=== PATIENT | male | born 1995 | race Caucasian/White ===

== ENCOUNTER 2019-12-21 11:21 | Observation (INO) | payer MEDICARE, MEDICAID, SELFPAY ==
[2019-12-21] VITALS (25 sets, daily range): BP systolic 78–135; BP diastolic 34–73; PULSE 67–138; RESP 14–30; TEMP 36.8; O2SAT 96–100; BMI 23.3
--- NOTE | 2019-12-21 11:38 | XR_ITS ---
WS: [id number] PORTABLE CHEST HISTORY: cough COMPARISON: 07/09/2019 Lungs are clear and well expanded. No pleural effusion or pneumothorax. Cardiac size: Normal. Mediastinum/Aorta: Normal mediastinum. No osseous abnormality seen. XR/XR chest 1V portable [id number] IMPRESSION: Unremarkable portable chest.
[2019-12-21 11:50] LABS: ABG PCO2 27.6 mmHg (35-45); ABG PH Result 7.23 (7.35-7.45); Base Excess ABG -14.4 mmol/L (-2.0-2.0); Blood Gas Allen Test Pos; Blood Gas Sample Site Radial, left; Blood Gas Sample Type Arterial; HCO3 ABG 11.5 mmol/L (22-26); Oxygen Device ROOM AIR
--- NOTE | 2019-12-21 11:52 | ED_ITS ---
HPI - Nausea/Vomiting/Diarrhea General: Chief complaint: Nausea/Vomiting/Diarrhea Stated complaint: POSS DKA Time Seen by Provider: 12/21/19 11:37 History of Present Illness: HPI Narrative: Salvatore is a 24-year-old male well-known to the ER. Came in today with nausea and vomiting and feeling like he is in diabetic ketoacidosis. He denies any diarrhea or fever. He denies any hematic emesis. He states his blood sugars have been erratic and he is currentl y using insulin pump. He denies cough, chest pain, fever or chills. He denies any other complaints or concerns. The patient has had DKA multiple times in the past. He states this is exactly what he feels like when he is in DKA. He felt fine yesterday but woke up with the symptoms this morning. Associated nausea: Yes Associated symtoms: Reports nausea; Denies altered mental status, change in vision, chest pain, diaphoresis, dizziness, dysuria, fatigue, headache(s), malaise, palpitations or syncope Review of Systems General: Reports: other (negative unless marked) Const: Reports: chills; Denies: fever, body aches, fatigue, malaise or diaphoresis Eyes: Denies: change in vision or blurry vision ENMT: Denies: throat pain, painful swallowing, hoarseness, ear pain, ear discharge, Change in hearing or nasal discharge Card: Denies: chest pain, palpitations, irregular heart rhythm, syncope, pre- syncope, shortness of breath on exertion or shortness of breath when lying down Resp: Reports: shortness of breath; Denies: productive cough, non-productive cough, wheezing, coughing up blood or chest congestion GI: Reports: abdominal pain, nausea and vomiting; Denies: vomiting blood, coffee grounds in vomit, diarrhea, constipation, cramping, blood in stool or black tarry stool : Denies: flank pain, difficulty urinating, painful urination, urinary frequency, urinary urgency, decreased urine ouput, urinary incontinence or blood in urine Musc: Denies: neck pain, back pain, extremity pain, extremity swelling, joint pain, joint swelling, joint warmth or joint stiffness Skin/Breast: Denies: rash, skin tenderness or yellow skin Neuro: Denies: headache, numbness in extremities, weakness in extremities, changes in sensation, lack of coordination, difficulty walking, dizziness, vertigo or confusion Endo: Denies: excessive thirst, tired all the time, cold intolerance, excessive sweating, flushing or hot flashes Garett/Lymph: Denies: easy bruising, easy bleeding, petechiae or enlarged lymph nodes All/Imm: Denies: hives, throat swelling, tongue swelling, facial swelling or acute wheezing PFSH ED PFSH: Medical History (Updated 12/21/19 @ 14:21 by Terry Hines MD) Diabetes mellitus GERD (gastroesophageal reflux disease) Type 1 diabetes Family History (Updated 12/21/19 @ 14:19 by Terry Hines MD) Other Diabetes Social History (Updated 12/21/19 @ 14:20 by Terry Hines MD) Smoking and tobacco status: former smoker Alcohol intake: never Substance/Drug Use: never Physical Exam Const: COMMON NORMALS: no apparent distress, oriented x3, no limitations, healthy appearing and well nourished EXAM LIMITATIONS: no altered mental status GENERAL APPEARANCE: cooperative, well kempt and well developed ORIENTATION/CONSCIOUSNESS: Yes awake HENMT: COMMON NORMALS: normocephalic, head/scalp atraumatic, hearing grossly normal bilaterally, external ears normal, EAC's normal, external nose normal and moist oral mucous membranes HEAD & SCALP: normal to inspection, normocephalic and atraumatic FACE & SINUS: normal facial exam and face symmetric NOSE: external nose normal and nares normal EXTERNAL EAR: Yes external ears normal EXTERNAL AUDITORY CANAL: EAC's normal MOUTH: oral and palatal mucosa normal and tongue normal Eye: COMMON NORMALS: PERRL, EOMs intact bilaterally, conjunctivae normal and no scleral icterus GENERAL EYE: normal appearance of both eyes and normal light reflex CONJUNCTIVA: Yes conjunctivae normal SCLERA: sclerae normal CORNEA: Yes corneas normal PUPIL: Yes PERRL DIRECT OPHTHALMOSCOPY: Yes normal light reflex Neck/C-Spine: COMMON NORMALS: full ROM, no lymphadenopathy, supple, no meningeal signs and no JVD GENERAL: Yes normal visual inspection and Yes trachea midline CERVICAL SPINE: Yes cervical ROM normal Chest: COMMONS NORMALS: inspection of chest normal and palpation of chest normal Resp: COMMON NORMALS: normal respiratory effort, no retractions, no use of accessory muscles and clear to auscultation bilaterally EFFORT & INSPECTION: Yes able to speak in complete sentences and Yes tachypneic AUSCULTATION: clear to auscultation bilaterally Cardio: COMMON NORMALS: no JVD, regular rate, regular rhythm, S1 normal heart sound, S2 normal heart sound, no gallops, no clicks, no murmurs and no rub JUGULAR VENOUS DISTENTION: no JVD RATE: regular rate RHYTHM: regular rhythm HEART SOUNDS: S1 normal and S2 normal GI: COMMON NORMALS: soft to palpation, no hepatosplenomegaly and no masses INSPECTION: Yes normal to inspection PALPATION: Yes soft, Yes tender (Mild diffusely) and Yes no hepatosplenomegaly : COMMON NORMALS: Yes no CVA tenderness BLADDER/KIDNEY EXAM: Yes no CVA tenderness Back/Pelvis: COMMON NORMALS: no CVA tenderness, thoracic and lumbar spine normal to inspection, no thoracic nor lumbar tenderness and thoraco-lumbar ROM normal Extremity: COMMON NORMALS: normal to inspection, full ROM, normal capillary refill, no joint enlargement, no clubbing, cyanosis or edema and no calf tenderness Neuro: COMMON NORMALS: oriented x3, CN's II-XII intact bilaterally, moves all extremities, no focal motor deficits and no sensory deficits noted MENINGEAL SIGNS: Yes no meningeal signs Psych: COMMON NORMALS: mental status grossly normal, thought process normal, cooperative, affect normal, speech normal and activity/motor behavior normal APPEARANCE: Yes well kempt SPEECH: Yes normal speech THOUGHT PROCESS: normal thought process Skin: COMMON NORMALS: no rashes or lesions noted, skin turgor normal, no jaundice, no petechiae and no mottling GENERAL SKIN EXAM: no rashes or lesions noted and turgor normal Course Vital Signs: Vital signs: Vital Signs Temperature 98.2 F 12/21/19 12:18 Pulse Rate 111 H 12/21/19 20:00 Respiratory Rate 23 H 12/21/19 20:00 Blood Pressure 95/47 12/21/19 20:00 Pulse Oximetry 96 12/21/19 14:58 MDM - Nausea/Vomiting/Diarrhea MDM Narrative: Medical decision making narrative: The case was reviewed with Dr. Hines. The patient comes in in DKA as he has in the past several times. We removed his insulin pump and we will start the hospital's DKA protocol. Patient be admitted to the ICU. Further care will be performed by Dr. Hines. Lab Data: Attestation: I reviewed the patient's lab results. Labs: Lab Results 12/21/19 12/21/19 12/21/19 Range/Units 11:38 11:46 12:10 WBC (4.0-10.0) 10^3/ uL RBC (4.1-5.3) 10^6/u L Hgb (11.7-16.6) g/dL Hct (42.0-52.0) % MCV (80-94) fL MCH (28.0-34.0) pg MCHC (30.0-36.0) g/dL RDW (12.1-15.1) % Plt Count (130-400) 10^3/c mm MPV (7.4-10.4) fL Neut % (Auto) % Lymph % (Auto) % [place] % (Auto) % Eos % (Auto) % Baso % (Auto) % Neut # (Auto) (1.8-7.7) 10^3/u L Lymph # (Auto) (0.8-4.8) 10^3/u L [place] # (Auto) (0.2-0.9) 10^3/u L Eos # (Auto) (0.0-0.8) 10^3/u L Baso # (Auto) (0.0-0.1) 10^3/u L Nucleated RBC % (a uto) % Nucleated RBCs # /100WBC Specimen Type Arterial Sample Site Radial, left ABG pH 7.23 L (7.35-7.45) ABG pCO2 27.6 L (35-45) mmHg ABG pO2 96.0 (80.0-100.0) mmH g ABG HCO3 11.5 L (22-26) mmol/L ABG Base Excess -14.4 L (-2.0-2.0) mmol/ L Hasmukh Test Pos Hematocrit 52.0 (42-52) % O2 Delivery Device Room air FiO2 21.0 % Energy Administrator ID cak Sodium (136-145) mmol/L Potassium (3.5-5.1) mmol/L Chloride (98-107) mmol/L Carbon Dioxide (22-29) mmol/L Anion Gap (5-19) BUN (6-20) mg/dL Creatinine (0.7-1.2) mg/dL GFR Calculation (90-130) mL/min Glucose (65-115) mg/dL POC Glucose 493 (70-110) mg/dL Calculated Osmolal ity (285-295) mOsm/k g Lactic Acid (0.5-2.2) mmol/L Calcium (8.5-10.5) mg/dL Magnesium (1.7-2.3) mg/dL Total Bilirubin (0.15-1.2) mg/dL AST (0-40) U/L ALT (0-41) U/L Alkaline Phosphata se (40-130) IU/L Troponin T Baselin e (0-15) ng/mL Total Protein (6.6-8.7) g/dL Albumin (3.5-5.2) g/dL Globulin (1.3-4.6) g/dL Lipase (13-60) U/L Urine Color (Yellow) Urine Appearance (CLEAR) Urine pH (5-7) Ur Specific Gravit y (1.005-1.030) Urine Protein (Negative) Urine Glucose (UA) (Normal) Urine Ketones (Negative) Urine Blood (Negative) Urine Nitrate (Negative) Urine Bilirubin (NEGATIVE) Urine Urobilinogen (Negative) mg/dL Ur Leukocyte Mini ase (Negative) Urine RBC (0-2) /hpf Urine WBC (0-5) /hpf Ur Squamous Epith Cells (0-5) Urine Bacteria (NONE) Urine Opiates Scre en (Negative) ng/mL Ur Barbiturates Sc reen (Negative) ng/mL Ur Phencyclidine S crn (Negative) ng/mL Ur Amphetamines Sc reen (Negative) ng/mL U Benzodiazepines Scrn (Negative) ng/mL Urine Cocaine Scre en (Negative) ng/mL U Marijuana (THC) Screen (Negative) ng/mL Ethyl Alcohol (0-10) mg/dL Serum Ketones (Negative) H. pylori IgG Anti body Negative (Negative) 12/21/19 12/21/19 12/21/19 Range/Units 12:10 12:10 12:10 WBC 14.8 H (4.0-10.0) 10^3/ uL RBC 5.48 H (4.1-5.3) 10^6/u L Hgb 16.5 (11.7-16.6) g/dL Hct 51.3 (42.0-52.0) % MCV 93.6 (80-94) fL MCH 30.1 (28.0-34.0) pg MCHC 32.2 (30.0-36.0) g/dL RDW 11.9 L (12.1-15.1) % Plt Count 249 (130-400) 10^3/c mm MPV 10.2 (7.4-10.4) fL Neut % (Auto) 93.8 % Lymph % (Auto) 2.8 % [place] % (Auto) 2.6 % Eos % (Auto) 0.0 % Baso % (Auto) 0.3 % Neut # (Auto) 13.9 H (1.8-7.7) 10^3/u L Lymph # (Auto) 0.4 L (0.8-4.8) 10^3/u L [place] # (Auto) 0.4 (0.2-0.9) 10^3/u L Eos # (Auto) 0.0 (0.0-0.8) 10^3/u L Baso # (Auto) 0.0 (0.0-0.1) 10^3/u L Nucleated RBC % (a uto) 0 % Nucleated RBCs # 0.0 /100WBC Specimen Type Sample Site ABG pH (7.35-7.45) ABG pCO2 (35-45) mmHg ABG pO2 (80.0-100.0) mmH g ABG HCO3 (22-26) mmol/L ABG Base Excess (-2.0-2.0) mmol/ L Hasmukh Test Hematocrit (42-52) % O2 Delivery Device FiO2 % Energy Administrator ID Sodium 132 L (136-145) mmol/L Potassium 5.4 H (3.5-5.1) mmol/L Chloride 90 L (98-107) mmol/L Carbon Dioxide 10 L (22-29) mmol/L Anion Gap 37.4 H (5-19) BUN 26 H (6-20) mg/dL Creatinine 1.2 (0.7-1.2) mg/dL GFR Calculation 75.7 L (90-130) mL/min Glucose 534 H* (65-115) mg/dL POC Glucose (70-110) mg/dL Calculated Osmolal ity 295 (285-295) mOsm/k g Lactic Acid 3.8 H (0.5-2.2) mmol/L Calcium 10.0 (8.5-10.5) mg/dL Magnesium 2.2 (1.7-2.3) mg/dL Total Bilirubin 1.2 (0.15-1.2) mg/dL AST 20 (0-40) U/L ALT 16 (0-41) U/L Alkaline Phosphata se 59 (40-130) IU/L Troponin T Baselin e (0-15) ng/mL Total Protein 7.6 (6.6-8.7) g/dL Albumin 4.9 (3.5-5.2) g/dL Globulin 2.7 (1.3-4.6) g/dL Lipase 7 L (13-60) U/L Urine Color (Yellow) Urine Appearance (CLEAR) Urine pH (5-7) Ur Specific Gravit y (1.005-1.030) Urine Protein (Negative) Urine Glucose (UA) (Normal) Urine Ketones (Negative) Urine Blood (Negative) Urine Nitrate (Negative) Urine Bilirubin (NEGATIVE) Urine Urobilinogen (Negative) mg/dL Ur Leukocyte Mini ase (Negative) Urine RBC (0-2) /hpf Urine WBC (0-5) /hpf Ur Squamous Epith Cells (0-5) Urine Bacteria (NONE) Urine Opiates Scre en (Negative) ng/mL Ur Barbiturates Sc reen (Negative) ng/mL Ur Phencyclidine S crn (Negative) ng/mL Ur Amphetamines Sc reen (Negative) ng/mL U Benzodiazepines Scrn (Negative) ng/mL Urine Cocaine Scre en (Negative) ng/mL U Marijuana (THC) Screen (Negative) ng/mL Ethyl Alcohol < 10 (0-10) mg/dL Serum Ketones (Negative) H. pylori IgG Anti body (Negative) 12/21/19 12/21/19 12/21/19 Range/Units 12:10 12:10 12:35 WBC (4.0-10.0) 10^3/ uL RBC (4.1-5.3) 10^6/u L Hgb (11.7-16.6) g/dL Hct (42.0-52.0) % MCV (80-94) fL MCH (28.0-34.0) pg MCHC (30.0-36.0) g/dL RDW (12.1-15.1) % Plt Count (130-400) 10^3/c mm MPV (7.4-10.4) fL Neut % (Auto) % Lymph % (Auto) % [place] % (Auto) % Eos % (Auto) % Baso % (Auto) % Neut # (Auto) (1.8-7.7) 10^3/u L Lymph # (Auto) (0.8-4.8) 10^3/u L [place] # (Auto) (0.2-0.9) 10^3/u L Eos # (Auto) (0.0-0.8) 10^3/u L Baso # (Auto) (0.0-0.1) 10^3/u L Nucleated RBC % (a uto) % Nucleated RBCs # /100WBC Specimen Type Sample Site ABG pH (7.35-7.45) ABG pCO2 (35-45) mmHg ABG pO2 (80.0-100.0) mmH g ABG HCO3 (22-26) mmol/L ABG Base Excess (-2.0-2.0) mmol/ L Hasmukh Test Hematocrit (42-52) % O2 Delivery Device FiO2 % Energy Administrator ID Sodium (136-145) mmol/L Potassium (3.5-5.1) mmol/L Chloride (98-107) mmol/L Carbon Dioxide (22-29) mmol/L Anion Gap (5-19) BUN (6-20) mg/dL Creatinine (0.7-1.2) mg/dL GFR Calculation (90-130) mL/min Glucose (65-115) mg/dL POC Glucose (70-110) mg/dL Calculated Osmolal ity (285-295) mOsm/k g Lactic Acid (0.5-2.2) mmol/L Calcium (8.5-10.5) mg/dL Magnesium (1.7-2.3) mg/dL Total Bilirubin (0.15-1.2) mg/dL AST (0-40) U/L ALT (0-41) U/L Alkaline Phosphata se (40-130) IU/L Troponin T Baselin e 12 (0-15) ng/mL Total Protein (6.6-8.7) g/dL Albumin (3.5-5.2) g/dL Globulin (1.3-4.6) g/dL Lipase (13-60) U/L Urine Color Straw (Yellow) Urine Appearance Clear (CLEAR) Urine pH 5 (5-7) Ur Specific Gravit y 1.020 (1.005-1.030) Urine Protein Neg (Negative) Urine Glucose (UA) 4+ H (Normal) Urine Ketones 2+ H (Negative) Urine Blood Neg (Negative) Urine Nitrate Negative (Negative) Urine Bilirubin Neg (NEGATIVE) Urine Urobilinogen Norm (Negative) mg/dL Ur Leukocyte Mini ase Negative (Negative) Urine RBC None (0-2) /hpf Urine WBC None (0-5) /hpf Ur Squamous Epith Cells None (0-5) Urine Bacteria Trace (NONE) Urine Opiates Scre en (Negative) ng/mL Ur Barbiturates Sc reen (Negative) ng/mL Ur Phencyclidine S crn (Negative) ng/mL Ur Amphetamines Sc reen (Negative) ng/mL U Benzodiazepines Scrn (Negative) ng/mL Urine Cocaine Scre en (Negative) ng/mL U Marijuana (THC) Screen (Negative) ng/mL Ethyl Alcohol (0-10) mg/dL Serum Ketones Positive H (Negative) H. pylori IgG Anti body (Negative) 12/21/19 Range/Units 12:35 WBC (4.0-10.0) 10^3/ uL RBC (4.1-5.3) 10^6/u L Hgb (11.7-16.6) g/dL Hct (42.0-52.0) % MCV (80-94) fL MCH (28.0-34.0) pg MCHC (30.0-36.0) g/dL RDW (12.1-15.1) % Plt Count (130-400) 10^3/c mm MPV (7.4-10.4) fL Neut % (Auto) % Lymph % (Auto) % [place] % (Auto) % Eos % (Auto) % Baso % (Auto) % Neut # (Auto) (1.8-7.7) 10^3/u L Lymph # (Auto) (0.8-4.8) 10^3/u L [place] # (Auto) (0.2-0.9) 10^3/u L Eos # (Auto) (0.0-0.8) 10^3/u L Baso # (Auto) (0.0-0.1) 10^3/u L Nucleated RBC % (a uto) % Nucleated RBCs # /100WBC Specimen Type Sample Site ABG pH (7.35-7.45) ABG pCO2 (35-45) mmHg ABG pO2 (80.0-100.0) mmH g ABG HCO3 (22-26) mmol/L ABG Base Excess (-2.0-2.0) mmol/ L Hasmukh Test Hematocrit (42-52) % O2 Delivery Device FiO2 % Energy Administrator ID Sodium (136-145) mmol/L Potassium (3.5-5.1) mmol/L Chloride (98-107) mmol/L Carbon Dioxide (22-29) mmol/L Anion Gap (5-19) BUN (6-20) mg/dL Creatinine (0.7-1.2) mg/dL GFR Calculation (90-130) mL/min Glucose (65-115) mg/dL POC Glucose (70-110) mg/dL Calculated Osmolal ity (285-295) mOsm/k g Lactic Acid (0.5-2.2) mmol/L Calcium (8.5-10.5) mg/dL Magnesium (1.7-2.3) mg/dL Total Bilirubin (0.15-1.2) mg/dL AST (0-40) U/L ALT (0-41) U/L Alkaline Phosphata se (40-130) IU/L Troponin T Baselin e (0-15) ng/mL Total Protein (6.6-8.7) g/dL Albumin (3.5-5.2) g/dL Globulin (1.3-4.6) g/dL Lipase (13-60) U/L Urine Color (Yellow) Urine Appearance (CLEAR) Urine pH (5-7) Ur Specific Gravit y (1.005-1.030) Urine Protein (Negative) Urine Glucose (UA) (Normal) Urine Ketones (Negative) Urine Blood (Negative) Urine Nitrate (Negative) Urine Bilirubin (NEGATIVE) Urine Urobilinogen (Negative) mg/dL Ur Leukocyte Mini ase (Negative) Urine RBC (0-2) /hpf Urine WBC (0-5) /hpf Ur Squamous Epith Cells (0-5) Urine Bacteria (NONE) Urine Opiates Scre en Negative (Negative) ng/mL Ur Barbiturates Sc reen Negative (Negative) ng/mL Ur Phencyclidine S crn Negative (Negative) ng/mL Ur Amphetamines Sc reen Negative (Negative) ng/mL U Benzodiazepines Scrn Negative (Negative) ng/mL Urine Cocaine Scre en Negative (Negative) ng/mL U Marijuana (THC) Screen Negative (Negative) ng/mL Ethyl Alcohol (0-10) mg/dL Serum Ketones (Negative) H. pylori IgG Anti body (Negative) Imaging Data^: CXR: My impression: No acute cardiopulmonary findings. EKG Data^: EKG 1: Attestation: I personally reviewed and interpreted this EKG as follows: EKG interpretation date: 12/21/19 EKG interpretation time: 12:03 Interpretation: Normal sinus rhythm at 105 beats a minute, incomplete right bundle branch block, normal intervals, no blocks. Discharge Plan Discharge Patient Disposition: Admitted As Inpatient Admit Provider: Terry Hines Clinical Impression: Diabetic ketoacidosis Qualifiers: Diabetes mellitus type: type 1 Diabetes mellitus complication detail: without coma Qualified Code(s): E10.10 - Type 1 diabetes mellitus with ketoacidosis without coma Condition: Stable Referrals: Anastasia Sebastian APN [Family Provider] - Discharge Date/Time: 12/21/19 14:40 Coding Level of Care Code ED Preventive Medicine Specialist for g Fwd Exam Comprehensive
[2019-12-21] MEDS: sodium chloride 0.9% 1,000 ML 999 ML IV ×2 (12:13→13:18)
[2019-12-21] MEDS: ondansetron 2 mg/ML SDV 2 mL 4 MG IVP ×2 (12:14→13:04)
[2019-12-21 12:23] LABS: Basophils % 0.3 %; Hematocrit 51.3 % (42.0-52.0); Hemoglobin 16.5 g/dL (11.7-16.6); Lymphocytes # 0.4 10^3/uL (0.8-4.8); Lymphocytes % 2.8 %; Mean Corpuscular HGB Conc 32.2 g/dL (30.0-36.0); Mean Corpuscular Hemoglobin 30.1 pg (28.0-34.0); Mean Corpuscular Volume 93.6 fL (80-94); Mean Platelet Volume 10.2 fL (7.4-10.4); Monocytes # 0.4 10^3/uL (0.2-0.9); Monocytes % 2.6 %; Neutrophils # 13.9 10^3/uL (1.8-7.7); Neutrophils % 93.8 %; Nucleated Red Blood Cells % 0 %; Platelet Count 249 10^3/cmm (130-400); Red Blood Count 5.48 10^6/uL (4.1-5.3); Red Cell Distribution Width 11.9 % (12.1-15.1); White Blood Count 14.8 10^3/uL (4.0-10.0)
[2019-12-21 12:37] LABS: Ketone (Acetest) Serum Positive (Negative)
[2019-12-21 12:39] LABS: H. Pylori IgG Antibody Negative (Negative)
[2019-12-21 12:40] LABS: Alanine Aminotransferase 16 U/L (0-41); Albumin Level 4.9 g/dL (3.5-5.2); Alkaline Phosphatase 59 IU/L (40-130); Anion Gap 37.4 (5-19); Blood Urea Nitrogen 26 mg/dL (6-20); Carbon Dioxide 10 mmol/L (22-29); Chloride 90 mmol/L (98-107); Creatinine Clr Calc Pharmacy 85.0873; Globulin 2.7 g/dL (1.3-4.6); Glomerular Filtration Rate 75.7 mL/min (90-130); Lipase 7 U/L (13-60); Magnesium 2.2 mg/dL (1.7-2.3); Osmolality Calculated 295 mOsm/kg (285-295); Potassium 5.4 mmol/L (3.5-5.1); Sodium 132 mmol/L (136-145); Total Bilirubin 1.2 mg/dL (0.15-1.2); Total Protein 7.6 g/dL (6.6-8.7)
[2019-12-21 12:42] LABS: Lactic Sepsis W/Reflex 3.8 mmol/L (0.5-2.2)
[2019-12-21 12:53] LABS: Alcohol Level < 10 mg/dL (0-10)
[2019-12-21 12:55] LABS: Aspartate Amino Transferase 20 U/L (0-40)
[2019-12-21 12:59] LABS: Glucose 534 mg/dL (65-115)
[2019-12-21 13:08] LABS: Troponin(5th) Baseline 12 ng/mL (0-15)
[2019-12-21 13:11] LABS: Amphetamines Screen Urine Negative (Negative); Bacteria Urine TRACE; Barbiturates Screen Urine Negative (Negative); Benzodiazepines Screen Urine Negative (Negative); Bilirubin Urine Neg (NEGATIVE); Blood Urine Neg (Negative); Cocaine Screen Urine Negative (Negative); Glucose Urine UA 4+ (Normal); Ketones Urine 2+ (Negative); Leukocyte Esterase Urine Negative (Negative); Nitrate Urine Negative (Negative); Opiate Screen Urine Negative (Negative); PCP Screen Urine Negative (Negative); Protein Urine Neg (Negative); THC Screen Urine Negative (Negative); Urine Appearance Clear (CLEAR); Urine Color Straw (Yellow); Urobilinogen Urine Norm (Negative); pH Urine 5 (5-7)
[2019-12-21 13:12] LABS: Add Urine Culture? No
[2019-12-21] MEDS: insulin regular-human 250 UNIT in sodium chloride 0.9% 250 ML IV (13:31)
[2019-12-21 14:03] LABS: Reflex Lactate Order REFLEX LACTIC ORDERD
--- NOTE | 2019-12-21 14:15 | PM.HP ---
Providers/Chief Complaint Admitting Physician: Terry Hines MD Chief Complaint: DKA History of Present Illness Salavtore Ott is a 24 year old male who reports that since yesterday he has been having some abdominal pain, and vomiting. He has history of frequent DKA admissions, although he has not had one since July. He reports he got an insulin pump around September and has been doing better in regards to this. He reports he has not had any trouble with insulin pump, and has not run out of any of the medicine. He denies any noncompliance with it. He does not know any of the pump settings. The pump has been discontinued in the emergency department for treatment of his DKA. He reports no recent fever, cough. He reports no hematemesis, melena, hematochezia. Review of Systems General: Reports: 10 or more systems reviewed and unremarkable except in HPI and below Const: Denies: fever Eyes: Denies: change in vision ENMT: Denies: throat pain Card: Denies: chest pain Resp: Denies: shortness of breath GI: Reports: abdominal pain, nausea and vomiting : Denies: flank pain Musc: Denies: neck pain Skin/Breast: Denies: rash Neuro: Denies: headache Psych: Denies: anxiety Endo: Denies: excessive urination Garett/Lymph: Denies: easy bruising All/Imm: Denies: hives Medications/Allergies Home Medications Medication Instructions Recorded Confirmed Last Taken Type insulin aspart (niacinamide) See Rx Instructions .ROUTE .COMPLEX 12/21/19 12/21/19 Unknown History [Fiasp U-100 Insulin] insulin pump cartridge [Omnipod 12/21/19 12/21/19 Unknown History Dash 5 Pack Pod] ondansetron HCl 4 mg PO Q8H PRN 12/21/19 12/21/19 12/21/19 10:00 History pantoprazole 40 mg PO DAILY 12/21/19 12/21/19 12/21/19 08:00 History Allergies Allergy/AdvReac Type Severity Reaction Status Date / Time promethazine [From Phenergan] Allergy Unknown Verified 12/21/19 11:45 PFSH Acute PFSH: Medical History (Updated 12/21/19 @ 14:21 by Terry Hines MD) Diabetes mellitus GERD (gastroesophageal reflux disease) Type 1 diabetes Family History (Updated 12/21/19 @ 14:19 by Terry Hines MD) Other Diabetes Social History (Updated 12/21/19 @ 14:20 by Terry Hines MD) Smoking and tobacco status: former smoker Alcohol intake: never Substance/Drug Use: never Vitals/I&O/Wt Last Vital Signs Temp 98.2 F 12/21/19 12:18 Pulse 67 12/21/19 14:11 Resp 18 12/21/19 14:11 BP 78/47 12/21/19 14:11 Pulse Ox 100 12/21/19 14:11 12/20/19 12/21/19 12/21/19 22:59 06:59 14:59 Intake Total 1000 / 1000 Balance 1000 / 1000 Weight last 48 hrs Weight 63.503 kg Physical Exam Narrative: EXAM NARRATIVE: General exam is a white male, conversant, asking for something to drink HEENT: Pupils equally round. Oropharynx clear. Neck supple no lymphadenopathy or thyromegaly Cardiovascular regular rate and rhythm without murmur Lungs clear Abdomen is soft positive bowel sounds, no obvious organomegaly was deferred Extremities no cyanosis clubbing or edema, cap refill brisk Skin no rash Neuro no focal deficits Data : 12/21/19 12:10 12/21/19 12:10 Other data: pH 7.23, PCO2 28, PO2 96 on room air. Lactic acid 3.8 Calcium 10.0 LFTs normal Lipase normal Urine with no evidence of infection Serum ketones positive A&P Assessment and plan (1) Diabetic ketoacidosis: IV fluid rehydration initiated in the emergency department. Continue. Transition to insulin drip Add D5 when sugar less than 160 Close follow-up of electrolytes, including magnesium Status: Acute Qualifiers: Diabetes mellitus complication detail: without coma Diabetes mellitus type: type 1 Qualified Code(s): E10.10 - Type 1 diabetes mellitus with ketoacidosis without coma (2) Diabetes mellitus: Insulin pump discontinued. Will request records regarding this to know what settings he is on prior to discharge Status: Acute (3) GERD (gastroesophageal reflux disease): Continue Protonix Status: Acute Additional A&P Information Full code No need for DVT prophylaxis, low risk Attestations Medical Necessity Statement*: Will need less than 2 midnight stay for evaluation and treatment of DKA Time Spent in Patient Care: Greater than 35 minutes Coding Level of Care Code Acute Senior User Experience Architect for Chg Fwd Diagnoses Diabetic ketoacidosis E10.10 Diabetes mellitus complication detail: without coma Diabetes mellitus type: type 1 Diabetes mellitus E11.9 GERD (gastroesophageal reflux disease) K21.9
[2019-12-21 14:21] LABS: Glucose Point of Care 528 mg/dL (70-110)
[2019-12-21 15:02] LABS: Glucose Point of Care 415 mg/dL (70-110)
[2019-12-21 15:53] LABS: Glucose Point of Care 350 mg/dL (70-110)
[2019-12-21 16:20] LABS: Glucose Point of Care 515 mg/dL (70-110)
[2019-12-21 16:20] LABS: Glucose Point of Care 493 mg/dL (70-110)
[2019-12-21 16:55] LABS: Glucose Point of Care 277 mg/dL (70-110)
--- NOTE | 2019-12-21 17:38 | ECG_ITS ---
Measurements Intervals [place] Rate: 105 P: 77 [place]: 108 QRS: 67 QRSD: 78 T: 52 QT: 319 QTc: 422 SINUS TACHYCARDIA WITH SHORT [place] INTERVAL POSSIBLE LEFT ATRIAL ENLARGEMENT [-0.1mV P WAVE IN V1/V2] ABNORMAL RHYTHM ECG Compared to ECG 07/08/2019 12:26:20 Short [place] interval now present Electronically Signed On 12-21-2019 18:26:52 CDT by Boris Lyons M.D. [email or web address]
[2019-12-21 18:00] LABS: Glucose Point of Care 245 mg/dL (70-110)
[2019-12-21 18:51] LABS: Glucose Point of Care 224 mg/dL (70-110)
[2019-12-21 19:05] LABS: Anion Gap 23.4 (5-19); Blood Urea Nitrogen 21 mg/dL (6-20); Calcium 9.1 mg/dL (8.5-10.5); Carbon Dioxide 14 mmol/L (22-29); Chloride 100 mmol/L (98-107); Glomerular Filtration Rate 93.4 mL/min (90-130); Glucose 258 mg/dL (65-115); Osmolality Calculated 281 mOsm/kg (285-295); Potassium 4.4 mmol/L (3.5-5.1); Sodium 133 mmol/L (136-145)
[2019-12-21 20:15] LABS: Glucose Point of Care 199 mg/dL (70-110)
--- NOTE | 2019-12-21 20:26 | PC.NURSE ---
Pt BG cause for titration to 10 ml/hr. Pt was at 11 ml/hr at shift change. MAR titration sheet does not show titrations, but changes in rate were documented on paper.
[2019-12-21 21:17] LABS: Glucose Point of Care 153 mg/dL (70-110)
[2019-12-21 22:32] LABS: Glucose Point of Care 120 mg/dL (70-110)
[2019-12-21 22:59] LABS: Glucose Point of Care 102 mg/dL (70-110)
[2019-12-22] VITALS (26 sets, daily range): BP systolic 78–140; BP diastolic 29–88; PULSE 96–124; RESP 0–26; BMI 23.3
[2019-12-22 00:18] LABS: Glucose Point of Care 81 mg/dL (70-110)
[2019-12-22] MEDS: sodium chlor 0.45% +KCl 20 mEq 20 MEQ/1,000 ML BAG 125 MEQ IV (01:12)
[2019-12-22 01:17] LABS: Glucose Point of Care 89 mg/dL (70-110)
[2019-12-22 02:38] LABS: Glucose Point of Care 114 mg/dL (70-110)
[2019-12-22 04:19] LABS: Glucose Point of Care 116 mg/dL (70-110)
[2019-12-22 05:10] LABS: Glucose Point of Care 118 mg/dL (70-110)
[2019-12-22 05:21] LABS: Basophils % 0.2 %; Eosinophils % 0.1 %; Hematocrit 40.8 % (42.0-52.0); Lymphocytes # 1.1 10^3/uL (0.8-4.8); Lymphocytes % 9.2 %; Mean Corpuscular HGB Conc 34.3 g/dL (30.0-36.0); Mean Corpuscular Volume 87.6 fL (80-94); Mean Platelet Volume 9.8 fL (7.4-10.4); Monocytes # 0.8 10^3/uL (0.2-0.9); Monocytes % 6.9 %; Neutrophils # 9.7 10^3/uL (1.8-7.7); Neutrophils % 83.3 %; Nucleated Red Blood Cells % 0 %; Platelet Count 253 10^3/cmm (130-400); Red Blood Count 4.66 10^6/uL (4.1-5.3); Red Cell Distribution Width 11.9 % (12.1-15.1); White Blood Count 11.7 10^3/uL (4.0-10.0)
[2019-12-22 05:40] LABS: Glucose Point of Care 114 mg/dL (70-110)
[2019-12-22 05:46] LABS: Anion Gap 19.3 (5-19); Blood Urea Nitrogen 13 mg/dL (6-20); Calcium 8.8 mg/dL (8.5-10.5); Carbon Dioxide 18 mmol/L (22-29); Chloride 102 mmol/L (98-107); Glucose 118 mg/dL (65-115); Magnesium 1.9 mg/dL (1.7-2.3); Osmolality Calculated 277 mOsm/kg (285-295); Potassium 4.3 mmol/L (3.5-5.1); Sodium 135 mmol/L (136-145)
[2019-12-22 06:12] LABS: Glucose Point of Care 122 mg/dL (70-110)
[2019-12-22 07:12] LABS: Glucose Point of Care 129 mg/dL (70-110)
[2019-12-22] MEDS: pantoprazole DR 40 mg Tablet PO (07:48)
--- NOTE | 2019-12-22 07:49 | PC.NURSE ---
am protonix given with breakfast to assist with any gi upset
[2019-12-22 08:07] LABS: Glucose Point of Care 164 mg/dL (70-110)
[2019-12-22 08:53] LABS: Glucose Point of Care 209 mg/dL (70-110)
[2019-12-22 10:12] LABS: Glucose Point of Care 250 mg/dL (70-110)
[2019-12-22 11:11] LABS: Glucose Point of Care 239 mg/dL (70-110)
[2019-12-22 14:30] LABS: Anion Gap 13.1 (5-19); Blood Urea Nitrogen 15 mg/dL (6-20); Carbon Dioxide 23 mmol/L (22-29); Chloride 101 mmol/L (98-107); Glomerular Filtration Rate 105.5 mL/min (90-130); Glucose 254 mg/dL (65-115); Osmolality Calculated 281 mOsm/kg (285-295); Potassium 4.1 mmol/L (3.5-5.1); Sodium 133 mmol/L (136-145)
--- NOTE | 2019-12-22 14:36 | P.DS_ITS ---
Discharge Providers Date of Admission: 12/21/19 12:49 Date of Discharge: December 22, 2019 Attending Provider at Admission: Terry Hines MD Attending Provider at Discharge: Terry Hines MD Diagnoses at Discharge Discharge Diagnosis (1) Diabetic ketoacidosis: Status: Acute Problem details: Gap is closed. His insulin pump has resumed, which is set at 3 units/h. We discussed his boluses which he is continuing. He will call and follow-up with his operating room assistant as soon as possible. Qualifiers: Diabetes mellitus complication detail: without coma Diabetes mellitus type: type 1 Qualified Code(s): E10.10 - Type 1 diabetes mellitus with ketoa cidosis without coma (2) Diabetes mellitus: Status: Acute Problem details: Resolved (3) GERD (gastroesophageal reflux disease): Status: Acute Reason for Visit Reason for Visit: Reason For Visit: DKA Hospital Course Hospital Course: Salvatore presented to the hospital with abdominal pain, elevated sugar and was found to be in DKA. He had not had any episodes of DKA in the last 3 to 4 months since his insulin pump was started. He was treated in a standard fashion with fluids, insulin drip. After his anion gap closed, his own insulin pump was restarted. He was able to tolerate eating and drinking without vomiting. It was thought he could be discharged home, with close follow-up with endocrine. Physical Exam Narrative: EXAM NARRATIVE: General exam is no apparent distress Cardiovascular regular rate and rhythm without murmur Lungs clear Abdomen is soft, positive bowel sounds Extremities no cyanosis clubbing or edema Discharge Data 2 Data Completed and Pending: Completed Studies During Hospitalization Category Date Time Status XR chest 1V merry ble [id number] Stat Exams 12/21/19 11:38 Completed Labs from last 24 hours 12/22/19 12/22/19 12/22/19 13:56 11:08 10:08 WBC RBC Hgb Hct MCV MCH MCHC RDW Plt Count MPV Neut % (Auto) Lymph % (Auto) [place] % (Auto) Eos % (Auto) Baso % (Auto) Neut # (Auto) Lymph # (Auto) [place] # (Auto) Eos # (Auto) Baso # (Auto) Nucleated RBC % (a uto) Nucleated RBCs # Sodium 133 L Potassium 4.1 Chloride 101 Carbon Dioxide 23 Anion Gap 13.1 BUN 15 Creatinine 0.9 GFR Calculation 105.5 Glucose 254 H POC Glucose 239 250 Calculated Osmolal ity 281 L Calcium 9.0 Magnesium 12/22/19 12/22/19 12/22/19 08:51 08:05 07:08 WBC RBC Hgb Hct MCV MCH MCHC RDW Plt Count MPV Neut % (Auto) Lymph % (Auto) [place] % (Auto) Eos % (Auto) Baso % (Auto) Neut # (Auto) Lymph # (Auto) [place] # (Auto) Eos # (Auto) Baso # (Auto) Nucleated RBC % (a uto) Nucleated RBCs # Sodium Potassium Chloride Carbon Dioxide Anion Gap BUN Creatinine GFR Calculation Glucose POC Glucose 209 164 129 Calculated Osmolal ity Calcium Magnesium 12/22/19 12/22/19 12/22/19 06:08 05:07 04:18 WBC RBC Hgb Hct MCV MCH MCHC RDW Plt Count MPV Neut % (Auto) Lymph % (Auto) [place] % (Auto) Eos % (Auto) Baso % (Auto) Neut # (Auto) Lymph # (Auto) [place] # (Auto) Eos # (Auto) Baso # (Auto) Nucleated RBC % (a uto) Nucleated RBCs # Sodium Potassium Chloride Carbon Dioxide Anion Gap BUN Creatinine GFR Calculation Glucose POC Glucose 122 118 Calculated Osmolal ity Calcium Magnesium 1.9 12/22/19 12/22/19 12/22/19 04:18 04:18 04:16 WBC 11.7 H RBC 4.66 Hgb 14.0 Hct 40.8 L MCV 87.6 D MCH 30.0 MCHC 34.3 D RDW 11.9 L Plt Count 253 MPV 9.8 Neut % (Auto) 83.3 Lymph % (Auto) 9.2 [place] % (Auto) 6.9 Eos % (Auto) 0.1 Baso % (Auto) 0.2 Neut # (Auto) 9.7 H Lymph # (Auto) 1.1 [place] # (Auto) 0.8 Eos # (Auto) 0.0 Baso # (Auto) 0.0 Nucleated RBC % (a uto) 0 Nucleated RBCs # 0.0 Sodium 135 L Potassium 4.3 Chloride 102 Carbon Dioxide 18 L Anion Gap 19.3 H BUN 13 Creatinine 0.7 GFR Calculation 141.0 H Glucose 118 H POC Glucose 116 Calculated Osmolal ity 277 L Calcium 8.8 Magnesium 12/22/19 12/22/1912/21/20 03:22 02:22 01:13 WBC RBC Hgb Hct MCV MCH MCHC RDW Plt Count MPV Neut % (Auto) Lymph % (Auto) [place] % (Auto) Eos % (Auto) Baso % (Auto) Neut # (Auto) Lymph # (Auto) [place] # (Auto) Eos # (Auto) Baso # (Auto) Nucleated RBC % (a uto) Nucleated RBCs # Sodium Potassium Chloride Carbon Dioxide Anion Gap BUN Creatinine GFR Calculation Glucose POC Glucose 114 114 89 Calculated Osmolal ity Calcium Magnesium 12/22/19 12/21/19 12/21/19 00:15 22:56 22:08 WBC RBC Hgb Hct MCV MCH MCHC RDW Plt Count MPV Neut % (Auto) Lymph % (Auto) [place] % (Auto) Eos % (Auto) Baso % (Auto) Neut # (Auto) Lymph # (Auto) [place] # (Auto) Eos # (Auto) Baso # (Auto) Nucleated RBC % (a uto) Nucleated RBCs # Sodium Potassium Chloride Carbon Dioxide Anion Gap BUN Creatinine GFR Calculation Glucose POC Glucose 81 102 120 Calculated Osmolal ity Calcium Magnesium 12/21/19 12/21/19 12/21/19 21:14 20:12 18:48 WBC RBC Hgb Hct MCV MCH MCHC RDW Plt Count MPV Neut % (Auto) Lymph % (Auto) [place] % (Auto) Eos % (Auto) Baso % (Auto) Neut # (Auto) Lymph # (Auto) [place] # (Auto) Eos # (Auto) Baso # (Auto) Nucleated RBC % (a uto) Nucleated RBCs # Sodium Potassium Chloride Carbon Dioxide Anion Gap BUN Creatinine GFR Calculation Glucose POC Glucose 153 199 224 Calculated Osmolal ity Calcium Magnesium 12/21/19 12/21/19 12/21/19 18:09 17:56 16:53 WBC RBC Hgb Hct MCV MCH MCHC RDW Plt Count MPV Neut % (Auto) Lymph % (Auto) [place] % (Auto) Eos % (Auto) Baso % (Auto) Neut # (Auto) Lymph # (Auto) [place] # (Auto) Eos # (Auto) Baso # (Auto) Nucleated RBC % (a uto) Nucleated RBCs # Sodium 133 L Potassium 4.4 Chloride 100 Carbon Dioxide 14 L Anion Gap 23.4 H BUN 21 H Creatinine 1.0 GFR Calculation 93.4 Glucose 258 H POC Glucose 245 277 Calculated Osmolal ity 281 L Calcium 9.1 Magnesium 2.0 12/21/19 12/21/19 12/21/19 15:48 14:59 13:46 WBC RBC Hgb Hct MCV MCH MCHC RDW Plt Count MPV Neut % (Auto) Lymph % (Auto) [place] % (Auto) Eos % (Auto) Baso % (Auto) Neut # (Auto) Lymph # (Auto) [place] # (Auto) Eos # (Auto) Baso # (Auto) Nucleated RBC % (a uto) Nucleated RBCs # Sodium Potassium Chloride Carbon Dioxide Anion Gap BUN Creatinine GFR Calculation Glucose POC Glucose 350 415 515 Calculated Osmolal ity Calcium Magnesium 12/21/19 11:46 WBC RBC Hgb Hct MCV MCH MCHC RDW Plt Count MPV Neut % (Auto) Lymph % (Auto) [place] % (Auto) Eos % (Auto) Baso % (Auto) Neut # (Auto) Lymph # (Auto) [place] # (Auto) Eos # (Auto) Baso # (Auto) Nucleated RBC % (a uto) Nucleated RBCs # Sodium Potassium Chloride Carbon Dioxide Anion Gap BUN Creatinine GFR Calculation Glucose POC Glucose 493 Calculated Osmolal ity Calcium Magnesium Vitals: Last Vital Signs Temp 98.2 F 12/21/19 12:18 Pulse 97 12/22/19 12:00 Resp 16 12/22/19 12:00 BP 112/69 12/22/19 12:00 Pulse Ox 96 12/21/19 14:58 Discharge Plan Discharge Patient Disposition: Home, Self-Care Condition: Stable Prescriptions: Continued ondansetron HCl 4 mg tablet 4 mg PO Q8H PRN (Reason: Nausea) RF: 0 pantoprazole 40 mg tablet,delayed release (DR/EC) 40 mg PO DAILY RF: 0 (DME) Omnipod Dash 5 Pack Pod Cartridge SUBCUT RF: 0 Fiasp U-100 Insulin 100 unit/mL solution See Rx Instructions .ROUTE .COMPLEX RF: 0 Discharge Orders: Discharge Order (Routine); Ordered 12/22/19 Ordered By: Terry Hines Referrals: Anastasia Sebastian APN [Family Provider] - 4-7 days Discharge Diet: Diabetic Discharge Activity: Increase activity as tolerated Activity Restrictions/Additional Instructions: Follow-up with your operating room assistant as soon as possible secondary to your episode of DKA. Take all medicine as prescribed. Discharge Attestations Time Spent in Discharge Care*: greater than 30 min Quality Metrics Clinical Quality Measures During this hospital stay, did patient experience: None Coding Level of Care Code Acute [place] Line Attendant for Chg Fwd Diagnoses Diabetic ketoacidosis E10.10 Diabetes mellitus complication detail: without coma Diabetes mellitus type: type 1 Diabetes mellitus E11.9 GERD (gastroesophageal reflux disease) K21.9
--- NOTE | 2019-12-22 15:16 | PC.NURSE ---
discharge nurse instructed patient on follow up appointments, and medications to continue. He verbalized understanding. IV discontinued with cath intact and site is asymptomatic.
== END 2019-12-22 16:00 | disposition home or self-care (01) ==
LOC: ER 13:02 → ICU 13:36
PROVIDERS: Admitting Provider Internal Medicine; Emergency Provider Emergency Medicine; Family Provider Nurse Practitioner Family; Visit Provider Internal Medicine
DX: E10.10 Type 1 diabetes mellitus with ketoacidosis without coma (principal); K21.9 Gastro-esophageal reflux disease without esophagitis; Z83.3 Family history of diabetes mellitus
CPT/HCPCS: 12345; 36415; 36416; 36600; 71045; 80048; 80053; 80306; 80307; 81001; 82009; 82803; 82962; 83605; 83690; 83735; 84484; 85025; 86677; 93005; 96361; 96365; 96366; 96372; 96374; 96375; 96376; 99283; 99285; G0378; J1815; J2405; J7030; J7050

== ENCOUNTER 2020-03-16 12:25 | Inpatient (IN) | payer MEDICARE, MEDICAID, SELFPAY ==
[2020-03-16] VITALS (71 sets, daily range): BP systolic 86–134; BP diastolic 49–86; PULSE 90–156; RESP 15–30; TEMP 36.3–37.1; O2SAT 94–100; BMI 29.9
--- NOTE | 2020-03-16 12:41 | ED_ITS ---
HPI - Nausea/Vomiting/Diarrhea General: Chief complaint: Abdominal Pain Stated complaint: N/V Time Seen by Provider: 03/16/20 12:27 History of Present Illness: HPI Narrative: Patient began to experience nausea and vomiting along with abdominal pain at approximately 5:30 this morning. There has been no reported fever or diarrhea. MD elicited complaint: nausea, vomiting and abdominal pain Onset (ago): hour(s) Associated nausea: Yes Associated abdominal pain: Yes Location of pain: Diffuse Associated symtoms: Reports nausea Review of Systems General: Reports: 10 or more systems reviewed and unremarkable except in HPI and below GI: Reports: nausea PFSH ED PFSH: Medical History Diabetes mellitus Resolved GERD (gastroesophageal reflux disease) Type 1 diabetes Family History Other Diabetes Social History Smoking and tobacco status: former smoker Alcohol intake: never Physical Exam Const: COMMON NORMALS: no acute distress, patient oriented x3, no limitations and alert HENMT: COMMON NORMALS: normocephalic, atraumatic, external ears normal and Normal external nose present HEAD & SCALP: normocephalic and atraumatic FACE & SINUS: normal facial exam NOSE: Normal external nose present EXTERNAL EAR: Yes external ears normal MOUTH: Normal oral and palatal mucosa present Neck/C-Spine: COMMON NORMALS: full ROM, no lymphadenopathy, supple, no meningeal signs and no JVD GENERAL: Yes normal visual inspection Resp: COMMON NORMALS: normal respiratory effort, No retractions, No use of accessory muscles and clear to auscultation bilaterally AUSCULTATION: clear to auscultation bilaterally Cardio: COMMON NORMALS: no JVD, regular rate and regular rhythm RATE: regular rate RHYTHM: regular rhythm GI: COMMON NORMALS: Normal to inspection, nondistended, normoactive bowel sounds present, Soft to palpation, non-tender, No hepatosplenomegaly present and no masses INSPECTION: Yes normal to inspection AUSCULTATION: Yes normoactive bowel sounds PALPATION: Yes Soft to palpation and Yes No hepatosplenomegaly present PERCUSSION: normal to percussion : COMMON NORMALS: Yes no CVA tenderness BLADDER/KIDNEY EXAM: Yes no CVA tenderness Back/Pelvis: COMMON NORMALS: no CVA tenderness, thoracic and lumbar spine normal to inspection, no thoracic nor lumbar tenderness, thoraco-lumbar ROM normal and straight leg raise negative bilaterally Extremity: COMMON NORMALS: normal to inspection, full ROM, capillary refill normal, no joint enlargement, no clubbing, cyanosis or edema, no calf tenderness and no pedal edema Neuro: COMMON NORMALS: patient oriented x3, moves all extremities, no focal motor deficits and no sensory deficits noted SENSORIUM/ORIENTATION: Yes alert MENINGEAL SIGNS: Yes no meningeal signs Psych: COMMON NORMALS: mental status grossly normal, Normal thought process present, cooperative, normal affect and speech normal SPEECH: Yes normal speech THOUGHT PROCESS: Normal thought process present Skin: COMMON NORMALS: no rashes or lesions noted, no wounds, turgor normal, no jaundice, no petechiae and no mottling GENERAL SKIN EXAM: no rashes or lesions noted and turgor normal Course Vital Signs: Vital signs: Vital Signs Temperature 98.7 F 03/16/20 12:29 Pulse Rate 100 03/16/20 13:59 Respiratory Rate 18 03/16/20 13:59 Blood Pressure 98/56 03/16/20 13:59 Pulse Oximetry 97 03/16/20 13:59 MDM - Nausea/Vomiting/Diarrhea Lab Data: Labs: Lab Results 03/16/20 03/16/20 03/16/20 Range/Units 12:41 12:55 13:31 WBC 15.1 H (4.0-10.0) 10^3/ uL RBC 5.27 (4.1-5.3) 10^6/u L Hgb 16.1 (11.7-16.6) g/dL Hct 50.0 (42.0-52.0) % MCV 94.9 H (80-94) fL MCH 30.6 (28.0-34.0) pg MCHC 32.2 (30.0-36.0) g/dL RDW 12.7 (12.1-15.1) % Plt Count 226 (130-400) 10^3/c mm MPV 10.8 H (7.4-10.4) fL Neut % (Auto) 94.1 % Lymph % (Auto) 2.3 % [place] % (Auto) 2.9 % Eos % (Auto) 0.0 % Baso % (Auto) 0.3 % Neut # (Auto) 14.24 H (1.8-7.7) 10^3/u L Lymph # (Auto) 0.4 L (0.8-4.8) 10^3/u L [place] # (Auto) 0.4 (0.2-0.9) 10^3/u L Eos # (Auto) 0.0 (0.0-0.8) 10^3/u L Baso # (Auto) 0.0 (0.0-0.1) 10^3/u L Nucleated RBC % (a uto) 0 % Nucleated RBCs # 0.0 /100WBC Specimen Type Arterial Sample Site Brachial, right ABG pH 7.20 L (7.35-7.45) ABG pCO2 25.1 L (35-45) mmHg ABG pO2 91.8 (80.0-100.0) mmH g ABG HCO3 9.9 L (22-26) mmol/L ABG Base Excess -16.2 L (-2.0-2.0) mmol/ L Hasmukh Test N/a Hematocrit 51.0 (42-52) % O2 Delivery Device Room air FiO2 21.0 % Filter Bed Placer ID amh Sodium (136-145) mmol/L Potassium (3.5-5.1) mmol/L Chloride (98-107) mmol/L Carbon Dioxide (22-29) mmol/L Anion Gap (5-19) BUN (6-20) mg/dL Creatinine (0.7-1.2) mg/dL GFR Calculation (90-130) mL/min Glucose (65-115) mg/dL POC Glucose 505 (70-110) mg/dL Calculated Osmolal ity (285-295) mOsm/k g Lactate (0.5-2.2) mmol/L Calcium (8.5-10.5) mg/dL Total Bilirubin (0.15-1.2) mg/dL AST (0-40) U/L ALT (0-41) U/L Alkaline Phosphata se (40-130) IU/L Total Protein (6.6-8.7) g/dL Albumin (3.5-5.2) g/dL Globulin (1.3-4.6) g/dL Lipase (13-60) U/L Urine Color (Yellow) Urine Appearance (CLEAR) Urine pH (5-7) Ur Specific Gravit y (1.005-1.030) Urine Protein (Negative) Urine Glucose (UA) (Normal) Urine Ketones (Negative) Urine Blood (Negative) Urine Nitrate (Negative) Urine Bilirubin (NEGATIVE) Urine Urobilinogen (Negative) mg/dL Ur Leukocyte Mini ase (Negative) Urine Opiates Scre en (Negative) ng/mL Ur Barbiturates Sc reen (Negative) ng/mL Ur Phencyclidine S crn (Negative) ng/mL Ur Amphetamines Sc reen (Negative) ng/mL U Benzodiazepines Scrn (Negative) ng/mL Urine Cocaine Scre en (Negative) ng/mL U Marijuana (THC) Screen (Negative) ng/mL Ethyl Alcohol (0-10) mg/dL Serum Ketones (Negative) 03/16/20 03/16/20 03/16/20 Range/Units 13:31 13:31 13:31 WBC (4.0-10.0) 10^3/ uL RBC (4.1-5.3) 10^6/u L Hgb (11.7-16.6) g/dL Hct (42.0-52.0) % MCV (80-94) fL MCH (28.0-34.0) pg MCHC (30.0-36.0) g/dL RDW (12.1-15.1) % Plt Count (130-400) 10^3/c mm MPV (7.4-10.4) fL Neut % (Auto) % Lymph % (Auto) % [place] % (Auto) % Eos % (Auto) % Baso % (Auto) % Neut # (Auto) (1.8-7.7) 10^3/u L Lymph # (Auto) (0.8-4.8) 10^3/u L [place] # (Auto) (0.2-0.9) 10^3/u L Eos # (Auto) (0.0-0.8) 10^3/u L Baso # (Auto) (0.0-0.1) 10^3/u L Nucleated RBC % (a uto) % Nucleated RBCs # /100WBC Specimen Type Sample Site ABG pH (7.35-7.45) ABG pCO2 (35-45) mmHg ABG pO2 (80.0-100.0) mmH g ABG HCO3 (22-26) mmol/L ABG Base Excess (-2.0-2.0) mmol/ L Hasmukh Test Hematocrit (42-52) % O2 Delivery Device FiO2 % Filter Bed Placer ID Sodium 137 (136-145) mmol/L Potassium 5.5 H (3.5-5.1) mmol/L Chloride 97 L (98-107) mmol/L Carbon Dioxide 9 L (22-29) mmol/L Anion Gap 36.5 H (5-19) BUN 21 H (6-20) mg/dL Creatinine 1.1 (0.7-1.2) mg/dL GFR Calculation 83.7 L (90-130) mL/min Glucose 507 H* (65-115) mg/dL POC Glucose (70-110) mg/dL Calculated Osmolal ity 303 H (285-295) mOsm/k g Lactate 3.0 H (0.5-2.2) mmol/L Calcium 10.1 (8.5-10.5) mg/dL Total Bilirubin 0.7 (0.15-1.2) mg/dL AST 16 (0-40) U/L ALT 14 (0-41) U/L Alkaline Phosphata se 58 (40-130) IU/L Total Protein 8.0 (6.6-8.7) g/dL Albumin 5.0 (3.5-5.2) g/dL Globulin 3.0 (1.3-4.6) g/dL Lipase 10 L (13-60) U/L Urine Color (Yellow) Urine Appearance (CLEAR) Urine pH (5-7) Ur Specific Gravit y (1.005-1.030) Urine Protein (Negative) Urine Glucose (UA) (Normal) Urine Ketones (Negative) Urine Blood (Negative) Urine Nitrate (Negative) Urine Bilirubin (NEGATIVE) Urine Urobilinogen (Negative) mg/dL Ur Leukocyte Mini ase (Negative) Urine Opiates Scre en (Negative) ng/mL Ur Barbiturates Sc reen (Negative) ng/mL Ur Phencyclidine S crn (Negative) ng/mL Ur Amphetamines Sc reen (Negative) ng/mL U Benzodiazepines Scrn (Negative) ng/mL Urine Cocaine Scre en (Negative) ng/mL U Marijuana (THC) Screen (Negative) ng/mL Ethyl Alcohol < 10 (0-10) mg/dL Serum Ketones Positive H (Negative) 03/16/20 03/16/20 03/16/20 Range/Units 14:05 14:05 14:47 WBC (4.0-10.0) 10^3/ uL RBC (4.1-5.3) 10^6/u L Hgb (11.7-16.6) g/dL Hct (42.0-52.0) % MCV (80-94) fL MCH (28.0-34.0) pg MCHC (30.0-36.0) g/dL RDW (12.1-15.1) % Plt Count (130-400) 10^3/c mm MPV (7.4-10.4) fL Neut % (Auto) % Lymph % (Auto) % [place] % (Auto) % Eos % (Auto) % Baso % (Auto) % Neut # (Auto) (1.8-7.7) 10^3/u L Lymph # (Auto) (0.8-4.8) 10^3/u L [place] # (Auto) (0.2-0.9) 10^3/u L Eos # (Auto) (0.0-0.8) 10^3/u L Baso # (Auto) (0.0-0.1) 10^3/u L Nucleated RBC % (a uto) % Nucleated RBCs # /100WBC Specimen Type Sample Site ABG pH (7.35-7.45) ABG pCO2 (35-45) mmHg ABG pO2 (80.0-100.0) mmH g ABG HCO3 (22-26) mmol/L ABG Base Excess (-2.0-2.0) mmol/ L Hasmukh Test Hematocrit (42-52) % O2 Delivery Device FiO2 % Filter Bed Placer ID Sodium (136-145) mmol/L Potassium (3.5-5.1) mmol/L Chloride (98-107) mmol/L Carbon Dioxide (22-29) mmol/L Anion Gap (5-19) BUN (6-20) mg/dL Creatinine (0.7-1.2) mg/dL GFR Calculation (90-130) mL/min Glucose (65-115) mg/dL POC Glucose 485 (70-110) mg/dL Calculated Osmolal ity (285-295) mOsm/k g Lactate (0.5-2.2) mmol/L Calcium (8.5-10.5) mg/dL Total Bilirubin (0.15-1.2) mg/dL AST (0-40) U/L ALT (0-41) U/L Alkaline Phosphata se (40-130) IU/L Total Protein (6.6-8.7) g/dL Albumin (3.5-5.2) g/dL Globulin (1.3-4.6) g/dL Lipase (13-60) U/L Urine Color Straw (Yellow) Urine Appearance Clear (CLEAR) Urine pH 5 (5-7) Ur Specific Gravit y 1.020 (1.005-1.030) Urine Protein Neg (Negative) Urine Glucose (UA) 4+ H (Normal) Urine Ketones 3+ H (Negative) Urine Blood Neg (Negative) Urine Nitrate Negative (Negative) Urine Bilirubin Neg (NEGATIVE) Urine Urobilinogen Norm (Negative) mg/dL Ur Leukocyte Mini ase Negative (Negative) Urine Opiates Scre en Negative (Negative) ng/mL Ur Barbiturates Sc reen Negative (Negative) ng/mL Ur Phencyclidine S crn Negative (Negative) ng/mL Ur Amphetamines Sc reen Negative (Negative) ng/mL U Benzodiazepines Scrn Negative (Negative) ng/mL Urine Cocaine Scre en Negative (Negative) ng/mL U Marijuana (THC) Screen Positive H (Negative) ng/mL Ethyl Alcohol (0-10) mg/dL Serum Ketones (Negative) Discharge Plan Discharge Patient Disposition: Admitted As Inpatient Clinical Impression: Hyperglycemia, Marijuana use DKA (diabetic ketoacidoses) Qualifiers: Diabetes mellitus type: type 1 Diabetes mellitus complication detail: without coma Qualified Code(s): E10.10 - Type 1 diabetes mellitus with ketoacidosis without coma Nausea & vomiting Qualifiers: Vomiting type: unspecified Vomiting Intractability: intractable Qualified Code(s): R11.2 - Nausea with vomiting, unspecified Condition: Fair Referrals: Anastasia Sebastian APN [Family Provider] - Coding Level of Care Code ED Associate Project Manager for g Fwd Exam Comprehensive
[2020-03-16] MEDS: sodium chloride 0.9% 1,000 ML 999 ML IV ×3 (12:43→15:18)
[2020-03-16 13:07] LABS: ABG PCO2 25.1 mmHg (35-45); Base Excess ABG -16.2 mmol/L (-2.0-2.0); Blood Gas Operator Identificat amh; Blood Gas Sample Site Brachial, right; Blood Gas Sample Type Arterial; HCO3 ABG 9.9 mmol/L (22-26); Oxygen Device ROOM AIR; PO2 ABG 91.8 mmHg (80.0-100.0)
[2020-03-16 13:23] LABS: Glucose Point of Care 505 mg/dL (70-110)
[2020-03-16] MEDS: insulin regular-human 250 UNIT in sodium chloride 0.9% 250 ML IV (13:45)
[2020-03-16] MEDS: insulin regular-human 100 units/1 mL 4 UNIT IVP (13:46)
[2020-03-16 13:49] LABS: Basophils % 0.3 %; Hemoglobin 16.1 g/dL (11.7-16.6); Lymphocytes # 0.4 10^3/uL (0.8-4.8); Lymphocytes % 2.3 %; Mean Corpuscular HGB Conc 32.2 g/dL (30.0-36.0); Mean Corpuscular Hemoglobin 30.6 pg (28.0-34.0); Mean Corpuscular Volume 94.9 fL (80-94); Mean Platelet Volume 10.8 fL (7.4-10.4); Monocytes # 0.4 10^3/uL (0.2-0.9); Monocytes % 2.9 %; Neutrophils # 14.24 10^3/uL (1.8-7.7); Neutrophils % 94.1 %; Nucleated Red Blood Cells % 0 %; Platelet Count 226 10^3/cmm (130-400); Red Blood Count 5.27 10^6/uL (4.1-5.3); Red Cell Distribution Width 12.7 % (12.1-15.1); White Blood Count 15.1 10^3/uL (4.0-10.0)
[2020-03-16 13:52] LABS: Ketone (Acetest) Serum Positive (Negative)
[2020-03-16 14:00] LABS: Alanine Aminotransferase 14 U/L (0-41); Alkaline Phosphatase 58 IU/L (40-130); Anion Gap 36.5 (5-19); Aspartate Amino Transferase 16 U/L (0-40); Blood Urea Nitrogen 21 mg/dL (6-20); Calcium 10.1 mg/dL (8.5-10.5); Chloride 97 mmol/L (98-107); Glomerular Filtration Rate 83.7 mL/min (90-130); Lipase 10 U/L (13-60); Osmolality Calculated 303 mOsm/kg (285-295); Potassium 5.5 mmol/L (3.5-5.1); Sodium 137 mmol/L (136-145); Total Bilirubin 0.7 mg/dL (0.15-1.2)
[2020-03-16 14:14] LABS: Alcohol Level < 10 mg/dL (0-10)
[2020-03-16 14:17] LABS: Carbon Dioxide 9 mmol/L (22-29); Glucose 507 mg/dL (65-115)
[2020-03-16 14:23] LABS: Add Urine Microscopic? NO
[2020-03-16 14:30] LABS: Protein Urine Neg (Negative); Urine Appearance Clear (CLEAR); Urine Color Straw (Yellow); pH Urine 5 (5-7)
[2020-03-16 14:31] LABS: Bilirubin Urine Neg (NEGATIVE); Blood Urine Neg (Negative); Glucose Urine UA 4+ (Normal); Ketones Urine 3+ (Negative); Leukocyte Esterase Urine Negative (Negative); Nitrate Urine Negative (Negative); Urobilinogen Urine Norm (Negative)
--- NOTE | 2020-03-16 14:35 | PC.NURSE ---
co2-9, Glucose 507
[2020-03-16 14:39] LABS: Amphetamines Screen Urine Negative (Negative); Barbiturates Screen Urine Negative (Negative); Benzodiazepines Screen Urine Negative (Negative); Cocaine Screen Urine Negative (Negative); Opiate Screen Urine Negative (Negative); PCP Screen Urine Negative (Negative); THC Screen Urine Positive (Negative)
[2020-03-16 14:51] LABS: Glucose Point of Care 485 mg/dL (70-110)
[2020-03-16] MEDS: ondansetron 2 mg/ML SDV 2 mL 8 MG IVP (14:59)
--- NOTE | 2020-03-16 16:29 | P.HP_ITS ---
Providers/Chief Complaint Admitting Physician: Xiomara Arevalo MD Chief Complaint: N/V History of Present Illness Salvatore Ott is a 24 year old male with type 1DM usually on insulin pump who developed nausea, vomiting today, mother noted blood sugar to be >500, which did not improve with insulin bolus at home and was brought here due to concerns for DKA for which patient has had multiple past admissions. Labs notable for glu >500, + ketones, anion gap 34 and low bicarb. K at 5.5, starte don insulin drip in the ER. Unclear precipitant for current episode. No signs or symptoms of infection at present time. UA + for marijuana. Alcohol <10. Review of Systems General: Reports: 10 or more systems reviewed and unremarkable except in HPI and below Const: Denies: fever(s), chills or body aches Eyes: Denies: change in vision, blurry vision or photophobia ENMT: Reports: hoarseness; Denies: throat pain, enlarged tonsils, odynophagia or nasal congestion Card: Denies: chest pain, palpitations, irregular heart rhythm, edema, swelling of feet/ankles, lightheadedness, pre-syncope, dyspnea on exertion or orthopnea Resp: Denies: dyspnea, productive cough, non-productive cough, wheezing, stridor, pain on inspiration, change in phlegm color, hemoptysis or chest congestion GI: Denies: abdominal pain, nausea, vomiting, hematemesis, coffee ground emesis, dysphagia, heartburn, diarrhea, constipation, GI cramping, change in stool character, hematochezia or melena : Denies: flank pain, dysuria, urinary frequency, urinary urgency, urinary hesitancy or hematuria Musc: Denies: neck pain, back pain, extremity pain, joint swelling, joint warmth or deformity Neuro: Denies: headache(s), numbness in extremities, weakness in extremities, sensory changes, difficulty walking, frequent falls, dizziness, vertigo, b ehavioral changes, Slurred speech present or seizure-like activity Psych: Denies: anxiety, depression, suicidal ideation or homicidal ideation Endo: Denies: polyuria, polydipsia, tired all the time, cold intolerance or hot flashes Garett/Lymph: Denies: easy bruising or easy bleeding Medications/Allergies Home Medications Medication Instructions Recorded Confirmed Last Taken Type Fiasp U-100 Insulin See Rx Instructions .ROUTE .COMPLEX 12/21/19 03/16/20 03/16/20 History Omnipod Dash 5 Pack Pod 12/21/19 03/16/20 Unknown History pantoprazole 40 mg PO DAILY 12/21/19 03/16/20 03/16/20 History promethazine 25 mg PO PRN PRN 03/16/20 03/16/20 03/16/20 History Allergies Allergy/AdvReac Type Severity Reaction Status Date / Time No Known Allergies Allergy Verified 03/16/20 14:54 PFSH Acute PFSH: Medical History Diabetes mellitus Resolved GERD (gastroesophageal reflux disease) Type 1 diabetes Family History Other Diabetes Social History Smoking and tobacco status: former smoker Alcohol intake: never Vitals/I&O/Wt Last Vital Signs Temp 98.7 F 03/16/20 12:29 Pulse 99 03/16/20 15:00 Resp 16 03/16/20 15:00 BP 104/61 03/16/20 15:00 Pulse Ox 95 03/16/20 15:00 03/16/20 03/16/20 03/16/20 06:59 14:59 22:59 Intake Total 1000 / 1000 Balance 1000 / 1000 Weight last 48 hrs Weight 81.647 kg Physical Exam Narrative: EXAM NARRATIVE: GEN: Awake, alert and oriented, no acute distress CVS: S1S2 N RS: CTA B/L Abd: Soft, nt/nd , bs+ BALLROOM DANCER: no focal neuro deficits Data : 03/16/20 13:31 03/16/20 17:50 Micro: Microbiology 03/16/20 13:32 Blood Culture - Preliminary Blood SPECIMEN COLLECTED 03/16/20 13:31 Blood Culture - Preliminary Blood SPECIMEN COLLECTED A&P Assessment and plan (1) DKA (diabetic ketoacidoses): Status: Acute Qualifiers: Diabetes mellitus complication detail: without coma Diabetes mellitus t ype: type 1 Qualified Code(s): E10.10 - Type 1 diabetes mellitus with ketoacidosis without coma (2) Nausea & vomiting: Status: Acute Qualifiers: Vomiting Intractability: intractable Vomiting type: unspecified Qualified Code(s): R11.2 - Nausea with vomiting, unspecified (3) GERD (gastroesophageal reflux disease): Status: Acute (4) Hyperkalemia: Status: Acute Additional A&P Information Admit to ICU in view of DKA Start regular insulin infusion and titrate per DKA protocol until anion gap closes Check CMP q4h Once glucose level <200, change fluids to d51/2NS @ 150cc/hr Keep K between 3.3-5.3, currently at 5.5, therefore no supplementation for now Hyperkalemia likely to resolve with insulin infusion PH currently at 7.2, hold of alessandra bicarb infusion unless pH <6.9 , likely to improve with closing of gap prn zofran for nausea and vomiting Morphine prn for pain control insulin pump discontinued Full code Attestations Medical Necessity Statement*: >2midnight anticipated for management of DKA with electrolyte abnormalities Coding Level of Care Code Acute Strategic Debriefing Officer for [employer] Fwd Diagnoses DKA (diabetic ketoacidoses) E10.10 Diabetes mellitus complication detail: without coma Diabetes mellitus type: type 1 Nausea & vomiting R11.2 Vomiting Intractability: intractable Vomiting type: unspecified GERD (gastroesophageal reflux disease) K21.9 Hyperkalemia E87.5
[2020-03-16] MEDS: pantoprazole DR 40 mg Tablet PO (16:43)
[2020-03-16 16:44] LABS: Glucose Point of Care 383 mg/dL (70-110)
[2020-03-16 18:02] LABS: Glucose Point of Care 434 mg/dL (70-110)
[2020-03-16 18:16] LABS: Alanine Aminotransferase 15 U/L (0-41); Albumin Level 5.2 g/dL (3.5-5.2); Alkaline Phosphatase 58 IU/L (40-130); Aspartate Amino Transferase 18 U/L (0-40); Blood Urea Nitrogen 21 mg/dL (6-20); Calcium 9.9 mg/dL (8.5-10.5); Carbon Dioxide 10 mmol/L (22-29); Chloride 101 mmol/L (98-107); Globulin 2.9 g/dL (1.3-4.6); Glomerular Filtration Rate 75.7 mL/min (90-130); Glucose 350 mg/dL (65-115); Osmolality Calculated 297 mOsm/kg (285-295); Sodium 138 mmol/L (136-145); Total Bilirubin 0.4 mg/dL (0.15-1.2); Total Protein 8.1 g/dL (6.6-8.7)
[2020-03-16 18:24] LABS: Anion Gap 32.2 (5-19); Potassium 5.2 mmol/L (3.5-5.1)
[2020-03-16 19:03] LABS: Glucose Point of Care 329 mg/dL (70-110)
[2020-03-16] MEDS: sodium chloride 0.9% 1,000 ML 150 ML IV (19:35)
[2020-03-16 20:11] LABS: Glucose Point of Care 220 mg/dL (70-110)
[2020-03-16] MEDS: D5-NS 0.45% + KCL 20 mEq 20 MEQ/1,000 ML BAG 125 MEQ IV (20:20)
[2020-03-16 21:09] LABS: Glucose Point of Care 216 mg/dL (70-110)
[2020-03-16 22:10] LABS: Glucose Point of Care 192 mg/dL (70-110)
[2020-03-16 22:43] LABS: Anion Gap 19.3 (5-19); Blood Urea Nitrogen 18 mg/dL (6-20); Calcium 9.7 mg/dL (8.5-10.5); Carbon Dioxide 15 mmol/L (22-29); Chloride 106 mmol/L (98-107); Glomerular Filtration Rate 93.4 mL/min (90-130); Glucose 204 mg/dL (65-115); Magnesium 2.2 mg/dL (1.7-2.3); Osmolality Calculated 284 mOsm/kg (285-295); Phosphorus 2.1 mg/dL (2.5-4.5); Potassium 4.3 mmol/L (3.5-5.1); Sodium 136 mmol/L (136-145)
[2020-03-16 23:19] LABS: Glucose Point of Care 176 mg/dL (70-110)
[2020-03-17] VITALS (202 sets, daily range): BP systolic 88–123; BP diastolic 53–77; PULSE 76–129; RESP 0–36; TEMP 36.3–36.9; O2SAT 68–100
[2020-03-17 00:11] LABS: Glucose Point of Care 216 mg/dL (70-110)
[2020-03-17 01:14] LABS: Glucose Point of Care 157 mg/dL (70-110)
[2020-03-17 02:06] LABS: Glucose Point of Care 131 mg/dL (70-110)
--- NOTE | 2020-03-17 02:08 | PC.NURSE ---
Addendum entered by Serina Canales RN 03/17/20 02:10: wrong patient Original Note: patient not stable enough to turn
[2020-03-17 03:33] LABS: Glucose Point of Care 113 mg/dL (70-110)
[2020-03-17] MEDS: D5-NS 0.45% + KCL 20 mEq 20 MEQ/1,000 ML BAG 125 MEQ IV (04:21)
[2020-03-17 04:27] LABS: Glucose Point of Care 100 mg/dL (70-110)
[2020-03-17 04:49] LABS: Basophils % 0.1 %; Eosinophils % 0.1 %; Hematocrit 45.6 % (42.0-52.0); Hemoglobin 15.2 g/dL (11.7-16.6); Lymphocytes # 0.9 10^3/uL (0.8-4.8); Lymphocytes % 7.5 %; Mean Corpuscular HGB Conc 33.3 g/dL (30.0-36.0); Mean Corpuscular Hemoglobin 30.5 pg (28.0-34.0); Mean Corpuscular Volume 91.6 fL (80-94); Monocytes # 0.9 10^3/uL (0.2-0.9); Neutrophils # 9.67 10^3/uL (1.8-7.7); Nucleated Red Blood Cells % 0 %; Platelet Count 220 10^3/cmm (130-400); Red Blood Count 4.98 10^6/uL (4.1-5.3); Red Cell Distribution Width 12.5 % (12.1-15.1); White Blood Count 11.5 10^3/uL (4.0-10.0)
[2020-03-17 04:55] LABS: Glucose Point of Care 131 mg/dL (70-110)
[2020-03-17 04:59] LABS: Anion Gap 16.4 (5-19); Blood Urea Nitrogen 15 mg/dL (6-20); Calcium 9.1 mg/dL (8.5-10.5); Carbon Dioxide 18 mmol/L (22-29); Chloride 107 mmol/L (98-107); Glomerular Filtration Rate 120.9 mL/min (90-130); Glucose 109 mg/dL (65-115); Magnesium 2.2 mg/dL (1.7-2.3); Osmolality Calculated 281 mOsm/kg (285-295); Potassium 4.4 mmol/L (3.5-5.1); Sodium 137 mmol/L (136-145)
[2020-03-17 06:00] LABS: Glucose Point of Care 160 mg/dL (70-110)
[2020-03-17 06:57] LABS: Glucose Point of Care 110 mg/dL (70-110)
[2020-03-17 07:36] LABS: Glucose Point of Care 101 mg/dL (70-110)
--- NOTE | 2020-03-17 08:11 | PC.NURSE ---
Insulin pump This nurse called mother and updated on patients condition. Mother was asked to bring insulin pump and she stated she would bring it today after she got off work.
[2020-03-17] MEDS: insulin glargine 100 units/1 mL 30 UNIT SUBCUT (08:38)
[2020-03-17] MEDS: sodium chlor 0.9% + KCl 20 mEq 20 MEQ/1,000 ML BAG 125 MEQ IV (08:39)
[2020-03-17 09:01] LABS: Glucose Point of Care 192 mg/dL (70-110)
[2020-03-17 10:31] LABS: Glucose Point of Care 309 mg/dL (70-110)
--- NOTE | 2020-03-17 10:47 | P.PN_ITS ---
Subjective Subjective: Interval history: Patient's anion gap is closed today morning. Examination he denies of any nausea, vomiting, headache, chest pain. He states he places his insulin pump on his arm. Last meal change was 2 days ago. He denies of having changed any medication recently. Vitals/I&O/Wt Last Vital Signs Temp 97.3 F L 03/17/20 04:00 Pulse 101 H 03/17/20 08:25 Resp 17 03/17/20 08:25 BP 108/64 03/17/20 08:25 Pulse Ox 100 03/17/20 08:25 03/16/20 03/17/20 03/17/20 22:59 06:59 14:59 Intake Total 1000 / 2000 360 / 360 Output Total 625 / 625 550 / 550 Balance -625 / 375 1000 / 1375 -190 / -190 Weight last 48 hrs Weight 81.647 kg Physical Exam Narrative: EXAM NARRATIVE: General: No acute distress, AO x3 HEENT: PERRLA, pupils bilaterally equal and reactive Chest: Normal vesicular breath sounds, no added sounds, equal good air entry bilaterally CVS: S1-S2 regular, no murmurs, no tachycardia, no gallops, no rubs Abdomen: Soft, nontender, no organomegaly, bowel sounds present Neuro: No focal deficits, no facial deformity, AO x3, power 5/5 in all limbs Data : 03/17/20 04:30 03/17/20 04:30 Micro: Microbiology 03/16/20 13:32 Blood Culture - Preliminary Blood SPECIMEN COLLECTED 03/16/20 13:31 Blood Culture - Preliminary Blood SPECIMEN COLLECTED A&P Assessment and plan (1) DKA (diabetic ketoacidoses): Status: Acute Qualifiers: Diabetes mellitus complication detail: without coma Diabetes mellitus type: type 1 Qualified Code(s): E10.10 - Type 1 diabetes mellitus with ketoacidosis without coma (2) Nausea & vomiting: Status: Acute Qualifiers: Vomiting Intractability: intractable Vomiting type: unspecified Qualified Code(s): R11.2 - Nausea with vomiting, unspecified (3) GERD (gastroesophageal reflux disease): Status: Acute (4) Hyperkalemia: Status: Acute Additional A&P Information DKA: Type 1 diabetes with recurrent episodes of DKA. Anion gap is closed. Continue with IV fluids with potassium 500 cc/h. Start patient on carb consistent diet. Insulin pump not available right now. On conversation with his mother it is most likely available by evening. Because patient is type I diabetic with now we will start him on Lantus 30 units along with insulin sliding scale at high-dose. For now we will check sugar every 2 hour and will transition to every 4 hour depending on how the blood sugars are. Blood sugars continue to remain high will try him on oral glimepiride as well. Full code Carb consistent diet Lovenox for DVT prophylaxis Continued ICU care. Attestations Medical Necessity Statement*: DKA. Critical Care Time: Insulin drip, insulin pump Critical Care Time (min): 70 Coding Level of Care Code Acute Apartment Locator for [facility] Fwd Diagnoses DKA (diabetic ketoacidoses) E10.10 Diabetes mellitus complication detail: without coma Diabetes mellitus type: type 1 Nausea & vomiting R11.2 Vomiting Intractability: intractable Vomiting type: unspecified GERD (gastroesophageal reflux disease) K21.9 Hyperkalemia E87.5
[2020-03-17 11:57] LABS: Glucose Point of Care 155 mg/dL (70-110)
[2020-03-17 14:00] LABS: Glucose Point of Care 163 mg/dL (70-110)
--- NOTE | 2020-03-17 15:34 | PC.NURSE ---
Pt insulin pump made it to the floor. Dr. Brooks notified and requested that we call him before his glimeperide that is due at 1700 to tell him what his sugar is.
[2020-03-17 16:16] LABS: Glucose Point of Care 102 mg/dL (70-110)
[2020-03-17 18:02] LABS: Glucose Point of Care 69 mg/dL (70-110)
--- NOTE | 2020-03-17 18:07 | PC.NURSE ---
Blood Glucose check This nurse checked patients blood glucose at 1745 and read 69. Per protocol juice was given and Dr. Luna was notified. Orders were given to discontinue insulin pump and hold lantus. Pump was removed and catheter was intact. Will recheck glucose.
--- NOTE | 2020-03-17 18:18 | PC.NURSE ---
Recheck Blood glucose recheck was 114. notified
[2020-03-17 18:28] LABS: Glucose Point of Care 114 mg/dL (70-110)
[2020-03-17 19:47] LABS: Glucose Point of Care 89 mg/dL (70-110)
[2020-03-18] VITALS (11 sets, daily range): BP systolic 97–131; BP diastolic 62–84; PULSE 69–113; RESP 18–23; TEMP 36.7–37.1; O2SAT 94–98
[2020-03-18 00:39] LABS: Glucose Point of Care 236 mg/dL (70-110)
[2020-03-18] MEDS: ondansetron 2 mg/ML SDV 2 mL 4 MG IVP (05:05)
[2020-03-18 05:18] LABS: Basophils % 0.3 %; Eosinophils % 0.1 %; Hematocrit 44.3 % (42.0-52.0); Hemoglobin 14.7 g/dL (11.7-16.6); Lymphocytes # 0.9 10^3/uL (0.8-4.8); Mean Corpuscular HGB Conc 33.2 g/dL (30.0-36.0); Mean Corpuscular Hemoglobin 30.4 pg (28.0-34.0); Mean Corpuscular Volume 91.7 fL (80-94); Mean Platelet Volume 10.1 fL (7.4-10.4); Monocytes # 0.4 10^3/uL (0.2-0.9); Monocytes % 6.2 %; Neutrophils # 5.79 10^3/uL (1.8-7.7); Neutrophils % 81.1 %; Nucleated Red Blood Cells % 0 %; Platelet Count 168 10^3/cmm (130-400); Red Blood Count 4.83 10^6/uL (4.1-5.3); Red Cell Distribution Width 12.5 % (12.1-15.1); White Blood Count 7.1 10^3/uL (4.0-10.0)
[2020-03-18 05:36] LABS: Alanine Aminotransferase 13 U/L (0-41); Alkaline Phosphatase 43 IU/L (40-130); Anion Gap 15.9 (5-19); Aspartate Amino Transferase 15 U/L (0-40); Blood Urea Nitrogen 10 mg/dL (6-20); Calcium 8.9 mg/dL (8.5-10.5); Carbon Dioxide 20 mmol/L (22-29); Chloride 102 mmol/L (98-107); Globulin 2.6 g/dL (1.3-4.6); Glomerular Filtration Rate 168.5 mL/min (90-130); Glucose 232 mg/dL (65-115); Osmolality Calculated 281 mOsm/kg (285-295); Potassium 3.9 mmol/L (3.5-5.1); Sodium 134 mmol/L (136-145); Total Bilirubin 0.9 mg/dL (0.15-1.2); Total Protein 6.6 g/dL (6.6-8.7)
[2020-03-18 06:19] LABS: Glucose Point of Care 289 mg/dL (70-110)
--- NOTE | 2020-03-18 09:24 | PM.DCS ---
Discharge Providers Date of Admission: 03/16/20 16:26 Date of Discharge: March 18, 2020 Attending Provider at Admission: Xiomara Arevalo MD Attending Provider at Discharge: Jase Luna MD Diagnoses at Discharge Discharge Diagnosis (1) DKA (diabetic ketoacidoses): Status: Acute Qualifiers: Diabetes mellitus complication detail: without coma Diabetes mellitus type: type 1 Qualified Code(s): E10.10 - Type 1 diabetes mellitus with ketoacidosis without coma (2) Nausea & vomiting: Status: Acute Qualifiers: Vomiting Intractability: intractable Vomiting type: unspecified Qualified Code(s): R11.2 - Nausea with vomiting, unspecified (3) GERD (gastroesophageal reflux disease): Status: Acute (4) Hyperkalemia: Status: Acute Reason for Visit Reason for Visit: N/V Hospital Course Discharge Summary: Salvatore Ott is a 24 year old male with type 1DM usually on insulin pump who developed nausea, vomiting today, mother noted blood sugar to be >500, which did not improve with insulin bolus at home and was brought here due to concerns for DKA for which patient has had multiple past admissions. Labs notable for glu >500, + ketones, anion gap 34 and low bicarb. K at 5.5, starte don insulin drip in the ER. Unclear precipitant for current episode. No signs or symptoms of infection at present time. UA + for marijuana. Alcohol <10. He was admitted to the ICU and started on DKA protocol insulin. His anion gap closed overnight and he was started on carb consistent diet. He was monitored for 1 more day as his insulin pump was not available. His blood sugars remained stable. Given the amount of requirement of insulin in 24 hours he has been advised to use the insulin pump regularly but increase the dose from 2.5 units/h to 3 units/h. Patient already has an appointment with his compliance monitor on April 02 and has been advised to follow-up at the already set date. Patient is been discharged hemodynamically stable condition with advised to discuss with his compliance monitor about oral hypoglycemic in addition to insulin pump or a longstanding insulin in addition to the insulin pump. Physical Exam Narrative: EXAM NARRATIVE: General: No acute distress, AO x3 HEENT: PERRLA, pupils bilaterally equal and reactive Chest: Normal vesicular breath sounds, no added sounds, equal good air entry bilaterally CVS: S1-S2 regular, no murmurs, no tachycardia, no gallops, no rubs Abdomen: Soft, nontender, no organomegaly, bowel sounds present Neuro: No focal deficits, no facial deformity, AO x3, power 5/5 in all limbs Discharge Data Data Completed and Pending: Pending at discharge Category Date Time Status Blood Culture Sta t Lab 03/16/20 13:32 Results Complete Blood Co unt w/Auto AM LABS Lab 03/19/20 04:00 Ordered Labs from last 24 hours 03/18/20 03/18/20 03/18/20 06:15 04:50 04:50 WBC 7.1 RBC 4.83 Hgb 14.7 Hct 44.3 MCV 91.7 MCH 30.4 MCHC 33.2 RDW 12.5 Plt Count 168 MPV 10.1 Neut % (Auto) 81.1 Lymph % (Auto) 12.0 Smith % (Auto) 6.2 Eos % (Auto) 0.1 Baso % (Auto) 0.3 Neut # (Auto) 5.79 Lymph # (Auto) 0.9 Smith # (Auto) 0.4 Eos # (Auto) 0.0 Baso # (Auto) 0.0 Nucleated RBC % (a uto) 0 Nucleated RBCs # 0.0 Sodium 134 L Potassium 3.9 Chloride 102 Carbon Dioxide 20 L Anion Gap 15.9 BUN 10 Creatinine 0.6 L GFR Calculation 168.5 H Glucose 232 H POC Glucose 289 Calculated Osmolal ity 281 L Calcium 8.9 Total Bilirubin 0.9 AST 15 ALT 13 Alkaline Phosphata se 43 Total Protein 6.6 Albumin 4.0 Globulin 2.6 03/18/20 03/17/20 03/17/20 00:36 19:44 18:15 WBC RBC Hgb Hct MCV MCH MCHC RDW Plt Count MPV Neut % (Auto) Lymph % (Auto) Smith % (Auto) Eos % (Auto) Baso % (Auto) Neut # (Auto) Lymph # (Auto) Smith # (Auto) Eos # (Auto) Baso # (Auto) Nucleated RBC % (a uto) Nucleated RBCs # Sodium Potassium Chloride Carbon Dioxide Anion Gap BUN Creatinine GFR Calculation Glucose POC Glucose 236 89 114 Calculated Osmolal ity Calcium Total Bilirubin AST ALT Alkaline Phosphata se Total Protein Albumin Globulin 03/17/20 03/17/20 03/17/20 17:51 16:14 13:58 WBC RBC Hgb Hct MCV MCH MCHC RDW Plt Count MPV Neut % (Auto) Lymph % (Auto) Smith % (Auto) Eos % (Auto) Baso % (Auto) Neut # (Auto) Lymph # (Auto) Smith # (Auto) Eos # (Auto) Baso # (Auto) Nucleated RBC % (a uto) Nucleated RBCs # Sodium Potassium Chloride Carbon Dioxide Anion Gap BUN Creatinine GFR Calculation Glucose POC Glucose 69 102 163 Calculated Osmolal ity Calcium Total Bilirubin AST ALT Alkaline Phosphata se Total Protein Albumin Globulin 03/17/20 03/17/20 11:55 10:28 WBC RBC Hgb Hct MCV MCH MCHC RDW Plt Count MPV Neut % (Auto) Lymph % (Auto) Smith % (Auto) Eos % (Auto) Baso % (Auto) Neut # (Auto) Lymph # (Auto) Smith # (Auto) Eos # (Auto) Baso # (Auto) Nucleated RBC % (a uto) Nucleated RBCs # Sodium Potassium Chloride Carbon Dioxide Anion Gap BUN Creatinine GFR Calculation Glucose POC Glucose 155 309 Calculated Osmolal ity Calcium Total Bilirubin AST ALT Alkaline Phosphata se Total Protein Albumin Globulin Vitals: Last Vital Signs Temp 98.0 F 03/18/20 08:00 Pulse 81 03/18/20 09:00 Resp 23 H 03/18/20 09:00 BP 120/72 03/18/20 09:00 Pulse Ox 96 03/18/20 09:00 Discharge Plan Discharge Patient Disposition: Home, Self-Care Condition: Fair Prescriptions: Continued promethazine 25 mg tablet 25 mg PO PRN PRN (Reason: nausea/vomiting) RF: 0 pantoprazole 40 mg tablet,delayed release (DR/EC) 40 mg PO DAILY RF: 0 (DME) Omnipod Dash 5 Pack Pod Cartridge SUBCUT RF: 0 Fiasp U-100 Insulin 100 unit/mL solution See Rx Instructions .ROUTE .COMPLEX RF: 0 Discharge Orders: Discharge Order (Routine); Ordered 03/18/20 Ordered By: Jase Luna Referrals: Anastasia Sebastian APN [Family Provider] - Discharge Diet: Diabetic Discharge Activity: Resume usual activity Activity Restrictions/Additional Instructions: Please increase the dose of insulin pump to 3 units/h for now. Please follow-up with your compliance monitor on a set appointment on April 02. Please try to continue on carb restricted diet. Discharge Attestations Time Spent in Discharge Care*: greater than 30 min Specific Discharge Activities: Specific discharge activities: educating patient, educating and/or supporting family/caregiver, discussing with protective services case worker/social workers/dc planners, documenting/other paperwork and evaluating patient/reviewing data Status at Discharge: Cognitive status at discharge: cognitively intact, Behavioral status at discharge: cooperative, Functional status at discharge: independent ambulation Overall status at discharge: patient is back to baseline Quality Metrics Clinical Quality Measures During this hospital stay, did patient experience: None Coding Level of Care Code Acute Traverse Rod Assembler for Chg Fwd Diagnoses DKA (diabetic ketoacidoses) E10.10 Diabetes mellitus complication detail: without coma Diabetes mellitus type: type 1 Nausea & vomiting R11.2 Vomiting Intractability: intractable Vomiting type: unspecified GERD (gastroesophageal reflux disease) K21.9 Hyperkalemia E87.5
[2020-03-18 09:53] LABS: Glucose Point of Care 165 mg/dL (70-110)
== END 2020-03-18 15:39 | disposition home or self-care (01) | DRG 639 ==
LOC: ER 14:08 → ICU 03-17 07:16
PROVIDERS: Family Medicine; Hospitalist; Admitting Provider Student in an Organized Health Care Education/Training Program; Family Provider Nurse Practitioner Family; Visit Provider Student in an Organized Health Care Education/Training Program
DX: E10.10 Type 1 diabetes mellitus with ketoacidosis without coma (principal); K21.9 Gastro-esophageal reflux disease without esophagitis; E87.5 Hyperkalemia; Z87.891 Personal history of nicotine dependence
CPT/HCPCS: 12345; 36415; 36416; 36600; 80048; 80053; 80306; 80307; 81003; 82009; 82803; 82962; 83605; 83690; 83735; 84100; 85025; 87040; 96372; 96375; 99284; J1815 ×2; J2405; J7030; J7050

== ENCOUNTER 2020-09-30 03:02 | Inpatient (IN) | payer MEDICARE, MEDICAID, SELFPAY ==
[2020-09-30] VITALS (35 sets, daily range): BP systolic 90–136; BP diastolic 45–96; PULSE 69–107; RESP 6–36; TEMP 36.2–36.9; O2SAT 90–99; BMI 26.6
--- NOTE | 2020-09-30 03:05 | W.ED.AMS ---
HPI - Altered Mental Status General: Chief Complaint: Nausea/Vomiting/Diarrhea Stated Complaint: Elevated blood glucose Time Seen by Provider: 09/30/20 03:02 Source: patient and EMS Mode of arrival: EMS Limitations: no limitations History of Present Illness: HPI narrative: 25-year-old male has a history of type 1 diabetes states tonight he started having nausea vomiting abdominal cramping. He states that multiple episodes of vomiting. His blood sugar by EMS was over 500. Patient has had a history of DKA in the past. He states he been taking his insulin. He denies any fevers. He denies any worsening or improving factors. complaint: altered mental status Associated symptoms: Deny depression Review of Systems Const: Denies: fever(s), chills, body aches or change in appetite Eyes: Denies: blurry vision or eye discomfort ENMT: Denies: throat pain or dental pain Card: Denies: chest pain Resp: Denies: dyspnea GI: Reports: abdominal pain, nausea and vomiting; Denies: diarrhea : Denies: dysuria Musc: Denies: neck pain or back pain Skin/Breast: Denies: rash Neuro: Denies: headache(s) Psych: Denies: depression Garett/Lymph: Denies: easy bruising All/Imm: Denies: urticaria PFSH ED PFSH: Medical History (Updated 09/30/20 @ 03:55 by Charmaine Russell MD) Diabetes mellitus Resolved GERD (gastroesophageal reflux disease) Type 1 diabetes Family History Other Diabetes Social History Smoking and tobacco status: former smoker Alcohol intake: never Physical Exam Const: COMMON NORMALS: patient oriented x3 GENERAL APPEARANCE: ill appearing HENMT: COMMON NORMALS: normocephalic and atraumatic HEAD & SCALP: normocephalic and atraumatic Eye: COMMON NORMALS: Equal, round and reactive pupils present and EOMs intact bilaterally PUPIL: Yes Equal, round and reactive pupils present Neck/C-Spine: COMMON NORMALS: full ROM and supple Chest: COMMONS NORMALS: normal inspection of the chest and normal palpation of entire chest wall Resp: COMMON NORMALS: normal respiratory effort, No retractions, No use of accessory muscles and clear to auscultation bilaterally AUSCULTATION: clear to auscultation bilaterally Cardio: COMMON NORMALS: regular rate, regular rhythm and No murmurs present (Cardio) RATE: regular rate RHYTHM: regular rhythm GI: COMMON NORMALS: Normal to inspection, nondistended, normoactive bowel sounds present, Soft to palpation, non-tender and no masses PALPATION: Yes Soft to palpation Extremity: COMMON NORMALS: normal to inspection and full ROM Neuro: COMMON NORMALS: patient oriented x3, moves all extremities and no focal motor deficits Psych: COMMON NORMALS: mental status grossly normal, Normal thought process present and cooperative THOUGHT PROCESS: Normal thought process present Skin: COMMON NORMALS: no rashes or lesions noted and no wounds GENERAL SKIN EXAM: no rashes or lesions noted Course Vital Signs: Vital signs: Vital Signs Temperature 97.2 F L 09/30/20 03:03 Pulse Rate 69 09/30/20 03:17 Respiratory Rate 12 09/30/20 03:17 Blood Pressure 114/58 09/30/20 03:44 Pulse Oximetry 97 09/30/20 03:44 MDM - Altered Mental Status MDM Narrative: Medical decision making narrative: Patient presents here with DKA is mild in nature. His pH is normal but he does have an anion gap of 32 and a decreased CO2. Patient continues to have some vomiting I do not feel he is stable for discharge with his anion gap and is vomiting. We will start him on insulin drip and I spoke to the hospitalist will admit to the ICU. Lab Data: Labs: Lab Results 09/30/20 09/30/20 09/30/20 Range/Units 03:02 03:13 03:13 WBC 10.5 H (4.0-10.0) 10^3/ uL RBC 5.54 H (4.1-5.3) 10^6/u L Hgb 17.1 H (11.7-16.6) g/dL Hct 50.5 (42.0-52.0) % MCV 91.2 (80-94) fL MCH 30.9 (28.0-34.0) pg MCHC 33.9 (30.0-36.0) g/dL RDW 12.0 L (12.1-15.1) % Plt Count 238 (130-400) 10^3/c mm MPV 10.6 H (7.4-10.4) fL Neut % (Auto) 88.0 % Lymph % (Auto) 8.2 % Finney % (Auto) 2.9 % Eos % (Auto) 0.0 % Baso % (Auto) 0.4 % Neut # (Auto) 9.25 H (1.8-7.7) 10^3/u L Lymph # (Auto) 0.9 (0.8-4.8) 10^3/u L Finney # (Auto) 0.3 (0.2-0.9) 10^3/u L Eos # (Auto) 0.0 (0.0-0.8) 10^3/u L Baso # (Auto) 0.0 (0.0-0.1) 10^3/u L Nucleated RBC % (a uto) 0 % Nucleated RBCs # 0.0 /100WBC Specimen Type Art Sample Site R-radial ABG pH 7.46 H (7.35-7.45) ABG pCO2 18.0 L* (35-45) mmHg ABG pO2 125.0 H (80.0-100.0) mmH g ABG HCO3 12.4 L (22-26) mmol/L ABG Base Excess -8.0 L (-2.0-2.0) mmol/ L Hasmukh Test Pos Hematocrit 53.4 H (42-52) % O2 Delivery Device Ra FiO2 21.0 % Specimen Drawn By Chace Sodium 133 L (136-145) mmol/L Potassium 4.7 (3.5-5.1) mmol/L Chloride 91 L (98-107) mmol/L Carbon Dioxide 14 L (22-29) mmol/L Anion Gap 32.7 H (5-19) BUN 20 (6-20) mg/dL Creatinine 0.8 (0.7-1.2) mg/dL GFR Calculation 119.8 (90-130) mL/min Glucose 624 H* (65-115) mg/dL POC Glucose (70-110) mg/dL Calculated Osmolal ity 308 H (285-295) mOsm/k g Calcium 10.3 (8.5-10.5) mg/dL Total Bilirubin 1.1 (0.15-1.2) mg/dL AST 18 (0-40) U/L ALT 19 (0-41) U/L Alkaline Phosphata se 74 (40-130) IU/L Total Protein 7.8 (6.6-8.7) g/dL Albumin 4.7 (3.5-5.2) g/dL Globulin 3.1 (1.3-4.6) g/dL Lipase 16 (13-60) U/L Ethyl Alcohol < 10 (0-10) mg/dL Serum Ketones (Negative) 09/30/20 09/30/20 09/30/20 Range/Units 03:13 03:22 04:05 WBC (4.0-10.0) 10^3/ uL RBC (4.1-5.3) 10^6/u L Hgb (11.7-16.6) g/dL Hct (42.0-52.0) % MCV (80-94) fL MCH (28.0-34.0) pg MCHC (30.0-36.0) g/dL RDW (12.1-15.1) % Plt Count (130-400) 10^3/c mm MPV (7.4-10.4) fL Neut % (Auto) % Lymph % (Auto) % Finney % (Auto) % Eos % (Auto) % Baso % (Auto) % Neut # (Auto) (1.8-7.7) 10^3/u L Lymph # (Auto) (0.8-4.8) 10^3/u L Finney # (Auto) (0.2-0.9) 10^3/u L Eos # (Auto) (0.0-0.8) 10^3/u L Baso # (Auto) (0.0-0.1) 10^3/u L Nucleated RBC % (a uto) % Nucleated RBCs # /100WBC Specimen Type Sample Site ABG pH (7.35-7.45) ABG pCO2 (35-45) mmHg ABG pO2 (80.0-100.0) mmH g ABG HCO3 (22-26) mmol/L ABG Base Excess (-2.0-2.0) mmol/ L Hasmukh Test Hematocrit (42-52) % O2 Delivery Device FiO2 % Specimen Drawn By Sodium (136-145) mmol/L Potassium (3.5-5.1) mmol/L Chloride (98-107) mmol/L Carbon Dioxide (22-29) mmol/L Anion Gap (5-19) BUN (6-20) mg/dL Creatinine (0.7-1.2) mg/dL GFR Calculation (90-130) mL/min Glucose (65-115) mg/dL POC Glucose 551 H* 498 H (70-110) mg/dL Calculated Osmolal ity (285-295) mOsm/k g Calcium (8.5-10.5) mg/dL Total Bilirubin (0.15-1.2) mg/dL AST (0-40) U/L ALT (0-41) U/L Alkaline Phosphata se (40-130) IU/L Total Protein (6.6-8.7) g/dL Albumin (3.5-5.2) g/dL Globulin (1.3-4.6) g/dL Lipase (13-60) U/L Ethyl Alcohol (0-10) mg/dL Serum Ketones Positive H (Negative) Imaging Data^: CXR: Attestation: I personally reviewed and interpreted this imaging study as follows: My impression: no acute abnormality Critical Care Time Critical Care Time: Critical Care Time: Yes Total Critical Care Time: 35 Attestation: This case had a high probability of a clinically significant, sudden, or life threatening deterioration of this patient's condition which required my full and direct attention, intervention and personal management. Discharge Plan Discharge Patient Disposition: Admitted As Inpatient Clinical Impression: DKA (diabetic ketoacidoses) Qualifiers: Diabetes mellitus type: type 1 Diabetes mellitus complication detail: without coma Qualified Code(s): E10.10 - Type 1 diabetes mellitus with ketoacidosis without coma Vomiting Qualifiers: Vomiting type: unspecified Vomiting Intractability: non-intractable Nausea presence: with nausea Qualified Code(s): R11.2 - Nausea with vomiting, unspecified Condition: Stable Coding Level of Care Code ED Service Order Dispatcher for Chg Fwd Exam Comprehensive
[2020-09-30] MEDS: ondansetron 2 mg/ML SDV 2 mL 4 MG IVP ×2 (03:11→04:48)
[2020-09-30] MEDS: morphine 4 mg/mL SDV 1 mL IVP (03:11)
[2020-09-30] MEDS: sodium chloride 0.9% 1,000 ML 999 ML IV ×2 (03:14→04:07)
[2020-09-30 03:16] LABS: ABG PH Result 7.46 (7.35-7.45); Blood Gas Allen Test POS; Blood Gas Sample Type ART; HCO3 ABG 12.4 mmol/L (22-26); Oxygen Device RA
[2020-09-30 03:17] LABS: Arterial Blood Gas Hematocrit 53.4 % (42-52); Blood Gas Sample Site R-RADIAL
[2020-09-30 03:26] LABS: Glucose Point of Care 551 mg/dL (70-110)
[2020-09-30] MEDS: insulin regular-human 100 units/1 mL 10 UNIT IVP (03:31)
[2020-09-30 03:32] LABS: Basophils % 0.4 %; Hematocrit 50.5 % (42.0-52.0); Hemoglobin 17.1 g/dL (11.7-16.6); Lymphocytes # 0.9 10^3/uL (0.8-4.8); Lymphocytes % 8.2 %; Mean Corpuscular HGB Conc 33.9 g/dL (30.0-36.0); Mean Corpuscular Hemoglobin 30.9 pg (28.0-34.0); Mean Corpuscular Volume 91.2 fL (80-94); Mean Platelet Volume 10.6 fL (7.4-10.4); Monocytes # 0.3 10^3/uL (0.2-0.9); Monocytes % 2.9 %; Neutrophils # 9.25 10^3/uL (1.8-7.7); Nucleated Red Blood Cells % 0 %; Platelet Count 238 10^3/cmm (130-400); Red Blood Count 5.54 10^6/uL (4.1-5.3); White Blood Count 10.5 10^3/uL (4.0-10.0)
--- NOTE | 2020-09-30 03:42 | XR_ITS ---
WS: [id number] Exam: XR chest 1V portable [id number] Date/Time of Exam: 09/30/2020 3:45 AM Reason For Exam: sob Comparison 12/21/2019. Findings: The lungs are clear and fully expanded. Costophrenic angles are sharp. No infiltrates. Bronchovascula r relief appears normal. Cardiac silhouette is unremarkable. Bony elements are intact. XR/XR chest 1V portable [id number] IMPRESSION: Unremarkable chest radiograph.
[2020-09-30 03:49] LABS: Alanine Aminotransferase 19 U/L (0-41); Albumin Level 4.7 g/dL (3.5-5.2); Alkaline Phosphatase 74 IU/L (40-130); Anion Gap 32.7 (5-19); Aspartate Amino Transferase 18 U/L (0-40); Blood Urea Nitrogen 20 mg/dL (6-20); Calcium 10.3 mg/dL (8.5-10.5); Carbon Dioxide 14 mmol/L (22-29); Chloride 91 mmol/L (98-107); Globulin 3.1 g/dL (1.3-4.6); Glomerular Filtration Rate 119.8 mL/min (90-130); Lipase 16 U/L (13-60); Osmolality Calculated 308 mOsm/kg (285-295); Potassium 4.7 mmol/L (3.5-5.1); Sodium 133 mmol/L (136-145); Total Bilirubin 1.1 mg/dL (0.15-1.2); Total Protein 7.8 g/dL (6.6-8.7)
[2020-09-30 03:50] LABS: Alcohol Level < 10 mg/dL (0-10); Glucose 624 mg/dL (65-115)
[2020-09-30 03:51] LABS: Ketone (Acetest) Serum Positive (Negative)
--- NOTE | 2020-09-30 04:08 | P.HP_ITS ---
Providers/Chief Complaint Primary Care Provider: Anastasia Sebastian APN Chief Complaint: HIGH BLOOD SUGAR History of Present Illness Salvatore Ott is a 25 year old male who has had multiple admissions secondary to DKA type 1 diabetes recurrent vomiting due to marijuana abuse presented today with similar complaint. Patient is stating that his symptoms started around 6 PM when his glucometer started showing glucose above 500, after that he started experiencing multiple episodes of emesis. He was not able to keep anything down hence decided to come to the hospital for further evaluation. Diagnostics in the ER revealed DKA he was given IV insulin started on normal saline, no source of infection found, chest x-ray unremarkable, drug screen is pending, blood gases showing respiratory alkalosis and compensation to metabolic acidosis, he was not in any respiratory distress at the time of my evaluation, mild leukocytosis noted Review of Systems Const: Reports: chills, body aches and fatigue; Denies: fever(s) Eyes: Denies: change in vision ENMT: Denies: throat pain Card: Denies: chest pain Resp: Denies: dyspnea GI: Reports: abdominal pain, nausea and vomiting : Denies: flank pain Musc: Denies: neck pain Skin/Breast: Denies: rash Neuro: Denies: headache(s) Psych: Denies: anxiety Endo: Denies: polyuria Garett/Lymph: Denies: easy bruising All/Imm: Denies: urticaria Medications/Allergies Home Medications Medication Instructions Recorded Confirmed Last Taken Type Fiasp U-100 Insulin See Rx Instructions .ROUTE .COMPLEX 12/21/19 03/16/20 03/16/20 History Omnipod Dash 5 Pack Pod 12/21/19 03/16/20 Unknown History pantoprazole 40 mg PO DAILY 12/21/19 03/16/20 03/16/20 History promethazine 25 mg PO PRN PRN 03/16/20 03/16/20 03/16/20 History Allergies Allergy/AdvReac Type Severity Reaction Status Date / Time No Known Allergies Allergy Verified 03/16/20 14:54 PFSH Acute PFSH: Medical History Diabetes mellitus Resolved GERD (gastroesophageal reflux disease) Type 1 diabetes Surgical History (Updated 09/30/20 @ 04:24 by Boris Boyer MD) No pertinent past surgical history Family History Other Diabetes Social History (Updated 09/30/20 @ 04:24 by Boris Boyer MD) Smoking and tobacco status: former smoker Alcohol intake: never Substance/Drug Use: former Date of last use: Marijuana abuse Household members: family Housing: House Vitals/I&O/Wt Last Vital Signs Temp 97.2 F L 09/30/20 03:03 Pulse 69 09/30/20 03:17 Resp 12 09/30/20 03:17 BP 114/58 09/30/20 03:44 Pulse Ox 97 09/30/20 03:44 Weight last 48 hrs Weight 72.575 kg Physical Exam Narrative: EXAM NARRATIVE: Young male currently not in any distress Saturating well on room air No acute respiratory distress No chest pain, Sinus rhythm, heart rate 70-80, Abdomen nontender, no signs of peritonitis Lower extremity no edema gangrene ulcer Seemed a little distresed with poor insight No skin ulcers or joint swelling EOMI, PERRLA Awake alert oriented x3 GCS 15 No neurological deficit Data : 09/30/20 03:13 09/30/20 03:13 A&P Assessment and plan (1) Vomiting: Status: Acute Qualifiers: Nausea presence: with nausea Vomiting Intractability: non-intractable Vomiting type: unspecified Qualified Code(s): R11.2 - Nausea with vomiting, unspecified (2) DKA (diabetic ketoacidoses): Status: Acute Qualifiers: Diabetes mellitus complication detail: without coma Diabetes mellitus type: type 1 Qualified Code(s): E10.10 - Type 1 diabetes mellitus with ketoacidosis without coma (3) Nausea & vomiting: Status: Acute Qualifiers: Vomiting Intractability: intractable Vomiting type: unspecified Qualified Code(s): R11.2 - Nausea with vomiting, unspecified Additional A&P Information DKA We will request troponin level, drug screen positive for marijuana however patient denied Start insulin with normal saline DKA protocol No source of infection found Most likely etiology is marijuana abuse which induces cyclical vomiting and aggravated DKA Poor dental hygiene requested patient to see a dentist as well, no active tooth pain or scar N.p.o. SCDs: DVT prophylaxis Full code Attestations Medical Necessity Statement*: Anticipating stay in the hospital because more than 2 midnights currently need ICU management for recurrent DKA due to marijuana use Time Spent in Patient Care: (>than 50% of time spent in counselling and/or direct pt care on unit) . 50mins Coding Level of Care Code Acute Digital Hardware Design Engineer for Chg Fwd Diagnoses Vomiting R11.2 Nausea presence: with nausea Vomiting Intractability: non-intractable Vomiting type: unspecified DKA (diabetic ketoacidoses) E10.10 Diabetes mellitus complication detail: without coma Diabetes mellitus type: type 1 Nausea & vomiting R11.2 Vomiting Intractability: intractable Vomiting type: unspecified
[2020-09-30 04:09] LABS: Glucose Point of Care 498 mg/dL (70-110)
[2020-09-30 04:23] LABS: Amphetamines Screen Urine Negative (Negative); Barbiturates Screen Urine Negative (Negative); Benzodiazepines Screen Urine Negative (Negative); Cocaine Screen Urine Negative (Negative); Opiate Screen Urine Positive (Negative); PCP Screen Urine Negative (Negative); THC Screen Urine Positive (Negative)
[2020-09-30 04:45] LABS: Glucose Point of Care 447 mg/dL (70-110)
[2020-09-30] MEDS: sodium bicarbonate 8.4% 1 mEq/mL 50mL Syr 100 MEQ IVP (05:16)
[2020-09-30] MEDS: sodium chlor 0.9% + KCl 40 mEq 40 MEQ/1,000 ML BAG 100 MEQ IV (05:16)
[2020-09-30] MEDS: insulin regular-human 250 UNIT in sodium chloride 0.9% 250 ML 10.7 UNIT IV (05:29)
--- NOTE | 2020-09-30 05:45 | PC.NURSE ---
Patient arrived to ICU at 0509 from ED. A&O, lungs clear, continue care.
[2020-09-30 06:24] LABS: Lipase 18 U/L (13-60); Triglycerides 41 mg/dL (0-150)
[2020-09-30 06:25] LABS: Troponin T (5th) Once 20 ng/L (0-15)
[2020-09-30 06:25] LABS: Estmated Average Glucose 203; Hemoglobin A1C 8.7 % (4.0-6.0)
[2020-09-30 06:27] LABS: Glucose Point of Care 306 mg/dL (70-110)
[2020-09-30 06:27] LABS: Glucose Point of Care 417 mg/dL (70-110)
[2020-09-30 07:21] LABS: Glucose Point of Care 255 mg/dL (70-110)
[2020-09-30] MEDS: dextrose 5%-ns + KCl 20 20 MEQ/1,000 ML BAG 100 MEQ IV (08:14)
[2020-09-30 08:17] LABS: Glucose Point of Care 174 mg/dL (70-110)
[2020-09-30 08:40] LABS: Alanine Aminotransferase 15 U/L (0-41); Albumin Level 4.3 g/dL (3.5-5.2); Alkaline Phosphatase 64 IU/L (40-130); Anion Gap 16.3 (5-19); Aspartate Amino Transferase 16 U/L (0-40); Blood Urea Nitrogen 16 mg/dL (6-20); Carbon Dioxide 23 mmol/L (22-29); Chloride 101 mmol/L (98-107); Globulin 2.8 g/dL (1.3-4.6); Glomerular Filtration Rate 139.8 mL/min (90-130); Glucose 204 mg/dL (65-115); Magnesium 2.2 mg/dL (1.7-2.3); Osmolality Calculated 289 mOsm/kg (285-295); Phosphorus 3.6 mg/dL (2.5-4.5); Potassium 4.3 mmol/L (3.5-5.1); Sodium 136 mmol/L (136-145); Total Bilirubin 0.7 mg/dL (0.15-1.2); Total Protein 7.1 g/dL (6.6-8.7)
[2020-09-30 09:16] LABS: Glucose Point of Care 149 mg/dL (70-110)
--- NOTE | 2020-09-30 09:17 | PC.CHAP ---
Pastoral Care Encounter/Spiritual Assessment Type of Contact [] Declined front desk host visit [] Patient/Family/Request visit [] Outpatient visit [] Follow-up visit [] Physician referral [] Code/Alert [x] Routine visit [] Staff referral [] Actively dying [x] Patient sleeping [] Family support [] [] Out of room [] Palliative care [] [] Receiving care in room [] Pre-surgical visit [] Trauma [] Long length of stay [x] ICU visit [x] Other: prayed from doorway.. Relational/Emotional Strength [] Patient feels connected with others/family/visitors/staff [] Distress [] Loneliness/isolation [] Abandonment Spirituality of Patient [] Person of Emily [] Attends Protestant of their Emily [] Believes in Prayer [] Reads Bible or Buddhist materials [] There are Spiritual issues to be addressed Loom Tuner Interventions [x] Prayer [] Active listening [] Non-anxious presence [] Spiritual/emotional support [] Crisis/trauma care [] Spiritual counseling [] Bereavement support [] Provided bereavement packet [] Provided Bible/devotional materials [] Provided toy/stuffed animal, coloring book to patient or family member [] Provided Communion [] Anointing/[place] [] Salvation [x] Completed spiritual assessment [] Other: Impact on Illness or Injury [] Angry [] Fearful [] Anxious [] Often cries [] Exhaustion [] Unable to work [] Unable to attend mu-ism [] Unable to walk/stand [] Unable to read [] Unable to drive [] Unable to eat/drink [] Unable to sleep [] Unable to be with family [] Patient intubated [] Other: Summary Time spent with patient
--- NOTE | 2020-09-30 10:00 | P.PN_ITS ---
Subjective Subjective: Interval history: Overnight labs, H&P reviwed . 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, no further episodes of vomiting Medications: Reviewed: Yes Vitals/I&O/Wt Last Vital Signs Temp 98.3 F 09/30/20 08:00 Pulse 79 09/30/20 18:00 Resp 20 H 09/30/20 18:00 BP 105/79 09/30/20 16:00 Pulse Ox 93 09/30/20 06:05 09/30/20 09/30/20 09/30/20 06:59 14:59 22:59 Intake Total 8.203 / 8.203 971.482 / 971.482 350 / 1321.482 Output Total 900 / 900 0 / 0 700 / 700 Balance -891.797 / -891.797 971.482 / 971.482 -350 / 621.482 Weight last 48 hrs Weight 72.575 kg Physical Exam Narrative: EXAM NARRATIVE: GEN: Awake, alert and oriented, no acute distress CVS: S1S2 N RS: CTA B/L Abd: Soft, nt/nd , bs+ THEATRICAL DRESSER: no focal neuro deficits Data : 09/30/20 03:13 09/30/20 16:31 A&P Assessment and plan (1) Vomiting: Status: Acute Qualifiers: Nausea presence: with nausea Vomiting Intractability: non-intractable Vomiting type: unspecified Qualified Code(s): R11.2 - Nausea with vomiting, unspecified (2) DKA (diabetic ketoacidoses): Status: Acute Qualifiers: Diabetes mellitus complication detail: without coma Diabetes mellitus type: type 1 Qualified Code(s): E10.10 - Type 1 diabetes mellitus with ketoacidosis without coma (3) Nausea & vomiting: Status: Acute Qualifiers: Vomiting Intractability: intractable Vomiting type: unspecified Qualified Code(s): R11.2 - Nausea with vomiting, unspecified Additional A&P Information # DKA Currently on insulin infusion per DKA protocol Vomiting resolved AG closed Start meals with carb consistent diet Stop insulin infusion with one hour overlap after starting meals , switch to S/c sliding scale insulin high dose Check CMP again at 4pm D/C IVF No source of infection found Most likely etiology is marijuana abuse which induces cyclical vomiting and aggravated DKA SCDs: DVT prophylaxis Full code Attestations Medical Necessity Statement*: Start insulin s/c overlap, stop infusion, [place] [facility] [place] gap remains closed Coding Level of Care Code Acute Crusher Supervisor for Chg Fwd Diagnoses Vomiting R11.2 Nausea presence: with nausea Vomiting Intractability: non-intractable Vomiting type: unspecified DKA (diabetic ketoacidoses) E10.10 Diabetes mellitus complication detail: without coma Diabetes mellitus type: type 1 Nausea & vomiting R11.2 Vomiting Intractability: intractable Vomiting type: unspecified
[2020-09-30 10:14] LABS: Glucose Point of Care 184 mg/dL (70-110)
[2020-09-30 11:19] LABS: Glucose Point of Care 117 mg/dL (70-110)
[2020-09-30 12:27] LABS: Glucose Point of Care 105 mg/dL (70-110)
[2020-09-30 17:24] LABS: Glucose Point of Care 249 mg/dL (70-110)
[2020-09-30 17:32] LABS: Alanine Aminotransferase 13 U/L (0-41); Alkaline Phosphatase 57 IU/L (40-130); Anion Gap 18.3 (5-19); Aspartate Amino Transferase 14 U/L (0-40); Blood Urea Nitrogen 16 mg/dL (6-20); Carbon Dioxide 22 mmol/L (22-29); Chloride 98 mmol/L (98-107); Globulin 2.3 g/dL (1.3-4.6); Glucose 247 mg/dL (65-115); Osmolality Calculated 287 mOsm/kg (285-295); Potassium 4.3 mmol/L (3.5-5.1); Sodium 134 mmol/L (136-145); Total Bilirubin 0.9 mg/dL (0.15-1.2); Total Protein 6.3 g/dL (6.6-8.7)
[2020-09-30 20:19] LABS: Glucose Point of Care 298 mg/dL (70-110)
[2020-09-30 23:10] LABS: Alanine Aminotransferase 14 U/L (0-41); Albumin Level 3.7 g/dL (3.5-5.2); Alkaline Phosphatase 56 IU/L (40-130); Anion Gap 14.1 (5-19); Aspartate Amino Transferase 13 U/L (0-40); Blood Urea Nitrogen 14 mg/dL (6-20); Calcium 9.2 mg/dL (8.5-10.5); Carbon Dioxide 25 mmol/L (22-29); Chloride 98 mmol/L (98-107); Globulin 2.5 g/dL (1.3-4.6); Glomerular Filtration Rate 139.8 mL/min (90-130); Glucose 257 mg/dL (65-115); Osmolality Calculated 285 mOsm/kg (285-295); Potassium 4.1 mmol/L (3.5-5.1); Sodium 133 mmol/L (136-145); Total Bilirubin 0.7 mg/dL (0.15-1.2); Total Protein 6.2 g/dL (6.6-8.7)
[2020-10-01] VITALS (25 sets, daily range): BP systolic 97–139; BP diastolic 52–88; PULSE 12–117; RESP 0–35; TEMP 36.6; O2SAT 96–100
[2020-10-01] MEDS: ondansetron 2 mg/ML SDV 2 mL 4 MG IVP ×2 (04:09→15:26)
[2020-10-01 04:34] LABS: Glucose Point of Care 387 mg/dL (70-110)
[2020-10-01] MEDS: metoclopramide 5 mg/mL SDV 2 mL IVP ×2 (05:59→20:04)
[2020-10-01 07:46] LABS: Glucose Point of Care 453 mg/dL (70-110)
[2020-10-01 09:38] LABS: Alanine Aminotransferase 20 U/L (0-41); Albumin Level 4.6 g/dL (3.5-5.2); Alkaline Phosphatase 75 IU/L (40-130); Anion Gap 32.1 (5-19); Aspartate Amino Transferase 19 U/L (0-40); Blood Urea Nitrogen 16 mg/dL (6-20); Calcium 9.3 mg/dL (8.5-10.5); Carbon Dioxide 10 mmol/L (22-29); Chloride 98 mmol/L (98-107); Globulin 3.2 g/dL (1.3-4.6); Glomerular Filtration Rate 104.6 mL/min (90-130); Glucose 414 mg/dL (65-115); Osmolality Calculated 299 mOsm/kg (285-295); Potassium 5.1 mmol/L (3.5-5.1); Sodium 135 mmol/L (136-145); Total Bilirubin 0.7 mg/dL (0.15-1.2); Total Protein 7.8 g/dL (6.6-8.7)
--- NOTE | 2020-10-01 09:45 | PC.NURSE ---
Pt throwing up. CMP ordered do to labs not ordered this am. Anion gap is high at 32.4, message sent to Dr. Arevalo.
--- NOTE | 2020-10-01 09:53 | PC.CHAP ---
Pastoral Care Encounter/Spiritual Assessment Type of Contact [] Declined sliver former visit [] Patient/Family/Request visit [] Outpatient visit [] Follow-up visit [] Physician referral [] Code/Alert [x] Routine visit [] Staff referral [] Actively dying [] Patient sleeping [] Family support [] [] Out of room [] Palliative care [] [] Receiving care in room [] Pre-surgical visit [] Trauma [] Long length of stay [x] ICU visit [] Other: Relational/Emotional Strength [] Patient feels connected with others/family/visitors/staff [] Distress [] Loneliness/isolation [] Abandonment Spirituality of Patient [] Person of Emily [] Attends Buddhism of their Emily [] Believes in Prayer [] Reads Bible or Confucianist materials [] There are Spiritual issues to be addressed Chicken And Fish Cleaner Interventions [x] Prayer [] Active listening [] Non-anxious presence [] Spiritual/emotional support [] Crisis/trauma care [] Spiritual counseling [] Bereavement support [] Provided bereavement packet [] Provided Bible/devotional materials [] Provided toy/stuffed animal, coloring book to patient or family member [] Provided Communion [] Anointing/[place] [] Salvation [x] Completed spiritual assessment [] Other: Impact on Illness or Injury [] Angry [] Fearful [] Anxious [] Often cries [] Exhaustion [] Unable to work [] Unable to attend judaism [] Unable to walk/stand [] Unable to read [] Unable to drive [] Unable to eat/drink [] Unable to sleep [] Unable to be with family [] Patient intubated [] Other: Summary patient having continued pain.. not social, but allowed sliver former to pray.. Time spent with patient 10 min
[2020-10-01 09:54] LABS: Glucose Point of Care 338 mg/dL (70-110)
[2020-10-01] MEDS: insulin regular-human 250 UNIT in sodium chloride 0.9% 250 ML 8.8 UNIT IV (10:00)
[2020-10-01 11:08] LABS: Glucose Point of Care 225 mg/dL (70-110)
[2020-10-01] MEDS: insulin regular-human 250 UNIT in sodium chloride 0.9% 250 ML 6.6 UNIT IV ×2 (11:29→12:52)
[2020-10-01 12:18] LABS: Glucose Point of Care 209 mg/dL (70-110)
[2020-10-01 13:24] LABS: Glucose Point of Care 130 mg/dL (70-110)
[2020-10-01 14:30] LABS: Glucose Point of Care 111 mg/dL (70-110)
[2020-10-01 15:18] LABS: Alanine Aminotransferase 20 U/L (0-41); Albumin Level 4.5 g/dL (3.5-5.2); Alkaline Phosphatase 67 IU/L (40-130); Anion Gap 22.5 (5-19); Aspartate Amino Transferase 17 U/L (0-40); Blood Urea Nitrogen 16 mg/dL (6-20); Calcium 9.5 mg/dL (8.5-10.5); Carbon Dioxide 16 mmol/L (22-29); Chloride 101 mmol/L (98-107); Globulin 2.9 g/dL (1.3-4.6); Glomerular Filtration Rate 139.8 mL/min (90-130); Glucose 124 mg/dL (65-115); Osmolality Calculated 283 mOsm/kg (285-295); Potassium 4.5 mmol/L (3.5-5.1); Sodium 135 mmol/L (136-145); Total Bilirubin 0.6 mg/dL (0.15-1.2); Total Protein 7.4 g/dL (6.6-8.7)
--- NOTE | 2020-10-01 15:41 | PM.PN ---
Subjective Subjective: Interval history: Patient was transitioned off of insulin drip to subcutaneous insulin yesterday afternoon, however this morning his gap has opened again. Anion gap this morning is at 31. By review of MAR it appears that patient had a fingerstick check at 4 AM at 387, however did not receive insulin with this number. His last dose of insulin was at 8:30 PM on 09/30 and then again received insulin at 8 AM on 10/01. 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 deficits Data : 09/30/20 03:13 10/01/20 14:49 A&P Assessment and plan (1) Vomiting: Status: Acute Qualifiers: Nausea presence: with nausea Vomiting Intractability: non-intractable Vomiting type: unspecified Qualified Code(s): R11.2 - Nausea with vomiting, unspecified (2) DKA (diabetic ketoacidoses): Status: Acute Qualifiers: Diabetes mellitus complication detail: without coma Diabetes mellitus type: type 1 Qualified Code(s): E10.10 - Type 1 diabetes mellitus with ketoacidosis without coma (3) Nausea & vomiting: Status: Acute Qualifiers: Vomiting Intractability: intractable Vomiting type: unspecified Qualified Code(s): R11.2 - Nausea with vomiting, unspecified Additional A&P Information # DKA Currently on insulin infusion per DKA protocol Anion gap increased again this morning to 31, discontinued subcutaneous insulin and placed back on insulin infusion this morning per DKA protocol. CMP q6h NPO No source of infection found Most likely etiology is marijuana abuse which induces cyclical vomiting and aggravated DKA SCDs: DVT prophylaxis Full code Attestations Medical Necessity Statement*: diabetic ketoacidosis, needs insulin infusion Coding Level of Care Code Acute Early Childhood Education Coordinator for Chg Fwd Diagnoses Vomiting R11.2 Nausea presence: with nausea Vomiting Intractability: non-intractable Vomiting type: unspecified DKA (diabetic ketoacidoses) E10.10 Diabetes mellitus complication detail: without coma Diabetes mellitus type: type 1 Nausea & vomiting R11.2 Vomiting Intractability: intractable Vomiting type: unspecified
[2020-10-01] MEDS: dextrose 5%-ns 0.45% + KCl 40 1,000 ML 100 MEQ IV ×2 (16:16→21:24)
[2020-10-01 16:17] LABS: Glucose Point of Care 141 mg/dL (70-110)
[2020-10-01 18:32] LABS: Glucose Point of Care 181 mg/dL (70-110)
--- NOTE | 2020-10-01 18:39 | PC.NURSE ---
Pt is nauseated. No order for IV antiemetic
[2020-10-01 19:14] LABS: Glucose Point of Care 278 mg/dL (70-110)
[2020-10-01 19:28] LABS: Glucose Point of Care 246 mg/dL (70-110)
--- NOTE | 2020-10-01 19:30 | PC.NURSE ---
Dr Boyer wrote order for Reglan 4mg IVP q 4 hour and increased the zofran order. Pt continues to have dry heaves.
[2020-10-01] MEDS: insulin regular-human 250 UNIT in sodium chloride 0.9% 250 ML 13 UNIT IV (19:35)
[2020-10-01] MEDS: insulin regular-human 250 UNIT in sodium chloride 0.9% 250 ML 12.1 UNIT IV (20:00)
[2020-10-01 21:16] LABS: Alanine Aminotransferase 18 U/L (0-41); Albumin Level 4.2 g/dL (3.5-5.2); Alkaline Phosphatase 63 IU/L (40-130); Anion Gap 17.6 (5-19); Aspartate Amino Transferase 15 U/L (0-40); Blood Urea Nitrogen 14 mg/dL (6-20); Carbon Dioxide 19 mmol/L (22-29); Chloride 101 mmol/L (98-107); Globulin 2.7 g/dL (1.3-4.6); Glomerular Filtration Rate 119.8 mL/min (90-130); Glucose 211 mg/dL (65-115); Osmolality Calculated 283 mOsm/kg (285-295); Potassium 4.6 mmol/L (3.5-5.1); Sodium 133 mmol/L (136-145); Total Bilirubin 0.7 mg/dL (0.15-1.2); Total Protein 6.9 g/dL (6.6-8.7)
[2020-10-02] VITALS (30 sets, daily range): BP systolic 112–146; BP diastolic 47–87; PULSE 73–117; RESP 4–27; TEMP 37.2; O2SAT 96–99
[2020-10-02 00:27] LABS: Glucose Point of Care 210 mg/dL (70-110)
[2020-10-02 00:27] LABS: Glucose Point of Care 126 mg/dL (70-110)
[2020-10-02 00:27] LABS: Glucose Point of Care 170 mg/dL (70-110)
[2020-10-02 00:27] LABS: Glucose Point of Care 153 mg/dL (70-110)
[2020-10-02 00:27] LABS: Glucose Point of Care 108 mg/dL (70-110)
[2020-10-02 04:43] LABS: Glucose Point of Care 114 mg/dL (70-110)
[2020-10-02 04:43] LABS: Glucose Point of Care 81 mg/dL (70-110)
[2020-10-02 04:43] LABS: Glucose Point of Care 98 mg/dL (70-110)
[2020-10-02 04:43] LABS: Glucose Point of Care 101 mg/dL (70-110)
[2020-10-02 05:05] LABS: Alanine Aminotransferase 16 U/L (0-41); Alkaline Phosphatase 60 IU/L (40-130); Anion Gap 16.9 (5-19); Aspartate Amino Transferase 14 U/L (0-40); Blood Urea Nitrogen 12 mg/dL (6-20); Calcium 8.9 mg/dL (8.5-10.5); Carbon Dioxide 20 mmol/L (22-29); Chloride 102 mmol/L (98-107); Globulin 2.7 g/dL (1.3-4.6); Glucose 89 mg/dL (65-115); Osmolality Calculated 279 mOsm/kg (285-295); Potassium 3.9 mmol/L (3.5-5.1); Sodium 135 mmol/L (136-145); Total Bilirubin 0.8 mg/dL (0.15-1.2); Total Protein 6.7 g/dL (6.6-8.7)
[2020-10-02 07:41] LABS: Glucose Point of Care 112 mg/dL (70-110)
[2020-10-02 09:38] LABS: Alanine Aminotransferase 14 U/L (0-41); Albumin Level 4.1 g/dL (3.5-5.2); Alkaline Phosphatase 61 IU/L (40-130); Aspartate Amino Transferase 16 U/L (0-40); Blood Urea Nitrogen 11 mg/dL (6-20); Calcium 8.7 mg/dL (8.5-10.5); Carbon Dioxide 18 mmol/L (22-29); Chloride 101 mmol/L (98-107); Globulin 2.7 g/dL (1.3-4.6); Glomerular Filtration Rate 139.8 mL/min (90-130); Glucose 121 mg/dL (65-115); Osmolality Calculated 279 mOsm/kg (285-295); Sodium 134 mmol/L (136-145); Total Protein 6.8 g/dL (6.6-8.7)
[2020-10-02 09:39] LABS: Anion Gap 19.1 (5-19); Potassium 4.1 mmol/L (3.5-5.1)
[2020-10-02 10:44] LABS: Glucose Point of Care 250 mg/dL (70-110)
--- NOTE | 2020-10-02 11:25 | P.DS_ITS ---
Discharge Providers Date of Admission: 09/30/20 03:53 Date of Discharge: October 02, 2020 Attending Provider at Admission: Boris Boyer MD Attending Provider at Discharge: Xiomara Arevalo MD Primary Care Provider: Anastasia Sebastian APN Diagnoses at Discharge Discharge Diagnosis (1) Vomiting: Status: Acute Qualifiers: Nausea presence: with nausea Vomiting Intractability: non-intractable Vomiting type: unspecified Qualified Code(s): R11.2 - Nausea with vomiting, unspecified (2) DKA (diabetic ketoacidoses): Status: Acute Qualifiers: Diabetes mellitus complication detail: without coma Diabetes mellitus type: type 1 Qualified Code(s): E10.10 - Type 1 diabetes mellitus with ketoacidosis without coma (3) Nausea & vomiting: Status: Acute Qualifiers: Vomiting Intractability: intractable Vomiting type: unspecified Qualified Code(s): R11.2 - Nausea with vomiting, unspecified Reason for Visit Reason for Visit: HIGH BLOOD SUGAR Hospital Course Hospital Course Salvatore Ott is a 25M with type 1 DM on insulin pump at home. Presented to the hospital with abdominal pain, vomiting, elevated sugar and was found to be in DKA. He was treated with insulin infusion as per DKA protocol. After his anion gap closed, in the hospital he was transitioned to subcutaneous insulin (he did not have his insulin pump [place]) , his own insulin pump is being resumed at discharge. He was able to tolerate po intake. Recommend follow up with endocrinology in the next 2 weeks. 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 PROGRAMMER: no focal neuro deficits Discharge Data Data Completed and Pending: Completed Studies During Hospitalization Category Date Time Status XR chest 1V merry ble [id number] Stat Exams 09/30/20 03:42 Completed Pending at discharge Category Date Time Status Arterial Blood Ga s W/O Coox Stat Lab 09/30/20 03:02 Results Labs from last 24 hours 10/02/20 10/02/20 10/02/20 10:42 08:57 07:37 Sodium 134 L Potassium 4.1 Chloride 101 Carbon Dioxide 18 L Anion Gap 19.1 H BUN 11 Creatinine 0.7 GFR Calculation 139.8 H Glucose 121 H POC Glucose 250 H 112 H Calculated Osmolal ity 279 L Calcium 8.7 Total Bilirubin 1.0 AST 16 ALT 14 Alkaline Phosphata se 61 Total Protein 6.8 Albumin 4.1 Globulin 2.7 10/02/20 10/02/20 10/02/20 04:06 02:55 02:55 Sodium 135 L Potassium 3.9 Chloride 102 Carbon Dioxide 20 L Anion Gap 16.9 BUN 12 Creatinine 0.6 L GFR Calculation 167.0 H Glucose 89 POC Glucose 81 98 Calculated Osmolal ity 279 L Calcium 8.9 Total Bilirubin 0.8 AST 14 ALT 16 Alkaline Phosphata se 60 Total Protein 6.7 Albumin 4.0 Globulin 2.7 10/02/20 10/02/20 10/02/20 02:03 01:06 00:23 Sodium Potassium Chloride Carbon Dioxide Anion Gap BUN Creatinine GFR Calculation Glucose POC Glucose 101 114 H 108 Calculated Osmolal ity Calcium Total Bilirubin AST ALT Alkaline Phosphata se Total Protein Albumin Globulin 10/01/20 10/01/20 10/01/20 23:16 22:04 21:05 Sodium Potassium Chloride Carbon Dioxide Anion Gap BUN Creatinine GFR Calculation Glucose POC Glucose 126 H 153 H 170 H Calculated Osmolal ity Calcium Total Bilirubin AST ALT Alkaline Phosphata se Total Protein Albumin Globulin 10/01/20 10/01/20 10/01/20 20:43 19:59 19:14 Sodium 133 L Potassium 4.6 Chloride 101 Carbon Dioxide 19 L Anion Gap 17.6 BUN 14 Creatinine 0.8 GFR Calculation 119.8 Glucose 211 H POC Glucose 210 H 246 H Calculated Osmolal ity 283 L Calcium 9.0 Total Bilirubin 0.7 AST 15 ALT 18 Alkaline Phosphata se 63 Total Protein 6.9 Albumin 4.2 Globulin 2.7 10/01/20 10/01/20 10/01/20 18:34 17:08 16:13 Sodium Potassium Chloride Carbon Dioxide Anion Gap BUN Creatinine GFR Calculation Glucose POC Glucose 278 H 181 H 141 H Calculated Osmolal ity Calcium Total Bilirubin AST ALT Alkaline Phosphata se Total Protein Albumin Globulin 10/01/20 10/01/20 10/01/20 14:49 14:26 13:20 Sodium 135 L Potassium 4.5 Chloride 101 Carbon Dioxide 16 L Anion Gap 22.5 H BUN 16 Creatinine 0.7 GFR Calculation 139.8 H Glucose 124 H POC Glucose 111 H 130 H Calculated Osmolal ity 283 L Calcium 9.5 Total Bilirubin 0.6 AST 17 ALT 20 Alkaline Phosphata se 67 Total Protein 7.4 Albumin 4.5 Globulin 2.9 10/01/20 12:16 Sodium Potassium Chloride Carbon Dioxide Anion Gap BUN Creatinine GFR Calculation Glucose POC Glucose 209 H Calculated Osmolal ity Calcium Total Bilirubin AST ALT Alkaline Phosphata se Total Protein Albumin Globulin Vitals: Last Vital Signs Temp 99.0 F 10/02/20 02:00 Pulse 89 10/02/20 10:00 Resp 22 H 10/02/20 10:00 BP 136/79 10/02/20 10:00 Pulse Ox 98 10/02/20 10:00 Discharge Plan Discharge Patient Disposition: Home Condition: Stable Prescriptions: Continued promethazine 25 mg tablet 25 mg PO PRN PRN (Reason: nausea/vomiting) RF: 0 pantoprazole 40 mg tablet,delayed release (DR/EC) 40 mg PO DAILY RF: 0 Fiasp U-100 Insulin 100 unit/mL solution See Rx Instructions .ROUTE .COMPLEX RF: 0 Discharge Orders: Discharge Order (Routine); Ordered 10/02/20 Ordered By: Xiomara Arevalo Referrals: Anastasia Sebastian APN [Primary Care Provider] - Discharge Diet: Diabetic Discharge Activity: Resume usual activity Discharge Attestations Time Spent in Discharge Care*: less than 30 min Status at Discharge: Cognitive status at discharge: cognitively intact , Behavioral status at discharge: cooperative , Quality Metrics Clinical Quality Measures During this hospital stay, did patient experience: None Coding Level of Care Code Acute Open 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
[2020-10-02 11:54] LABS: Glucose Point of Care 202 mg/dL (70-110)
--- NOTE | 2020-10-02 12:38 | PC.NURSE ---
Discharge instructions given to patient. Patient insulin pump on and working. IVs removed. No questions. Patient ambulated to private vehicle accompanied by this nurse.
[2020-10-02 19:18] LABS: Blood Gas Operator Identificat PE
== END 2020-10-02 12:39 | disposition home or self-care (01) | DRG 638 ==
LOC: ER 03:55 → ICU 04:24
PROVIDERS: Admitting Provider Internal Medicine; Emergency Provider Emergency Medicine; PCP Nurse Practitioner Family; Visit Provider Student in an Organized Health Care Education/Training Program
DX: E10.10 Type 1 diabetes mellitus with ketoacidosis without coma (principal); E87.3 Alkalosis; Z96.41 Presence of insulin pump (external) (internal); F12.10 Cannabis abuse, uncomplicated; K21.9 Gastro-esophageal reflux disease without esophagitis; Z87.891 Personal history of nicotine dependence
CPT/HCPCS: 12345; 36415; 36416; 71045; 80053; 80306; 80307; 82009; 82803; 82962; 83036; 83690; 83735; 84100; 84478; 84484; 85025; 96372; 99283; J1815; J2270; J2405; J2765; J7030; J7050

== ENCOUNTER 2020-10-18 13:05 | Emergency (ER) | payer MEDICARE, MEDICAID, SELFPAY ==
[2020-10-18 13:28] LABS: Glucose Point of Care 497 mg/dL (70-110)
[2020-10-18 13:33] VITALS: BP 129/74; PULSE 100; RESP 24; O2SAT 97; BMI 26.6
--- NOTE | 2020-10-18 13:33 | W.ED.ABDPA2 ---
HPI - Abdominal Pain General: Chief Complaint: Nausea/Vomiting/Diarrhea Stated Complaint: ABDOMINAL PAIN / HYPERGLYCEMIA Time Seen by Provider: 10/18/20 13:26 Source: patient, RN notes reviewed and old records reviewed Limitations: altered mental status (Mild confusion) History of Present Illness: HPI narrative: This patient is a 25-year-old male utx-wimufwg-kcwkxkljh diabetes patient does have an insulin pump to the posterior left arm. Patient has long history of multiple DKA evaluations. Patient states had nausea and vomiting over the past several hours. Patient has ketotic breath. Patient is somewhat confused but does answer questions. Will do medical evaluation treat as needed MD elicited complaint: abdominal pain Onset (ago): hour(s) Pain Consistency: constant Location: Epigastric Severity: moderate Quality: cramping Radiation: none Associated Symptoms: Reports nausea and vomiting; Denies chills, constipation, diarrhea and fever(s) Review of Systems General: Reports: 10 or more systems reviewed and unremarkable except in HPI and below Const: Reports: body aches; Denies: fever(s) or chills Eyes: Denies: change in vision or blurry vision ENMT: Reports: throat pain Card: Denies: chest pain or palpitations Resp: Denies: dyspnea or productive cough GI: Reports: abdominal pain, nausea and vomiting; Denies: diarrhea or constipation : Denies: flank pain or difficulty urinating Skin/Breast: Denies: rash Neuro: Denies: headache(s), numbness in extremities, weakness in extremities, sensory changes, lack of coordination or difficulty walking Psych: Reports: anxiety PFSH ED PFSH: Medical History Diabetes mellitus Resolved GERD (gastroesophageal reflux disease) Type 1 diabetes Surgical History No pertinent past surgical history Family History Other Diabetes Social History Smoking and tobacco status: former smoker Alcohol intake: never Household members: family Housing: House Physical Exam Const: GENERAL APPEARANCE: cooperative, in distress and ill appearing ORIENTATION/CONSCIOUSNESS: Yes awake and Yes oriented to person HENMT: COMMON NORMALS: normocephalic, atraumatic, EAC's normal and Normal external nose present HEAD & SCALP: normocephalic and atraumatic NOSE: Normal external nose present and Normal nares present EXTERNAL AUDITORY CANAL: EAC's normal Neck/C-Spine: COMMON NORMALS: no JVD Chest: COMMONS NORMALS: normal inspection of the chest, normal palpation of entire chest wall, normal inspection of the breasts and normal palpation of the breasts Breast/axilla inspection: Yes normal inspection of the breasts BREAST/AXILLA PALPATION: Yes normal palpation of the breasts Resp: COMMON NORMALS: No retractions and clear to auscultation bilaterally EFFORT & INSPECTION: Yes able to speak in complete sentences and Yes tachypneic AUSCULTATION: clear to auscultation bilaterally Cardio: COMMON NORMALS: no JVD and regular rhythm RATE: tachycardic RHYTHM: regular rhythm GI: COMMON NORMALS: Normal to inspection, nondistended, normoactive bowel sounds present, Soft to palpation and non-tender INSPECTION: Yes normal to inspection PALPATION: Yes Soft to palpation Neuro: SENSORIUM/ORIENTATION: Yes oriented to person Psych: COMMON NORMALS: speech normal ACTIVITY/MOTOR BEHAVIOR: Yes appropriate eye contact SPEECH: Yes normal speech Course Reevaluation(s): Reevaluation #1: Patient appears to be in DKA again. Patient's ABG pH is 7.149. Patient still having nausea vomiting. Will order some Reglan. Time: 14:06 Reevaluation #2: Patient nausea seems somewhat improved. Patient appears to be in DKA. Patient is on insulin drip. Patient will be transferred. Due to no bed availability in the ICU here at this facility. We will continue to find placement for this patient. Time: 15:13 Reevaluation #3: Patient is agreeable for transfer to [facility]. Nausea vomiting is resolved. Time: 15:30 Consultations: Consultation #1: I have discussed with Dr. Colón ICU doctor at [facility] in [facility]. She is accepted this patient for transfer. Time: 15:30 Vital Signs: Vital signs: Vital Signs Pulse Rate 108 H 10/18/20 16:25 Respiratory Rate 18 10/18/20 16:25 Blood Pressure 139/79 10/18/20 16:25 Pulse Oximetry 99 10/18/20 16:25 MDM - Abdominal Pain MDM Narrative: Medical decision making narrative: DKA Differential Diagnosis: Differential diagnosis abdominal pain: Likely abdominal pain, acute appendicitis, calculus of kidney, constipation, diverticulitis, endometriosis and gastroenteritis Medical Records: Attestation: I reviewed the patient's medical records. Lab Data: Attestation: I reviewed the patient's lab results. Labs: Lab Results 10/18/20 10/18/20 10/18/20 Range/Units 13:24 13:45 13:45 WBC 12.5 H (4.0-10.0) 10^3/ uL RBC 5.58 H (4.1-5.3) 10^6/u L Hgb 17.4 H (11.7-16.6) g/dL Hct 51.1 (42.0-52.0) % MCV 91.6 (80-94) fL MCH 31.2 (28.0-34.0) pg MCHC 34.1 (30.0-36.0) g/dL RDW 12.7 (12.1-15.1) % Plt Count 334 (130-400) 10^3/c mm MPV 11.1 H (7.4-10.4) fL Neut % (Auto) 91.6 % Lymph % (Auto) 5.6 % Foard % (Auto) 1.6 % Eos % (Auto) 0.0 % Baso % (Auto) 0.6 % Neut # (Auto) 11.43 H (1.8-7.7) 10^3/u L Lymph # (Auto) 0.7 L (0.8-4.8) 10^3/u L Foard # (Auto) 0.2 (0.2-0.9) 10^3/u L Eos # (Auto) 0.0 (0.0-0.8) 10^3/u L Baso # (Auto) 0.1 (0.0-0.1) 10^3/u L Nucleated RBC % (a uto) 0 % Nucleated RBCs # 0.0 /100WBC Specimen Type Sample Site ABG pH (7.35-7.45) ABG pCO2 (35-45) mmHg ABG pO2 (80.0-100.0) mmH g ABG HCO3 (22-26) mmol/L ABG O2 Saturation ABG Base Excess (-2.0-2.0) mmol/ L Hasmukh Test A-a O2 Gradient (5-10) mmHg Hematocrit (42-52) % Hgb O2 Saturation (95-100) % Carboxyhemoglobin (0.4-20.1) %THgb Methemoglobin (0.4-1.5) % Total Hemoglobin (14-18) g/dL Ionized Calcium (1.1-1.4) mmol/L O2 Delivery Device FiO2 % Sailing Master ID Sodium 132 L (136-145) mmol/L Potassium 6.1 H (3.5-5.1) mmol/L Chloride 90 L (98-107) mmol/L Carbon Dioxide 10 L (22-29) mmol/L Anion Gap 38.1 H (5-19) BUN 24 H (6-20) mg/dL Creatinine 1.1 (0.7-1.2) mg/dL GFR Calculation Not Reportable Glucose 515 H* (65-115) mg/dL POC Glucose 497 H (70-110) mg/dL Calculated Osmolal ity 301 H (285-295) mOsm/k g Calcium 10.3 (8.5-10.5) mg/dL Total Bilirubin 0.7 (0.15-1.2) mg/dL AST 27 (0-40) U/L ALT 23 (0-41) U/L Alkaline Phosphata se 90 (40-130) IU/L Total Protein 8.4 (6.6-8.7) g/dL Albumin 5.5 H (3.5-5.2) g/dL Globulin 2.9 (1.3-4.6) g/dL Lipase 12 L (13-60) U/L Urine Color (Yellow) Urine Appearance (CLEAR) Urine pH (5-7) Ur Specific Gravit y (1.005-1.030) Urine Protein (Negative) Urine Glucose (UA) (Normal) Urine Ketones (Negative) Urine Blood (Negative) Urine Nitrate (Negative) Urine Bilirubin (Negative) Urine Urobilinogen (Negative) mg/dL Ur Leukocyte Mini ase (Negative) Urine Opiates Scre en (Negative) ng/mL Ur Barbiturates Sc reen (Negative) ng/mL Ur Phencyclidine S crn (Negative) ng/mL Ur Amphetamines Sc reen (Negative) ng/mL U Benzodiazepines Scrn (Negative) ng/mL Urine Cocaine Scre en (Negative) ng/mL U Marijuana (THC) Screen (Negative) ng/mL 10/18/20 10/18/20 10/18/20 Range/Units 13:56 15:30 15:30 WBC (4.0-10.0) 10^3/ uL RBC (4.1-5.3) 10^6/u L Hgb (11.7-16.6) g/dL Hct (42.0-52.0) % MCV (80-94) fL MCH (28.0-34.0) pg MCHC (30.0-36.0) g/dL RDW (12.1-15.1) % Plt Count (130-400) 10^3/c mm MPV (7.4-10.4) fL Neut % (Auto) % Lymph % (Auto) % Foard % (Auto) % Eos % (Auto) % Baso % (Auto) % Neut # (Auto) (1.8-7.7) 10^3/u L Lymph # (Auto) (0.8-4.8) 10^3/u L Foard # (Auto) (0.2-0.9) 10^3/u L Eos # (Auto) (0.0-0.8) 10^3/u L Baso # (Auto) (0.0-0.1) 10^3/u L Nucleated RBC % (a uto) % Nucleated RBCs # /100WBC Specimen Type Arterial Sample Site Radial, left ABG pH 7.15 L* (7.35-7.45) ABG pCO2 26.2 L (35-45) mmHg ABG pO2 107.0 H (80.0-100.0) mmH g ABG HCO3 9.1 L (22-26) mmol/L ABG O2 Saturation 96.7 ABG Base Excess -18.1 L (-2.0-2.0) mmol/ L Hasmukh Test Pos A-a O2 Gradient 1.2 L (5-10) mmHg Hematocrit 54.4 H (42-52) % Hgb O2 Saturation 95.1 (95-100) % Carboxyhemoglobin 1.1 (0.4-20.1) %THgb Methemoglobin 0.5 (0.4-1.5) % Total Hemoglobin 17.8 (14-18) g/dL Ionized Calcium 1.3 (1.1-1.4) mmol/L O2 Delivery Device Room air FiO2 21.0 % Sailing Master ID [place] Sodium 138.0 (136-145) mmol/L Potassium 5.4 H (3.5-5.1) mmol/L Chloride (98-107) mmol/L Carbon Dioxide (22-29) mmol/L Anion Gap (5-19) BUN (6-20) mg/dL Creatinine (0.7-1.2) mg/dL GFR Calculation Glucose 519.0 H (65-115) mg/dL POC Glucose (70-110) mg/dL Calculated Osmolal ity (285-295) mOsm/k g Calcium (8.5-10.5) mg/dL Total Bilirubin (0.15-1.2) mg/dL AST (0-40) U/L ALT (0-41) U/L Alkaline Phosphata se (40-130) IU/L Total Protein (6.6-8.7) g/dL Albumin (3.5-5.2) g/dL Globulin (1.3-4.6) g/dL Lipase (13-60) U/L Urine Color Straw (Yellow) Urine Appearance Clear (CLEAR) Urine pH 5 (5-7) Ur Specific Gravit y 1.015 (1.005-1.030) Urine Protein Neg (Negative) Urine Glucose (UA) 4+ H (Normal) Urine Ketones 3+ H (Negative) Urine Blood Neg (Negative) Urine Nitrate Negative (Negative) Urine Bilirubin Neg (Negative) Urine Urobilinogen Norm (Negative) mg/dL Ur Leukocyte Mini ase Negative (Negative) Urine Opiates Scre en Negative (Negative) ng/mL Ur Barbiturates Sc reen Negative (Negative) ng/mL Ur Phencyclidine S crn Negative (Negative) ng/mL Ur Amphetamines Sc reen Negative (Negative) ng/mL U Benzodiazepines Scrn Negative (Negative) ng/mL Urine Cocaine Scre en Negative (Negative) ng/mL U Marijuana (THC) Screen Positive H (Negative) ng/mL 10/18/20 10/18/20 Range/Units 16:01 16:52 WBC (4.0-10.0) 10^3/ uL RBC (4.1-5.3) 10^6/u L Hgb (11.7-16.6) g/dL Hct (42.0-52.0) % MCV (80-94) fL MCH (28.0-34.0) pg MCHC (30.0-36.0) g/dL RDW (12.1-15.1) % Plt Count (130-400) 10^3/c mm MPV (7.4-10.4) fL Neut % (Auto) % Lymph % (Auto) % Foard % (Auto) % Eos % (Auto) % Baso % (Auto) % Neut # (Auto) (1.8-7.7) 10^3/u L Lymph # (Auto) (0.8-4.8) 10^3/u L Foard # (Auto) (0.2-0.9) 10^3/u L Eos # (Auto) (0.0-0.8) 10^3/u L Baso # (Auto) (0.0-0.1) 10^3/u L Nucleated RBC % (a uto) % Nucleated RBCs # /100WBC Specimen Type Sample Site ABG pH (7.35-7.45) ABG pCO2 (35-45) mmHg ABG pO2 (80.0-100.0) mmH g ABG HCO3 (22-26) mmol/L ABG O2 Saturation ABG Base Excess (-2.0-2.0) mmol/ L Hasmukh Test A-a O2 Gradient (5-10) mmHg Hematocrit (42-52) % Hgb O2 Saturation (95-100) % Carboxyhemoglobin (0.4-20.1) %THgb Methemoglobin (0.4-1.5) % Total Hemoglobin (14-18) g/dL Ionized Calcium (1.1-1.4) mmol/L O2 Delivery Device FiO2 % Sailing Master ID Sodium (136-145) mmol/L Potassium (3.5-5.1) mmol/L Chloride (98-107) mmol/L Carbon Dioxide (22-29) mmol/L Anion Gap (5-19) BUN (6-20) mg/dL Creatinine (0.7-1.2) mg/dL GFR Calculation Glucose (65-115) mg/dL POC Glucose 466 H 361 H (70-110) mg/dL Calculated Osmolal ity (285-295) mOsm/k g Calcium (8.5-10.5) mg/dL Total Bilirubin (0.15-1.2) mg/dL AST (0-40) U/L ALT (0-41) U/L Alkaline Phosphata se (40-130) IU/L Total Protein (6.6-8.7) g/dL Albumin (3.5-5.2) g/dL Globulin (1.3-4.6) g/dL Lipase (13-60) U/L Urine Color (Yellow) Urine Appearance (CLEAR) Urine pH (5-7) Ur Specific Gravit y (1.005-1.030) Urine Protein (Negative) Urine Glucose (UA) (Normal) Urine Ketones (Negative) Urine Blood (Negative) Urine Nitrate (Negative) Urine Bilirubin (Negative) Urine Urobilinogen (Negative) mg/dL Ur Leukocyte Mini ase (Negative) Urine Opiates Scre en (Negative) ng/mL Ur Barbiturates Sc reen (Negative) ng/mL Ur Phencyclidine S crn (Negative) ng/mL Ur Amphetamines Sc reen (Negative) ng/mL U Benzodiazepines Scrn (Negative) ng/mL Urine Cocaine Scre en (Negative) ng/mL U Marijuana (THC) Screen (Negative) ng/mL Discharge Plan Discharge Patient Disposition: Xfer Short-Term Hosp Clinical Impression: DKA, type 1, Hyperglycemia, Diabetes mellitus Condition: Stable Discharge Orders: Transfer Out of Facility (Order); Ordered 10/18/20 Ordered By: Spike Szymanski Referrals: Anastasia Sebastian APN [Primary Care Provider] - Coding Level of Care Code ED Retail Sales Consultant for Chg Fwd Exam Comprehensive
[2020-10-18] MEDS: sodium chloride 0.9% 1,000 ML 999 ML IV ×2 (13:52→17:15)
[2020-10-18] MEDS: ondansetron 2 mg/ML SDV 2 mL 4 MG IVP (13:52)
[2020-10-18 13:59] LABS: ABG PCO2 26.2 mmHg (35-45); Alveolar-Arterial Oxygen Gradi 1.2 mmHg (5-10); Arterial Blood Gas Hematocrit 54.4 % (42-52); Base Excess ABG -18.1 mmol/L (-2.0-2.0); Blood Gas Allen Test Pos; Blood Gas Operator Identificat MONRO; Blood Gas Sample Site Radial, left; Blood Gas Sample Type Arterial; Carboxyhemoglobin 1.1 %THgb (0.4-20.1); HCO3 ABG 9.1 mmol/L (22-26); HGB O2 Sat 95.1 % (95-100); Ionized Calcium Level - ABG 1.3 mmol/L (1.1-1.4); Methemoglobin 0.5 % (0.4-1.5); Oxygen Device ROOM AIR; Oxygen Saturation ABG 96.7; Potassium Level - ABG 5.4 mmol/L (3.5-5.0); Total Hemoglobin 17.8 g/dL (14-18)
[2020-10-18 14:00] LABS: ABG PH Result 7.15 (7.35-7.45)
[2020-10-18 14:19] LABS: Basophils # 0.1 10^3/uL (0.0-0.1); Basophils % 0.6 %; Hematocrit 51.1 % (42.0-52.0); Hemoglobin 17.4 g/dL (11.7-16.6); Lymphocytes # 0.7 10^3/uL (0.8-4.8); Lymphocytes % 5.6 %; Mean Corpuscular HGB Conc 34.1 g/dL (30.0-36.0); Mean Corpuscular Hemoglobin 31.2 pg (28.0-34.0); Mean Corpuscular Volume 91.6 fL (80-94); Mean Platelet Volume 11.1 fL (7.4-10.4); Monocytes # 0.2 10^3/uL (0.2-0.9); Monocytes % 1.6 %; Neutrophils # 11.43 10^3/uL (1.8-7.7); Neutrophils % 91.6 %; Nucleated Red Blood Cells % 0 %; Platelet Count 334 10^3/cmm (130-400); Red Blood Count 5.58 10^6/uL (4.1-5.3); Red Cell Distribution Width 12.7 % (12.1-15.1); White Blood Count 12.5 10^3/uL (4.0-10.0)
[2020-10-18] MEDS: metoclopramide 5 mg/mL SDV 2 mL 10 MG IVP (14:21)
[2020-10-18] MEDS: insulin regular-human 250 UNIT in sodium chloride 0.9% 250 ML 13.1 UNIT IV (15:00)
[2020-10-18 15:04] VITALS: PULSE 111; RESP 20; O2SAT 98
[2020-10-18 15:20] LABS: Alanine Aminotransferase 23 U/L (0-41); Albumin Level 5.5 g/dL (3.5-5.2); Alkaline Phosphatase 90 IU/L (40-130); Anion Gap 38.1 (5-19); Blood Urea Nitrogen 24 mg/dL (6-20); Calcium 10.3 mg/dL (8.5-10.5); Carbon Dioxide 10 mmol/L (22-29); Chloride 90 mmol/L (98-107); Globulin 2.9 g/dL (1.3-4.6); Lipase 12 U/L (13-60); Osmolality Calculated 301 mOsm/kg (285-295); Total Bilirubin 0.7 mg/dL (0.15-1.2); Total Protein 8.4 g/dL (6.6-8.7)
[2020-10-18 15:21] LABS: Potassium 6.1 mmol/L (3.5-5.1)
[2020-10-18 15:22] LABS: Aspartate Amino Transferase 27 U/L (0-40); Sodium 132 mmol/L (136-145)
[2020-10-18 15:24] LABS: Glucose 515 mg/dL (65-115)
[2020-10-18 15:34] VITALS: BP 110/68; PULSE 112; RESP 20; O2SAT 100
[2020-10-18 16:00] LABS: Add Urine Microscopic? NO
[2020-10-18 16:04] LABS: Bilirubin Urine Neg (Negative); Blood Urine Neg (Negative); Glucose Urine UA 4+ (Normal); Ketones Urine 3+ (Negative); Leukocyte Esterase Urine Negative (Negative); Nitrate Urine Negative (Negative); Protein Urine Neg (Negative); Specific Gravity, Urine 1.015 (1.005-1.030); Urine Appearance Clear (CLEAR); Urine Color Straw (Yellow); Urobilinogen Urine Norm (Negative); pH Urine 5 (5-7)
[2020-10-18 16:13] LABS: Amphetamines Screen Urine Negative (Negative); Barbiturates Screen Urine Negative (Negative); Benzodiazepines Screen Urine Negative (Negative); Cocaine Screen Urine Negative (Negative); Opiate Screen Urine Negative (Negative); PCP Screen Urine Negative (Negative); THC Screen Urine Positive (Negative)
[2020-10-18 16:18] LABS: Glucose Point of Care 466 mg/dL (70-110)
[2020-10-18 16:25] VITALS: BP 139/79; PULSE 108; RESP 18; O2SAT 99
--- NOTE | 2020-10-18 16:43 | PC.NURSE ---
pt was tachycardic at a rate of 160bpm ER physician in room to assess pt
[2020-10-18 17:00] LABS: Glucose Point of Care 361 mg/dL (70-110)
== END 2020-10-18 17:16 | disposition short-term general hospital (02) ==
PROVIDERS: Emergency Provider Emergency Medicine; PCP Nurse Practitioner Family
DX: E10.10 Type 1 diabetes mellitus with ketoacidosis without coma (principal); Z87.891 Personal history of nicotine dependence; R41.0 Disorientation, unspecified
CPT/HCPCS: 36416; 36600; 80051; 80053; 80306; 81003; 82330; 82805; 82962; 83605; 83690; 85025; 96361; 96365; 96366; 96375; 99285; J1815; J2405; J2765; J7030; J7050

== ENCOUNTER 2020-10-31 21:21 | Inpatient (IN) | payer MEDICARE, MEDICAID, SELFPAY ==
[2020-10-31 21:21] VITALS: BP 83/60; PULSE 140; RESP 32; O2SAT 98; BMI 22.8
[2020-10-31 21:26] LABS: Arterial Blood Gas Hematocrit 51.3 % (42-52); Base Excess ABG -28.5 mmol/L (-2.0-2.0); Blood Gas Operator Identificat HARKR; Blood Gas Sample Site Brachial, right; Blood Gas Sample Type Arterial; Carboxyhemoglobin 0.4 %THgb (0.4-20.1); HCO3 ABG 2.3 mmol/L (22-26); HGB O2 Sat 95.8 % (95-100); Ionized Calcium Level - ABG 1.2 mmol/L (1.1-1.4); Methemoglobin 1.2 % (0.4-1.5); Oxygen Device ROOM AIR; Oxygen Saturation ABG 97.4; Potassium Level - ABG 6.8 mmol/L (3.5-5.0); Total Hemoglobin 16.7 g/dL (14-18)
--- NOTE | 2020-10-31 21:26 | CTR_ITS ---
PROCEDURE INFORMATION: Exam: CT Head Without Contrast Exam date and time: 10/31/2020 9:31 PM Age: 25 years old Clinical indication: Altered mental status/memory loss; Additional info: AMS, hyperglycemia TECHNIQUE: Imaging protocol: Computed tomography of the head without contrast. Radiation optimization: All CT scans at this facility use at least one of these dose optimization techniques: automated exposure control; mA and/or kV adjustment per patient size (includes targeted exams where dose is matched to clinical indication); or iterative reconstruction. COMPARISON: No relevant prior studies available. RADIATION DOSE METRICS: Total DLP (mGy-cm): 562.18 FINDINGS: Brain: Normal. No hemorrhage. Unremarkable white matter. No mass effect. Cerebral ventricles: No ventriculomegaly. Bones/joints: Unremarkable. No acute fracture. Paranasal sinuses: Visualized sinuses are unremarkable. No fluid levels. Mastoid air cells: Visualized mastoid air cells are well aerated. Soft tissues: Unremarkable. CT/CT head wo con* [id number] IMPRESSION: No acute intracranial abnormality. Radiation Dose CTDIVOL = (mGy): DLP = 562.18 (mGy-cm)
--- NOTE | 2020-10-31 21:26 | XRR_ITS ---
PROCEDURE INFORMATION: Exam: XR Chest Exam date and time: 10/31/2020 10:06 PM Age: 25 years old Clinical indication: Other: AMS TECHNIQUE: Imaging protocol: XR of the chest Views: 1 view. COMPARISON: CR XR chest 1V portable [id number] 09/30/2020 3:46 AM FINDINGS: Lungs: Unremarkable. No consolidation. Pleural spaces: Unremarkable. No pleural effusion. No pneumothorax. Heart/Mediastinum: Unremarkable. No cardiomegaly. Bones/joints: Unremarkable. XR/XR chest 1V portable [id number] IMPRESSION: No acute findings.
[2020-10-31 21:27] LABS: ABG PCO2 10.9 mmHg (35-45); ABG PH Result 6.93 (7.35-7.45)
--- NOTE | 2020-10-31 21:27 | ECG_ITS ---
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 Measurements Intervals [place] Rate: 141 P: 83 MI: 130 QRS: 80 QRSD: 94 T: 66 QT: 281 QTc: 432 Interpretive Statements SINUS TACHYCARDIA, POSSIBLE ATRIAL FLUTTER EARLY REPOLARIZATION [ST ELEVATION WITH NORMALLY INFLECTED T WAVE] No previous ECG available for comparison Electronically Signed On 11-01-2020 10:42:26 VP PRODUCTION by Macey Rogers M.D. [email or web address] [email or web address] [id number] f
[2020-10-31 21:28] VITALS: BP 83/60; PULSE 140; RESP 33; O2SAT 96
[2020-10-31] MEDS: sodium chloride 0.9% 1,000 ML 999 ML IV ×4 (21:46→23:55)
[2020-10-31 21:48] LABS: Glucose Point of Care > 600 mg/dL (70-110)
--- NOTE | 2020-10-31 21:48 | W.ED.GENADLT ---
HPI - General Adult General: Chief complaint: General Medical Stated complaint: Hyperglycemia Time Seen by Provider: 10/31/20 21:25 History of Present Illness: HPI narrative: 25-year-old male type I diabetic with a history of episodes of DKA. He presents by EMS after friends he lives with called 911 evidently. The patient been sick, vomiting, and was very lethargic. He presents with altered mental status, rapid breathing, and a low blood pressure. He does not answer questions appropriately. Onset (ago): unknown Location: head and abdomen Severity: severe Relieving factors: none Associated symptoms: Reports confusion and vomiting Treatments prior to arrival: none Review of Systems General: Reports: ROS unobtainable due to mental status GI: Reports: vomiting Neuro: Reports: confusion PFSH ED PFSH: Medical History Diabetes mellitus Resolved GERD (gastroesophageal reflux disease) Type 1 diabetes Surgical History No pertinent past surgical history Family History Other Diabetes Social History Smoking and tobacco status: former smoker Alcohol intake: never Substance/Drug Use: current Substance/Drug use type: Marijuana Household members: friend(s) Housing: House Physical Exam Const: GENERAL APPEARANCE: ill appearing and frail appearing ORIENTATION/CONSCIOUSNESS: Yes patient obtunded Chest: COMMONS NORMALS: normal inspection of the chest Resp: COMMON NORMALS: clear to auscultation bilaterally EFFORT & INSPECTION: Yes tachypneic, Yes respiratory distress, No audible wheezes and No tracheal deviation AUSCULTATION: clear to auscultation bilaterally Cardio: COMMON NORMALS: regular rhythm RATE: tachycardic RHYTHM: regular rhythm PERIPHERAL PULSES: brachial pulses present GI: COMMON NORMALS: Normal to inspection, nondistended, normoactive bowel sounds present and no masses Neuro: SENSORIUM/ORIENTATION: Yes obtunded CRANIAL NERVES: Yes CN normal except as noted SPEECH: abnormal speech GAIT: Yes Unable to assess gait Course Consultations: Consultation #1: [email or web address] Time: 23:34 Vital Signs: Vital signs: Vital Signs Temperature 95.9 F L 10/31/20 22:48 Pulse Rate 119 H 10/31/20 23:33 Respiratory Rate 20 H 10/31/20 23:33 Blood Pressure 124/52 10/31/20 23:33 Pulse Oximetry 98 10/31/20 23:33 MDM - General Adult MDM Narrative: Medical decision making narrative: 25-year-old male type I diabetic and diabetic ketoacidosis. Initial ABG shows a pH of 6.93 with a bicarbonate level of 2.3. By BMP, bicarb is 4. White blood cell count is 20. Hemoglobin is 15.8. Head CT and chest x-ray are negative. Patient's had 4 L of fluid, 2 A of bicarb initially. Also a bolus of 10 units of insulin followed by a drip at 6 units an hour. Lab Data: Labs: Lab Results 10/31/20 10/31/20 10/31/20 Range/Units 21:16 21:23 21:30 WBC Cancelled Corrected WBC Cancelled RBC Cancelled Hgb Cancelled Hct Cancelled MCV Cancelled MCH Cancelled MCHC Cancelled RDW Cancelled Plt Count Cancelled MPV Cancelled Gran % Cancelled Neut % (Auto) Cancelled Lymph % (Auto) Cancelled [place]born % (Auto) Cancelled Eos % (Auto) Cancelled Baso % (Auto) Cancelled Neut # (Auto) Cancelled Lymph # (Auto) Cancelled [place]born # (Auto) Cancelled Eos # (Auto) Cancelled Baso # (Auto) Cancelled Absolute Gran (aut o) Cancelled Nucleated RBC % (a uto) Cancelled Nucleated RBCs # Cancelled Specimen Type Arterial Sample Site Brachial, right ABG pH 6.93 L* (7.35-7.45) ABG pCO2 10.9 L* (35-45) mmHg ABG pO2 146.0 H (80.0-100.0) mmH g ABG HCO3 2.3 L (22-26) mmol/L ABG O2 Saturation 97.4 ABG Base Excess -28.5 L (-2.0-2.0) mmol/ L Hasmukh Test N/a Hematocrit 51.3 (42-52) % Hgb O2 Saturation 95.8 (95-100) % Carboxyhemoglobin 0.4 (0.4-20.1) %THgb Methemoglobin 1.2 (0.4-1.5) % Total Hemoglobin 16.7 (14-18) g/dL Sodium 137.0 (131-143) mmol/L Potassium 6.8 H (3.5-5.0) mmol/L Glucose 845.0 H (70-115) mg/dL Ionized Calcium 1.2 (1.1-1.4) mmol/L O2 Delivery Device Room air FiO2 21.0 % Buckle Sewer ID Harkr Chloride Carbon Dioxide Anion Gap BUN Creatinine GFR Calculation POC Glucose > 600 H* (70-110) mg/dL Calculated Osmolal ity Lactate Calcium Phosphorus Magnesium Total Bilirubin AST ALT Alkaline Phosphata se C-Reactive Protein Total Protein Albumin Globulin Lipase Ethyl Alcohol 10/31/20 10/31/20 10/31/20 Range/Units 21:30 21:30 22:26 WBC 20.6 H Corrected WBC RBC 5.06 Hgb 15.8 Hct 51.3 MCV 101.4 H MCH 31.2 MCHC 30.8 RDW 12.9 Plt Count 330 MPV 9.8 Gran % Neut % (Auto) 91.1 Lymph % (Auto) 2.7 [place] % (Auto) 4.6 Eos % (Auto) 0.0 Baso % (Auto) 0.4 Neut # (Auto) 18.73 H Lymph # (Auto) 0.6 L [place] # (Auto) 1.0 H Eos # (Auto) 0.0 Baso # (Auto) 0.1 Absolute Gran (aut o) Nucleated RBC % (a uto) 0 Nucleated RBCs # 0.0 Specimen Type Sample Site ABG pH (7.35-7.45) ABG pCO2 (35-45) mmHg ABG pO2 (80.0-100.0) mmH g ABG HCO3 (22-26) mmol/L ABG O2 Saturation ABG Base Excess (-2.0-2.0) mmol/ L Hasmukh Test Hematocrit (42-52) % Hgb O2 Saturation (95-100) % Carboxyhemoglobin (0.4-20.1) %THgb Methemoglobin (0.4-1.5) % Total Hemoglobin (14-18) g/dL Sodium Cancelled (131-143) mmol/L Potassium Cancelled (3.5-5.0) mmol/L Glucose Cancelled (70-115) mg/dL Ionized Calcium (1.1-1.4) mmol/L O2 Delivery Device FiO2 % Buckle Sewer ID Chloride Cancelled Carbon Dioxide Cancelled Anion Gap Cancelled BUN Cancelled Creatinine Cancelled GFR Calculation Cancelled POC Glucose (70-110) mg/dL Calculated Osmolal ity Cancelled Lactate Cancelled Calcium Cancelled Phosphorus Cancelled Magnesium Cancelled Total Bilirubin Cancelled AST Cancelled ALT Cancelled Alkaline Phosphata se Cancelled C-Reactive Protein Cancelled Total Protein Cancelled Albumin Cancelled Globulin Cancelled Lipase Cancelled Ethyl Alcohol Cancelled 10/31/20 Range/Units 22:26 WBC Corrected WBC RBC Hgb Hct MCV MCH MCHC RDW Plt Count MPV Gran % Neut % (Auto) Lymph % (Auto) Sanborn % (Auto) Eos % (Auto) Baso % (Auto) Neut # (Auto) Lymph # (Auto) [place] # (Auto) Eos # (Auto) Baso # (Auto) Absolute Gran (aut o) Nucleated RBC % (a uto) Nucleated RBCs # Specimen Type Sample Site ABG pH (7.35-7.45) ABG pCO2 (35-45) mmHg ABG pO2 (80.0-100.0) mmH g ABG HCO3 (22-26) mmol/L ABG O2 Saturation ABG Base Excess (-2.0-2.0) mmol/ L Hasmukh Test Hematocrit (42-52) % Hgb O2 Saturation (95-100) % Carboxyhemoglobin (0.4-20.1) %THgb Methemoglobin (0.4-1.5) % Total Hemoglobin (14-18) g/dL Sodium 141 (131-143) mmol/L Potassium 6.4 H (3.5-5.0) mmol/L Glucose 779 H* (70-115) mg/dL Ionized Calcium (1.1-1.4) mmol/L O2 Delivery Device FiO2 % Buckle Sewer ID Chloride 97 L Carbon Dioxide 4 L* Anion Gap 46.4 H BUN 31 H Creatinine 2.0 H GFR Calculation 41.6 L POC Glucose (70-110) mg/dL Calculated Osmolal ity 336 H Lactate Calcium 7.9 L Phosphorus 9.2 H* Magnesium 3.0 H Total Bilirubin 0.2 AST 19 ALT 23 Alkaline Phosphata se 73 C-Reactive Protein 0.3 Total Protein 7.1 Albumin 4.5 Globulin 2.6 Lipase 404 H Ethyl Alcohol Critical Care Time Critical Care Time: Critical Care Time: Yes Total Critical Care Time: 40 Attestation: This case had a high probability of a clinically significant, sudden, or life threatening deterioration of this patient's condition which required my full and direct attention, intervention and personal management. Discharge Plan Discharge Patient Disposition: Admitted As Inpatient Admit Provider: Boris Boyer Clinical Impression: DKA (diabetic ketoacidoses) Qualifiers: Diabetes mellitus type: type 1 Diabetes mellitus complication detail: without coma Qualified Code(s): E10.10 - Type 1 diabetes mellitus with ketoacidosis without coma Condition: Serious Coding Level of Care Code ED General Sales Manager for g Fwd Exam Detailed
[2020-10-31] MEDS: insulin regular-human 100 units/1 mL 10 UNIT IVP (21:51)
[2020-10-31] MEDS: sodium bicarbonate 8.4% 1 mEq/mL 50mL Syr 100 MEQ IVP (21:54)
[2020-10-31] MEDS: insulin regular-human 250 UNIT in sodium chloride 0.9% 250 ML 6 UNIT IV (22:25)
[2020-10-31 22:37] LABS: Basophils # 0.1 10^3/uL (0.0-0.1); Basophils % 0.4 %; Hematocrit 51.3 % (42.0-52.0); Hemoglobin 15.8 g/dL (11.7-16.6); Lymphocytes # 0.6 10^3/uL (0.8-4.8); Lymphocytes % 2.7 %; Mean Corpuscular HGB Conc 30.8 g/dL (30.0-36.0); Mean Corpuscular Hemoglobin 31.2 pg (28.0-34.0); Mean Corpuscular Volume 101.4 fL (80-94); Mean Platelet Volume 9.8 fL (7.4-10.4); Monocytes % 4.6 %; Neutrophils # 18.73 10^3/uL (1.8-7.7); Neutrophils % 91.1 %; Nucleated Red Blood Cells % 0 %; Platelet Count 330 10^3/cmm (130-400); Red Blood Count 5.06 10^6/uL (4.1-5.3); Red Cell Distribution Width 12.9 % (12.1-15.1); White Blood Count 20.6 10^3/uL (4.0-10.0)
[2020-10-31 22:48] VITALS: BP 136/60; PULSE 136; RESP 29; TEMP 35.5; O2SAT 99
--- NOTE | 2020-10-31 22:49 | PC.NURSE ---
IV fluids placed in [place] warmer
[2020-10-31 22:52] LABS: Alanine Aminotransferase 23 U/L (0-41); Albumin Level 4.5 g/dL (3.5-5.2); Alkaline Phosphatase 73 IU/L (40-130); Anion Gap 46.4 (5-19); Aspartate Amino Transferase 19 U/L (0-40); Blood Urea Nitrogen 31 mg/dL (6-20); C Reactive Protein 0.3 mg/L (0.0-4.9); Calcium 7.9 mg/dL (8.5-10.5); Chloride 97 mmol/L (98-107); Globulin 2.6 g/dL (1.3-4.6); Glomerular Filtration Rate 41.6 mL/min (90-130); Potassium 6.4 mmol/L (3.5-5.1); Sodium 141 mmol/L (136-145); Total Bilirubin 0.2 mg/dL (0.15-1.2); Total Protein 7.1 g/dL (6.6-8.7)
[2020-10-31 23:00] LABS: Osmolality Calculated 336 mOsm/kg (285-295)
[2020-10-31 23:06] LABS: Lipase 404 U/L (13-60)
[2020-10-31 23:08] LABS: Carbon Dioxide 4 mmol/L (22-29); Glucose 779 mg/dL (65-115); Phosphorus 9.2 mg/dL (2.5-4.5)
[2020-10-31 23:19] VITALS: BP 143/68; PULSE 122; RESP 20; O2SAT 100
[2020-10-31 23:33] VITALS: BP 124/52; PULSE 119; RESP 20; O2SAT 98
--- NOTE | 2020-10-31 23:34 | PM.HP ---
Providers/Chief Complaint Primary Care Provider: MARGE Castellano Chief Complaint: Hyperglycemia History of Present Illness Salvatore Ott is a 25 year old male who has had multiple admissions secondary to recurrent DKA secondary to noncompliance, marijuana abuse presented today when his friend called EMS for his altered mental status. Patient was asked to follow-up with [facility] sc[facility] however I do not see any notes under endocrinology follow-up. Patient is stating that for last 24 hours he has had 4-6 episodes of emesis, he is denying fever, dysuria, use of marijuana or any recreational drugs. He has not seen any [facility] sc[facility]. He is stating that they were supposed to do telemetry consult from [place] but was not able to do so because of pandemic. He lives with his friend, his mom helps him with the food, currently he is on disability. He is denying smoking or drinking alcohol. Diagnostics in the ER revealed severe metabolic acidosis DKA, high lipase, hyperkalemia, hypocalcemia, hyperphosphatemia, he was given 4 L normal saline which improved his blood pressure, he seemed to compensate well for severe acidosis, I have started him on bicarb drip along DKA protocol requested drug screen, serum ketones, CPK and uric acid. Patient was awake alert oriented x3 GCS 15 and was able to give above HPI. Review of Systems Const: Denies: fever(s) Eyes: Denies: change in vision ENMT: Reports: throat pain Card: Denies: chest pain Resp: Denies: dyspnea GI: Reports: abdominal pain, nausea and vomiting; Denies: diarrhea or constipation : Denies: flank pain Musc: Denies: neck pain Skin/Breast: Reports: lesions Neuro: Denies: headache(s) Psych: Denies: anxiety Endo: Denies: polyuria Garett/Lymph: Denies: easy bruising All/Imm: Denies: urticaria Medications/Allergies Home Medications Medication Instructions Recorded Confirmed Last Taken Type promethazine 25 mg PO Q6H PRN 03/16/20 10/18/20 10/18/20 History insulin pump cartridge [Omnipod 10/18/20 10/18/20 Unknown History Dash 5 Pack Pod] Allergies Allergy/AdvReac Type Severity Reaction Status Date / Time No Known Allergies Allergy Unverified 10/31/20 21:28 PFSH Acute PFSH: Medical History (Updated 11/01/20 @ 00:55 by Boris Boyer MD) Diabetes mellitus Type I GERD (gastroesophageal reflux disease) Type 1 diabetes Surgical History No pertinent past surgical history Family History Other Diabetes Social History Smoking and tobacco status: former smoker Alcohol intake: never Substance/Drug Use: current Substance/Drug use type: Marijuana Household members: friend(s) Housing: House Vitals/I&O/Wt Last Vital Signs Temp 95.9 F L 10/31/20 22:48 Pulse 119 H 10/31/20 23:33 Resp 20 H 10/31/20 23:33 BP 124/52 10/31/20 23:33 Pulse Ox 98 10/31/20 23:33 10/31/20 10/31/20 11/01/20 14:59 22:59 06:59 Intake Total 1000 / 1000 Balance 1000 / 1000 Weight last 48 hrs Weight 68.039 kg Physical Exam Narrative: EXAM NARRATIVE: Young male currently awake and alert, looks dehydrated and unkempt No acute distress Patient was asking for water No active chest pain Sinus tachycardia, S1-S2 No acute respiratory distress bilateral breath sounds without adventitious rhonchi or crackles Lower extremity no edema gangrene ulcer No active nilam pain No neurological deficit Poor dental hygiene No headache or signs of meningismus No joint swelling or skin cellulitis Awake alert oriented x3 EOMI, PERRLA Data : 10/31/20 22:26 10/31/20 22:26 A&P Assessment and plan (1) DKA (diabetic ketoacidoses): Status: Acute Qualifiers: Diabetes mellitus complication detail: without coma Diabetes mellitus type: type 1 Qualified Code(s): E10.10 - Type 1 diabetes mellitus with ketoacidosis without coma (2) Hyperkalemia: Status: Acute (3) Hyperphosphatemia: Status: Acute (4) Hypocalcemia: Status: Acute (5) Metabolic acidosis: Status: Acute Additional A&P Information Recurrent DKA Not sure whether this is related to noncompliance versus malfunctioning insulin pump Previous drug screen was positive with marijuana, I requested drug screen, triglyceride level and abdominal CT scan to rule out pancreatitis, noticed high lipase DKA protocol Would recommend endocrinology follow-up at our facility instead of [place] BALWINDER & severe electrolyte imbalance Severe dehydration most likely osmotic diuresis with underlying recurrent vomiting Rule out refeeding syndrome will request uric acid, CPK Anticipating improvement with fluid resuscitation Severe metabolic acidosis well compensated without acute respiratory distress Started him on bicarb drip, will give him 2 g of calcium gluconate before giving bicarb Requested lactic acid and serum ketones Full code N.p.o. DVT prophylaxis not indicated because of low risk Attestations Medical Necessity Statement*: Anticipating stay in the hospital cross more than 2 midnights for recurrent DKA and severe electrolyte abnormality Time Spent in Patient Care: (>than 50% of time spent in counselling and/or direct pt care on unit). 45mins Coding Level of Care Code Acute Full Time Paramedic for Chg Fwd Diagnoses DKA (diabetic ketoacidoses) E10.10 Diabetes mellitus complication detail: without coma Diabetes mellitus type: type 1 Hyperkalemia E87.5 Hyperphosphatemia E83.39 Hypocalcemia E83.51 Metabolic acidosis E87.2
[2020-11-01] VITALS (26 sets, daily range): BP systolic 90–141; BP diastolic 47–95; PULSE 85–135; RESP 12–33; TEMP 36.8–37; O2SAT 95–100
--- NOTE | 2020-11-01 | CTR_ITS ---
[facility] Final Radiology Report Call: [phone] Name: NIRMAL LOCKHART Age: 25Years M Date: 11/01/2020 SSN: -- : [id number] Study: CT ABDOMEN/PELVIS WO Requesting Physician: DILCIA CESAR Images: [id number] Add?l Studies: Provided Clinical History: Procedure Accession CTDI Vol (mGy) DLP (mGy-cm) CT ABDOMEN/PELVIS WO [id number] 716.54 PROCEDURE INFORMATION: Exam: CT Abdomen And Pelvis Without Contrast Exam date and time: 11/01/2020 1:55 AM Age: 25 years old Clinical indication: Patient HX: Hyperglycemic. Dka. Type 1 diabetic. No contrast given due to creatinine of 2.0. TECHNIQUE: Imaging protocol: Computed tomography of the abdomen and pelvis without contrast. Radiation optimization: All CT scans at this facility use at least one of these dose optimization techniques: automated exposure control; mA and/or kV adjustment per patient size (includes targeted exams where dose is matched to clinical indication); or iterative reconstruction. COMPARISON: CT abdomen pelvis w con* [id number] 06/05/2019 9:47 AM RADIATION DOSE METRICS: Total DLP (mGy-cm): 716.54 FINDINGS: Liver: Normal. No mass. Gallbladder and bile ducts: Normal. No calcified stones. No ductal dilation. Pancreas: Normal. No ductal dilation. Spleen: Normal. No splenomegaly. Adrenal glands: Normal. No mass. Kidneys and ureters: Normal. No hydronephrosis. Stomach and bowel: Unremarkable. No obstruction. No mucosal thickening. Appendix: No evidence of appendicitis. Intraperitoneal space: Unremarkable. No free air. No significant fluid collection. Vasculature: Unremarkable. No abdominal aortic aneurysm. Lymph nodes: Unremarkable. No enlarged lymph nodes. Urinary bladder: Unremarkable as visualized. Reproductive: Unremarkable as visualized. Bones/joints: Unremarkable. No acute fracture. Soft tissues: Unremarkable. IMPRESSION: No acute findings. Thank you for allowing us to participate in the care of your patient. Dictated and Authenticated by: Nathaly Dunaway MD 11/01/2020 3:19 AM Central Time ([place] & [place]) [facility]
[2020-11-01 00:07] LABS: Add Urine Microscopic? NO
[2020-11-01 00:12] LABS: Glucose Point of Care 424 mg/dL (70-110)
[2020-11-01] MEDS: sodium chloride 0.9% 1,000 ML 125 ML IV ×3 (00:25→18:15)
[2020-11-01] MEDS: sodium bicarbonate 150 MEQ in dextrose 5% 1,000 ML 100 MEQ IV (00:46)
[2020-11-01 00:52] LABS: Bilirubin Urine Neg (Negative); Blood Urine Neg (Negative); Glucose Urine UA 4+ (Normal); Ketones Urine 2+ (Negative); Leukocyte Esterase Urine Negative (Negative); Nitrate Urine Negative (Negative); Protein Urine Neg (Negative); Urine Appearance Clear (CLEAR); Urine Color Yellow (Yellow); Urobilinogen Urine Norm (Negative); pH Urine 5 (5-7)
[2020-11-01 01:04] LABS: Amphetamines Screen Urine Negative (Negative); Barbiturates Screen Urine Negative (Negative); Benzodiazepines Screen Urine Negative (Negative); Cocaine Screen Urine Negative (Negative); Opiate Screen Urine Negative (Negative); PCP Screen Urine Negative (Negative); THC Screen Urine Negative (Negative)
[2020-11-01] MEDS: calcium gluconate 0.1 gm/mL 10% SDV 10mL 2 GM IVP (01:19)
[2020-11-01 01:48] LABS: Ketone (Acetest) Serum Positive (Negative)
[2020-11-01 01:49] LABS: Alcohol Level < 10 mg/dL (0-10); Blood Urea Nitrogen 32 mg/dL (6-20); Calcium 8.1 mg/dL (8.5-10.5); Chloride 95 mmol/L (98-107); Creatine Phosphokinase 73 U/L (39-308); Glomerular Filtration Rate 44.1 mL/min (90-130); Sodium 141 mmol/L (136-145); Triglycerides 181 mg/dL (0-150); Uric Acid 9.1 mg/dL (3.4-7.0)
[2020-11-01 01:50] LABS: Anion Gap 48.4 (5-19); Potassium 6.4 mmol/L (3.5-5.1)
[2020-11-01 01:51] LABS: Carbon Dioxide 4 mmol/L (22-29)
[2020-11-01 02:26] LABS: Glucose 810 mg/dL (65-115); Osmolality Calculated 338 mOsm/kg (285-295)
[2020-11-01 02:51] LABS: Estmated Average Glucose 214; Hemoglobin A1C 9.1 % (4.0-6.0)
[2020-11-01 04:03] LABS: Basophils % 0.1 %; Hematocrit 42.2 % (42.0-52.0); Hemoglobin 14.5 g/dL (11.7-16.6); Lymphocytes # 0.5 10^3/uL (0.8-4.8); Lymphocytes % 2.4 %; Mean Corpuscular HGB Conc 34.4 g/dL (30.0-36.0); Mean Corpuscular Hemoglobin 31.8 pg (28.0-34.0); Mean Corpuscular Volume 92.5 fL (80-94); Mean Platelet Volume 9.4 fL (7.4-10.4); Monocytes # 0.9 10^3/uL (0.2-0.9); Monocytes % 4.9 %; Neutrophils # 17.46 10^3/uL (1.8-7.7); Neutrophils % 92.1 %; Nucleated Red Blood Cells % 0 %; Platelet Count 249 10^3/cmm (130-400); Red Blood Count 4.56 10^6/uL (4.1-5.3); Red Cell Distribution Width 13.2 % (12.1-15.1)
[2020-11-01 04:28] LABS: Creatine Phosphokinase 72 U/L (39-308); Magnesium 2.4 mg/dL (1.7-2.3)
--- NOTE | 2020-11-01 06:42 | PC.NURSE ---
normal saline hung early due to being a continuous infusion.
[2020-11-01 07:09] LABS: Anion Gap 24.9 (5-19); Blood Urea Nitrogen 23 mg/dL (6-20); Calcium 8.2 mg/dL (8.5-10.5); Carbon Dioxide 14 mmol/L (22-29); Chloride 114 mmol/L (98-107); Glucose 277 mg/dL (65-115); Osmolality Calculated 322 mOsm/kg (285-295); Potassium 3.9 mmol/L (3.5-5.1); Sodium 149 mmol/L (136-145)
[2020-11-01] MEDS: dextrose 5%-sod chloride 0.9% 1,000 ML 100 ML IV (10:04)
[2020-11-01 10:14] LABS: Anion Gap 15.5 (5-19); Blood Urea Nitrogen 18 mg/dL (6-20); Calcium 8.2 mg/dL (8.5-10.5); Carbon Dioxide 22 mmol/L (22-29); Chloride 116 mmol/L (98-107); Creatinine Clr Calc Pharmacy 123.2393; Glomerular Filtration Rate 104.6 mL/min (90-130); Glucose 108 mg/dL (65-115); Osmolality Calculated 312 mOsm/kg (285-295); Phosphorus 2.6 mg/dL (2.5-4.5); Potassium 3.5 mmol/L (3.5-5.1); Sodium 150 mmol/L (136-145)
--- NOTE | 2020-11-01 10:33 | P.PN_ITS ---
Subjective Subjective: Interval history: This is a 25-year-old male, with type 1 diabetes mellitus, he has insulin pump, currently turned off, but tells me that it normally runs at 3 units/h, he is managed by a assurance sourcing manager in [place], but with Covid he has not been up to [place] in a while, has not followed up with our assurance sourcing manager since discharge, he tells me that he lives with a friend, currently unemployed, does not go to school, he is interested in becoming a phillips, denies any drug use, denies any alcohol consumption, no abdominal pain, he is feeling a bit better Vitals/I&O/Wt Last Vital Signs Temp 98.6 F 11/01/20 04:00 Pulse 85 11/01/20 10:00 Resp 24 H 11/01/20 10:00 BP 90/47 11/01/20 10:00 Pulse Ox 97 11/01/20 10:00 10/31/20 11/01/20 11/01/20 22:59 06:59 14:59 Intake Total 1000 / 1000 2075.5 / 3075.5 13.795 / 13.795 Output Total 1750 / 1750 Balance 1000 / 1000 325.5 / 1325.5 13.795 / 13.795 Weight last 48 hrs Weight 68.039 kg Physical Exam Const: COMMON NORMALS: no acute distress and patient oriented x3 HENMT: COMMON NORMALS: normocephalic HEAD & SCALP: normocephalic Neck/C-Spine: COMMON NORMALS: no JVD Resp: COMMON NORMALS: normal respiratory effort, No retractions, No use of accessory muscles and clear to auscultation bilaterally AUSCULTATION: clear to auscultation bilaterally Cardio: COMMON NORMALS: no JVD, regular rate, regular rhythm, S1 normal heart sound present and S2 normal heart sound present RATE: regular rate RHYTHM: regular rhythm HEART SOUNDS: S1 normal heart sound present and S2 normal heart sound present GI: COMMON NORMALS: Normal to inspection, nondistended, normoactive bowel sounds present, Soft to palpation, non-tender, No hepatosplenomegaly present, no masses and no bruits PALPATION: Yes Soft to palpation and Yes No hepatosplenomegaly present Extremity: COMMON NORMALS: capillary refill normal, no clubbing, cyanosis or edema, no calf tenderness and no pedal edema Neuro: COMMON NORMALS: patient oriented x3 Psych: COMMON NORMALS: mental status grossly normal Data : 11/01/20 03:05 11/01/20 09:02 A&P Assessment and plan (1) DKA (diabetic ketoacidoses): Status: Acute Qualifiers: Diabetes mellitus complication detail: without coma Diabetes mellitus type: type 1 Qualified Code(s): E10.10 - Type 1 diabetes mellitus with ketoacidosis without coma (2) Hyperkalemia: Status: Acute (3) Hyperphosphatemia: Status: Acute (4) Hypocalcemia: Status: Acute (5) Metabolic acidosis: Status: Acute Additional A&P Information Recurrent DKA Likely secondary to noncompliance Previous drug screen was positive with marijuana, drug screen negative, triglyceride level pending and abdominal CT scan to rule out pancreatitis, noticed high lipase of 400 DKA protocol Would recommend follow-up with endocrinology in [place], will see if endocrinology is willing to come see patient here in the hospital as he has not followed up since his last discharge BALWINDER & severe electrolyte imbalance Severe dehydration most likely osmotic diuresis with underlying recurrent vomiting Severe metabolic acidosis well compensated without acute respiratory distress Started him on bicarb drip, status post calcium gluconate Order inflammatory markers ESR, 6 pro-Nathaniel, CRP, blood cultures, urine cultures Patient's main complaint was nausea vomiting, etiology unclear but could be diabetic gastroparesis, will consider endocarditis work-up based on blood culture results Full code N.p.o. DVT prophylaxis not indicated because of low risk Attestations Medical Necessity Statement*: Patient requires hospitalization for diabetic ketoacidosis, ICU, critical care time spent over 45 minutes Coding Level of Care Code Acute Registered Occupational Therapist for [facility] Diagnoses DKA (diabetic ketoacidoses) E10.10 Diabetes mellitus complication detail: without coma Diabetes mellitus type: type 1 Hyperkalemia E87.5 Hyperphosphatemia E83.39 Hypocalcemia E83.51 Metabolic acidosis E87.2
[2020-11-01 10:50] LABS: ABG PCO2 37.8 mmHg (35-45); ABG PH Result 7.39 (7.35-7.45); Arterial Blood Gas Hematocrit 41.9 % (42-52); Base Excess ABG -1.9 mmol/L (-2.0-2.0); Blood Gas Allen Test Pos; Blood Gas Operator Identificat CAK; Blood Gas Sample Site Radial, left; Blood Gas Sample Type Arterial; HCO3 ABG 22.8 mmol/L (22-26); Oxygen Device ROOM AIR; PO2 ABG 83.8 mmHg (80.0-100.0)
[2020-11-01 11:06] LABS: Glucose Point of Care 104 mg/dL (70-110)
[2020-11-01 11:06] LABS: Glucose Point of Care 124 mg/dL (70-110)
[2020-11-01 11:06] LABS: Glucose Point of Care 368 mg/dL (70-110)
[2020-11-01 11:06] LABS: Glucose Point of Care 206 mg/dL (70-110)
[2020-11-01 11:06] LABS: Glucose Point of Care 112 mg/dL (70-110)
[2020-11-01 11:06] LABS: Glucose Point of Care 178 mg/dL (70-110)
[2020-11-01 11:06] LABS: Glucose Point of Care 430 mg/dL (70-110)
[2020-11-01 11:06] LABS: Glucose Point of Care 213 mg/dL (70-110)
[2020-11-01 11:06] LABS: Glucose Point of Care 295 mg/dL (70-110)
[2020-11-01 11:06] LABS: Glucose Point of Care 102 mg/dL (70-110)
[2020-11-01 11:06] LABS: Glucose Point of Care 162 mg/dL (70-110)
[2020-11-01 11:06] LABS: Glucose Point of Care 112 mg/dL (70-110)
[2020-11-01 12:18] LABS: Lactate (Lactic Acid level) 0.8 mmol/L (0.5-2.2)
[2020-11-01 12:39] LABS: Anion Gap 17.8 (5-19); Blood Urea Nitrogen 17 mg/dL (6-20); C Reactive Protein 7.1 mg/L (0.0-4.9); Calcium 8.1 mg/dL (8.5-10.5); Carbon Dioxide 23 mmol/L (22-29); Chloride 113 mmol/L (98-107); Cholesterol 119 mg/dL (0-200); Creatinine Clr Calc Pharmacy 110.9154; Glomerular Filtration Rate 92.6 mL/min (90-130); Glucose 116 mg/dL (65-115); HDL Cholesterol 35 mg/dL (60-100); LDL Cholesterol Calculated 74 mg/dL (50-129); LDL HDL Ratio 2.11 RATIO (0.00-3.22); Osmolality Calculated 313 mOsm/kg (285-295); Phosphorus 3.7 mg/dL (2.5-4.5); Potassium 3.8 mmol/L (3.5-5.1); Sodium 150 mmol/L (136-145); Triglycerides 51 mg/dL (0-150)
[2020-11-01 13:58] LABS: Erythrocyte Sedimentation Rate 7 mm/hr (0-10)
[2020-11-01] MEDS: insulin glargine 100 units/1 mL 10 UNIT SUBCUT (14:50)
[2020-11-01 20:32] LABS: Glucose Point of Care 237 mg/dL (70-110)
[2020-11-01 22:27] LABS: Anion Gap 18.7 (5-19); Blood Urea Nitrogen 12 mg/dL (6-20); Carbon Dioxide 18 mmol/L (22-29); Chloride 106 mmol/L (98-107); Creatinine Clr Calc Pharmacy 123.2393; Glomerular Filtration Rate 104.6 mL/min (90-130); Glucose 208 mg/dL (65-115); Osmolality Calculated 294 mOsm/kg (285-295); Potassium 3.7 mmol/L (3.5-5.1); Sodium 139 mmol/L (136-145)
[2020-11-02] VITALS (15 sets, daily range): BP systolic 86–135; BP diastolic 46–76; PULSE 69–95; RESP 13–27; TEMP 36.8–37.2; O2SAT 95–99
[2020-11-02] MEDS: sodium chloride 0.9% 1,000 ML 125 ML IV ×2 (02:33→09:44)
[2020-11-02 04:47] LABS: Glucose Point of Care 179 mg/dL (70-110)
[2020-11-02 04:56] LABS: Basophils % 0.2 %; Eosinophils % 0.1 %; Hematocrit 39.9 % (42.0-52.0); Hemoglobin 13.5 g/dL (11.7-16.6); Lymphocytes # 1.4 10^3/uL (0.8-4.8); Lymphocytes % 14.1 %; Mean Corpuscular HGB Conc 33.8 g/dL (30.0-36.0); Mean Corpuscular Hemoglobin 31.3 pg (28.0-34.0); Mean Corpuscular Volume 92.4 fL (80-94); Mean Platelet Volume 9.5 fL (7.4-10.4); Monocytes # 0.5 10^3/uL (0.2-0.9); Monocytes % 5.3 %; Neutrophils # 7.77 10^3/uL (1.8-7.7); Neutrophils % 79.9 %; Nucleated Red Blood Cells % 0 %; Platelet Count 200 10^3/cmm (130-400); Red Blood Count 4.32 10^6/uL (4.1-5.3); Red Cell Distribution Width 13.5 % (12.1-15.1); White Blood Count 9.7 10^3/uL (4.0-10.0)
[2020-11-02] MEDS: insulin glargine 100 units/1 mL 10 UNIT SUBCUT (05:03)
[2020-11-02 05:46] LABS: Procalcitonin 0.45 ng/mL (0-0.5)
[2020-11-02 05:58] LABS: Alanine Aminotransferase 14 U/L (0-41); Albumin Level 3.2 g/dL (3.5-5.2); Alkaline Phosphatase 47 IU/L (40-130); Anion Gap 16.7 (5-19); Aspartate Amino Transferase 13 U/L (0-40); Blood Urea Nitrogen 8 mg/dL (6-20); C Reactive Protein 6.4 mg/L (0.0-4.9); Calcium 7.9 mg/dL (8.5-10.5); Carbon Dioxide 19 mmol/L (22-29); Chloride 105 mmol/L (98-107); Globulin 2.1 g/dL (1.3-4.6); Glomerular Filtration Rate 139.8 mL/min (90-130); Glucose 194 mg/dL (65-115); Magnesium 1.8 mg/dL (1.7-2.3); Osmolality Calculated 288 mOsm/kg (285-295); Phosphorus 1.5 mg/dL (2.5-4.5); Potassium 3.7 mmol/L (3.5-5.1); Sodium 137 mmol/L (136-145); Total Bilirubin 0.9 mg/dL (0.15-1.2); Total Protein 5.3 g/dL (6.6-8.7)
[2020-11-02 07:03] LABS: Glucose Point of Care 295 mg/dL (70-110)
--- NOTE | 2020-11-02 07:07 | PC.NURSE ---
non eventful night, no C/O pain or SOB throughout night
[2020-11-02 08:00] LABS: Glucose Point of Care 173 mg/dL (70-110)
--- NOTE | 2020-11-02 09:56 | PC.NURSE ---
Report faxed to [employer].
--- NOTE | 2020-11-02 10:07 | PC.NURSE ---
Addendum entered by Josselin Whyte RN 11/02/20 10:33: Report included nurse to keyshawn Grey and inform when family brings in the rest of his insulin pump supplies. Original Note: Report given to RIKI Liao, on [facility].
--- NOTE | 2020-11-02 10:33 | PC.NURSE ---
Pt transferred to [place] [id number]. All belongings with pt. Adonis Liao informed of arrival and need for IV pumps in room to continue IV fluids and IV potasssium phosphate.
--- NOTE | 2020-11-02 10:58 | PC.NURSE ---
Received Pt from ICU to room 256-2. Pt A&O x3, Resp even and non-labored no distress noted. IV patent no redness or swelling noted. Pt had no c/o pain or discomfort at the present time. no needs voiced. Call light in reach. Will continue to monitor.
[2020-11-02 11:56] LABS: Glucose Point of Care 284 mg/dL (70-110)
--- NOTE | 2020-11-02 15:46 | PM.PN ---
Subjective Subjective: Interval history: This morning patient was examined, in ICU, he is doing well, tolerating clear liquid diet well, blood sugars are better controlled, no diarrhea, no chest pain, no shortness of breath, no dysuria, no headache, no blurry vision, ambulating without significant symptomatology Vitals/I&O/Wt Last Vital Signs Temp 98.3 F 11/02/20 11:32 Pulse 86 11/02/20 11:32 Resp 18 11/02/20 11:32 BP 135/71 11/02/20 11:32 Pulse Ox 98 11/02/20 11:32 11/02/20 11/02/20 11/02/20 06:59 14:59 22:59 Intake Total 2137.917 / 2137.917 Output Total 1600 / 4200 1000 / 1000 Balance -1600 / -2934.1141 1137.917 / 1137.917 Weight last 48 hrs Weight 68.039 kg Physical Exam Const: COMMON NORMALS: no acute distress and patient oriented x3 HENMT: COMMON NORMALS: normocephalic HEAD & SCALP: normocephalic Neck/C-Spine: COMMON NORMALS: no JVD Resp: COMMON NORMALS: normal respiratory effort, No retractions, No use of accessory muscles and clear to auscultation bilaterally AUSCULTATION: clear to auscultation bilaterally Cardio: COMMON NORMALS: no JVD, regular rate, regular rhythm, S1 normal heart sound present and S2 normal heart sound present RATE: regular rate RHYTHM: regular rhythm HEART SOUNDS: S1 normal heart sound present and S2 normal heart sound present GI: COMMON NORMALS: Normal to inspection, nondistended, normoactive bowel sounds present, Soft to palpation, non-tender, No hepatosplenomegaly present, no masses and no bruits PALPATION: Yes Soft to palpation and Yes No hepatosplenomegaly present Extremity: COMMON NORMALS: capillary refill normal, no clubbing, cyanosis or edema, no calf tenderness and no pedal edema Neuro: COMMON NORMALS: patient oriented x3 Psych: COMMON NORMALS: mental status grossly normal Data : 11/02/20 04:11 11/02/20 04:11 Micro: Microbiology 11/01/20 11:46 Blood Culture - Preliminary Blood NEGATIVE TO DATE 11/01/20 11:33 Blood Culture - Preliminary Blood NEGATIVE TO DATE A&P Assessment and plan (1) DKA (diabetic ketoacidoses): Status: Acute Qualifiers: Diabetes mellitus complication detail: without coma Diabetes mellitus type: type 1 Qualified Code(s): E10.10 - Type 1 diabetes mellitus with ketoacidosis without coma (2) Hyperkalemia: Status: Acute (3) Hyperphosphatemia: Status: Acute (4) Hypocalcemia: Status: Acute (5) Metabolic acidosis: Status: Acute Additional A&P Information Recurrent DKA Likely secondary to noncompliance Previous drug screen was positive with marijuana, drug screen negative, triglyceride within normal limits and abdominal CT no acute findings DKA resolved Currently on glargine 60 units twice daily, moderate dose sliding scale, monitor blood sugars closely I am keeping the patient until tomorrow for better blood sugar management, hopefully Dr. Metz from endocrinology can come by and see the patient, as patient has had multiple admissions for recurrent DKA's in the past, history of noncompliance, I have also asked patient to have family members to bring in the probes to restart his insulin pump BALWINDER & severe electrolyte imbalance, resolved Severe dehydration most likely osmotic diuresis with underlying recurrent vomiting Severe metabolic acidosis well compensated without acute respiratory distress Resolved Follow blood cultures, urine cultures Patient's main complaint was nausea vomiting, etiology unclear but could be diabetic gastroparesis, resolved Full code Diabetic diet DVT prophylaxis not indicated because of low risk Plan for today move out of ICU, monitor blood sugars carefully, monitor blood cultures, urine cultures Attestations Medical Necessity Statement*: Patient course hospitalization, for recurrent DKA, critical care time spent over 35 minutes Coding Level of Care Code Acute Histology 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
[2020-11-02 17:11] LABS: Glucose Point of Care 290 mg/dL (70-110)
[2020-11-02] MEDS: insulin glargine 100 units/1 mL 16 UNIT SUBCUT (17:45)
[2020-11-02 20:33] LABS: Glucose Point of Care 292 mg/dL (70-110)
[2020-11-03] VITALS: BP 123/74; PULSE 83; RESP 14; TEMP 37.1; O2SAT 98
[2020-11-03 04:00] VITALS: BP 127/77; PULSE 87; RESP 16; TEMP 36.7; O2SAT 99
[2020-11-03] MEDS: insulin glargine 100 units/1 mL 16 UNIT SUBCUT (05:25)
[2020-11-03] MEDS: sodium chloride 0.9% 1,000 ML 125 ML IV (05:25)
[2020-11-03 06:00] VITALS: PULSE 82
[2020-11-03 06:56] LABS: Glucose Point of Care 83 mg/dL (70-110)
[2020-11-03 07:03] LABS: Basophils % 0.2 %; Eosinophils % 0.5 %; Hematocrit 40.6 % (42.0-52.0); Hemoglobin 13.9 g/dL (11.7-16.6); Lymphocytes # 1.1 10^3/uL (0.8-4.8); Lymphocytes % 26.2 %; Mean Corpuscular HGB Conc 34.2 g/dL (30.0-36.0); Mean Corpuscular Hemoglobin 31.4 pg (28.0-34.0); Mean Corpuscular Volume 91.6 fL (80-94); Mean Platelet Volume 9.6 fL (7.4-10.4); Monocytes # 0.3 10^3/uL (0.2-0.9); Monocytes % 7.5 %; Neutrophils # 2.79 10^3/uL (1.8-7.7); Neutrophils % 65.4 %; Nucleated Red Blood Cells % 0 %; Platelet Count 170 10^3/cmm (130-400); Red Blood Count 4.43 10^6/uL (4.1-5.3); Red Cell Distribution Width 13.2 % (12.1-15.1); White Blood Count 4.3 10^3/uL (4.0-10.0)
[2020-11-03 07:25] LABS: Procalcitonin 0.26 ng/mL (0-0.5)
[2020-11-03 07:36] LABS: Alanine Aminotransferase 13 U/L (0-41); Albumin Level 3.5 g/dL (3.5-5.2); Alkaline Phosphatase 46 IU/L (40-130); Anion Gap 14.1 (5-19); Aspartate Amino Transferase 13 U/L (0-40); Blood Urea Nitrogen 7 mg/dL (6-20); C Reactive Protein 3.2 mg/L (0.0-4.9); Carbon Dioxide 28 mmol/L (22-29); Chloride 102 mmol/L (98-107); Glomerular Filtration Rate 206.1 mL/min (90-130); Glucose 52 mg/dL (65-115); Magnesium 2.1 mg/dL (1.7-2.3); Osmolality Calculated 287 mOsm/kg (285-295); Phosphorus 2.9 mg/dL (2.5-4.5); Potassium 3.1 mmol/L (3.5-5.1); Sodium 141 mmol/L (136-145); Total Bilirubin 0.8 mg/dL (0.15-1.2); Total Protein 5.5 g/dL (6.6-8.7)
[2020-11-03 07:48] VITALS: BP 126/77; PULSE 89; RESP 20; TEMP 36.8; O2SAT 98
--- NOTE | 2020-11-03 09:51 | PC.CHAP ---
Pastoral Care Encounter/Spiritual Assessment Type of Contact [] Declined retread mold operator visit [] Patient/Family/Request visit [] Outpatient visit [] Follow-up visit [] Physician referral [] Code/Alert x[] Routine visit [] Staff referral [] Actively dying [] Patient sleeping [] Family support [] [] Out of room [] Palliative care [] [x] Receiving care in room [] Pre-surgical visit [] Trauma [] Long length of stay [] ICU visit [] Other: Relational/Emotional Strength [] Patient feels connected with others/family/visitors/staff [] Distress [] Loneliness/isolation [] Abandonment Spirituality of Patient [] Person of Emily [] Attends [employer] of their Emily [] Believes in Prayer [] Reads Bible or Synagogue materials [] There are Spiritual issues to be addressed Commercial Real Estate Manager Interventions [] Prayer [] Active listening [] Non-anxious presence [] Spiritual/emotional support [] Crisis/trauma care [] Spiritual counseling [] Bereavement support [] Provided bereavement packet [] Provided Bible/devotional materials [] Provided toy/stuffed animal, coloring book to patient or family member [] Provided Communion [] Anointing/[place] [] Salvation [] Completed spiritual assessment [] Other: Impact on Illness or Injury [] Angry [] Fearful [] Anxious [] Often cries [] Exhaustion [] Unable to work [] Unable to attend samaritan [] Unable to walk/stand [] Unable to read [] Unable to drive [] Unable to eat/drink [] Unable to sleep [] Unable to be with family [] Patient intubated [] Other: Summary Time spent with patient
[2020-11-03] MEDS: potassium chloride ER 20 mEq Tablet 40 MEQ PO (10:21)
--- NOTE | 2020-11-03 10:55 | P.DS_ITS ---
Discharge Providers Date of Admission: 10/31/20 23:33 Date of Discharge: November 03, 2020 Attending Provider at Admission: Boris Boyer MD Attending Provider at Discharge: Randy Mckeon MD Primary Care Provider: Aanstasia Sebastian APN Diagnoses at Discharge Discharge Diagnosis (1) DKA (diabetic ketoacidoses): Status: Acute Qualifiers: Diabetes mellitus complication detail: without coma Diabetes mellitus type: type 1 Qualified Code(s): E10.10 - Type 1 diabetes mellitus with ketoacidosis without coma (2) Hyperkalemia: Status: Acute (3) Hyperphosphatemia: Status: Acute (4) Hypocalcemia: Status: Acute (5) Metabolic acidosis: Status: Acute Reason for Visit Reason for Visit: Hyperglycemia Hospital Course Hospital Course This is a 25-year-old male with a past medical history of type 1 diabetes mellitus, history of recurrent DKA, recurrent hospitalizations, who presents to [facility] due to nausea, vomiting Patient was admitted to [facility] for diabetic ketoacidosis, admitted to the ICU, received DKA protocol, clinically improved, moved to general medical floors. Patient was managed on a moderate dose sliding scale, a nd glargine 15 units twice daily, blood sugars were within reasonable range. After discussion with endocrinology patient will be discharged on a moderate dose sliding scale, and glargine 15 units twice daily. Patient was advised to continue to not use his insulin pump, currently turned off, and when he sees Dr. Metz in clinic she will adjust the pump. I had an extensive discussion with patient about checking his blood sugars 3 times daily before meals, injecting his NovoLog insulin based on sliding scale, do not inject if he does not eat meals, recording blood sugars 3 times daily, injecting glargine 15 units twice daily, we discussed hyperglycemia, if blood sugar in the 500 call primary care, if hypoglycemia, drink or juice eat heart cardiac come to the emergency room. Patient will follow up with Dr. Metz next week. Voiced understanding, all questions answered, agreed to proceed. Physical Exam Const: COMMON NORMALS: no acute distress and patient oriented x3 HENMT: COMMON NORMALS: normocephalic HEAD & SCALP: normocephalic Neck/C-Spine: COMMON NORMALS: no JVD Resp: COMMON NORMALS: normal respiratory effort, No retractions, No use of accessory muscles and clear to auscultation bilaterally AUSCULTATION: clear to auscultation bilaterally Cardio: COMMON NORMALS: no JVD, regular rate, regular rhythm, S1 normal heart sound present and S2 normal heart sound present RATE: regular rate RHYTHM: regular rhythm HEART SOUNDS: S1 normal heart sound present and S2 normal heart sound present GI: COMMON NORMALS: Normal to inspection, nondistended, normoactive bowel sounds present, Soft to palpation, non-tender, No hepatosplenomegaly present, no masses and no bruits PALPATION: Yes Soft to palpation and Yes No hepatosplenomegaly present Extremity: COMMON NORMALS: capillary refill normal, no clubbing, cyanosis or edema, no calf tenderness and no pedal edema Neuro: COMMON NORMALS: patient oriented x3 Psych: COMMON NORMALS: mental status grossly normal Discharge Data Data Completed and Pending: Completed Studies During Hospitalization Category Date Time Status CT abdomen pelvis wo con [id number] Urge nt Cat Scan 11/01/20 01:[address] head wo con* [id number] Urgent Cat Scan 10/31/20 21:26 Completed XR chest 1V merry ble [id number] Urgent Exams 10/31/20 21:26 Completed Pending at discharge Category Date Time Status ABG FULL [Arteria l Blood Gas Full] Stat Lab 10/31/20 21:16 Results Arterial Blood Ga s W/O Coox Stat Lab 10/31/20 21:26 Ordered Blood Culture Sta t Lab 11/01/20 11:46 Results C Reactive Protei n AM LABS Lab 11/04/20 04:00 Ordered Complete Blood Co unt w/Auto AM LABS Lab 11/04/20 04:00 Ordered Comprehensive Met abolic Panel AM LA BS Lab 11/04/20 04:00 Ordered Magnesium AM LABS Lab 11/04/20 04:00 Ordered Phosphorus AM LAB S Lab 11/04/20 04:00 Ordered Procalcitonin AM LABS Lab 11/04/20 04:00 Ordered Labs from last 24 hours 11/03/20 11/03/20 11/03/20 06:39 04:55 04:55 WBC 4.3 RBC 4.43 Hgb 13.9 Hct 40.6 L MCV 91.6 MCH 31.4 MCHC 34.2 RDW 13.2 Plt Count 170 MPV 9.6 Neut % (Auto) 65.4 Lymph % (Auto) 26.2 Parker % (Auto) 7.5 Eos % (Auto) 0.5 Baso % (Auto) 0.2 Neut # (Auto) 2.79 Lymph # (Auto) 1.1 Parker # (Auto) 0.3 Eos # (Auto) 0.0 Baso # (Auto) 0.0 Nucleated RBC % (a uto) 0 Nucleated RBCs # 0.0 Sodium 141 Potassium 3.1 L Chloride 102 Carbon Dioxide 28 Anion Gap 14.1 BUN 7 Creatinine 0.5 L GFR Calculation 206.1 H Glucose 52 L POC Glucose 83 Calculated Osmolal ity 287 Calcium 8.0 L Phosphorus 2.9 Magnesium 2.1 Total Bilirubin 0.8 AST 13 ALT 13 Alkaline Phosphata se 46 C-Reactive Protein 3.2 Total Protein 5.5 L Albumin 3.5 Globulin 2.0 Procalcitonin 0.26 11/02/20 11/02/20 11/02/20 20:29 17:07 11:34 WBC RBC Hgb Hct MCV MCH MCHC RDW Plt Count MPV Neut % (Auto) Lymph % (Auto) Parker % (Auto) Eos % (Auto) Baso % (Auto) Neut # (Auto) Lymph # (Auto) Parker # (Auto) Eos # (Auto) Baso # (Auto) Nucleated RBC % (a uto) Nucleated RBCs # Sodium Potassium Chloride Carbon Dioxide Anion Gap BUN Creatinine GFR Calculation Glucose POC Glucose 292 H 290 H 284 H Calculated Osmolal ity Calcium Phosphorus Magnesium Total Bilirubin AST ALT Alkaline Phosphata se C-Reactive Protein Total Protein Albumin Globulin Procalcitonin Vitals: Last Vital Signs Temp 98.2 F 11/03/20 07:48 Pulse 89 11/03/20 07:48 Resp 20 H 11/03/20 07:48 BP 126/77 11/03/20 07:48 Pulse Ox 98 11/03/20 07:48 Discharge Plan Discharge Patient Disposition: Home Condition: Stable Prescriptions: New Lantus U-100 Insulin 100 unit/mL solution 15 unit SUBCUT BID Qty: 10 RF: 0 Novolog Flexpen U-100 Insulin 100 unit/mL (3 mL) insulin pen See Protocol unit SUBCUT QAM Qty: 15 RF: 0 Discontinued promethazine 25 mg tablet 25 mg PO Q6H PRN (Reason: nausea/vomiting) RF: 0 No Action (DME) Omnipod Dash 5 Pack Pod Cartridge SUBCUT RF: 0 Discharge Orders: Discharge Order (Routine); Ordered 11/03/20 Ordered By: Randy Mckeon Referrals: Earlene Titus FNP-C [Nurse Practitioner] - 11/07/20 11:20 am (Anastasia was unable to take you as a patient at the [facility]. You have been scheduled to see Nicci Tacho in [facility]. Please attend this appointment or call if need to cancel. ) Evelin Metz MD [Physician] - 11/12/20 3:30 am (Please arrive at 3:30pm for your 4:00pm appointment. It is very important that you attend this appointment. You may be able to transfer you Diabetes care to this provider and be seen locally which is what you preferred. Please attend all appointments scheduled to help ensure your wellness. Enter in through back of [facility] where [facility] is located. Dr Metz office is to the left when you enter in front of soda machine. ) Discharge Diet: Diabetic Discharge Activity: Resume usual activity Patient Instructions: Insulin Aspart, Recombinant (Injection), Insulin Glargine (Injection), How to Check Your Blood Sugar (DC), How to Check Your Blood Sugar (GEN), Diabetes Mellitus Type 1 in Adults (DC), Diabetic Hypoglycemia (DC), Basic Carbohydrate Counting (DC), Opioid Safety Activity Restrictions/Additional Instructions: Fingerstick Blood Glucose Insulin Units 141-180 mg/dl 4 units/SQ 181-220 mg/dl 6 units/SQ 221-260 mg/dl 8 units/SQ 261-300 mg/dl 10 units/SQ 301-350 mg/dl 12 units/SQ 351-400 mg/dl 14 units/SQ greater than 400 mg/dl 16 units/SQ -check blood sugars 3 times daily -Inject insulin based on fingerstick glucose before meals, based on sliding scale -Do not inject NovoLog if you do not eat meals -Inject glargine 15 units twice daily regardless of meals or not -Record blood sugars 3 times daily, bring to primary care physician's office -If blood sugar is greater than 500 call primary care -If blood sugar less than 60, drink or juice or eat a hard candy and call primary care -If you have recurrent nausea, vomiting, elevated blood sugars please come back to the emergency room -Continue to stop insulin pump, until you see Dr. Metz Discharge Attestations Time Spent in Discharge Care*: less than 30 min Status at Discharge: Cognitive status at discharge: cognitively intact , Behavioral status at discharge: cooperative , Quality Metrics Clinical Quality Measures During this hospital stay, did patient experience: None Coding Level of Care Code Acute Game Programer for Chg Fwd Diagnoses DKA (diabetic ketoacidoses) E10.10 Diabetes mellitus complication detail: without coma Diabetes mellitus type: type 1 Hyperkalemia E87.5 Hyperphosphatemia E83.39 Hypocalcemia E83.51 Metabolic acidosis E87.2
[2020-11-03 11:00] LABS: Glucose Point of Care 324 mg/dL (70-110)
--- NOTE | 2020-11-03 11:06 | DCPLANNER ---
Pg 2 of IM updated and reviewed with pt. No questions, copy provided.
--- NOTE | 2020-11-03 11:42 | PC.NURSE ---
Educated patient on sliding scale use as well as asked patient if he had used insulin needles before. He stated he understood and had previously used needles.
[2020-11-03 12:00] VITALS: BP 130/74; PULSE 85; RESP 20; TEMP 37; O2SAT 98
[2020-11-03 13:32] VITALS: BP 130/74; PULSE 85; RESP 20; TEMP 37; O2SAT 98
== END 2020-11-03 13:00 | disposition home or self-care (01) | DRG 638 ==
LOC: ER 23:36 → ICU 23:41 → MEDSURG 11-02 10:22
PROVIDERS: Family Medicine; Admitting Provider Internal Medicine; Emergency Provider Emergency Medicine; PCP Nurse Practitioner Family; Visit Provider Family Medicine
DX: E10.10 Type 1 diabetes mellitus with ketoacidosis without coma (principal); E87.2 Acidosis; N17.9 Acute kidney failure, unspecified; Z91.14 Patient's other noncompliance with medication regimen; F12.10 Cannabis abuse, uncomplicated; E87.5 Hyperkalemia; E83.51 Hypocalcemia; E83.39 Other disorders of phosphorus metabolism; K21.9 Gastro-esophageal reflux disease without esophagitis; Z96.41 Presence of insulin pump (external) (internal); E86.0 Dehydration; E10.43 Type 1 diabetes mellitus with diabetic autonomic (poly)neuropathy; K31.84 Gastroparesis
CPT/HCPCS: 36415; 36416; 36600; 70450; 71045; 74176; 80048; 80051; 80053; 80061; 80306; 80307; 81003; 82009; 82330; 82550; 82803; 82805; 82962; 83036; 83605; 83690; 83735; 84100; 84145; 84478; 84550; 85025; 85651; 86140; 87040; 87086; 93005; 96361; 96365; 96372; 96375; 99292; J0610; J1815 ×2; J7030; J7050

== ENCOUNTER 2020-11-07 14:13 | Observation (INO) | payer MEDICARE, MEDICAID, SELFPAY ==
[2020-11-07 14:18] VITALS: BP 139/85; PULSE 110; RESP 18; TEMP 36.3; O2SAT 99; BMI 22.8
[2020-11-07 14:38] LABS: Glucose Point of Care 258 mg/dL (70-110)
--- NOTE | 2020-11-07 14:41 | ECG_ITS ---
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 Measurements Intervals Lydia Rate: 95 P: 73 NJ: 119 QRS: 80 QRSD: 72 T: 60 QT: 347 QTc: 437 Interpretive Statements SINUS RHYTHM WITH SHORT NJ INTERVAL Compared to ECG 12/21/2019 12:03:42 Sinus tachycardia no longer present Electronically Signed On 11-07-2020 18:23:06 APARTMENT COORDINATOR by Real Cerna M.D. [id number]
--- NOTE | 2020-11-07 14:42 | XR_ITS ---
WS: [id number] Portable AP upright chest, 11/07/2020 Clinical Data: dyspnea/cough Comparison: Portable chest, 10/31/2020. Findings: No nodules, masses or effusions are seen. The heart is normal. The pulmonary vascularity is not increased. No pneumonia or pneumothorax is seen. XR/XR chest 1V portable [id number] Impression: Negative chest.
--- NOTE | 2020-11-07 14:53 | ED_ITS ---
HPI - General Adult General: Chief complaint: General Medical Stated complaint: Type 1 diabetic/ sugar high Time Seen by Provider: 11/07/20 14:25 History of Present Illness: HPI narrative: 25-year-old male presents emergency room with complaints of elevated blood sugar. Patient has a history of frequent DKA and chronic cannabinoid abuse. He was discharged November 03 after a 5-day stay for DKA. He was recently changed from vials on his insulin back to insulin pens. He uses Lantus and the sliding scale he had no dosage changes he denies any recent illness. Onset (ago): day(s) Severity: moderate Relieving factors: none Exacerbating factors: none Associated symptoms: Reports nausea and vomiting; Deny chest pain, confusion, cough, diaphoresis, decreased appetite, dyspnea, fevers/chills, headache(s), malaise, rash, palpitations, seizures, short of breath, syncope or weakness Treatments prior to arrival: none Review of Systems Const: Denies: malaise or diaphoresis ENMT: Denies: throat pain, ear or mastoid pain, nasal discharge or nasal congestion Card: Denies: chest pain, palpitations or syncope Resp: Denies: dyspnea GI: Reports: nausea and vomiting : Denies: flank pain, dysuria, urinary frequency or urinary urgency Skin/Breast: Denies: rash Neuro: Denies: headache(s) or confusion PFS ED PFSH: Medical History Diabetes mellitus Type I GERD (gastroesophageal reflux disease) Type 1 diabetes Surgical History No pertinent past surgical history Family History Other Diabetes Social History Smoking and tobacco status: former smoker Alcohol intake: never Household members: family Housing: House Physical Exam Const: COMMON NORMALS: no acute distress GENERAL APPEARANCE: cooperative and comfortable ORIENTATION/CONSCIOUSNESS: Yes awake, Yes oriented to person, Yes oriented to place and Yes oriented to time HENMT: COMMON NORMALS: normocephalic, atraumatic and hearing grossly normal bilaterally HEAD & SCALP: normocephalic and atraumatic Neck/C-Spine: COMMON NORMALS: no JVD Resp: COMMON NORMALS: normal respiratory effort, No retractions, No use of accessory muscles and clear to auscultation bilaterally AUSCULTATION: clear to auscultation bilaterally Cardio: COMMON NORMALS: no JVD, regular rate, regular rhythm and No murmurs present (Cardio) RATE: regular rate RHYTHM: regular rhythm GI: COMMON NORMALS: Soft to palpation and No hepatosplenomegaly present AUSCULTATION: Yes normoactive bowel sounds PALPATION: Yes Soft to palpation, No Tenderness to palpation present (GI), No Guarding due to palpation present (GI) and Yes No hepatosplenomegaly present Extremity: COMMON NORMALS: normal to inspection, capillary refill normal, no clubbing, cyanosis or edema, no calf tenderness and no pedal edema Neuro: SENSORIUM/ORIENTATION: Yes oriented to person, Yes oriented to place and Yes oriented to time Skin: COMMON NORMALS: no rashes or lesions noted GENERAL SKIN EXAM: no rashes or lesions noted Course Vital Signs: Vital signs: Vital Signs Temperature 97.4 F L 11/07/20 14:18 Pulse Rate 95 11/07/20 15:26 Respiratory Rate 14 11/07/20 15:26 Blood Pressure 121/90 11/07/20 15:26 Pulse Oximetry 99 11/07/20 15:26 MDM - General Adult MDM Narrative: Medical decision making narrative: Lipase elevated patient is feeling somewhat better. He does have a elevated anion gap as well. Given his history of fragile diabetes control him afraid if he is not kept on observation he will deteriorate to DKA warranting a longer hospital stay. I think it is better for him to be Obstet overnight and if his symptoms improve he likely be able to be discharged tomorrow for short period of time n.p.o. Discussed Dr. Smith orders written. Lab Data: Labs: Lab Results 11/07/20 11/07/20 11/07/20 Range/Units 14:33 14:51 15:08 WBC 13.8 H (4.0-10.0) 10^3/ uL RBC 5.07 (4.1-5.3) 10^6/u L Hgb 15.8 (11.7-16.6) g/dL Hct 46.4 (42.0-52.0) % MCV 91.5 (80-94) fL MCH 31.2 (28.0-34.0) pg MCHC 34.1 (30.0-36.0) g/dL RDW 13.2 (12.1-15.1) % Plt Count 308 (130-400) 10^3/c mm MPV 9.5 (7.4-10.4) fL Neut % (Auto) 88.3 % Lymph % (Auto) 7.2 % Mcduffie % (Auto) 4.0 % Eos % (Auto) 0.0 % Baso % (Auto) 0.1 % Neut # (Auto) 12.14 H (1.8-7.7) 10^3/u L Lymph # (Auto) 1.0 (0.8-4.8) 10^3/u L Mcduffie # (Auto) 0.6 (0.2-0.9) 10^3/u L Eos # (Auto) 0.0 (0.0-0.8) 10^3/u L Baso # (Auto) 0.0 (0.0-0.1) 10^3/u L Nucleated RBC % (a uto) 0 % Nucleated RBCs # 0.0 /100WBC Specimen Type Arterial Sample Site Radial, right ABG pH 7.41 (7.35-7.45) ABG pCO2 31.9 L (35-45) mmHg ABG pO2 103.0 H (80.0-100.0) mmH g ABG HCO3 20.3 L (22-26) mmol/L ABG O2 Saturation 98.7 ABG Base Excess -3.3 L (-2.0-2.0) mmol/ L Hasmukh Test Pos A-a O2 Gradient 0.9 L (5-10) mmHg Hematocrit 48.5 (42-52) % Hgb O2 Saturation 96.7 (95-100) % Carboxyhemoglobin 1.0 (0.4-20.1) %THgb Methemoglobin 1.1 (0.4-1.5) % Total Hemoglobin 15.8 (14-18) g/dL Sodium 134.0 (131-143) mmol/L Potassium 4.2 (3.5-5.0) mmol/L Glucose 228.0 H (70-115) mg/dL Ionized Calcium 1.3 (1.1-1.4) mmol/L O2 Delivery Device Room air Package Dyeing Machine Operator ID Gd Chloride (98-107) mmol/L Carbon Dioxide (22-29) mmol/L Anion Gap (5-19) BUN (6-20) mg/dL Creatinine (0.7-1.2) mg/dL GFR Calculation (90-130) mL/min POC Glucose 258 H (70-110) mg/dL Calculated Osmolal ity (285-295) mOsm/k g Calcium (8.5-10.5) mg/dL Magnesium (1.7-2.3) mg/dL Total Bilirubin (0.15-1.2) mg/dL AST (0-40) U/L ALT (0-41) U/L Alkaline Phosphata se (40-130) IU/L Creatine Kinase (39-308) U/L Total Protein (6.6-8.7) g/dL Albumin (3.5-5.2) g/dL Globulin (1.3-4.6) g/dL Lipase (13-60) U/L // Range/Units 15:08 WBC (4.0-10.0) 10^3/ uL RBC (4.1-5.3) 10^6/u L Hgb (11.7-16.6) g/dL Hct (42.0-52.0) % MCV (80-94) fL MCH (28.0-34.0) pg MCHC (30.0-36.0) g/dL RDW (12.1-15.1) % Plt Count (130-400) 10^3/c mm MPV (7.4-10.4) fL Neut % (Auto) % Lymph % (Auto) % Mcduffie % (Auto) % Eos % (Auto) % Baso % (Auto) % Neut # (Auto) (1.8-7.7) 10^3/u L Lymph # (Auto) (0.8-4.8) 10^3/u L Mcduffie # (Auto) (0.2-0.9) 10^3/u L Eos # (Auto) (0.0-0.8) 10^3/u L Baso # (Auto) (0.0-0.1) 10^3/u L Nucleated RBC % (a uto) % Nucleated RBCs # /100WBC Specimen Type Sample Site ABG pH (7.35-7.45) ABG pCO2 (35-45) mmHg ABG pO2 (80.0-100.0) mmH g ABG HCO3 (22-26) mmol/L ABG O2 Saturation ABG Base Excess (-2.0-2.0) mmol/ L Hasmukh Test A-a O2 Gradient (5-10) mmHg Hematocrit (42-52) % Hgb O2 Saturation (95-100) % Carboxyhemoglobin (0.4-20.1) %THgb Methemoglobin (0.4-1.5) % Total Hemoglobin (14-18) g/dL Sodium 135 L (131-143) mmol/L Potassium 4.4 (3.5-5.0) mmol/L Glucose 224 H (70-115) mg/dL Ionized Calcium (1.1-1.4) mmol/L O2 Delivery Device Package Dyeing Machine Operator ID Chloride 96 L (98-107) mmol/L Carbon Dioxide 20 L (22-29) mmol/L Anion Gap 23.4 H (5-19) BUN 16 (6-20) mg/dL Creatinine 0.9 (0.7-1.2) mg/dL GFR Calculation 104.6 (90-130) mL/min POC Glucose (70-110) mg/dL Calculated Osmolal ity 288 (285-295) mOsm/k g Calcium 9.8 (8.5-10.5) mg/dL Magnesium 1.8 (1.7-2.3) mg/dL Total Bilirubin 0.9 (0.15-1.2) mg/dL AST 13 (0-40) U/L ALT 18 (0-41) U/L Alkaline Phosphata se 63 (40-130) IU/L Creatine Kinase 36 L (39-308) U/L Total Protein 8.0 (6.6-8.7) g/dL Albumin 4.9 (3.5-5.2) g/dL Globulin 3.1 (1.3-4.6) g/dL Lipase 1226 H (13-60) U/L Discharge Plan Discharge Patient Disposition: Placed in Observation Clinical Impression: Diabetes mellitus, Marijuana use, Pancreatitis Condition: Stable Prescriptions: No Action (DME) Omnipod Dash 5 Pack Pod Cartridge SUBCUT RF: 0 Lantus U-100 Insulin 100 unit/mL solution 15 unit SUBCUT BID Qty: 10 RF: 0 insulin aspart U-100 [Novolog Flexpen U-100 Insulin] 100 unit/mL (3 mL) insulin pen See Protocol unit SUBCUT QAM Qty: 15 RF: 0 promethazine 25 mg tablet 25 mg PO Q8H PRN (Reason: NAUSEA/VOMITING) RF: 0 Referrals: Earlene Titus FNP-C [Primary Care Provider] - Coding Level of Care Code ED Preparer for Chg Fwd Exam Comprehensive
[2020-11-07 15:06] LABS: ABG PCO2 31.9 mmHg (35-45); ABG PH Result 7.41 (7.35-7.45); Alveolar-Arterial Oxygen Gradi 0.9 mmHg (5-10); Arterial Blood Gas Hematocrit 48.5 % (42-52); Base Excess ABG -3.3 mmol/L (-2.0-2.0); Blood Gas Allen Test Pos; Blood Gas Operator Identificat GD; Blood Gas Sample Site Radial, right; Blood Gas Sample Type Arterial; HCO3 ABG 20.3 mmol/L (22-26); HGB O2 Sat 96.7 % (95-100); Ionized Calcium Level - ABG 1.3 mmol/L (1.1-1.4); Methemoglobin 1.1 % (0.4-1.5); Oxygen Device ROOM AIR; Oxygen Saturation ABG 98.7; Potassium Level - ABG 4.2 mmol/L (3.5-5.0); Total Hemoglobin 15.8 g/dL (14-18)
[2020-11-07 15:14] LABS: Basophils % 0.1 %; Hematocrit 46.4 % (42.0-52.0); Hemoglobin 15.8 g/dL (11.7-16.6); Lymphocytes % 7.2 %; Mean Corpuscular HGB Conc 34.1 g/dL (30.0-36.0); Mean Corpuscular Hemoglobin 31.2 pg (28.0-34.0); Mean Corpuscular Volume 91.5 fL (80-94); Mean Platelet Volume 9.5 fL (7.4-10.4); Monocytes # 0.6 10^3/uL (0.2-0.9); Neutrophils # 12.14 10^3/uL (1.8-7.7); Neutrophils % 88.3 %; Nucleated Red Blood Cells % 0 %; Platelet Count 308 10^3/cmm (130-400); Red Blood Count 5.07 10^6/uL (4.1-5.3); Red Cell Distribution Width 13.2 % (12.1-15.1); White Blood Count 13.8 10^3/uL (4.0-10.0)
[2020-11-07 15:26] VITALS: BP 121/90; PULSE 95; RESP 14; O2SAT 99
[2020-11-07] MEDS: sodium chloride 0.9% 1,000 ML 999 ML IV ×2 (15:40→17:55)
[2020-11-07] MEDS: insulin regular-human 100 units/1 mL 10 UNIT IVP (15:40)
[2020-11-07 16:06] LABS: Alanine Aminotransferase 18 U/L (0-41); Albumin Level 4.9 g/dL (3.5-5.2); Alkaline Phosphatase 63 IU/L (40-130); Anion Gap 23.4 (5-19); Aspartate Amino Transferase 13 U/L (0-40); Blood Urea Nitrogen 16 mg/dL (6-20); Calcium 9.8 mg/dL (8.5-10.5); Carbon Dioxide 20 mmol/L (22-29); Chloride 96 mmol/L (98-107); Creatine Phosphokinase 36 U/L (39-308); Creatinine Clr Calc Pharmacy 123.2393; Globulin 3.1 g/dL (1.3-4.6); Glomerular Filtration Rate 104.6 mL/min (90-130); Glucose 224 mg/dL (65-115); Magnesium 1.8 mg/dL (1.7-2.3); Osmolality Calculated 288 mOsm/kg (285-295); Potassium 4.4 mmol/L (3.5-5.1); Sodium 135 mmol/L (136-145); Total Bilirubin 0.9 mg/dL (0.15-1.2)
[2020-11-07 16:18] LABS: Lipase 1226 U/L (13-60)
--- NOTE | 2020-11-07 16:31 | CTR_ITS ---
PROCEDURE INFORMATION: Exam: CT Abdomen And Pelvis With Contrast Exam date and time: 11/07/2020 4:41 PM Age: 25 years old Clinical indication: Nausea; Patient HX: Type 1 diabetic; Additional info: Abd pain TECHNIQUE: Imaging protocol: Computed tomography of the abdomen and pelvis with contrast. Radiation optimization: All CT scans at this facility use at least one of these dose optimization techniques: automated exposure control; mA and/or kV adjustment per patient size (includes targeted exams where dose is matched to clinical indication); or iterative reconstruction. Contrast material: OMNI 300; Contrast volume: 95 ml; Contrast route: INTRAVENOUS (IV); COMPARISON: CT abdomen pelvis wo con [id number] 11/01/2020 1:55 AM RADIATION DOSE METRICS: Total DLP (mGy-cm): 819.27 FINDINGS: Lungs: There is a 3 mm sized noncalcified nodule in the left lower lobe on image number 6 and an incidental 4 mm size nodule at the right base on image 2. One at the left base was included on prior examinations and is not changed the since 2018. In patients of this age group these are likely benign and do not require further follow-up. Liver: There is no focal abnormality within the liver. Gallbladder and bile ducts: The gallbladder is normal. Pancreas: The pancreas is normal. Spleen: The spleen is normal. Adrenal glands: The adrenal glands are normal. Kidneys and ureters: The kidneys are normal. Stomach and bowel: There is no evidence of colitis/diverticulitis. There are 2 areas of small bowel intussusception noted on this examination. One on the left side of the abdomen such as an image number 40 of axial series 2 and in the mid abdomen to the right of midline such as on image 47. The etiology and significance of these is not certain but they may be transient. Clinical correlation and follow-up is suggested. Appendix: Not Identified Intraperitoneal space: There is no evidence of free intraperitoneal fluid. Vasculature: Unremarkable. No abdominal aortic aneurysm. Lymph nodes: Unremarkable. No enlarged lymph nodes. Urinary bladder: Unremarkable as visualized. Reproductive: Unremarkable as visualized. Bones/joints: Unremarkable. No acute fracture. Soft tissues: Unremarkable. CT/CT abdomen pelvis w con* [id number] IMPRESSION: Two areas of small bowel intussusception are noted. Clinical correlation follow-up suggested. Radiation Dose CTDIVOL = (mGy): DLP = 819.27 (mGy-cm)
[2020-11-07] MEDS: iohexol 300 mg/mL 100 mL Btl IV (16:41)
[2020-11-07] MEDS: piperacillin-tazobactam 3.375 GM in sodium chloride 0.9% (plus) 50 ML IV (17:55)
[2020-11-07 17:56] VITALS: PULSE 101; RESP 14; O2SAT 100
[2020-11-07 18:01] LABS: Add Urine Microscopic? YES; Bacteria Urine TRACE /hpf; Bilirubin Urine 1+ (Negative); Blood Urine Neg (Negative); Glucose Urine UA 4+ (Normal); Ketones Urine 3+ (Negative); Leukocyte Esterase Urine Negative (Negative); Nitrate Urine Negative (Negative); Protein Urine Trace (Negative); RBC Urine 0-4 /hpf (0-2); Squamous Epithelial Cell Urine 0-4 /hpf (0-5); Urine Appearance Clear (CLEAR); Urine Color Yellow (Yellow); Urobilinogen Urine 1 mg/dL (Negative); WBC Urine 0-4 /hpf (0-5); pH Urine 5 (5-7)
[2020-11-07 18:41] VITALS: BP 106/62; PULSE 98; RESP 18; TEMP 36.9; O2SAT 99
--- NOTE | 2020-11-07 19:24 | PM.HP ---
Providers/Chief Complaint Admitting Physician: David Smith MD Primary Care Provider: MARGE Castellano Chief Complaint: Type 1 diabetic/ sugar high History of Present Illness Salvatore Ott is a 25 year old male 25-year-old male presents emergency room with complaints of elevated blood sugar. Patient has a history of frequent DKA and chronic cannabinoid abuse. He was discharged November 03 after a 5-day stay for DKA.Reports nausea and vomiting. Deny chest pain, confusion, cough, diaphoresis, decreased appetite, dyspnea, fevers/chills, headache(s), malaise, rash, palpitations, seizures, short of breath, syncope or weakness. ECA : Course : Pertinent labs : Lipase: 1226 , CT abdomen pelvis w con: Liver: There is no focal abnormality within the liver. Gallbladder and bile ducts: The gallbladder is normal. Pancreas: The pancreas is normal. Review of Systems Const: Denies: fever(s), chills, body aches, change in appetite or diaphoresis Card: Denies: palpitations, edema, swelling of feet/ankles, dyspnea on exertion, orthopnea or leg pain with exertion Resp: Denies: dyspnea, productive cough, wheezing or pain on inspiration : Denies: flank pain or difficulty urinating Musc: Denies: back pain, extremity pain or extremity swelling Neuro: Denies: headache(s), difficulty walking or confusion Medications/Allergies Home Medications Medication Instructions Recorded Confirmed Last Taken Type insulin pump cartridge [Omnipod 10/18/20 11/07/20 Unknown History Dash 5 Pack Pod] insulin aspart U-100 [Novolog See Protocol SUBCUT QAM #15 ml 11/03/20 11/07/20 11/07/20 Rx Flexpen U-100 Insulin] insulin glargine [Lantus U-100 15 unit SUBCUT BID #10 ml 11/03/20 11/07/20 11/07/20 Rx Insulin] promethazine 25 mg PO Q8H PRN 11/07/20 11/07/20 11/07/20 History Allergies Allergy/AdvReac Type Severity Reaction Status Date / Time No Known Allergies Allergy Unverified 11/07/20 11:55 PFSH Acute PFSH: Medical History Diabetes mellitus Type I GERD (gastroesophageal reflux disease) Type 1 diabetes Surgical History No pertinent past surgical history Family History Other Diabetes Social History Smoking and tobacco status: former smoker Alcohol intake: never Household members: family Housing: House Vitals/I&O/Wt Last Vital Signs Temp 98.4 F 11/07/20 18:41 Pulse 98 11/07/20 18:41 Resp 18 11/07/20 18:41 BP 106/62 11/07/20 18:41 Pulse Ox 99 11/07/20 18:41 11/07/20 11/07/20 11/07/20 06:59 14:59 22:59 Intake Total 1000 / 1000 Balance 1000 / 1000 Weight last 48 hrs Weight 68.039 kg Physical Exam Const: COMMON NORMALS: patient oriented x3 HENMT: COMMON NORMALS: normocephalic and atraumatic Chest: CHEST: Yes Symmetrical chest wall rise Resp: COMMON NORMALS: clear to auscultation bilaterally EFFORT & INSPECTION: Yes symmetric chest movement AUSCULTATION: clear to auscultation bilaterally Cardio: COMMON NORMALS: regular rate, regular rhythm, S1 normal heart sound present, S2 normal heart sound present, No gallops present (Cardio), No murmurs present (Cardio), No rub (Cardio) and Peripheral pulses 2+ throughout RATE: regular rate RHYTHM: regular rhythm HEART SOUNDS: S1 normal heart sound present and S2 normal heart sound present PERIPHERAL PULSES: Peripheral pulses 2+ throughout GI: AUSCULTATION: Yes normoactive bowel sounds PALPATION: Yes Soft to palpation and Yes No hepatosplenomegaly present RECTAL EXAM: Yes deferred OTHER: Epigastric tenderness Extremity: COMMON NORMALS: no clubbing, cyanosis or edema and no pedal edema Neuro: COMMON NORMALS: patient oriented x3 Data : 11/07/20 15:08 11/07/20 15:08 A&P Assessment and plan (1) Pancreatitis: NPO I.V Hydration Pain Control Status: Acute (2) Diabetes mellitus: LDSSI FSG Status: Acute (3) Hyperglycemia: Status: Acute (4) Marijuana use: Status: Acute Attestations Medical Necessity Statement*: Patient needs to be in hospital for the management of Ac Pancreatitis.Anticipated LOS less then 2 midnights. 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
[2020-11-07 20:00] VITALS: BP 128/81; PULSE 106; RESP 15; TEMP 37.2; O2SAT 98
[2020-11-07 20:55] LABS: Glucose Point of Care 172 mg/dL (70-110)
[2020-11-07] MEDS: dextrose 5%-sod chloride 0.45% 1,000 ML 75 ML IV (21:16)
[2020-11-07] MEDS: enoxaparin 40 mg/0.4 mL Syringe SUBCUT (21:40)
[2020-11-07] MEDS: famotidine 20 mg/2 mL INJ IVP (21:41)
[2020-11-07 23:00] LABS: Lipase 1147 U/L (13-60)
[2020-11-08] VITALS: BP 124/74; PULSE 92; RESP 16; TEMP 36.9; O2SAT 97
[2020-11-08 04:00] VITALS: BP 128/78; PULSE 97; RESP 16; TEMP 37.3; O2SAT 97
[2020-11-08 06:37] LABS: Glucose Point of Care 262 mg/dL (70-110)
[2020-11-08 07:14] LABS: Basophils % 0.5 %; Hematocrit 39.8 % (42.0-52.0); Hemoglobin 13.4 g/dL (11.7-16.6); Lymphocytes # 0.8 10^3/uL (0.8-4.8); Lymphocytes % 11.8 %; Mean Corpuscular HGB Conc 33.7 g/dL (30.0-36.0); Mean Corpuscular Hemoglobin 30.9 pg (28.0-34.0); Mean Corpuscular Volume 91.7 fL (80-94); Mean Platelet Volume 9.7 fL (7.4-10.4); Monocytes # 0.5 10^3/uL (0.2-0.9); Neutrophils # 5.26 10^3/uL (1.8-7.7); Neutrophils % 79.2 %; Nucleated Red Blood Cells % 0 %; Platelet Count 202 10^3/cmm (130-400); Red Blood Count 4.34 10^6/uL (4.1-5.3); Red Cell Distribution Width 13.1 % (12.1-15.1); White Blood Count 6.6 10^3/uL (4.0-10.0)
[2020-11-08 07:39] VITALS: BP 132/76; PULSE 97; RESP 18; TEMP 36.7; O2SAT 97
[2020-11-08 07:43] LABS: Procalcitonin 0.18 ng/mL (0-0.5)
[2020-11-08] MEDS: famotidine 20 mg/2 mL INJ IVP (07:43)
[2020-11-08 07:54] LABS: Alanine Aminotransferase 13 U/L (0-41); Albumin Level 3.7 g/dL (3.5-5.2); Alkaline Phosphatase 48 IU/L (40-130); Anion Gap 15.1 (5-19); Aspartate Amino Transferase 10 U/L (0-40); Blood Urea Nitrogen 9 mg/dL (6-20); Calcium 8.4 mg/dL (8.5-10.5); Carbon Dioxide 22 mmol/L (22-29); Chloride 95 mmol/L (98-107); Glomerular Filtration Rate 206.1 mL/min (90-130); Glucose 267 mg/dL (65-115); Osmolality Calculated 274 mOsm/kg (285-295); Potassium 4.1 mmol/L (3.5-5.1); Sodium 128 mmol/L (136-145); Total Bilirubin 0.8 mg/dL (0.15-1.2); Total Protein 5.7 g/dL (6.6-8.7)
[2020-11-08 11:37] LABS: Glucose Point of Care 269 mg/dL (70-110)
[2020-11-08 12:00] VITALS: BP 124/77; PULSE 84; RESP 18; TEMP 36.6; O2SAT 98
--- NOTE | 2020-11-08 12:18 | P.DS_ITS ---
Discharge Providers Date of Admission: 11/07/20 17:50 Date of Discharge: November 08, 2020 Attending Provider at Admission: David Smith MD Attending Provider at Discharge: David Smith MD Primary Care Provider: MAREG Castellano Diagnoses at Discharge Discharge Diagnosis (1) Pancreatitis: Status: Resolved (2) Diabetes mellitus: Status: Chronic Permanent problem details: Type I (3) Hyperglycemia: Status: Resolved (4) Marijuana use: Status: Chronic Reason for Visit Reason for Visit: Type 1 diabetic/ sugar high Hospital Course Hospital Course 25 year old male 25-year-old male presents emergency room with complaints of elevated blood sugar. Patient has a history of frequent DKA and chronic cannabinoid abuse. He was discharged November 03 after a 5-day stay for DKA.on admission he reported nausea and vomiting and epigastric pain. Deny chest pain, confusion, cough, diaphoresis, decreased appetite, dyspnea, fevers/chills, headache(s), malaise, rash, palpitations, seizures, short of breath, syncope or weakness. ECA : Course : Pertinent labs : Lipase: 1226 , CT abdomen pelvis w con: Liver: There is no focal abnormality within the liver. Gallbladder and bile ducts: The gallbladder is normal. Pancreas: The pancreas is normal. He was admitted for the management of acute pancreatitis as well as hyperglycemia. He was given regular insulin 10 units in the ER, as well as zosyn in the ER. During the hospital stay he was initially kept NPO but later when his nausea vomiting and pain subside he was started on diet. At the time of discharge he had no nausea vomiting abdominal pain, he was able to tolerate diet well.His blood sugars were also better controlled.He was discharged in stable condition. Physical Exam Const: COMMON NORMALS: patient oriented x3 HENMT: COMMON NORMALS: normocephalic and atraumatic HEAD & SCALP: normocephalic and atraumatic Chest: CHEST: Yes Symmetrical chest wall rise Resp: COMMON NORMALS: clear to auscultation bilaterally EFFORT & INSPECTION: Yes symmetric chest movement AUSCULTATION: clear to auscultation bilaterally Cardio: COMMON NORMALS: regular rate, regular rhythm, S1 normal heart sound present, S2 normal heart sound present, No gallops present (Cardio), No murmurs present (Cardio), No rub (Cardio) and Peripheral pulses 2+ throughout RATE: regular rate RHYTHM: regular rhythm HEART SOUNDS: S1 normal heart sound present and S2 normal heart sound present PERIPHERAL PULSES: Peripheral pulses 2+ throughout GI: COMMON NORMALS: Soft to palpation and No hepatosplenomegaly present AUSCULTATION: Yes normoactive bowel sounds PALPATION: Yes Soft to palpation and Yes No hepatosplenomegaly present RECTAL EXAM: Yes deferred Extremity: COMMON NORMALS: no clubbing, cyanosis or edema and no pedal edema Neuro: COMMON NORMALS: patient oriented x3 Discharge Data Data Completed and Pending: Completed Studies During Hospitalization Category Date Time Status CT abdomen pelvis w con* [id number] Stat Cat Scan 11/07/20 16:31 Completed XR chest 1V merry ble [id number] Stat Exams 11/07/20 14:42 Completed Pending at discharge Category Date Time Status Complete Blood Co unt w/Auto AM LABS Lab 11/09/20 04:00 Ordered Complete Blood Co unt w/Auto AM LABS Lab 11/10/20 04:00 Ordered Comprehensive Met abolic Panel AM LA BS Lab 11/09/20 04:00 Ordered Comprehensive Met abolic Panel AM LA BS Lab 11/10/20 04:00 Ordered Labs from last 24 hours 11/08/20 11/08/20 11/08/20 11:01 06:33 06:23 WBC RBC Hgb Hct MCV MCH MCHC RDW Plt Count MPV Neut % (Auto) Lymph % (Auto) Wagoner % (Auto) Eos % (Auto) Baso % (Auto) Neut # (Auto) Lymph # (Auto) Wagoner # (Auto) Eos # (Auto) Baso # (Auto) Nucleated RBC % (a uto) Nucleated RBCs # Specimen Type Sample Site ABG pH ABG pCO2 ABG pO2 ABG HCO3 ABG O2 Saturation ABG Base Excess Hasmukh Test A-a O2 Gradient Hematocrit Hgb O2 Saturation Carboxyhemoglobin Methemoglobin Total Hemoglobin Sodium 128 L Potassium 4.1 Glucose 267 H Ionized Calcium O2 Delivery Device Caseworker Intake ID Chloride 95 L Carbon Dioxide 22 Anion Gap 15.1 BUN 9 Creatinine 0.5 L GFR Calculation 206.1 H POC Glucose 269 H 262 H Calculated Osmolal ity 274 L Calcium 8.4 L Magnesium Total Bilirubin 0.8 AST 10 ALT 13 Alkaline Phosphata se 48 Creatine Kinase Total Protein 5.7 L D Albumin 3.7 Globulin 2.0 Lipase Procalcitonin 0.18 Urine Color Urine Appearance Urine pH Ur Specific Gravit y Urine Protein Urine Glucose (UA) Urine Ketones Urine Blood Urine Nitrate Urine Bilirubin Urine Urobilinogen Ur Leukocyte Mini ase Urine RBC Urine WBC Ur Squamous Epith Cells Amorphous Sediment Urine Bacteria 11/08/20 11/07/20 11/07/20 06:23 21:43 20:51 WBC 6.6 RBC 4.34 Hgb 13.4 Hct 39.8 L MCV 91.7 MCH 30.9 MCHC 33.7 RDW 13.1 Plt Count 202 MPV 9.7 Neut % (Auto) 79.2 Lymph % (Auto) 11.8 Wagoner % (Auto) 8.0 Eos % (Auto) 0.0 Baso % (Auto) 0.5 Neut # (Auto) 5.26 Lymph # (Auto) 0.8 Wagoner # (Auto) 0.5 Eos # (Auto) 0.0 Baso # (Auto) 0.0 Nucleated RBC % (a uto) 0 Nucleated RBCs # 0.0 Specimen Type Sample Site ABG pH ABG pCO2 ABG pO2 ABG HCO3 ABG O2 Saturation ABG Base Excess Hasmukh Test A-a O2 Gradient Hematocrit Hgb O2 Saturation Carboxyhemoglobin Methemoglobin Total Hemoglobin Sodium Potassium Glucose Ionized Calcium O2 Delivery Device Caseworker Intake ID Chloride Carbon Dioxide Anion Gap BUN Creatinine GFR Calculation POC Glucose 172 H Calculated Osmolal ity Calcium Magnesium Total Bilirubin AST ALT Alkaline Phosphata se Creatine Kinase Total Protein Albumin Globulin Lipase 1147 H Procalcitonin Urine Color Urine Appearance Urine pH Ur Specific Gravit y Urine Protein Urine Glucose (UA) Urine Ketones Urine Blood Urine Nitrate Urine Bilirubin Urine Urobilinogen Ur Leukocyte Mini ase Urine RBC Urine WBC Ur Squamous Epith Cells Amorphous Sediment Urine Bacteria 11/07/20 11/07/20 11/07/20 17:33 15:08 15:08 WBC 13.8 H RBC 5.07 Hgb 15.8 Hct 46.4 MCV 91.5 MCH 31.2 MCHC 34.1 RDW 13.2 Plt Count 308 MPV 9.5 Neut % (Auto) 88.3 Lymph % (Auto) 7.2 Wagoner % (Auto) 4.0 Eos % (Auto) 0.0 Baso % (Auto) 0.1 Neut # (Auto) 12.14 H Lymph # (Auto) 1.0 Wagoner # (Auto) 0.6 Eos # (Auto) 0.0 Baso # (Auto) 0.0 Nucleated RBC % (a uto) 0 Nucleated RBCs # 0.0 Specimen Type Sample Site ABG pH ABG pCO2 ABG pO2 ABG HCO3 ABG O2 Saturation ABG Base Excess Hasmukh Test A-a O2 Gradient Hematocrit Hgb O2 Saturation Carboxyhemoglobin Methemoglobin Total Hemoglobin Sodium 135 L Potassium 4.4 Glucose 224 H Ionized Calcium O2 Delivery Device Caseworker Intake ID Chloride 96 L Carbon Dioxide 20 L Anion Gap 23.4 H BUN 16 Creatinine 0.9 GFR Calculation 104.6 POC Glucose Calculated Osmolal ity 288 Calcium 9.8 Magnesium 1.8 Total Bilirubin 0.9 AST 13 ALT 18 Alkaline Phosphata se 63 Creatine Kinase 36 L Total Protein 8.0 Albumin 4.9 Globulin 3.1 Lipase 1226 H Procalcitonin Urine Color Yellow Urine Appearance Clear Urine pH 5 Ur Specific Gravit y 1.020 Urine Protein Trace Urine Glucose (UA) 4+ H Urine Ketones 3+ H Urine Blood Neg Urine Nitrate Negative Urine Bilirubin 1+ H Urine Urobilinogen 1 H Ur Leukocyte Mini ase Negative Urine RBC 0-4 H Urine WBC 0-4 H Ur Squamous Epith Cells 0-4 H Amorphous Sediment Not Reportable Urine Bacteria Trace 11/07/20 11/07/20 14:51 14:33 WBC RBC Hgb Hct MCV MCH MCHC RDW Plt Count MPV Neut % (Auto) Lymph % (Auto) Wagoner % (Auto) Eos % (Auto) Baso % (Auto) Neut # (Auto) Lymph # (Auto) Wagoner # (Auto) Eos # (Auto) Baso # (Auto) Nucleated RBC % (a uto) Nucleated RBCs # Specimen Type Arterial Sample Site Radial, right ABG pH 7.41 ABG pCO2 31.9 L ABG pO2 103.0 H ABG HCO3 20.3 L ABG O2 Saturation 98.7 ABG Base Excess -3.3 L Hasmukh Test Pos A-a O2 Gradient 0.9 L Hematocrit 48.5 Hgb O2 Saturation 96.7 Carboxyhemoglobin 1.0 Methemoglobin 1.1 Total Hemoglobin 15.8 Sodium 134.0 Potassium 4.2 Glucose 228.0 H Ionized Calcium 1.3 O2 Delivery Device Room air Caseworker Intake ID Gd Chloride Carbon Dioxide Anion Gap BUN Creatinine GFR Calculation POC Glucose 258 H Calculated Osmolal ity Calcium Magnesium Total Bilirubin AST ALT Alkaline Phosphata se Creatine Kinase Total Protein Albumin Globulin Lipase Procalcitonin Urine Color Urine Appearance Urine pH Ur Specific Gravit y Urine Protein Urine Glucose (UA) Urine Ketones Urine Blood Urine Nitrate Urine Bilirubin Urine Urobilinogen Ur Leukocyte Mini ase Urine RBC Urine WBC Ur Squamous Epith Cells Amorphous Sediment Urine Bacteria Vitals: Last Vital Signs Temp 97.9 F 11/08/20 12:00 Pulse 84 11/08/20 12:00 Resp 18 11/08/20 12:00 BP 124/77 11/08/20 12:00 Pulse Ox 98 11/08/20 12:00 Discharge Plan Discharge Patient Disposition: Home Condition: Stable Prescriptions: Continued Lantus U-100 Insulin 100 unit/mL solution 15 unit SUBCUT BID Qty: 10 RF: 0 insulin aspart U-100 [Novolog Flexpen U-100 Insulin] 100 unit/mL (3 mL) insulin pen See Protocol unit SUBCUT QAM Qty: 15 RF: 0 promethazine 25 mg tablet 25 mg PO Q8H PRN (Reason: NAUSEA/VOMITING) RF: 0 No Action (DME) Omnipod Dash 5 Pack Pod Cartridge SUBCUT RF: 0 Discharge Orders: Discharge Order (Routine); Ordered 11/08/20 Ordered By: David Smith Referrals: Earlene Titus FNP-C [Primary Care Provider] - (DREA Dodd will call you Tuesday and set up an appointment to follow up with Nicci Titus.) Evelin Metz MD [Physician] - 11/12/20 4:00 pm Discharge Diet: Diabetic Discharge Activity: Resume usual activity Patient Instructions: Type 1 Diabetes, Pancreatitis (GEN), Diabetes Mellitus Type 1 in Adults (GEN) Discharge Attestations Time Spent in Discharge Care*: less than 30 min Specific Discharge Activities: educating patient, educating and/or supporting family/caregiver, discussing with casework manager/social workers/dc planners, documenting/other paperwork and evaluating patient/reviewing data Status at Discharge: Cognitive status at discharge: cognitively intact , Behavioral status at discharge: cooperative , Quality Metrics Clinical Quality Measures During this hospital stay, did patient experience: None Coding Level of Care Code 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
[2020-11-08 15:22] VITALS: BP 124/77; PULSE 84; RESP 18; TEMP 36.6; O2SAT 98
--- NOTE | 2020-11-08 15:24 | PC.NURSE ---
IV removed at 1245, cath tip intact. bleeding controlled with 2x2 and coban. patient tolerated well. went over discharge instructions and follow up appointments, patient verbalized understanding. patients ride was not able to come get him until 1500. this nurse walked patient down to private vehicle at 1500 into the care of his girlfriend.
== END 2020-11-08 15:00 | disposition home or self-care (01) ==
LOC: ER 17:54 → MEDSURG 18:09
PROVIDERS: Admitting Provider Internal Medicine; Emergency Provider Family Medicine; PCP Nurse Practitioner Family; Visit Provider Internal Medicine
DX: K85.90 Acute pancreatitis without necrosis or infection, unspecified (principal); F12.90 Cannabis use, unspecified, uncomplicated; E11.65 Type 2 diabetes mellitus with hyperglycemia; K21.9 Gastro-esophageal reflux disease without esophagitis; Z87.891 Personal history of nicotine dependence
CPT/HCPCS: 36415; 36416; 36600; 71045; 74177; 80051; 80053; 81001; 82330; 82550; 82805; 82962; 83690; 83735; 84145; 85025; 93005; 96361; 96365; 96372; 96375; 99285; G0378; J1650; J1815; J2543; J3490; J7030; J7799; Q9967

== ENCOUNTER → 2020-11-12 16:07 | Outpatient (BNVA) | payer MEDICARE, MEDICAID, SELFPAY | PROVIDERS: PCP Nurse Practitioner Family; Visit Provider Internal Medicine | DX: E10.65 Type 1 diabetes mellitus with hyperglycemia (principal); E16.0 Drug-induced hypoglycemia without coma; T38.3X5A Adverse effect of insulin and oral hypoglycemic [antidiabetic] drugs, initial encounter; Z79.4 Long term (current) use of insulin; Z87.19 Personal history of other diseases of the digestive system | CPT/HCPCS: 99205 ==

== ENCOUNTER 2020-11-27 11:30 | Inpatient (IN) | payer MEDICARE, MEDICAID, SELFPAY ==
[2020-11-27] VITALS (29 sets, daily range): BP systolic 114–135; BP diastolic 71–91; PULSE 92–128; RESP 12–33; TEMP 36.6–37.1; O2SAT 95–99; BMI 26.6
[2020-11-27 11:57] LABS: Glucose Point of Care 504 mg/dL (70-110)
[2020-11-27] MEDS: sodium chloride 0.9% 1,000 ML 999 ML IV (12:00)
[2020-11-27] MEDS: ondansetron 2 mg/ML SDV 2 mL 4 MG IVP ×2 (12:01→13:43)
[2020-11-27 12:02] LABS: Base Excess ABG -23.3 mmol/L (-2.0-2.0); Blood Gas Operator Identificat AMH; Blood Gas Sample Site Brachial, right; Blood Gas Sample Type Arterial; Oxygen Device ROOM AIR
[2020-11-27 12:03] LABS: ABG PCO2 13.4 mmHg (35-45); ABG PH Result 7.09 (7.35-7.45)
--- NOTE | 2020-11-27 12:36 | W.ED.GENADLT ---
HPI - General Adult General: Chief complaint: General Medical Stated complaint: DKA/ ELEVATED BS Time Seen by Provider: 11/27/20 11:31 History of Present Illness: HPI narrative: This patient is a 25 year old type 1 diabetic presenting with suspected DKA. He has a history of frequent presentations with such. He has been vomiting and feeling bad since yesterday. He says that he took his sliding scale insulin this morning, but can't tell me what his glucose measurement was or what dose of insulin he took. He also has a history of alcohol abuse and admits to drinking alcohol today. He has had an insulin pump but does not appear to be using it today. Review of Systems General: Reports: ROS unobtainable due to medical condition and ROS unobtainable due to mental status PFSH ED PFSH: Medical History Diabetes mellitus Type I GERD (gastroesophageal reflux disease) Hyperglycemia Marijuana use Pancreatitis Type 1 diabetes Surgical History No pertinent past surgical history Family History Other Diabetes Social History Smoking and tobacco status: former smoker Alcohol intake: never Household members: family Housing: House Physical Exam Const: GENERAL APPEARANCE: cooperative, in distress, lethargic and ill appearing NUTRITIONAL APPEARANCE: thin ORIENTATION/CONSCIOUSNESS: Yes oriented to person and Yes lethargic HENMT: HEAD & SCALP: normal to inspection FACE & SINUS: normal facial exam MOUTH: moist mucous membranes abnormal Details: parched Eye: GENERAL EYE: appearance normal, both eyes and all related structures Neck/C-Spine: COMMON NORMALS: supple, no meningeal signs and no JVD Chest: COMMONS NORMALS: normal inspection of the chest Resp: COMMON NORMALS: No use of accessory muscles and clear to auscultation bilaterally EFFORT & INSPECTION: Yes tachypneic AUSCULTATION: clear to auscultation bilaterally Cardio: COMMON NORMALS: no JVD, regular rate, regular rhythm and No murmurs present (Cardio) RATE: regular rate RHYTHM: regular rhythm GI: COMMON NORMALS: Normal to inspection, nondistended, normoactive bowel sounds present, Soft to palpation and non-tender INSPECTION: Yes normal to inspection AUSCULTATION: Yes normoactive bowel sounds PALPATION: Yes Soft to palpation Back/Pelvis: COMMON NORMALS: thoracic and lumbar spine normal to inspection Extremity: COMMON NORMALS: normal to inspection Neuro: COMMON NORMALS: moves all extremities, no focal motor deficits and no sensory deficits noted SENSORIUM/ORIENTATION: Yes oriented to person and Yes lethargic MENINGEAL SIGNS: Yes no meningeal signs Psych: COMMON NORMALS: mental status grossly normal, cooperative and normal affect Skin: COMMON NORMALS: no rashes or lesions noted and turgor normal GENERAL SKIN EXAM: no rashes or lesions noted and turgor normal Course ED course: Patient with elevated blood sugar, pH 7.087, Na 133, CO2 on CMP 7. Dehydration. Started on fluids, insulin drip. Potassium 4.8 initially. Standard insulin drip protocol used. Discussed with Dr. Arevalo - will admit to ICU for further management. Vital Signs: Vital signs: Vital Signs Temperature 97.8 F 11/27/20 11:36 Pulse Rate 126 H 11/27/20 14:13 Respiratory Rate 20 H 11/27/20 14:13 Blood Pressure 123/85 11/27/20 11:50 Pulse Oximetry 97 11/27/20 14:13 MDM - General Adult MDM Narrative: Medical decision making narrative: DKA, AKA, underlying infection Lab Data: Labs: Lab Results 11/27/20 11/27/20 11/27/20 Range/Units 11:50 11:53 13:05 WBC 11.6 H (4.0-10.0) 10^3/ uL RBC 5.69 H (4.1-5.3) 10^6/u L Hgb 17.9 H (11.7-16.6) g/dL Hct 54.2 H (42.0-52.0) % MCV 95.3 H (80-94) fL MCH 31.5 (28.0-34.0) pg MCHC 33.0 (30.0-36.0) g/dL RDW 13.5 (12.1-15.1) % Plt Count 252 (130-400) 10^3/c mm MPV 9.3 (7.4-10.4) fL Neut % (Auto) 91.9 % Lymph % (Auto) 3.0 % [place] % (Auto) 2.6 % Eos % (Auto) 0.0 % Baso % (Auto) 0.7 % Neut # (Auto) 10.69 H (1.8-7.7) 10^3/u L Lymph # (Auto) 0.4 L (0.8-4.8) 10^3/u L [place] # (Auto) 0.3 (0.2-0.9) 10^3/u L Eos # (Auto) 0.0 (0.0-0.8) 10^3/u L Baso # (Auto) 0.1 (0.0-0.1) 10^3/u L Nucleated RBC % (a uto) 0 % Nucleated RBCs # 0.0 /100WBC Specimen Type Arterial Sample Site Brachial, right ABG pH 7.09 L* (7.35-7.45) ABG pCO2 13.4 L* (35-45) mmHg ABG pO2 126.0 H (80.0-100.0) mmH g ABG HCO3 4.0 L (22-26) mmol/L ABG Base Excess -23.3 L (-2.0-2.0) mmol/ L Hasmukh Test N/a Hematocrit 57.0 H (42-52) % O2 Delivery Device Room air FiO2 21.0 % Channel Program Manager ID Amh Sodium (136-145) mmol/L Potassium (3.5-5.1) mmol/L Chloride (98-107) mmol/L Carbon Dioxide (22-29) mmol/L Anion Gap (5-19) BUN (6-20) mg/dL Creatinine (0.7-1.2) mg/dL GFR Calculation (90-130) mL/min Glucose (65-115) mg/dL POC Glucose 504 H* (70-110) mg/dL Calculated Osmolal ity (285-295) mOsm/k g Lactic Acid (0.5-2.2) mmol/L Calcium (8.5-10.5) mg/dL Magnesium (1.7-2.3) mg/dL Total Bilirubin (0.15-1.2) mg/dL AST (0-40) U/L ALT (0-41) U/L Alkaline Phosphata se (40-130) IU/L Total Protein (6.6-8.7) g/dL Albumin (3.5-5.2) g/dL Globulin (1.3-4.6) g/dL Lipase (13-60) U/L Urine Color (Yellow) Urine Appearance (CLEAR) Urine pH (5-7) Ur Specific Gravit y (1.005-1.030) Urine Protein (Negative) Urine Glucose (UA) (Normal) Urine Ketones (Negative) Urine Blood (Negative) Urine Nitrate (Negative) Urine Bilirubin (Negative) Urine Urobilinogen (Negative) mg/dL Ur Leukocyte Mini ase (Negative) Urine RBC (0-2) /hpf Urine WBC (0-5) /hpf Ur Squamous Epith Cells (0-5) /hpf Amorphous Sediment Urine Bacteria (NONE) /hpf Ethyl Alcohol (0-10) mg/dL Serum Ketones (Negative) 11/27/20 11/27/20 11/27/20 Range/Units 13:05 13:05 13:05 WBC (4.0-10.0) 10^3/ uL RBC (4.1-5.3) 10^6/u L Hgb (11.7-16.6) g/dL Hct (42.0-52.0) % MCV (80-94) fL MCH (28.0-34.0) pg MCHC (30.0-36.0) g/dL RDW (12.1-15.1) % Plt Count (130-400) 10^3/c mm MPV (7.4-10.4) fL Neut % (Auto) % Lymph % (Auto) % [place] % (Auto) % Eos % (Auto) % Baso % (Auto) % Neut # (Auto) (1.8-7.7) 10^3/u L Lymph # (Auto) (0.8-4.8) 10^3/u L [place] # (Auto) (0.2-0.9) 10^3/u L Eos # (Auto) (0.0-0.8) 10^3/u L Baso # (Auto) (0.0-0.1) 10^3/u L Nucleated RBC % (a uto) % Nucleated RBCs # /100WBC Specimen Type Sample Site ABG pH (7.35-7.45) ABG pCO2 (35-45) mmHg ABG pO2 (80.0-100.0) mmH g ABG HCO3 (22-26) mmol/L ABG Base Excess (-2.0-2.0) mmol/ L Hasmukh Test Hematocrit (42-52) % O2 Delivery Device FiO2 % Channel Program Manager ID Sodium 133 L (136-145) mmol/L Potassium 4.8 (3.5-5.1) mmol/L Chloride 98 (98-107) mmol/L Carbon Dioxide 7 L* (22-29) mmol/L Anion Gap 32.8 H (5-19) BUN 16 (6-20) mg/dL Creatinine 0.8 (0.7-1.2) mg/dL GFR Calculation 119.8 (90-130) mL/min Glucose 303 H (65-115) mg/dL POC Glucose (70-110) mg/dL Calculated Osmolal ity 289 (285-295) mOsm/k g Lactic Acid 1.5 (0.5-2.2) mmol/L Calcium 8.3 L (8.5-10.5) mg/dL Magnesium 2.2 (1.7-2.3) mg/dL Total Bilirubin 0.3 (0.15-1.2) mg/dL AST 22 (0-40) U/L ALT 26 (0-41) U/L Alkaline Phosphata se 77 (40-130) IU/L Total Protein 8.2 (6.6-8.7) g/dL Albumin 4.7 (3.5-5.2) g/dL Globulin 3.5 (1.3-4.6) g/dL Lipase 374 H (13-60) U/L Urine Color (Yellow) Urine Appearance (CLEAR) Urine pH (5-7) Ur Specific Gravit y (1.005-1.030) Urine Protein (Negative) Urine Glucose (UA) (Normal) Urine Ketones (Negative) Urine Blood (Negative) Urine Nitrate (Negative) Urine Bilirubin (Negative) Urine Urobilinogen (Negative) mg/dL Ur Leukocyte Mini ase (Negative) Urine RBC (0-2) /hpf Urine WBC (0-5) /hpf Ur Squamous Epith Cells (0-5) /hpf Amorphous Sediment Urine Bacteria (NONE) /hpf Ethyl Alcohol < 10 (0-10) mg/dL Serum Ketones Positive H (Negative) 03/25/21 03/25/21 03/25/21 Range/Units 13:36 13:47 14:40 WBC (4.0-10.0) 10^3/ uL RBC (4.1-5.3) 10^6/u L Hgb (11.7-16.6) g/dL Hct (42.0-52.0) % MCV (80-94) fL MCH (28.0-34.0) pg MCHC (30.0-36.0) g/dL RDW (12.1-15.1) % Plt Count (130-400) 10^3/c mm MPV (7.4-10.4) fL Neut % (Auto) % Lymph % (Auto) % [place] % (Auto) % Eos % (Auto) % Baso % (Auto) % Neut # (Auto) (1.8-7.7) 10^3/u L Lymph # (Auto) (0.8-4.8) 10^3/u L [place] # (Auto) (0.2-0.9) 10^3/u L Eos # (Auto) (0.0-0.8) 10^3/u L Baso # (Auto) (0.0-0.1) 10^3/u L Nucleated RBC % (a uto) % Nucleated RBCs # /100WBC Specimen Type Sample Site ABG pH (7.35-7.45) ABG pCO2 (35-45) mmHg ABG pO2 (80.0-100.0) mmH g ABG HCO3 (22-26) mmol/L ABG Base Excess (-2.0-2.0) mmol/ L Hasmukh Test Hematocrit (42-52) % O2 Delivery Device FiO2 % Channel Program Manager ID Sodium (136-145) mmol/L Potassium (3.5-5.1) mmol/L Chloride (98-107) mmol/L Carbon Dioxide (22-29) mmol/L Anion Gap (5-19) BUN (6-20) mg/dL Creatinine (0.7-1.2) mg/dL GFR Calculation (90-130) mL/min Glucose (65-115) mg/dL POC Glucose 281 H 228 H (70-110) mg/dL Calculated Osmolal ity (285-295) mOsm/k g Lactic Acid (0.5-2.2) mmol/L Calcium (8.5-10.5) mg/dL Magnesium (1.7-2.3) mg/dL Total Bilirubin (0.15-1.2) mg/dL AST (0-40) U/L ALT (0-41) U/L Alkaline Phosphata se (40-130) IU/L Total Protein (6.6-8.7) g/dL Albumin (3.5-5.2) g/dL Globulin (1.3-4.6) g/dL Lipase (13-60) U/L Urine Color Straw (Yellow) Urine Appearance Clear (CLEAR) Urine pH 5 (5-7) Ur Specific Gravit y 1.025 (1.005-1.030) Urine Protein 1+ H (Negative) Urine Glucose (UA) 4+ H (Normal) Urine Ketones 2+ H (Negative) Urine Blood Neg (Negative) Urine Nitrate Negative (Negative) Urine Bilirubin Neg (Negative) Urine Urobilinogen Norm (Negative) mg/dL Ur Leukocyte Mini ase Negative (Negative) Urine RBC None (0-2) /hpf Urine WBC None (0-5) /hpf Ur Squamous Epith Cells 0-4 H (0-5) /hpf Amorphous Sediment Not Reportable Urine Bacteria Trace (NONE) /hpf Ethyl Alcohol (0-10) mg/dL Serum Ketones (Negative) Discharge Plan Discharge Patient Disposition: Admitted As Inpatient Admit Provider: Xiomara Arevalo Coding Level of Care Code ED [employer] for g Fwd Exam Comprehensive
[2020-11-27] MEDS: sodium chloride 0.9% 1,000 ML 30 ML IV (12:51)
[2020-11-27] MEDS: insulin regular-human 250 UNIT in sodium chloride 0.9% 250 ML 7 UNIT IV (12:59)
--- NOTE | 2020-11-27 13:01 | PC.NURSE ---
Spoke with Dr. Holden. Insulin drip started at 7mls/hr (7Units/hr) per MD.
[2020-11-27 13:11] LABS: Basophils # 0.1 10^3/uL (0.0-0.1); Basophils % 0.7 %; Hematocrit 54.2 % (42.0-52.0); Hemoglobin 17.9 g/dL (11.7-16.6); Lymphocytes # 0.4 10^3/uL (0.8-4.8); Mean Corpuscular Hemoglobin 31.5 pg (28.0-34.0); Mean Corpuscular Volume 95.3 fL (80-94); Mean Platelet Volume 9.3 fL (7.4-10.4); Monocytes # 0.3 10^3/uL (0.2-0.9); Monocytes % 2.6 %; Neutrophils # 10.69 10^3/uL (1.8-7.7); Neutrophils % 91.9 %; Nucleated Red Blood Cells % 0 %; Platelet Count 252 10^3/cmm (130-400); Red Blood Count 5.69 10^6/uL (4.1-5.3); Red Cell Distribution Width 13.5 % (12.1-15.1); White Blood Count 11.6 10^3/uL (4.0-10.0)
[2020-11-27 13:39] LABS: Glucose Point of Care 281 mg/dL (70-110)
--- NOTE | 2020-11-27 13:41 | PC.NURSE ---
insulin drip titrated from 7ml/hr to 3ml/hr per Dr. Holden via POC blood glucose.
[2020-11-27 13:46] LABS: Lactic Sepsis W/Reflex 1.5 mmol/L (0.5-2.2)
[2020-11-27 13:48] LABS: Alanine Aminotransferase 26 U/L (0-41); Albumin Level 4.7 g/dL (3.5-5.2); Alkaline Phosphatase 77 IU/L (40-130); Anion Gap 32.8 (5-19); Aspartate Amino Transferase 22 U/L (0-40); Blood Urea Nitrogen 16 mg/dL (6-20); Calcium 8.3 mg/dL (8.5-10.5); Chloride 98 mmol/L (98-107); Globulin 3.5 g/dL (1.3-4.6); Glomerular Filtration Rate 119.8 mL/min (90-130); Glucose 303 mg/dL (65-115); Magnesium 2.2 mg/dL (1.7-2.3); Osmolality Calculated 289 mOsm/kg (285-295); Potassium 4.8 mmol/L (3.5-5.1); Sodium 133 mmol/L (136-145); Total Bilirubin 0.3 mg/dL (0.15-1.2); Total Protein 8.2 g/dL (6.6-8.7)
[2020-11-27 14:00] LABS: Glucose Urine UA 4+ (Normal); Ketones Urine 2+ (Negative); Protein Urine 1+ (Negative); Specific Gravity, Urine 1.025 (1.005-1.030); Urine Appearance Clear (CLEAR); Urine Color Straw (Yellow); pH Urine 5 (5-7)
[2020-11-27 14:01] LABS: Add Urine Microscopic? YES; Bilirubin Urine Neg (Negative); Blood Urine Neg (Negative); Leukocyte Esterase Urine Negative (Negative); Nitrate Urine Negative (Negative); Urobilinogen Urine Norm (Negative)
[2020-11-27 14:04] LABS: Ketone (Acetest) Serum Positive (Negative)
[2020-11-27 14:06] LABS: Add Urine Culture? No; Bacteria Urine TRACE /hpf; Squamous Epithelial Cell Urine 0-4 /hpf (0-5)
[2020-11-27 14:18] LABS: Alcohol Level < 10 mg/dL (0-10); Carbon Dioxide 7 mmol/L (22-29); Lipase 374 U/L (13-60)
[2020-11-27 14:44] LABS: Glucose Point of Care 228 mg/dL (70-110)
[2020-11-27] MEDS: D5-NS 0.45% + KCL 20 mEq 20 MEQ/1,000 ML BAG 150 MEQ IV ×2 (15:00→21:53)
--- NOTE | 2020-11-27 15:42 | PC.NURSE ---
Dextrose drip held per Dr. Holden. D5 in 0.45% NS with 20meq K started at 150mg per Dr. Holden.
--- NOTE | 2020-11-27 15:48 | PC.NURSE ---
pt report called to Susie LYN in SBAR format.
--- NOTE | 2020-11-27 16:22 | PM.HP ---
Providers/Chief Complaint Admitting Physician: Xiomara Arevalo MD Primary Care Provider: MARGE Castellano Chief Complaint: DKA/ ELEVATED BS History of Present Illness Salvatore Ott is a 25 year old male with a past medical history of diabetes mellitus, with multiple hospital admissions for DKA in the past who presents to the emergency room today with DKA. History is obtained by chart review and by talking to patient's mother as patient is quite somnolent right now and is unable to give me any meaningful history. Patient was last admitted here on November 07, 2020 for DKA, treated with insulin infusion, IV hydration, discharged to follow-up with endocrinology on November 12. He usually wears an insulin pump, however more recently he has been on Lantus and NovoLog according to instructions provided at most recent endocrinology follow-up. He was asked to bring in his insulin pump so that the settings could be adjusted. Per his mother, his next follow-up appointment was to be in May. Patient lives with his girlfriend, his mother checks in on him quite frequently and as far as she is aware patient was taking his Lantus and NovoLog as prescribed. He has been diligent about checking his blood sugar, these were ranging between 200-300 at home. He described over an overall feeling of being unwell over the last 3 days, patient himself vaguely tells me he had a stomach bug however denies any fever, nausea, vomiting or diarrhea. He is sunburned over his face and arms, per mother he was out in the yard for a while 3 days ago. Not engaged in any strenuous activity. Alcohol level is negative today. Significant labs include severe metabolic acidosis, ABG with 7.09/13.4/126/4. Anion gap of 32, initially blood sugar at 500, on last check at 288 after being started on insulin infusion in the ED. He is quite somnolent and appears to be dehydrated today. Review of Systems General: Reports: ROS unobtainable due to medical condition and ROS unobtainable due to mental status Medications/Allergies Home Medications Medication Instructions Recorded Confirmed Last Taken Type insulin pump cartridge [Omnipod 10/18/20 11/27/20 Unknown History Dash 5 Pack Pod] Lantus U-100 Insulin 15 unit SUBCUT BID #10 ml 03/09/2511/27/20 11/07/20 Rx insulin aspart U-100 [Novolog See Protocol SUBCUT QAM #15 ml 11/03/20 11/27/20 11/07/20 Rx Flexpen U-100 Insulin] promethazine 25 mg PO Q8H PRN 11/07/20 11/27/20 11/07/20 History blood-glucose meter,continuous #1 ea 11/26/20 11/27/20 Unknown Rx blood-glucose sensor #3 ea 11/26/20 11/27/20 Unknown Rx blood-glucose transmitter #3 ea 11/26/20 11/27/20 Unknown Rx Allergies Allergy/AdvReac Type Severity Reaction Status Date / Time No Known Allergies Allergy Verified 11/27/20 11:43 PFSH Acute PFSH: Medical History Diabetes mellitus Type I GERD (gastroesophageal reflux disease) Hyperglycemia Marijuana use Pancreatitis Type 1 diabetes Surgical History No pertinent past surgical history Family History Other Diabetes Social History Smoking and tobacco status: former smoker Alcohol intake: never Household members: family Housing: House Vitals/I&O/Wt Last Vital Signs Temp 97.8 F 11/27/20 11:36 Pulse 126 H 11/27/20 14:13 Resp 20 H 11/27/20 14:13 BP 123/85 11/27/20 11:50 Pulse Ox 97 11/27/20 14:13 11/27/20 11/27/20 11/27/20 06:59 14:59 22:59 Intake Total 1004.667 / 1004.667 Balance 1004.667 / 1004.667 Weight last 48 hrs Weight 72.575 kg Physical Exam Narrative: EXAM NARRATIVE: GENERAL: Somnolent, dehydrated, wakes up to calling name, speaks few short words in sentences which are appropriate. Sunburn noted over face bilateral arms and shoulders HEENT: Normocephalic, atraumatic, PERRLA. [] CHEST: Clear to auscultation bilaterally. [] CVS: S1, S2 normal. No murmur, rubs, gallops. Peripheral pulses palpable. [] ABDOMEN: Soft, nontender. Nondistended. Bowel sounds heard. [] NEUROVASCULAR: Moves all extremities while laying in bed, follows commands when awake EXTREMITIES: No edema, dehydration present. [] Data : 11/27/20 13:05 11/27/20 13:05 A&P Assessment and plan (1) Diabetic ketoacidosis: Admit to ICU Start insulin infusion at 0.1 units/kg/h, reduce infusion 2.0 to 2.05 units/kg/h once blood sugar level reaches 200, add D5 half-normal saline at 150 cc an hour Patient appears grossly dehydrated, bolus 1 L of normal saline alongside pH currently at 7.09, hold off on adding bicarb unless pH less than 6.9. Repeat ABG now. Replete potassium to keep level between 3.3-5.3 Check CMP every 4 hours Closely monitor his neurological and respiratory functions All updates discussed with mother, discussed that if metabolic acidosis continues to worsen or patient becomes more somnolent to the point where he is unable to protect his airways, he may need intubation and mechanical ventilation. Mother acknowledges understanding and agrees. Status: Acute Attestations Medical Necessity Statement*: Diabetic ketoacidosis with severe metabolic acidosis, requires IV insulin infusion, IV hydration, close monitoring of neurological and respiratory status. Anticipate greater than 2 midnight admission Coding Level of Care Code Acute Corporate Travel Expert for Chg Fani Diagnoses Diabetic ketoacidosis E11.10
[2020-11-27 16:31] LABS: Glucose Point of Care 241 mg/dL (70-110)
[2020-11-27 16:53] LABS: Glucose Point of Care 242 mg/dL (70-110)
[2020-11-27 17:24] LABS: Alanine Aminotransferase 23 U/L (0-41); Albumin Level 4.5 g/dL (3.5-5.2); Alkaline Phosphatase 67 IU/L (40-130); Blood Urea Nitrogen 16 mg/dL (6-20); Carbon Dioxide 10 mmol/L (22-29); Chloride 103 mmol/L (98-107); Glomerular Filtration Rate 119.8 mL/min (90-130); Glucose 247 mg/dL (65-115); Osmolality Calculated 289 mOsm/kg (285-295); Sodium 135 mmol/L (136-145); Total Bilirubin 0.4 mg/dL (0.15-1.2); Total Protein 7.5 g/dL (6.6-8.7)
[2020-11-27 17:36] LABS: ABG PCO2 25.8 mmHg (35-45); ABG PH Result 7.24 (7.35-7.45); Arterial Blood Gas Hematocrit 53.6 % (42-52); Base Excess ABG -14.4 mmol/L (-2.0-2.0); Blood Gas Allen Test Pos; Blood Gas Sample Site Brachial, right; Blood Gas Sample Type Arterial; Oxygen Device ROOM AIR
[2020-11-27 17:40] LABS: Anion Gap 27.1 (5-19); Aspartate Amino Transferase 21 U/L (0-40); Potassium 5.1 mmol/L (3.5-5.1)
[2020-11-27 17:52] LABS: SARS Covid-2 Antigen Negative (Negative)
[2020-11-27 18:02] LABS: Glucose Point of Care 227 mg/dL (70-110)
[2020-11-27] MEDS: famotidine 20 mg/2 mL INJ IVP (18:04)
--- NOTE | 2020-11-27 18:18 | PC.NURSE ---
1645- patient arrived to floor via stretcher. Insulin gtt infusing at 3 mls/hour. Blood glucose checked upon arrival and insulin gtt protocol started. See paper chart/mar for titration. Patient drowsy, AAO X3, answers questions appropriately and follows commands. Denies c/o at this time.
[2020-11-27 19:12] LABS: Glucose Point of Care 219 mg/dL (70-110)
[2020-11-27 20:32] LABS: Alanine Aminotransferase 21 U/L (0-41); Albumin Level 4.5 g/dL (3.5-5.2); Alkaline Phosphatase 65 IU/L (40-130); Anion Gap 19.4 (5-19); Aspartate Amino Transferase 16 U/L (0-40); Blood Urea Nitrogen 14 mg/dL (6-20); Calcium 8.1 mg/dL (8.5-10.5); Carbon Dioxide 15 mmol/L (22-29); Chloride 107 mmol/L (98-107); Globulin 2.7 g/dL (1.3-4.6); Glomerular Filtration Rate 139.8 mL/min (90-130); Glucose 202 mg/dL (65-115); Osmolality Calculated 290 mOsm/kg (285-295); Potassium 4.4 mmol/L (3.5-5.1); Sodium 137 mmol/L (136-145); Total Bilirubin 0.4 mg/dL (0.15-1.2); Total Protein 7.2 g/dL (6.6-8.7)
[2020-11-27 21:19] LABS: Glucose Point of Care 196 mg/dL (70-110)
[2020-11-27 21:19] LABS: Glucose Point of Care 197 mg/dL (70-110)
[2020-11-27 22:36] LABS: ABG PCO2 30.8 mmHg (35-45); ABG PH Result 7.31 (7.35-7.45); Arterial Blood Gas Hematocrit 53.8 % (42-52); Base Excess ABG -9.3 mmol/L (-2.0-2.0); Blood Gas Allen Test Pos; Blood Gas Operator Identificat JB; Blood Gas Sample Site Brachial, right; Blood Gas Sample Type Arterial; Carboxyhemoglobin 0.8 %THgb (0.4-20.1); HCO3 ABG 15.5 mmol/L (22-26); HGB O2 Sat 97.6 % (95-100); Ionized Calcium Level - ABG 1.2 mmol/L (1.1-1.4); Methemoglobin 0.7 % (0.4-1.5); Oxygen Saturation ABG 99.1; Potassium Level - ABG 3.7 mmol/L (3.5-5.0); Total Hemoglobin 17.6 g/dL (14-18)
[2020-11-28] VITALS (20 sets, daily range): BP systolic 105–141; BP diastolic 68–104; PULSE 82–116; RESP 12–28; TEMP 36.6–37.2; O2SAT 93–99
[2020-11-28 00:45] LABS: Alanine Aminotransferase 20 U/L (0-41); Albumin Level 4.1 g/dL (3.5-5.2); Alkaline Phosphatase 63 IU/L (40-130); Anion Gap 16.8 (5-19); Aspartate Amino Transferase 15 U/L (0-40); Blood Urea Nitrogen 13 mg/dL (6-20); Calcium 8.5 mg/dL (8.5-10.5); Carbon Dioxide 16 mmol/L (22-29); Chloride 108 mmol/L (98-107); Globulin 2.8 g/dL (1.3-4.6); Glucose 108 mg/dL (65-115); Osmolality Calculated 285 mOsm/kg (285-295); Potassium 3.8 mmol/L (3.5-5.1); Sodium 137 mmol/L (136-145); Total Bilirubin 0.5 mg/dL (0.15-1.2); Total Protein 6.9 g/dL (6.6-8.7)
[2020-11-28 01:03] LABS: Glucose Point of Care 147 mg/dL (70-110)
[2020-11-28 01:03] LABS: Glucose Point of Care 136 mg/dL (70-110)
[2020-11-28 01:03] LABS: Glucose Point of Care 124 mg/dL (70-110)
[2020-11-28 01:03] LABS: Glucose Point of Care 102 mg/dL (70-110)
[2020-11-28 02:11] LABS: Glucose Point of Care 100 mg/dL (70-110)
[2020-11-28 03:09] LABS: Glucose Point of Care 96 mg/dL (70-110)
[2020-11-28] MEDS: D5-NS 0.45% + KCL 20 mEq 20 MEQ/1,000 ML BAG 150 MEQ IV ×2 (04:08→11:14)
[2020-11-28 04:10] LABS: Glucose Point of Care 91 mg/dL (70-110)
[2020-11-28 05:08] LABS: Glucose Point of Care 90 mg/dL (70-110)
[2020-11-28 05:38] LABS: Alanine Aminotransferase 18 U/L (0-41); Albumin Level 4.1 g/dL (3.5-5.2); Alkaline Phosphatase 57 IU/L (40-130); Anion Gap 16.9 (5-19); Aspartate Amino Transferase 14 U/L (0-40); Blood Urea Nitrogen 14 mg/dL (6-20); Calcium 8.2 mg/dL (8.5-10.5); Carbon Dioxide 17 mmol/L (22-29); Chloride 108 mmol/L (98-107); Globulin 2.6 g/dL (1.3-4.6); Glucose 93 mg/dL (65-115); Osmolality Calculated 286 mOsm/kg (285-295); Potassium 3.9 mmol/L (3.5-5.1); Sodium 138 mmol/L (136-145); Total Bilirubin 0.5 mg/dL (0.15-1.2); Total Protein 6.7 g/dL (6.6-8.7)
[2020-11-28 05:54] LABS: Basophils % 0.4 %; Eosinophils % 0.1 %; Hematocrit 47.4 % (42.0-52.0); Hemoglobin 16.5 g/dL (11.7-16.6); Lymphocytes # 0.9 10^3/uL (0.8-4.8); Lymphocytes % 10.5 %; Mean Corpuscular HGB Conc 34.8 g/dL (30.0-36.0); Mean Corpuscular Hemoglobin 31.6 pg (28.0-34.0); Mean Corpuscular Volume 90.8 fL (80-94); Mean Platelet Volume 9.6 fL (7.4-10.4); Monocytes # 0.5 10^3/uL (0.2-0.9); Monocytes % 6.2 %; Neutrophils # 6.75 10^3/uL (1.8-7.7); Neutrophils % 82.3 %; Nucleated Red Blood Cells % 0 %; Platelet Count 250 10^3/cmm (130-400); Red Blood Count 5.22 10^6/uL (4.1-5.3); Red Cell Distribution Width 13.8 % (12.1-15.1); White Blood Count 8.2 10^3/uL (4.0-10.0)
[2020-11-28] MEDS: famotidine 20 mg/2 mL INJ IVP ×2 (06:03→17:02)
[2020-11-28 06:08] LABS: Glucose Point of Care 86 mg/dL (70-110)
[2020-11-28 07:17] LABS: Glucose Point of Care 92 mg/dL (70-110)
[2020-11-28 08:59] LABS: Alanine Aminotransferase 19 U/L (0-41); Albumin Level 3.7 g/dL (3.5-5.2); Alkaline Phosphatase 56 IU/L (40-130); Anion Gap 16.7 (5-19); Aspartate Amino Transferase 14 U/L (0-40); Blood Urea Nitrogen 11 mg/dL (6-20); Calcium 8.4 mg/dL (8.5-10.5); Carbon Dioxide 16 mmol/L (22-29); Chloride 106 mmol/L (98-107); Globulin 2.7 g/dL (1.3-4.6); Glomerular Filtration Rate 206.1 mL/min (90-130); Glucose 85 mg/dL (65-115); Osmolality Calculated 279 mOsm/kg (285-295); Potassium 3.7 mmol/L (3.5-5.1); Sodium 135 mmol/L (136-145); Total Bilirubin 0.6 mg/dL (0.15-1.2); Total Protein 6.4 g/dL (6.6-8.7)
[2020-11-28 09:21] LABS: Glucose Point of Care 90 mg/dL (70-110)
[2020-11-28 09:21] LABS: Glucose Point of Care 83 mg/dL (70-110)
[2020-11-28] MEDS: insulin glargine 100 units/1 mL 30 UNIT SUBCUT (11:13)
[2020-11-28 11:16] LABS: Glucose Point of Care 105 mg/dL (70-110)
[2020-11-28 11:41] LABS: Glucose Point of Care 105 mg/dL (70-110)
--- NOTE | 2020-11-28 12:56 | PC.NURSE ---
1030- Verbal orders given per MD: insulin gtt at 1 unit/hour for 2 hours then d/c. Give 30 units lantus now, then 10 units novolog prior to lunch. 1230- Insulin gtt et fluids stopped as ordered. Patients blood glucose at this time 195. Will continue accuchecks ACHS.
[2020-11-28 13:37] LABS: Glucose Point of Care 194 mg/dL (70-110)
--- NOTE | 2020-11-28 14:39 | P.PN_ITS ---
Subjective Subjective: Interval history: Mental status is significantly improved this morning. Patient is alert awake oriented, anion gap is now closed, ABG much improved overnight. Requesting to eat Medications: Reviewed: Yes Vitals/I&O/Wt Last Vital Signs Temp 97.8 F 11/28/20 07:00 Pulse 116 H 11/28/20 14:00 Resp 12 11/28/20 14:00 BP 116/68 11/28/20 14:00 Pulse Ox 96 11/28/20 14:00 11/27/20 11/28/20 11/28/20 22:59 06:59 14:59 Intake Total 1046.176 / 2050.843 1324.617 / 3375.460 1765.216 / 1765.216 Output Total 750 / 750 150 / 900 Balance 296.176 / 3694.695 4158.617 / 2475.460 1765.216 / 1765.216 Weight last 48 hrs Weight 72.575 kg Physical Exam Narrative: EXAM NARRATIVE: GEN: Awake, alert and oriented, no acute distress CVS: S1S2 N RS: CTA B/L Abd: Soft, nt/nd , bs+ RETAIL MERCHANDISING COORDINATOR: no focal neuro deficits Data : 11/28/20 05:00 11/28/20 08:30 A&P Assessment and plan (1) Diabetic ketoacidosis: Anion gap is now closed at 16, patient is alert awake oriented, ABG looks much improved, resolved acidosis. Start carbohydrate consistent diet Overlap with 30 units of Lantus and 10 units of premeal insulin along with moderate insulin sliding scale. Discontinue insulin infusion after 2 hours overlap Estimated 24-hour requirement at 72 units. Repeat CMP at 4 PM. If gap remains closed, patient may be able to return home later this evening Hydration much improved Follow-up with endocrinology as outpatient within the next week, instructed to bring insulin pump at next visit Status: Acute Attestations Medical Necessity Statement*: titrating insulin drip off, overlap with s.c insulin Coding Level of Care Code Acute Wine Sales Representative for Chg Fani Diagnoses Diabetic ketoacidosis E11.10
[2020-11-28 16:16] LABS: Alanine Aminotransferase 18 U/L (0-41); Albumin Level 3.7 g/dL (3.5-5.2); Alkaline Phosphatase 55 IU/L (40-130); Anion Gap 14.6 (5-19); Aspartate Amino Transferase 17 U/L (0-40); Blood Urea Nitrogen 8 mg/dL (6-20); Calcium 8.3 mg/dL (8.5-10.5); Carbon Dioxide 19 mmol/L (22-29); Chloride 98 mmol/L (98-107); Globulin 2.5 g/dL (1.3-4.6); Glomerular Filtration Rate 206.1 mL/min (90-130); Glucose 169 mg/dL (65-115); Osmolality Calculated 268 mOsm/kg (285-295); Potassium 3.6 mmol/L (3.5-5.1); Sodium 128 mmol/L (136-145); Total Bilirubin 0.7 mg/dL (0.15-1.2); Total Protein 6.2 g/dL (6.6-8.7)
[2020-11-28 16:51] LABS: Glucose Point of Care 162 mg/dL (70-110)
--- NOTE | 2020-11-28 17:27 | P.DS_ITS ---
Discharge Providers Date of Admission: 11/27/20 14:42 Date of Discharge: November 28, 2020 Attending Provider at Admission: Xiomara Arevalo MD Attending Provider at Discharge: Xiomara Arevalo MD Primary Care Provider: MARGE Castellano Diagnoses at Discharge Discharge Diagnosis (1) Diabetic ketoacidosis: Status: Acute Reason for Visit Reason for Visit: DKA/ ELEVATED BS Hospital Course Hospital Course Please refer to my progress note from today. DKA resolved, repeat CMP with anion gap of 14. Patient is able to tolerate oral intake. Lantus adjusted to 20 units twice daily. NovoLog to continue per sliding scale as prescribed at the endocrinology clinic, extra 5 units to be added for a full meal. Follow-up appointment arranged for December 09 at [address] Metz, to bring his insulin pump to this appointment Discharge Data Data Completed and Pending: Pending at discharge Category Date Time Status ABG FULL [Arteria l Blood Gas Full] Routine Lab 11/27/20 22:21 Results Labs from last 24 hours 11/28/20 11/28/20 11/28/20 16:50 15:45 12:32 WBC RBC Hgb Hct MCV MCH MCHC RDW Plt Count MPV Neut % (Auto) Lymph % (Auto) [place] % (Auto) Eos % (Auto) Baso % (Auto) Neut # (Auto) Lymph # (Auto) [place] # (Auto) Eos # (Auto) Baso # (Auto) Nucleated RBC % (a uto) Nucleated RBCs # Specimen Type Sample Site ABG pH ABG pCO2 ABG pO2 ABG HCO3 ABG O2 Saturation ABG Base Excess Hasmukh Test A-a O2 Gradient Hematocrit Hgb O2 Saturation Carboxyhemoglobin Methemoglobin Total Hemoglobin Ionized Calcium O2 Delivery Device Security Team Lead ID Sodium 128 L Potassium 3.6 Chloride 98 Carbon Dioxide 19 L Anion Gap 14.6 BUN 8 Creatinine 0.5 L GFR Calculation 206.1 H Glucose 169 H POC Glucose 162 H 194 H Calculated Osmolal ity 268 L Calcium 8.3 L Total Bilirubin 0.7 AST 17 ALT 18 Alkaline Phosphata se 55 Total Protein 6.2 L Albumin 3.7 Globulin 2.5 SARS-CoV-2 Ag (Rap id) 11/28/20 11/28/20 11/28/20 11:31 10:03 09:18 WBC RBC Hgb Hct MCV MCH MCHC RDW Plt Count MPV Neut % (Auto) Lymph % (Auto) [place] % (Auto) Eos % (Auto) Baso % (Auto) Neut # (Auto) Lymph # (Auto) [place] # (Auto) Eos # (Auto) Baso # (Auto) Nucleated RBC % (a uto) Nucleated RBCs # Specimen Type Sample Site ABG pH ABG pCO2 ABG pO2 ABG HCO3 ABG O2 Saturation ABG Base Excess Hasmukh Test A-a O2 Gradient Hematocrit Hgb O2 Saturation Carboxyhemoglobin Methemoglobin Total Hemoglobin Ionized Calcium O2 Delivery Device Security Team Lead ID Sodium Potassium Chloride Carbon Dioxide Anion Gap BUN Creatinine GFR Calculation Glucose POC Glucose 105 105 83 Calculated Osmolal ity Calcium Total Bilirubin AST ALT Alkaline Phosphata se Total Protein Albumin Globulin SARS-CoV-2 Ag (Rap id) 11/28/20 11/28/20 11/28/20 08:30 08:13 07:14 WBC RBC Hgb Hct MCV MCH MCHC RDW Plt Count MPV Neut % (Auto) Lymph % (Auto) [place] % (Auto) Eos % (Auto) Baso % (Auto) Neut # (Auto) Lymph # (Auto) [place] # (Auto) Eos # (Auto) Baso # (Auto) Nucleated RBC % (a uto) Nucleated RBCs # Specimen Type Sample Site ABG pH ABG pCO2 ABG pO2 ABG HCO3 ABG O2 Saturation ABG Base Excess Hasmukh Test A-a O2 Gradient Hematocrit Hgb O2 Saturation Carboxyhemoglobin Methemoglobin Total Hemoglobin Ionized Calcium O2 Delivery Device Security Team Lead ID Sodium 135 L Potassium 3.7 Chloride 106 Carbon Dioxide 16 L Anion Gap 16.7 BUN 11 Creatinine 0.5 L GFR Calculation 206.1 H Glucose 85 POC Glucose 90 92 Calculated Osmolal ity 279 L Calcium 8.4 L Total Bilirubin 0.6 AST 14 ALT 19 Alkaline Phosphata se 56 Total Protein 6.4 L Albumin 3.7 Globulin 2.7 SARS-CoV-2 Ag (Rap id) 11/28/20 11/28/20 11/28/20 06:01 05:03 05:00 WBC RBC Hgb Hct MCV MCH MCHC RDW Plt Count MPV Neut % (Auto) Lymph % (Auto) [place] % (Auto) Eos % (Auto) Baso % (Auto) Neut # (Auto) Lymph # (Auto) [place] # (Auto) Eos # (Auto) Baso # (Auto) Nucleated RBC % (a uto) Nucleated RBCs # Specimen Type Sample Site ABG pH ABG pCO2 ABG pO2 ABG HCO3 ABG O2 Saturation ABG Base Excess Hasmukh Test A-a O2 Gradient Hematocrit Hgb O2 Saturation Carboxyhemoglobin Methemoglobin Total Hemoglobin Ionized Calcium O2 Delivery Device Security Team Lead ID Sodium 138 Potassium 3.9 Chloride 108 H Carbon Dioxide 17 L Anion Gap 16.9 BUN 14 Creatinine 0.6 L GFR Calculation 167.0 H Glucose 93 POC Glucose 86 90 Calculated Osmolal ity 286 Calcium 8.2 L Total Bilirubin 0.5 AST 14 ALT 18 Alkaline Phosphata se 57 Total Protein 6.7 Albumin 4.1 Globulin 2.6 SARS-CoV-2 Ag (Rap id) 11/28/20 11/28/20 11/28/20 05:00 04:04 03:04 WBC 8.2 RBC 5.22 Hgb 16.5 Hct 47.4 MCV 90.8 MCH 31.6 MCHC 34.8 D RDW 13.8 Plt Count 250 MPV 9.6 Neut % (Auto) 82.3 Lymph % (Auto) 10.5 [place] % (Auto) 6.2 Eos % (Auto) 0.1 Baso % (Auto) 0.4 Neut # (Auto) 6.75 Lymph # (Auto) 0.9 [place] # (Auto) 0.5 Eos # (Auto) 0.0 Baso # (Auto) 0.0 Nucleated RBC % (a uto) 0 Nucleated RBCs # 0.0 Specimen Type Sample Site ABG pH ABG pCO2 ABG pO2 ABG HCO3 ABG O2 Saturation ABG Base Excess Hasmukh Test A-a O2 Gradient Hematocrit Hgb O2 Saturation Carboxyhemoglobin Methemoglobin Total Hemoglobin Ionized Calcium O2 Delivery Device Security Team Lead ID Sodium Potassium Chloride Carbon Dioxide Anion Gap BUN Creatinine GFR Calculation Glucose POC Glucose 91 96 Calculated Osmolal ity Calcium Total Bilirubin AST ALT Alkaline Phosphata se Total Protein Albumin Globulin SARS-CoV-2 Ag (Rap id) 11/28/20 11/28/20 11/28/20 02:05 00:57 00:20 WBC RBC Hgb Hct MCV MCH MCHC RDW Plt Count MPV Neut % (Auto) Lymph % (Auto) [place] % (Auto) Eos % (Auto) Baso % (Auto) Neut # (Auto) Lymph # (Auto) [place] # (Auto) Eos # (Auto) Baso # (Auto) Nucleated RBC % (a uto) Nucleated RBCs # Specimen Type Sample Site ABG pH ABG pCO2 ABG pO2 ABG HCO3 ABG O2 Saturation ABG Base Excess Hasmukh Test A-a O2 Gradient Hematocrit Hgb O2 Saturation Carboxyhemoglobin Methemoglobin Total Hemoglobin Ionized Calcium O2 Delivery Device Security Team Lead ID Sodium 137 Potassium 3.8 Chloride 108 H Carbon Dioxide 16 L Anion Gap 16.8 BUN 13 Creatinine 0.6 L GFR Calculation 167.0 H Glucose 108 POC Glucose 100 102 Calculated Osmolal ity 285 Calcium 8.5 Total Bilirubin 0.5 AST 15 ALT 20 Alkaline Phosphata se 63 Total Protein 6.9 Albumin 4.1 Globulin 2.8 SARS-CoV-2 Ag (Rap id) 11/28/20 11/27/20 11/27/20 00:01 22:59 22:21 WBC RBC Hgb Hct MCV MCH MCHC RDW Plt Count MPV Neut % (Auto) Lymph % (Auto) [place] % (Auto) Eos % (Auto) Baso % (Auto) Neut # (Auto) Lymph # (Auto) [place] # (Auto) Eos # (Auto) Baso # (Auto) Nucleated RBC % (a uto) Nucleated RBCs # Specimen Type Arterial Sample Site Brachial, right ABG pH 7.31 L ABG pCO2 30.8 L ABG pO2 110.0 H ABG HCO3 15.5 L ABG O2 Saturation 99.1 ABG Base Excess -9.3 L Hasmukh Test Pos A-a O2 Gradient Pending Hematocrit 53.8 H Hgb O2 Saturation 97.6 Carboxyhemoglobin 0.8 Methemoglobin 0.7 Total Hemoglobin 17.6 Ionized Calcium 1.2 O2 Delivery Device Pending Security Team Lead ID Ramakrishna Sodium 142.0 Potassium 3.7 Chloride Carbon Dioxide Anion Gap BUN Creatinine GFR Calculation Glucose 141.0 H POC Glucose 147 H 124 H Calculated Osmolal ity Calcium Total Bilirubin AST ALT Alkaline Phosphata se Total Protein Albumin Globulin SARS-CoV-2 Ag (Rap id) 11/27/20 11/27/20 11/27/20 22:20 21:16 20:08 WBC RBC Hgb Hct MCV MCH MCHC RDW Plt Count MPV Neut % (Auto) Lymph % (Auto) [place] % (Auto) Eos % (Auto) Baso % (Auto) Neut # (Auto) Lymph # (Auto) [place] # (Auto) Eos # (Auto) Baso # (Auto) Nucleated RBC % (a uto) Nucleated RBCs # Specimen Type Sample Site ABG pH ABG pCO2 ABG pO2 ABG HCO3 ABG O2 Saturation ABG Base Excess Hasmukh Test A-a O2 Gradient Hematocrit Hgb O2 Saturation Carboxyhemoglobin Methemoglobin Total Hemoglobin Ionized Calcium O2 Delivery Device Security Team Lead ID Sodium 137 Potassium 4.4 Chloride 107 Carbon Dioxide 15 L Anion Gap 19.4 H BUN 14 Creatinine 0.7 GFR Calculation 139.8 H Glucose 202 H POC Glucose 136 H 197 H Calculated Osmolal ity 290 Calcium 8.1 L Total Bilirubin 0.4 AST 16 ALT 21 Alkaline Phosphata se 65 Total Protein 7.2 Albumin 4.5 Globulin 2.7 SARS-CoV-2 Ag (Rap id) 11/27/20 11/27/20 11/27/20 20:07 19:07 17:59 WBC RBC Hgb Hct MCV MCH MCHC RDW Plt Count MPV Neut % (Auto) Lymph % (Auto) [place] % (Auto) Eos % (Auto) Baso % (Auto) Neut # (Auto) Lymph # (Auto) [place] # (Auto) Eos # (Auto) Baso # (Auto) Nucleated RBC % (a uto) Nucleated RBCs # Specimen Type Sample Site ABG pH ABG pCO2 ABG pO2 ABG HCO3 ABG O2 Saturation ABG Base Excess Hasmukh Test A-a O2 Gradient Hematocrit Hgb O2 Saturation Carboxyhemoglobin Methemoglobin Total Hemoglobin Ionized Calcium O2 Delivery Device Security Team Lead ID Sodium Potassium Chloride Carbon Dioxide Anion Gap BUN Creatinine GFR Calculation Glucose POC Glucose 196 H 219 H 227 H Calculated Osmolal ity Calcium Total Bilirubin AST ALT Alkaline Phosphata se Total Protein Albumin Globulin SARS-CoV-2 Ag (Rap id) 11/27/20 11/27/20 11/27/20 17:25 17:22 16:50 WBC RBC Hgb Hct MCV MCH MCHC RDW Plt Count MPV Neut % (Auto) Lymph % (Auto) [place] % (Auto) Eos % (Auto) Baso % (Auto) Neut # (Auto) Lymph # (Auto) [place] # (Auto) Eos # (Auto) Baso # (Auto) Nucleated RBC % (a uto) Nucleated RBCs # Specimen Type Arterial Sample Site Brachial, right ABG pH 7.24 L ABG pCO2 25.8 L ABG pO2 104.0 H ABG HCO3 11.0 L ABG O2 Saturation ABG Base Excess -14.4 L Hasmukh Test Pos A-a O2 Gradient Hematocrit 53.6 H Hgb O2 Saturation Carboxyhemoglobin Methemoglobin Total Hemoglobin Ionized Calcium O2 Delivery Device Room air Security Team Lead ID jmn Sodium 135 L Potassium 5.1 Chloride Carbon Dioxide 10 L Anion Gap 27.1 H BUN Creatinine GFR Calculation Glucose 247 H POC Glucose Calculated Osmolal ity Calcium 8.0 L Total Bilirubin AST 21 ALT Alkaline Phosphata se Total Protein Albumin Globulin SARS-CoV-2 Ag (Rap id) Negative Vitals: Last Vital Signs Temp 97.8 F 11/28/20 07:00 Pulse 116 H 11/28/20 14:00 Resp 12 11/28/20 14:00 BP 116/68 11/28/20 14:00 Pulse Ox 96 11/28/20 14:00 Discharge Plan Discharge Patient Disposition: Home Condition: Stable Prescriptions: Continued insulin aspart U-100 [Novolog Flexpen U-100 Insulin] 100 unit/mL (3 mL) insulin pen See Protocol unit SUBCUT QAM Qty: 15 RF: 0 promethazine 25 mg tablet 25 mg PO Q8H PRN (Reason: NAUSEA/VOMITING) RF: 0 Changed Lantus U-100 Insulin 100 unit/mL solution 20 unit SUBCUT BID Qty: 10 RF: 0 No Action (DME) Dexcom G6 Clinical Psychologist Misc See Rx Instructions .ROUTE .MEDSUPPLY Qty: 1 RF: 0 (DME) Dexcom G6 Sensor Device See Rx Instructions .ROUTE .MEDSUPPLY Qty: 3 RF: 3 (DME) Dexcom G6 Transmitter Device See Rx Instructions .ROUTE .MEDSUPPLY Qty: 3 RF: 3 (DME) Omnipod Dash 5 Pack Pod Cartridge SUBCUT RF: 0 Discharge Orders: Discharge Order (Routine); Ordered 11/28/20 Ordered By: Xiomara Arevalo Referrals: Evelin Metz MD [Physician] - 2 weeks (FOLLOW UP FOR THIS APPOINTMENT . [facility] [phone] SCHEDULED FOR THE FOLLOWING DATE OF DECEMBER 09, 2020 FOR TIME OF 2:00 PM ) Discharge Diet: Diabetic Discharge Activity: Resume usual activity Discharge Attestations Time Spent in Discharge Care*: greater than 30 min Status at Discharge: Cognitive status at discharge: cognitively intact , Behavioral status at discharge: cooperative , Quality Metrics Clinical Quality Measures During this hospital stay, did patient experience: None Coding Level of Care Code Acute Chg FW DC note Diagnoses Diabetic ketoacidosis E11.10
--- NOTE | 2020-11-28 19:53 | PC.NURSE ---
Patient taken by wheelchair to ED exit for discharge to mothers car at 1946. Patient's IV was removed by previous shift, all personal belongings with patient upon discharge of hospital.
== END 2020-11-28 19:46 | disposition home or self-care (01) | DRG 639 ==
LOC: ER 14:19 → ICU 15:21
PROVIDERS: Admitting Provider Student in an Organized Health Care Education/Training Program; Emergency Provider Emergency Medicine; PCP Nurse Practitioner Family; Visit Provider Student in an Organized Health Care Education/Training Program
DX: E10.10 Type 1 diabetes mellitus with ketoacidosis without coma (principal); E86.0 Dehydration; K21.9 Gastro-esophageal reflux disease without esophagitis; F12.90 Cannabis use, unspecified, uncomplicated; Z87.891 Personal history of nicotine dependence
CPT/HCPCS: 36415; 36416; 36600; 80051; 80053; 80307; 81001; 82009; 82330; 82803; 82805; 82962; 83605; 83690; 83735; 85025; 87426; 96372; J1815 ×2; J2405; J3490; J7030; J7050

== ENCOUNTER 2021-01-20 07:10 | Inpatient (IN) | payer MEDICARE, MEDICAID, SELFPAY ==
[2021-01-20] VITALS (55 sets, daily range): BP systolic 88–129; BP diastolic 45–84; PULSE 99–143; RESP 15–46; TEMP 36.7; O2SAT 94–100
--- NOTE | 2021-01-20 07:18 | ECG_ITS ---
[facility] Test Date: 2021-01-20 Pat Name: Salvatore Ott Department: Room: [facility] Gender: Male Operator Receptionist: : 1995 Requested By: Epifanio Pozo Order Number: [id number] Kim MD: Macey Rogers M.D. Measurements Intervals [place] Rate: 131 P: 76 ND: 123 QRS: 73 QRSD: 88 T: 35 QT: 291 QTc: 431 Interpretive Statements SINUS TACHYCARDIA ABNORMAL RHYTHM ECG Compared to ECG 11/07/2020 15:03:36 Sinus rhythm no longer present Short ND interval no longer present Electronically Signed On 01-21-2021 6:53:28 CDT by Macey Rogers M.D. [id number]
[2021-01-20 07:33] LABS: Arterial Blood Gas Hematocrit 58.2 % (42-52); Base Excess ABG -24.5 mmol/L (-2.0-2.0); Blood Gas Allen Test Pos; Blood Gas Sample Type Arterial; Carboxyhemoglobin 0.1 %THgb (0.4-20.1); HCO3 ABG 2.5 mmol/L (22-26); HGB O2 Sat 96.1 % (95-100); Ionized Calcium Level - ABG 1.2 mmol/L (1.1-1.4); Oxygen Saturation ABG 97.1; Potassium Level - ABG 6.5 mmol/L (3.5-5.0)
[2021-01-20 07:34] LABS: ABG PCO2 8.3 mmHg (35-45); ABG PH Result 7.08 (7.35-7.45); Blood Gas Operator Identificat MONRO; Blood Gas Sample Site Brachial, left; Oxygen Device ROOM AIR
[2021-01-20] MEDS: LORazepam 2 mg/mL INJ 1 mL IVP ×3 (07:55→08:18)
[2021-01-20 08:17] LABS: Basophils # 0.1 10^3/uL (0.0-0.1); Basophils % 0.8 %; Eosinophils % 0.1 %; Hemoglobin 17.7 g/dL (11.7-16.6); Lymphocytes # 1.2 10^3/uL (0.8-4.8); Lymphocytes % 8.9 %; Mean Corpuscular HGB Conc 32.2 g/dL (30.0-36.0); Mean Corpuscular Hemoglobin 32.3 pg (28.0-34.0); Mean Corpuscular Volume 100.4 fL (80-94); Mean Platelet Volume 10.4 fL (7.4-10.4); Monocytes # 0.2 10^3/uL (0.2-0.9); Monocytes % 1.5 %; Neutrophils # 11.36 10^3/uL (1.8-7.7); Neutrophils % 86.7 %; Nucleated Red Blood Cells % 0 %; Platelet Count 393 10^3/cmm (130-400); Red Blood Count 5.48 10^6/uL (4.1-5.3); Red Cell Distribution Width 12.2 % (12.1-15.1); White Blood Count 13.1 10^3/uL (4.0-10.0)
--- NOTE | 2021-01-20 08:20 | ED_ITS ---
HPI - Altered Mental Status General: Chief Complaint: Altered Mental Status Stated Complaint: DKA/ HYPERGLYCEMIA Time Seen by Provider: 01/20/21 07:11 History of Present Illness: HPI narrative: 25-year-old male who is well-known to our ER. He was found unresponsive this morning and is in acute DKA. He is combative on arrival here in with delirium secondary to his DKA. He has had this multiple times in the past. He is highly noncompliant with his diabetes. Evidently per family report he began to not feel well last night. PFSH ED PFSH: Medical History Diabetes mellitus Type I GERD (gastroesophageal reflux disease) Hyperglycemia Marijuana use Pancreatitis Type 1 diabetes Surgical History No pertinent past surgical history Family History Other Diabetes Social History Smoking and tobacco status: former smoker Alcohol intake: never Household members: family Housing: House Course Vital Signs: Vital signs: Vital Signs Pulse Rate 137 H 01/20/21 07:11 Respiratory Rate 25 H 01/20/21 07:11 Blood Pressure 120/72 01/20/21 07:11 MDM - Altered Mental Status Lab Data: Labs: Lab Results 01/20/21 Range/Units 07:22 Specimen Type Arterial Sample Site Brachial, left ABG pH 7.08 L* (7.35-7.45) ABG pCO2 8.3 L* (35-45) mmHg ABG pO2 156.0 H (80.0-100.0) mmH g ABG HCO3 2.5 L (22-26) mmol/L ABG O2 Saturation 97.1 ABG Base Excess -24.5 L (-2.0-2.0) mmol/ L Hasmukh Test Pos A-a O2 Gradient Not Reportable Hematocrit 58.2 H (42-52) % Hgb O2 Saturation 96.1 (95-100) % Carboxyhemoglobin 0.1 L (0.4-20.1) %THgb Methemoglobin 1.0 (0.4-1.5) % Total Hemoglobin 19.0 H (14-18) g/dL Sodium 135.0 (131-143) mmol/L Potassium 6.5 H (3.5-5.0) mmol/L Glucose 944.0 H (70-115) mg/dL Ionized Calcium 1.2 (1.1-1.4) mmol/L O2 Delivery Device Room air FiO2 21.0 % Logging Rafter Laborer ID Boo Discharge Plan Discharge Prescriptions: No Action (DME) Dexcom G6 Cartridge Filler Misc See Rx Instructions .ROUTE .MEDSUPPLY Qty: 1 RF: 0 (DME) Dexcom G6 Sensor Device See Rx Instructions .ROUTE .MEDSUPPLY Qty: 3 RF: 3 (DME) Dexcom G6 Transmitter Device See Rx Instructions .ROUTE .MEDSUPPLY Qty: 3 RF: 3 insulin aspart U-100 [Novolog Flexpen U-100 Insulin] 100 unit/mL (3 mL) insulin pen See Protocol unit SUBCUT QAM Qty: 15 RF: 0 Lantus U-100 Insulin 100 unit/mL solution 20 unit SUBCUT BID Qty: 10 RF: 0 (DME) Omnipod Dash 5 Pack Pod Cartridge SUBCUT RF: 0 promethazine 25 mg tablet 25 mg PO Q8H PRN (Reason: NAUSEA/VOMITING) RF: 0 Coding Level of Care Code ED Property Management Specialist for Chg Fwd Face to Face: Restrn/Seclusion Events leading up to initiation: Combative/Striking out at staff or others (Patient in DKA with acute delirium. He is unable to comply and we are unable to get IV access. Patient was physically restrained and placed in soft restraints as well as being given Ativan so that a central line could be placed for resuscitation purposes.) Evaluation of patient's immediate situation: Signs of physical distress Patient reaction since intervention applied: Behaviors/threats have lessened, but still present Recent labs reviewed: Yes Review of medications: Yes Patient's current medical/behavioral condition: No new concerns since last ROS Need for restraint or seclusion is: Continued Attending notified: Yes
[2021-01-20] MEDS: ondansetron 2 mg/ML SDV 2 mL 4 MG IVP (08:25)
[2021-01-20] MEDS: sodium chloride 0.9% 1,000 ML 999 ML IV ×3 (08:25→09:38)
--- NOTE | 2021-01-20 08:30 | W.ED.GENADLT ---
HPI - General Adult General: Chief complaint: Altered Mental Status Stated complaint: DKA/ HYPERGLYCEMIA Time Seen by Provider: 01/20/21 07:11 History of Present Illness: HPI narrative: 25-year-old male who is well-known to our ER. He was found unresponsive this morning and is in acute DKA. He is combative on arrival here in with delirium secondary to his DKA. He has had this multiple times in the past. He is highly noncompliant with his diabetes. Evidently per family report he began to not feel well last night. Onset (ago): hour(s) Severity: severe Associated symptoms: Reports confusion, diaphoresis, dyspnea, malaise, nausea, short of breath and vomiting; Deny chest pain, cough, decreased appetite, fevers/chills, headache(s), rash, seizures or weakness Treatments prior to arrival: none Review of Systems General: Reports: ROS unobtainable due to medical condition and ROS unobtainable due to mental status Const: Reports: malaise and diaphoresis Card: Denies: chest pain Resp: Reports: dyspnea GI: Reports: nausea and vomiting Skin/Breast: Denies: rash Neuro: Reports: confusion; Denies: headache(s) PFSH ED PFSH: Medical History Diabetes mellitus Type I GERD (gastroesophageal reflux disease) Hyperglycemia Marijuana use Pancreatitis Type 1 diabetes Surgical History No pertinent past surgical history Family History Other Diabetes Social History Smoking and tobacco status: former smoker Alcohol intake: never Household members: friend(s) Housing: House Physical Exam HENMT: COMMON NORMALS: normocephalic, atraumatic and hearing grossly normal bilaterally HEAD & SCALP: normocephalic and atraumatic Neck/C-Spine: COMMON NORMALS: full ROM, no lymphadenopathy, supple and no JVD Lymph: LYMPHATIC: no lymphadenopathy noted and no lymphedema noted Resp: COMMON NORMALS: normal respiratory effort, No retractions, No use of accessory muscles and clear to auscultation bilaterally AUSCULTATION: clear to auscultation bilaterally Cardio: COMMON NORMALS: no JVD, regular rate, regular rhythm and No murmurs present (Cardio) RATE: regular rate RHYTHM: regular rhythm GI: COMMON NORMALS: Soft to palpation and No hepatosplenomegaly present AUSCULTATION: Yes normoactive bowel sounds PALPATION: Yes Soft to palpation, No Tenderness to palpation present (GI), No Guarding due to palpation present (GI) and Yes No hepatosplenomegaly present Extremity: COMMON NORMALS: normal to inspection, capillary refill normal, no clubbing, cyanosis or edema, no calf tenderness and no pedal edema Skin: COMMON NORMALS: no rashes or lesions noted GENERAL SKIN EXAM: no rashes or lesions noted Procedures Central Line Placement Right SC: Time Out Performed: Yes Patient Placed on Monitor/Pulse Ox: Yes MD Prep: mask, gown and gloves Central Line Prep: Chlorhexidine scrub and sterile drapes applied Local Anesthetic: lidocaine 1% Amount of anesthesia used (mL): 4 Ultrasound Used for Placement: Yes Complications: other (Patient was delirious and combative. We are unable to place a subclavian central line due to his behavior.) Additional Comments: Reattempted central line right femoral vein see note. Right Femoral: Time Out Performed: Yes Patient Placed on Monitor/Pulse Ox: Yes MD Prep: mask and gloves Central Line Prep: Chlorhexidine scrub and sterile drapes applied Local Anesthetic: lidocaine 1% Amount of anesthesia used (mL): 5 Ultrasound Used for Placement: Yes Central Line Lumen Inserted: triple Post Procedure: sutured in place, good blood return, all ports aspirated, flushed, capped and sterile dressing applied Complications: none Course Vital Signs: Vital signs: Vital Signs Temperature 97.7 F 01/22/21 11:51 Pulse Rate 97 01/22/21 11:51 Respiratory Rate 15 01/22/21 11:51 Blood Pressure 113/77 01/22/21 11:51 Pulse Oximetry 99 01/22/21 11:51 MDM - General Adult MDM Narrative: Medical decision making narrative: Acute DKA with significant acidosis and anion gap. Central line placed due to the extreme difficulty with peripheral IV access. Discussed with Dr. Randall will admit to ICU. Lab Data: Labs: Lab Results 01/20/21 01/20/21 01/20/21 Range/Units 07:22 08:08 08:08 WBC 13.1 H (4.0-10.0) 10^3/ uL RBC 5.48 H (4.1-5.3) 10^6/u L Hgb 17.7 H (11.7-16.6) g/dL Hct 55.0 H (42.0-52.0) % MCV 100.4 H (80-94) fL MCH 32.3 (28.0-34.0) pg MCHC 32.2 (30.0-36.0) g/dL RDW 12.2 (12.1-15.1) % Plt Count 393 (130-400) 10^3/c mm MPV 10.4 (7.4-10.4) fL Neut % (Auto) 86.7 % Lymph % (Auto) 8.9 % [place] % (Auto) 1.5 % Eos % (Auto) 0.1 % Baso % (Auto) 0.8 % Neut # (Auto) 11.36 H (1.8-7.7) 10^3/u L Lymph # (Auto) 1.2 (0.8-4.8) 10^3/u L [place] # (Auto) 0.2 (0.2-0.9) 10^3/u L Eos # (Auto) 0.0 (0.0-0.8) 10^3/u L Baso # (Auto) 0.1 (0.0-0.1) 10^3/u L Nucleated RBC % (a uto) 0 % Nucleated RBCs # 0.0 /100WBC Specimen Type Arterial Sample Site Brachial, left ABG pH 7.08 L* (7.35-7.45) ABG pCO2 8.3 L* (35-45) mmHg ABG pO2 156.0 H (80.0-100.0) mmH g ABG HCO3 2.5 L (22-26) mmol/L ABG O2 Saturation 97.1 ABG Base Excess -24.5 L (-2.0-2.0) mmol/ L Hasmukh Test Pos A-a O2 Gradient Not Reportable Hematocrit 58.2 H (42-52) % Hgb O2 Saturation 96.1 (95-100) % Carboxyhemoglobin 0.1 L (0.4-20.1) %THgb Methemoglobin 1.0 (0.4-1.5) % Total Hemoglobin 19.0 H (14-18) g/dL Sodium 135.0 136 (131-143) mmol/L Potassium 6.5 H 5.3 H (3.5-5.0) mmol/L Glucose 944.0 H 955 H* (70-115) mg/dL Ionized Calcium 1.2 (1.1-1.4) mmol/L O2 Delivery Device Room air FiO2 21.0 % Final Canoe Inspector ID [place]ro Chloride 85 L (98-107) mmol/L Carbon Dioxide 4 L* (22-29) mmol/L Anion Gap 52.3 H (5-19) BUN 35 H (6-20) mg/dL Creatinine 1.8 H (0.7-1.2) mg/dL GFR Calculation 47.0 L (90-130) mL/min POC Glucose (70-110) mg/dL Calculated Osmolal ity 338 H (285-295) mOsm/k g Lactic Acid (0.5-2.2) mmol/L Calcium 8.8 (8.5-10.5) mg/dL Magnesium 2.6 H (1.7-2.3) mg/dL Total Bilirubin 0.3 (0.15-1.2) mg/dL AST 16 (0-40) U/L ALT 23 (0-41) U/L Alkaline Phosphata se 76 (40-130) IU/L Creatine Kinase 50 (39-308) U/L Total Protein 7.9 (6.6-8.7) g/dL Albumin 4.6 (3.5-5.2) g/dL Globulin 3.3 (1.3-4.6) g/dL Lipase 354 H (13-60) U/L Urine Color (Yellow) Urine Appearance (CLEAR) Urine pH (5-7) Ur Specific Gravit y (1.005-1.030) Urine Protein (Negative) Urine Glucose (UA) (Normal) Urine Ketones (Negative) Urine Blood (Negative) Urine Nitrate (Negative) Urine Bilirubin (Negative) Urine Urobilinogen (Negative) mg/dL Ur Leukocyte Mini ase (Negative) Urine RBC (0-2) /hpf Urine WBC (0-5) /hpf Ur Squamous Epith Cells (0-5) /hpf Amorphous Sediment Urine Bacteria (NONE) /hpf Urine Mucus /hpf Urine Opiates Scre en (Negative) ng/mL Ur Barbiturates Sc reen (Negative) ng/mL Ur Phencyclidine S crn (Negative) ng/mL Ur Amphetamines Sc reen (Negative) ng/mL U Benzodiazepines Scrn (Negative) ng/mL Urine Cocaine Scre en (Negative) ng/mL U Marijuana (THC) Screen (Negative) ng/mL Serum Ketones (Negative) 01/20/21 01/20/21 01/20/21 Range/Units 08:08 08:08 08:55 WBC (4.0-10.0) 10^3/ uL RBC (4.1-5.3) 10^6/u L Hgb (11.7-16.6) g/dL Hct (42.0-52.0) % MCV (80-94) fL MCH (28.0-34.0) pg MCHC (30.0-36.0) g/dL RDW (12.1-15.1) % Plt Count (130-400) 10^3/c mm MPV (7.4-10.4) fL Neut % (Auto) % Lymph % (Auto) % [place] % (Auto) % Eos % (Auto) % Baso % (Auto) % Neut # (Auto) (1.8-7.7) 10^3/u L Lymph # (Auto) (0.8-4.8) 10^3/u L [place] # (Auto) (0.2-0.9) 10^3/u L Eos # (Auto) (0.0-0.8) 10^3/u L Baso # (Auto) (0.0-0.1) 10^3/u L Nucleated RBC % (a uto) % Nucleated RBCs # /100WBC Specimen Type Sample Site ABG pH (7.35-7.45) ABG pCO2 (35-45) mmHg ABG pO2 (80.0-100.0) mmH g ABG HCO3 (22-26) mmol/L ABG O2 Saturation ABG Base Excess (-2.0-2.0) mmol/ L Hasmukh Test A-a O2 Gradient Hematocrit (42-52) % Hgb O2 Saturation (95-100) % Carboxyhemoglobin (0.4-20.1) %THgb Methemoglobin (0.4-1.5) % Total Hemoglobin (14-18) g/dL Sodium (131-143) mmol/L Potassium (3.5-5.0) mmol/L Glucose (70-115) mg/dL Ionized Calcium (1.1-1.4) mmol/L O2 Delivery Device FiO2 % Final Canoe Inspector ID Chloride (98-107) mmol/L Carbon Dioxide (22-29) mmol/L Anion Gap (5-19) BUN (6-20) mg/dL Creatinine (0.7-1.2) mg/dL GFR Calculation (90-130) mL/min POC Glucose > 600 H* (70-110) mg/dL Calculated Osmolal ity (285-295) mOsm/k g Lactic Acid 9.4 H* (0.5-2.2) mmol/L Calcium (8.5-10.5) mg/dL Magnesium (1.7-2.3) mg/dL Total Bilirubin (0.15-1.2) mg/dL AST (0-40) U/L ALT (0-41) U/L Alkaline Phosphata se (40-130) IU/L Creatine Kinase (39-308) U/L Total Protein (6.6-8.7) g/dL Albumin (3.5-5.2) g/dL Globulin (1.3-4.6) g/dL Lipase (13-60) U/L Urine Color (Yellow) Urine Appearance (CLEAR) Urine pH (5-7) Ur Specific Gravit y (1.005-1.030) Urine Protein (Negative) Urine Glucose (UA) (Normal) Urine Ketones (Negative) Urine Blood (Negative) Urine Nitrate (Negative) Urine Bilirubin (Negative) Urine Urobilinogen (Negative) mg/dL Ur Leukocyte Mini ase (Negative) Urine RBC (0-2) /hpf Urine WBC (0-5) /hpf Ur Squamous Epith Cells (0-5) /hpf Amorphous Sediment Urine Bacteria (NONE) /hpf Urine Mucus /hpf Urine Opiates Scre en (Negative) ng/mL Ur Barbiturates Sc reen (Negative) ng/mL Ur Phencyclidine S crn (Negative) ng/mL Ur Amphetamines Sc reen (Negative) ng/mL U Benzodiazepines Scrn (Negative) ng/mL Urine Cocaine Scre en (Negative) ng/mL U Marijuana (THC) Screen (Negative) ng/mL Serum Ketones Positive H (Negative) 01/20/21 01/20/21 Range/Units 08:56 08:56 WBC (4.0-10.0) 10^3/ uL RBC (4.1-5.3) 10^6/u L Hgb (11.7-16.6) g/dL Hct (42.0-52.0) % MCV (80-94) fL MCH (28.0-34.0) pg MCHC (30.0-36.0) g/dL RDW (12.1-15.1) % Plt Count (130-400) 10^3/c mm MPV (7.4-10.4) fL Neut % (Auto) % Lymph % (Auto) % [place] % (Auto) % Eos % (Auto) % Baso % (Auto) % Neut # (Auto) (1.8-7.7) 10^3/u L Lymph # (Auto) (0.8-4.8) 10^3/u L [place] # (Auto) (0.2-0.9) 10^3/u L Eos # (Auto) (0.0-0.8) 10^3/u L Baso # (Auto) (0.0-0.1) 10^3/u L Nucleated RBC % (a uto) % Nucleated RBCs # /100WBC Specimen Type Sample Site ABG pH (7.35-7.45) ABG pCO2 (35-45) mmHg ABG pO2 (80.0-100.0) mmH g ABG HCO3 (22-26) mmol/L ABG O2 Saturation ABG Base Excess (-2.0-2.0) mmol/ L Hasmukh Test A-a O2 Gradient Hematocrit (42-52) % Hgb O2 Saturation (95-100) % Carboxyhemoglobin (0.4-20.1) %THgb Methemoglobin (0.4-1.5) % Total Hemoglobin (14-18) g/dL Sodium (131-143) mmol/L Potassium (3.5-5.0) mmol/L Glucose (70-115) mg/dL Ionized Calcium (1.1-1.4) mmol/L O2 Delivery Device FiO2 % Final Canoe Inspector ID Chloride (98-107) mmol/L Carbon Dioxide (22-29) mmol/L Anion Gap (5-19) BUN (6-20) mg/dL Creatinine (0.7-1.2) mg/dL GFR Calculation (90-130) mL/min POC Glucose (70-110) mg/dL Calculated Osmolal ity (285-295) mOsm/k g Lactic Acid (0.5-2.2) mmol/L Calcium (8.5-10.5) mg/dL Magnesium (1.7-2.3) mg/dL Total Bilirubin (0.15-1.2) mg/dL AST (0-40) U/L ALT (0-41) U/L Alkaline Phosphata se (40-130) IU/L Creatine Kinase (39-308) U/L Total Protein (6.6-8.7) g/dL Albumin (3.5-5.2) g/dL Globulin (1.3-4.6) g/dL Lipase (13-60) U/L Urine Color Straw (Yellow) Urine Appearance Clear (CLEAR) Urine pH 5 (5-7) Ur Specific Gravit y 1.020 (1.005-1.030) Urine Protein 1+ H (Negative) Urine Glucose (UA) 4+ H (Normal) Urine Ketones 3+ H (Negative) Urine Blood Neg (Negative) Urine Nitrate Negative (Negative) Urine Bilirubin Neg (Negative) Urine Urobilinogen Norm (Negative) mg/dL Ur Leukocyte Mini ase Negative (Negative) Urine RBC 0-4 H (0-2) /hpf Urine WBC Rare (0-5) /hpf Ur Squamous Epith Cells Rare (0-5) /hpf Amorphous Sediment Not Reportable Urine Bacteria Trace (NONE) /hpf Urine Mucus Trace /hpf Urine Opiates Scre en Negative (Negative) ng/mL Ur Barbiturates Sc reen Negative (Negative) ng/mL Ur Phencyclidine S crn Negative (Negative) ng/mL Ur Amphetamines Sc reen Negative (Negative) ng/mL U Benzodiazepines Scrn Negative (Negative) ng/mL Urine Cocaine Scre en Negative (Negative) ng/mL U Marijuana (THC) Screen Negative (Negative) ng/mL Serum Ketones (Negative) Discharge Plan Discharge Patient Disposition: Admitted As Inpatient Admit Provider: Terry Hines Clinical Impression: DKA (diabetic ketoacidoses), Uncontrolled type 1 diabetes mellitus, History of pancreatitis Condition: Stable 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
[2021-01-20 08:32] LABS: Ketone (Acetest) Serum Positive (Negative)
[2021-01-20 08:37] LABS: Alanine Aminotransferase 23 U/L (0-41); Albumin Level 4.6 g/dL (3.5-5.2); Alkaline Phosphatase 76 IU/L (40-130); Aspartate Amino Transferase 16 U/L (0-40); Blood Urea Nitrogen 35 mg/dL (6-20); Calcium 8.8 mg/dL (8.5-10.5); Chloride 85 mmol/L (98-107); Creatine Phosphokinase 50 U/L (39-308); Globulin 3.3 g/dL (1.3-4.6); Magnesium 2.6 mg/dL (1.7-2.3); Potassium 5.3 mmol/L (3.5-5.1); Sodium 136 mmol/L (136-145); Total Bilirubin 0.3 mg/dL (0.15-1.2); Total Protein 7.9 g/dL (6.6-8.7)
--- NOTE | 2021-01-20 08:38 | XRR_ITS ---
PROCEDURE INFORMATION: Exam: XR Chest Exam date and time: 01/20/2021 8:40 AM Age: 25 years old Clinical indication: Other: AMS; Additional info: Dyspnea/cough TECHNIQUE: Imaging protocol: XR of the chest. Views: 1 view. COMPARISON: CR XR chest 1V portable [id number] 11/07/2020 2:47 PM FINDINGS: Lungs: Unremarkable. No consolidation. Pleural spaces: Unremarkable. No pleural effusion. No pneumothorax. Heart/Mediastinum: Unremarkable. No cardiomegaly. Bones/joints: Unremarkable. XR/XR chest 1V portable [id number] IMPRESSION: No acute findings.
[2021-01-20 08:45] LABS: Osmolality Calculated 338 mOsm/kg (285-295)
[2021-01-20 08:50] LABS: Anion Gap 52.3 (5-19); Carbon Dioxide 4 mmol/L (22-29); Lactic Sepsis W/Reflex 9.4 mmol/L (0.5-2.2)
[2021-01-20 08:51] LABS: Glucose 955 mg/dL (65-115); Lipase 354 U/L (13-60)
--- NOTE | 2021-01-20 08:51 | XRR_ITS ---
PROCEDURE INFORMATION: Exam: XR Abdomen Exam date and time: 01/20/2021 9:10 AM Age: 25 years old Clinical indication: Device placement; Vascular catheter; Additional info: Femoral central line placement TECHNIQUE: Imaging protocol: XR of the abdomen. Views: Frontal supine view of the abdomen. 1 View. COMPARISON: CT abdomen pelvis w con* [id number] 11/07/2020 4:58 PM FINDINGS: Tubes, catheters and devices: A right femoral catheter is present with the tip projecting on the right side of the L3 vertebra which is probably in the projection of the inferior vena cava. Gastrointestinal tract: Normal. No bowel dilation. Bones/joints: Unremarkable. XR/XR KUB portable [id number] IMPRESSION: The tip of the right femoral catheter is present at the L3 level in the projection of the inferior vena cava.
[2021-01-20] MEDS: ceFAZolin 1,000 mg SDV 1000 MG IVP (08:57)
[2021-01-20] MEDS: insulin regular-human 250 UNIT in sodium chloride 0.9% 250 ML IV (09:07)
[2021-01-20] MEDS: insulin regular-human 100 units/1 mL 20 UNIT IVP (09:09)
[2021-01-20 09:25] LABS: Add Urine Microscopic? YES; Bilirubin Urine Neg (Negative); Blood Urine Neg (Negative); Glucose Urine UA 4+ (Normal); Ketones Urine 3+ (Negative); Leukocyte Esterase Urine Negative (Negative); Nitrate Urine Negative (Negative); Protein Urine 1+ (Negative); Urine Appearance Clear (CLEAR); Urine Color Straw (Yellow); Urobilinogen Urine Norm (Negative); pH Urine 5 (5-7)
--- NOTE | 2021-01-20 09:25 | P.HP_ITS ---
Providers/Chief Complaint Primary Care Provider: MARGE Castellano Chief Complaint: DKA/ HYPERGLYCEMIA History of Present Illness Salvatore Ott is a 25 year old male who presents from home via ambulance with altered mental status. From talking with the nurse, he apparently did not feel well yesterday and a conversation with his mother. When his mother could not get a hold of him today she called 911. Family is not present with him in the emergency department. Upon arrival he was very altered, agitated. He required restraints, Ativan IV, and placement of a right femoral line. He was found to be severely dehydrated and so far 2 L of isotonic saline have been given, 1 dose of Ancef with central line placement, and an insulin drip is being started. I was able to speak with his roommate who is listed as a contact in his chart. She reports that he was sleeping quite a bit yesterday. He had had an upset stomach the day before. She is not for sure if he taken any insulin but he did get a insulin last night that she administered with his mother. He has not had any recent fever, cough. He did have at least one period of emesis. Review of Systems General: Reports: ROS unobtainable due to mental status (Confused, consistent with acute encephalopathy) Medications/Allergies Home Medications Medication Instructions Recorded Confirmed Last Taken Type insulin pump cartridge [Omnipod 10/18/20 01/20/21 Unknown History Dash 5 Pack Pod] promethazine 25 mg PO Q8H PRN 11/07/20 01/20/21 11/07/20 History blood-glucose meter,continuous #1 ea 11/26/20 01/20/21 Unknown Rx blood-glucose sensor #3 ea 11/26/20 01/20/21 Unknown Rx blood-glucose transmitter #3 ea 11/26/20 01/20/21 Unknown Rx insulin aspart U-100 100 unit/mL See Protocol SUBCUT QAM #15 ml 12/12/20 01/20/21 Unknown Rx (3 mL) subcutaneous pen insulin glargine 100 unit/mL 20 unit SUBCUT BID #10 ml 12/12/20 01/20/21 Unknown Rx subcutaneous solution Allergies Allergy/AdvReac Type Severity Reaction Status Date / Time promethazine [From Phenergan] Allergy Unknown Verified 01/20/21 07:21 PFSH Acute PFSH: Medical History Diabetes mellitus Type I GERD (gastroesophageal reflux disease) Hyperglycemia Marijuana use Pancreatitis Type 1 diabetes Surgical History No pertinent past surgical history Family History Other Diabetes Social History Smoking and tobacco status: former smoker Alcohol intake: never Household members: family Housing: House Vitals/I&O/Wt Last Vital Signs Pulse 143 H 01/20/21 08:30 Resp 18 01/20/21 08:30 BP 94/62 01/20/21 08:30 Pulse Ox 99 01/20/21 08:30 Physical Exam Narrative: EXAM NARRATIVE: General exam is a tachypneic white male, who arouses briefly when stimulated. HEENT: Pupils equally round. Oropharynx with dry mucous membranes. Tongue midline. Neck is supple no lymphadenopathy or thyromegaly Cardiovascular tachycardic, no murmur Lungs clear Abdomen is soft, positive bowel sounds. No obvious organomegaly demonstrates Burger Extremities cap refill brisk. No cyanosis or clubbing Skin: Multiple areas of excoriation, shallow sores including umbilical area. No significant surrounding cellulitis. Neurologic: Confused, with decreased responsiveness. No obvious focal deficits. Data : 01/20/21 08:08 01/20/21 08:08 Micro: Microbiology 01/20/21 08:08 Blood Culture - Preliminary Blood SPECIMEN COLLECTED 01/20/21 08:08 Blood Culture - Preliminary Blood SPECIMEN COLLECTED Other data: ABG demonstrates a pH of 7.08, PCO2 8.3, PO2 156. Anion gap is 52 Calcium 8.8 Lactic acid 9.4 Magnesium 2.6 LFTs within normal limits Lipase 354 Urinalysis 3+ ketones, 0-4 reds and rare whites Positive serum ketones Chest x-ray per my read demonstrates no infiltrate. KUB per my read demonstrates a fair amount of stool. A&P Assessment and plan (1) DKA (diabetic ketoacidoses): Admission to ICU Rehydration with isotonic saline Initiate insulin drip Add potassium to saline for rehydration after 2 to 3 L bolus When blood sugar becomes less than 250, add D5 Close follow-up of electrolytes including potassium magnesium and phosphorus Consider initiating clear liquids as encephalopathy wanes, and DKA starts to resolve. Will not discontinue insulin drip until anion gap is closed. Status: Acute (2) Encephalopathy acute: Secondary to above. I expect this will resolve with treatment of his DKA. Ativan was given secondary to agitation. Hopefully as he becomes more alert it will not need to be redosed. One-on-one ordered, to prevent harm to patient secondary to agitation, confusion, right groin central line. Status: Acute Additional A&P Information Acute kidney failure. Should resolve with hydration. Elevated lipase. Overall minimal and may be consistent with his DKA and vomiting. Recheck in the morning. Doubt he has acute pancreatitis. Full Code. Lovenox for DVT prophylaxis. Attestations Medical Necessity Statement*: Will need greater than 2 midnight stay for evaluation and treatment of DKA with encephalopathy. Time Spent in Patient Care: Greater than 35 minutes Critical Care Time: The high probability of a clinically significant, sudden or life threatening deterioration of the patient's [acid-base, endocrine, renal] system(s) required my full and direct attention, intervention and personal management. The critical care time is as shown. 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
[2021-01-20 09:27] LABS: Add Urine Culture? No; Bacteria Urine TRACE /hpf; Mucus Urine TRACE /hpf; RBC Urine 0-4 /hpf (0-2); Squamous Epithelial Cell Urine RARE /hpf (0-5); WBC Urine RARE /hpf (0-5)
[2021-01-20] MEDS: lidocaine 1% 5 ML in potassium chloride premix 100 ML 25 ML IV (09:38)
[2021-01-20 10:11] LABS: Reflex Lactate Order REFLEX LACTIC ORDERD
--- NOTE | 2021-01-20 10:20 | PC.NURSE ---
Patients pupils were noted to be unequal and reactive. Dr. Hines aware
[2021-01-20 10:23] LABS: Glucose Point of Care > 600 mg/dL (70-110)
[2021-01-20 10:23] LABS: Glucose Point of Care > 600 mg/dL (70-110)
[2021-01-20 10:36] LABS: Amphetamines Screen Urine Negative (Negative); Barbiturates Screen Urine Negative (Negative); Benzodiazepines Screen Urine Negative (Negative); Cocaine Screen Urine Negative (Negative); Opiate Screen Urine Negative (Negative); PCP Screen Urine Negative (Negative); THC Screen Urine Negative (Negative)
--- NOTE | 2021-01-20 10:46 | PC.NURSE ---
Patient was brought to unit at 1015 via bed from ER. Insulin drip was running at 5 units per hour. Patient is able to respond to verbal commands but not every time. He was able to tell me his name and birthday and did not respond to further questions. Scabs were noted all over patients body in different stages of healing. Blood sugar at [address] Hines was called and gave verbal order to continue insulin drip at 5 units per hour and wait to blood work to be completed. Lab in room now. Patients belongings are in room.
[2021-01-20 11:18] LABS: Anion Gap 34.6 (5-19); Blood Urea Nitrogen 33 mg/dL (6-20); Calcium 7.5 mg/dL (8.5-10.5); Chloride 105 mmol/L (98-107); Glomerular Filtration Rate 62.8 mL/min (90-130); Magnesium 2.6 mg/dL (1.7-2.3); Osmolality Calculated 329 mOsm/kg (285-295); Potassium 4.6 mmol/L (3.5-5.1); Sodium 142 mmol/L (136-145)
[2021-01-20 11:21] LABS: Lactic Acid level (Lactate) 4.1 mmol/L (0.5-2.2)
[2021-01-20 11:22] LABS: Carbon Dioxide 7 mmol/L (22-29); Glucose 599 mg/dL (65-115)
[2021-01-20 12:48] LABS: Glucose Point of Care 474 mg/dL (70-110)
[2021-01-20] MEDS: famotidine 20 mg/2 mL INJ IVP ×2 (13:07→23:40)
[2021-01-20] MEDS: sodium chlor 0.9% + KCl 20 mEq 20 MEQ/1,000 ML BAG 150 MEQ IV (13:07)
[2021-01-20] MEDS: enoxaparin 40 mg/0.4 mL Syringe SUBCUT (13:07)
--- NOTE | 2021-01-20 13:43 | PC.NURSE ---
Patient is now alert and oriented to person, place, time, and situation. soft wrist restraints removed.
[2021-01-20 15:35] LABS: Glucose Point of Care 343 mg/dL (70-110)
[2021-01-20 15:35] LABS: Glucose Point of Care 410 mg/dL (70-110)
[2021-01-20 15:35] LABS: Glucose Point of Care > 600 mg/dL (70-110)
[2021-01-20 15:35] LABS: Glucose Point of Care 344 mg/dL (70-110)
[2021-01-20 15:51] LABS: Anion Gap 26.9 (5-19); Blood Urea Nitrogen 26 mg/dL (6-20); Calcium 8.2 mg/dL (8.5-10.5); Carbon Dioxide 14 mmol/L (22-29); Chloride 113 mmol/L (98-107); Glucose 272 mg/dL (65-115); Osmolality Calculated 322 mOsm/kg (285-295); Potassium 4.9 mmol/L (3.5-5.1); Sodium 149 mmol/L (136-145)
[2021-01-20] MEDS: dextrose 5%-ns + KCl 20 20 MEQ/1,000 ML BAG 125 MEQ IV (16:45)
--- NOTE | 2021-01-20 16:52 | PC.NURSE ---
NS fluids stopped and D5 started per doctors order.
[2021-01-20 18:30] LABS: Glucose Point of Care 203 mg/dL (70-110)
[2021-01-20 18:30] LABS: Glucose Point of Care 206 mg/dL (70-110)
[2021-01-20 18:30] LABS: Glucose Point of Care 229 mg/dL (70-110)
[2021-01-20 19:44] LABS: Glucose Point of Care 160 mg/dL (70-110)
--- NOTE | 2021-01-20 19:55 | PC.NURSE ---
ASSUMING CARE 1900 Patient is resting in bed asleep on RA. D5NS with 20K running at 125 mL/hour and insulin drip running at 9 units/hour. Next blood sugar at 1930. Patient woken up by nurse and states that he is in the hospital and is oriented. Right femoral CVL in place. Burger catheter in place and draining.
[2021-01-20 20:36] LABS: Glucose Point of Care 153 mg/dL (70-110)
[2021-01-20 21:33] LABS: Glucose Point of Care 137 mg/dL (70-110)
[2021-01-20 22:35] LABS: Glucose Point of Care 119 mg/dL (70-110)
[2021-01-20 23:40] LABS: Glucose Point of Care 109 mg/dL (70-110)
[2021-01-20 23:51] LABS: Blood Urea Nitrogen 20 mg/dL (6-20); Calcium 8.1 mg/dL (8.5-10.5); Carbon Dioxide 19 mmol/L (22-29); Chloride 119 mmol/L (98-107); Glomerular Filtration Rate 119.8 mL/min (90-130); Glucose 92 mg/dL (65-115); Magnesium 2.4 mg/dL (1.7-2.3); Osmolality Calculated 314 mOsm/kg (285-295); Phosphorus 2.2 mg/dL (2.5-4.5); Sodium 151 mmol/L (136-145)
[2021-01-20 23:54] LABS: Anion Gap 16.9 (5-19); Potassium 3.9 mmol/L (3.5-5.1)
[2021-01-21] VITALS (66 sets, daily range): BP systolic 103–133; BP diastolic 62–94; PULSE 83–115; RESP 13–28; TEMP 36.3–36.9; O2SAT 80–100
[2021-01-21] MEDS: dextrose 5%-ns + KCl 20 20 MEQ/1,000 ML BAG 125 MEQ IV (00:32)
[2021-01-21 00:34] LABS: Glucose Point of Care 106 mg/dL (70-110)
[2021-01-21 01:36] LABS: Glucose Point of Care 94 mg/dL (70-110)
[2021-01-21 02:33] LABS: Glucose Point of Care 115 mg/dL (70-110)
[2021-01-21 03:32] LABS: Glucose Point of Care 134 mg/dL (70-110)
[2021-01-21 04:40] LABS: Glucose Point of Care 194 mg/dL (70-110)
--- NOTE | 2021-01-21 04:44 | PC.NURSE ---
BLOOD SUGAR Message to nurse order to increase insulin drip by 1 unit per hour for blood sugar above target range, decrease by 1 unit per hour for blood sugar within target range, and to call physician if drops below target range and to keep drip running at minimum of [address] Saenz called at 0150 to notify of blood sugar dropping to 94, told that drip was at 2 units/hour, and he instructed to go ahead and decrease to 1 unit per hour and recheck at 0230 scheduled time and notify him with results. 0230 sugar was 115, physician order to continue drip at 1 unit per hour and increase based on orders stated above and to notify of any additional blood sugars below target range (100-170).
[2021-01-21 04:59] LABS: Basophils % 0.2 %; Hematocrit 44.6 % (42.0-52.0); Hemoglobin 15.2 g/dL (11.7-16.6); Lymphocytes # 0.6 10^3/uL (0.8-4.8); Lymphocytes % 5.4 %; Mean Corpuscular HGB Conc 34.1 g/dL (30.0-36.0); Mean Corpuscular Hemoglobin 31.7 pg (28.0-34.0); Mean Corpuscular Volume 92.9 fL (80-94); Mean Platelet Volume 10.1 fL (7.4-10.4); Monocytes # 0.6 10^3/uL (0.2-0.9); Monocytes % 5.3 %; Neutrophils # 9.72 10^3/uL (1.8-7.7); Neutrophils % 88.8 %; Nucleated Red Blood Cells % 0 %; Platelet Count 226 10^3/cmm (130-400); Red Cell Distribution Width 12.1 % (12.1-15.1); White Blood Count 10.9 10^3/uL (4.0-10.0)
[2021-01-21 05:15] LABS: Alanine Aminotransferase 15 U/L (0-41); Albumin Level 3.7 g/dL (3.5-5.2); Alkaline Phosphatase 50 IU/L (40-130); Aspartate Amino Transferase 16 U/L (0-40); Blood Urea Nitrogen 21 mg/dL (6-20); Calcium 8.2 mg/dL (8.5-10.5); Carbon Dioxide 18 mmol/L (22-29); Chloride 119 mmol/L (98-107); Globulin 2.4 g/dL (1.3-4.6); Glomerular Filtration Rate 119.8 mL/min (90-130); Glucose 172 mg/dL (65-115); Osmolality Calculated 321 mOsm/kg (285-295); Sodium 152 mmol/L (136-145); Total Bilirubin 0.4 mg/dL (0.15-1.2); Total Protein 6.1 g/dL (6.6-8.7)
[2021-01-21 05:17] LABS: Magnesium 2.4 mg/dL (1.7-2.3)
[2021-01-21 05:21] LABS: Phosphorus 2.8 mg/dL (2.5-4.5)
[2021-01-21 05:29] LABS: Lipase 386 U/L (13-60)
[2021-01-21 05:39] LABS: Glucose Point of Care 219 mg/dL (70-110)
[2021-01-21 06:30] LABS: Glucose Point of Care 214 mg/dL (70-110)
--- NOTE | 2021-01-21 06:32 | PC.NURSE ---
SHIFT SUMMARY Patient has been asleep most of night, but he is much more alert this morning asking for water, brushing his teeth, and on his cellphone some. Patient is on room air. Last titration of insulin drip at 0627 to 4 units/hour. Next blood sugar at 0730. D5NS with 20 K running at 125 mL/hour. Spoke with patients mother twice last night to check on him and patient requesting that she bring his glasses during visitor hours.
[2021-01-21] MEDS: D5-NS 0.45% + KCL 20 mEq 20 MEQ/1,000 ML BAG 125 MEQ IV (07:50)
--- NOTE | 2021-01-21 08:38 | P.PN_ITS ---
Subjective Subjective: Interval history: Salvatore awakens easily and has no particular complaints. Medications: Reviewed: Yes Vitals/I&O/Wt Last Vital Signs Temp 98.1 F 01/21/21 07:00 Pulse 107 H 01/21/21 08:15 Resp 19 H 01/21/21 08:15 BP 103/72 01/21/21 08:15 Pulse Ox 99 01/21/21 08:15 01/20/21 01/21/21 01/21/21 22:59 06:59 14:59 Intake Total 620.250 / 2843.167 993.084 / 3836.251 Output Total 800 / 800 1525 / 2325 Balance -179.750 / 2043.167 -531.916 / 1511.251 Weight last 48 hrs Weight 57.969 kg Weight 57.2 kg Physical Exam Narrative: EXAM NARRATIVE: General exam is NAD, alert and oriented. Neck is supple no lymphadenopathy or thyromegaly Cardiovascular slight tachycardia, normal rhythm. No murmur Lungs clear Abdomen is soft, positive bowel sounds. No obvious organomegaly Extremities cap refill brisk. No cyanosis or clubbing Urinary Catheter Management^: Burger: Cath Placed During This Visit: yes Reason for Continuing Indwelling Catheter: Accurate Measurement of Urinary Output in Critically Ill Patients Urinary Catheter Date of Insertion: 01/20/21 Urinary Catheter Time of Insertion: 09:42 Data : 01/21/21 04:00 01/21/21 04:00 Micro: Microbiology 01/20/21 08:08 Blood Culture - Preliminary Blood NEGATIVE TO DATE 01/20/21 08:08 Blood Culture - Preliminary Blood NEGATIVE TO DATE A&P Assessment and plan (1) DKA (diabetic ketoacidoses): Continue insulin drip until gap is closed. Change IVF's to D5 1/2 NS with potassium at 125/hour Close follow-up of electrolytes including magnesium around noon. Hopefully at that time can convert to long acting insulin if gap is closed and patient is able to eat. Status: Acute (2) Encephalopathy acute: Resolved Status: Acute Additional A&P Information Acute kidney failure. Resolved with hydration. Elevated lipase. Overall minimal and may be consistent with his DKA and vomiting. Still slight elevation but patient without symptoms. No current evidence for pancreatitis. Full Code. Lovenox for DVT prophylaxis. Attestations Medical Necessity Statement*: Needs continued hospital stay for insulin drip secondary to DKA still needing insulin drip. Coding Level of Care Code Acute Security Consultant for g Fwd Diagnoses DKA (diabetic ketoacidoses) E11.10 Encephalopathy acute G93.40
[2021-01-21 10:16] LABS: Glucose Point of Care 204 mg/dL (70-110)
[2021-01-21 10:16] LABS: Glucose Point of Care 240 mg/dL (70-110)
[2021-01-21] MEDS: enoxaparin 40 mg/0.4 mL Syringe SUBCUT (10:30)
[2021-01-21] MEDS: famotidine 20 mg/2 mL INJ IVP ×2 (10:30→23:54)
--- NOTE | 2021-01-21 10:32 | PC.CHAP ---
Pastoral Care Encounter/Spiritual Assessment Type of Contact [] Declined spinning supervisor visit [] Patient/Family/Request visit [] Outpatient visit [] Follow-up visit [] Physician referral [] Code/Alert [x] Routine visit [] Staff referral [] Actively dying [] Patient sleeping [] Family support [] [] Out of room [] Palliative care [] [] Receiving care in room [] Pre-surgical visit [] Trauma [] Long length of stay [x] ICU visit [] Other: Relational/Emotional Strength [] Patient feels connected with others/family/visitors/staff [] Distress [] Loneliness/isolation [] Abandonment Spirituality of Patient [] Person of Emily [] Attends Jew of their Emily [] Believes in Prayer [] Reads Bible or Moravian materials [] There are Spiritual issues to be addressed Segmental Paver Installer Interventions [x] Prayer [x] Active listening [x] Non-anxious presence [x] Spiritual/emotional support [] Crisis/trauma care [] Spiritual counseling [] Bereavement support [] Provided bereavement packet [] Provided Bible/devotional materials [] Provided toy/stuffed animal, coloring book to patient or family member [] Provided Communion [] Anointing/[place] [] Salvation [x] Completed spiritual assessment [] Other: Impact on Illness or Injury [] Angry [] Fearful [] Anxious [] Often cries [] Exhaustion [] Unable to work [] Unable to attend yazidi [] Unable to walk/stand [] Unable to read [] Unable to drive [] Unable to eat/drink [] Unable to sleep [] Unable to be with family [] Patient intubated [] Other: Summary resting well Time spent with patient 10 min
[2021-01-21 11:14] LABS: Glucose Point of Care 161 mg/dL (70-110)
[2021-01-21 12:02] LABS: Glucose Point of Care 141 mg/dL (70-110)
[2021-01-21 12:59] LABS: Anion Gap 11.7 (5-19); Blood Urea Nitrogen 14 mg/dL (6-20); Calcium 8.1 mg/dL (8.5-10.5); Carbon Dioxide 23 mmol/L (22-29); Chloride 110 mmol/L (98-107); Glomerular Filtration Rate 206.1 mL/min (90-130); Glucose 129 mg/dL (65-115); Osmolality Calculated 294 mOsm/kg (285-295); Potassium 3.7 mmol/L (3.5-5.1); Sodium 141 mmol/L (136-145)
[2021-01-21 13:16] LABS: Glucose Point of Care 167 mg/dL (70-110)
[2021-01-21] MEDS: insulin glargine 100 units/1 mL 10 UNIT SUBCUT (13:56)
[2021-01-21] MEDS: sodium chlor 0.45% +KCl 20 mEq 20 MEQ/1,000 ML BAG 100 MEQ IV (14:23)
--- NOTE | 2021-01-21 15:09 | PC.NURSE ---
Transitioning to subcutaeneous insulin. New orders received for lantus. Per Dr al give lantus and wait 30 minutes before discontinuing the IV insulin and D5W to provide overlap coverage.
[2021-01-21 15:11] LABS: Glucose Point of Care 287 mg/dL (70-110)
[2021-01-21 15:11] LABS: Glucose Point of Care 153 mg/dL (70-110)
--- NOTE | 2021-01-21 15:13 | PC.NURSE ---
Nurse rechecked blood sugar 30 minutes after stopping the insulin drip and D5W. Now 287. Nurse alerted Dr al. received orders to give 4 units of novolog one time, now.
--- NOTE | 2021-01-21 15:53 | PC.NURSE ---
REmoved Urinary Catheter. 10 cc fluid removed form baloon. Catheter intact. Pt voided after removal..
[2021-01-21 16:53] LABS: Glucose Point of Care 261 mg/dL (70-110)
[2021-01-21] MEDS: insulin glargine 100 units/1 mL 20 UNIT SUBCUT (17:45)
--- NOTE | 2021-01-21 18:52 | PC.NURSE ---
SHift SUmmary: Patient progressed well today. Is now off of the insulin drip. Burger has been removed, and femoral line has been removed. Vitals remained within normal limits. Pt has no complaints at this time.
--- NOTE | 2021-01-21 20:14 | PC.NURSE ---
ASSUMING CARE Bedside report done with RIKI Tran. Patients mother is at bedside with him. Patient is on room air and is alert and oriented x 4. After nurses left room, they observed patient crying and expressing frustration towards his mother and was wanting to go home. Nurse overheard patients mother tell him he needed to stay because he was sick. Patient has 0.45% NS with 20 KCL running at 100 mL/hour.
--- NOTE | 2021-01-21 20:17 | PC.NURSE ---
MOTHER CALLED Patient used his call light and asked nurse for a snack. Nurse took him chicken noodle soup and diet sprite per his request. Patients mother called approximately 5 minutes later requesting that nurse take Salvatore a snack and that he didnt like asking nurses for anything. Mother was told that he had already been taken a snack and had used his call light to ask nurse.
[2021-01-22] VITALS (9 sets, daily range): BP systolic 100–122; BP diastolic 62–85; PULSE 80–117; RESP 14–34; TEMP 36.5–37; O2SAT 94–100
[2021-01-22] MEDS: sodium chlor 0.45% +KCl 20 mEq 20 MEQ/1,000 ML BAG 100 MEQ IV (01:54)
[2021-01-22 05:09] LABS: Basophils % 0.4 %; Eosinophils % 0.4 %; Hematocrit 42.9 % (42.0-52.0); Hemoglobin 14.5 g/dL (11.7-16.6); Lymphocytes # 0.9 10^3/uL (0.8-4.8); Lymphocytes % 19.3 %; Mean Corpuscular HGB Conc 33.8 g/dL (30.0-36.0); Mean Corpuscular Hemoglobin 31.8 pg (28.0-34.0); Mean Corpuscular Volume 94.1 fL (80-94); Mean Platelet Volume 9.7 fL (7.4-10.4); Monocytes # 0.4 10^3/uL (0.2-0.9); Monocytes % 7.5 %; Neutrophils # 3.49 10^3/uL (1.8-7.7); Neutrophils % 72.2 %; Nucleated Red Blood Cells % 0 %; Platelet Count 121 10^3/cmm (130-400); Red Blood Count 4.56 10^6/uL (4.1-5.3); Red Cell Distribution Width 11.9 % (12.1-15.1); White Blood Count 4.8 10^3/uL (4.0-10.0)
[2021-01-22 05:25] LABS: Alanine Aminotransferase 15 U/L (0-41); Albumin Level 3.3 g/dL (3.5-5.2); Alkaline Phosphatase 50 IU/L (40-130); Anion Gap 10.7 (5-19); Aspartate Amino Transferase 19 U/L (0-40); Blood Urea Nitrogen 7 mg/dL (6-20); Calcium 7.8 mg/dL (8.5-10.5); Carbon Dioxide 25 mmol/L (22-29); Chloride 106 mmol/L (98-107); Globulin 2.2 g/dL (1.3-4.6); Glomerular Filtration Rate 206.1 mL/min (90-130); Glucose 246 mg/dL (65-115); Magnesium 1.9 mg/dL (1.7-2.3); Osmolality Calculated 292 mOsm/kg (285-295); Potassium 3.7 mmol/L (3.5-5.1); Sodium 138 mmol/L (136-145); Total Bilirubin 0.7 mg/dL (0.15-1.2); Total Protein 5.5 g/dL (6.6-8.7)
--- NOTE | 2021-01-22 05:59 | PC.NURSE ---
TRANSFER Report called to [facility] on Med/Surg. Patient taken to 259-1 via wheelchair. Call light in reach and patient alert and oriented. Belongings sent with patient.
[2021-01-22 06:48] LABS: Glucose Point of Care 319 mg/dL (70-110)
--- NOTE | 2021-01-22 08:26 | PM.DCS ---
Discharge Providers Date of Admission: 01/20/21 09:15 Date of Discharge: January 22, 2021 Attending Provider at Admission: Terry Hines MD Attending Provider at Discharge: Terry Hines MD Primary Care Provider: MARGE Castellano Diagnoses at Discharge Discharge Diagnosis (1) DKA (diabetic ketoacidoses): Status: Acute (2) Encephalopathy acute: Status: Acute Reason for Visit Reason for Visit: DKA/ HYPERGLYCEMIA Hospital Course Hospital Course Salvatore is a 25-year-old white male who presented to the hospital in DKA. He had had multiple previous hospital stays for this. From discussion with a roommate, it is likely he was noncompliant with his insulin the day prior to admission and may have been going into DKA at that time as well. Salvatore confirms this. While in the hospital he was placed in the ICU on an insulin drip. Blood sugar was lowered by approximately 100 every hour on the insulin drip. He was given adequate hydration through IV. His gap closed he was started on oral diet and eventually was transitioned to long-acting insulin in the form of Lantus as well as sliding scale which she was on per his customer experience specialist. I asked that he follow-up with his customer experience specialist and 4 to 7 days, and he is to bring his insulin pump at that time for consideration of reinstituting that device. He is to check his blood sugar at minimum 4 times a day, and to follow the instructions that were given by his customer experience specialist to reduce incidence of DKA. He was informed about the seriousness of his situation. I did check his right groin where a central line had been removed prior to discharge and this had no significant hematoma. Anion gap was 10.7 at discharge. Physical Exam Narrative: EXAM NARRATIVE: General exam is no apparent distress Cardiovascular regular rate and rhythm without murmur Lungs clear Abdomen is soft positive bowel sounds Extremities no cyanosis clubbing or edema Urinary Catheter Management^: Burger: Cath Placed During This Visit: yes Reason for Continuing Indwelling Catheter: Accurate Measurement of Urinary Output in Critically Ill Patients Urinary Catheter Date of Insertion: 01/20/21 Urinary Catheter Time of Insertion: 09:42 Discharge Data Data Completed and Pending: Completed Studies During Hospitalization Category Date Time Status XR KUB portable 7 [id number] Stat Exams 01/20/21 08:51 Completed XR chest 1V merry ble [id number] Stat Exams 01/20/21 08:38 Completed Pending at discharge Category Date Time Status Blood Culture Sta t Lab 01/20/21 08:08 Results Labs from last 24 hours 01/22/21 01/22/21 01/22/21 06:25 04:34 04:34 WBC 4.8 RBC 4.56 Hgb 14.5 Hct 42.9 MCV 94.1 H MCH 31.8 MCHC 33.8 RDW 11.9 L Plt Count 121 L MPV 9.7 Neut % (Auto) 72.2 Lymph % (Auto) 19.3 [place] % (Auto) 7.5 Eos % (Auto) 0.4 Baso % (Auto) 0.4 Neut # (Auto) 3.49 Lymph # (Auto) 0.9 [place] # (Auto) 0.4 Eos # (Auto) 0.0 Baso # (Auto) 0.0 Nucleated RBC % (a uto) 0 Nucleated RBCs # 0.0 Sodium 138 Potassium 3.7 Chloride 106 Carbon Dioxide 25 Anion Gap 10.7 BUN 7 Creatinine 0.5 L GFR Calculation 206.1 H Glucose 246 H POC Glucose 319 H Calculated Osmolal ity 292 Calcium 7.8 L Magnesium 1.9 Total Bilirubin 0.7 AST 19 ALT 15 Alkaline Phosphata se 50 Total Protein 5.5 L Albumin 3.3 L Globulin 2.2 01/21/21 01/21/21 01/21/21 16:43 15:04 13:56 WBC RBC Hgb Hct MCV MCH MCHC RDW Plt Count MPV Neut % (Auto) Lymph % (Auto) [place] % (Auto) Eos % (Auto) Baso % (Auto) Neut # (Auto) Lymph # (Auto) [place] # (Auto) Eos # (Auto) Baso # (Auto) Nucleated RBC % (a uto) Nucleated RBCs # Sodium Potassium Chloride Carbon Dioxide Anion Gap BUN Creatinine GFR Calculation Glucose POC Glucose 261 H 287 H 153 H Calculated Osmolal ity Calcium Magnesium Total Bilirubin AST ALT Alkaline Phosphata se Total Protein Albumin Globulin 01/21/21 01/21/21 01/21/21 13:13 12:32 11:59 WBC RBC Hgb Hct MCV MCH MCHC RDW Plt Count MPV Neut % (Auto) Lymph % (Auto) [place] % (Auto) Eos % (Auto) Baso % (Auto) Neut # (Auto) Lymph # (Auto) [place] # (Auto) Eos # (Auto) Baso # (Auto) Nucleated RBC % (a uto) Nucleated RBCs # Sodium 141 Potassium 3.7 Chloride 110 H Carbon Dioxide 23 Anion Gap 11.7 BUN 14 Creatinine 0.5 L GFR Calculation 206.1 H Glucose 129 H POC Glucose 167 H 141 H Calculated Osmolal ity 294 Calcium 8.1 L Magnesium Total Bilirubin AST ALT Alkaline Phosphata se Total Protein Albumin Globulin 01/21/21 01/21/21 01/21/21 11:00 10:08 08:48 WBC RBC Hgb Hct MCV MCH MCHC RDW Plt Count MPV Neut % (Auto) Lymph % (Auto) [place] % (Auto) Eos % (Auto) Baso % (Auto) Neut # (Auto) Lymph # (Auto) [place] # (Auto) Eos # (Auto) Baso # (Auto) Nucleated RBC % (a uto) Nucleated RBCs # Sodium Potassium Chloride Carbon Dioxide Anion Gap BUN Creatinine GFR Calculation Glucose POC Glucose 161 H 204 H 240 H Calculated Osmolal ity Calcium Magnesium Total Bilirubin AST ALT Alkaline Phosphata se Total Protein Albumin Globulin Vitals: Last Vital Signs Temp 98.5 F 01/22/21 07:51 Pulse 83 01/22/21 07:51 Resp 14 01/22/21 07:51 BP 100/66 01/22/21 07:51 Pulse Ox 100 01/22/21 07:51 Discharge Plan Discharge Patient Disposition: Home Condition: Stable Prescriptions: Continued (DME) Dexcom G6 [employer] Broker Misc See Rx Instructions .ROUTE .MEDSUPPLY Qty: 1 RF: 0 (DME) Dexcom G6 Sensor Device See Rx Instructions .ROUTE .MEDSUPPLY Qty: 3 RF: 3 (DME) Dexcom G6 Transmitter Device See Rx Instructions .ROUTE .MEDSUPPLY Qty: 3 RF: 3 insulin aspart U-100 [Novolog Flexpen U-100 Insulin] 100 unit/mL (3 mL) insulin pen See Protocol unit SUBCUT QAM Qty: 15 RF: 0 Lantus U-100 Insulin 100 unit/mL solution 20 unit SUBCUT BID Qty: 10 RF: 0 (DME) Omnipod Dash 5 Pack Pod Cartridge SUBCUT RF: 0 promethazine 25 mg tablet 25 mg PO Q8H PRN (Reason: NAUSEA/VOMITING) RF: 0 Discharge Orders: Discharge Order (Routine); Ordered 01/22/21 Ordered By: Terry Hines Referrals: Earlene Titus FNP-C [Primary Care Provider] - 2 weeks Evelin Metz MD [Physician] - 4-7 days Discharge Diet: Diabetic Discharge Activity: Increase activity as tolerated Patient Instructions: Opioid Safety Activity Restrictions/Additional Instructions: Take insulin as prescribed. Monitor sugar before all meals and at bedtime as per instruction by endocrinology. Follow-up with endocrinology next week. Discharge Attestations Time Spent in Discharge Care*: greater than 30 min Status at Discharge: Cognitive status at discharge: cognitively intact, Behavioral status at discharge: cooperative, Quality Metrics Clinical Quality Measures During this hospital stay, did patient experience: None Coding Level of Care Code Acute Chg FW DC note Diagnoses DKA (diabetic ketoacidoses) E11.10 Encephalopathy acute G93.40
[2021-01-22] MEDS: insulin glargine 100 units/1 mL 20 UNIT SUBCUT (08:52)
[2021-01-22 10:57] LABS: Glucose Point of Care 325 mg/dL (70-110)
== END 2021-01-22 11:23 | disposition home or self-care (01) | DRG 637 ==
LOC: ER 07:28 → ICU 09:31 → MEDSURG 01-22 05:50
PROVIDERS: Admitting Provider Internal Medicine; Emergency Provider Family Medicine; PCP Nurse Practitioner Family; Visit Provider Internal Medicine
DX: E10.10 Type 1 diabetes mellitus with ketoacidosis without coma (principal); G93.41 Metabolic encephalopathy; N17.9 Acute kidney failure, unspecified; E86.0 Dehydration; K21.9 Gastro-esophageal reflux disease without esophagitis; F12.90 Cannabis use, unspecified, uncomplicated; Z87.891 Personal history of nicotine dependence; T38.3X6A Underdosing of insulin and oral hypoglycemic [antidiabetic] drugs, initial encounter; Z91.128 Patient's intentional underdosing of medication regimen for other reason
CPT/HCPCS: 36415; 36416; 36556; 36592; 36600; 51702; 71045; 74018; 80048; 80051; 80053; 80306; 81001; 82009; 82330; 82550; 82805; 82962; 83605; 83690; 83735; 84100; 85025; 87040; 93005; 96365; 96372; 96375; 99291; 99292; C1751; J0690; J1650; J1815 ×2; J2060; J2405; J3480; J3490; J7030; J7050

== ENCOUNTER 2021-02-10 08:39 | Inpatient (IN) | payer MEDICARE, MEDICAID, SELFPAY ==
[2021-02-10] VITALS (74 sets, daily range): BP systolic 71–137; BP diastolic 41–83; PULSE 94–149; RESP 14–50; TEMP 36.2–36.6; O2SAT 96–100; BMI 23.3
--- NOTE | 2021-02-10 08:48 | XRR_ITS ---
PROCEDURE INFORMATION: Exam: XR Chest Exam date and time: 02/10/2021 8:50 AM Age: 25 years old Clinical indication: Cough and dyspnea; Additional info: Dyspnea/cough TECHNIQUE: Imaging protocol: XR of the chest. Views: 1 view. COMPARISON: CR XR chest 1V portable [id number] 01/20/2021 8:38 AM FINDINGS: Tubes, catheters and devices: Right subclavian approach central line is in satisfactory position, with distal tip at the SVC/RA junction. Lungs: Unremarkable. No consolidation. Pleural spaces: Unremarkable. No pleural effusion. No pneumothorax. Heart/Mediastinum: Unremarkable. No cardiomegaly. Bones/joints: Unremarkable. XR/XR chest 1V portable [id number] IMPRESSION: No acute findings.
--- NOTE | 2021-02-10 08:56 | ED_ITS ---
HPI - General Adult General: Chief complaint: General Medical Stated complaint: DIABETIC Time Seen by Provider: 02/10/21 08:40 History of Present Illness: HPI narrative: 25-year-old male presents in DKA. Patient is frequently admitted through the emergency room with diabetic ketoacidosis for noncompliance with his insulin regimen. There is in anticipation on his part in the family is that if he gets an insulin pump these issues will be resolved. We admitted him last week within a few hours of admission he been resuscitated enough that he left AMA. EMS was called last night and he PRC to at the scene the family was going to give him insulin this morning they were called back he is significantly worse he is obtunded this morning and combative he is unable to follow directions were a little unable to maintain lines. Unfortunately we are forced to place him in hard restraints to initiate resuscitation successfully. Onset (ago): day(s) Severity: severe Relieving factors: none Exacerbating factors: none Associated symptoms: Reports confusion, decreased appetite, nausea, vomiting and weakness Treatments prior to arrival: none Review of Systems General: Reports: ROS unobtainable due to medical condition GI: Reports: nausea and vomiting Neuro: Reports: confusion PFS ED PFSH: Medical History Diabetes mellitus Type I GERD (gastroesophageal reflux disease) Hyperglycemia Marijuana use Pancreatitis Type 1 diabetes Surgical History No pertinent past surgical history Family History Other Diabetes Social History Smoking and tobacco status: former smoker Alcohol intake: never Household members: friend(s) Housing: House Physical Exam HENMT: COMMON NORMALS: normocephalic, atraumatic and hearing grossly normal bilaterally HEAD & SCALP: normocephalic and atraumatic Resp: EFFORT & INSPECTION: Yes abnormal respiratory pattern and Yes tachypneic Cardio: COMMON NORMALS: regular rate RATE: regular rate and tachycardic GI: COMMON NORMALS: Soft to palpation and No hepatosplenomegaly present AUSCULTATION: Yes normoactive bowel sounds PALPATION: Yes Soft to palpation, No Tenderness to palpation present (GI), No Guarding due to palpation present (GI) and Yes No hepatosplenomegaly present Extremity: COMMON NORMALS: normal to inspection, no clubbing, cyanosis or edema, no calf tenderness and no pedal edema NARRATIVE EXTREMITY EXAM: Mylanta extremities with poor cap refill due to volume depletion Skin: COMMON NORMALS: no rashes or lesions noted GENERAL SKIN EXAM: no rashes or lesions noted Procedures Central Line Placement Right SC: Time Out Performed: Yes Patient Placed on Monitor/Pulse Ox: Yes MD Prep: mask, gown and gloves Central Line Prep: Chlorhexidine scrub Local Anesthetic: lidocaine 1% Amount of anesthesia used (mL): 10 Ultrasound Used for Placement: Yes Central Line Lumen Inserted: triple Post Procedure: sutured in place, good blood return, all ports aspirated, flushed, capped and sterile dressing applied Post Procedure X-Ray: tip of catheter in good position and no pneumothorax seen Patient Tolerated Procedure: well Complications: none Course Vital Signs: Vital signs: Vital Signs Temperature 98.1 F 02/11/21 04:42 Pulse Rate 93 02/11/21 06:00 Respiratory Rate 19 H 02/11/21 06:00 Blood Pressure 94/60 02/11/21 06:00 Pulse Oximetry 99 02/11/21 06:00 MDM - General Adult MDM Narrative: Medical decision making narrative: Severe DKA. Sodium bicarb started as well as insulin and IV fluids and potassium. Patient has significant anion gap. Discussed Dr. Randall orders written admitted to the ICU. Lab Data: Labs: Lab Results 02/10/21 02/10/21 02/10/21 Range/Units 09:11 09:30 09:30 WBC (4.0-10.0) 10^3/ uL RBC (4.1-5.3) 10^6/u L Hgb (11.7-16.6) g/dL Hct (42.0-52.0) % MCV (80-94) fL MCH (28.0-34.0) pg MCHC (30.0-36.0) g/dL RDW (12.1-15.1) % Plt Count (130-400) 10^3/c mm MPV (7.4-10.4) fL Neut % (Auto) % Lymph % (Auto) % [place] % (Auto) % Eos % (Auto) % Baso % (Auto) % Neut # (Auto) (1.8-7.7) 10^3/u L Lymph # (Auto) (0.8-4.8) 10^3/u L [place] # (Auto) (0.2-0.9) 10^3/u L Eos # (Auto) (0.0-0.8) 10^3/u L Baso # (Auto) (0.0-0.1) 10^3/u L Nucleated RBC % (a uto) % Nucleated RBCs # /100WBC Specimen Type Arterial Sample Site Brachial, left ABG pH 6.82 L* (7.35-7.45) ABG pCO2 8.1 L* (35-45) mmHg ABG pO2 111.0 H (80.0-100.0) mmH g ABG HCO3 1.3 L (22-26) mmol/L ABG O2 Saturation 95.9 ABG Base Excess -32.0 L (-2.0-2.0) mmol/ L Hasmukh Test Pos A-a O2 Gradient 3.2 L (5-10) mmHg Hematocrit 44.6 (42-52) % Hgb O2 Saturation 94.0 L (95-100) % Carboxyhemoglobin 0.6 (0.4-20.1) %THgb Methemoglobin 1.4 (0.4-1.5) % Total Hemoglobin 14.6 (14-18) g/dL Sodium 140.0 (131-143) mmol/L Potassium 3.5 (3.5-5.0) mmol/L Glucose 645.0 H (70-115) mg/dL Ionized Calcium 1.0 L (1.1-1.4) mmol/L O2 Delivery Device Room air FiO2 21.0 % Digester ID Cak Chloride (98-107) mmol/L Carbon Dioxide (22-29) mmol/L Anion Gap (5-19) BUN (6-20) mg/dL Creatinine (0.7-1.2) mg/dL GFR Calculation (90-130) mL/min Calculated Osmolal ity (285-295) mOsm/k g Calcium (8.5-10.5) mg/dL Phosphorus (2.5-4.5) mg/dL Magnesium (1.7-2.3) mg/dL Total Bilirubin (0.15-1.2) mg/dL AST (0-40) U/L ALT (0-41) U/L Alkaline Phosphata se (40-130) IU/L Creatine Kinase (39-308) U/L Total Protein (6.6-8.7) g/dL Albumin (3.5-5.2) g/dL Globulin (1.3-4.6) g/dL Lipase (13-60) U/L Urine Color Yellow (Yellow) Urine Appearance Hazy A (CLEAR) Urine pH 5 (5-7) Ur Specific Gravit y 1.025 (1.005-1.030) Urine Protein 1+ H (Negative) Urine Glucose (UA) 4+ H (Normal) Urine Ketones 3+ H (Negative) Urine Blood Trace H (Negative) Urine Nitrate Negative (Negative) Urine Bilirubin Neg (Negative) Urine Urobilinogen Norm (Negative) mg/dL Ur Leukocyte Mini ase Negative (Negative) Urine RBC Rare (0-2) /hpf Urine WBC None (0-5) /hpf Ur Squamous Epith Cells None (0-5) /hpf Amorphous Sediment 1+ /hpf Urine Bacteria 2+ H (NONE) /hpf Urine Opiates Scre en Negative (Negative) ng/mL Ur Barbiturates Sc reen Negative (Negative) ng/mL Ur Phencyclidine S crn Negative (Negative) ng/mL Ur Amphetamines Sc reen Negative (Negative) ng/mL U Benzodiazepines Scrn Negative (Negative) ng/mL Urine Cocaine Scre en Negative (Negative) ng/mL U Marijuana (THC) Screen Negative (Negative) ng/mL Serum Ketones (Negative) 02/10/21 02/10/21 02/10/21 Range/Units 09:48 09:48 09:48 WBC 14.3 H (4.0-10.0) 10^3/ uL RBC 4.73 (4.1-5.3) 10^6/u L Hgb 15.3 (11.7-16.6) g/dL Hct 45.6 (42.0-52.0) % MCV 96.4 H (80-94) fL MCH 32.3 (28.0-34.0) pg MCHC 33.6 (30.0-36.0) g/dL RDW 12.6 (12.1-15.1) % Plt Count 397 (130-400) 10^3/c mm MPV 10.1 (7.4-10.4) fL Neut % (Auto) 78.6 % Lymph % (Auto) 13.3 % [place] % (Auto) 4.6 % Eos % (Auto) 0.1 % Baso % (Auto) 0.5 % Neut # (Auto) 11.21 H (1.8-7.7) 10^3/u L Lymph # (Auto) 1.9 (0.8-4.8) 10^3/u L [place] # (Auto) 0.7 (0.2-0.9) 10^3/u L Eos # (Auto) 0.0 (0.0-0.8) 10^3/u L Baso # (Auto) 0.1 (0.0-0.1) 10^3/u L Nucleated RBC % (a uto) 0 % Nucleated RBCs # 0.0 /100WBC Specimen Type Sample Site ABG pH (7.35-7.45) ABG pCO2 (35-45) mmHg ABG pO2 (80.0-100.0) mmH g ABG HCO3 (22-26) mmol/L ABG O2 Saturation ABG Base Excess (-2.0-2.0) mmol/ L Hasmukh Test A-a O2 Gradient (5-10) mmHg Hematocrit (42-52) % Hgb O2 Saturation (95-100) % Carboxyhemoglobin (0.4-20.1) %THgb Methemoglobin (0.4-1.5) % Total Hemoglobin (14-18) g/dL Sodium 133 L (131-143) mmol/L Potassium 5.5 H (3.5-5.0) mmol/L Glucose 858 H* (70-115) mg/dL Ionized Calcium (1.1-1.4) mmol/L O2 Delivery Device FiO2 % Digester ID Chloride 94 L (98-107) mmol/L Carbon Dioxide 3 L* (22-29) mmol/L Anion Gap 41.5 H (5-19) BUN 31 H (6-20) mg/dL Creatinine 1.4 H (0.7-1.2) mg/dL GFR Calculation 62.8 L (90-130) mL/min Calculated Osmolal ity 325 H (285-295) mOsm/k g Calcium 7.8 L (8.5-10.5) mg/dL Phosphorus 8.6 H* (2.5-4.5) mg/dL Magnesium 2.5 H (1.7-2.3) mg/dL Total Bilirubin 0.2 (0.15-1.2) mg/dL AST 16 (0-40) U/L ALT 14 (0-41) U/L Alkaline Phosphata se 67 (40-130) IU/L Creatine Kinase 49 (39-308) U/L Total Protein 6.5 L (6.6-8.7) g/dL Albumin 3.9 (3.5-5.2) g/dL Globulin 2.6 (1.3-4.6) g/dL Lipase 189 H (13-60) U/L Urine Color (Yellow) Urine Appearance (CLEAR) Urine pH (5-7) Ur Specific Gravit y (1.005-1.030) Urine Protein (Negative) Urine Glucose (UA) (Normal) Urine Ketones (Negative) Urine Blood (Negative) Urine Nitrate (Negative) Urine Bilirubin (Negative) Urine Urobilinogen (Negative) mg/dL Ur Leukocyte Mini ase (Negative) Urine RBC (0-2) /hpf Urine WBC (0-5) /hpf Ur Squamous Epith Cells (0-5) /hpf Amorphous Sediment /hpf Urine Bacteria (NONE) /hpf Urine Opiates Scre en (Negative) ng/mL Ur Barbiturates Sc reen (Negative) ng/mL Ur Phencyclidine S crn (Negative) ng/mL Ur Amphetamines Sc reen (Negative) ng/mL U Benzodiazepines Scrn (Negative) ng/mL Urine Cocaine Scre en (Negative) ng/mL U Marijuana (THC) Screen (Negative) ng/mL Serum Ketones Positive H (Negative) Critical Care Time Critical Care Time: Total Critical Care Time: 60 Attestation: This case had a high probability of a clinically significant, sudden, or life threatening deterioration of this patient's condition which required my full and direct attention, intervention and personal management. Discharge Plan Discharge Patient Disposition: Admitted As Inpatient Admit Provider: Terry Hines Coding Level of Care Code ED Waiter/Waitress Bar for [facility] Fwd Exam Detailed
[2021-02-10] MEDS: sodium chloride 0.9% 1,000 ML 999 ML IV ×5 (09:00→12:06)
[2021-02-10] MEDS: ondansetron 2 mg/ML SDV 2 mL 4 MG IVP (09:08)
[2021-02-10 09:22] LABS: Alveolar-Arterial Oxygen Gradi 3.2 mmHg (5-10); Arterial Blood Gas Hematocrit 44.6 % (42-52); Blood Gas Allen Test Pos; Blood Gas Operator Identificat CAK; Blood Gas Sample Site Brachial, left; Blood Gas Sample Type Arterial; Carboxyhemoglobin 0.6 %THgb (0.4-20.1); HCO3 ABG 1.3 mmol/L (22-26); Methemoglobin 1.4 % (0.4-1.5); Oxygen Device ROOM AIR; Oxygen Saturation ABG 95.9; Potassium Level - ABG 3.5 mmol/L (3.5-5.0); Total Hemoglobin 14.6 g/dL (14-18)
[2021-02-10 09:23] LABS: ABG PCO2 8.1 mmHg (35-45); ABG PH Result 6.82 (7.35-7.45)
[2021-02-10] MEDS: lidocaine 1% 5 ML in potassium chloride premix 100 ML 25 ML IV (09:32)
[2021-02-10 10:12] LABS: Basophils # 0.1 10^3/uL (0.0-0.1); Basophils % 0.5 %; Eosinophils % 0.1 %; Hematocrit 45.6 % (42.0-52.0); Hemoglobin 15.3 g/dL (11.7-16.6); Lymphocytes # 1.9 10^3/uL (0.8-4.8); Lymphocytes % 13.3 %; Mean Corpuscular HGB Conc 33.6 g/dL (30.0-36.0); Mean Corpuscular Hemoglobin 32.3 pg (28.0-34.0); Mean Corpuscular Volume 96.4 fL (80-94); Mean Platelet Volume 10.1 fL (7.4-10.4); Monocytes # 0.7 10^3/uL (0.2-0.9); Monocytes % 4.6 %; Neutrophils # 11.21 10^3/uL (1.8-7.7); Neutrophils % 78.6 %; Nucleated Red Blood Cells % 0 %; Platelet Count 397 10^3/cmm (130-400); Red Blood Count 4.73 10^6/uL (4.1-5.3); Red Cell Distribution Width 12.6 % (12.1-15.1); White Blood Count 14.3 10^3/uL (4.0-10.0)
[2021-02-10 10:20] LABS: Ketone (Acetest) Serum Positive (Negative)
[2021-02-10] MEDS: sodium bicarbonate 150 MEQ in dextrose 5% 1,000 ML 100 MEQ IV (10:22)
[2021-02-10 10:23] LABS: Alanine Aminotransferase 14 U/L (0-41); Albumin Level 3.9 g/dL (3.5-5.2); Alkaline Phosphatase 67 IU/L (40-130); Anion Gap 41.5 (5-19); Aspartate Amino Transferase 16 U/L (0-40); Blood Urea Nitrogen 31 mg/dL (6-20); Calcium 7.8 mg/dL (8.5-10.5); Chloride 94 mmol/L (98-107); Creatine Phosphokinase 49 U/L (39-308); Globulin 2.6 g/dL (1.3-4.6); Glomerular Filtration Rate 62.8 mL/min (90-130); Lipase 189 U/L (13-60); Magnesium 2.5 mg/dL (1.7-2.3); Potassium 5.5 mmol/L (3.5-5.1); Sodium 133 mmol/L (136-145); Total Bilirubin 0.2 mg/dL (0.15-1.2); Total Protein 6.5 g/dL (6.6-8.7)
[2021-02-10 10:23] LABS: Specific Gravity, Urine 1.025 (1.005-1.030); Urine Appearance Hazy (CLEAR); Urine Color Yellow (Yellow); pH Urine 5 (5-7)
[2021-02-10 10:24] LABS: Add Urine Microscopic? YES; Bilirubin Urine Neg (Negative); Blood Urine Trace (Negative); Glucose Urine UA 4+ (Normal); Ketones Urine 3+ (Negative); Leukocyte Esterase Urine Negative (Negative); Nitrate Urine Negative (Negative); Protein Urine 1+ (Negative); Urobilinogen Urine Norm (Negative)
[2021-02-10] MEDS: neomycin-poly-bacitracin oint 0.9 gm Pkt 1 APPLIC TOPICAL (10:24)
[2021-02-10] MEDS: insulin regular-human 100 units/1 mL 10 UNIT IVP (10:28)
[2021-02-10] MEDS: sodium bicarbonate 8.4% 1 mEq/mL 50mL Syr 100 MEQ IVP (10:29)
[2021-02-10 10:31] LABS: Add Urine Culture? No; Amorphous Sediment Urine 1+ /hpf; Bacteria Urine 2+ /hpf; RBC Urine RARE /hpf (0-2)
[2021-02-10 10:32] LABS: Osmolality Calculated 325 mOsm/kg (285-295)
[2021-02-10] MEDS: insulin regular-human 250 UNIT in sodium chloride 0.9% 250 ML 6.1 UNIT IV (10:34)
[2021-02-10 10:39] LABS: Carbon Dioxide 3 mmol/L (22-29); Glucose 858 mg/dL (65-115); Phosphorus 8.6 mg/dL (2.5-4.5)
[2021-02-10 11:10] LABS: Amphetamines Screen Urine Negative (Negative); Barbiturates Screen Urine Negative (Negative); Benzodiazepines Screen Urine Negative (Negative); Cocaine Screen Urine Negative (Negative); Opiate Screen Urine Negative (Negative); PCP Screen Urine Negative (Negative); THC Screen Urine Negative (Negative)
--- NOTE | 2021-02-10 11:28 | PM.HP ---
Providers/Chief Complaint Admitting Physician: Terry Hines MD Primary Care Provider: MARGE Castellano Chief Complaint: DIABETIC History of Present Illness Salvatore Ott is a 25 year old male with frequent recurrent admissions for DKA and concerns from noncompliance. He was recently admitted to the hospital in late January. Currently no family is available. He was apparently having issues with hypoglycemia yesterday and an ambulance was called but he refused transport. He was significantly worse this morning and combative so ambulance was called again and he was brought in. Patient cannot give me any history. Through the nurse she reports a friend did not think he had been taking his insulin lately. No other history is available currently. While in the emergency department he was given some sodium bicarb and, multiple boluses of IV fluids, and an insulin drip was initiated. A central line was placed right IJ. Review of Systems General: Reports: ROS unobtainable due to mental status (Patient obtunded) Medications/Allergies Home Medications Medication Instructions Recorded Confirmed Last Taken Type Omnipod Dash 5 Pack Pod 10/18/20 02/10/21 Unknown History promethazine 25 mg PO Q8H PRN 11/07/20 02/10/21 11/07/20 History blood-glucose meter,continuous #1 ea 11/26/20 02/10/21 Unknown Rx blood-glucose sensor #3 ea 11/26/20 02/10/21 Unknown Rx blood-glucose transmitter #3 ea 11/26/20 02/10/21 Unknown Rx insulin aspart U-100 100 unit/mL See Protocol SUBCUT QAM #15 ml 01/23/21 02/10/21 Unknown Rx (3 mL) subcutaneous pen insulin glargine 100 unit/mL 20 unit SUBCUT BID #10 ml 01/23/21 02/10/21 Unknown Rx subcutaneous solution Allergies Allergy/AdvReac Type Severity Reaction Status Date / Time promethazine [From Phenergan] Allergy Unknown Verified 02/10/21 09:03 PFSH Acute PFSH: Medical History Diabetes mellitus Type I GERD (gastroesophageal reflux disease) Hyperglycemia Marijuana use Pancreatitis Type 1 diabetes Surgical History No pertinent past surgical history Family History Other Diabetes Social History Smoking and tobacco status: former smoker Alcohol intake: never Household members: friend(s) Housing: House Vitals/I&O/Wt Last Vital Signs Temp 97.1 F L 02/10/21 08:45 Pulse 127 H 02/10/21 11:16 Resp 22 H 02/10/21 11:16 BP 96/41 02/10/21 11:16 Pulse Ox 100 02/10/21 11:16 02/09/21 02/10/21 02/10/21 22:59 06:59 14:59 Intake Total 1999 Balance 1999 Weight last 48 hrs Weight 63.503 kg Physical Exam Narrative: EXAM NARRATIVE: General exam is a white male, tachypneic, who will grunt in response to questions. Appears thin Neurologic: No obvious focal deficits, moves all extremities, confused HEENT: Atraumatic and normocephalic. Oropharynx with dry mucous membranes Neck is supple no lymphadenopathy or thyromegaly Cardiovascular tachycardic, no murmur Lungs clear no wheezing or crackles Abdomen is soft. Positive bowel sounds. No obvious organomegaly. was deferred Extremities no cyanosis clubbing or edema, cap refill less than 2 seconds Skin no rash but multiple excoriations noted. Urinary Catheter Management^: Burger: Cath Placed During This Visit: yes Urinary Catheter Date of Insertion: 02/10/21 Urinary Catheter Time of Insertion: 09:32 Data : 02/10/21 09:48 02/10/21 09:48 Other data: pH 6.82, PCO2 8, PO2 111 Calcium 7.8, phosphorus 8.6, magnesium 2.5, lipase 189, urinalysis with rare red blood cells, no white blood cells. Urine drug screen negative Serum ketones positive Chest x-ray without infiltrate A&P Assessment and plan (1) DKA (diabetic ketoacidoses): Patient presents with a severe episode of DKA. Hydration ongoing. pH less than 6.9 on presentation so he received bicarbonate. Continue insulin drip, changed to D5 half-normal saline with 20 mEq of potassium per liter when blood sugar less than 250 Repeat interview with patient when he becomes more responsive to delineate concerns of noncompliance Close follow-up of electrolytes, magnesium, and phosphorus Status: Acute Additional A&P Information Acute encephalopathy. This is secondary to DKA. Full code [id number] for DVT prophylaxis Attempted to call both mother and friend listed in contacts but no answer. Attestations Medical Necessity Statement*: Will need greater than 2 midnight stay for treatment of DKA with insulin drip Time Spent in Patient Care: Greater than 35 minutes Critical Care Time: The high probability of a clinically significant, sudden or life threatening deterioration of the patient's [endocrine, renal] system(s) required my full and direct attention, intervention and personal management. The critical care time is as shown. This time is in addition to time spent performing any reported procedures but includes the following: [x] Data and vital sign review and interpretation [x] Patient assessment, examination and intervention [x] Documentation [x] Medication orders and management Critical Care Time (min): 61 Coding Level of Care Code Acute Coordinator Integrated Marketing for [employer] Diagnoses DKA (diabetic ketoacidoses) E11.10
[2021-02-10] MEDS: sodium chloride 0.9% 1,000 ML 175 ML IV ×2 (11:55→14:59)
[2021-02-10 12:12] LABS: Anion Gap 35.1 (5-19); Blood Urea Nitrogen 31 mg/dL (6-20); Calcium 6.4 mg/dL (8.5-10.5); Chloride 105 mmol/L (98-107); Magnesium 2.2 mg/dL (1.7-2.3); Osmolality Calculated 327 mOsm/kg (285-295); Phosphorus 5.8 mg/dL (2.5-4.5); Potassium 5.1 mmol/L (3.5-5.1); Sodium 139 mmol/L (136-145)
[2021-02-10 12:54] LABS: Carbon Dioxide 4 mmol/L (22-29); Glucose 691 mg/dL (65-115)
[2021-02-10 13:20] LABS: Anion Gap 36.9 (5-19); Blood Urea Nitrogen 28 mg/dL (6-20); Calcium 6.8 mg/dL (8.5-10.5); Chloride 104 mmol/L (98-107); Glomerular Filtration Rate 92.6 mL/min (90-130); Osmolality Calculated 323 mOsm/kg (285-295); Potassium 4.9 mmol/L (3.5-5.1); Sodium 141 mmol/L (136-145)
[2021-02-10 13:34] LABS: Carbon Dioxide 5 mmol/L (22-29); Glucose 556 mg/dL (65-115)
[2021-02-10 14:00] LABS: Glucose Point of Care 488 mg/dL (70-110)
[2021-02-10] MEDS: enoxaparin 40 mg/0.4 mL Syringe SUBCUT (14:40)
--- NOTE | 2021-02-10 15:07 | PC.NURSE ---
recd 1130 am on 6 u/hr insulin gtt saline boluses neri
--- NOTE | 2021-02-10 15:31 | PC.NURSE ---
resting quietly. opens eyes to verbal stimuli. non combative. asking for water
[2021-02-10] MEDS: D5-NS 0.45% + KCL 20 mEq 20 MEQ/1,000 ML BAG 150 MEQ IV ×2 (16:57→23:37)
[2021-02-10 16:59] LABS: Glucose Point of Care 257 mg/dL (70-110)
[2021-02-10 16:59] LABS: Glucose Point of Care 304 mg/dL (70-110)
[2021-02-10 16:59] LABS: Glucose Point of Care 238 mg/dL (70-110)
[2021-02-10 17:12] LABS: Anion Gap 22.7 (5-19); Blood Urea Nitrogen 21 mg/dL (6-20); Calcium 7.5 mg/dL (8.5-10.5); Carbon Dioxide 11 mmol/L (22-29); Chloride 115 mmol/L (98-107); Glomerular Filtration Rate 119.8 mL/min (90-130); Glucose 244 mg/dL (65-115); Magnesium 2.1 mg/dL (1.7-2.3); Osmolality Calculated 311 mOsm/kg (285-295); Potassium 3.7 mmol/L (3.5-5.1); Sodium 145 mmol/L (136-145)
[2021-02-10 18:37] LABS: Glucose Point of Care 231 mg/dL (70-110)
[2021-02-10 19:15] LABS: Glucose Point of Care 228 mg/dL (70-110)
[2021-02-10 20:53] LABS: Glucose Point of Care 208 mg/dL (70-110)
[2021-02-10 22:07] LABS: Glucose Point of Care 180 mg/dL (70-110)
--- NOTE | 2021-02-10 22:34 | PC.NURSE ---
ASSUMING CARE Patient is resting in bed on room air with 1:1 sitter at bedside. D51/2 NS with 20KCL at 150 mL/hour, insulin drip running at set rate of 8 units/hour per Dr. Hines. Patient arousable to verbal command and is alert and oriented to person, place, and time, but not situation. Burger catheter in place and draining, and right subclavian central line in place and returns blood.
[2021-02-10 23:11] LABS: Glucose Point of Care 160 mg/dL (70-110)
--- NOTE | 2021-02-10 23:29 | PC.NURSE ---
INSULIN TITRATION Dr. Jackson called about patients blood sugar dropping from 208 at 2037 to 160 at 230. Order to decrease insulin drip from 8 to 4 units/hour. Continue D51/2NS with 20 KCL at 150 mL/hour and draw 0000 BMP now.
[2021-02-10 23:54] LABS: Anion Gap 13.4 (5-19); Blood Urea Nitrogen 17 mg/dL (6-20); Calcium 7.4 mg/dL (8.5-10.5); Carbon Dioxide 18 mmol/L (22-29); Chloride 114 mmol/L (98-107); Glomerular Filtration Rate 206.1 mL/min (90-130); Glucose 155 mg/dL (65-115); Osmolality Calculated 299 mOsm/kg (285-295); Potassium 3.4 mmol/L (3.5-5.1); Sodium 142 mmol/L (136-145)
[2021-02-11] VITALS (26 sets, daily range): BP systolic 94–131; BP diastolic 59–73; PULSE 86–113; RESP 0–36; TEMP 36.5–37.2; O2SAT 95–100
[2021-02-11 00:25] LABS: Glucose Point of Care 158 mg/dL (70-110)
[2021-02-11] MEDS: insulin glargine 100 units/1 mL 5 UNIT SUBCUT (01:06)
[2021-02-11] MEDS: sodium chlor 0.9% + KCl 20 mEq 20 MEQ/1,000 ML BAG 100 MEQ IV (01:06)
[2021-02-11 01:14] LABS: Glucose Point of Care 161 mg/dL (70-110)
--- NOTE | 2021-02-11 01:24 | PC.NURSE ---
NEW ORDERS Dr. Jackson called to talk with nurse about new orders about 0030. Order for 5 units of lantus now, once given, turn off insulin drip one hour after. Drip to be turned off at 0200. 15 units lantus to be started at 0600 this AM. Instruction to continue Q1H accu-checks for 2 hours after drip turned off (until 0400) and then recheck at 6 am before moving to [facility]. Notified her of potassium of 3.4, awaiting magnesium and phosphorous results before replacing electrolytes. D51/2NS with 20 KCL changed to NS with 20 KCL at 100 mL/hour.
[2021-02-11 01:25] LABS: Magnesium 1.9 mg/dL (1.7-2.3); Phosphorus 1.7 mg/dL (2.5-4.5)
[2021-02-11 02:24] LABS: Glucose Point of Care 89 mg/dL (70-110)
[2021-02-11 04:19] LABS: Glucose Point of Care 145 mg/dL (70-110)
[2021-02-11 05:22] LABS: Basophils % 0.4 %; Hematocrit 39.1 % (42.0-52.0); Hemoglobin 13.4 g/dL (11.7-16.6); Lymphocytes # 0.7 10^3/uL (0.8-4.8); Lymphocytes % 8.4 %; Mean Corpuscular HGB Conc 34.3 g/dL (30.0-36.0); Mean Corpuscular Hemoglobin 32.1 pg (28.0-34.0); Mean Corpuscular Volume 93.5 fL (80-94); Mean Platelet Volume 10.4 fL (7.4-10.4); Monocytes # 0.6 10^3/uL (0.2-0.9); Monocytes % 7.5 %; Neutrophils # 6.93 10^3/uL (1.8-7.7); Neutrophils % 83.5 %; Nucleated Red Blood Cells % 0 %; Platelet Count 200 10^3/cmm (130-400); Red Blood Count 4.18 10^6/uL (4.1-5.3); White Blood Count 8.3 10^3/uL (4.0-10.0)
[2021-02-11 05:39] LABS: Magnesium 2.1 mg/dL (1.7-2.3); Phosphorus 3.3 mg/dL (2.5-4.5)
[2021-02-11 05:43] LABS: Alanine Aminotransferase 13 U/L (0-41); Alkaline Phosphatase 47 IU/L (40-130); Aspartate Amino Transferase 12 U/L (0-40); Blood Urea Nitrogen 15 mg/dL (6-20); Calcium 7.3 mg/dL (8.5-10.5); Carbon Dioxide 12 mmol/L (22-29); Chloride 107 mmol/L (98-107); Globulin 2.1 g/dL (1.3-4.6); Glucose 182 mg/dL (65-115); Osmolality Calculated 287 mOsm/kg (285-295); Sodium 136 mmol/L (136-145); Total Bilirubin 0.3 mg/dL (0.15-1.2); Total Protein 5.1 g/dL (6.6-8.7)
[2021-02-11 05:46] LABS: Anion Gap 21.2 (5-19); Creatinine Clr Calc Pharmacy 166.5213; Potassium 4.2 mmol/L (3.5-5.1)
[2021-02-11 05:49] LABS: Slide Review Slide Review Perform
[2021-02-11] MEDS: insulin glargine 100 units/1 mL 15 UNIT SUBCUT (05:50)
[2021-02-11 05:55] LABS: Glucose Point of Care 193 mg/dL (70-110)
--- NOTE | 2021-02-11 06:12 | PC.NURSE ---
ANION GAP Nurse noted anion gap has opened back up from 13.[address] to [address] Jackson on unit, notified her of this change. Continue Q1H accu-checks for now and do an additional BMP at 0900 to see where anion gap is. Clarified that insulin drip is to stay off at this time and will reassess need for that after 0900 lab results.
[2021-02-11 06:52] LABS: Glucose Point of Care 220 mg/dL (70-110)
[2021-02-11 08:02] LABS: Glucose Point of Care 237 mg/dL (70-110)
[2021-02-11 09:20] LABS: Anion Gap 23.7 (5-19); Blood Urea Nitrogen 12 mg/dL (6-20); Calcium 7.3 mg/dL (8.5-10.5); Carbon Dioxide 12 mmol/L (22-29); Chloride 100 mmol/L (98-107); Glomerular Filtration Rate 206.1 mL/min (90-130); Glucose 249 mg/dL (65-115); Osmolality Calculated 282 mOsm/kg (285-295); Potassium 3.7 mmol/L (3.5-5.1); Sodium 132 mmol/L (136-145)
--- NOTE | 2021-02-11 09:41 | PM.PN ---
Subjective Subjective: Interval history: Salvatore reports he feels better this morning and is able to eat. He was changed to long-acting insulin last night but unfortunately has anion gap is open. Medications: Reviewed: Yes Vitals/I&O/Wt Last Vital Signs Temp 98.1 F 02/11/21 08:00 Pulse 93 02/11/21 08:00 Resp 19 H 02/11/21 08:00 BP 94/60 02/11/21 08:00 Pulse Ox 99 02/11/21 08:00 02/10/21 02/11/21 02/11/21 22:59 06:59 14:59 Intake Total 847.083 / 5408.193 1753.77 / 7161.963 1070 / 1070 Output Total 900 / 2100 800 / 2900 450 / 450 Balance -52.917 / 3308.193 953.77 / 4261.963 620 / 620 Weight last 48 hrs Weight 61.462 kg Weight 63.503 kg Physical Exam Narrative: EXAM NARRATIVE: General exam is a white male conversant. Denies any noncompliance with his medicine. 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 Neck is supple no lymphadenopathy or thyromegaly Cardiovascular tachycardic, no murmur Lungs clear no wheezing or crackles Abdomen is soft. Positive bowel sounds. No obvious organomegaly. was deferred Extremities no cyanosis clubbing or edema, cap refill less than 2 seconds Urinary Catheter Management^: Burger: Cath Placed During This Visit: yes, but has since been removed by the nurse Reason for Continuing Indwelling Catheter: Decision to DC Catheter Urinary Catheter Date of Insertion: 02/10/21 Urinary Catheter Time of Insertion: 09:32 Date Urinary Catheter Removed: 02/11/21 Time Urinary Catheter Discontinued: 08:48 Data : 02/11/21 04:50 02/11/21 09:00 A&P Assessment and plan (1) DKA (diabetic ketoacidoses): Patient presents with a severe episode of DKA. pH less than 6.9 on presentation so he received bicarbonate. With private branch exchange service advisor to long-acting insulin when his gap has opened again consistent with DKA. Discontinue long-acting insulin Change fluids to D5 half-normal saline with 20 mEq of potassium running at 125 cc an hour Reinstitute insulin drip Continue to closely monitor electrolytes. May remove Burger Status: Acute Additional A&P Information Acute encephalopathy. This is secondary to DKA. This is currently resolved Full code Lovenox for DVT prophylaxis Attestations Medical Necessity Statement*: Needs continued hospital stay for further therapy with insulin drip and fluids secondary to DKA. Coding Level of Care Code Acute Sourcing Manager for [facility] Fwd Diagnoses DKA (diabetic ketoacidoses) E11.10
[2021-02-11 09:43] LABS: Glucose Point of Care 205 mg/dL (70-110)
[2021-02-11] MEDS: D5-NS 0.45% + KCL 20 mEq 20 MEQ/1,000 ML BAG 125 MEQ IV (09:49)
--- NOTE | 2021-02-11 09:53 | PC.CHAP ---
Pastoral Care Encounter/Spiritual Assessment Type of Contact [] Declined advertising executive visit [] Patient/Family/Request visit [] Outpatient visit [] Follow-up visit [] Physician referral [] Code/Alert [x] Routine visit [] Staff referral [] Actively dying [x] Patient sleeping [] Family support [] [] Out of room [] Palliative care [] [] Receiving care in room [] Pre-surgical visit [] Trauma [] Long length of stay [x] ICU visit [] Other: Relational/Emotional Strength [] Patient feels connected with others/family/visitors/staff [] Distress [] Loneliness/isolation [] Abandonment Spirituality of Patient [] Person of Emily [] Attends Sabianist of their Emily [] Believes in Prayer [] Reads Bible or Hinduism materials [] There are Spiritual issues to be addressed Drain Tile Machine Operator Interventions [x] Prayer [] Active listening [] Non-anxious presence [] Spiritual/emotional support [] Crisis/trauma care [] Spiritual counseling [] Bereavement support [] Provided bereavement packet [] Provided Bible/devotional materials [] Provided toy/stuffed animal, coloring book to patient or family member [] Provided Communion [] Anointing/[place] [] Salvation [x] Completed spiritual assessment [] Other: Impact on Illness or Injury [] Angry [] Fearful [] Anxious [] Often cries [] Exhaustion [] Unable to work [] Unable to attend moravian [] Unable to walk/stand [] Unable to read [] Unable to drive [] Unable to eat/drink [] Unable to sleep [] Unable to be with family [] Patient intubated [] Other: Summary Time spent with patient
[2021-02-11 11:08] LABS: Glucose Point of Care 261 mg/dL (70-110)
[2021-02-11] MEDS: enoxaparin 40 mg/0.4 mL Syringe SUBCUT (12:19)
[2021-02-11 12:27] LABS: Glucose Point of Care 342 mg/dL (70-110)
[2021-02-11 13:14] LABS: Glucose Point of Care 318 mg/dL (70-110)
[2021-02-11 14:11] LABS: Glucose Point of Care 283 mg/dL (70-110)
[2021-02-11 15:26] LABS: Glucose Point of Care 221 mg/dL (70-110)
[2021-02-11 16:06] LABS: Glucose Point of Care 188 mg/dL (70-110)
[2021-02-11 16:48] LABS: Anion Gap 11.4 (5-19); Blood Urea Nitrogen 12 mg/dL (6-20); Calcium 7.8 mg/dL (8.5-10.5); Carbon Dioxide 22 mmol/L (22-29); Chloride 107 mmol/L (98-107); Creatinine Clr Calc Pharmacy 166.5213; Glucose 201 mg/dL (65-115); Osmolality Calculated 289 mOsm/kg (285-295); Potassium 3.4 mmol/L (3.5-5.1); Sodium 137 mmol/L (136-145)
[2021-02-11] MEDS: potassium chloride ER 20 mEq Tablet 40 MEQ PO (17:56)
[2021-02-11] MEDS: sodium chlor 0.9% + KCl 20 mEq 20 MEQ/1,000 ML BAG 75 MEQ IV (17:57)
[2021-02-11] MEDS: insulin glargine 100 units/1 mL 20 UNIT SUBCUT (17:57)
--- NOTE | 2021-02-11 18:10 | PC.NURSE ---
PT Blood sugar 90. Pt has ordered lantus to be given. Dr. Hines notified of findings. orders to give lantus and stop insulin gtt noted. Orders to also feed pt prior to giving lantus.will monitor
[2021-02-11 18:11] LABS: Glucose Point of Care 95 mg/dL (70-110)
--- NOTE | 2021-02-11 20:21 | PC.NURSE ---
TRANSFER Received as transfer from ICU via wheelchair. Is alert and oriented. Denies pain. IV infusing per CVL right subclavian. Urinal provided and instructed on need to monitor I&O. Voices understanding
--- NOTE | 2021-02-11 20:24 | PC.NURSE ---
TRANSFER Report called to KEITH Gomez on Medical floor. Patient transferred via wheelchair to [facility]. Call light in reach and fluids restarted. Patient denies needs at this time.
[2021-02-11 21:03] LABS: Glucose Point of Care 392 mg/dL (70-110)
[2021-02-12 03:55] VITALS: BP 108/70; PULSE 93; RESP 16; TEMP 36.7; O2SAT 97
--- NOTE | 2021-02-12 05:35 | PC.NURSE ---
SHIFT SUMMARY No c/o after transfer from ICU. On phone alot of the time. Voiding large amts per urinal. IV fluids infusing at 75ml/hr rate
[2021-02-12 05:54] VITALS: PULSE 83
[2021-02-12 06:05] LABS: Basophils % 0.5 %; Eosinophils % 0.2 %; Hematocrit 38.6 % (42.0-52.0); Hemoglobin 13.5 g/dL (11.7-16.6); Lymphocytes # 1.1 10^3/uL (0.8-4.8); Lymphocytes % 25.6 %; Mean Corpuscular Hemoglobin 31.8 pg (28.0-34.0); Mean Platelet Volume 9.6 fL (7.4-10.4); Monocytes # 0.4 10^3/uL (0.2-0.9); Monocytes % 8.7 %; Neutrophils # 2.84 10^3/uL (1.8-7.7); Neutrophils % 64.8 %; Nucleated Red Blood Cells % 0 %; Platelet Count 163 10^3/cmm (130-400); Red Blood Count 4.24 10^6/uL (4.1-5.3); Red Cell Distribution Width 12.9 % (12.1-15.1); White Blood Count 4.4 10^3/uL (4.0-10.0)
[2021-02-12 06:17] LABS: Alanine Aminotransferase 11 U/L (0-41); Albumin Level 3.4 g/dL (3.5-5.2); Alkaline Phosphatase 49 IU/L (40-130); Anion Gap 12.5 (5-19); Aspartate Amino Transferase 12 U/L (0-40); Blood Urea Nitrogen 7 mg/dL (6-20); Calcium 7.9 mg/dL (8.5-10.5); Carbon Dioxide 25 mmol/L (22-29); Chloride 107 mmol/L (98-107); Globulin 1.5 g/dL (1.3-4.6); Glomerular Filtration Rate 266.6 mL/min (90-130); Glucose 186 mg/dL (65-115); Osmolality Calculated 295 mOsm/kg (285-295); Phosphorus 1.7 mg/dL (2.5-4.5); Potassium 3.5 mmol/L (3.5-5.1); Sodium 141 mmol/L (136-145); Total Bilirubin 0.4 mg/dL (0.15-1.2); Total Protein 4.9 g/dL (6.6-8.7)
[2021-02-12 06:35] LABS: Glucose Point of Care 195 mg/dL (70-110)
[2021-02-12 07:43] VITALS: BP 120/83; PULSE 93; RESP 17; TEMP 36.9; O2SAT 96
[2021-02-12] MEDS: sodium chlor 0.9% + KCl 20 mEq 20 MEQ/1,000 ML BAG 75 MEQ IV (08:22)
[2021-02-12] MEDS: insulin glargine 100 units/1 mL 20 UNIT SUBCUT (08:22)
[2021-02-12 08:34] VITALS: BP 120/83; PULSE 93; RESP 17; TEMP 36.9; O2SAT 96
--- NOTE | 2021-02-12 09:48 | PM.DCS ---
Discharge Providers Date of Admission: 02/10/21 10:54 Date of Discharge: February 12, 2021 Attending Provider at Admission: Terry Hines MD Attending Provider at Discharge: Terry Hines MD Primary Care Provider: MARGE Castellano Diagnoses at Discharge Discharge Diagnosis (1) DKA (diabetic ketoacidoses): Status: Acute Reason for Visit Reason for Visit: DIABETIC Hospital Course Hospital Course Salvatore is a 25-year-old known diabetic with multiple hospital stays who presented to the hospital lethargic and obtunded. He was diagnosed with DKA with a pH of approximately 6.8. He received bicarb in the emergency department, hydration, and was initially started on an insulin drip. He was transition to the ICU where insulin drip was continued and eventually D5 was initiated. The night of February 10 his anion gap had closed closed and there were attempts to transition him to long-acting insulin. This failed and his gap reopened and insulin drip had to be restarted. On the gap it again closed and he was transitioned over to Lantus and tolerated this well. By the end of the hospital stay he was eating normally, and anion gap was closed at time of discharge. He had no nausea and was ready for discharge. Lantus will be increased to 24 units twice daily. He will follow-up with his primary care provider and pull tab dealer. I counseled him not to use any methamphetamine. He reported no recent use but reports that he had used this in the past. I counseled him to be compliant with his insulin products, and to follow his consistent carb diet. Physical Exam Narrative: EXAM NARRATIVE: General exam no apparent distress Cardiovascular regular rate and rhythm without murmur Lungs clear Abdomen is soft, positive bowel sounds Extremities no cyanosis clubbing or edema Urinary Catheter Management^: Burger: Cath Placed During This Visit: yes, but has since been removed by the nurse Reason for Continuing Indwelling Catheter: Decision to DC Catheter Urinary Catheter Date of Insertion: 02/10/21 Urinary Catheter Time of Insertion: 09:32 Date Urinary Catheter Removed: 02/11/21 Time Urinary Catheter Discontinued: 08:48 Discharge Data Data Completed and Pending: Completed Studies During Hospitalization Category Date Time Status XR chest 1V merry ble [id number] Stat Exams 02/10/21 08:48 Completed Labs from last 24 hours 02/12/21 02/12/2121 06:26 05:32 05:32 WBC 4.4 RBC 4.24 Hgb 13.5 Hct 38.6 L MCV 91.0 MCH 31.8 MCHC 35.0 RDW 12.9 Plt Count 163 MPV 9.6 Neut % (Auto) 64.8 Lymph % (Auto) 25.6 [place] % (Auto) 8.7 Eos % (Auto) 0.2 Baso % (Auto) 0.5 Neut # (Auto) 2.84 Lymph # (Auto) 1.1 [place] # (Auto) 0.4 Eos # (Auto) 0.0 Baso # (Auto) 0.0 Nucleated RBC % (a uto) 0 Nucleated RBCs # 0.0 Sodium 141 Potassium 3.5 Chloride 107 Carbon Dioxide 25 Anion Gap 12.5 BUN 7 Creatinine 0.4 L GFR Calculation 266.6 H Glucose 186 H POC Glucose 195 H Calculated Osmolal ity 295 Calcium 7.9 L Phosphorus 1.7 L Magnesium 2.0 Total Bilirubin 0.4 AST 12 ALT 11 Alkaline Phosphata se 49 Total Protein 4.9 L Albumin 3.4 L Globulin 1.5 02/11/21 02/11/21 02/11/21 20:20 17:55 16:03 WBC RBC Hgb Hct MCV MCH MCHC RDW Plt Count MPV Neut % (Auto) Lymph % (Auto) [place] % (Auto) Eos % (Auto) Baso % (Auto) Neut # (Auto) Lymph # (Auto) [place] # (Auto) Eos # (Auto) Baso # (Auto) Nucleated RBC % (a uto) Nucleated RBCs # Sodium Potassium Chloride Carbon Dioxide Anion Gap BUN Creatinine GFR Calculation Glucose POC Glucose 392 H 95 188 H Calculated Osmolal ity Calcium Phosphorus Magnesium Total Bilirubin AST ALT Alkaline Phosphata se Total Protein Albumin Globulin 02/11/21 02/11/21 02/11/21 15:51 15:23 14:08 WBC RBC Hgb Hct MCV MCH MCHC RDW Plt Count MPV Neut % (Auto) Lymph % (Auto) [place] % (Auto) Eos % (Auto) Baso % (Auto) Neut # (Auto) Lymph # (Auto) [place] # (Auto) Eos # (Auto) Baso # (Auto) Nucleated RBC % (a uto) Nucleated RBCs # Sodium 137 Potassium 3.4 L Chloride 107 Carbon Dioxide 22 Anion Gap 11.4 BUN 12 Creatinine 0.6 L GFR Calculation 167.0 H Glucose 201 H POC Glucose 221 H 283 H Calculated Osmolal ity 289 Calcium 7.8 L Phosphorus Magnesium 2.0 Total Bilirubin AST ALT Alkaline Phosphata se Total Protein Albumin Globulin 02/11/21 02/11/21 02/11/21 13:11 12:24 11:05 WBC RBC Hgb Hct MCV MCH MCHC RDW Plt Count MPV Neut % (Auto) Lymph % (Auto) [place] % (Auto) Eos % (Auto) Baso % (Auto) Neut # (Auto) Lymph # (Auto) [place] # (Auto) Eos # (Auto) Baso # (Auto) Nucleated RBC % (a uto) Nucleated RBCs # Sodium Potassium Chloride Carbon Dioxide Anion Gap BUN Creatinine GFR Calculation Glucose POC Glucose 318 H 342 H 261 H Calculated Osmolal ity Calcium Phosphorus Magnesium Total Bilirubin AST ALT Alkaline Phosphata se Total Protein Albumin Globulin Vitals: Last Vital Signs Temp 98.4 F 02/12/21 08:34 Pulse 93 02/12/21 08:34 Resp 17 02/12/21 08:34 BP 120/83 02/12/21 08:34 Pulse Ox 96 02/12/21 08:34 Discharge Plan Discharge Patient Disposition: Home Condition: Stable Prescriptions: Continued (DME) Dexcom G6 Cheese Specialist Misc See Rx Instructions .ROUTE .MEDSUPPLY Qty: 1 RF: 0 (DME) Dexcom G6 Sensor Device See Rx Instructions .ROUTE .MEDSUPPLY Qty: 3 RF: 3 (DME) Dexcom G6 Transmitter Device See Rx Instructions .ROUTE .MEDSUPPLY Qty: 3 RF: 3 insulin aspart U-100 [Novolog Flexpen U-100 Insulin] 100 unit/mL (3 mL) insulin pen See Protocol unit SUBCUT QAM Qty: 15 RF: 3 (DME) Omnipod Dash 5 Pack Pod Cartridge SUBCUT RF: 0 promethazine 25 mg tablet 25 mg PO Q8H PRN (Reason: NAUSEA/VOMITING) RF: 0 Changed Lantus U-100 Insulin 100 unit/mL solution 24 unit SUBCUT BID Qty: 10 RF: 0 Discharge Orders: Discharge Order (Routine); Ordered 02/12/21 Ordered By: Terry Hines Referrals: Earlene Titus FNP-C [Primary Care Provider] - 4-7 days Discharge Diet: Diabetic Patient Instructions: Opioid Safety Activity Restrictions/Additional Instructions: Take all medicine as prescribed Remove central line prior to discharge Note that Lantus is increased to 24 units twice daily Continue your sliding scale with base dose of 10 units with meals as instructed by endocrinology Follow-up with endocrinology as soon as possible. Discharge Attestations Time Spent in Discharge Care*: greater than 30 min Status at Discharge: Cognitive status at discharge: cognitively intact, Behavioral status at discharge: cooperative, Quality Metrics Clinical Quality Measures During this hospital stay, did patient experience: None Coding Level of Care Code Acute [facility] SARAH FONTANA note Diagnoses DKA (diabetic ketoacidoses) E11.10
[2021-02-12 10:44] LABS: Glucose Point of Care 237 mg/dL (70-110)
--- NOTE | 2021-02-12 13:44 | PC.NURSE ---
PT HAS DONE WELL FOR ME. PT HAS BEEN PLEASANT THIS STAY. PTS BLOOD SUGARS HAVE BEEN DECENT FOR ME TODAY. PT WAS GIVEN SOME NOVOLOG AND LANTUS THIS MORNING. PT DOES NOT HAVE ANY COMPLAINTS OF PAIN. PT WILL DISCHARGE TODAY PER DOCTOR. CENTRAL LINE WAS PULLED BY THIS NURSE PER DOCTOR ORDER. PT TOLERATED THIS WELL. PRESSURE DRESSING WAS APPLIED. DISCHARGE PAPERWORK WAS GONE OVER WITH PT, NO QUESTIONS. PT SAFELY DISCHARGED FROM THIS HOSPITAL AT 1121.
[2021-02-12 13:53] VITALS: BP 120/83; PULSE 93; RESP 17; TEMP 36.9; O2SAT 96
== END 2021-02-12 11:21 | disposition home or self-care (01) | DRG 638 ==
LOC: ER 10:12 → ICU 11:05 → MEDSURG 02-11 20:11
PROVIDERS: Hospitalist; Admitting Provider Internal Medicine; Emergency Provider Family Medicine; PCP Nurse Practitioner Family; Visit Provider Internal Medicine
DX: E10.10 Type 1 diabetes mellitus with ketoacidosis without coma (principal); G93.49 Other encephalopathy; T38.3X6A Underdosing of insulin and oral hypoglycemic [antidiabetic] drugs, initial encounter; Z91.128 Patient's intentional underdosing of medication regimen for other reason; K21.9 Gastro-esophageal reflux disease without esophagitis; F12.90 Cannabis use, unspecified, uncomplicated; Z87.891 Personal history of nicotine dependence
CPT/HCPCS: 36415; 36416; 36592; 36600; 51702; 71045; 80048; 80051; 80053; 80306; 81001; 82009; 82330; 82550; 82805; 82962; 83690; 83735; 84100; 85025; 96365; 96366; 96367; 96372; 96375; 99291; 99292; C1751; J1650; J1815 ×2; J2405; J3475; J3480; J7030; J7050; Q3014

== ENCOUNTER 2021-02-15 22:47 | Inpatient (IN) | payer MEDICARE, MEDICAID, SELFPAY ==
--- NOTE | 2021-02-15 22:50 | ED_ITS ---
HPI - General Adult General: Chief complaint: Altered Mental Status Stated complaint: DKA Time Seen by Provider: 02/15/21 22:49 Source: EMS Mode of arrival: EMS Limitations: altered mental status History of Present Illness: HPI narrative: 25-year-old male is well-known to the ER and has a long history of DKA along with noncompliance with his insulin. He is a type I diabetic. Patient was found to be in severe distress. He is altered here and only responds to painful stimuli and has cues mom breathing. His blood sugar is running as high. Patient was recently admitted here few weeks ago for same. He has had no known vomiting or diarrhea. Review of Systems General: Reports: ROS unobtainable due to medical condition and ROS unobtainable due to mental status PFSH ED PFSH: Medical History Diabetes mellitus Type I GERD (gastroesophageal reflux disease) Hyperglycemia Marijuana use Pancreatitis Type 1 diabetes Surgical History No pertinent past surgical history Family History Other Diabetes Social History Smoking and tobacco status: former smoker Alcohol intake: never Household members: friend(s) Housing: House Physical Exam Const: COMMON NORMALS: negative for patient oriented x3 GENERAL APPEARANCE: in distress and ill appearing HENMT: COMMON NORMALS: normocephalic and atraumatic HEAD & SCALP: normocephalic and atraumatic Eye: COMMON NORMALS: Equal, round and reactive pupils present and EOMs intact bilaterally PUPIL: Yes Equal, round and reactive pupils present Neck/C-Spine: COMMON NORMALS: full ROM and supple Chest: COMMONS NORMALS: normal inspection of the chest and normal palpation of entire chest wall Resp: COMMON NORMALS: negative for No retractions EFFORT & INSPECTION: Yes tachypneic OTHER: kussmual breathing Cardio: COMMON NORMALS: regular rhythm and No murmurs present (Cardio) RATE: tachycardic RHYTHM: regular rhythm GI: COMMON NORMALS: Normal to inspection, nondistended, normoactive bowel sounds present, Soft to palpation, non-tender and no masses PALPATION: Yes Soft to palpation Extremity: COMMON NORMALS: normal to inspection and full ROM Neuro: COMMON NORMALS: moves all extremities; negative for patient oriented x3 Psych: COMMON NORMALS: negative for mental status grossly normal Skin: COMMON NORMALS: no rashes or lesions noted and no wounds GENERAL SKIN EXAM: no rashes or lesions noted MDM - General Adult MDM Narrative: Medical decision making narrative: Patient presents here with severe DKA. Patient's been started on insulin drip along with IV fluids. His anion gap is went from 49-42. I spoke to hospitalist and will admit to the ICU at this time. He has no signs of infection. He is known with noncompliance. Lab Data: Labs: Lab Results 02/15/21 02/16/21 Range/Units 22:50 00:11 Specimen Type Arterial Sample Site Brachial, right ABG pH 6.78 L* (7.35-7.45) ABG pCO2 10.2 L* (35-45) mmHg ABG pO2 161.0 H (80.0-100.0) mmH g ABG HCO3 1.5 L (22-26) mmol/L ABG Base Excess -32.7 L (-2.0-2.0) mmol/ L Hasmukh Test N/a Hematocrit 42.9 (42-52) % O2 Delivery Device Room air Medium Cycle Salesperson ID [email or web address] Sodium 141 (136-145) mmol/L Potassium 6.5 H* (3.5-5.1) mmol/L Chloride 102 (98-107) mmol/L Carbon Dioxide 3 L* (22-29) mmol/L Anion Gap 42.5 H (5-19) BUN 31 H (6-20) mg/dL Creatinine 1.7 H (0.7-1.2) mg/dL GFR Calculation 50.2 L (90-130) mL/min Glucose 650 H* (65-115) mg/dL Calculated Osmolal ity 329 H (285-295) mOsm/k g Calcium 7.7 L (8.5-10.5) mg/dL Critical Care Time Critical Care Time: Critical Care Time: Yes Total Critical Care Time: 35 Attestation: This case had a high probability of a clinically significant, sudden, or life threatening deterioration of this patient's condition which required my full and direct attention, intervention and personal management. Discharge Plan Discharge Patient Disposition: Admitted As Inpatient Admit Provider: Maryana Jackson Clinical Impression: DKA (diabetic ketoacidoses) Qualifiers: Diabetes mellitus type: type 1 Diabetes mellitus complication detail: with coma Qualified Code(s): E10.11 - Type 1 diabetes mellitus with ketoacidosis with coma Condition: Stable Coding Level of Care Code ED Implement Mechanic for g Fwd Exam Comprehensive
[2021-02-15 23:03] LABS: Arterial Blood Gas Hematocrit 42.9 % (42-52); Base Excess ABG -32.7 mmol/L (-2.0-2.0); Blood Gas Sample Site Brachial, right; Blood Gas Sample Type Arterial; HCO3 ABG 1.5 mmol/L (22-26); Oxygen Device ROOM AIR
[2021-02-15 23:05] LABS: ABG PCO2 10.2 mmHg (35-45); ABG PH Result 6.78 (7.35-7.45)
[2021-02-15] MEDS: sodium chloride 0.9% 1,000 ML 999 ML IV (23:05)
--- NOTE | 2021-02-15 23:20 | PC.NURSE ---
Rechecked blood glucose, glucometer says high.
[2021-02-16] VITALS (82 sets, daily range): BP systolic 67–135; BP diastolic 39–91; PULSE 88–143; RESP 15–36; TEMP 35.8–36.9; O2SAT 95–100; BMI 21.8
[2021-02-16 00:44] LABS: Blood Urea Nitrogen 31 mg/dL (6-20); Calcium 7.7 mg/dL (8.5-10.5); Chloride 102 mmol/L (98-107); Glomerular Filtration Rate 50.2 mL/min (90-130); Osmolality Calculated 329 mOsm/kg (285-295); Sodium 141 mmol/L (136-145)
[2021-02-16 00:48] LABS: Anion Gap 42.5 (5-19)
[2021-02-16 01:10] LABS: Carbon Dioxide 3 mmol/L (22-29); Glucose 650 mg/dL (65-115); Potassium 6.5 mmol/L (3.5-5.1)
[2021-02-16] MEDS: sodium chloride 0.9% 1,000 ML 999 ML IV (01:27)
[2021-02-16] MEDS: insulin regular-human 250 UNIT in sodium chloride 0.9% 250 ML 12.5 UNIT IV (01:49)
--- NOTE | 2021-02-16 01:50 | PC.NURSE ---
Patient Arrive From ER Patient arrived from ER by stretcher at 0140 this morning and was placed in ICU room 3. Insulin drip was started and infusing at 10 mls/hr upon patient arrival to ICU and NS 1 liter fluid bolus was infusing in the right forearm IV site. Patient was lethargic and very sleepy upon arrival to unit and admission assessment was not fully completed.
--- NOTE | 2021-02-16 02:06 | PM.HP ---
Providers/Chief Complaint Admitting Physician: Maryana Jackson MD Primary Care Provider: MARGE Castellano Chief Complaint: DKA History of Present Illness Salvatore Ott is a 25 year old male type I diabetic well-known to hospital staff he was discharged 5 days ago after an admission with DKA. He is back in DKA again with an initial ABG 6.7 8/161/1 0.5. Initial blood sugar 650 and anion gap 42. Patient received insulin and IV fluids in the emergency room. He remains unable to provide history. Review of Systems General: Reports: ROS unobtainable due to medical condition Medications/Allergies Home Medications Medication Instructions Recorded Confirmed Last Taken Type Omnipod Dash 5 Pack Pod 10/18/20 02/10/21 Unknown History promethazine 25 mg PO Q8H PRN 11/07/20 02/10/21 11/07/20 History blood-glucose meter,continuous #1 ea 11/26/20 02/10/21 Unknown Rx blood-glucose sensor #3 ea 11/26/20 02/10/21 Unknown Rx blood-glucose transmitter #3 ea 11/26/20 02/10/21 Unknown Rx insulin aspart U-100 100 unit/mL See Protocol SUBCUT QAM #15 ml 01/23/21 02/10/21 Unknown Rx (3 mL) subcutaneous pen Lantus U-100 Insulin 24 unit SUBCUT BID #10 ml 02/12/21 02/10/21 Unknown Rx Allergies Allergy/AdvReac Type Severity Reaction Status Date / Time promethazine [From Phenergan] Allergy Unknown Verified 02/10/21 09:03 Additional Medication Information I personally reviewed medications received in ED PFSH Acute PFSH: Medical History (Updated 02/16/21 @ 02:14 by Maryana Jackson MD) GERD (gastroesophageal reflux disease) Marijuana use Pancreatitis Type 1 diabetes With recurrent admissions for DKA, severe Surgical History No pertinent past surgical history Family History Other Diabetes Social History Smoking and tobacco status: former smoker Alcohol intake: never Household members: friend(s) Housing: House Vitals/I&O/Wt Last Vital Signs Temp 96.4 F L 02/16/21 01:50 Pulse 120 H 02/16/21 02:00 Resp 26 H 02/16/21 02:00 BP 113/72 02/16/21 02:00 Pulse Ox 100 02/16/21 02:00 02/15/21 02/15/21 02/16/21 14:59 22:59 06:59 Intake Total 1000 / 1000 Balance 1000 / 1000 Physical Exam Narrative: EXAM NARRATIVE: Constitutional: Obtunded, Kussmaul breathing, ill-appearing HEENT: Normocephalic, pupils are equal, injected sclera, extremely dry mucous membranes Neck: Supple Respiratory: Tachypneic, shallow Cardiovascular: Tachycardic, regular, capillary refill around 3 seconds all extremities Abdomen: Soft, hypoactive bowel sounds, nondistended, nontender : Normal external genitalia Extremities: No pitting edema Skin: Scattered sores in different stages of healing noted, several are erythematous in the immediate sore only, skin is very dry Neuro: No abnormal movements, reflexes are symmetric Psych: Unresponsive Urinary Catheter Management^: Burger: Cath Placed During This Visit: yes Urinary Catheter Date of Insertion: 02/16/21 Urinary Catheter Time of Insertion: 01:17 Data : 02/16/21 00:11 Other data: Laboratory Results Specimen Type Arterial 02/15/21 22:50 Sample Site Brachial, right 02/15/21 22:50 ABG pH 6.78 (7.35-7.45) L* 02/15/21 22:50 ABG pCO2 10.2 mmHg (35-45) L* 02/15/21 22:50 ABG pO2 161.0 mmHg (80.0-100.0) H 02/15/21 22:50 ABG HCO3 1.5 mmol/L (22-26) L 02/15/21 22:50 ABG Base Excess -32.7 mmol/L (-2.0-2.0) L 02/15/21 22:50 Hasmukh Test N/a 02/15/21 22:50 Hematocrit 42.9 % (42-52) 02/15/21 22:50 O2 Delivery Device Room air 02/15/21 22:50 Head Of Ethics And Compliance ID [email or web address] 02/15/21 22:50 Sodium 141 mmol/L (136-145) 02/16/21 00:11 Potassium 6.5 mmol/L (3.5-5.1) H* 02/16/21 00:11 Chloride 102 mmol/L (98-107) 02/16/21 00:11 Carbon Dioxide 3 mmol/L (22-29) L* 02/16/21 00:11 Anion Gap 42.5 (5-19) H 02/16/21 00:11 BUN 31 mg/dL (6-20) H 02/16/21 00:11 Creatinine 1.7 mg/dL (0.7-1.2) H 02/16/21 00:11 GFR Calculation 50.2 mL/min (90-130) L 02/16/21 00:11 Glucose 650 mg/dL (65-115) H* 02/16/21 00:11 Calculated Osmolality 329 mOsm/kg (285-295) H 02/16/21 00:11 Calcium 7.7 mg/dL (8.5-10.5) L 02/16/21 00:11 A&P Assessment and plan (1) DKA (diabetic ketoacidoses): Status: Acute Qualifiers: Diabetes mellitus complication detail: with coma Diabetes mellitus type: type 1 Qualified Code(s): E10.11 - Type 1 diabetes mellitus with ketoacidosis with coma (2) Uncontrolled type 1 diabetes mellitus: Status: Chronic Additional A&P Information Inpatient admission ICU care Insulin drip Aggressive fluids Serial lab Electrolyte replacement PPI Supportive care otherwise DVT prophylaxis: Lovenox Anticipated Disposition: Home Code Status: Full code Attestations Medical Necessity Statement*: Anticipated stay greater than two midnights in a patient with recurrent severe DKA requiring aggressive intervention to sustain life Coding Level of Care Code Acute Director Of Strategic Programs for [facility] Diagnoses DKA (diabetic ketoacidoses) E10.11 Diabetes mellitus complication detail: with coma Diabetes mellitus type: type 1 Uncontrolled type 1 diabetes mellitus E10.65
[2021-02-16 02:25] LABS: Glucose Point of Care 478 mg/dL (70-110)
[2021-02-16 02:46] LABS: Base Excess ABG -22.8 mmol/L (-2.0-2.0); Blood Gas Allen Test Pos; Blood Gas Operator Identificat JB; Blood Gas Sample Site Brachial, right; Blood Gas Sample Type Arterial; HGB O2 Sat 96.8 % (95-100); Ionized Calcium Level - ABG 1.2 mmol/L (1.1-1.4); Methemoglobin 1.1 % (0.4-1.5); Oxygen Device ROOM AIR; Oxygen Saturation ABG 97.9; Potassium Level - ABG 4.8 mmol/L (3.5-5.0); Total Hemoglobin 14.3 g/dL (14-18)
[2021-02-16 02:47] LABS: ABG PCO2 12.1 mmHg (35-45); ABG PH Result 7.13 (7.35-7.45)
[2021-02-16] MEDS: enoxaparin 40 mg/0.4 mL Syringe SUBCUT (03:14)
[2021-02-16 03:15] LABS: Glucose Point of Care 346 mg/dL (70-110)
[2021-02-16] MEDS: sodium chloride 0.9% 1,000 ML 200 ML IV (03:16)
[2021-02-16 03:46] LABS: Lipase 945 U/L (13-60)
[2021-02-16 03:52] LABS: Basophils # 0.1 10^3/uL (0.0-0.1); Basophils % 0.4 %; Hematocrit 48.2 % (42.0-52.0); Hemoglobin 15.1 g/dL (11.7-16.6); Lymphocytes # 0.7 10^3/uL (0.8-4.8); Lymphocytes % 3.1 %; Mean Corpuscular HGB Conc 31.3 g/dL (30.0-36.0); Mean Corpuscular Hemoglobin 32.5 pg (28.0-34.0); Mean Corpuscular Volume 103.7 fL (80-94); Mean Platelet Volume 9.5 fL (7.4-10.4); Monocytes # 1.5 10^3/uL (0.2-0.9); Monocytes % 6.6 %; Neutrophils # 19.25 10^3/uL (1.8-7.7); Neutrophils % 88.3 %; Nucleated Red Blood Cells % 0 %; Platelet Count 182 10^3/cmm (130-400); Red Blood Count 4.65 10^6/uL (4.1-5.3); Red Cell Distribution Width 12.3 % (12.1-15.1); White Blood Count 21.8 10^3/uL (4.0-10.0)
[2021-02-16 04:05] LABS: Glucose Point of Care 265 mg/dL (70-110)
--- NOTE | 2021-02-16 04:11 | PC.NURSE ---
Notified Physician About Blood Sugar Notified Dr. Jackson about patient blood sugar of 265 at 0400. Let her know that per protocol the insulin drip would be titrated down to 10.25 units from previous rate of 11.[address] Jackson gave verbal orders to titrate the insulin drip down to 8 units until the recently drawn labs come back.
[2021-02-16 05:04] LABS: Glucose Point of Care 178 mg/dL (70-110)
[2021-02-16 05:06] LABS: Aspartate Amino Transferase 41 U/L (0-40); Blood Urea Nitrogen 27 mg/dL (6-20); Calcium 8.3 mg/dL (8.5-10.5); Glomerular Filtration Rate 62.8 mL/min (90-130); Glucose 375 mg/dL (65-115); Magnesium 2.7 mg/dL (1.7-2.3); Osmolality Calculated 326 mOsm/kg (285-295); Phosphorus 4.6 mg/dL (2.5-4.5); Total Protein 6.3 g/dL (6.6-8.7)
[2021-02-16 05:07] LABS: Carbon Dioxide 4 mmol/L (22-29)
[2021-02-16] MEDS: dextrose 5%-sod chloride 0.9% 1,000 ML 150 ML IV ×2 (05:07→12:43)
[2021-02-16 05:09] LABS: Chloride 112 mmol/L (98-107); Sodium 148 mmol/L (136-145); Total Bilirubin 0.2 mg/dL (0.15-1.2)
[2021-02-16 05:10] LABS: Alanine Aminotransferase 28 U/L (0-41); Alkaline Phosphatase 78 IU/L (40-130); Globulin 2.3 g/dL (1.3-4.6)
[2021-02-16 05:53] LABS: ABG PCO2 23.5 mmHg (35-45); ABG PH Result 7.27 (7.35-7.45); Arterial Blood Gas Hematocrit 42.9 % (42-52); Base Excess ABG -14.3 mmol/L (-2.0-2.0); Blood Gas Operator Identificat JB; Blood Gas Sample Site Brachial, right; Blood Gas Sample Type Arterial; HCO3 ABG 10.7 mmol/L (22-26); Oxygen Device ROOM AIR
[2021-02-16 06:02] LABS: Glucose Point of Care 190 mg/dL (70-110)
[2021-02-16 07:21] LABS: Glucose Point of Care 151 mg/dL (70-110)
--- NOTE | 2021-02-16 07:56 | PC.NURSE ---
Shift Summary Patient reports no pain all evening and slept most of the night. He is more alert and oriented this morning compared to last night. Insulin drip is infusing in the right forearm IV site at 7.3 mls/hr and D5% with NS is infusing at 150 mls/hr. Patient on room air. Patient had 3650 mls out of urine last evening.
[2021-02-16 08:12] LABS: Glucose Point of Care 151 mg/dL (70-110)
--- NOTE | 2021-02-16 08:33 | P.PN_ITS ---
Subjective Subjective: Interval history: Seen multiple times during the day. Admitted overnight. H&P and labs noted. Examination patient is dehydrated, drowsy but coherent. He states he is not r eally sure why he is off insulin pump but think it was stopped in the hospital in few previous admissions. On my conversation with patient's mother 12 this discontinued on his 2 admissions prior. As per the mother patient lives with her girlfriend who has left town last night as she works on the road. Examination patient is dehydrated, drowsy, states he is thirsty denies any nausea, vomiting, diarrhea. Denies any chills or fevers. During the day it was reported by the nurse that he was seen drinking from the urinal because he was thirsty. Vitals/I&O/Wt Last Vital Signs Temp 98.0 F 02/16/21 04:00 Pulse 100 02/16/21 06:45 Resp 17 02/16/21 06:45 BP 96/46 02/16/21 06:45 Pulse Ox 96 02/16/21 06:45 02/15/21 02/16/21 02/16/21 22:59 06:59 14:59 Intake Total 1041.272 / 1041.272 9.1 / 9.1 Output Total 3650 / 3650 Balance -2608.728 / -2608.728 9.1 / 9.1 Weight last 48 hrs Weight 59.449 kg Physical Exam Narrative: EXAM NARRATIVE: General: No acute distress, AO x3, dehydrated, drowsy HEENT: PERRLA, pupils bilaterally equal and reactive Chest: Normal vesicular breath sounds, no added sounds, equal good air entry bilaterally CVS: S1-S2 regular, no murmurs, no tachycardia, no gallops, no rubs Abdomen: Soft, nontender, no organomegaly, bowel sounds present Neuro: No focal deficits, no facial deformity, AO x3, power 5/5 in all limbs Urinary Catheter Management^: Burger: Cath Placed During This Visit: yes Reason for Continuing Indwelling Catheter: Accurate Measurement of Urinary Output in Critically Ill Patients Urinary Catheter Date of Insertion: 02/16/21 Urinary Catheter Time of Insertion: 01:17 Data : 02/16/21 03:42 02/16/21 13:05 A&P Assessment and plan (1) DKA (diabetic ketoacidoses): Status: Acute Qualifiers: Diabetes mellitus complication detail: with coma Diabetes mellitus type: type 1 Qualified Code(s): E10.11 - Type 1 diabetes mellitus with ketoacidosis with coma (2) Uncontrolled type 1 diabetes mellitus: Status: Chronic (3) BALWINDER (acute kidney injury): Status: Acute (4) Methamphetamine abuse: Status: Acute (5) High anion gap metabolic acidosis: Status: Acute (6) Pancreatitis: Status: Acute Additional A&P Information DKA: Check BMP every 4 hours. For now continue with insulin drip and D5 NS at 150 cc/h. Monitor potassium given level around 4. If anion gap closes will switch to fluid to NS or half NS as per the sodium levels and stop the insulin drip and change to insulin sliding scale at high dose protocol. I spoke to the mother regarding need of insulin pump again. We will try to reattach insulin pump prior to discharge. Ice chips for now. N.p.o. otherwise. Check HbA1c. Check drug screen. Leukocytosis: Patient is in DKA. Leukocytosis could be because of dehydration versus reactive but cannot rule out infective source as well. Check blood cultures, procalcitonin, MRSA swab. For now start patient on Zosyn. Will de-escalate antibiotics as per the culture results and clinical picture in next 24 hours. Acute kidney injury: Most likely secondary to DKA and dehydration. Resolving. Continue with IV fluids. Medical reconciliation done for nephrotoxic drugs. Full code. Lovenox for DVT prophylaxis. Ice chips, n.p.o. otherwise. Protonix for PUD prophylaxis. Oral care. Discharge planning: Most likely discharge home with family. Most likely patient will require insulin pump prior to discharge. Attestations Medical Necessity Statement*: Requires further hospitalization for management of severe DKA. Critical Care Time: The high probability of a clinically significant, sudden or life threatening deterioration of the patient's [endocrine, renal] system(s) required my full and direct attention, intervention and personal management. The critical care time is as shown. This time is in addition to time spent performing any reported procedures but includes the following: [x] Data and vital sign review and interpretation [x] Patient assessment, examination and intervention [x] Documentation [x] Medication orders and management Critical Care Time (min): 80 Coding Level of Care Code Acute Event Marketing Representative for [facility] Diagnoses DKA (diabetic ketoacidoses) E10.11 Diabetes mellitus complication detail: with coma Diabetes mellitus type: type 1 Uncontrolled type 1 diabetes mellitus E10.65 BALWINDER (acute kidney injury) N17.9 Methamphetamine abuse F15.10 High anion gap metabolic acidosis E87.2 Pancreatitis K85.90
--- NOTE | 2021-02-16 09:02 | PC.PHAR ---
PT STATES HE TAKES CARE OF HIS OWN MEDICATIONS-PT STATES HE USED BOTH HIS INSULINS YESTERDAY-PT HASNT PICKED THE LANTUS VIAL FROM [facility] FILLED ON 02/12/21-PT STATES HE HAS STILL BEEN USING THE SOLOSTAR PEN BUT USING 24 UNITS BID SOLOSTAR LAST FILLED 12/30/20 FOR 20 UNITS BID-PT STATES HE USES HIS NOVOLOG FLEXPEN U-100 SLIDING SCALE TID RX LAST FILLED ON 01/22/21
[2021-02-16 09:30] LABS: Procalcitonin 4.05 ng/mL (0-0.5); Thyroid Stimulating Hormone 0.41 uIU/mL (0.27-4.20)
[2021-02-16 09:41] LABS: Anion Gap 16.9 (5-19); Blood Urea Nitrogen 21 mg/dL (6-20); Calcium 7.5 mg/dL (8.5-10.5); Carbon Dioxide 16 mmol/L (22-29); Chloride 122 mmol/L (98-107); Glomerular Filtration Rate 119.8 mL/min (90-130); Glucose 153 mg/dL (65-115); Iron 16 ug/dL (59-158); Magnesium 2.3 mg/dL (1.7-2.3); Osmolality Calculated 318 mOsm/kg (285-295); Potassium 3.9 mmol/L (3.5-5.1); Sodium 151 mmol/L (136-145); Total Iron Binding Capacity 228 mcg/dl; Unsaturated Iron Binding 212 ug/dL (112-347)
[2021-02-16 10:05] LABS: Bilirubin Urine Neg (Negative); Blood Urine Neg (Negative); Glucose Urine UA Trace (Normal); Ketones Urine 2+ (Negative); Leukocyte Esterase Urine Negative (Negative); Nitrate Urine Negative (Negative); Protein Urine Neg (Negative); Urine Appearance Clear (CLEAR); Urine Color Yellow (Yellow); Urobilinogen Urine Norm (Negative); pH Urine 5 (5-7)
[2021-02-16 10:14] LABS: Amphetamines Screen Urine Positive (Negative); Barbiturates Screen Urine Negative (Negative); Benzodiazepines Screen Urine Negative (Negative); Cocaine Screen Urine Negative (Negative); Opiate Screen Urine Negative (Negative); PCP Screen Urine Negative (Negative); THC Screen Urine Negative (Negative)
[2021-02-16 10:21] LABS: Add Urine Culture? No; Fine Granular Casts Urine 0-4 /lpf
[2021-02-16 11:19] LABS: Glucose Point of Care 157 mg/dL (70-110)
[2021-02-16] MEDS: pantoprazole 40 mg SDV IVP (11:52)
[2021-02-16] MEDS: piperacillin-tazobactam 3.375 GM in sodium chloride 0.9% (plus) 50 ML IV ×2 (11:53→18:26)
[2021-02-16 12:02] LABS: Glucose Point of Care > 600 mg/dL (70-110)
[2021-02-16 12:02] LABS: Glucose Point of Care 515 mg/dL (70-110)
[2021-02-16 12:02] LABS: Glucose Point of Care > 600 mg/dL (70-110)
[2021-02-16 12:18] LABS: Glucose Point of Care 100 mg/dL (70-110)
[2021-02-16 12:18] LABS: Glucose Point of Care 140 mg/dL (70-110)
[2021-02-16 12:18] LABS: Glucose Point of Care 121 mg/dL (70-110)
[2021-02-16 13:08] LABS: Glucose Point of Care 99 mg/dL (70-110)
[2021-02-16 13:41] LABS: Anion Gap 16.3 (5-19); Blood Urea Nitrogen 18 mg/dL (6-20); Calcium 7.6 mg/dL (8.5-10.5); Carbon Dioxide 15 mmol/L (22-29); Chloride 121 mmol/L (98-107); Glomerular Filtration Rate 139.8 mL/min (90-130); Glucose 98 mg/dL (65-115); Magnesium 2.3 mg/dL (1.7-2.3); Osmolality Calculated 308 mOsm/kg (285-295); Phosphorus 2.9 mg/dL (2.5-4.5); Potassium 4.3 mmol/L (3.5-5.1); Sodium 148 mmol/L (136-145)
[2021-02-16] MEDS: sodium chloride 0.45% 1,000 ML 75 ML IV (13:42)
--- NOTE | 2021-02-16 14:00 | PC.NURSE ---
Pt assisted to toilet to have BM. Privacy provided. When toilet flush heard, checked on pt. Pt observed holding Graduate used to measure urine from Burger catheter. It was had water in it moving away from pt's face. The toilet sprayer noted to be on. Asked pt if he had drank that, pt replied YES. Explained to pt not to do that again, it is used for urine, it might make juanjo sick drinking from it. Dr Padron notified via telephone of incident. New orders received/entered.
[2021-02-16 14:35] LABS: Procalcitonin 2.56 ng/mL (0-0.5)
[2021-02-16] MEDS: insulin glargine 100 units/1 mL 24 UNIT SUBCUT ×2 (15:04→17:40)
[2021-02-16 16:55] LABS: Anion Gap 21.3 (5-19); Blood Urea Nitrogen 16 mg/dL (6-20); Calcium 7.8 mg/dL (8.5-10.5); Carbon Dioxide 14 mmol/L (22-29); Chloride 110 mmol/L (98-107); Glomerular Filtration Rate 119.8 mL/min (90-130); Glucose 347 mg/dL (65-115); Osmolality Calculated 307 mOsm/kg (285-295); Phosphorus 2.8 mg/dL (2.5-4.5); Potassium 4.3 mmol/L (3.5-5.1); Sodium 141 mmol/L (136-145)
[2021-02-16 17:33] LABS: Glucose Point of Care 362 mg/dL (70-110)
--- NOTE | 2021-02-16 18:27 | PC.NURSE ---
All car and charting performed by FILIPE Flor, nurse residency, supervised directly by this nurse.
--- NOTE | 2021-02-16 19:10 | PC.NURSE ---
Bedside report given to RIKI Garcia.
--- NOTE | 2021-02-16 19:19 | PC.NURSE ---
Shift summary: Pt started the day off lethargic and flushed. His teeth were covered with a thick brown film. He did not want to brush his teeth stating it did not matter. Dr Padron made rounds. Natali ordered, urine and MRSA sample collect and sent to lab Pt then allowed Ice chips sparingly. Pt non-compliant, he would chug ice down within 5 minutes then ask for more. Insulin gtt and D5/NS infusing this am. Insulin gtt stopped and IV fluids changed to 0.45NS at 1400ish. Pt non-compliant with ice chips only, he collected water from the toilet sprayer witha urine contaminated graduate and drank form it. Dr Padron notified. Pt's insulin changed at this time to Sliding scale and long-acting Lantus. Diet started Consistent carb /GI soft. Pt has been more alert this evening watching TV and guzzling water. Urine output of 2100ml noted this shift. Anion gap increased this afternoon 21.5. No complaints of nausea or vomiting throughout shift. Pt remembered his Insulin pump to be a Omnipump, which he stated it was mailed to him from him prior Polishing Machine Tender who is in [place].
--- NOTE | 2021-02-16 19:30 | PC.NURSE ---
Admission Assessment Completed Patient was more alert and oriented tonight than when he came in on at 0140, admission assessment was completed at 1900 with all information gathered from the patient.
[2021-02-16 19:59] LABS: Glucose Point of Care 323 mg/dL (70-110)
[2021-02-16 21:46] LABS: Glucose Point of Care 288 mg/dL (70-110)
[2021-02-16 21:57] LABS: Anion Gap 15.4 (5-19); Blood Urea Nitrogen 16 mg/dL (6-20); Calcium 8.2 mg/dL (8.5-10.5); Carbon Dioxide 19 mmol/L (22-29); Chloride 103 mmol/L (98-107); Glomerular Filtration Rate 139.8 mL/min (90-130); Glucose 276 mg/dL (65-115); Magnesium 1.7 mg/dL (1.7-2.3); Osmolality Calculated 289 mOsm/kg (285-295); Phosphorus 1.1 mg/dL (2.5-4.5); Potassium 3.4 mmol/L (3.5-5.1); Sodium 134 mmol/L (136-145)
[2021-02-17] VITALS (12 sets, daily range): BP systolic 91–130; BP diastolic 62–86; PULSE 76–102; RESP 7–22; TEMP 36.7–37; O2SAT 92–99; BMI 23.0
[2021-02-17] MEDS: piperacillin-tazobactam 3.375 GM in sodium chloride 0.9% (plus) 50 ML IV (02:21)
[2021-02-17] MEDS: enoxaparin 40 mg/0.4 mL Syringe SUBCUT (02:21)
[2021-02-17] MEDS: sodium chloride 0.45% 1,000 ML 75 ML IV (02:21)
[2021-02-17 02:33] LABS: Glucose Point of Care 180 mg/dL (70-110)
[2021-02-17 04:03] LABS: Basophils % 0.2 %; Eosinophils % 0.5 %; Hematocrit 36.6 % (42.0-52.0); Hemoglobin 12.6 g/dL (11.7-16.6); Lymphocytes # 1.4 10^3/uL (0.8-4.8); Lymphocytes % 16.3 %; Mean Corpuscular HGB Conc 34.4 g/dL (30.0-36.0); Mean Corpuscular Hemoglobin 31.3 pg (28.0-34.0); Mean Platelet Volume 9.6 fL (7.4-10.4); Monocytes # 0.6 10^3/uL (0.2-0.9); Monocytes % 6.5 %; Neutrophils % 75.5 %; Nucleated Red Blood Cells % 0 %; Platelet Count 154 10^3/cmm (130-400); Red Blood Count 4.02 10^6/uL (4.1-5.3); Red Cell Distribution Width 12.5 % (12.1-15.1); White Blood Count 8.6 10^3/uL (4.0-10.0)
[2021-02-17 04:23] LABS: Estmated Average Glucose 295; Hemoglobin A1C 11.9 % (4.0-6.0)
[2021-02-17 04:25] LABS: Alanine Aminotransferase 23 U/L (0-41); Albumin Level 3.4 g/dL (3.5-5.2); Alkaline Phosphatase 57 IU/L (40-130); Anion Gap 12.3 (5-19); Aspartate Amino Transferase 21 U/L (0-40); Blood Urea Nitrogen 13 mg/dL (6-20); Calcium 8.3 mg/dL (8.5-10.5); Carbon Dioxide 23 mmol/L (22-29); Chloride 107 mmol/L (98-107); Globulin 1.6 g/dL (1.3-4.6); Glucose 164 mg/dL (65-115); Osmolality Calculated 292 mOsm/kg (285-295); Potassium 3.3 mmol/L (3.5-5.1); Sodium 139 mmol/L (136-145); Total Bilirubin 0.3 mg/dL (0.15-1.2)
[2021-02-17 05:20] LABS: Glucose Point of Care 189 mg/dL (70-110)
--- NOTE | 2021-02-17 07:01 | PC.NURSE ---
Shift Summary Patient had an uneventful night. Insulin drip was turned off upon this nurse arrival to unit and remained off all evening. Blood sugar was 189 at 0518 this morning. Patient is alert and oriented x4 and had no complaints of pain all evening. He is on room air. NS 1/2 is infusing at 75 mls/hr in the right AC IV site and the left AC IV site is saline locked. Patient was set up for self bath and received a complete linen change. Patient had 3650 mls of clear pale yellow urine out all evening and he had no bowel movement. Patient has good appetite, ate two sandwiches and two cheese sticks last night.
[2021-02-17 07:28] LABS: Glucose Point of Care 150 mg/dL (70-110)
[2021-02-17] MEDS: insulin glargine 100 units/1 mL 24 UNIT SUBCUT (08:01)
[2021-02-17] MEDS: pantoprazole 40 mg SDV IVP (08:20)
--- NOTE | 2021-02-17 09:10 | PM.DCS ---
Discharge Providers Date of Admission: 02/16/21 00:14 Date of Discharge: February 17, 2021 Attending Provider at Admission: Maryana Jackson MD Attending Provider at Discharge: Jase Luna MD Primary Care Provider: MARGE Castellano Diagnoses at Discharge Discharge Diagnosis (1) DKA (diabetic ketoacidoses): Status: Acute Qualifiers: Diabetes mellitus complication detail: with coma Diabetes mellitus type: type 1 Qualified Code(s): E10.11 - Type 1 diabetes mellitus with ketoacidosis with coma (2) Uncontrolled type 1 diabetes mellitus: Status: Chronic (3) BALWINDER (acute kidney injury): Status: Acute (4) Methamphetamine abuse: Status: Acute (5) High anion gap metabolic acidosis: Status: Acute (6) Pancreatitis: Status: Acute Reason for Visit Reason for Visit: DKA Hospital Course Hospital Course 25-year-old male with past medical history of type 1 diabetes, recurrent admissions with diabetic ketoacidosis who was previously supposed to be on insulin pump which was discontinued 2 months ago because of faulty insulin pump. He has not been able to get in to see endocrine office as the doctor is on maternity leave and will be back in April. As per Salvatore he has been taking 24 units of Lantus twice daily and insulin as per sliding scale every 4 hours. He presented to the hospital on February 16 this time and altered condition, dehydrated with blood sugars found to be in 650 with anion gap of 42 in the ER. He was under the hospital and started on insulin drip as per the DKA protocol. He responded well to the treatment anion gap closed and he was advanced on the diet. His blood sugar remained fairly stable while in hospital. During hospitalization patient of drug screen was positive for methamphetamines. Patient was counseled in detail to abstain from the recreational drugs. He is also found to be in acute kidney injury which resolved with hydration. We will try to get in touch with the endocrine office regarding the insulin pump but was next successful. Patient is been discharged in hemodynamically stable condition with advised to take 35 units of Lantus morning and evening and insulin aspart sliding scale premeals 3 times a day for now till the time his insulin pump is fixed with the endocrine office. Patient states he has an appointment with an electrical machine builder at [facility] on February 19. He has been advised and counseled in detail to make sure he keeps up with the appointment. His hospital stay was otherwise unremarkable. Physical Exam Narrative: EXAM NARRATIVE: General: No acute distress, AO x3, HEENT: PERRLA, pupils bilaterally equal and reactive Chest: Normal vesicular breath sounds, no added sounds, equal good air entry bilaterally CVS: S1-S2 regular, no murmurs, no tachycardia, no gallops, no rubs Abdomen: Soft, nontender, no organomegaly, bowel sounds present Neuro: No focal deficits, no facial deformity, AO x3, power 5/5 in all limbs Urinary Catheter Management^: Burger: Cath Placed During This Visit: yes Reason for Continuing Indwelling Catheter: Accurate Measurement of Urinary Output in Critically Ill Patients Urinary Catheter Date of Insertion: 02/16/21 Urinary Catheter Time of Insertion: 01:17 Discharge Data Data Completed and Pending: Pending at discharge Category Date Time Status Blood Culture Sta t Lab 02/16/21 08:33 Results MRSA by PCR Jadiel ne Lab 02/16/21 13:45 Received Labs from last 24 hours 02/17/21 02/17/21 02/17/21 07:24 05:18 03:10 WBC RBC Hgb Hct MCV MCH MCHC RDW Plt Count MPV Neut % (Auto) Lymph % (Auto) [place] % (Auto) Eos % (Auto) Baso % (Auto) Neut # (Auto) Lymph # (Auto) [place] # (Auto) Eos # (Auto) Baso # (Auto) Nucleated RBC % (a uto) Nucleated RBCs # Sodium Potassium Chloride Carbon Dioxide Anion Gap BUN Creatinine GFR Calculation Glucose POC Glucose 150 H 189 H Estimat Average Gl ucose 295 Hemoglobin A1c 11.9 H Calculated Osmolal ity Calcium Phosphorus Magnesium Iron TIBC % Saturation Unsat Iron Binding Total Bilirubin AST ALT Alkaline Phosphata se Total Protein Albumin Globulin Procalcitonin TSH Urine Color Urine Appearance Urine pH Ur Specific Gravit y Urine Protein Urine Glucose (UA) Urine Ketones Urine Blood Urine Nitrate Urine Bilirubin Urine Urobilinogen Ur Leukocyte Mini ase Urine RBC Urine WBC Ur Squamous Epith Cells Amorphous Sediment Urine Bacteria Fine Granular Cast s Urine Opiates Scre en Ur Barbiturates Sc reen Ur Phencyclidine S crn Ur Amphetamines Sc reen U Benzodiazepines Scrn Urine Cocaine Scre en U Marijuana (THC) Screen 02/17/21 02/17/21 02/17/21 03:10 03:10 02:26 WBC 8.6 RBC 4.02 L Hgb 12.6 Hct 36.6 L MCV 91.0 D MCH 31.3 MCHC 34.4 D RDW 12.5 Plt Count 154 MPV 9.6 Neut % (Auto) 75.5 Lymph % (Auto) 16.3 [place] % (Auto) 6.5 Eos % (Auto) 0.5 Baso % (Auto) 0.2 Neut # (Auto) 6.50 Lymph # (Auto) 1.4 [place] # (Auto) 0.6 Eos # (Auto) 0.0 Baso # (Auto) 0.0 Nucleated RBC % (a uto) 0 Nucleated RBCs # 0.0 Sodium 139 Potassium 3.3 L Chloride 107 Carbon Dioxide 23 Anion Gap 12.3 BUN 13 Creatinine 0.6 L GFR Calculation 167.0 H Glucose 164 H POC Glucose 180 H Estimat Average Gl ucose Hemoglobin A1c Calculated Osmolal ity 292 Calcium 8.3 L Phosphorus Magnesium Iron TIBC % Saturation Unsat Iron Binding Total Bilirubin 0.3 AST 21 ALT 23 Alkaline Phosphata se 57 Total Protein 5.0 L D Albumin 3.4 L Globulin 1.6 Procalcitonin TSH Urine Color Urine Appearance Urine pH Ur Specific Gravit y Urine Protein Urine Glucose (UA) Urine Ketones Urine Blood Urine Nitrate Urine Bilirubin Urine Urobilinogen Ur Leukocyte Mini ase Urine RBC Urine WBC Ur Squamous Epith Cells Amorphous Sediment Urine Bacteria Fine Granular Cast s Urine Opiates Scre en Ur Barbiturates Sc reen Ur Phencyclidine S crn Ur Amphetamines Sc reen U Benzodiazepines Scrn Urine Cocaine Scre en U Marijuana (THC) Screen 02/16/21 02/16/21 02/16/21 21:42 21:23 19:55 WBC RBC Hgb Hct MCV MCH MCHC RDW Plt Count MPV Neut % (Auto) Lymph % (Auto) [place] % (Auto) Eos % (Auto) Baso % (Auto) Neut # (Auto) Lymph # (Auto) [place] # (Auto) Eos # (Auto) Baso # (Auto) Nucleated RBC % (a uto) Nucleated RBCs # Sodium 134 L Potassium 3.4 L Chloride 103 Carbon Dioxide 19 L Anion Gap 15.4 BUN 16 Creatinine 0.7 GFR Calculation 139.8 H Glucose 276 H POC Glucose 288 H 323 H Estimat Average Gl ucose Hemoglobin A1c Calculated Osmolal ity 289 Calcium 8.2 L Phosphorus 1.1 L D Magnesium 1.7 Iron TIBC % Saturation Unsat Iron Binding Total Bilirubin AST ALT Alkaline Phosphata se Total Protein Albumin Globulin Procalcitonin TSH Urine Color Urine Appearance Urine pH Ur Specific Gravit y Urine Protein Urine Glucose (UA) Urine Ketones Urine Blood Urine Nitrate Urine Bilirubin Urine Urobilinogen Ur Leukocyte Mini ase Urine RBC Urine WBC Ur Squamous Epith Cells Amorphous Sediment Urine Bacteria Fine Granular Cast s Urine Opiates Scre en Ur Barbiturates Sc reen Ur Phencyclidine S crn Ur Amphetamines Sc reen U Benzodiazepines Scrn Urine Cocaine Scre en U Marijuana (THC) Screen 02/16/21 02/16/21 02/16/21 17:28 16:24 13:05 WBC RBC Hgb Hct MCV MCH MCHC RDW Plt Count MPV Neut % (Auto) Lymph % (Auto) [place] % (Auto) Eos % (Auto) Baso % (Auto) Neut # (Auto) Lymph # (Auto) [place] # (Auto) Eos # (Auto) Baso # (Auto) Nucleated RBC % (a uto) Nucleated RBCs # Sodium 141 148 H Potassium 4.3 4.3 Chloride 110 H 121 H Carbon Dioxide 14 L 15 L Anion Gap 21.3 H 16.3 BUN 16 18 Creatinine 0.8 0.7 GFR Calculation 119.8 139.8 H Glucose 347 H 98 POC Glucose 362 H Estimat Average Gl ucose Hemoglobin A1c Calculated Osmolal ity 307 H 308 H Calcium 7.8 L 7.6 L Phosphorus 2.8 2.9 Magnesium 2.0 2.3 Iron TIBC % Saturation Unsat Iron Binding Total Bilirubin AST ALT Alkaline Phosphata se Total Protein Albumin Globulin Procalcitonin 2.56 H TSH Urine Color Urine Appearance Urine pH Ur Specific Gravit y Urine Protein Urine Glucose (UA) Urine Ketones Urine Blood Urine Nitrate Urine Bilirubin Urine Urobilinogen Ur Leukocyte Mini ase Urine RBC Urine WBC Ur Squamous Epith Cells Amorphous Sediment Urine Bacteria Fine Granular Cast s Urine Opiates Scre en Ur Barbiturates Sc reen Ur Phencyclidine S crn Ur Amphetamines Sc reen U Benzodiazepines Scrn Urine Cocaine Scre en U Marijuana (THC) Screen 02/16/21 02/16/21 02/16/21 13:04 12:11 12:10 WBC RBC Hgb Hct MCV MCH MCHC RDW Plt Count MPV Neut % (Auto) Lymph % (Auto) [place] % (Auto) Eos % (Auto) Baso % (Auto) Neut # (Auto) Lymph # (Auto) [place] # (Auto) Eos # (Auto) Baso # (Auto) Nucleated RBC % (a uto) Nucleated RBCs # Sodium Cancelled Potassium Cancelled Chloride Cancelled Carbon Dioxide Cancelled Anion Gap Cancelled BUN Cancelled Creatinine Cancelled GFR Calculation Cancelled Glucose Cancelled POC Glucose 99 100 Estimat Average Gl ucose Hemoglobin A1c Calculated Osmolal ity Cancelled Calcium Cancelled Phosphorus Cancelled Magnesium Cancelled Iron TIBC % Saturation Unsat Iron Binding Total Bilirubin AST ALT Alkaline Phosphata se Total Protein Albumin Globulin Procalcitonin TSH Urine Color Urine Appearance Urine pH Ur Specific Gravit y Urine Protein Urine Glucose (UA) Urine Ketones Urine Blood Urine Nitrate Urine Bilirubin Urine Urobilinogen Ur Leukocyte Mini ase Urine RBC Urine WBC Ur Squamous Epith Cells Amorphous Sediment Urine Bacteria Fine Granular Cast s Urine Opiates Scre en Ur Barbiturates Sc reen Ur Phencyclidine S crn Ur Amphetamines Sc reen U Benzodiazepines Scrn Urine Cocaine Scre en U Marijuana (THC) Screen 02/16/21 02/16/21 02/16/21 11:03 10:03 09:17 WBC RBC Hgb Hct MCV MCH MCHC RDW Plt Count MPV Neut % (Auto) Lymph % (Auto) [place] % (Auto) Eos % (Auto) Baso % (Auto) Neut # (Auto) Lymph # (Auto) [place] # (Auto) Eos # (Auto) Baso # (Auto) Nucleated RBC % (a uto) Nucleated RBCs # Sodium Potassium Chloride Carbon Dioxide Anion Gap BUN Creatinine GFR Calculation Glucose POC Glucose 121 H 157 H 140 H Estimat Average Gl ucose Hemoglobin A1c Calculated Osmolal ity Calcium Phosphorus Magnesium Iron TIBC % Saturation Unsat Iron Binding Total Bilirubin AST ALT Alkaline Phosphata se Total Protein Albumin Globulin Procalcitonin TSH Urine Color Urine Appearance Urine pH Ur Specific Gravit y Urine Protein Urine Glucose (UA) Urine Ketones Urine Blood Urine Nitrate Urine Bilirubin Urine Urobilinogen Ur Leukocyte Mini ase Urine RBC Urine WBC Ur Squamous Epith Cells Amorphous Sediment Urine Bacteria Fine Granular Cast s Urine Opiates Scre en Ur Barbiturates Sc reen Ur Phencyclidine S crn Ur Amphetamines Sc reen U Benzodiazepines Scrn Urine Cocaine Scre en U Marijuana (THC) Screen 02/16/21 02/16/21 02/16/21 08:30 08:30 08:25 WBC RBC Hgb Hct MCV MCH MCHC RDW Plt Count MPV Neut % (Auto) Lymph % (Auto) [place] % (Auto) Eos % (Auto) Baso % (Auto) Neut # (Auto) Lymph # (Auto) [place] # (Auto) Eos # (Auto) Baso # (Auto) Nucleated RBC % (a uto) Nucleated RBCs # Sodium 151 H Potassium 3.9 Chloride 122 H Carbon Dioxide 16 L Anion Gap 16.9 BUN 21 H Creatinine 0.8 GFR Calculation 119.8 Glucose 153 H POC Glucose Estimat Average Gl ucose Hemoglobin A1c Calculated Osmolal ity 318 H Calcium 7.5 L Phosphorus 2.0 L D Magnesium 2.3 Iron 16 L TIBC 228 % Saturation 7.0 L Unsat Iron Binding 212 Total Bilirubin AST ALT Alkaline Phosphata se Total Protein Albumin Globulin Procalcitonin 4.05 H TSH 0.41 Urine Color Yellow Urine Appearance Clear Urine pH 5 Ur Specific Gravit y 1.010 Urine Protein Neg Urine Glucose (UA) Trace H Urine Ketones 2+ H Urine Blood Neg Urine Nitrate Negative Urine Bilirubin Neg Urine Urobilinogen Norm Ur Leukocyte Mini ase Negative Urine RBC None Urine WBC None Ur Squamous Epith Cells None Amorphous Sediment Not Reportable Urine Bacteria None Fine Granular Cast s 0-4 H Urine Opiates Scre en Negative Ur Barbiturates Sc reen Negative Ur Phencyclidine S crn Negative Ur Amphetamines Sc reen Positive H U Benzodiazepines Scrn Negative Urine Cocaine Scre en Negative U Marijuana (THC) Screen Negative 02/16/21 02/16/21 02/15/21 01:11 00:28 23:19 WBC RBC Hgb Hct MCV MCH MCHC RDW Plt Count MPV Neut % (Auto) Lymph % (Auto) [place] % (Auto) Eos % (Auto) Baso % (Auto) Neut # (Auto) Lymph # (Auto) [place] # (Auto) Eos # (Auto) Baso # (Auto) Nucleated RBC % (a uto) Nucleated RBCs # Sodium Potassium Chloride Carbon Dioxide Anion Gap BUN Creatinine GFR Calculation Glucose POC Glucose 515 H* > 600 H* > 600 H* Estimat Average Gl ucose Hemoglobin A1c Calculated Osmolal ity Calcium Phosphorus Magnesium Iron TIBC % Saturation Unsat Iron Binding Total Bilirubin AST ALT Alkaline Phosphata se Total Protein Albumin Globulin Procalcitonin TSH Urine Color Urine Appearance Urine pH Ur Specific Gravit y Urine Protein Urine Glucose (UA) Urine Ketones Urine Blood Urine Nitrate Urine Bilirubin Urine Urobilinogen Ur Leukocyte Mini ase Urine RBC Urine WBC Ur Squamous Epith Cells Amorphous Sediment Urine Bacteria Fine Granular Cast s Urine Opiates Scre en Ur Barbiturates Sc reen Ur Phencyclidine S crn Ur Amphetamines Sc reen U Benzodiazepines Scrn Urine Cocaine Scre en U Marijuana (THC) Screen Addt'l Data from Hospital Stay: Laboratory Results WBC 8.6 10^3/uL (4.0- 10.0) 02/17/21 03:10 RBC 4.02 10^6/uL (4.1 -5.3) L 02/17/21 03:10 Hgb 12.6 g/dL (11.7-1 6.6) 02/17/21 03:10 Hct 36.6 % (42.0-52.0 ) L 02/17/21 03:10 MCV 91.0 fL (80-94) D 02/17/21 03:10 MCH 31.3 pg (28.0-34. 0) 02/17/21 03:10 MCHC 34.4 g/dL (30.0-3 6.0) D 02/17/21 03:10 RDW 12.5 % (12.1-15.1 ) 02/17/21 03:10 Plt Count 154 10^3/cmm (130 -400) 02/17/21 03:10 MPV 9.6 fL (7.4-10.4) 02/17/21 03:10 Neut % (Auto) 75.5 % 02/17/21 03:10 Lymph % (Auto) 16.3 % 02/17/21 03:10 [place] % (Auto) 6.5 % 02/17/21 03:10 Eos % (Auto) 0.5 % 02/17/21 03:10 Baso % (Auto) 0.2 % 02/17/21 03:10 Neut # (Auto) 6.50 10^3/uL (1.8 -7.7) 02/17/21 03:10 Lymph # (Auto) 1.4 10^3/uL (0.8- 4.8) 02/17/21 03:10 [place] # (Auto) 0.6 10^3/uL (0.2- 0.9) 02/17/21 03:10 Eos # (Auto) 0.0 10^3/uL (0.0- 0.8) 02/17/21 03:10 Baso # (Auto) 0.0 10^3/uL (0.0- 0.1) 02/17/21 03:10 Nucleated RBC % (a uto) 0 % 02/17/21 03:10 Nucleated RBCs # 0.0 /100WBC 02/17/21 03:10 Specimen Type Arterial 02/16/21 05:38 Sample Site Brachial, right 02/16/21 05:38 ABG pH 7.27 (7.35-7.45) L 02/16/21 05:38 ABG pCO2 23.5 mmHg (35-45) L 02/16/21 05:38 ABG pO2 99.0 mmHg (80.0-1 00.0) 02/16/21 05:38 ABG HCO3 10.7 mmol/L (22-2 6) L 02/16/21 05:38 ABG O2 Saturation 97.9 02/16/21 02:21 ABG Base Excess -14.3 mmol/L (-2. 0-2.0) L 02/16/21 05:38 Hasmukh Test N/a 02/16/21 05:38 A-a O2 Gradient Not Reportable 02/16/21 02:21 Hematocrit 42.9 % (42-52) 02/16/21 05:38 Hgb O2 Saturation 96.8 % (95-100) 02/16/21 02:21 Carboxyhemoglobin 0.0 %THgb (0.4-20 .1) L 02/16/21 02:21 Methemoglobin 1.1 % (0.4-1.5) 02/16/21 02:21 Total Hemoglobin 14.3 g/dL (14-18) 02/16/21 02:21 Sodium 149.0 mmol/L (131 -143) H 02/16/21 02:21 Potassium 4.8 mmol/L (3.5-5 .0) 02/16/21 02:21 Glucose 372.0 mg/dL (70-1 15) H 02/16/21 02:21 Ionized Calcium 1.2 mmol/L (1.1-1 .4) 02/16/21 02:21 O2 Delivery Device Room air 02/16/21 05:38 FiO2 21.0 % 02/16/21 05:38 Frame Welder [employer] ID Ramakrishna 02/16/21 05:38 Sodium 139 mmol/L (136-1 45) 02/17/21 03:10 Potassium 3.3 mmol/L (3.5-5 .1) L 02/17/21 03:10 Chloride 107 mmol/L (98-10 7) 02/17/21 03:10 Carbon Dioxide 23 mmol/L (22-29) 02/17/21 03:10 Anion Gap 12.3 (5-19) 02/17/21 03:10 BUN 13 mg/dL (6-20) 02/17/21 03:10 Creatinine 0.6 mg/dL (0.7-1. 2) L 02/17/21 03:10 GFR Calculation 167.0 mL/min (90- 130) H 02/17/21 03:10 Glucose 164 mg/dL (65-115 ) H 02/17/21 03:10 POC Glucose 150 mg/dL (70-110 ) H 02/17/21 07:24 Estimat Average Gl ucose 295 02/17/21 03:10 Hemoglobin A1c 11.9 % (4.0-6.0) H 02/17/21 03:10 Calculated Osmolal ity 292 mOsm/kg (285- 295) 02/17/21 03:10 Calcium 8.3 mg/dL (8.5-10 .5) L 02/17/21 03:10 Phosphorus 1.1 mg/dL (2.5-4. 5) L D 02/16/21 21:23 Magnesium 1.7 mg/dL (1.7-2. 3) 02/16/21 21:23 Iron 16 ug/dL (59-158) L 02/16/21 08:25 TIBC 228 mcg/dl 02/16/21 08:25 % Saturation 7.0 % (20-50) L 02/16/21 08:25 Unsat Iron Binding 212 ug/dL (112-34 7) 02/16/21 08:25 Total Bilirubin 0.3 mg/dL (0.15-1 .2) 02/17/21 03:10 Direct Bilirubin 0.20 mg/dL (0.00- 0.30) 02/16/21 03:42 AST 21 U/L (0-40) 02/17/21 03:10 ALT 23 U/L (0-41) 02/17/21 03:10 Alkaline Phosphata se 57 IU/L (40-130) 02/17/21 03:10 Total Protein 5.0 g/dL (6.6-8.7 ) L D 02/17/21 03:10 Albumin 3.4 g/dL (3.5-5.2 ) L 02/17/21 03:10 Globulin 1.6 g/dL (1.3-4.6 ) 02/17/21 03:10 Lipase 945 U/L (13-60) H 02/16/21 00:11 Procalcitonin 2.56 ng/mL (0-0.5 ) H 02/16/21 13:05 TSH 0.41 uIU/mL (0.27 -4.20) 02/16/21 08:25 Urine Color Yellow (Yellow) 02/16/21 08:30 Urine Appearance Clear (CLEAR) 02/16/21 08:30 Urine pH 5 (5-7) 02/16/21 08:30 Ur Specific Gravit y 1.010 (1.005-1.0 30) 02/16/21 08:30 Urine Protein Neg (Negative) 02/16/21 08:30 Urine Glucose (UA) Trace (Normal) H 02/16/21 08:30 Urine Ketones 2+ (Negative) H 02/16/21 08:30 Urine Blood Neg (Negative) 02/16/21 08:30 Urine Nitrate Negative (Negati ve) 02/16/21 08:30 Urine Bilirubin Neg (Negative) 02/16/21 08:30 Urine Urobilinogen Norm mg/dL (Negat rosaline) 02/16/21 08:30 Ur Leukocyte Mini ase Negative (Negati ve) 02/16/21 08:30 Urine RBC None /hpf (0-2) 02/16/21 08:30 Urine WBC None /hpf (0-5) 02/16/21 08:30 Ur Squamous Epith Cells None /hpf (0-5) 02/16/21 08:30 Amorphous Sediment Not Reportable 02/16/21 08:30 Urine Bacteria None /hpf (NONE) 02/16/21 08:30 Fine Granular Cast s 0-4 /lpf H 02/16/21 08:30 Urine Opiates Scre en Negative ng/mL (N egative) 02/16/21 08:30 Ur Barbiturates Sc reen Negative ng/mL (N egative) 02/16/21 08:30 Ur Phencyclidine S crn Negative ng/mL (N egative) 02/16/21 08:30 Ur Amphetamines Sc reen Positive ng/mL (N egative) H 02/16/21 08:30 U Benzodiazepines Scrn Negative ng/mL (N egative) 02/16/21 08:30 Urine Cocaine Scre en Negative ng/mL (N egative) 02/16/21 08:30 U Marijuana (THC) Screen Negative ng/mL (N egative) 02/16/21 08:30 Vitals: Last Vital Signs Temp 98.1 F 02/17/21 07:00 Pulse 90 02/17/21 08:00 Resp 15 02/17/21 08:00 BP 113/82 02/17/21 08:00 Pulse Ox 96 02/17/21 08:00 Discharge Plan Discharge Patient Disposition: Home Condition: Stable Prescriptions: New famotidine 20 mg Tablet 20 mg PO BID Qty: 30 RF: 0 Continued (DME) Dexcom G6 Pig Conveyor Operator Misc See Rx Instructions .ROUTE .MEDSUPPLY Qty: 1 RF: 0 (DME) Dexcom G6 Sensor Device See Rx Instructions .ROUTE .MEDSUPPLY Qty: 3 RF: 3 (DME) Dexcom G6 Transmitter Device See Rx Instructions .ROUTE .MEDSUPPLY Qty: 3 RF: 3 Novolog Flexpen U-100 Insulin 100 unit/mL (3 mL) insulin pen See Rx Instructions unit .ROUTE .COMPLEX RF: 0 Changed Lantus U-100 Insulin 100 unit/mL solution 35 unit SUBCUT BID Qty: 0 RF: 0 Discharge Orders: Discharge Order (Routine); Ordered 02/17/21 Ordered By: Jase Luna Referrals: Earlene Titus FNP-C [Primary Care Provider] - 1-3 days Discharge Diet: Diabetic Discharge Activity: Resume usual activity Patient Instructions: Opioid Safety Activity Restrictions/Additional Instructions: Your Lantus has been increased to 35 units morning and evening. Please check your blood sugars before the breakfast, lunch, dinner and take Humalog as per the insulin sliding scale. Please follow-up with your endocrinology office on set appointment February 19. Please abstain from using recreational drugs. Please maintain your hydration. Discharge Attestations Time Spent in Discharge Care*: greater than 30 min Specific Discharge Activities: educating patient, educating and/or supporting family/caregiver, discussing with director case/social workers/dc planners, documenting/other paperwork and evaluating patient/reviewing data Status at Discharge: Cognitive status at discharge: cognitively intact, Behavioral status at discharge: cooperative, Functional status at discharge: independent ambulation Overall status at discharge: patient is back to baseline Quality Metrics Clinical Quality Measures During this hospital stay, did patient experience: None Coding Level of Care Code Acute Chg FW DC note Diagnoses DKA (diabetic ketoacidoses) E10.11 Diabetes mellitus complication detail: with coma Diabetes mellitus type: type 1 Uncontrolled type 1 diabetes mellitus E10.65 BALWINDER (acute kidney injury) N17.9 Methamphetamine abuse F15.10 High anion gap metabolic acidosis E87.2 Pancreatitis K85.90
[2021-02-17] MEDS: famotidine 20 mg Tablet PO (09:17)
--- NOTE | 2021-02-17 09:52 | PC.CHAP ---
Pastoral Care Encounter/Spiritual Assessment Type of Contact [] Declined teletype technician visit [] Patient/Family/Request visit [] Outpatient visit [] Follow-up visit [] Physician referral [] Code/Alert [x] Routine visit [] Staff referral [] Actively dying [] Patient sleeping [] Family support [] [] Out of room [] Palliative care [] [] Receiving care in room [] Pre-surgical visit [] Trauma [] Long length of stay [x] ICU visit [x] Other: diabetic Relational/Emotional Strength [] Patient feels connected with others/family/visitors/staff [] Distress [] Loneliness/isolation [] Abandonment Spirituality of Patient [] Person of Emily [] Attends Rastafarian of their Emily [] Believes in Prayer [] Reads Bible or Temple materials [] There are Spiritual issues to be addressed Rabbit Fancier Interventions [x] Prayer [x] Active listening [x] Non-anxious presence [x] Spiritual/emotional support [] Crisis/trauma care [] Spiritual counseling [] Bereavement support [] Provided bereavement packet [] Provided Bible/devotional materials [] Provided toy/stuffed animal, coloring book to patient or family member [] Provided Communion [] Anointing/[place] [] Salvation [x] Completed spiritual assessment [] Other: Impact on Illness or Injury [] Angry [] Fearful [] Anxious [] Often cries [] Exhaustion [] Unable to work [] Unable to attend confucianism [] Unable to walk/stand [] Unable to read [] Unable to drive [] Unable to eat/drink [] Unable to sleep [] Unable to be with family [] Patient intubated [] Other: Summary patient feeling much stronger... body returning to normal.. Time spent with patient 10 min
--- NOTE | 2021-02-17 11:37 | PC.NURSE ---
Diabetes education Pt given extensive education regarding his type 1 diabetes. Pt is resistant to learning. He was able to prime and start his Insulin Pump on his own with supervision.
== END 2021-02-17 11:38 | disposition home or self-care (01) | DRG 637 ==
LOC: ER 23:06 → ICU 02-16 00:34
PROVIDERS: Admitting Provider Hospitalist; Emergency Provider Emergency Medicine; PCP Nurse Practitioner Family; Visit Provider Student in an Organized Health Care Education/Training Program
DX: E10.11 Type 1 diabetes mellitus with ketoacidosis with coma (principal); K85.90 Acute pancreatitis without necrosis or infection, unspecified; N17.9 Acute kidney failure, unspecified; E87.2 Acidosis; Z96.41 Presence of insulin pump (external) (internal); K21.9 Gastro-esophageal reflux disease without esophagitis; F12.90 Cannabis use, unspecified, uncomplicated; F15.10 Other stimulant abuse, uncomplicated; Z87.891 Personal history of nicotine dependence; E86.0 Dehydration
CPT/HCPCS: 36415; 36416; 36600; 51702; 71045; 80048; 80051; 80053; 80076; 80306; 81001; 82009; 82330; 82803; 82805; 82962; 83036; 83540; 83550; 83605; 83690; 83735; 84100; 84145; 84443; 85025; 87040; 87449; 87641; 96372; C9113; J1650; J1815 ×2; J2543; J7030; J7050

== ENCOUNTER 2021-03-15 12:09 | Inpatient (IN) | payer MEDICARE, MEDICAID, SELFPAY ==
[2021-03-15] VITALS (19 sets, daily range): BP systolic 103–143; BP diastolic 55–82; PULSE 106–155; RESP 15–43; TEMP 36.3–36.6; O2SAT 75–100; BMI 22.1
[2021-03-15] MEDS: sodium chloride 0.9% 1,000 ML 999 ML IV ×4 (12:45→14:27)
[2021-03-15 12:57] LABS: Basophils # 0.3 10^3/uL (0.0-0.1); Basophils % 1.1 %; Eosinophils % 0.2 %; Hematocrit 52.3 % (42.0-52.0); Hemoglobin 15.7 g/dL (11.7-16.6); Lymphocytes # 1.3 10^3/uL (0.8-4.8); Lymphocytes % 5.5 %; Mean Corpuscular Hemoglobin 31.8 pg (28.0-34.0); Mean Corpuscular Volume 105.9 fL (80-94); Mean Platelet Volume 10.3 fL (7.4-10.4); Monocytes # 1.3 10^3/uL (0.2-0.9); Monocytes % 5.3 %; Neutrophils # 20.41 10^3/uL (1.8-7.7); Neutrophils % 84.1 %; Nucleated Red Blood Cells % 0.1 %; Platelet Count 380 10^3/cmm (130-400); Red Blood Count 4.94 10^6/uL (4.1-5.3); Red Cell Distribution Width 12.7 % (12.1-15.1); White Blood Count 24.3 10^3/uL (4.0-10.0)
[2021-03-15 13:01] LABS: Ketone (Acetest) Serum Positive (Negative)
[2021-03-15] MEDS: calcium gluconate 0.1 gm/mL 10% SDV 10mL 1 GM IVP (13:05)
[2021-03-15 13:12] LABS: Alanine Aminotransferase 26 U/L (0-41); Albumin Level 4.3 g/dL (3.5-5.2); Alkaline Phosphatase 115 IU/L (40-130); Blood Urea Nitrogen 27 mg/dL (6-20); C Reactive Protein 1.2 mg/L (0.0-4.9); Chloride 88 mmol/L (98-107); Globulin 2.8 g/dL (1.3-4.6); Sodium 130 mmol/L (136-145); Total Bilirubin 0.2 mg/dL (0.15-1.2); Total Protein 7.1 g/dL (6.6-8.7)
[2021-03-15 13:18] LABS: Amphetamines Screen Urine Negative (Negative); Barbiturates Screen Urine Negative (Negative); Benzodiazepines Screen Urine Negative (Negative); Cocaine Screen Urine Negative (Negative); Glucose Urine UA 4+ (Normal); Ketones Urine 3+ (Negative); Opiate Screen Urine Negative (Negative); PCP Screen Urine Negative (Negative); Protein Urine 1+ (Negative); THC Screen Urine Negative (Negative); Urine Appearance Clear (CLEAR); Urine Color Straw (Yellow); pH Urine 5 (5-7)
[2021-03-15 13:19] LABS: Add Urine Culture? No; Add Urine Microscopic? YES; Amorphous Sediment Urine 1+ /hpf; Bacteria Urine TRACE /hpf; Bilirubin Urine Neg (Negative); Blood Urine 2+ (Negative); Leukocyte Esterase Urine Negative (Negative); Mucus Urine 1+ /hpf; Nitrate Urine Negative (Negative); RBC Urine RARE /hpf (0-2); Urobilinogen Urine Norm (Negative); WBC Urine 0-4 /hpf (0-5)
[2021-03-15 13:20] LABS: Osmolality Calculated 322 mOsm/kg (285-295)
[2021-03-15 13:23] LABS: Alcohol Level < 10 mg/dL (0-10); Lipase 366 U/L (13-60)
[2021-03-15 13:25] LABS: Anion Gap 46.6 (5-19)
[2021-03-15 13:28] LABS: Aspartate Amino Transferase 23 U/L (0-40)
[2021-03-15 13:30] LABS: Carbon Dioxide 3 mmol/L (22-29); Glucose 947 mg/dL (65-115); Potassium 7.6 mmol/L (3.5-5.1)
[2021-03-15 13:31] LABS: Lactate (Lactic Acid level) 4.6 mmol/L (0.5-2.2)
[2021-03-15 13:38] LABS: Blood Gas Operator Identificat AMH; Blood Gas Sample Site Brachial, right; Blood Gas Sample Type Arterial; Oxygen Device ROOM AIR
--- NOTE | 2021-03-15 13:40 | PC.NURSE ---
SODIUM BICARBONATE DRIP WITNESSED AND VERIFIED ACCURATED INFUSION RATE AND AMOUNT WITH RIKI LIM.
[2021-03-15 13:41] LABS: Arterial Blood Gas Hematocrit 45.9 % (42-52); Base Excess ABG -31.1 mmol/L (-2.0-2.0); HCO3 ABG 1.7 mmol/L (22-26)
[2021-03-15 13:45] LABS: ABG PCO2 9.9 mmHg (35-45); ABG PH Result 6.84 (7.35-7.45)
--- NOTE | 2021-03-15 13:46 | ED_ITS ---
HPI - Altered Mental Status General: Chief Complaint: Altered Mental Status Stated Complaint: AMS; SVT; DKA Time Seen by Provider: 03/15/21 12:41 Source: EMS Mode of arrival: EMS Limitations: altered mental status History of Present Illness: HPI narrative: Patient is a 25-year-old male history of type I diabetic who is well-known to this facility and has frequent episodes of DKA. He was brought in to the ED via EMS today. They states that when they arrived at his place of residence after they were called the patient was lethargic and pretty weak. Apparently he told them that he had partied all night and used methamphetamines also. He had been drinking 2 apparently. When they arrived they noted that he was in SVT with a heart rate between 150 and 170. Given 6 mg, then 12 mg, then 12 mg of adenosine but it did not correct. He was also cardioverted 3 times but with no success. He was brought into the emergency department to be evaluated. Prior to cardioversion he was given 250 mg of intravenous ketamine for sedation. MD complaint: altered mental status Onset (ago): hour(s) Timing confirmed by: other (friend) Severity: moderate Context: alcohol abuse and drug abuse Review of Systems General: Reports: 10 or more systems reviewed and unremarkable except in HPI and below [facility] ED PFSH: Medical History DKA (diabetic ketoacidoses) GERD (gastroesophageal reflux disease) Marijuana use Pancreatitis Type 1 diabetes With recurrent admissions for DKA, severe Uncontrolled type 1 diabetes mellitus Surgical History No pertinent past surgical history Family History Other Diabetes Social History Smoking and tobacco status: current every day smoker Alcohol intake: never Substance/Drug Use: former Date of last use: Marijuana abuse Lives independently: Yes Household members: significant other Marital status: Single Current occupational status: unemployed Physical Exam Const: COMMON NORMALS: no acute distress, average body habitus, patient oriented x3, no limitations, healthy appearing, alert and well nourished HENMT: COMMON NORMALS: normocephalic, atraumatic and moist oral mucous membranes HEAD & SCALP: normocephalic and atraumatic Neck/C-Spine: COMMON NORMALS: full ROM, supple, no meningeal signs, no JVD and No carotid bruits Resp: COMMON NORMALS: normal respiratory effort, No retractions, No use of accessory muscles, clear to auscultation bilaterally and percussion normal EFFORT & INSPECTION: Yes tachypneic AUSCULTATION: clear to auscultation bilaterally PERCUSSION: percussion normal Cardio: COMMON NORMALS: no JVD, regular rhythm, S1 normal heart sound present, S2 normal heart sound present, No gallops present (Cardio), No clicks present (Cardio), No murmurs present (Cardio), No rub (Cardio) and Peripheral pulses 2+ throughout RATE: tachycardic RHYTHM: regular rhythm HEART SOUNDS: S1 normal heart sound present and S2 normal heart sound present PERIPHERAL PULSES: Peripheral pulses 2+ throughout GI: COMMON NORMALS: Normal to inspection, nondistended, normoactive bowel sounds present, Soft to palpation, non-tender, No hepatosplenomegaly present, no masses and no bruits PALPATION: Yes Soft to palpation and Yes No hepatosplenomegaly present Extremity: COMMON NORMALS: normal to inspection, full ROM, capillary refill normal, no calf tenderness and no pedal edema Neuro: COMMON NORMALS: patient oriented x3 SENSORIUM/ORIENTATION: Yes alert MENINGEAL SIGNS: Yes no meningeal signs Skin: COMMON NORMALS: no rashes or lesions noted, no wounds, turgor normal, no jaundice, no petechiae and no mottling GENERAL SKIN EXAM: no rashes or lesions noted and turgor normal Urinary Catheter Management^: Burger: Cath Placed During This Visit: yes Urinary Catheter Date of Insertion: 03/15/21 Urinary Catheter Time of Insertion: 13:00 Procedures EJ/Peripheral Line Neck R: Time Out Performed: Yes Skin Cleansed in Sterile Fashion: Yes Size (gauge): 18 IV Secured and Dressing Applied: Yes Patient Tolerated Procedure: well Additional Comments: Patient was severely dehydrated and in DKA and nurse was unable to obtain an IV access. I successfully placed an 18-gauge IV cannula in the right EJ. Course ED course: 1346: Called the patient's motherTatiana at [phone]. There was no answer and I left a message called emergency department. Consultations: Consultation #1: Discussed the patient with Dr. Mariano, hospitalist and he kindly accepted the patient to his service. Time: 13:50 Vital Signs: Vital signs: Vital Signs Temperature 98 F 03/15/21 16:45 Pulse Rate 140 H 03/15/21 17:00 Respiratory Rate 23 H 03/15/21 17:00 Blood Pressure 112/69 03/15/21 17:00 Pulse Oximetry 98 03/15/21 17:00 MDM - Altered Mental Status MDM Narrative: Medical decision making narrative: 25-year-old male who presents to the emergency department with DKA. He is a type I diabetic who is known to be noncompliant. He had been given ketamine prior to arrival also he was not alert on arrival. However he was severely acidotic and required bicarbonate infusion. He also had severe hyperkalemia to go along with his diabetic ketoacidosis. No obvious cause for his symptoms were found. He is admitted to the intensive care unit for further evaluation and management. I tried to call his mother initially and there was no answer, however she called back later and I discussed his case with her. Medical Records: Attestation: I reviewed the patient's medical records. Lab Data: Attestation: I reviewed the patient's lab results. Labs: Lab Results 03/15/21 03/15/21 03/15/21 Range/Units 12:17 12:37 12:37 WBC 24.3 H (4.0-10.0) 10^3/ uL RBC 4.94 (4.1-5.3) 10^6/u L Hgb 15.7 (11.7-16.6) g/dL Hct 52.3 H (42.0-52.0) % MCV 105.9 H (80-94) fL MCH 31.8 (28.0-34.0) pg MCHC 30.0 (30.0-36.0) g/dL RDW 12.7 (12.1-15.1) % Plt Count 380 (130-400) 10^3/c mm MPV 10.3 (7.4-10.4) fL Neut % (Auto) 84.1 % Lymph % (Auto) 5.5 % Weston % (Auto) 5.3 % Eos % (Auto) 0.2 % Baso % (Auto) 1.1 % Neut # (Auto) 20.41 H (1.8-7.7) 10^3/u L Lymph # (Auto) 1.3 (0.8-4.8) 10^3/u L Weston # (Auto) 1.3 H (0.2-0.9) 10^3/u L Eos # (Auto) 0.0 (0.0-0.8) 10^3/u L Baso # (Auto) 0.3 H (0.0-0.1) 10^3/u L Nucleated RBC % (a uto) 0.1 % Nucleated RBCs # 0.0 /100WBC Specimen Type Arterial Sample Site Rb ABG pH 6.89 L* (7.35-7.45) ABG pCO2 7.9 L* (35-45) mmHg ABG pO2 147.0 H (80.0-100.0) mmH g ABG HCO3 1.5 L (22-26) mmol/L ABG Base Excess -30.3 L (-2.0-2.0) mmol/ L Hasmukh Test Na Hematocrit 50.6 (42-52) % O2 Delivery Device Room air FiO2 21.0 % Life Insurance Specialist ID Amh Sodium 130 L (136-145) mmol/L Potassium 7.6 H* (3.5-5.1) mmol/L Chloride 88 L (98-107) mmol/L Carbon Dioxide 3 L* (22-29) mmol/L Anion Gap 46.6 H (5-19) BUN 27 H (6-20) mg/dL Creatinine 1.8 H (0.7-1.2) mg/dL GFR Calculation 47.0 L (90-130) mL/min Glucose 947 H* (65-115) mg/dL Calculated Osmolal ity 322 H (285-295) mOsm/k g Lactate (0.5-2.2) mmol/L Calcium 8.0 L (8.5-10.5) mg/dL Total Bilirubin 0.2 (0.15-1.2) mg/dL AST 23 (0-40) U/L ALT 26 (0-41) U/L Alkaline Phosphata se 115 (40-130) IU/L C-Reactive Protein 1.2 (0.0-4.9) mg/L Total Protein 7.1 (6.6-8.7) g/dL Albumin 4.3 (3.5-5.2) g/dL Globulin 2.8 (1.3-4.6) g/dL Lipase 366 H (13-60) U/L Urine Color (Yellow) Urine Appearance (CLEAR) Urine pH (5-7) Ur Specific Gravit y (1.005-1.030) Urine Protein (Negative) Urine Glucose (UA) (Normal) Urine Ketones (Negative) Urine Blood (Negative) Urine Nitrate (Negative) Urine Bilirubin (Negative) Urine Urobilinogen (Negative) mg/dL Ur Leukocyte Mini ase (Negative) Urine RBC (0-2) /hpf Urine WBC (0-5) /hpf Ur Squamous Epith Cells (0-5) /hpf Amorphous Sediment /hpf Urine Bacteria (NONE) /hpf Urine Mucus /hpf Urine Opiates Scre en (Negative) ng/mL Ur Barbiturates Sc reen (Negative) ng/mL Ur Phencyclidine S crn (Negative) ng/mL Ur Amphetamines Sc reen (Negative) ng/mL U Benzodiazepines Scrn (Negative) ng/mL Urine Cocaine Scre en (Negative) ng/mL U Marijuana (THC) Screen (Negative) ng/mL Ethyl Alcohol < 10 (0-10) mg/dL Serum Ketones (Negative) 03/15/21 03/15/21 03/15/21 Range/Units 12:37 12:37 12:59 WBC (4.0-10.0) 10^3/ uL RBC (4.1-5.3) 10^6/u L Hgb (11.7-16.6) g/dL Hct (42.0-52.0) % MCV (80-94) fL MCH (28.0-34.0) pg MCHC (30.0-36.0) g/dL RDW (12.1-15.1) % Plt Count (130-400) 10^3/c mm MPV (7.4-10.4) fL Neut % (Auto) % Lymph % (Auto) % Weston % (Auto) % Eos % (Auto) % Baso % (Auto) % Neut # (Auto) (1.8-7.7) 10^3/u L Lymph # (Auto) (0.8-4.8) 10^3/u L Weston # (Auto) (0.2-0.9) 10^3/u L Eos # (Auto) (0.0-0.8) 10^3/u L Baso # (Auto) (0.0-0.1) 10^3/u L Nucleated RBC % (a uto) % Nucleated RBCs # /100WBC Specimen Type Sample Site ABG pH (7.35-7.45) ABG pCO2 (35-45) mmHg ABG pO2 (80.0-100.0) mmH g ABG HCO3 (22-26) mmol/L ABG Base Excess (-2.0-2.0) mmol/ L Hasmukh Test Hematocrit (42-52) % O2 Delivery Device FiO2 % Life Insurance Specialist ID Sodium (136-145) mmol/L Potassium (3.5-5.1) mmol/L Chloride (98-107) mmol/L Carbon Dioxide (22-29) mmol/L Anion Gap (5-19) BUN (6-20) mg/dL Creatinine (0.7-1.2) mg/dL GFR Calculation (90-130) mL/min Glucose (65-115) mg/dL Calculated Osmolal ity (285-295) mOsm/k g Lactate 4.6 H* (0.5-2.2) mmol/L Calcium (8.5-10.5) mg/dL Total Bilirubin (0.15-1.2) mg/dL AST (0-40) U/L ALT (0-41) U/L Alkaline Phosphata se (40-130) IU/L C-Reactive Protein (0.0-4.9) mg/L Total Protein (6.6-8.7) g/dL Albumin (3.5-5.2) g/dL Globulin (1.3-4.6) g/dL Lipase (13-60) U/L Urine Color Straw (Yellow) Urine Appearance Clear (CLEAR) Urine pH 5 (5-7) Ur Specific Gravit y 1.020 (1.005-1.030) Urine Protein 1+ H (Negative) Urine Glucose (UA) 4+ H (Normal) Urine Ketones 3+ H (Negative) Urine Blood 2+ H (Negative) Urine Nitrate Negative (Negative) Urine Bilirubin Neg (Negative) Urine Urobilinogen Norm (Negative) mg/dL Ur Leukocyte Mini ase Negative (Negative) Urine RBC Rare (0-2) /hpf Urine WBC 0-4 H (0-5) /hpf Ur Squamous Epith Cells None (0-5) /hpf Amorphous Sediment 1+ /hpf Urine Bacteria Trace (NONE) /hpf Urine Mucus 1+ /hpf Urine Opiates Scre en (Negative) ng/mL Ur Barbiturates Sc reen (Negative) ng/mL Ur Phencyclidine S crn (Negative) ng/mL Ur Amphetamines Sc reen (Negative) ng/mL U Benzodiazepines Scrn (Negative) ng/mL Urine Cocaine Scre en (Negative) ng/mL U Marijuana (THC) Screen (Negative) ng/mL Ethyl Alcohol (0-10) mg/dL Serum Ketones Positive H (Negative) 03/15/21 03/15/21 Range/Units 12:59 13:25 WBC (4.0-10.0) 10^3/ uL RBC (4.1-5.3) 10^6/u L Hgb (11.7-16.6) g/dL Hct (42.0-52.0) % MCV (80-94) fL MCH (28.0-34.0) pg MCHC (30.0-36.0) g/dL RDW (12.1-15.1) % Plt Count (130-400) 10^3/c mm MPV (7.4-10.4) fL Neut % (Auto) % Lymph % (Auto) % Weston % (Auto) % Eos % (Auto) % Baso % (Auto) % Neut # (Auto) (1.8-7.7) 10^3/u L Lymph # (Auto) (0.8-4.8) 10^3/u L Weston # (Auto) (0.2-0.9) 10^3/u L Eos # (Auto) (0.0-0.8) 10^3/u L Baso # (Auto) (0.0-0.1) 10^3/u L Nucleated RBC % (a uto) % Nucleated RBCs # /100WBC Specimen Type Arterial Sample Site Brachial, right ABG pH 6.84 L* (7.35-7.45) ABG pCO2 9.9 L* (35-45) mmHg ABG pO2 151.0 H (80.0-100.0) mmH g ABG HCO3 1.7 L (22-26) mmol/L ABG Base Excess -31.1 L (-2.0-2.0) mmol/ L Hasmukh Test N/a Hematocrit 45.9 (42-52) % O2 Delivery Device Room air FiO2 21.0 % Life Insurance Specialist ID Amh Sodium (136-145) mmol/L Potassium (3.5-5.1) mmol/L Chloride (98-107) mmol/L Carbon Dioxide (22-29) mmol/L Anion Gap (5-19) BUN (6-20) mg/dL Creatinine (0.7-1.2) mg/dL GFR Calculation (90-130) mL/min Glucose (65-115) mg/dL Calculated Osmolal ity (285-295) mOsm/k g Lactate (0.5-2.2) mmol/L Calcium (8.5-10.5) mg/dL Total Bilirubin (0.15-1.2) mg/dL AST (0-40) U/L ALT (0-41) U/L Alkaline Phosphata se (40-130) IU/L C-Reactive Protein (0.0-4.9) mg/L Total Protein (6.6-8.7) g/dL Albumin (3.5-5.2) g/dL Globulin (1.3-4.6) g/dL Lipase (13-60) U/L Urine Color (Yellow) Urine Appearance (CLEAR) Urine pH (5-7) Ur Specific Gravit y (1.005-1.030) Urine Protein (Negative) Urine Glucose (UA) (Normal) Urine Ketones (Negative) Urine Blood (Negative) Urine Nitrate (Negative) Urine Bilirubin (Negative) Urine Urobilinogen (Negative) mg/dL Ur Leukocyte Mini ase (Negative) Urine RBC (0-2) /hpf Urine WBC (0-5) /hpf Ur Squamous Epith Cells (0-5) /hpf Amorphous Sediment /hpf Urine Bacteria (NONE) /hpf Urine Mucus /hpf Urine Opiates Scre en Negative (Negative) ng/mL Ur Barbiturates Sc reen Negative (Negative) ng/mL Ur Phencyclidine S crn Negative (Negative) ng/mL Ur Amphetamines Sc reen Negative (Negative) ng/mL U Benzodiazepines Scrn Negative (Negative) ng/mL Urine Cocaine Scre en Negative (Negative) ng/mL U Marijuana (THC) Screen Negative (Negative) ng/mL Ethyl Alcohol (0-10) mg/dL Serum Ketones (Negative) Imaging Data^: CXR: Attestation: I personally reviewed and interpreted this imaging study as follows: Radiologist's impression: [address] [id number] ReportSigned Patient: Fernanda Ott #: [id number]: 1995Acct#:[id number]/Sex: 25 / MADM Date: 03/15/21Loc: ICURoom/Bed: [id number] Dr: Enmanuel Mariano MD Ordering Provider/Ordering MD: Anne Marie Mckeon MD, [facility] [place] of Service: 03/15/21 Procedure(s): XR chest 1V portable [id number] Accession Number(s): [id number] Report Number: [id number] PROCEDURE INFORMATION: Exam: XR Chest Exam date and time: 03/15/2021 1:53 PM Age: 25 years old Clinical indication: Shortness of breath; Additional info: AMS, dka TECHNIQUE: Imaging protocol: XR of the chest. Views: 1 view. COMPARISON: CR XR chest 1V portable [id number] 02/10/2021 9:56 AM FINDINGS: Lungs: Unremarkable. No consolidation. Pleural spaces: Unremarkable. No pleural effusion. No pneumothorax. Heart/Mediastinum: Unremarkable. No cardiomegaly. Bones/joints: Unremarkable. XR/XR chest 1V portable [id number] IMPRESSION: No acute findings. Dictated By:Mica Richardson MDSigned By:Mica Richardson MDSigned Date/Time:03/15/21 1553DD/ 1552 EKG Data^: EKG 1: Attestation: I personally reviewed and interpreted this EKG as follows: EKG interpretation date: 03/15/21 EKG interpretation time: 12:16 Prior EKG tracings: not available for review Interpretation: Sinus tachycardia. Heart rate [address] changes. Critical Care Time Critical Care Time: Critical Care Time: Yes Total Critical Care Time: 60 Attestation: This case had a high probability of a clinically significant, sudden, or life threatening deterioration of this patient's condition which required my full and direct attention, intervention and personal management. 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
[2021-03-15 13:47] LABS: ABG PCO2 7.9 mmHg (35-45); ABG PH Result 6.89 (7.35-7.45); HCO3 ABG 1.5 mmol/L (22-26)
[2021-03-15 13:48] LABS: Arterial Blood Gas Hematocrit 50.6 % (42-52); Base Excess ABG -30.3 mmol/L (-2.0-2.0); Blood Gas Operator Identificat AMH; Blood Gas Sample Site RB; Blood Gas Sample Type ARTERIAL; Oxygen Device ROOM AIR
[2021-03-15] MEDS: insulin regular-human 250 UNIT in sodium chloride 0.9% 250 ML 10 UNIT IV (13:48)
--- NOTE | 2021-03-15 13:48 | PC.NURSE ---
INSULIN DRIP INITIATED AT 10 UNITS/HOUR PER DR GARY; WITNESSED BY RIKI LIM.
--- NOTE | 2021-03-15 13:53 | XRR_ITS ---
PROCEDURE INFORMATION: Exam: XR Chest Exam date and time: 03/15/2021 1:53 PM Age: 25 years old Clinical indication: Shortness of breath; Additional info: francisco j GUERRERO TECHNIQUE: Imaging protocol: XR of the chest. Views: 1 view. COMPARISON: CR XR chest 1V portable [id number] 02/10/2021 9:56 AM FINDINGS: Lungs: Unremarkable. No consolidation. Pleural spaces: Unremarkable. No pleural effusion. No pneumothorax. Heart/Mediastinum: Unremarkable. No cardiomegaly. Bones/joints: Unremarkable. XR/XR chest 1V portable [id number] IMPRESSION: No acute findings.
--- NOTE | 2021-03-15 13:56 | ECG_ITS ---
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 Measurements Intervals [place] Rate: 142 P: 81 WV: 129 QRS: 69 QRSD: 94 T: 45 QT: 296 QTc: 456 Interpretive Statements SINUS TACHYCARDIA Compared to ECG 01/20/2021 10:26:15 No significant changes Electronically Signed On 03-15-2021 17:04:12 CDT by Real Cerna M.D. [id number]
--- NOTE | 2021-03-15 13:58 | PC.PHAR ---
PT STATES HE TAKES CARE OF HIS OWN MEDICATIONS-PT STATES HE USED BOTH HIS INSULINS LAST NIGHT 03/14/21-PT STATES HE USES [facility] 35 UNITS BID RX WRITTEN ON 02/17/21-EXT MED HISTORY SHOWS RX LAST FILLED ON 02/12/21 FOR 24 UNITS BID-PTS PHARMACY NOT OPEN TO VERIFY
[2021-03-15 14:35] LABS: Glucose Point of Care > 600 mg/dL (70-110)
--- NOTE | 2021-03-15 14:35 | PC.NURSE ---
INCREASED INSULIN DRIP FROM 10 UNITS PER HOUR TO 15 UNITS PER [address] PER [address]. GARY.
--- NOTE | 2021-03-15 15:49 | PC.NURSE ---
recieved from er drowsy and restless and agitated ... transfered over it icu 6 insuling gtt increased to 20 unts HR at this time and removed glucose monitor from right arm placed in closet . oral care very poor condition brown crusting on teeth . bicarb gtt infusing at this time .
--- NOTE | 2021-03-15 16:18 | P.HP_ITS ---
Providers/Chief Complaint Admitting Physician: Enamnuel Mariano Primary Care Provider: MARGE Castellano Chief Complaint: AMS; SVT; DKA History of Present Illness 25-year-old gentleman with history of DM1, DKA, most recently discharged 02/17 after hospitalization for same, he is admitted for assessment management of episode of DKA, with noted metabolic acidosis, with dehydration, tachycardia, acute kidney injury, hyperkalemia. He started feeling unwell about day before yesterday, then had some nausea, vomiting. Denies fever, chills, or other associated symptoms. Denies abdominal pain. In route to the hospital cardioversion was attempted due to concern for SVT. Heart rates in ER responded well to 3 L of fluid boluses with improvement. He is started on insulin drip, b icarb drip. He states already is feeling better. Denies chest pain or pressure. He states that he currently lives with his girlfriend. He smokes cigarettes. He denies current methamphetamine use, has used it in the past, but states none recently. He has a glucose monitoring device in his right arm which connects to his cell phone. He has an insulin pump, although not with him, currently it is with his mother. He currently lives with his girlfriend. He states he keeps his pump on at all times. When asked if he maintains diabetic diet, states he tries to. Review of Systems Const: Reports: malaise; Denies: fever(s), chills or body aches Eyes: Denies: change in vision or eye redness ENMT: Denies: throat pain, oral sores or ear or mastoid pain Card: Denies: chest pain, edema, pre-syncope or dyspnea on exertion Resp: Denies: dyspnea, productive cough, change in phlegm color or hemoptysis GI: Reports: nausea and vomiting; Denies: abdominal pain, diarrhea, constipation, hematochezia or melena : Denies: flank pain, difficulty urinating, urinary frequency or hematuria Musc: Denies: back pain, joint swelling or joint redness Skin/Breast: Denies: rash, sores or new lesions Neuro: Denies: headache(s), numbness in extremities, weakness in extremities, dizziness, confusion or seizure-like activity Endo: Denies: polyuria or polydipsia Garett/Lymph: Denies: easy bleeding or purpura All/Imm: Denies: urticaria, throat swelling or tongue swelling Medications/Allergies Home Medications Medication Instructions Recorded Confirmed Last Taken Type blood-glucose meter,continuous #1 ea 11/26/20 03/15/21 Unknown Rx blood-glucose sensor #3 ea 11/26/20 03/15/21 Unknown Rx blood-glucose transmitter #3 ea 11/26/20 03/15/21 Unknown Rx insulin aspart U-100 [Novolog See Rx Instructions .ROUTE .COMPLEX 02/16/21 03/15/21 02/15/21 History Flexpen U-100 Insulin] Lantus U-100 Insulin 35 unit SUBCUT BID 03/15/21 03/15/21 03/14/21 History famotidine 20 mg PO BID 03/15/21 03/15/21 Unknown History Allergies Allergy/AdvReac Type Severity Reaction Status Date / Time promethazine [From Phenergan] Allergy Unknown Verified 03/15/21 13:58 PFSH Acute PFSH: Medical History (Updated 03/15/21 @ 16:35 by Enmanuel Mariano MD) DKA (diabetic ketoacidoses) GERD (gastroesophageal reflux disease) Marijuana use Pancreatitis Type 1 diabetes With recurrent admissions for DKA, severe Uncontrolled type 1 diabetes mellitus Surgical History No pertinent past surgical history Family History Other Diabetes Social History (Updated 03/15/21 @ 16:32 by Enmanuel Mariano MD) Smoking and tobacco status: current every day smoker Alcohol intake: never Substance/Drug Use: former Date of last use: Marijuana abuse Lives independently: Yes Household members: significant other Marital status: Single Current occupational status: unemployed Vitals/I&O/Wt Last Vital Signs Temp 97.4 F L 03/15/21 12:38 Pulse 149 H 03/15/21 15:45 Resp 29 H 03/15/21 15:45 BP 124/81 03/15/21 15:45 Pulse Ox 100 03/15/21 15:45 07/11/21 07/11/21 07/11/21 06:59 14:59 22:59 Intake Total 2157.35 / 2157.35 1000 / 3157.35 Output Total 2200 / 2200 Balance 2157.35 / 2157.35 -1200 / 957.35 Weight last 48 hrs Weight 68.039 kg Physical Exam Const: ORIENTATION/CONSCIOUSNESS: Yes awake OTHER: Sluggish responses, but does wake up and get going and provides his own history HENMT: OTHER: Very dry oral mucosa Neck/C-Spine: COMMON NORMALS: no JVD Resp: COMMON NORMALS: normal respiratory effort EFFORT & INSPECTION: Yes able to speak in complete sentences and Yes tachypneic AUSCULTATION: clear to auscultation bilaterally Cardio: COMMON NORMALS: no JVD, regular rhythm, S1 normal heart sound present, S2 normal heart sound present and No murmurs present (Cardio) RATE: tachycardic RHYTHM: regular rhythm HEART SOUNDS: S1 normal heart sound present and S2 normal heart sound present GI: COMMON NORMALS: Normal to inspection, nondistended, normoactive bowel sounds present, Soft to palpation and non-tender PALPATION: Yes Soft to palpation Extremity: COMMON NORMALS: no joint enlargement and no pedal edema Neuro: COMMON NORMALS: patient oriented x3 and moves all extremities Skin: COMMON NORMALS: no rashes or lesions noted GENERAL SKIN EXAM: no rashes or lesions noted Urinary Catheter Management^: Burger: Cath Placed During This Visit: yes Urinary Catheter Date of Insertion: 03/15/21 Urinary Catheter Time of Insertion: 13:00 Data : 03/15/21 12:37 03/15/21 12:37 A&P Assessment and plan (1) DKA (diabetic ketoacidoses): DKA with endorgan injury with acute kidney injury, metabolic encephalopathy prior to presentation. Received 4 L IV fluid boluses. Very dry on presentation. Continue bicarbonate drip 200 mill per hour. Insulin drip. Reassess BMP, magnesium, phosphorus. N.p.o. at this time except sips and ice chips. Insulin pump is currently with his mother. Reading device removed from the right arm. Reports he gives himself boluses of 30 units before meals, but please confirm with him once mental status is a bit more out of acute condition. Review glucose values on glucose monitoring device which connects her cell phone, and basal infusion rate, boluses on insulin pump if possible. Does not appear to have infectious trigger at this time. Leukocytosis suspected secondary to dehydration, stress. Vomiting. Chest x-ray, UA unremarkable. Denies abdominal pain. Famotidine. Lovenox VTE prophylaxis. Status: Acute Qualifiers: Diabetes mellitus complication detail: with coma Diabetes mellitus type: type 1 Qualified Code(s): E10.11 - Type 1 diabetes mellitus with ketoacidosis with coma (2) BALWINDER (acute kidney injury): Creatinine up to 1.8. Rehydrate. Suspected prerenal acute kidney injury secondary to severe dehydration with DKA. Possible ATN. Monitor renal function, urine output. Status: Acute (3) Metabolic acidosis: DKA, lactic acidosis with hypoperfusion, severe dehydration. Continue bicarbonate drip. Recheck VBG. Status: Acute (4) Hyperkalemia: Continue insulin drip, rehydration, recheck BMP. Received calcium gluconate. Expect this should improve quite significantly with insulin therapy. Status: Acute (5) Tachycardia: Sinus tachycardia. He denies chest pain. Flutter could not be excluded, but does not appear like that on telemetry. Cardioversion was attempted several times in route, heart rates did improve with fluid boluses in ER. Continue aggressive rehydration, bicarbonate drip, insulin drip. Recheck electrolytes. Status: Acute Additional A&P Information Smoking addiction: Encourage cessation History of methamphetamine use: Reports not currently, has not used it in a while Lipase elevation: 366. Secondary to vomiting at home and yesterday. Vomiting: Not so far since in the hospital. Zofran as needed. Continue famo tidine. Attestations Medical Necessity Statement*: Admission of over 2 midnights is going to be needed for assessment of management of DKA, severe metabolic acidosis, lactic acidosis, severe dehydration, endorgan injury with acute kidney injury, acute encephalopathy and other comorbidities as above. Critical Care Time: In addition to noncritical issues 45 minutes critical care time spent on assessment management of DKA with severe metabolic acidosis, lactic acidosis, endorgan injury with acute kidney injury, acute encephalopathy, hemodynamic, volume status assessment, fluid resuscitation with severe dehydration, bicarbonate therapy, insulin drip, discussed with nursing staff. Patient. 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
[2021-03-15] MEDS: enoxaparin 40 mg/0.4 mL Syringe SUBCUT (16:51)
[2021-03-15] MEDS: famotidine 20 mg/2 mL INJ IVP (16:51)
[2021-03-15] MEDS: sodium chloride 0.9% 1,000 ML 150 ML IV (16:52)
[2021-03-15 17:13] LABS: Glucose Point of Care > 600 mg/dL (70-110)
[2021-03-15 17:13] LABS: Glucose Point of Care 294 mg/dL (70-110)
[2021-03-15 17:23] LABS: ABG PH Result 7.23 (7.35-7.45); Arterial Blood Gas Hematocrit 47.2 % (42-52); Base Excess ABG -17.6 mmol/L (-2.0-2.0); Blood Gas Operator Identificat AMH; Blood Gas Sample Site Brachial, right; Blood Gas Sample Type Arterial; Carboxyhemoglobin 0.2 %THgb (0.4-20.1); HCO3 ABG 7.5 mmol/L (22-26); HGB O2 Sat 96.4 % (95-100); Ionized Calcium Level - ABG 1.2 mmol/L (1.1-1.4); Oxygen Device ROOM AIR; Oxygen Saturation ABG 97.5; Potassium Level - ABG 3.8 mmol/L (3.5-5.0); Total Hemoglobin 15.4 g/dL (14-18)
[2021-03-15 17:24] LABS: ABG PCO2 18.1 mmHg (35-45)
[2021-03-15 18:05] LABS: Glucose Point of Care 207 mg/dL (70-110)
[2021-03-15 19:02] LABS: Glucose Point of Care 184 mg/dL (70-110)
[2021-03-15 19:13] LABS: Blood Urea Nitrogen 17 mg/dL (6-20); Calcium 7.4 mg/dL (8.5-10.5); Chloride 116 mmol/L (98-107); Glomerular Filtration Rate 104.6 mL/min (90-130); Glucose 186 mg/dL (65-115); Magnesium 1.9 mg/dL (1.7-2.3); Osmolality Calculated 306 mOsm/kg (285-295); Phosphorus 1.3 mg/dL (2.5-4.5); Sodium 145 mmol/L (136-145)
[2021-03-15 19:15] LABS: Anion Gap 25.5 (5-19)
[2021-03-15 19:16] LABS: Potassium 4.5 mmol/L (3.5-5.1)
[2021-03-15 19:17] LABS: Carbon Dioxide 8 mmol/L (22-29)
[2021-03-15 20:19] LABS: Glucose Point of Care 130 mg/dL (70-110)
[2021-03-15] MEDS: dextrose 5%-sod chloride 0.45% 1,000 ML 100 ML IV (20:48)
[2021-03-15 21:08] LABS: Glucose Point of Care 119 mg/dL (70-110)
[2021-03-15 22:11] LABS: Glucose Point of Care 138 mg/dL (70-110)
[2021-03-15 22:35] LABS: Anion Gap 25.2 (5-19); Blood Urea Nitrogen 15 mg/dL (6-20); Calcium 7.6 mg/dL (8.5-10.5); Carbon Dioxide 12 mmol/L (22-29); Chloride 115 mmol/L (98-107); Glomerular Filtration Rate 119.8 mL/min (90-130); Glucose 138 mg/dL (65-115); Osmolality Calculated 309 mOsm/kg (285-295); Potassium 4.2 mmol/L (3.5-5.1); Sodium 148 mmol/L (136-145)
[2021-03-15 23:12] LABS: Glucose Point of Care 161 mg/dL (70-110)
[2021-03-15] MEDS: phosphorus 250 mg Tablet PO (23:19)
[2021-03-16] VITALS (24 sets, daily range): BP systolic 97–141; BP diastolic 58–90; PULSE 83–107; RESP 3–26; TEMP 36.8–37; O2SAT 96–100; BMI 22.1
[2021-03-16 00:04] LABS: Glucose Point of Care 169 mg/dL (70-110)
[2021-03-16 01:18] LABS: Glucose Point of Care 207 mg/dL (70-110)
[2021-03-16 02:02] LABS: Glucose Point of Care 203 mg/dL (70-110)
[2021-03-16 03:00] LABS: Glucose Point of Care 222 mg/dL (70-110)
[2021-03-16 03:41] LABS: Basophils % 0.1 %; Hematocrit 42.3 % (42.0-52.0); Hemoglobin 14.2 g/dL (11.7-16.6); Lymphocytes # 0.9 10^3/uL (0.8-4.8); Lymphocytes % 6.5 %; Mean Corpuscular HGB Conc 33.6 g/dL (30.0-36.0); Mean Corpuscular Hemoglobin 31.6 pg (28.0-34.0); Mean Platelet Volume 9.5 fL (7.4-10.4); Monocytes # 0.9 10^3/uL (0.2-0.9); Monocytes % 6.9 %; Neutrophils # 11.57 10^3/uL (1.8-7.7); Neutrophils % 86.1 %; Nucleated Red Blood Cells % 0 %; Platelet Count 225 10^3/cmm (130-400); Red Cell Distribution Width 12.9 % (12.1-15.1); White Blood Count 13.5 10^3/uL (4.0-10.0)
[2021-03-16 04:07] LABS: Alanine Aminotransferase 21 U/L (0-41); Albumin Level 3.7 g/dL (3.5-5.2); Alkaline Phosphatase 82 IU/L (40-130); Aspartate Amino Transferase 14 U/L (0-40); Blood Urea Nitrogen 11 mg/dL (6-20); Calcium 7.6 mg/dL (8.5-10.5); Carbon Dioxide 14 mmol/L (22-29); Chloride 113 mmol/L (98-107); Creatinine Clr Calc Pharmacy 161.6541; Globulin 2.2 g/dL (1.3-4.6); Glomerular Filtration Rate 139.8 mL/min (90-130); Glucose 205 mg/dL (65-115); Osmolality Calculated 307 mOsm/kg (285-295); Sodium 146 mmol/L (136-145); Total Bilirubin 0.5 mg/dL (0.15-1.2); Total Protein 5.9 g/dL (6.6-8.7)
[2021-03-16 04:15] LABS: Glucose Point of Care 243 mg/dL (70-110)
[2021-03-16] MEDS: famotidine 20 mg/2 mL INJ IVP ×2 (05:02→16:17)
[2021-03-16 05:08] LABS: Glucose Point of Care 221 mg/dL (70-110)
[2021-03-16 06:08] LABS: Glucose Point of Care 214 mg/dL (70-110)
[2021-03-16 07:05] LABS: Glucose Point of Care 203 mg/dL (70-110)
[2021-03-16 08:06] LABS: Glucose Point of Care 232 mg/dL (70-110)
--- NOTE | 2021-03-16 08:40 | PC.RESP ---
SMOKING CESSATION INFORMATION SENT TO PATIENT.
[2021-03-16] MEDS: phosphorus 250 mg Tablet PO ×2 (08:46→17:04)
[2021-03-16] MEDS: dextrose 5%-sod chloride 0.45% 1,000 ML 100 ML IV (08:46)
[2021-03-16 09:47] LABS: Glucose Point of Care 207 mg/dL (70-110)
[2021-03-16 10:05] LABS: Glucose Point of Care 261 mg/dL (70-110)
[2021-03-16 11:03] LABS: Glucose Point of Care 191 mg/dL (70-110)
[2021-03-16 12:02] LABS: Anion Gap 18.5 (5-19); Blood Urea Nitrogen 9 mg/dL (6-20); Calcium 8.1 mg/dL (8.5-10.5); Carbon Dioxide 19 mmol/L (22-29); Chloride 108 mmol/L (98-107); Glucose 175 mg/dL (65-115); Osmolality Calculated 297 mOsm/kg (285-295); Potassium 3.5 mmol/L (3.5-5.1); Sodium 142 mmol/L (136-145)
[2021-03-16 12:29] LABS: Glucose Point of Care 152 mg/dL (70-110)
--- NOTE | 2021-03-16 13:00 | PC.CHAP ---
Pastoral Care Encounter/Spiritual Assessment Type of Contact [] Declined web designer visit [] Patient/Family/Request visit [] Outpatient visit [x] Follow-up visit [] Physician referral [] Code/Alert [] Routine visit [] Staff referral [] Actively dying [] Patient sleeping [] Family support [] [] Out of room [] Palliative care [] [] Receiving care in room [] Pre-surgical visit [] Trauma [] Long length of stay [] ICU visit [] Other: Relational/Emotional Strength [] Patient feels connected with others/family/visitors/staff [] Distress [] Loneliness/isolation [] Abandonment Spirituality of Patient [] Person of Emily [] Attends Mandaen of their Emily [] Believes in Prayer [] Reads Bible or Jainism materials [] There are Spiritual issues to be addressed Can Handler Interventions [] Prayer [] Active listening [] Non-anxious presence [] Spiritual/emotional support [] Crisis/trauma care [] Spiritual counseling [] Bereavement support [] Provided bereavement packet [] Provided Bible/devotional materials [] Provided toy/stuffed animal, coloring book to patient or family member [] Provided Communion [] Anointing/[place] [] Salvation [] Completed spiritual assessment [] Other: Impact on Illness or Injury [] Angry [] Fearful [] Anxious [] Often cries [] Exhaustion [] Unable to work [] Unable to attend latter day [] Unable to walk/stand [] Unable to read [] Unable to drive [] Unable to eat/drink [] Unable to sleep [] Unable to be with family [] Patient intubated [] Other: Summary Time spent with patient
[2021-03-16 13:09] LABS: Glucose Point of Care 159 mg/dL (70-110)
--- NOTE | 2021-03-16 13:43 | PC.NURSE ---
Mr. Ott's mother called at 1300 stating that she tested positive for covid. Physician notified. New orders to test patient for covid. Swab collected and sent you lab.
--- NOTE | 2021-03-16 13:56 | P.PN_ITS ---
Subjective Subjective: Interval history: Is a 25-year-old male with history of diabetes type 1 recently discharged on February 17 for DKA presents with similar presentation. He is currently in the ICU on insulin drip. Also receiving ivf His anion gap is still elevated. He denies any nausea chest pain or abdominal pain. He is wanting to eat. He reported that his insulin pump was not working prior to being admitted. Vitals/I&O/Wt Last Vital Signs Temp 98.6 F 03/16/21 08:00 Pulse 95 03/16/21 13:00 Resp 23 H 03/16/21 13:00 BP 115/77 03/16/21 13:00 Pulse Ox 98 03/16/21 13:00 03/15/21 03/16/21 03/16/21 22:59 06:59 14:59 Intake Total 1083.55 / 3240.90 1000 / 4240.90 363.333 / 363.333 Output Total 5600 / 5600 2000 / 7600 Balance -4516.45 / -2359.10 -1000 / -3359.10 363.333 / 363.333 Weight last 48 hrs Weight 150 lb Weight 150 lb Physical Exam Const: COMMON NORMALS: no acute distress, average body habitus and patient oriented x3 Neck/C-Spine: COMMON NORMALS: no JVD Resp: COMMON NORMALS: normal respiratory effort and No retractions Cardio: COMMON NORMALS: no JVD and regular rate RATE: regular rate GI: COMMON NORMALS: Normal to inspection, nondistended, normoactive bowel soun ds present and non-tender Neuro: COMMON NORMALS: patient oriented x3 and CN's II-XII intact bilaterally Psych: COMMON NORMALS: mental status grossly normal and Normal thought process present THOUGHT PROCESS: Normal thought process present Urinary Catheter Management^: Burger: Cath Placed During This Visit: yes Urinary Catheter Date of Insertion: 03/15/21 Urinary Catheter Time of Insertion: 13:00 Data : 03/16/21 03:08 03/16/21 11:21 A&P Assessment and plan (1) DKA (diabetic ketoacidoses): Status: Acute Qualifiers: Diabetes mellitus complication detail: without coma Diabetes mellitus type: type 1 Qualified Code(s): E10.10 - Type 1 diabetes mellitus with ketoacidosis without coma (2) Long-term insulin use: Status: Chronic Additional A&P Information DKA --Continue on protocol BMP every 4 hours anion gap still elevated. Will chicas sition from insulin drip to subcutaneous once this closes. Currently receiving dextrose half. We increase the fluid rate today. 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
[2021-03-16 14:02] LABS: Glucose Point of Care 152 mg/dL (70-110)
[2021-03-16 14:23] LABS: SARS Covid-2 Antigen Negative (Negative)
[2021-03-16 16:06] LABS: Glucose Point of Care 172 mg/dL (70-110)
[2021-03-16] MEDS: dextrose 5%-sod chloride 0.45% 1,000 ML 150 ML IV ×2 (16:07→22:11)
--- NOTE | 2021-03-16 16:33 | PC.NURSE ---
Rapid Covid test reported to be negative. Physician notified. Isolation precautions discontinued. Patient's mother notified.
[2021-03-16] MEDS: enoxaparin 40 mg/0.4 mL Syringe SUBCUT (17:04)
[2021-03-16 17:10] LABS: Glucose Point of Care 165 mg/dL (70-110)
[2021-03-16 17:11] LABS: Anion Gap 18.2 (5-19); Blood Urea Nitrogen 8 mg/dL (6-20); Calcium 7.9 mg/dL (8.5-10.5); Carbon Dioxide 17 mmol/L (22-29); Chloride 106 mmol/L (98-107); Glucose 157 mg/dL (65-115); Osmolality Calculated 288 mOsm/kg (285-295); Potassium 3.2 mmol/L (3.5-5.1); Sodium 138 mmol/L (136-145)
[2021-03-16 17:45] LABS: Glucose Point of Care 159 mg/dL (70-110)
[2021-03-16 18:07] LABS: Glucose Point of Care 145 mg/dL (70-110)
[2021-03-16 18:52] LABS: Glucose Point of Care 148 mg/dL (70-110)
[2021-03-16 20:00] LABS: Glucose Point of Care 235 mg/dL (70-110)
[2021-03-16 20:41] LABS: Blood Urea Nitrogen 6 mg/dL (6-20); Calcium 7.6 mg/dL (8.5-10.5); Carbon Dioxide 16 mmol/L (22-29); Chloride 105 mmol/L (98-107); Glomerular Filtration Rate 206.1 mL/min (90-130); Glucose 201 mg/dL (65-115); Osmolality Calculated 285 mOsm/kg (285-295); Sodium 136 mmol/L (136-145)
[2021-03-16 21:19] LABS: Glucose Point of Care 203 mg/dL (70-110)
[2021-03-16 22:15] LABS: Glucose Point of Care 179 mg/dL (70-110)
[2021-03-16 23:07] LABS: Glucose Point of Care 183 mg/dL (70-110)
[2021-03-17] VITALS (16 sets, daily range): BP systolic 96–124; BP diastolic 50–89; PULSE 71–98; RESP 0–16; TEMP 36.3–36.9; O2SAT 96–98
[2021-03-17] LABS: Glucose Point of Care 219 mg/dL (70-110)
[2021-03-17 00:54] LABS: Blood Urea Nitrogen 6 mg/dL (6-20); Calcium 7.6 mg/dL (8.5-10.5); Carbon Dioxide 20 mmol/L (22-29); Chloride 106 mmol/L (98-107); Glomerular Filtration Rate 206.1 mL/min (90-130); Glucose 229 mg/dL (65-115); Osmolality Calculated 291 mOsm/kg (285-295); Sodium 138 mmol/L (136-145)
[2021-03-17 01:11] LABS: Glucose Point of Care 215 mg/dL (70-110)
[2021-03-17 02:23] LABS: Glucose Point of Care 215 mg/dL (70-110)
[2021-03-17 03:41] LABS: Glucose Point of Care 295 mg/dL (70-110)
[2021-03-17 04:03] LABS: Basophils % 0.6 %; Eosinophils # 0.1 10^3/uL (0.0-0.8); Eosinophils % 1.1 %; Hematocrit 37.2 % (42.0-52.0); Hemoglobin 12.8 g/dL (11.7-16.6); Lymphocytes # 1.2 10^3/uL (0.8-4.8); Mean Corpuscular HGB Conc 34.4 g/dL (30.0-36.0); Mean Corpuscular Hemoglobin 31.6 pg (28.0-34.0); Mean Corpuscular Volume 91.9 fL (80-94); Mean Platelet Volume 9.8 fL (7.4-10.4); Monocytes # 0.4 10^3/uL (0.2-0.9); Monocytes % 6.2 %; Neutrophils # 4.72 10^3/uL (1.8-7.7); Neutrophils % 72.8 %; Nucleated Red Blood Cells % 0 %; Platelet Count 155 10^3/cmm (130-400); Red Blood Count 4.05 10^6/uL (4.1-5.3); Red Cell Distribution Width 13.2 % (12.1-15.1); White Blood Count 6.5 10^3/uL (4.0-10.0)
[2021-03-17 04:07] LABS: Glucose Point of Care 243 mg/dL (70-110)
[2021-03-17] MEDS: dextrose 5%-sod chloride 0.45% 1,000 ML 150 ML IV ×2 (04:35→12:43)
[2021-03-17 04:38] LABS: Alanine Aminotransferase 15 U/L (0-41); Albumin Level 3.1 g/dL (3.5-5.2); Alkaline Phosphatase 74 IU/L (40-130); Anion Gap 13.8 (5-19); Aspartate Amino Transferase 15 U/L (0-40); Blood Urea Nitrogen 5 mg/dL (6-20); Calcium 7.6 mg/dL (8.5-10.5); Carbon Dioxide 21 mmol/L (22-29); Chloride 108 mmol/L (98-107); Globulin 1.9 g/dL (1.3-4.6); Glucose 235 mg/dL (65-115); Osmolality Calculated 295 mOsm/kg (285-295); Sodium 140 mmol/L (136-145); Total Bilirubin 0.6 mg/dL (0.15-1.2)
[2021-03-17] MEDS: famotidine 20 mg/2 mL INJ IVP (04:38)
[2021-03-17 04:48] LABS: Potassium 2.8 mmol/L (3.5-5.1)
[2021-03-17] MEDS: lidocaine 1% 5 ML in potassium chloride premix 100 ML 25 ML IV ×2 (05:08→10:54)
[2021-03-17 05:19] LABS: Glucose Point of Care 200 mg/dL (70-110)
[2021-03-17 06:15] LABS: Glucose Point of Care 190 mg/dL (70-110)
[2021-03-17 07:08] LABS: Glucose Point of Care 172 mg/dL (70-110)
[2021-03-17 09:07] LABS: Glucose Point of Care 374 mg/dL (70-110)
[2021-03-17 09:30] LABS: Anion Gap 17.6 (5-19); Blood Urea Nitrogen 4 mg/dL (6-20); Calcium 7.7 mg/dL (8.5-10.5); Carbon Dioxide 18 mmol/L (22-29); Chloride 108 mmol/L (98-107); Glomerular Filtration Rate 206.1 mL/min (90-130); Glucose 226 mg/dL (65-115); Osmolality Calculated 294 mOsm/kg (285-295); Potassium 3.6 mmol/L (3.5-5.1); Sodium 140 mmol/L (136-145)
[2021-03-17] MEDS: phosphorus 250 mg Tablet PO (09:37)
[2021-03-17] MEDS: insulin regular-human 10 UNIT in SYRINGE 1 EACH SUBCUT (10:00)
[2021-03-17 10:18] LABS: Glucose Point of Care 358 mg/dL (70-110)
[2021-03-17 11:08] LABS: Glucose Point of Care 302 mg/dL (70-110)
[2021-03-17 11:19] LABS: Glucose Point of Care 211 mg/dL (70-110)
--- NOTE | 2021-03-17 11:23 | PC.NUTR ---
Nutrition assessment completed d/t consult per [place] assessment. Obtained diet hx from pt and provided nutrition education on Carbohydrate Counting for DM, and label reading. Recommend outpatient RD services for further education--notified nurse and Dr. Martines. Recommend advance diet as tolerated to Consistent Carb diet when medically appropriate. See RD assessment for further details.
[2021-03-17 12:06] LABS: Glucose Point of Care 195 mg/dL (70-110)
[2021-03-17 13:03] LABS: Glucose Point of Care 191 mg/dL (70-110)
[2021-03-17 13:44] LABS: Alanine Aminotransferase 18 U/L (0-41); Albumin Level 3.6 g/dL (3.5-5.2); Alkaline Phosphatase 78 IU/L (40-130); Anion Gap 17.3 (5-19); Aspartate Amino Transferase 17 U/L (0-40); Blood Urea Nitrogen 4 mg/dL (6-20); Calcium 8.1 mg/dL (8.5-10.5); Carbon Dioxide 18 mmol/L (22-29); Chloride 109 mmol/L (98-107); Glucose 194 mg/dL (65-115); Osmolality Calculated 294 mOsm/kg (285-295); Potassium 3.3 mmol/L (3.5-5.1); Sodium 141 mmol/L (136-145); Total Bilirubin 0.5 mg/dL (0.15-1.2); Total Protein 5.6 g/dL (6.6-8.7)
[2021-03-17 14:04] LABS: Glucose Point of Care 149 mg/dL (70-110)
[2021-03-17 14:16] LABS: Magnesium 1.6 mg/dL (1.7-2.3)
--- NOTE | 2021-03-17 14:24 | PC.NURSE ---
1400 Called Anion Gap of 17.[address] Martines, patient asking for food. May give sips of water until next blood draw at 1600. 1405 Patient says he wants to leave, and walk out . Called Dr. Martines, may give clear liquids, 1408 Patient offered clear liquids specifically broth and any clear liquids, Patient says he still wants to leave. [address] Martines patient still wants to leave, offer him to do next blood draw now, patient refused to stay, he still wants to leave AMA. 1410 Explained to patient his Anion gap is not low enough yet, that he may end up back in ER if he leaves now, he still requests to sign AMA and called his friend to come get him. 1412 I again explained to patient that he has to take all responsibility for his actions if he leave like this. HE agrees.
--- NOTE | 2021-03-17 14:32 | PC.NURSE ---
1420 Removed lawson with 9ml water from balloon. Removed EKG patches, O2 Sat probe and IV in upper left arm, held pressure for a couple minutes until it stopped bleeding, then applied a bandaid wtih 2x2 to site. Awaiting friend to pick him up and getting dressed.
--- NOTE | 2021-03-17 14:53 | PC.NURSE ---
1410 Patient signed AMA form.
--- NOTE | 2021-03-17 15:14 | PC.NURSE ---
2267 Patient says friend in here, waiting outside of ER. I ambulated patient to ER, and he went outside. No c/o's.
--- NOTE | 2021-03-18 16:03 | P.DS_ITS ---
Discharge Providers Date of Admission: 03/15/21 14:27 Date of Discharge: March 18, 2021 Attending Provider at Admission: Enmanuel Mariano Attending Provider at Discharge: Jess Martines MD Primary Care Provider: MARGE Castellano Diagnoses at Discharge Discharge Diagnosis (1) DKA (diabetic ketoacidoses): Status: Acute Qualifiers: Diabetes mellitus complication detail: without coma Diabetes mellitus type: type 1 Qualified Code(s): E10.10 - Type 1 diabetes mellitus with ketoacidosis without coma (2) Long-term insulin use: Status: Chronic Reason for Visit Reason for Visit: AMS; SVT; DKA Hospital Course Hospital Course 25-year-old male with history of diabetes type 1 recently discharged on February 17 for DKA presents with similar presentation. He is currently in the ICU on insulin drip. Also receiving ivf His anion gap is still elevated. He denies any nausea chest pain or abdominal pain. He is wanting to eat. He reported that his insulin pump was not working prior to being admitted. Patient did not appear to have an infection. Likely secondary to noncompliance. He became very agitated anxious while he was in the hospital. He wanted to leave. He left AMA. He was recommended to stay he said that he would come back if things had worsened. Physical Exam Const: COMMON NORMALS: no acute distress, patient oriented x3 and no limitations Neck/C-Spine: COMMON NORMALS: no JVD Chest: COMMONS NORMALS: normal inspection of the chest Cardio: COMMON NORMALS: no JVD and regular rate RATE: regular rate Neuro: COMMON NORMALS: patient oriented x3 Skin: COMMON NORMALS: no rashes or lesions noted GENERAL SKIN EXAM: no rashes or lesions noted Urinary Catheter Management^: Burger: Cath Placed During This Visit: yes Urinary Catheter Date of Insertion: 03/15/21 Urinary Catheter Time of Insertion: 13:00 Discharge Data Data Completed and Pending: Completed Studies During Hospitalization Category Date Time Status XR chest 1V merry ble [id number] Stat Exams 03/15/21 13:53 Completed Vitals: Last Vital Signs Temp 97.3 F L 03/17/21 14:55 Pulse 88 03/17/21 14:55 Resp 16 03/17/21 14:55 BP 124/78 03/17/21 14:55 Pulse Ox 97 03/17/21 14:55 Discharge Plan Discharge Patient Disposition: Home Condition: Stable Prescriptions: Continued (DME) Dexcom G6 [employer] Representative Misc See Rx Instructions .ROUTE .MEDSUPPLY Qty: 1 RF: 0 (DME) Dexcom G6 Sensor Device See Rx Instructions .ROUTE .MEDSUPPLY Qty: 3 RF: 3 (DME) Dexcom G6 Transmitter Device See Rx Instructions .ROUTE .MEDSUPPLY Qty: 3 RF: 3 insulin aspart U-100 [Novolog Flexpen U-100 Insulin] 100 unit/mL (3 mL) insu evert pen See Rx Instructions unit .ROUTE .COMPLEX RF: 0 Lantus U-100 Insulin 100 unit/mL solution 35 unit SUBCUT BID RF: 0 famotidine 20 mg tablet 20 mg PO BID RF: 0 Discharge Orders: Discharge Order (Routine); Ordered 03/18/21 Ordered By: Jess Martines Discharge Diet: Diabetic Discharge Activity: Resume usual activity Patient Instructions: Opioid Safety Discharge Attestations Time Spent in Discharge Care*: less than 30 min Specific Discharge Activities: educating patient Status at Discharge: Cognitive status at discharge: cognitively intact , Behavioral status at discharge: cooperative , Quality Metrics Clinical Quality Measures During this hospital stay, did patient experience: None Coding Level of Care Code Acute Chg FW DC note Diagnoses DKA (diabetic ketoacidoses) E10.10 Diabetes mellitus complication detail: without coma Diabetes mellitus type: type 1 Long-term insulin use Z79.4
== END 2021-03-17 14:55 | disposition left against medical advice (07) | DRG 637 ==
LOC: ER 12:51 → ICU 14:33
PROVIDERS: Admitting Provider Internal Medicine; Emergency Provider Family Medicine; PCP Nurse Practitioner Family; Visit Provider Internal Medicine
DX: E10.10 Type 1 diabetes mellitus with ketoacidosis without coma (principal); G93.41 Metabolic encephalopathy; N17.9 Acute kidney failure, unspecified; I47.1 Supraventricular tachycardia; Z96.41 Presence of insulin pump (external) (internal); E86.0 Dehydration; E87.5 Hyperkalemia; F17.210 Nicotine dependence, cigarettes, uncomplicated; K21.9 Gastro-esophageal reflux disease without esophagitis; F12.90 Cannabis use, unspecified, uncomplicated; T38.3X6A Underdosing of insulin and oral hypoglycemic [antidiabetic] drugs, initial encounter; Z91.128 Patient's intentional underdosing of medication regimen for other reason; Z53.29 Procedure and treatment not carried out because of patient's decision for other reasons; F15.11 Other stimulant abuse, in remission
CPT/HCPCS: 36415; 36416; 36600; 51702; 71045; 80048; 80051; 80053; 80306; 80307; 81001; 82009; 82330; 82803; 82805; 82962; 83605; 83690; 83735; 84100; 85025; 86140; 87426; 93005; 96361; 96365; 96367; 96372; 99291; J0610; J1650; J1815; J3480; J3490; J7030; J7050; J7799

== ENCOUNTER 2021-03-18 11:36 | Inpatient (IN) | payer MEDICARE, MEDICAID, SELFPAY ==
[2021-03-18] VITALS (26 sets, daily range): BP systolic 101–137; BP diastolic 60–89; PULSE 104–161; RESP 18–42; TEMP 36.4–36.9; O2SAT 95–100; BMI 20.7
--- NOTE | 2021-03-18 11:44 | XR_ITS ---
WS: [id number] Portable AP upright chest, 03/18/2021 Clinical Data: dyspnea/cough Comparison: Portable chest, 03/15/2021. Findings: No nodules, masses or effusions are seen. The heart is normal. The pulmonary vascularity is not increased. No pneumonia or pneumothorax is seen. Monitor leads are on the chest wall. XR/XR chest 1V portable [id number] Impression: Negative chest.
[2021-03-18 11:58] LABS: ABG PH Result 6.86 (7.35-7.45); Arterial Blood Gas Hematocrit 45.5 % (42-52); Base Excess ABG -30.9 mmol/L (-2.0-2.0); Blood Gas Operator Identificat GD; Blood Gas Sample Site Brachial, right; Blood Gas Sample Type Arterial; Carboxyhemoglobin 0.7 %THgb (0.4-20.1); HCO3 ABG 1.4 mmol/L (22-26); HGB O2 Sat 95.5 % (95-100); Ionized Calcium Level - ABG 1.3 mmol/L (1.1-1.4); Methemoglobin 1.6 % (0.4-1.5); Oxygen Device ROOM AIR; Oxygen Saturation ABG 97.7; Potassium Level - ABG 6.6 mmol/L (3.5-5.0); Total Hemoglobin 14.8 g/dL (14-18)
[2021-03-18 11:59] LABS: ABG PCO2 7.9 mmHg (35-45)
[2021-03-18 12:14] LABS: Glucose Point of Care > 600 mg/dL (70-110)
[2021-03-18] MEDS: insulin regular-human 100 units/1 mL 10 UNIT IVP (12:15)
[2021-03-18] MEDS: ondansetron 2 mg/ML SDV 2 mL 4 MG IVP (12:15)
[2021-03-18] MEDS: sodium chloride 0.9% 1,000 ML 999 ML IV ×5 (12:15→19:00)
[2021-03-18] MEDS: sodium bicarbonate 8.4% 1 mEq/mL 50mL Syr 100 MEQ IVP (12:24)
[2021-03-18 12:38] LABS: Glucose Point of Care > 600 mg/dL (70-110)
[2021-03-18 13:39] LABS: Basophils # 0.1 10^3/uL (0.0-0.1); Basophils % 0.8 %; Eosinophils % 0.1 %; Hematocrit 49.7 % (42.0-52.0); Hemoglobin 14.8 g/dL (11.7-16.6); Lymphocytes # 0.8 10^3/uL (0.8-4.8); Lymphocytes % 6.5 %; Mean Corpuscular HGB Conc 29.8 g/dL (30.0-36.0); Mean Corpuscular Hemoglobin 31.8 pg (28.0-34.0); Mean Corpuscular Volume 106.7 fL (80-94); Mean Platelet Volume 10.6 fL (7.4-10.4); Monocytes # 0.5 10^3/uL (0.2-0.9); Monocytes % 4.1 %; Neutrophils # 10.58 10^3/uL (1.8-7.7); Neutrophils % 86.9 %; Nucleated Red Blood Cells % 0 %; Platelet Count 301 10^3/cmm (130-400); Red Blood Count 4.66 10^6/uL (4.1-5.3); Red Cell Distribution Width 13.3 % (12.1-15.1); White Blood Count 12.2 10^3/uL (4.0-10.0)
[2021-03-18 13:39] LABS: Glucose Point of Care 515 mg/dL (70-110)
[2021-03-18 13:49] LABS: Alanine Aminotransferase 23 U/L (0-41); Albumin Level 4.3 g/dL (3.5-5.2); Alkaline Phosphatase 129 IU/L (40-130); Blood Urea Nitrogen 23 mg/dL (6-20); Chloride 94 mmol/L (98-107); Creatine Phosphokinase 104 U/L (39-308); Globulin 2.8 g/dL (1.3-4.6); Lipase 107 U/L (13-60); Magnesium 2.5 mg/dL (1.7-2.3); Osmolality Calculated 310 mOsm/kg (285-295); Sodium 132 mmol/L (136-145); Total Bilirubin 0.2 mg/dL (0.15-1.2); Total Protein 7.1 g/dL (6.6-8.7)
[2021-03-18 13:52] LABS: Ketone (Acetest) Serum Positive (Negative)
[2021-03-18 14:03] LABS: Glucose Point of Care 458 mg/dL (70-110)
--- NOTE | 2021-03-18 14:12 | ED_ITS ---
HPI - General Adult General: Chief complaint: General Medical Stated complaint: HYPERGLYCEMIA Time Seen by Provider: 03/18/21 11:44 History of Present Illness: HPI narrative: 25-year-old male who presents to the emergency room via EMS and DKA. Patient has had multiple admissions in fact had just left AMA last night from the ICU. He has been here several times he has a pump however he is not very compliant. He is unable to answer any questions is having Kussmaul breathing. History from previous charts patient unable to provide any information at this time. Review of Systems General: Reports: ROS unobtainable due to medical condition PFS ED PFS: Medical History DKA (diabetic ketoacidoses) GERD (gastroesophageal reflux disease) Marijuana use Pancreatitis Type 1 diabetes With recurrent admissions for DKA, severe Uncontrolled type 1 diabetes mellitus Surgical History No pertinent past surgical history Family History Other Diabetes Social History Smoking and tobacco status: current every day smoker Alcohol intake: never Lives independently: Yes Household members: significant other Marital status: Single Current occupational status: unemployed Physical Exam Const: ORIENTATION/CONSCIOUSNESS: Yes awake HENMT: COMMON NORMALS: normocephalic, atraumatic and hearing grossly normal bilaterally HEAD & SCALP: normocephalic and atraumatic Neck/C-Spine: COMMON NORMALS: full ROM, no lymphadenopathy, supple and no JVD Lymph: LYMPHATIC: no lymphadenopathy noted and no lymphedema noted Resp: COMMON NORMALS: clear to auscultation bilaterally EFFORT & INSPECTION: Yes tachypneic AUSCULTATION: clear to auscultation bilaterally Cardio: COMMON NORMALS: no JVD and No murmurs present (Cardio) RATE: tachycardic GI: COMMON NORMALS: Soft to palpation and No hepatosplenomegaly present AUSCULTATION: Yes normoactive bowel sounds PALPATION: Yes Soft to palpation, No Tenderness to palpation present (GI), No Guarding due to palpation present (GI) and Yes No hepatosplenomegaly present Extremity: COMMON NORMALS: normal to inspection, no clubbing, cyanosis or e magda, no calf tenderness and no pedal edema Course Vital Signs: Vital signs: Vital Signs Temperature 98.4 F 03/20/21 12:36 Pulse Rate 84 03/20/21 12:36 Respiratory Rate 20 H 03/20/21 12:36 Blood Pressure 117/72 03/20/21 12:36 Pulse Oximetry 100 03/20/21 12:36 MDM - General Adult MDM Narrative: Medical decision making narrative: Patient well-known to our services he returns again today in DKA is a frequent occurrence for him his pH is significantly low this time. Usual protocol was initiated including fluids bicarb insulin drip as and potassium supplementation also treatments for hyperkalemia. Orders written patient admitted to the ICU discussed with hospitalist Lab Data: Labs: Lab Results 03/18/21 03/18/21 03/18/21 Range/Units 11:40 11:46 11:55 WBC 12.2 H (4.0-10.0) 10^3/ uL RBC 4.66 (4.1-5.3) 10^6/u L Hgb 14.8 (11.7-16.6) g/dL Hct 49.7 (42.0-52.0) % MCV 106.7 H (80-94) fL MCH 31.8 (28.0-34.0) pg MCHC 29.8 L (30.0-36.0) g/dL RDW 13.3 (12.1-15.1) % Plt Count 301 (130-400) 10^3/c mm MPV 10.6 H (7.4-10.4) fL Neut % (Auto) 86.9 % Lymph % (Auto) 6.5 % Whiteside % (Auto) 4.1 % Eos % (Auto) 0.1 % Baso % (Auto) 0.8 % Neut # (Auto) 10.58 H (1.8-7.7) 10^3/u L Lymph # (Auto) 0.8 (0.8-4.8) 10^3/u L Whiteside # (Auto) 0.5 (0.2-0.9) 10^3/u L Eos # (Auto) 0.0 (0.0-0.8) 10^3/u L Baso # (Auto) 0.1 (0.0-0.1) 10^3/u L Nucleated RBC % (a uto) 0 % Nucleated RBCs # 0.0 /100WBC Specimen Type Arterial Sample Site Brachial, right ABG pH 6.86 L* (7.35-7.45) ABG pCO2 7.9 L* (35-45) mmHg ABG pO2 146.0 H (80.0-100.0) mmH g ABG HCO3 1.4 L (22-26) mmol/L ABG O2 Saturation 97.7 ABG Base Excess -30.9 L (-2.0-2.0) mmol/ L Hasmukh Test N/a A-a O2 Gradient Not Reportable Hematocrit 45.5 (42-52) % Hgb O2 Saturation 95.5 (95-100) % Carboxyhemoglobin 0.7 (0.4-20.1) %THgb Methemoglobin 1.6 H (0.4-1.5) % Total Hemoglobin 14.8 (14-18) g/dL Sodium 137.0 (131-143) mmol/L Potassium 6.6 H (3.5-5.0) mmol/L Glucose 729.0 H (70-115) mg/dL Ionized Calcium 1.3 (1.1-1.4) mmol/L O2 Delivery Device Room air Director Strategic Planning ID Gd Chloride (98-107) mmol/L Carbon Dioxide (22-29) mmol/L Anion Gap (5-19) BUN (6-20) mg/dL Creatinine (0.7-1.2) mg/dL GFR Calculation (90-130) mL/min POC Glucose > 600 H* (70-110) mg/dL Calculated Osmolal ity (285-295) mOsm/k g Calcium (8.5-10.5) mg/dL Magnesium (1.7-2.3) mg/dL Total Bilirubin (0.15-1.2) mg/dL AST (0-40) U/L ALT (0-41) U/L Alkaline Phosphata se (40-130) IU/L Creatine Kinase (39-308) U/L Total Protein (6.6-8.7) g/dL Albumin (3.5-5.2) g/dL Globulin (1.3-4.6) g/dL Lipase (13-60) U/L Serum Ketones (Negative) 03/18/21 03/18/21 03/18/21 Range/Units 11:55 11:55 12:30 WBC (4.0-10.0) 10^3/ uL RBC (4.1-5.3) 10^6/u L Hgb (11.7-16.6) g/dL Hct (42.0-52.0) % MCV (80-94) fL MCH (28.0-34.0) pg MCHC (30.0-36.0) g/dL RDW (12.1-15.1) % Plt Count (130-400) 10^3/c mm MPV (7.4-10.4) fL Neut % (Auto) % Lymph % (Auto) % Whiteside % (Auto) % Eos % (Auto) % Baso % (Auto) % Neut # (Auto) (1.8-7.7) 10^3/u L Lymph # (Auto) (0.8-4.8) 10^3/u L Whiteside # (Auto) (0.2-0.9) 10^3/u L Eos # (Auto) (0.0-0.8) 10^3/u L Baso # (Auto) (0.0-0.1) 10^3/u L Nucleated RBC % (a uto) % Nucleated RBCs # /100WBC Specimen Type Sample Site ABG pH (7.35-7.45) ABG pCO2 (35-45) mmHg ABG pO2 (80.0-100.0) mmH g ABG HCO3 (22-26) mmol/L ABG O2 Saturation ABG Base Excess (-2.0-2.0) mmol/ L Hasmukh Test A-a O2 Gradient Hematocrit (42-52) % Hgb O2 Saturation (95-100) % Carboxyhemoglobin (0.4-20.1) %THgb Methemoglobin (0.4-1.5) % Total Hemoglobin (14-18) g/dL Sodium 132 L (131-143) mmol/L Potassium 7.1 H* D (3.5-5.0) mmol/L Glucose 685 H* (70-115) mg/dL Ionized Calcium (1.1-1.4) mmol/L O2 Delivery Device Director Strategic Planning ID Chloride 94 L (98-107) mmol/L Carbon Dioxide 2 L* (22-29) mmol/L Anion Gap 43.1 H (5-19) BUN 23 H (6-20) mg/dL Creatinine 1.2 (0.7-1.2) mg/dL GFR Calculation 75.0 L (90-130) mL/min POC Glucose > 600 H* (70-110) mg/dL Calculated Osmolal ity 310 H (285-295) mOsm/k g Calcium 9.0 (8.5-10.5) mg/dL Magnesium 2.5 H (1.7-2.3) mg/dL Total Bilirubin 0.2 (0.15-1.2) mg/dL AST 20 (0-40) U/L ALT 23 (0-41) U/L Alkaline Phosphata se 129 (40-130) IU/L Creatine Kinase 104 (39-308) U/L Total Protein 7.1 D (6.6-8.7) g/dL Albumin 4.3 (3.5-5.2) g/dL Globulin 2.8 (1.3-4.6) g/dL Lipase 107 H (13-60) U/L Serum Ketones Positive H (Negative) 03/18/21 03/18/21 Range/Units 13:36 14:00 WBC (4.0-10.0) 10^3/ uL RBC (4.1-5.3) 10^6/u L Hgb (11.7-16.6) g/dL Hct (42.0-52.0) % MCV (80-94) fL MCH (28.0-34.0) pg MCHC (30.0-36.0) g/dL RDW (12.1-15.1) % Plt Count (130-400) 10^3/c mm MPV (7.4-10.4) fL Neut % (Auto) % Lymph % (Auto) % Whiteside % (Auto) % Eos % (Auto) % Baso % (Auto) % Neut # (Auto) (1.8-7.7) 10^3/u L Lymph # (Auto) (0.8-4.8) 10^3/u L Whiteside # (Auto) (0.2-0.9) 10^3/u L Eos # (Auto) (0.0-0.8) 10^3/u L Baso # (Auto) (0.0-0.1) 10^3/u L Nucleated RBC % (a uto) % Nucleated RBCs # /100WBC Specimen Type Sample Site ABG pH (7.35-7.45) ABG pCO2 (35-45) mmHg ABG pO2 (80.0-100.0) mmH g ABG HCO3 (22-26) mmol/L ABG O2 Saturation ABG Base Excess (-2.0-2.0) mmol/ L Hasmukh Test A-a O2 Gradient Hematocrit (42-52) % Hgb O2 Saturation (95-100) % Carboxyhemoglobin (0.4-20.1) %THgb Methemoglobin (0.4-1.5) % Total Hemoglobin (14-18) g/dL Sodium (131-143) mmol/L Potassium (3.5-5.0) mmol/L Glucose (70-115) mg/dL Ionized Calcium (1.1-1.4) mmol/L O2 Delivery Device Director Strategic Planning ID Chloride (98-107) mmol/L Carbon Dioxide (22-29) mmol/L Anion Gap (5-19) BUN (6-20) mg/dL Creatinine (0.7-1.2) mg/dL GFR Calculation (90-130) mL/min POC Glucose 515 H* 458 H (70-110) mg/dL Calculated Osmolal ity (285-295) mOsm/k g Calcium (8.5-10.5) mg/dL Magnesium (1.7-2.3) mg/dL Total Bilirubin (0.15-1.2) mg/dL AST (0-40) U/L ALT (0-41) U/L Alkaline Phosphata se (40-130) IU/L Creatine Kinase (39-308) U/L Total Protein (6.6-8.7) g/dL Albumin (3.5-5.2) g/dL Globulin (1.3-4.6) g/dL Lipase (13-60) U/L Serum Ketones (Negative) Discharge Plan Discharge Patient Disposition: Admitted As Inpatient Admit Provider: Ahmed,Arif Clinical Impression: DKA (diabetic ketoacidoses), Noncompliance with diabetes treatment Condition: Stable Coding Level of Care Code ED Grant Writer for Chg Fwd Exam Comprehensive
[2021-03-18 14:19] LABS: Anion Gap 43.1 (5-19); Carbon Dioxide 2 mmol/L (22-29); Glucose 685 mg/dL (65-115)
[2021-03-18 14:20] LABS: Aspartate Amino Transferase 20 U/L (0-40); Potassium 7.1 mmol/L (3.5-5.1)
[2021-03-18 14:34] LABS: Glucose Point of Care 444 mg/dL (70-110)
[2021-03-18] MEDS: calcium gluconate 0.1 gm/mL 10% SDV 10mL 2 GM IVP (14:54)
[2021-03-18 15:29] LABS: Anion Gap 39.5 (5-19); Blood Urea Nitrogen 20 mg/dL (6-20); Calcium 8.2 mg/dL (8.5-10.5); Chloride 105 mmol/L (98-107); Glomerular Filtration Rate 104.6 mL/min (90-130); Glucose 473 mg/dL (65-115); Osmolality Calculated 315 mOsm/kg (285-295); Potassium 5.5 mmol/L (3.5-5.1); Sodium 141 mmol/L (136-145)
[2021-03-18 15:33] LABS: Carbon Dioxide 2 mmol/L (22-29)
--- NOTE | 2021-03-18 15:36 | PC.NURSE ---
critical lab of co2 of 2 given to
[2021-03-18 16:10] LABS: Glucose Point of Care 414 mg/dL (70-110)
--- NOTE | 2021-03-18 16:24 | PM.HP ---
Providers/Chief Complaint Admitting Physician: Jess Martines MD Primary Care Provider: MARGE Castellano Chief Complaint: HYPERGLYCEMIA History of Present Illness Salvatore Ott is a 25 year old male with past medical history of type 1 diabetes presented to the emergency room via EMS for DKA. He left AGAINST MEDICAL ADVICE yesterday from the ICU. His anion gap was not closed. The patient has an insulin pump that he is not compliant with. His vitals were noted to be unstable in the ER including being tachypneic as well as tachycardic. His blood sugars were also elevated.In the ED patient noted to have FSBS > 700 he has been confused. Review of Systems General: Reports: ROS unobtainable due to mental status Medications/Allergies Home Medications Medication Instructions Recorded Confirmed Last Taken Type blood-glucose meter,continuous #1 ea 11/26/20 03/18/21 Unknown Rx blood-glucose sensor #3 ea 11/26/20 03/18/21 Unknown Rx blood-glucose transmitter #3 ea 11/26/20 03/18/21 Unknown Rx insulin aspart U-100 [Novolog See Rx Instructions .ROUTE .COMPLEX 02/16/21 03/18/21 02/15/21 History Flexpen U-100 Insulin] Lantus U-100 Insulin 35 unit SUBCUT BID 03/15/21 03/18/21 03/14/21 History famotidine 20 mg PO BID 03/15/21 03/18/21 Unknown History Allergies Allergy/AdvReac Type Severity Reaction Status Date / Time promethazine [From Phenergan] Allergy Unknown Verified 03/18/21 12:01 PFSH Acute PFSH: Medical History DKA (diabetic ketoacidoses) GERD (gastroesophageal reflux disease) Marijuana use Pancreatitis Type 1 diabetes With recurrent admissions for DKA, severe Uncontrolled type 1 diabetes mellitus Surgical History No pertinent past surgical history Family History Other Diabetes Social History Smoking and tobacco status: current every day smoker Alcohol intake: never Lives independently: Yes Household members: significant other Marital status: Single Current occupational status: unemployed Vitals/I&O/Wt Last Vital Signs Temp 97.5 F L 03/18/21 11:56 Pulse 156 H 03/18/21 15:20 Resp 40 H 03/18/21 15:20 BP 127/84 03/18/21 15:20 Pulse Ox 100 03/18/21 15:20 03/18/21 03/18/21 03/18/21 06:59 14:59 22:59 Intake Total 1000 / 1000 466.2 / 1466.2 Output Total 2300 / 2300 Balance 1000 / 1000 -1833.8 / -833.8 Weight last 48 hrs Weight 140 lb Physical Exam Chest: COMMONS NORMALS: normal inspection of the chest Resp: EFFORT & INSPECTION: Yes abnormal respiratory pattern, Yes tachypneic and Yes respiratory distress Cardio: RATE: regular rate and tachycardic Psych: ATTITUDE: Yes Other attitude/behavior findings present (Psych) Data : 03/18/21 11:55 03/18/21 15:05 A&P Assessment and plan (1) Metabolic acidosis: Status: Acute (2) Tachycardia: Status: Acute (3) Hyperkalemia: Status: Acute (4) BALWINDER (acute kidney injury): Status: Acute (5) DKA (diabetic ketoacidoses): Status: Acute Qualifiers: Diabetes mellitus complication detail: without coma Diabetes mellitus type: type 1 Qualified Code(s): E10.10 - Type 1 diabetes mellitus with ketoacidosis without coma (6) Methamphetamine abuse: Status: Acute Additional A&P Information #DKA --admit to ICU --insulin gtt, bicarb gtt, NS at 200 hr --fsbs q1 hour --BMP, VBG q4h #Metabolic acidosis --start bicarb gtt #delerium --likely 2/2 above, check CT head #tachycardia --ivf, monitor Hyperkalemia --calcium glu given in er, repeat bmp #history of polysubstance abuse --check UDS DVT: Lovenox Attestations Medical Necessity Statement*: [facility] stay will require greater than 2 midnights for dka Coding Level of Care Code Acute Diet Assistant for Chg Fwd Diagnoses Metabolic acidosis E87.2 Tachycardia R00.0 Hyperkalemia E87.5 BALWINDER (acute kidney injury) N17.9 DKA (diabetic ketoacidoses) E10.10 Diabetes mellitus complication detail: without coma Diabetes mellitus type: type 1 Methamphetamine abuse F15.10
--- NOTE | 2021-03-18 17:02 | PC.NURSE ---
soft restraints applied to bilateral wrists with assist of 4 staff. patient is non redirectable and gets out of bed his iv lines are pulled taut and he pushes against me trying to keep walking. he is recognizing his name otherwise isnt comprehending instruction or direction. we assisted him back to bed which he resists we placed him in soft restraints and patient now has a 1:1 sitter. he is normotensive with kussmaul respirations at a rate of 32 O2sat is 100% and he is sinus tachycardia on the monitor.
[2021-03-18 17:23] LABS: Glucose Point of Care 411 mg/dL (70-110)
--- NOTE | 2021-03-18 17:33 | CTR_ITS ---
PROCEDURE INFORMATION: Exam: CT Head Without Contrast Exam date and time: 03/18/2021 5:33 PM Age: 25 years old Clinical indication: Altered mental status/memory loss; Additional info: Delerium TECHNIQUE: Imaging protocol: Computed tomography of the head without contrast. Radiation optimization: All CT scans at this facility use at least one of these dose optimization techniques: automated exposure control; mA and/or kV adjustment per patient size (includes targeted exams where dose is matched to clinical indication); or iterative reconstruction. COMPARISON: CT head wo con* [id number] 10/31/2020 10:28 PM RADIATION DOSE METRICS: Total DLP (mGy-cm): 1374.17 FINDINGS: Brain: Normal. No hemorrhage. Unremarkable white matter. No mass effect. Cerebral ventricles: No ventriculomegaly. Paranasal sinuses: Visualized sinuses are unremarkable. No fluid levels. Mastoid air cells: Visualized mastoid air cells are well aerated. Bones/joints: Unremarkable. No acute fracture. Soft tissues: Unremarkable. CT/CT head wo con* [id number] IMPRESSION: No acute intracranial abnormality. Radiation Dose CTDIVOL = (mGy): DLP = 1374.17 (mGy-cm)
--- NOTE | 2021-03-18 17:39 | PC.NURSE ---
report to Mariella LYN
--- NOTE | 2021-03-18 18:17 | PC.NURSE ---
[address] and then to floor
[2021-03-18 18:55] LABS: Glucose Point of Care 288 mg/dL (70-110)
[2021-03-18] MEDS: sodium bicarbonate 150 MEQ in dextrose 5% 1,000 ML 100 MEQ IV (19:01)
[2021-03-18] MEDS: insulin regular-human 250 UNIT in sodium chloride 0.9% 250 ML 6.8 UNIT IV (19:04)
[2021-03-18 20:29] LABS: Blood Urea Nitrogen 15 mg/dL (6-20); Calcium 7.7 mg/dL (8.5-10.5); Chloride 114 mmol/L (98-107); Creatinine Clr Calc Pharmacy 137.7618; Glomerular Filtration Rate 119.8 mL/min (90-130); Glucose 248 mg/dL (65-115); Osmolality Calculated 305 mOsm/kg (285-295); Sodium 143 mmol/L (136-145)
[2021-03-18 20:31] LABS: Anion Gap 31.4 (5-19); Potassium 5.4 mmol/L (3.5-5.1)
[2021-03-18 20:33] LABS: Carbon Dioxide 3 mmol/L (22-29)
[2021-03-18] MEDS: sodium chloride 0.9% 1,000 ML 200 ML IV (21:15)
[2021-03-18 21:16] LABS: Blood Gas Operator Identificat JB; Blood Gas Sample Type Venous; Oxygen Device ROOM AIR
[2021-03-18 21:21] LABS: Venous Blood Gas Hematocrit 40.3 % (42-52)
[2021-03-18 21:22] LABS: Base Excess VBG -21.1 mmol/L (-3.0-3.0); HCO3 VBG 5.4 mmol/L (24-28); PCO2 VBG 15.3 mmHg (41-51); PO2 VBG 70.2 mmHg (25-40); pH VBG 7.16 (7.32-7.42)
[2021-03-18 21:38] LABS: Blood Urea Nitrogen 11 mg/dL (6-20); Calcium 7.5 mg/dL (8.5-10.5); Chloride 117 mmol/L (98-107); Creatinine Clr Calc Pharmacy 137.7618; Glomerular Filtration Rate 119.8 mL/min (90-130); Glucose 154 mg/dL (65-115); Lactate (Lactic Acid level) 0.9 mmol/L (0.5-2.2); Osmolality Calculated 300 mOsm/kg (285-295); Sodium 144 mmol/L (136-145)
[2021-03-18 21:42] LABS: Carbon Dioxide 6 mmol/L (22-29)
--- NOTE | 2021-03-18 23:35 | PC.NURSE ---
Dr. Martines called for update on patient, report given.
[2021-03-19] VITALS (35 sets, daily range): BP systolic 105–123; BP diastolic 59–83; PULSE 79–109; RESP 13–22; TEMP 36.6–36.9; O2SAT 96–100
[2021-03-19] MEDS: dextrose 5%-sod chloride 0.45% 1,000 ML 200 ML IV ×3 (00:49→11:57)
[2021-03-19 01:11] LABS: Venous Blood Gas Hematocrit 39.1 % (42-52); pH VBG 7.42 (7.32-7.42)
[2021-03-19 01:12] LABS: Base Excess VBG -14.2 mmol/L (-3.0-3.0); Blood Gas Operator Identificat JB; HCO3 VBG 11.6 mmol/L (24-28); Oxygen Device ROOMAIR
[2021-03-19 01:13] LABS: Blood Gas Sample Type VENOUS
--- NOTE | 2021-03-19 02:23 | PC.NURSE ---
PO2 -104, Blood drawn from Midline catheter due to patient being hard IV stick and multiple attempts from lab. RT questioned if midline was in Artery due to PO2 being 104. I checked for visual pulse to blood return which it did not. I inserted line via ultrasound and am certain line is venous. I had no complications with insertion or indication of arterial access. PO2 likely elevated due to midline being 3fr.
[2021-03-19 03:11] LABS: Anion Gap 27.6 (5-19); Blood Urea Nitrogen 8 mg/dL (6-20); Calcium 7.3 mg/dL (8.5-10.5); Chloride 113 mmol/L (98-107); Glomerular Filtration Rate 118.8 mL/min (90-130); Glucose 220 mg/dL (65-115); Osmolality Calculated 305 mOsm/kg (285-295); Potassium 3.6 mmol/L (3.5-5.1); Sodium 145 mmol/L (136-145)
[2021-03-19 03:26] LABS: Carbon Dioxide 8 mmol/L (22-29)
[2021-03-19] MEDS: lidocaine 1% 5 ML in potassium chloride premix 100 ML 25 ML IV (04:27)
[2021-03-19 04:29] LABS: Blood Gas Operator Identificat JB; Blood Gas Sample Site LINE; Blood Gas Sample Type Venous; Oxygen Device ROOM AIR
[2021-03-19 04:32] LABS: Base Excess VBG -14.9 mmol/L (-3.0-3.0); HCO3 VBG 10.4 mmol/L (24-28); PCO2 VBG 23.5 mmHg (41-51); PO2 VBG 76.2 mmHg (25-40); Venous Blood Gas Hematocrit 38.2 % (42-52); pH VBG 7.26 (7.32-7.42)
[2021-03-19 05:13] LABS: Basophils % 0.4 %; Hematocrit 37.2 % (42.0-52.0); Hemoglobin 11.9 g/dL (11.7-16.6); Lymphocytes # 0.6 10^3/uL (0.8-4.8); Lymphocytes % 7.8 %; Mean Corpuscular Hemoglobin 31.7 pg (28.0-34.0); Mean Corpuscular Volume 99.2 fL (80-94); Mean Platelet Volume 9.7 fL (7.4-10.4); Monocytes # 0.5 10^3/uL (0.2-0.9); Monocytes % 5.9 %; Neutrophils % 85.5 %; Nucleated Red Blood Cells % 0 %; Platelet Count 158 10^3/cmm (130-400); Red Blood Count 3.75 10^6/uL (4.1-5.3); Red Cell Distribution Width 13.7 % (12.1-15.1); White Blood Count 8.2 10^3/uL (4.0-10.0)
[2021-03-19 05:40] LABS: Alanine Aminotransferase 16 U/L (0-41); Albumin Level 3.2 g/dL (3.5-5.2); Alkaline Phosphatase 73 IU/L (40-130); Anion Gap 25.4 (5-19); Aspartate Amino Transferase 9 U/L (0-40); Blood Urea Nitrogen 7 mg/dL (6-20); Calcium 7.2 mg/dL (8.5-10.5); Carbon Dioxide 10 mmol/L (22-29); Chloride 110 mmol/L (98-107); Globulin 2.1 g/dL (1.3-4.6); Glomerular Filtration Rate 138.6 mL/min (90-130); Glucose 338 mg/dL (65-115); Osmolality Calculated 305 mOsm/kg (285-295); Potassium 3.4 mmol/L (3.5-5.1); Sodium 142 mmol/L (136-145); Total Bilirubin 0.5 mg/dL (0.15-1.2); Total Protein 5.3 g/dL (6.6-8.7)
[2021-03-19] MEDS: sodium bicarbonate 150 MEQ in dextrose 5% 1,000 ML 100 MEQ IV ×2 (06:04→17:53)
[2021-03-19] MEDS: lidocaine 1% 5 ML in potassium chloride premix 100 ML 50 ML IV (09:05)
[2021-03-19 09:12] LABS: Glucose Point of Care 139 mg/dL (70-110)
[2021-03-19 09:12] LABS: Glucose Point of Care 189 mg/dL (70-110)
[2021-03-19 09:12] LABS: Glucose Point of Care 304 mg/dL (70-110)
[2021-03-19 09:12] LABS: Glucose Point of Care 221 mg/dL (70-110)
[2021-03-19 09:12] LABS: Glucose Point of Care 255 mg/dL (70-110)
[2021-03-19 09:13] LABS: Glucose Point of Care 280 mg/dL (70-110)
--- NOTE | 2021-03-19 09:18 | PC.CHAP ---
Pastoral Care Encounter/Spiritual Assessment Type of Contact [] Declined faculty criminal justice visit [] Patient/Family/Request visit [] Outpatient visit [] Follow-up visit [] Physician referral [] Code/Alert [x] Routine visit [] Staff referral [] Actively dying [x] Patient sleeping [] Family support [] [] Out of room [] Palliative care [] [] Receiving care in room [] Pre-surgical visit [] Trauma [] Long length of stay [x] ICU visit [] Other: Relational/Emotional Strength [] Patient feels connected with others/family/visitors/staff [] Distress [] Loneliness/isolation [] Abandonment Spirituality of Patient [] Person of Emily [] Attends [employer] of their Emily [] Believes in Prayer [] Reads Bible or Alevism materials [] There are Spiritual issues to be addressed Brewery Pumper Interventions [x] Prayer [] Active listening [] Non-anxious presence [] Spiritual/emotional support [] Crisis/trauma care [] Spiritual counseling [] Bereavement support [] Provided bereavement packet [] Provided Bible/devotional materials [] Provided toy/stuffed animal, coloring book to patient or family member [] Provided Communion [] Anointing/[place] [] Salvation [x] Completed spiritual assessment [] Other: Impact on Illness or Injury [] Angry [] Fearful [] Anxious [] Often cries [] Exhaustion [] Unable to work [] Unable to attend pentecostalism [] Unable to walk/stand [] Unable to read [] Unable to drive [] Unable to eat/drink [] Unable to sleep [] Unable to be with family [] Patient intubated [] Other: Summary Time spent with patient
[2021-03-19 10:09] LABS: Glucose Point of Care 291 mg/dL (70-110)
[2021-03-19 10:09] LABS: Glucose Point of Care 289 mg/dL (70-110)
[2021-03-19 10:09] LABS: Glucose Point of Care 277 mg/dL (70-110)
[2021-03-19 10:09] LABS: Glucose Point of Care 278 mg/dL (70-110)
[2021-03-19 10:09] LABS: Glucose Point of Care 255 mg/dL (70-110)
[2021-03-19 10:54] LABS: Glucose Point of Care 336 mg/dL (70-110)
[2021-03-19 11:10] LABS: Blood Gas Operator Identificat AMH; Blood Gas Sample Type Venous
[2021-03-19 11:15] LABS: Base Excess VBG -6.3 mmol/L (-3.0-3.0); HCO3 VBG 18.2 mmol/L (24-28); Oxygen Device RA; PCO2 VBG 32.5 mmHg (41-51); PO2 VBG 49.7 mmHg (25-40); Venous Blood Gas Hematocrit 37.7 % (42-52); pH VBG 7.36 (7.32-7.42)
[2021-03-19 11:16] LABS: Blood Gas Sample Site VENOUS
[2021-03-19 11:31] LABS: Anion Gap 19.3 (5-19); Blood Urea Nitrogen 4 mg/dL (6-20); Calcium 7.3 mg/dL (8.5-10.5); Carbon Dioxide 17 mmol/L (22-29); Chloride 107 mmol/L (98-107); Glomerular Filtration Rate 165.5 mL/min (90-130); Glucose 330 mg/dL (65-115); Osmolality Calculated 300 mOsm/kg (285-295); Potassium 3.3 mmol/L (3.5-5.1); Sodium 140 mmol/L (136-145)
[2021-03-19 12:02] LABS: Glucose Point of Care 186 mg/dL (70-110)
[2021-03-19 13:05] LABS: Glucose Point of Care 198 mg/dL (70-110)
[2021-03-19 14:08] LABS: Glucose Point of Care 210 mg/dL (70-110)
--- NOTE | 2021-03-19 14:58 | PM.PN ---
Subjective Subjective: Interval history: 25-year-old male admitted with DKA Fingerstick blood sugars better more awake. Anion gap still present respiratory better denies feeling depressed Medications: Reviewed: Yes Vitals/I&O/Wt Last Vital Signs Temp 98.0 F 03/19/21 02:16 Pulse 92 03/19/21 06:44 Resp 20 H 03/19/21 04:00 BP 109/65 03/19/21 04:00 Pulse Ox 98 03/19/21 04:00 03/18/21 03/19/21 03/19/21 22:59 06:59 14:59 Intake Total 3479.89 / 4479.89 2845.211 / 7325.101 1000 / 1000 Output Total 2300 / 2300 2450 / 4750 Balance 1179.89 / 2179.89 395.211 / 2575.101 1000 / 1000 Weight last 48 hrs Weight 140 lb Physical Exam Const: COMMON NORMALS: no acute distress and patient oriented x3 Resp: COMMON NORMALS: No retractions, No use of accessory muscles and clear to auscultation bilaterally AUSCULTATION: clear to auscultation bilaterally Cardio: COMMON NORMALS: regular rate and regular rhythm RATE: regular rate RHYTHM: regular rhythm GI: COMMON NORMALS: Soft to palpation and non-tender PALPATION: Yes Soft to palpation Neuro: COMMON NORMALS: patient oriented x3 Urinary Catheter Management^: Burger: Cath Placed During This Visit: yes Reason for Continuing Indwelling Catheter: Accurate Measurement of Urinary Output in Critically Ill Patients Urinary Catheter Date of Insertion: 03/18/21 Urinary Catheter Time of Insertion: 19:00 Data : 03/19/21 04:19 03/19/21 10:45 Micro: Microbiology 03/18/21 21:08 Blood Culture - Preliminary Blood SPECIMEN COLLECTED 03/18/21 20:02 Blood Culture - Preliminary Blood SPECIMEN COLLECTED A&P Assessment and plan (1) DKA (diabetic ketoacidoses): Status: Acute Qualifiers: Diabetes mellitus complication detail: without coma Diabetes mellitus type: type 1 Qualified Code(s): E10.10 - Type 1 diabetes mellitus with ketoacidosis without coma (2) BALWINDER (acute kidney injury): Status: Acute (3) Metabolic acidosis: Status: Acute Additional A&P Information #DKA --insulin gtt, bicarb gtt,D5 1/2 NS --change to add K --fsbs q1 hour --BMP, VBG q4h #hypokalemia --replace and recheck #Metabolic acidosis --start bicarb gtt #delerium --resolved, ct head negative #tachycardia --ivf, monitor #history of polysubstance abuse DVT: Lovenox Attestations Medical Necessity Statement*: [facility]'s hospital stay will require greater than 2 midnights for DKA Coding Level of Care Code Acute Meat Inspector for [facility] Fwd Diagnoses DKA (diabetic ketoacidoses) E10.10 Diabetes mellitus complication detail: without coma Diabetes mellitus type: type 1 BALWINDER (acute kidney injury) N17.9 Metabolic acidosis E87.2
[2021-03-19 15:22] LABS: Glucose Point of Care 162 mg/dL (70-110)
[2021-03-19 15:25] LABS: Anion Gap 15.7 (5-19); Blood Urea Nitrogen 3 mg/dL (6-20); Calcium 7.3 mg/dL (8.5-10.5); Carbon Dioxide 21 mmol/L (22-29); Chloride 105 mmol/L (98-107); Glomerular Filtration Rate 204.3 mL/min (90-130); Glucose 208 mg/dL (65-115); Osmolality Calculated 291 mOsm/kg (285-295); Sodium 139 mmol/L (136-145)
[2021-03-19 15:27] LABS: Potassium 2.7 mmol/L (3.5-5.1)
[2021-03-19] MEDS: potassium chloride oral liq 20 mEq/15 mL UDC 40 MEQ PO (15:56)
[2021-03-19] MEDS: potassium chloride premix 100 ML 25 MEQ IV (15:56)
[2021-03-19 16:30] LABS: Glucose Point of Care 173 mg/dL (70-110)
[2021-03-19] MEDS: D5-NS 0.45% + KCL 20 mEq 20 MEQ/1,000 ML BAG 200 MEQ IV ×2 (16:54→22:01)
[2021-03-19 19:14] LABS: Anion Gap 11.1 (5-19); Blood Urea Nitrogen 2 mg/dL (6-20); Calcium 6.6 mg/dL (8.5-10.5); Carbon Dioxide 21 mmol/L (22-29); Chloride 110 mmol/L (98-107); Glomerular Filtration Rate 264.3 mL/min (90-130); Glucose 161 mg/dL (65-115); Osmolality Calculated 288 mOsm/kg (285-295); Potassium 3.1 mmol/L (3.5-5.1); Sodium 139 mmol/L (136-145)
[2021-03-19] MEDS: potassium chloride premix 100 ML 50 MEQ IV (19:42)
[2021-03-19 21:14] LABS: Glucose Point of Care 199 mg/dL (70-110)
[2021-03-19 21:58] LABS: Glucose Point of Care 180 mg/dL (70-110)
[2021-03-19 21:59] LABS: Glucose Point of Care 295 mg/dL (70-110)
[2021-03-19 22:14] LABS: Glucose Point of Care 126 mg/dL (70-110)
[2021-03-19 23:33] LABS: Anion Gap 10.2 (5-19); Blood Urea Nitrogen 2 mg/dL (6-20); Calcium 7.1 mg/dL (8.5-10.5); Carbon Dioxide 25 mmol/L (22-29); Chloride 105 mmol/L (98-107); Glomerular Filtration Rate 264.3 mL/min (90-130); Glucose 198 mg/dL (65-115); Osmolality Calculated 286 mOsm/kg (285-295); Potassium 3.2 mmol/L (3.5-5.1); Sodium 137 mmol/L (136-145)
[2021-03-19 23:33] LABS: Glucose Point of Care 162 mg/dL (70-110)
[2021-03-20] VITALS (18 sets, daily range): BP systolic 96–157; BP diastolic 49–95; PULSE 72–98; RESP 11–32; TEMP 36.9; O2SAT 95–100
[2021-03-20] MEDS: potassium chloride ER 20 mEq Tablet 40 MEQ PO (01:04)
[2021-03-20 01:13] LABS: Glucose Point of Care 215 mg/dL (70-110)
[2021-03-20] MEDS: insulin glargine 100 units/1 mL 10 UNIT SUBCUT (01:46)
--- NOTE | 2021-03-20 01:48 | PC.NURSE ---
Insulin gtt ordered to turn gtt and D5 1/2ns c 20kcl off 1 hour after 10 units Lantus subcu. Sodium bicarb stopped.
[2021-03-20 03:20] LABS: Anion Gap 9.5 (5-19); Blood Urea Nitrogen 2 mg/dL (6-20); Calcium 7.2 mg/dL (8.5-10.5); Carbon Dioxide 27 mmol/L (22-29); Chloride 105 mmol/L (98-107); Glomerular Filtration Rate 204.3 mL/min (90-130); Glucose 278 mg/dL (65-115); Osmolality Calculated 292 mOsm/kg (285-295); Potassium 3.5 mmol/L (3.5-5.1); Sodium 138 mmol/L (136-145)
[2021-03-20 04:51] LABS: Glucose Point of Care 196 mg/dL (70-110)
[2021-03-20 07:58] LABS: Glucose Point of Care 188 mg/dL (70-110)
[2021-03-20] MEDS: insulin glargine 100 units/1 mL 35 UNIT SUBCUT (08:39)
--- NOTE | 2021-03-20 10:50 | P.DS_ITS ---
Discharge Providers Date of Admission: 03/18/21 14:29 Date of Discharge: March 20, 2021 Attending Provider at Admission: Jess Martines MD Attending Provider at Discharge: Jess Martines MD Primary Care Provider: MARGE Castellano Diagnoses at Discharge Discharge Diagnosis (1) DKA (diabetic ketoacidoses): Status: Acute Qualifiers: Diabetes mellitus complication detail: without coma Diabetes mellitus type: type 1 Qualified Code(s): E10.10 - Type 1 diabetes mellitus with ketoacidosis without coma (2) BALWINDER (acute kidney injury): Status: Acute (3) Metabolic acidosis: Status: Acute Reason for Visit Reason for Visit: HYPERGLYCEMIA Hospital Course Hospital Course H&P Salvatore Ott is a 25 year old male with past medical history of type 1 diabetes presented to the emergency room via EMS for DKA. He left AGAINST MEDICAL ADVICE yesterday from the ICU. His anion gap was not closed. The patient has an insulin pump that he is not compliant with. His vitals were noted to be unstable in the ER including being tachypneic as well as tachycar dic. His blood sugars were also elevated.In the ED patient noted to have FSBS > 700 he has been confused. Hospital course: Patient was admitted to the ICU. He was placed on insulin drip bicarb drip given fluids. His VBG and BMP was monitored. His gap closed. Subcutaneous insulin was started. Potassium was also replaced and monitored. He was started on diet. Vitals have been stable. He was discharged in stable condition. A prescription for a glucometer was given. Recommended to restart his insulin pump. We did discuss readmission. He denies depression. And states he will try to do better with compliance. Physical Exam Const: COMMON NORMALS: no acute distress, patient oriented x3 and no limitations Neck/C-Spine: COMMON NORMALS: no JVD Chest: COMMONS NORMALS: normal inspection of the chest Resp: COMMON NORMALS: normal respiratory effort and No retractions Cardio: COMMON NORMALS: no JVD and regular rate RATE: regular rate GI: COMMON NORMALS: Soft to palpation and non-tender PALPATION: Yes Soft to palpation Neuro: COMMON NORMALS: patient oriented x3 Psych: COMMON NORMALS: mental status grossly normal Skin: COMMON NORMALS: no rashes or lesions noted GENERAL SKIN EXAM: no rashes or lesions noted Urinary Catheter Management^: Burger: Cath Placed During This Visit: yes Reason for Continuing Indwelling Catheter: Accurate Measurement of Urinary Output in Critically Ill Patients Urinary Catheter Date of Insertion: 03/18/21 Urinary Catheter Time of Insertion: 19:00 Discharge Data Data Completed and Pending: Completed Studies During Hospitalization Category Date Time Status CT head wo con* [id number] Stat Cat Scan 03/18/21 17:33 Completed XR chest 1V merry ble [id number] Stat Exams 03/18/21 11:44 Completed Pending at discharge Category Date Time Status Blood Culture Sta t Lab 03/18/21 21:08 Results Drug Screen, Urin e Routine Lab 03/18/21 17:38 Ordered Urinalysis Stat Lab 03/18/21 12:41 Ordered Labs from last 24 hours 03/20/21 03/20/21 03/20/21 07:56 04:47 02:35 Specimen Type Sample Site Hasmukh Test VBG pH VBG pCO2 VBG pO2 VBG HCO3 VBG Base Excess VBG Hematocrit O2 Delivery Device Specimen Drawn By Sales Department Manager ID Sodium 138 Potassium 3.5 Chloride 105 Carbon Dioxide 27 Anion Gap 9.5 BUN 2 L Creatinine 0.5 L GFR Calculation 204.3 H Glucose 278 H POC Glucose 188 H 196 H Calculated Osmolal ity 292 Calcium 7.2 L 03/20/21 03/19/21 03/19/21 01:08 23:30 22:40 Specimen Type Sample Site Hasmukh Test VBG pH VBG pCO2 VBG pO2 VBG HCO3 VBG Base Excess VBG Hematocrit O2 Delivery Device Specimen Drawn By Sales Department Manager ID Sodium 137 Potassium 3.2 L Chloride 105 Carbon Dioxide 25 Anion Gap 10.2 BUN 2 L Creatinine 0.4 L GFR Calculation 264.3 H Glucose 198 H POC Glucose 215 H 162 H Calculated Osmolal ity 286 Calcium 7.1 L 03/19/21 03/19/21 03/19/21 22:11 20:52 19:34 Specimen Type Sample Site Hasmukh Test VBG pH VBG pCO2 VBG pO2 VBG HCO3 VBG Base Excess VBG Hematocrit O2 Delivery Device Specimen Drawn By Sales Department Manager ID Sodium Potassium Chloride Carbon Dioxide Anion Gap BUN Creatinine GFR Calculation Glucose POC Glucose 126 H 199 H 295 H Calculated Osmolal ity Calcium 03/19/21 03/19/21 03/19/21 18:17 17:55 16:27 Specimen Type Sample Site Hasmukh Test VBG pH VBG pCO2 VBG pO2 VBG HCO3 VBG Base Excess VBG Hematocrit O2 Delivery Device Specimen Drawn By Sales Department Manager ID Sodium 139 Potassium 3.1 L Chloride 110 H Carbon Dioxide 21 L Anion Gap 11.1 BUN 2 L Creatinine 0.4 L GFR Calculation 264.3 H Glucose 161 H POC Glucose 180 H 173 H Calculated Osmolal ity 288 Calcium 6.6 L 03/19/21 03/19/21 03/19/21 15:16 14:18 14:06 Specimen Type Sample Site Hasmukh Test VBG pH VBG pCO2 VBG pO2 VBG HCO3 VBG Base Excess VBG Hematocrit O2 Delivery Device Specimen Drawn By Sales Department Manager ID Sodium 139 Potassium 2.7 L* Chloride 105 Carbon Dioxide 21 L Anion Gap 15.7 BUN 3 L Creatinine 0.5 L GFR Calculation 204.3 H Glucose 208 H POC Glucose 162 H 210 H Calculated Osmolal ity 291 Calcium 7.3 L 03/19/21 03/19/21 03/19/21 13:00 11:54 10:48 Specimen Type Sample Site Hasmukh Test VBG pH VBG pCO2 VBG pO2 VBG HCO3 VBG Base Excess VBG Hematocrit O2 Delivery Device Specimen Drawn By Sales Department Manager ID Sodium Potassium Chloride Carbon Dioxide Anion Gap BUN Creatinine GFR Calculation Glucose POC Glucose 198 H 186 H 336 H Calculated Osmolal ity Calcium 03/19/21 03/19/21 10:45 10:45 Specimen Type Venous Sample Site Venous Hasmukh Test N/a VBG pH 7.36 VBG pCO2 32.5 L VBG pO2 49.7 H VBG HCO3 18.2 L VBG Base Excess -6.3 L VBG Hematocrit 37.7 L O2 Delivery Device Ra Specimen Drawn By Knodi Sales Department Manager ID Amh Sodium 140 Potassium 3.3 L Chloride 107 Carbon Dioxide 17 L Anion Gap 19.3 H BUN 4 L Creatinine 0.6 L GFR Calculation 165.5 H Glucose 330 H POC Glucose Calculated Osmolal ity 300 H Calcium 7.3 L Vitals: Last Vital Signs Temp 98.4 F 03/19/21 11:00 Pulse 82 03/20/21 08:00 Resp 18 03/20/21 08:00 BP 119/70 03/20/21 08:00 Pulse Ox 97 03/20/21 08:00 Discharge Plan Discharge Patient Disposition: Home Condition: Stable Prescriptions: New (DME) blood sugar diagnostic Strip See Rx Instructions .Route Qty: 100 RF: 0 (DME) Blood Glucose Test Strip See Rx Instructions .Route Qty: 100 RF: 0 (DME) Blood Glucose Monitoring Kit See Rx Instructions .Route Qty: 1 RF: 0 Continued (DME) Dexcom G6 [employer]ater Misc See Rx Instructions .ROUTE .MEDSUPPLY Qty: 1 RF: 0 (DME) Dexcom G6 Sensor Device See Rx Instructions .ROUTE .MEDSUPPLY Qty: 3 RF: 3 (DME) Dexcom G6 Transmitter Device See Rx Instructions .ROUTE .MEDSUPPLY Qty: 3 RF: 3 insulin aspart U-100 [Novolog Flexpen U-100 Insulin] 100 unit/mL (3 mL) insulin pen See Rx Instructions unit .ROUTE .COMPLEX RF: 0 Lantus U-100 Insulin 100 unit/mL solution 35 unit SUBCUT BID RF: 0 famotidine 20 mg tablet 20 mg PO BID RF: 0 Discharge Orders: Discharge Order (Routine); Ordered 03/20/21 Ordered By: Jess Martines Discharge Diet: Diabetic Discharge Activity: Resume usual activity Patient Instructions: Opioid Safety Discharge Attestations Time Spent in Discharge Care*: less than 30 min Status at Discharge: Cognitive status at discharge: cognitively intact , Behavioral status at discharge: cooperative , Quality Metrics Clinical Quality Measures During this hospital stay, did patient experience: None Coding Level of Care Code Acute Chg FW DC note Diagnoses DKA (diabetic ketoacidoses) E10.10 Diabetes mellitus complication detail: without coma Diabetes mellitus type: type 1 BALWINDER (acute kidney injury) N17.9 Metabolic acidosis E87.2
--- NOTE | 2021-03-20 12:09 | PC.NURSE ---
Nurse removed lawson catheter. 10 ml of saline removed from balloon. Catheter intact.
--- NOTE | 2021-03-20 12:20 | PC.NURSE ---
insulin pod in place ivs removed whole intact awaiting discharge ride home at this time lawson removed rx given
== END 2021-03-20 12:38 | disposition home or self-care (01) | DRG 638 ==
LOC: ER 13:31 → ICU 15:01
PROVIDERS: Admitting Provider Internal Medicine; Emergency Provider Family Medicine; PCP Nurse Practitioner Family; Visit Provider Internal Medicine
DX: E10.10 Type 1 diabetes mellitus with ketoacidosis without coma (principal); N17.9 Acute kidney failure, unspecified; Z96.41 Presence of insulin pump (external) (internal); K21.9 Gastro-esophageal reflux disease without esophagitis; F12.90 Cannabis use, unspecified, uncomplicated; F15.10 Other stimulant abuse, uncomplicated; F17.210 Nicotine dependence, cigarettes, uncomplicated; E87.5 Hyperkalemia
CPT/HCPCS: 36415; 36416; 36569; 36592; 36600; 51702; 70450; 71045; 80048; 80051; 80053; 82009; 82330; 82550; 82803; 82805; 82962; 83605; 83690; 83735; 85025; 87040; 94640; 96361; 96365; 96372; 96375; 99285; C1751; J0610; J1815 ×2; J2405; J3475; J3480; J7030; J7050; J7611; J7799

== ENCOUNTER 2021-03-30 21:26 | Emergency (ER) | payer MEDICARE, MEDICAID, SELFPAY ==
[2021-03-30 21:28] VITALS: BP 115/43; PULSE 125; RESP 26; TEMP 36; O2SAT 98; BMI 22.1
[2021-03-30 21:33] VITALS: BP 115/43; PULSE 125; RESP 22; O2SAT 99
--- NOTE | 2021-03-30 21:34 | XRR_ITS ---
PROCEDURE INFORMATION: Exam: XR Chest Exam date and time: 03/30/2021 9:34 PM Age: 26 years old Clinical indication: Shortness of breath; Additional info: Reduced breath sounds, dka TECHNIQUE: Imaging protocol: XR of the chest. Views: 1 view. COMPARISON: CR XR chest 1V portable [id number] 03/18/2021 12:18 PM FINDINGS: Lungs: Unremarkable. No consolidation. Pleural spaces: Unremarkable. No pleural effusion. No pneumothorax. Heart/Mediastinum: Unremarkable. No cardiomegaly. Bones/joints: Unremarkable. XR/XR chest 1V portable [id number] IMPRESSION: No acute disease.
--- NOTE | 2021-03-30 21:38 | ECG_ITS ---
[facility] ED Test Date: 2021-03-30 Pat Name: Salvatore Ott Department: Room: Gender: Male Pediatrics Hospitalist: : 1995 Requested By: Wesley Dunbar Order Number: [id number] Kim MD: Macey Rogers M.D. Measurements Intervals Howard Rate: 133 P: 78 NM: 133 QRS: 86 QRSD: 86 T: 56 QT: 289 QTc: 430 Interpretive Statements SINUS TACHYCARDIA ABNORMAL RHYTHM ECG Compared to ECG 03/15/2021 12:16:08 No significant changes Electronically Signed On 04-06-2021 0:35:39 CDT by Macey Rogers M.D. [email or web address]
[2021-03-30 21:57] LABS: ABG PCO2 10.2 mmHg (35-45); ABG PH Result 7.09 (7.35-7.45); Arterial Blood Gas Hematocrit 44.4 % (42-52); Base Excess ABG -24.3 mmol/L (-2.0-2.0); Blood Gas Allen Test Pos; Blood Gas Operator Identificat MONRO; Blood Gas Sample Site Brachial, left; Blood Gas Sample Type Arterial; Carboxyhemoglobin 0.9 %THgb (0.4-20.1); HCO3 ABG 3.1 mmol/L (22-26); HGB O2 Sat 96.4 % (95-100); Methemoglobin 0.8 % (0.4-1.5); Oxygen Device ROOM AIR; Total Hemoglobin 14.5 g/dL (14-18)
[2021-03-30] MEDS: insulin regular-human 100 units/1 mL 10 UNIT IVP (21:58)
[2021-03-30] MEDS: sodium chloride 0.9% 1,000 ML 999 ML IV (21:59)
[2021-03-30 22:00] VITALS: PULSE 133
[2021-03-30 22:03] LABS: Glucose Point of Care > 600 mg/dL (70-110)
--- NOTE | 2021-03-30 22:12 | CTR_ITS ---
PROCEDURE INFORMATION: Exam: CT Head Without Contrast Exam date and time: 03/30/2021 10:12 PM Age: 26 years old Clinical indication: Altered mental status/memory loss; Additional info: Altered mental status/ dka TECHNIQUE: Imaging protocol: Computed tomography of the head without contrast. Radiation optimization: All CT scans at this facility use at least one of these dose optimization techniques: automated exposure control; mA and/or kV adjustment per patient size (includes targeted exams where dose is matched to clinical indication); or iterative reconstruction. COMPARISON: CT head wo con* [id number] 03/18/2021 5:56 PM RADIATION DOSE METRICS: Total DLP (mGy-cm): 997.93 FINDINGS: Brain: No acute infarct or hemorrhage. Cerebral ventricles: No ventriculomegaly. Paranasal sinuses: Paranasal sinuses are clear. No air-fluid level. Mastoid air cells: Visualized mastoid air cells are clear. Bones/joints: No calvarial or skull base fracture. Soft tissues: Unremarkable. CT/CT head wo con* [id number] IMPRESSION: 1. No acute infarct or hemorrhage. 2. No calvarial or skull base fracture. Radiation Dose CTDIVOL = (mGy): DLP = 997.93 (mGy-cm)
[2021-03-30 22:22] LABS: Lactate (Lactic Acid level) 3.6 mmol/L (0.5-2.2)
[2021-03-30 22:29] LABS: Basophils # 0.2 10^3/uL (0.0-0.1); Basophils % 0.9 %; Hematocrit 49.2 % (42.0-52.0); Hemoglobin 14.1 g/dL (11.7-16.6); Lymphocytes # 0.5 10^3/uL (0.8-4.8); Lymphocytes % 3.3 %; Mean Corpuscular HGB Conc 28.7 g/dL (30.0-36.0); Mean Corpuscular Hemoglobin 31.1 pg (28.0-34.0); Mean Corpuscular Volume 108.6 fL (80-94); Mean Platelet Volume 10.2 fL (7.4-10.4); Monocytes # 0.2 10^3/uL (0.2-0.9); Monocytes % 1.3 %; Neutrophils # 14.78 10^3/uL (1.8-7.7); Neutrophils % 92.8 %; Nucleated Red Blood Cells % 0 %; Platelet Count 398 10^3/cmm (130-400); Red Blood Count 4.53 10^6/uL (4.1-5.3); Red Cell Distribution Width 13.1 % (12.1-15.1); White Blood Count 15.9 10^3/uL (4.0-10.0)
[2021-03-30 22:30] VITALS: BP 102/64; PULSE 119; RESP 24; O2SAT 98
[2021-03-30 22:39] LABS: Ketone (Acetest) Serum Positive (Negative)
[2021-03-30 22:45] LABS: Alanine Aminotransferase 20 U/L (0-41); Albumin Level 4.1 g/dL (3.5-5.2); Alkaline Phosphatase 106 IU/L (40-130); Blood Urea Nitrogen 32 mg/dL (6-20); Calcium 8.8 mg/dL (8.5-10.5); Chloride 89 mmol/L (98-107); Creatine Phosphokinase 141 U/L (39-308); Globulin 2.9 g/dL (1.3-4.6); Glomerular Filtration Rate 74.4 mL/min (90-130); Lipase 23 U/L (13-60); Osmolality Calculated 316 mOsm/kg (285-295); Sodium 133 mmol/L (136-145); Total Bilirubin 0.4 mg/dL (0.15-1.2)
[2021-03-30 22:46] LABS: Alcohol Level < 10 mg/dL (0-10)
[2021-03-30 22:47] LABS: Anion Gap 47.6 (5-19); Aspartate Amino Transferase 18 U/L (0-40)
[2021-03-30 22:53] LABS: Carbon Dioxide 3 mmol/L (22-29); Glucose 691 mg/dL (65-115); Potassium 6.6 mmol/L (3.5-5.1)
[2021-03-30] MEDS: insulin regular-human 250 UNIT in sodium chloride 0.9% 250 ML 10 UNIT IV (22:58)
[2021-03-30] MEDS: pantoprazole 40 mg SDV IVP (23:03)
[2021-03-30 23:30] VITALS: BP 117/62; PULSE 120; RESP 19; O2SAT 98
--- NOTE | 2021-03-30 23:43 | ED_ITS ---
HPI - Nausea/Vomiting/Diarrhea General: Chief complaint: Nausea/Vomiting/Diarrhea Stated complaint: HIGH BLOOD SUGAR Time Seen by Provider: 03/30/21 21:27 History of Present Illness: HPI Narrative: The patient is a 26-year-old type I diabetic with insulin pump who is poorly compliant with his regimen comes to the ER complaining of nausea and vomiting all day. He says he is very dehydrated as well. Slightly altered mental status and suspected he is in DKA. He says he gave himself 30 units of insulin around noon and took a nap and woke up vomiting and retching. He does not know the basal rate of his insulin. Previous notes show he has not filled it. He gets admitted frequently for this. On arrival his glucose reads high and EMS gave him nearly a liter of fluids prior to arrival. He is hypotensive and has Kussmaul respirations as well. He also vomited coffee-ground emesis. MD elicited complaint: nausea, vomiting and abdominal pain Description of vomiting: food contents and coffee grounds Associated nausea: Yes Associated abdominal pain: Yes Location of pain: Epigastric Radiation: diffuse Pain consistency: constant Severity: moderate Quality: cramping Exacerbating factors: eating Relieving factors: other (Zofran) Associated symtoms: Reports altered mental status, fatigue and nausea; Denies anxiety, change in vision, chest pain, dizziness, headache(s) or palpitations Review of Systems General: Reports: 10 or more systems reviewed and unremarkable except in HPI and below Const: Reports: fatigue; Denies: fever(s) or chills Eyes: Denies: change in vision, blurry vision or eye redness ENMT: Denies: throat pain, swelling of lips/tongue, ear or mastoid pain or nasal congestion Card: Denies: chest pain, palpitations, irregular heart rhythm, edema, dyspnea on exertion or orthopnea Resp: Denies: dyspnea, productive cough or non-productive cough GI: Reports: nausea : Denies: flank pain, urinary frequency or urinary urgency Musc: Denies: neck pain, back pain, extremity pain, joint pain, joint redness, limited range of motion or muscle weakness Skin/Breast: Denies: rash, pruritus, erythema, skin pain or skin tenderness Neuro: Denies: headache(s), numbness in extremities, weakness in extremities, sensory changes, difficulty walking, dizziness, confusion or Slurred speech present Psych: Denies: anxiety or depression Endo: Reports: polyuria and polydipsia All/Imm: Denies: urticaria, throat swelling or tongue swelling PFSH ED PFSH: Medical History DKA (diabetic ketoacidoses) GERD (gastroesophageal reflux disease) Marijuana use Pancreatitis Type 1 diabetes With recurrent admissions for DKA, severe Uncontrolled type 1 diabetes mellitus Surgical History No pertinent past surgical history Family History Other Diabetes Social History Smoking and tobacco status: current every day smoker Alcohol intake: never Lives independently: Yes Household members: significant other Marital status: Single Current occupational status: unemployed Physical Exam Narrative: EXAM NARRATIVE: He is slightly altered and confused. In DKA. Kussmaul respirations. Tachycardic. Hypotension. Const: COMMON NORMALS: average body habitus, patient oriented x3, no limi tations, healthy appearing and alert EXAM LIMITATIONS: altered mental status GENERAL APPEARANCE: cooperative, anxious and disheveled NUTRITIONAL APPEARANCE: thin ORIENTATION/CONSCIOUSNESS: Yes awake, Yes oriented to person, Yes oriented to place, Yes oriented to time and Yes confused HENMT: COMMON NORMALS: normocephalic, external ears normal and Normal external nose present HEAD & SCALP: normal to inspection and normocephalic NOSE: Normal external nose present EXTERNAL EAR: Yes external ears normal MOUTH: Normal oral and palatal mucosa present THROAT: posterior oropharynx normal Eye: COMMON NORMALS: Equal, round and reactive pupils present and EOMs intact bilaterally GENERAL EYE: appearance normal, both eyes and all related structures PUPIL: Yes Equal, round and reactive pupils present Neck/C-Spine: COMMON NORMALS: full ROM, no lymphadenopathy, no meningeal signs and no JVD GENERAL: Yes normal visual inspection Lymph: LYMPHATIC: no lymphadenopathy noted Chest: COMMONS NORMALS: normal inspection of the chest and normal palpation of entire chest wall Resp: COMMON NORMALS: normal respiratory effort, No retractions, No use of accessory muscles, clear to auscultation bilaterally and percussion normal EFFORT & INSPECTION: Yes able to speak in complete sentences and Yes tachypneic (Kussmaul respiration) AUSCULTATION: clear to auscultation bilaterally PERCUSSION: percussion normal Cardio: COMMON NORMALS: no JVD, regular rhythm, S1 normal heart sound present, S2 normal heart sound present and Peripheral pulses 2+ throughout RATE: tac hycardic RHYTHM: regular rhythm HEART SOUNDS: S1 normal heart sound present and S2 normal heart sound present PERIPHERAL PULSES: Peripheral pulses 2+ throughout GI: COMMON NORMALS: Normal to inspection, nondistended, normoactive bowel sounds present, Soft to palpation, non-tender and no masses INSPECTION: Yes normal to inspection PALPATION: Yes Soft to palpation : COMMON NORMALS: Yes no CVA tenderness BLADDER/KIDNEY EXAM: Yes no CVA tenderness Back/Pelvis: COMMON NORMALS: no CVA tenderness, thoracic and lumbar spine normal to inspection, no thoracic nor lumbar tenderness and thoraco-lumbar ROM normal Extremity: COMMON NORMALS: normal to inspection, full ROM, capillary refill normal, no joint enlargement and no pedal edema GENERAL: Yes normal exam except as noted Neuro: COMMON NORMALS: patient oriented x3, CN's II-XII intact bilaterally, moves all extremities, no focal motor deficits, no sensory deficits noted and gait normal SENSORIUM/ORIENTATION: Yes alert, Yes oriented to person, Yes oriented to place and Yes oriented to time MENINGEAL SIGNS: Yes no meningeal signs Psych: COMMON NORMALS: mental status grossly normal, Normal thought process present, cooperative, normal affect and speech normal ATTITUDE: Yes calm SPEECH: Yes normal speech THOUGHT PROCESS: Normal thought process present Skin: COMMON NORMALS: no rashes or lesions noted GENERAL SKIN EXAM: no nikunj hes or lesions noted Course Vital Signs: Vital signs: Vital Signs Temperature 96.8 F L 03/30/21 21:28 Pulse Rate 125 H 03/30/21 21:28 Respiratory Rate 26 H 03/30/21 21:28 Blood Pressure 115/43 03/30/21 21:28 Pulse Oximetry 98 03/30/21 21:28 MDM - Nausea/Vomiting/Diarrhea MDM Narrative: Medical decision making narrative: The patient is a well-known noncompliant type I diabetic. He says he gave himself 30 units of insulin around noon and took a nap. Woke up vomiting and retching and has coffee-ground emesis. Blood glucose on arrival was nearly 700 and pH 7.09 with bicarb of 3.1. He was given 3 L of IV fluids, insulin bolus and drip, bicarbonate and calcium gluconate as his potassium came back significantly elevated at 6.6. We do not have any beds here and he requires ICU placement. Discussed with Rolando Whitney supervisor major appliance assembly who accepted for transfer. The patient is improving clinically already with normalization of his blood pressure and mental status. Lab Data: Labs: Lab Results 03/30/21 03/30/21 03/30/21 Range/Units 21:43 21:54 21:58 WBC (4.0-10.0) 10^3/ uL RBC (4.1-5.3) 10^6/u L Hgb (11.7-16.6) g/dL Hct (42.0-52.0) % MCV (80-94) fL MCH (28.0-34.0) pg MCHC (30.0-36.0) g/dL RDW (12.1-15.1) % Plt Count (130-400) 10^3/c mm MPV (7.4-10.4) fL Neut % (Auto) % Lymph % (Auto) % [place] % (Auto) % Eos % (Auto) % Baso % (Auto) % Neut # (Auto) (1.8-7.7) 10^3/u L Lymph # (Auto) (0.8-4.8) 10^3/u L [place] # (Auto) (0.2-0.9) 10^3/u L Eos # (Auto) (0.0-0.8) 10^3/u L Baso # (Auto) (0.0-0.1) 10^3/u L Nucleated RBC % (a uto) % Nucleated RBCs # /100WBC Specimen Type Arterial Sample Site Brachial, left ABG pH 7.09 L* (7.35-7.45) ABG pCO2 10.2 L* (35-45) mmHg ABG pO2 131.0 H (80.0-100.0) mmH g ABG HCO3 3.1 L (22-26) mmol/L ABG Base Excess -24.3 L (-2.0-2.0) mmol/ L Hasmukh Test Pos Hematocrit 44.4 (42-52) % Hgb O2 Saturation 96.4 (95-100) % Carboxyhemoglobin 0.9 (0.4-20.1) %THgb Methemoglobin 0.8 (0.4-1.5) % Total Hemoglobin 14.5 (14-18) g/dL O2 Delivery Device Room air FiO2 21.0 % Assembler For Puller Over Machine ID [place] Sodium (136-145) mmol/L Potassium (3.5-5.1) mmol/L Chloride (98-107) mmol/L Carbon Dioxide (22-29) mmol/L Anion Gap (5-19) BUN (6-20) mg/dL Creatinine (0.7-1.2) mg/dL GFR Calculation (90-130) mL/min Glucose (65-115) mg/dL POC Glucose > 600 H* (70-110) mg/dL Calculated Osmolal ity (285-295) mOsm/k g Lactate 3.6 H (0.5-2.2) mmol/L Calcium (8.5-10.5) mg/dL Total Bilirubin (0.15-1.2) mg/dL AST (0-40) U/L ALT (0-41) U/L Alkaline Phosphata se (40-130) IU/L Creatine Kinase (39-308) U/L Total Protein (6.6-8.7) g/dL Albumin (3.5-5.2) g/dL Globulin (1.3-4.6) g/dL Lipase (13-60) U/L Ethyl Alcohol (0-10) mg/dL Serum Ketones (Negative) 03/30/21 03/30/21 03/30/21 Range/Units 22:23 22:23 22:23 WBC 15.9 H (4.0-10.0) 10^3/ uL RBC 4.53 (4.1-5.3) 10^6/u L Hgb 14.1 (11.7-16.6) g/dL Hct 49.2 (42.0-52.0) % MCV 108.6 H (80-94) fL MCH 31.1 (28.0-34.0) pg MCHC 28.7 L (30.0-36.0) g/dL RDW 13.1 (12.1-15.1) % Plt Count 398 (130-400) 10^3/c mm MPV 10.2 (7.4-10.4) fL Neut % (Auto) 92.8 % Lymph % (Auto) 3.3 % [place] % (Auto) 1.3 % Eos % (Auto) 0.0 % Baso % (Auto) 0.9 % Neut # (Auto) 14.78 H (1.8-7.7) 10^3/u L Lymph # (Auto) 0.5 L (0.8-4.8) 10^3/u L [place] # (Auto) 0.2 (0.2-0.9) 10^3/u L Eos # (Auto) 0.0 (0.0-0.8) 10^3/u L Baso # (Auto) 0.2 H (0.0-0.1) 10^3/u L Nucleated RBC % (a uto) 0 % Nucleated RBCs # 0.0 /100WBC Specimen Type Sample Site ABG pH (7.35-7.45) ABG pCO2 (35-45) mmHg ABG pO2 (80.0-100.0) mmH g ABG HCO3 (22-26) mmol/L ABG Base Excess (-2.0-2.0) mmol/ L Hasmukh Test Hematocrit (42-52) % Hgb O2 Saturation (95-100) % Carboxyhemoglobin (0.4-20.1) %THgb Methemoglobin (0.4-1.5) % Total Hemoglobin (14-18) g/dL O2 Delivery Device FiO2 % Assembler For Puller Over Machine ID Sodium 133 L (136-145) mmol/L Potassium 6.6 H* (3.5-5.1) mmol/L Chloride 89 L (98-107) mmol/L Carbon Dioxide 3 L* (22-29) mmol/L Anion Gap 47.6 H (5-19) BUN 32 H (6-20) mg/dL Creatinine 1.2 (0.7-1.2) mg/dL GFR Calculation 74.4 L (90-130) mL/min Glucose 691 H* (65-115) mg/dL POC Glucose (70-110) mg/dL Calculated Osmolal ity 316 H (285-295) mOsm/k g Lactate (0.5-2.2) mmol/L Calcium 8.8 (8.5-10.5) mg/dL Total Bilirubin 0.4 (0.15-1.2) mg/dL AST 18 (0-40) U/L ALT 20 (0-41) U/L Alkaline Phosphata se 106 (40-130) IU/L Creatine Kinase 141 (39-308) U/L Total Protein 7.0 (6.6-8.7) g/dL Albumin 4.1 (3.5-5.2) g/dL Globulin 2.9 (1.3-4.6) g/dL Lipase 23 (13-60) U/L Ethyl Alcohol < 10 (0-10) mg/dL Serum Ketones Positive H (Negative) Discharge Plan Discharge Patient Disposition: Xfer Short-Term Hosp Clinical Impression: DKA (diabetic ketoacidoses), Coffee ground emesis, Acute hyperkalemia Condition: Stable Referrals: Earlene Titus FNP-C [Primary Care Provider] - Coding Level of Care Code ED Pediatric Urologist for Maxx Mohr
[2021-03-31] VITALS (8 sets, daily range): BP systolic 94–123; BP diastolic 49–66; PULSE 101–114; RESP 12–21; TEMP 36.7; O2SAT 96–100
[2021-03-31 00:01] LABS: Add Urine Microscopic? NO; Charge for UA Resulting for Rev
[2021-03-31 00:05] LABS: Glucose Point of Care 420 mg/dL (70-110)
[2021-03-31 00:12] LABS: Bilirubin Urine Neg (Negative); Blood Urine Neg (Negative); Glucose Urine UA 4+ (Normal); Ketones Urine 3+ (Negative); Leukocyte Esterase Urine Negative (Negative); Nitrate Urine Negative (Negative); Protein Urine Neg (Negative); Urine Appearance Clear (CLEAR); Urine Color Yellow (Yellow); Urobilinogen Urine Norm (Negative); pH Urine 5 (5-7)
[2021-03-31 00:15] LABS: Amphetamines Screen Urine Negative (Negative); Barbiturates Screen Urine Negative (Negative); Benzodiazepines Screen Urine Negative (Negative); Cocaine Screen Urine Negative (Negative); Opiate Screen Urine Negative (Negative); PCP Screen Urine Negative (Negative); THC Screen Urine Negative (Negative)
[2021-03-31 00:23] LABS: SARS Covid-2 Antigen Negative (Negative)
[2021-03-31] MEDS: sodium bicarbonate 50 MEQ in sodium chloride 0.45% 1,000 ML 100 MEQ IV (00:34)
[2021-03-31] MEDS: sodium chloride 0.9% 1,000 ML 999 ML IV (00:37)
[2021-03-31 00:44] LABS: Blood Urea Nitrogen 31 mg/dL (6-20); Calcium 8.9 mg/dL (8.5-10.5); Chloride 99 mmol/L (98-107); Glomerular Filtration Rate 67.8 mL/min (90-130); Glucose 413 mg/dL (65-115); Osmolality Calculated 312 mOsm/kg (285-295); Sodium 139 mmol/L (136-145)
[2021-03-31 00:45] LABS: Carbon Dioxide 6 mmol/L (22-29)
[2021-03-31 01:12] LABS: Glucose Point of Care 407 mg/dL (70-110)
[2021-03-31 02:04] LABS: Glucose Point of Care 330 mg/dL (70-110)
[2021-03-31 03:03] LABS: Glucose Point of Care 303 mg/dL (70-110)
[2021-03-31 04:04] LABS: Glucose Point of Care 262 mg/dL (70-110)
[2021-03-31] MEDS: dextrose 5%-sod chloride 0.45% 1,000 ML 125 ML IV (04:59)
[2021-03-31 05:03] LABS: Glucose Point of Care 213 mg/dL (70-110)
[2021-03-31 06:03] LABS: Glucose Point of Care 212 mg/dL (70-110)
== END 2021-03-31 06:19 | disposition short-term general hospital (02) ==
PROVIDERS: Emergency Provider Family Medicine; PCP Nurse Practitioner Family
DX: E10.10 Type 1 diabetes mellitus with ketoacidosis without coma (principal); R11.10 Vomiting, unspecified; E87.5 Hyperkalemia; F17.200 Nicotine dependence, unspecified, uncomplicated; Z96.41 Presence of insulin pump (external) (internal)
CPT/HCPCS: 36416; 36600; 70450; 71045; 80048; 80053; 80306; 80307; 81003; 82009; 82550; 82805; 82962; 83605; 83690; 85025; 87426; 93005; 96365; 96366; 96367; 96375; 99285; C9113; J0610; J1815; J7030; J7050; J7799

== ENCOUNTER 2021-05-14 11:23 | Inpatient (IN) | payer MEDICARE, MEDICAID, SELFPAY ==
[2021-05-14] VITALS (23 sets, daily range): BP systolic 108–165; BP diastolic 52–95; PULSE 16–119; RESP 16–101; TEMP 36.5–36.8; O2SAT 93–100; BMI 26.6; BMI 25.3
--- NOTE | 2021-05-14 11:27 | ECG_ITS ---
[facility] Test Date: 2021-05-14 Pat Name: Salvatore Ott Department: Room: ED Gender: Male Homicide Detective: : 1995 Requested By: Tata Mederos Order Number: [id number] Kim MD: Real Cerna M.D. Measurements Intervals [place] Rate: 103 P: 80 [place]: 132 QRS: 74 QRSD: 79 T: 57 QT: 314 QTc: 412 Interpretive Statements SINUS TACHYCARDIA Compared to ECG 03/30/2021 22:01:37 No significant changes Electronically Signed On 05-14-2021 20:04:49 CDT by Real Cerna M.D. [email or web address] [email or web address] Groupmer[facility] spring[facility] regional medical centerWhale Path/store/NU/[id number] f
--- NOTE | 2021-05-14 11:33 | W.ED.GENADLT ---
HPI - General Adult General: Chief complaint: Nausea/Vomiting/Diarrhea Stated complaint: N/V X 2 DAYS Time Seen by Provider: 05/14/21 11:24 History of Present Illness: HPI narrative: Patient is a 26-year-old male with history of diabetes complicated by recurrent DKA's, BALWINDER, and hyperkalemia presents the emergency room with nausea vomiting x2 days. Patient noted he does not take his insulin medicine regularly. Last dose was prior to calling EMS. Patient states that he has had 2 days of severe nausea vomiting and inability to tolerate p.o. Denies any fever chills, chest pain shortness of breath, other abdominal complaints, and complaints Onset:2 days ago Duration:2 days Location:home Severity:severe Review of Systems Narrative: Constitutional: No fever, no chills. HEENT: No vision changes CV: No chest pain, no palpitations PULM: no cough, no dyspnea. GI: No abdominal pain, +N/+V/-D. : No dysuria MSKEL: No muscle pain SKIN: No new rashes, no lesions. NEURO: No headache, no focal weakness. HEME: No visible bruises PSYCH: Normal mood PFSH ED PFSH: Medical History DKA (diabetic ketoacidoses) GERD (gastroesophageal reflux disease) Hyperglycemia Long-term insulin use Marijuana use Methamphetamine abuse Nausea & vomiting Noncompliance with diabetes treatment Pancreatitis Type 1 diabetes With recurrent admissions for DKA, severe Uncontrolled type 1 diabetes mellitus Surgical History No pertinent past surgical history Family History Other Diabetes Social History Smoking and tobacco status: current every day smoker Alcohol intake: never Lives independently: Yes Household members: significant other Marital status: Single Current occupational status: unemployed Physical Exam Narrative: EXAM NARRATIVE: Constitutional: +generalized weakness, +fatigue Head: Atraumatic Eyes: PERRL, conjunctiva without injection ENT: Dry membrane moist NECK: Supple, ROM intact LUNGS: LCTAB, no crackles/rhonchi CV: Sinus tachycardia ABDOMEN: Soft, diffuse tenderness to palpation over the abdomen, no guarding no rebound tenderness, no McBurney's point tenderness, no CVA tenderness, no Funes sign, no suprapubic tenderness EXTREMITY: Normal ROM SKIN: No rash or erythema NEURO: Awake and alert, no focal motor deficits PSYCH: Normal mood and affect Course Vital Signs: Vital signs: Vital Signs Temperature 98.5 F 05/15/21 04:00 Pulse Rate 99 05/15/21 12:00 Respiratory Rate 15 05/15/21 12:00 Blood Pressure 129/51 05/15/21 12:00 Pulse Oximetry 100 05/15/21 12:00 MDM - General Adult MDM Narrative: Medical decision making narrative: [26]yo patient w/ of DM1 and recurrent DKA presenting to the ED with hyperglycemia, N/V, generalized weakness consistent with prior DKA workup. My workup today included BMP, ECG, serum ketones, troponin, Q2hrs glucose check and VBG/resus panel. AGAP:32 bicarb: 9 pH: 7.09 serum ketones: negative EKG: narrow complex tachycardia. Normal rhythm, no evidence of peaked T waves, prolonged CT interval, shortened QT interval c/f hyperkalemia. No STEMI or overt ischemic findings. Given exam, history, and work I have low suspicion for an emergent precipitating factor of DKA is atypical [place], acute abdomen, or other serious bacterial illness. Patient?s presentation today is most likely acute stress from medication regimen change/non-compliance At [12:30], patient was started on a bolus 2L 0.9% LR. Potassium of 5. nat[place] to include K20mEq in/for each liter of IVF. Insulin drip started at 0.10U/kg/hr gtt per institution?s DKA protocol. [12:45] Case discussed with MICU team Dr. Boyer who agrees with plan for MICU admission on a DKA protocol On reassessment at [12:58], patient continues to have good mentation, HR improved with IVF. Will continue monitoring for signs of neurological decompensation. Plans for 0.45NS@200/hr for glucose < 300 and D5 1/2NS @100-200/hr for glucose < 200. Plan to keep K > 3.3. If K 3.3-5.3; plan to include K20 in each liter of IVF. Will continue 0.1U/kg/hr of insulin drip until anion gap is closed. Plan to double the dose of insulin if doesn?t fall 50-70 in first hour until goal of 100-300. Disposition: ICU Lab Data: Labs: Lab Results 05/14/21 05/14/21 05/14/21 Range/Units 11:33 11:50 11:50 WBC 7.8 (4.0-10.0) 10^3/ uL RBC 5.34 H (4.1-5.3) 10^6/u L Hgb 16.4 (11.7-16.6) g/dL Hct 50.1 (42.0-52.0) % MCV 93.8 (80-94) fl MCH 30.7 (28.0-34.0) pg MCHC 32.7 (30.0-36.0) g/dL RDW 12.0 L (12.1-15.1) % Plt Count 290 (130-400) 10^3/c mm MPV 10.3 (7.4-10.4) fL Neut % (Auto) 83.1 % Lymph % (Auto) 12.9 % [place] % (Auto) 2.7 % Eos % (Auto) 0.0 % Baso % (Auto) 0.8 % Neut # (Auto) 6.49 (1.8-7.7) 10^3/u L Lymph # (Auto) 1.0 (0.8-4.8) 10^3/u L [place] # (Auto) 0.2 (0.2-0.9) 10^3/u L Eos # (Auto) 0.0 (0.0-0.8) 10^3/u L Baso # (Auto) 0.1 (0.0-0.1) 10^3/u L Nucleated RBC % (a uto) 0 % Nucleated RBCs # 0.0 /100WBC Sodium 129 L (136-145) mmol/L Potassium 5.0 (3.5-5.1) mmol/L Chloride 89 L (98-107) mmol/L Carbon Dioxide 9 L (22-29) mmol/L Anion Gap 36.0 H (5-19) BUN 14 (6-20) mg/dL Creatinine 1.0 (0.7-1.2) mg/dL GFR Calculation 91.8 (90-130) mL/min Glucose 493 H (65-115) mg/dL POC Glucose 469 H (70-110) mg/dL Estimat Average Gl ucose Hemoglobin A1c (4.0-6.0) % Calculated Osmolal ity 290 (285-295) mOsm/k g Lactate (0.5-2.2) mmol/L Calcium 8.7 (8.5-10.5) mg/dL Total Bilirubin 0.6 (0.15-1.2) mg/dL AST 18 (0-40) U/L ALT 14 (0-41) U/L Alkaline Phosphata se 78 (40-130) IU/L Total Protein 7.7 (6.6-8.7) g/dL Albumin 4.5 (3.5-5.2) g/dL Globulin 3.2 (1.3-4.6) g/dL Lipase 10 L (13-60) U/L Serum Ketones (Negative) SARS-CoV-2 Ag (Rap id) (Negative) 05/14/21 05/14/21 05/14/21 Range/Units 11:50 11:50 11:50 WBC (4.0-10.0) 10^3/ uL RBC (4.1-5.3) 10^6/u L Hgb (11.7-16.6) g/dL Hct (42.0-52.0) % MCV (80-94) fl MCH (28.0-34.0) pg MCHC (30.0-36.0) g/dL RDW (12.1-15.1) % Plt Count (130-400) 10^3/c mm MPV (7.4-10.4) fL Neut % (Auto) % Lymph % (Auto) % [place] % (Auto) % Eos % (Auto) % Baso % (Auto) % Neut # (Auto) (1.8-7.7) 10^3/u L Lymph # (Auto) (0.8-4.8) 10^3/u L [place] # (Auto) (0.2-0.9) 10^3/u L Eos # (Auto) (0.0-0.8) 10^3/u L Baso # (Auto) (0.0-0.1) 10^3/u L Nucleated RBC % (a uto) % Nucleated RBCs # /100WBC Sodium (136-145) mmol/L Potassium (3.5-5.1) mmol/L Chloride (98-107) mmol/L Carbon Dioxide (22-29) mmol/L Anion Gap (5-19) BUN (6-20) mg/dL Creatinine (0.7-1.2) mg/dL GFR Calculation (90-130) mL/min Glucose (65-115) mg/dL POC Glucose (70-110) mg/dL Estimat Average Gl ucose 226 Hemoglobin A1c 9.5 H (4.0-6.0) % Calculated Osmolal ity (285-295) mOsm/k g Lactate 2.4 H (0.5-2.2) mmol/L Calcium (8.5-10.5) mg/dL Total Bilirubin (0.15-1.2) mg/dL AST (0-40) U/L ALT (0-41) U/L Alkaline Phosphata se (40-130) IU/L Total Protein (6.6-8.7) g/dL Albumin (3.5-5.2) g/dL Globulin (1.3-4.6) g/dL Lipase (13-60) U/L Serum Ketones Negative (Negative) SARS-CoV-2 Ag (Rap id) (Negative) 05/14/21 Range/Units 12:09 WBC (4.0-10.0) 10^3/ uL RBC (4.1-5.3) 10^6/u L Hgb (11.7-16.6) g/dL Hct (42.0-52.0) % MCV (80-94) fl MCH (28.0-34.0) pg MCHC (30.0-36.0) g/dL RDW (12.1-15.1) % Plt Count (130-400) 10^3/c mm MPV (7.4-10.4) fL Neut % (Auto) % Lymph % (Auto) % [place] % (Auto) % Eos % (Auto) % Baso % (Auto) % Neut # (Auto) (1.8-7.7) 10^3/u L Lymph # (Auto) (0.8-4.8) 10^3/u L [place] # (Auto) (0.2-0.9) 10^3/u L Eos # (Auto) (0.0-0.8) 10^3/u L Baso # (Auto) (0.0-0.1) 10^3/u L Nucleated RBC % (a uto) % Nucleated RBCs # /100WBC Sodium (136-145) mmol/L Potassium (3.5-5.1) mmol/L Chloride (98-107) mmol/L Carbon Dioxide (22-29) mmol/L Anion Gap (5-19) BUN (6-20) mg/dL Creatinine (0.7-1.2) mg/dL GFR Calculation (90-130) mL/min Glucose (65-115) mg/dL POC Glucose (70-110) mg/dL Estimat Average Gl ucose Hemoglobin A1c (4.0-6.0) % Calculated Osmolal ity (285-295) mOsm/k g Lactate (0.5-2.2) mmol/L Calcium (8.5-10.5) mg/dL Total Bilirubin (0.15-1.2) mg/dL AST (0-40) U/L ALT (0-41) U/L Alkaline Phosphata se (40-130) IU/L Total Protein (6.6-8.7) g/dL Albumin (3.5-5.2) g/dL Globulin (1.3-4.6) g/dL Lipase (13-60) U/L Serum Ketones (Negative) SARS-CoV-2 Ag (Rap id) Negative (Negative) Critical Care Time Critical Care Time: Critical Care Time: Yes Total Critical Care Time: 37 Attestation: Given the high probability of imminent or life threatening deterioration of the patient?s condition without intervention, the patient was immediately assessed by myself and the nurse, and cardiac monitoring initiated. The patient was also placed on oxygen and continuous pulse oximetry initiated. During the course of the patient?s stay, I spent a considerable amount of time at the bedside performing serial re-evaluations of the patient?s hemodynamic and clinical status because of the recognized potential threat to life or limb in this condition. Clinical management of this patient involved high complexity decision making to assess, manipulate, and support vital organ system failure. I then had a chance to review all of the available laboratory and radiographic studies obtained today, and I also reviewed old records available to me at the time. Sequential vital signs were obtained. Critical care time noted below was time spent engaged in work directly related to the individual patient?s care, not including time performing procedures; however it does include time spent at the immediate bedside or elsewhere on the floor or unit. TOTAL CRITICAL CARE TIME ELAPSED: in excess of 30 minutes. BODY SYSTEM AT HIGHEST RISK: Endocrine Discharge Plan Discharge Patient Disposition: Admitted As Inpatient Admit Provider: Boris Boyer Clinical Impression: Nausea & vomiting, Hyperglycemia, DKA, type 1 Condition: Stable Discharge Diet: Diabetic Discharge Activity: Resume usual activity Coding Level of Care Code ED Manager Account Management for Maxx Mohr
[2021-05-14 11:38] LABS: Glucose Point of Care 469 mg/dL (70-110)
[2021-05-14 12:04] LABS: Basophils # 0.1 10^3/uL (0.0-0.1); Basophils % 0.8 %; Hematocrit 50.1 % (42.0-52.0); Hemoglobin 16.4 g/dL (11.7-16.6); Lymphocytes % 12.9 %; Mean Corpuscular HGB Conc 32.7 g/dL (30.0-36.0); Mean Corpuscular Hemoglobin 30.7 pg (28.0-34.0); Mean Corpuscular Volume 93.8 fl (80-94); Mean Platelet Volume 10.3 fL (7.4-10.4); Monocytes # 0.2 10^3/uL (0.2-0.9); Monocytes % 2.7 %; Neutrophils # 6.49 10^3/uL (1.8-7.7); Neutrophils % 83.1 %; Nucleated Red Blood Cells % 0 %; Platelet Count 290 10^3/cmm (130-400); Red Blood Count 5.34 10^6/uL (4.1-5.3); White Blood Count 7.8 10^3/uL (4.0-10.0)
[2021-05-14] MEDS: ondansetron 2 mg/ML SDV 2 mL 4 MG IVP (12:11)
[2021-05-14] MEDS: lactated ringers 1,000 ML 999 ML IV (12:11)
--- NOTE | 2021-05-14 12:28 | PC.NURSE ---
patient remains on cardiac exercise specialist per order.
[2021-05-14 12:35] LABS: Ketone (Acetest) Serum Negative (Negative)
[2021-05-14 12:44] LABS: Alanine Aminotransferase 14 U/L (0-41); Albumin Level 4.5 g/dL (3.5-5.2); Alkaline Phosphatase 78 IU/L (40-130); Aspartate Amino Transferase 18 U/L (0-40); Blood Urea Nitrogen 14 mg/dL (6-20); Calcium 8.7 mg/dL (8.5-10.5); Chloride 89 mmol/L (98-107); Creatinine Clr Calc Pharmacy 113.5904; Globulin 3.2 g/dL (1.3-4.6); Glomerular Filtration Rate 91.8 mL/min (90-130); Glucose 493 mg/dL (65-115); Lipase 10 U/L (13-60); Osmolality Calculated 290 mOsm/kg (285-295); Sodium 129 mmol/L (136-145); Total Bilirubin 0.6 mg/dL (0.15-1.2); Total Protein 7.7 g/dL (6.6-8.7)
[2021-05-14 12:50] LABS: Carbon Dioxide 9 mmol/L (22-29)
[2021-05-14 13:03] LABS: SARS Covid-2 Antigen Negative (Negative)
[2021-05-14 13:07] LABS: Lactate (Lactic Acid level) 2.4 mmol/L (0.5-2.2)
[2021-05-14 13:19] LABS: Glucose Point of Care 497 mg/dL (70-110)
[2021-05-14] MEDS: lactated ringers 1,000 ML 30 ML IV (13:24)
[2021-05-14] MEDS: sodium chloride 0.9% 1,000 ML 999 ML IV ×4 (14:18→21:38)
[2021-05-14] MEDS: potassium chloride premix 100 ML 50 MEQ IV (14:18)
[2021-05-14 14:33] LABS: Glucose Point of Care 535 mg/dL (70-110)
[2021-05-14] MEDS: insulin regular-human 250 UNIT in sodium chloride 0.9% 250 ML 10 UNIT IV (14:37)
--- NOTE | 2021-05-14 14:49 | P.HP_ITS ---
Providers/Chief Complaint Primary Care Provider: MARGE Castellano Chief Complaint: N/V X 2 DAYS History of Present Illness Salvatore Ott is a 26 year old male with multiple admissions secondary to DKA noncompliant with his insulin, has history of type 1 diabetes, was recently admitted for the management of DKA and left AMA, patient is stating that his insulin pump stopped working and nowadays he is using sliding scale with NovoLog and long-acting insulin 24 units twice a day. For last 2 days he has been experiencing multiple episodes of nausea and emesis. Severe emesis, he has not noticed any fever or diarrhea. Patient is stating that he has not missed his insulin before initiation of his symptoms. He was diagnosed with hyperglycemia without ketosis and was switched to IV insulin after getting 2 L of fluid bolus, third liter was given after second BMP, insulin drip was running at 10, hemoglobin A1c 9.5, no chest pain lipase unremarkable procalcitonin unremarkable Review of Systems Const: Denies: fever(s) Eyes: Denies: change in vision ENMT: Denies: throat pain Card: Denies: chest pain Resp: Denies: dyspnea GI: Reports: abdominal pain, nausea and vomiting; Denies: diarrhea or constipation : Denies: flank pain Musc: Denies: neck pain Skin/Breast: Denies: rash Neuro: Denies: headache(s) Psych: Reports: anxiety and depression Endo: Denies: polyuria Garett/Lymph: Denies: easy bruising All/Imm: Denies: urticaria Medications/Allergies Home Medications Medication Instructions Recorded Confirmed Last Taken Type blood-glucose meter,continuous #1 ea 11/26/20 05/14/21 Unknown Rx blood-glucose sensor #3 ea 11/26/20 05/14/21 Unknown Rx blood-glucose transmitter #3 ea 11/26/20 05/14/21 Unknown Rx insulin aspart U-100 [Novolog See Rx Instructions .ROUTE .COMPLEX 02/16/21 05/14/21 03/30/21 History Flexpen U-100 Insulin] Lantus U-100 Insulin 35 unit SUBCUT BID 03/15/21 05/14/21 03/30/21 History famotidine 20 mg PO BID 03/15/21 05/14/21 Unknown History blood sugar diagnostic #100 ea 03/20/21 05/14/21 Unknown Rx blood sugar diagnostic [Blood #100 ea 03/20/21 05/14/21 Unknown Rx Glucose Test] blood-glucose meter [Blood Glucose #1 ea 03/20/21 05/14/21 Unknown Rx Monitoring] Allergies Allergy/AdvReac Type Severity Reaction Status Date / Time promethazine [From Phenergan] Allergy Unknown Verified 05/14/21 11:34 PFSH Acute PFSH: Medical History DKA (diabetic ketoacidoses) GERD (gastroesophageal reflux disease) Marijuana use Methamphetamine abuse Pancreatitis Type 1 diabetes With recurrent admissions for DKA, severe Uncontrolled type 1 diabetes mellitus Surgical History No pertinent past surgical history Family History Other Diabetes Social History Smoking and tobacco status: current every day smoker Alcohol intake: never Lives independently: Yes Household members: significant other Marital status: Single Current occupational status: unemployed Vitals/I&O/Wt Last Vital Signs Temp 97.9 F 05/14/21 11:26 Pulse 118 H 05/14/21 13:21 Resp 26 H 05/14/21 13:21 BP 146/78 05/14/21 13:21 Pulse Ox 98 05/14/21 13:21 05/13/21 05/14/21 05/14/21 22:59 06:59 14:59 Intake Total 1999 Balance 1999 Weight last 48 hrs Weight 77.111 kg Physical Exam Narrative: EXAM NARRATIVE: Young male who was in distress because of recurrent nausea and emesis Bucket with coffee-ground emesis Sinus tachycardia No audible stridor or wheezing Also noticed nasal ulcer however does not look like Rhizopus black eschar Abdomen nondistended Lower extremity no edema Unkept appearance, Poor dental hygiene No joint swelling No sign of cellulitis gangrene or cyanosis Data : 05/14/21 11:50 05/14/21 15:30 Micro: Microbiology 05/14/21 14:25 Blood Culture - Preliminary Blood SPECIMEN COLLECTED 05/14/21 13:19 Blood Culture - Preliminary Blood SPECIMEN COLLECTED A&P Assessment and plan (1) Nausea & vomiting: Status: Acute (2) Hyperglycemia: Status: Acute (3) DKA, type 1: Status: Acute (4) Long-term insulin use: Status: Chronic (5) GERD (gastroesophageal reflux disease): Status: Chronic (6) Noncompliance with diabetes treatment: Status: Acute Additional A&P Information Hyperglycemia without ketosis History of type 1 diabetes recurrent episode of DKA in the past Start DKA protocol with insulin drip start normal saline with potassium supplementation We will let him eat once anion gap closes and bridge subcutaneous insulin with IV for about 2 hours Hemoglobin A1c is 9.5 Patient is stating that he gets 24 units of long-acting insulin twice a day, this regimen is not helping to keep his blood sugar under control, for bridging would recommend 50 units of insulin and then divided to 30 twice a day Lipase unremarkable no active signs of pancreatitis Check drug screen level Ketones negative Covid antigen negative Severe acidosis we will give him 1 amp of bicarb, Pseudohyponatremia due to high blood sugar currently on normal saline fluid resuscitation Admit to ICU Full code DVT prophylaxis not indicated due to low risk: SCDs Attestations Medical Necessity Statement*: Admit to ICU anticipating stay in the hospital cross more than 2 midnights Time Spent in Patient Care: 16 - 35 minutes Coding Level of Care Code Acute [employer] Diagnoses Nausea & vomiting R11.2 Hyperglycemia R73.9 DKA, type 1 E10.10 Long-term insulin use Z79.4 GERD (gastroesophageal reflux disease) K21.9 Noncompliance with diabetes treatment Z91.19
[2021-05-14 14:53] LABS: Glucose Point of Care 461 mg/dL (70-110)
[2021-05-14 15:14] LABS: Glucose Point of Care 490 mg/dL (70-110)
[2021-05-14 15:20] LABS: Blood Gas Allen Test Pos; Blood Gas Operator Identificat glc; Blood Gas Sample Site Radial, left; Blood Gas Sample Type Arterial; Oxygen Device ROOM AIR
[2021-05-14 15:21] LABS: Venous Blood Gas Hematocrit 7.1 % (42-52)
[2021-05-14 15:22] LABS: Base Excess VBG -23.2 mmol/L (-3.0-3.0); HCO3 VBG 12.7 mmol/L (24-28); PCO2 VBG 17.9 mmHg (41-51); pH VBG 7.07 (7.32-7.42)
[2021-05-14 15:29] LABS: Glucose Point of Care 355 mg/dL (70-110)
[2021-05-14 15:55] LABS: Estmated Average Glucose 226; Hemoglobin A1C 9.5 % (4.0-6.0)
[2021-05-14 16:08] LABS: Anion Gap 32.9 (5-19); Blood Urea Nitrogen 14 mg/dL (6-20); Calcium 7.6 mg/dL (8.5-10.5); Chloride 100 mmol/L (98-107); Glomerular Filtration Rate 103.7 mL/min (90-130); Glucose 387 mg/dL (65-115); Osmolality Calculated 297 mOsm/kg (285-295); Potassium 4.9 mmol/L (3.5-5.1); Sodium 135 mmol/L (136-145)
[2021-05-14 16:08] LABS: Glucose Point of Care 306 mg/dL (70-110)
[2021-05-14 16:11] LABS: Carbon Dioxide 7 mmol/L (22-29)
[2021-05-14 16:12] LABS: Procalcitonin 0.19 ng/mL (0-0.5)
[2021-05-14 16:46] LABS: Glucose Point of Care 249 mg/dL (70-110)
[2021-05-14] MEDS: dextrose 5 % 500 ML 100 ML IV (16:51)
--- NOTE | 2021-05-14 16:55 | PC.NURSE ---
D5w PRN order initiated per verbal order, as BG reached 249.
[2021-05-14 17:20] LABS: Glucose Point of Care 231 mg/dL (70-110)
--- NOTE | 2021-05-14 18:02 | PC.NURSE ---
patient mother called. Patient gives verbal consent to update on admission.
[2021-05-14] MEDS: enoxaparin 40 mg/0.4 mL Syringe SUBCUT (20:22)
[2021-05-14] MEDS: sodium bicarbonate 8.4% 1 mEq/mL 50mL Syr 25 MEQ IVP (20:22)
[2021-05-14] MEDS: metoclopramide 5 mg/mL SDV 2 mL 10 MG IVP (20:23)
[2021-05-14 21:03] LABS: Blood Urea Nitrogen 12 mg/dL (6-20); Calcium 7.7 mg/dL (8.5-10.5); Carbon Dioxide 11 mmol/L (22-29); Glomerular Filtration Rate 118.8 mL/min (90-130); Glucose 152 mg/dL (65-115)
[2021-05-14] MEDS: D5-NS 0.45% + KCL 20 mEq 20 MEQ/1,000 ML BAG 125 MEQ IV (21:16)
[2021-05-14 21:17] LABS: Glucose Point of Care 190 mg/dL (70-110)
[2021-05-14 21:42] LABS: Chloride 106 mmol/L (98-107); Potassium 4.2 mmol/L (3.5-5.1); Sodium 136 mmol/L (136-145)
[2021-05-14 21:53] LABS: Anion Gap 23.2 (5-19); Osmolality Calculated 285 mOsm/kg (285-295)
[2021-05-14 23:30] LABS: Glucose Point of Care 124 mg/dL (70-110)
[2021-05-14 23:30] LABS: Glucose Point of Care 123 mg/dL (70-110)
[2021-05-14 23:30] LABS: Glucose Point of Care 145 mg/dL (70-110)
[2021-05-15] VITALS (15 sets, daily range): BP systolic 101–129; BP diastolic 51–78; PULSE 85–101; RESP 15–32; TEMP 36.7–36.9; O2SAT 91–100
[2021-05-15 00:07] LABS: Anion Gap 24.1 (5-19); Blood Urea Nitrogen 9 mg/dL (6-20); Calcium 7.3 mg/dL (8.5-10.5); Chloride 107 mmol/L (98-107); Glomerular Filtration Rate 118.8 mL/min (90-130); Glucose 136 mg/dL (65-115); Osmolality Calculated 283 mOsm/kg (285-295); Potassium 4.1 mmol/L (3.5-5.1); Sodium 136 mmol/L (136-145)
[2021-05-15 00:13] LABS: Carbon Dioxide 9 mmol/L (22-29)
[2021-05-15 01:08] LABS: Glucose Point of Care 162 mg/dL (70-110)
[2021-05-15 03:07] LABS: Glucose Point of Care 180 mg/dL (70-110)
[2021-05-15 03:07] LABS: Glucose Point of Care 178 mg/dL (70-110)
[2021-05-15 03:07] LABS: Glucose Point of Care 136 mg/dL (70-110)
[2021-05-15 04:27] LABS: Glucose Point of Care 184 mg/dL (70-110)
[2021-05-15 05:01] LABS: Glucose Point of Care 217 mg/dL (70-110)
[2021-05-15 05:02] LABS: Basophils % 0.2 %; Hematocrit 41.9 % (42.0-52.0); Lymphocytes # 0.8 10^3/uL (0.8-4.8); Lymphocytes % 7.7 %; Mean Corpuscular HGB Conc 33.4 g/dL (30.0-36.0); Mean Corpuscular Hemoglobin 30.8 pg (28.0-34.0); Mean Corpuscular Volume 92.3 fl (80-94); Monocytes # 0.7 10^3/uL (0.2-0.9); Monocytes % 6.2 %; Neutrophils # 8.99 10^3/uL (1.8-7.7); Neutrophils % 85.5 %; Nucleated Red Blood Cells % 0 %; Platelet Count 245 10^3/cmm (130-400); Red Blood Count 4.54 10^6/uL (4.1-5.3); Red Cell Distribution Width 11.9 % (12.1-15.1); White Blood Count 10.5 10^3/uL (4.0-10.0)
[2021-05-15] MEDS: insulin regular-human 250 UNIT in sodium chloride 0.9% 250 ML IV (05:06)
[2021-05-15 05:12] LABS: Ketone (Acetest) Serum Positive (Negative)
[2021-05-15 05:22] LABS: Magnesium 1.7 mg/dL (1.7-2.3)
[2021-05-15] MEDS: D5-NS 0.45% + KCL 20 mEq 20 MEQ/1,000 ML BAG 125 MEQ IV (05:59)
[2021-05-15 06:00] LABS: Glucose Point of Care 237 mg/dL (70-110)
--- NOTE | 2021-05-15 06:08 | PC.NURSE ---
Shift Note Frequent safety and comfort rounds continue. Pt slept throughout most of the night. Orders and/or nursing care completed as indicated. Patient monitored for response to intervention and treatments. Education provided includes importance of monitoring his blood sugar. Patient verbalized understanding but needs reinforcement. Will continue to monitor.
--- NOTE | 2021-05-15 06:12 | PC.NURSE ---
Date/TIme: BG: BG-60: Multiplier: Units/hr: ml/hr: 05/14 2000 190 130 0.03 3.9 3.9 2100 145 85 0.03 2.55 2.5 2200 124 64 0.03 1.92 1.9 2300 123 63 0.02 1.26 1.2 05/15 0000 136 76 0.01 0.76 0.7 0100 162 102 0.01 1.02 1.02 0200 178 118 0.01 1.18 1.18 0300 180 120 0.01 1.2 1.2 0400 189 129 0.02 2.58 2.58 0500 218 158 0.03 4.74 4.74 0600 237 177 0.04 7.08 7.08 Had to get a new label for the insulin bag. When I scanned in the insulin it would not let me back time the start time before midnight therefore was not able to document the titrations. Double checked with RNs. See IV insulin flow sheet.
[2021-05-15 07:07] LABS: Glucose Point of Care 224 mg/dL (70-110)
[2021-05-15 08:06] LABS: Glucose Point of Care 152 mg/dL (70-110)
[2021-05-15 09:06] LABS: Glucose Point of Care 139 mg/dL (70-110)
[2021-05-15 09:10] LABS: Anion Gap 16.6 (5-19); Blood Urea Nitrogen 6 mg/dL (6-20); Calcium 7.6 mg/dL (8.5-10.5); Carbon Dioxide 15 mmol/L (22-29); Chloride 105 mmol/L (98-107); Glomerular Filtration Rate 165.5 mL/min (90-130); Glucose 145 mg/dL (65-115); Osmolality Calculated 276 mOsm/kg (285-295); Potassium 3.6 mmol/L (3.5-5.1); Sodium 133 mmol/L (136-145)
[2021-05-15 10:06] LABS: Glucose Point of Care 124 mg/dL (70-110)
--- NOTE | 2021-05-15 11:43 | P.DS_ITS ---
Discharge Providers Date of Admission: 05/14/21 12:56 Date of Discharge: May 15, 2021 Attending Provider at Admission: Boris Boyer MD Attending Provider at Discharge: Boris Boyer MD Primary Care Provider: MARGE Castellano Diagnoses at Discharge Discharge Diagnosis (1) Nausea & vomiting: Status: Acute (2) Hyperglycemia: Status: Acute (3) DKA, type 1: Status: Acute (4) Long-term insulin use: Status: Chronic (5) GERD (gastroesophageal reflux disease): Status: Chronic (6) Noncompliance with diabetes treatment: Status: Acute Reason for Visit Reason for Visit: N/V X 2 DAYS Hospital Course Hospital Course young male who has history of type 1 diabetes has had multiple admissions secondary to DKA, he left AMA from ICU during previous admission. Presented with chief complaint of worsening nausea and vomiting. Patient was stating that he was taking 24 units twice a day (however he was discharged on 35 units twice a day) He was admitted to ICU for IV insulin DKA protocol. Anion gap closed next day, Lantus 30 units were given, and his diet was advanced, his nausea and vomiting improved overnight. He will be discharged home with Lantus 40 units twice a day, patient is stating that he does NovoLog sliding scale as well at home, his hemoglobin A1c is 9.5. He was also given 1 dose of bicarb to improve acidosis. No signs of encephalopathy black eschar of Rhizopus or mucormycosis. He will be discharged today on 05/15 with Lantus 40 units twice a day and NovoLog sliding scale. Referral for endocrinology. Physical Exam Narrative: EXAM NARRATIVE: Young male No audible stridor or wheezing Also noticed nasal ulcer however does not look like Rhizopus black eschar Abdomen nondistended Lower extremity no edema Unkept appearance, Poor dental hygiene No joint swelling No sign of cellulitis gangrene or cyanosi Discharge Data Data Completed and Pending: Pending at discharge Category Date Time Status Blood Culture Sta t Lab 05/14/21 14:25 Results Labs from last 24 hours 05/15/21 05/15/21 05/15/21 10:02 09:02 08:35 WBC RBC Hgb Hct MCV MCH MCHC RDW Plt Count MPV Neut % (Auto) Lymph % (Auto) [place] % (Auto) Eos % (Auto) Baso % (Auto) Neut # (Auto) Lymph # (Auto) [place] # (Auto) Eos # (Auto) Baso # (Auto) Nucleated RBC % (a uto) Nucleated RBCs # Specimen Type Sample Site Hasmukh Test VBG pH VBG pCO2 VBG pO2 VBG HCO3 VBG Base Excess VBG Hematocrit O2 Delivery Device FiO2 Fish Conservationist ID Sodium 133 L Potassium 3.6 Chloride 105 Carbon Dioxide 15 L Anion Gap 16.6 BUN 6 Creatinine 0.6 L GFR Calculation 165.5 H Glucose 145 H POC Glucose 124 H 139 H Estimat Average Gl ucose Hemoglobin A1c Calculated Osmolal ity 276 L Lactate Calcium 7.6 L Magnesium Total Bilirubin AST ALT Alkaline Phosphata se Total Protein Albumin Globulin Lipase Procalcitonin Serum Ketones SARS-CoV-2 Ag (Rap id) 05/15/21 05/15/21 05/15/21 08:02 07:00 05:54 WBC RBC Hgb Hct MCV MCH MCHC RDW Plt Count MPV Neut % (Auto) Lymph % (Auto) [place] % (Auto) Eos % (Auto) Baso % (Auto) Neut # (Auto) Lymph # (Auto) [place] # (Auto) Eos # (Auto) Baso # (Auto) Nucleated RBC % (a uto) Nucleated RBCs # Specimen Type Sample Site Hasmukh Test VBG pH VBG pCO2 VBG pO2 VBG HCO3 VBG Base Excess VBG Hematocrit O2 Delivery Device FiO2 Fish Conservationist ID Sodium Potassium Chloride Carbon Dioxide Anion Gap BUN Creatinine GFR Calculation Glucose POC Glucose 152 H 224 H 237 H Estimat Average Gl ucose Hemoglobin A1c Calculated Osmolal ity Lactate Calcium Magnesium Total Bilirubin AST ALT Alkaline Phosphata se Total Protein Albumin Globulin Lipase Procalcitonin Serum Ketones SARS-CoV-2 Ag (Rap id) 05/15/21 05/15/21 05/15/21 04:59 04:23 04:00 WBC RBC Hgb Hct MCV MCH MCHC RDW Plt Count MPV Neut % (Auto) Lymph % (Auto) [place] % (Auto) Eos % (Auto) Baso % (Auto) Neut # (Auto) Lymph # (Auto) [place] # (Auto) Eos # (Auto) Baso # (Auto) Nucleated RBC % (a uto) Nucleated RBCs # Specimen Type Sample Site Hasmukh Test VBG pH VBG pCO2 VBG pO2 VBG HCO3 VBG Base Excess VBG Hematocrit O2 Delivery Device FiO2 Fish Conservationist ID Sodium Potassium Chloride Carbon Dioxide Anion Gap BUN Creatinine GFR Calculation Glucose POC Glucose 217 H 184 H Estimat Average Gl ucose Hemoglobin A1c Calculated Osmolal ity Lactate Calcium Magnesium Total Bilirubin AST ALT Alkaline Phosphata se Total Protein Albumin Globulin Lipase Procalcitonin Serum Ketones Positive H SARS-CoV-2 Ag (Rap id) 05/15/21 05/15/21 05/15/21 04:00 04:00 03:03 WBC 10.5 H RBC 4.54 Hgb 14.0 Hct 41.9 L MCV 92.3 MCH 30.8 MCHC 33.4 RDW 11.9 L Plt Count 245 MPV 10.0 Neut % (Auto) 85.5 Lymph % (Auto) 7.7 [place] % (Auto) 6.2 Eos % (Auto) 0.0 Baso % (Auto) 0.2 Neut # (Auto) 8.99 H Lymph # (Auto) 0.8 [place] # (Auto) 0.7 Eos # (Auto) 0.0 Baso # (Auto) 0.0 Nucleated RBC % (a uto) 0 Nucleated RBCs # 0.0 Specimen Type Sample Site Hasmukh Test VBG pH VBG pCO2 VBG pO2 VBG HCO3 VBG Base Excess VBG Hematocrit O2 Delivery Device FiO2 Fish Conservationist ID Sodium Potassium Chloride Carbon Dioxide Anion Gap BUN Creatinine GFR Calculation Glucose POC Glucose 180 H Estimat Average Gl ucose Hemoglobin A1c Calculated Osmolal ity Lactate Calcium Magnesium 1.7 Total Bilirubin AST ALT Alkaline Phosphata se Total Protein Albumin Globulin Lipase Procalcitonin Serum Ketones SARS-CoV-2 Ag (Rap id) 05/15/21 05/15/21 05/15/21 01:57 01:06 00:04 WBC RBC Hgb Hct MCV MCH MCHC RDW Plt Count MPV Neut % (Auto) Lymph % (Auto) [place] % (Auto) Eos % (Auto) Baso % (Auto) Neut # (Auto) Lymph # (Auto) [place] # (Auto) Eos # (Auto) Baso # (Auto) Nucleated RBC % (a uto) Nucleated RBCs # Specimen Type Sample Site Hasmukh Test VBG pH VBG pCO2 VBG pO2 VBG HCO3 VBG Base Excess VBG Hematocrit O2 Delivery Device FiO2 Fish Conservationist ID Sodium Potassium Chloride Carbon Dioxide Anion Gap BUN Creatinine GFR Calculation Glucose POC Glucose 178 H 162 H 136 H Estimat Average Gl ucose Hemoglobin A1c Calculated Osmolal ity Lactate Calcium Magnesium Total Bilirubin AST ALT Alkaline Phosphata se Total Protein Albumin Globulin Lipase Procalcitonin Serum Ketones SARS-CoV-2 Ag (Rap id) 05/14/21 05/14/21 05/14/21 23:38 23:12 21:48 WBC RBC Hgb Hct MCV MCH MCHC RDW Plt Count MPV Neut % (Auto) Lymph % (Auto) [place] % (Auto) Eos % (Auto) Baso % (Auto) Neut # (Auto) Lymph # (Auto) [place] # (Auto) Eos # (Auto) Baso # (Auto) Nucleated RBC % (a uto) Nucleated RBCs # Specimen Type Sample Site Hasmukh Test VBG pH VBG pCO2 VBG pO2 VBG HCO3 VBG Base Excess VBG Hematocrit O2 Delivery Device FiO2 Fish Conservationist ID Sodium 136 Potassium 4.1 Chloride 107 Carbon Dioxide 9 L Anion Gap 24.1 H BUN 9 Creatinine 0.8 GFR Calculation 118.8 Glucose 136 H POC Glucose 123 H 124 H Estimat Average Gl ucose Hemoglobin A1c Calculated Osmolal ity 283 L Lactate Calcium 7.3 L Magnesium Total Bilirubin AST ALT Alkaline Phosphata se Total Protein Albumin Globulin Lipase Procalcitonin Serum Ketones SARS-CoV-2 Ag (Rap id) 05/14/21 05/14/21 05/14/21 21:07 20:06 19:35 WBC RBC Hgb Hct MCV MCH MCHC RDW Plt Count MPV Neut % (Auto) Lymph % (Auto) [place] % (Auto) Eos % (Auto) Baso % (Auto) Neut # (Auto) Lymph # (Auto) [place] # (Auto) Eos # (Auto) Baso # (Auto) Nucleated RBC % (a uto) Nucleated RBCs # Specimen Type Sample Site Hasmukh Test VBG pH VBG pCO2 VBG pO2 VBG HCO3 VBG Base Excess VBG Hematocrit O2 Delivery Device FiO2 Fish Conservationist ID Sodium 136 Potassium 4.2 Chloride 106 Carbon Dioxide 11 L Anion Gap 23.2 H BUN 12 Creatinine 0.8 GFR Calculation 118.8 Glucose 152 H POC Glucose 145 H 190 H Estimat Average Gl ucose Hemoglobin A1c Calculated Osmolal ity 285 Lactate Calcium 7.7 L Magnesium Total Bilirubin AST ALT Alkaline Phosphata se Total Protein Albumin Globulin Lipase Procalcitonin Serum Ketones SARS-CoV-2 Ag (Rap id) 05/14/21 05/14/21 05/14/21 17:17 16:38 16:05 WBC RBC Hgb Hct MCV MCH MCHC RDW Plt Count MPV Neut % (Auto) Lymph % (Auto) [place] % (Auto) Eos % (Auto) Baso % (Auto) Neut # (Auto) Lymph # (Auto) [place] # (Auto) Eos # (Auto) Baso # (Auto) Nucleated RBC % (a uto) Nucleated RBCs # Specimen Type Sample Site Hasmukh Test VBG pH VBG pCO2 VBG pO2 VBG HCO3 VBG Base Excess VBG Hematocrit O2 Delivery Device FiO2 Fish Conservationist ID Sodium Potassium Chloride Carbon Dioxide Anion Gap BUN Creatinine GFR Calculation Glucose POC Glucose 231 H 249 H 306 H Estimat Average Gl ucose Hemoglobin A1c Calculated Osmolal ity Lactate Calcium Magnesium Total Bilirubin AST ALT Alkaline Phosphata se Total Protein Albumin Globulin Lipase Procalcitonin Serum Ketones SARS-CoV-2 Ag (Rap id) 05/14/21 05/14/21 05/14/21 15:30 15:26 15:11 WBC RBC Hgb Hct MCV MCH MCHC RDW Plt Count MPV Neut % (Auto) Lymph % (Auto) [place] % (Auto) Eos % (Auto) Baso % (Auto) Neut # (Auto) Lymph # (Auto) [place] # (Auto) Eos # (Auto) Baso # (Auto) Nucleated RBC % (a uto) Nucleated RBCs # Specimen Type Sample Site Hasmukh Test VBG pH VBG pCO2 VBG pO2 VBG HCO3 VBG Base Excess VBG Hematocrit O2 Delivery Device FiO2 Fish Conservationist ID Sodium 135 L Potassium 4.9 Chloride 100 Carbon Dioxide 7 L* Anion Gap 32.9 H BUN 14 Creatinine 0.9 GFR Calculation 103.7 Glucose 387 H POC Glucose 355 H 490 H Estimat Average Gl ucose Hemoglobin A1c Calculated Osmolal ity 297 H Lactate Calcium 7.6 L Magnesium Total Bilirubin AST ALT Alkaline Phosphata se Total Protein Albumin Globulin Lipase Procalcitonin 0.19 Serum Ketones SARS-CoV-2 Ag (Rap id) 05/14/21 05/14/21 05/14/21 15:05 14:50 14:30 WBC RBC Hgb Hct MCV MCH MCHC RDW Plt Count MPV Neut % (Auto) Lymph % (Auto) [place] % (Auto) Eos % (Auto) Baso % (Auto) Neut # (Auto) Lymph # (Auto) [place] # (Auto) Eos # (Auto) Baso # (Auto) Nucleated RBC % (a uto) Nucleated RBCs # Specimen Type Arterial Sample Site Radial, left Hasmukh Test Pos VBG pH 7.07 L* VBG pCO2 17.9 L* VBG pO2 120.0 H VBG HCO3 12.7 L VBG Base Excess -23.2 L VBG Hematocrit 7.1 L O2 Delivery Device Room air FiO2 21.0 Fish Conservationist ID glc Sodium Potassium Chloride Carbon Dioxide Anion Gap BUN Creatinine GFR Calculation Glucose POC Glucose 461 H 535 H* Estimat Average Gl ucose Hemoglobin A1c Calculated Osmolal ity Lactate Calcium Magnesium Total Bilirubin AST ALT Alkaline Phosphata se Total Protein Albumin Globulin Lipase Procalcitonin Serum Ketones SARS-CoV-2 Ag (Rap id) 05/14/21 05/14/21 05/14/21 13:16 12:09 11:50 WBC RBC Hgb Hct MCV MCH MCHC RDW Plt Count MPV Neut % (Auto) Lymph % (Auto) [place] % (Auto) Eos % (Auto) Baso % (Auto) Neut # (Auto) Lymph # (Auto) [place] # (Auto) Eos # (Auto) Baso # (Auto) Nucleated RBC % (a uto) Nucleated RBCs # Specimen Type Sample Site Hasmukh Test VBG pH VBG pCO2 VBG pO2 VBG HCO3 VBG Base Excess VBG Hematocrit O2 Delivery Device FiO2 Fish Conservationist ID Sodium Potassium Chloride Carbon Dioxide Anion Gap BUN Creatinine GFR Calculation Glucose POC Glucose 497 H Estimat Average Gl ucose 226 Hemoglobin A1c 9.5 H Calculated Osmolal ity Lactate Calcium Magnesium Total Bilirubin AST ALT Alkaline Phosphata se Total Protein Albumin Globulin Lipase Procalcitonin Serum Ketones SARS-CoV-2 Ag (Rap id) Negative 05/14/21 05/14/21 05/14/21 11:50 11:50 11:50 WBC RBC Hgb Hct MCV MCH MCHC RDW Plt Count MPV Neut % (Auto) Lymph % (Auto) [place] % (Auto) Eos % (Auto) Baso % (Auto) Neut # (Auto) Lymph # (Auto) [place] # (Auto) Eos # (Auto) Baso # (Auto) Nucleated RBC % (a uto) Nucleated RBCs # Specimen Type Sample Site Hasmukh Test VBG pH VBG pCO2 VBG pO2 VBG HCO3 VBG Base Excess VBG Hematocrit O2 Delivery Device FiO2 Fish Conservationist ID Sodium 129 L Potassium 5.0 Chloride 89 L Carbon Dioxide 9 L Anion Gap 36.0 H BUN 14 Creatinine 1.0 GFR Calculation 91.8 Glucose 493 H POC Glucose Estimat Average Gl ucose Hemoglobin A1c Calculated Osmolal ity 290 Lactate 2.4 H Calcium 8.7 Magnesium Total Bilirubin 0.6 AST 18 ALT 14 Alkaline Phosphata se 78 Total Protein 7.7 Albumin 4.5 Globulin 3.2 Lipase 10 L Procalcitonin Serum Ketones Negative SARS-CoV-2 Ag (Rap id) 05/14/21 11:50 WBC 7.8 RBC 5.34 H Hgb 16.4 Hct 50.1 MCV 93.8 MCH 30.7 MCHC 32.7 RDW 12.0 L Plt Count 290 MPV 10.3 Neut % (Auto) 83.1 Lymph % (Auto) 12.9 [place] % (Auto) 2.7 Eos % (Auto) 0.0 Baso % (Auto) 0.8 Neut # (Auto) 6.49 Lymph # (Auto) 1.0 [place] # (Auto) 0.2 Eos # (Auto) 0.0 Baso # (Auto) 0.1 Nucleated RBC % (a uto) 0 Nucleated RBCs # 0.0 Specimen Type Sample Site Hasmukh Test VBG pH VBG pCO2 VBG pO2 VBG HCO3 VBG Base Excess VBG Hematocrit O2 Delivery Device FiO2 Fish Conservationist ID Sodium Potassium Chloride Carbon Dioxide Anion Gap BUN Creatinine GFR Calculation Glucose POC Glucose Estimat Average Gl ucose Hemoglobin A1c Calculated Osmolal ity Lactate Calcium Magnesium Total Bilirubin AST ALT Alkaline Phosphata se Total Protein Albumin Globulin Lipase Procalcitonin Serum Ketones SARS-CoV-2 Ag (Rap id) Vitals: Last Vital Signs Temp 98.5 F 05/15/21 04:00 Pulse 101 H 05/15/21 10:00 Resp 18 05/15/21 10:00 BP 116/72 05/15/21 10:00 Pulse Ox 99 05/15/21 10:00 Discharge Plan Discharge Patient Disposition: Home Condition: Stable Prescriptions: Continued (DME) Dexcom G6 Load Dispatcher Misc See Rx Instructions .ROUTE .MEDSUPPLY Qty: 1 RF: 0 (DME) Dexcom G6 Sensor Device See Rx Instructions .ROUTE .MEDSUPPLY Qty: 3 RF: 3 (DME) Dexcom G6 Transmitter Device See Rx Instructions .ROUTE .MEDSUPPLY Qty: 3 RF: 3 (DME) blood sugar diagnostic Strip See Rx Instructions .Route Qty: 100 RF: 0 (DME) Blood Glucose Test Strip See Rx Instructions .Route Qty: 100 RF: 0 (DME) blood-glucose meter [Blood Glucose Monitoring] Kit See Rx Instructions .Route Qty: 1 RF: 0 insulin aspart U-100 [Novolog Flexpen U-100 Insulin] 100 unit/mL (3 mL) insulin pen See Rx Instructions unit .ROUTE .COMPLEX RF: 0 famotidine 20 mg tablet 20 mg PO BID RF: 0 Changed Lantus U-100 Insulin 100 unit/mL solution 40 unit SUBCUT BID 30 Days Qty: 1 RF: 3 Discharge Orders: Discharge Order (Routine); Ordered 05/15/21 Ordered By: Boris Boyer Referrals: Earlene Titus FNP-C [Primary Care Provider] - Evelin Metz MD [Physician] - 1-3 days Discharge Diet: Diabetic Discharge Activity: Resume usual activity Patient Instructions: Opioid Safety Activity Restrictions/Additional Instructions: Please take Lantus 40 units twice daily and advance 2 units if fasting blood sugar above 130 mg in the morning Keep on increasing insulin units 2 units until you meet fasting sugar goal of 80 mg to 130 mg/dL Discharge Attestations Time Spent in Discharge Care*: less than 30 min Status at Discharge: Cognitive status at discharge: cognitively intact , Behavioral status at discharge: cooperative , Quality Metrics Clinical Quality Measures During this hospital stay, did patient experience: None Coding Level of Care Code Acute g [facility] note Diagnoses Nausea & vomiting R11.2 Hyperglycemia R73.9 DKA, type 1 E10.10 Long-term insulin use Z79.4 GERD (gastroesophageal reflux disease) K21.9 Noncompliance with diabetes treatment Z91.19
[2021-05-15] MEDS: insulin glargine 100 units/1 mL 30 UNIT SUBCUT (13:28)
--- NOTE | 2021-05-15 18:14 | PC.RESP ---
SMOKING CESSATION INFORMATION SENT TO PATIENT.
== END 2021-05-15 14:15 | disposition home or self-care (01) | DRG 639 ==
LOC: ER 12:02 → ER IP 17:03 → ICU 18:55
PROVIDERS: Admitting Provider Internal Medicine; Emergency Provider Emergency Medicine; PCP Nurse Practitioner Family; Visit Provider Internal Medicine
DX: E10.10 Type 1 diabetes mellitus with ketoacidosis without coma (principal); K21.9 Gastro-esophageal reflux disease without esophagitis; F15.10 Other stimulant abuse, uncomplicated; F12.90 Cannabis use, unspecified, uncomplicated; F17.210 Nicotine dependence, cigarettes, uncomplicated; Z91.14 Patient's other noncompliance with medication regimen
CPT/HCPCS: 36415; 36416; 36600; 80048; 80053; 82009; 82803; 82962; 83036; 83605; 83690; 83735; 84145; 85025; 87040; 87426; 93005; 96361; 96365; 96366; 96372; 96375; 99291; J1650; J1815 ×2; J2405; J2765; J3480; J7030; J7050

== ENCOUNTER 2021-05-16 07:21 | Inpatient (IN) | payer MEDICARE, MEDICAID, SELFPAY ==
[2021-05-16] VITALS (55 sets, daily range): BP systolic 105–146; BP diastolic 60–100; PULSE 97–146; RESP 0–26; TEMP 36.6–37.5; O2SAT 91–100; BMI 23.3
--- NOTE | 2021-05-16 07:26 | XRR_ITS ---
PROCEDURE INFORMATION: Exam: XR Chest Exam date and time: 05/16/2021 7:26 AM Age: 26 years old Clinical indication: Cough and dyspnea; Additional info: Dyspnea/cough TECHNIQUE: Imaging protocol: XR of the chest. Views: 1 view. Total images: 1 COMPARISON: CR XR chest 1V portable [id number] 03/30/2021 10:18 PM FINDINGS: Lungs: Unremarkable. No consolidation. Pleural spaces: Unremarkable. No pleural effusion. No pneumothorax. Heart/Mediastinum: Unremarkable. No cardiomegaly. Bones/joints: Unremarkable. XR/XR chest 1V portable [id number] IMPRESSION: No acute findings.
--- NOTE | 2021-05-16 07:34 | ED_ITS ---
HPI - General Adult General: Chief complaint: Nausea/Vomiting/Diarrhea Stated complaint: nausea/ vomiting/ weakness Time Seen by Provider: 05/16/21 07:25 History of Present Illness: HPI narrative: 26-year-old male with a history of diabetes mellitus and recurrent admissions for DKA. He presents to the emergency room via EMS after being discharged from the ICU yesterday. 2 days ago patient presented to the ER and what appeared to be DKA but interestingly d id not have any serum ketones he was hyperglycemic he was admitted given IV fluids and insulin which corrected his anion gap and he was ultimately discharged from the ICU yesterday in the morning. He tells me he took his insulin like it was prescribed but he is unable to tell me when he took it exactly and exactly how much he took it he did say take it both last night and this morning just before coming in. Complains of generally aching all over with nausea and vomiting and some diarrhea. His blood sugar in the field was 333. Onset (ago): hour(s) Severity: moderate Quality: aching Pain Consistency: constant Relieving factors: none Exacerbating factors: none Associated symptoms: Reports diaphoresis, decreased appetite, malaise, nausea, vomiting and weakness; Deny chest pain, confusion, cough, dyspnea, fevers/chills, headache(s), rash, palpitations, seizures, short of breath or syncope Treatments prior to arrival: none Review of Systems Const: Reports: malaise and diaphoresis ENMT: Denies: throat pain, ear or mastoid pain, nasal discharge or nasal congestion Card: Denies: chest pain, palpitations or syncope Resp: Denies: dyspnea GI: Reports: nausea and vomiting : Denies: flank pain, dysuria, urinary frequency or urinary urgency Skin/Breast: Denies: rash Neuro: Denies: headache(s) or confusion PFSH ED PFSH: Medical History DKA (diabetic ketoacidoses) GERD (gastroesophageal reflux disease) Hyperglycemia Long-term insulin use Marijuana use Methamphetamine abuse Nausea & vomiting Noncompliance with diabetes treatment Pancreatitis Type 1 diabetes With recurrent admissions for DKA, severe Uncontrolled type 1 diabetes mellitus Surgical History No pertinent past surgical history Family History Other Diabetes Social History Smoking and tobacco status: current every day smoker Alcohol intake: never Lives independently: Yes Household members: significant other Marital status: Single Current occupational status: unemployed Physical Exam Const: ORIENTATION/CONSCIOUSNESS: Yes awake, Yes oriented to person, Yes oriented to place and Yes oriented to time HENMT: COMMON NORMALS: normocephalic, atraumatic and hearing grossly normal bilaterally HEAD & SCALP: normocephalic and atraumatic Neck/C-Spine: COMMON NORMALS: no JVD Resp: COMMON NORMALS: normal respiratory effort, No retractions, No use of accessory muscles and clear to auscultation bilaterally AUSCULTATION: clear to auscultation bilaterally Cardio: COMMON NORMALS: no JVD, regular rhythm and No murmurs present (Cardio) RATE: tachycardic RHYTHM: regular rhythm GI: COMMON NORMALS: Soft to palpation and No hepatosplenomegaly present AUSCULTATION: Yes normoactive bowel sounds PALPATION: Yes Soft to palpation, No Tenderness to palpation present (GI), No Guarding due to palpation present (GI) and Yes No hepatosplenomegaly present Extremity: COMMON NORMALS: normal to inspection, capillary refill normal, no clubbing, cyanosis or edema, no calf tenderness and no pedal edema Neuro: SENSORIUM/ORIENTATION: Yes oriented to person, Yes oriented to place and Yes oriented to time Skin: COMMON NORMALS: no rashes or lesions noted GENERAL SKIN EXAM: no rashes or lesions noted Procedures EJ/Peripheral Line Arm L: Time Out Performed: Yes Skin Cleansed in Sterile Fashion: Yes Size (gauge): 18 IV Secured and Dressing Applied: Yes Patient Tolerated Procedure: well Additional Comments: Ultrasound used for assistance with IV placement. First attempt was able to get a flash but could not draw blood. Second attempt in the left brachial vein was able to get good return and flow. Catheter visualized within the lumen of the vessel on ultrasound. Course Vital Signs: Vital signs: Vital Signs Temperature 97.8 F 05/16/21 07:21 Pulse Rate 113 H 05/16/21 08:40 Respiratory Rate 20 H 05/16/21 08:40 Blood Pressure 145/97 05/16/21 08:40 Pulse Oximetry 99 05/16/21 08:40 MDM - General Adult MDM Narrative: Medical decision making narrative: Patient once again in DKA. IV fluids initiated potassium is actually already at 5.1 we have ordered a total of 4 L of normal saline we will start potassium supplement now we will giving any IV fluids. Insulin bolus and drip per hour started as well. Lab Data: Labs: Lab Results 05/16/21 05/16/21 05/16/21 Range/Units 07:32 07:49 07:49 WBC (4.0-10.0) 10^3/ uL RBC (4.1-5.3) 10^6/u L Hgb (11.7-16.6) g/dL Hct (42.0-52.0) % MCV (80-94) fl MCH (28.0-34.0) pg MCHC (30.0-36.0) g/dL RDW (12.1-15.1) % Plt Count (130-400) 10^3/c mm MPV (7.4-10.4) fL Neut % (Auto) % Lymph % (Auto) % Fountain % (Auto) % Eos % (Auto) % Baso % (Auto) % Neut # (Auto) (1.8-7.7) 10^3/u L Lymph # (Auto) (0.8-4.8) 10^3/u L Fountain # (Auto) (0.2-0.9) 10^3/u L Eos # (Auto) (0.0-0.8) 10^3/u L Baso # (Auto) (0.0-0.1) 10^3/u L Nucleated RBC % (a uto) % Nucleated RBCs # /100WBC Specimen Type Arterial Sample Site Radial, left ABG pH 7.18 L* (7.35-7.45) ABG pCO2 13.6 L* (35-45) mmHg ABG pO2 119.0 H (80.0-100.0) mmH g ABG HCO3 5.0 L (22-26) mmol/L ABG O2 Saturation 98.5 ABG Base Excess -20.5 L (-2.0-2.0) mmol/ L Hasmukh Test Pos A-a O2 Gradient 1.4 L (5-10) mmHg Hematocrit 50.9 (42-52) % Hgb O2 Saturation 96.6 (95-100) % Carboxyhemoglobin 1.0 (0.4-20.1) %THgb Methemoglobin 1.0 (0.4-1.5) % Total Hemoglobin 16.6 (14-18) g/dL Sodium 135.0 Cancelled (131-143) mmol/L Potassium 4.9 Cancelled (3.5-5.0) mmol/L Glucose 429.0 H Cancelled (70-115) mg/dL Ionized Calcium 1.3 (1.1-1.4) mmol/L O2 Delivery Device Room air FiO2 21.0 % Suture Winder Hand ID Ed Chloride Cancelled Carbon Dioxide Cancelled Anion Gap Cancelled BUN Cancelled Creatinine Cancelled GFR Calculation Cancelled Calculated Osmolal ity Cancelled Lactic Acid Calcium Cancelled Total Bilirubin Cancelled AST Cancelled ALT Cancelled Alkaline Phosphata se Cancelled Total Protein Cancelled Albumin Cancelled Globulin Cancelled Lipase Cancelled Serum Ketones Positive H (Negative) 05/16/21 05/16/21 05/16/21 Range/Units 08:29 08:29 08:29 WBC 8.1 (4.0-10.0) 10^3/ uL RBC 5.28 (4.1-5.3) 10^6/u L Hgb 16.5 (11.7-16.6) g/dL Hct 49.5 (42.0-52.0) % MCV 93.8 (80-94) fl MCH 31.3 (28.0-34.0) pg MCHC 33.3 (30.0-36.0) g/dL RDW 12.1 (12.1-15.1) % Plt Count 292 (130-400) 10^3/c mm MPV 9.6 (7.4-10.4) fL Neut % (Auto) 89.5 % Lymph % (Auto) 7.2 % Fountain % (Auto) 2.6 % Eos % (Auto) 0.0 % Baso % (Auto) 0.2 % Neut # (Auto) 7.25 (1.8-7.7) 10^3/u L Lymph # (Auto) 0.6 L (0.8-4.8) 10^3/u L Fountain # (Auto) 0.2 (0.2-0.9) 10^3/u L Eos # (Auto) 0.0 (0.0-0.8) 10^3/u L Baso # (Auto) 0.0 (0.0-0.1) 10^3/u L Nucleated RBC % (a uto) 0 % Nucleated RBCs # 0.0 /100WBC Specimen Type Sample Site ABG pH (7.35-7.45) ABG pCO2 (35-45) mmHg ABG pO2 (80.0-100.0) mmH g ABG HCO3 (22-26) mmol/L ABG O2 Saturation ABG Base Excess (-2.0-2.0) mmol/ L Hasmukh Test A-a O2 Gradient (5-10) mmHg Hematocrit (42-52) % Hgb O2 Saturation (95-100) % Carboxyhemoglobin (0.4-20.1) %THgb Methemoglobin (0.4-1.5) % Total Hemoglobin (14-18) g/dL Sodium Cancelled (131-143) mmol/L Potassium Cancelled (3.5-5.0) mmol/L Glucose Cancelled (70-115) mg/dL Ionized Calcium (1.1-1.4) mmol/L O2 Delivery Device FiO2 % Suture Winder Hand ID Chloride Cancelled Carbon Dioxide Cancelled Anion Gap Cancelled BUN Cancelled Creatinine Cancelled GFR Calculation Cancelled Calculated Osmolal ity Cancelled Lactic Acid Cancelled Calcium Cancelled Total Bilirubin Cancelled AST Cancelled ALT Cancelled Alkaline Phosphata se Cancelled Total Protein Cancelled Albumin Cancelled Globulin Cancelled Lipase Cancelled Serum Ketones (Negative) 05/16/21 05/16/21 Range/Units 08:29 08:29 WBC (4.0-10.0) 10^3/ uL RBC (4.1-5.3) 10^6/u L Hgb (11.7-16.6) g/dL Hct (42.0-52.0) % MCV (80-94) fl MCH (28.0-34.0) pg MCHC (30.0-36.0) g/dL RDW (12.1-15.1) % Plt Count (130-400) 10^3/c mm MPV (7.4-10.4) fL Neut % (Auto) % Lymph % (Auto) % Fountain % (Auto) % Eos % (Auto) % Baso % (Auto) % Neut # (Auto) (1.8-7.7) 10^3/u L Lymph # (Auto) (0.8-4.8) 10^3/u L Fountain # (Auto) (0.2-0.9) 10^3/u L Eos # (Auto) (0.0-0.8) 10^3/u L Baso # (Auto) (0.0-0.1) 10^3/u L Nucleated RBC % (a uto) % Nucleated RBCs # /100WBC Specimen Type Sample Site ABG pH (7.35-7.45) ABG pCO2 (35-45) mmHg ABG pO2 (80.0-100.0) mmH g ABG HCO3 (22-26) mmol/L ABG O2 Saturation ABG Base Excess (-2.0-2.0) mmol/ L Hasmukh Test A-a O2 Gradient (5-10) mmHg Hematocrit (42-52) % Hgb O2 Saturation (95-100) % Carboxyhemoglobin (0.4-20.1) %THgb Methemoglobin (0.4-1.5) % Total Hemoglobin (14-18) g/dL Sodium (131-143) mmol/L Potassium 5.1 (3.5-5.0) mmol/L Glucose (70-115) mg/dL Ionized Calcium (1.1-1.4) mmol/L O2 Delivery Device FiO2 % Suture Winder Hand ID Chloride Carbon Dioxide Anion Gap BUN 10 Creatinine 0.9 GFR Calculation 103.7 Calculated Osmolal ity 293 Lactic Acid 2.1 Calcium 9.1 Total Bilirubin 0.5 AST 11 ALT 13 Alkaline Phosphata se 80 Total Protein 7.9 Albumin 4.6 Globulin 3.3 Lipase Serum Ketones (Negative) Discharge Plan Discharge Patient Disposition: Admitted As Inpatient Clinical Impression: DKA (diabetic ketoacidoses) Condition: Stable Coding Level of Care Code ED Ep Technologist for [facility]g Fwd Exam Comprehensive
[2021-05-16 07:42] LABS: Alveolar-Arterial Oxygen Gradi 1.4 mmHg (5-10); Arterial Blood Gas Hematocrit 50.9 % (42-52); Base Excess ABG -20.5 mmol/L (-2.0-2.0); Blood Gas Allen Test Pos; Blood Gas Sample Type Arterial; HGB O2 Sat 96.6 % (95-100); Ionized Calcium Level - ABG 1.3 mmol/L (1.1-1.4); Oxygen Saturation ABG 98.5; Potassium Level - ABG 4.9 mmol/L (3.5-5.0); Total Hemoglobin 16.6 g/dL (14-18)
[2021-05-16 07:43] LABS: ABG PCO2 13.6 mmHg (35-45); ABG PH Result 7.18 (7.35-7.45); Blood Gas Operator Identificat ED; Blood Gas Sample Site Radial, left; Oxygen Device ROOM AIR
[2021-05-16] MEDS: LORazepam 2 mg/mL INJ 1 mL IM (08:20)
[2021-05-16 08:22] LABS: Ketone (Acetest) Serum Positive (Negative)
[2021-05-16 08:39] LABS: Basophils % 0.2 %; Hematocrit 49.5 % (42.0-52.0); Hemoglobin 16.5 g/dL (11.7-16.6); Lymphocytes # 0.6 10^3/uL (0.8-4.8); Lymphocytes % 7.2 %; Mean Corpuscular HGB Conc 33.3 g/dL (30.0-36.0); Mean Corpuscular Hemoglobin 31.3 pg (28.0-34.0); Mean Corpuscular Volume 93.8 fl (80-94); Mean Platelet Volume 9.6 fL (7.4-10.4); Monocytes # 0.2 10^3/uL (0.2-0.9); Monocytes % 2.6 %; Neutrophils # 7.25 10^3/uL (1.8-7.7); Neutrophils % 89.5 %; Nucleated Red Blood Cells % 0 %; Platelet Count 292 10^3/cmm (130-400); Red Blood Count 5.28 10^6/uL (4.1-5.3); Red Cell Distribution Width 12.1 % (12.1-15.1); White Blood Count 8.1 10^3/uL (4.0-10.0)
[2021-05-16] MEDS: ondansetron 2 mg/ML SDV 2 mL 4 MG IVP (08:39)
[2021-05-16] MEDS: sodium chloride 0.9% 1,000 ML 999 ML IV ×3 (08:40→12:08)
[2021-05-16] MEDS: insulin regular-human 100 units/1 mL 10 UNIT IVP (09:04)
[2021-05-16 09:11] LABS: Alanine Aminotransferase 13 U/L (0-41); Albumin Level 4.6 g/dL (3.5-5.2); Alkaline Phosphatase 80 IU/L (40-130); Aspartate Amino Transferase 11 U/L (0-40); Blood Urea Nitrogen 10 mg/dL (6-20); Calcium 9.1 mg/dL (8.5-10.5); Globulin 3.3 g/dL (1.3-4.6); Glomerular Filtration Rate 103.7 mL/min (90-130); Osmolality Calculated 293 mOsm/kg (285-295); Potassium 5.1 mmol/L (3.5-5.1); Total Bilirubin 0.5 mg/dL (0.15-1.2); Total Protein 7.9 g/dL (6.6-8.7)
[2021-05-16 09:12] LABS: Lactic Sepsis W/Reflex 2.1 mmol/L (0.5-2.2)
[2021-05-16] MEDS: lidocaine 1% 5 ML in potassium chloride premix 100 ML 25 ML IV (09:14)
[2021-05-16 09:32] LABS: Add Urine Microscopic? NO; Charge for UA Resulting for Rev
[2021-05-16 09:34] LABS: Anion Gap 37.1 (5-19); Chloride 95 mmol/L (98-107); Glucose 428 mg/dL (65-115); Lipase 11 U/L (13-60); Sodium 133 mmol/L (136-145)
[2021-05-16 09:36] LABS: Carbon Dioxide 6 mmol/L (22-29)
[2021-05-16 09:40] LABS: Bilirubin Urine Neg (Negative); Blood Urine Neg (Negative); Glucose Urine UA 4+ (Normal); Ketones Urine 3+ (Negative); Leukocyte Esterase Urine Negative (Negative); Nitrate Urine Negative (Negative); Protein Urine Neg (Negative); Urine Appearance Clear (CLEAR); Urine Color Straw (Yellow); Urobilinogen Urine Norm (Negative); pH Urine 5 (5-7)
[2021-05-16 10:04] LABS: Reflex Lactate Order REFLEX LACTIC ORDERD
[2021-05-16] MEDS: morphine 4 mg/mL SDV 1 mL IVP (10:05)
[2021-05-16] MEDS: insulin regular-human 250 UNIT in sodium chloride 0.9% 250 ML 13.6 UNIT IV (10:09)
--- NOTE | 2021-05-16 11:34 | P.HP_ITS ---
Providers/Chief Complaint Admitting Physician: Randy Mckeon MD Primary Care Provider: AVEL Castellano-Francisco Chief Complaint: nausea/ vomiting/ weakness History of Present Illness Salvatore Ott is a 26 year old male with a past medical history of noncompliant type I diabetic, history of multiple admissions secondary to DKA, recently admitted for DKA, discharged on 05/15/2021, history of leaving AGAINST MEDICAL ADVICE, who presents to [facility] due to nausea, vomiting, l ightheadedness, feeling unwell. 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 No abdominal pain, denies drinking alcohol, no diarrhea, no dysuria, no fevers, no shortness of breath, no chest pain, no headache, no blurry vision. In the emergency room patient was found to be tachycardic, heart rates in the 140s, normotensive, saturating high 90s on room air, pH 7.18, bicarb 6, blood sugar 428, ketones positive, serum sodium 133, potassium 5.1. Lipase within normal limits, denies any drug use, chest x-ray no focal pneumonia, no UTI, rapid Covid negative during last hospitalization, no Covid symptoms White blood cell count 8.1, no abdominal pain, no LFT elevation he was given potassium replacement, started on insulin drip, receiving fluid therapy. Currently heart rates in the 120s, normotensive, evidence of clue small breathing, he is alert and oriented x3, but complaining of a lot of pain. Patient had poor IV access, no peripheral IVs could not be obtained, and there was concerns of reattempting a central line as he just had central line placed and has had multiple central lines placed, decision was made to put in a right intraosseous line in the right tibia. Currently nursing staff are try to obtain an IV, patient is quite agitated, complaining a lot of pain at location of intraosseous site. Review of Systems Const: Reports: body aches, fatigue and malaise; Denies: fever(s) or chills Eyes: Denies: change in vision or blurry vision ENMT: Denies: nasal congestion Card: Denies: chest pain, palpitations, edema, swelling of feet/ankles or dyspnea on exertion Resp: Denies: dyspnea, productive cough, non-productive cough or wheezing GI: Reports: nausea and vomiting; Denies: abdominal pain, hematemesis, diarrhea, constipation, hematochezia or melena : Denies: flank pain, difficulty urinating, dysuria or urinary frequency Musc: Denies: neck pain or back pain Skin/Breast: Denies: rash Neuro: Denies: headache(s), dizziness or vertigo Psych: Denies: anxiety or depression Endo: Reports: polyuria and polydipsia Medications/Allergies Home Medications Medication Instructions Recorded Confirmed Last Taken Type blood-glucose meter,continuous #1 11/26/20 05/16/21 Unknown Rx blood-glucose sensor #3 ea 11/26/20 05/16/21 Unknown Rx blood-glucose transmitter #3 ea 11/26/20 05/16/21 Unknown Rx insulin aspart U-100 [Novolog See Rx Instructions .ROUTE .COMPLEX 02/16/21 05/16/21 03/30/21 History Flexpen U-100 Insulin] famotidine 20 mg PO BID 03/15/21 05/16/21 Unknown History Blood Glucose Test #100 ea 03/20/21 05/16/21 Unknown Rx blood sugar diagnostic #100 ea 03/20/21 05/16/21 Unknown Rx blood-glucose meter [Blood Glucose #1 ea 03/20/21 05/16/21 Unknown Rx Monitoring] Lantus U-100 Insulin 40 unit SUBCUT BID 30 Days #1 05/15/21 05/16/21 03/30/21 Rx device Allergies Allergy/AdvReac Type Severity Reaction Status Date / Time promethazine [From Phenergan] Allergy Unknown Verified 05/14/21 11:34 PFSH Acute PFSH: Medical History DKA (diabetic ketoacidoses) GERD (gastroesophageal reflux disease) Hyperglycemia Long-term insulin use Marijuana use Methamphetamine abuse Nausea & vomiting Noncompliance with diabetes treatment Pancreatitis Type 1 diabetes With recurrent admissions for DKA, severe Uncontrolled type 1 diabetes mellitus Surgical History No pertinent past surgical history Family History Other Diabetes Social History Smoking and tobacco status: current every day smoker Alcohol intake: never Lives independently: Yes Household members: significant other Marital status: Single Current occupational status: unemployed Vitals/I&O/Wt Last Vital Signs Temp 97.8 F 05/16/21 07:21 Pulse 146 H 05/16/21 10:37 Resp 25 H 05/16/21 10:37 BP 138/100 05/16/21 10:37 Pulse Ox 99 05/16/21 10:37 05/15/21 05/16/21 05/16/21 22:59 06:59 14:59 Intake Total 651.85 / 651.85 Balance 651.85 / 651.85 Weight last 48 hrs Weight 63.503 kg Physical Exam Const: COMMON NORMALS: no acute distress and patient oriented x3 GENERAL APPEARANCE: ill appearing OTHER: Quite agitated Eye: COMMON NORMALS: Equal, round and reactive pupils present and EOMs intact bilaterally GENERAL EYE: appearance normal, both eyes and all related structures PUPIL: Yes Equal, round and reactive pupils present Neck/C-Spine: COMMON NORMALS: full ROM, no lymphadenopathy, no JVD and Thyroid normal THYROID: Thyroid normal Lymph: LYMPHATIC: no lymphadenopathy noted Resp: COMMON NORMALS: normal respiratory effort, No retractions, No use of accessory muscles and clear to auscultation bilaterally AUSCULTATION: clear to auscultation bilaterally Cardio: COMMON NORMALS: regular rhythm, S1 normal heart sound present, S2 normal heart sound present and No murmurs present (Cardio) RATE: tachycardic RHYTHM: regular rhythm HEART SOUNDS: S1 normal heart sound present and S2 normal heart sound present GI: COMMON NORMALS: Normal to inspection, nondistended, normoactive bowel sounds present, Soft to palpation and non-tender Extremity: COMMON NORMALS: normal to inspection, full ROM and no pedal edema OTHER: Right intraosseous line placed into tibia Neuro: COMMON NORMALS: patient oriented x3, CN's II-XII intact bilaterally, moves all extremities and no focal motor deficits Data : 05/16/21 08:29 05/16/21 08:29 Micro: Microbiology 05/16/21 08:29 Blood Culture - Preliminary Blood SPECIMEN COLLECTED A&P Assessment and plan (1) DKA (diabetic ketoacidoses): -DKA protocol -Monitor serum BMPs, mag, Phos every 4 hours -Continue insulin drip -If potassium drops below 3.5, hold insulin drip, replace potassium -Continue normal saline with 40 mEq of KCl -If blood sugar drops below 200, switch to D5 normal saline with 40 mEq of KCl -We will hold off on bicarb, will see what next serum potassium is a risk of hypokalemia -Serial neuro exams, monitor for cerebral edema -Hopefully we can remove intraosseous line, replace with IV line peripheral -Morphine for pain -Full code -Low risk for DVT, prophylaxis not indicated Status: Acute Attestations Medical Necessity Statement*: Patient requires hospitalization for diabetic ketoacidosis, inpatient, greater than 2 minutes, ICU, insulin drip DKA Coding Level of Care Code Acute Field Sampling Technician for [facility] Diagnoses DKA (diabetic ketoacidoses) E11.10
--- NOTE | 2021-05-16 11:59 | XRR_ITS ---
PROCEDURE INFORMATION: Exam: XR Chest Exam date and time: 05/16/2021 11:59 AM Age: 26 years old Clinical indication: Other vascular access device placement or adjustment; Central line, tunnelled; Additional info: Post central line placement TECHNIQUE: Imaging protocol: XR of the chest. Views: 1 view. Total images: 1 COMPARISON: CR (CHEST, ) 05/16/2021 7:40 AM FINDINGS: Tubes, catheters and devices: A right subclavian central venous catheter is present, with its tip overlying the region of the right ventricle. Lungs: Unremarkable. No consolidation. Pleural spaces: Unremarkable. No pleural effusion. No pneumothorax. Heart/Mediastinum: Unremarkable. No cardiomegaly. Bones/joints: Unremarkable. XR/XR chest 1V portable 16005 IMPRESSION: 1. A right subclavian central venous catheter is present, with its tip overlying the region of the right ventricle. 2. No acute cardiopulmonary process.
[2021-05-16 12:09] LABS: Lactic Sepsis W/Reflex 1.6 mmol/L (0.5-2.2)
--- NOTE | 2021-05-16 12:12 | PC.NURSE ---
weaning sedation at this time no distress noted chest tube in place awakeing to possible extubate
--- NOTE | 2021-05-16 12:25 | PC.NURSE ---
Pt admitted to ICU fro ED. Central line noted in right IJ, patent. Flushes easily, blood return present and fluids infusing. IO noted in left shift. Pt lethargic but responds to questions. Pt's face is flushed, his left lower arm is flushed. He has numerous tiny scabbed areas, in differing stages of healing, across his extremeties. LEft upper arm swlooen and puffy (from previus IV that infiltrated). Pt denies tenderness.
[2021-05-16 12:50] LABS: Anion Gap 27.2 (5-19); Blood Urea Nitrogen 11 mg/dL (6-20); Calcium 7.8 mg/dL (8.5-10.5); Chloride 109 mmol/L (98-107); Creatinine Clr Calc Pharmacy 125.4677; Glomerular Filtration Rate 118.8 mL/min (90-130); Glucose 207 mg/dL (65-115); Osmolality Calculated 295 mOsm/kg (285-295); Potassium 4.2 mmol/L (3.5-5.1); Sodium 140 mmol/L (136-145)
[2021-05-16 12:55] LABS: Procalcitonin 0.66 ng/mL (0-0.5)
[2021-05-16 13:11] LABS: Carbon Dioxide 8 mmol/L (22-29)
[2021-05-16] MEDS: phosphorus 250 mg Tablet 500 MG PO (14:31)
[2021-05-16] MEDS: famotidine 20 mg/2 mL INJ IVP (14:34)
--- NOTE | 2021-05-16 14:34 | PC.NURSE ---
Mother, Tatiana Ott, called for update. No significant changes, he remains letharigc, adjustments made to insulin gtt. His last Aion gap 27.2. Last blood sugar 218dl/ml. Mother stated that his girl friend said he was sleepy/lethargic when he got home after being discharged yesterday.
[2021-05-16] MEDS: dextrose 5%-ns + KCl 40 40 MEQ/1,000 ML BAG 125 MEQ IV ×2 (15:25→22:40)
[2021-05-16] MEDS: morphine 4 mg/mL SDV 1 mL 2 MG IVP (16:26)
[2021-05-16 17:12] LABS: Anion Gap 22.3 (5-19); Blood Urea Nitrogen 9 mg/dL (6-20); Calcium 7.9 mg/dL (8.5-10.5); Carbon Dioxide 11 mmol/L (22-29); Chloride 111 mmol/L (98-107); Glomerular Filtration Rate 138.6 mL/min (90-130); Glucose 115 mg/dL (65-115); Magnesium 1.9 mg/dL (1.7-2.3); Osmolality Calculated 288 mOsm/kg (285-295); Potassium 5.3 mmol/L (3.5-5.1); Sodium 139 mmol/L (136-145)
[2021-05-16 18:44] LABS: Glucose Point of Care 115 mg/dL (70-110)
[2021-05-16 18:44] LABS: Glucose Point of Care 129 mg/dL (70-110)
[2021-05-16 18:44] LABS: Glucose Point of Care 140 mg/dL (70-110)
[2021-05-16 18:44] LABS: Glucose Point of Care 95 mg/dL (70-110)
[2021-05-16 18:44] LABS: Glucose Point of Care 104 mg/dL (70-110)
[2021-05-16 18:44] LABS: Glucose Point of Care 164 mg/dL (70-110)
--- NOTE | 2021-05-16 19:26 | PC.NURSE ---
Shift Note Frequent safety and comfort rounds continue. Orders and/or nursing care completed as indicated. Patient monitored for response to intervention and treatment(s). Education provided includes IO, checking blooding sugar, Insulin. Patient verbalizes understanding but with repeated admissions for high blood sugar it is apparent he needs reinforcement. Will continue to monitor.
[2021-05-16 19:34] LABS: Glucose Point of Care 139 mg/dL (70-110)
[2021-05-16 20:39] LABS: Glucose Point of Care 105 mg/dL (70-110)
[2021-05-16 21:01] LABS: Anion Gap 16.8 (5-19); Blood Urea Nitrogen 7 mg/dL (6-20); Calcium 7.8 mg/dL (8.5-10.5); Carbon Dioxide 15 mmol/L (22-29); Chloride 112 mmol/L (98-107); Glomerular Filtration Rate 165.5 mL/min (90-130); Glucose 109 mg/dL (65-115); Magnesium 1.8 mg/dL (1.7-2.3); Osmolality Calculated 289 mOsm/kg (285-295); Potassium 3.8 mmol/L (3.5-5.1); Sodium 140 mmol/L (136-145)
[2021-05-16 21:04] LABS: Phosphorus 0.8 mg/dL (2.5-4.5)
[2021-05-16 21:32] LABS: Glucose Point of Care 103 mg/dL (70-110)
[2021-05-16 22:23] LABS: Glucose Point of Care 218 mg/dL (70-110)
[2021-05-16 22:23] LABS: Glucose Point of Care 512 mg/dL (70-110)
[2021-05-16 22:23] LABS: Glucose Point of Care 366 mg/dL (70-110)
[2021-05-16 22:39] LABS: Glucose Point of Care 102 mg/dL (70-110)
[2021-05-17] VITALS (32 sets, daily range): BP systolic 106–153; BP diastolic 65–109; PULSE 87–125; RESP 12–21; TEMP 36.4–37; O2SAT 9–100
[2021-05-17] MEDS: famotidine 20 mg/2 mL INJ IVP (00:37)
[2021-05-17] MEDS: phosphorus 250 mg Tablet 500 MG PO (00:37)
[2021-05-17 00:56] LABS: Phosphorus 0.6 mg/dL (2.5-4.5)
[2021-05-17 01:43] LABS: Glucose Point of Care 102 mg/dL (70-110)
[2021-05-17 01:43] LABS: Glucose Point of Care 101 mg/dL (70-110)
[2021-05-17 01:43] LABS: Glucose Point of Care 162 mg/dL (70-110)
[2021-05-17 03:26] LABS: Anion Gap 18.6 (5-19); Blood Urea Nitrogen 6 mg/dL (6-20); Calcium 7.8 mg/dL (8.5-10.5); Carbon Dioxide 15 mmol/L (22-29); Chloride 109 mmol/L (98-107); Glomerular Filtration Rate 165.5 mL/min (90-130); Glucose 104 mg/dL (65-115); Magnesium 1.7 mg/dL (1.7-2.3); Osmolality Calculated 286 mOsm/kg (285-295); Potassium 3.6 mmol/L (3.5-5.1); Sodium 139 mmol/L (136-145)
[2021-05-17 04:05] LABS: Basophils % 0.4 %; Eosinophils % 0.2 %; Hematocrit 40.8 % (42.0-52.0); Hemoglobin 13.6 g/dL (11.7-16.6); Lymphocytes # 0.6 10^3/uL (0.8-4.8); Lymphocytes % 10.9 %; Mean Corpuscular HGB Conc 33.3 g/dL (30.0-36.0); Mean Corpuscular Hemoglobin 31.4 pg (28.0-34.0); Mean Corpuscular Volume 94.2 fl (80-94); Mean Platelet Volume 9.4 fL (7.4-10.4); Monocytes # 0.5 10^3/uL (0.2-0.9); Neutrophils # 4.22 10^3/uL (1.8-7.7); Neutrophils % 79.3 %; Nucleated Red Blood Cells % 0 %; Platelet Count 174 10^3/cmm (130-400); Red Blood Count 4.33 10^6/uL (4.1-5.3); Red Cell Distribution Width 12.3 % (12.1-15.1); White Blood Count 5.3 10^3/uL (4.0-10.0)
[2021-05-17 04:31] LABS: Alanine Aminotransferase 8 U/L (0-41); Albumin Level 3.6 g/dL (3.5-5.2); Alkaline Phosphatase 59 IU/L (40-130); Anion Gap 17.5 (5-19); Aspartate Amino Transferase 9 U/L (0-40); Blood Urea Nitrogen 6 mg/dL (6-20); Calcium 7.7 mg/dL (8.5-10.5); Carbon Dioxide 17 mmol/L (22-29); Chloride 110 mmol/L (98-107); Globulin 1.9 g/dL (1.3-4.6); Glomerular Filtration Rate 204.3 mL/min (90-130); Glucose 74 mg/dL (65-115); Magnesium 1.7 mg/dL (1.7-2.3); Osmolality Calculated 288 mOsm/kg (285-295); Potassium 3.5 mmol/L (3.5-5.1); Sodium 141 mmol/L (136-145); Total Bilirubin 0.6 mg/dL (0.15-1.2); Total Protein 5.5 g/dL (6.6-8.7)
[2021-05-17 05:07] LABS: Phosphorus 0.8 mg/dL (2.5-4.5)
[2021-05-17] MEDS: dextrose 5%-ns + KCl 40 40 MEQ/1,000 ML BAG 125 MEQ IV (06:39)
[2021-05-17 06:42] LABS: Glucose Point of Care 112 mg/dL (70-110)
[2021-05-17 06:42] LABS: Glucose Point of Care 107 mg/dL (70-110)
[2021-05-17 06:42] LABS: Glucose Point of Care 68 mg/dL (70-110)
[2021-05-17 06:42] LABS: Glucose Point of Care 106 mg/dL (70-110)
[2021-05-17 06:42] LABS: Glucose Point of Care 124 mg/dL (70-110)
--- NOTE | 2021-05-17 07:41 | PC.NURSE ---
Addendum entered by Josselin Whyte RN 05/17/21 07:44: Cup removed from room. Original Note: Pt requested ice chips or water this nurse stated she would contact the physician after she made her round on all her patients. While standing outside his door charting noted pt up out of bed, he had the cup left for medication pass, used it at the faucet and was drinking water.
[2021-05-17 08:20] LABS: Glucose Point of Care 127 mg/dL (70-110)
[2021-05-17 08:30] LABS: Glucose Point of Care 101 mg/dL (70-110)
[2021-05-17 09:35] LABS: Anion Gap 14.3 (5-19); Blood Urea Nitrogen 6 mg/dL (6-20); Calcium 7.5 mg/dL (8.5-10.5); Carbon Dioxide 19 mmol/L (22-29); Chloride 110 mmol/L (98-107); Glomerular Filtration Rate 204.3 mL/min (90-130); Glucose 88 mg/dL (65-115); Magnesium 1.9 mg/dL (1.7-2.3); Osmolality Calculated 287 mOsm/kg (285-295); Potassium 3.3 mmol/L (3.5-5.1); Sodium 140 mmol/L (136-145)
[2021-05-17 10:01] LABS: Phosphorus 0.6 mg/dL (2.5-4.5)
[2021-05-17 12:05] LABS: Glucose Point of Care 97 mg/dL (70-110)
[2021-05-17 12:05] LABS: Glucose Point of Care 96 mg/dL (70-110)
[2021-05-17 12:17] LABS: Glucose Point of Care 112 mg/dL (70-110)
[2021-05-17] MEDS: insulin glargine 100 units/1 mL 40 UNIT SUBCUT (13:12)
[2021-05-17] MEDS: calcium acetate 667 mg Capsule 1334 MG PO ×2 (13:15→17:26)
--- NOTE | 2021-05-17 13:30 | PC.NURSE ---
Promethazine: Pt has list as allergy but he had a bottle with at least 40 of these tablets. Discussed the possibility of him accidentally ingesting one when his blood sugar is high and he has nausea. Advised him against this and to dispose of his tablets to prevent this from occurring.
[2021-05-17 14:31] LABS: Glucose Point of Care 288 mg/dL (70-110)
--- NOTE | 2021-05-17 15:06 | P.DS_ITS ---
Discharge Providers Date of Admission: 05/16/21 09:01 Date of Discharge: May 17, 2021 Attending Provider at Admission: Randy Mckeon MD Attending Provider at Discharge: Randy Mckeon MD Primary Care Provider: MARGE Castellano Diagnoses at Discharge Discharge Diagnosis (1) DKA (diabetic ketoacidoses): Status: Acute (2) Type 1 diabetes: Status: Acute Permanent problem details: With recurrent admissions for DKA, severe Reason for Visit Reason for Visit: nausea/ vomiting/ weakness Hospital Course Hospital Course This is a 26-year-old male with a past medical history of type 1 diabetes, with a history of recurrent hospitalizations for DKA, recently discharged for DKA, who comes to [facility] due to nausea, vomiting, fatigue, malaise, as he did not supervisor opening and picking his home insulin after discharge Patient was admitted to [facility] for diabetic ketoacidosis, was managed in the ICU, clinically improved, taken off insulin drip, anion gap closed, potassium supplementation was given, mentation improved, his blood sugars was monitored over the next few hours, patient was discharged home with close follow-up with primary care provider. In addition he is to follow-up with Dr. Metz early next week. Discharged on his home Lantus 40 units twice daily, with a NovoLog sliding scale, lancets strips, potassium phosphate supplementation, was all sent to [facility] pharmacy, his mother will supervisor opening and picking the medication Physical Exam Const: COMMON NORMALS: no acute distress and patient oriented x3 HENMT: COMMON NORMALS: normocephalic HEAD & SCALP: normocephalic Resp: COMMON NORMALS: normal respiratory effort, No retractions, No use of accessory muscles and clear to auscultation bilaterally AUSCULTATION: clear to auscultation bilaterally Cardio: COMMON NORMALS: regular rate, regular rhythm, S1 normal heart sound present and S2 normal heart sound present RATE: regular rate RHYTHM: regular rhythm HEART SOUNDS: S1 normal heart sound present and S2 normal heart sound present GI: COMMON NORMALS: Normal to inspection, nondistended, normoactive bowel sounds present, Soft to palpation and non-tender PALPATION: Yes Soft to palpation Extremity: COMMON NORMALS: no pedal edema Neuro: COMMON NORMALS: patient oriented x3 Psych: COMMON NORMALS: mental status grossly normal Discharge Data Data Completed and Pending: Completed Studies During Hospitalization Category Date Time Status XR chest 1V merry ble [id number] Routine Exams 05/16/21 11:59 Completed XR chest 1V merry ble [id number] Stat Exams 05/16/21 07:26 Completed Pending at discharge Category Date Time Status Basic Metabolic P liss Stat Lab 05/17/21 14:51 Ordered Blood Culture Sta t Lab 05/16/21 11:25 Results Magnesium Stat Lab 05/17/21 14:51 Ordered Phosphorus Stat Lab 05/17/21 14:51 Ordered Labs from last 24 hours 05/17/21 05/17/21 05/17/21 14:27 11:54 10:35 WBC RBC Hgb Hct MCV MCH MCHC RDW Plt Count MPV Neut % (Auto) Lymph % (Auto) [place] % (Auto) Eos % (Auto) Baso % (Auto) Neut # (Auto) Lymph # (Auto) [place] # (Auto) Eos # (Auto) Baso # (Auto) Nucleated RBC % (a uto) Nucleated RBCs # Sodium Potassium Chloride Carbon Dioxide Anion Gap BUN Creatinine GFR Calculation Glucose POC Glucose 288 H 112 H 96 Calculated Osmolal ity Calcium Phosphorus Magnesium Total Bilirubin AST ALT Alkaline Phosphata se Total Protein Albumin Globulin 05/17/21 05/17/21 05/17/21 09:39 09:03 09:03 WBC RBC Hgb Hct MCV MCH MCHC RDW Plt Count MPV Neut % (Auto) Lymph % (Auto) [place] % (Auto) Eos % (Auto) Baso % (Auto) Neut # (Auto) Lymph # (Auto) [place] # (Auto) Eos # (Auto) Baso # (Auto) Nucleated RBC % (a uto) Nucleated RBCs # Sodium 140 Potassium 3.3 L Chloride 110 H Carbon Dioxide 19 L Anion Gap 14.3 BUN 6 Creatinine 0.5 L GFR Calculation 204.3 H Glucose 88 POC Glucose 97 Calculated Osmolal ity 287 Calcium 7.5 L Phosphorus 0.6 L* D Magnesium 1.9 Total Bilirubin AST ALT Alkaline Phosphata se Total Protein Albumin Globulin 05/17/21 05/17/21 05/17/21 08:27 07:27 06:30 WBC RBC Hgb Hct MCV MCH MCHC RDW Plt Count MPV Neut % (Auto) Lymph % (Auto) [place] % (Auto) Eos % (Auto) Baso % (Auto) Neut # (Auto) Lymph # (Auto) [place] # (Auto) Eos # (Auto) Baso # (Auto) Nucleated RBC % (a uto) Nucleated RBCs # Sodium Potassium Chloride Carbon Dioxide Anion Gap BUN Creatinine GFR Calculation Glucose POC Glucose 101 127 H 124 H Calculated Osmolal ity Calcium Phosphorus Magnesium Total Bilirubin AST ALT Alkaline Phosphata se Total Protein Albumin Globulin 05/17/21 05/17/21 05/17/21 05:35 04:33 03:45 WBC RBC Hgb Hct MCV MCH MCHC RDW Plt Count MPV Neut % (Auto) Lymph % (Auto) [place] % (Auto) Eos % (Auto) Baso % (Auto) Neut # (Auto) Lymph # (Auto) [place] # (Auto) Eos # (Auto) Baso # (Auto) Nucleated RBC % (a uto) Nucleated RBCs # Sodium 141 Potassium 3.5 Chloride 110 H Carbon Dioxide 17 L Anion Gap 17.5 BUN 6 Creatinine 0.5 L GFR Calculation 204.3 H Glucose 74 POC Glucose 112 H 107 Calculated Osmolal ity 288 Calcium 7.7 L Phosphorus Magnesium 1.7 Total Bilirubin 0.6 AST 9 ALT 8 Alkaline Phosphata se 59 Total Protein 5.5 L D Albumin 3.6 Globulin 1.9 05/17/21 05/17/21 05/17/21 03:45 03:45 03:45 WBC 5.3 RBC 4.33 Hgb 13.6 Hct 40.8 L MCV 94.2 H MCH 31.4 MCHC 33.3 RDW 12.3 Plt Count 174 D MPV 9.4 Neut % (Auto) 79.3 Lymph % (Auto) 10.9 [place] % (Auto) 9.0 Eos % (Auto) 0.2 Baso % (Auto) 0.4 Neut # (Auto) 4.22 Lymph # (Auto) 0.6 L [place] # (Auto) 0.5 Eos # (Auto) 0.0 Baso # (Auto) 0.0 Nucleated RBC % (a uto) 0 Nucleated RBCs # 0.0 Sodium Cancelled Potassium Cancelled Chloride Cancelled Carbon Dioxide Cancelled Anion Gap Cancelled BUN Cancelled Creatinine Cancelled GFR Calculation Cancelled Glucose Cancelled POC Glucose Calculated Osmolal ity Cancelled Calcium Cancelled Phosphorus 0.8 L* D Magnesium Cancelled Total Bilirubin AST ALT Alkaline Phosphata se Total Protein Albumin Globulin 05/17/21 05/17/21 05/17/21 03:26 02:28 01:28 WBC RBC Hgb Hct MCV MCH MCHC RDW Plt Count MPV Neut % (Auto) Lymph % (Auto) [place] % (Auto) Eos % (Auto) Baso % (Auto) Neut # (Auto) Lymph # (Auto) [place] # (Auto) Eos # (Auto) Baso # (Auto) Nucleated RBC % (a uto) Nucleated RBCs # Sodium Potassium Chloride Carbon Dioxide Anion Gap BUN Creatinine GFR Calculation Glucose POC Glucose 68 L 106 162 H Calculated Osmolal ity Calcium Phosphorus Magnesium Total Bilirubin AST ALT Alkaline Phosphata se Total Protein Albumin Globulin 05/17/21 05/17/21 05/17/21 00:30 00:25 00:25 WBC RBC Hgb Hct MCV MCH MCHC RDW Plt Count MPV Neut % (Auto) Lymph % (Auto) [place] % (Auto) Eos % (Auto) Baso % (Auto) Neut # (Auto) Lymph # (Auto) [place] # (Auto) Eos # (Auto) Baso # (Auto) Nucleated RBC % (a uto) Nucleated RBCs # Sodium 139 Potassium 3.6 Chloride 109 H Carbon Dioxide 15 L Anion Gap 18.6 BUN 6 Creatinine 0.6 L GFR Calculation 165.5 H Glucose 104 POC Glucose 102 Calculated Osmolal ity 286 Calcium 7.8 L Phosphorus 0.6 L* D Magnesium 1.7 Total Bilirubin AST ALT Alkaline Phosphata se Total Protein Albumin Globulin 05/16/21 05/16/21 05/16/21 23:27 22:35 21:29 WBC RBC Hgb Hct MCV MCH MCHC RDW Plt Count MPV Neut % (Auto) Lymph % (Auto) [place] % (Auto) Eos % (Auto) Baso % (Auto) Neut # (Auto) Lymph # (Auto) [place] # (Auto) Eos # (Auto) Baso # (Auto) Nucleated RBC % (a uto) Nucleated RBCs # Sodium Potassium Chloride Carbon Dioxide Anion Gap BUN Creatinine GFR Calculation Glucose POC Glucose 101 102 103 Calculated Osmolal ity Calcium Phosphorus Magnesium Total Bilirubin AST ALT Alkaline Phosphata se Total Protein Albumin Globulin 05/16/21 05/16/21 05/16/21 20:36 20:20 20:20 WBC RBC Hgb Hct MCV MCH MCHC RDW Plt Count MPV Neut % (Auto) Lymph % (Auto) [place] % (Auto) Eos % (Auto) Baso % (Auto) Neut # (Auto) Lymph # (Auto) [place] # (Auto) Eos # (Auto) Baso # (Auto) Nucleated RBC % (a uto) Nucleated RBCs # Sodium 140 Potassium 3.8 Chloride 112 H Carbon Dioxide 15 L Anion Gap 16.8 BUN 7 Creatinine 0.6 L GFR Calculation 165.5 H Glucose 109 POC Glucose 105 Calculated Osmolal ity 289 Calcium 7.8 L Phosphorus 0.8 L* Magnesium 1.8 Total Bilirubin AST ALT Alkaline Phosphata se Total Protein Albumin Globulin 05/16/21 05/16/21 05/16/21 19:30 18:40 17:42 WBC RBC Hgb Hct MCV MCH MCHC RDW Plt Count MPV Neut % (Auto) Lymph % (Auto) [place] % (Auto) Eos % (Auto) Baso % (Auto) Neut # (Auto) Lymph # (Auto) [place] # (Auto) Eos # (Auto) Baso # (Auto) Nucleated RBC % (a uto) Nucleated RBCs # Sodium Potassium Chloride Carbon Dioxide Anion Gap BUN Creatinine GFR Calculation Glucose POC Glucose 139 H 129 H 140 H Calculated Osmolal ity Calcium Phosphorus Magnesium Total Bilirubin AST ALT Alkaline Phosphata se Total Protein Albumin Globulin 05/16/21 05/16/21 05/16/21 16:19 16:18 16:18 WBC RBC Hgb Hct MCV MCH MCHC RDW Plt Count MPV Neut % (Auto) Lymph % (Auto) [place] % (Auto) Eos % (Auto) Baso % (Auto) Neut # (Auto) Lymph # (Auto) [place] # (Auto) Eos # (Auto) Baso # (Auto) Nucleated RBC % (a uto) Nucleated RBCs # Sodium 139 Potassium 5.3 H Chloride 111 H Carbon Dioxide 11 L Anion Gap 22.3 H BUN 9 Creatinine 0.7 GFR Calculation 138.6 H Glucose 115 POC Glucose 95 Calculated Osmolal ity 288 Calcium 7.9 L Phosphorus 1.0 L Magnesium 1.9 Total Bilirubin AST ALT Alkaline Phosphata se Total Protein Albumin Globulin 05/16/21 05/16/21 05/16/21 15:28 14:37 13:35 WBC RBC Hgb Hct MCV MCH MCHC RDW Plt Count MPV Neut % (Auto) Lymph % (Auto) [place] % (Auto) Eos % (Auto) Baso % (Auto) Neut # (Auto) Lymph # (Auto) [place] # (Auto) Eos # (Auto) Baso # (Auto) Nucleated RBC % (a uto) Nucleated RBCs # Sodium Potassium Chloride Carbon Dioxide Anion Gap BUN Creatinine GFR Calculation Glucose POC Glucose 104 115 H 164 H Calculated Osmolal ity Calcium Phosphorus Magnesium Total Bilirubin AST ALT Alkaline Phosphata se Total Protein Albumin Globulin 05/16/21 05/16/21 05/16/21 12:23 11:04 09:36 WBC RBC Hgb Hct MCV MCH MCHC RDW Plt Count MPV Neut % (Auto) Lymph % (Auto) [place] % (Auto) Eos % (Auto) Baso % (Auto) Neut # (Auto) Lymph # (Auto) [place] # (Auto) Eos # (Auto) Baso # (Auto) Nucleated RBC % (a uto) Nucleated RBCs # Sodium Potassium Chloride Carbon Dioxide Anion Gap BUN Creatinine GFR Calculation Glucose POC Glucose 218 H 366 H 512 H* Calculated Osmolal ity Calcium Phosphorus Magnesium Total Bilirubin AST ALT Alkaline Phosphata se Total Protein Albumin Globulin Vitals: Last Vital Signs Temp 98.2 F 05/17/21 07:30 Pulse 89 05/17/21 14:00 Resp 19 H 05/17/21 12:00 BP 122/82 05/17/21 12:00 Pulse Ox 9 L 05/17/21 11:00 Discharge Plan Discharge Patient Disposition: Home Condition: Stable Prescriptions: New Lantus Solostar U-100 Insulin 100 unit/mL (3 mL) insulin pen 40 unit SUBCUT BID 30 Days Qty: 24 RF: 3 Novolog Flexpen U-100 Insulin 100 unit/mL (3 mL) insulin pen See Rx Instructions .ROUTE .COMPLEX Qty: 15 RF: 3 (DME) lancets Misc See Rx Instructions .Route Qty: 200 RF: 0 (DME) strips See Rx Instructions .Route .MEDSUPPLY Qty: 1 RF: 0 (DME) strips See Rx Instructions .Route .MEDSUPPLY Qty: 200 RF: 3 calcium acetate [Calphron] 667 mg Tablet 1,334 mg PO TIDWM 2 Days Qty: 4 RF: 0 potassium chloride [Klor-Con M20] 20 mEq tablet,ER particles/crystals 20 meq PO BID 2 Days Qty: 4 RF: 0 Continued (DME) Dexcom G6 Scientific Database Curator Misc See Rx Instructions .ROUTE .MEDSUPPLY Qty: 1 RF: 0 (DME) Dexcom G6 Sensor Device See Rx Instructions .ROUTE .MEDSUPPLY Qty: 3 RF: 3 (DME) Dexcom G6 Transmitter Device See Rx Instructions .ROUTE .MEDSUPPLY Qty: 3 RF: 3 (DME) blood sugar diagnostic Strip See Rx Instructions .Route Qty: 100 RF: 0 (DME) Blood Glucose Test Strip See Rx Instructions .Route Qty: 100 RF: 0 (DME) blood-glucose meter [Blood Glucose Monitoring] Kit See Rx Instructions .Route Qty: 1 RF: 0 Discontinued insulin aspart U-100 [Novolog Flexpen U-100 Insulin] 100 unit/mL (3 mL) insulin pen See Rx Instructions unit .ROUTE .COMPLEX RF: 0 famotidine 20 mg tablet 20 mg PO BID RF: 0 Lantus U-100 Insulin 100 unit/mL solution 40 unit SUBCUT BID 30 Days Qty: 1 RF: 3 Referrals: Earlene Titus FNP-C [Primary Care Provider] - Evelin Metz MD [Physician] - 1 week Discharge Diet: Diabetic Discharge Activity: Resume usual activity Patient Instructions: Opioid Safety Activity Restrictions/Additional Instructions: -Please record blood sugars 3 times daily, record them in a log, bring to primary care physician's office, bring to Dr. Metz's office -Continue Lantus 40 units subcut twice daily -Insulin sliding scale as provided as below Fingerstick Blood Glucose Insulin Units 141-180 mg/dl 6 units/SQ 181-220 mg/dl 8 units/SQ 221-260 mg/dl 10 units/SQ 261-300 mg/dl 12 units/SQ 301-350 mg/dl 14 units/SQ 351-400 mg/dl 16 units/SQ greater than 400 mg/dl 18 units/SQ -If blood sugar in the 500, come back to emergency room -If blood sugar less than 60, drink or juice or eat hard and go to the emergency room Discharge Attestations Time Spent in Discharge Care*: less than 30 min Status at Discharge: Cognitive status at discharge: cognitively intact , Behavioral status at discharge: cooperative , Quality Metrics Clinical Quality Measures During this hospital stay, did patient experience: None Coding Level of Care Code Acute Chg FW DC note Exam Detailed Diagnoses DKA (diabetic ketoacidoses) E11.10 Type 1 diabetes E10.9
[2021-05-17 15:57] LABS: Anion Gap 14.4 (5-19); Blood Urea Nitrogen 4 mg/dL (6-20); Calcium 7.6 mg/dL (8.5-10.5); Carbon Dioxide 21 mmol/L (22-29); Chloride 99 mmol/L (98-107); Glomerular Filtration Rate 165.5 mL/min (90-130); Glucose 293 mg/dL (65-115); Magnesium 1.4 mg/dL (1.7-2.3); Osmolality Calculated 280 mOsm/kg (285-295); Phosphorus 1.2 mg/dL (2.5-4.5); Potassium 3.4 mmol/L (3.5-5.1); Sodium 131 mmol/L (136-145)
[2021-05-17] MEDS: magnesium sulfate premix 2 GM/50 ML PIGGYBACK IV (17:24)
[2021-05-17] MEDS: potassium chloride ER 20 mEq Tablet 40 MEQ PO (17:26)
[2021-05-17 17:39] LABS: Glucose Point of Care 262 mg/dL (70-110)
[2021-05-17 19:01] LABS: Glucose Point of Care 227 mg/dL (70-110)
--- NOTE | 2021-05-17 19:05 | PC.NURSE ---
Shift Note: Pt off insulin gtt, changed to sliding scale and Lantus. He has been anxious to go home today. Electrolytes off and replacements ordered and administer. putting in discharge orders at end of shift. Frequent safety and comfort rounds continue. Orders and/or nursing care completed as indicated. Patient monitored for response to intervention and treatment(s). Education provided includes consequences of continued high blood sugar episodes, importance of monitoring and treating blood sugar . Patient verbalized understanding and stated he would do better . Will continue to monitor.
--- NOTE | 2021-05-17 19:40 | PC.NURSE ---
Pt Discharged Patient discharged home. Ambulated from facility, patient A & O x4 and VSS. Central line discontinued, catheter tip intact dressing in place over site. Mother came to pickup patient, all patient belongings were sent home with patient. New prescriptions discussed with patient and sent to preferred pharmacy. Discharge packet and teaching materials given to patient.
--- NOTE | 2021-05-18 09:36 | PC.SOCIAL ---
discharge follow up call made. Recruitment Assistant gave patient is follow up dates and times. pt picked up all medications from the pharmacy and is taking as prescribed.
--- NOTE | 2021-05-22 07:53 | PC.RESP ---
SMOKING CESSATION INFORMATION SENT TO PATIENT.
== END 2021-05-17 19:35 | disposition home or self-care (01) | DRG 639 ==
LOC: ER 09:23 → ICU 11:13
PROVIDERS: Admitting Provider Family Medicine; Emergency Provider Family Medicine; PCP Nurse Practitioner Family; Visit Provider Family Medicine
DX: E10.10 Type 1 diabetes mellitus with ketoacidosis without coma (principal); K21.9 Gastro-esophageal reflux disease without esophagitis; F12.90 Cannabis use, unspecified, uncomplicated; F15.10 Other stimulant abuse, uncomplicated; F17.210 Nicotine dependence, cigarettes, uncomplicated
CPT/HCPCS: 36416; 36592; 36600; 71045; 80048; 80051; 80053; 81003; 82009; 82330; 82805; 82962; 83605; 83690; 83735; 84100; 84145; 85025; 87040; 94664; 96365; 96366; 96367; 96372; 96375; 96376; 99285; C1751; J1815 ×2; J2060; J2270; J2405; J3475; J3480; J3490; J7030; J7050

== ENCOUNTER 2021-05-29 22:02 | Inpatient (IN) | payer MEDICARE, MEDICAID, SELFPAY ==
[2021-05-29 22:03] VITALS: PULSE 120; RESP 18; TEMP 36.7; O2SAT 99; BMI 26.6
[2021-05-29 22:13] LABS: Glucose Point of Care 227 mg/dL (70-110)
--- NOTE | 2021-05-29 22:36 | ECG_ITS ---
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 Measurements Intervals [place] Rate: 120 P: 80 WI: 110 QRS: 80 QRSD: 77 T: 51 QT: 283 QTc: 401 Interpretive Statements SINUS TACHYCARDIA WITH SHORT WI INTERVAL Compared to ECG 05/14/2021 12:18:00 Short WI interval now present Electronically Signed On 05-30-2021 21:11:36 CDT by Real Cerna M.D. [email or web address]
--- NOTE | 2021-05-29 22:37 | ED_ITS ---
HPI - Altered Mental Status General: Chief Complaint: Altered Mental Status Stated Complaint: DKA Time Seen by Provider: 05/29/21 22:10 History of Present Illness: HPI narrative: 26-year-old male with a history of type 1 diabetes presenting with lethargy and alteration in mental status. His sugar was evidently high at home on his monitor. His mother gave him 20 units of insulin, and his sugar is now 229. He is thrown up multiple times today he says. He has had multiple admissions for DKA. complaint: confusion and decreased responsiveness Onset (ago): hour(s) Timing confirmed by: family member Severity: moderate Context: other Associated symptoms: Deny auditory hallucinations or delusions Treatments prior to arrival: other Review of Systems Const: Denies: fever(s) Card: Denies: chest pain Resp: Denies: dyspnea, productive cough or non-productive cough GI: Reports: nausea and vomiting; Denies: abdominal pain Psych: Denies: auditory hallucinations PFS ED PFSH: Medical History DKA (diabetic ketoacidoses) GERD (gastroesophageal reflux disease) Hyperglycemia Long-term insulin use Marijuana use Methamphetamine abuse Nausea & vomiting Noncompliance with diabetes treatment Pancreatitis Type 1 diabetes With recurrent admissions for DKA, severe Uncontrolled type 1 diabetes mellitus Surgical History No pertinent past surgical history Family History Other Diabetes Social History Smoking and tobacco status: current every day smoker Alcohol intake: never Lives independently: Yes Household members: significant other Marital status: Single Current occupational status: unemployed Physical Exam Const: EXAM LIMITATIONS: altered mental status GENERAL APPEARANCE: cooperative, lethargic and ill appearing ORIENTATION/CONSCIOUSNESS: Yes awake, Yes oriented to person, Yes oriented to place and Yes lethargic; not oriented to time HENMT: COMMON NORMALS: normocephalic HEAD & SCALP: normocephalic Chest: COMMONS NORMALS: normal inspection of the chest Resp: COMMON NORMALS: normal respiratory effort, No use of accessory muscles and clear to auscultation bilaterally AUSCULTATION: clear to auscultation bilaterally Cardio: COMMON NORMALS: regular rhythm RATE: tachycardic RHYTHM: regular rhythm GI: COMMON NORMALS: Soft to palpation INSPECTION: Yes normal to inspection and No abdominal distension PALPATION: Yes Soft to palpation and Yes Tenderness to palpation present (GI) (Mild diffuse) Neuro: SENSORIUM/ORIENTATION: Yes oriented to person, Yes oriented to place, No oriented to time and Yes lethargic Psych: THOUGHT CONTENT: No delusions Course Consultations: Consultation #1: michelle Time: 23:39 Vital Signs: Vital signs: Vital Signs Temperature 98.3 F 05/30/21 00:30 Pulse Rate 109 H 05/30/21 01:05 Respiratory Rate 16 05/30/21 01:05 Blood Pressure 111/76 05/30/21 01:05 Pulse Oximetry 97 05/30/21 01:05 MDM - Altered Mental Status MDM Narrative: Medical decision making narrative: 26-year-old male with a history of type 1 diabetes, poorly controlled, and DKA. He presents lethargic, vomiting, with an anion gap of 34.5. He is hemoconcentrated with a hemoglobin of nineteen. His potassium is 5.5 he is receiving 2 L of fluid in the emergency department. His glucose is down to 219 on his serum after his mother had given him 20 units of NovoLog at home. He will go to the ICU for continued fluid support, and if gap continues to widen, insulin drip with D5. Lab Data: Labs: Lab Results 05/29/21 05/29/21 05/29/21 22:09 22:19 22:19 WBC 15.7 10^3/uL H 10 ^3/uL (4.0-10.0) RBC 6.24 10^6/uL H 10 ^6/uL (4.1-5.3) Hgb 19.0 g/dL H g/dL (11.7-16.6) Hct 56.0 % H % (42.0-52.0) MCV 89.7 fl fl (80-94) MCH 30.4 pg pg (28.0-34.0) MCHC 33.9 g/dL g/dL (30.0-36.0) RDW 12.1 % % (12.1-15.1) Plt Count 419 10^3/cmm H 10 ^3/cmm (130-400) MPV 9.7 fL fL (7.4-10.4) Neut % (Auto) 93.1 % % Lymph % (Auto) 3.9 % % [place] % (Auto) 2.0 % % Eos % (Auto) 0.0 % % Baso % (Auto) 0.3 % % Neut # (Auto) 14.64 10^3/uL H 1 0^3/uL (1.8-7.7) Lymph # (Auto) 0.6 10^3/uL L 10^ 3/uL (0.8-4.8) [place] # (Auto) 0.3 10^3/uL 10^3/ uL (0.2-0.9) Eos # (Auto) 0.0 10^3/uL 10^3/ uL (0.0-0.8) Baso # (Auto) 0.0 10^3/uL 10^3/ uL (0.0-0.1) Nucleated RBC % (a uto) 0 % % Nucleated RBCs # 0.0 /100WBC /100W BC Specimen Type Sample Site ABG pH ABG pCO2 ABG pO2 ABG HCO3 ABG Base Excess Hasmukh Test Hematocrit O2 Delivery Device FiO2 [employer] Coach ID Sodium 141 mmol/L mmol/L (136-145) Potassium 5.5 mmol/L H mmol /L (3.5-5.1) Chloride 101 mmol/L mmol/L (98-107) Carbon Dioxide 11 mmol/L L mmol/ L (22-29) Anion Gap 34.5 H (5-19) BUN 33 mg/dL H mg/dL (6-20) Creatinine 1.1 mg/dL mg/dL (0.7-1.2) GFR Calculation 82.2 mL/min L mL/ min (90-130) Glucose 213 mg/dL H mg/dL (65-115) POC Glucose 227 mg/dL H mg/dL (70-110) Calculated Osmolal ity 306 mOsm/kg H mOs m/kg (285-295) Calcium 10.2 mg/dL mg/dL (8.5-10.5) Magnesium 2.9 mg/dL H mg/dL (1.7-2.3) Total Bilirubin 0.3 mg/dL mg/dL (0.15-1.2) AST 15 U/L U/L (0-40) ALT 20 U/L U/L (0-41) Alkaline Phosphata se 86 IU/L IU/L (40-130) Creatine Kinase 57 U/L U/L (39-308) Total Protein 9.1 g/dL H g/dL (6.6-8.7) Albumin 5.2 g/dL g/dL (3.5-5.2) Globulin 3.9 g/dL g/dL (1.3-4.6) Ethyl Alcohol < 10 mg/dL mg/dL (0-10) Serum Ketones 05/29/21 05/29/21 22:45 23:02 WBC RBC Hgb Hct MCV MCH MCHC RDW Plt Count MPV Neut % (Auto) Lymph % (Auto) [place] % (Auto) Eos % (Auto) Baso % (Auto) Neut # (Auto) Lymph # (Auto) [place] # (Auto) Eos # (Auto) Baso # (Auto) Nucleated RBC % (a uto) Nucleated RBCs # Specimen Type Arterial Sample Site Radial, right ABG pH 7.22 L (7.35-7.45) ABG pCO2 25.4 mmHg L mmHg (35-45) ABG pO2 103.0 mmHg H mmHg (80.0-100.0) ABG HCO3 10.5 mmol/L L mmo l/L (22-26) ABG Base Excess -15.1 mmol/L L mm ol/L (-2.0-2.0) Hasmukh Test Pos Hematocrit 57.4 % H % (42-52) O2 Delivery Device Nc FiO2 21.0 % % [employer] Coach ID [email or web address] Sodium Potassium Chloride Carbon Dioxide Anion Gap BUN Creatinine GFR Calculation Glucose POC Glucose Calculated Osmolal ity Calcium Magnesium Total Bilirubin AST ALT Alkaline Phosphata se Creatine Kinase Total Protein Albumin Globulin Ethyl Alcohol Serum Ketones Positive H (Negative) Discharge Plan Discharge Patient Disposition: Admitted As Inpatient Admit Provider: Xiomara Arevalo Clinical Impression: Diabetic keto-acidosis Qualifiers: Diabetes mellitus type: type 1 Diabetes mellitus complication detail: without coma Qualified Code(s): E10.10 - Type 1 diabetes mellitus with ketoacidosis without coma Condition: Serious Coding Level of Care Code ED [employer] Equipment Repairer for [facility] Exam Detailed
[2021-05-29 22:42] LABS: Basophils % 0.3 %; Lymphocytes # 0.6 10^3/uL (0.8-4.8); Lymphocytes % 3.9 %; Mean Corpuscular HGB Conc 33.9 g/dL (30.0-36.0); Mean Corpuscular Hemoglobin 30.4 pg (28.0-34.0); Mean Corpuscular Volume 89.7 fl (80-94); Mean Platelet Volume 9.7 fL (7.4-10.4); Monocytes # 0.3 10^3/uL (0.2-0.9); Neutrophils # 14.64 10^3/uL (1.8-7.7); Neutrophils % 93.1 %; Nucleated Red Blood Cells % 0 %; Platelet Count 419 10^3/cmm (130-400); Red Blood Count 6.24 10^6/uL (4.1-5.3); Red Cell Distribution Width 12.1 % (12.1-15.1); White Blood Count 15.7 10^3/uL (4.0-10.0)
[2021-05-29 22:56] LABS: ABG PCO2 25.4 mmHg (35-45); ABG PH Result 7.22 (7.35-7.45); Arterial Blood Gas Hematocrit 57.4 % (42-52); Base Excess ABG -15.1 mmol/L (-2.0-2.0); Blood Gas Allen Test Pos; Blood Gas Sample Type Arterial; HCO3 ABG 10.5 mmol/L (22-26)
[2021-05-29 22:58] LABS: Blood Gas Sample Site Radial, right; Oxygen Device NC
[2021-05-29 23:04] LABS: Alanine Aminotransferase 20 U/L (0-41); Albumin Level 5.2 g/dL (3.5-5.2); Alkaline Phosphatase 86 IU/L (40-130); Aspartate Amino Transferase 15 U/L (0-40); Blood Urea Nitrogen 33 mg/dL (6-20); Calcium 10.2 mg/dL (8.5-10.5); Carbon Dioxide 11 mmol/L (22-29); Chloride 101 mmol/L (98-107); Creatine Phosphokinase 57 U/L (39-308); Globulin 3.9 g/dL (1.3-4.6); Glomerular Filtration Rate 82.2 mL/min (90-130); Glucose 213 mg/dL (65-115); Magnesium 2.9 mg/dL (1.7-2.3); Osmolality Calculated 306 mOsm/kg (285-295); Sodium 141 mmol/L (136-145); Total Bilirubin 0.3 mg/dL (0.15-1.2); Total Protein 9.1 g/dL (6.6-8.7)
[2021-05-29 23:08] LABS: Alcohol Level < 10 mg/dL (0-10)
[2021-05-29 23:09] LABS: Anion Gap 34.5 (5-19); Potassium 5.5 mmol/L (3.5-5.1)
[2021-05-29] MEDS: sodium chloride 0.9% 1,000 ML 999 ML IV (23:14)
[2021-05-29 23:16] VITALS: PULSE 104; O2SAT 100
[2021-05-29 23:19] LABS: Ketone (Acetest) Serum Positive (Negative)
[2021-05-30] VITALS (60 sets, daily range): BP systolic 101–150; BP diastolic 62–105; PULSE 16–162; RESP 4–21; TEMP 36.6–36.8; O2SAT 93–100; BMI 22.1
[2021-05-30] MEDS: sodium chloride 0.9% 1,000 ML 999 ML IV (00:02)
--- NOTE | 2021-05-30 00:07 | P.HP_ITS ---
Providers/Chief Complaint Admitting Physician: Xiomara Arevalo MD Primary Care Provider: MARGE Castellano Chief Complaint: DKA History of Present Illness Salvatore Ott is a 26 year old male with multiple hospital admissions for DKA, presents today with chief complaints of weakness lethargy nausea and vomiting. Labs consistent with DKA with elevated blood sugar, took 20 units of NovoLog just prior to admission to the hospital, ketones positive, high anion gap metabolic acidosis. Uncertain if he had correctly been taking his insulin over the last 24 hours. Review of Systems General: Reports: 10 or more systems reviewed and unremarkable except in HPI and below Const: Denies: fever(s), chills or body aches Eyes: Denies: change in vision, blurry vision or photophobia ENMT: Reports: hoarseness; Denies: throat pain, enlarged tonsils, odynophagia or nasal congestion Card: Denies: chest pain, palpitations, irregular heart rhythm, edema, swelling of feet/ankles, lightheadedness, pre-syncope, dyspnea on exertion or orthopnea Resp: Denies: dyspnea, productive cough, non-productive cough, wheezing, stridor, pain on inspiration, change in phlegm color, hemoptysis or chest congestion GI: Denies: abdominal pain, nausea, vomiting, hematemesis, coffee ground emesis, dysphagia, heartburn, diarrhea, constipation, GI cramping, change in stool character, hematochezia or melena : Denies: flank pain, dysuria, urinary frequency, urinary urgency, urinary hesitancy or hematuria Musc: Denies: neck pain, back pain, extremity pain, joint swelling, joint warmth or deformity Neuro: Denies: headache(s), numbness in extremities, weakness in extremities, sensory changes, difficulty walking, frequent falls, dizziness, vertigo, behavioral changes, Slurred speech present or seizure-like activity Psych: Denies: anxiety, depression, suicidal ideation or homicidal ideation Endo: Denies: polyuria, polydipsia, tired all the time, cold intolerance or hot flashes Garett/Lymph: Denies: easy bruising or easy bleeding Medications/Allergies Home Medications Medication Instructions Recorded Confirmed Last Taken Type blood-glucose meter,continuous #1 ea 11/26/20 05/16/21 Unknown Rx blood-glucose sensor #3 ea 11/26/20 05/16/21 Unknown Rx blood-glucose transmitter #3 ea 11/26/20 05/16/21 Unknown Rx Blood Glucose Test #100 ea 03/20/21 05/16/21 Unknown Rx blood sugar diagnostic #100 ea 03/20/21 05/16/21 Unknown Rx blood-glucose meter [Blood Glucose #1 ea 03/20/21 05/16/21 Unknown Rx Monitoring] insulin aspart U-100 [Novolog See Rx Instructions .ROUTE 05/17/21 Unknown Rx Flexpen U-100 Insulin] .COMPLEX #15 ml insulin glargine [Lantus Solostar 40 unit SUBCUT BID 30 Days #24 ml 05/17/21 Unknown Rx U-100 Insulin] lancets #200 ea 05/17/21 Unknown Rx lancets #200 ea 05/17/21 Unknown Rx strips #1 ea 05/17/21 Unknown Rx strips #200 ea 05/17/21 Unknown Rx Allergies Allergy/AdvReac Type Severity Reaction Status Date / Time promethazine [From Phenergan] Allergy Unknown Verified 05/14/21 11:34 PFSH Acute PFSH: Medical History DKA (diabetic ketoacidoses) GERD (gastroesophageal reflux disease) Hyperglycemia Long-term insulin use Marijuana use Methamphetamine abuse Nausea & vomiting Noncompliance with diabetes treatment Pancreatitis Type 1 diabetes With recurrent admissions for DKA, severe Uncontrolled type 1 diabetes mellitus Surgical History No pertinent past surgical history Family History Other Diabetes Social History Smoking and tobacco status: current every day smoker Alcohol intake: never Lives independently: Yes Household members: significant other Marital status: Single Current occupational status: unemployed Vitals/I&O/Wt Last Vital Signs Temp 98.0 F 05/29/21 22:03 Pulse 104 H 05/29/21 23:16 Resp 18 05/29/21 22:03 Pulse Ox 100 05/29/21 23:16 05/29/21 05/29/21 05/30/21 14:59 22:59 06:59 Intake Total 799.2 / 799.2 Balance 799.2 / 799.2 Weight last 48 hrs Weight 72.575 kg Physical Exam Narrative: EXAM NARRATIVE: General: Lethargic, dehydrated, wakes up to calling name HEENT: PERRLA, pupils bilaterally equal and reactive, pallors not present Chest: Normal vesicular breath sounds, no added sounds, equal good air entry bilaterally CVS: S1-S2 regular, no murmurs, no tachycardia, no gallops, no rubs Abdomen: Soft, nontender, no organomegaly, bowel sounds present Neuro: No focal deficits, no facial deformity, AO x3, power 5/5 in all limbs Data : 05/29/21 22:19 05/30/21 02:10 Other Labs: Laboratory Results WBC 15.7 10^3/uL (4.0-10.0) H 05/29/21 22:19 RBC 6.24 10^6/uL (4.1-5.3) H 05/29/21 22:19 Hgb 19.0 g/dL (11.7-16.6) H 05/29/21 22:19 Hct 56.0 % (42.0-52.0) H 05/29/21 22:19 MCV 89.7 fl (80-94) 05/29/21 22:19 MCH 30.4 pg (28.0-34.0) 05/29/21 22:19 MCHC 33.9 g/dL (30.0-36.0) 05/29/21 22:19 RDW 12.1 % (12.1-15.1) 05/29/21 22:19 Plt Count 419 10^3/cmm (130-400) H 05/29/21 22:19 MPV 9.7 fL (7.4-10.4) 05/29/21 22:19 Neut % (Auto) 93.1 % 05/29/21 22:19 Lymph % (Auto) 3.9 % 05/29/21 22:19 [place] % (Auto) 2.0 % 05/29/21 22:19 Eos % (Auto) 0.0 % 05/29/21 22:19 Baso % (Auto) 0.3 % 05/29/21 22:19 Neut # (Auto) 14.64 10^3/uL (1.8-7.7) H 05/29/21 22:19 Lymph # (Auto) 0.6 10^3/uL (0.8-4.8) L 05/29/21 22:19 [place] # (Auto) 0.3 10^3/uL (0.2-0.9) 05/29/21 22:19 Eos # (Auto) 0.0 10^3/uL (0.0-0.8) 05/29/21 22:19 Baso # (Auto) 0.0 10^3/uL (0.0-0.1) 05/29/21 22:19 Nucleated RBC % (auto) 0 % 05/29/21 22:19 Nucleated RBCs # 0.0 /100WBC 05/29/21 22:19 Specimen Type Arterial 05/29/21 22:45 Sample Site Radial, right 05/29/21 22:45 ABG pH 7.22 (7.35-7.45) L 05/29/21 22:45 ABG pCO2 25.4 mmHg (35-45) L 05/29/21 22:45 ABG pO2 103.0 mmHg (80.0-100.0) H 05/29/21 22:45 ABG HCO3 10.5 mmol/L (22-26) L 05/29/21 22:45 ABG Base Excess -15.1 mmol/L (-2.0-2.0) L 05/29/21 22:45 Hasmukh Test Pos 05/29/21 22:45 Hematocrit 57.4 % (42-52) H 05/29/21 22:45 O2 Delivery Device Nc 05/29/21 22:45 FiO2 21.0 % 05/29/21 22:45 [employer] ID [email or web address] 05/29/21 22:45 Sodium 140 mmol/L (136-145) 05/30/21 02:10 Potassium 4.5 mmol/L (3.5-5.1) 05/30/21 02:10 Chloride 108 mmol/L (98-107) H 05/30/21 02:10 Carbon Dioxide 16 mmol/L (22-29) L 05/30/21 02:10 Anion Gap 20.5 (5-19) H 05/30/21 02:10 BUN 23 mg/dL (6-20) H 05/30/21 02:10 Creatinine 1.0 mg/dL (0.7-1.2) 05/30/21 02:10 GFR Calculation 91.8 mL/min (90-130) 05/30/21 02:10 Glucose 154 mg/dL (65-115) H 05/30/21 02:10 POC Glucose 135 mg/dL (70-110) H 05/30/21 03:56 Calculated Osmolality 297 mOsm/kg (285-295) H 05/30/21 02:10 Calcium 8.3 mg/dL (8.5-10.5) L 05/30/21 02:10 Magnesium 2.9 mg/dL (1.7-2.3) H 05/29/21 22:19 Total Bilirubin 0.2 mg/dL (0.15-1.2) 05/30/21 02:10 AST 10 U/L (0-40) 05/30/21 02:10 ALT 14 U/L (0-41) 05/30/21 02:10 Alkaline Phosphatase 60 IU/L (40-130) 05/30/21 02:10 Creatine Kinase 57 U/L (39-308) 05/29/21 22:19 Total Protein 6.5 g/dL (6.6-8.7) L D 05/30/21 02:10 Albumin 4.0 g/dL (3.5-5.2) 05/30/21 02:10 Globulin 2.5 g/dL (1.3-4.6) 05/30/21 02:10 Urine Color Yellow (Yellow) 05/29/21 23:50 Urine Appearance Clear (CLEAR) 05/29/21 23:50 Urine pH 5 (5-7) 05/29/21 23:50 Ur Specific [place] 1.025 (1.005-1.030) 05/29/21 23:50 Urine Protein 2+ (Negative) H 05/29/21 23:50 Urine Glucose (UA) 4+ (Normal) H 05/29/21 23:50 Urine Ketones 3+ (Negative) H 05/29/21 23:50 Urine Blood Neg (Negative) 05/29/21 23:50 Urine Nitrate Negative (Negative) 05/29/21 23:50 Urine Bilirubin 1+ (Negative) H 05/29/21 23:50 Urine Urobilinogen 1 mg/dL (Negative) H 05/29/21 23:50 Ur Leukocyte Esterase Negative (Negative) 05/29/21 23:50 Urine RBC 0-4 /hpf (0-2) H 05/29/21 23:50 Urine WBC 0-4 /hpf (0-5) H 05/29/21 23:50 Ur Squamous Epith Cells 0-4 /hpf (0-5) H 05/29/21 23:50 Amorphous Sediment 1+ /hpf 05/29/21 23:50 Urine Bacteria 1+ /hpf (NONE) H 05/29/21 23:50 Hyaline Casts 15-25 /lpf H 05/29/21 23:50 Ethyl Alcohol < 10 mg/dL (0-10) 05/29/21 22:19 Serum Ketones Positive (Negative) H 05/29/21 23:02 05/29/21 22:45 ABG pH 7.22 L ABG pCO2 25.4 L ABG pO2 103.0 H ABG HCO3 10.5 L ABG Base Excess -15.1 L A&P Assessment and plan (1) Diabetic keto-acidosis: Status: Acute Qualifiers: Diabetes mellitus complication detail: without coma Diabetes mellitus type: type 1 Qualified Code(s): E10.10 - Type 1 diabetes mellitus with ke toacidosis without coma Additional A&P Information Admit to ICU Start insulin infusion per DKA protocol Currently anion gap at 34 Blood sugar currently at less than 250 however serum ketones positive, received 20 units of insulin just prior to hospital arrival. Insulin infusion alongside of D5 half NS at 75 cc an hour N.p.o. for now until anion gap to close. Potassium goal to maintain between 4-5 Check CMP every 4 hours Full code Attestations Medical Necessity Statement*: Anticipate greater than 2 midnight admission for above defined care Coding Level of Care Code [employer] for [facility] Fwd Diagnoses Diabetic keto-acidosis E10.10 Diabetes mellitus complication detail: without coma Diabetes mellitus type: type 1
[2021-05-30 00:23] LABS: Add Urine Microscopic? YES; Bilirubin Urine 1+ (Negative); Blood Urine Neg (Negative); Glucose Urine UA 4+ (Normal); Ketones Urine 3+ (Negative); Leukocyte Esterase Urine Negative (Negative); Nitrate Urine Negative (Negative); Protein Urine 2+ (Negative); Specific Gravity, Urine 1.025 (1.005-1.030); Urine Appearance Clear (CLEAR); Urine Color Yellow (Yellow); Urobilinogen Urine 1 mg/dL (Negative); pH Urine 5 (5-7)
[2021-05-30] MEDS: dextrose 5%-sod chloride 0.45% 1,000 ML 100 ML IV ×2 (00:31→09:41)
[2021-05-30] MEDS: insulin regular-human 250 UNIT in sodium chloride 0.9% 250 ML IV (00:33)
[2021-05-30 00:35] LABS: Add Urine Culture? No; Amorphous Sediment Urine 1+ /hpf; Bacteria Urine 1+ /hpf; Hyaline Casts Urine 15-25 /lpf; RBC Urine 0-4 /hpf (0-2); Squamous Epithelial Cell Urine 0-4 /hpf (0-5); WBC Urine 0-4 /hpf (0-5)
[2021-05-30] MEDS: sodium chloride 0.9% 1,000 ML 250 ML IV (00:37)
[2021-05-30 02:35] LABS: Alanine Aminotransferase 14 U/L (0-41); Alkaline Phosphatase 60 IU/L (40-130); Anion Gap 20.5 (5-19); Aspartate Amino Transferase 10 U/L (0-40); Blood Urea Nitrogen 23 mg/dL (6-20); Calcium 8.3 mg/dL (8.5-10.5); Carbon Dioxide 16 mmol/L (22-29); Chloride 108 mmol/L (98-107); Globulin 2.5 g/dL (1.3-4.6); Glomerular Filtration Rate 91.8 mL/min (90-130); Glucose 154 mg/dL (65-115); Osmolality Calculated 297 mOsm/kg (285-295); Potassium 4.5 mmol/L (3.5-5.1); Sodium 140 mmol/L (136-145); Total Bilirubin 0.2 mg/dL (0.15-1.2); Total Protein 6.5 g/dL (6.6-8.7)
[2021-05-30 02:57] LABS: Glucose Point of Care 145 mg/dL (70-110)
[2021-05-30 02:57] LABS: Glucose Point of Care 153 mg/dL (70-110)
[2021-05-30 02:57] LABS: Glucose Point of Care 175 mg/dL (70-110)
[2021-05-30 04:04] LABS: Glucose Point of Care 135 mg/dL (70-110)
[2021-05-30 06:28] LABS: Glucose Point of Care 102 mg/dL (70-110)
[2021-05-30 06:28] LABS: Glucose Point of Care 115 mg/dL (70-110)
[2021-05-30 07:01] LABS: Alanine Aminotransferase 13 U/L (0-41); Albumin Level 3.9 g/dL (3.5-5.2); Alkaline Phosphatase 56 IU/L (40-130); Aspartate Amino Transferase 10 U/L (0-40); Blood Urea Nitrogen 19 mg/dL (6-20); Calcium 8.3 mg/dL (8.5-10.5); Carbon Dioxide 15 mmol/L (22-29); Chloride 109 mmol/L (98-107); Globulin 2.5 g/dL (1.3-4.6); Glomerular Filtration Rate 138.6 mL/min (90-130); Glucose 100 mg/dL (65-115); Osmolality Calculated 290 mOsm/kg (285-295); Sodium 139 mmol/L (136-145); Total Bilirubin 0.3 mg/dL (0.15-1.2); Total Protein 6.4 g/dL (6.6-8.7)
[2021-05-30 07:05] LABS: Anion Gap 18.9 (5-19); Potassium 3.9 mmol/L (3.5-5.1)
[2021-05-30 07:26] LABS: Glucose Point of Care 111 mg/dL (70-110)
[2021-05-30] MEDS: potassium chloride ER 20 mEq Tablet PO (07:26)
[2021-05-30] MEDS: insulin glargine 100 units/1 mL 40 UNIT SUBCUT (07:26)
[2021-05-30] MEDS: pantoprazole DR 40 mg Tablet PO (09:16)
[2021-05-30 09:22] LABS: ABG PCO2 28.6 mmHg (35-45); ABG PH Result 7.38 (7.35-7.45); Arterial Blood Gas Hematocrit 45.4 % (42-52); Base Excess ABG -6.9 mmol/L (-2.0-2.0); Blood Gas Sample Type Arterial; HCO3 ABG 16.8 mmol/L (22-26)
[2021-05-30 09:23] LABS: Blood Gas Operator Identificat ED; Blood Gas Sample Site Brachial, right; Oxygen Device ROOM AIR
--- NOTE | 2021-05-30 10:53 | PC.NURSE ---
already wanting to go home. will wait for insulin from pharmacy.
[2021-05-30] MEDS: sodium chloride 0.9% 1,000 ML 75 ML IV (10:57)
--- NOTE | 2021-05-30 11:09 | PM.DCS ---
Discharge Providers Date of Admission: 05/29/21 23:41 Date of Discharge: May 30, 2021 Attending Provider at Admission: Xiomara Arevalo MD Attending Provider at Discharge: Jase Luna MD Primary Care Provider: MARGE Castellano Diagnoses at Discharge Discharge Diagnosis (1) Diabetic keto-acidosis: Status: Acute Qualifiers: Diabetes mellitus complication detail: without coma Diabetes mellitus type: type 1 Qualified Code(s): E10.10 - Type 1 diabetes mellitus with ketoacidosis without coma Reason for Visit Reason for Visit: DKA Hospital Course Hospital Course Salvatore Ott is a 26 year old male with multiple hospital admissions for DKA, presents today with chief complaints of weakness lethargy nausea and vomiting. Labs consistent with DKA with elevated blood sugar, took 20 units of NovoLog just prior to admission to the hospital, ketones positive, high anion gap metabolic acidosis. Uncertain if he had correctly been taking his insulin over the last 24 hours. Patient admitted to hospital/ICU for further management of DKA. Started on insulin drip and IV hydration. He responded well to the treatment and his gap closed by next morning and he was transitioned over to oral diet and his regular insulin. Patient has been provided with insulin vials for his insulin pump. He has been explained again in detail regarding the insulin sliding scale and has been written out for him. Patient was counseled again to follow-up with his product safety consultant. Physical Exam Narrative: EXAM NARRATIVE: General: AOx3, no acute distress HEENT: PERRLA, pupils bilaterally equal and reactive, pallors not present Chest: Normal vesicular breath sounds, no added sounds, equal good air entry bilaterally CVS: S1-S2 regular, no murmurs, no tachycardia, no gallops, no rubs Abdomen: Soft, nontender, no organomegaly, bowel sounds present Neuro: No focal deficits, no facial deformity, AO x3, power 5/5 in all limbs Discharge Data Data Completed and Pending: Pending at discharge Category Date Time Status Complete Blood Co unt w/Auto Routine Lab 05/30/21 10:22 Ordered Comprehensive Met abolic Panel Q4H Lab 05/30/21 10:00 Ordered Comprehensive Met abolic Panel Q4H Lab 05/30/21 14:00 Ordered Comprehensive Met abolic Panel Q4H Lab 05/30/21 18:00 Ordered Comprehensive Met abolic Panel Q4H Lab 05/30/21 22:00 Ordered Labs from last 24 hours 05/30/21 05/30/21 05/30/21 09:12 07:23 06:27 WBC RBC Hgb Hct MCV MCH MCHC RDW Plt Count MPV Neut % (Auto) Lymph % (Auto) [place] % (Auto) Eos % (Auto) Baso % (Auto) Neut # (Auto) Lymph # (Auto) [place] # (Auto) Eos # (Auto) Baso # (Auto) Nucleated RBC % (a uto) Nucleated RBCs # Specimen Type Arterial Sample Site Brachial, right ABG pH 7.38 ABG pCO2 28.6 L ABG pO2 109.0 H ABG HCO3 16.8 L ABG Base Excess -6.9 L Hasmukh Test N/a Hematocrit 45.4 O2 Delivery Device Room air FiO2 21.0 Human Resources Trainer ID Ed Sodium 139 Potassium 3.9 Chloride 109 H Carbon Dioxide 15 L Anion Gap 18.9 BUN 19 Creatinine 0.7 GFR Calculation 138.6 H Glucose 100 POC Glucose 111 H Calculated Osmolal ity 290 Calcium 8.3 L Magnesium Total Bilirubin 0.3 AST 10 ALT 13 Alkaline Phosphata se 56 Creatine Kinase Total Protein 6.4 L Albumin 3.9 Globulin 2.5 Urine Color Urine Appearance Urine pH Ur Specific Gravit y Urine Protein Urine Glucose (UA) Urine Ketones Urine Blood Urine Nitrate Urine Bilirubin Urine Urobilinogen Ur Leukocyte Mini ase Urine RBC Urine WBC Ur Squamous Epith Cells Amorphous Sediment Urine Bacteria Hyaline Casts Ethyl Alcohol Serum Ketones 05/30/21 05/30/21 05/30/21 06:11 05:00 03:56 WBC RBC Hgb Hct MCV MCH MCHC RDW Plt Count MPV Neut % (Auto) Lymph % (Auto) [place] % (Auto) Eos % (Auto) Baso % (Auto) Neut # (Auto) Lymph # (Auto) [place] # (Auto) Eos # (Auto) Baso # (Auto) Nucleated RBC % (a uto) Nucleated RBCs # Specimen Type Sample Site ABG pH ABG pCO2 ABG pO2 ABG HCO3 ABG Base Excess Hasmukh Test Hematocrit O2 Delivery Device FiO2 Human Resources Trainer ID Sodium Potassium Chloride Carbon Dioxide Anion Gap BUN Creatinine GFR Calculation Glucose POC Glucose 102 115 H 135 H Calculated Osmolal ity Calcium Magnesium Total Bilirubin AST ALT Alkaline Phosphata se Creatine Kinase Total Protein Albumin Globulin Urine Color Urine Appearance Urine pH Ur Specific Gravit y Urine Protein Urine Glucose (UA) Urine Ketones Urine Blood Urine Nitrate Urine Bilirubin Urine Urobilinogen Ur Leukocyte Mini ase Urine RBC Urine WBC Ur Squamous Epith Cells Amorphous Sediment Urine Bacteria Hyaline Casts Ethyl Alcohol Serum Ketones 05/30/21 05/30/21 05/30/21 02:49 02:10 01:40 WBC RBC Hgb Hct MCV MCH MCHC RDW Plt Count MPV Neut % (Auto) Lymph % (Auto) [place] % (Auto) Eos % (Auto) Baso % (Auto) Neut # (Auto) Lymph # (Auto) [place] # (Auto) Eos # (Auto) Baso # (Auto) Nucleated RBC % (a uto) Nucleated RBCs # Specimen Type Sample Site ABG pH ABG pCO2 ABG pO2 ABG HCO3 ABG Base Excess Hasmukh Test Hematocrit O2 Delivery Device FiO2 Human Resources Trainer ID Sodium 140 Potassium 4.5 Chloride 108 H Carbon Dioxide 16 L Anion Gap 20.5 H BUN 23 H Creatinine 1.0 GFR Calculation 91.8 Glucose 154 H POC Glucose 145 H 153 H Calculated Osmolal ity 297 H Calcium 8.3 L Magnesium Total Bilirubin 0.2 AST 10 ALT 14 Alkaline Phosphata se 60 Creatine Kinase Total Protein 6.5 L D Albumin 4.0 Globulin 2.5 Urine Color Urine Appearance Urine pH Ur Specific Gravit y Urine Protein Urine Glucose (UA) Urine Ketones Urine Blood Urine Nitrate Urine Bilirubin Urine Urobilinogen Ur Leukocyte Mini ase Urine RBC Urine WBC Ur Squamous Epith Cells Amorphous Sediment Urine Bacteria Hyaline Casts Ethyl Alcohol Serum Ketones 05/30/21 05/29/21 05/29/21 00:27 23:50 23:02 WBC RBC Hgb Hct MCV MCH MCHC RDW Plt Count MPV Neut % (Auto) Lymph % (Auto) [place] % (Auto) Eos % (Auto) Baso % (Auto) Neut # (Auto) Lymph # (Auto) [place] # (Auto) Eos # (Auto) Baso # (Auto) Nucleated RBC % (a uto) Nucleated RBCs # Specimen Type Sample Site ABG pH ABG pCO2 ABG pO2 ABG HCO3 ABG Base Excess Hasmukh Test Hematocrit O2 Delivery Device FiO2 Human Resources Trainer ID Sodium Potassium Chloride Carbon Dioxide Anion Gap BUN Creatinine GFR Calculation Glucose POC Glucose 175 H Calculated Osmolal ity Calcium Magnesium Total Bilirubin AST ALT Alkaline Phosphata se Creatine Kinase Total Protein Albumin Globulin Urine Color Yellow Urine Appearance Clear Urine pH 5 Ur Specific Gravit y 1.025 Urine Protein 2+ H Urine Glucose (UA) 4+ H Urine Ketones 3+ H Urine Blood Neg Urine Nitrate Negative Urine Bilirubin 1+ H Urine Urobilinogen 1 H Ur Leukocyte Mini ase Negative Urine RBC 0-4 H Urine WBC 0-4 H Ur Squamous Epith Cells 0-4 H Amorphous Sediment 1+ Urine Bacteria 1+ H Hyaline Casts 15-25 H Ethyl Alcohol Serum Ketones Positive H 05/29/21 05/29/21 05/29/21 22:45 22:19 22:19 WBC 15.7 H RBC 6.24 H Hgb 19.0 H Hct 56.0 H MCV 89.7 MCH 30.4 MCHC 33.9 RDW 12.1 Plt Count 419 H MPV 9.7 Neut % (Auto) 93.1 Lymph % (Auto) 3.9 [place] % (Auto) 2.0 Eos % (Auto) 0.0 Baso % (Auto) 0.3 Neut # (Auto) 14.64 H Lymph # (Auto) 0.6 L [place] # (Auto) 0.3 Eos # (Auto) 0.0 Baso # (Auto) 0.0 Nucleated RBC % (a uto) 0 Nucleated RBCs # 0.0 Specimen Type Arterial Sample Site Radial, right ABG pH 7.22 L ABG pCO2 25.4 L ABG pO2 103.0 H ABG HCO3 10.5 L ABG Base Excess -15.1 L Hasmukh Test Pos Hematocrit 57.4 H O2 Delivery Device Nc FiO2 21.0 Human Resources Trainer ID [email or web address] Sodium 141 Potassium 5.5 H Chloride 101 Carbon Dioxide 11 L Anion Gap 34.5 H BUN 33 H Creatinine 1.1 GFR Calculation 82.2 L Glucose 213 H POC Glucose Calculated Osmolal ity 306 H Calcium 10.2 Magnesium 2.9 H Total Bilirubin 0.3 AST 15 ALT 20 Alkaline Phosphata se 86 Creatine Kinase 57 Total Protein 9.1 H Albumin 5.2 Globulin 3.9 Urine Color Urine Appearance Urine pH Ur Specific Gravit y Urine Protein Urine Glucose (UA) Urine Ketones Urine Blood Urine Nitrate Urine Bilirubin Urine Urobilinogen Ur Leukocyte Mini ase Urine RBC Urine WBC Ur Squamous Epith Cells Amorphous Sediment Urine Bacteria Hyaline Casts Ethyl Alcohol < 10 Serum Ketones 05/29/21 22:09 WBC RBC Hgb Hct MCV MCH MCHC RDW Plt Count MPV Neut % (Auto) Lymph % (Auto) [place] % (Auto) Eos % (Auto) Baso % (Auto) Neut # (Auto) Lymph # (Auto) [place] # (Auto) Eos # (Auto) Baso # (Auto) Nucleated RBC % (a uto) Nucleated RBCs # Specimen Type Sample Site ABG pH ABG pCO2 ABG pO2 ABG HCO3 ABG Base Excess Hasmukh Test Hematocrit O2 Delivery Device FiO2 Human Resources Trainer ID Sodium Potassium Chloride Carbon Dioxide Anion Gap BUN Creatinine GFR Calculation Glucose POC Glucose 227 H Calculated Osmolal ity Calcium Magnesium Total Bilirubin AST ALT Alkaline Phosphata se Creatine Kinase Total Protein Albumin Globulin Urine Color Urine Appearance Urine pH Ur Specific Gravit y Urine Protein Urine Glucose (UA) Urine Ketones Urine Blood Urine Nitrate Urine Bilirubin Urine Urobilinogen Ur Leukocyte Mini ase Urine RBC Urine WBC Ur Squamous Epith Cells Amorphous Sediment Urine Bacteria Hyaline Casts Ethyl Alcohol Serum Ketones Addt'l Data from Hospital Stay: Laboratory Results WBC 15.7 10^3/uL (4.0 -10.0) H 05/29/21 22:19 RBC 6.24 10^6/uL (4.1 -5.3) H 05/29/21 22:19 Hgb 19.0 g/dL (11.7-1 6.6) H 05/29/21 22:19 Hct 56.0 % (42.0-52.0 ) H 05/29/21 22:19 MCV 89.7 fl (80-94) 05/29/21 22:19 MCH 30.4 pg (28.0-34. 0) 05/29/21 22:19 MCHC 33.9 g/dL (30.0-3 6.0) 05/29/21 22:19 RDW 12.1 % (12.1-15.1 ) 05/29/21 22:19 Plt Count 419 10^3/cmm (130 -400) H 05/29/21 22:19 MPV 9.7 fL (7.4-10.4) 05/29/21 22:19 Neut % (Auto) 93.1 % 05/29/21 22:19 Lymph % (Auto) 3.9 % 05/29/21 22:19 [place] % (Auto) 2.0 % 05/29/21 22:19 Eos % (Auto) 0.0 % 05/29/21 22:19 Baso % (Auto) 0.3 % 05/29/21 22:19 Neut # (Auto) 14.64 10^3/uL (1. 8-7.7) H 05/29/21 22:19 Lymph # (Auto) 0.6 10^3/uL (0.8- 4.8) L 05/29/21 22:19 [place] # (Auto) 0.3 10^3/uL (0.2- 0.9) 05/29/21 22:19 Eos # (Auto) 0.0 10^3/uL (0.0- 0.8) 05/29/21 22:19 Baso # (Auto) 0.0 10^3/uL (0.0- 0.1) 05/29/21 22:19 Nucleated RBC % (a uto) 0 % 05/29/21 22:19 Nucleated RBCs # 0.0 /100WBC 05/29/21 22:19 Specimen Type Arterial 05/30/21 09:12 Sample Site Brachial, right 05/30/21 09:12 ABG pH 7.38 (7.35-7.45) 05/30/21 09:12 ABG pCO2 28.6 mmHg (35-45) L 05/30/21 09:12 ABG pO2 109.0 mmHg (80.0- 100.0) H 05/30/21 09:12 ABG HCO3 16.8 mmol/L (22-2 6) L 05/30/21 09:12 ABG Base Excess -6.9 mmol/L (-2.0 -2.0) L 05/30/21 09:12 Hasmukh Test N/a 05/30/21 09:12 Hematocrit 45.4 % (42-52) 05/30/21 09:12 O2 Delivery Device Room air 05/30/21 09:12 FiO2 21.0 % 05/30/21 09:12 Human Resources Trainer ID Ed 05/30/21 09:12 Sodium 139 mmol/L (136-1 45) 05/30/21 06:27 Potassium 3.9 mmol/L (3.5-5 .1) 05/30/21 06:27 Chloride 109 mmol/L (98-10 7) H 05/30/21 06:27 Carbon Dioxide 15 mmol/L (22-29) L 05/30/21 06:27 Anion Gap 18.9 (5-19) 05/30/21 06:27 BUN 19 mg/dL (6-20) 05/30/21 06:27 Creatinine 0.7 mg/dL (0.7-1. 2) 05/30/21 06:27 GFR Calculation 138.6 mL/min (90- 130) H 05/30/21 06:27 Glucose 100 mg/dL (65-115 ) 05/30/21 06:27 POC Glucose 111 mg/dL (70-110 ) H 05/30/21 07:23 Calculated Osmolal ity 290 mOsm/kg (285- 295) 05/30/21 06:27 Calcium 8.3 mg/dL (8.5-10 .5) L 05/30/21 06:27 Magnesium 2.9 mg/dL (1.7-2. 3) H 05/29/21 22:19 Total Bilirubin 0.3 mg/dL (0.15-1 .2) 05/30/21 06:27 AST 10 U/L (0-40) 05/30/21 06:27 ALT 13 U/L (0-41) 05/30/21 06:27 Alkaline Phosphata se 56 IU/L (40-130) 05/30/21 06:27 Creatine Kinase 57 U/L (39-308) 05/29/21 22:19 Total Protein 6.4 g/dL (6.6-8.7 ) L 05/30/21 06:27 Albumin 3.9 g/dL (3.5-5.2 ) 05/30/21 06:27 Globulin 2.5 g/dL (1.3-4.6 ) 05/30/21 06:27 Urine Color Yellow (Yellow) 05/29/21 23:50 Urine Appearance Clear (CLEAR) 05/29/21 23:50 Urine pH 5 (5-7) 05/29/21 23:50 Ur Specific Gravit y 1.025 (1.005-1.0 30) 05/29/21 23:50 Urine Protein 2+ (Negative) H 05/29/21 23:50 Urine Glucose (UA) 4+ (Normal) H 05/29/21 23:50 Urine Ketones 3+ (Negative) H 05/29/21 23:50 Urine Blood Neg (Negative) 05/29/21 23:50 Urine Nitrate Negative (Negati ve) 05/29/21 23:50 Urine Bilirubin 1+ (Negative) H 05/29/21 23:50 Urine Urobilinogen 1 mg/dL (Negative ) H 05/29/21 23:50 Ur Leukocyte Mini ase Negative (Negati ve) 05/29/21 23:50 Urine RBC 0-4 /hpf (0-2) H 05/29/21 23:50 Urine WBC 0-4 /hpf (0-5) H 05/29/21 23:50 Ur Squamous Epith Cells 0-4 /hpf (0-5) H 05/29/21 23:50 Amorphous Sediment 1+ /hpf 05/29/21 23:50 Urine Bacteria 1+ /hpf (NONE) H 05/29/21 23:50 Hyaline Casts 15-25 /lpf H 05/29/21 23:50 Ethyl Alcohol < 10 mg/dL (0-10) 05/29/21 22:19 Serum Ketones Positive (Negati ve) H 05/29/21 23:02 Vitals: Last Vital Signs Temp 98.2 F 05/30/21 10:45 Pulse 91 05/30/21 10:58 Resp 18 05/30/21 10:45 BP 114/91 05/30/21 10:45 Pulse Ox 100 05/30/21 10:58 Discharge Plan Discharge Patient Disposition: Home Condition: Stable Prescriptions: New Novolog U-100 Insulin aspart 100 unit/mL Solution 0 unit SUBCUT WM&BEDTIME 30 Days Qty: 50 RF: 0 Continued (DME) Dexcom G6 Tablet Making Machine Operator Misc See Rx Instructions .ROUTE .MEDSUPPLY Qty: 1 RF: 0 (DME) Dexcom G6 Sensor Device See Rx Instructions .ROUTE .MEDSUPPLY Qty: 3 RF: 3 (DME) Dexcom G6 Transmitter Device See Rx Instructions .ROUTE .MEDSUPPLY Qty: 3 RF: 3 (DME) blood sugar diagnostic Strip See Rx Instructions .Route Qty: 100 RF: 0 (DME) Blood Glucose Test Strip See Rx Instructions .Route Qty: 100 RF: 0 (DME) blood-glucose meter [Blood Glucose Monitoring] Kit See Rx Instructions .Route Qty: 1 RF: 0 Lantus Solostar U-100 Insulin 100 unit/mL (3 mL) insulin pen 40 unit SUBCUT BID 30 Days Qty: 24 RF: 3 insulin aspart U-100 [Novolog Flexpen U-100 Insulin] 100 unit/mL (3 mL) insulin pen See Rx Instructions .ROUTE .COMPLEX Qty: 15 RF: 3 (DME) lancets Misc See Rx Instructions .Route Qty: 200 RF: 0 (DME) strips See Rx Instructions .Route .MEDSUPPLY Qty: 1 RF: 0 (DME) strips See Rx Instructions .Route .MEDSUPPLY Qty: 200 RF: 3 (DME) lancets See Rx Instructions .Route .MEDSUPPLY Qty: 200 RF: 1 Discharge Orders: Discharge Order (Routine); Ordered 05/30/21 Ordered By: Jase Luna Referrals: Earlene Titus FNP-C [Primary Care Provider] - 1 week Evelin Metz MD [Physician] - 4-7 days Discharge Diet: Diabetic Discharge Activity: Resume usual activity Patient Instructions: Opioid Safety Activity Restrictions/Additional Instructions: Discussed in detail please use your insulin pump. Insulin has been provided to you. Insulin sliding scale when he uses FlexPen would be 140-180 mg/dL - 6 units 181?220-08 units 221?260-10 units 261-300?12 units 301?350-16 units 351-400- 20 units Discharge Attestations Time Spent in Discharge Care*: greater than 30 min Specific Discharge Activities: educating patient, discussing with pcp/other providers, discussing with onsite case manager/social workers/dc planners, documenting/other paperwork and evaluating patient/reviewing data Status at Discharge: Cognitive status at discharge: cognitively intact, Behavioral status at discharge: cooperative, Functional status at discharge: independent ambulation Overall status at discharge: patient is back to baseline Quality Metrics Clinical Quality Measures During this hospital stay, did patient experience: None Coding Level of Care Code Acute [facility] FW DC note Diagnoses Diabetic keto-acidosis E10.10 Diabetes mellitus complication detail: without coma Diabetes mellitus type: type 1
--- NOTE | 2021-05-30 12:12 | PC.NURSE ---
continues to say he is going home. waiting for insulin for insulin pump, which is at home, he says.
--- NOTE | 2021-06-03 09:26 | PC.SOCIAL ---
multiple calls made today and yesterday, unable to reach patient. unable to leave voicemail.
== END 2021-05-30 12:55 | disposition home or self-care (01) | DRG 639 ==
LOC: ER 23:41 → ICU 23:51
PROVIDERS: Admitting Provider Student in an Organized Health Care Education/Training Program; Emergency Provider Emergency Medicine; PCP Nurse Practitioner Family; Visit Provider Student in an Organized Health Care Education/Training Program
DX: E10.10 Type 1 diabetes mellitus with ketoacidosis without coma (principal); K21.9 Gastro-esophageal reflux disease without esophagitis; F17.200 Nicotine dependence, unspecified, uncomplicated; F12.10 Cannabis abuse, uncomplicated; Z83.3 Family history of diabetes mellitus; Z79.4 Long term (current) use of insulin; Z56.0 Unemployment, unspecified
CPT/HCPCS: 36415; 36416; 36600; 80053; 80307; 81001; 82009; 82550; 82803; 82962; 83735; 85025; 93005; 96360; 96361; 96372; 99285; J1815 ×2; J7030; J7050; J7799

== ENCOUNTER 2021-08-08 14:38 | Inpatient (IN) | payer MEDICARE, MEDICAID, SELFPAY ==
[2021-08-08] VITALS (12 sets, daily range): BP systolic 97–117; BP diastolic 52–87; PULSE 67–110; RESP 0–26; TEMP 36.8; O2SAT 83–99
[2021-08-08] MEDS: lactated ringers 1,000 ML 999 ML IV ×6 (15:03→15:58)
[2021-08-08 15:06] LABS: Basophils # 0.1 10^3/uL (0.0-0.1); Basophils % 0.8 %; Hematocrit 53.7 % (42.0-52.0); Hemoglobin 17.6 g/dL (11.7-16.6); Lymphocytes # 0.5 10^3/uL (0.8-4.8); Lymphocytes % 4.8 %; Mean Corpuscular HGB Conc 32.8 g/dL (30.0-36.0); Mean Corpuscular Hemoglobin 30.4 pg (28.0-34.0); Mean Corpuscular Volume 92.9 fl (80-94); Mean Platelet Volume 10.4 fL (7.4-10.4); Monocytes # 0.1 10^3/uL (0.2-0.9); Monocytes % 1.2 %; Neutrophils # 8.61 10^3/uL (1.8-7.7); Neutrophils % 92.4 %; Nucleated Red Blood Cells % 0 %; Platelet Count 314 10^3/cmm (130-400); Red Blood Count 5.78 10^6/uL (4.1-5.3); Red Cell Distribution Width 12.5 % (12.1-15.1); White Blood Count 9.3 10^3/uL (4.0-10.0)
[2021-08-08] MEDS: ondansetron 2 mg/ML SDV 2 mL 4 MG IVP (15:07)
--- NOTE | 2021-08-08 15:18 | W.ED.GENADLT ---
HPI - General Adult General: Chief complaint: General Medical Stated complaint: HIGH BLOOD SUGAR Time Seen by Provider: 08/08/21 14:42 History of Present Illness: HPI narrative: 26-year-old male history of recurrent DKA presented to emergency room with nausea vomiting abdominal pain patient presents symptoms of abdominal started 3 AM this morning. Since then, has not been feeling well. Patient called EMS and was brought to the emergency room for evaluation. Has an insulin pump however does not use his insulin regularly Onset:3am Duration: 15 hrs ago Location:home Severity:moderate Review of Systems Narrative: Constitutional: No fever, no chills. HEENT: No vision changes CV: No chest pain, no palpitations PULM: no cough, no dyspnea. GI: +diffuse abdominal pain, +N/+V/-D. : No dysuria MSKEL: No muscle pain SKIN: No new rashes, no lesions. NEURO: No headache, no focal weakness. HEME: No visible bruises PSYCH: Normal mood PFSH ED PFSH: Medical History DKA (diabetic ketoacidoses) GERD (gastroesophageal reflux disease) Hyperglycemia Long-term insulin use Marijuana use Methamphetamine abuse Nausea & vomiting Noncompliance with diabetes treatment Pancreatitis Type 1 diabetes With recurrent admissions for DKA, severe Uncontrolled type 1 diabetes mellitus Surgical History No pertinent past surgical history Family History Other Diabetes Social History Smoking and tobacco status: current every day smoker Alcohol intake: never Lives independently: Yes Household members: significant other Marital status: Single Current occupational status: unemployed Physical Exam Narrative: EXAM NARRATIVE: Head: Atraumatic Eyes: PERRL, conjunctiva without injection ENT: Mucous membrane Dry NECK: Supple, ROM intact LUNGS: LCTAB, no crackles/rhonchi CV: Sinus tachycardia ABDOMEN: Soft, No focal TTP. NO guarding rebound, guarding, rigidity. No CVA tenderness to percussion. Neg Funes/Neg McBurney's point tenderness, no suprabupic tenderness to palpation. EXTREMITY: Normal ROM SKIN: No rash or erythema NEURO: Awake and alert, no focal motor deficits PSYCH: Normal mood and affect Course Vital Signs: Vital signs: Vital Signs Temperature 98.3 F 08/08/21 14:48 Pulse Rate 67 08/08/21 16:32 Respiratory Rate 18 08/08/21 16:32 Blood Pressure 107/87 08/08/21 14:48 Pulse Oximetry 97 08/08/21 16:32 MDM - General Adult MDM Narrative: Medical decision making narrative: 26-year-old male with history of recurrent DKA presents to emergency room with nausea vomiting not feeling well. Patient is noted to be tachycardic to the low 100s. Dry on exam. Laboratory work-up is consistent with DKA. Patient received 6 L of LR. Patient is on insulin drip currently. Case was discussed with Dr. Mendez who agrees with ICU admission. DKA likely medication non-compliance. Disposition: ICU Lab Data: Labs: Lab Results 08/08/21 08/08/21 08/08/21 14:55 14:55 14:55 WBC 9.3 10^3/uL 10^3/ uL (4.0-10.0) RBC 5.78 10^6/uL H 10 ^6/uL (4.1-5.3) Hgb 17.6 g/dL H g/dL (11.7-16.6) Hct 53.7 % H % (42.0-52.0) MCV 92.9 fl fl (80-94) MCH 30.4 pg pg (28.0-34.0) MCHC 32.8 g/dL g/dL (30.0-36.0) RDW 12.5 % % (12.1-15.1) Plt Count 314 10^3/cmm 10^3 /cmm (130-400) MPV 10.4 fL fL (7.4-10.4) Neut % (Auto) 92.4 % % Lymph % (Auto) 4.8 % % [place] % (Auto) 1.2 % % Eos % (Auto) 0.0 % % Baso % (Auto) 0.8 % % Neut # (Auto) 8.61 10^3/uL H 10 ^3/uL (1.8-7.7) Lymph # (Auto) 0.5 10^3/uL L 10^ 3/uL (0.8-4.8) [place] # (Auto) 0.1 10^3/uL L 10^ 3/uL (0.2-0.9) Eos # (Auto) 0.0 10^3/uL 10^3/ uL (0.0-0.8) Baso # (Auto) 0.1 10^3/uL 10^3/ uL (0.0-0.1) Nucleated RBC % (a uto) 0 % % Nucleated RBCs # 0.0 /100WBC /100W BC Specimen Type Sample Site ABG pH ABG pCO2 ABG pO2 ABG HCO3 ABG Base Excess Hasmukh Test Hematocrit FiO2 Apartment Assistant Manager ID Sodium 136 mmol/L mmol/L (136-145) Potassium 5.6 mmol/L H mmol /L (3.5-5.1) Chloride 96 mmol/L L mmol/ L (98-107) Carbon Dioxide 11 mmol/L L mmol/ L (22-29) Anion Gap 34.6 H (5-19) BUN 20 mg/dL mg/dL (6-20) Creatinine 0.9 mg/dL mg/dL (0.7-1.2) GFR Calculation 103.7 mL/min mL/m in (90-130) Glucose 336 mg/dL H mg/dL (65-115) Calculated Osmolal ity 298 mOsm/kg H mOs m/kg (285-295) Calcium 9.2 mg/dL mg/dL (8.5-10.5) Total Bilirubin 0.3 mg/dL mg/dL (0.15-1.2) AST 21 U/L U/L (0-40) ALT 21 U/L U/L (0-41) Alkaline Phosphata se 87 IU/L IU/L (40-130) Total Protein 8.0 g/dL g/dL (6.6-8.7) Albumin 5.3 g/dL H g/dL (3.5-5.2) Globulin 2.7 g/dL g/dL (1.3-4.6) Lipase 28 U/L U/L (13-60) Serum Ketones Positive H (Negative) 08/08/21 15:15 WBC RBC Hgb Hct MCV MCH MCHC RDW Plt Count MPV Neut % (Auto) Lymph % (Auto) [place] % (Auto) Eos % (Auto) Baso % (Auto) Neut # (Auto) Lymph # (Auto) [place] # (Auto) Eos # (Auto) Baso # (Auto) Nucleated RBC % (a uto) Nucleated RBCs # Specimen Type Arterial Sample Site Brachial, left ABG pH 7.19 L (7.35-7.45) ABG pCO2 25.9 mmHg L mmHg (35-45) ABG pO2 108.0 mmHg H mmHg (80.0-100.0) ABG HCO3 10.0 mmol/L L mmo l/L (22-26) ABG Base Excess -16.5 mmol/L L mm ol/L (-2.0-2.0) Hasmukh Test N/a Hematocrit 43.5 % % (42-52) FiO2 21.0 % % Apartment Assistant Manager ID Rieri Sodium Potassium Chloride Carbon Dioxide Anion Gap BUN Creatinine GFR Calculation Glucose Calculated Osmolal ity Calcium Total Bilirubin AST ALT Alkaline Phosphata se Total Protein Albumin Globulin Lipase Serum Ketones Critical Care Time Critical Care Time: Critical Care Time: Yes Total Critical Care Time: 35 Attestation: Given the high probability of imminent or life threatening deterioration of the patient?s condition without intervention, the patient was immediately assessed by myself and the nurse, and cardiac monitoring initiated. The patient was also placed on oxygen and continuous pulse oximetry initiated. During the course of the patient?s stay, I spent a considerable amount of time at the bedside performing serial re-evaluations of the patient?s hemodynamic and clinical status because of the recognized potential threat to life or limb in this condition. Clinical management of this patient involved high complexity decision making to assess, manipulate, and support vital organ system failure. I then had a chance to review all of the available laboratory and radiographic studies obtained today, and I also reviewed old records available to me at the time. Sequential vital signs were obtained. Critical care time noted below was time spent engaged in work directly related to the individual patient?s care, not including time performing procedures; however it does include time spent at the immediate bedside or elsewhere on the floor or unit. TOTAL CRITICAL CARE TIME ELAPSED: 35 minutes. BODY SYSTEM AT HIGHEST RISK: hematological. Discharge Plan Discharge Patient Disposition: Admitted As Inpatient Clinical Impression: DKA (diabetic ketoacidosis) Condition: Stable Coding Level of Care Code ED Senior Risk Analyst for Maxx Mohr
[2021-08-08 15:24] LABS: ABG PCO2 25.9 mmHg (35-45); ABG PH Result 7.19 (7.35-7.45); Arterial Blood Gas Hematocrit 43.5 % (42-52); Base Excess ABG -16.5 mmol/L (-2.0-2.0); Blood Gas Sample Site Brachial, left; Blood Gas Sample Type Arterial
[2021-08-08 15:26] LABS: Ketone (Acetest) Serum Positive (Negative)
[2021-08-08 15:29] LABS: Alanine Aminotransferase 21 U/L (0-41); Albumin Level 5.3 g/dL (3.5-5.2); Alkaline Phosphatase 87 IU/L (40-130); Anion Gap 34.6 (5-19); Aspartate Amino Transferase 21 U/L (0-40); Blood Urea Nitrogen 20 mg/dL (6-20); Calcium 9.2 mg/dL (8.5-10.5); Carbon Dioxide 11 mmol/L (22-29); Chloride 96 mmol/L (98-107); Globulin 2.7 g/dL (1.3-4.6); Glomerular Filtration Rate 103.7 mL/min (90-130); Glucose 336 mg/dL (65-115); Lipase 28 U/L (13-60); Osmolality Calculated 298 mOsm/kg (285-295); Potassium 5.6 mmol/L (3.5-5.1); Sodium 136 mmol/L (136-145); Total Bilirubin 0.3 mg/dL (0.15-1.2)
[2021-08-08] MEDS: insulin regular-human 250 UNIT in sodium chloride 0.9% 250 ML IV (16:11)
--- NOTE | 2021-08-08 16:32 | PC.NURSE ---
1610 fsbs 206 1630 fsbs 220
--- NOTE | 2021-08-08 17:02 | PC.NURSE ---
1702 bs 219
[2021-08-08 17:36] LABS: Blood Urea Nitrogen 15 mg/dL (6-20); Calcium 7.8 mg/dL (8.5-10.5); Carbon Dioxide 12 mmol/L (22-29); Chloride 103 mmol/L (98-107); Glomerular Filtration Rate 165.5 mL/min (90-130); Glucose 219 mg/dL (65-115); Osmolality Calculated 292 mOsm/kg (285-295); Sodium 137 mmol/L (136-145)
[2021-08-08 17:37] LABS: Anion Gap 26.8 (5-19); Potassium 4.8 mmol/L (3.5-5.1)
[2021-08-08 17:55] LABS: Glucose Point of Care 219 mg/dL (70-110)
[2021-08-08 17:55] LABS: Glucose Point of Care 223 mg/dL (70-110)
[2021-08-08 17:55] LABS: Glucose Point of Care 220 mg/dL (70-110)
[2021-08-08 17:55] LABS: Glucose Point of Care 206 mg/dL (70-110)
[2021-08-08 17:55] LABS: Glucose Point of Care 230 mg/dL (70-110)
--- NOTE | 2021-08-08 18:21 | PM.HP ---
Providers/Chief Complaint Admitting Physician: Jase Luna MD Primary Care Provider: MARGE Castellano Chief Complaint: HIGH BLOOD SUGAR History of Present Illness Salvatore Ott is a 26 year old male with a past medical history of noncompliant type I diabetic, history of multiple admissions secondary to DKA, recently admitted for DKA, discharged on 05/30/2021, history of leaving AGAINST MEDICAL ADVICE, who presents to [facility] due to nausea, vomiting, lightheadedness, feeling unwell. Labs consistent with DKA with elevated blood sugar, took 20 units of NovoLog just prior to admission to the hospital, ketones positive, high anion gap metabolic acidosis. Review of Systems General: Reports: 10 or more systems reviewed and unremarkable except in HPI and below Const: Denies: fever(s), chills, body aches, change in appetite, change in weight, malaise, night sweats, diaphoresis, change in sleep pattern, daytime sleepiness or snoring Eyes: Denies: change in vision, blurry vision, photophobia, eye discomfort or eye discharge ENMT: Denies: throat pain, enlarged tonsils, hoarseness, mouth pain, oral sores, dry mouth, tinnitus, nasal congestion or post nasal drip Card: Denies: chest pain, palpitations, irregular heart rhythm, edema, swelling of feet/ankles, lightheadedness, syncope, pre-syncope, dyspnea on exertion, orthopnea, leg pain with exertion or acrocyanosis Resp: Denies: dyspnea, productive cough, non-productive cough, wheezing, stridor, pain on inspiration, change in phlegm color, hemoptysis or chest congestion GI: Denies: abdominal pain, nausea, vomiting, hematemesis, coffee ground emesis, dysphagia, heartburn, diarrhea, constipation, bloating, GI cramping, change in bowel habits, pain on defecation, hematochezia or melena : Denies: flank pain, difficulty urinating, dysuria, urinary frequency, urinary urgency, urinary hesitancy, urinary dribbling, difficulty starting urination, change in urine stream, nocturia or hematuria Musc: Denies: neck pain, back pain, extremity pain, joint pain, joint swelling, joint redness, joint stiffness or limited range of motion Neuro: Denies: headache(s), numbness in extremities, weakness in extremities, sensory changes, lack of coordination, difficulty walking, frequent falls, dizziness, vertigo, confusion, Slurred speech present, difficulty communicating thoughts or seizure-like activity Psych: Denies: anxiety, depression, mood swings, panic attacks, hopelessness or irritability Endo: Denies: polyuria, polydipsia, tired all the time, cold intolerance, excessive sweating, flushing or heat intolerance Garett/Lymph: Denies: easy bruising or easy bleeding All/Imm: Denies: tongue swelling, facial swelling or acute wheezing Medications/Allergies Home Medications Medication Instructions Recorded Confirmed Last Taken Type blood-glucose meter,continuous #1 ea 11/26/20 08/08/21 Unknown Rx blood-glucose sensor #3 ea 11/26/20 08/08/21 Unknown Rx blood-glucose transmitter #3 11/26/20 08/08/21 Unknown Rx Blood Glucose Test #100 ea 03/20/21 08/08/21 Unknown Rx blood sugar diagnostic #100 ea 03/20/21 08/08/21 Unknown Rx blood-glucose meter [Blood Glucose #1 ea 03/20/21 08/08/21 Unknown Rx Monitoring] lancets #200 ea 05/17/21 08/08/21 Unknown Rx strips #200 ea 05/17/21 08/08/21 Unknown Rx lancets #200 ea 06/18/21 08/08/21 Unknown Rx strips #1 ea 06/18/21 08/08/21 Unknown Rx insulin aspart U-100 100 unit/mL See Rx Instructions .ROUTE 06/19/21 08/08/21 Unknown Rx (3 mL) subcutaneous pen .COMPLEX #15 ml insulin glargine 100 unit/mL (3 40 unit SUBCUT BID 30 Days #24 ml 06/19/21 08/08/21 Unknown Rx mL) subcutaneous pen Allergies Allergy/AdvReac Type Severity Reaction Status Date / Time promethazine [From Phenergan] Allergy Unknown Verified 05/14/21 11:34 PFSH Acute PFSH: Medical History (Updated 08/08/21 @ 18:30 by Jase Luna MD) DKA (diabetic ketoacidoses) GERD (gastroesophageal reflux disease) History of pancreatitis Hyperglycemia Hypoglycemia due to insulin Long-term insulin use Marijuana use Methamphetamine abuse Nausea & vomiting Noncompliance with diabetes treatment Pancreatitis Type 1 diabetes With recurrent admissions for DKA, severe Uncontrolled type 1 diabetes mellitus Surgical History No pertinent past surgical history Family History Other Diabetes Social History Smoking and tobacco status: current every day smoker Alcohol intake: never Lives independently: Yes Household members: significant other Marital status: Single Current occupational status: unemployed Vitals/I&O/Wt Last Vital Signs Temp 98.3 F 08/08/21 14:48 Pulse 67 08/08/21 16:32 Resp 18 08/08/21 16:32 BP 107/87 08/08/21 14:48 Pulse Ox 97 08/08/21 16:32 08/08/21 08/08/21 08/08/21 06:59 14:59 22:59 Intake Total 6004.802 / 6004.802 Balance 6004.802 / 6004.802 Weight last 48 hrs Weight 51.256 kg Physical Exam Narrative: EXAM NARRATIVE: General: No acute distress, AO x3,dehydrated HEENT: PERRLA, pupils bilaterally equal and reactive Chest: Normal vesicular breath sounds, no added sounds, equal good air entry bilaterally CVS: S1-S2 regular, no murmurs, no tachycardia, no gallops, no rubs Abdomen: Soft, nontender, no organomegaly, bowel sounds present Neuro: No focal deficits, no facial deformity, AO x3, power 5/5 in all limbs Data : 08/09/21 02:04 08/09/21 11:06 A&P Assessment and plan (1) Diabetic keto-acidosis: Status: Acute Qualifiers: Diabetes mellitus complication detail: without coma Diabetes mellitus type: type 1 Qualified Code(s): E10.10 - Type 1 diabetes mellitus with ketoacidosis without coma (2) Noncompliance with diabetes treatment: Status: Acute (3) Nausea & vomiting: Status: Acute Additional A&P Information DKA protocol Insulin drip. BS Q1h NS @75 cc/hr, if BS less than 250 switch to D5NS @ 75 cc/hr. Stop fluids if AA closes. Monitor serum BMPs, mag, Phos every 4 hours NPO Admit to ICU Protonix for PUD Lovenox for DVT PPx Check procal, TIBC, BCx, UA, Ucx, drug screen Attestations Medical Necessity Statement*: For more than 2 MN for DKA Critical Care Time: The high probability of a clinically significant, sudden or life threatening deterioration of the patient's [endocrine] system(s) required my full and direct attention, intervention and personal management. The critical care time is as shown. This time is in addition to time spent performing any reported procedures but includes the following: [x] Data and vital sign review and interpretation [x] Patient assessment, examination and intervention [x] Documentation [x] Medication orders and management Critical Care Time (min): 90 Coding Level of Care Code Acute Health Informatics Instructor for g Fwd Diagnoses Diabetic keto-acidosis E10.10 Diabetes mellitus complication detail: without coma Diabetes mellitus type: type 1 Noncompliance with diabetes treatment Z91.19 Nausea & vomiting R11.2
--- NOTE | 2021-08-08 18:41 | PC.NURSE ---
Patient to unit at 1830, AAOx4, VSS.
[2021-08-08 19:30] LABS: Glucose Point of Care 119 mg/dL (70-110)
[2021-08-08] MEDS: dextrose 5%-sod chloride 0.9% 1,000 ML 75 ML IV (19:46)
[2021-08-08 19:49] LABS: Lactic Sepsis W/Reflex 0.8 mmol/L (0.5-2.2)
[2021-08-08] MEDS: enoxaparin 40 mg/0.4 mL Syringe SUBCUT (19:49)
[2021-08-08] MEDS: famotidine 20 mg/2 mL INJ IVP (19:49)
[2021-08-08 19:50] LABS: Anion Gap 20.2 (5-19); Blood Urea Nitrogen 12 mg/dL (6-20); Calcium 7.8 mg/dL (8.5-10.5); Carbon Dioxide 14 mmol/L (22-29); Chloride 104 mmol/L (98-107); Glomerular Filtration Rate 204.3 mL/min (90-130); Glucose 125 mg/dL (65-115); Magnesium 1.6 mg/dL (1.7-2.3); Osmolality Calculated 279 mOsm/kg (285-295); Phosphorus 2.8 mg/dL (2.5-4.5); Potassium 4.2 mmol/L (3.5-5.1); Sodium 134 mmol/L (136-145)
[2021-08-08 19:57] LABS: Procalcitonin 0.07 ng/mL (0-0.5)
[2021-08-08 20:39] LABS: Glucose Point of Care 103 mg/dL (70-110)
[2021-08-08 21:39] LABS: Glucose Point of Care 78 mg/dL (70-110)
[2021-08-08 22:38] LABS: Glucose Point of Care 70 mg/dL (70-110)
[2021-08-09] VITALS (45 sets, daily range): BP systolic 95–154; BP diastolic 54–111; PULSE 51–120; RESP 0–27; TEMP 36.6–36.8; O2SAT 94–97
[2021-08-09 00:03] LABS: Anion Gap 20.9 (5-19); Blood Urea Nitrogen 11 mg/dL (6-20); Calcium 7.9 mg/dL (8.5-10.5); Carbon Dioxide 15 mmol/L (22-29); Chloride 105 mmol/L (98-107); Glomerular Filtration Rate 165.5 mL/min (90-130); Glucose 67 mg/dL (65-115); Osmolality Calculated 282 mOsm/kg (285-295); Potassium 3.9 mmol/L (3.5-5.1); Sodium 137 mmol/L (136-145)
[2021-08-09 00:20] LABS: Glucose Point of Care 77 mg/dL (70-110)
[2021-08-09 01:32] LABS: Glucose Point of Care 81 mg/dL (70-110)
[2021-08-09 01:36] LABS: Glucose Point of Care 75 mg/dL (70-110)
[2021-08-09 01:58] LABS: Add Urine Microscopic? NO; Glucose Urine UA 4+ (Normal); Protein Urine Neg (Negative); Urine Appearance Clear (CLEAR); Urine Color Yellow (Yellow); pH Urine 5 (5-7)
[2021-08-09 01:59] LABS: Bilirubin Urine Neg (Negative); Blood Urine Neg (Negative); Charge for UA Resulting for Rev; Ketones Urine 3+ (Negative); Leukocyte Esterase Urine Negative (Negative); Nitrate Urine Negative (Negative); Urobilinogen Urine Norm (Negative)
[2021-08-09 02:08] LABS: Amphetamines Screen Urine Negative (Negative); Barbiturates Screen Urine Negative (Negative); Benzodiazepines Screen Urine Negative (Negative); Cocaine Screen Urine Negative (Negative); Opiate Screen Urine Negative (Negative); PCP Screen Urine Negative (Negative); THC Screen Urine Positive (Negative)
[2021-08-09 02:18] LABS: Basophils % 0.3 %; Eosinophils % 0.3 %; Hematocrit 42.2 % (42.0-52.0); Hemoglobin 14.6 g/dL (11.7-16.6); Lymphocytes # 1.3 10^3/uL (0.8-4.8); Lymphocytes % 18.5 %; Mean Corpuscular HGB Conc 34.6 g/dL (30.0-36.0); Mean Corpuscular Hemoglobin 30.6 pg (28.0-34.0); Mean Corpuscular Volume 88.5 fl (80-94); Mean Platelet Volume 11.5 fL (7.4-10.4); Monocytes # 0.6 10^3/uL (0.2-0.9); Monocytes % 8.6 %; Neutrophils # 4.86 10^3/uL (1.8-7.7); Neutrophils % 71.7 %; Nucleated Red Blood Cells % 0 %; Platelet Count 164 10^3/cmm (130-400); Red Blood Count 4.77 10^6/uL (4.1-5.3); Red Cell Distribution Width 12.3 % (12.1-15.1); White Blood Count 6.8 10^3/uL (4.0-10.0)
[2021-08-09 02:31] LABS: Glucose Point of Care 105 mg/dL (70-110)
[2021-08-09 02:32] LABS: Albumin Level 3.7 g/dL (3.5-5.2); Alkaline Phosphatase 53 IU/L (40-130); Blood Urea Nitrogen 11 mg/dL (6-20); Calcium 7.7 mg/dL (8.5-10.5); Carbon Dioxide 12 mmol/L (22-29); Chloride 106 mmol/L (98-107); Globulin 2.1 g/dL (1.3-4.6); Glomerular Filtration Rate 204.3 mL/min (90-130); Glucose 71 mg/dL (65-115); Osmolality Calculated 282 mOsm/kg (285-295); Sodium 137 mmol/L (136-145); Total Bilirubin 0.5 mg/dL (0.15-1.2); Total Protein 5.8 g/dL (6.6-8.7)
[2021-08-09 02:34] LABS: Slide Review Slide Review Perform
[2021-08-09 02:36] LABS: Alanine Aminotransferase 15 U/L (0-41); Anion Gap 23.4 (5-19); Aspartate Amino Transferase 22 U/L (0-40); Potassium 4.4 mmol/L (3.5-5.1)
--- NOTE | 2021-08-09 02:48 | PC.NURSE ---
NURSING NOTE: AT 2130, PT'S BG = 78 AND MAINTAINED IN THE 70-80 RANGE UNTIL 0230 IN THE MORNING. PLACED CALLED TO DR. HANNA AND LET HER KNOW THAT INSULIN GTT RATE ON IV PUMP HAD FALLEN BELOW HARD LIMIT ON PUMP AND RECEIVED ORDERS FOR OK TO SHUT OFF INSULIN GTT AND REDRAW CMP. IF GAP CLOSED, OK TO LEAVE INSULIN GTT OFF/IF NOT, CALL DR. HANNA. PLACED CALL TO DR. HANNA BECAUSE GAP NOT CLOSED. INSULIN GTT RESTARTED AT 0230. PT GIVEN ORANGE JUICE PER ORDERS PER DR. HANNA. SEE MAR FOR TITRATION DETAILS. WILL CONTINUE TO MONITOR.
[2021-08-09 03:41] LABS: Glucose Point of Care 150 mg/dL (70-110)
[2021-08-09 04:36] LABS: Glucose Point of Care 161 mg/dL (70-110)
[2021-08-09 05:33] LABS: Glucose Point of Care 137 mg/dL (70-110)
[2021-08-09] MEDS: famotidine 20 mg/2 mL INJ IVP ×2 (06:24→19:24)
[2021-08-09 06:36] LABS: Glucose Point of Care 125 mg/dL (70-110)
--- NOTE | 2021-08-09 07:09 | PC.NURSE ---
Report received, assessment completed. Pt lying in bed, c/o discomfort to L arm. L arm swollen and tight. Warm compresses in place. Denies any other needs. Insulin gtt infusing and D5 infusing per orders. Will monitor.
[2021-08-09 07:37] LABS: Glucose Point of Care 144 mg/dL (70-110)
--- NOTE | 2021-08-09 07:41 | PC.NURSE ---
Blood glucose below target range, unable to adjust multiplier. Insulin gtt left at current rate. MD notified.
[2021-08-09] MEDS: dextrose 5%-sod chloride 0.9% 1,000 ML 150 ML IV ×2 (08:38→15:55)
[2021-08-09 08:44] LABS: Glucose Point of Care 148 mg/dL (70-110)
[2021-08-09 09:43] LABS: Glucose Point of Care 155 mg/dL (70-110)
[2021-08-09 09:48] LABS: Anion Gap 20.7 (5-19); Blood Urea Nitrogen 10 mg/dL (6-20); Calcium 8.2 mg/dL (8.5-10.5); Carbon Dioxide 16 mmol/L (22-29); Chloride 102 mmol/L (98-107); Glomerular Filtration Rate 165.5 mL/min (90-130); Glucose 138 mg/dL (65-115); Osmolality Calculated 281 mOsm/kg (285-295); Potassium 3.7 mmol/L (3.5-5.1); Sodium 135 mmol/L (136-145)
[2021-08-09 11:02] LABS: Glucose Point of Care 184 mg/dL (70-110)
[2021-08-09 11:46] LABS: Glucose Point of Care 164 mg/dL (70-110)
[2021-08-09 12:06] LABS: Anion Gap 17.6 (5-19); Blood Urea Nitrogen 9 mg/dL (6-20); Calcium 7.9 mg/dL (8.5-10.5); Carbon Dioxide 17 mmol/L (22-29); Chloride 105 mmol/L (98-107); Glomerular Filtration Rate 204.3 mL/min (90-130); Glucose 166 mg/dL (65-115); Osmolality Calculated 284 mOsm/kg (285-295); Potassium 3.6 mmol/L (3.5-5.1); Sodium 136 mmol/L (136-145)
[2021-08-09 12:42] LABS: Glucose Point of Care 178 mg/dL (70-110)
[2021-08-09 13:38] LABS: Glucose Point of Care 167 mg/dL (70-110)
--- NOTE | 2021-08-09 14:21 | P.PN_ITS ---
Subjective Subjective: Interval history: No events overnight. Overnight patient's anion gap was closing blood blood sugars were dropping below 100 so insulin drip was stopped for few hours. On repeat BMP check anion gap was elevated again so insulin drip was restarted. Today morning patient's D5 NS was increased to 150 cc to maintain blood sugars over 100 as anion gap of still elevated. Patient denies any nausea vomiting, headache. Pleasant. Asking when can eat. Vitals/I&O/Wt Last Vital Signs Temp 98.2 F 08/09/21 08:00 Pulse 84 08/09/21 14:00 Resp 18 08/09/21 12:00 BP 128/82 08/09/21 12:00 Pulse Ox 95 08/09/21 08:15 08/08/21 08/09/21 08/09/21 22:59 06:59 14:59 Intake Total 6021.582 / 6021.582 5.127 / 6026.709 971.222 / 971.222 Output Total 550 / 550 500 / 1050 400 / 400 Balance 5471.582 / 5471.582 -494.873 / 4976.709 571.222 / 571.222 Weight last 48 hrs Weight 51.029 kg Weight 51.256 kg Physical Exam Narrative: EXAM NARRATIVE: General: No acute distress, AO x3 HEENT: PERRLA, pupils bilaterally equal and reactive Chest: Normal vesicular breath sounds, no added sounds, equal good air entry bilaterally CVS: S1-S2 regular, no murmurs, no tachycardia, no gallops, no rubs Abdomen: Soft, nontender, no organomegaly, bowel sounds present Neuro: No focal deficits, no facial deformity, AO x3, power 5/5 in all limbs Data : 08/09/21 02:04 08/09/21 11:06 Micro: Microbiology 08/08/21 19:18 Blood Culture - Preliminary Blood SPECIMEN COLLECTED 08/08/21 19:16 Blood Culture - Preliminary Blood SPECIMEN COLLECTED A&P Assessment and plan (1) Diabetic keto-acidosis: Status: Acute Qualifiers: Diabetes mellitus complication detail: without coma Diabetes mellitus type: type 1 Qualified Code(s): E10.10 - Type 1 diabetes mellitus with ketoacidosis without coma (2) Noncompliance with diabetes treatment: Status: Acute (3) Nausea & vomiting: Status: Acute Additional A&P Information DKA protocol Insulin drip. BS Q1h Continue with D5 NS at 150 cc/h. Monitor serum BMPs, mag, Phos every 4 hours for. Keep potassium over 4. NPO. Once anion gap closes will stop the insulin drip and D5 NS and start on carb consistent diet while being covered over with long-acting insulin and subcu insulin. Protonix for PUD Lovenox for DVT PPx Continue with ICU care. Attestations Medical Necessity Statement*: Requires further hospitalization for DKA. Critical Care Time: The high probability of a clinically significant, sudden or life threatening deterioration of the patient's [endocrine, insulin drip] system(s) required my full and direct attention, intervention and personal management. The critical care time is as shown. This time is in addition to time spent performing any reported procedures but includes the following: [x] Data and vital sign review and interpretation [x] Patient assessment, examination and intervention [x] Documentation [x] Medication orders and management Critical Care Time (min): 90 Coding Level of Care Code Acute Account Manager [employer] for g Fwd Diagnoses Diabetic keto-acidosis E10.10 Diabetes mellitus complication detail: without coma Diabetes mellitus type: type 1 Noncompliance with diabetes treatment Z91.19 Nausea & vomiting R11.2
[2021-08-09 14:29] LABS: Glucose Point of Care 163 mg/dL (70-110)
[2021-08-09 15:54] LABS: Glucose Point of Care 171 mg/dL (70-110)
[2021-08-09 16:33] LABS: Anion Gap 13.7 (5-19); Blood Urea Nitrogen 7 mg/dL (6-20); Calcium 7.5 mg/dL (8.5-10.5); Carbon Dioxide 21 mmol/L (22-29); Chloride 107 mmol/L (98-107); Glomerular Filtration Rate 264.3 mL/min (90-130); Glucose 168 mg/dL (65-115); Osmolality Calculated 288 mOsm/kg (285-295); Potassium 3.7 mmol/L (3.5-5.1); Sodium 138 mmol/L (136-145)
[2021-08-09 16:41] LABS: Glucose Point of Care 185 mg/dL (70-110)
--- NOTE | 2021-08-09 16:53 | PC.NURSE ---
Anion gap closed. New orders for diet, accuchecks, IVF and insulin. Pt disconnected from D5 and insulin gtts. Dietary notified of diet change
[2021-08-09] MEDS: insulin glargine 100 units/1 mL 40 UNIT SUBCUT (17:13)
[2021-08-09] MEDS: insulin lispro 100 unit/1 mL SUBCUT ×2 (17:15→21:06)
[2021-08-09] MEDS: sodium chloride 0.9% 1,000 ML 75 ML IV (17:15)
--- NOTE | 2021-08-09 18:04 | PC.NURSE ---
Shift Note Frequent safety and comfort rounds continue. Orders and/or nursing care completed as indicated. Patient monitored for response to intervention and treatment(s). Education provided includes treatment plan, medications and diet. Pt verbalizes understanding. Pt was able to give self a bath earlier. Denies any needs at this time. NS at 75ml/h infusing per orders. Will monitor. Will continue to monitor.
[2021-08-09] MEDS: enoxaparin 40 mg/0.4 mL Syringe SUBCUT (19:24)
[2021-08-09 20:56] LABS: Glucose Point of Care 229 mg/dL (70-110)
[2021-08-10] VITALS (19 sets, daily range): BP systolic 93–127; BP diastolic 49–84; PULSE 62–127; RESP 8–30
[2021-08-10 04:05] LABS: Basophils % 0.6 %; Eosinophils # 0.1 10^3/uL (0.0-0.8); Eosinophils % 2.3 %; Hematocrit 39.4 % (42.0-52.0); Hemoglobin 13.4 g/dL (11.7-16.6); Lymphocytes # 1.1 10^3/uL (0.8-4.8); Lymphocytes % 32.3 %; Mean Corpuscular Hemoglobin 30.9 pg (28.0-34.0); Mean Corpuscular Volume 90.8 fl (80-94); Mean Platelet Volume 10.1 fL (7.4-10.4); Monocytes # 0.4 10^3/uL (0.2-0.9); Monocytes % 12.4 %; Neutrophils # 1.81 10^3/uL (1.8-7.7); Neutrophils % 52.1 %; Nucleated Red Blood Cells % 0 %; Platelet Count 189 10^3/cmm (130-400); Red Blood Count 4.34 10^6/uL (4.1-5.3); Red Cell Distribution Width 12.5 % (12.1-15.1); White Blood Count 3.5 10^3/uL (4.0-10.0)
[2021-08-10 04:27] LABS: Alanine Aminotransferase 12 U/L (0-41); Albumin Level 3.4 g/dL (3.5-5.2); Alkaline Phosphatase 48 IU/L (40-130); Anion Gap 17.1 (5-19); Aspartate Amino Transferase 19 U/L (0-40); Blood Urea Nitrogen 5 mg/dL (6-20); Calcium 7.4 mg/dL (8.5-10.5); Carbon Dioxide 20 mmol/L (22-29); Chloride 107 mmol/L (98-107); Globulin 1.8 g/dL (1.3-4.6); Glomerular Filtration Rate 204.3 mL/min (90-130); Glucose 60 mg/dL (65-115); Osmolality Calculated 287 mOsm/kg (285-295); Potassium 3.1 mmol/L (3.5-5.1); Sodium 141 mmol/L (136-145); Total Bilirubin 0.3 mg/dL (0.15-1.2); Total Protein 5.2 g/dL (6.6-8.7)
[2021-08-10] MEDS: famotidine 20 mg/2 mL INJ IVP (05:49)
[2021-08-10] MEDS: sodium chloride 0.9% 1,000 ML 75 ML IV (05:50)
[2021-08-10] MEDS: potassium chloride ER 20 mEq Tablet 40 MEQ PO (08:37)
[2021-08-10] MEDS: insulin glargine 100 units/1 mL 40 UNIT SUBCUT (08:39)
--- NOTE | 2021-08-10 08:47 | PM.DCS ---
Discharge Providers Date of Admission: 08/08/21 17:12 Date of Discharge: August 10, 2021 Attending Provider at Admission: Jase Luna MD Attending Provider at Discharge: Enmanuel Mariano Primary Care Provider: MARGE Castellano Diagnoses at Discharge Discharge Diagnosis (1) Diabetic keto-acidosis: Status: Acute Qualifiers: Diabetes mellitus complication detail: without coma Diabetes mellitus type: type 1 Qualified Code(s): E10.10 - Type 1 diabetes mellitus with ketoacidosis without coma (2) Noncompliance with diabetes treatment: Status: Acute (3) Nausea & vomiting: Status: Acute Reason for Visit Reason for Visit: HIGH BLOOD SUGAR Hospital Course Hospital Course 26-year-old gentleman with history of recurrent episodes of DKA, with underlying DM 1, which he reports is controlling with insulin pump and continuous glucose monitoring, was admitted for assessment management of DKA on 08/08. Was treated with insulin drip, hydration, electrolyte replacement. Insulin had to be restarted due to repeat elevation of anion gap after 23.4, subsequently decreased to 13.7, was transitioned over to subcutaneous insulin. This morning discussed with him anion gap again worsening up to 17.1, bicarb down to 20, in addition glucose was 60. He received his dose of 40 units of Lantus last night which he states he has been taking at home. This morning subjectively states he is feeling very well, he denies any discomfort, no nausea or abdominal discomfort, he has been eating. He tells me that his insulin pump and glucose monitoring device have been functioning well without any issues. We discussed with him the need for continued close monitoring in the hospital due to hypoglycemia, as well as due to worsening chemistries, with risk of recurrence of DKA, risk of severe hypoglycemia, need of further titration of therapy, further evaluation of electrolytes and possibly other treatments, however, although agreeable during the discussion, subsequently stated he had already called a ride and is leaving home this morning no matter what. He is asked to return to the hospital to resume care due to leaving prematurely, or otherwise to follow-up with primary provider and dish cloth inspector soonest available appointments with additional instructions as below. Physical Exam Const: COMMON NORMALS: no acute distress, patient oriented x3 and alert GENERAL APPEARANCE: cooperative and comfortable ORIENTATION/CONSCIOUSNESS: Yes awake HENMT: COMMON NORMALS: oropharynx normal Neck/C-Spine: COMMON NORMALS: no JVD Resp: COMMON NORMALS: normal respiratory effort and clear to auscultation bilaterally AUSCULTATION: clear to auscultation bilaterally Cardio: COMMON NORMALS: no JVD, regular rhythm, S1 normal heart sound present, S2 normal heart sound present and No murmurs present (Cardio) RHYTHM: regular rhythm HEART SOUNDS: S1 normal heart sound present and S2 normal heart sound present GI: COMMON NORMALS: Normal to inspection, nondistended, normoactive bowel sounds present, Soft to palpation and non-tender PALPATION: Yes Soft to palpation Extremity: COMMON NORMALS: no joint enlargement and no pedal edema Neuro: COMMON NORMALS: patient oriented x3 and moves all extremities SENSORIUM/ORIENTATION: Yes alert Skin: COMMON NORMALS: no rashes or lesions noted GENERAL SKIN EXAM: no rashes or lesions noted Discharge Data Data Completed and Pending: Pending at discharge Category Date Time Status Arterial Blood Ga s W/O [place] Stat Lab 08/08/21 15:15 Results Blood Culture Sta t Lab 08/08/21 19:18 Results Labs from last 24 hours 08/10/21 08/10/21 08/09/21 03:18 03:18 20:52 WBC 3.5 L RBC 4.34 Hgb 13.4 Hct 39.4 L MCV 90.8 MCH 30.9 MCHC 34.0 RDW 12.5 Plt Count 189 MPV 10.1 Neut % (Auto) 52.1 Lymph % (Auto) 32.3 [place] % (Auto) 12.4 Eos % (Auto) 2.3 Baso % (Auto) 0.6 Neut # (Auto) 1.81 Lymph # (Auto) 1.1 [place] # (Auto) 0.4 Eos # (Auto) 0.1 Baso # (Auto) 0.0 Nucleated RBC % (a uto) 0 Nucleated RBCs # 0.0 Sodium 141 Potassium 3.1 L Chloride 107 Carbon Dioxide 20 L Anion Gap 17.1 BUN 5 L Creatinine 0.5 L GFR Calculation 204.3 H Glucose 60 L POC Glucose 229 H Calculated Osmolal ity 287 Calcium 7.4 L Total Bilirubin 0.3 AST 19 ALT 12 Alkaline Phosphata se 48 Total Protein 5.2 L Albumin 3.4 L Globulin 1.8 08/09/21 08/09/21 08/09/21 16:37 15:48 15:37 WBC RBC Hgb Hct MCV MCH MCHC RDW Plt Count MPV Neut % (Auto) Lymph % (Auto) [place] % (Auto) Eos % (Auto) Baso % (Auto) Neut # (Auto) Lymph # (Auto) [place] # (Auto) Eos # (Auto) Baso # (Auto) Nucleated RBC % (a uto) Nucleated RBCs # Sodium 138 Potassium 3.7 Chloride 107 Carbon Dioxide 21 L Anion Gap 13.7 BUN 7 Creatinine 0.4 L GFR Calculation 264.3 H Glucose 168 H POC Glucose 185 H 171 H Calculated Osmolal ity 288 Calcium 7.5 L Total Bilirubin AST ALT Alkaline Phosphata se Total Protein Albumin Globulin 08/09/21 08/09/21 08/09/21 14:26 13:36 12:39 WBC RBC Hgb Hct MCV MCH MCHC RDW Plt Count MPV Neut % (Auto) Lymph % (Auto) [place] % (Auto) Eos % (Auto) Baso % (Auto) Neut # (Auto) Lymph # (Auto) [place] # (Auto) Eos # (Auto) Baso # (Auto) Nucleated RBC % (a uto) Nucleated RBCs # Sodium Potassium Chloride Carbon Dioxide Anion Gap BUN Creatinine GFR Calculation Glucose POC Glucose 163 H 167 H 178 H Calculated Osmolal ity Calcium Total Bilirubin AST ALT Alkaline Phosphata se Total Protein Albumin Globulin 08/09/21 08/09/21 08/09/21 11:44 11:06 11:00 WBC RBC Hgb Hct MCV MCH MCHC RDW Plt Count MPV Neut % (Auto) Lymph % (Auto) [place] % (Auto) Eos % (Auto) Baso % (Auto) Neut # (Auto) Lymph # (Auto) [place] # (Auto) Eos # (Auto) Baso # (Auto) Nucleated RBC % (a uto) Nucleated RBCs # Sodium 136 Potassium 3.6 Chloride 105 Carbon Dioxide 17 L Anion Gap 17.6 BUN 9 Creatinine 0.5 L GFR Calculation 204.3 H Glucose 166 H POC Glucose 164 H 184 H Calculated Osmolal ity 284 L Calcium 7.9 L Total Bilirubin AST ALT Alkaline Phosphata se Total Protein Albumin Globulin 08/09/21 08/09/21 09:38 07:54 WBC RBC Hgb Hct MCV MCH MCHC RDW Plt Count MPV Neut % (Auto) Lymph % (Auto) [place] % (Auto) Eos % (Auto) Baso % (Auto) Neut # (Auto) Lymph # (Auto) [place] # (Auto) Eos # (Auto) Baso # (Auto) Nucleated RBC % (a uto) Nucleated RBCs # Sodium 135 L Potassium 3.7 Chloride 102 Carbon Dioxide 16 L Anion Gap 20.7 H BUN 10 Creatinine 0.6 L GFR Calculation 165.5 H Glucose 138 H POC Glucose 155 H Calculated Osmolal ity 281 L Calcium 8.2 L Total Bilirubin AST ALT Alkaline Phosphata se Total Protein Albumin Globulin Vitals: Last Vital Signs Temp 98 F 08/09/21 16:00 Pulse 71 08/10/21 05:47 Resp 16 08/10/21 05:30 BP 97/61 08/10/21 05:30 Pulse Ox 95 08/09/21 08:15 Discharge Plan Discharge Patient Disposition: Left Against Medical Advice Condition: Stable Prescriptions: Continued (DME) Dexcom G6 Electronic Gluing Machine Operator Misc See Rx Instructions .ROUTE .MEDSUPPLY Qty: 1 RF: 0 (DME) Dexcom G6 Sensor Device See Rx Instructions .ROUTE .MEDSUPPLY Qty: 3 RF: 3 (DME) Dexcom G6 Transmitter Device See Rx Instructions .ROUTE .MEDSUPPLY Qty: 3 RF: 3 (DME) strips See Rx Instructions .Route .MEDSUPPLY Qty: 1 RF: 3 (DME) lancets Misc See Rx Instructions .Route Qty: 200 RF: 3 Lantus Solostar U-100 Insulin 100 unit/mL (3 mL) insulin pen 40 unit SUBCUT BID 30 Days Qty: 24 RF: 3 insulin aspart U-100 [Novolog Flexpen U-100 Insulin] 100 unit/mL (3 mL) insulin pen See Rx Instructions .ROUTE .COMPLEX Qty: 15 RF: 3 (DME) blood sugar diagnostic Strip See Rx Instructions .Route Qty: 100 RF: 0 (DME) Blood Glucose Test Strip See Rx Instructions .Route Qty: 100 RF: 0 (DME) blood-glucose meter [Blood Glucose Monitoring] Kit See Rx Instructions .Route Qty: 1 RF: 0 (DME) strips See Rx Instructions .Route .MEDSUPPLY Qty: 200 RF: 3 (DME) lancets See Rx Instructions .Route .MEDSUPPLY Qty: 200 RF: 1 Discharge Orders: Discharge Order (Routine); Ordered 08/10/21 Ordered By: Enmanuel Mariano Referrals: Earlene Titus FNP-C [Primary Care Provider] - 1-3 days Evelin Metz MD [Physician] - 1-3 days Discharge Diet: Diabetic Discharge Activity: Increase activity as tolerated Patient Instructions: Against Medical Advice (DC) Activity Restrictions/Additional Instructions: Please note that you are leaving the hospital prematurely. As per discussion this morning your laboratory numbers have worsened this morning, and you are at risk of going back into ketoacidosis, with bicarbonate decreasing to 20, anion gap increasing to 17.1, requiring close monitoring in the hospital due to the possible life-threatening condition. Please note also that your glucose this morning was low at 60, and although better at 118 on recheck, your blood glucose needs further close monitoring due to risk of recurrence of hypoglycemia, severe hypoglycemia, risk of severe brain damage and other complications. Please return to the hospital ER to resume your care at any time. Otherwise please follow-up with your primary provider and dish cloth inspector at soonest available appointments. Please monitor your blood glucose at least 5-6 times a day, write down values to bring to your appointments. ? Your glucose (sugar) goals are: 80-130 mg/dL range for now ? Check blood sugar before each meal and at bedtime OR if you have symptoms of low sugar (weakness, fatigue, sweats, dizziness) Please continue insulin without interruptions, continue sliding scale as per instructions by your dish cloth inspector when sugars are high to avoid diabetic ketoacidosis. If eating a high carbohydrate meal or a full meal add 5 units to the above scale Do not take novolog more frequently than 4 hours as it will add up and cause low blood sugar. Check blood sugar before meals or 2 hours after meals, unless having symptoms of hypoglycemia. Blood sugars 2 hours after you eat should be under 180, if they are staying higher than that let us know I will adjust your regimen If you have a low below 80 after taking the above regimen reduce it by 2 units of recommended amount for each meal and let us know -Eat less than 150 grams of carbohydrates per day, 40 grams per meals, and 2 snacks 15 gram each are ok OTHER INSTRUCTIONS: ? Always have with you glucose tablets and a pack of peanut butter crackers, in case you have a low sugar (weakness, fatigue, sweats, dizziness). Get glucagon emergency kit to have for low sugar emergencies and you cannot eat/drink to get sugar up. ? LANTUS is your long-acting insulin (covers your sugars for 24 hours). Lantus dose is working right for you if your blood sugar readings when you wake up (before breakfast) are consistently in target range. ? NOVOLOG is your short-acting insulin (lasts about 4-5 hours) and is used to cover meals or high sugars Discharge Attestations Time Spent in Discharge Care*: greater than 30 min Status at Discharge: Cognitive status at discharge: cognitively intact, Behavioral status at discharge: cooperative, Quality Metrics Clinical Quality Measures During this hospital stay, did patient experience: None Coding Level of Care Code Acute Chg FW DC note Diagnoses Diabetic keto-acidosis E10.10 Diabetes mellitus complication detail: without coma Diabetes mellitus type: type 1 Noncompliance with diabetes treatment Z91.19 Nausea & vomiting R11.2
--- NOTE | 2021-08-10 10:02 | PC.NURSE ---
AMA Patient wanted to leave AMA, this nurse educated patient on the importance of continuing treatment in the hospital. Patient verbalized the understanding of the risk associated with leaving AMA and still wanted to leave. Dr. Mariano notified. This nurse was able to give patient oral potassium replacement and dly lantus dose per physician's orders before leaving AMA. Appointment was set up for patient with Dr. Metz, patient notified. IV removed, catheter intact. Pressure dressing applied, patient tolerated well. Patient accompanied to POV by this nurse, physician notified of time of AMA.
[2021-08-10 12:08] LABS: Glucose Point of Care 118 mg/dL (70-110)
[2021-08-14 18:41] LABS: Oxygen Device ROOM AIR
== END 2021-08-10 09:45 | disposition left against medical advice (07) | DRG 639 ==
LOC: ER 17:11 → ICU 17:42
PROVIDERS: Admitting Provider Student in an Organized Health Care Education/Training Program; Emergency Provider Emergency Medicine; PCP Nurse Practitioner Family; Visit Provider Internal Medicine
DX: E10.10 Type 1 diabetes mellitus with ketoacidosis without coma (principal); Z96.41 Presence of insulin pump (external) (internal); K21.9 Gastro-esophageal reflux disease without esophagitis; F12.90 Cannabis use, unspecified, uncomplicated; F15.10 Other stimulant abuse, uncomplicated; Z91.14 Patient's other noncompliance with medication regimen; F17.210 Nicotine dependence, cigarettes, uncomplicated
CPT/HCPCS: 36415; 36416; 36600; 80048; 80053; 80306; 81003; 82009; 82803; 82962; 83605; 83690; 83735; 84100; 84145; 85025; 87040; 94664; 96361; 96365; 96372; 96375; 99285; J1650; J1815 ×2; J2405; J3490; J7030; J7050

== ENCOUNTER 2021-09-02 18:53 | Inpatient (IN) | payer MEDICARE, MEDICAID, SELFPAY ==
[2021-09-02 19:06] VITALS: BP 132/89; PULSE 126; RESP 19; O2SAT 97; BMI 25.0
--- NOTE | 2021-09-02 19:27 | ECG_ITS ---
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 Measurements Intervals [place] Rate: 124 P: 69 HI: 130 QRS: 71 QRSD: 85 T: 51 QT: 289 QTc: 415 Interpretive Statements SINUS TACHYCARDIA ABNORMAL RHYTHM ECG Compared to ECG 05/29/2021 22:42:40 Short HI interval no longer present Electronically Signed On 09-02-2021 20:47:30 TICKET WORKER by Zuleyma Llanos M.D. [id number]
--- NOTE | 2021-09-02 19:29 | W.ED.RECABL ---
HPI - Recheck/Abnormal Lab/Rx General: Chief Complaint: Recheck/Abnormal Lab/Rx Stated Complaint: N/V/ABD PAIN HYPERGLYCEMIA Time Seen by Provider: 09/02/21 19:11 Source: patient Mode of arrival: EMS Limitations: altered mental status History of Present Illness: HPI narrative: 26 year old with type 1 diabetes brought in by EMS with nausea, vomiting, hyperglycemia, altered mental status. Reports that his symptoms started around 11:00 this morning. Last dose of insulin was this morning, does not know how much. Diffuse abdominal pain Review of Systems General: Reports: ROS unobtainable due to mental status Const: Reports: change in appetite, fatigue, malaise and diaphoresis; Denies: fever(s), chills or body aches Eyes: Denies: change in vision or blurry vision Resp: Denies: productive cough, non-productive cough or wheezing GI: Reports: abdominal pain, nausea and vomiting Skin/Breast: Denies: rash, pruritus or erythema Endo: Reports: polyuria and polydipsia PFSH ED PFSH: Medical History DKA (diabetic ketoacidoses) GERD (gastroesophageal reflux disease) History of pancreatitis Hyperglycemia Hypoglycemia due to insulin Long-term insulin use Marijuana use Methamphetamine abuse Nausea & vomiting Noncompliance with diabetes treatment Pancreatitis Type 1 diabetes With recurrent admissions for DKA, severe Uncontrolled type 1 diabetes mellitus Surgical History No pertinent past surgical history Family History Other Diabetes Social History Smoking and tobacco status: current every day smoker Alcohol intake: never Lives independently: Yes Household members: significant other Marital status: Single Current occupational status: unemployed Physical Exam Const: EXAM LIMITATIONS: altered mental status GENERAL APPEARANCE: in distress, disheveled, lethargic and ill appearing; no odor of alcohol detected ORIENTATION/CONSCIOUSNESS: Yes lethargic HENMT: COMMON NORMALS: normocephalic and atraumatic HEAD & SCALP: normocephalic and atraumatic FACE & SINUS: normal facial exam and face symmetric Eye: COMMON NORMALS: Equal, round and reactive pupils present, EOMs intact bilaterally and no scleral icterus PUPIL: Yes Equal, round and reactive pupils present Resp: EFFORT & INSPECTION: Yes tachypneic and No respiratory distress AUSCULTATION: no rhonchi and no wheezes Cardio: RATE: tachycardic GI: COMMON NORMALS: Normal to inspection, nondistended, normoactive bowel sounds present Extremity: COMMON NORMALS: full ROM and no calf tenderness GENERAL: Yes normal exam except as noted Neuro: LISA COMA SCALE: document GCS findings Lisa coma scale eye opening: To sound [place] coma scale verbal response: Confused [place] coma scale motor response: Obey commands [place] coma scale total score: 13 SENSORIUM/ORIENTATION: Yes lethargic SPEECH: abnormal speech Details: slurred Skin: COMMON NORMALS: no rashes or lesions noted and no wounds GENERAL SKIN EXAM: no rashes or lesions noted, dry skin and no jaundice Course Vital Signs: Vital signs: Vital Signs Temperature 98.7 F 09/02/21 22:02 Pulse Rate 148 H 09/02/21 23:41 Respiratory Rate 21 H 09/02/21 23:41 Blood Pressure 110/56 09/02/21 23:41 Pulse Oximetry 98 09/02/21 23:41 MDM - Recheck/Abnormal Lab/Rx MDM Narrative: Medical decision making narrative: 26-year-old male with type 1 diabetes, presenting in acute DKA, blood sugars in the mid 500s pH 6.998, anion gap 44, bicarb 4: NS bolus x2 Potassium 7.1; 15 units regular insulin IVx 1 Insulin infusion initiated, every hour glucose checks, q3hr chemistry Antiemetics, Called to discuss with Dr. Arevalo, hospitalist on-call, she is familiar with this patient. No ICU beds in house right now. [facility]arest available [facility] bed [facility] in [facility]: The patient and his mother decline being transferred that far away. Plan to admit here to the ICU, hold in ED until a bed opens up. Medical Records: Attestation: I reviewed the patient's medical records. Lab Data: Attestation: I reviewed the patient's lab results. Labs: Lab Results 09/02/21 09/02/21 09/02/21 19:30 19:30 19:30 WBC 15.6 10^3/uL H 10 ^3/uL (4.0-10.0) RBC 5.71 10^6/uL H 10 ^6/uL (4.1-5.3) Hgb 17.4 g/dL H g/dL (11.7-16.6) Hct 54.8 % H % (42.0-52.0) MCV 96.0 fl H fl (80-94) MCH 30.5 pg pg (28.0-34.0) MCHC 31.8 g/dL g/dL (30.0-36.0) RDW 12.6 % % (12.1-15.1) Plt Count 277 10^3/cmm 10^3 /cmm (130-400) MPV 11.1 fL H fL (7.4-10.4) Neut % (Auto) 91.0 % % Lymph % (Auto) 4.3 % % [place] % (Auto) 1.7 % % Eos % (Auto) 0.0 % % Baso % (Auto) 0.8 % % Neut # (Auto) 14.19 10^3/uL H 1 0^3/uL (1.8-7.7) Lymph # (Auto) 0.7 10^3/uL L 10^ 3/uL (0.8-4.8) [place] # (Auto) 0.3 10^3/uL 10^3/ uL (0.2-0.9) Eos # (Auto) 0.0 10^3/uL 10^3/ uL (0.0-0.8) Baso # (Auto) 0.1 10^3/uL 10^3/ uL (0.0-0.1) Nucleated RBC % (a uto) 0 % % Nucleated RBCs # 0.0 /100WBC /100W BC Specimen Type Sample Site ABG pH ABG pCO2 ABG pO2 ABG HCO3 ABG Base Excess Hasmukh Test VBG pH VBG pCO2 VBG pO2 VBG HCO3 VBG Base Excess VBG Hematocrit Hematocrit O2 Delivery Device Insulation Extruder Operator ID Sodium Cancelled Potassium Cancelled Chloride Cancelled Carbon Dioxide Cancelled Anion Gap Cancelled BUN Cancelled Creatinine Cancelled GFR Calculation Cancelled Glucose Cancelled POC Glucose Calculated Osmolal ity Cancelled Lactic Acid Lactic Acid (Sepsi s) Calcium Cancelled Phosphorus Cancelled Magnesium Cancelled Total Bilirubin Cancelled AST Cancelled ALT Cancelled Alkaline Phosphata se Cancelled Total Protein Cancelled Albumin Cancelled Globulin Cancelled Lipase Cancelled Urine Color Urine Appearance Urine pH Ur Specific Gravit y Urine Protein Urine Glucose (UA) Urine Ketones Urine Blood Urine Nitrate Urine Bilirubin Urine Urobilinogen Ur Leukocyte Mini ase Urine RBC Urine WBC Ur Squamous Epith Cells Amorphous Sediment Urine Bacteria Urine Opiates Scre en Ur Barbiturates Sc reen Ur Phencyclidine S crn Ur Amphetamines Sc reen U Benzodiazepines Scrn Urine Cocaine Scre en U Marijuana (THC) Screen Serum Ketones Positive H (Negative) SARS-CoV-2 Ag (Rap id) 09/02/21 09/02/21 09/02/21 19:30 19:35 19:42 WBC RBC Hgb Hct MCV MCH MCHC RDW Plt Count MPV Neut % (Auto) Lymph % (Auto) [place] % (Auto) Eos % (Auto) Baso % (Auto) Neut # (Auto) Lymph # (Auto) [place] # (Auto) Eos # (Auto) Baso # (Auto) Nucleated RBC % (a uto) Nucleated RBCs # Specimen Type Sample Site ABG pH ABG pCO2 ABG pO2 ABG HCO3 ABG Base Excess Hasmukh Test VBG pH VBG pCO2 VBG pO2 VBG HCO3 VBG Base Excess VBG Hematocrit Hematocrit O2 Delivery Device Insulation Extruder Operator ID Sodium Potassium Chloride Carbon Dioxide Anion Gap BUN Creatinine GFR Calculation Glucose POC Glucose 560 mg/dL H* mg/d L (70-110) Calculated Osmolal ity Lactic Acid 2.9 mmol/L H mmol /L (0.5-2.2) Lactic Acid (Sepsi s) Calcium Phosphorus Magnesium Total Bilirubin AST ALT Alkaline Phosphata se Total Protein Albumin Globulin Lipase Urine Color Yellow (Yellow) Urine Appearance Clear (CLEAR) Urine pH 5 (5-7) Ur Specific Gravit y 1.025 (1.005-1.030) Urine Protein 1+ H (Negative) Urine Glucose (UA) 4+ H (Normal) Urine Ketones 3+ H (Negative) Urine Blood Neg (Negative) Urine Nitrate Negative (Negative) Urine Bilirubin Neg (Negative) Urine Urobilinogen Norm mg/dL mg/dL (Negative) Ur Leukocyte Mini ase Negative (Negative) Urine RBC None /hpf /hpf (0-2) Urine WBC None /hpf /hpf (0-5) Ur Squamous Epith Cells None /hpf /hpf (0-5) Amorphous Sediment Not Reportable Urine Bacteria None /hpf /hpf (NONE) Urine Opiates Scre en Ur Barbiturates Sc reen Ur Phencyclidine S crn Ur Amphetamines Sc reen U Benzodiazepines Scrn Urine Cocaine Scre en U Marijuana (THC) Screen Serum Ketones SARS-CoV-2 Ag (Rap id) 09/02/21 09/02/21 09/02/21 19:42 20:20 20:30 WBC RBC Hgb Hct MCV MCH MCHC RDW Plt Count MPV Neut % (Auto) Lymph % (Auto) [place] % (Auto) Eos % (Auto) Baso % (Auto) Neut # (Auto) Lymph # (Auto) [place] # (Auto) Eos # (Auto) Baso # (Auto) Nucleated RBC % (a uto) Nucleated RBCs # Specimen Type Arterial Sample Site Brachial, right ABG pH 7.00 L* (7.35-7.45) ABG pCO2 16.6 mmHg L* mmHg (35-45) ABG pO2 72.8 mmHg L mmHg (80.0-100.0) ABG HCO3 4.1 mmol/L L mmol /L (22-26) ABG Base Excess -25.6 mmol/L L mm ol/L (-2.0-2.0) Hasmukh Test Pos VBG pH 7.00 L* (7.32-7.42) VBG pCO2 16.6 mmHg L* mmHg (41-51) VBG pO2 72.8 mmHg H mmHg (25-40) VBG HCO3 4.1 mmol/L L mmol /L (24-28) VBG Base Excess -25.6 mmol/L L mm ol/L (-3.0-3.0) VBG Hematocrit 52.0 % % (42-52) Hematocrit 52.0 % % (42-52) O2 Delivery Device Room air Insulation Extruder Operator ID Buttr Sodium 133 mmol/L L mmol /L (136-145) Potassium 7.1 mmol/L H* mmo l/L (3.5-5.1) Chloride 93 mmol/L L mmol/ L (98-107) Carbon Dioxide 3 mmol/L L* mmol/ L (22-29) Anion Gap 44.1 H (5-19) BUN 26 mg/dL H mg/dL (6-20) Creatinine 1.1 mg/dL mg/dL (0.7-1.2) GFR Calculation 82.2 mL/min L mL/ min (90-130) Glucose 594 mg/dL H* mg/d L (65-115) POC Glucose Calculated Osmolal ity 308 mOsm/kg H mOs m/kg (285-295) Lactic Acid Lactic Acid (Sepsi s) Calcium 8.5 mg/dL mg/dL (8.5-10.5) Phosphorus 8.0 mg/dL H* mg/d L (2.5-4.5) Magnesium 2.3 mg/dL mg/dL (1.7-2.3) Total Bilirubin 0.3 mg/dL mg/dL (0.15-1.2) AST 16 U/L U/L (0-40) ALT 18 U/L U/L (0-41) Alkaline Phosphata se 103 IU/L IU/L (40-130) Total Protein 8.2 g/dL g/dL (6.6-8.7) Albumin 4.8 g/dL g/dL (3.5-5.2) Globulin 3.4 g/dL g/dL (1.3-4.6) Lipase Urine Color Urine Appearance Urine pH Ur Specific Gravit y Urine Protein Urine Glucose (UA) Urine Ketones Urine Blood Urine Nitrate Urine Bilirubin Urine Urobilinogen Ur Leukocyte Mini ase Urine RBC Urine WBC Ur Squamous Epith Cells Amorphous Sediment Urine Bacteria Urine Opiates Scre en Negative ng/mL ng /mL (Negative) Ur Barbiturates Sc reen Negative ng/mL ng /mL (Negative) Ur Phencyclidine S crn Negative ng/mL ng /mL (Negative) Ur Amphetamines Sc reen Negative ng/mL ng /mL (Negative) U Benzodiazepines Scrn Negative ng/mL ng /mL (Negative) Urine Cocaine Scre en Negative ng/mL ng /mL (Negative) U Marijuana (THC) Screen Negative ng/mL ng /mL (Negative) Serum Ketones SARS-CoV-2 Ag (Rap id) 09/02/21 09/02/21 09/02/21 21:46 21:53 22:36 WBC RBC Hgb Hct MCV MCH MCHC RDW Plt Count MPV Neut % (Auto) Lymph % (Auto) [place] % (Auto) Eos % (Auto) Baso % (Auto) Neut # (Auto) Lymph # (Auto) [place] # (Auto) Eos # (Auto) Baso # (Auto) Nucleated RBC % (a uto) Nucleated RBCs # Specimen Type Sample Site ABG pH ABG pCO2 ABG pO2 ABG HCO3 ABG Base Excess Hasmukh Test VBG pH VBG pCO2 VBG pO2 VBG HCO3 VBG Base Excess VBG Hematocrit Hematocrit O2 Delivery Device Insulation Extruder Operator ID Sodium Potassium Chloride Carbon Dioxide Anion Gap BUN Creatinine GFR Calculation Glucose POC Glucose 520 mg/dL H* mg/d L (70-110) Calculated Osmolal ity Lactic Acid Lactic Acid (Sepsi s) 2.1 mmol/L mmol/L (0.5-2.2) Calcium Phosphorus Magnesium Total Bilirubin AST ALT Alkaline Phosphata se Total Protein Albumin Globulin Lipase Urine Color Urine Appearance Urine pH Ur Specific Gravit y Urine Protein Urine Glucose (UA) Urine Ketones Urine Blood Urine Nitrate Urine Bilirubin Urine Urobilinogen Ur Leukocyte Mini ase Urine RBC Urine WBC Ur Squamous Epith Cells Amorphous Sediment Urine Bacteria Urine Opiates Scre en Ur Barbiturates Sc reen Ur Phencyclidine S crn Ur Amphetamines Sc reen U Benzodiazepines Scrn Urine Cocaine Scre en U Marijuana (THC) Screen Serum Ketones SARS-CoV-2 Ag (Rap id) Negative (Negative) 09/02/21 23:40 WBC RBC Hgb Hct MCV MCH MCHC RDW Plt Count MPV Neut % (Auto) Lymph % (Auto) [place] % (Auto) Eos % (Auto) Baso % (Auto) Neut # (Auto) Lymph # (Auto) [place] # (Auto) Eos # (Auto) Baso # (Auto) Nucleated RBC % (a uto) Nucleated RBCs # Specimen Type Sample Site ABG pH ABG pCO2 ABG pO2 ABG HCO3 ABG Base Excess Hasmukh Test VBG pH VBG pCO2 VBG pO2 VBG HCO3 VBG Base Excess VBG Hematocrit Hematocrit O2 Delivery Device Insulation Extruder Operator ID Sodium Potassium Chloride Carbon Dioxide Anion Gap BUN Creatinine GFR Calculation Glucose POC Glucose 410 mg/dL H mg/dL (70-110) Calculated Osmolal ity Lactic Acid Lactic Acid (Sepsi s) Calcium Phosphorus Magnesium Total Bilirubin AST ALT Alkaline Phosphata se Total Protein Albumin Globulin Lipase Urine Color Urine Appearance Urine pH Ur Specific Gravit y Urine Protein Urine Glucose (UA) Urine Ketones Urine Blood Urine Nitrate Urine Bilirubin Urine Urobilinogen Ur Leukocyte Mini ase Urine RBC Urine WBC Ur Squamous Epith Cells Amorphous Sediment Urine Bacteria Urine Opiates Scre en Ur Barbiturates Sc reen Ur Phencyclidine S crn Ur Amphetamines Sc reen U Benzodiazepines Scrn Urine Cocaine Scre en U Marijuana (THC) Screen Serum Ketones SARS-CoV-2 Ag (Rap id) Discharge Plan Discharge Patient Disposition: Admitted As Inpatient Clinical Impression: Diabetic keto-acidosis Qualifiers: Diabetes mellitus type: type 1 Diabetes mellitus complication detail: without coma Qualified Code(s): E10.10 - Type 1 diabetes mellitus with ketoacidosis without coma Condition: Stable Coding Level of Care Code ED 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
[2021-09-02] MEDS: ondansetron 2 mg/ML SDV 2 mL 4 MG IVP (19:34)
[2021-09-02 19:35] VITALS: BP 132/89; PULSE 119; RESP 24; O2SAT 95
[2021-09-02 19:37] LABS: Glucose Point of Care 560 mg/dL (70-110)
[2021-09-02 19:47] LABS: Basophils # 0.1 10^3/uL (0.0-0.1); Basophils % 0.8 %; Hematocrit 54.8 % (42.0-52.0); Hemoglobin 17.4 g/dL (11.7-16.6); Lymphocytes # 0.7 10^3/uL (0.8-4.8); Lymphocytes % 4.3 %; Mean Corpuscular HGB Conc 31.8 g/dL (30.0-36.0); Mean Corpuscular Hemoglobin 30.5 pg (28.0-34.0); Mean Platelet Volume 11.1 fL (7.4-10.4); Monocytes # 0.3 10^3/uL (0.2-0.9); Monocytes % 1.7 %; Neutrophils # 14.19 10^3/uL (1.8-7.7); Nucleated Red Blood Cells % 0 %; Platelet Count 277 10^3/cmm (130-400); Red Blood Count 5.71 10^6/uL (4.1-5.3); Red Cell Distribution Width 12.6 % (12.1-15.1); White Blood Count 15.6 10^3/uL (4.0-10.0)
[2021-09-02] MEDS: sodium chloride 0.9% 1,000 ML 999 ML IV ×2 (19:59→21:56)
[2021-09-02 20:08] LABS: Protein Urine 1+ (Negative); Specific Gravity, Urine 1.025 (1.005-1.030); Urine Appearance Clear (CLEAR); Urine Color Yellow (Yellow); pH Urine 5 (5-7)
[2021-09-02 20:09] LABS: Add Urine Culture? No; Add Urine Microscopic? YES; Bilirubin Urine Neg (Negative); Blood Urine Neg (Negative); Glucose Urine UA 4+ (Normal); Ketones Urine 3+ (Negative); Leukocyte Esterase Urine Negative (Negative); Nitrate Urine Negative (Negative); Urobilinogen Urine Norm (Negative)
[2021-09-02 20:10] LABS: Ketone (Acetest) Serum Positive (Negative)
[2021-09-02 20:10] LABS: Amphetamines Screen Urine Negative (Negative); Barbiturates Screen Urine Negative (Negative); Benzodiazepines Screen Urine Negative (Negative); Cocaine Screen Urine Negative (Negative); Opiate Screen Urine Negative (Negative); PCP Screen Urine Negative (Negative); THC Screen Urine Negative (Negative)
[2021-09-02 20:14] LABS: Lactic Sepsis W/Reflex 2.9 mmol/L (0.5-2.2)
[2021-09-02 20:41] LABS: Base Excess ABG -25.6 mmol/L (-2.0-2.0); Base Excess VBG -25.6 mmol/L (-3.0-3.0); Blood Gas Allen Test Pos; Blood Gas Sample Site Brachial, right; Blood Gas Sample Type Arterial; HCO3 ABG 4.1 mmol/L (22-26); HCO3 VBG 4.1 mmol/L (24-28); Oxygen Device ROOM AIR; PO2 ABG 72.8 mmHg (80.0-100.0); PO2 VBG 72.8 mmHg (25-40)
[2021-09-02 20:43] LABS: Alanine Aminotransferase 18 U/L (0-41); Albumin Level 4.8 g/dL (3.5-5.2); Alkaline Phosphatase 103 IU/L (40-130); Blood Urea Nitrogen 26 mg/dL (6-20); Calcium 8.5 mg/dL (8.5-10.5); Chloride 93 mmol/L (98-107); Globulin 3.4 g/dL (1.3-4.6); Glomerular Filtration Rate 82.2 mL/min (90-130); Magnesium 2.3 mg/dL (1.7-2.3); Osmolality Calculated 308 mOsm/kg (285-295); Sodium 133 mmol/L (136-145); Total Bilirubin 0.3 mg/dL (0.15-1.2); Total Protein 8.2 g/dL (6.6-8.7)
[2021-09-02 20:47] LABS: Anion Gap 44.1 (5-19); Aspartate Amino Transferase 16 U/L (0-40); Carbon Dioxide 3 mmol/L (22-29); Glucose 594 mg/dL (65-115); Potassium 7.1 mmol/L (3.5-5.1)
[2021-09-02 20:50] LABS: ABG PCO2 16.6 mmHg (35-45); PCO2 VBG 16.6 mmHg (41-51)
[2021-09-02] MEDS: LORazepam 2 mg/mL INJ 1 mL 1 MG IVP (21:47)
[2021-09-02 21:49] LABS: Reflex Lactate Order REFLEX LACTIC ORDERD
[2021-09-02] MEDS: insulin regular-human 100 units/1 mL 15 UNIT IVP (21:56)
[2021-09-02] MEDS: insulin regular-human 250 UNIT in sodium chloride 0.9% 250 ML 13 UNIT IV (21:58)
[2021-09-02 22:02] VITALS: BP 111/50; PULSE 137; RESP 18; TEMP 37.1; O2SAT 99
[2021-09-02 22:06] LABS: Glucose Point of Care 520 mg/dL (70-110)
[2021-09-02 22:25] LABS: SARS Covid-2 Antigen Negative (Negative)
[2021-09-02 22:56] LABS: Lactic Acid level (Lactate) 2.1 mmol/L (0.5-2.2)
[2021-09-02 23:41] VITALS: BP 110/56; PULSE 148; RESP 21; O2SAT 98
[2021-09-02 23:43] LABS: Glucose Point of Care 410 mg/dL (70-110)
[2021-09-03] VITALS (85 sets, daily range): BP systolic 85–132; BP diastolic 53–94; PULSE 20–144; RESP 12–32; TEMP 36.5; O2SAT 72–100
[2021-09-03 00:08] LABS: Blood Urea Nitrogen 28 mg/dL (6-20); Calcium 8.3 mg/dL (8.5-10.5); Chloride 101 mmol/L (98-107); Glomerular Filtration Rate 62.3 mL/min (90-130); Osmolality Calculated 317 mOsm/kg (285-295); Sodium 139 mmol/L (136-145)
--- NOTE | 2021-09-03 00:09 | PM.HP ---
Providers/Chief Complaint Admitting Physician: Xiomara Arevalo MD Primary Care Provider: MARGE Castellano Chief Complaint: N/V/ABD PAIN HYPERGLYCEMIA History of Present Illness Salvatore Ott is a 26 year old male well-known to the medicine service due to a history of type 1 diabetes mellitus, recurrent hospital admissions for DKA, most recently discharged from the hospital on August 10, 2021. Returns today with significant nausea vomiting altered mental status and signs and symptoms of diabetic ketoacidosis. Anion gap of 44, ABG with severe metabolic acidosis positive serum ketones, blood sugar in excess of 590, hyperkalemia with potassium of 7.1. He has poorly controlled diabetes mellitus, questionable compliance with his insulin regimen. Patient has been started on insulin infusion in the emergency room, acidosis and anion gap are slowly improving, at the time of my assessment, patient is more awake alert and responsive since first arrival at the ER. He is able to correctly tell me his name age date of , is oriented x3, asking for sips of water or ice chips. States feeling much improved. Review of Systems General: Reports: 10 or more systems reviewed and unremarkable except in HPI and below Const: Denies: fever(s), chills or body aches Eyes: Denies: change in vision, blurry vision or photophobia ENMT: Reports: hoarseness; Denies: throat pain, enlarged tonsils, odynophagia or nasal congestion Card: Denies: chest pain, palpitations, irregular heart rhythm, edema, swelling of feet/ankles, lightheadedness, pre-syncope, dyspnea on exertion or orthopnea Resp: Denies: dyspnea, productive cough, non-productive cough, wheezing, stridor, pain on inspiration, change in phlegm color, hemoptysis or chest congestion GI: Denies: abdominal pain, nausea, vomiting, hematemesis, coffee ground emesis, dysphagia, heartburn, diarrhea, constipation, GI cramping, change in stool character, hematochezia or melena : Denies: flank pain, dysuria, urinary frequency, urinary urgency, urinary hesitancy or hematuria Musc: Denies: neck pain, back pain, extremity pain, joint swelling, joint warmth or deformity Neuro: Denies: headache(s), numbness in extremities, weakness in extremities, sensory changes, difficulty walking, frequent falls, dizziness, vertigo, behavioral changes, Slurred speech present or seizure-like activity Psych: Denies: anxiety, depression, suicidal ideation or homicidal ideation Endo: Denies: polyuria, polydipsia, tired all the time, cold intolerance or hot flashes G[place]tt/Lymph: Denies: easy bruising or easy bleeding Medications/Allergies Home Medications Medication Instructions Recorded Confirmed Last Taken Type blood-glucose meter,continuous #1 ea 11/26/20 08/08/21 Unknown Rx blood-glucose sensor #3 ea 11/26/20 08/08/21 Unknown Rx blood-glucose transmitter #3 ea 11/26/20 08/08/21 Unknown Rx Blood Glucose Test #100 ea 03/20/21 08/08/21 Unknown Rx blood sugar diagnostic #100 ea 03/20/21 08/08/21 Unknown Rx blood-glucose meter [Blood Glucose #1 ea 03/20/21 08/08/21 Unknown Rx Monitoring] lancets #200 ea 05/17/21 08/08/21 Unknown Rx strips #200 ea 05/17/21 08/08/21 Unknown Rx lancets #200 ea 06/18/21 08/08/21 Unknown Rx strips #1 ea 06/18/21 08/08/21 Unknown Rx insulin aspart U-100 100 unit/mL See Rx Instructions .ROUTE 06/19/21 08/08/21 Unknown Rx (3 mL) subcutaneous pen .COMPLEX #15 ml insulin glargine 100 unit/mL (3 40 unit SUBCUT BID 30 Days #24 ml 06/19/21 08/08/21 Unknown Rx mL) subcutaneous pen Allergies Allergy/AdvReac Type Severity Reaction Status Date / Time promethazine [From Phenergan] Allergy Unknown Verified 05/14/21 11:34 PFSH Acute PFSH: Medical History DKA (diabetic ketoacidoses) GERD (gastroesophageal reflux disease) History of pancreatitis Hyperglycemia Hypoglycemia due to insulin Long-term insulin use Marijuana use Methamphetamine abuse Nausea & vomiting Noncompliance with diabetes treatment Pancreatitis Type 1 diabetes With recurrent admissions for DKA, severe Uncontrolled type 1 diabetes mellitus Surgical History No pertinent past surgical history Family History Other Diabetes Social History Smoking and tobacco status: current every day smoker Alcohol intake: never Lives independently: Yes Household members: significant other Marital status: Single Current occupational status: unemployed Vitals/I&O/Wt Last Vital Signs Temp 98.7 F 09/02/21 22:02 Pulse 148 H 09/02/21 23:41 Resp 21 H 09/02/21 23:41 BP 110/56 09/02/21 23:41 Pulse Ox 98 09/02/21 23:41 09/02/21 09/02/21 09/03/21 14:59 22:59 06:59 Intake Total 1000 / 1000 Balance 1000 / 1000 Weight last 48 hrs Weight 68.039 kg Physical Exam Narrative: EXAM NARRATIVE: General: No acute distress, AO x3, dehydrated, flushed appearance HEENT: PERRLA, pupils bilaterally equal and reactive, pallors not present Chest: Normal vesicular breath sounds, no added sounds, equal good air entry bilaterally CVS: S1-S2 regular, no murmurs, no tachycardia, no gallops, no rubs Abdomen: Soft, nontender, no organomegaly, bowel sounds present Neuro: No focal deficits, no facial deformity, AO x3, power 5/5 in all limbs Data : 09/02/21 19:30 09/03/21 02:51 A&P Assessment and plan (1) DKA (diabetic ketoacidosis): Admit to ICU Continue insulin drip per DKA protocol, target range 80-1 20 Check fingerstick every hour, CMP every 4 hours Repeat ABG in 8 hours Currently on normal saline at 125 cc an hour, once blood sugar trends down to 250, switch IV fluids to D5 normal saline Received insulin boluses for hyperkalemia of 7, currently potassium improved at 5.7. Transient a flutter noted with heart rate at 170 in the ER on secured entrance monitor, likely related to hyperkalemia, currently rhythm is sinus tachycardia between 130 to 140 bpm. Severe dehydration as a result of DKA, has received 2 L of IV fluid bolus, continue maintenance IV hydration. Magnesium at 2.6. NPO until anion gap closes Urine drug screen negative today Status: Acute Qualifiers: Diabetes mellitus complication detail: without coma Diabetes mellitus type: type 1 Qualified Code(s): E10.10 - Type 1 diabetes mellitus with ketoacidosis without coma Attestations Medical Necessity Statement*: Anticipate greater than 2 midnight admission for management of DKA, severe metabolic acidosis, severe dehydration needing IV fluid resuscitation aggressively,, hyperkalemia with close cardiac monitoring. Critical Care Time: The high probability of a clinically significant, sudden or life threatening deterioration of the patient's [endocrine] system(s) required my full and direct attention, intervention and personal management. The critical care time is as shown. This time is in addition to time spent performing any reported procedures but includes the following: [x] Data and vital sign review and interpretation [x] Patient assessment, examination and intervention [x] Documentation [x] Medication orders and management Critical Care Time (min): 60 Coding Level of Care Code Acute [employer] for [facility] Diagnoses DKA (diabetic ketoacidosis) E10.10 Diabetes mellitus complication detail: without coma Diabetes mellitus type: type 1
[2021-09-03 00:10] LABS: Carbon Dioxide 4 mmol/L (22-29); Creatinine Clr Calc Pharmacy 73.7838; Glucose 513 mg/dL (65-115)
[2021-09-03 00:11] LABS: Anion Gap 39.7 (5-19); Potassium 5.7 mmol/L (3.5-5.1)
--- NOTE | 2021-09-03 00:15 | PC.NURSE ---
Patient Insulin Titrate Provider advised this nurse to titrate patient's insulin drip from 13.8 to 15 units/hr.
[2021-09-03 00:40] LABS: Magnesium 2.6 mg/dL (1.7-2.3)
[2021-09-03] MEDS: magnesium sulfate premix 2 GM/50 ML PIGGYBACK IV (00:50)
[2021-09-03 02:09] LABS: Glucose Point of Care 255 mg/dL (70-110)
[2021-09-03] MEDS: dextrose 5 % 500 ML 125 ML IV (02:35)
[2021-09-03 03:19] LABS: Anion Gap 28.2 (5-19); Blood Urea Nitrogen 30 mg/dL (6-20); Calcium 8.6 mg/dL (8.5-10.5); Chloride 110 mmol/L (98-107); Creatinine Clr Calc Pharmacy 86.0811; Glomerular Filtration Rate 74.4 mL/min (90-130); Glucose 170 mg/dL (65-115); Osmolality Calculated 306 mOsm/kg (285-295); Potassium 4.2 mmol/L (3.5-5.1); Sodium 143 mmol/L (136-145)
[2021-09-03 03:23] LABS: Carbon Dioxide 9 mmol/L (22-29)
[2021-09-03 03:26] LABS: Glucose Point of Care 148 mg/dL (70-110)
[2021-09-03 04:11] LABS: ABG PCO2 26.6 mmHg (35-45); ABG PH Result 7.24 (7.35-7.45); Arterial Blood Gas Hematocrit 51.5 % (42-52); Base Excess ABG -14.3 mmol/L (-2.0-2.0); Blood Gas Allen Test Pos; Blood Gas Operator Identificat glc; Blood Gas Sample Site Radial, left; Blood Gas Sample Type Arterial; HCO3 ABG 11.3 mmol/L (22-26); Oxygen Device ROOM AIR
[2021-09-03 04:29] LABS: Glucose Point of Care 142 mg/dL (70-110)
[2021-09-03 05:45] LABS: Glucose Point of Care 161 mg/dL (70-110)
[2021-09-03] MEDS: dextrose 5 % 500 ML 150 ML IV (06:37)
--- NOTE | 2021-09-03 06:38 | PC.NURSE ---
Patient D5 Verbal Order Received verbal order from provider to run patient D5 500mL at 150mL/hr. MAR updated.
[2021-09-03 07:18] LABS: Glucose Point of Care 162 mg/dL (70-110)
[2021-09-03 07:21] LABS: Blood Urea Nitrogen 26 mg/dL (6-20); Calcium 8.4 mg/dL (8.5-10.5); Carbon Dioxide 12 mmol/L (22-29); Chloride 109 mmol/L (98-107); Glomerular Filtration Rate 118.8 mL/min (90-130); Glucose 123 mg/dL (65-115); Osmolality Calculated 296 mOsm/kg (285-295); Sodium 140 mmol/L (136-145)
[2021-09-03 07:26] LABS: Anion Gap 23.4 (5-19); Potassium 4.4 mmol/L (3.5-5.1)
--- NOTE | 2021-09-03 08:52 | ECG_ITS ---
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 Measurements Intervals [place] Rate: 146 P: 74 VA: 119 QRS: 74 QRSD: 76 T: 51 QT: 272 QTc: 425 Interpretive Statements SINUS TACHYCARDIA WITH SHORT VA INTERVAL Compared to ECG 09/02/2021 19:33:44 No significant changes Electronically Signed On 09-03-2021 22:02:18 POST ACUTE CARE REGISTERED NURSE by Real Cerna M.D. [id number]
[2021-09-03 08:59] LABS: Glucose Point of Care 109 mg/dL (70-110)
[2021-09-03] MEDS: metoprolol tartrate 25 mg Tablet PO (09:53)
[2021-09-03] MEDS: dextrose 5% 1,000 ML 150 ML IV (10:00)
[2021-09-03 10:50] LABS: Glucose Point of Care 113 mg/dL (70-110)
[2021-09-03 11:26] LABS: Glucose Point of Care 124 mg/dL (70-110)
[2021-09-03 11:41] LABS: Basophils % 0.2 %; Hemoglobin 15.7 g/dL (11.7-16.6); Lymphocytes # 0.7 10^3/uL (0.8-4.8); Lymphocytes % 6.1 %; Mean Corpuscular HGB Conc 34.1 g/dL (30.0-36.0); Mean Corpuscular Hemoglobin 31.3 pg (28.0-34.0); Mean Corpuscular Volume 91.6 fl (80-94); Mean Platelet Volume 9.4 fL (7.4-10.4); Monocytes # 0.7 10^3/uL (0.2-0.9); Monocytes % 6.3 %; Neutrophils % 87.1 %; Nucleated Red Blood Cells % 0 %; Platelet Count 274 10^3/cmm (130-400); Red Blood Count 5.02 10^6/uL (4.1-5.3); Red Cell Distribution Width 12.4 % (12.1-15.1); White Blood Count 11.8 10^3/uL (4.0-10.0)
[2021-09-03 12:02] LABS: Anion Gap 23.1 (5-19); Blood Urea Nitrogen 22 mg/dL (6-20); Calcium 8.3 mg/dL (8.5-10.5); Carbon Dioxide 13 mmol/L (22-29); Chloride 108 mmol/L (98-107); Glomerular Filtration Rate 118.8 mL/min (90-130); Glucose 114 mg/dL (65-115); Osmolality Calculated 294 mOsm/kg (285-295); Potassium 4.1 mmol/L (3.5-5.1); Sodium 140 mmol/L (136-145)
--- NOTE | 2021-09-03 12:03 | P.PN_ITS ---
Subjective Subjective: Interval history: Patient admitted again overnight for diabetic ketoacidosis. Overnight has remained on D5W infusion and insulin drip. On examination awake alert asking for water. Denies any nausea vomiting, headache. Vitals/I&O/Wt Last Vital Signs Temp 97.7 F 09/03/21 10:05 Pulse 102 H 09/03/21 12:00 Resp 16 09/03/21 12:00 BP 119/76 09/03/21 12:00 Pulse Ox 99 09/03/21 12:00 09/02/21 09/03/21 09/03/21 22:59 06:59 14:59 Intake Total 1999 550 / 2550 145.873 / 145.873 Balance 1999 550 / 2550 145.873 / 145.873 Weight last 48 hrs Weight 68.039 kg Weight 68.039 kg Physical Exam Narrative: EXAM NARRATIVE: General: No acute distress, AO x3, dehydrated, flushed appearance HEENT: PERRLA, pupils bilaterally equal and reactive, pallors not present Chest: Normal vesicular breath sounds, no added sounds, equal good air entry bilaterally CVS: S1-S2 regular, no murmurs, no tachycardia, no gallops, no rubs Abdomen: Soft, nontender, no organomegaly, bowel sounds present Neuro: No focal deficits, no facial deformity, AO x3, power 5/5 in all limbs Data : 09/03/21 11:30 09/03/21 11:30 A&P Assessment and plan (1) DKA (diabetic ketoacidosis): Admit to ICU Continue insulin drip per DKA protocol, target range 80-1 20 Check fingerstick every hour, CMP every 4 hours Repeat ABG in 8 hours Currently on normal saline at 125 cc an hour, once blood sugar trends down to 250, switch IV fluids to D5 normal saline Received insulin boluses for hyperkalemia of 7, currently potassium improved at 5.7. Transient a flutter noted with heart rate at 170 in the ER on groundwater monitoring technician, likely related to hyperkalemia, currently rhythm is sinus tachycardia between 130 to 140 bpm. Severe dehydration as a result of DKA, has received 2 L of IV fluid bolus, continue maintenance IV hydration. Magnesium at 2.6. NPO until anion gap closes Urine drug screen negative today Status: Acute Qualifiers: Diabetes mellitus complication detail: without coma Diabetes mellitus type: type 1 Qualified Code(s): E10.10 - Type 1 diabetes mellitus with ketoacidosis without coma (2) Noncompliance with diabetes treatment: Status: Acute (3) High anion gap metabolic acidosis: Status: Acute (4) Tachycardia: Status: Acute Additional A&P Information DKA protocol Insulin drip. BS Q1h. Target 150-250. Continue with D5 NS at 150 cc/h. Monitor serum BMP every 4 hours for. Keep potassium over 4. NPO. Once anion gap closes will stop the insulin drip and D5 NS and start on carb consistent diet while being covered over with long-acting insulin and subcu insulin. High anion gap metabolic acidosis Tachycardia: Possible atrial flutter in ER. Sinus right now. Metoprolol 25 milligrams twice daily, IV 2.5 mg every 4 hours as needed for heart rate of more than 110 bpm Protonix for PUD Heparin for DVT PPx Continue with ICU care. Attestations Medical Necessity Statement*: Requires further hospitalization for management of diabetic ketoacidosis, high nongap metabolic acidosis Critical Care Time: The high probability of a clinically significant, sudden or life threatening deterioration of the patient's [endocrine, insulin drip] system(s) required my full and direct attention, intervention and personal management. The critical care time is as shown. This time is in addition to time spent performing any reported procedures but includes the following: [x] Data and vital sign review and interpretation [x] Patient assessment, examination and intervention [x] Documentation [x] Medication orders and management Critical Care Time (min): 90 Coding Level of Care Code Acute Hearing Therapy Director for [facility] Diagnoses DKA (diabetic ketoacidosis) E10.10 Diabetes mellitus complication detail: without coma Diabetes mellitus type: type 1 Noncompliance with diabetes treatment Z91.19 High anion gap metabolic acidosis E87.2 Tachycardia R00.0
--- NOTE | 2021-09-03 12:29 | PC.NURSE ---
Nurse received patient from ER staff at 0900. Vitals within normal limits. Nurse checked blood sugar and started insulin drip per protocol.
--- NOTE | 2021-09-03 12:30 | PC.NURSE ---
Patient is stating that he will leave if he cannot eat or drink. Nurse offered ice chips, explained that he is getting hydration through IV fluids, and explained risk of intractable vomiting if eating or drinking at this time. Patient has agreed to stay and continue to receive care, but also says that he knows he can leave and he has left AMA before.
[2021-09-03 12:44] LABS: Glucose Point of Care 123 mg/dL (70-110)
[2021-09-03] MEDS: heparin 5,000 unit/mL INJ 1 mL 5000 UNIT SUBCUT (12:44)
[2021-09-03 13:43] LABS: Glucose Point of Care 146 mg/dL (70-110)
[2021-09-03 14:43] LABS: Glucose Point of Care 118 mg/dL (70-110)
[2021-09-03] MEDS: dextrose 5% 1,000 ML 200 ML IV (15:14)
[2021-09-03 15:51] LABS: Anion Gap 18.8 (5-19); Blood Urea Nitrogen 19 mg/dL (6-20); Calcium 8.4 mg/dL (8.5-10.5); Carbon Dioxide 17 mmol/L (22-29); Chloride 104 mmol/L (98-107); Glomerular Filtration Rate 118.8 mL/min (90-130); Glucose 122 mg/dL (65-115); Osmolality Calculated 286 mOsm/kg (285-295); Potassium 3.8 mmol/L (3.5-5.1); Sodium 136 mmol/L (136-145)
--- NOTE | 2021-09-03 16:42 | PC.NURSE ---
Patient is leaving against medical advice. He is alert and oriented to person, place, time and situation. THis nurse and charge nurse john spoke to patient explaining risks of leaving, and that he is always able to contact ems and receive treatment form us again if he feels he needs help again. Patient changed into personal clothes and removed monitoring devices. Nurse removed IV. Patient signed AMA paperwork. Nurse walked patient out to his ride waiting for hime to make sure he was able to safely ambulate. Nurse once againt emphasized that if he feels the need to, he can come back to the hospital and receive care. Nurse emphasized to the patient the need to monitor his blood sugar closely as he has had a sudden withdrawal of the IV insulin and the D5W he was receiving.
== END 2021-09-03 15:30 | disposition left against medical advice (07) | DRG 639 ==
LOC: ER 09-03 00:07 → ER IP 09-03 01:27 → ICU 09-03 08:54
PROVIDERS: Emergency Medicine; Admitting Provider Student in an Organized Health Care Education/Training Program; Emergency Provider Family Medicine; PCP Nurse Practitioner Family; Visit Provider Student in an Organized Health Care Education/Training Program
DX: E10.10 Type 1 diabetes mellitus with ketoacidosis without coma (principal); Z53.29 Procedure and treatment not carried out because of patient's decision for other reasons; K21.9 Gastro-esophageal reflux disease without esophagitis; F12.90 Cannabis use, unspecified, uncomplicated; F15.10 Other stimulant abuse, uncomplicated; Z91.14 Patient's other noncompliance with medication regimen; F17.210 Nicotine dependence, cigarettes, uncomplicated; E87.5 Hyperkalemia; R00.0 Tachycardia, unspecified
CPT/HCPCS: 36415; 36416; 36600; 80048; 80053; 80306; 81001; 82009; 82803; 82962; 83605; 83735; 84100; 85025; 87426; 93005; 96365; 96367; 96372; 96375; 99291; J1644; J1815; J2060; J2405; J3475; J7030; J7050

== ENCOUNTER 2021-11-21 12:33 | Inpatient (IN) | payer MEDICARE, MEDICAID, SELFPAY ==
[2021-11-21] VITALS (35 sets, daily range): BP systolic 81–145; BP diastolic 47–103; PULSE 83–123; RESP 10–35; TEMP 36.5–36.9; O2SAT 88–99; BMI 23.4; BMI 23.3
--- NOTE | 2021-11-21 12:43 | XRR_ITS ---
PROCEDURE INFORMATION: Exam: XR Chest Exam date and time: 11/21/2021 12:15 PM Age: 26 years old Clinical indication: Cough TECHNIQUE: Imaging protocol: XR of the chest. Views: 1 view. COMPARISON: CR XR chest 1V portable [id number] 05/16/2021 11:55 AM FINDINGS: Lungs: Unremarkable. No consolidation. Pleural spaces: Unremarkable. No pleural effusion. No pneumothorax. Heart/Mediastinum: Unremarkable. No cardiomegaly. Bones/joints: Unremarkable. XR/XR chest 1V portable [id number] IMPRESSION: No acute findings.
[2021-11-21] MEDS: ondansetron 2 mg/ML SDV 2 mL 4 MG IVP (12:54)
[2021-11-21 13:07] LABS: ABG PCO2 12.7 mmHg (35-45); ABG PH Result 7.29 (7.35-7.45); Arterial Blood Gas Hematocrit 56.4 % (42-52); Base Excess ABG -16.5 mmol/L (-2.0-2.0); Blood Gas Allen Test Pos; Blood Gas Operator Identificat MONRO; Blood Gas Sample Site Brachial, right; Blood Gas Sample Type Arterial; HCO3 ABG 6.2 mmol/L (22-26); Oxygen Device ROOM AIR
[2021-11-21] MEDS: sodium chloride 0.9% 1,000 ML 999 ML IV ×2 (13:11→13:23)
[2021-11-21 13:14] LABS: Glucose Point of Care 219 mg/dL (70-110)
[2021-11-21 13:38] LABS: Basophils % 0.4 %; Hematocrit 53.8 % (42.0-52.0); Hemoglobin 19.1 g/dL (11.7-16.6); Lymphocytes # 0.7 10^3/uL (0.8-4.8); Lymphocytes % 7.3 %; Mean Corpuscular HGB Conc 35.5 g/dL (30.0-36.0); Mean Corpuscular Hemoglobin 31.3 pg (28.0-34.0); Mean Corpuscular Volume 88.1 fl (80-94); Mean Platelet Volume 9.9 fL (7.4-10.4); Monocytes # 0.2 10^3/uL (0.2-0.9); Monocytes % 2.7 %; Neutrophils # 7.93 10^3/uL (1.8-7.7); Neutrophils % 89.3 %; Nucleated Red Blood Cells % 0 %; Platelet Count 286 10^3/cmm (130-400); Red Blood Count 6.11 10^6/uL (4.1-5.3); Red Cell Distribution Width 11.9 % (12.1-15.1); White Blood Count 8.9 10^3/uL (4.0-10.0)
--- NOTE | 2021-11-21 14:00 | ED_ITS ---
HPI - Abdominal Pain General: Chief Complaint: Abdominal Pain Stated Complaint: ABD PAIN Time Seen by Provider: 11/21/21 12:35 History of Present Illness: Patient comes in with generalized abdominal pain, vomiting, and nausea. Has a history of diabetes type 1. States that he has bee n compliant with his medications. Denies fever, cough, congestion, diarrhea. Associated Symptoms: Reports nausea and vomiting; Denies dysuria and fever(s) Review of Systems Const: Denies: fever(s) or body aches Eyes: Denies: change in vision or blurry vision ENMT: Denies: throat pain or odynophagia Card: Denies: chest pain or palpitations Resp: Denies: dyspnea or productive cough GI: Reports: abdominal pain, nausea and vomiting : Denies: flank pain or dysuria Musc: Denies: neck pain or back pain Skin/Breast: Denies: rash or pruritus Neuro: Denies: headache(s) or numbness in extremities Psych: Denies: anxiety or change in appetite Endo: Denies: polyuria or excessive sweating PFSH ED PFSH: Medical History DKA (diabetic ketoacidoses) GERD (gastroesophageal reflux disease) History of pancreatitis Hyperglycemia Hypoglycemia due to insulin Long-term insulin use Marijuana use Methamphetamine abuse Nausea & vomiting Noncompliance with diabetes treatment Pancreatitis Type 1 diabetes With recurrent admissions for DKA, severe Uncontrolled type 1 diabetes mellitus Surgical History No pertinent past surgical history Family History Other Diabetes Social History Smoking and tobacco status: current every day smoker Alcohol intake: never Lives independently: Yes Household members: significant other Marital status: Single Current occupational status: unemployed Physical Exam Const: COMMON NORMALS: patient oriented x3, healthy appearing and alert OTHER: Mild distress from nausea and vomiting HENMT: COMMON NORMALS: normocephalic and atraumatic HEAD & SCALP: normocephalic and atraumatic OTHER: Dry mucous membranes Eye: COMMON NORMALS: Equal, round and reactive pupils present and EOMs intact bilaterally PUPIL: Yes Equal, round and reactive pupils present Neck/C-Spine: COMMON NORMALS: full ROM and supple Resp: COMMON NORMALS: normal respiratory effort, No retractions and No use of accessory muscles Cardio: COMMON NORMALS: regular rate and regular rhythm RATE: regular rate RHYTHM: regular rhythm GI: COMMON NORMALS: Normal to inspection, nondistended, normoactive bowel sounds present and Soft to palpation PALPATION: Yes Soft to palpation OTHER: Mild generalized abdominal tenderness to palpation Back/Pelvis: COMMON NORMALS: thoracic and lumbar spine normal to inspection and no thoracic nor lumbar tenderness Extremity: COMMON NORMALS: normal to inspection and full ROM Neuro: COMMON NORMALS: patient oriented x3 SENSORIUM/ORIENTATION: Yes alert Psych: COMMON NORMALS: mental status grossly normal and cooperative Skin: COMMON NORMALS: no rashes or lesions noted and no wounds GENERAL SKIN EXAM: no rashes or lesions noted Course Vital Signs: Vital signs: Vital Signs Temperature 97.7 F 11/21/21 12:45 Pulse Rate 87 11/21/21 14:15 Respiratory Rate 16 11/21/21 14:15 Blood Pressure 100/50 11/21/21 14:15 Pulse Oximetry 99 11/21/21 14:15 MDM - Abdominal Pain Medical Decision Making Patient comes in with generalized abdominal pain, vomiting, and nausea. Has a history of diabetes type 1. States that he has been compliant with his medications. Denies fever, cough, congestion, diarrhea. On physical exam he panchal s dry mucous membranes, fruity odor to the breath, mild tenderness to palpation of his entire abdomen. Will check labs, start IV fluids, treat nausea with IV Zofran, and reassess. On reassessment I talked to the patient about the test results. We will start an insulin drip as he is in DKA. I discussed the case with the hospitalist, and we will admit for further work-up and treatment. Lab Data : 11/21/21 13:07 11/21/21 13:07 Labs/Radiology: Radiology Impressions Chest X-Ray 11/21/21 12:43 IMPRESSION: No acute findings. Laboratory Results WBC 8.9 10^3/uL (4.0-10.0) 11/21/21 13:07 RBC 6.11 10^6/uL (4.1-5.3) H 11/21/21 13:07 Hgb 19.1 g/dL (11.7-16.6) H 11/21/21 13:07 Hct 53.8 % (42.0-52.0) H 11/21/21 13:07 MCV 88.1 fl (80-94) 11/21/21 13:07 MCH 31.3 pg (28.0-34.0) 11/21/21 13:07 MCHC 35.5 g/dL (30.0-36.0) 11/21/21 13:07 RDW 11.9 % (12.1-15.1) L 11/21/21 13:07 Plt Count 286 10^3/cmm (130-400) 11/21/21 13:07 MPV 9.9 fL (7.4-10.4) 11/21/21 13:07 Neut % (Auto) 89.3 % 11/21/21 13:07 Lymph % (Auto) 7.3 % 11/21/21 13:07 [place] % (Auto) 2.7 % 11/21/21 13:07 Eos % (Auto) 0.0 % 11/21/21 13:07 Baso % (Auto) 0.4 % 11/21/21 13:07 Neut # (Auto) 7.93 10^3/uL (1.8-7.7) H 11/21/21 13:07 Lymph # (Auto) 0.7 10^3/uL (0.8-4.8) L 11/21/21 13:07 [place] # (Auto) 0.2 10^3/uL (0.2-0.9) 11/21/21 13:07 Eos # (Auto) 0.0 10^3/uL (0.0-0.8) 11/21/21 13:07 Baso # (Auto) 0.0 10^3/uL (0.0-0.1) 11/21/21 13:07 Nucleated RBC % (auto) 0 % 11/21/21 13:07 Nucleated RBCs # 0.0 /100WBC 11/21/21 13:07 Specimen Type Arterial 11/21/21 12:53 Sample Site Brachial, right 11/21/21 12:53 ABG pH 7.29 (7.35-7.45) L 11/21/21 12:53 ABG pCO2 12.7 mmHg (35-45) L* 11/21/21 12:53 ABG pO2 124.0 mmHg (80.0-100.0) H 11/21/21 12:53 ABG HCO3 6.2 mmol/L (22-26) L 11/21/21 12:53 ABG Base Excess -16.5 mmol/L (-2.0-2.0) L 11/21/21 12:53 Hasmukh Test Pos 11/21/21 12:53 Hematocrit 56.4 % (42-52) H 11/21/21 12:53 O2 Delivery Device Room air 11/21/21 12:53 FiO2 21.0 % 11/21/21 12:53 Print Line Supervisor ID [place] 11/21/21 12:53 Sodium 135 mmol/L (136-145) L 11/21/21 13:07 Potassium 4.6 mmol/L (3.5-5.1) 11/21/21 13:07 Chloride 97 mmol/L (98-107) L 11/21/21 13:07 Carbon Dioxide 11 mmol/L (22-29) L 11/21/21 13:07 Anion Gap 31.6 (5-19) H 11/21/21 13:07 BUN 14 mg/dL (6-20) 11/21/21 13:07 Creatinine 0.7 mg/dL (0.7-1.2) 11/21/21 13:07 GFR Calculation 138.6 mL/min (90-130) H 11/21/21 13:07 Glucose 208 mg/dL (65-115) H 11/21/21 13:07 POC Glucose 219 mg/dL (70-110) H 11/21/21 13:10 Calculated Osmolality 287 mOsm/kg (285-295) 11/21/21 13:07 Calcium 10.4 mg/dL (8.5-10.5) 11/21/21 13:07 Total Bilirubin 0.5 mg/dL (0.15-1.2) 11/21/21 13:07 AST 23 U/L (0-40) 11/21/21 13:07 ALT 17 U/L (0-41) 11/21/21 13:07 Alkaline Phosphatase 76 IU/L (40-130) 11/21/21 13:07 Total Protein 9.7 g/dL (6.6-8.7) H 11/21/21 13:07 Albumin 5.8 g/dL (3.5-5.2) H 11/21/21 13:07 Globulin 3.9 g/dL (1.3-4.6) 11/21/21 13:07 Lipase 16 U/L (13-60) 11/21/21 13:07 Urine Color Straw (Yellow) 11/21/21 14:14 Urine Appearance Clear (CLEAR) 11/21/21 14:14 Urine pH 5 (5-7) 11/21/21 14:14 Ur Specific [place] 1.025 (1.005-1.030) 11/21/21 14:14 Urine Protein 2+ (Negative) H 11/21/21 14:14 Urine Glucose (UA) 4+ (Normal) H 11/21/21 14:14 Urine Ketones 3+ (Negative) H 11/21/21 14:14 Urine Blood Neg (Negative) 11/21/21 14:14 Urine Nitrate Negative (Negative) 11/21/21 14:14 Urine Bilirubin Neg (Negative) 11/21/21 14:14 Urine Urobilinogen Norm mg/dL (Negative) 11/21/21 14:14 Ur Leukocyte Esterase Negative (Negative) 11/21/21 14:14 Urine RBC None /hpf (0-2) 11/21/21 14:14 Urine WBC None /hpf (0-5) 11/21/21 14:14 Ur Squamous Epith Cells None /hpf (0-5) 11/21/21 14:14 Amorphous Sediment Not Reportable 11/21/21 14:14 Urine Bacteria None /hpf (NONE) 11/21/21 14:14 Urine Mucus Trace /hpf 11/21/21 14:14 Urine Opiates Screen Negative ng/mL (Negative) 11/21/21 14:14 Ur Barbiturates Screen Negative ng/mL (Negative) 11/21/21 14:14 Ur Phencyclidine Scrn Negative ng/mL (Negative) 11/21/21 14:14 Ur Amphetamines Screen Negative ng/mL (Negative) 11/21/21 14:14 U Benzodiazepines Scrn Negative ng/mL (Negative) 11/21/21 14:14 Urine Cocaine Screen Negative ng/mL (Negative) 11/21/21 14:14 U Marijuana (THC) Screen Positive ng/mL (Negative) H 11/21/21 14:14 Ethyl Alcohol < 10 mg/dL (0-10) 11/21/21 13:07 Serum Ketones Positive (Negative) H 11/21/21 13:07 Critical Care Time Critical Care Time: Critical Care Time: Yes Total Critical Care Time: 60 Attestation: This case had a high probability of a clinically significant, sudden, or life threatening deterioration of this patient's condition which required my full and direct attention, intervention and personal management. Discharge Plan Discharge Patient Disposition: Admitted As Inpatient Clinical Impression: Diabetic keto-acidosis Condition: Stable Coding Level of Care Code ED Financial Coordinator for [facility] Fwd Exam Comprehensive
[2021-11-21] MEDS: metoclopramide 5 mg/mL SDV 2 mL 10 MG IVP (14:13)
[2021-11-21 14:21] LABS: Ketone (Acetest) Serum Positive (Negative)
[2021-11-21 14:35] LABS: Amphetamines Screen Urine Negative (Negative); Barbiturates Screen Urine Negative (Negative); Benzodiazepines Screen Urine Negative (Negative); Cocaine Screen Urine Negative (Negative); Opiate Screen Urine Negative (Negative); PCP Screen Urine Negative (Negative); THC Screen Urine Positive (Negative)
[2021-11-21 14:53] LABS: Alanine Aminotransferase 17 U/L (0-41); Albumin Level 5.8 g/dL (3.5-5.2); Alkaline Phosphatase 76 IU/L (40-130); Anion Gap 31.6 (5-19); Aspartate Amino Transferase 23 U/L (0-40); Blood Urea Nitrogen 14 mg/dL (6-20); Calcium 10.4 mg/dL (8.5-10.5); Carbon Dioxide 11 mmol/L (22-29); Chloride 97 mmol/L (98-107); Globulin 3.9 g/dL (1.3-4.6); Glomerular Filtration Rate 138.6 mL/min (90-130); Glucose 208 mg/dL (65-115); Lipase 16 U/L (13-60); Osmolality Calculated 287 mOsm/kg (285-295); Potassium 4.6 mmol/L (3.5-5.1); Sodium 135 mmol/L (136-145); Total Bilirubin 0.5 mg/dL (0.15-1.2); Total Protein 9.7 g/dL (6.6-8.7)
[2021-11-21 14:55] LABS: Alcohol Level < 10 mg/dL (0-10)
[2021-11-21 14:59] LABS: Add Urine Microscopic? YES; Bilirubin Urine Neg (Negative); Blood Urine Neg (Negative); Glucose Urine UA 4+ (Normal); Ketones Urine 3+ (Negative); Leukocyte Esterase Urine Negative (Negative); Nitrate Urine Negative (Negative); Protein Urine 2+ (Negative); Specific Gravity, Urine 1.025 (1.005-1.030); Urine Appearance Clear (CLEAR); Urine Color Straw (Yellow); Urobilinogen Urine Norm (Negative); pH Urine 5 (5-7)
[2021-11-21 15:00] LABS: Add Urine Culture? No; Mucus Urine TRACE /hpf
[2021-11-21 16:06] LABS: Lactate (Lactic Acid level) 1.2 mmol/L (0.5-2.2)
--- NOTE | 2021-11-21 16:15 | PM.HP ---
Providers/Chief Complaint Admitting Physician: Husam Snell DO Primary Care Provider: MARGE Castellano Chief Complaint: ABD PAIN History of Present Illness Salvatore Ott is a 26 year old male who presents with nausea vomiting abdominal pain that started at 4 AM. His he states that his blood sugars were normal in the low 100s. He states that he took his insulin at 6 AM. Patient denies missing any doses. He does admit to using marijuana. Patient denies fever cough or diarrhea. Review of Systems Const: Denies: fever(s) or chills Eyes: Denies: change in vision ENMT: Denies: throat pain or nasal congestion Card: Denies: chest pain or palpitations Resp: Denies: dyspnea or productive cough GI: Denies: abdominal pain or change in stool character : Denies: difficulty urinating or dysuria Musc: Denies: back pain or extremity pain Skin/Breast: Denies: rash or lesions Neuro: Denies: headache(s) or dizziness Psych: Denies: anxiety or depression [place]/Lymph: Denies: easy bruising or easy bleeding Medications/Allergies Home Medications Medication Instructions Recorded Confirmed Last Taken Type blood-glucose meter,continuous #1 ea 11/26/20 11/21/21 Unknown Rx (Dexcom G6 [place]) blood-glucose sensor (Dexcom G6 #3 ea 11/26/20 11/21/21 Unknown Rx Sensor) blood-glucose transmitter (Dexcom #3 ea 11/26/20 11/21/21 Unknown Rx G6 Transmitter) blood sugar diagnostic #100 ea 03/20/21 11/21/21 Unknown Rx blood sugar diagnostic (Blood #100 ea 03/20/21 11/21/21 Unknown Rx Glucose Test) blood-glucose meter (Blood Glucose #1 ea 03/20/21 11/21/21 Unknown Rx Monitoring) lancets #200 ea 05/17/21 11/21/21 Unknown Rx strips #200 ea 05/17/21 11/21/21 Unknown Rx lancets #200 ea 06/18/21 11/21/21 Unknown Rx strips #1 ea 06/18/21 11/21/21 Unknown Rx insulin aspart U-100 100 unit/mL See Rx Instructions .ROUTE .COMPLEX 09/03/21 11/21/21 11/21/21 History (3 mL) subcutaneous pen (Novolog Flexpen U-100 Insulin aspart) insulin glargine 100 unit/mL (3 40 unit SUBCUT BID 09/03/21 11/21/21 11/21/21 History mL) subcutaneous pen (Lantus Solostar U-100 Insulin) Allergies Allergy/AdvReac Type Severity Reaction Status Date / Time promethazine [From Phenergan] Allergy Unknown Verified 11/21/21 12:48 PFSH Acute PFSH: Medical History DKA (diabetic ketoacidoses) GERD (gastroesophageal reflux disease) History of pancreatitis Hyperglycemia Hypoglycemia due to insulin Long-term insulin use Marijuana use Methamphetamine abuse Nausea & vomiting Noncompliance with diabetes treatment Pancreatitis Type 1 diabetes With recurrent admissions for DKA, severe Uncontrolled type 1 diabetes mellitus Surgical History No pertinent past surgical history Family History Other Diabetes Social History Smoking and tobacco status: current every day smoker Alcohol intake: never Lives independently: Yes Household members: family Marital status: Single Current occupational status: disabled Vitals/I&O/Wt Last Vital Signs Temp 97.7 F 11/21/21 12:45 Pulse 97 11/21/21 16:05 Resp 16 11/21/21 16:05 BP 127/69 11/21/21 16:05 Pulse Ox 95 11/21/21 16:05 11/21/21 11/21/21 11/21/21 06:59 14:59 22:59 Intake Total 1199.8 / 1199.8 Balance 1199.8 / 1199.8 Weight last 48 hrs Weight 63.866 kg Physical Exam Const: COMMON NORMALS: no acute distress, average body habitus, patient oriented x3, alert and well nourished HENMT: COMMON NORMALS: normocephalic, atraumatic, hearing grossly normal bilaterally, EAC's normal, moist oral mucous membranes and oropharynx normal Eye: COMMON NORMALS: Equal, round and reactive pupils present, EOMs intact bilaterally, conjunctivae normal and no scleral icterus Neck/C-Spine: COMMON NORMALS: no lymphadenopathy, supple, no JVD, Thyroid normal and No carotid bruits Lymph: LYMPHATIC: no lymphadenopathy noted Chest: COMMONS NORMALS: normal inspection of the chest Resp: COMMON NORMALS: normal respiratory effort, No use of accessory muscles and clear to auscultation bilaterally Cardio: COMMON NORMALS: regular rate, regular rhythm, S1 normal heart sound present, S2 normal heart sound present, No murmurs present (Cardio) and Peripheral pulses 2+ throughout GI: COMMON NORMALS: Normal to inspection, nondistended, normoactive bowel sounds present, Soft to palpation and No hepatosplenomegaly present PALPATION: Yes Tenderness to palpation present (GI) : COMMON NORMALS: Yes normal external exam Back/Pelvis: COMMON NORMALS: no CVA tenderness and thoracic and lumbar spine normal to inspection Extremity: COMMON NORMALS: no clubbing, cyanosis or edema Neuro: COMMON NORMALS: patient oriented x3, CN's II-XII intact bilaterally and moves all extremities Psych: COMMON NORMALS: mental status grossly normal, Normal thought process present, cooperative and speech normal Skin: COMMON NORMALS: no rashes or lesions noted and no wounds Data : 11/21/21 13:07 11/21/21 13:07 CXR: My impression: normal CXR Radiologist's impression: no acute disease ABG Interpretation 1: 11/21/21 12:53 ABG pH 7.29 L ABG pCO2 12.7 L* ABG pO2 124.0 H ABG HCO3 6.2 L ABG Base Excess -16.5 L My Interpretation: metabolic acidosis without compensatory resp alk A&P Assessment and plan (1) DKA (diabetic ketoacidosis): Admit to ICU. N.p.o. 2 peripheral IVs: 1 normal saline at rate of 200 cc/h. 2 D5 half-normal with 20 of KCl at keep vein open or 30 cc an hour. This will allow manipulation of amount of fluid to compensate for the lowering of potassium and the lowering of the blood sugar. IV insulin. BMP every 4 hours and adjust insulin drip as well as IV fluids. Plan to stop insulin drip after ketosis and acidosis has resolved. Note his home medication is Lantus 40 units subcu twice daily with NovoLog 15 units AC meals. He adds a 2 units of over 200 and 5 units of over 300 prior to a meal Status: Acute Qualifiers: Diabetes mellitus type: type 1 Diabetes mellitus complication detail: without coma Qualified Code(s): E10.10 - Type 1 diabetes mellitus with ketoacidosis without coma (2) High anion gap metabolic acidosis: Status: Acute (3) Nausea & vomiting: Status: Acute Plan as above Attestations Medical Necessity Statement*: DKA of is a life-threatening condition if not treated intensely. Thus patient requires 2 midnight stay for insulin drip and fluids. Coding Level of Care Code Acute Nursing Services Manager for [facility] Diagnoses DKA (diabetic ketoacidosis) E10.10 Diabetes mellitus type: type 1 Diabetes mellitus complication detail: without coma High anion gap metabolic acidosis E87.2 Nausea & vomiting R11.2
[2021-11-21 16:24] LABS: Glucose Point of Care 245 mg/dL (70-110)
[2021-11-21] MEDS: heparin 5,000 unit/mL INJ 1 mL 5000 UNIT SUBCUT (16:26)
[2021-11-21] MEDS: D5-NS 0.45% + KCL 20 mEq 20 MEQ/1,000 ML BAG 30 MEQ IV (16:26)
[2021-11-21] MEDS: sodium chloride 0.9% 1,000 ML 200 ML IV (16:47)
[2021-11-21 17:22] LABS: Glucose Point of Care 197 mg/dL (70-110)
[2021-11-21 17:58] LABS: Glucose Point of Care 168 mg/dL (70-110)
--- NOTE | 2021-11-21 18:13 | PC.NURSE ---
removed monitor leads and put t shirt back on up in room insulin gtt infusing and ivf
--- NOTE | 2021-11-21 18:28 | NUR.SHIFT ---
Shift Note Frequent safety and comfort rounds continue. Orders and/or nursing care completed as indicated. Patient monitored for response to intervention and treatment on insulin drip . Education provided on visiting and need to wear cardiac rehabilitation specialist Patient understand Will continue to monitor.
[2021-11-21 18:51] LABS: Blood Urea Nitrogen 11 mg/dL (6-20); Calcium 8.7 mg/dL (8.5-10.5); Chloride 104 mmol/L (98-107); Glomerular Filtration Rate 138.6 mL/min (90-130); Glucose 159 mg/dL (65-115); Osmolality Calculated 283 mOsm/kg (285-295); Sodium 135 mmol/L (136-145)
[2021-11-21 18:54] LABS: Anion Gap 26.6 (5-19); Potassium 4.6 mmol/L (3.5-5.1)
[2021-11-21 18:55] LABS: Carbon Dioxide 9 mmol/L (22-29)
[2021-11-21 19:00] LABS: Glucose Point of Care 133 mg/dL (70-110)
[2021-11-21 20:16] LABS: Glucose Point of Care 122 mg/dL (70-110)
[2021-11-21 21:04] LABS: Glucose Point of Care 96 mg/dL (70-110)
[2021-11-21 22:07] LABS: Glucose Point of Care 88 mg/dL (70-110)
[2021-11-21 23:12] LABS: Glucose Point of Care 76 mg/dL (70-110)
[2021-11-21 23:42] LABS: Blood Urea Nitrogen 9 mg/dL (6-20); Calcium 8.6 mg/dL (8.5-10.5); Carbon Dioxide 11 mmol/L (22-29); Chloride 104 mmol/L (98-107); Glomerular Filtration Rate 165.5 mL/min (90-130); Glucose 80 mg/dL (65-115); Magnesium 1.8 mg/dL (1.7-2.3); Osmolality Calculated 278 mOsm/kg (285-295); Phosphorus 2.6 mg/dL (2.5-4.5); Sodium 135 mmol/L (136-145)
[2021-11-22] VITALS (17 sets, daily range): BP systolic 89–134; BP diastolic 49–95; PULSE 75–105; RESP 7–26; TEMP 36.6–37.5; O2SAT 91–96; BMI 23.3
[2021-11-22 00:08] LABS: Glucose Point of Care 72 mg/dL (70-110)
[2021-11-22 01:07] LABS: Glucose Point of Care 74 mg/dL (70-110)
[2021-11-22] MEDS: sodium chloride 0.9% 1,000 ML 200 ML IV (02:00)
[2021-11-22 02:19] LABS: Glucose Point of Care 86 mg/dL (70-110)
[2021-11-22 03:06] LABS: Glucose Point of Care 92 mg/dL (70-110)
[2021-11-22] MEDS: dextrose 5%-sod chloride 0.45% 1,000 ML 150 ML IV (04:08)
[2021-11-22 04:16] LABS: Glucose Point of Care 122 mg/dL (70-110)
[2021-11-22 04:32] LABS: Basophils % 0.4 %; Eosinophils % 0.3 %; Hematocrit 43.7 % (42.0-52.0); Hemoglobin 15.2 g/dL (11.7-16.6); Lymphocytes # 1.1 10^3/uL (0.8-4.8); Lymphocytes % 15.8 %; Mean Corpuscular HGB Conc 34.8 g/dL (30.0-36.0); Mean Corpuscular Volume 89.2 fl (80-94); Mean Platelet Volume 10.3 fL (7.4-10.4); Monocytes # 0.6 10^3/uL (0.2-0.9); Monocytes % 8.4 %; Neutrophils # 5.14 10^3/uL (1.8-7.7); Neutrophils % 74.8 %; Nucleated Red Blood Cells % 0 %; Platelet Count 235 10^3/cmm (130-400); Red Cell Distribution Width 12.1 % (12.1-15.1); White Blood Count 6.9 10^3/uL (4.0-10.0)
[2021-11-22 05:05] LABS: Anion Gap 22.9 (5-19); Blood Urea Nitrogen 8 mg/dL (6-20); Calcium 8.6 mg/dL (8.5-10.5); Carbon Dioxide 12 mmol/L (22-29); Chloride 106 mmol/L (98-107); Glomerular Filtration Rate 138.6 mL/min (90-130); Glucose 110 mg/dL (65-115); Magnesium 1.8 mg/dL (1.7-2.3); Osmolality Calculated 283 mOsm/kg (285-295); Potassium 3.9 mmol/L (3.5-5.1); Sodium 137 mmol/L (136-145)
[2021-11-22 05:20] LABS: Glucose Point of Care 152 mg/dL (70-110)
[2021-11-22 06:11] LABS: Glucose Point of Care 160 mg/dL (70-110)
[2021-11-22 07:18] LABS: Glucose Point of Care 181 mg/dL (70-110)
[2021-11-22] MEDS: insulin regular-human 250 UNIT in sodium chloride 0.9% 250 ML IV (07:23)
[2021-11-22 08:12] LABS: Glucose Point of Care 187 mg/dL (70-110)
[2021-11-22] MEDS: insulin glargine 100 units/1 mL 20 UNIT SUBCUT (08:13)
[2021-11-22] MEDS: insulin lispro 100 unit/1 mL SUBCUT ×2 (08:14→11:32)
--- NOTE | 2021-11-22 09:28 | PC.NURSE ---
insulin gtt off along with iv fluids am brk served with good appitite noted.. no nausea at this time
[2021-11-22 09:46] LABS: Glucose Point of Care 224 mg/dL (70-110)
[2021-11-22 11:08] LABS: Glucose Point of Care 246 mg/dL (70-110)
--- NOTE | 2021-11-22 11:52 | P.DS_ITS ---
Discharge Providers Date of Admission: 11/21/21 15:46 Date of Discharge: November 22, 2021 Attending Provider at Admission: Husam Snell DO Attending Provider at Discharge: David Smith MD Primary Care Provider: MARGE Castellano Diagnoses at Discharge Discharge Diagnosis (1) DKA (diabetic ketoacidosis): Status: Acute Qualifiers: Diabetes mellitus complication detail: without coma Diabetes mellitus type: type 1 Qualified Code(s): E10.10 - Type 1 diabetes mellitus with ketoacidosis without coma (2) High anion gap metabolic acidosis: Status: Acute (3) Nausea & vomiting: Status: Acute Reason for Visit Reason for Visit: ABD PAIN Hospital Course Hospital Course 26-year-old male with past medical history of, type 1 diabetes GERD history of pancreatitis, marijuana use Presented with chief complaint of nausea vomiting abdominal pain that started, that started at 4 AM in the morning on the day of admission, he admits to using marijuana, upon arrival in the ER he was found to be in DKA, he was started on insulin drip IV hydration, and was placed on DKA protocol. Once anion gap was closed, and patient was tolerating p.o. intake well, insulin drip was overlapped with Long-acting Lantus, and sliding scale insulin, for 2 hours, and was then stopped. At the time of discharge, patient was tolerating p.o. intake well, denied any nausea vomiting abdominal pain. He was discharged home in stable condition, he has been advised to be compliant with his home insulin regimen, and avoid marijuana use. Patient responded well to above medical management and is being discharged in stable condition to home. Physical Exam Const: COMMON NORMALS: patient oriented x3 HENMT: COMMON NORMALS: normocephalic and atraumatic HEAD & SCALP: normocephalic and atraumatic Eye: GENERAL EYE: appearance normal, both eyes and all related structures Chest: COMMONS NORMALS: normal inspection of the chest and normal palpation of entire chest wall CHEST: Yes Symmetrical chest wall rise Resp: COMMON NORMALS: normal respiratory effort, No retractions, No use of accessory muscles and clear to auscultation bilaterally EFFORT & INSPECTION: Yes symmetric chest movement AUSCULTATION: clear to auscultation bilaterally Cardio: COMMON NORMALS: regular rate, regular rhythm, S1 normal heart sound present, S2 normal heart sound present, No gallops present (Cardio), No murmurs present (Cardio), No rub (Cardio) and Peripheral pulses 2+ throughout RATE: regular rate RHYTHM: regular rhythm HEART SOUNDS: S1 normal heart sound present and S2 normal heart sound present PERIPHERAL PULSES: Peripheral pulses 2+ throughout GI: COMMON NORMALS: Normal to inspection, nondistended, normoactive bowel sounds present, Soft to palpation, non-tender, No hepatosplenomegaly present and no masses AUSCULTATION: Yes normoactive bowel sounds PALPATION: Yes Soft to palpation and Yes No hepatosplenomegaly present RECTAL EXAM: Yes deferred Extremity: COMMON NORMALS: no clubbing, cyanosis or edema and no pedal edema Neuro: COMMON NORMALS: patient oriented x3 Discharge Data Studies Completed and Pending Completed Studies During Hospitalization Category Date Time Status XR chest 1V portable [id number] Urgent Exams 11/21/21 12:43 Completed Pending at discharge Category Date Time Status Basic Metabolic Panel AM LABS Lab 11/23/21 04:00 Ordered Basic Metabolic Panel AM LABS Lab 11/24/21 04:00 Ordered Complete Blood Count w/Auto AM LABS Lab 11/23/21 04:00 Ordered Complete Blood Count w/Auto AM LABS Lab 11/24/21 04:00 Ordered Radiology Impressions Chest X-Ray 11/21/21 12:43 IMPRESSION: No acute findings. Laboratory Results WBC 6.9 10^3/uL (4.0-10.0) 11/22/21 03:40 RBC 4.90 10^6/uL (4.1-5.3) 11/22/21 03:40 Hgb 15.2 g/dL (11.7-16.6) 11/22/21 03:40 Hct 43.7 % (42.0-52.0) 11/22/21 03:40 MCV 89.2 fl (80-94) 11/22/21 03:40 MCH 31.0 pg (28.0-34.0) 11/22/21 03:40 MCHC 34.8 g/dL (30.0-36.0) 11/22/21 03:40 RDW 12.1 % (12.1-15.1) 11/22/21 03:40 Plt Count 235 10^3/cmm (130-400) 11/22/21 03:40 MPV 10.3 fL (7.4-10.4) 11/22/21 03:40 Neut % (Auto) 74.8 % 11/22/21 03:40 Lymph % (Auto) 15.8 % 11/22/21 03:40 [place] % (Auto) 8.4 % 11/22/21 03:40 Eos % (Auto) 0.3 % 11/22/21 03:40 Baso % (Auto) 0.4 % 11/22/21 03:40 Neut # (Auto) 5.14 10^3/uL (1.8-7.7) 11/22/21 03:40 Lymph # (Auto) 1.1 10^3/uL (0.8-4.8) 11/22/21 03:40 [place] # (Auto) 0.6 10^3/uL (0.2-0.9) 11/22/21 03:40 Eos # (Auto) 0.0 10^3/uL (0.0-0.8) 11/22/21 03:40 Baso # (Auto) 0.0 10^3/uL (0.0-0.1) 11/22/21 03:40 Nucleated RBC % (auto) 0 % 11/22/21 03:40 Nucleated RBCs # 0.0 /100WBC 11/22/21 03:40 Specimen Type Arterial 11/21/21 12:53 Sample Site Brachial, right 11/21/21 12:53 ABG pH 7.29 (7.35-7.45) L 11/21/21 12:53 ABG pCO2 12.7 mmHg (35-45) L* 11/21/21 12:53 ABG pO2 124.0 mmHg (80.0-100.0) H 11/21/21 12:53 ABG HCO3 6.2 mmol/L (22-26) L 11/21/21 12:53 ABG Base Excess -16.5 mmol/L (-2.0-2.0) L 11/21/21 12:53 Hasmukh Test Pos 11/21/21 12:53 Hematocrit 56.4 % (42-52) H 11/21/21 12:53 O2 Delivery Device Room air 11/21/21 12:53 FiO2 21.0 % 11/21/21 12:53 Leather Heel Breaster ID [place] 11/21/21 12:53 Sodium 137 mmol/L (136-145) 11/22/21 03:40 Potassium 3.9 mmol/L (3.5-5.1) 11/22/21 03:40 Chloride 106 mmol/L (98-107) 11/22/21 03:40 Carbon Dioxide 12 mmol/L (22-29) L 11/22/21 03:40 Anion Gap 22.9 (5-19) H 11/22/21 03:40 BUN 8 mg/dL (6-20) 11/22/21 03:40 Creatinine 0.7 mg/dL (0.7-1.2) 11/22/21 03:40 GFR Calculation 138.6 mL/min (90-130) H 11/22/21 03:40 Glucose 110 mg/dL (65-115) 11/22/21 03:40 POC Glucose 246 mg/dL (70-110) H 11/22/21 11:04 Calculated Osmolality 283 mOsm/kg (285-295) L 11/22/21 03:40 Lactate 1.2 mmol/L (0.5-2.2) 11/21/21 15:39 Calcium 8.6 mg/dL (8.5-10.5) 11/22/21 03:40 Phosphorus 2.6 mg/dL (2.5-4.5) 11/21/21 23:12 Magnesium 1.8 mg/dL (1.7-2.3) 11/22/21 03:40 Total Bilirubin 0.5 mg/dL (0.15-1.2) 11/21/21 13:07 AST 23 U/L (0-40) 11/21/21 13:07 ALT 17 U/L (0-41) 11/21/21 13:07 Alkaline Phosphatase 76 IU/L (40-130) 11/21/21 13:07 Total Protein 9.7 g/dL (6.6-8.7) H 11/21/21 13:07 Albumin 5.8 g/dL (3.5-5.2) H 11/21/21 13:07 Globulin 3.9 g/dL (1.3-4.6) 11/21/21 13:07 Lipase 16 U/L (13-60) 11/21/21 13:07 Urine Color Straw (Yellow) 11/21/21 14:14 Urine Appearance Clear (CLEAR) 11/21/21 14:14 Urine pH 5 (5-7) 11/21/21 14:14 Ur Specific [place] 1.025 (1.005-1.030) 11/21/21 14:14 Urine Protein 2+ (Negative) H 11/21/21 14:14 Urine Glucose (UA) 4+ (Normal) H 11/21/21 14:14 Urine Ketones 3+ (Negative) H 11/21/21 14:14 Urine Blood Neg (Negative) 11/21/21 14:14 Urine Nitrate Negative (Negative) 11/21/21 14:14 Urine Bilirubin Neg (Negative) 11/21/21 14:14 Urine Urobilinogen Norm mg/dL (Negative) 11/21/21 14:14 Ur Leukocyte Esterase Negative (Negative) 11/21/21 14:14 Urine RBC None /hpf (0-2) 11/21/21 14:14 Urine WBC None /hpf (0-5) 11/21/21 14:14 Ur Squamous Epith Cells None /hpf (0-5) 11/21/21 14:14 Amorphous Sediment Not Reportable 11/21/21 14:14 Urine Bacteria None /hpf (NONE) 11/21/21 14:14 Urine Mucus Trace /hpf 11/21/21 14:14 Urine Opiates Screen Negative ng/mL (Negative) 11/21/21 14:14 Ur Barbiturates Screen Negative ng/mL (Negative) 11/21/21 14:14 Ur Phencyclidine Scrn Negative ng/mL (Negative) 11/21/21 14:14 Ur Amphetamines Screen Negative ng/mL (Negative) 11/21/21 14:14 U Benzodiazepines Scrn Negative ng/mL (Negative) 11/21/21 14:14 Urine Cocaine Screen Negative ng/mL (Negative) 11/21/21 14:14 U Marijuana (THC) Screen Positive ng/mL (Negative) H 11/21/21 14:14 Ethyl Alcohol < 10 mg/dL (0-10) 11/21/21 13:07 Serum Ketones Positive (Negative) H 11/21/21 13:07 Vitals Last Vital Signs Temp 99.4 F 11/22/21 06:00 Pulse 105 H 11/22/21 10:00 Resp 14 11/22/21 10:00 BP 124/74 11/22/21 10:00 Pulse Ox 96 11/22/21 06:00 Discharge Plan Discharge Patient Disposition: Home Condition: Stable Prescriptions: Continued (DME) Dexcom G6 Hair Spring Cutter Misc See Rx Instructions .ROUTE .MEDSUPPLY Qty: 1 0RF Rx Instructions: takes blood sugar (DME) Dexcom G6 Sensor Device See Rx Instructions .ROUTE .MEDSUPPLY Qty: 3 3RF Rx Instructions: use to take blood sugars (DME) Dexcom G6 Transmitter Device See Rx Instructions .ROUTE .MEDSUPPLY Qty: 3 3RF Rx Instructions: used to take blood sugars (DME) strips See Rx Instructions .Route .MEDSUPPLY Qty: 1 3RF Rx Instructions: Check blood sugars 3 times daily, with meals, #200, 3 refills (DME) lancets Misc See Rx Instructions .Route Qty: 200 3RF Rx Instructions: check BS, TID with meals (DME) blood sugar diagnostic Strip See Rx Instructions .Route Qty: 100 0RF Rx Instructions: As directed (DME) Blood Glucose Test Strip See Rx Instructions .Route Qty: 100 0RF Rx Instructions: As directed (DME) blood-glucose meter [Blood Glucose Monitoring] Kit See Rx Instructions .Route Qty: 1 0RF Rx Instructions: As directed (DME) strips See Rx Instructions .Route .MEDSUPPLY Qty: 200 3RF Rx Instructions: Check blood sugars 3 times daily, before meals (DME) lancets See Rx Instructions .Route .MEDSUPPLY Qty: 200 1RF Rx Instructions: Check blood sugars 3 times daily, before meals insulin aspart U-100 [Novolog Flexpen U-100 Insulin] 100 unit/mL (3 mL) insulin pen See Rx Instructions .ROUTE .COMPLEX 0RF Rx Instructions: inject subcutaneously, three times daily, before meals, based on sliding scale provided backup if pump not working. Lantus Solostar U-100 Insulin 100 unit/mL (3 mL) insulin pen 40 unit SUBCUT BID 0RF Rx Instructions: For use of back up Discharge Orders: Discharge Order (Routine); Ordered 11/22/21 Ordered By: David Smith Referrals: Earlene Titus FNP-C [Primary Care Provider] - 1 month Discharge Diet: Diabetic Discharge Activity: Resume usual activity Patient Instructions: Opioid Safety Discharge Attestations Time Spent in Discharge Care*: greater than 30 min Specific Discharge Activities: educating patient, educating and/or supporting family/caregiver, discussing with pcp/other providers, discussing with case finishing machine adjuster/social workers/dc planners, documenting/other paperwork and evaluating patient/reviewing data Status at Discharge: Cognitive status at discharge: cognitively intact , Behavioral status at discharge: cooperative , Quality Metrics Clinical Quality Measures [ No reported AMI, CVA or VTE this stay] Coding Level of Care Code Acute Chg FW DC note Exam Comprehensive Diagnoses DKA (diabetic ketoacidosis) E10.10 Diabetes mellitus complication detail: without coma Diabetes mellitus type: type 1 High anion gap metabolic acidosis E87.2 Nausea & vomiting R11.2
== END 2021-11-22 13:15 | disposition home or self-care (01) | DRG 639 ==
LOC: ER 15:46 → ICU 16:00
PROVIDERS: Internal Medicine; Admitting Provider Internal Medicine; Emergency Provider Emergency Medicine; PCP Nurse Practitioner Family; Visit Provider Internal Medicine
DX: E10.10 Type 1 diabetes mellitus with ketoacidosis without coma (principal); K21.9 Gastro-esophageal reflux disease without esophagitis; F12.90 Cannabis use, unspecified, uncomplicated; F17.210 Nicotine dependence, cigarettes, uncomplicated
CPT/HCPCS: 36415; 36416; 36600; 71045; 80048; 80053; 80306; 80307; 81001; 81003; 82009; 82803; 82962; 83605; 83690; 83735; 84100; 85025; 87804; 93005; 96361; 96365; 96366; 96367; 96372; 96374; 96375; 99285; C9113; J1630; J1644; J1650; J1815 ×2; J2405; J2765; J3475; J3480; J7030; J7050; J7799

== ENCOUNTER 2022-02-16 12:23 | Inpatient (IN) | payer MEDICARE, MEDICAID, SELFPAY ==
[2022-02-16] VITALS (12 sets, daily range): BP systolic 94–134; BP diastolic 65–92; PULSE 72–104; RESP 16–34; TEMP 36.8–37.2; O2SAT 94–100; BMI 23.3
[2022-02-16 12:34] LABS: Glucose Point of Care 272 mg/dL (70-110)
--- NOTE | 2022-02-16 12:36 | ED_ITS ---
HPI - Nausea/Vomiting/Diarrhea General: Chief complaint: Abdominal Pain Stated complaint: n/v Time Seen by Provider: 02/16/22 12:23 Source: patient Mode of arrival: EMS Limitations: no limitations History of Present Illness: 26-year-old male with a history of type 1 diabetes and frequent hospitalizations for DKA. Comes in complaining of abdominal pain with nausea vomiting that began overnight. EMS found his blood sugar to be 337. prior to last evening he was in his usual state of health no recent illness cough cold fever sweats or chills. No dysuria urgency or frequency. MD elicited complaint: nausea and vomiting Onset (ago): hour(s) Description of vomiting: watery Associated nausea: Yes Associated abdominal pain: Yes Location of pain: Diffuse Severity: mild Quality: cramping Exacerbating factors: none Relieving factors: none Associated symtoms: Reports decreased urine output, anorexia, malaise and nausea; Denies altered mental status, anxiety, bloating, change in vision, chest pain, cough, diaphoresis, dizziness, dysuria, epistaxis, fatigue, fecal incontinence, fevers/chills, headache(s), myalgias, numbness, palpitations, rash, short of breath, syncope, tenesmus or tinnitus Review of Systems Const: Reports: malaise; Denies: fever(s), chills, fatigue or diaphoresis Eyes: Denies: change in vision ENMT: Denies: tinnitus or epistaxis Card: Denies: chest pain, palpitations or syncope Resp: Denies: dyspnea, productive cough or non-productive cough GI: Reports: abdominal pain, nausea and vomiting; Denies: hematemesis, coffee ground emesis, dysphagia, heartburn, diarrhea, constipation, bloating, GI cramping or fecal incontinence : Denies: flank pain, difficulty urinating, dysuria, urinary frequency or urinary urgency Skin/Breast: Denies: rash or pruritus Neuro: Denies: headache(s) or dizziness Psych: Denies: anxiety PFSH ED PFSH: Medical History DKA (diabetic ketoacidoses) DKA (diabetic ketoacidosis) GERD (gastroesophageal reflux disease) High anion gap metabolic acidosis History of pancreatitis Hyperglycemia Hypoglycemia due to insulin Long-term insulin use Marijuana use Methamphetamine abuse Nausea & vomiting Noncompliance with diabetes treatment Pancreatitis Type 1 diabetes With recurrent admissions for DKA, severe Uncontrolled type 1 diabetes mellitus Surgical History No pertinent past surgical history Family History Other Diabetes Social History Smoking and tobacco status: current every day smoker Alcohol intake: never Lives independently: Yes Household members: family Marital status: Single Current occupational status: disabled Physical Exam Const: EXAM LIMITATIONS: no altered mental status GENERAL APPEARANCE: cooperative and comfortable ORIENTATION/CONSCIOUSNESS: Yes awake HENMT: COMMON NORMALS: normocephalic, atraumatic and hearing grossly normal bilaterally HEAD & SCALP: normocephalic and atraumatic Neck/C-Spine: COMMON NORMALS: no JVD Lymph: LYMPHATIC: no lymphadenopathy noted and no lymphedema noted Resp: COMMON NORMALS: normal respiratory effort, No retractions, No use of accessory muscles and clear to auscultation bilaterally AUSCULTATION: clear to auscultation bilaterally Cardio: COMMON NORMALS: no JVD, regular rate, regular rhythm and No murmurs present (Cardio) RATE: regular rate RHYTHM: regular rhythm GI: COMMON NORMALS: Soft to palpation and No hepatosplenomegaly present AUSCULTATION: Yes normoactive bowel sounds PALPATION: Yes Soft to palpation, No Tenderness to palpation present (GI), No Guarding due to palpation present (GI) and Yes No hepatosplenomegaly present Extremity: COMMON NORMALS: normal to inspection, capillary refill normal, no clubbing, cyanosis or edema, no calf tenderness and no pedal edema Skin: COMMON NORMALS: no rashes or lesions noted GENERAL SKIN EXAM: no rashes or lesions noted Course Vital Signs: Vital signs: Vital Signs Temperature 97.9 F 02/17/22 12:39 Pulse Rate 76 02/17/22 12:39 Respiratory Rate 16 02/17/22 12:39 Blood Pressure 115/78 02/17/22 12:39 Pulse Oximetry 96 02/17/22 12:39 MDM - Nausea/Vomiting/Diarrhea Medical Decision Making Early DKA. Discussed with hospitalist will admit for fluids and control of blood sugar. He does have ketones. In the past he has been very fragile. Patient is agreeable discussed with hospitalist orders written. Medical Records I reviewed the patient's medical records. Lab Data I reviewed the patient's lab results. : 02/16/22 13:02 02/17/22 09:40 Radiology Impressions Abdomen/Pelvis CT 02/16/22 15:58 IMPRESSION: Prominent fluid in the small bowel without dilation suggestive of an enteritis. Laboratory Results WBC 16.6 10^3/uL (4.0-10.0) H 02/16/22 13:02 RBC 6.09 10^6/uL (4.1-5.3) H 02/16/22 13:02 Hgb 19.3 g/dL (11.7-16.6) H 02/16/22 13:02 Hct 52.7 % (42.0-52.0) H 02/16/22 13:02 MCV 86.5 fl (80-94) 02/16/22 13:02 MCH 31.7 pg (28.0-34.0) 02/16/22 13:02 MCHC 36.6 g/dL (30.0-36.0) H 02/16/22 13:02 RDW 12.1 % (12.1-15.1) 02/16/22 13:02 Plt Count 210 10^3/cmm (130-400) 02/16/22 13:02 MPV 11.0 fL (7.4-10.4) H 02/16/22 13:02 Neut % (Auto) 91.3 % 02/16/22 13:02 Lymph % (Auto) 3.0 % 02/16/22 13:02 [place] % (Auto) 4.7 % 02/16/22 13:02 Eos % (Auto) 0.1 % 02/16/22 13:02 Baso % (Auto) 0.4 % 02/16/22 13:02 Neut # (Auto) 15.13 10^3/uL (1.8-7.7) H 02/16/22 13:02 Lymph # (Auto) 0.5 10^3/uL (0.8-4.8) L 02/16/22 13:02 [place] # (Auto) 0.8 10^3/uL (0.2-0.9) 02/16/22 13:02 Eos # (Auto) 0.0 10^3/uL (0.0-0.8) 02/16/22 13:02 Baso # (Auto) 0.1 10^3/uL (0.0-0.1) 02/16/22 13:02 Nucleated RBC % (auto) 0 % 02/16/22 13:02 Nucleated RBCs # 0.0 /100WBC 02/16/22 13:02 Specimen Type Arterial 02/16/22 12:23 Sample Site Brachial, right 02/16/22 12:23 ABG pH 7.59 (7.35-7.45) H* 02/16/22 12: ABG pCO2 13.3 mmHg (35-45) L* 02/16/22 12: ABG pO2 111.0 mmHg (80.0-100.0) H 02/16/22 12:23 ABG HCO3 12.7 mmol/L (22-26) L 02/16/22 12:23 ABG O2 Saturation 98.1 02/16/22 12:23 ABG Base Excess -4.2 mmol/L (-2.0-2.0) L 02/16/22 12:23 Hasmukh Test N/a 02/16/22 12:23 A-a O2 Gradient 2.5 mmHg (5-10) L 02/16/22 12:23 Hematocrit 56.3 % (42-52) H 02/16/22 12:23 Hgb O2 Saturation 97.8 % (95-100) 02/16/22 12:23 Carboxyhemoglobin 0.3 %THgb (0.4-20.1) L 02/16/22 12:23 Methemoglobin 0.0 % (0.4-1.5) L 02/16/22 12:23 Total Hemoglobin 18.4 g/dL (14-18) H 02/16/22 12:23 Sodium 138.0 mmol/L (131-143) 02/16/22 12:23 Potassium 3.4 mmol/L (3.5-5.0) L 02/16/22 12:23 Glucose 278.0 mg/dL (70-115) H 02/16/22 12:23 Ionized Calcium 1.1 mmol/L (1.1-1.4) 02/16/22 12:23 O2 Delivery Device Room air 02/16/22 12:23 Radio Script Writer ID [place] 02/16/22 12:23 Sodium 141 mmol/L (136-145) 02/16/22 13:56 Potassium 3.4 mmol/L (3.5-5.1) L 02/16/22 13:56 Chloride 104 mmol/L (98-107) 02/16/22 13:56 Carbon Dioxide 18 mmol/L (22-29) L 02/16/22 13:56 Anion Gap 22.4 (5-19) H 02/16/22 13:56 BUN 19 mg/dL (6-20) 02/16/22 13:56 Creatinine 0.6 mg/dL (0.7-1.2) L 02/16/22 13:56 GFR Calculation 165.5 mL/min (90-130) H 02/16/22 13:56 Glucose 209 mg/dL (65-115) H 02/16/22 13:56 POC Glucose 134 mg/dL (70-110) H 02/16/22 15:52 Estimat Average Glucose 326 02/16/22 13:02 Hemoglobin A1c 13.0 % (4.0-6.0) H 02/16/22 13:02 Calculated Osmolality 300 mOsm/kg (285-295) H 02/16/22 13:56 Calcium 8.3 mg/dL (8.5-10.5) L 02/16/22 13:56 Total Bilirubin 0.6 mg/dL (0.15-1.2) 02/16/22 13:56 AST 15 U/L (0-40) 02/16/22 13:56 ALT 14 U/L (0-41) 02/16/22 13:56 Alkaline Phosphatase 43 IU/L (40-130) 02/16/22 13:56 Total Protein 6.4 g/dL (6.6-8.7) L 02/16/22 13:56 Albumin 4.1 g/dL (3.5-5.2) 02/16/22 13:56 Globulin 2.3 g/dL (1.3-4.6) 02/16/22 13:56 Lipase 12 U/L (13-60) L 02/16/22 13:56 Procalcitonin 0.96 ng/mL (0-0.5) H 02/16/22 13:56 TSH 1.50 uIU/mL (0.27-4.20) 02/16/22 13:56 Urine Color Yellow (Yellow) 02/16/22 13:36 Urine Appearance Clear (CLEAR) 02/16/22 13:36 Urine pH 5 (5-7) 02/16/22 13:36 Ur Specific [place] 1.020 (1.005-1.030) 02/16/22 13:36 Urine Protein 1+ (Negative) H 02/16/22 13:36 Urine Glucose (UA) 4+ (Normal) H 02/16/22 13:36 Urine Ketones 3+ (Negative) H 02/16/22 13:36 Urine Blood Neg (Negative) 02/16/22 13:36 Urine Nitrate Negative (Negative) 02/16/22 13:36 Urine Bilirubin Neg (Negative) 02/16/22 13:36 Urine Urobilinogen Norm mg/dL (Negative) 02/16/22 13:36 Ur Leukocyte Esterase Negative (Negative) 02/16/22 13:36 Urine RBC 0-4 /hpf (0-2) H 02/16/22 13:36 Urine WBC 0-4 /hpf (0-5) H 02/16/22 13:36 Ur Squamous Epith Cells None /hpf (0-5) 02/16/22 13:36 Amorphous Sediment Not Reportable 02/16/22 13:36 Urine Bacteria None /hpf (NONE) 02/16/22 13:36 Hyaline Casts 0-4 /lpf H 02/16/22 13:36 Urine Mucus Trace /hpf 02/16/22 13:36 Urine Opiates Screen Negative ng/mL (Negative) 02/16/22 13:36 Ur Barbiturates Screen Negative ng/mL (Negative) 02/16/22 13:36 Ur Phencyclidine Scrn Negative ng/mL (Negative) 02/16/22 13:36 Ur Amphetamines Screen Negative ng/mL (Negative) 02/16/22 13:36 U Benzodiazepines Scrn Negative ng/mL (Negative) 02/16/22 13:36 Urine Cocaine Screen Negative ng/mL (Negative) 02/16/22 13:36 U Marijuana (THC) Screen Positive ng/mL (Negative) H 02/16/22 13:36 Serum Ketones Positive (Negative) H 02/16/22 13:02 Discharge Plan Discharge Patient Disposition: Admitted As Inpatient Admit Provider: Jase Luna Clinical Impression: Metabolic acidosis with respiratory alkalosis, Noncompliance with diabetes treatment, Abdominal pain Condition: Stable Discharge Orders: Discharge Order (Routine); Ordered 02/17/22 Ordered By: Jase Luna Discharge Diet: Diabetic Discharge Activity: Resume usual activity and Increase activity as tolerated Coding Level of Care Code ED Carry Out Clerk for Chg Fwd Exam Comprehensive
[2022-02-16] MEDS: insulin regular-human 100 units/1 mL 15 UNIT IVP (12:41)
[2022-02-16] MEDS: ondansetron 2 mg/ML SDV 2 mL 4 MG IVP ×3 (12:49→18:22)
[2022-02-16] MEDS: sodium chloride 0.9% 1,000 ML 999 ML IV ×4 (12:53→13:47)
[2022-02-16 12:57] LABS: Alveolar-Arterial Oxygen Gradi 2.5 mmHg (5-10); Arterial Blood Gas Hematocrit 56.3 % (42-52); Base Excess ABG -4.2 mmol/L (-2.0-2.0); Blood Gas Sample Site Brachial, right; Blood Gas Sample Type Arterial; Carboxyhemoglobin 0.3 %THgb (0.4-20.1); HCO3 ABG 12.7 mmol/L (22-26); HGB O2 Sat 97.8 % (95-100); Ionized Calcium Level - ABG 1.1 mmol/L (1.1-1.4); Oxygen Device ROOM AIR; Oxygen Saturation ABG 98.1; Potassium Level - ABG 3.4 mmol/L (3.5-5.0); Total Hemoglobin 18.4 g/dL (14-18)
[2022-02-16 12:58] LABS: ABG PCO2 13.3 mmHg (35-45); ABG PH Result 7.59 (7.35-7.45)
[2022-02-16 13:22] LABS: Basophils # 0.1 10^3/uL (0.0-0.1); Basophils % 0.4 %; Eosinophils % 0.1 %; Hematocrit 52.7 % (42.0-52.0); Hemoglobin 19.3 g/dL (11.7-16.6); Lymphocytes # 0.5 10^3/uL (0.8-4.8); Mean Corpuscular HGB Conc 36.6 g/dL (30.0-36.0); Mean Corpuscular Hemoglobin 31.7 pg (28.0-34.0); Mean Corpuscular Volume 86.5 fl (80-94); Monocytes # 0.8 10^3/uL (0.2-0.9); Monocytes % 4.7 %; Neutrophils # 15.13 10^3/uL (1.8-7.7); Neutrophils % 91.3 %; Nucleated Red Blood Cells % 0 %; Platelet Count 210 10^3/cmm (130-400); Red Blood Count 6.09 10^6/uL (4.1-5.3); Red Cell Distribution Width 12.1 % (12.1-15.1); White Blood Count 16.6 10^3/uL (4.0-10.0)
[2022-02-16 13:33] LABS: Glucose Point of Care 207 mg/dL (70-110)
[2022-02-16 13:43] LABS: Ketone (Acetest) Serum Positive (Negative)
[2022-02-16 14:48] LABS: Alanine Aminotransferase 14 U/L (0-41); Albumin Level 4.1 g/dL (3.5-5.2); Alkaline Phosphatase 43 IU/L (40-130); Anion Gap 22.4 (5-19); Aspartate Amino Transferase 15 U/L (0-40); Blood Urea Nitrogen 19 mg/dL (6-20); Calcium 8.3 mg/dL (8.5-10.5); Carbon Dioxide 18 mmol/L (22-29); Chloride 104 mmol/L (98-107); Globulin 2.3 g/dL (1.3-4.6); Glomerular Filtration Rate 165.5 mL/min (90-130); Glucose 209 mg/dL (65-115); Lipase 12 U/L (13-60); Osmolality Calculated 300 mOsm/kg (285-295); Potassium 3.4 mmol/L (3.5-5.1); Sodium 141 mmol/L (136-145); Total Bilirubin 0.6 mg/dL (0.15-1.2); Total Protein 6.4 g/dL (6.6-8.7)
[2022-02-16 15:00] LABS: Glucose Urine UA 4+ (Normal); Protein Urine 1+ (Negative); Urine Appearance Clear (CLEAR); Urine Color Yellow (Yellow); pH Urine 5 (5-7)
[2022-02-16 15:01] LABS: Add Urine Culture? No; Add Urine Microscopic? YES; Bilirubin Urine Neg (Negative); Blood Urine Neg (Negative); Hyaline Casts Urine 0-4 /lpf; Ketones Urine 3+ (Negative); Leukocyte Esterase Urine Negative (Negative); Mucus Urine TRACE /hpf; Nitrate Urine Negative (Negative); RBC Urine 0-4 /hpf (0-2); Urobilinogen Urine Norm (Negative); WBC Urine 0-4 /hpf (0-5)
--- NOTE | 2022-02-16 15:58 | CTR_ITS ---
PROCEDURE INFORMATION: Exam: CT Abdomen And Pelvis With Contrast Exam date and time: 02/16/2022 4:38 PM Age: 26 years old Clinical indication: Abdominal pain; Generalized; Additional info: N/v TECHNIQUE: Imaging protocol: Computed tomography of the abdomen and pelvis with contrast. Radiation optimization: All CT scans at this facility use at least one of these dose optimization techniques: automated exposure control; mA and/or kV adjustment per patient size (includes targeted exams where dose is matched to clinical indication); or iterative reconstruction. Contrast material: OMNI 300; Contrast volume: 75 ml; Contrast route: INTRAVENOUS (IV); COMPARISON: CT abdomen pelvis w con* [id number] 11/07/2020 4:58 PM RADIATION DOSE METRICS: Total DLP (mGy-cm): 1246.04 FINDINGS: Liver: Normal. No mass. Gallbladder and bile ducts: Normal. No calcified stones. No ductal dilation. Pancreas: Normal. No ductal dilation. Spleen: Normal. No splenomegaly. Adrenal glands: Normal. No mass. Kidneys and ureters: Normal. No hydronephrosis. Stomach and bowel: Prominent fluid in the small bowel without dilation suggestive of an enteritis. Appendix: No evidence of appendicitis. Intraperitoneal space: Unremarkable. No free air. No significant fluid collection. Vasculature: Unremarkable. No abdominal aortic aneurysm. Lymph nodes: Unremarkable. No enlarged lymph nodes. Urinary bladder: Unremarkable as visualized. Reproductive: Unremarkable as visualized. Bones/joints: Unremarkable. No acute fracture. Soft tissues: Unremarkable. CT/CT abdomen pelvis w con* [id number] IMPRESSION: Prominent fluid in the small bowel without dilation suggestive of an enteritis.
--- NOTE | 2022-02-16 16:09 | P.HP_ITS ---
Providers/Chief Complaint Primary Care Provider: MARGE Castellano Chief Complaint: n/v History of Present Illness Salvatore Ott is a 26 year old male with past medical history of recurrent admissions because of DKA from noncompliance, type 1 diabetes mellitus who presents to the ER today because of abdominal pain and multiple episodes of nausea and vomiting since last night. Patient denies any changes in the medication, recent travels, fever, diarrhea, sick contacts. States he has been taking his insulin regularly. In the ER was found to have a white count of 16.6, hemoglobin of 19.3, ABG showing a pH of 7.59, PCO2 of 14, PO2 of 114, chemistry showing sodium 141, potassium of 3.4, carbon dioxide of 18, creatinine of 0.6 with anion gap of 19 with ketones positive. Review of Systems General: Reports: 10 or more systems reviewed and unremarkable except in HPI and below Const: Denies: fever(s), chills, body aches, change in appetite, change in weight, malaise, night sweats, diaphoresis, change in sleep pattern, daytime sleepiness or snoring Eyes: Denies: change in vision, blurry vision, photophobia, eye discomfort or eye discharge ENMT: Denies: throat pain, enlarged tonsils, hoarseness, mouth pain, oral sores, dry mouth, tinnitus, nasal congestion or post nasal drip Card: Denies: chest pain, palpitations, irregular heart rhythm, edema, swelling of feet/ankles, lightheadedness, syncope, pre-syncope, dyspnea on exertion, orthopnea, leg pain with exertion or acrocyanosis Resp: Denies: dyspnea, productive cough, non-productive cough, wheezing, stridor, pain on inspiration, change in phlegm color, hemoptysis or chest congestion GI: Denies: abdominal pain, nausea, vomiting, hematemesis, coffee ground emesis, dysphagia, heartburn, diarrhea, constipation, bloating, GI cramping, change in bowel habits, pain on defecation, hematochezia or melena : Denies: flank pain, difficulty urinating, dysuria, urinary frequency, u rinary urgency, urinary hesitancy, urinary dribbling, difficulty starting urination, change in urine stream, nocturia or hematuria Musc: Denies: neck pain, back pain, extremity pain, joint pain, joint swelling, joint redness, joint stiffness or limited range of motion Neuro: Denies: headache(s), numbness in extremities, weakness in extremities, sensory changes, lack of coordination, difficulty walking, frequent falls, dizziness, vertigo, confusion, Slurred speech present, difficulty communicating thoughts or seizure-like activity Psych: Denies: anxiety, depression, mood swings, panic attacks, hopelessness or irritability Endo: Denies: polyuria, polydipsia, tired all the time, cold intolerance, excessive sweating, flushing or heat intolerance Garett/Lymph: Denies: easy bruising or easy bleeding All/Imm: Denies: tongue swelling, facial swelling or acute wheezing Medications/Allergies Home Medications Medication Instructions Recorded Confirmed Last Taken Type blood-glucose meter,continuous #1 ea 11/26/20 02/16/22 Unknown Rx (Dexcom G6 Duplicating Machine Servicer) blood-glucose sensor (Dexcom G6 #3 ea 11/26/20 02/16/22 Unknown Rx Sensor) blood-glucose transmitter (Dexcom #3 ea 11/26/20 02/16/22 Unknown Rx G6 Transmitter) blood sugar diagnostic #100 ea 03/20/21 02/16/22 Unknown Rx blood sugar diagnostic (Blood #100 ea 03/20/21 02/16/22 Unknown Rx Glucose Test) blood-glucose meter (Blood Glucose #1 ea 03/20/21 02/16/22 Unknown Rx Monitoring) lancets #200 ea 05/17/21 02/16/22 Unknown Rx strips #200 ea 05/17/21 02/16/22 Unknown Rx lancets #200 ea 06/18/21 02/16/22 Unknown Rx strips #1 ea 06/18/21 02/16/22 Unknown Rx multivitamin 1 tab PO DAILY 11/23/21 02/16/22 02/16/22 History insulin aspart U-100 100 unit/mL See Rx Instructions .ROUTE 12/10/21 02/16/22 02/16/22 Rx (3 mL) subcutaneous pen .COMPLEX #15 milliliter 15 units insulin glargine 100 unit/mL (3 See Rx Instructions .ROUTE 12/10/21 02/16/22 02/16/22 Rx mL) subcutaneous pen (Lantus .COMPLEX #90 ml 40 units Solostar U-100 Insulin) Allergies Allergy/AdvReac Type Severity Reaction Status Date / Time promethazine [From Phenergan] Allergy Unknown Verified 02/16/22 12:27 PFSH Acute PFSH: Medical History DKA (diabetic ketoacidoses) DKA (diabetic ketoacidosis) GERD (gastroesophageal reflux disease) High anion gap metabolic acidosis History of pancreatitis Hyperglycemia Hypoglycemia due to insulin Long-term insulin use Marijuana use Methamphetamine abuse Nausea & vomiting Noncompliance with diabetes treatment Pancreatitis Type 1 diabetes With recurrent admissions for DKA, severe Uncontrolled type 1 diabetes mellitus Surgical History No pertinent past surgical history Family History Other Diabetes Social History Smoking and tobacco status: current every day smoker Alcohol intake: never Lives independently: Yes Household members: family Marital status: Single Current occupational status: disabled Vitals/I&O/Wt Last Vital Signs Temp 98.2 F 02/16/22 12:27 Pulse 98 02/16/22 15:03 Resp 19 H 02/16/22 14:33 BP 94/66 02/16/22 15:03 Pulse Ox 95 02/16/22 15:03 02/16/22 02/16/22 02/16/22 06:59 14:59 22:59 Intake Total 0 / 0 Balance 0 / 0 Weight last 48 hrs Weight 63.503 kg Physical Exam Narrative: General: No acute distress, AO x3 HEENT: PERRLA, pupils bilaterally equal and reactive Chest: Normal vesicular breath sounds, no added sounds, equal good air entry bilaterally CVS: S1-S2 regular, no murmurs, no tachycardia, no gallops, no rubs Abdomen: Soft, generalized abdominal tenderness, no organomegaly, bowel sounds present Neuro: No focal deficits, no facial deformity, AO x3, power 5/5 in all limbs Data : 02/16/22 13:02 02/17/22 09:40 A&P Assessment and plan (1) Abdominal pain: Status: Acute (2) Nausea and vomiting: Status: Acute (3) Metabolic acidosis with respiratory alkalosis: Status: Acute Plan Symptoms most likely secondary gastroenteritis. Metabolic acidosis with overcorrection of respiratory alkalosis most likely secondary to mild DKA, excessive vomiting in setting of type [address] abdomen pelvis. Check procalcitonin, UA, drug screen, blood culture, flu swab. Zofran as needed, Protonix IV 40 mg once. Ringer lactate 100 cc/h. Repeat BMP in evening. Carbohydrate consistent diet. Continue home dose of Lantus 40 units twice daily, high-dose sliding scale. Admit to [facility] floor. Attestations Medical Necessity Statement*: Admission for possible more than 2 midnights for management of metabolic acidosis with respiratory alkalosis in a patient with type 1 diabetes mellitus with a history of multiple episodes of DKA currently secondary to gastroenteritis. Time Spent in Patient Care: Greater than 35 minutes Coding Level of Care Code Acute Moving Picture Operator for [facility] Fwd Diagnoses Abdominal pain R10.9 Nausea and vomiting R11.2 Metabolic acidosis with respiratory alkalosis E87.2; E87.3
[2022-02-16 16:12] LABS: ABG PCO2 21.4 mmHg (35-45); Alveolar-Arterial Oxygen Gradi 4.4 mmHg (5-10); Arterial Blood Gas Hematocrit 47.6 % (42-52); Base Excess ABG -4.2 mmol/L (-2.0-2.0); Blood Gas Sample Type Arterial; Carboxyhemoglobin 0.5 %THgb (0.4-20.1); HCO3 ABG 16.6 mmol/L (22-26); Methemoglobin 0.6 % (0.4-1.5); PO2 ABG 86.5 mmHg (80.0-100.0); Potassium Level - ABG 4.1 mmol/L (3.5-5.0); Total Hemoglobin 15.5 g/dL (14-18)
[2022-02-16 16:14] LABS: Blood Gas Sample Site Brachial, right; Oxygen Device ROOM AIR
[2022-02-16] MEDS: iohexol 300 mg/mL 100 mL Btl IV (16:17)
[2022-02-16] MEDS: lactated ringers 1,000 ML 100 ML IV (16:28)
[2022-02-16 16:39] LABS: Procalcitonin 0.96 ng/mL (0-0.5)
[2022-02-16 16:52] LABS: Influenza A by IFA Negative (Negative); Influenza B by IFA Negative (Negative)
--- NOTE | 2022-02-16 16:55 | PC.NURSE ---
Dr. Luna gave verbal orders not to repeat UA. Verbal order read back and accepted.
[2022-02-16 18:08] LABS: Glucose Point of Care 170 mg/dL (70-110)
[2022-02-16] MEDS: pantoprazole 40 mg SDV IVP (18:21)
[2022-02-16] MEDS: insulin lispro 100 unit/1 mL SUBCUT (18:22)
[2022-02-16 18:32] LABS: Lactic Sepsis W/Reflex 1.1 mmol/L (0.5-2.2)
[2022-02-16 19:36] LABS: Amphetamines Screen Urine Negative (Negative); Barbiturates Screen Urine Negative (Negative); Benzodiazepines Screen Urine Negative (Negative); Cocaine Screen Urine Negative (Negative); Opiate Screen Urine Negative (Negative); PCP Screen Urine Negative (Negative); THC Screen Urine Positive (Negative)
[2022-02-16] MEDS: insulin glargine 100 units/1 mL 40 UNIT SUBCUT (20:59)
[2022-02-16] MEDS: enoxaparin 40 mg/0.4 mL Syringe SUBCUT (20:59)
[2022-02-16 21:05] LABS: Glucose Point of Care 134 mg/dL (70-110)
[2022-02-17] VITALS: BP 103/58; PULSE 98; RESP 16; TEMP 36.8; O2SAT 90
[2022-02-17] MEDS: lactated ringers 1,000 ML 100 ML IV (02:42)
[2022-02-17 02:51] LABS: Glucose Point of Care 76 mg/dL (70-110)
[2022-02-17 04:32] VITALS: BP 102/63; PULSE 89; RESP 16; TEMP 36.6; O2SAT 94
[2022-02-17 06:30] LABS: Glucose Point of Care 118 mg/dL (70-110)
[2022-02-17 07:55] VITALS: BP 113/75; PULSE 85; RESP 16; TEMP 37.1; O2SAT 97
[2022-02-17] MEDS: ferrous gluconate 324 mg Tablet PO (09:00)
[2022-02-17 10:24] LABS: Albumin Level 3.8 g/dL (3.5-5.2); Alkaline Phosphatase 39 IU/L (40-130); Blood Urea Nitrogen 9 mg/dL (6-20); Calcium 7.9 mg/dL (8.5-10.5); Carbon Dioxide 18 mmol/L (22-29); Chloride 98 mmol/L (98-107); Globulin 1.8 g/dL (1.3-4.6); Glomerular Filtration Rate 204.3 mL/min (90-130); Glucose 203 mg/dL (65-115); Osmolality Calculated 278 mOsm/kg (285-295); Sodium 132 mmol/L (136-145); Total Bilirubin 0.6 mg/dL (0.15-1.2); Total Protein 5.6 g/dL (6.6-8.7)
[2022-02-17 10:26] LABS: Anion Gap 20.1 (5-19); Potassium 4.1 mmol/L (3.5-5.1)
[2022-02-17 10:27] LABS: Alanine Aminotransferase 14 U/L (0-41); Aspartate Amino Transferase 28 U/L (0-40)
[2022-02-17 10:36] LABS: Magnesium 1.5 mg/dL (1.7-2.3); Phosphorus 2.6 mg/dL (2.5-4.5)
[2022-02-17] MEDS: insulin glargine 100 units/1 mL 40 UNIT SUBCUT (10:55)
--- NOTE | 2022-02-17 11:03 | PC.CHAP ---
Pastoral Care Encounter/Spiritual Assessment Type of Contact [] Declined territory development manager visit [] Patient/Family/Request visit [] Outpatient visit [] Follow-up visit [] Physician referral [] Code/Alert [x] Routine visit [] Staff referral [] Actively dying [] Patient sleeping [] Family support [] [] Out of room [] Palliative care [] [] Receiving care in room [] Pre-surgical visit [] Trauma [] Long length of stay [] ICU visit [] Other: Relational/Emotional Strength [] Patient feels connected with others/family/visitors/staff [] Distress [] Loneliness/isolation [] Abandonment Spirituality of Patient [x] Person of Emily [] Attends Yazidism of their Emily [x] Believes in Prayer [] Reads Bible or Adventist materials [] There are Spiritual issues to be addressed Fisher Trammel Net Interventions [x] Prayer [x] Active listening [x] Non-anxious presence [] Spiritual/emotional support [] Crisis/trauma care [] Spiritual counseling [] Bereavement support [] Provided bereavement packet [] Provided Bible/devotional materials [] Provided toy/stuffed animal, coloring book to patient or family member [] Provided Communion [] Anointing/[place] [] Salvation [x] Completed spiritual assessment [] Other: Impact on Illness or Injury [] Angry [] Fearful [] Anxious [] Often cries [] Exhaustion [] Unable to work [] Unable to attend yazdanism [] Unable to walk/stand [] Unable to read [] Unable to drive [] Unable to eat/drink [] Unable to sleep [] Unable to be with family [] Patient intubated [] Other: Summary Time spent with patient
[2022-02-17 11:13] LABS: Glucose Point of Care 237 mg/dL (70-110)
[2022-02-17 11:54] VITALS: BP 115/78; PULSE 76; RESP 16; TEMP 36.6; O2SAT 96
--- NOTE | 2022-02-17 12:07 | P.DS_ITS ---
Discharge Providers Date of Admission: 02/16/22 16:08 Date of Discharge: February 17, 2022 Attending Provider at Admission: Jase Luna MD Attending Provider at Discharge: Jase Luna MD Primary Care Provider: MARGE Castellano Diagnoses at Discharge Discharge Diagnosis (1) Abdominal pain: Status: Acute (2) Nausea and vomiting: Status: Acute (3) Metabolic acidosis with respiratory alkalosis: Status: Acute Reason for Visit Reason for Visit: n/v Hospital Course Hospital Course Salvatore Ott is a 26 year old male with past medical history of recurrent admissions because of DKA from noncompliance, type 1 diabetes mellitus who presents to the ER today because of abdominal pain and multiple episodes of nausea and vomiting since last night.? Patient denies any changes in the medication, recent travels, fever, diarrhea, sick contacts.? States he has been taking his insulin regularly. In the ER was found to have a white count of 16.6, hemoglobin of 19.3, ABG christian wing a pH of 7.59, PCO2 of 14, PO2 of 114, chemistry showing sodium 141, potassium of 3.4, carbon dioxide of 18, creatinine of 0.6 with anion gap of 19 with ketones positive. Patient admitted to hospital further evaluation and management of gastroenteritis, metabolic acidosis with overcorrection of respiratory alkalosis. He was started on IV hydration. CT abdomen pelvis was done which was consistent with gastroenteritis. He was started on broad-spectrum antibiotics. After IV hydration patient started feeling better, back to his baseline. His electrode abnormality had corrected as well but still had mild anion gap for which he was advised to remain on IV fluids for next 24 hours but patient was insistent on being discharged home. With his history of multiple episodes of leaving AGAINST MEDICAL ADVICE he was discharged home with advised to take oral antibiotics for next 3 days, maintain IV hydration, continue taking his insulins as before and to make sure he follows up with his computer security manager as an outpatient. Physical Exam Narrative: General: No acute distress, AO x3 HEENT: PERRLA, pupils bilaterally equal and reactive Chest: Normal vesicular breath sounds, no added sounds, equal good air entry bilaterally CVS: S1-S2 regular, no murmurs, no tachycardia, no gallops, no rubs Abdomen: Soft, generalized abdominal tenderness, no organomegaly, bowel sounds present Neuro: No focal deficits, no facial deformity, AO x3, power 5/5 in all limbs Discharge Data Studies Completed and Pending Completed Studies During Hospitalization Category Date Time Status CT abdomen pelvis w con* [id number] Urgent Cat Scan 02/16/22 15:58 Completed Pending at discharge Category Date Time Status Blood Culture Stat Lab 02/16/22 18:07 Results Hemoglobin A1C AM LABS Lab 02/17/22 04:00 Received Radiology Impressions Abdomen/Pelvis CT 02/16/22 15:58 IMPRESSION: Prominent fluid in the small bowel without dilation suggestive of an enteritis. Laboratory Results WBC Cancelled 02/17/22 09:40 Corrected WBC Cancelled 02/17/22 09:40 RBC Cancelled 02/17/22 09:40 Hgb Cancelled 02/17/22 09:40 Hct Cancelled 02/17/22 09:40 MCV Cancelled 02/17/22 09:40 MCH Cancelled 02/17/22 09:40 MCHC Cancelled 02/17/22 09:40 RDW Cancelled 02/17/22 09:40 Plt Count Cancelled 02/17/22 09:40 MPV Cancelled 02/17/22 09:40 Gran % Cancelled 02/17/22 09:40 Neut % (Auto) Cancelled 02/17/22 09:40 Lymph % (Auto) Cancelled 02/17/22 09:40 [place] % (Auto) Cancelled 02/17/22 09:40 Eos % (Auto) Cancelled 02/17/22 09:40 Baso % (Auto) Cancelled 02/17/22 09:40 Neut # (Auto) Cancelled 02/17/22 09:40 Lymph # (Auto) Cancelled 02/17/22 09:40 [place] # (Auto) Cancelled 02/17/22 09:40 Eos # (Auto) Cancelled 02/17/22 09:40 Baso # (Auto) Cancelled 02/17/22 09:40 Absolute Gran (auto) Cancelled 02/17/22 09:40 Nucleated RBC % (auto) Cancelled 02/17/22 09:40 Nucleated RBCs # Cancelled 02/17/22 09:40 Specimen Type Arterial 02/16/22 16:10 Sample Site Brachial, right 02/16/22 16:10 ABG pH 7.50 (7.35-7.45) H 02/16/22 16:10 ABG pCO2 21.4 mmHg (35-45) L 02/16/22 16:10 ABG pO2 86.5 mmHg (80.0-100.0) 02/16/22 16:10 ABG HCO3 16.6 mmol/L (22-26) L 02/16/22 16:10 ABG O2 Saturation 97.0 02/16/22 16:10 ABG Base Excess -4.2 mmol/L (-2.0-2.0) L 02/16/22 16:10 Hasmukh Test N/a 02/16/22 16:10 A-a O2 Gradient 4.4 mmHg (5-10) L 02/16/22 16:10 Hematocrit 47.6 % (42-52) 02/16/22 16:10 Hgb O2 Saturation 96.0 % (95-100) 02/16/22 16:10 Carboxyhemoglobin 0.5 %THgb (0.4-20.1) 02/16/22 16:10 Methemoglobin 0.6 % (0.4-1.5) 02/16/22 16:10 Total Hemoglobin 15.5 g/dL (14-18) 02/16/22 16:10 Sodium 142.0 mmol/L (131-143) 02/16/22 16:10 Potassium 4.1 mmol/L (3.5-5.0) 02/16/22 16:10 Glucose 141.0 mg/dL (70-115) H 02/16/22 16:10 Ionized Calcium 1.0 mmol/L (1.1-1.4) L 02/16/22 16:10 O2 Delivery Device Room air 02/16/22 16:10 Staple Side Laster ID Hinja 02/16/22 16:10 Sodium 132 mmol/L (136-145) L 02/17/22 09:40 Potassium 4.1 mmol/L (3.5-5.1) 02/17/22 09:40 Chloride 98 mmol/L (98-107) 02/17/22 09:40 Carbon Dioxide 18 mmol/L (22-29) L 02/17/22 09:40 Anion Gap 20.1 (5-19) H 02/17/22 09:40 BUN 9 mg/dL (6-20) 02/17/22 09:40 Creatinine 0.5 mg/dL (0.7-1.2) L 02/17/22 09:40 GFR Calculation 204.3 mL/min (90-130) H 02/17/22 09:40 Glucose 203 mg/dL (65-115) H 02/17/22 09:40 POC Glucose 237 mg/dL (70-110) H 02/17/22 11:09 Calculated Osmolality 278 mOsm/kg (285-295) L 02/17/22 09:40 Lactic Acid 1.1 mmol/L (0.5-2.2) 02/16/22 18:07 Calcium 7.9 mg/dL (8.5-10.5) L 02/17/22 09:40 Phosphorus 2.6 mg/dL (2.5-4.5) 02/17/22 09:40 Magnesium 1.5 mg/dL (1.7-2.3) L 02/17/22 09:40 Total Bilirubin 0.6 mg/dL (0.15-1.2) 02/17/22 09:40 AST 28 U/L (0-40) 02/17/22 09:40 ALT 14 U/L (0-41) 02/17/22 09:40 Alkaline Phosphatase 39 IU/L (40-130) L 02/17/22 09:40 Total Protein 5.6 g/dL (6.6-8.7) L 02/17/22 09:40 Albumin 3.8 g/dL (3.5-5.2) 02/17/22 09:40 Globulin 1.8 g/dL (1.3-4.6) 02/17/22 09:40 Lipase 12 U/L (13-60) L 02/16/22 13:56 Procalcitonin 0.96 ng/mL (0-0.5) H 02/16/22 13:56 TSH 1.50 uIU/mL (0.27-4.20) 02/16/22 13:56 Urine Color Yellow (Yellow) 02/16/22 13:36 Urine Appearance Clear (CLEAR) 02/16/22 13:36 Urine pH 5 (5-7) 02/16/22 13:36 Ur Specific [place] 1.020 (1.005-1.030) 02/16/22 13:36 Urine Protein 1+ (Negative) H 02/16/22 13:36 Urine Glucose (UA) 4+ (Normal) H 02/16/22 13:36 Urine Ketones 3+ (Negative) H 02/16/22 13:36 Urine Blood Neg (Negative) 02/16/22 13:36 Urine Nitrate Negative (Negative) 02/16/22 13:36 Urine Bilirubin Neg (Negative) 02/16/22 13:36 Urine Urobilinogen Norm mg/dL (Negative) 02/16/22 13:36 Ur Leukocyte Esterase Negative (Negative) 02/16/22 13:36 Urine RBC 0-4 /hpf (0-2) H 02/16/22 13:36 Urine WBC 0-4 /hpf (0-5) H 02/16/22 13:36 Ur Squamous Epith Cells None /hpf (0-5) 02/16/22 13:36 Amorphous Sediment Not Reportable 02/16/22 13:36 Urine Bacteria None /hpf (NONE) 02/16/22 13:36 Hyaline Casts 0-4 /lpf H 02/16/22 13:36 Urine Mucus Trace /hpf 02/16/22 13:36 Urine Opiates Screen Negative ng/mL (Negative) 02/16/22 13:36 Ur Barbiturates Screen Negative ng/mL (Negative) 02/16/22 13:36 Ur Phencyclidine Scrn Negative ng/mL (Negative) 02/16/22 13:36 Ur Amphetamines Screen Negative ng/mL (Negative) 02/16/22 13:36 U Benzodiazepines Scrn Negative ng/mL (Negative) 02/16/22 13:36 Urine Cocaine Screen Negative ng/mL (Negative) 02/16/22 13:36 U Marijuana (THC) Screen Positive ng/mL (Negative) H 02/16/22 13:36 Serum Ketones Positive (Negative) H 02/16/22 13:02 Influenza Type A Ag Negative (Negative) 02/16/22 16:13 Influenza Type B Ag Negative (Negative) 02/16/22 16:13 Vitals Last Vital Signs Temp 97.9 F 02/17/22 11:54 Pulse 76 02/17/22 11:54 Resp 16 02/17/22 11:54 BP 115/78 02/17/22 11:54 Pulse Ox 96 02/17/22 11:54 Discharge Plan Discharge Patient Disposition: Home Condition: Stable Prescriptions: New ciprofloxacin HCl 500 mg tablet 500 mg PO BID Qty: 10 0RF metronidazole [Flagyl] 375 mg capsule 375 mg PO BID 7 Days Qty: 14 0RF Continued (DME) Dexcom G6 Business Account Specialist Misc See Rx Instructions .ROUTE .MEDSUPPLY Qty: 1 0RF Rx Instructions: takes blood sugar (DME) Dexcom G6 Sensor Device See Rx Instructions .ROUTE .MEDSUPPLY Qty: 3 3RF Rx Instructions: use to take blood sugars (DME) Dexcom G6 Transmitter Device See Rx Instructions .ROUTE .MEDSUPPLY Qty: 3 3RF Rx Instructions: used to take blood sugars (DME) strips See Rx Instructions .Route .MEDSUPPLY Qty: 1 3RF Rx Instructions: Check blood sugars 3 times daily, with meals, #200, 3 refills (DME) lancets Misc See Rx Instructions .Route Qty: 200 3RF Rx Instructions: check BS, TID with meals insulin aspart U-100 100 unit/mL (3 mL) insulin pen See Rx Instructions .ROUTE .COMPLEX Qty: 15 3RF Dose Instruction: INJECT UNDER SKIN THREE TIMES DAILY BEFORE MEALS, BASED ON SLIDING SCALE PROVIDED- BACKUP IF PUMP NOT WORKING Rx Instructions: INJECT UNDER SKIN THREE TIMES DAILY BEFORE MEALS, BASED ON SLIDING SCALE PROVIDED- BACKUP IF PUMP NOT WORKING Lantus Solostar U-100 Insulin 100 unit/mL (3 mL) insulin pen See Rx Instructions .ROUTE .COMPLEX Qty: 90 3RF Dose Instruction: INJECT 40 UNITS UNDER SKIN TWICE DAILY - FOR USE OF BACK UP Rx Instructions: INJECT 40 UNITS UNDER SKIN TWICE DAILY - FOR USE OF BACK UP (DME) blood sugar diagnostic Strip See Rx Instructions .Route Qty: 100 0RF Rx Instructions: As directed (DME) Blood Glucose Test Strip See Rx Instructions .Route Qty: 100 0RF Rx Instructions: As directed (DME) blood-glucose meter [Blood Glucose Monitoring] Kit See Rx Instructions .Route Qty: 1 0RF Rx Instructions: As directed (DME) strips See Rx Instructions .Route .MEDSUPPLY Qty: 200 3RF Rx Instructions: Check blood sugars 3 times daily, before meals (DME) lancets See Rx Instructions .Route .MEDSUPPLY Qty: 200 1RF Rx Instructions: Check blood sugars 3 times daily, before meals multivitamin [Men's Multi-Vitamin] Tablet 1 tab PO DAILY 0RF Discharge Orders: Discharge Order (Routine); Ordered 02/17/22 Ordered By: Jase Luna Referrals: Earlene Titus FNP-C [Primary Care Provider] - 7-10 days Evelin Metz MD [Physician] - 7-10 days Discharge Diet: Diabetic Discharge Activity: Resume usual activity and Increase activity as tolerated Patient Instructions: Opioid Safety Activity Restrictions/Additional Instructions: Please make sure you drink at least 2 to 3 L of water daily. Please continue taking insulins as before. Do not miss your insulin dose. Please follow-up with your computer security manager within next 1 to 2 weeks. As discussed in detail please try to abstain from marijuana and amphetamine abuse. Discharge Attestations Time Spent in Discharge Care*: greater than 30 min Specific Discharge Activities: educating patient, discussing with medical case manager/social workers/dc planners, documenting/other paperwork and evaluating patient/reviewing data Status at Discharge: Cognitive status at discharge: cognitively intact , Behavioral status at discharge: cooperative , Functional status at discharge: independent ambulation , Overall status at discharge: patient is back to baseline Quality Metrics Clinical Quality Measures [ No reported AMI, CVA or VTE this stay] Coding Level of Care Code Acute Chg FW DC note Diagnoses Abdominal pain R10.9 Nausea and vomiting R11.2 Metabolic acidosis with respiratory alkalosis E87.2; E87.3
[2022-02-17] MEDS: insulin lispro 100 unit/1 mL SUBCUT (12:27)
[2022-02-17 12:39] VITALS: BP 115/78; PULSE 76; RESP 16; TEMP 36.6; O2SAT 96
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
[2022-02-17 17:07] LABS: Estmated Average Glucose 326
[2022-02-18 07:24] LABS: Glucose Point of Care 134 mg/dL (70-110)
== END 2022-02-17 12:50 | disposition home or self-care (01) | DRG 392 ==
LOC: ER 15:45 → MEDSURG 17:08
PROVIDERS: Admitting Provider Student in an Organized Health Care Education/Training Program; Emergency Provider Family Medicine; PCP Nurse Practitioner Family; Visit Provider Student in an Organized Health Care Education/Training Program
DX: K52.9 Noninfective gastroenteritis and colitis, unspecified (principal); E87.4 Mixed disorder of acid-base balance; E10.65 Type 1 diabetes mellitus with hyperglycemia; K21.9 Gastro-esophageal reflux disease without esophagitis; F15.90 Other stimulant use, unspecified, uncomplicated; F12.90 Cannabis use, unspecified, uncomplicated; F17.200 Nicotine dependence, unspecified, uncomplicated; Z91.14 Patient's other noncompliance with medication regimen
CPT/HCPCS: 36415; 36416; 36600; 74177; 80051; 80053; 80306; 81001; 82009; 82330; 82805; 82962; 83036; 83605; 83690; 83735; 84100; 84145; 84443; 85025; 87040; 87804; 94664; 96361; 96372; 96374; 96375; 99285; C9113; J1650; J1815 ×2; J2405; J7030; Q9967

== ENCOUNTER → 2022-02-25 13:42 | Outpatient (BNVA) | payer MEDICARE, MEDICAID, SELFPAY | PROVIDERS: PCP Nurse Practitioner Family; Visit Provider Nurse Practitioner Family | DX: K52.9 Noninfective gastroenteritis and colitis, unspecified (principal); Z91.19 Patient's noncompliance with other medical treatment and regimen; E10.9 Type 1 diabetes mellitus without complications; M54.9 Dorsalgia, unspecified | CPT/HCPCS: 80053; 85025 ==

== ENCOUNTER → 2022-03-30 15:26 | Outpatient (BNVA) | payer MEDICARE, MEDICAID, SELFPAY | PROVIDERS: PCP Nurse Practitioner Family; Visit Provider Nurse Practitioner Family | DX: R30.0 Dysuria (principal); R31.9 Hematuria, unspecified; R10.9 Unspecified abdominal pain; E10.9 Type 1 diabetes mellitus without complications | CPT/HCPCS: 74018; 80053; 81000; 85025 ==

== ENCOUNTER → 2022-04-29 10:57 | Outpatient (BNVA) | payer MEDICARE, MEDICAID, SELFPAY | PROVIDERS: PCP Nurse Practitioner Family; Visit Provider Internal Medicine | DX: E10.65 Type 1 diabetes mellitus with hyperglycemia (principal); E10.649 Type 1 diabetes mellitus with hypoglycemia without coma; E16.0 Drug-induced hypoglycemia without coma; E78.2 Mixed hyperlipidemia; Z87.19 Personal history of other diseases of the digestive system; F17.200 Nicotine dependence, unspecified, uncomplicated; T38.3X5A Adverse effect of insulin and oral hypoglycemic [antidiabetic] drugs, initial encounter | CPT/HCPCS: 99214 ==

== ENCOUNTER 2022-05-29 09:03 | Inpatient (IN) | payer MEDICARE, MEDICAID, SELFPAY ==
[2022-05-29] VITALS (81 sets, daily range): BP systolic 91–138; BP diastolic 41–80; PULSE 85–123; RESP 13–39; TEMP 36.6; O2SAT 98–100; BMI 25.1
[2022-05-29 09:12] LABS: Glucose Point of Care 475 mg/dL (70-110)
[2022-05-29] MEDS: lactated ringers 1,000 ML 999 ML IV ×2 (09:23→09:47)
[2022-05-29] MEDS: ondansetron 2 mg/ML SDV 2 mL 4 MG IVP (09:23)
[2022-05-29] MEDS: insulin regular-human 100 units/1 mL 10 UNIT IVP (09:28)
[2022-05-29 09:29] LABS: Basophils # 0.1 10^3/uL (0.0-0.1); Basophils % 0.9 %; Eosinophils % 0.1 %; Hematocrit 50.3 % (42.0-52.0); Hemoglobin 16.6 g/dL (11.7-16.6); Lymphocytes # 0.7 10^3/uL (0.8-4.8); Lymphocytes % 10.2 %; Mean Corpuscular Hemoglobin 31.3 pg (28.0-34.0); Mean Corpuscular Volume 94.9 fl (80-94); Mean Platelet Volume 9.9 fL (7.4-10.4); Monocytes # 0.1 10^3/uL (0.2-0.9); Monocytes % 1.8 %; Neutrophils # 5.89 10^3/uL (1.8-7.7); Neutrophils % 86.3 %; Nucleated Red Blood Cells % 0 %; Platelet Count 243 10^3/cmm (130-400); Red Cell Distribution Width 12.1 % (12.1-15.1); White Blood Count 6.8 10^3/uL (4.0-10.0)
[2022-05-29 09:32] LABS: ABG PCO2 21.4 mmHg (35-45); Alveolar-Arterial Oxygen Gradi 1.4 mmHg (5-10); Arterial Blood Gas Hematocrit 51.9 % (42-52); Base Excess ABG -21.3 mmol/L (-2.0-2.0); Blood Gas Sample Site Brachial, left; Blood Gas Sample Type Arterial; Carboxyhemoglobin 1.5 %THgb (0.4-20.1); HCO3 ABG 6.6 mmol/L (22-26); HGB O2 Sat 95.4 % (95-100); Ionized Calcium Level - ABG 1.3 mmol/L (1.1-1.4); Methemoglobin 0.8 % (0.4-1.5); Oxygen Device ROOM AIR; Oxygen Saturation ABG 97.6; Total Hemoglobin 16.9 g/dL (14-18)
[2022-05-29 09:35] LABS: Add Urine Microscopic? NO; Charge for UA Resulting for Rev
[2022-05-29 09:39] LABS: Ketone (Acetest) Serum Positive (Negative); Protein Urine Neg (Negative); Urine Appearance Clear (CLEAR); Urine Color Yellow (Yellow); pH Urine 5 (5-7)
--- NOTE | 2022-05-29 09:39 | W.ED.NAVMDI ---
HPI - Nausea/Vomiting/Diarrhea General: Chief complaint: Nausea/Vomiting/Diarrhea Stated complaint: N/V/ TYPE 1 DIABETIC Time Seen by Provider: 05/29/22 09:04 Source: patient Mode of arrival: EMS History of Present Illness: 27-year-old male presents emergency room with complaints of nausea vomiting. Mr. Ott is a well-known entity to us he frequently presents to the emergency room with DKA. He states he woke up this morning was not feeling well got nauseous and vomited several times he tried to increase his fluid intake took some extra insulin a total of 3 units of regular and his symptoms persisted. Based on his previous experience he felt he knew which direction this was had and he called EMS. On arrival here he is awake and alert he has a normal respiratory rate. He is able to relate a good history. Frequently when Mr. 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 Historically the most common cause for his DKA has been noncompliance. MD elicited complaint: nausea and vomiting Pertinent past history: other (Recurrent DKA) Onset (ago): hour(s) Description of vomiting: watery Associated nausea: Yes Location of pain: Diffuse Radiation: diffuse Pain consistency: constant Quality: cramping Exacerbating factors: none Relieving factors: none Context: other (Diabetes mellitus poor compliance frequent DKA) Associated symtoms: Reports nausea and weakness; Denies altered mental status, anxiety, bloating, change in vision, chest pain, cough, diaphoresis, decreased urine output, dizziness, dysuria, epistaxis, fatigue, fecal incontinence, fevers/chills, headache(s), malaise, myalgias, numbness, palpitations, rash, short of breath, syncope, tenesmus or tinnitus Review of Systems Const: Denies: fever(s), chills, body aches, change in appetite, fatigue, malaise or diaphoresis Eyes: Denies: change in vision ENMT: Denies: throat pain, ear or mastoid pain, tinnitus, nasal discharge, nasal congestion or epistaxis Card: Denies: chest pain, palpitations, edema, syncope, dyspnea on exertion or orthopnea Resp: Denies: dyspnea, productive cough or non-productive cough GI: Reports: abdominal pain, nausea and vomiting; Denies: hematemesis, coffee ground emesis, diarrhea, constipation, bloating, fecal incontinence, hematochezia or melena : Denies: flank pain, difficulty urinating, dysuria, urinary frequency or urinary urgency Skin/Breast: Denies: rash or pruritus Neuro: Denies: headache(s) or dizziness Psych: Denies: anxiety PFSH ED PFSH: Medical History DKA (diabetic ketoacidoses) DKA (diabetic ketoacidosis) GERD (gastroesophageal reflux disease) High anion gap metabolic acidosis History of pancreatitis Hyperglycemia Hypoglycemia due to insulin Long-term insulin use Marijuana use Methamphetamine abuse Nausea & vomiting Noncompliance with diabetes treatment Pancreatitis Type 1 diabetes With recurrent admissions for DKA, severe Uncontrolled type 1 diabetes mellitus Surgical History No pertinent past surgical history Family History Other Diabetes Social History Smoking and tobacco status: current some day smoker Alcohol intake: never Lives independently: Yes Household members: family Marital status: Single Current occupational status: disabled Physical Exam Const: COMMON NORMALS: no acute distress EXAM LIMITATIONS: no altered mental status GENERAL APPEARANCE: cooperative and comfortable ORIENTATION/CONSCIOUSNESS: Yes awake, Yes oriented to person, Yes oriented to place and Yes oriented to time HENMT: COMMON NORMALS: normocephalic, atraumatic and hearing grossly normal bilaterally HEAD & SCALP: normocephalic and atraumatic Resp: COMMON NORMALS: normal respiratory effort, No retractions, No use of accessory muscles and clear to auscultation bilaterally AUSCULTATION: clear to auscultation bilaterally Cardio: COMMON NORMALS: regular rate, regular rhythm and No murmurs present (Cardio) RATE: regular rate RHYTHM: regular rhythm GI: COMMON NORMALS: Soft to palpation and No hepatosplenomegaly present AUSCULTATION: Yes normoactive bowel sounds PALPATION: Yes Soft to palpation, No Tenderness to palpation present (GI), No Guarding due to palpation present (GI) and Yes No hepatosplenomegaly present Extremity: COMMON NORMALS: normal to inspection, capillary refill normal, no clubbing, cyanosis or edema, no calf tenderness and no pedal edema Neuro: SENSORIUM/ORIENTATION: Yes oriented to person, Yes oriented to place and Yes oriented to time Skin: COMMON NORMALS: no rashes or lesions noted GENERAL SKIN EXAM: no rashes or lesions noted Course Vital Signs: Vital signs: Vital Signs Temperature 97.8 F 05/29/22 09:05 Pulse Rate 85 05/29/22 09:05 Respiratory Rate 16 05/29/22 09:05 Blood Pressure 110/64 05/29/22 09:05 Pulse Oximetry 100 05/29/22 09:05 MDM - Nausea/Vomiting/Diarrhea Medical Decision Making DKA. Fluids started Salzmann given insulin. We will start an insulin drip admit to the ICU. Medical Records I reviewed the patient's medical records. Lab Data I reviewed the patient's lab results. : 05/29/22 09:21 05/29/22 09:21 Laboratory Results WBC 6.8 10^3/uL (4.0-10.0) 05/29/22 09:21 RBC 5.30 10^6/uL (4.1-5.3) 05/29/22 09:21 Hgb 16.6 g/dL (11.7-16.6) 05/29/22 09:21 Hct 50.3 % (42.0-52.0) 05/29/22 09:21 MCV 94.9 fl (80-94) H 05/29/22 09:21 MCH 31.3 pg (28.0-34.0) 05/29/22 09:21 MCHC 33.0 g/dL (30.0-36.0) 05/29/22 09:21 RDW 12.1 % (12.1-15.1) 05/29/22 09:21 Plt Count 243 10^3/cmm (130-400) 05/29/22 09:21 MPV 9.9 fL (7.4-10.4) 05/29/22 09:21 Neut % (Auto) 86.3 % 05/29/22 09:21 Lymph % (Auto) 10.2 % 05/29/22 09:21 [place] % (Auto) 1.8 % 05/29/22 09:21 Eos % (Auto) 0.1 % 05/29/22 09:21 Baso % (Auto) 0.9 % 05/29/22 09:21 Neut # (Auto) 5.89 10^3/uL (1.8-7.7) 05/29/22 09:21 Lymph # (Auto) 0.7 10^3/uL (0.8-4.8) L 05/29/22 09:21 [place] # (Auto) 0.1 10^3/uL (0.2-0.9) L 05/29/22 09:21 Eos # (Auto) 0.0 10^3/uL (0.0-0.8) 05/29/22 09:21 Baso # (Auto) 0.1 10^3/uL (0.0-0.1) 05/29/22 09: Nucleated RBC % (auto) 0 % 05/29/22 09: Nucleated RBCs # 0.0 /100WBC 05/29/22 09: Specimen Type Arterial 05/29/22 09:23 Sample Site Brachial, left 05/29/22 09:23 ABG pH 7.10 (7.35-7.45) L* 05/29/22 09:23 ABG pCO2 21.4 mmHg (35-45) L 05/29/22 09:23 ABG pO2 109.0 mmHg (80.0-100.0) H 05/29/22 09:23 ABG HCO3 6.6 mmol/L (22-26) L 05/29/22 09:23 ABG O2 Saturation 97.6 05/29/22 09:23 ABG Base Excess -21.3 mmol/L (-2.0-2.0) L 05/29/22 09:23 Hasmukh Test N/a 05/29/22 09:23 A-a O2 Gradient 1.4 mmHg (5-10) L 05/29/22 09:23 Hematocrit 51.9 % (42-52) 05/29/22 09:23 Hgb O2 Saturation 95.4 % (95-100) 05/29/22 09: Carboxyhemoglobin 1.5 %THgb (0.4-20.1) 05/29/22 09: Methemoglobin 0.8 % (0.4-1.5) 05/29/22 09: Total Hemoglobin 16.9 g/dL (14-18) 05/29/22 09:23 Sodium 137.0 mmol/L (131-143) 05/29/22 09:23 Potassium 5.0 mmol/L (3.5-5.0) 05/29/22 09:23 Glucose 500.0 mg/dL (70-115) H 05/29/22 09:23 Ionized Calcium 1.3 mmol/L (1.1-1.4) 05/29/22 09:23 O2 Delivery Device Room air 05/29/22 09:23 Event Lighting Specialist ID Marcin 05/29/22 09:23 POC Glucose 475 mg/dL (70-110) H 05/29/22 09:08 Urine Color Yellow (Yellow) 05/29/22 09:21 Urine Appearance Clear (CLEAR) 05/29/22 09:21 Urine pH 5 (5-7) 05/29/22 09:21 Ur Specific [place] 1.020 (1.005-1.030) 05/29/22 09:21 Urine Protein Neg (Negative) 05/29/22 09:21 Urine Glucose (UA) 4+ (Normal) H 05/29/22 09:21 Urine Ketones 3+ (Negative) H 05/29/22 09:21 Urine Blood Neg (Negative) 05/29/22 09:21 Urine Nitrate Negative (Negative) 05/29/22 09:21 Urine Bilirubin Neg (Negative) 05/29/22 09:21 Urine Urobilinogen Neg mg/dL (Negative) 05/29/22 09:21 Ur Leukocyte Esterase Negative (Negative) 05/29/22 09:21 Serum Ketones Positive (Negative) H 05/29/22 09:21 Discharge Plan Discharge Patient Disposition: Admitted As Inpatient Clinical Impression: Diabetic keto-acidosis, Type 1 diabetes, Noncompliance with diabetes treatment Condition: Stable Prescriptions: No Action (DME) Dexcom G6 Per Diem Clerk Misc See Rx Instructions .ROUTE .MEDSUPPLY Qty: 1 0RF Rx Instructions: takes blood sugar (DME) Dexcom G6 Sensor Device See Rx Instructions .ROUTE .MEDSUPPLY Qty: 3 3RF Rx Instructions: use to take blood sugars (DME) Dexcom G6 Transmitter Device See Rx Instructions .ROUTE .MEDSUPPLY Qty: 3 3RF Rx Instructions: used to take blood sugars (DME) strips See Rx Instructions .Route .MEDSUPPLY Qty: 1 3RF Rx Instructions: Check blood sugars 3 times daily, with meals, #200, 3 refills (DME) lancets Mis See Rx Instructions .Route Qty: 200 3RF Rx Instructions: check BS, TID with meals insulin aspart U-100 100 unit/mL (3 mL) insulin pen See Rx Instructions .ROUTE .COMPLEX Qty: 15 3RF Dose Instruction: INJECT UNDER SKIN THREE TIMES DAILY BEFORE MEALS, BASED ON SLIDING SCALE PROVIDED- BACKUP IF PUMP NOT WORKING Rx Instructions: INJECT UNDER SKIN THREE TIMES DAILY BEFORE MEALS, BASED ON SLIDING SCALE PROVIDED- BACKUP IF PUMP NOT WORKING Lantus Solostar U-100 Insulin 100 unit/mL (3 mL) insulin pen See Rx Instructions .ROUTE .COMPLEX Qty: 90 3RF Dose Instruction: INJECT 40 UNITS UNDER SKIN TWICE DAILY - FOR USE OF BACK UP Rx Instructions: INJECT 40 UNITS UNDER SKIN TWICE DAILY - FOR USE OF BACK UP (DME) blood sugar diagnostic Strip See Rx Instructions .Route Qty: 100 0RF Rx Instructions: As directed (DME) Blood Glucose Test Strip See Rx Instructions .Route Qty: 100 0RF Rx Instructions: As directed (DME) blood-glucose meter [Blood Glucose Monitoring] Kit See Rx Instructions .Route Qty: 1 0RF Rx Instructions: As directed (DME) strips See Rx Instructions .Route .MEDSUPPLY Qty: 200 3RF Rx Instructions: Check blood sugars 3 times daily, before meals (DME) lancets See Rx Instructions .Route .MEDSUPPLY Qty: 200 1RF Rx Instructions: Check blood sugars 3 times daily, before meals multivitamin Tablet 1 tab PO DAILY Referrals: Earlene Titus FNP-C [Primary Care Provider] - Coding Level of Care Code ED Pensions Retirement Plan Specialist for Chg Fwd Exam Detailed
[2022-05-29 09:40] LABS: Bilirubin Urine Neg (Negative); Blood Urine Neg (Negative); Glucose Urine UA 4+ (Normal); Ketones Urine 3+ (Negative); Leukocyte Esterase Urine Negative (Negative); Nitrate Urine Negative (Negative); Urobilinogen Urine Neg (Negative)
[2022-05-29 10:13] LABS: Alanine Aminotransferase 14 U/L (0-41); Albumin Level 4.5 g/dL (3.5-5.2); Alkaline Phosphatase 70 U/L (40-130); Anion Gap 31.9 (5-19); Aspartate Amino Transferase 13 U/L (0-40); Blood Urea Nitrogen 16 mg/dL (6-20); Calcium 8.7 mg/dL (8.5-10.5); Chloride 98 mmol/L (98-107); Globulin 3.1 g/dL (1.3-4.6); Glomerular Filtration Rate 102.8 mL/min (90-130); Lipase 23 U/L (13-60); Osmolality Calculated 296 mOsm/kg (285-295); Potassium 4.9 mmol/L (3.5-5.1); Sodium 131 mmol/L (136-145); Total Bilirubin 0.4 mg/dL (0.15-1.2); Total Protein 7.6 g/dL (6.6-8.7)
[2022-05-29 10:20] LABS: Glucose Point of Care 421 mg/dL (70-110)
[2022-05-29 10:21] LABS: Carbon Dioxide 6 mmol/L (22-29); Glucose 507 mg/dL (65-115)
[2022-05-29] MEDS: insulin regular-human 250 UNIT in sodium chloride 0.9% 250 ML 10.83 UNIT IV (10:25)
--- NOTE | 2022-05-29 10:30 | PM.HP ---
Providers/Chief Complaint Admitting Physician: Boris Boyer MD Primary Care Provider: MARGE Castellano Chief Complaint: N/V/ TYPE 1 DIABETIC History of Present Illness Salvatore Ott is a 27 year old male with history of insulin-dependent diabetes and multiple admission the past for DKA presented today for recurrent nausea vomiting. Patient is stating that his Dexcom came off because of wet skin on Tuesday and since then he has been using 30 of Lantus with 18 units of sliding scale recently Dr. Metz has decreased the dose of Lantus from 40 units to 30 units, he did not mention any recent fever, shortness of breath, diarrhea, skin rash, he smokes on daily basis no alcohol, on average his blood sugar has been running in 300s in the morning before his breakfast. His symptoms started yesterday around 4 AM he took his insulin but symptoms were not subsiding he decided to come to the hospital for further evaluation. In the ER he has been diagnosed with severe metabolic acidosis, DKA. We have multiple boluses of fluids in the ER I will give him normal saline with potassium at 125 mill per hour along bicarb with D5 Check BMP every 4 hours Patient is awake and alert Afebrile No leukocytosis Mild signs of dehydration I have requested drug screen Review of Systems Const: Denies: body aches Eyes: Denies: change in vision ENMT: Denies: throat pain Card: Denies: chest pain Resp: Denies: dyspnea GI: Reports: abdominal pain, nausea and vomiting : Denies: flank pain Musc: Denies: neck pain Skin/Breast: Denies: rash Neuro: Denies: headache(s) Psych: Denies: anxiety Endo: Denies: polyuria [place]/Lymph: Denies: easy bruising Medications/Allergies Home Medications Medication Instructions Recorded Confirmed Last Taken Type blood sugar diagnostic #100 ea 03/20/21 05/29/22 Unknown Rx blood sugar diagnostic (Blood #100 ea 03/20/21 05/29/22 Unknown Rx Glucose Test) blood-glucose meter (Blood Glucose #1 ea 03/20/21 05/29/22 Unknown Rx Monitoring) lancets #200 ea 05/17/21 05/29/22 Unknown Rx strips #200 ea 05/17/21 05/29/22 Unknown Rx lancets #200 ea 06/18/21 05/29/22 Unknown Rx strips #1 ea 06/18/21 05/29/22 Unknown Rx multivitamin 1 tab PO DAILY 11/23/21 05/29/22 05/29/22 History insulin aspart U-100 100 unit/mL See Rx Instructions .Route 12/10/21 05/29/22 05/29/22 04:00 Rx (3 mL) subcutaneous pen .COMPLEX #15 mL insulin glargine 100 unit/mL (3 See Rx Instructions .Route 12/10/21 05/29/22 05/29/22 Rx mL) subcutaneous pen (Lantus .COMPLEX #90 mL Solostar U-100 Insulin) blood-glucose meter,continuous #1 ea 04/29/22 05/29/22 Unknown Rx (Dexcom G6 Ballast Regulator Operator) blood-glucose sensor (Dexcom G6 #3 ea 04/29/22 05/29/22 Unknown Rx Sensor) blood-glucose transmitter (Dexcom #3 ea 04/29/22 05/29/22 Unknown Rx G6 Transmitter) Allergies Allergy/AdvReac Type Severity Reaction Status Date / Time promethazine [From Phenergan] Allergy Unknown Verified 05/18/22 10:02 PFSH Acute PFSH: Medical History DKA (diabetic ketoacidoses) DKA (diabetic ketoacidosis) GERD (gastroesophageal reflux disease) High anion gap metabolic acidosis History of pancreatitis Hyperglycemia Hypoglycemia due to insulin Long-term insulin use Marijuana use Methamphetamine abuse Nausea & vomiting Noncompliance with diabetes treatment Pancreatitis Type 1 diabetes With recurrent admissions for DKA, severe Uncontrolled type 1 diabetes mellitus Surgical History No pertinent past surgical history Family History Other Diabetes Social History Smoking and tobacco status: current some day smoker Alcohol intake: never Lives independently: Yes Household members: family Marital status: Single Current occupational status: disabled Vitals/I&O/Wt Last Vital Signs Temp 97.8 F 05/29/22 09:05 Pulse 95 05/29/22 10:00 Resp 24 H 05/29/22 10:00 BP 110/64 05/29/22 09:05 Pulse Ox 99 05/29/22 10:11 O2 Del Method 05/29/22 10:00 05/28/22 05/29/22 05/29/22 22:59 06:59 14:59 Intake Total 399.6 / 399.6 Balance 399.6 / 399.6 Weight last 48 hrs Weight 64.438 kg Weight 68.492 kg Physical Exam Narrative: Young male Slightly looks dehydrated Awake and alert Nonfocal neuro exam Abdomen soft S1, S2 Currently on room air Nonfocal neuro exam Pleasant and cooperative No skin rash No active emesis Appropriate mood and affect Data : 05/29/22 09:21 05/29/22 09:21 A&P Assessment and plan (1) Type 1 diabetes: (2) Abdominal pain: (3) Diabetic keto-acidosis: Plan DKA Start bicarb drip Normal saline with potassium supplementation Continue insulin drip BMP every 4 hours N.p.o. Patient's blood sugar has been running in 300s in the morning At home taking Lantus 30 units along 18 units of sliding scale 6 units Premeal I will also request drug screen He is n.p.o. for now Let him eat once gap closes Only time will need to stop insulin replacement potassium is below 3.5 1 blood sugar is below 250 add D5 half-normal saline with potassium at 125 mill per hour Hemodynamically stable No signs of infection Attestations Medical Necessity Statement*: Anticipating more than 2 midnights for management of DKA Time Spent in Patient Care: 40 Coding Level of Care Code Acute Paint Laboratory Technician for [facility] Fwd Diagnoses Type 1 diabetes E10.9 Abdominal pain R10.9 Diabetic keto-acidosis E11.10
[2022-05-29 11:30] LABS: Glucose Point of Care 319 mg/dL (70-110)
[2022-05-29] MEDS: sodium chlor 0.9% + KCl 40 mEq 40 MEQ/1,000 ML BAG 125 MEQ IV (11:46)
[2022-05-29] MEDS: sodium bicarbonate 150 MEQ in dextrose 5% 1,000 ML 100 MEQ IV (11:47)
[2022-05-29 12:12] LABS: Blood Urea Nitrogen 15 mg/dL (6-20); Calcium 8.7 mg/dL (8.5-10.5); Chloride 102 mmol/L (98-107); Glomerular Filtration Rate 102.8 mL/min (90-130); Glucose 304 mg/dL (65-115); Osmolality Calculated 290 mOsm/kg (285-295); Phosphorus 2.5 mg/dL (2.5-4.5); Sodium 134 mmol/L (136-145)
[2022-05-29 12:15] LABS: Anion Gap 27.4 (5-19); Potassium 4.4 mmol/L (3.5-5.1)
[2022-05-29 12:16] LABS: Amphetamines Screen Urine Negative (Negative); Barbiturates Screen Urine Negative (Negative); Benzodiazepines Screen Urine Negative (Negative); Cocaine Screen Urine Negative (Negative); Opiate Screen Urine Negative (Negative); PCP Screen Urine Negative (Negative); THC Screen Urine Negative (Negative)
[2022-05-29 12:16] LABS: Carbon Dioxide 9 mmol/L (22-29)
[2022-05-29 12:33] LABS: Glucose Point of Care 260 mg/dL (70-110)
[2022-05-29 12:35] LABS: Estmated Average Glucose 258; Hemoglobin A1C 10.6 % (4.0-6.0)
[2022-05-29 13:42] LABS: Glucose Point of Care 191 mg/dL (70-110)
[2022-05-29 14:42] LABS: Glucose Point of Care 153 mg/dL (70-110)
[2022-05-29 15:21] LABS: Blood Urea Nitrogen 13 mg/dL (6-20); Calcium 8.7 mg/dL (8.5-10.5); Carbon Dioxide 16 mmol/L (22-29); Chloride 105 mmol/L (98-107); Glomerular Filtration Rate 117.8 mL/min (90-130); Glucose 166 mg/dL (65-115); Osmolality Calculated 288 mOsm/kg (285-295); Sodium 137 mmol/L (136-145)
[2022-05-29 15:29] LABS: Glucose Point of Care 127 mg/dL (70-110)
[2022-05-29 15:31] LABS: Anion Gap 20.1 (5-19); Potassium 4.1 mmol/L (3.5-5.1)
[2022-05-29] MEDS: sodium chloride 0.9% 1,000 ML 100 ML IV (16:15)
[2022-05-29] MEDS: insulin glargine 100 units/1 mL 35 UNIT SUBCUT (16:28)
--- NOTE | 2022-05-29 16:35 | PC.NURSE ---
Patient wanting to discharge called Dr. Boyer and he wanted to leave AMA. Patient was educated on risks of leaving AMA including . Patient aware and still wants to leave against medical advice Dr Boyer aware.
[2022-05-29 16:37] LABS: Glucose Point of Care 136 mg/dL (70-110)
--- NOTE | 2022-05-29 16:39 | PC.NURSE ---
All IVs removed and personal belongings are with patient. Patient is awaiting his ride to leave hospital.
--- NOTE | 2022-06-01 13:55 | PM.DCS ---
Discharge Providers Date of Admission: 05/29/22 10:10 Date of Discharge: June 01, 2022 Attending Provider at Admission: Boris Boyer MD Attending Provider at Discharge: Boris Boyer MD Primary Care Provider: MARGE Castellano Diagnoses at Discharge Discharge Diagnosis (1) Type 1 diabetes: Status: Acute Permanent problem details: With recurrent admissions for DKA, severe (2) Abdominal pain: Status: Acute (3) Diabetic keto-acidosis: Status: Acute Reason for Visit Reason for Visit: N/V/ TYPE 1 DIABETIC Hospital Course Hospital Course PT left AMA as soon as DKA resolved Discharge Data Studies Completed and Pending Laboratory Results WBC 6.8 10^3/uL (4.0-10.0) 05/29/22 09:21 RBC 5.30 10^6/uL (4.1-5.3) 05/29/22 09:21 Hgb 16.6 g/dL (11.7-16.6) 05/29/22 09:21 Hct 50.3 % (42.0-52.0) 05/29/22 09:21 MCV 94.9 fl (80-94) H 05/29/22 09:21 MCH 31.3 pg (28.0-34.0) 05/29/22 09:21 MCHC 33.0 g/dL (30.0-36.0) 05/29/22 09:21 RDW 12.1 % (12.1-15.1) 05/29/22 09:21 Plt Count 243 10^3/cmm (130-400) 05/29/22 09:21 MPV 9.9 fL (7.4-10.4) 05/29/22 09:21 Neut % (Auto) 86.3 % 05/29/22 09:21 Lymph % (Auto) 10.2 % 05/29/22 09:21 [place] % (Auto) 1.8 % 05/29/22 09:21 Eos % (Auto) 0.1 % 05/29/22 09:21 Baso % (Auto) 0.9 % 05/29/22 09:21 Neut # (Auto) 5.89 10^3/uL (1.8-7.7) 05/29/22 09:21 Lymph # (Auto) 0.7 10^3/uL (0.8-4.8) L 05/29/22 09:21 [place] # (Auto) 0.1 10^3/uL (0.2-0.9) L 05/29/22 09:21 Eos # (Auto) 0.0 10^3/uL (0.0-0.8) 05/29/22 09:21 Baso # (Auto) 0.1 10^3/uL (0.0-0.1) 05/29/22 09:21 Nucleated RBC % (auto) 0 % 05/29/22 09:21 Nucleated RBCs # 0.0 /100WBC 05/29/22 09:21 Specimen Type Arterial 05/29/22 09:23 Sample Site Brachial, left 05/29/22 09:23 ABG pH 7.10 (7.35-7.45) L* 05/29/22 09:23 ABG pCO2 21.4 mmHg (35-45) L 05/29/22 09:23 ABG pO2 109.0 mmHg (80.0-100.0) H 05/29/22 09:23 ABG HCO3 6.6 mmol/L (22-26) L 05/29/22 09:23 ABG O2 Saturation 97.6 05/29/22 09:23 ABG Base Excess -21.3 mmol/L (-2.0-2.0) L 05/29/22 09:23 Hasmukh Test N/a 05/29/22 09:23 A-a O2 Gradient 1.4 mmHg (5-10) L 05/29/22 09:23 Hematocrit 51.9 % (42-52) 05/29/22 09:23 Hgb O2 Saturation 95.4 % (95-100) 05/29/22 09:23 Carboxyhemoglobin 1.5 %THgb (0.4-20.1) 05/29/22 09:23 Methemoglobin 0.8 % (0.4-1.5) 05/29/22 09:23 Total Hemoglobin 16.9 g/dL (14-18) 05/29/22 09:23 Sodium 137.0 mmol/L (131-143) 05/29/22 09:23 Potassium 5.0 mmol/L (3.5-5.0) 05/29/22 09:23 Glucose 500.0 mg/dL (70-115) H 05/29/22 09:23 Ionized Calcium 1.3 mmol/L (1.1-1.4) 05/29/22 09:23 O2 Delivery Device Room air 05/29/22 09:23 FiO2 21.0 % 05/29/22 09:23 [address] Flusher Driver ID Marcin 05/29/22 09:23 Sodium 137 mmol/L (136-145) 05/29/22 14:38 Potassium 4.1 mmol/L (3.5-5.1) 05/29/22 14:38 Chloride 105 mmol/L (98-107) 05/29/22 14:38 Carbon Dioxide 16 mmol/L (22-29) L 05/29/22 14:38 Anion Gap 20.1 (5-19) H 05/29/22 14:38 BUN 13 mg/dL (6-20) 05/29/22 14:38 Creatinine 0.8 mg/dL (0.7-1.2) 05/29/22 14:38 GFR Calculation 117.8 mL/min (90-130) 05/29/22 14:38 Glucose 166 mg/dL (65-115) H 05/29/22 14:38 POC Glucose 136 mg/dL (70-110) H 05/29/22 16:33 Estimat Average Glucose 258 05/29/22 09:21 Hemoglobin A1c 10.6 % (4.0-6.0) H 05/29/22 09:21 Calculated Osmolality 288 mOsm/kg (285-295) 05/29/22 14:38 Calcium 8.7 mg/dL (8.5-10.5) 05/29/22 14:38 Phosphorus 2.5 mg/dL (2.5-4.5) 05/29/22 11:45 Magnesium 2.0 mg/dL (1.7-2.3) 05/29/22 09:21 Magnesium Cancelled 05/29/22 09:21 Total Bilirubin 0.4 mg/dL (0.15-1.2) 05/29/22 09:21 AST 13 U/L (0-40) 05/29/22 09:21 ALT 14 U/L (0-41) 05/29/22 09:21 Alkaline Phosphatase 70 U/L (40-130) 05/29/22 09:21 Total Protein 7.6 g/dL (6.6-8.7) 05/29/22 09:21 Albumin 4.5 g/dL (3.5-5.2) 05/29/22 09:21 Globulin 3.1 g/dL (1.3-4.6) 05/29/22 09:21 Lipase 23 U/L (13-60) 05/29/22 09:21 Lipase Cancelled 05/29/22 09:21 Urine Color Yellow (Yellow) 05/29/22 09:21 Urine Appearance Clear (CLEAR) 05/29/22 09:21 Urine pH 5 (5-7) 05/29/22 09:21 Ur Specific [place] 1.020 (1.005-1.030) 05/29/22 09:21 Urine Protein Neg (Negative) 05/29/22 09:21 Urine Glucose (UA) 4+ (Normal) H 05/29/22 09:21 Urine Ketones 3+ (Negative) H 05/29/22 09:21 Urine Blood Neg (Negative) 05/29/22 09:21 Urine Nitrate Negative (Negative) 05/29/22 09:21 Urine Bilirubin Neg (Negative) 05/29/22 09:21 Urine Urobilinogen Neg mg/dL (Negative) 05/29/22 09:21 Ur Leukocyte Esterase Negative (Negative) 05/29/22 09:21 Urine Opiates Screen Negative ng/mL (Negative) 05/29/22 11:54 Ur Barbiturates Screen Negative ng/mL (Negative) 05/29/22 11:54 Ur Phencyclidine Scrn Negative ng/mL (Negative) 05/29/22 11:54 Ur Amphetamines Screen Negative ng/mL (Negative) 05/29/22 11:54 U Benzodiazepines Scrn Negative ng/mL (Negative) 05/29/22 11:54 Urine Cocaine Screen Negative ng/mL (Negative) 05/29/22 11:54 U Marijuana (THC) Screen Negative ng/mL (Negative) 05/29/22 11:54 Serum Ketones Positive (Negative) H 05/29/22 09:21 Vitals Last Vital Signs Temp 97.8 F 05/29/22 16:51 Pulse 98 05/29/22 16:51 Resp 21 H 05/29/22 16:51 BP 113/70 05/29/22 16:51 Pulse Ox 100 05/29/22 13:10 O2 Del Method 05/29/22 10:00 Discharge Plan Discharge Patient Disposition: Home Condition: Stable Prescriptions: No Action (DME) Dexcom G6 Motel Front Desk Clerk Misc See Rx Instructions .ROUTE .MEDSUPPLY Qty: 1 0RF Rx Instructions: takes blood sugar (DME) Dexcom G6 Sensor Device See Rx Instructions .ROUTE .MEDSUPPLY Qty: 3 3RF Rx Instructions: use to take blood sugars (DME) Dexcom G6 Transmitter Device See Rx Instructions .ROUTE .MEDSUPPLY Qty: 3 3RF Rx Instructions: used to take blood sugars (DME) strips See Rx Instructions .Route .MEDSUPPLY Qty: 1 3RF Rx Instructions: Check blood sugars 3 times daily, with meals, #200, 3 refills (DME) lancets Misc See Rx Instructions .Route Qty: 200 3RF Rx Instructions: check BS, TID with meals insulin aspart U-100 100 unit/mL (3 mL) insulin pen See Rx Instructions .ROUTE .COMPLEX Qty: 15 3RF Dose Instruction: INJECT UNDER SKIN THREE TIMES DAILY BEFORE MEALS, BASED ON SLIDING SCALE PROVIDED- BACKUP IF PUMP NOT WORKING Rx Instructions: INJECT UNDER SKIN THREE TIMES DAILY BEFORE MEALS, BASED ON SLIDING SCALE PROVIDED- BACKUP IF PUMP NOT WORKING Lantus Solostar U-100 Insulin 100 unit/mL (3 mL) insulin pen See Rx Instructions .ROUTE .COMPLEX Qty: 90 3RF Dose Instruction: INJECT 40 UNITS UNDER SKIN TWICE DAILY - FOR USE OF BACK UP Rx Instructions: INJECT 40 UNITS UNDER SKIN TWICE DAILY - FOR USE OF BACK UP (DME) blood sugar diagnostic Strip See Rx Instructions .Route Qty: 100 0RF Rx Instructions: As directed (DME) Blood Glucose Test Strip See Rx Instructions .Route Qty: 100 0RF Rx Instructions: As directed (DME) blood-glucose meter [Blood Glucose Monitoring] Kit See Rx Instructions .Route Qty: 1 0RF Rx Instructions: As directed (DME) strips See Rx Instructions .Route .MEDSUPPLY Qty: 200 3RF Rx Instructions: Check blood sugars 3 times daily, before meals (DME) lancets See Rx Instructions .Route .MEDSUPPLY Qty: 200 1RF Rx Instructions: Check blood sugars 3 times daily, before meals multivitamin Tablet 1 tab PO DAILY Referrals: Earlene Titus FNP-C [Primary Care Provider] - Patient Instructions: Opioid Safety Discharge Attestations Time Spent in Discharge Care*: less than 30 min Status at Discharge: Cognitive status at discharge: cognitively intact, Behavioral status at discharge: cooperative, Quality Metrics Clinical Quality Measures [ No reported AMI, CVA or VTE this stay] Coding Level of Care Code Acute Chg FW DC note Diagnoses Type 1 diabetes E10.9 Abdominal pain R10.9 Diabetic keto-acidosis E11.10
== END 2022-05-29 16:52 | disposition left against medical advice (07) | DRG 639 ==
LOC: ER 09:50 → ICU 12:09
PROVIDERS: Admitting Provider Internal Medicine; Emergency Provider Family Medicine; PCP Nurse Practitioner Family; Visit Provider Internal Medicine
DX: E10.10 Type 1 diabetes mellitus with ketoacidosis without coma (principal); Z79.4 Long term (current) use of insulin; F17.200 Nicotine dependence, unspecified, uncomplicated; Z91.19 Patient's noncompliance with other medical treatment and regimen; Z53.29 Procedure and treatment not carried out because of patient's decision for other reasons
CPT/HCPCS: 36415; 36416; 36600; 80048; 80051; 80053; 80306; 81003; 82009; 82330; 82805; 82962; 83036; 83690; 83735; 84100; 85025; 96365; 96372; 96375; 99285; J1815; J2405; J7030; J7050

== ENCOUNTER 2022-06-16 05:41 | Observation (INO) | payer MEDICARE, MEDICAID, SELFPAY ==
[2022-06-16] VITALS (117 sets, daily range): BP systolic 97–146; BP diastolic 53–94; PULSE 88–153; RESP 12–39; TEMP 36.7–37.2; O2SAT 94–100; BMI 24.1
[2022-06-16 06:00] LABS: Basophils # 0.1 10^3/uL (0.0-0.1); Basophils % 0.9 %; Lymphocytes # 0.6 10^3/uL (0.8-4.8); Mean Corpuscular Hemoglobin 31.7 pg (28.0-34.0); Mean Corpuscular Volume 93.5 fl (80-94); Mean Platelet Volume 10.2 fL (7.4-10.4); Monocytes # 0.2 10^3/uL (0.2-0.9); Neutrophils # 8.11 10^3/uL (1.8-7.7); Neutrophils % 88.5 %; Nucleated Red Blood Cells % 0 %; Platelet Count 242 10^3/cmm (130-400); Red Blood Count 5.67 10^6/uL (4.1-5.3); White Blood Count 9.2 10^3/uL (4.0-10.0)
[2022-06-16 06:01] LABS: Arterial Blood Gas Hematocrit 54.4 % (42-52); Blood Gas Sample Site Brachial, right; Blood Gas Sample Type Arterial; Carboxyhemoglobin 1.1 %THgb (0.4-20.1); HCO3 ABG 4.9 mmol/L (22-26); HGB O2 Sat 96.5 % (95-100); Methemoglobin 0.5 % (0.4-1.5); Oxygen Device ROOM AIR; Total Hemoglobin 17.8 g/dL (14-18)
[2022-06-16 06:02] LABS: ABG PCO2 16.7 mmHg (35-45); ABG PH Result 7.08 (7.35-7.45)
[2022-06-16] MEDS: lactated ringers 1,000 ML 999 ML IV ×2 (06:18→06:19)
[2022-06-16] MEDS: insulin regular-human 100 units/1 mL 10 UNIT IVP (06:22)
--- NOTE | 2022-06-16 06:22 | W.ED.NAVMDI ---
HPI - Nausea/Vomiting/Diarrhea General: Chief complaint: Nausea/Vomiting/Diarrhea Stated complaint: Possible DKA Time Seen by Provider: 06/16/22 06:02 Source: patient Mode of arrival: EMS Limitations: altered mental status History of Present Illness: 27-year-old male well-known to the ED. He returns emergency room with persistent nausea vomiting he states began last night he did take his regular long-acting insulin last night took another 15 units this morning. Despite this he has had polydipsia polyuria and persistent nausea vomiting abdominal cramping. Patient has had multiple hospitalizations in the past for DKA. Presents again today in DKA per history and exam with typical clue small breathing. He is awake and able answer questions. Denies any recent illnesses. Denies any medication on symptoms coffee-ground emesis no dysuria urgency or frequency some mild abdominal cramping this seemed to begin after his vomiting started. MD elicited complaint: nausea and vomiting Onset (ago): hour(s) Description of vomiting: watery and bilious Associated nausea: Yes Associated abdominal pain: Yes Location of pain: Diffuse Pain consistency: intermittent Severity: moderate Quality: cramping Exacerbating factors: none Relieving factors: none Associated symtoms: Reports altered mental status, fecal incontinence and nausea; Denies anxiety, chest pain, dysuria, fatigue or malaise Treatment prior to arrival: none (Insulin) Review of Systems Const: Denies: fever(s), chills, body aches, change in appetite, fatigue or malaise ENMT: Denies: throat pain, ear or mastoid pain, nasal discharge or nasal congestion Card: Denies: chest pain, edema, dyspnea on exertion or orthopnea Resp: Denies: dyspnea, productive cough or non-productive cough GI: Reports: nausea and fecal incontinence : Denies: flank pain, dysuria, urinary frequency or urinary urgency Skin/Breast: Denies: rash or pruritus Psych: Denies: anxiety PFSH ED PFSH: Medical History DKA (diabetic ketoacidoses) DKA (diabetic ketoacidosis) GERD (gastroesophageal reflux disease) High anion gap metabolic acidosis History of pancreatitis Hyperglycemia Hypoglycemia due to insulin Long-term insulin use Marijuana use Methamphetamine abuse Nausea & vomiting Noncompliance with diabetes treatment Pancreatitis Type 1 diabetes With recurrent admissions for DKA, severe Uncontrolled type 1 diabetes mellitus Surgical History No pertinent past surgical history Family History Other Diabetes Social History Smoking and tobacco status: current some day smoker Alcohol intake: never Lives independently: Yes Household members: family Marital status: Single Current occupational status: disabled Physical Exam Const: COMMON NORMALS: no acute distress EXAM LIMITATIONS: altered mental status GENERAL APPEARANCE: cooperative and comfortable ORIENTATION/CONSCIOUSNESS: Yes awake, Yes oriented to person, Yes oriented to place and Yes oriented to time HENMT: COMMON NORMALS: normocephalic, atraumatic and hearing grossly normal bilaterally HEAD & SCALP: normocephalic and atraumatic Resp: COMMON NORMALS: normal respiratory effort, No retractions, No use of accessory muscles and clear to auscultation bilaterally AUSCULTATION: clear to auscultation bilaterally Cardio: COMMON NORMALS: regular rhythm and No murmurs present (Cardio) RATE: tachycardic RHYTHM: regular rhythm GI: COMMON NORMALS: Soft to palpation and No hepatosplenomegaly present AUSCULTATION: Yes normoactive bowel sounds PALPATION: Yes Soft to palpation, No Tenderness to palpation present (GI), No Guarding due to palpation present (GI) and Yes No hepatosplenomegaly present Extremity: COMMON NORMALS: normal to inspection, capillary refill normal, no clubbing, cyanosis or edema, no calf tenderness and no pedal edema Neuro: SENSORIUM/ORIENTATION: Yes oriented to person, Yes oriented to place and Yes oriented to time Skin: COMMON NORMALS: no rashes or lesions noted GENERAL SKIN EXAM: no rashes or lesions noted Course Vital Signs: Vital signs: Vital Signs Temperature 98.9 F 06/16/22 05:47 Pulse Rate 113 H 06/16/22 07:39 Respiratory Rate 21 H 06/16/22 07:39 Blood Pressure 120/70 06/16/22 07:39 Pulse Oximetry 99 06/16/22 07:39 Oxygen Delivery Me thod 06/16/22 07:39 MDM - Nausea/Vomiting/Diarrhea Medical Decision Making DKA. Admit to ICU we will discussed with hospitalist orders written treatment initiated in the ER. Medical Records I reviewed the patient's medical records. Lab Data I reviewed the patient's lab results. : 06/16/22 05:54 06/16/22 05:54 Laboratory Results WBC 9.2 10^3/uL (4.0-10.0) 06/16/22 05:54 RBC 5.67 10^6/uL (4.1-5.3) H 06/16/22 05:54 Hgb 18.0 g/dL (11.7-16.6) H 06/16/22 05:54 Hct 53.0 % (42.0-52.0) H 06/16/22 05:54 MCV 93.5 fl (80-94) 06/16/22 05:54 MCH 31.7 pg (28.0-34.0) 06/16/22 05:54 MCHC 34.0 g/dL (30.0-36.0) 06/16/22 05:54 RDW 13.0 % (12.1-15.1) 06/16/22 05:54 Plt Count 242 10^3/cmm (130-400) 06/16/22 05:54 MPV 10.2 fL (7.4-10.4) 06/16/22 05:54 Neut % (Auto) 88.5 % 06/16/22 05:54 Lymph % (Auto) 7.0 % 06/16/22 05:54 [place] % (Auto) 2.0 % 06/16/22 05:54 Eos % (Auto) 0.0 % 06/16/22 05:54 Baso % (Auto) 0.9 % 06/16/22 05:54 Neut # (Auto) 8.11 10^3/uL (1.8-7.7) H 06/16/22 05:54 Lymph # (Auto) 0.6 10^3/uL (0.8-4.8) L 06/16/22 05:54 [place] # (Auto) 0.2 10^3/uL (0.2-0.9) 06/16/22 05:54 Eos # (Auto) 0.0 10^3/uL (0.0-0.8) 06/16/22 05:54 Baso # (Auto) 0.1 10^3/uL (0.0-0.1) 06/16/22 05:54 Nucleated RBC % (auto) 0 % 06/16/22 05:54 Nucleated RBCs # 0.0 /100WBC 06/16/22 05:54 Specimen Type Arterial 06/16/22 06:00 Sample Site Brachial, right 06/16/22 06:00 ABG pH 7.08 (7.35-7.45) L* 06/16/22 06:00 ABG pCO2 16.7 mmHg (35-45) L* 06/16/22 06:00 ABG pO2 124.0 mmHg (80.0-100.0) H 06/16/22 06:00 ABG HCO3 4.9 mmol/L (22-26) L 06/16/22 06:00 ABG Base Excess -23.0 mmol/L (-2.0-2.0) L 06/16/22 06:00 Hasmukh Test N/a 06/16/22 06:00 Hematocrit 54.4 % (42-52) H 06/16/22 06:00 Hgb O2 Saturation 96.5 % (95-100) 06/16/22 06:00 Carboxyhemoglobin 1.1 %THgb (0.4-20.1) 06/16/22 06:00 Methemoglobin 0.5 % (0.4-1.5) 06/16/22 06:00 Total Hemoglobin 17.8 g/dL (14-18) 06/16/22 06:00 O2 Delivery Device Room air 06/16/22 06:00 Plating Tank Operator Apprentice ID Hinja 06/16/22 06:00 Sodium 133 mmol/L (136-145) L 06/16/22 05:54 Potassium 4.7 mmol/L (3.5-5.1) 06/16/22 05:54 Chloride 94 mmol/L (98-107) L 06/16/22 05:54 Carbon Dioxide 6 mmol/L (22-29) L* 06/16/22 05:54 Anion Gap 37.7 (5-19) H 06/16/22 05:54 BUN 14 mg/dL (6-20) 06/16/22 05:54 Creatinine 0.9 mg/dL (0.7-1.2) 06/16/22 05:54 GFR Calculation 102.8 mL/min (90-130) 06/16/22 05:54 Glucose 418 mg/dL (65-115) H 06/16/22 05:54 POC Glucose 337 mg/dL (70-110) H 06/16/22 07:02 POC Glucose 360 mg/dL (70-110) H 06/16/22 07:02 Calculated Osmolality 294 mOsm/kg (285-295) 06/16/22 05:54 Lactic Acid 1.8 mmol/L (0.5-2.2) 06/16/22 05:54 Lactate Cancelled 06/16/22 05:54 Calcium 9.6 mg/dL (8.5-10.5) 06/16/22 05:54 Magnesium 1.9 mg/dL (1.7-2.3) 06/16/22 05:54 Total Bilirubin 0.4 mg/dL (0.15-1.2) 06/16/22 05:54 AST 18 U/L (0-40) 06/16/22 05:54 ALT 18 U/L (0-41) 06/16/22 05:54 Alkaline Phosphatase 72 U/L (40-130) 06/16/22 05:54 Total Protein 8.5 g/dL (6.6-8.7) 06/16/22 05:54 Albumin 5.3 g/dL (3.5-5.2) H 06/16/22 05:54 Globulin 3.2 g/dL (1.3-4.6) 06/16/22 05:54 Lipase 170 U/L (13-60) H 06/16/22 05:54 Urine Color Yellow (Yellow) 06/16/22 05:54 Urine Appearance Clear (CLEAR) 06/16/22 05:54 Urine pH 5 (5-7) 06/16/22 05:54 Ur Specific [place] 1.020 (1.005-1.030) 06/16/22 05:54 Urine Protein 1+ (Negative) H 06/16/22 05:54 Urine Glucose (UA) 4+ (Normal) H 06/16/22 05:54 Urine Ketones 3+ (Negative) H 06/16/22 05:54 Urine Blood Neg (Negative) 06/16/22 05:54 Urine Nitrate Negative (Negative) 06/16/22 05:54 Urine Bilirubin Neg (Negative) 06/16/22 05:54 Urine Urobilinogen Norm mg/dL (Negative) 06/16/22 05:54 Ur Leukocyte Esterase Negative (Negative) 06/16/22 05:54 Urine RBC None /hpf (0-2) 06/16/22 05:54 Urine WBC None /hpf (0-5) 06/16/22 05:54 Ur Squamous Epith Cells None /hpf (0-5) 06/16/22 05:54 Amorphous Sediment Not Reportable 06/16/22 05:54 Urine Bacteria None /hpf (NONE) 06/16/22 05:54 Gastric Occult Blood Positive (Negative) H 06/16/22 06:28 Serum Ketones Positive (Negative) H 06/16/22 06:06 Discharge Plan Discharge Patient Disposition: Admitted As Inpatient Clinical Impression: Diabetic keto-acidosis, Noncompliance with diabetes treatment, Type 1 diabetes Condition: Stable Prescriptions: No Action (DME) Dexcom G6 Welfare Officer Misc See Rx Instructions .ROUTE .MEDSUPPLY Qty: 1 0RF Rx Instructions: takes blood sugar (DME) Dexcom G6 Sensor Device See Rx Instructions .ROUTE .MEDSUPPLY Qty: 3 3RF Rx Instructions: use to take blood sugars (DME) Dexcom G6 Transmitter Device See Rx Instructions .ROUTE .MEDSUPPLY Qty: 3 3RF Rx Instructions: used to take blood sugars (DME) strips See Rx Instructions .Route .MEDSUPPLY Qty: 1 3RF Rx Instructions: Check blood sugars 3 times daily, with meals, #200, 3 refills (DME) lancets Misc See Rx Instructions .Route Qty: 200 3RF Rx Instructions: check BS, TID with meals insulin aspart U-100 100 unit/mL (3 mL) insulin pen See Rx Instructions .ROUTE .COMPLEX Qty: 15 3RF Dose Instruction: INJECT UNDER SKIN THREE TIMES DAILY BEFORE MEALS, BASED ON SLIDING SCALE PROVIDED- BACKUP IF PUMP NOT WORKING Rx Instructions: INJECT UNDER SKIN THREE TIMES DAILY BEFORE MEALS, BASED ON SLIDING SCALE PROVIDED- BACKUP IF PUMP NOT WORKING Lantus Solostar U-100 Insulin 100 unit/mL (3 mL) insulin pen See Rx Instructions .ROUTE .COMPLEX Qty: 90 3RF Dose Instruction: INJECT 40 UNITS UNDER SKIN TWICE DAILY - FOR USE OF BACK UP Rx Instructions: INJECT 40 UNITS UNDER SKIN TWICE DAILY - FOR USE OF BACK UP (DME) blood sugar diagnostic Strip See Rx Instructions .Route Qty: 100 0RF Rx Instructions: As directed (DME) Blood Glucose Test Strip See Rx Instructions .Route Qty: 100 0RF Rx Instructions: As directed (DME) blood-glucose meter [Blood Glucose Monitoring] Kit See Rx Instructions .Route Qty: 1 0RF Rx Instructions: As directed (DME) strips See Rx Instructions .Route .MEDSUPPLY Qty: 200 3RF Rx Instructions: Check blood sugars 3 times daily, before meals (DME) lancets See Rx Instructions .Route .MEDSUPPLY Qty: 200 1RF Rx Instructions: Check blood sugars 3 times daily, before meals multivitamin Tablet 1 tab PO DAILY Referrals: Earlene Titus FNP-C [Primary Care Provider] - Coding Level of Care Code ED Refrigeration Mechanic Helper for Chg Fwd Exam Detailed
[2022-06-16 06:23] LABS: Ketone (Acetest) Serum Positive (Negative)
[2022-06-16] MEDS: ondansetron 2 mg/ML SDV 2 mL 4 MG IVP ×3 (06:25→18:13)
[2022-06-16 06:30] LABS: Lactic Sepsis W/Reflex 1.8 mmol/L (0.5-2.2)
[2022-06-16 06:31] LABS: Glucose Point of Care 414 mg/dL (70-110)
[2022-06-16 06:31] LABS: Glucose Point of Care 426 mg/dL (70-110)
[2022-06-16 06:31] LABS: Alanine Aminotransferase 18 U/L (0-41); Albumin Level 5.3 g/dL (3.5-5.2); Alkaline Phosphatase 72 U/L (40-130); Anion Gap 37.7 (5-19); Aspartate Amino Transferase 18 U/L (0-40); Blood Urea Nitrogen 14 mg/dL (6-20); Calcium 9.6 mg/dL (8.5-10.5); Chloride 94 mmol/L (98-107); Globulin 3.2 g/dL (1.3-4.6); Glomerular Filtration Rate 102.8 mL/min (90-130); Glucose 418 mg/dL (65-115); Magnesium 1.9 mg/dL (1.7-2.3); Osmolality Calculated 294 mOsm/kg (285-295); Potassium 4.7 mmol/L (3.5-5.1); Sodium 133 mmol/L (136-145); Total Bilirubin 0.4 mg/dL (0.15-1.2); Total Protein 8.5 g/dL (6.6-8.7)
[2022-06-16 06:37] LABS: Gastricult Occult Blood Positive (Negative)
[2022-06-16] MEDS: sodium bicarbonate 8.4% 1 mEq/mL 50mL Syr 100 MEQ IVP (06:38)
[2022-06-16 06:43] LABS: Glucose Urine UA 4+ (Normal); Protein Urine 1+ (Negative); Urine Appearance Clear (CLEAR); Urine Color Yellow (Yellow); pH Urine 5 (5-7)
[2022-06-16 06:44] LABS: Add Urine Microscopic? YES; Bilirubin Urine Neg (Negative); Blood Urine Neg (Negative); Ketones Urine 3+ (Negative); Leukocyte Esterase Urine Negative (Negative); Lipase 170 U/L (13-60); Nitrate Urine Negative (Negative); Urobilinogen Urine Norm (Negative)
[2022-06-16 06:46] LABS: Add Urine Culture? No
[2022-06-16 06:50] LABS: Carbon Dioxide 6 mmol/L (22-29)
[2022-06-16 07:13] LABS: Glucose Point of Care 337 mg/dL (70-110); Glucose Point of Care 360 mg/dL (70-110)
[2022-06-16] MEDS: pantoprazole 40 mg SDV 80 MG IVP (07:35)
[2022-06-16 08:26] LABS: Glucose Point of Care 290 mg/dL (70-110)
[2022-06-16 09:09] LABS: Glucose Point of Care 285 mg/dL (70-110)
[2022-06-16] MEDS: insulin regular-human 250 UNIT in sodium chloride 0.9% 250 ML 6.7 UNIT IV (09:18)
[2022-06-16] MEDS: dextrose 5%-ns 0.45% + KCl 40 1,000 ML 150 MEQ IV (09:24)
--- NOTE | 2022-06-16 09:25 | PM.HP ---
Providers/Chief Complaint Admitting Physician: Terry Hines MD Primary Care Provider: MARGE Castellano Chief Complaint: Possible DKA History of Present Illness Salvatore Ott is a 27 year old male who presents to the emergency department with complaints of vomiting and high sugar. He reports this started last night. He denies being ill in any fashion other than vomiting. He reports he has been taking his insulin, but his sugars been high. He reports no fever, cough, abdominal pain. He reports he is already started to feel somewhat better. He believes he might of thrown apart enough to have a little bit of coffee-ground material in his vomit. He reports he currently takes 30 units of Lantus twice a day, and uses short acting insulin depending on carbs approximately 15 units 3 times daily In the emergency department he was given some regular insulin, fluids, and Protonix. An insulin drip is being started as well as some D5 half-normal saline. Review of Systems General: Reports: 10 or more systems reviewed and unremarkable except in HPI and below Const: Denies: fever(s) or chills Eyes: Denies: change in vision ENMT: Denies: throat pain Card: Denies: chest pain Resp: Denies: dyspnea GI: Reports: nausea and vomiting; Denies: abdominal pain : Denies: flank pain Musc: Denies: neck pain Skin/Breast: Denies: rash Neuro: Denies: headache(s) Psych: Denies: anxiety or depression Endo: Denies: polyuria [place]/Lymph: Denies: easy bruising All/Imm: Denies: urticaria Medications/Allergies Home Medications Medication Instructions Recorded Confirmed Last Taken Type blood sugar diagnostic #100 ea 03/20/21 06/16/22 Unknown Rx blood sugar diagnostic (Blood #100 ea 03/20/21 06/16/22 Unknown Rx Glucose Test strips) blood-glucose meter (Blood Glucose #1 ea 03/20/21 06/16/22 Unknown Rx Monitoring kit) lancets #200 ea 05/17/21 06/16/22 Unknown Rx strips #200 ea 05/17/21 06/16/22 Unknown Rx lancets #200 ea 06/18/21 06/16/22 Unknown Rx strips #1 ea 06/18/21 06/16/22 Unknown Rx multivitamin 1 tab PO DAILY 0306/16/22 05/29/22 History insulin aspart U-100 100 unit/mL See Rx Instructions .Route 12/10/21 06/16/22 05/29/22 04:00 Rx (3 mL) subcutaneous pen .COMPLEX #15 mL insulin glargine 100 unit/mL (3 See Rx Instructions .Route 12/10/21 06/16/22 05/29/22 Rx mL) subcutaneous pen (Lantus .COMPLEX #90 mL Solostar U-100 Insulin) blood-glucose meter,continuous #1 ea 04/29/22 06/16/22 Unknown Rx (Dexcom G6 Solutions Market Consultant misc) blood-glucose sensor (Dexcom G6 #3 ea 04/29/22 06/16/22 Unknown Rx Sensor device) blood-glucose transmitter (Dexcom #3 ea 04/29/22 06/16/22 Unknown Rx G6 Transmitter device) Allergies Allergy/AdvReac Type Severity Reaction Status Date / Time promethazine [From Phenergan] Allergy Unknown Verified 06/16/22 09:12 PFSH Acute PFSH: Medical History DKA (diabetic ketoacidoses) DKA (diabetic ketoacidosis) GERD (gastroesophageal reflux disease) High anion gap metabolic acidosis History of pancreatitis Hyperglycemia Hypoglycemia due to insulin Long-term insulin use Marijuana use Methamphetamine abuse Nausea & vomiting Noncompliance with diabetes treatment Pancreatitis Type 1 diabetes With recurrent admissions for DKA, severe Uncontrolled type 1 diabetes mellitus Surgical History No pertinent past surgical history Family History Other Diabetes Social History Smoking and tobacco status: current some day smoker Alcohol intake: never Lives independently: Yes Household members: family Marital status: Single Current occupational status: disabled Vitals/I&O/Wt Last Vital Signs Temp 98.9 F 06/16/22 05:47 Pulse 98 06/16/22 08:00 Resp 21 H 06/16/22 07:39 BP 138/93 06/16/22 08:00 Pulse Ox 99 06/16/22 08:00 O2 Del Method 06/16/22 08:00 06/15/22 06/16/22 06/16/22 22:59 06:59 14:59 Intake Total 16.65 / 16.65 1000 / 1000 Balance 16.65 / 16.65 1000 / 1000 Weight last 48 hrs Weight 65.771 kg Physical Exam Narrative: General exam alert, oriented, and conversant HEENT: Atraumatic and normocephalic. Pupils equally round. Oropharynx clear. Neck is supple no lymphadenopathy or thyromegaly Cardiovascular borderline tachycardic, regular, no murmur Lungs clear no wheezing or crackles Abdomen is soft nontender positive bowel sounds. No obvious organomegaly exams deferred Extremities no cyanosis clubbing or edema, cap refill brisk Skin no rash Neuro no obvious focal deficits. Data : 06/16/22 05:54 06/16/22 05:54 Other Labs: ABG on arrival demonstrated a pH of 7.08, PCO2 of 16, PO2 of 124 LFTs are normal Lipase slight elevation at 170 Urinalysis 4+ glucose, 3+ ketones, 1+ protein Gastric all positive Serum ketones positive A&P Assessment and plan (1) DKA (diabetic ketoacidosis): His blood sugar is already significantly down from arrival, in the mid 200s. Initiate insulin drip as ordered in the ER Continue saline hydration, and initiate D5 half-normal saline with 40 mill equivalents of potassium per liter when blood sugar is less than 250 Close electrolyte management with serial BMP Plan Vomiting, with coffee-ground emesis. Presumed gastritis and continue Protonix IV. Low risk for DVT, no prophylaxis needed Attestations Medical Necessity Statement*: Will require less than 2 midnight stay for evaluation and treatment of DKA Coding Level of Care Code Acute Forge Press Operator for [facility] Diagnoses DKA (diabetic ketoacidosis) E11.10
[2022-06-16 10:16] LABS: Glucose Point of Care 285 mg/dL (70-110)
[2022-06-16 11:33] LABS: Blood Urea Nitrogen 9 mg/dL (6-20); Calcium 8.7 mg/dL (8.5-10.5); Chloride 101 mmol/L (98-107); Glomerular Filtration Rate 102.8 mL/min (90-130); Glucose 283 mg/dL (65-115); Magnesium 1.8 mg/dL (1.7-2.3); Osmolality Calculated 287 mOsm/kg (285-295); Phosphorus 2.8 mg/dL (2.5-4.5); Sodium 134 mmol/L (136-145)
[2022-06-16 11:47] LABS: Anion Gap 31.6 (5-19); Carbon Dioxide 7 mmol/L (22-29)
[2022-06-16 11:48] LABS: Potassium 5.6 mmol/L (3.5-5.1)
[2022-06-16] MEDS: sodium chloride 0.9% 1,000 ML 999 ML IV (12:07)
[2022-06-16] MEDS: metoclopramide 5 mg/mL SDV 2 mL 10 MG IVP (12:16)
[2022-06-16 12:20] LABS: Glucose Point of Care 236 mg/dL (70-110)
--- NOTE | 2022-06-16 12:24 | PC.CHAP ---
Pastoral Care Encounter/Spiritual Assessment Type of Contact [] Declined trackless trolley driver visit [] Patient/Family/Request visit [] Outpatient visit [] Follow-up visit [] Physician referral [] Code/Alert [] Routine visit [] Staff referral [] Actively dying [] Patient sleeping [] Family support [] [] Out of room [] Palliative care [] [] Receiving care in room [] Pre-surgical visit [] Trauma [] Long length of stay [] ICU visit [] Other: Relational/Emotional Strength [] Patient feels connected with others/family/visitors/staff [] Distress [] Loneliness/isolation [] Abandonment Spirituality of Patient [] Person of Emily [] Attends [facility] of their Emily [] Believes in Prayer [] Reads Bible or Yazdanism materials [] There are Spiritual issues to be addressed Glucose And Syrup Weigher Interventions [] Prayer [] Active listening [] Non-anxious presence [] Spiritual/emotional support [] Crisis/trauma care [] Spiritual counseling [] Bereavement support [] Provided bereavement packet [] Provided Bible/devotional materials [] Provided toy/stuffed animal, coloring book to patient or family member [] Provided Communion [] Anointing/[place] [] Salvation [] Completed spiritual assessment [] Other: Impact on Illness or Injury [] Angry [] Fearful [] Anxious [] Often cries [] Exhaustion [] Unable to work [] Unable to attend yazdanism [] Unable to walk/stand [] Unable to read [] Unable to drive [] Unable to eat/drink [] Unable to sleep [] Unable to be with family [] Patient intubated [] Other: Summary Time spent with patient
[2022-06-16 12:32] LABS: Glucose Point of Care 189 mg/dL (70-110)
[2022-06-16] MEDS: dextrose 5%-sod chloride 0.45% 1,000 ML 150 ML IV ×2 (12:36→18:02)
[2022-06-16 13:18] LABS: Glucose Point of Care 160 mg/dL (70-110)
[2022-06-16 14:11] LABS: Glucose Point of Care 148 mg/dL (70-110)
[2022-06-16 15:05] LABS: Glucose Point of Care 146 mg/dL (70-110)
[2022-06-16 16:12] LABS: Glucose Point of Care 138 mg/dL (70-110)
[2022-06-16 17:18] LABS: Glucose Point of Care 118 mg/dL (70-110)
[2022-06-16] MEDS: pantoprazole 40 mg SDV IVP (18:02)
[2022-06-16 18:24] LABS: Glucose Point of Care 110 mg/dL (70-110)
[2022-06-16 19:26] LABS: Glucose Point of Care 105 mg/dL (70-110)
[2022-06-16 19:29] LABS: Blood Urea Nitrogen 7 mg/dL (6-20); Calcium 8.3 mg/dL (8.5-10.5); Carbon Dioxide 13 mmol/L (22-29); Chloride 101 mmol/L (98-107); Glomerular Filtration Rate 164.2 mL/min (90-130); Glucose 98 mg/dL (65-115); Osmolality Calculated 266 mOsm/kg (285-295); Sodium 129 mmol/L (136-145)
[2022-06-16 19:33] LABS: Anion Gap 19.2 (5-19); Potassium 4.2 mmol/L (3.5-5.1)
[2022-06-16] MEDS: dextrose 5%-ns + KCl 20 20 MEQ/1,000 ML BAG 150 MEQ IV (20:20)
[2022-06-16 20:24] LABS: Glucose Point of Care 127 mg/dL (70-110)
[2022-06-16 22:06] LABS: Glucose Point of Care 124 mg/dL (70-110)
[2022-06-16 22:06] LABS: Glucose Point of Care 111 mg/dL (70-110)
[2022-06-16 23:01] LABS: Glucose Point of Care 116 mg/dL (70-110)
[2022-06-16 23:28] LABS: Anion Gap 15.8 (5-19); Blood Urea Nitrogen 5 mg/dL (6-20); Calcium 8.5 mg/dL (8.5-10.5); Carbon Dioxide 16 mmol/L (22-29); Chloride 106 mmol/L (98-107); Glomerular Filtration Rate 137.4 mL/min (90-130); Glucose 115 mg/dL (65-115); Magnesium 1.7 mg/dL (1.7-2.3); Osmolality Calculated 276 mOsm/kg (285-295); Phosphorus 2.4 mg/dL (2.5-4.5); Potassium 3.8 mmol/L (3.5-5.1); Sodium 134 mmol/L (136-145)
[2022-06-17] VITALS (10 sets, daily range): BP systolic 103–126; BP diastolic 61–77; PULSE 79–108; RESP 18–33; TEMP 36.7–36.8; O2SAT 96–99
[2022-06-17 00:13] LABS: Glucose Point of Care 104 mg/dL (70-110)
[2022-06-17] MEDS: insulin glargine 100 units/1 mL 20 UNIT SUBCUT ×2 (01:00→09:04)
[2022-06-17 01:21] LABS: Glucose Point of Care 108 mg/dL (70-110)
[2022-06-17] MEDS: lactated ringers 1,000 ML 75 ML IV (01:52)
[2022-06-17 02:04] LABS: Glucose Point of Care 109 mg/dL (70-110)
[2022-06-17 03:36] LABS: Basophils % 0.5 %; Eosinophils % 0.4 %; Hematocrit 44.6 % (42.0-52.0); Hemoglobin 14.4 g/dL (11.7-16.6); Lymphocytes # 0.9 10^3/uL (0.8-4.8); Lymphocytes % 11.7 %; Mean Corpuscular HGB Conc 32.3 g/dL (30.0-36.0); Mean Corpuscular Hemoglobin 31.6 pg (28.0-34.0); Mean Corpuscular Volume 97.8 fl (80-94); Mean Platelet Volume 9.6 fL (7.4-10.4); Monocytes # 0.6 10^3/uL (0.2-0.9); Monocytes % 7.8 %; Neutrophils # 6.08 10^3/uL (1.8-7.7); Neutrophils % 79.2 %; Nucleated Red Blood Cells % 0 %; Platelet Count 185 10^3/cmm (130-400); Red Blood Count 4.56 10^6/uL (4.1-5.3); Red Cell Distribution Width 13.3 % (12.1-15.1); White Blood Count 7.7 10^3/uL (4.0-10.0)
[2022-06-17 03:48] LABS: INR 1.01 (0.8-1.2)
[2022-06-17 04:55] LABS: Anion Gap 17.8 (5-19); Blood Urea Nitrogen 5 mg/dL (6-20); Calcium 8.3 mg/dL (8.5-10.5); Carbon Dioxide 15 mmol/L (22-29); Chloride 105 mmol/L (98-107); Glomerular Filtration Rate 164.2 mL/min (90-130); Glucose 99 mg/dL (65-115); Osmolality Calculated 275 mOsm/kg (285-295); Potassium 3.8 mmol/L (3.5-5.1); Sodium 134 mmol/L (136-145)
[2022-06-17 05:40] LABS: Glucose Point of Care 130 mg/dL (70-110)
[2022-06-17] MEDS: pantoprazole 40 mg SDV IVP (06:00)
[2022-06-17 07:12] LABS: Glucose Point of Care 156 mg/dL (70-110)
[2022-06-17] MEDS: insulin lispro 100 unit/1 mL SUBCUT (07:33)
--- NOTE | 2022-06-17 09:42 | PM.PN ---
Subjective Subjective: Patient seen earlier today. No nausea. Wondering when he could go home. Denied any abdominal pain. Medications: Reviewed: Yes Vitals/I&O/Wt Last Vital Signs Temp 98.1 F 06/17/22 04:00 Pulse 92 06/17/22 09:00 Resp 20 H 06/17/22 09:00 BP 126/76 06/17/22 09:00 Pulse Ox 99 06/17/22 09:00 O2 Del Method 06/17/22 04:00 06/16/22 06/17/22 06/17/22 22:59 06:59 14:59 Intake Total 1974.720 / 3011.605 2020.9 / 5032.505 3667.5 / 3667.5 Output Total 950 / 1750 Balance 1974.720 / 2211.605 1070.9 / 3282.505 3667.5 / 3667.5 Weight last 48 hrs Weight 65 kg Weight 65.771 kg Weight 65.771 kg Physical Exam Narrative: General exam no complaints Neck is supple no lymphadenopathy or thyromegaly Cardiovascular borderline tachycardic, regular, no murmur Lungs clear no wheezing or crackles Abdomen is soft nontender positive bowel sounds. No obvious organomegaly Extremities no cyanosis clubbing or edema, cap refill brisk Skin no rash Data : 06/17/22 03:05 06/17/22 03:05 A&P Assessment and plan (1) DKA (diabetic ketoacidosis): Insulin drip discontinued last night and he received long-acting insulin. Gap is increased from 16-18 during the interim. I discussed with the patient that we are giving him more Lantus, will check his laboratory at 11, and if gap is improving again discharge him home. Nursing called me shortly after the visit and said the patient was leaving AGAINST MEDICAL ADVICE, despite my prior extensive conversation with him regarding repeating his lab in an hour to make sure acidosis was not recurring. Plan Vomiting, with coffee-ground emesis. Presumed gastritis and had been placed on Protonix IV. Low risk for DVT, no prophylaxis needed Attestations Medical Necessity Statement*: Possible discharge today, however patient went AGAINST MEDICAL ADVICE. Coding Level of Care Code Acute Compressed Air Pile Driver Operator for [facility] Diagnoses DKA (diabetic ketoacidosis) E11.10
--- NOTE | 2022-06-17 09:45 | W.PM.EVENTAC ---
Event Note Event Note: Patient left AGAINST MEDICAL ADVICE despite counseling on reasons for staying by me earlier in the day.
--- NOTE | 2022-06-17 09:47 | PC.NURSE ---
Patient wanting to leave AMA, notified Dr. Hines, patient educated on risks of leaving AMA including . Patient aware of risks. All IVs removed. All patient belongings sent with patient. Patient ambulated to ER exit with staff at 0940. AMA paper in chart
== END 2022-06-17 09:40 | disposition left against medical advice (07) ==
LOC: ER 08:20 → ICU 09:27
PROVIDERS: Emergency Medicine; Admitting Provider Internal Medicine; Emergency Provider Family Medicine; PCP Nurse Practitioner Family; Visit Provider Internal Medicine
DX: E11.10 Type 2 diabetes mellitus with ketoacidosis without coma (principal); Z53.29 Procedure and treatment not carried out because of patient's decision for other reasons; Z79.4 Long term (current) use of insulin; F17.210 Nicotine dependence, cigarettes, uncomplicated
CPT/HCPCS: 36415; 36416; 36600; 80048; 80053; 81001; 82009; 82271; 82805; 82962; 83605; 83690; 83735; 84100; 85025; 85610; 96361; 96365; 96366; 96372; 96375; 96376; 99285; C9113; G0378; J1815; J2405; J2765; J7030; J7050; J7799

== ENCOUNTER → 2022-08-11 15:21 | Outpatient (BNVA) | payer MEDICARE, MEDICAID, SELFPAY | PROVIDERS: PCP Nurse Practitioner Family; Visit Provider Nurse Practitioner Family | DX: J10.1 Influenza due to other identified influenza virus with other respiratory manifestations (principal); R50.9 Fever, unspecified | CPT/HCPCS: 87400; 87426 ==

== ENCOUNTER 2022-10-01 07:36 | Emergency (ER) | payer MEDICARE, MEDICAID, SELFPAY ==
[2022-10-01 07:36] VITALS: BP 145/89; PULSE 78; RESP 18; TEMP 36.8; O2SAT 98; BMI 25.0
--- NOTE | 2022-10-01 07:41 | XR_ITS ---
WS: [id number] Exam: XR chest 1V portable [id number] Date/Time of Exam: 10/01/2022 7:48 AM Reason For Exam: dyspnea/cough Comparison 11/21/2021. Findings: The lungs are clear and fully expanded. Costophrenic angles are sharp. No infiltrates. Bronchovascula r relief appears normal. Cardiac silhouette is unremarkable. Bony elements are intact. XR/XR chest 1V portable [id number] IMPRESSION: Unremarkable chest radiograph.
[2022-10-01] MEDS: ondansetron 2 mg/ML SDV 2 mL 4 MG IVP (07:48)
[2022-10-01] MEDS: sodium chloride 0.9% 1,000 ML 999 ML IV ×2 (07:48→09:49)
[2022-10-01 07:51] VITALS: RESP 14
[2022-10-01 07:52] LABS: Glucose Point of Care 167 mg/dL (70-110)
--- NOTE | 2022-10-01 07:53 | ECG_ITS ---
[facility] Test Date: 2022-10-01 Pat Name: Salvatore Ott Department: Room: Gender: Male Lotus Notes Developer: : 1995 Requested By: Epifanio Pozo Order Number: [id number] Kim MD: Macey Rogers M.D. Measurements Intervals [place] Rate: 82 P: 52 WA: 137 QRS: 69 QRSD: 83 T: 48 QT: 359 QTc: 421 Interpretive Statements SINUS RHYTHM POSSIBLE LEFT ATRIAL ENLARGEMENT [-0.1mV P-WAVE IN V1/V2] Compared to ECG 11/22/2021 17:55:36 No significant changes Electronically Signed On 10-01-2022 22:03:49 BULK TANK DRIVER by Macey Rogers M.D. [email or web address]
--- NOTE | 2022-10-01 08:00 | ED_ITS ---
HPI - Nausea/Vomiting/Diarrhea General: Chief complaint: Nausea/Vomiting/Diarrhea Stated complaint: ABDOMINAL PAIN/ N/V Time Seen by Provider: 10/01/22 07:41 Source: patient Mode of arrival: EMS History of Present Illness: 27-year-old male presents emergency room complaining of abdominal pain nausea and vomiting began last night. Patient has type 1 diabetes mellitus is very poor control is at multiple episodes of DKA requiring admission. He has had polydipsia and polyuria MD elicited complaint: nausea and vomiting Onset (ago): hour(s) Description of vomiting: watery Description of diarrhea: watery and semi-solid Associated nausea: Yes Quality: cramping Exacerbating factors: none Relieving factors: none Associated symtoms: Reports anorexia, malaise, nausea and weakness; Denies altered mental status, anxiety, bloating, change in vision, chest pain, cough, diaphoresis, decreased urine output, dizziness, dysuria, epistaxis, fatigue, fecal incontinence, fevers/chills, headache(s), myalgias, numbness, palpitations, rash, short of breath, syncope, tenesmus or tinnitus Review of Systems Const: Reports: malaise; Denies: fever(s), chills, fatigue or diaphoresis Eyes: Denies: change in vision ENMT: Denies: tinnitus or epistaxis Card: Denies: chest pain, palpitations or syncope Resp: Denies: dyspnea, productive cough or non-productive cough GI: Reports: abdominal pain, nausea, vomiting and diarrhea; Denies: bloating or fecal incontinence : Denies: dysuria Skin/Breast: Denies: rash or pruritus Neuro: Denies: headache(s) or dizziness Psych: Denies: anxiety PFSH ED PFSH: Medical History Abdominal pain Diabetic keto-acidosis DKA (diabetic ketoacidoses) DKA (diabetic ketoacidosis) GERD (gastroesophageal reflux disease) High anion gap metabolic acidosis History of pancreatitis Hyperglycemia Hypoglycemia due to insulin Long-term insulin use Marijuana use Methamphetamine abuse Nausea & vomiting Noncompliance with diabetes treatment Pancreatitis Type 1 diabetes With recurrent admissions for DKA, severe Uncontrolled type 1 diabetes mellitus Surgical History No pertinent past surgical history Family History Other Diabetes Social History Smoking and tobacco status: current every day smoker Alcohol intake: never Lives independently: Yes Household members: family Marital status: Single Current occupational status: disabled Physical Exam Const: EXAM LIMITATIONS: no altered mental status GENERAL APPEARANCE: cooperative and comfortable ORIENTATION/CONSCIOUSNESS: Yes awake, Yes oriented to person, Yes oriented to place and Yes oriented to time HENMT: COMMON NORMALS: normocephalic and atraumatic HEAD & SCALP: normocephalic and atraumatic Resp: COMMON NORMALS: normal respiratory effort, No retractions, No use of accessory muscles and clear to auscultation bilaterally AUSCULTATION: clear to auscultation bilaterally Cardio: COMMON NORMALS: regular rate, regular rhythm and No murmurs present (Cardio) RATE: regular rate RHYTHM: regular rhythm GI: COMMON NORMALS: Soft to palpation and No hepatosplenomegaly present AUSCULTATION: Yes normoactive bowel sounds PALPATION: Yes Soft to palpation, No Tenderness to palpation present (GI), No Guarding due to palpation present (GI) and Yes No hepatosplenomegaly present Extremity: COMMON NORMALS: normal to inspection, capillary refill normal, no clubbing, cyanosis or edema, no calf tenderness and no pedal edema Neuro: SENSORIUM/ORIENTATION: Yes oriented to person, Yes oriented to place and Yes oriented to time Skin: COMMON NORMALS: no rashes or lesions noted GENERAL SKIN EXAM: no rashes or lesions noted Course 2 Vital Signs: Vital signs: Vital Signs Temperature 98.3 F 10/01/22 07:36 Pulse Rate 84 10/01/22 09:12 Respiratory Rate 14 10/01/22 09:12 Blood Pressure 98/57 10/01/22 09:12 Pulse Oximetry 99 10/01/22 09:12 Oxygen Delivery Me thod 10/01/22 09:12 MDM - Nausea/Vomiting/Diarrhea Medical Decision Making Patient in acute DKA. Offered admission patient refused that she is to leave AMA is feeling better after some fluids and antiemetics encouraged him to stay in the past when he has left AMA this early in the process he it is resulted in his returning with worsening DKA reminded him of this and discussed that with him he still wishes to leave. Clear liquids for the next 24 to 48 hours monitor blood sugars closely. Medical Records I reviewed the patient's medical records. Lab Data I reviewed the patient's lab results. 10/01/22 08:09 10/01/22 08:09 Radiology Impressions Chest X-Ray 10/01/22 07:41 IMPRESSION: Unremarkable chest radiograph. Laboratory Results WBC 5.6 10^3/uL (4.0-10.0) 10/01/22 08:09 RBC 5.15 10^6/uL (4.1-5.3) 10/01/22 08:09 Hgb 15.8 g/dL (11.7-16.6) 10/01/22 08:09 Hct 47.5 % (42.0-52.0) 10/01/22 08:09 MCV 92.2 fl (80-94) 10/01/22 08:09 MCH 30.7 pg (28.0-34.0) 10/01/22 08:09 MCHC 33.3 g/dL (30.0-36.0) 10/01/22 08:09 RDW 11.8 % (12.1-15.1) L 10/01/22 08:09 Plt Count 232 10^3/cmm (130-400) 10/01/22 08:09 MPV 9.7 fL (7.4-10.4) 10/01/22 08:09 Neut % (Auto) 88.9 % 10/01/22 08:09 Lymph % (Auto) 8.4 % 10/01/22 08:09 [place] % (Auto) 1.6 % 10/01/22 08:09 Eos % (Auto) 0.0 % 10/01/22 08:09 Baso % (Auto) 0.4 % 10/01/22 08:09 Neut # (Auto) 4.98 10^3/uL (1.8-7.7) 10/01/22 08:09 Lymph # (Auto) 0.5 10^3/uL (0.8-4.8) L 10/01/22 08:09 [place] # (Auto) 0.1 10^3/uL (0.2-0.9) L 10/01/22 08:09 Eos # (Auto) 0.0 10^3/uL (0.0-0.8) 10/01/22 08:09 Baso # (Auto) 0.0 10^3/uL (0.0-0.1) 10/01/22 08:09 Nucleated RBC % (auto) 0 % 10/01/22 08:09 Nucleated RBCs # 0.0 /100WBC 10/01/22 08:09 Specimen Type Arterial 10/01/22 07:53 Sample Site Brachial, left 10/01/22 07:53 ABG pH 7.18 (7.35-7.45) L* 10/01/22 07:53 ABG pCO2 29.4 mmHg (35-45) L 10/01/22 07:53 ABG pO2 76.5 mmHg (80.0-100.0) L 10/01/22 07:53 ABG HCO3 11.0 mmol/L (22-26) L 10/01/22 07:53 ABG O2 Saturation 92.5 10/01/22 07:53 ABG Base Excess -15.8 mmol/L (-2.0-2.0) L 10/01/22 07:53 Hasmukh Test Pos 10/01/22 07:53 A-a O2 Gradient 4.7 mmHg (5-10) L 10/01/22 07:53 Hematocrit 52.4 % (42-52) H 10/01/22 07:53 Hgb O2 Saturation 90.2 % (95-100) L 10/01/22 07:53 Carboxyhemoglobin 1.5 %THgb (0.4-20.1) 10/01/22 07:53 Methemoglobin 1.1 % (0.4-1.5) 10/01/22 07:53 Total Hemoglobin 17.1 g/dL (14-18) 10/01/22 07:53 Sodium 140.0 mmol/L (131-143) 10/01/22 07:53 Potassium 4.2 mmol/L (3.5-5.0) 10/01/22 07:53 Glucose 171.0 mg/dL (70-115) H 10/01/22 07:53 Ionized Calcium 1.3 mmol/L (1.1-1.4) 10/01/22 07:53 O2 Delivery Device Room air 10/01/22 07:53 FiO2 21.0 % 10/01/22 07:53 Soft Water Mechanic ID Cak 10/01/22 07:53 Sodium 137 mmol/L (136-145) 10/01/22 08:09 Potassium 4.3 mmol/L (3.5-5.1) 10/01/22 08:09 Chloride 103 mmol/L (98-107) 10/01/22 08:09 Carbon Dioxide 10 mmol/L (22-29) L 10/01/22 08:09 Anion Gap 28.3 (5-19) H 10/01/22 08:09 BUN 16 mg/dL (6-20) 10/01/22 08:09 Creatinine 0.6 mg/dL (0.7-1.2) L 10/01/22 08:09 GFR Calculation 164.2 mL/min (90-130) H 10/01/22 08:09 Glucose 164 mg/dL (65-115) H 10/01/22 08:09 POC Glucose 167 mg/dL (70-110) H 10/01/22 07:43 Calculated Osmolality 289 mOsm/kg (285-295) 10/01/22 08:09 Calcium 8.6 mg/dL (8.5-10.5) 10/01/22 08:09 Magnesium 1.7 mg/dL (1.7-2.3) 10/01/22 08:09 Total Bilirubin 0.4 mg/dL (0.15-1.2) 10/01/22 08:09 AST 18 U/L (0-40) 10/01/22 08:09 ALT 19 U/L (0-41) 10/01/22 08:09 Alkaline Phosphatase 71 U/L (40-130) 10/01/22 08:09 Total Protein 7.7 g/dL (6.6-8.7) 10/01/22 08:09 Albumin 4.7 g/dL (3.5-5.2) 10/01/22 08:09 Globulin 3.0 g/dL (1.3-4.6) 10/01/22 08:09 Urine Color Yellow (Yellow) 10/01/22 09:11 Urine Appearance Clear (CLEAR) 10/01/22 09:11 Urine pH 5 (5-7) 10/01/22 09:11 Ur Specific [place] 1.030 (1.005-1.030) 10/01/22 09:11 Urine Protein 3+ (Negative) H 10/01/22 09:11 Urine Glucose (UA) 4+ (Normal) H 10/01/22 09:11 Urine Ketones 3+ (Negative) H 10/01/22 09:11 Urine Blood Trace (Negative) H 10/01/22 09:11 Urine Nitrate Negative (Negative) 10/01/22 09:11 Urine Bilirubin Neg (Negative) 10/01/22 09:11 Urine Urobilinogen Neg mg/dL (Negative) 10/01/22 09:11 Ur Leukocyte Esterase Negative (Negative) 10/01/22 09:11 Urine RBC None /hpf (0-2) 10/01/22 09:11 Urine WBC None /hpf (0-5) 10/01/22 09:11 Ur Squamous Epith Cells None /hpf (0-5) 10/01/22 09:11 Amorphous Sediment Not Reportable 10/01/22 09:11 Urine Bacteria None /hpf (NONE) 10/01/22 09:11 Serum Ketones Positive (Negative) H 10/01/22 08:09 Discharge Plan Discharge Patient Disposition: Left Against Medical Advice Clinical Impression: DKA (diabetic ketoacidosis) Condition: Stable Prescriptions: No Action (DME) Dexcom G6 Dough Mixer Misc See Rx Instructions .ROUTE .MEDSUPPLY Qty: 1 0RF Rx Instructions: takes blood sugar (DME) Dexcom G6 Sensor Device See Rx Instructions .ROUTE .MEDSUPPLY Qty: 3 3RF Rx Instructions: use to take blood sugars (DME) Dexcom G6 Transmitter Device See Rx Instructions .ROUTE .MEDSUPPLY Qty: 3 3RF Rx Instructions: used to take blood sugars oseltamivir [Tamiflu] 75 mg capsule 75 mg PO BID 5 Days Qty: 10 0RF ondansetron HCl 4 mg tablet 4 mg PO QID PRN (Reason: nausea and vomiting) Qty: 20 0RF (DME) strips See Rx Instructions .Route .MEDSUPPLY Qty: 1 3RF Rx Instructions: Check blood sugars 3 times daily, with meals, #200, 3 refills (DME) lancets Misc See Rx Instructions .Route Qty: 200 3RF Rx Instructions: check BS, TID with meals Lantus Solostar U-100 Insulin 100 unit/mL (3 mL) insulin pen See Rx Instructions .ROUTE .COMPLEX Qty: 90 3RF Dose Instruction: INJECT 40 UNITS UNDER SKIN TWICE DAILY - FOR USE OF BACK UP Rx Instructions: INJECT 30 UNITS UNDER SKIN TWICE DAILY - FOR USE OF BACK UP insulin aspart U-100 [Novolog FlexPen U-100 Insulin] 100 unit/mL (3 mL) insulin pen See Rx Instructions .ROUTE .COMPLEX Qty: 15 3RF Dose Instruction: INJECT UNDER SKIN THREE TIMES DAILY BEFORE MEALS, BASED ON SLIDING SCALE PROVIDED- BACKUP IF PUMP NOT WORKING Rx Instructions: INJECT UNDER SKIN THREE TIMES DAILY BEFORE MEALS, BASED ON SLIDING SCALE PROVIDED- BACKUP IF PUMP NOT WORKING (DME) blood sugar diagnostic Strip See Rx Instructions .Route Qty: 100 0RF Rx Instructions: As directed (DME) Blood Glucose Test Strip See Rx Instructions .Route Qty: 100 0RF Rx Instructions: As directed (DME) blood-glucose meter [Blood Glucose Monitoring] Kit See Rx Instructions .Route Qty: 1 0RF Rx Instructions: As directed (DME) strips See Rx Instructions .Route .MEDSUPPLY Qty: 200 3RF Rx Instructions: Check blood sugars 3 times daily, before meals (DME) lancets See Rx Instructions .Route .MEDSUPPLY Qty: 200 1RF Rx Instructions: Check blood sugars 3 times daily, before meals multivitamin Tablet 1 tab PO DAILY Referrals: Earlene Titus FNP-C [Primary Care Provider] - Coding Level of Care Code ED Substance Abuse Clinician for [place]x Fwd Exam Detailed
[2022-10-01 08:04] LABS: ABG PCO2 29.4 mmHg (35-45); Alveolar-Arterial Oxygen Gradi 4.7 mmHg (5-10); Arterial Blood Gas Hematocrit 52.4 % (42-52); Base Excess ABG -15.8 mmol/L (-2.0-2.0); Blood Gas Allen Test Pos; Blood Gas Operator Identificat CAK; Blood Gas Sample Site Brachial, left; Blood Gas Sample Type Arterial; Carboxyhemoglobin 1.5 %THgb (0.4-20.1); HGB O2 Sat 90.2 % (95-100); Ionized Calcium Level - ABG 1.3 mmol/L (1.1-1.4); Methemoglobin 1.1 % (0.4-1.5); Oxygen Device ROOM AIR; Oxygen Saturation ABG 92.5; PO2 ABG 76.5 mmHg (80.0-100.0); Potassium Level - ABG 4.2 mmol/L (3.5-5.0); Total Hemoglobin 17.1 g/dL (14-18)
[2022-10-01 08:05] LABS: ABG PH Result 7.18 (7.35-7.45)
[2022-10-01 08:28] LABS: Basophils % 0.4 %; Hematocrit 47.5 % (42.0-52.0); Hemoglobin 15.8 g/dL (11.7-16.6); Lymphocytes # 0.5 10^3/uL (0.8-4.8); Lymphocytes % 8.4 %; Mean Corpuscular HGB Conc 33.3 g/dL (30.0-36.0); Mean Corpuscular Hemoglobin 30.7 pg (28.0-34.0); Mean Corpuscular Volume 92.2 fl (80-94); Mean Platelet Volume 9.7 fL (7.4-10.4); Monocytes # 0.1 10^3/uL (0.2-0.9); Monocytes % 1.6 %; Neutrophils # 4.98 10^3/uL (1.8-7.7); Neutrophils % 88.9 %; Nucleated Red Blood Cells % 0 %; Platelet Count 232 10^3/cmm (130-400); Red Blood Count 5.15 10^6/uL (4.1-5.3); Red Cell Distribution Width 11.8 % (12.1-15.1); White Blood Count 5.6 10^3/uL (4.0-10.0)
[2022-10-01 08:32] LABS: Ketone (Acetest) Serum Positive (Negative)
[2022-10-01 08:42] LABS: Alanine Aminotransferase 19 U/L (0-41); Albumin Level 4.7 g/dL (3.5-5.2); Alkaline Phosphatase 71 U/L (40-130); Anion Gap 28.3 (5-19); Aspartate Amino Transferase 18 U/L (0-40); Blood Urea Nitrogen 16 mg/dL (6-20); Calcium 8.6 mg/dL (8.5-10.5); Carbon Dioxide 10 mmol/L (22-29); Chloride 103 mmol/L (98-107); Glomerular Filtration Rate 164.2 mL/min (90-130); Glucose 164 mg/dL (65-115); Magnesium 1.7 mg/dL (1.7-2.3); Osmolality Calculated 289 mOsm/kg (285-295); Potassium 4.3 mmol/L (3.5-5.1); Sodium 137 mmol/L (136-145); Total Bilirubin 0.4 mg/dL (0.15-1.2); Total Protein 7.7 g/dL (6.6-8.7)
[2022-10-01 09:12] VITALS: BP 98/57; PULSE 84; RESP 14; O2SAT 99
[2022-10-01 09:28] LABS: Add Urine Microscopic? YES; Bilirubin Urine Neg (Negative); Blood Urine Trace (Negative); Glucose Urine UA 4+ (Normal); Ketones Urine 3+ (Negative); Leukocyte Esterase Urine Negative (Negative); Nitrate Urine Negative (Negative); Protein Urine 3+ (Negative); Urine Appearance Clear (CLEAR); Urine Color Yellow (Yellow); Urobilinogen Urine Neg (Negative); pH Urine 5 (5-7)
[2022-10-01 09:34] LABS: Add Urine Culture? No
[2022-10-01] MEDS: insulin regular-human 100 units/1 mL 5 UNIT IVP (09:50)
== END 2022-10-01 10:16 | disposition left against medical advice (07) ==
PROVIDERS: Emergency Provider Family Medicine; PCP Nurse Practitioner Family
DX: E10.10 Type 1 diabetes mellitus with ketoacidosis without coma (principal); Z79.4 Long term (current) use of insulin; F17.210 Nicotine dependence, cigarettes, uncomplicated
CPT/HCPCS: 36415; 36416; 36600; 71045; 80051; 80053; 81001; 82009; 82330; 82805; 82962; 83735; 85025; 87040; 93005; 96361; 96374; 96375; 99285; J1815; J2405; J7030

== ENCOUNTER 2022-10-01 18:17 | Observation (INO) | payer MEDICARE, MEDICAID, SELFPAY ==
[2022-10-01] VITALS (11 sets, daily range): BP systolic 115–121; BP diastolic 71–86; PULSE 76–117; RESP 10–22; TEMP 36.9–37.3; O2SAT 96–99
--- NOTE | 2022-10-01 18:24 | XRR_ITS ---
PROCEDURE INFORMATION: Exam: XR Chest Exam date and time: 10/01/2022 6:32 PM Age: 27 years old Clinical indication: Pain; On breathing; Additional info: Cough, abd pain TECHNIQUE: Imaging protocol: Radiologic exam of the chest. Views: 1 view. COMPARISON: CR XR chest 1V portable [id number] 10/01/2022 8:14 AM FINDINGS: Lungs: Mildly hyperaerated lungs consistent with deep inspiratory effort vs reactive airway disease vs mild COPD . Pleural spaces: Unremarkable. No pleural effusion. No pneumothorax. Heart/Mediastinum: Unremarkable. No cardiomegaly. Bones/joints: Unremarkable. XR/XR chest 1V portable [id number] IMPRESSION: Mildly hyperaerated lungs consistent with deep inspiratory effort vs reactive airway disease vs mild COPD .
[2022-10-01 18:37] LABS: ABG PH Result 7.22 (7.35-7.45); Arterial Blood Gas Hematocrit 53.1 % (42-52); Base Excess ABG -17.1 mmol/L (-2.0-2.0); Blood Gas Allen Test Pos; Blood Gas Operator Identificat glc; Blood Gas Sample Site Radial, right; Blood Gas Sample Type Arterial; HCO3 ABG 7.9 mmol/L (22-26); Oxygen Device ROOM AIR
[2022-10-01 18:46] LABS: Basophils % 0.1 %; Hematocrit 53.8 % (42.0-52.0); Hemoglobin 17.6 g/dL (11.7-16.6); Lymphocytes # 0.7 10^3/uL (0.8-4.8); Lymphocytes % 5.4 %; Mean Corpuscular HGB Conc 32.7 g/dL (30.0-36.0); Mean Corpuscular Hemoglobin 30.9 pg (28.0-34.0); Mean Corpuscular Volume 94.4 fl (80-94); Mean Platelet Volume 9.8 fL (7.4-10.4); Monocytes # 0.3 10^3/uL (0.2-0.9); Monocytes % 2.1 %; Neutrophils # 11.31 10^3/uL (1.8-7.7); Nucleated Red Blood Cells % 0 %; Platelet Count 261 10^3/cmm (130-400); White Blood Count 12.3 10^3/uL (4.0-10.0)
[2022-10-01] MEDS: ondansetron 2 mg/ML SDV 2 mL 4 MG IVP (18:50)
[2022-10-01] MEDS: haloperidol inj 5 mg/mL INJ 1 mL 3 MG IVP (18:50)
[2022-10-01] MEDS: sodium chloride 0.9% 1,000 ML 999 ML IV ×2 (18:51→20:42)
--- NOTE | 2022-10-01 18:59 | ED_ITS ---
HPI - Nausea/Vomiting/Diarrhea General: Chief complaint: Nausea/Vomiting/Diarrhea Stated complaint: ABDOMINAL PAIN/ N/V Time Seen by Provider: 10/01/22 18:18 Source: patient History of Present Illness: 27-year-old male with a history of insulin- dependent diabetes. He was seen this morning and was acidotic with serum ketones. He has been vomiting. He declined admission this morning and left AGAINST MEDICAL ADVICE. He presents with continued vomiting, trouble breathing this evening. He says that he felt better for a few hours, then started to feel bad again with multiple episodes of vomiting. He denies fever or diarrhea. Associated nausea: Yes Associated abdominal pain: No Location of pain: None Radiation: diffuse Pain consistency: other Exacerbating factors: other Relieving factors: none Associated symtoms: Reports altered mental status (mild lethargy), dizziness, headache(s), anorexia, nausea and short of breath; Denies chest pain or fevers/chills Review of Systems Const: Denies: fever(s) ENMT: Denies: throat pain Card: Denies: chest pain Resp: Reports: dyspnea; Denies: productive cough or non-productive cough GI: Reports: nausea Skin/Breast: Denies: rash Neuro: Reports: headache(s) and dizziness PFSH ED PFSH: Medical History Abdominal pain Diabetic keto-acidosis DKA (diabetic ketoacidoses) DKA (diabetic ketoacidosis) GERD (gastroesophageal reflux disease) High anion gap metabolic acidosis History of pancreatitis Hyperglycemia Hypoglycemia due to insulin Long-term insulin use Marijuana use Methamphetamine abuse Nausea & vomiting Noncompliance with diabetes treatment Pancreatitis Type 1 diabetes With recurrent admissions for DKA, severe Uncontrolled type 1 diabetes mellitus Surgical History No pertinent past surgical history Family History Other Diabetes Social History Smoking and tobacco status: current every day smoker Alcohol intake: never Lives independently: Yes Household members: family Marital status: Single Current occupational status: disabled Physical Exam Const: EXAM LIMITATIONS: altered mental status (mild lethargy) GENERAL KAYKAY EARANCE: cooperative and ill appearing HENMT: COMMON NORMALS: normocephalic and atraumatic HEAD & SCALP: no rmocephalic and atraumatic Eye: COMMON NORMALS: Equal, round and reactive pupils present and EOMs intact bilaterally PUPIL: Yes Equal, round and reactive pupils present Neck/C-Spine: GENERAL: Yes trachea midline Chest: CHEST: Yes Symmetrical chest wall rise Resp: COMMON NORMALS: clear to auscultation bilaterally EFFORT & INSPECTION: Yes tachypneic AUSCULTATION: clear to auscultation bilaterally Cardio: COMMON NORMALS: regular rhythm RATE: tachycardic RHYTHM: regular rhythm GI: COMMON NORMALS: Normal to inspection, nondistended, normoactive bowel sounds present and Soft to palpation PALPATION: Yes Soft to palpation Extremity: COMMON NORMALS: no pedal edema Neuro: LISA COMA SCALE: document GCS findings [place] coma scale eye opening: Spontaneous [place] coma scale verbal response: Orientated [place] coma scale motor response: Obey commands Lisa coma scale total score: 15 Psych: COMMON NORMALS: cooperative Course Vital Signs: Vital signs: Vital Signs Temperature 99.2 F 10/01/22 18:17 Pulse Rate 99 10/01/22 19:52 Respiratory Rate 13 10/01/22 19:52 Blood Pressure 115/71 10/01/22 19:52 Pulse Oximetry 96 10/01/22 19:52 Oxygen Delivery Me thod 10/01/22 19:52 MDM - Nausea/Vomiting/Diarrhea Medical Decision Making Patient has an anion gap of 31. pH is 7.22. Bicarb is 8. He is given 2 L bolus here. I spoke with the hospitalist on. She knows this patient, and states his sugars are quite brittle. We will place him on D5 normal saline and a low-dose insulin drip and place him in the ICU. We will continue to check labs until gap closes. No more episodes of vomiting here. Lab Data 10/01/22 18:40 10/01/22 18:40 Radiology Impressions Chest X-Ray 10/01/22 18:24 IMPRESSION: Mildly hyperaerated lungs consistent with deep inspiratory effort vs reactive airway disease vs mild COPD . Laboratory Results WBC 12.3 10^3/uL (4.0-10.0) H 10/01/22 18:40 RBC 5.70 10^6/uL (4.1-5.3) H 10/01/22 18:40 Hgb 17.6 g/dL (11.7-16.6) H 10/01/22 18:40 Hct 53.8 % (42.0-52.0) H 10/01/22 18:40 MCV 94.4 fl (80-94) H 10/01/22 18:40 MCH 30.9 pg (28.0-34.0) 10/01/22 18:40 MCHC 32.7 g/dL (30.0-36.0) 10/01/22 18:40 RDW 12.0 % (12.1-15.1) L 10/01/22 18:40 Plt Count 261 10^3/cmm (130-400) 10/01/22 18:40 MPV 9.8 fL (7.4-10.4) 10/01/22 18:40 Neut % (Auto) 92.0 % 10/01/22 18:40 Lymph % (Auto) 5.4 % 10/01/22 18:40 [place] % (Auto) 2.1 % 10/01/22 18:40 Eos % (Auto) 0.0 % 10/01/22 18:40 Baso % (Auto) 0.1 % 10/01/22 18:40 Neut # (Auto) 11.31 10^3/uL (1.8-7.7) H 10/01/22 18:40 Lymph # (Auto) 0.7 10^3/uL (0.8-4.8) L 10/01/22 18:40 [place] # (Auto) 0.3 10^3/uL (0.2-0.9) 10/01/22 18:40 Eos # (Auto) 0.0 10^3/uL (0.0-0.8) 10/01/22 18:40 Baso # (Auto) 0.0 10^3/uL (0.0-0.1) 10/01/22 18:40 Nucleated RBC % (auto) 0 % 10/01/22 18:40 Nucleated RBCs # 0.0 /100WBC 10/01/22 18:40 Specimen Type Arterial 10/01/22 18:24 Sample Site Radial, right 10/01/22 18:24 ABG pH 7.22 (7.35-7.45) L 10/01/22 18:24 ABG pCO2 19.0 mmHg (35-45) L* 10/01/22 18:24 ABG pO2 116.0 mmHg (80.0-100.0) H 10/01/22 18:24 ABG HCO3 7.9 mmol/L (22-26) L 10/01/22 18:24 ABG Base Excess -17.1 mmol/L (-2.0-2.0) L 10/01/22 18:24 Hasmukh Test Pos 10/01/22 18:24 Hematocrit 53.1 % (42-52) H 10/01/22 18:24 O2 Delivery Device Room air 10/01/22 18:24 Graduate Internship ID glc 10/01/22 18:24 Sodium 134 mmol/L (136-145) L 10/01/22 18:40 Potassium 4.4 mmol/L (3.5-5.1) 10/01/22 18:40 Chloride 99 mmol/L (98-107) 10/01/22 18:40 Carbon Dioxide 8 mmol/L (22-29) L* 10/01/22 18:40 Anion Gap 31.4 (5-19) H 10/01/22 18:40 BUN 12 mg/dL (6-20) 10/01/22 18:40 Creatinine 0.8 mg/dL (0.7-1.2) 10/01/22 18:40 GFR Calculation 117.8 mL/min (90-130) 10/01/22 18:40 Glucose 206 mg/dL (65-115) H 10/01/22 18:40 Calculated Osmolality 284 mOsm/kg (285-295) L 10/01/22 18:40 Lactate 1.0 mmol/L (0.5-2.2) 10/01/22 18:40 Calcium 9.3 mg/dL (8.5-10.5) 10/01/22 18:40 Phosphorus 2.4 mg/dL (2.5-4.5) L 10/01/22 18:40 Magnesium 2.0 mg/dL (1.7-2.3) 10/01/22 18:40 Total Bilirubin 0.4 mg/dL (0.15-1.2) 10/01/22 18:40 AST 23 U/L (0-40) 10/01/22 18:40 ALT 23 U/L (0-41) 10/01/22 18:40 Alkaline Phosphatase 83 U/L (40-130) 10/01/22 18:40 C-Reactive Protein 3.0 mg/L (0.0-4.9) 10/01/22 18:40 Total Protein 9.0 g/dL (6.6-8.7) H 10/01/22 18:40 Albumin 5.1 g/dL (3.5-5.2) 10/01/22 18:40 Globulin 3.9 g/dL (1.3-4.6) 10/01/22 18:40 Urine Color Yellow (Yellow) 10/01/22 19:45 Urine Appearance Clear (CLEAR) 10/01/22 19:45 Urine pH 5 (5-7) 10/01/22 19:45 Ur Specific [place] 1.030 (1.005-1.030) 10/01/22 19:45 Urine Protein 1+ (Negative) H 10/01/22 19:45 Urine Glucose (UA) 4+ (Normal) H 10/01/22 19:45 Urine Ketones 3+ (Negative) H 10/01/22 19:45 Urine Blood Neg (Negative) 10/01/22 19:45 Urine Nitrate Negative (Negative) 10/01/22 19:45 Urine Bilirubin Neg (Negative) 10/01/22 19:45 Urine Urobilinogen Neg mg/dL (Negative) 10/01/22 19:45 Ur Leukocyte Esterase Negative (Negative) 10/01/22 19:45 Urine Opiates Screen Negative ng/mL (Negative) 10/01/22 19:45 Ur Barbiturates Screen Negative ng/mL (Negative) 10/01/22 19:45 Ur Phencyclidine Scrn Negative ng/mL (Negative) 10/01/22 19:45 Ur Amphetamines Screen Negative ng/mL (Negative) 10/01/22 19:45 U Benzodiazepines Scrn Negative ng/mL (Negative) 10/01/22 19:45 Urine Cocaine Screen Negative ng/mL (Negative) 10/01/22 19:45 U Marijuana (THC) Screen Positive ng/mL (Negative) H 10/01/22 19:45 Serum Ketones Positive (Negative) H 10/01/22 18:40 Critical Care Time Critical Care Time: Critical Care Time: Yes Total Critical Care Time: 35 Attestation: This case had a high probability of a clinically significant, sudden, or life threatening deterioration of this patient's condition which required my full and direct attention, intervention and personal management. Time is independent of any procedures performed. Discharge Plan Discharge Patient Disposition: Admitted As Inpatient Admit Provider: Xiomara Arevalo Clinical Impression: DKA (diabetic ketoacidosis) Condition: Serious Coding Level of Care Code ED Health Outreach Worker for Chg Fwd Exam Comprehensive
[2022-10-01 19:11] LABS: Ketone (Acetest) Serum Positive (Negative)
[2022-10-01 19:13] LABS: Alanine Aminotransferase 23 U/L (0-41); Albumin Level 5.1 g/dL (3.5-5.2); Alkaline Phosphatase 83 U/L (40-130); Aspartate Amino Transferase 23 U/L (0-40); Blood Urea Nitrogen 12 mg/dL (6-20); Calcium 9.3 mg/dL (8.5-10.5); Chloride 99 mmol/L (98-107); Globulin 3.9 g/dL (1.3-4.6); Glomerular Filtration Rate 117.8 mL/min (90-130); Glucose 206 mg/dL (65-115); Osmolality Calculated 284 mOsm/kg (285-295); Phosphorus 2.4 mg/dL (2.5-4.5); Sodium 134 mmol/L (136-145); Total Bilirubin 0.4 mg/dL (0.15-1.2)
[2022-10-01 19:31] LABS: Anion Gap 31.4 (5-19); Potassium 4.4 mmol/L (3.5-5.1)
[2022-10-01 19:33] LABS: Carbon Dioxide 8 mmol/L (22-29)
[2022-10-01 20:05] LABS: Amphetamines Screen Urine Negative (Negative); Barbiturates Screen Urine Negative (Negative); Benzodiazepines Screen Urine Negative (Negative); Cocaine Screen Urine Negative (Negative); Opiate Screen Urine Negative (Negative); PCP Screen Urine Negative (Negative); THC Screen Urine Positive (Negative)
[2022-10-01 20:07] LABS: Bilirubin Urine Neg (Negative); Blood Urine Neg (Negative); Glucose Urine UA 4+ (Normal); Ketones Urine 3+ (Negative); Leukocyte Esterase Urine Negative (Negative); Nitrate Urine Negative (Negative); Protein Urine 1+ (Negative); Urine Appearance Clear (CLEAR); Urine Color Yellow (Yellow); Urobilinogen Urine Neg (Negative); pH Urine 5 (5-7)
[2022-10-01] MEDS: dextrose 5%-sod chloride 0.9% 1,000 ML 200 ML IV (20:41)
[2022-10-01] MEDS: insulin regular-human 250 UNIT in sodium chloride 0.9% 250 ML IV (20:42)
--- NOTE | 2022-10-01 20:45 | PC.NURSE ---
insulin drip started at 3 units/hour per dr. schwartz
--- NOTE | 2022-10-01 21:37 | P.HP_ITS ---
Providers/Chief Complaint Admitting Physician: Xiomara Arevalo MD Primary Care Provider: MARGE Castellano Chief Complaint: ABDOMINAL PAIN/ N/V History of Present Illness Salvatore Ott is a 27 year old male with type 1 DM who presented to the ER earlier today with abdominal pain nausea and vomiting began last night. patient was in DKA for which she was started on IV fluids antiemetics and the patient decided to leave AMA. He returned to the emergency room again in the evening with no relief in symptoms and is now being admitted in view of DKA. Patient has a past history of multiple admissions for the same reason. He has evidence of DKA with elevated blood sugar, positive serum ketones and anion gap. Review of Systems 2 General: Reports: 10 or more systems reviewed and unremarkable except in HPI and below Const: Denies: fever(s), chills or body aches Eyes: Denies: change in vision, blurry vision or photophobia ENMT: Reports: hoarseness; Denies: throat pain, enlarged tonsils, odynophagia or nasal congestion Card: Denies: chest pain, palpitations, irregular heart rhythm, edema, swelling of feet/ankles, lightheadedness, pre-syncope, dyspnea on exertion or orthopnea Resp: Denies: dyspnea, productive cough, non-productive cough, wheezing, stridor, pain on inspiration, change in phlegm color, hemoptysis or chest congestion GI: Reports: abdominal pain, nausea and vomiting; Denies: hematemesis, coffee ground emesis, dysphagia, heartburn, diarrhea, constipation, GI cramping, change in stool character, hematochezia or melena : Denies: flank pain, dysuria, urinary frequency, urinary urgency, urinary hesitancy or hematuria Musc: Denies: neck pain, back pain, extremity pain, joint swelling, joint warmth or deformity Neuro: Denies: headache(s), numbness in extremities, weakness in extremities, sensory changes, difficulty walking, frequent falls, dizziness, vertigo, behavioral changes, Slurred speech present or seizure-like activity Psych: Denies: anxiety, depression, suicidal ideation or homicidal ideation Endo: Denies: polyuria, polydipsia, tired all the time, cold intolerance or hot flashes [place]/Lymph: Denies: easy bruising or easy bleeding Medications/Allergies Home Medications Medication Instructions Recorded Confirmed Last Taken Type blood sugar diagnostic #100 ea 03/20/21 08/11/22 Unknown Rx blood sugar diagnostic (Blood #100 ea 03/20/21 08/11/22 Unknown Rx Glucose Test strips) blood-glucose meter (Blood Glucose #1 ea 03/20/21 08/11/22 Unknown Rx Monitoring kit) lancets #200 ea 05/17/21 08/11/22 Unknown Rx strips #200 ea 05/17/21 08/11/22 Unknown Rx lancets #200 ea 06/18/21 08/11/22 Unknown Rx strips #1 ea 06/18/21 08/11/22 Unknown Rx multivitamin 1 tab PO DAILY 11/23/21 08/11/22 05/29/22 History blood-glucose meter,continuous #1 ea 04/29/22 08/11/22 Unknown Rx (Dexcom G6 Solar Installation Crew Supervisor) blood-glucose sensor (Dexcom G6 #3 ea 04/29/22 08/11/22 Unknown Rx Sensor device) blood-glucose transmitter (Dexcom #3 ea 04/29/22 08/11/22 Unknown Rx G6 Transmitter device) ondansetron HCl 4 mg tablet 4 mg PO QID PRN nausea and 08/11/22 08/11/22 Unknown Rx vomiting #20 tabs oseltamivir 75 mg capsule (Tamiflu) 75 mg PO BID 5 days #10 caps 08/11/22 08/11/22 Unknown Rx insulin aspart U-100 100 unit/mL See Rx Instructions .Route 09/16/22 Unknown Rx (3 mL) subcutaneous pen (Novolog .COMPLEX #15 mL FlexPen U-100 Insulin aspart) insulin glargine 100 unit/mL (3 See Rx Instructions .Route 09/16/22 Unknown Rx mL) subcutaneous pen (Lantus .COMPLEX #90 mL Solostar U-100 Insulin) Allergies Allergy/AdvReac Type Severity Reaction Status Date / Time promethazine [From Phenergan] Allergy Unknown Verified 08/11/22 15:38 PFSH Acute PFSH: Medical History Abdominal pain Diabetic keto-acidosis DKA (diabetic ketoacidoses) DKA (diabetic ketoacidosis) GERD (gastroesophageal reflux disease) High anion gap metabolic acidosis History of pancreatitis Hyperglycemia Hypoglycemia due to insulin Long-term insulin use Marijuana use Methamphetamine abuse Nausea & vomiting Noncompliance with diabetes treatment Pancreatitis Type 1 diabetes With recurrent admissions for DKA, severe Uncontrolled type 1 diabetes mellitus Surgical History No pertinent past surgical history Family History Other Diabetes Social History Smoking and tobacco status: current every day smoker Alcohol intake: never Lives independently: Yes Household members: family Marital status: Single Current occupational status: disabled Vitals/I&O/Wt Last Vital Signs Temp 99.2 F 10/01/22 18:17 Pulse 99 10/01/22 19:52 Resp 13 10/01/22 19:52 BP 115/71 10/01/22 19:52 Pulse Ox 96 10/01/22 19:52 O2 Del Method 10/01/22 20:46 10/01/22 10/01/22 10/01/22 06:59 14:59 22:59 Intake Total 1000 / 1000 Balance 1000 / 1000 Weight last 48 hrs Weight 70.307 kg Physical Exam Narrative: General: lethargic, wakes up easily, awake oriented when awake. HEENT: PERRLA, pupils bilaterally equal and reactive, pallors not present Chest: Normal vesicular breath sounds, no added sounds, equal good air entry bilaterally CVS: S1-S2 regular, no murmurs, no tachycardia, no gallops, no rubs Abdomen: Soft, nontender, no organomegaly, bowel sounds present Neuro: lethargic, moves all extremities in bed, no focal deficits grossly Data 10/01/22 18:40 10/01/22 18:40 A&P Assessment and plan (1) DKA (diabetic ketoacidosis): Attestations Medical Necessity Statement*: Diabetic ketoacidosis: Start patient on insulin drip as per DKA/HHS protocol with target blood sugars between 100-130 D5 normal saline at 150 cc/h as blood sugar <250 High anion gap of 31 Monitor BMP every 6 hours. Once potassium less than 4 we will add 20 mg of potassium to IV fluids. Monitor saturations. Maintain over 90%. Transition to sliding scale and long-acting insulin once anion gap resolves. Critical Care Time: The high probability of a clinically significant, sudden or life threatening deterioration of the patient's [endocrine,neuro] system(s) required my full and direct attention, intervention and personal management. The critical care time is as shown. This time is in addition to time spent performing any reported procedures but includes the following: [x] Data and vital sign review and interpretation [x] Patient assessment, examination and intervention [x] Documentation [x] Medication orders and management Critical Care Time (min): 35 Coding Level of Care Code Acute Code for Chg Fwd Diagnoses DKA (diabetic ketoacidosis) E11.10
[2022-10-01 21:44] LABS: Glucose Point of Care 131 mg/dL (70-110)
[2022-10-01] MEDS: famotidine 20 mg/2 mL INJ IVP (21:58)
[2022-10-01] MEDS: lidocaine 1% 5 ML in potassium chloride premix 100 ML 52.5 ML IV (22:00)
[2022-10-01 22:10] LABS: Alanine Aminotransferase 19 U/L (0-41); Albumin Level 4.8 g/dL (3.5-5.2); Alkaline Phosphatase 68 U/L (40-130); Anion Gap 26.2 (5-19); Aspartate Amino Transferase 18 U/L (0-40); Blood Urea Nitrogen 10 mg/dL (6-20); Calcium 8.6 mg/dL (8.5-10.5); Carbon Dioxide 10 mmol/L (22-29); Chloride 105 mmol/L (98-107); Creatinine Clr Calc Pharmacy 148.3655; Globulin 2.8 g/dL (1.3-4.6); Glomerular Filtration Rate 137.4 mL/min (90-130); Glucose 144 mg/dL (65-115); Osmolality Calculated 286 mOsm/kg (285-295); Potassium 4.2 mmol/L (3.5-5.1); Sodium 137 mmol/L (136-145); Total Bilirubin 0.4 mg/dL (0.15-1.2); Total Protein 7.6 g/dL (6.6-8.7)
[2022-10-01 23:07] LABS: Glucose Point of Care 146 mg/dL (70-110)
[2022-10-01 23:58] LABS: Glucose Point of Care 165 mg/dL (70-110)
[2022-10-02] VITALS (12 sets, daily range): BP systolic 102–126; BP diastolic 58–84; PULSE 77–100; RESP 17–32; O2SAT 98–100; BMI 23.1
[2022-10-02 01:04] LABS: Glucose Point of Care 155 mg/dL (70-110)
[2022-10-02] MEDS: dextrose 5%-sod chloride 0.9% 1,000 ML 150 ML IV ×2 (01:49→07:58)
[2022-10-02 02:03] LABS: Glucose Point of Care 118 mg/dL (70-110)
[2022-10-02] MEDS: ondansetron 2 mg/ML SDV 2 mL 4 MG IVP (02:11)
[2022-10-02 03:11] LABS: Glucose Point of Care 113 mg/dL (70-110)
[2022-10-02 04:13] LABS: Glucose Point of Care 105 mg/dL (70-110)
[2022-10-02 05:08] LABS: Glucose Point of Care 95 mg/dL (70-110)
[2022-10-02 05:45] LABS: Alanine Aminotransferase 17 U/L (0-41); Albumin Level 4.3 g/dL (3.5-5.2); Alkaline Phosphatase 62 U/L (40-130); Anion Gap 17.6 (5-19); Aspartate Amino Transferase 17 U/L (0-40); Blood Urea Nitrogen 9 mg/dL (6-20); Calcium 8.3 mg/dL (8.5-10.5); Carbon Dioxide 16 mmol/L (22-29); Chloride 110 mmol/L (98-107); Globulin 2.5 g/dL (1.3-4.6); Glomerular Filtration Rate 164.2 mL/min (90-130); Glucose 114 mg/dL (65-115); Osmolality Calculated 290 mOsm/kg (285-295); Potassium 3.6 mmol/L (3.5-5.1); Sodium 140 mmol/L (136-145); Total Bilirubin 0.5 mg/dL (0.15-1.2); Total Protein 6.8 g/dL (6.6-8.7)
[2022-10-02 06:14] LABS: Glucose Point of Care 95 mg/dL (70-110)
[2022-10-02 06:29] LABS: Add Urine Culture? No; RBC Urine 0-4 /hpf (0-2); Squamous Epithelial Cell Urine 0-4 /hpf (0-5); WBC Urine 0-4 /hpf (0-5)
[2022-10-02 07:41] LABS: Glucose Point of Care 116 mg/dL (70-110)
[2022-10-02] MEDS: famotidine 20 mg/2 mL INJ IVP (07:58)
[2022-10-02 08:34] LABS: Glucose Point of Care 126 mg/dL (70-110)
[2022-10-02 09:31] LABS: Glucose Point of Care 126 mg/dL (70-110)
[2022-10-02 09:56] LABS: Alanine Aminotransferase 18 U/L (0-41); Albumin Level 4.1 g/dL (3.5-5.2); Alkaline Phosphatase 63 U/L (40-130); Anion Gap 18.4 (5-19); Aspartate Amino Transferase 20 U/L (0-40); Blood Urea Nitrogen 8 mg/dL (6-20); Calcium 8.5 mg/dL (8.5-10.5); Carbon Dioxide 15 mmol/L (22-29); Chloride 108 mmol/L (98-107); Globulin 2.8 g/dL (1.3-4.6); Glomerular Filtration Rate 137.4 mL/min (90-130); Glucose 146 mg/dL (65-115); Osmolality Calculated 287 mOsm/kg (285-295); Potassium 3.4 mmol/L (3.5-5.1); Sodium 138 mmol/L (136-145); Total Bilirubin 0.7 mg/dL (0.15-1.2); Total Protein 6.9 g/dL (6.6-8.7)
[2022-10-02 10:20] LABS: Glucose Point of Care 145 mg/dL (70-110)
[2022-10-02 11:09] LABS: Glucose Point of Care 122 mg/dL (70-110)
--- NOTE | 2022-10-02 11:18 | PC.NURSE ---
Pt stated that he wanted to leave and sign his AMA paperwork. Education was provided on the importance of compliance but he stated he was going to leave anyway. Dr. Fiore.
--- NOTE | 2022-10-02 11:19 | P.DS_ITS ---
Discharge Providers Date of Admission: 10/01/22 20:00 Date of Discharge: October 02, 2022 Attending Provider at Admission: Xiomara Arevalo MD Attending Provider at Discharge: Jase Luna MD Primary Care Provider: MARGE Castellano Diagnoses at Discharge Discharge Diagnosis (1) DKA (diabetic ketoacidosis): Status: Acute Reason for Visit Reason for Visit: ABDOMINAL PAIN/ N/V Hospital Course Hospital Course Salvatore Ott is a 27 year old male with type 1 DM who presented to the ER earlier today with abdominal pain nausea and vomiting began last night. patient was in DKA for which she was started on IV fluids antiemetics and the patient decided to leave AMA.? He returned to the emergency room again in the evening with no relief in symptoms and is now being admitted in view of DKA.? Patient has a past history of multiple admissions for the same reason.? He has evidence of DKA with elevated blood sugar, positive serum ketones and anion gap. Patient was admitted to ICU and started on DKA insulin drip. He was on IV fluids and BMP was monitored every 4 hourly. His anion gap was closing but still elevated. Patient required further IV fluids and insulin drip for anion gap to close completely before can transition to his home dose of insulin s liding scale but patient was adamant in leaving the hospital. Even after multiple attempts to explain to him the need for continued hospitalization he eventually left AMA. He states he has an appointment with his chief wheelage clerk on October 18 which he is planning to keep for a possible transition over to insulin pump. Physical Exam Narrative: General: No acute distress, AO x3 HEENT: PERRLA, pupils bilaterally equal and reactive, pallors not present Chest: Normal vesicular breath sounds, no added sounds, equal good air entry bilaterally CVS: S1-S2 regular, no murmurs, no tachycardia, no gallops, no rubs Abdomen: Soft, nontender, no organomegaly, bowel sounds present Neuro: lethargic, moves all extremities in bed, no focal deficits grossly Discharge Data Studies Completed and Pending Completed Studies During Hospitalization Category Date Time Status XR chest 1V portable [id number] Stat Exams 10/01/22 18:24 Completed Pending at discharge Category Date Time Status Comprehensive Metabolic Panel Q6H Lab 10/02/22 15:25 Ordered Radiology Impressions Chest X-Ray 10/01/22 18:24 IMPRESSION: Mildly hyperaerated lungs consistent with deep inspiratory effort vs reactive airway disease vs mild COPD . Laboratory Results WBC 12.3 10^3/uL (4.0-10.0) H 10/01/22 18:40 RBC 5.70 10^6/uL (4.1-5.3) H 10/01/22 18:40 Hgb 17.6 g/dL (11.7-16.6) H 10/01/22 18:40 Hct 53.8 % (42.0-52.0) H 10/01/22 18:40 MCV 94.4 fl (80-94) H 10/01/22 18:40 MCH 30.9 pg (28.0-34.0) 10/01/22 18:40 MCHC 32.7 g/dL (30.0-36.0) 10/01/22 18:40 RDW 12.0 % (12.1-15.1) L 10/01/22 18:40 Plt Count 261 10^3/cmm (130-400) 10/01/22 18:40 MPV 9.8 fL (7.4-10.4) 10/01/22 18:40 Neut % (Auto) 92.0 % 10/01/22 18:40 Lymph % (Auto) 5.4 % 10/01/22 18:40 [place] % (Auto) 2.1 % 10/01/22 18:40 Eos % (Auto) 0.0 % 10/01/22 18:40 Baso % (Auto) 0.1 % 10/01/22 18:40 Neut # (Auto) 11.31 10^3/uL (1.8-7.7) H 10/01/22 18:40 Lymph # (Auto) 0.7 10^3/uL (0.8-4.8) L 10/01/22 18:40 [place] # (Auto) 0.3 10^3/uL (0.2-0.9) 10/01/22 18:40 Eos # (Auto) 0.0 10^3/uL (0.0-0.8) 10/01/22 18:40 Baso # (Auto) 0.0 10^3/uL (0.0-0.1) 10/01/22 18:40 Nucleated RBC % (auto) 0 % 10/01/22 18:40 Nucleated RBCs # 0.0 /100WBC 10/01/22 18:40 Specimen Type Arterial 10/01/22 18:24 Sample Site Radial, right 10/01/22 18:24 ABG pH 7.22 (7.35-7.45) L 10/01/22 18:24 ABG pCO2 19.0 mmHg (35-45) L* 10/01/22 18:24 ABG pO2 116.0 mmHg (80.0-100.0) H 10/01/22 18:24 ABG HCO3 7.9 mmol/L (22-26) L 10/01/22 18:24 ABG Base Excess -17.1 mmol/L (-2.0-2.0) L 10/01/22 18:24 Hasmukh Test Pos 10/01/22 18:24 Hematocrit 53.1 % (42-52) H 10/01/22 18:24 O2 Delivery Device Room air 10/01/22 18:24 Contact Acid Plant Operator Helper ID [id number] 10/01/22 18:24 Sodium 138 mmol/L (136-145) 10/02/22 09:29 Potassium 3.4 mmol/L (3.5-5.1) L 10/02/22 09:29 Chloride 108 mmol/L (98-107) H 10/02/22 09:29 Carbon Dioxide 15 mmol/L (22-29) L 10/02/22 09:29 Anion Gap 18.4 (5-19) 10/02/22 09:29 BUN 8 mg/dL (6-20) 10/02/22 09:29 Creatinine 0.7 mg/dL (0.7-1.2) 10/02/22 09:29 GFR Calculation 137.4 mL/min (90-130) H 10/02/22 09:29 Glucose 146 mg/dL (65-115) H 10/02/22 09:29 POC Glucose 122 mg/dL (70-110) H 10/02/22 11:07 Calculated Osmolality 287 mOsm/kg (285-295) 10/02/22 09:29 Lactate 1.0 mmol/L (0.5-2.2) 10/01/22 18:40 Calcium 8.5 mg/dL (8.5-10.5) 10/02/22 09:29 Phosphorus 2.4 mg/dL (2.5-4.5) L 10/01/22 18:40 Magnesium 2.0 mg/dL (1.7-2.3) 10/01/22 18:40 Total Bilirubin 0.7 mg/dL (0.15-1.2) 10/02/22 09:29 AST 20 U/L (0-40) 10/02/22 09:29 ALT 18 U/L (0-41) 10/02/22 09:29 Alkaline Phosphatase 63 U/L (40-130) 10/02/22 09:29 C-Reactive Protein 3.0 mg/L (0.0-4.9) 10/01/22 18:40 Total Protein 6.9 g/dL (6.6-8.7) 10/02/22 09:29 Albumin 4.1 g/dL (3.5-5.2) 10/02/22 09:29 Globulin 2.8 g/dL (1.3-4.6) 10/02/22 09:29 Urine Color Yellow (Yellow) 10/01/22 19:45 Urine Appearance Clear (CLEAR) 10/01/22 19:45 Urine pH 5 (5-7) 10/01/22 19:45 Ur Specific [place] 1.030 (1.005-1.030) 10/01/22 19:45 Urine Protein 1+ (Negative) H 10/01/22 19:45 Urine Glucose (UA) 4+ (Normal) H 10/01/22 19:45 Urine Ketones 3+ (Negative) H 10/01/22 19:45 Urine Blood Neg (Negative) 10/01/22 19:45 Urine Nitrate Negative (Negative) 10/01/22 19:45 Urine Bilirubin Neg (Negative) 10/01/22 19:45 Urine Urobilinogen Neg mg/dL (Negative) 10/01/22 19:45 Ur Leukocyte Esterase Negative (Negative) 10/01/22 19:45 Ur Microscopic Indic Cancelled 10/01/22 19:45 Urine RBC 0-4 /hpf (0-2) H 10/01/22 19:45 Urine WBC 0-4 /hpf (0-5) H 10/01/22 19:45 Ur Squamous Epith Cells 0-4 /hpf (0-5) H 10/01/22 19:45 Amorphous Sediment Not Reportable 10/01/22 19:45 Urine Bacteria None /hpf (NONE) 10/01/22 19:45 Urine Opiates Screen Negative ng/mL (Negative) 10/01/22 19:45 Ur Barbiturates Screen Negative ng/mL (Negative) 10/01/22 19:45 Ur Phencyclidine Scrn Negative ng/mL (Negative) 10/01/22 19:45 Ur Amphetamines Screen Negative ng/mL (Negative) 10/01/22 19:45 U Benzodiazepines Scrn Negative ng/mL (Negative) 10/01/22 19:45 Urine Cocaine Screen Negative ng/mL (Negative) 10/01/22 19:45 U Marijuana (THC) Screen Positive ng/mL (Negative) H 10/01/22 19:45 Serum Ketones Positive (Negative) H 10/01/22 18:40 Vitals Last Vital Signs Temp 98.4 F 10/01/22 22:00 Pulse 92 10/02/22 08:00 Resp 18 10/02/22 08:00 BP 102/64 10/02/22 08:00 Pulse Ox 99 10/02/22 08:00 O2 Del Method 10/01/22 20:46 Discharge Plan Discharge Patient Disposition: Left Against Medical Advice Condition: Serious Prescriptions: Continued (DME) Dexcom G6 Hairspring I Inspector Misc See Rx Instructions .ROUTE .MEDSUPPLY Qty: 1 0RF Rx Instructions: takes blood sugar (DME) Dexcom G6 Sensor Device See Rx Instructions .ROUTE .MEDSUPPLY Qty: 3 3RF Rx Instructions: use to take blood sugars (DME) Dexcom G6 Transmitter Device See Rx Instructions .ROUTE .MEDSUPPLY Qty: 3 3RF Rx Instructions: used to take blood sugars ondansetron HCl 4 mg tablet 4 mg PO QID PRN (Reason: nausea and vomiting) Qty: 20 0RF (DME) strips See Rx Instructions .Route .MEDSUPPLY Qty: 1 3RF Rx Instructions: Check blood sugars 3 times daily, with meals, #200, 3 refills (DME) lancets Misc See Rx Instructions .Route Qty: 200 3RF Rx Instructions: check BS, TID with meals Lantus Solostar U-100 Insulin 100 unit/mL (3 mL) insulin pen See Rx Instructions .ROUTE .COMPLEX Qty: 90 3RF Dose Instruction: INJECT 40 UNITS UNDER SKIN TWICE DAILY - FOR USE OF BACK UP Rx Instructions: INJECT 30 UNITS UNDER SKIN TWICE DAILY - FOR USE OF BACK UP insulin aspart U-100 [Novolog FlexPen U-100 Insulin] 100 unit/mL (3 mL) insulin pen See Rx Instructions .ROUTE .COMPLEX Qty: 15 3RF Dose Instruction: INJECT UNDER SKIN THREE TIMES DAILY BEFORE MEALS, BASED ON SLIDING SCALE PROVIDED- BACKUP IF PUMP NOT WORKING Rx Instructions: INJECT UNDER SKIN THREE TIMES DAILY BEFORE MEALS, BASED ON SLIDING SCALE PROVIDED- BACKUP IF PUMP NOT WORKING (DME) blood sugar diagnostic Strip See Rx Instructions .Route Qty: 100 0RF Rx Instructions: As directed (DME) Blood Glucose Test Strip See Rx Instructions .Route Qty: 100 0RF Rx Instructions: As directed (DME) blood-glucose meter [Blood Glucose Monitoring] Kit See Rx Instructions .Route Qty: 1 0RF Rx Instructions: As directed (DME) strips See Rx Instructions .Route .MEDSUPPLY Qty: 200 3RF Rx Instructions: Check blood sugars 3 times daily, before meals (DME) lancets See Rx Instructions .Route .MEDSUPPLY Qty: 200 1RF Rx Instructions: Check blood sugars 3 times daily, before meals multivitamin Tablet 1 tab PO DAILY Discharge Diet: Cardiac and Diabetic Discharge Activity: Resume usual activity and Increase activity as tolerated Patient Instructions: Opioid Safety Activity Restrictions/Additional Instructions: Discussed in detail regarding need for compliance and follow-up with chief wheelage clerk. Discharge Attestations Time Spent in Discharge Care*: critical care time (Managing insulin drip for DKA monitoring BMP, counseling regarding continued care) Critical Care Time (min): 40 Status at Discharge: Cognitive status at discharge: cognitively intact , Behavioral status at discharge: cooperative , Functional status at discharge: independent ambulation , Overall status at discharge: patient is progressing back to baseline Quality Metrics Clinical Quality Measures [ No reported AMI, CVA or VTE this stay] Coding Level of Care Code Acute [facility] note Diagnoses DKA (diabetic ketoacidosis) E11.10
[2022-10-03 07:36] LABS: Glucose Point of Care 119 mg/dL (70-110)
== END 2022-10-02 11:30 | disposition left against medical advice (07) ==
LOC: ER 19:05 → ICU 21:05
PROVIDERS: Admitting Provider Student in an Organized Health Care Education/Training Program; Emergency Provider Emergency Medicine; PCP Nurse Practitioner Family; Visit Provider Student in an Organized Health Care Education/Training Program
DX: E10.10 Type 1 diabetes mellitus with ketoacidosis without coma (principal); Z79.4 Long term (current) use of insulin; F17.210 Nicotine dependence, cigarettes, uncomplicated
CPT/HCPCS: 36415; 36416; 36600; 71045; 80051; 80053; 80306; 81001; 81003; 82009; 82330; 82803; 82805; 82962; 83605; 83735; 84100; 85025; 86140; 87040; 93005; 96361; 96365; 96366; 96367; 96374; 96375; 99285; G0378; J1630; J1815; J2405; J3480; J3490; J7030; J7042; J7050

== ENCOUNTER → 2022-10-18 12:58 | Outpatient (BNVA) | payer MEDICARE, MEDICAID, SELFPAY | PROVIDERS: PCP Nurse Practitioner Family; Visit Provider Internal Medicine | DX: E10.10 Type 1 diabetes mellitus with ketoacidosis without coma (principal); E78.2 Mixed hyperlipidemia; E87.3 Alkalosis; Z79.4 Long term (current) use of insulin | CPT/HCPCS: 99214 ==

== ENCOUNTER 2022-12-07 13:02 | Emergency (ER) | payer MEDICARE, MEDICAID, SELFPAY ==
[2022-12-07 13:06] VITALS: BP 168/73; RESP 16; TEMP 36.7; BMI 25.0
--- NOTE | 2022-12-07 13:30 | ED_ITS ---
HPI - Nausea/Vomiting/Diarrhea General: Chief complaint: Nausea/Vomiting/Diarrhea Stated complaint: ABDOMINAL PAIN/ NAUSEA Time Seen by Provider: 12/07/22 13:13 History of Present Illness: Patient is a 27-year-old male comes to the ED via EMS with nausea and vomiting. Patient has medical history of type 1 diabetes. Symptoms started this morning as soon as he woke up. He felt really nauseous in his stomach and had multiple episodes of emesis. Denies any abdominal pain. Says his blood sugar was around 200 this morning. He was given a dose of IV Zofran by EMS while in route and his nausea has resolved and he feels a lot better. Denies any known sick contacts. Denies any fevers, dysuria, hematuria, abdominal pain, diarrhea, constipation or blood in stool. Associated nausea: Yes Associated symtoms: Reports nausea; Denies change in vision, chest pain, dysuria, fatigue, headache(s) or palpitations Review of Systems Const: Denies: fever(s), chills or fatigue Eyes: Denies: change in vision or eye discomfort ENMT: Denies: throat pain, odynophagia, nasal discharge or nasal congestion Card: Denies: chest pain, palpitations, edema, swelling of feet/ankles, dyspnea on exertion or orthopnea Resp: Denies: dyspnea, productive cough or non-productive cough GI: Reports: nausea and vomiting; Denies: abdominal pain, diarrhea, constipation or hematochezia : Denies: flank pain, difficulty urinating, dysuria or hematuria Musc: Denies: neck pain, back pain or extremity swelling Skin/Breast: Denies: rash or new lesions Neuro: Denies: headache(s), numbness in extremities or weakness in extremities PFSH ED PFSH: Medical History Abdominal pain Diabetic keto-acidosis DKA (diabetic ketoacidoses) DKA (diabetic ketoacidosis) GERD (gastroesophageal reflux disease) High anion gap metabolic acidosis History of pancreatitis Hyperglycemia Hypoglycemia due to insulin Long-term insulin use Marijuana use Methamphetamine abuse Nausea & vomiting Noncompliance with diabetes treatment Pancreatitis Type 1 diabetes With recurrent admissions for DKA, severe Uncontrolled type 1 diabetes mellitus Surgical History No pertinent past surgical history Family History Other Diabetes Social History Smoking and tobacco status: current every day smoker Alcohol intake: never Lives independently: Yes Household members: family Marital status: Single Current occupational status: disabled Physical Exam Const: COMMON NORMALS: no acute distress, patient oriented x3, healthy appearing and alert HENMT: COMMON NORMALS: normocephalic HEAD & SCALP: normocephalic MOUTH: Normal oral and palatal mucosa present THROAT: posterior oropharynx normal and uvula midline Neck/C-Spine: COMMON NORMALS: supple GENERAL: Yes normal visual inspection Resp: COMMON NORMALS: normal respiratory effort, No retractions, No use of accessory muscles and clear to auscultation bilaterally AUSCULTATION: clear to auscultation bilaterally Cardio: COMMON NORMALS: regular rate, regular rhythm, S1 normal heart sound present, S2 normal heart sound present, No gallops present (Cardio), No clicks present (Cardio), No murmurs present (Cardio) and Peripheral pulses 2+ throughout RATE: regular rate RHYTHM: regular rhythm HEART SOUNDS: S1 normal heart sound present and S2 normal heart sound present PERIPHERAL PULSES: Peripheral pulses 2+ throughout GI: COMMON NORMALS: Normal to inspection, nondistended, normoactive bowel sounds present, Soft to palpation, non-tender and no masses PALPATION: Yes Soft to palpation : COMMON NORMALS: Yes no CVA tenderness BLADDER/KIDNEY EXAM: Yes no CVA tenderness Back/Pelvis: COMMON NORMALS: no CVA tenderness Extremity: COMMON NORMALS: normal to inspection Neuro: COMMON NORMALS: patient oriented x3 SENSORIUM/ORIENTATION: Yes alert GAIT: Yes Normal gait present Skin: GENERAL SKIN EXAM: dry skin Course Vital Signs: Vital signs: Vital Signs Temperature 98.1 F 12/07/22 13:06 Respiratory Rate 16 12/07/22 13:06 Blood Pressure 168/73 12/07/22 13:06 MDM - Nausea/Vomiting/Diarrhea Medical Decision Making Patient is a 27-year-old male comes to the ED via EMS with nausea and vomiting. Patient has medical history of type 1 diabetes. Symptoms started this morning as soon as he woke up. He felt really nauseous in his stomach and had multiple episodes of emesis. Denies any abdominal pain. Says his blood sugar was around 200 this morning. He was given a dose of IV Zofran by EMS while in route and his nausea has resolved and he feels a lot better. Denies any known sick contacts. Denies any fevers, dysuria, hematuria, abdominal pain, diarrhea, constipation or blood in stool. Vitals are stable. Patient appears nontoxic in no acute distress or pain. Rest of exam is benign. CBC was unremarkable and patient's [id number] glucose test showed a blood sugar of 232. Patient was feeling a lot better after he received that Zofran by EMS and he wants to go home. He is aware that there are still some labs pending but insists that he wants to sign out AMA and go home. Patient signed AMA forms and was discharged. Return ED precautions given. Lab Data I reviewed the patient's lab results. 12/07/22 13:27 12/07/22 13:27 Laboratory Results WBC 5.0 10^3/uL (4.0-10.0) 12/07/22 13:27 RBC 5.82 10^6/uL (4.1-5.3) H 12/07/22 13:27 Hgb 17.8 g/dL (11.7-16.6) H 12/07/22 13:27 Hct 51.5 % (42.0-52.0) 12/07/22 13:27 MCV 88.5 fl (80-94) 12/07/22 13:27 MCH 30.6 pg (28.0-34.0) 12/07/22 13:27 MCHC 34.6 g/dL (30.0-36.0) 12/07/22 13:27 RDW 12.1 % (12.1-15.1) 12/07/22 13:27 Plt Count 230 10^3/cmm (130-400) 12/07/22 13:27 MPV 10.1 fL (7.4-10.4) 12/07/22 13:27 Neut % (Auto) 89.3 % 12/07/22 13:27 Lymph % (Auto) 8.7 % 12/07/22 13:27 [place] % (Auto) 1.4 % 12/07/22 13:27 Eos % (Auto) 0.0 % 12/07/22 13:27 Baso % (Auto) 0.4 % 12/07/22 13:27 Neut # (Auto) 4.50 10^3/uL (1.8-7.7) 12/07/22 13:27 Lymph # (Auto) 0.4 10^3/uL (0.8-4.8) L 12/07/22 13:27 [place] # (Auto) 0.1 10^3/uL (0.2-0.9) L 12/07/22 13:27 Eos # (Auto) 0.0 10^3/uL (0.0-0.8) 12/07/22 13:27 Baso # (Auto) 0.0 10^3/uL (0.0-0.1) 12/07/22 13:27 Nucleated RBC % (auto) 0 % 12/07/22 13: Nucleated RBCs # 0.0 /100WBC 12/07/22 13:27 POC Glucose 232 mg/dL (70-110) H 12/07/22 13:36 Discharge Plan Discharge Patient Disposition: Left Against Medical Advice Clinical Impression: Nausea & vomiting Condition: Stable Prescriptions: No Action ondansetron HCl 4 mg tablet 4 mg PO QID PRN (Reason: nausea and vomiting) Qty: 20 0RF (DME) Omnipod 5 G6 Intro Kit (Gen 5) Cartridge See Rx Instructions .ROUTE .MEDSUPPLY Qty: 1 0RF Rx Instructions: As directed (DME) Omnipod 5 G6 Pods (Gen 5) Cartridge See Rx Instructions .ROUTE .MEDSUPPLY Qty: 15 3RF Rx Instructions: change pod every 3 days (DME) Dexcom G6 Sample Paster Misc See Rx Instructions .ROUTE .MEDSUPPLY Qty: 1 0RF Rx Instructions: takes blood sugar (DME) Dexcom G6 Sensor Device See Rx Instructions .ROUTE .MEDSUPPLY Qty: 9 3RF Rx Instructions: Change every 10 days (DME) Dexcom G6 Transmitter Device See Rx Instructions .ROUTE .MEDSUPPLY Qty: 3 3RF Rx Instructions: change every 90 days (DME) strips See Rx Instructions .Route .MEDSUPPLY Qty: 1 3RF Rx Instructions: Check blood sugars 3 times daily, with meals, #200, 3 refills (DME) lancets Misc See Rx Instructions .Route Qty: 200 3RF Rx Instructions: check BS, TID with meals Lantus Solostar U-100 Insulin 100 unit/mL (3 mL) insulin pen See Rx Instructions .ROUTE .COMPLEX Qty: 90 3RF Dose Instruction: INJECT 40 UNITS UNDER SKIN TWICE DAILY - FOR USE OF BACK UP Rx Instructions: INJECT 30 UNITS UNDER SKIN TWICE DAILY - FOR USE OF BACK UP insulin lispro [Humalog KwikPen Insulin] 100 unit/mL insulin pen See Rx Instructions SUBCUT TID Qty: 27 2RF Rx Instructions: INJECT UNDER SKIN THREE TIMES DAILY BEFORE MEALS, BASED ON SLIDING SCALE PROVIDED- BACKUP IF PUMP NOT WORKING subcutaneously Levemir FlexPen 100 unit/mL (3 mL) insulin pen 30 unit SUBCUT BID 30 Days Qty: 18 2RF Rx Instructions: INJECT 30 UNITS UNDER SKIN TWICE DAILY (DME) blood sugar diagnostic Strip See Rx Instructions .Route Qty: 100 0RF Rx Instructions: As directed (DME) Blood Glucose Test Strip See Rx Instructions .Route Qty: 100 0RF Rx Instructions: As directed (DME) blood-glucose meter [Blood Glucose Monitoring] Kit See Rx Instructions .Route Qty: 1 0RF Rx Instructions: As directed (DME) strips See Rx Instructions .Route .MEDSUPPLY Qty: 200 3RF Rx Instructions: Check blood sugars 3 times daily, before meals (DME) lancets See Rx Instructions .Route .MEDSUPPLY Qty: 200 1RF Rx Instructions: Check blood sugars 3 times daily, before meals multivitamin Tablet 1 tab PO DAILY Referrals: Earlene Titus FNP-C [Primary Care Provider] - Coding Level of Care Code ED Administrative Services Officer for [facility]
[2022-12-07 13:38] LABS: Basophils % 0.4 %; Hematocrit 51.5 % (42.0-52.0); Hemoglobin 17.8 g/dL (11.7-16.6); Lymphocytes # 0.4 10^3/uL (0.8-4.8); Lymphocytes % 8.7 %; Mean Corpuscular HGB Conc 34.6 g/dL (30.0-36.0); Mean Corpuscular Hemoglobin 30.6 pg (28.0-34.0); Mean Corpuscular Volume 88.5 fl (80-94); Mean Platelet Volume 10.1 fL (7.4-10.4); Monocytes # 0.1 10^3/uL (0.2-0.9); Monocytes % 1.4 %; Neutrophils % 89.3 %; Nucleated Red Blood Cells % 0 %; Platelet Count 230 10^3/cmm (130-400); Red Blood Count 5.82 10^6/uL (4.1-5.3); Red Cell Distribution Width 12.1 % (12.1-15.1)
[2022-12-07 13:40] LABS: Glucose Point of Care 232 mg/dL (70-110)
[2022-12-07 14:03] LABS: Alanine Aminotransferase 18 U/L (0-41); Albumin Level 4.9 g/dL (3.5-5.2); Alkaline Phosphatase 51 U/L (40-130); Blood Urea Nitrogen 14 mg/dL (6-20); Calcium 9.2 mg/dL (8.5-10.5); Carbon Dioxide 14 mmol/L (22-29); Chloride 97 mmol/L (98-107); Globulin 3.2 g/dL (1.3-4.6); Glomerular Filtration Rate 164.2 mL/min (90-130); Glucose 221 mg/dL (65-115); Osmolality Calculated 291 mOsm/kg (285-295); Sodium 137 mmol/L (136-145); Total Bilirubin 0.8 mg/dL (0.15-1.2); Total Protein 8.1 g/dL (6.6-8.7)
[2022-12-07 14:08] LABS: Anion Gap 30.2 (5-19); Aspartate Amino Transferase 19 U/L (0-40); Potassium 4.2 mmol/L (3.5-5.1)
== END 2022-12-07 14:21 | disposition left against medical advice (07) ==
PROVIDERS: Emergency Provider Physician Assistant; PCP Nurse Practitioner Family
DX: R11.2 Nausea with vomiting, unspecified (principal); Z53.21 Procedure and treatment not carried out due to patient leaving prior to being seen by health care provider; Z79.4 Long term (current) use of insulin; E10.9 Type 1 diabetes mellitus without complications; F17.210 Nicotine dependence, cigarettes, uncomplicated
CPT/HCPCS: 36415; 36416; 80053; 82962; 85025; 99284

== ENCOUNTER 2022-12-08 22:29 | Emergency (ER) | payer MEDICARE, MEDICAID, SELFPAY ==
[2022-12-08 22:30] VITALS: BMI 25.0
[2022-12-08 22:33] VITALS: BP 113/70; PULSE 82; RESP 17; TEMP 37.2; O2SAT 97
[2022-12-08 22:35] LABS: Glucose Point of Care 118 mg/dL (70-110)
--- NOTE | 2022-12-08 22:35 | W.ED.NAVMDI ---
HPI - Nausea/Vomiting/Diarrhea General: Chief complaint: Nausea/Vomiting/Diarrhea Stated complaint: N/V Time Seen by Provider: 12/08/22 22:30 Source: patient and EMS Mode of arrival: EMS Limitations: no limitations History of Present Illness: 27-year-old male who is a type I diabetic he has been seen for DKA multiple times he states he had vomiting last 2 days he came in today because he is worried he was going into DKA his blood sugar here is normal he was given Zofran in route he states he feels much improved he denies any pain or fever Associated nausea: Yes Associated symtoms: Reports nausea; Denies chest pain, dysuria or headache(s) Review of Systems Const: Denies: fever(s), chills, body aches or change in appetite Eyes: Denies: blurry vision or eye discomfort ENMT: Denies: throat pain or dental pain Card: Denies: chest pain Resp: Denies: dyspnea GI: Reports: nausea and vomiting : Denies: dysuria Musc: Denies: neck pain or back pain Skin/Breast: Denies: rash Neuro: Denies: headache(s) Psych: Denies: depression [place]/Lymph: Denies: easy bruising All/Imm: Denies: urticaria PFSH ED PFSH: Medical History Abdominal pain Diabetic keto-acidosis DKA (diabetic ketoacidoses) DKA (diabetic ketoacidosis) GERD (gastroesophageal reflux disease) High anion gap metabolic acidosis History of pancreatitis Hyperglycemia Hypoglycemia due to insulin Long-term insulin use Marijuana use Methamphetamine abuse Nausea & vomiting Noncompliance with diabetes treatment Pancreatitis Type 1 diabetes With recurrent admissions for DKA, severe Uncontrolled type 1 diabetes mellitus Surgical History No pertinent past surgical history Family History Other Diabetes Social History Smoking and tobacco status: current every day smoker Alcohol intake: never Lives independently: Yes Household members: family Marital status: Single Current occupational status: disabled Physical Exam Const: COMMON NORMALS: no acute distress, patient oriented x3 and healthy appearing HENMT: COMMON NORMALS: normocephalic and atraumatic HEAD & SCALP: normocephalic and atraumatic Eye: COMMON NORMALS: Equal, round and reactive pupils present and EOMs intact bilaterally PUPIL: Yes Equal, round and reactive pupils present Neck/C-Spine: COMMON NORMALS: full ROM and supple Chest: COMMONS NORMALS: normal inspection of the chest and normal palpation of entire chest wall Resp: COMMON NORMALS: normal respiratory effort, No retractions, No use of accessory muscles and clear to auscultation bilaterally AUSCULTATION: clear to auscultation bilaterally Cardio: COMMON NORMALS: regular rate, regular rhythm and No murmurs present (Cardio) RATE: regular rate RHYTHM: regular rhythm GI: COMMON NORMALS: Normal to inspection, nondistended, normoactive bowel sounds present, Soft to palpation, non-tender and no masses PALPATION: Yes Soft to palpation Extremity: COMMON NORMALS: normal to inspection and full ROM Neuro: COMMON NORMALS: patient oriented x3, moves all extremities and no focal motor deficits Psych: COMMON NORMALS: mental status grossly normal, Normal thought process present and cooperative THOUGHT PROCESS: Normal thought process present Skin: COMMON NORMALS: no rashes or lesions noted and no wounds GENERAL SKIN EXAM: no rashes or lesions noted Course Vital Signs: Vital signs: Vital Signs Temperature 99.0 F 12/08/22 22:33 Pulse Rate 82 12/08/22 22:33 Respiratory Rate 17 12/08/22 22:33 Blood Pressure 113/70 12/08/22 22:33 Pulse Oximetry 97 12/08/22 22:33 Oxygen Delivery Me thod 12/08/22 22:33 MDM - Nausea/Vomiting/Diarrhea Medical Decision Making Patient presents here with vomiting he feels much better after Zofran he was very concerned about being in DKA he has no gap pH is normal he is able to tolerate fluid here he stable for discharge we will prescribe Zofran for home. Lab Data 12/08/22 22:42 12/08/22 22:42 Laboratory Results WBC 5.1 10^3/uL (4.0-10.0) 12/08/22 22:42 RBC 5.26 10^6/uL (4.1-5.3) 12/08/22 22:42 Hgb 16.3 g/dL (11.7-16.6) 12/08/22 22:42 Hct 44.9 % (42.0-52.0) 12/08/22 22:42 MCV 85.4 fl (80-94) 12/08/22 22:42 MCH 31.0 pg (28.0-34.0) 12/08/22 22:42 MCHC 36.3 g/dL (30.0-36.0) H 12/08/22 22:42 RDW 12.0 % (12.1-15.1) L 12/08/22 22:42 Plt Count 220 10^3/cmm (130-400) 12/08/22 22:42 MPV 9.9 fL (7.4-10.4) 12/08/22 22:42 Neut % (Auto) 70.3 % 12/08/22 22:42 Lymph % (Auto) 18.9 % 12/08/22 22:42 [place] % (Auto) 9.8 % 12/08/22 22:42 Eos % (Auto) 0.4 % 12/08/22 22:42 Baso % (Auto) 0.4 % 12/08/22 22:42 Neut # (Auto) 3.60 10^3/uL (1.8-7.7) 12/08/22 22:42 Lymph # (Auto) 1.0 10^3/uL (0.8-4.8) 12/08/22 22:42 [place] # (Auto) 0.5 10^3/uL (0.2-0.9) 12/08/22 22:42 Eos # (Auto) 0.0 10^3/uL (0.0-0.8) 12/08/22 22:42 Baso # (Auto) 0.0 10^3/uL (0.0-0.1) 12/08/22 22:42 Nucleated RBC % (auto) 0 % 12/08/22 22: Nucleated RBCs # 0.0 /100WBC 12/08/22 22:42 Specimen Type Arterial 12/08/22 23:18 Sample Site Brachial, right 12/08/22 23:18 ABG pH 7.45 (7.35-7.45) 12/08/22 23:18 ABG pCO2 36.5 mmHg (35-45) 12/08/22 23:18 ABG pO2 97.6 mmHg (80.0-100.0) 12/08/22 23:18 ABG HCO3 25.1 mmol/L (22-26) 12/08/22 23:18 ABG Base Excess 1.3 mmol/L (-2.0-2.0) 12/08/22 23:18 Hasmukh Test N/a 12/08/22 23:18 Hematocrit 48.7 % (42-52) 12/08/22 23:18 O2 Delivery Device None 12/08/22 23:18 FiO2 21.0 % 12/08/22 23:18 Assembly Stock Supervisor ID John 12/08/22 23:18 Sodium 139 mmol/L (136-145) 12/08/22 22:42 Potassium 3.0 mmol/L (3.5-5.1) L 12/08/22 22:42 Chloride 103 mmol/L (98-107) 12/08/22 22:42 Carbon Dioxide 23 mmol/L (22-29) 12/08/22 22:42 Anion Gap 16.0 (5-19) 12/08/22 22:42 BUN 11 mg/dL (6-20) 12/08/22 22:42 Creatinine 0.5 mg/dL (0.7-1.2) L 12/08/22 22:42 GFR Calculation 202.6 mL/min (90-130) H 12/08/22 22:42 Glucose 116 mg/dL (65-115) H 12/08/22 22:42 POC Glucose 118 mg/dL (70-110) H 12/08/22 22:32 Calculated Osmolality 288 mOsm/kg (285-295) 12/08/22 22:42 Calcium 9.3 mg/dL (8.5-10.5) 12/08/22 22:42 Total Bilirubin 0.6 mg/dL (0.15-1.2) 12/08/22 22:42 AST 16 U/L (0-40) 12/08/22 22:42 ALT 14 U/L (0-41) 12/08/22 22:42 Alkaline Phosphatase 45 U/L (40-130) 12/08/22 22:42 Total Protein 6.7 g/dL (6.6-8.7) 12/08/22 22:42 Albumin 4.3 g/dL (3.5-5.2) 12/08/22 22:42 Globulin 2.4 g/dL (1.3-4.6) 12/08/22 22:42 Lipase 28 U/L (13-60) 12/08/22 22:42 Serum Ketones Positive (Negative) H 12/08/22 22:42 Discharge Plan Discharge Patient Disposition: Home Clinical Impression: Vomiting Condition: Stable Prescriptions: New ondansetron 4 mg tablet,disintegrating 4 mg PO Q6H PRN (Reason: nausea and vomiting) Qty: 14 0RF No Action ondansetron HCl 4 mg tablet 4 mg PO QID PRN (Reason: nausea and vomiting) Qty: 20 0RF (DME) Omnipod 5 G6 Intro Kit (Gen 5) Cartridge See Rx Instructions .ROUTE .MEDSUPPLY Qty: 1 0RF Rx Instructions: As directed (DME) Omnipod 5 G6 Pods (Gen 5) Cartridge See Rx Instructions .ROUTE .MEDSUPPLY Qty: 15 3RF Rx Instructions: change pod every 3 days (DME) Dexcom G6 Grape Crusher Misc See Rx Instructions .ROUTE .MEDSUPPLY Qty: 1 0RF Rx Instructions: takes blood sugar (DME) Dexcom G6 Sensor Device See Rx Instructions .ROUTE .MEDSUPPLY Qty: 9 3RF Rx Instructions: Change every 10 days (DME) Dexcom G6 Transmitter Device See Rx Instructions .ROUTE .MEDSUPPLY Qty: 3 3RF Rx Instructions: change every 90 days (DME) strips See Rx Instructions .Route .MEDSUPPLY Qty: 1 3RF Rx Instructions: Check blood sugars 3 times daily, with meals, #200, 3 refills (DME) lancets Misc See Rx Instructions .Route Qty: 200 3RF Rx Instructions: check BS, TID with meals Lantus Solostar U-100 Insulin 100 unit/mL (3 mL) insulin pen See Rx Instructions .ROUTE .COMPLEX Qty: 90 3RF Dose Instruction: INJECT 40 UNITS UNDER SKIN TWICE DAILY - FOR USE OF BACK UP Rx Instructions: INJECT 30 UNITS UNDER SKIN TWICE DAILY - FOR USE OF BACK UP insulin lispro [Humalog KwikPen Insulin] 100 unit/mL insulin pen See Rx Instructions SUBCUT TID Qty: 27 2RF Rx Instructions: INJECT UNDER SKIN THREE TIMES DAILY BEFORE MEALS, BASED ON SLIDING SCALE PROVIDED- BACKUP IF PUMP NOT WORKING subcutaneously Levemir FlexPen 100 unit/mL (3 mL) insulin pen 30 unit SUBCUT BID 30 Days Qty: 18 2RF Rx Instructions: INJECT 30 UNITS UNDER SKIN TWICE DAILY (DME) blood sugar diagnostic Strip See Rx Instructions .Route Qty: 100 0RF Rx Instructions: As directed (DME) Blood Glucose Test Strip See Rx Instructions .Route Qty: 100 0RF Rx Instructions: As directed (DME) blood-glucose meter [Blood Glucose Monitoring] Kit See Rx Instructions .Route Qty: 1 0RF Rx Instructions: As directed (DME) strips See Rx Instructions .Route .MEDSUPPLY Qty: 200 3RF Rx Instructions: Check blood sugars 3 times daily, before meals (DME) lancets See Rx Instructions .Route .MEDSUPPLY Qty: 200 1RF Rx Instructions: Check blood sugars 3 times daily, before meals multivitamin Tablet 1 tab PO DAILY Discharge Orders: Discharge ED (Routine); Ordered 12/08/22 Ordered By: Charmaine Russell Referrals: Earlene Titus FNP-C [Primary Care Provider] - 1-3 days Discharge Diet: Advance as tolerated Discharge Activity: Resume usual activity Coding Level of Care Code ED Heel Reducer for [facility]
[2022-12-08] MEDS: ondansetron 2 mg/ML SDV 2 mL 4 MG IVP (22:44)
[2022-12-08] MEDS: sodium chloride 0.9% 1,000 ML 999 ML IV (22:48)
[2022-12-08 22:53] LABS: Basophils % 0.4 %; Eosinophils % 0.4 %; Hematocrit 44.9 % (42.0-52.0); Hemoglobin 16.3 g/dL (11.7-16.6); Lymphocytes % 18.9 %; Mean Corpuscular HGB Conc 36.3 g/dL (30.0-36.0); Mean Corpuscular Volume 85.4 fl (80-94); Mean Platelet Volume 9.9 fL (7.4-10.4); Monocytes # 0.5 10^3/uL (0.2-0.9); Monocytes % 9.8 %; Neutrophils % 70.3 %; Nucleated Red Blood Cells % 0 %; Platelet Count 220 10^3/cmm (130-400); Red Blood Count 5.26 10^6/uL (4.1-5.3); White Blood Count 5.1 10^3/uL (4.0-10.0)
[2022-12-08 23:08] LABS: Alanine Aminotransferase 14 U/L (0-41); Albumin Level 4.3 g/dL (3.5-5.2); Alkaline Phosphatase 45 U/L (40-130); Aspartate Amino Transferase 16 U/L (0-40); Blood Urea Nitrogen 11 mg/dL (6-20); Calcium 9.3 mg/dL (8.5-10.5); Carbon Dioxide 23 mmol/L (22-29); Chloride 103 mmol/L (98-107); Globulin 2.4 g/dL (1.3-4.6); Glomerular Filtration Rate 202.6 mL/min (90-130); Glucose 116 mg/dL (65-115); Lipase 28 U/L (13-60); Osmolality Calculated 288 mOsm/kg (285-295); Sodium 139 mmol/L (136-145); Total Bilirubin 0.6 mg/dL (0.15-1.2); Total Protein 6.7 g/dL (6.6-8.7)
[2022-12-08 23:10] LABS: Ketone (Acetest) Serum Positive (Negative)
[2022-12-08 23:30] LABS: ABG PCO2 36.5 mmHg (35-45); ABG PH Result 7.45 (7.35-7.45); Arterial Blood Gas Hematocrit 48.7 % (42-52); Base Excess ABG 1.3 mmol/L (-2.0-2.0); Blood Gas Sample Site Brachial, right; Blood Gas Sample Type Arterial; HCO3 ABG 25.1 mmol/L (22-26); PO2 ABG 97.6 mmHg (80.0-100.0)
[2022-12-09 00:33] VITALS: BP 122/65; PULSE 86; RESP 16; O2SAT 98
== END 2022-12-09 00:35 | disposition home or self-care (01) ==
PROVIDERS: Emergency Provider Emergency Medicine; PCP Nurse Practitioner Family
DX: R11.11 Vomiting without nausea (principal); Z79.4 Long term (current) use of insulin; F17.210 Nicotine dependence, cigarettes, uncomplicated; E10.9 Type 1 diabetes mellitus without complications
CPT/HCPCS: 36416; 36600; 80053; 82009; 82803; 82962; 83690; 85025; 96361; 96374; 99284; J2405; J7030

== ENCOUNTER → 2022-12-30 09:22 | Outpatient (BNVA) | payer MEDICARE, MEDICAID, SELFPAY | PROVIDERS: PCP Nurse Practitioner Family; Visit Provider Internal Medicine | DX: E11.10 Type 2 diabetes mellitus with ketoacidosis without coma (principal); E78.2 Mixed hyperlipidemia; E87.3 Alkalosis | CPT/HCPCS: 80053; 80061; 82043; 83036 ==

== ENCOUNTER 2023-01-05 17:09 | Emergency (ER) | payer MEDICARE, MEDICAID, SELFPAY ==
[2023-01-05 17:10] VITALS: BP 131/106; PULSE 110; RESP 25; TEMP 35.8; O2SAT 100
[2023-01-05 17:38] LABS: Glucose Point of Care 262 mg/dL (70-110)
--- NOTE | 2023-01-05 17:40 | W.ED.ABDPA2 ---
HPI - Abdominal Pain General: Chief Complaint: Abdominal Pain Stated Complaint: ABDOMINAL PAIN/ N/V Time Seen by Provider: 01/05/23 17:31 History of Present Illness: 27-year-old male patient comes in today for complaints of nausea and vomiting and abdominal pain starting at about 230 this afternoon. Patient has a history of diabetic ketoacidosis. Patient does admit to using marijuana prior to incident. Patient denies any alcohol or other drugs. Patient does use nicotine. Patient is a type I diabetic. Patient used 30 units of insulin at 230 this afternoon. Patient has a history of DKA. Associated Symptoms: Reports nausea and vomiting; Denies fever(s) Review of Systems General: Reports: 10 or more systems reviewed and unremarkable except in HPI and below Const: Denies: fever(s) Card: Denies: chest pain Resp: Reports: dyspnea GI: Reports: abdominal pain, nausea and vomiting : Denies: difficulty urinating Musc: Denies: neck pain or back pain Skin/Breast: Reports: rash PFSH ED PFSH: Medical History Abdominal pain Diabetic keto-acidosis DKA (diabetic ketoacidoses) DKA (diabetic ketoacidosis) GERD (gastroesophageal reflux disease) High anion gap metabolic acidosis History of pancreatitis Hyperglycemia Hypoglycemia due to insulin Long-term insulin use Marijuana use Methamphetamine abuse Nausea & vomiting Noncompliance with diabetes treatment Pancreatitis Type 1 diabetes With recurrent admissions for DKA, severe Uncontrolled type 1 diabetes mellitus Surgical History No pertinent past surgical history Family History Other Diabetes Social History Smoking and tobacco status: current every day smoker Alcohol intake: never Substance/Drug Use: former Date of last use: Marijuana abuse Lives independently: Yes Household members: family Marital status: Single Current occupational status: disabled Physical Exam Const: COMMON NORMALS: alert HENMT: COMMON NORMALS: normocephalic HEAD & SCALP: normocephalic Neck/C-Spine: COMMON NORMALS: full ROM Resp: COMMON NORMALS: normal respiratory effort and clear to auscultation bilaterally AUSCULTATION: clear to auscultation bilaterally Cardio: COMMON NORMALS: regular rate and regular rhythm RATE: regular rate RHYTHM: regular rhythm Extremity: COMMON NORMALS: normal to inspection Neuro: SENSORIUM/ORIENTATION: Yes alert Skin: COMMON NORMALS: turgor normal GENERAL SKIN EXAM: turgor normal Course ED course: 1829, reviewed patient with Dr. Russell who recommended infusing 2 L of fluid and rechecking CMP to see if gap had improved and consider discharge. [id number], CMP noted a decrease and gap to 24. Patient feels much better and is comfortable to be discharged home. I did go ahead and order another liter for a total of 3 L and to order a p.o. challenge to see if patient will tolerate oral fluids prior to discharge. Discussed this with Dr. Russell who agreed to plan. Vital Signs: Vital signs: Vital Signs Temperature 96.4 F L 01/05/23 17:10 Pulse Rate 98 01/05/23 23:41 Respiratory Rate 16 01/05/23 23:41 Blood Pressure 97/61 01/05/23 23:41 Pulse Oximetry 99 01/05/23 23:41 Oxygen Delivery Me thod Room Air 01/05/23 22:40 MDM - Abdominal Pain Medical Decision Making Patient comes in today for complaints of nausea and vomiting and abdominal pain starting about 230 this afternoon. Patient does have a history of DKA with type 1 diabetes. On exam abdomen soft nontender. Skin is warm and dry. Patient appears nontoxic. No edema is noted in the extremities. Differential diagnosis includes but not limited to hyperemesis syndrome, DKA, dehydration, gastritis. Patient was given 2 L of IV fluids and we noticed a decrease in his gap. Vital signs improved significantly with respirations dropping from 25-16 and pulse rate dropping into the 90s. Patient nausea and vomiting subsided and he felt well to go home. I reviewed patient with Dr. Russell who agreed with plan and evaluated patient prior to discharge. Patient was written for antiemetic to use as needed return to ED for worsening symptoms or new concerns. Lab Data 01/05/23 17:19 01/05/23 21:11 Labs/Radiology: Laboratory Results WBC 10.2 10^3/uL (4.0-10.0) H 01/05/23 17:19 RBC 5.93 10^6/uL (4.1-5.3) H 01/05/23 17:19 Hgb 18.5 g/dL (11.7-16.6) H 01/05/23 17:19 Hct 51.1 % (42.0-52.0) 01/05/23 17:19 MCV 86.2 fl (80-94) 01/05/23 17:19 MCH 31.2 pg (28.0-34.0) 01/05/23 17:19 MCHC 36.2 g/dL (30.0-36.0) H 01/05/23 17:19 RDW 11.8 % (12.1-15.1) L 01/05/23 17:19 Plt Count 399 10^3/cmm (130-400) 01/05/23 17:19 MPV 9.7 fL (7.4-10.4) 01/05/23 17:19 Neut % (Auto) 81.8 % 01/05/23 17:19 Lymph % (Auto) 11.7 % 01/05/23 17:19 [place] % (Auto) 5.3 % 01/05/23 17:19 Eos % (Auto) 0.1 % 01/05/23 17:19 Baso % (Auto) 0.5 % 01/05/23 17:19 Neut # (Auto) 8.30 10^3/uL (1.8-7.7) H 01/05/23 17:19 Lymph # (Auto) 1.2 10^3/uL (0.8-4.8) 01/05/23 17:19 [place] # (Auto) 0.5 10^3/uL (0.2-0.9) 01/05/23 17:19 Eos # (Auto) 0.0 10^3/uL (0.0-0.8) 01/05/23 17:19 Baso # (Auto) 0.1 10^3/uL (0.0-0.1) 01/05/23 17:19 Nucleated RBC % (auto) 0 % 01/05/23 17:19 Nucleated RBCs # 0.0 /100WBC 01/05/23 17:19 Specimen Type Arterial 01/05/23 17:41 Sample Site Brachial, right 01/05/23 17:41 ABG pH 7.48 (7.35-7.45) H 01/05/23 17:41 ABG pCO2 19.6 mmHg (35-45) L* 01/05/23 17:41 ABG pO2 131.0 mmHg (80.0-100.0) H 01/05/23 17:41 ABG HCO3 14.7 mmol/L (22-26) L 01/05/23 17:41 ABG Base Excess -5.4 mmol/L (-2.0-2.0) L 01/05/23 17:41 Hasmukh Test N/a 01/05/23 17:41 Hematocrit 55.8 % (42-52) H 01/05/23 17:41 O2 Delivery Device Room air 01/05/23 17:41 FiO2 21.0 % 01/05/23 17:41 Western Philosophy Professor ID Amh 01/05/23 17:41 Sodium 135 mmol/L (136-145) L 01/05/23 21:11 Potassium 5.0 mmol/L (3.5-5.1) 01/05/23 21:11 Chloride 97 mmol/L (98-107) L 01/05/23 21:11 Carbon Dioxide 18 mmol/L (22-29) L 01/05/23 21:11 Anion Gap 25.0 (5-19) H 01/05/23 21:11 BUN 19 mg/dL (6-20) 01/05/23 21:11 Creatinine 0.7 mg/dL (0.7-1.2) 01/05/23 21:11 GFR Calculation 137.4 mL/min (90-130) H 01/05/23 21:11 Glucose 286 mg/dL (65-115) H 01/05/23 21:11 POC Glucose 262 mg/dL (70-110) H 01/05/23 17:23 Calculated Osmolality 293 mOsm/kg (285-295) 01/05/23 21:11 Calcium 8.6 mg/dL (8.5-10.5) 01/05/23 21:11 Total Bilirubin 0.6 mg/dL (0.15-1.2) 01/05/23 21:11 AST 16 U/L (0-40) 01/05/23 21:11 ALT 17 U/L (0-41) 01/05/23 21:11 Alkaline Phosphatase 58 U/L (40-130) 01/05/23 21:11 Total Protein 7.0 g/dL (6.6-8.7) D 01/05/23 21:11 Albumin 4.1 g/dL (3.5-5.2) 01/05/23 21:11 Globulin 2.9 g/dL (1.3-4.6) 01/05/23 21:11 Lipase 14 U/L (13-60) 01/05/23 17:19 Serum Ketones Positive (Negative) H 01/05/23 17:19 Discharge Plan Discharge Patient Disposition: Home Clinical Impression: Acute dehydration Nausea & vomiting Qualifiers: Vomiting type: unspecified Qualified Code(s): R11.2 - Nausea with vomiting, unspecified Condition: Stable Prescriptions: Continued ondansetron 4 mg tablet,disintegrating 4 mg PO Q6H PRN (Reason: nausea and vomiting) Qty: 14 0RF No Action ondansetron HCl 4 mg tablet 4 mg PO QID PRN (Reason: nausea and vomiting) Qty: 20 0RF (DME) Omnipod 5 G6 Intro Kit (Gen 5) Cartridge See Rx Instructions .ROUTE .MEDSUPPLY Qty: 1 0RF Rx Instructions: As directed (DME) Omnipod 5 G6 Pods (Gen 5) Cartridge See Rx Instructions .ROUTE .MEDSUPPLY Qty: 15 3RF Rx Instructions: change pod every 3 days (DME) Dexcom G6 Lease Picker Misc See Rx Instructions .ROUTE .MEDSUPPLY Qty: 1 0RF Rx Instructions: takes blood sugar (DME) Dexcom G6 Sensor Device See Rx Instructions .ROUTE .MEDSUPPLY Qty: 9 3RF Rx Instructions: Change every 10 days (DME) Dexcom G6 Transmitter Device See Rx Instructions .ROUTE .MEDSUPPLY Qty: 3 3RF Rx Instructions: change every 90 days (DME) strips See Rx Instructions .Route .MEDSUPPLY Qty: 1 3RF Rx Instructions: Check blood sugars 3 times daily, with meals, #200, 3 refills (DME) lancets Misc See Rx Instructions .Route Qty: 200 3RF Rx Instructions: check BS, TID with meals Lantus Solostar U-100 Insulin 100 unit/mL (3 mL) insulin pen See Rx Instructions .ROUTE .COMPLEX Qty: 90 3RF Dose Instruction: INJECT 40 UNITS UNDER SKIN TWICE DAILY - FOR USE OF BACK UP Rx Instructions: INJECT 30 UNITS UNDER SKIN TWICE DAILY - FOR USE OF BACK UP insulin lispro [Humalog KwikPen Insulin] 100 unit/mL insulin pen See Rx Instructions SUBCUT TID Qty: 27 2RF Rx Instructions: INJECT UNDER SKIN THREE TIMES DAILY BEFORE MEALS, BASED ON SLIDING SCALE PROVIDED- BACKUP IF PUMP NOT WORKING subcutaneously Levemir FlexPen 100 unit/mL (3 mL) insulin pen 30 unit SUBCUT BID 30 Days Qty: 18 2RF Rx Instructions: INJECT 30 UNITS UNDER SKIN TWICE DAILY (DME) blood sugar diagnostic Strip See Rx Instructions .Route Qty: 100 0RF Rx Instructions: As directed (DME) Blood Glucose Test Strip See Rx Instructions .Route Qty: 100 0RF Rx Instructions: As directed (DME) blood-glucose meter [Blood Glucose Monitoring] Kit See Rx Instructions .Route Qty: 1 0RF Rx Instructions: As directed (DME) strips See Rx Instructions .Route .MEDSUPPLY Qty: 200 3RF Rx Instructions: Check blood sugars 3 times daily, before meals (DME) lancets See Rx Instructions .Route .MEDSUPPLY Qty: 200 1RF Rx Instructions: Check blood sugars 3 times daily, before meals multivitamin Tablet 1 tab PO DAILY Discharge Orders: Discharge ED (Routine); Ordered 01/05/23 Ordered By: Dillon Rome Referrals: Earelne Titus FNP-C [Primary Care Provider] - Discharge Diet: Advance as tolerated Discharge Activity: Increase activity as tolerated Patient Instructions: Dehydration (ED) Activity Restrictions/Additional Instructions: Drink plenty of fluids. Continue insulin as directed. Follow-up with primary care as needed. Return to ED for worsening symptoms or new concerns. Coding Level of Care Code ED Medical Education Specialist for Maxx Mohr
[2023-01-05 17:49] LABS: Basophils # 0.1 10^3/uL (0.0-0.1); Basophils % 0.5 %; Eosinophils % 0.1 %; Hematocrit 51.1 % (42.0-52.0); Hemoglobin 18.5 g/dL (11.7-16.6); Lymphocytes # 1.2 10^3/uL (0.8-4.8); Lymphocytes % 11.7 %; Mean Corpuscular HGB Conc 36.2 g/dL (30.0-36.0); Mean Corpuscular Hemoglobin 31.2 pg (28.0-34.0); Mean Corpuscular Volume 86.2 fl (80-94); Mean Platelet Volume 9.7 fL (7.4-10.4); Monocytes # 0.5 10^3/uL (0.2-0.9); Monocytes % 5.3 %; Neutrophils % 81.8 %; Nucleated Red Blood Cells % 0 %; Platelet Count 399 10^3/cmm (130-400); Red Blood Count 5.93 10^6/uL (4.1-5.3); Red Cell Distribution Width 11.8 % (12.1-15.1); White Blood Count 10.2 10^3/uL (4.0-10.0)
[2023-01-05 17:52] LABS: ABG PH Result 7.48 (7.35-7.45); Arterial Blood Gas Hematocrit 55.8 % (42-52); Base Excess ABG -5.4 mmol/L (-2.0-2.0); Blood Gas Operator Identificat AMH; Blood Gas Sample Site Brachial, right; Blood Gas Sample Type Arterial; HCO3 ABG 14.7 mmol/L (22-26); Oxygen Device ROOM AIR
[2023-01-05 18:00] LABS: Ketone (Acetest) Serum Positive (Negative)
[2023-01-05 18:06] LABS: Alanine Aminotransferase 20 U/L (0-41); Albumin Level 5.4 g/dL (3.5-5.2); Alkaline Phosphatase 76 U/L (40-130); Aspartate Amino Transferase 20 U/L (0-40); Blood Urea Nitrogen 22 mg/dL (6-20); Calcium 10.8 mg/dL (8.5-10.5); Carbon Dioxide 19 mmol/L (22-29); Chloride 92 mmol/L (98-107); Globulin 3.7 g/dL (1.3-4.6); Glomerular Filtration Rate 117.8 mL/min (90-130); Glucose 244 mg/dL (65-115); Osmolality Calculated 293 mOsm/kg (285-295); Sodium 136 mmol/L (136-145); Total Bilirubin 0.9 mg/dL (0.15-1.2); Total Protein 9.1 g/dL (6.6-8.7)
[2023-01-05 18:13] LABS: ABG PCO2 19.6 mmHg (35-45)
[2023-01-05] MEDS: sodium chloride 0.9% 1,000 ML 999 ML IV ×3 (18:14→21:39)
[2023-01-05] MEDS: haloperidol inj 5 mg/mL INJ 1 mL 2 MG IVP (18:14)
[2023-01-05 18:15] LABS: Lipase 14 U/L (13-60)
[2023-01-05 18:18] VITALS: BP 148/85; PULSE 106; O2SAT 100
[2023-01-05] MEDS: diphenhydrAMINE 50 mg/mL SDV 1mL 12.5 MG IVP (18:54)
[2023-01-05 18:57] VITALS: BP 143/95; PULSE 85; O2SAT 98
[2023-01-05] MEDS: ondansetron 2 mg/ML SDV 2 mL 4 MG IVP (20:52)
[2023-01-05 21:40] VITALS: BP 98/54; PULSE 116; RESP 16; O2SAT 97
[2023-01-05 21:57] LABS: Alanine Aminotransferase 17 U/L (0-41); Albumin Level 4.1 g/dL (3.5-5.2); Alkaline Phosphatase 58 U/L (40-130); Aspartate Amino Transferase 16 U/L (0-40); Blood Urea Nitrogen 19 mg/dL (6-20); Calcium 8.6 mg/dL (8.5-10.5); Carbon Dioxide 18 mmol/L (22-29); Chloride 97 mmol/L (98-107); Creatinine Clr Calc Pharmacy 142.1555; Globulin 2.9 g/dL (1.3-4.6); Glomerular Filtration Rate 137.4 mL/min (90-130); Glucose 286 mg/dL (65-115); Osmolality Calculated 293 mOsm/kg (285-295); Sodium 135 mmol/L (136-145); Total Bilirubin 0.6 mg/dL (0.15-1.2)
[2023-01-05 22:40] VITALS: BP 95/59; PULSE 101; RESP 18; O2SAT 98
[2023-01-05 23:41] VITALS: BP 97/61; PULSE 98; RESP 16; O2SAT 99
[2023-01-06 01:01] LABS: Glucose Point of Care 407 mg/dL (70-110)
[2023-01-06 03:18] LABS: Glucose Point of Care 253 mg/dL (70-110)
== END 2023-01-05 23:51 | disposition home or self-care (01) ==
PROVIDERS: Emergency Provider Nurse Practitioner Family; PCP Nurse Practitioner Family
DX: R11.2 Nausea with vomiting, unspecified (principal); E86.0 Dehydration; E10.9 Type 1 diabetes mellitus without complications; F17.210 Nicotine dependence, cigarettes, uncomplicated; Z79.4 Long term (current) use of insulin
CPT/HCPCS: 36415; 36416; 36600; 80053; 82009; 82803; 82962; 83690; 85025; 96361; 96374; 96375; 99284; J1200; J1630; J2405; J7030

== ENCOUNTER 2023-01-06 00:15 | Inpatient (IN) | payer MEDICARE, MEDICAID, SELFPAY ==
[2023-01-06 00:25] VITALS: BP 153/77; PULSE 101; RESP 20; TEMP 36.3; O2SAT 99; BMI 23.3
--- NOTE | 2023-01-06 00:35 | ED_ITS ---
Documented by User: AVEL Rubin 01/06/23 02:07 HPI - Nausea/Vomiting/Diarrhea General: Chief complaint: Nausea/Vomiting/Diarrhea Stated complaint: sick Time Seen by Provider: 01/06/23 00:33 History of Present Illness: 27-year-old male patient was discharged to home, but could not get a ride home and while sitting in the waiting room patient started feeling sick to his stomach again and reported difficulty breathing. Patient has been seen for dehydration and elevated blood glucose with suspicion for diabetic ketoacidosis. Associated nausea: Yes Associated symtoms: Reports nausea Review of Systems Const: Denies: fever(s) Resp: Reports: dyspnea GI: Reports: nausea and vomiting : Reports: difficulty urinating [facility] ED PFSH: Medical History Abdominal pain Diabetic keto-acidosis DKA (diabetic ketoacidoses) DKA (diabetic ketoacidosis) GERD (gastroesophageal reflux disease) High anion gap metabolic acidosis History of pancreatitis Hyperglycemia Hypoglycemia due to insulin Long-term insulin use Marijuana use Methamphetamine abuse Nausea & vomiting Noncompliance with diabetes treatment Pancreatitis Type 1 diabetes With recurrent admissions for DKA, severe Uncontrolled type 1 diabetes mellitus Surgical History No pertinent past surgical history Family History Other Diabetes Social History Smoking and tobacco status: current every day smoker Alcohol intake: never Substance/Drug Use: former Date of last use: Marijuana abuse Lives independently: Yes Household members: family Marital status: Single Current occupational status: disabled Physical Exam Const: COMMON NORMALS: alert HENMT: COMMON NORMALS: normocephalic HEAD & SCALP: normocephalic Neck/C-Spine: COMMON NORMALS: full ROM Chest: COMMONS NORMALS: normal inspection of the chest Resp: COMMON NORMALS: normal respiratory effort and clear to auscultation bilaterally AUSCULTATION: clear to auscultation bilaterally Cardio: COMMON NORMALS: regular rate and regular rhythm RATE: regular rate RHYTHM: regular rhythm GI: COMMON NORMALS: Soft to palpation AUSCULTATION: Yes normoactive bowel sounds PALPATION: Yes Soft to palpation Extremity: COMMON NORMALS: no pedal edema Neuro: SENSORIUM/ORIENTATION: Yes alert Skin: COMMON NORMALS: turgor normal GENERAL SKIN EXAM: turgor normal Course ED course: 137, reviewed ABG with Dr. Russell, he recommended going ahead and start insulin drip and getting patient admitted for further correction of metabolic acidosis and respiratory alkalosis. Vital Signs: Vital signs: Vital Signs Temperature 97.4 F L 01/06/23 00:25 Pulse Rate 91 01/06/23 02:10 Respiratory Rate 20 H 01/06/23 02:10 Blood Pressure 164/92 01/06/23 02:10 Pulse Oximetry 97 01/06/23 02:10 Oxygen Delivery Me thod Room Air 01/06/23 02:10 MDM - Nausea/Vomiting/Diarrhea Medical Decision Making Patient came in today for with complaints of nausea and vomiting since about 230 this afternoon. Patient was initially treated in the ER with IV fluids in order to close his anion gap we did get it to close and patient felt well and believed he could go home and continue to manage his symptoms and blood sugar. Patient was unable to get a ride home and check back into the ER. Patient 2 episodes of emesis while waiting in the room. We rechecked patient's ABG and noted a pH of 7.4, CO2 of 14.9, PO2 of 120, and a bicarb of 9. Patient appears to be in metabolic acidosis with respiratory alkalosis for compensation. Discussed this with Dr. Russell who recommended go ahead and starting the insulin drip continuing IV fluids and have patient admitted. Patient was agreeable to plan. Dr. Mckeon agreed to plan for patient to be admitted to ICU. Lab Data 01/06/23 01:27 01/06/23 01:27 Laboratory Results WBC 8.3 10^3/uL (4.0-10.0) 01/06/23 01:27 RBC 5.05 10^6/uL (4.1-5.3) 01/06/23 01:27 Hgb 15.4 g/dL (11.7-16.6) 01/06/23 01:27 Hct 45.0 % (42.0-52.0) 01/06/23 01: MCV 89.1 fl (80-94) 01/06/23 01:27 MCH 30.5 pg (28.0-34.0) 01/06/23 01: MCHC 34.2 g/dL (30.0-36.0) D 01/06/23 01: RDW 12.0 % (12.1-15.1) L 01/06/23 01:27 Plt Count 342 10^3/cmm (130-400) 01/06/23 01:27 MPV 9.7 fL (7.4-10.4) 01/06/23 01:27 Neut % (Auto) 83.4 % 01/06/23 01: Lymph % (Auto) 12.7 % 01/06/23 01: [place] % (Auto) 3.0 % 01/06/23 01: Eos % (Auto) 0.1 % 01/06/23 01: Baso % (Auto) 0.2 % 01/06/23 01: Neut # (Auto) 6.94 10^3/uL (1.8-7.7) 01/06/23 01: Lymph # (Auto) 1.1 10^3/uL (0.8-4.8) 01/06/23 01:27 [place] # (Auto) 0.3 10^3/uL (0.2-0.9) 01/06/23 01: Eos # (Auto) 0.0 10^3/uL (0.0-0.8) 01/06/23 01: Baso # (Auto) 0.0 10^3/uL (0.0-0.1) 01/06/23 01: Nucleated RBC % (auto) 0 % 01/06/23 01: Nucleated RBCs # 0.0 /100WBC 01/06/23 01:27 Specimen Type Arterial 01/06/23 01:10 Sample Site Radial, left 01/06/23 01:10 ABG pH 7.40 (7.35-7.45) 01/06/23 01:10 ABG pCO2 14.9 mmHg (35-45) L* 01/06/23 01:10 ABG pO2 120.0 mmHg (80.0-100.0) H 01/06/23 01:10 ABG HCO3 9.2 mmol/L (22-26) L 01/06/23 01:10 ABG Base Excess -12.1 mmol/L (-2.0-2.0) L 01/06/23 01:10 Hasmukh Test Pos 01/06/23 01:10 Hematocrit 48.8 % (42-52) 01/06/23 01:10 O2 Delivery Device Room air 01/06/23 01:10 Produce Specialist ID [email or web address] 01/06/23 01:10 Sodium 132 mmol/L (136-145) L 01/06/23 01:27 Potassium 4.8 mmol/L (3.5-5.1) 01/06/23 01:27 Chloride 92 mmol/L (98-107) L 01/06/23 01:27 Carbon Dioxide 9 mmol/L (22-29) L 01/06/23 01:27 Anion Gap 35.8 (5-19) H 01/06/23 01:27 BUN 16 mg/dL (6-20) 01/06/23 01:27 Creatinine 0.7 mg/dL (0.7-1.2) 01/06/23 01:27 GFR Calculation 137.4 mL/min (90-130) H 01/06/23 01:27 Glucose 372 mg/dL (65-115) H 01/06/23 01:27 Calculated Osmolality 290 mOsm/kg (285-295) 01/06/23 01:27 Calcium 9.2 mg/dL (8.5-10.5) 01/06/23 01:27 Total Bilirubin 0.7 mg/dL (0.15-1.2) 01/06/23 01:27 AST 19 U/L (0-40) 01/06/23 01:27 ALT 17 U/L (0-41) 01/06/23 01:27 Alkaline Phosphatase 64 U/L (40-130) 01/06/23 01:27 Total Protein 6.9 g/dL (6.6-8.7) 01/06/23 01:27 Albumin 4.5 g/dL (3.5-5.2) 01/06/23 01:27 Globulin 2.4 g/dL (1.3-4.6) 01/06/23 01:27 Urine Color Yellow (Yellow) 01/06/23 01:23 Urine Appearance Clear (CLEAR) 01/06/23 01:23 Urine pH 5 (5-7) 01/06/23 01:23 Ur Specific [place] 1.025 (1.005-1.030) 01/06/23 01:23 Urine Protein Trace (Negative) 01/06/23 01: Urine Glucose (UA) 4+ (Normal) H 01/06/23 01:23 Urine Ketones 3+ (Negative) H 01/06/23 01:23 Urine Blood Neg (Negative) 01/06/23 01:23 Urine Nitrate Negative (Negative) 01/06/23 01: Urine Bilirubin Neg (Negative) 01/06/23 01: Urine Urobilinogen Neg mg/dL (Negative) 01/06/23 01:23 Ur Leukocyte Esterase Negative (Negative) 01/06/23 01: Urine RBC 0-4 /hpf (0-2) H 01/06/23 01: Urine WBC 0-4 /hpf (0-5) H 01/06/23 01:23 Ur Squamous Epith Cells 0-4 /hpf (0-5) H 01/06/23 01: Amorphous Sediment Not Reportable 01/06/23 01:23 Urine Bacteria None /hpf (NONE) 01/06/23 01:23 Discharge Plan Discharge Patient Disposition: Admitted As Inpatient Clinical Impression: Metabolic acidosis with respiratory alkalosis DKA (diabetic ketoacidosis) Qualifiers: Diabetes mellitus type: type 1 Diabetes mellitus complication detail: without coma Qualified Code(s): E10.10 - Type 1 diabetes mellitus with ketoacidosis without coma Condition: Stable Coding Level of Care Code ED Heating Operators Engineer for Chg Fwd Documented by User: Charmaine Russell MD 01/06/23 02:13 HPI - Nausea/Vomiting/Diarrhea General: Chief complaint: Nausea/Vomiting/Diarrhea Stated complaint: sick Time Seen by Provider: 01/06/23 00:33 PFSH ED PFSH: Medical History Abdominal pain Diabetic keto-acidosis DKA (diabetic ketoacidoses) DKA (diabetic ketoacidosis) GERD (gastroesophageal reflux disease) High anion gap metabolic acidosis History of pancreatitis Hyperglycemia Hypoglycemia due to insulin Long-term insulin use Marijuana use Methamphetamine abuse Nausea & vomiting Noncompliance with diabetes treatment Pancreatitis Type 1 diabetes With recurrent admissions for DKA, severe Uncontrolled type 1 diabetes mellitus Surgical History No pertinent past surgical history Family History Other Diabetes Social History Smoking and tobacco status: current every day smoker Alcohol intake: never Substance/Drug Use: former Date of last use: Marijuana abuse Lives independently: Yes Household members: family Marital status: Single Current occupational status: disabled Course Vital Signs: Vital signs: Vital Signs Temperature 97.4 F L 01/06/23 00:25 Pulse Rate 91 01/06/23 02:10 Respiratory Rate 20 H 01/06/23 02:10 Blood Pressure 164/92 01/06/23 02:10 Pulse Oximetry 97 01/06/23 02:10 Oxygen Delivery Me thod Room Air 01/06/23 02:10 MDM - Nausea/Vomiting/Diarrhea Medical Decision Making Patient came in today for with complaints of nausea and vomiting since about 230 this afternoon. Patient was initially treated in the ER with IV fluids in order to close his anion gap we did get it to close and patient felt well and believed he could go home and continue to manage his symptoms and blood sugar. Patient was unable to get a ride home and check back into the ER. Patient 2 episodes of emesis while waiting in the room. We rechecked patient's ABG and noted a pH of 7.4, CO2 of 14.9, PO2 of 120, and a bicarb of 9. Patient appears to be in metabolic acidosis with respiratory alkalosis for compensation. Discussed this with Dr. Russell who recommended go ahead and starting the insulin drip continuing IV fluids and have patient admitted. Patient was agreeable to plan. Dr. Deon larkin agreed to plan for patient to be admitted to ICU. Patient presented here with vomiting he was seen earlier today he felt improved after fluids and he requested to be discharged he had vomited more after discharge she is currently in DKA at this time with anion gap patient started insulin drip IV fluids and will admit to the ICU Lab Data 01/06/23 01:27 01/06/23 01:27 Laboratory Results WBC 8.3 10^3/uL (4.0-10.0) 01/06/23 01:27 RBC 5.05 10^6/uL (4.1-5.3) 01/06/23 01:27 Hgb 15.4 g/dL (11.7-16.6) 01/06/23 01:27 Hct 45.0 % (42.0-52.0) 01/06/23 01: MCV 89.1 fl (80-94) 01/06/23 01:27 MCH 30.5 pg (28.0-34.0) 01/06/23 01: MCHC 34.2 g/dL (30.0-36.0) D 01/06/23 01: RDW 12.0 % (12.1-15.1) L 01/06/23 01:27 Plt Count 342 10^3/cmm (130-400) 01/06/23 01:27 MPV 9.7 fL (7.4-10.4) 01/06/23 01:27 Neut % (Auto) 83.4 % 01/06/23 01:27 Lymph % (Auto) 12.7 % 01/06/23 01:27 [place] % (Auto) 3.0 % 01/06/23 01:27 Eos % (Auto) 0.1 % 01/06/23 01:27 Baso % (Auto) 0.2 % 01/06/23 01:27 Neut # (Auto) 6.94 10^3/uL (1.8-7.7) 01/06/23 01:27 Lymph # (Auto) 1.1 10^3/uL (0.8-4.8) 01/06/23 01:27 [place] # (Auto) 0.3 10^3/uL (0.2-0.9) 01/06/23 01:27 Eos # (Auto) 0.0 10^3/uL (0.0-0.8) 01/06/23 01:27 Baso # (Auto) 0.0 10^3/uL (0.0-0.1) 01/06/23 01:27 Nucleated RBC % (auto) 0 % 01/06/23 01:27 Nucleated RBCs # 0.0 /100WBC 01/06/23 01:27 Specimen Type Arterial 01/06/23 01:10 Sample Site Radial, left 01/06/23 01:10 ABG pH 7.40 (7.35-7.45) 01/06/23 01:10 ABG pCO2 14.9 mmHg (35-45) L* 01/06/23 01:10 ABG pO2 120.0 mmHg (80.0-100.0) H 01/06/23 01:10 ABG HCO3 9.2 mmol/L (22-26) L 01/06/23 01:10 ABG Base Excess -12.1 mmol/L (-2.0-2.0) L 01/06/23 01:10 Hasmukh Test Pos 01/06/23 01:10 Hematocrit 48.8 % (42-52) 01/06/23 01:10 O2 Delivery Device Room air 01/06/23 01:10 Produce Specialist ID [email or web address] 01/06/23 01:10 Sodium 132 mmol/L (136-145) L 01/06/23 01:27 Potassium 4.8 mmol/L (3.5-5.1) 01/06/23 01:27 Chloride 92 mmol/L (98-107) L 01/06/23 01:27 Carbon Dioxide 9 mmol/L (22-29) L 01/06/23 01:27 Anion Gap 35.8 (5-19) H 01/06/23 01:27 BUN 16 mg/dL (6-20) 01/06/23 01:27 Creatinine 0.7 mg/dL (0.7-1.2) 01/06/23 01:27 GFR Calculation 137.4 mL/min (90-130) H 01/06/23 01:27 Glucose 372 mg/dL (65-115) H 01/06/23 01:27 Calculated Osmolality 290 mOsm/kg (285-295) 01/06/23 01:27 Calcium 9.2 mg/dL (8.5-10.5) 01/06/23 01:27 Total Bilirubin 0.7 mg/dL (0.15-1.2) 01/06/23 01:27 AST 19 U/L (0-40) 01/06/23 01: ALT 17 U/L (0-41) 01/06/23 01:27 Alkaline Phosphatase 64 U/L (40-130) 01/06/23 01:27 Total Protein 6.9 g/dL (6.6-8.7) 01/06/23 01: Albumin 4.5 g/dL (3.5-5.2) 01/06/23 01: Globulin 2.4 g/dL (1.3-4.6) 01/06/23 01:27 Urine Color Yellow (Yellow) 01/06/23 01: Urine Appearance Clear (CLEAR) 01/06/23 01: Urine pH 5 (5-7) 01/06/23: Ur Specific [place] 1.025 (1.005-1.030) 01/06/23 01: Urine Protein Trace (Negative) 01/06/23: Urine Glucose (UA) 4+ (Normal) H 01/06/23 01: Urine Ketones 3+ (Negative) H 01/06/23 01:23 Urine Blood Neg (Negative) 01/06/23 01: Urine Nitrate Negative (Negative) 01/06/23 01: Urine Bilirubin Neg (Negative) 01/06/23 01: Urine Urobilinogen Neg mg/dL (Negative) 01/06/23 01: Ur Leukocyte Esterase Negative (Negative) 01/06/23 01:23 Urine RBC 0-4 /hpf (0-2) H 01/06/23 01:23 Urine WBC 0-4 /hpf (0-5) H 01/06/23 01:23 Ur Squamous Epith Cells 0-4 /hpf (0-5) H 01/06/23 01: Amorphous Sediment Not Reportable 01/06/23 01: Urine Bacteria None /hpf (NONE) 01/06/23 01:23 Critical Care Time Critical Care Time: Critical Care Time: Yes Total Critical Care Time: 40 Attestation: The high probability of a clinically significant, sudden or life threatening deterioration of the patient's endocrine system(s) required my full and direct attention, intervention and personal management. The critical care time is as shown. This time is in addition to time spent performing any reported procedures but includes the following: [x] Data and vital sign review and interpretation [x] Patient assessment, examination and intervention [x] Documentation [x] Medication orders and management Discharge Plan Discharge Patient Disposition: Admitted As Inpatient Clinical Impression: Metabolic acidosis with respiratory alkalosis DKA (diabetic ketoacidosis) Qualifiers: Diabetes mellitus type: type 1 Diabetes mellitus complication detail: without coma Qualified Code(s): E10.10 - Type 1 diabetes mellitus with ketoacidosis without coma Condition: Stable Coding Level of Care Code ED Heating Operators Engineer for Maxx Mohr
[2023-01-06] MEDS: diphenhydrAMINE 50 mg/mL SDV 1mL 25 MG IVP (01:19)
[2023-01-06] MEDS: sodium chloride 0.9% 1,000 ML 999 ML IV (01:20)
[2023-01-06 01:21] LABS: Arterial Blood Gas Hematocrit 48.8 % (42-52); Base Excess ABG -12.1 mmol/L (-2.0-2.0); Blood Gas Allen Test Pos; Blood Gas Sample Site Radial, left; Blood Gas Sample Type Arterial; HCO3 ABG 9.2 mmol/L (22-26); Oxygen Device ROOM AIR
[2023-01-06 01:22] LABS: ABG PCO2 14.9 mmHg (35-45)
[2023-01-06 01:29] VITALS: BP 130/70; PULSE 78; RESP 16; O2SAT 99
[2023-01-06] MEDS: metoclopramide 5 mg/mL SDV 2 mL 10 MG IVP (01:29)
[2023-01-06 01:30] LABS: Basophils % 0.2 %; Eosinophils % 0.1 %; Hemoglobin 15.4 g/dL (11.7-16.6); Lymphocytes # 1.1 10^3/uL (0.8-4.8); Lymphocytes % 12.7 %; Mean Corpuscular HGB Conc 34.2 g/dL (30.0-36.0); Mean Corpuscular Hemoglobin 30.5 pg (28.0-34.0); Mean Corpuscular Volume 89.1 fl (80-94); Mean Platelet Volume 9.7 fL (7.4-10.4); Monocytes # 0.3 10^3/uL (0.2-0.9); Neutrophils # 6.94 10^3/uL (1.8-7.7); Neutrophils % 83.4 %; Nucleated Red Blood Cells % 0 %; Platelet Count 342 10^3/cmm (130-400); Red Blood Count 5.05 10^6/uL (4.1-5.3); White Blood Count 8.3 10^3/uL (4.0-10.0)
[2023-01-06 01:36] LABS: Urine Appearance Clear (CLEAR); Urine Color Yellow (Yellow)
[2023-01-06 01:37] LABS: Add Urine Culture? No; Add Urine Microscopic? YES; Bilirubin Urine Neg (Negative); Blood Urine Neg (Negative); Glucose Urine UA 4+ (Normal); Ketones Urine 3+ (Negative); Leukocyte Esterase Urine Negative (Negative); Nitrate Urine Negative (Negative); Protein Urine Trace (Negative); RBC Urine 0-4 /hpf (0-2); Specific Gravity, Urine 1.025 (1.005-1.030); Squamous Epithelial Cell Urine 0-4 /hpf (0-5); Urobilinogen Urine Neg (Negative); WBC Urine 0-4 /hpf (0-5); pH Urine 5 (5-7)
[2023-01-06 01:56] LABS: Alanine Aminotransferase 17 U/L (0-41); Albumin Level 4.5 g/dL (3.5-5.2); Alkaline Phosphatase 64 U/L (40-130); Anion Gap 35.8 (5-19); Aspartate Amino Transferase 19 U/L (0-40); Blood Urea Nitrogen 16 mg/dL (6-20); Calcium 9.2 mg/dL (8.5-10.5); Chloride 92 mmol/L (98-107); Creatinine Clr Calc Pharmacy 142.1555; Globulin 2.4 g/dL (1.3-4.6); Glomerular Filtration Rate 137.4 mL/min (90-130); Glucose 372 mg/dL (65-115); Osmolality Calculated 290 mOsm/kg (285-295); Potassium 4.8 mmol/L (3.5-5.1); Sodium 132 mmol/L (136-145); Total Bilirubin 0.7 mg/dL (0.15-1.2); Total Protein 6.9 g/dL (6.6-8.7)
[2023-01-06 02:00] LABS: Carbon Dioxide 9 mmol/L (22-29)
[2023-01-06] MEDS: insulin regular-human 250 UNIT in sodium chloride 0.9% 250 ML 10.41 UNIT IV (02:05)
[2023-01-06 02:10] VITALS: BP 164/92; PULSE 91; RESP 20; O2SAT 97
[2023-01-06 02:30] LABS: Triglycerides 142 mg/dL (0-150)
--- NOTE | 2023-01-06 02:30 | PM.HP ---
Providers/Chief Complaint Primary Care Provider: MARGE Castellano Chief Complaint: sick History of Present Illness Salvatore Ott is a 27 year old male with a past medical history of type 1 diabetes mellitus, history of recurrent DKA, history of marijuana use, who presents [facility] due to nausea, vomiting, this started yesterday afternoon, does report marijuana use, no fevers, chills, no abdominal pain, he was actually in the emergency room with elevated blood sugar, nausea, vomiting, received insulin, nausea control and discharged to home, however he stayed in the waiting room, awaiting his ride, continued to have nausea, check back in, repeat blood work showed elevated blood sugar, elevated anion gap, so started on insulin drip, continues to feel nauseous during my examination. No fevers, chills, shortness of breath, no chest pain, no diarrhea, no dysuria, hematuria Review of Systems Const: Denies: fever(s) Card: Denies: chest pain Resp: Denies: dyspnea GI: Reports: nausea and vomiting; Denies: abdominal pain : Denies: flank pain Medications/Allergies Home Medications Medication Instructions Recorded Confirmed Last Taken Type blood sugar diagnostic #100 ea 03/20/21 10/18/22 Unknown Rx blood sugar diagnostic (Blood #100 ea 03/20/21 10/18/22 Unknown Rx Glucose Test strips) blood-glucose meter (Blood Glucose #1 ea 03/20/21 10/18/22 Unknown Rx Monitoring kit) lancets #200 ea 05/17/21 10/18/22 Unknown Rx strips #200 ea 05/17/21 10/18/22 Unknown Rx lancets #200 ea 06/18/21 10/18/22 Unknown Rx strips #1 ea 06/18/21 10/18/22 Unknown Rx multivitamin 1 tab PO DAILY 11/23/21 10/18/22 05/29/22 History insulin glargine 100 unit/mL (3 See Rx Instructions .Route 09/16/22 10/18/22 Unknown Rx mL) subcutaneous pen (Lantus .COMPLEX #90 mL Solostar U-100 Insulin) blood-glucose meter,continuous #1 ea 10/18/22 10/18/22 Unknown Rx (Dexcom G6 Retail Helper) blood-glucose sensor (Dexcom G6 #9 10/18/22 10/18/22 Unknown Rx Sensor device) blood-glucose transmitter (Dexcom #3 ea 10/18/22 10/18/22 Unknown Rx G6 Transmitter device) insulin pump cart,automated,BT #15 ea 10/18/22 10/18/22 Unknown Rx (Omnipod 5 G6 Pods (Gen 5) subcutaneous cartridge) insulin pump cartridge,automated #1 ea 10/18/22 10/18/22 Unknown Rx dose,BT with controller subcutaneous (Omnipod 5 G6 Intro Kit (Gen 5) subcutaneous cartridge with controller) ondansetron HCl 4 mg tablet 4 mg PO QID PRN nausea and 10/18/22 10/18/22 Unknown Rx vomiting #20 tabs insulin lispro 100 unit/mL See Rx Instructions SUBCUT TID #27 11/17/22 Unknown Rx subcutaneous pen (Humalog KwikPen mL (U-100) Insulin) insulin detemir U-100 100 unit/mL 30 unit (0.3 mL) SUBCUT BID 30 12/03/22 Unknown Rx (3 mL) subcutaneous pen (Levemir days #18 mL FlexPen) ondansetron 4 mg disintegrating 4 mg PO Q6H PRN nausea and 01/05/23 Unknown Rx tablet vomiting #14 tabs Allergies Allergy/AdvReac Type Severity Reaction Status Date / Time promethazine [From Phenergan] Allergy Unknown Verified 10/18/22 14:07 zofran Allergy Intermediate swelling Uncoded 10/18/22 14:07 PFSH Acute PFSH: Medical History Abdominal pain Diabetic keto-acidosis DKA (diabetic ketoacidoses) DKA (diabetic ketoacidosis) GERD (gastroesophageal reflux disease) High anion gap metabolic acidosis History of pancreatitis Hyperglycemia Hypoglycemia due to insulin Long-term insulin use Marijuana use Methamphetamine abuse Nausea & vomiting Noncompliance with diabetes treatment Pancreatitis Type 1 diabetes With recurrent admissions for DKA, severe Uncontrolled type 1 diabetes mellitus Surgical History No pertinent past surgical history Family History Other Diabetes Social History Smoking and tobacco status: current every day smoker Alcohol intake: never Substance/Drug Use: former Date of last use: Marijuana abuse Lives independently: Yes Household members: family Marital status: Single Current occupational status: disabled Vitals/I&O/Wt Last Vital Signs Temp 97.4 F L 01/06/23 00:25 Pulse 91 01/06/23 02:10 Resp 20 H 01/06/23 02:10 BP 164/92 01/06/23 02:10 Pulse Ox 97 01/06/23 02:10 O2 Del Method Room Air 01/06/23 02:10 Weight last 48 hrs Weight 63.503 kg Physical Exam Const: COMMON NORMALS: no acute distress and patient oriented x3 HENMT: COMMON NORMALS: normocephalic HEAD & SCALP: normocephalic Eye: COMMON NORMALS: Equal, round and reactive pupils present Neck/C-Spine: COMMON NORMALS: no JVD Lymph: LYMPHATIC: no lymphadenopathy noted Resp: COMMON NORMALS: normal respiratory effort, No retractions, No use of accessory muscles and clear to auscultation bilaterally AUSCULTATION: clear to auscultation bilaterally Cardio: COMMON NORMALS: no JVD, regular rate, regular rhythm, S1 normal heart sound present and S2 normal heart sound present RATE: regular rate RHYTHM: regular rhythm HEART SOUNDS: S1 normal heart sound present and S2 normal heart sound present GI: COMMON NORMALS: Normal to inspection, nondistended, normoactive bowel sounds present, Soft to palpation and non-tender PALPATION: Yes Soft to palpation Extremity: COMMON NORMALS: no calf tenderness and no pedal edema Neuro: COMMON NORMALS: patient oriented x3, CN's II-XII intact bilaterally, moves all extremities and no focal motor deficits Psych: COMMON NORMALS: mental status grossly normal Data 01/06/23 01:27 01/06/23 01:27 A&P Assessment and plan (1) DKA (diabetic ketoacidosis): Qualifiers: Diabetes mellitus complication detail: without coma Diabetes mellitus type: type 1 Qualified Code(s): E10.10 - Type 1 diabetes mellitus with ketoacidosis without coma (2) Nausea & vomiting: Qualifiers: Vomiting type: unspecified Qualified Code(s): R11.2 - Nausea with vomiting, unspecified (3) Acute dehydration: Plan Diabetic ketoacidosis, with intractable nausea, vomiting -Admit to ICU -Insulin drip -Accu-Cheks q. 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
[2023-01-06 03:31] LABS: Anion Gap 32.2 (5-19); Blood Urea Nitrogen 14 mg/dL (6-20); Calcium 8.7 mg/dL (8.5-10.5); Carbon Dioxide 10 mmol/L (22-29); Chloride 96 mmol/L (98-107); Creatinine Clr Calc Pharmacy 142.1555; Glomerular Filtration Rate 137.4 mL/min (90-130); Glucose 334 mg/dL (65-115); Lactic Sepsis W/Reflex 1.4 mmol/L (0.5-2.2); Magnesium 1.6 mg/dL (1.7-2.3); Osmolality Calculated 292 mOsm/kg (285-295); Phosphorus 3.1 mg/dL (2.5-4.5); Potassium 4.2 mmol/L (3.5-5.1); Sodium 134 mmol/L (136-145)
[2023-01-06] MEDS: pantoprazole 40 mg SDV IVP (03:48)
[2023-01-06] MEDS: sodium chloride 0.9% 1,000 ML 125 ML IV (03:49)
[2023-01-06 03:50] VITALS: BP 105/60; PULSE 91; RESP 16; O2SAT 95
[2023-01-06 03:55] LABS: Estmated Average Glucose 283; Hemoglobin A1C 11.5 % (4.0-6.0)
[2023-01-06 04:04] LABS: Chol HDL Ratio 4.22 mg/dL (1.0-5.00); Cholesterol 190 mg/dL (0-200); HDL Cholesterol 45 mg/dL (60-100); LDL Cholesterol Calculated 117 mg/dL (50-129); Thyroid Stimulating Hormone 2.74 uIU/mL (0.27-4.20); Triglycerides 142 mg/dL (0-150)
[2023-01-06 04:29] LABS: Glucose Point of Care 176 mg/dL (70-110)
[2023-01-06] MEDS: D5-NS 0.45% + KCL 20 mEq 20 MEQ/1,000 ML BAG 125 MEQ IV (05:10)
[2023-01-06 05:11] VITALS: BP 135/73; PULSE 92; RESP 16; O2SAT 95
[2023-01-06 06:15] LABS: Glucose Point of Care 145 mg/dL (70-110)
[2023-01-06 07:18] LABS: Glucose Point of Care 109 mg/dL (70-110)
[2023-01-06 08:03] VITALS: BP 133/63; PULSE 128; RESP 16; O2SAT 97
[2023-01-06 08:08] LABS: Glucose Point of Care 107 mg/dL (70-110)
--- NOTE | 2023-01-06 09:20 | PM.MISC ---
Miscellaneous Note Purpose of Documentation: Patient left AMA from the emergency room without being evaluated by me this morning. Consider the H&P also to be the discharge summary. Patient left AMA
== END 2023-01-06 08:16 | disposition left against medical advice (07) | DRG 639 ==
LOC: ER 05:51 → ER IP 06:41
PROVIDERS: Admitting Provider Family Medicine; Emergency Provider Nurse Practitioner Family; PCP Nurse Practitioner Family; Visit Provider Student in an Organized Health Care Education/Training Program
DX: E10.10 Type 1 diabetes mellitus with ketoacidosis without coma (principal); Z53.21 Procedure and treatment not carried out due to patient leaving prior to being seen by health care provider; F15.10 Other stimulant abuse, uncomplicated; F12.10 Cannabis abuse, uncomplicated; K21.9 Gastro-esophageal reflux disease without esophagitis; F17.200 Nicotine dependence, unspecified, uncomplicated; E86.0 Dehydration
CPT/HCPCS: 36415; 36416; 36600; 80048; 80053; 80061; 81001; 82009; 82803; 82962; 83036; 83605; 83690; 83735; 84100; 84443; 84478; 85025; 96361; 96374; 96375; 99284; C9113; J1200; J1630; J1815; J2405; J2765; J7030; J7050

== ENCOUNTER → 2023-01-14 09:37 | Outpatient (BNVA) | payer MEDICARE, MEDICAID, SELFPAY | PROVIDERS: PCP Nurse Practitioner Family; Visit Provider Nurse Practitioner Family | DX: H60.02 Abscess of left external ear (principal) | CPT/HCPCS: 87070; 87077; 87184 ==

== ENCOUNTER → 2023-04-18 12:13 | Outpatient (BNVA) | payer MEDICARE, MEDICAID, SELFPAY | PROVIDERS: PCP Nurse Practitioner Family; Visit Provider Nurse Practitioner Family | DX: L02.419 Cutaneous abscess of limb, unspecified (principal) | CPT/HCPCS: 87070; 87077; 87184 ==

== ENCOUNTER 2023-05-13 17:41 | Emergency (ER) | payer MEDICARE, MEDICAID, SELFPAY ==
[2023-05-13 17:42] VITALS: BP 116/49; PULSE 94; RESP 18; TEMP 36.7; O2SAT 95; BMI 27.1
[2023-05-13] MEDS: dextrose 50% syringe 50 mL 25 ML IVP (18:13)
--- NOTE | 2023-05-13 18:14 | XRR_ITS ---
PROCEDURE INFORMATION: Exam: XR Chest Exam date and time: 05/13/2023 6:21 PM Age: 28 years old Clinical indication: Other: Hypoglycemic; Additional info: Hypoglycemia TECHNIQUE: Imaging protocol: Radiologic exam of the chest. Views: 1 view. COMPARISON: CR XR chest 1V portable [id number] 10/01/2022 6:32 PM FINDINGS: Lungs: Unremarkable. No consolidation. Pleural spaces: Unremarkable. No pleural effusion. No pneumothorax. Heart/Mediastinum: Unremarkable. No cardiomegaly. Bones/joints: Visualized osseous structures show no acute abnormality. Other findings: No significant change with prior exam. XR/XR chest 1V portable [id number] IMPRESSION: No acute cardiopulmonary abnormality.
[2023-05-13 18:18] VITALS: BP 91/48; PULSE 112; RESP 16; O2SAT 96
--- NOTE | 2023-05-13 18:19 | W.ED.NAVMDI ---
HPI - Nausea/Vomiting/Diarrhea General: Chief complaint: Nausea/Vomiting/Diarrhea Stated complaint: n,v, weakness Time Seen by Provider: 05/13/23 17:49 Source: patient Mode of arrival: EMS History of Present Illness: This 28-year-old male with a history of type 1 diabetes and DKA presents to the ER with vomiting and weakness that started yesterday. Patient vomited multiple times yesterday and a few times today. The last vomitus was sometime this afternoon. Patient reports that the last time he ate was last night. However, his insulin pump was on until EMS removed it on his way to the hospital. Patient denies chest pain, shortness of breath or abdominal pain. On initial evaluation, he was diaphoretic and appeared weak. D stick was 66. D50 will be given immediately. There is no documented fever. Associated nausea: Yes Associated symtoms: Reports nausea; Denies change in vision, chest pain, dysuria or headache(s) Review of Systems Const: Denies: chills, body aches or change in appetite Eyes: Denies: change in vision or eye discharge ENMT: Denies: throat pain, dental pain or nasal discharge Card: Denies: chest pain or lightheadedness GI: Reports: nausea and vomiting : Denies: dysuria Musc: Reports: other (Generalized weakness); Denies: neck pain or back pain Neuro: Denies: headache(s) Psych: Denies: depression Garett/Lymph: Denies: easy bruising All/Imm: Denies: urticaria, tongue swelling or facial swelling PFS ED PFSH: Medical History Abdominal pain Diabetic keto-acidosis DKA (diabetic ketoacidoses) DKA (diabetic ketoacidosis) GERD (gastroesophageal reflux disease) High anion gap metabolic acidosis History of pancreatitis Hyperglycemia Hypoglycemia due to insulin Long-term insulin use Marijuana use Methamphetamine abuse Nausea & vomiting Noncompliance with diabetes treatment Pancreatitis Type 1 diabetes With recurrent admissions for DKA, severe Uncontrolled type 1 diabetes mellitus Surgical History No pertinent past surgical history Family History Other Diabetes Social History (Reviewed 04/27/23 @ 13:24 by NEMESIO Castellano Smoking and tobacco status: current every day smoker Alcohol intake: never Substance/Drug Use: former Date of last use: Marijuana abuse Lives independently: Yes Household members: family Marital status: Single Current occupational status: disabled Physical Exam Const: COMMON NORMALS: no acute distress, patient oriented x3 (appears weak) and no limitations OTHER: Diaphoretic HENMT: COMMON NORMALS: normocephalic HEAD & SCALP: normocephalic Eye: COMMON NORMALS: EOMs intact bilaterally Neck/C-Spine: COMMON NORMALS: full ROM and supple Chest: COMMONS NORMALS: normal inspection of the chest Resp: COMMON NORMALS: normal respiratory effort, No retractions, No use of accessory muscles and clear to auscultation bilaterally AUSCULTATION: clear to auscultation bilaterally Cardio: COMMON NORMALS: regular rate, regular rhythm and No murmurs present (Cardio) RATE: regular rate RHYTHM: regular rhythm GI: COMMON NORMALS: Normal to inspection, nondistended, normoactive bowel sounds present and non-tender : COMMON NORMALS: Yes no CVA tenderness BLADDER/KIDNEY EXAM: Yes no CVA tenderness Back/Pelvis: COMMON NORMALS: no CVA tenderness and no thoracic nor lumbar tenderness Extremity: GENERAL: Yes normal exam except as noted Neuro: COMMON NORMALS: patient oriented x3 (appears weak) and no focal motor deficits Psych: COMMON NORMALS: mental status grossly normal and cooperative Course Vital Signs: Vital signs: Vital Signs Temperature 98.0 F 05/13/23 17:42 Pulse Rate 112 H 05/13/23 18:18 Respiratory Rate 16 05/13/23 18:18 Blood Pressure 91/48 05/13/23 18:18 Pulse Oximetry 96 05/13/23 18:18 Oxygen Delivery Me thod Room Air 05/13/23 18:18 MDM - Nausea/Vomiting/Diarrhea Medical Decision Making Medical decision making: This 28-year-old male with a history of type 1 diabetes presents with nausea and vomiting. He has no abdominal pain and abdomen is nontender tender on exam. He is clearly not in DKA. After receiving D50 blood sugar improved and he remained stable throughout his stay in the ER. I believe that he has viral gastroenteritis which will be managed symptomatically. He was discharged home with Zofran and advised to follow-up with his primary care provider. Reasons to return were discussed. Lab Data 05/13/23 18:37 05/13/23 18:37 Radiology Impressions Chest X-Ray 05/13/23 18:14 IMPRESSION: No acute cardiopulmonary abnormality. Laboratory Results WBC 6.62 10^3/uL (3.29-11.43) 05/13/23 18:37 RBC 5.34 10^6/uL (3.85-5.65) 05/13/23 18:37 Hgb 16.20 g/dL (11.27-16.99) 05/13/23 18:37 Hct 46.9 % (37-53) 05/13/23 18:37 MCV 87.8 fl (82-101) 05/13/23 18:37 MCH 30.3 pg (27-33) 05/13/23 18:37 MCHC 34.5 g/dL (30-55) 05/13/23 18:37 RDW 11.8 % (12.1-15.1) L 05/13/23 18:37 Plt Count 193 10^3/cmm (157-399) 05/13/23 18:37 MPV 9.7 fL (7.4-10.4) 05/13/23 18:37 Neut % (Auto) 87.5 % 05/13/23 18:37 Lymph % (Auto) 7.4 % 05/13/23 18:37 [place] % (Auto) 4.5 % 05/13/23 18:37 Eos % (Auto) 0.0 % 05/13/23 18:37 Baso % (Auto) 0.3 % 05/13/23 18:37 Neut # (Auto) 5.79 10^3/uL (1.8-7.7) 05/13/23 18:37 Lymph # (Auto) 0.5 10^3/uL (0.8-4.8) L 05/13/23 18:37 [place] # (Auto) 0.3 10^3/uL (0.2-0.9) 05/13/23 18:37 Eos # (Auto) 0.0 10^3/uL (0.0-0.8) 05/13/23 18:37 Baso # (Auto) 0.0 10^3/uL (0.0-0.1) 05/13/23 18:37 Nucleated RBC % (auto) 0 % 05/13/23 18:37 Nucleated RBCs # 0.0 /100WBC 05/13/23 18:37 Specimen Type Arterial 05/13/23 19:50 Sample Site Brachial, right 05/13/23 19:50 ABG pH 7.45 (7.35-7.45) 05/13/23 19:50 ABG pCO2 39.3 mmHg (35-45) 05/13/23 19:50 ABG pO2 90.9 mmHg (80.0-100.0) 05/13/23 19:50 ABG HCO3 27.0 mmol/L (22-26) H 05/13/23 19:50 ABG Base Excess 2.7 mmol/L (-2.0-2.0) H 05/13/23 19:50 Hasmukh Test N/a 05/13/23 19:50 Hematocrit 46.8 % (42-52) 05/13/23 19:50 O2 Delivery Device None 05/13/23 19:50 FiO2 21.0 % 05/13/23 19:50 Bearing Inspector ID [email or web address] 05/13/23 19:50 Sodium 144 mmol/L (136-145) 05/13/23 18:37 Potassium 3.8 mmol/L (3.5-5.1) 05/13/23 18:37 Chloride 104 mmol/L (98-107) 05/13/23 18:37 Carbon Dioxide 30 mmol/L (22-29) H 05/13/23 18:37 Anion Gap 13.8 (5-19) 05/13/23 18:37 BUN 10 mg/dL (6-20) 05/13/23 18:37 Creatinine 0.7 mg/dL (0.7-1.2) 05/13/23 18:37 GFR Calculation 136.3 mL/min (90-130) H 05/13/23 18:37 Glucose 181 mg/dL (65-115) H 05/13/23 18:37 POC Glucose 167 mg/dL (70-110) H 05/13/23 20:47 Calculated Osmolality 302 mOsm/kg (285-295) H 05/13/23 18:37 Calcium 10.0 mg/dL (8.5-10.5) 05/13/23 18:37 Total Bilirubin 0.5 mg/dL (0.15-1.2) 05/13/23 18:37 AST 15 U/L (0-40) 05/13/23 18:37 ALT 24 U/L (0-41) 05/13/23 18:37 Alkaline Phosphatase 53 U/L (40-130) 05/13/23 18:37 Total Protein 7.4 g/dL (6.6-8.7) 05/13/23 18:37 Albumin 4.9 g/dL (3.5-5.2) 05/13/23 18:37 Globulin 2.5 g/dL (1.3-4.6) 05/13/23 18:37 Urine Color Dark yellow (Yellow) 05/13/23 20:24 Urine Appearance Clear (CLEAR) 05/13/23 20:24 Urine pH 8 (5-7) H 05/13/23 20:24 Ur Specific [place] 1.020 (1.005-1.030) 05/13/23 20:24 Urine Protein 1+ (Negative) H 05/13/23 20:24 Urine Glucose (UA) 4+ (Normal) H 05/13/23 20:24 Urine Ketones 3+ (Negative) H 05/13/23 20:24 Urine Blood Neg (Negative) 05/13/23 20:24 Urine Nitrate Negative (Negative) 05/13/23 20:24 Urine Bilirubin 1+ (Negative) H 05/13/23 20:24 Prot Sulfosalicylic Acd Positive (Negative) 05/13/23 20:24 Urine Urobilinogen 4 mg/dL (Negative) H 05/13/23 20:24 Ur Leukocyte Esterase Trace (Negative) H 05/13/23 20:24 Urine RBC None /hpf (0-2) 05/13/23 20:24 Urine WBC 5-10 /hpf (0-5) H 05/13/23 20:24 Ur Squamous Epith Cells 0-4 /hpf (0-5) H 05/13/23 20:24 Amorphous Sediment Not Reportable 05/13/23 20:24 Urine Bacteria Trace /hpf (NONE) 05/13/23 20:24 Urine Mucus 3+ /hpf 05/13/23 20:24 Urine Opiates Screen Negative ng/mL (Negative) 05/13/23 20:24 Ur Barbiturates Screen Negative ng/mL (Negative) 05/13/23 20:24 Ur Phencyclidine Scrn Negative ng/mL (Negative) 05/13/23 20:24 Ur Amphetamines Screen Negative ng/mL (Negative) 05/13/23 20:24 U Benzodiazepines Scrn Negative ng/mL (Negative) 05/13/23 20:24 Urine Cocaine Screen Negative ng/mL (Negative) 05/13/23 20:24 U Marijuana (THC) Screen Positive ng/mL (Negative) H 05/13/23 20:24 Ethyl Alcohol < 10 mg/dL (0-10) 05/13/23 18:37 Serum Ketones Negative (Negative) 05/13/23 19:23 Discharge Plan Discharge Patient Disposition: Home Clinical Impression: Type 1 diabetes, Gastroenteritis, Hypoglycemia associated with diabetes Condition: Stable Prescriptions: New ondansetron 4 mg tablet,disintegrating 4 mg PO Q6H PRN (Reason: nausea and vomiting) Qty: 20 0RF No Action sulfamethoxazole-trimethoprim [Bactrim DS] 800-160 mg tablet 1 tab PO BID Qty: 20 0RF (DME) Omnipod 5 G6 Intro Kit (Gen 5) Cartridge See Rx Instructions .ROUTE .MEDSUPPLY Qty: 1 0RF Rx Instructions: As directed (DME) Omnipod 5 G6 Pods (Gen 5) Cartridge See Rx Instructions .ROUTE .MEDSUPPLY Qty: 15 3RF Rx Instructions: change pod every 3 days (DME) Dexcom G6 Speech And Language Tutor Misc See Rx Instructions .ROUTE .MEDSUPPLY Qty: 1 0RF Rx Instructions: takes blood sugar (DME) Dexcom G6 Sensor Device See Rx Instructions .ROUTE .MEDSUPPLY Qty: 9 3RF Rx Instructions: Change every 10 days (DME) Dexcom G6 Transmitter Device See Rx Instructions .ROUTE .MEDSUPPLY Qty: 3 3RF Rx Instructions: change every 90 days sulfamethoxazole-trimethoprim [Bactrim DS] 800-160 mg tablet 1 tab PO BID Qty: 20 0RF levofloxacin 500 mg tablet 500 mg PO DAILY Qty: 10 0RF (DME) strips See Rx Instructions .Route .MEDSUPPLY Qty: 1 3RF Rx Instructions: Check blood sugars 3 times daily, with meals, #200, 3 refills (DME) lancets Misc See Rx Instructions .Route Qty: 200 3RF Rx Instructions: check BS, TID with meals insulin lispro [Humalog KwikPen Insulin] 100 unit/mL insulin pen See Rx Instructions SUBCUT TID Qty: 27 2RF Rx Instructions: INJECT UNDER SKIN THREE TIMES DAILY BEFORE MEALS, BASED ON SLIDING SCALE PROVIDED- BACKUP IF PUMP NOT WORKING subcutaneously Levemir FlexPen 100 unit/mL (3 mL) insulin pen 30 unit SUBCUT BID 30 Days Qty: 18 2RF Rx Instructions: INJECT 30 UNITS UNDER SKIN TWICE DAILY insulin lispro 100 unit/mL solution See Rx Instructions .ROUTE .COMPLEX 90 Days Qty: 30 0RF Dose Instruction: USE 150 UNITS DAILY DIRECTED VIA PUMP Rx Instructions: USE 150 UNITS DAILY DIRECTED VIA PUMP (DME) blood sugar diagnostic Strip See Rx Instructions .Route Qty: 100 0RF Rx Instructions: As directed (DME) Blood Glucose Test Strip See Rx Instructions .Route Qty: 100 0RF Rx Instructions: As directed (DME) blood-glucose meter [Blood Glucose Monitoring] Kit See Rx Instructions .Route Qty: 1 0RF Rx Instructions: As directed (DME) strips See Rx Instructions .Route .MEDSUPPLY Qty: 200 3RF Rx Instructions: Check blood sugars 3 times daily, before meals (DME) lancets See Rx Instructions .Route .MEDSUPPLY Qty: 200 1RF Rx Instructions: Check blood sugars 3 times daily, before meals multivitamin Tablet 1 tab PO DAILY ondansetron 4 mg tablet,disintegrating 4 mg PO Q6H PRN (Reason: nausea and vomiting) Qty: 14 0RF Discharge Orders: Discharge ED (Routine); Ordered 05/13/23 Ordered By: Venessa Najera Referrals: Earlene Titus FNP-C [Primary Care Provider] - Discharge Diet: Advance as tolerated Discharge Activity: Resume usual activity Patient Instructions: Opioid Safety, Pain Management Activity Restrictions/Additional Instructions: Take Zofran as needed for nausea/vomiting. Continue your usual home medications but closely monitor your blood sugar. Maintain adequate fluid intake. Follow-up with your primary care physician in 3 days for reevaluation. Return with new or worsening symptoms. Coding Level of Care Code ED French Folding Machine Operator for Maxx Mohr
[2023-05-13] MEDS: sodium chloride 0.9% 1,000 ML 999 ML IV (18:33)
--- NOTE | 2023-05-13 18:34 | PC.NURSE ---
[place], crackers, orange juice given with MD permission.
[2023-05-13 18:45] LABS: Basophils % 0.3 %; Hematocrit 46.9 % (37-53); Lymphocytes # 0.5 10^3/uL (0.8-4.8); Lymphocytes % 7.4 %; Mean Corpuscular HGB Conc 34.5 g/dL (30-55); Mean Corpuscular Hemoglobin 30.3 pg (27-33); Mean Corpuscular Volume 87.8 fl (82-101); Mean Platelet Volume 9.7 fL (7.4-10.4); Monocytes # 0.3 10^3/uL (0.2-0.9); Monocytes % 4.5 %; Neutrophils # 5.79 10^3/uL (1.8-7.7); Neutrophils % 87.5 %; Nucleated Red Blood Cells % 0 %; Platelet Count 193 10^3/cmm (157-399); Red Blood Count 5.34 10^6/uL (3.85-5.65); Red Cell Distribution Width 11.8 % (12.1-15.1); White Blood Count 6.62 10^3/uL (3.29-11.43)
[2023-05-13 18:47] LABS: Glucose Point of Care 140 mg/dL (70-110)
[2023-05-13 19:14] LABS: Alanine Aminotransferase 24 U/L (0-41); Albumin Level 4.9 g/dL (3.5-5.2); Alcohol Level < 10 mg/dL (0-10); Alkaline Phosphatase 53 U/L (40-130); Anion Gap 13.8 (5-19); Aspartate Amino Transferase 15 U/L (0-40); Blood Urea Nitrogen 10 mg/dL (6-20); Carbon Dioxide 30 mmol/L (22-29); Chloride 104 mmol/L (98-107); Creatinine Clr Calc Pharmacy 150.3588; Globulin 2.5 g/dL (1.3-4.6); Glomerular Filtration Rate 136.3 mL/min (90-130); Glucose 181 mg/dL (65-115); Osmolality Calculated 302 mOsm/kg (285-295); Potassium 3.8 mmol/L (3.5-5.1); Sodium 144 mmol/L (136-145); Total Bilirubin 0.5 mg/dL (0.15-1.2); Total Protein 7.4 g/dL (6.6-8.7)
[2023-05-13 19:34] LABS: Ketone (Acetest) Serum Negative (Negative)
[2023-05-13 19:58] LABS: ABG PCO2 39.3 mmHg (35-45); ABG PH Result 7.45 (7.35-7.45); Arterial Blood Gas Hematocrit 46.8 % (42-52); Base Excess ABG 2.7 mmol/L (-2.0-2.0); Blood Gas Sample Site Brachial, right; Blood Gas Sample Type Arterial; PO2 ABG 90.9 mmHg (80.0-100.0)
[2023-05-13 20:45] LABS: Amphetamines Screen Urine Negative (Negative); Barbiturates Screen Urine Negative (Negative); Benzodiazepines Screen Urine Negative (Negative); Cocaine Screen Urine Negative (Negative); Opiate Screen Urine Negative (Negative); PCP Screen Urine Negative (Negative); THC Screen Urine Positive (Negative)
[2023-05-13 20:49] LABS: Glucose Point of Care 167 mg/dL (70-110)
[2023-05-13 20:55] LABS: Add Urine Microscopic? YES; Bilirubin Urine 1+ (Negative); Blood Urine Neg (Negative); Glucose Urine UA 4+ (Normal); Leukocyte Esterase Urine Trace (Negative); Nitrate Urine Negative (Negative); Protein Urine 1+ (Negative); Sulfosalicylic Acid Urine Positive (Negative); Urine Appearance Clear (CLEAR); Urine Color Dark Yellow (Yellow); Urobilinogen Urine 4 mg/dL (Negative); pH Urine 8 (5-7)
[2023-05-13 20:56] LABS: Bacteria Urine TRACE /hpf; Ketones Urine 3+ (Negative); Mucus Urine 3+ /hpf; Squamous Epithelial Cell Urine 0-4 /hpf (0-5)
[2023-05-13 20:57] LABS: Add Urine Culture? No
[2023-05-13 21:31] LABS: Glucose Point of Care 200 mg/dL (70-110)
== END 2023-05-13 21:45 | disposition home or self-care (01) ==
PROVIDERS: Emergency Provider Family Medicine; PCP Nurse Practitioner Family
DX: E10.649 Type 1 diabetes mellitus with hypoglycemia without coma (principal); K52.9 Noninfective gastroenteritis and colitis, unspecified; Z79.4 Long term (current) use of insulin; F17.210 Nicotine dependence, cigarettes, uncomplicated
CPT/HCPCS: 36415; 36416; 36600; 71045; 80053; 80306; 80307; 81001; 82009; 82803; 82962; 85025; 96374; 99284; J7030

== ENCOUNTER → 2023-06-15 08:55 | Outpatient (BNVA) | payer MEDICARE, MEDICAID, SELFPAY | PROVIDERS: PCP Nurse Practitioner Family; Visit Provider Internal Medicine | DX: E10.9 Type 1 diabetes mellitus without complications (principal); E78.2 Mixed hyperlipidemia; Z79.4 Long term (current) use of insulin | CPT/HCPCS: 99214 ==

== ENCOUNTER 2023-08-11 08:16 | Observation (INO) | payer MEDICARE, MEDICAID, SELFPAY ==
[2023-08-11] VITALS (36 sets, daily range): BP systolic 70–123; BP diastolic 43–79; PULSE 70–127; RESP 15–17; TEMP 36.6–36.7; O2SAT 93–100; BMI 23.3; BMI 24.2
[2023-08-11 08:25] LABS: Glucose Point of Care 429 mg/dL (70-110)
--- NOTE | 2023-08-11 08:25 | W.ED.NAVMDI ---
HPI - Nausea/Vomiting/Diarrhea General: Chief complaint: Nausea/Vomiting/Diarrhea Stated complaint: DKA Time Seen by Provider: 08/11/23 08:18 Source: patient Mode of arrival: ambulatory History of Present Illness: 28-year-old male with history of poorly controlled diabetes mellitus presents emergency room via EMS with persistent nausea vomiting abdominal pain cramping. Patient has had multiple admissions in the past for DKA. Clinically appears at the bedside to be in DKA he denies any recent illness symptoms began last night he has a insulin pump now but it was displaced he thinks it was while in route to the hospital. He denies any symptoms of illness yesterday prior to the onset of the nausea or vomiting. MD elicited complaint: nausea and vomiting Pertinent past history: other (Recurrent DKA) Onset (ago): hour(s) Description of vomiting: watery Associated nausea: Yes Associated abdominal pain: Yes Location of pain: Diffuse Quality: cramping Exacerbating factors: none Relieving factors: none Associated symtoms: Reports fatigue, malaise and nausea; Denies anxiety, bloating, change in vision, chest pain, cough, diaphoresis, decreased urine output, dizziness, dysuria, epistaxis, fecal incontinence, fevers/chills, headache(s), anorexia, myalgias, numbness, palpitations, rash, short of breath, syncope, tenesmus, tinnitus or weakness Review of Systems Const: Reports: body aches, fatigue and malaise; Denies: fever(s), chills or diaphoresis Eyes: Denies: change in vision ENMT: Denies: tinnitus or epistaxis Card: Denies: chest pain, palpitations or syncope Resp: Denies: dyspnea GI: Reports: abdominal pain, nausea and vomiting; Denies: hematemesis, coffee ground emesis, bloating or fecal incontinence : Denies: dysuria Musc: Denies: neck pain or back pain Skin/Breast: Denies: rash Neuro: Denies: headache(s) or dizziness Psych: Denies: anxiety PFSH ED PFSH: Medical History Abdominal pain High anion gap metabolic acidosis DKA (diabetic ketoacidosis) Diabetic keto-acidosis Hyperglycemia Nausea & vomiting Noncompliance with diabetes treatment Methamphetamine abuse DKA (diabetic ketoacidoses) History of pancreatitis Long-term insulin use Hypoglycemia due to insulin Uncontrolled type 1 diabetes mellitus Pancreatitis Marijuana use GERD (gastroesophageal reflux disease) Type 1 diabetes With recurrent admissions for DKA, severe Surgical History No pertinent past surgical history Family History Other Diabetes Social History Smoking and tobacco/nicotine status: current every day tobacco/nicotine user Alcohol intake: never Substance/Drug Use: former Date of last use: Marijuana abuse Lives independently: Yes Household members: family Marital status: Single Current occupational status: disabled Physical Exam Const: GENERAL APPEARANCE: cooperative ORIENTATION/CONSCIOUSNESS: Yes awake, Yes oriented to person, Yes oriented to place and Yes oriented to time HENMT: COMMON NORMALS: normocephalic, atraumatic and hearing grossly normal bilaterally HEAD & SCALP: normocephalic and atraumatic Resp: COMMON NORMALS: normal respiratory effort, No retractions, No use of accessory muscles and clear to auscultation bilaterally AUSCULTATION: clear to auscultation bilaterally Cardio: COMMON NORMALS: regular rate, regular rhythm and No murmurs present (Cardio) RATE: regular rate RHYTHM: regular rhythm GI: COMMON NORMALS: Soft to palpation and No hepatosplenomegaly present AUSCULTATION: Yes normoactive bowel sounds PALPATION: Yes Soft to palpation, No Tenderness to palpation present (GI), No Guarding due to palpation present (GI) and Yes No hepatosplenomegaly present Extremity: COMMON NORMALS: normal to inspection, capillary refill normal, no clubbing, cyanosis or edema, no calf tenderness and no pedal edema Neuro: SENSORIUM/ORIENTATION: Yes oriented to person, Yes oriented to place and Yes oriented to time Skin: COMMON NORMALS: no rashes or lesions noted GENERAL SKIN EXAM: no rashes or lesions noted Course Vital Signs: Vital signs: Vital Signs Temperature 98.1 F 08/11/23 08:18 Pulse Rate 70 08/11/23 08:18 Blood Pressure 113/79 08/11/23 08:18 Pulse Oximetry 98 08/11/23 08:18 Oxygen Delivery Me thod Room Air 08/11/23 08:18 MDM - Nausea/Vomiting/Diarrhea Medical Decision Making Patient given several liters of fluids blood sugars improved he does not have DKA which is unusual for him usually he presents weight does have DKA has happened multiple times in the past. Initially did not have any respiratory symptoms no other focus of infection his blood pressure remains hypotensive he is mildly tachycardic placed on observation Initially patient denied any chest pain or shortness of breath I have reviewed the fluid. Tachycardic and hypotensive. His respiratory rate and his oxygen sats are in the normal range. However he began to complain of chest pain after we had placed him on observation or waiting for a bed assignment CTA ordered Medical Records I reviewed the patient's medical records. Lab Data I reviewed the patient's lab results. 08/11/23 08:30 08/11/23 11:25 Laboratory Results WBC 9.69 10^3/uL (3.29-11.43) 08/11/23 08:30 RBC 5.35 10^6/uL (3.85-5.65) 08/11/23 08:30 Hgb 16.80 g/dL (11.27-16.99) 08/11/23 08:30 Hct 51.0 % (37-53) 08/11/23 08:30 MCV 95.3 fl (82-101) 08/11/23 08:30 MCH 31.4 pg (27-33) 08/11/23 08:30 MCHC 32.9 g/dL (30-55) 08/11/23 08:30 RDW 11.9 % (12.1-15.1) L 08/11/23 08:30 Plt Count 209 10^3/cmm (157-399) 08/11/23 08:30 MPV 10.0 fL (7.4-10.4) 08/11/23 08:30 Neut % (Auto) 87.7 % 08/11/23 08:30 Lymph % (Auto) 9.3 % 08/11/23 08:30 [place] % (Auto) 2.2 % 08/11/23 08:30 Eos % (Auto) 0.0 % 08/11/23 08:30 Baso % (Auto) 0.5 % 08/11/23 08:30 Neut # (Auto) 8.50 10^3/uL (1.8-7.7) H 08/11/23 08:30 Lymph # (Auto) 0.9 10^3/uL (0.8-4.8) 08/11/23 08:30 [place] # (Auto) 0.2 10^3/uL (0.2-0.9) 08/11/23 08:30 Eos # (Auto) 0.0 10^3/uL (0.0-0.8) 08/11/23 08:30 Baso # (Auto) 0.1 10^3/uL (0.0-0.1) 08/11/23 08:30 Nucleated RBC % (auto) 0 % 08/11/23 08:30 Nucleated RBCs # 0.0 /100WBC 08/11/23 08:30 Specimen Type Arterial 08/11/23 08:35 Sample Site Radial, left 08/11/23 08:35 ABG pH 7.35 (7.35-7.45) 08/11/23 08:35 ABG pCO2 27.8 mmHg (35-45) L 08/11/23 08:35 ABG pO2 99.5 mmHg (80.0-100.0) 08/11/23 08:35 ABG PO2/FiO2 Ratio 0 08/11/23 08:35 ABG HCO3 15.4 mmol/L (22-26) L 08/11/23 08:35 ABG O2 Saturation 97.8 08/11/23 08:35 ABG Base Excess -8.5 mmol/L (-2.0-2.0) L 08/11/23 08:35 Hasmukh Test Pos 08/11/23 08:35 A-a O2 Gradient 1.9 mmHg (5-10) L 08/11/23 08:35 Hematocrit 49.9 % (42-52) 08/11/23 08:35 Hgb O2 Saturation 96.7 % (95-100) 08/11/23 08:35 Carboxyhemoglobin 0.9 %THgb (0.4-20.1) 08/11/23 08:35 Methemoglobin 0.2 % (0.4-1.5) L 08/11/23 08:35 Total Hemoglobin 16.3 g/dL (14-18) 08/11/23 08:35 Sodium 135.0 mmol/L (131-143) 08/11/23 08:35 Potassium 4.3 mmol/L (3.5-5.0) 08/11/23 08:35 Glucose 416.0 mg/dL (70-115) H 08/11/23 08:35 Ionized Calcium 1.2 mmol/L (1.1-1.4) 08/11/23 08:35 O2 Delivery Device None 08/11/23 08:35 FiO2 21.0 % 08/11/23 08:35 Medium Cycle Salesperson ID glc 08/11/23 08:35 Sodium 135 mmol/L (136-145) L 08/11/23 11:25 Potassium 4.4 mmol/L (3.5-5.1) 08/11/23 11:25 Chloride 99 mmol/L (98-107) 08/11/23 11:25 Carbon Dioxide 16 mmol/L (22-29) L 08/11/23 11:25 Anion Gap 24.4 (5-19) H 08/11/23 11:25 BUN 19 mg/dL (6-20) 08/11/23 11:25 Creatinine 0.8 mg/dL (0.7-1.2) 08/11/23 11:25 GFR Calculation 116.9 mL/min (90-130) 08/11/23 11:25 Glucose 364 mg/dL (65-115) H 08/11/23 11:25 POC Glucose 375 mg/dL (70-110) H 08/11/23 10:37 Calculated Osmolality 297 mOsm/kg (285-295) H 08/11/23 11:25 Calcium 8.8 mg/dL (8.5-10.5) 08/11/23 11:25 Phosphorus 3.2 mg/dL (2.5-4.5) 08/11/23 08:30 Magnesium 1.5 mg/dL (1.7-2.3) L 08/11/23 08:30 Total Bilirubin 1.1 mg/dL (0.15-1.2) 08/11/23 08:30 AST 19 U/L (0-40) 08/11/23 08:30 ALT 17 U/L (0-41) 08/11/23 08:30 Alkaline Phosphatase 61 U/L (40-130) 08/11/23 08:30 Total Protein 7.2 g/dL (6.6-8.7) 08/11/23 08:30 Albumin 4.8 g/dL (3.5-5.2) 08/11/23 08:30 Globulin 2.4 g/dL (1.3-4.6) 08/11/23 08:30 Lipase 17 U/L (13-60) 08/11/23 08:30 Urine Color Yellow (Yellow) 08/11/23 09:42 Urine Appearance Clear (CLEAR) 08/11/23 09:42 Urine pH 5 (5-7) 08/11/23 09:42 Ur Specific [place] 1.020 (1.005-1.030) 08/11/23 09:42 Urine Protein Neg (Negative) 08/11/23 09:42 Urine Glucose (UA) 4+ (Normal) H 08/11/23 09:42 Urine Ketones 3+ (Negative) H 08/11/23 09:42 Urine Blood Neg (Negative) 08/11/23 09:42 Urine Nitrate Negative (Negative) 08/11/23 09:42 Urine Bilirubin Neg (Negative) 08/11/23 09:42 Urine Urobilinogen Norm mg/dL (Negative) 08/11/23 09:42 Ur Leukocyte Esterase Negative (Negative) 08/11/23 09:42 Serum Ketones Negative (Negative) 08/11/23 08:30 All radiology interpretation(s) finalized by discharge Discharge Plan Discharge Patient Disposition: Placed in Observation Clinical Impression: Cannabinoid hyperemesis syndrome, Type 1 diabetes, Tachycardia, Metabolic acidosis with respiratory alkalosis Coding Level of Care Code ED Bilingual Patient Support Caseworker for Maxx Mohr
[2023-08-11 08:37] LABS: Basophils # 0.1 10^3/uL (0.0-0.1); Basophils % 0.5 %; Lymphocytes # 0.9 10^3/uL (0.8-4.8); Lymphocytes % 9.3 %; Mean Corpuscular HGB Conc 32.9 g/dL (30-55); Mean Corpuscular Hemoglobin 31.4 pg (27-33); Mean Corpuscular Volume 95.3 fl (82-101); Monocytes # 0.2 10^3/uL (0.2-0.9); Monocytes % 2.2 %; Neutrophils % 87.7 %; Nucleated Red Blood Cells % 0 %; Platelet Count 209 10^3/cmm (157-399); Red Blood Count 5.35 10^6/uL (3.85-5.65); Red Cell Distribution Width 11.9 % (12.1-15.1); White Blood Count 9.69 10^3/uL (3.29-11.43)
[2023-08-11] MEDS: metoclopramide 5 mg/mL SDV 2 mL 10 MG IVP (08:37)
[2023-08-11 08:45] LABS: ABG PCO2 27.8 mmHg (35-45); ABG PH Result 7.35 (7.35-7.45); Alveolar-Arterial Oxygen Gradi 1.9 mmHg (5-10); Arterial Blood Gas Hematocrit 49.9 % (42-52); Base Excess ABG -8.5 mmol/L (-2.0-2.0); Blood Gas Allen Test Pos; Blood Gas Operator Identificat glc; Blood Gas Sample Site Radial, left; Blood Gas Sample Type Arterial; Carboxyhemoglobin 0.9 %THgb (0.4-20.1); HCO3 ABG 15.4 mmol/L (22-26); HGB O2 Sat 96.7 % (95-100); Ionized Calcium Level - ABG 1.2 mmol/L (1.1-1.4); Methemoglobin 0.2 % (0.4-1.5); Oxygen Saturation ABG 97.8; PO2 ABG 99.5 mmHg (80.0-100.0); PO2 FiO2 Ratio Arterial Blood 0; Potassium Level - ABG 4.3 mmol/L (3.5-5.0); Total Hemoglobin 16.3 g/dL (14-18)
[2023-08-11 09:07] LABS: Ketone (Acetest) Serum Negative (Negative)
[2023-08-11 09:16] LABS: Alanine Aminotransferase 17 U/L (0-41); Albumin Level 4.8 g/dL (3.5-5.2); Alkaline Phosphatase 61 U/L (40-130); Aspartate Amino Transferase 19 U/L (0-40); Blood Urea Nitrogen 16 mg/dL (6-20); Calcium 10.1 mg/dL (8.5-10.5); Carbon Dioxide 14 mmol/L (22-29); Chloride 91 mmol/L (98-107); Creatinine Clr Calc Pharmacy 140.9194; Globulin 2.4 g/dL (1.3-4.6); Glomerular Filtration Rate 136.3 mL/min (90-130); Glucose 455 mg/dL (65-115); Lipase 17 U/L (13-60); Magnesium 1.5 mg/dL (1.7-2.3); Osmolality Calculated 295 mOsm/kg (285-295); Phosphorus 3.2 mg/dL (2.5-4.5); Sodium 132 mmol/L (136-145); Total Bilirubin 1.1 mg/dL (0.15-1.2); Total Protein 7.2 g/dL (6.6-8.7)
[2023-08-11 09:20] LABS: Anion Gap 31.9 (5-19); Potassium 4.9 mmol/L (3.5-5.1)
[2023-08-11] MEDS: insulin regular-human 100 units/1 mL 15 UNIT IVP (09:51)
[2023-08-11] MEDS: sodium chloride 0.9% 1,000 ML 999 ML IV ×3 (09:55→13:01)
[2023-08-11] MEDS: haloperidol inj 5 mg/mL INJ 1 mL 2.5 MG IVP (10:03)
[2023-08-11 10:10] LABS: Add Urine Microscopic? NO; Charge for UA Resulting for Rev
[2023-08-11 10:20] LABS: Protein Urine Neg (Negative); Urine Appearance Clear (CLEAR); Urine Color Yellow (Yellow); pH Urine 5 (5-7)
[2023-08-11 10:21] LABS: Bilirubin Urine Neg (Negative); Blood Urine Neg (Negative); Glucose Urine UA 4+ (Normal); Ketones Urine 3+ (Negative); Leukocyte Esterase Urine Negative (Negative); Nitrate Urine Negative (Negative); Urobilinogen Urine Norm (Negative)
[2023-08-11 10:41] LABS: Glucose Point of Care 375 mg/dL (70-110)
[2023-08-11 11:47] LABS: Anion Gap 24.4 (5-19); Blood Urea Nitrogen 19 mg/dL (6-20); Calcium 8.8 mg/dL (8.5-10.5); Carbon Dioxide 16 mmol/L (22-29); Chloride 99 mmol/L (98-107); Glomerular Filtration Rate 116.9 mL/min (90-130); Glucose 364 mg/dL (65-115); Osmolality Calculated 297 mOsm/kg (285-295); Potassium 4.4 mmol/L (3.5-5.1); Sodium 135 mmol/L (136-145)
--- NOTE | 2023-08-11 12:33 | XR_ITS ---
WS: [id number] Portable AP upright chest, 08/11/2023 Clinical Data: tachy cardia/hypotension Comparison: Portable chest, 05/13/2023 Findings: No nodules, masses or effusions are seen. The heart is normal. The pulmonary vascularity is not increased. No pneumonia or pneumothorax is seen. Monitor leads are on the chest wall. Impression: Negative chest.
--- NOTE | 2023-08-11 13:34 | CT_ITS ---
WS: [id number] CT CHEST ANGIOGRAPHY WITH REFORMATS HISTORY: Chest discomfort tachycardia TECHNIQUE: Contiguous axial images are obtained through the chest during arterial injection of intrav enous contrast. Images are reconstructed to evaluate the pulmonary arteries. MIP imaging also reviewe d. All CT scans at [facility] use at least one of these dose optimization techniques: automat ed exposure control; mA and/or kV adjustment per patient size (includes targeted exams where dose is matched to clinical indication); or iterative reconstruction. CONTRAST: Omnipaque 350; 100 mL IV. DLP: 327.65 mGy.cm COMPARISON: None available. Study is compromised by poor bolus injection and also breathing motion artifact throughout the exam. Centrally no pulmonary embolism. Opacification become suboptimal beyond the lobar branches. RIGHT upp er lobe pulmonary nodule measures 9 mm. There is an additional lobulated soft tissue nodule RIGHT low er lobe and a peripheral nodule measuring 5 mm in the LEFT lower lobe. No dense areas of consolidatio n. Heart size is normal. No RIGHT heart strain. No pericardial or pleural effusion. There are small ibrahima r lymph nodes which are probably reactive. No osseous abnormality. IMPRESSION: 1. Quality of this examination is compromised by poor bolus injection and motion artifact. 2. No central pulmonary embolism. 3. No RIGHT heart strain. 4. Pulmonary nodules as described above. Largest is 9 mm in the RIGHT upper lobe. 4. Mildly prominent hilar lymph nodes are probably reactive.
[2023-08-11] MEDS: iohexol 350 mg/mL 500 mL Btl (per mL) IV (13:55)
--- NOTE | 2023-08-11 15:55 | PM.HP ---
Providers/Chief Complaint Admitting Physician: Randy Mckeon MD Primary Care Provider: MARGE Castellano Chief Complaint: DKA History of Present Illness Salvatore Ott is a 28 year old male with a past medical history of poorly controlled type 1 diabetes, multiple hospitalizations for diabetic ketoacidosis, current history of marijuana use, who presents [facility] as his insulin pump become dislodged, he had fluctuating blood sugars, difficult to control, with nausea, vomiting, no diarrhea, no dysuria, hematuria, no cough, no fevers, no abdominal pain, no flank pain, denies IV drug use, does report marijuana use within 48 hours ago, history of marijuana related cyclic vomiting syndrome in the emergency room he was found to have increased anion gap, at 24.4, bicarb at 16, serum ketones were negative, blood sugar was 375, as you given fluids, his nausea is under control. Currently seen on [facility], alert oriented x 3, is able to walk to the bathroom, know that his kidney disease, nausea, vomiting. Advised that we can watch blood sugars closely he is insulin pump is now currently working its dislodged so we we will give him subcutaneous insulin. Watch it closely, repeat BMP watch his anion gap, and his serum bicarb, he is agreeable. In the emergency room he complained of chest pain, had a CT which was his normal limits, currently denies active chest pain Review of Systems Const: Denies: fever(s) Resp: Denies: dyspnea GI: Denies: abdominal pain Medications/Allergies Home Medications Medication Instructions Recorded Confirmed Last Taken Type blood sugar diagnostic #100 ea 03/20/21 08/11/23 Unknown Rx blood sugar diagnostic (Blood #100 ea 03/20/21 08/11/23 Unknown Rx Glucose Test strips) blood-glucose meter (Blood Glucose #1 ea 03/20/21 08/11/23 Unknown Rx Monitoring kit) lancets #200 ea 05/17/21 08/11/23 Unknown Rx strips #200 ea 05/17/21 08/11/23 Unknown Rx lancets #200 ea 06/18/21 08/11/23 Unknown Rx strips #1 ea 06/18/21 08/11/23 Unknown Rx multivitamin 1 tab PO DAILY 11/23/21 08/11/23 08/09/23 History blood-glucose meter,continuous #1 ea 10/18/22 08/11/23 Unknown Rx (Dexcom G6 Respiratory Care Assistant) blood-glucose sensor (Dexcom G6 #9 ea 10/18/22 08/11/23 Unknown Rx Sensor device) blood-glucose transmitter (Dexcom #3 ea 10/18/22 08/11/23 Unknown Rx G6 Transmitter device) insulin pump cartridge,automated #1 ea 10/18/22 08/11/23 Unknown Rx dose,BT with controller subcutaneous (Omnipod 5 G6 Intro Kit (Gen 5) subcutaneous cartridge with controller) insulin lispro 100 unit/mL See Rx Instructions SUBCUT TID #27 11/17/22 08/11/23 Unknown Rx subcutaneous pen (Humalog KwikPen mL (U-100) Insulin) insulin detemir U-100 100 unit/mL 30 unit (0.3 mL) SUBCUT BID 30 12/03/22 08/11/23 Unknown Rx (3 mL) subcutaneous pen (Levemir days #18 mL FlexPen) insulin pump cart,automated,BT #15 ea 05/30/23 08/11/23 Unknown Rx (Omnipod 5 G6 Pods (Gen 5) subcutaneous cartridge) insulin lispro 100 unit/mL See Rx Instructions .Route 07/19/23 08/11/23 Unknown Rx subcutaneous solution .COMPLEX 90 days #30 mL Allergies Allergy/AdvReac Type Severity Reaction Status Date / Time promethazine [From Phenergan] Allergy Unknown Verified 08/11/23 08:25 zofran Allergy Intermediate swelling Uncoded 08/11/23 08:25 PFSH Acute PFSH: Medical History Abdominal pain High anion gap metabolic acidosis DKA (diabetic ketoacidosis) Diabetic keto-acidosis Hyperglycemia Nausea & vomiting Noncompliance with diabetes treatment Methamphetamine abuse DKA (diabetic ketoacidoses) History of pancreatitis Long-term insulin use Hypoglycemia due to insulin Uncontrolled type 1 diabetes mellitus Pancreatitis Marijuana use GERD (gastroesophageal reflux disease) Type 1 diabetes With recurrent admissions for DKA, severe Surgical History No pertinent past surgical history Family History Other Diabetes Social History Smoking and tobacco/nicotine status: current every day tobacco/nicotine user Alcohol intake: never Substance/Drug Use: former Date of last use: Marijuana abuse Lives independently: Yes Household members: family Marital status: Single Current occupational status: disabled Vitals/I&O/Wt Last Vital Signs Temp 98.1 F 08/11/23 08:18 Pulse 127 H 08/11/23 15:24 BP 123/61 08/11/23 14:54 Pulse Ox 95 08/11/23 14:24 O2 Del Method Room Air 08/11/23 08:18 08/11/23 08/11/23 08/11/23 06:59 14:59 22:59 Intake Total 1999 Balance 1999 Weight last 48 hrs Weight 63.503 kg Physical Exam Const: COMMON NORMALS: no acute distress and patient oriented x3 HENMT: COMMON NORMALS: normocephalic HEAD & SCALP: normocephalic Eye: COMMON NORMALS: Equal, round and reactive pupils present Neck/C-Spine: COMMON NORMALS: no JVD Lymph: LYMPHATIC: no lymphadenopathy noted Resp: COMMON NORMALS: normal respiratory effort, No retractions, No use of accessory muscles and clear to auscultation bilaterally AUSCULTATION: clear to auscultation bilaterally Cardio: COMMON NORMALS: no JVD, regular rate, regular rhythm, S1 normal heart sound present and S2 normal heart sound present RATE: regular rate RHYTHM: regular rhythm HEART SOUNDS: S1 normal heart sound present and S2 normal heart sound present GI: COMMON NORMALS: Normal to inspection, nondistended, normoactive bowel sounds present, Soft to palpation and non-tender Extremity: COMMON NORMALS: no calf tenderness and no pedal edema Neuro: COMMON NORMALS: patient oriented x3, CN's II-XII intact bilaterally, moves all extremities and no focal motor deficits Psych: COMMON NORMALS: mental status grossly normal Data 08/11/23 08:30 08/11/23 11:25 A&P Assessment and plan (1) Type 1 diabetes: (2) Cannabinoid hyperemesis syndrome: (3) Hyperlipemia, mixed: (4) Metabolic acidosis: Plan Hyperglycemia, ? Anion gap 24, bicarb 16, ketones within normal limits, ? Currently alert awake, following all commands nausea under control , plan ? Monitor blood sugars closely, ? Every 2 hours blood sugars, repeat BMP, 1 g mag, ? Normal saline 125 cc an hour, ? Continue with subcu Lantus ? Moderate sliding scale, ? Continue clear liquids for now ? Marijuana cyclic vomiting syndrome, Reglan for nausea, ? Continue to monitor blood sugars closely, ? Serial EKGs troponins continue telemetry monitoring, ? Urinalysis, serum drug screen, Attestations Medical Necessity Statement*: Patient requires hospitalization for hyperglycemia, cyclic vomiting syndrome, increased anion gap, ketones negative, outpatient with observation Diagnoses Type 1 diabetes E10.9 Cannabinoid hyperemesis syndrome R11.2; F12.90 Hyperlipemia, mixed E78.2 Metabolic acidosis E87.2
[2023-08-11] MEDS: pantoprazole 40 mg SDV IVP (16:11)
[2023-08-11] MEDS: sodium chloride 0.9% 1,000 ML 125 ML IV (16:16)
[2023-08-11] MEDS: enoxaparin 40 mg/0.4 mL Syringe SUBCUT (16:17)
[2023-08-11] MEDS: lidocaine 2% viscous 15 ML, aluminum-mag hydrox-simethicon 30 ML, sucralfate oral liq 1 GM PO (16:18)
[2023-08-11] MEDS: insulin glargine 100 units/1 mL 10 UNIT SUBCUT (16:23)
--- NOTE | 2023-08-11 16:25 | ECG_ITS ---
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 Measurements Intervals [place] Rate: 108 P: 75 KS: 127 QRS: 78 QRSD: 83 T: 60 QT: 319 QTc: 428 Interpretive Statements SINUS TACHYCARDIA ABNORMAL RHYTHM ECG Compared to ECG 10/01/2022 07:53:14 Sinus rhythm no longer present Electronically Signed On 08-12-2023 15:57:55 RECONSTRUCTIVE SURGEON by Zuleyma Llanos M.D. [id number]
[2023-08-11] MEDS: magnesium sulfate premix 1 GM/100 ML PIGGYBACK IV (16:28)
[2023-08-11 16:44] LABS: Glucose Point of Care 461 mg/dL (70-110)
[2023-08-11 17:00] LABS: Estmated Average Glucose 272; Hemoglobin A1C 11.1 % (4.0-6.0)
[2023-08-11] MEDS: insulin lispro 100 unit/1 mL SUBCUT (17:06)
[2023-08-11 17:09] LABS: Lactic Sepsis W/Reflex 3.5 mmol/L (0.5-2.2); Troponin(5th) Baseline 21 ng/L (0-15)
[2023-08-11 17:15] LABS: Charge for UA Resulting for Rev
[2023-08-11 17:22] LABS: Add Urine Microscopic? NO; Bilirubin Urine Neg (Negative); Blood Urine Neg (Negative); Glucose Urine UA 4+ (Normal); Ketones Urine 2+ (Negative); Leukocyte Esterase Urine Negative (Negative); Nitrate Urine Negative (Negative); Protein Urine Neg (Negative); Urine Appearance Clear (CLEAR); Urine Color Light yellow (Yellow); Urobilinogen Urine Norm (Negative); pH Urine 5 (5-7)
[2023-08-11 17:27] LABS: Procalcitonin 0.88 ng/mL (0-0.5); Thyroid Stimulating Hormone 0.81 uIU/mL (0.27-4.20)
[2023-08-11 17:31] LABS: Amphetamines Screen Urine Negative (Negative); Barbiturates Screen Urine Negative (Negative); Benzodiazepines Screen Urine Negative (Negative); Cocaine Screen Urine Negative (Negative); Opiate Screen Urine Negative (Negative); PCP Screen Urine Negative (Negative); THC Screen Urine Positive (Negative)
[2023-08-11 17:38] LABS: Anion Gap 35.7 (5-19); Blood Urea Nitrogen 29 mg/dL (6-20); Calcium 8.7 mg/dL (8.5-10.5); Chloride 97 mmol/L (98-107); Chol HDL Ratio 2.98 mg/dL (1.0-5.00); Cholesterol 137 mg/dL (0-200); Glomerular Filtration Rate 66.7 mL/min (90-130); HDL Cholesterol 46 mg/dL (60-100); LDL Cholesterol Calculated 79 mg/dL (50-129); LDL HDL Ratio 1.72 RATIO (0.00-3.22); Osmolality Calculated 308 mOsm/kg (285-295); Potassium 5.7 mmol/L (3.5-5.1); Sodium 134 mmol/L (136-145); Triglycerides 58 mg/dL (0-150)
--- NOTE | 2023-08-11 17:59 | ECG_ITS ---
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 Measurements Intervals [place] Rate: 117 P: 75 ID: 120 QRS: 70 QRSD: 84 T: 50 QT: 297 QTc: 415 Interpretive Statements SINUS TACHYCARDIA ABNORMAL RHYTHM ECG Compared to ECG 08/11/2023 16:25:08 No significant changes Electronically Signed On 08-12-2023 16:13:55 VEHICLE FARE COLLECTOR by Zuleyma Llanos M.D. [id number]
[2023-08-11 18:10] LABS: Carbon Dioxide 7 mmol/L (22-29); Glucose 536 mg/dL (65-115)
[2023-08-11 18:19] LABS: Glucose Point of Care 541 mg/dL (70-110)
[2023-08-11] MEDS: insulin lispro 100 unit/1 mL 15 UNIT SUBCUT (18:23)
[2023-08-11 18:32] LABS: Reflex Lactate Order REFLEX LACTIC ORDERD
[2023-08-11] MEDS: sodium bicarbonate 8.4% 1 mEq/mL 50mL Syr 50 MEQ IVP (18:34)
[2023-08-11 19:04] LABS: Troponin 5 2HR 25.41 ng/L (0-15); Troponin 5 2HR Delta 4.41 ABS# (0-10)
[2023-08-11 19:18] LABS: Glucose Point of Care 412 mg/dL (70-110)
--- NOTE | 2023-08-11 19:19 | PC.NURSE ---
Updated mother on pts progress.
[2023-08-11 19:31] LABS: Glucose Point of Care 408 mg/dL (70-110)
[2023-08-11 19:52] LABS: Lactic Acid level (Lactate) 2.2 mmol/L (0.5-2.2)
[2023-08-11 19:54] LABS: Ketone (Acetest) Serum Negative (Negative)
--- NOTE | 2023-08-11 20:34 | W.PM.EVENTAC ---
Event Note Event Note: Labs follow-up Dr. Mckeon signed out to me to watch his blood sugar for DKA Patient is acidotic, Hyperglycemia High anion gap Transferred to ICU start DKA protocol Will start normal saline with potassium supplementation at lower dose Start bicarb as well for severe acidosis Will keep patient n.p.o.
[2023-08-11 20:38] LABS: Glucose Point of Care 360 mg/dL (70-110)
[2023-08-11 21:14] LABS: Glucose Point of Care 328 mg/dL (70-110)
[2023-08-11 21:32] LABS: Anion Gap 24.3 (5-19); Blood Urea Nitrogen 25 mg/dL (6-20); Carbon Dioxide 12 mmol/L (22-29); Chloride 99 mmol/L (98-107); Glomerular Filtration Rate 90.3 mL/min (90-130); Glucose 334 mg/dL (65-115); Osmolality Calculated 289 mOsm/kg (285-295); Potassium 4.3 mmol/L (3.5-5.1); Sodium 131 mmol/L (136-145)
--- NOTE | 2023-08-11 21:38 | PC.NURSE ---
Report called to Bill LYN in ICU
--- NOTE | 2023-08-11 21:59 | ECG_ITS ---
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 Measurements Intervals [place] Rate: 107 P: 68 MD: 132 QRS: 73 QRSD: 84 T: 60 QT: 316 QTc: 422 Interpretive Statements SINUS TACHYCARDIA ABNORMAL RHYTHM ECG Compared to ECG 08/11/2023 18:02:20 No significant changes Electronically Signed On 08-12-2023 16:15:59 LIFE ADVISOR by Zuleyma Llanos M.D. [id number]
[2023-08-11 22:27] LABS: Glucose Point of Care 286 mg/dL (70-110)
[2023-08-11 23:29] LABS: Troponin 5 6HR 31.75 ng/L (0-15); Troponin 5 6HR Delta 10.75 ng/L (0-12)
[2023-08-11] MEDS: sodium chlor 0.9% + KCl 20 mEq 20 MEQ/1,000 ML BAG 125 MEQ IV (23:39)
[2023-08-11] MEDS: sodium bicarbonate 150 MEQ in dextrose 5% 1,000 ML 100 MEQ IV (23:39)
[2023-08-11] MEDS: insulin regular-human 250 UNIT in sodium chloride 0.9% 250 ML 6.57 UNIT IV (23:41)
[2023-08-11 23:54] LABS: Glucose Point of Care 277 mg/dL (70-110)
[2023-08-12] VITALS (20 sets, daily range): BP systolic 73–109; BP diastolic 43–57; PULSE 95–126; TEMP 36.8; O2SAT 95–100
[2023-08-12 01:00] LABS: Glucose Point of Care 324 mg/dL (70-110)
[2023-08-12 01:25] LABS: Anion Gap 23.6 (5-19); Blood Urea Nitrogen 19 mg/dL (6-20); Carbon Dioxide 12 mmol/L (22-29); Chloride 101 mmol/L (98-107); Glomerular Filtration Rate 116.9 mL/min (90-130); Glucose 334 mg/dL (65-115); Osmolality Calculated 289 mOsm/kg (285-295); Potassium 4.6 mmol/L (3.5-5.1); Sodium 132 mmol/L (136-145)
[2023-08-12 01:56] LABS: Glucose Point of Care 286 mg/dL (70-110)
[2023-08-12 03:05] LABS: Glucose Point of Care 244 mg/dL (70-110)
[2023-08-12] MEDS: dextrose 5%-sod chloride 0.9% 1,000 ML 75 ML IV (03:52)
[2023-08-12 04:01] LABS: Glucose Point of Care 204 mg/dL (70-110)
[2023-08-12 05:04] LABS: Glucose Point of Care 186 mg/dL (70-110)
[2023-08-12 05:40] LABS: Basophils % 0.2 %; Hematocrit 34.1 % (37-53); Lymphocytes # 1.1 10^3/uL (0.8-4.8); Mean Corpuscular HGB Conc 34.6 g/dL (30-55); Mean Corpuscular Volume 89.5 fl (82-101); Mean Platelet Volume 9.8 fL (7.4-10.4); Neutrophils # 10.14 10^3/uL (1.8-7.7); Neutrophils % 82.5 %; Nucleated Red Blood Cells % 0 %; Platelet Count 188 10^3/cmm (157-399); Red Blood Count 3.81 10^6/uL (3.85-5.65); Red Cell Distribution Width 12.3 % (12.1-15.1); White Blood Count 12.28 10^3/uL (3.29-11.43)
[2023-08-12 05:55] LABS: Alanine Aminotransferase 24 U/L (0-41); Albumin Level 3.3 g/dL (3.5-5.2); Alkaline Phosphatase 41 U/L (40-130); Anion Gap 13.3 (5-19); Aspartate Amino Transferase 23 U/L (0-40); Blood Urea Nitrogen 14 mg/dL (6-20); Calcium 7.1 mg/dL (8.5-10.5); Carbon Dioxide 20 mmol/L (22-29); Chloride 106 mmol/L (98-107); Globulin 1.7 g/dL (1.3-4.6); Glucose 317 mg/dL (65-115); Magnesium 1.8 mg/dL (1.7-2.3); Osmolality Calculated 293 mOsm/kg (285-295); Phosphorus 1.7 mg/dL (2.5-4.5); Potassium 4.3 mmol/L (3.5-5.1); Sodium 135 mmol/L (136-145); Total Bilirubin 0.6 mg/dL (0.15-1.2)
[2023-08-12 06:03] LABS: Glucose Point of Care 186 mg/dL (70-110)
--- NOTE | 2023-08-12 08:39 | PC.NURSE ---
Patient reported wanting to leave AMA, DR. Mckeon at bedside and educated patient, patient still wanted to leave. IVs D/C, left AMA transported by mother
--- NOTE | 2023-08-12 09:23 | P.DS_ITS ---
Discharge Providers Date of Admission: 08/11/23 13:31 Date of Discharge: August 12, 2023 Attending Provider at Admission: Randy Mckeon MD Attending Provider at Discharge: Randy Mckeon MD Primary Care Provider: MRAGE Castellano Diagnoses at Discharge Discharge Diagnosis (1) Type 1 diabetes: Status: Acute Permanent problem details: With recurrent admissions for DKA, severe (2) Cannabinoid hyperemesis syndrome: Status: Acute (3) Hyperlipemia, mixed: Status: Acute (4) Metabolic acidosis: Status: Resolved Reason for Visit Reason for Visit: DKA Hospital Course Hospital Course Salvatore Ott is a 28 year old male with a past medical history of poorly controlled type 1 diabetes, multiple hospitalizations for diabetic ketoacidosis, current history of marijuana use, who presents [facility] as his insulin pump become dislodged, he had fluctuating blood sugars, difficult to control, with nausea, vomiting, no diarrhea, no dysuria, hematuria, no cough, no fevers, no abdominal pain, no flank pain, denies IV drug use, does report merle zay use within 48 hours ago, history of marijuana related cyclic vomiting syndrome in the emergency room he was found to have increased anion gap, at 24.4, bicarb at 16, serum ketones were negative, blood sugar was 375, as you given fluids, his nausea is under control. Currently seen on [facility], alert oriented x 3, is able to walk to the bathroom, know that his kidney disease, nausea, vomiting. Advised that we can watch blood sugars closely he is insulin pump is now currently working its dislodged so we we will give him subcutaneous insulin. Watch it closely, repeat BMP watch his anion gap, and his serum bicarb, he is agreeable. In the emergency room he complained of chest pain, had a CT which was his normal limits, currently denies active chest pain Patient was admitted to [facility] due to elevated blood sugars, ketones were negative, with increased anion gap, he was monitored on medical floors, however due to increased anion gap, decreasing bicarb increasing blood sugars, he is moved down to the ICU for concerns for diabetic ketoacidosis. He was monitored in the ICU, received diabetic ketoacidosis protocol, started on insulin drip, kept n.p.o., for acidemia, increased anion gap, this morning he was seen, pH within normal limits, anion gap was closed at 13.3, bicarb 20 potassium 4.3, sodium 135, plans were to discontinue insulin drip, transition to Lantus and subcu insulin. However he was seen early in the morning on 08/12/2023, adamant about leaving he actually walked outside his ICU room, on insulin drip, demanding to leave the hospital, I was able to see him, advised him to stay in the hospital as he remains on the insulin drip, I would recommend for him to transition slowly off the insulin drip, overlap him with the Lantus, monitor his blood sugars on subcu insulin, I am worried about him going back into diabetic ketoacidosis, worried about hypoglycemia, are worried about acidemia, I am worried about his morbidity or mortality. However he was adamant about leaving the hospital, advised him that if he leaves hospital will be AGAINST MEDICAL ADVICE. I discussed the morbidity and mortality associate with leaving the hospital AGAINST MEDICAL ADVICE, especially as he is still on the insulin drip, he voiced understanding, family members at bedside, nursing staff at bedside, he voiced understanding, all questions answered, again was adamant about leaving the hospital AGAINST MEDICAL ADVICE. I discussed with him again the morbidity and mortality associated with his current clinical condition, he is adamant about going home. I have advised nursing staff to stop the insulin drip, I advised him to monitor his blood sugars closely at home, he is he tells me as soon as he gets home he is getting put back on his insulin pump, advised h im to monitor his blood sugars every hour for the next 6 hours, monitor his blood sugars quite closely, if any recurrent nausea vomiting to go to the emergency room. Discussed with him again the morbidity mortality associate with diabetic ketoacidosis. He voiced understanding, all questions answered, left AGAINST MEDICAL ADVICE. I advised him to abstain from marijuana use, due to concerns for marijuana cyclic vomiting syndrome Physical Exam Const: COMMON NORMALS: no acute distress and patient oriented x3 Neck/C-Spine: COMMON NORMALS: no JVD Resp: COMMON NORMALS: normal respiratory effort, No retractions, No use of accessory muscles and clear to auscultation bilaterally AUSCULTATION: clear to auscultation bilaterally Cardio: COMMON NORMALS: no JVD, regular rate, regular rhythm, S1 normal heart sound present and S2 normal heart sound present RATE: regular rate RHYTHM: regular rhythm HEART SOUNDS: S1 normal heart sound present and S2 normal heart sound present GI: COMMON NORMALS: Normal to inspection, nondistended, normoactive bowel sounds present and non-tender Extremity: COMMON NORMALS: no pedal edema Neuro: COMMON NORMALS: patient oriented x3 Psych: COMMON NORMALS: mental status grossly normal Discharge Data Studies Completed and Pending Completed Studies During Hospitalization Category Date Time Status CT angio chest PE protcl [id number] Stat Cat Scan 08/11/23 13:34 Completed XR chest 1V portable [id number] Stat Exams 08/11/23 12:33 Completed Pending at discharge Category Date Time Status Complete Blood Count w/Auto AM LABS Lab 08/13/23 04:00 Ordered Complete Blood Count w/Auto AM LABS Lab 08/14/23 04:00 Ordered Comprehensive Metabolic Panel AM LABS Lab 08/13/23 04:00 Ordered Comprehensive Metabolic Panel AM LABS Lab 08/14/23 04:00 Ordered Magnesium AM LABS Lab 08/13/23 04:00 Ordered Magnesium AM LABS Lab 08/14/23 04:00 Ordered Phosphorus AM LABS Lab 08/13/23 04:00 Ordered Phosphorus AM LABS Lab 08/14/23 04:00 Ordered Laboratory Results WBC 12.28 10^3/uL (3.29-11.43) H 08/12/23 05:25 RBC 3.81 10^6/uL (3.85-5.65) L 08/12/23 05:25 Hgb 11.80 g/dL (11.27-16.99) 08/12/23 05:25 Hct 34.1 % (37-53) L D 08/12/23 05:25 MCV 89.5 fl (82-101) D 08/12/23 05:25 MCH 31.0 pg (27-33) 08/12/23 05:25 MCHC 34.6 g/dL (30-55) D 08/12/23 05:25 RDW 12.3 % (12.1-15.1) 08/12/23 05:25 Plt Count 188 10^3/cmm (157-399) 08/12/23 05:25 MPV 9.8 fL (7.4-10.4) 08/12/23 05:25 Neut % (Auto) 82.5 % 08/12/23 05:25 Lymph % (Auto) 9.0 % 08/12/23 05:25 Charles % (Auto) 8.0 % 08/12/23 05:25 Eos % (Auto) 0.0 % 08/12/23 05:25 Baso % (Auto) 0.2 % 08/12/23 05:25 Neut # (Auto) 10.14 10^3/uL (1.8-7.7) H 08/12/23 05:25 Lymph # (Auto) 1.1 10^3/uL (0.8-4.8) 08/12/23 05:25 Charles # (Auto) 1.0 10^3/uL (0.2-0.9) H 08/12/23 05:25 Eos # (Auto) 0.0 10^3/uL (0.0-0.8) 08/12/23 05:25 Baso # (Auto) 0.0 10^3/uL (0.0-0.1) 08/12/23 05:25 Nucleated RBC % (auto) 0 % 08/12/23 05:25 Nucleated RBCs # 0.0 /100WBC 08/12/23 05:25 Specimen Type Arterial 08/11/23 08:35 Sample Site Radial, left 08/11/23 08:35 ABG pH 7.35 (7.35-7.45) 08/11/23 08:35 ABG pCO2 27.8 mmHg (35-45) L 08/11/23 08:35 ABG pO2 99.5 mmHg (80.0-100.0) 08/11/23 08:35 ABG PO2/FiO2 Ratio 0 08/11/23 08:35 ABG HCO3 15.4 mmol/L (22-26) L 08/11/23 08:35 ABG O2 Saturation 97.8 08/11/23 08:35 ABG Base Excess -8.5 mmol/L (-2.0-2.0) L 08/11/23 08:35 Hasmukh Test Pos 08/11/23 08:35 A-a O2 Gradient 1.9 mmHg (5-10) L 08/11/23 08:35 Hematocrit 49.9 % (42-52) 08/11/23 08:35 Hgb O2 Saturation 96.7 % (95-100) 08/11/23 08:35 Carboxyhemoglobin 0.9 %THgb (0.4-20.1) 08/11/23 08:35 Methemoglobin 0.2 % (0.4-1.5) L 08/11/23 08:35 Total Hemoglobin 16.3 g/dL (14-18) 08/11/23 08:35 Sodium 135.0 mmol/L (131-143) 08/11/23 08:35 Potassium 4.3 mmol/L (3.5-5.0) 08/11/23 08:35 Glucose 416.0 mg/dL (70-115) H 08/11/23 08:35 Ionized Calcium 1.2 mmol/L (1.1-1.4) 08/11/23 08:35 O2 Delivery Device None 08/11/23 08:35 FiO2 21.0 % 08/11/23 08:35 Medical Transport Specialist ID glc 08/11/23 08:35 Sodium 135 mmol/L (136-145) L 08/12/23 05:25 Potassium 4.3 mmol/L (3.5-5.1) 08/12/23 05:25 Chloride 106 mmol/L (98-107) 08/12/23 05:25 Carbon Dioxide 20 mmol/L (22-29) L 08/12/23 05:25 Anion Gap 13.3 (5-19) 08/12/23 05:25 BUN 14 mg/dL (6-20) 08/12/23 05:25 Creatinine 0.5 mg/dL (0.7-1.2) L 08/12/23 05:25 GFR Calculation 201.0 mL/min (90-130) H 08/12/23 05:25 Glucose 317 mg/dL (65-115) H 08/12/23 05:25 POC Glucose 186 mg/dL (70-110) H 08/12/23 05:58 Estimat Average Glucose 272 08/11/23 16:40 Hemoglobin A1c 11.1 % (4.0-6.0) H 08/11/23 16:40 Calculated Osmolality 293 mOsm/kg (285-295) 08/12/23 05:25 Lactic Acid 3.5 mmol/L (0.5-2.2) H 08/11/23 16:40 Lactic Acid (Sepsis) 2.2 mmol/L (0.5-2.2) 08/11/23 19:29 Calcium 7.1 mg/dL (8.5-10.5) L 08/12/23 05:25 Phosphorus 1.7 mg/dL (2.5-4.5) L 08/12/23 05:25 Magnesium 1.8 mg/dL (1.7-2.3) 08/12/23 05:25 Total Bilirubin 0.6 mg/dL (0.15-1.2) 08/12/23 05:25 AST 23 U/L (0-40) 08/12/23 05:25 ALT 24 U/L (0-41) 08/12/23 05:25 Alkaline Phosphatase 41 U/L (40-130) 08/12/23 05:25 Troponin T Baseline 21 ng/L (0-15) H 08/11/23 16:40 Troponin T 120 Minute 25.41 ng/L (0-15) H 08/11/23 18:40 Delta Troponin T 4.41 ABS# (0-10) 08/11/23 18:40 Troponin T Hi Sens 6Hr 31.75 ng/L (0-15) H 08/11/23 23:03 Troponin T Hi Sens 6Hr Delta 10.75 ng/L (0-12) 08/11/23 23:03 C-Reactive Protein 3.0 mg/L (0.0-4.9) 08/11/23 16:40 Total Protein 5.0 g/dL (6.6-8.7) L D 08/12/23 05:25 Albumin 3.3 g/dL (3.5-5.2) L 08/12/23 05:25 Globulin 1.7 g/dL (1.3-4.6) 08/12/23 05:25 Triglycerides 58 mg/dL (0-150) 08/11/23 16:40 Cholesterol 137 mg/dL (0-200) 08/11/23 16:40 LDL Cholesterol, Calc 79 mg/dL (50-129) 08/11/23 16:40 HDL Cholesterol 46 mg/dL (60-100) L 08/11/23 16:40 LDL/HDL Ratio 1.72 RATIO (0.00-3.22) 08/11/23 16:40 Cholesterol/HDL Ratio 2.98 mg/dL (1.0-5.00) 08/11/23 16:40 Lipase 17 U/L (13-60) 08/11/23 08:30 Procalcitonin 0.88 ng/mL (0-0.5) H 08/11/23 16:40 TSH 0.81 uIU/mL (0.27-4.20) 08/11/23 16:40 Urine Color Light yellow (Yellow) 08/11/23 17:03 Urine Appearance Clear (CLEAR) 08/11/23 17:03 Urine pH 5 (5-7) 08/11/23 17:03 Ur Specific [place] 1.020 (1.005-1.030) 08/11/23 17:03 Urine Protein Neg (Negative) 08/11/23 17:03 Urine Glucose (UA) 4+ (Normal) H 08/11/23 17:03 Urine Ketones 2+ (Negative) H 08/11/23 17:03 Urine Blood Neg (Negative) 08/11/23 17:03 Urine Nitrate Negative (Negative) 08/11/23 17:03 Urine Bilirubin Neg (Negative) 08/11/23 17:03 Urine Urobilinogen Norm mg/dL (Negative) 08/11/23 17:03 Ur Leukocyte Esterase Negative (Negative) 08/11/23 17:03 Urine Opiates Screen Negative ng/mL (Negative) 08/11/23 17:03 Ur Barbiturates Screen Negative ng/mL (Negative) 08/11/23 17:03 Ur Phencyclidine Scrn Negative ng/mL (Negative) 08/11/23 17:03 Ur Amphetamines Screen Negative ng/mL (Negative) 08/11/23 17:03 U Benzodiazepines Scrn Negative ng/mL (Negative) 08/11/23 17:03 Urine Cocaine Screen Negative ng/mL (Negative) 08/11/23 17:03 U Marijuana (THC) Screen Positive ng/mL (Negative) H 08/11/23 17:03 Serum Ketones Negative (Negative) 08/11/23 19:29 Vitals Last Vital Signs Temp 98.3 F 08/12/23 00:00 Pulse 95 08/12/23 05:29 Resp 15 08/11/23 19:22 BP 98/48 08/12/23 08:00 Pulse Ox 97 08/12/23 08:00 O2 Del Method Room Air 08/12/23 04:00 Discharge Plan Discharge Patient Disposition: Left Against Medical Advice Condition: Stable Prescriptions: No Action (DME) Omnipod 5 G6 Intro Kit (Gen 5) Cartridge See Rx Instructions .ROUTE .MEDSUPPLY Qty: 1 0RF Rx Instructions: As directed (DME) Dexcom G6 Cuff Knitter Misc See Rx Instructions .ROUTE .MEDSUPPLY Qty: 1 0RF Rx Instructions: takes blood sugar (DME) Dexcom G6 Sensor Device See Rx Instructions .ROUTE .MEDSUPPLY Qty: 9 3RF Rx Instructions: Change every 10 days (DME) Dexcom G6 Transmitter Device See Rx Instructions .ROUTE .MEDSUPPLY Qty: 3 3RF Rx Instructions: change every 90 days (DME) strips See Rx Instructions .Route .MEDSUPPLY Qty: 1 3RF Rx Instructions: Check blood sugars 3 times daily, with meals, #200, 3 refills (DME) lancets Misc See Rx Instructions .Route Qty: 200 3RF Rx Instructions: check BS, TID with meals insulin lispro [Humalog KwikPen Insulin] 100 unit/mL insulin pen See Rx Instructions SUBCUT TID Qty: 27 2RF Rx Instructions: INJECT UNDER SKIN THREE TIMES DAILY BEFORE MEALS, BASED ON SLIDING SCALE PROVIDED- BACKUP IF PUMP NOT WORKING subcutaneously Levemir FlexPen 100 unit/mL (3 mL) insulin pen 30 unit SUBCUT BID 30 Days Qty: 18 2RF Rx Instructions: INJECT 30 UNITS UNDER SKIN TWICE DAILY (DME) Omnipod 5 G6 Pods (Gen 5) Cartridge See Rx Instructions .ROUTE .COMPLEX Qty: 15 3RF Dose Instruction: CHANGE POD EVERY 3 DAYS Rx Instructions: CHANGE POD EVERY 3 DAYS insulin lispro 100 unit/mL solution See Rx Instructions .ROUTE .COMPLEX 90 Days Qty: 30 0RF Dose Instruction: USE 150 UNITS DAILY DIRECTED VIA PUMP Rx Instructions: USE 150 UNITS DAILY DIRECTED VIA PUMP (DME) blood sugar diagnostic Strip See Rx Instructions .Route Qty: 100 0RF Rx Instructions: As directed (DME) Blood Glucose Test Strip See Rx Instructions .Route Qty: 100 0RF Rx Instructions: As directed (DME) blood-glucose meter [Blood Glucose Monitoring] Kit See Rx Instructions .Route Qty: 1 0RF Rx Instructions: As directed (DME) strips See Rx Instructions .Route .MEDSUPPLY Qty: 200 3RF Rx Instructions: Check blood sugars 3 times daily, before meals (DME) lancets See Rx Instructions .Route .MEDSUPPLY Qty: 200 1RF Rx Instructions: Check blood sugars 3 times daily, before meals multivitamin Tablet 1 tab PO DAILY Referrals: Earlene Titus FNP-C [Primary Care Provider] - Patient Instructions: Pain Management Activity Restrictions/Additional Instructions: Thank you for choosing [facility] for your healthcare needs today. Please realize this is an emergency room and that we are providing you with a medical screening exam and this may not be complete and all inclusive of all the testing and or work up that you may need to determine your ailment or severity of your illness. It is very important that you follow up as instructed or that you return to the Emergency Department should you have concerns or if your condition changes or worsens in any way. You are seen today for persistent nausea and vomiting. Evaluation for DKA was negative suspect this may have been related to medical marijuana use. He did respond well to the medications given. Avoid medical marijuana increase fluid intake monitor blood sugars closely follow-up with your doctor within the next 1 to 2 days. Discharge Attestations Time Spent in Discharge Care*: greater than 30 min Status at Discharge: Cognitive status at discharge: cognitively intact , Behavioral status at discharge: cooperative , Quality Metrics Clinical Quality Measures [ No reported AMI, CVA or VTE this stay] Coding Level of Care Code 59600 Total time (in minutes) for Discharge: 45 Diagnoses Type 1 diabetes E10.9 Cannabinoid hyperemesis syndrome R11.2; F12.90 Hyperlipemia, mixed E78.2 Metabolic acidosis E87.2
== END 2023-08-12 08:30 | disposition left against medical advice (07) ==
LOC: ER 12:52 → MEDSURG 18:24 → ICU 22:13
PROVIDERS: Internal Medicine; Admitting Provider Family Medicine; Emergency Provider Family Medicine; PCP Nurse Practitioner Family; Visit Provider Family Medicine
DX: E10.9 Type 1 diabetes mellitus without complications (principal); R11.2 Nausea with vomiting, unspecified; F12.90 Cannabis use, unspecified, uncomplicated; E78.2 Mixed hyperlipidemia; R00.0 Tachycardia, unspecified; Z79.4 Long term (current) use of insulin; F17.200 Nicotine dependence, unspecified, uncomplicated
CPT/HCPCS: 36415; 36416; 36600; 71045; 71275; 80048; 80051; 80053; 80061; 80306; 81003; 82009; 82330; 82805; 82962; 83036; 83605; 83690; 83735; 84100; 84145; 84443; 84484; 85025; 86140; 93005; 96365; 96366; 96367; 96372; 96375; 99285; C9113; G0378; J1630; J1650; J1815; J2765; J3475; J3480; J7030; J7042; J7050; J7070; Q9967

== ENCOUNTER 2023-11-28 13:35 | Emergency (ER) | payer MEDICARE, MEDICAID, SELFPAY ==
[2023-11-28 13:38] VITALS: BP 121/72; PULSE 101; RESP 18; TEMP 36.8; O2SAT 99; BMI 23.3
--- NOTE | 2023-11-28 13:38 | XRR_ITS ---
PROCEDURE INFORMATION: Exam: XR Chest Exam date and time: 11/28/2023 1:41 PM Age: 28 years old Clinical indication: Cough and dyspnea; Additional info: Dyspnea/cough TECHNIQUE: Imaging protocol: Radiologic exam of the chest. Views: 1 view. COMPARISON: CT angio chest PE protcl [id number] 08/11/2023 1:50 PM FINDINGS: Lungs: Unremarkable. No consolidation. Pleural spaces: Unremarkable. No pleural effusion. No pneumothorax. Heart/Mediastinum: Unremarkable. No cardiomegaly. Bones/joints: Unremarkable. XR/XR chest 1V portable [id number] IMPRESSION: No acute findings.
--- NOTE | 2023-11-28 13:46 | ECG_ITS ---
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 Measurements Intervals [place] Rate: 94 P: 69 NV: 121 QRS: 72 QRSD: 83 T: 53 QT: 341 QTc: 427 Interpretive Statements SINUS RHYTHM POSSIBLE LEFT ATRIAL ENLARGEMENT [-0.1mV P-WAVE IN V1/V2] POSSIBLE RIGHT VENTRICULAR CONDUCTION DELAY [RSR (QR) IN V1/V2] Compared to ECG 08/11/2023 22:54:31 Sinus tachycardia no longer present Electronically Signed On 11-28-2023 21:50:29 CDT by Real Cerna M.D. [email or web address]
[2023-11-28 13:53] LABS: Glucose Point of Care 61 mg/dL (70-110)
[2023-11-28 13:53] LABS: ABG PCO2 40.1 mmHg (35-45); ABG PH Result 7.42 (7.35-7.45); Alveolar-Arterial Oxygen Gradi 1.6 mmHg (5-10); Base Excess ABG 1.1 mmol/L (-2.0-2.0); Blood Gas Allen Test Pos; Blood Gas Operator Identificat WALCI; Blood Gas Sample Site Radial, right; Blood Gas Sample Type Arterial; Carboxyhemoglobin 1.5 %THgb (0.4-20.1); HCO3 ABG 25.8 mmol/L (22-26); HGB O2 Sat 95.6 % (95-100); Ionized Calcium Level - ABG 1.3 mmol/L (1.1-1.4); Methemoglobin 0.6 % (0.4-1.5); Oxygen Device ROOM AIR; Oxygen Saturation ABG 97.7; PO2 ABG 84.2 mmHg (80.0-100.0); PO2 FiO2 Ratio Arterial Blood 0; Potassium Level - ABG 3.5 mmol/L (3.5-5.0); Total Hemoglobin 17.3 g/dL (14-18)
[2023-11-28] MEDS: dextrose 10% 250 ML 1000 ML IV (14:08)
[2023-11-28 14:15] LABS: Basophils % 0.2 %; Hematocrit 49.7 % (37-53); Lymphocytes # 0.7 10^3/uL (0.8-4.8); Lymphocytes % 7.8 %; Mean Corpuscular HGB Conc 34.6 g/dL (30-55); Mean Corpuscular Volume 89.7 fl (82-101); Mean Platelet Volume 9.7 fL (7.4-10.4); Monocytes # 0.3 10^3/uL (0.2-0.9); Monocytes % 2.7 %; Neutrophils # 8.11 10^3/uL (1.8-7.7); Nucleated Red Blood Cells % 0 %; Platelet Count 262 10^3/cmm (157-399); Red Blood Count 5.54 10^6/uL (3.85-5.65); White Blood Count 9.12 10^3/uL (3.29-11.43)
--- NOTE | 2023-11-28 14:22 | ED_ITS ---
HPI - General Adult 2 General: Chief complaint: General Medical Stated complaint: N/V Time Seen by Provider: 11/28/23 13:38 Source: patient Mode of arrival: ambulatory History of Present Illness: 28-year-old male presents emergency room via EMS with complaints of low blood sugars. Said this morning it was around 400. He has had problems with DKA multiple times in the past currently he is on a insulin pump and we have seen him far less often since he got on this. He denies any fever sweats or chills. He has been using his pump regularly. No issues with the pump. No recent illness fever sweats or chills EMS gave for Zofran and route and nausea has improved however his blood sugar was below 100. Onset (ago): minute(s) Associated symptoms: Reports confusion; Deny chest pain, cough, diaphoresis, decreased appetite, dyspnea, fevers/chills, headache(s), malaise, nausea, rash, palpitations, seizures, short of breath, syncope, vomiting or weakness Treatments prior to arrival: none Review of Systems 2 Const: Denies: fever(s), chills, malaise or diaphoresis Card: Denies: chest pain, palpitations or syncope Resp: Denies: dyspnea GI: Denies: abdominal pain, nausea or vomiting : Denies: dysuria, urinary frequency or urinary urgency Musc: Denies: neck pain or back pain Skin/Breast: Denies: rash Neuro: Reports: confusion; Denies: headache(s) PFSH ED 2 PFSH: Medical History Abdominal pain High anion gap metabolic acidosis DKA (diabetic ketoacidosis) Diabetic keto-acidosis Hyperglycemia Nausea & vomiting Noncompliance with diabetes treatment Methamphetamine abuse DKA (diabetic ketoacidoses) History of pancreatitis Long-term insulin use Hypoglycemia due to insulin Uncontrolled type 1 diabetes mellitus Pancreatitis Marijuana use GERD (gastroesophageal reflux disease) Type 1 diabetes With recurrent admissions for DKA, severe Surgical History No pertinent past surgical history Family History Other Diabetes Social History Smoking and tobacco/nicotine status: current every day tobacco/nicotine user Alcohol intake: never Substance/Drug Use: former Date of last use: Marijuana abuse Lives independently: Yes Household members: family Marital status: Single Current occupational status: disabled Physical Exam 2 Const: COMMON NORMALS: no acute distress GENERAL APPEARANCE: cooperative and comfortable ORIENTATION/CONSCIOUSNESS: Yes awake, Yes oriented to person, Yes oriented to place and Yes oriented to time HENMT: COMMON NORMALS: normocephalic, atraumatic and hearing grossly normal bilaterally HEAD & SCALP: normocephalic and atraumatic Resp: COMMON NORMALS: normal respiratory effort, No retractions, No use of accessory muscles and clear to auscultation bilaterally AUSCULTATION: clear to auscultation bilaterally Cardio: COMMON NORMALS: regular rate, regular rhythm and No murmurs present (Cardio) RATE: regular rate RHYTHM: regular rhythm GI: COMMON NORMALS: Soft to palpation and No hepatosplenomegaly present A USCULTATION: Yes normoactive bowel sounds PALPATION: Yes Soft to palpation, No Tenderness to palpation present (GI), No Guarding due to palpation present (GI) and Yes No hepatosplenomegaly present Extremity: COMMON NORMALS: normal to inspection, capillary refill normal, no clubbing, cyanosis or edema, no calf tenderness and no pedal edema Neuro: SENSORIUM/ORIENTATION: Yes oriented to person, Yes oriented to place and Yes oriented to time Skin: COMMON NORMALS: no rashes or lesions noted GENERAL SKIN EXAM: no rashes or lesions noted Course 2 Vital Signs: Vital signs: Vital Signs Temperature 98.2 F 11/28/23 13:38 Pulse Rate 101 H 11/28/23 13:38 Respiratory Rate 18 11/28/23 14:40 Blood Pressure 113/63 11/28/23 14:40 Pulse Oximetry 95 11/28/23 14:40 Oxygen Delivery Me thod Room Air 11/28/23 14:40 MDM - General Adult Medical Decision Making Patient was able to eat without vomiting. He was also given 250 mL of D10 blood sugars over 200 he is feeling much better no further nausea he is eating and drink without any difficulty will discharge patient home have him continue to watch blood sugar closely. Medical Records I reviewed the patient's medical records. Lab Data I reviewed the patient's lab results. 11/28/23 14:05 11/28/23 14:05 Radiology Impressions Chest X-Ray 11/28/23 13:38 IMPRESSION: No acute findings. Laboratory Results WBC 9.12 10^3/uL (3.29-11.43) 11/28/23 14:05 RBC 5.54 10^6/uL (3.85-5.65) 11/28/23 14:05 Hgb 17.20 g/dL (11.27-16.99) H 11/28/23 14:05 Hct 49.7 % (37-53) 11/28/23 14:05 MCV 89.7 fl (82-101) 11/28/23 14:05 MCH 31.0 pg (27-33) 11/28/23 14:05 MCHC 34.6 g/dL (30-55) 11/28/23 14:05 RDW 12.0 % (12.1-15.1) L 11/28/23 14:05 Plt Count 262 10^3/cmm (157-399) 11/28/23 14:05 MPV 9.7 fL (7.4-10.4) 11/28/23 14:05 Neut % (Auto) 89.0 % 11/28/23 14:05 Lymph % (Auto) 7.8 % 11/28/23 14:05 [place] % (Auto) 2.7 % 11/28/23 14:05 Eos % (Auto) 0.0 % 11/28/23 14:05 Baso % (Auto) 0.2 % 11/28/23 14:05 Neut # (Auto) 8.11 10^3/uL (1.8-7.7) H 11/28/23 14:05 Lymph # (Auto) 0.7 10^3/uL (0.8-4.8) L 11/28/23 14:05 [place] # (Auto) 0.3 10^3/uL (0.2-0.9) 11/28/23 14:05 Eos # (Auto) 0.0 10^3/uL (0.0-0.8) 11/28/23 14:05 Baso # (Auto) 0.0 10^3/uL (0.0-0.1) 11/28/23 14:05 Nucleated RBC % (auto) 0 % 11/28/23 14:05 Nucleated RBCs # 0.0 /100WBC 11/28/23 14:05 Specimen Type Arterial 11/28/23 13:42 Sample Site Radial, right 11/28/23 13:42 ABG pH 7.42 (7.35-7.45) 11/28/23 13:42 ABG pCO2 40.1 mmHg (35-45) 11/28/23 13:42 ABG pO2 84.2 mmHg (80.0-100.0) 11/28/23 13:42 ABG PO2/FiO2 Ratio 0 11/28/23 13:42 ABG HCO3 25.8 mmol/L (22-26) 11/28/23 13:42 ABG O2 Saturation 97.7 11/28/23 13:42 ABG Base Excess 1.1 mmol/L (-2.0-2.0) 11/28/23 13:42 Hasmukh Test Pos 11/28/23 13:42 A-a O2 Gradient 1.6 mmHg (5-10) L 11/28/23 13:42 Hematocrit 53.0 % (42-52) H 11/28/23 13:42 Hgb O2 Saturation 95.6 % (95-100) 11/28/23 13:42 Carboxyhemoglobin 1.5 %THgb (0.4-20.1) 11/28/23 13:42 Methemoglobin 0.6 % (0.4-1.5) 11/28/23 13:42 Total Hemoglobin 17.3 g/dL (14-18) 11/28/23 13:42 Sodium 146.0 mmol/L (131-143) H 11/28/23 13:42 Potassium 3.5 mmol/L (3.5-5.0) 11/28/23 13:42 Glucose 61.0 mg/dL (70-115) L 11/28/23 13:42 Ionized Calcium 1.3 mmol/L (1.1-1.4) 11/28/23 13:42 O2 Delivery Device Room air 11/28/23 13:42 FiO2 21.0 % 11/28/23 13:42 Electronic Equipment Installer ID [place] 11/28/23 13:42 Sodium 142 mmol/L (136-145) 11/28/23 14:05 Potassium 3.5 mmol/L (3.5-5.1) 11/28/23 14:05 Chloride 103 mmol/L (98-107) 11/28/23 14:05 Carbon Dioxide 23 mmol/L (22-29) 11/28/23 14:05 Anion Gap 19.5 (5-19) H 11/28/23 14:05 BUN 16 mg/dL (6-20) 11/28/23 14:05 Creatinine 0.7 mg/dL (0.7-1.2) 11/28/23 14:05 GFR Calculation 136.3 mL/min (90-130) H 11/28/23 14:05 Glucose 68 mg/dL (65-115) 11/28/23 14:05 POC Glucose 212 mg/dL (70-110) H 11/28/23 14:37 Calculated Osmolality 293 mOsm/kg (285-295) 11/28/23 14:05 Calcium 10.0 mg/dL (8.5-10.5) 11/28/23 14:05 Total Bilirubin 0.7 mg/dL (0.15-1.2) 11/28/23 14:05 AST 17 U/L (0-40) 11/28/23 14:05 ALT 20 U/L (0-41) 11/28/23 14:05 Alkaline Phosphatase 62 U/L (40-130) 11/28/23 14:05 Total Protein 8.4 g/dL (6.6-8.7) 11/28/23 14:05 Albumin 4.9 g/dL (3.5-5.2) 11/28/23 14:05 Globulin 3.5 g/dL (1.3-4.6) 11/28/23 14:05 Lipase 10 U/L (13-60) L 11/28/23 14:05 Serum Ketones Negative (Negative) 11/28/23 14:05 All radiology interpretation(s) finalized by discharge Discharge Plan Discharge Patient Disposition: Home Clinical Impression: Hypoglycemia Type 1 diabetes Qualifiers: Diabetes mellitus complication status: without complication Qualified Code(s): E10.9 - Type 1 diabetes mellitus without complications Condition: Stable Prescriptions: No Action (DME) Omnipod 5 G6 Intro Kit (Gen 5) Cartridge See Rx Instructions .[facility] 0RF Rx Instructions: As directed (DME) Dexcom G6 Chief Mechanical Officer Misc See Rx Instructions .ROUTE .MEDSUPPLY Qty: 1 0RF Rx Instructions: takes blood sugar (DME) Dexcom G6 Sensor Device See Rx Instructions .ROUTE .MEDSUPPLY Qty: 9 3RF Rx Instructions: Change every 10 days (DME) Dexcom G6 Transmitter Device See Rx Instructions .ROUTE .MEDSUPPLY Qty: 3 3RF Rx Instructions: change every 90 days (DME) strips See Rx Instructions .Route .MEDSUPPLY Qty: 1 3RF Rx Instructions: Check blood sugars 3 times daily, with meals, #200, 3 refills (DME) lancets Misc See Rx Instructions .Route Qty: 200 3RF Rx Instructions: check BS, TID with meals insulin lispro [Humalog KwikPen Insulin] 100 unit/mL insulin pen See Rx Instructions SUBCUT TID Qty: 27 2RF Rx Instructions: INJECT UNDER SKIN THREE TIMES DAILY BEFORE MEALS, BASED ON SLIDING SCALE PROVIDED- BACKUP IF PUMP NOT WORKING subcutaneously (DME) Omnipod 5 G6 Pods (Gen 5) Cartridge See Rx Instructions .ROUTE .COMPLEX Qty: 15 3RF Dose Instruction: CHANGE POD EVERY 3 DAYS Rx Instructions: CHANGE POD EVERY 3 DAYS insulin lispro 100 unit/mL solution See Rx Instructions .ROUTE .COMPLEX 90 Days Qty: 30 0RF Dose Instruction: USE 150 UNITS DAILY DIRECTED VIA PUMP Rx Instructions: USE 150 UNITS DAILY DIRECTED VIA PUMP (DME) blood sugar diagnostic Strip See Rx Instructions .Route Qty: 100 0RF Rx Instructions: As directed (DME) Blood Glucose Test Strip See Rx Instructions .Route Qty: 100 0RF Rx Instructions: As directed ([facility]) blood-glucose meter [Blood Glucose Monitoring] Kit See Rx Instructions .Route Qty: 1 0RF Rx Instructions: As directed (DME) strips See Rx Instructions .Route .MEDSUPPLY Qty: 200 3RF Rx Instructions: Check blood sugars 3 times daily, before meals (DME) lancets See Rx Instructions .Route .MEDSUPPLY Qty: 200 1RF Rx Instructions: Check blood sugars 3 times daily, before meals mupirocin 2 % ointment 1 applic topical TID PRN (Reason: unknown) Levemir FlexPen 100 unit/mL (3 mL) insulin pen See Rx Instructions .ROUTE .COMPLEX Rx Instructions: 30 units at bedtime when not wearing pump multivitamin Tablet 1 tab PO DAILY Discharge Orders: Discharge ED (Routine); Ordered 11/28/23 Ordered By: Epifanio Thrasher Referrals: Earlene Titus FNP-C [Primary Care Provider] - Discharge Diet: Usual diet Discharge Activity: Increase activity as tolerated Patient Instructions: Hypoglycemia in a Person with Diabetes (ED), Opioid Safety, Pain Management Activity Restrictions/Additional Instructions: Thank you for choosing [facility] for your healthcare needs today. Please realize this is an emergency room and that we are providing you with a medical screening exam and this may not be complete and all inclusive of all the testing and or work up that you may need to determine your ailment or severity of your illness. It is very important that you follow up as instructed or that you return to the Emergency Department should you have concerns or if your condition changes or worsens in any way. You were seen for low blood sugars. Monitor your blood sugars closely throughout the rest of the day review blood sugar logs with your junior sales assistant. Coding Level of Care Code ED Edge Polisher for Maxx Mohr
[2023-11-28 14:32] LABS: Ketone (Acetest) Serum Negative (Negative)
[2023-11-28 14:37] LABS: Alanine Aminotransferase 20 U/L (0-41); Albumin Level 4.9 g/dL (3.5-5.2); Alkaline Phosphatase 62 U/L (40-130); Anion Gap 19.5 (5-19); Aspartate Amino Transferase 17 U/L (0-40); Blood Urea Nitrogen 16 mg/dL (6-20); Carbon Dioxide 23 mmol/L (22-29); Chloride 103 mmol/L (98-107); Creatinine Clr Calc Pharmacy 140.9194; Globulin 3.5 g/dL (1.3-4.6); Glomerular Filtration Rate 136.3 mL/min (90-130); Glucose 68 mg/dL (65-115); Lipase 10 U/L (13-60); Osmolality Calculated 293 mOsm/kg (285-295); Potassium 3.5 mmol/L (3.5-5.1); Sodium 142 mmol/L (136-145); Total Bilirubin 0.7 mg/dL (0.15-1.2); Total Protein 8.4 g/dL (6.6-8.7)
[2023-11-28 14:40] VITALS: BP 113/63; RESP 18; O2SAT 95
[2023-11-28 14:41] LABS: Glucose Point of Care 212 mg/dL (70-110)
[2023-11-28] MEDS: sodium chloride 0.9% 1,000 ML 999 ML IV (14:52)
== END 2023-11-28 15:18 | disposition home or self-care (01) ==
PROVIDERS: Emergency Provider Family Medicine; PCP Nurse Practitioner Family
DX: E10.649 Type 1 diabetes mellitus with hypoglycemia without coma (principal); Z79.4 Long term (current) use of insulin; Z72.0 Tobacco use; Z96.41 Presence of insulin pump (external) (internal)
CPT/HCPCS: 36415; 36416; 36600; 71045; 80051; 80053; 82009; 82330; 82805; 82962; 83690; 85025; 93005; 96365; 96375; 99285; J7030; J7799

== ENCOUNTER → 2024-01-27 11:04 | Outpatient (BNVA) | payer MEDICARE, MEDICAID, SELFPAY | PROVIDERS: PCP Nurse Practitioner Family; Visit Provider Internal Medicine | DX: E10.9 Type 1 diabetes mellitus without complications (principal); E78.2 Mixed hyperlipidemia; Z79.4 Long term (current) use of insulin | CPT/HCPCS: 80053; 80061; 82044; 83036; 99214 ==

== ENCOUNTER 2024-04-22 07:01 | Inpatient (IN) | payer MEDICARE, MEDICAID, SELFPAY ==
[2024-04-22] VITALS (184 sets, daily range): BP systolic 78–129; BP diastolic 35–85; PULSE 80–134; RESP 15–16; TEMP 36.9–37; O2SAT 95–100; BMI 27.4
[2024-04-22 07:07] LABS: Glucose Point of Care 408 mg/dL (70-110)
--- NOTE | 2024-04-22 07:12 | W.ED.GENADLT ---
HPI - General Adult General: Chief complaint: General Medical Stated complaint: DKA Time Seen by Provider: 04/22/24 07:04 Source: patient and EMS Mode of arrival: EMS Limitations: no limitations History of Present Illness: 29-year-old male has a history of type 1 diabetes also has history of cannabis induced hyperemesis. Patient states been vomiting this morning his blood sugar chart to run high as well as 408. He has an insulin pump. He denies any fevers he has abdominal cramping denies any severe pain denies any worse improved factors he is given Phenergan and route. Associated symptoms: Reports nausea and vomiting; Deny chest pain, dyspnea, headache(s) or rash Related Data Home Medications Medication Instructions Recorded Confirmed multivitamin 1 tab PO DAILY 11/23/21 01/27/24 insulin detemir U-100 100 unit/mL See Rx Instructions .Route .COMPLEX 11/28/23 01/27/24 (3 mL) subcutaneous pen (Levemir FlexPen) mupirocin 2 % topical ointment 1 applic topical TID PRN unknown 11/28/23 01/27/24 Previous Rx's Medication Instructions Recorded blood sugar diagnostic #100 ea 03/20/21 blood sugar diagnostic (Blood #100 ea 03/20/21 Glucose Test strips) blood-glucose meter (Blood Glucose #1 03/20/21 Monitoring kit) lancets #200 ea 05/17/21 strips #200 ea 05/17/21 lancets #200 ea 06/18/21 strips #1 06/18/21 blood-glucose meter,continuous #1 10/18/22 (Dexcom G6 Aeronautical Engineering Professor) blood-glucose sensor (Dexcom G6 #9 10/18/22 Sensor device) blood-glucose transmitter (Dexcom #3 10/18/22 G6 Transmitter device) insulin pump cartridge,automated #1 10/18/22 dose,BT with controller subcutaneous (Omnipod 5 G6 Intro Kit (Gen 5) subcutaneous cartridge with controller) insulin lispro 100 unit/mL See Rx Instructions SUBCUT TID #27 11/17/22 subcutaneous pen (Humalog KwikPen mL (U-100) Insulin) insulin pump cart,automated,BT #15 ea 04/11/24 (Omnipod 5 G6 Pods (Gen 5) subcutaneous cartridge) insulin lispro 100 unit/mL See Rx Instructions .Route 04/18/24 subcutaneous solution .COMPLEX #10 mL Allergies Allergy/AdvReac Type Severity Reaction Status Date / Time promethazine [From Phenergan] Allergy Unknown Verified 04/22/24 07:10 zofran Allergy Intermediate swelling Uncoded 04/22/24 07:10 Review of Systems Const: Denies: fever(s), chills, body aches or change in appetite ENMT: Denies: throat pain or dental pain Card: Denies: chest pain Resp: Denies: dyspnea GI: Reports: nausea and vomiting; Denies: abdominal pain or diarrhea : Denies: dysuria Musc: Denies: neck pain or back pain Skin/Breast: Denies: rash Neuro: Denies: headache(s) PFSH ED PFSH: Medical History Abdominal pain High anion gap metabolic acidosis DKA (diabetic ketoacidosis) Diabetic keto-acidosis Hyperglycemia Nausea & vomiting Noncompliance with diabetes treatment Methamphetamine abuse DKA (diabetic ketoacidoses) History of pancreatitis Long-term insulin use Hypoglycemia due to insulin Uncontrolled type 1 diabetes mellitus Pancreatitis Marijuana use GERD (gastroesophageal reflux disease) Type 1 diabetes With recurrent admissions for DKA, severe Surgical History No pertinent past surgical history Family History Other Diabetes Social History Smoking and tobacco/nicotine status: never used tobacco/nicotine Alcohol intake: never Substance/Drug Use: former Date of last use: Marijuana abuse Lives independently: Yes Household members: family Marital status: Single Current occupational status: disabled Physical Exam Const: COMMON NORMALS: no acute distress, patient oriented x3 and healthy appearing HENMT: COMMON NORMALS: normocephalic and atraumatic HEAD & SCALP: normocephalic and atraumatic Eye: COMMON NORMALS: Equal, round and reactive pupils present and EOMs intact bilaterally PUPIL: Yes Equal, round and reactive pupils present Neck/C-Spine: COMMON NORMALS: full ROM and supple Chest: COMMONS NORMALS: normal inspection of the chest and normal palpation of entire chest wall Resp: COMMON NORMALS: normal respiratory effort, No retractions, No use of accessory muscles and clear to auscultation bilaterally AUSCULTATION: clear to auscultation bilaterally Cardio: COMMON NORMALS: regular rate, regular rhythm and No murmurs present (Cardio) RATE: regular rate RHYTHM: regular rhythm GI: COMMON NORMALS: Normal to inspection, nondistended, normoactive bowel sounds present, Soft to palpation, non-tender and no masses PALPATION: Yes Soft to palpation Extremity: COMMON NORMALS: normal to inspection and full ROM Neuro: COMMON NORMALS: patient oriented x3, moves all extremities and no focal motor deficits Psych: COMMON NORMALS: mental status grossly normal, Normal thought process present and cooperative THOUGHT PROCESS: Normal thought process present Skin: COMMON NORMALS: no rashes or lesions noted and no wounds GENERAL SKIN EXAM: no rashes or lesions noted Course Vital Signs: Vital signs: Vital Signs Temperature 98.4 F 04/22/24 07:01 Pulse Rate 103 H 04/22/24 08:00 Respiratory Rate 16 04/22/24 08:00 Blood Pressure 120/72 04/22/24 08:00 Pulse Oximetry 98 04/22/24 08:00 Oxygen Delivery Me thod Room Air 04/22/24 08:00 MDM - General Adult Medical Decision Making 29-year-old male presented here with DKA along with vomiting he does have an anion gap did give him IV fluids start him on insulin drip I spoke to the hospitalist will admit the ICU at this time. Medical Records I reviewed the patient's medical records. Lab Data I reviewed the patient's lab results. 04/22/24 07:16 04/22/24 07:44 Laboratory Results WBC 8.30 10^3/uL (3.29-11.43) 04/22/24 07:16 RBC 5.12 10^6/uL (3.85-5.65) 04/22/24 07:16 Hgb 15.60 g/dL (11.27-16.99) 04/22/24 07:16 Hct 46.2 % (37-53) 04/22/24 07:16 MCV 90.2 fl (82-101) 04/22/24 07:16 MCH 30.5 pg (27-33) 04/22/24 07:16 MCHC 33.8 g/dL (30-55) 04/22/24 07:16 RDW 11.9 % (12.1-15.1) L 04/22/24 07:16 Plt Count 193 10^3/cmm (157-399) 04/22/24 07:16 MPV 10.7 fL (7.4-10.4) H 04/22/24 07:16 Neut % (Auto) 89.2 % 04/22/24 07:16 Lymph % (Auto) 6.9 % 04/22/24 07:16 [place] % (Auto) 2.4 % 04/22/24 07:16 Eos % (Auto) 0.4 % 04/22/24 07:16 Baso % (Auto) 0.7 % 04/22/24 07:16 Neut # (Auto) 7.41 10^3/uL (1.8-7.7) 04/22/24 07:16 Lymph # (Auto) 0.6 10^3/uL (0.8-4.8) L 04/22/24 07:16 [place] # (Auto) 0.2 10^3/uL (0.2-0.9) 04/22/24 07:16 Eos # (Auto) 0.0 10^3/uL (0.0-0.8) 04/22/24 07:16 Baso # (Auto) 0.1 10^3/uL (0.0-0.1) 04/22/24 07:16 Nucleated RBC % (auto) 0 % 04/22/24 07:16 Nucleated RBCs # 0.0 /100WBC 04/22/24 07:16 Specimen Type Arterial 04/22/24 07:16 Sample Site Radial, right 04/22/24 07:16 ABG pH 7.27 (7.35-7.45) L 04/22/24 07:16 ABG pCO2 29.9 mmHg (35-45) L 04/22/24 07:16 ABG pO2 98.3 mmHg (80.0-100.0) 04/22/24 07:16 ABG PO2/FiO2 Ratio 468 04/22/24 07:16 ABG HCO3 13.7 mmol/L (22-26) L 04/22/24 07:16 ABG Base Excess -11.8 mmol/L (-2.0-2.0) L 04/22/24 07:16 Hasmukh Test Pos 04/22/24 07:16 Hematocrit 46.6 % (42-52) 04/22/24 07:16 O2 Delivery Device Room air 04/22/24 07:16 FiO2 21.0 % 04/22/24 07:16 Transportation Aid ID Cak 04/22/24 07:16 Sodium 136 mmol/L (136-145) 04/22/24 07:44 Potassium 4.6 mmol/L (3.5-5.1) 04/22/24 07:44 Chloride 99 mmol/L (98-107) 04/22/24 07:44 Carbon Dioxide 10 mmol/L (22-29) L 04/22/24 07:44 Anion Gap 31.6 (5-19) H 04/22/24 07:44 BUN 22 mg/dL (6-20) H 04/22/24 07:44 Creatinine 0.8 mg/dL (0.7-1.2) 04/22/24 07:44 GFR Calculation 116.0 mL/min (90-130) 04/22/24 07:44 Glucose 441 mg/dL (65-115) H 04/22/24 07:44 POC Glucose 408 mg/dL (70-110) H 04/22/24 07:05 Calculated Osmolality 304 mOsm/kg (285-295) H 04/22/24 07:44 Calcium 8.9 mg/dL (8.5-10.5) 04/22/24 07:44 Phosphorus 3.2 mg/dL (2.5-4.5) 04/22/24 07:44 Magnesium 1.9 mg/dL (1.7-2.3) 04/22/24 07:44 Total Bilirubin 1.1 mg/dL (0.15-1.2) 04/22/24 07:44 AST 27 U/L (0-40) 04/22/24 07:44 ALT 16 U/L (0-41) 04/22/24 07:44 Alkaline Phosphatase 59 U/L (40-130) 04/22/24 07:44 Total Protein 7.4 g/dL (6.6-8.7) 04/22/24 07:44 Albumin 4.4 g/dL (3.5-5.2) 04/22/24 07:44 Globulin 3.0 g/dL (1.3-4.6) 04/22/24 07:44 Urine Color Yellow (Yellow) 04/22/24 07:40 Urine Appearance Clear (CLEAR) 04/22/24 07:40 Urine pH 5.5 (5-7) 04/22/24 07:40 Ur Specific [place] 1.030 (1.005-1.030) 04/22/24 07:40 Urine Protein Negative (Negative) 04/22/24 07:40 Urine Glucose (UA) 3+ (Normal) H 04/22/24 07:40 Urine Ketones 4+ (Negative) 04/22/24 07:40 Urine Blood Negative (Negative) 04/22/24 07:40 Urine Nitrate Negative (Negative) 04/22/24 07:40 Urine Bilirubin Negative (Negative) 04/22/24 07:40 Urine Urobilinogen 0.2 mg/dL (Negative) 04/22/24 07:40 Ur Leukocyte Esterase Negative (Negative) 04/22/24 07:40 Urine RBC 0-2 /hpf (0-2) 04/22/24 07:40 Urine WBC 0-5 /hpf (0-5) 04/22/24 07:40 Ur Squamous Epith Cells 0-5 /hpf (0-5) 04/22/24 07:40 Amorphous Sediment Not Reportable 04/22/24 07:40 Urine Bacteria None seen /hpf (NONE) 04/22/24 07:40 Hyaline Casts 0.40 /lpf 04/22/24 07:40 Urine Opiates Screen Negative ng/mL (Negative) 04/22/24 07:40 Ur Barbiturates Screen Negative ng/mL (Negative) 04/22/24 07:40 Ur Phencyclidine Scrn Negative ng/mL (Negative) 04/22/24 07:40 Ur Amphetamines Screen Negative ng/mL (Negative) 04/22/24 07:40 U Benzodiazepines Scrn Negative ng/mL (Negative) 04/22/24 07:40 Urine Cocaine Screen Negative ng/mL (Negative) 04/22/24 07:40 U Marijuana (THC) Screen Positive ng/mL (Negative) H 04/22/24 07:40 Serum Ketones Positive (Negative) H 04/22/24 07:16 All radiology interpretation(s) finalized by discharge Critical Care Time Critical Care Time: Critical Care Time: Yes Total Critical Care Time: 3 Attestation: The high probability of a clinically significant, sudden or life threatening deterioration of the patient's endocrine system(s) required my full and direct attention, intervention and personal management. The critical care time is as shown. This time is in addition to time spent performing any reported procedures but includes the following: [x] Data and vital sign review and interpretation [x] Patient assessment, examination and intervention [x] Documentation [x] Medication orders and management Discharge Plan Discharge Patient Disposition: Admitted As Inpatient Admit Provider: Enmanuel Mariano Clinical Impression: DKA (diabetic ketoacidosis), Cannabinoid hyperemesis syndrome Condition: Stable Coding Level of Care Code ED Farm Equipment Service Technician for Maxx Mohr
[2024-04-22 07:24] LABS: Basophils # 0.1 10^3/uL (0.0-0.1); Basophils % 0.7 %; Eosinophils % 0.4 %; Hematocrit 46.2 % (37-53); Lymphocytes # 0.6 10^3/uL (0.8-4.8); Lymphocytes % 6.9 %; Mean Corpuscular HGB Conc 33.8 g/dL (30-55); Mean Corpuscular Hemoglobin 30.5 pg (27-33); Mean Corpuscular Volume 90.2 fl (82-101); Mean Platelet Volume 10.7 fL (7.4-10.4); Monocytes # 0.2 10^3/uL (0.2-0.9); Monocytes % 2.4 %; Neutrophils # 7.41 10^3/uL (1.8-7.7); Neutrophils % 89.2 %; Nucleated Red Blood Cells % 0 %; Platelet Count 193 10^3/cmm (157-399); Red Blood Count 5.12 10^6/uL (3.85-5.65); Red Cell Distribution Width 11.9 % (12.1-15.1)
[2024-04-22 07:28] LABS: ABG PCO2 29.9 mmHg (35-45); ABG PH Result 7.27 (7.35-7.45); Arterial Blood Gas Hematocrit 46.6 % (42-52); Base Excess ABG -11.8 mmol/L (-2.0-2.0); Blood Gas Allen Test Pos; Blood Gas Operator Identificat CAK; Blood Gas Sample Site Radial, right; Blood Gas Sample Type Arterial; HCO3 ABG 13.7 mmol/L (22-26); Oxygen Device ROOM AIR; PO2 ABG 98.3 mmHg (80.0-100.0); PO2 FiO2 Ratio Arterial Blood 468
[2024-04-22] MEDS: sodium chloride 0.9% 1,000 ML 999 ML IV ×2 (07:30→07:32)
[2024-04-22] MEDS: ondansetron 2 mg/ML SDV 2 mL 4 MG IVP ×2 (07:31→09:13)
[2024-04-22 07:47] LABS: Ketone (Acetest) Serum Positive (Negative)
[2024-04-22 07:49] LABS: Charge for UA Resulting for Rev
[2024-04-22 07:52] LABS: Bilirubin Urine Negative (Negative); Blood Urine Negative (Negative); Glucose Urine UA 3+ (Normal); Ketones Urine 4+ (Negative); Leukocyte Esterase Urine Negative (Negative); Nitrate Urine Negative (Negative); Protein Urine Negative (Negative); Urine Appearance Clear (CLEAR); Urine Color Yellow (Yellow); Urobilinogen Urine 0.2 mg/dL (Negative); pH Urine 5.5 (5-7)
[2024-04-22 07:57] LABS: Bacteria Urine None Seen /hpf; RBC Urine 0-2 /hpf (0-2); Squamous Epithelial Cell Urine 0-5 /hpf (0-5); WBC Urine 0-5 /hpf (0-5)
[2024-04-22 08:01] LABS: Amphetamines Screen Urine Negative (Negative); Barbiturates Screen Urine Negative (Negative); Benzodiazepines Screen Urine Negative (Negative); Cocaine Screen Urine Negative (Negative); Opiate Screen Urine Negative (Negative); PCP Screen Urine Negative (Negative); THC Screen Urine Positive (Negative)
[2024-04-22 08:10] LABS: Alanine Aminotransferase 16 U/L (0-41); Albumin Level 4.4 g/dL (3.5-5.2); Alkaline Phosphatase 59 U/L (40-130); Anion Gap 31.6 (5-19); Aspartate Amino Transferase 27 U/L (0-40); Blood Urea Nitrogen 22 mg/dL (6-20); Calcium 8.9 mg/dL (8.5-10.5); Carbon Dioxide 10 mmol/L (22-29); Chloride 99 mmol/L (98-107); Creatinine Clr Calc Pharmacy 126.6345; Glucose 441 mg/dL (65-115); Magnesium 1.9 mg/dL (1.7-2.3); Osmolality Calculated 304 mOsm/kg (285-295); Phosphorus 3.2 mg/dL (2.5-4.5); Potassium 4.6 mmol/L (3.5-5.1); Sodium 136 mmol/L (136-145); Total Bilirubin 1.1 mg/dL (0.15-1.2); Total Protein 7.4 g/dL (6.6-8.7)
--- NOTE | 2024-04-22 08:56 | P.HP_ITS ---
Providers/Chief Complaint 2 Admitting Physician: Enmanuel Mariano Primary Care Provider: MARGE Castellano Chief Complaint: DKA History of Present Illness 29-year-old gentleman with diabetes, history of recurrent episodes of DKA came in due to nausea vomiting, malaise, found to be in DKA with hyperglycemia, high gap metabolic acidosis, positive ketones. He follows with endocrinology. He uses an insulin pump and states has not ran out of insulin. Review of Systems 2 Const: Denies: fever(s), chills, body aches or malaise ENMT: Denies: throat pain Card: Denies: chest pain, edema, pre-syncope or dyspnea on exertion Resp: Reports: dyspnea (mild); Denies: productive cough, change in phlegm color or hemoptysis GI: Denies: abdominal pain, nausea, vomiting, diarrhea, constipation, hematochezia or melena : Denies: flank pain, difficulty urinating, urinary frequency or hematuria Musc: Denies: back pain, joint swelling or joint redness Skin/Breast: Denies: rash or new lesions Neuro: Denies: headache(s) Endo: Denies: polyuria or polydipsia Medications/Allergies Home Medications Medication Instructions Recorded Confirmed Last Taken Type blood sugar diagnostic #100 ea 03/20/21 01/27/24 Unknown Rx blood sugar diagnostic (Blood #100 ea 03/20/21 01/27/24 Unknown Rx Glucose Test strips) blood-glucose meter (Blood Glucose #1 ea 03/20/21 01/27/24 Unknown Rx Monitoring kit) lancets #200 ea 05/17/21 01/27/24 Unknown Rx strips #200 ea 05/17/21 01/27/24 Unknown Rx lancets #200 ea 06/18/21 01/27/24 Unknown Rx strips #1 ea 06/18/21 01/27/24 Unknown Rx multivitamin 1 tab PO DAILY 11/23/21 01/27/24 08/09/23 History blood-glucose meter,continuous #1 10/18/22 01/27/24 Unknown Rx (Dexcom G6 Racing Manager) blood-glucose sensor (Dexcom G6 #9 ea 10/18/22 01/27/24 Unknown Rx Sensor device) blood-glucose transmitter (Dexcom #3 10/18/22 01/27/24 Unknown Rx G6 Transmitter device) insulin pump cartridge,automated #1 ea 10/18/22 01/27/24 Unknown Rx dose,BT with controller subcutaneous (Omnipod 5 G6 Intro Kit (Gen 5) subcutaneous cartridge with controller) insulin lispro 100 unit/mL See Rx Instructions SUBCUT TID #27 11/17/22 01/27/24 Unknown Rx subcutaneous pen (Humalog KwikPen mL (U-100) Insulin) insulin detemir U-100 100 unit/mL See Rx Instructions .Route .COMPLEX 11/28/23 01/27/24 Unknown History (3 mL) subcutaneous pen (Levemir FlexPen) mupirocin 2 % topical ointment 1 applic topical TID PRN unknown 11/28/23 01/27/24 Unknown History insulin pump cart,automated,BT #15 ea 04/11/24 Unknown Rx (Omnipod 5 G6 Pods (Gen 5) subcutaneous cartridge) insulin lispro 100 unit/mL See Rx Instructions .Route 04/18/24 Unknown Rx subcutaneous solution .COMPLEX #10 mL Allergies Allergy/AdvReac Type Severity Reaction Status Date / Time promethazine [From Phenergan] Allergy Unknown Verified 04/22/24 07:10 zofran Allergy Intermediate swelling Uncoded 04/22/24 07:10 PFSH Acute 2 PFSH: Medical History Abdominal pain High anion gap metabolic acidosis DKA (diabetic ketoacidosis) Diabetic keto-acidosis Hyperglycemia Nausea & vomiting Noncompliance with diabetes treatment Methamphetamine abuse DKA (diabetic ketoacidoses) History of pancreatitis Long-term insulin use Hypoglycemia due to insulin Uncontrolled type 1 diabetes mellitus Pancreatitis Marijuana use GERD (gastroesophageal reflux disease) Type 1 diabetes With recurrent admissions for DKA, severe Surgical History No pertinent past surgical history Family History Other Diabetes Social History Smoking and tobacco/nicotine status: never used tobacco/nicotine Alcohol intake: never Substance/Drug Use: former Date of last use: Marijuana abuse Lives independently: Yes Household members: family Marital status: Single Current occupational status: disabled Vitals/I&O/Wt Last Vital Signs Temp 98.4 F 04/22/24 07:01 Pulse 103 H 04/22/24 08:00 Resp 16 04/22/24 08:00 BP 120/72 04/22/24 08:00 Pulse Ox 98 04/22/24 08:00 O2 Del Method Room Air 04/22/24 08:00 04/21/24 04/22/24 04/22/24 22:59 06:59 14:59 Intake Total 33.3 / 33.3 Balance 33.3 / 33.3 Weight last 48 hrs Weight 72.575 kg Physical Exam 2 Narrative: Appears malaised. Ketones detectable in breath. Const: COMMON NORMALS: patient oriented x3 and alert GENERAL APPEARANCE: c ooperative ORIENTATION/CONSCIOUSNESS: Yes awake HENMT: OTHER: Dry MM. Neck/C-Spine: COMMON NORMALS: no JVD Resp: COMMON NORMALS: normal respiratory effort and clear to auscultation bilaterally AUSCULTATION: clear to auscultation bilaterally Cardio: COMMON NORMALS: no JVD, regular rhythm, S1 normal heart sound present, S2 normal heart sound present and No murmurs present (Cardio) RHYTHM: regular rhythm HEART SOUNDS: S1 normal heart sound present and S2 normal heart sound present GI: COMMON NORMALS: Normal to inspection, nondistended, normoactive bowel sounds present, Soft to palpation and non-tender PALPATION: Yes Soft to palpation Extremity: COMMON NORMALS: no joint enlargement and no pedal edema Neuro: COMMON NORMALS: patient oriented x3 and moves all extremities S ENSORIUM/ORIENTATION: Yes alert Skin: COMMON NORMALS: no rashes or lesions noted GENERAL SKIN EXAM: no rashes or lesions noted Data 04/22/24 07:16 04/22/24 07:44 A&P Assessment and plan (1) DKA (diabetic ketoacidosis): Reviewed vitals, CBC, ABG, CMP, magnesium, UA, UDS, ER provider note, discussed with ER provider. Reviewed endocrinology note. He states has been compliant with insulin pump and has not run out of insulin. In diabetic ketoacidosis. With dehydration. Discussed with nursing staff. Insulin drip, monitor blood glucose, IV fluid infusion NS 250 mL/h with potassium, blood glucose is coming down, added D5 half-normal with potassium. Reassess chemistry. Reassess magnesium. Phosphorus. PPI prophylaxis, Lovenox VTE prophylaxis. Ice chips, sips. Has been having nausea, so far without additional vomiting. Antiemetic as needed. Qualifiers: Diabetes mellitus complication detail: without coma Diabetes mellitus type: type 1 Qualified Code(s): E10.10 - Type 1 diabetes mellitus with ketoacidosis without coma Plan Mild dyspnea: Endorses some dyspnea. Will check COVID viral panel, chest x-ray. Marijuana use, history of marijuana hyperemesis syndrome. Encourage caution. Attestations 2 Medical Necessity Statement*: Admission of over 2 midnights anticipated for assessment of management of diabetic ketoacidosis. Coding Level of Care Code Critical Care >/= 30 minutes Critical care time (in minutes): 40 The high probability of a clinically significant, sudden or life threatening deterioration, as referenced in this documentation, required my full and direct attention, intervention and personal management. The critical care time shown is in addition to time spent performing any reported separately billable procedures and includes the following: [x] Data and vital sign review and interpretation [x ] Patient assessment, examination and intervention [x] Medication orders and management [x] Patient/Family updates as able [x] Care Coordination and Documentation. Diagnoses DKA (diabetic ketoacidosis) E10.10 Diabetes mellitus complication detail: without coma Diabetes mellitus type: type 1
[2024-04-22] MEDS: INSULIN REGULAR IN 0.9 % NACL 100 UNIT/100 ML BAG 7 UNIT IV (09:01)
[2024-04-22 09:09] LABS: Glucose Point of Care 367 mg/dL (70-110)
[2024-04-22] MEDS: sodium chlor 0.9% + KCl 20 mEq 20 MEQ/1,000 ML BAG 250 MEQ IV (09:13)
[2024-04-22] MEDS: pantoprazole 40 mg SDV IVP (09:13)
[2024-04-22] MEDS: enoxaparin 40 mg/0.4 mL Syringe SUBCUT (09:13)
[2024-04-22 10:05] LABS: Glucose Point of Care 344 mg/dL (70-110)
[2024-04-22 11:13] LABS: Glucose Point of Care 272 mg/dL (70-110)
[2024-04-22 12:03] LABS: Glucose Point of Care 223 mg/dL (70-110)
[2024-04-22] MEDS: dextrose 5%-ns 0.45% + KCl 10 1,000 ML 250 MEQ IV ×4 (12:04→20:33)
--- NOTE | 2024-04-22 12:22 | XRR_ITS ---
PROCEDURE INFORMATION: Exam: XR Chest Exam date and time: 04/22/2024 12:36 PM Age: 29 years old Clinical indication: Dyspnea TECHNIQUE: Imaging protocol: Radiologic exam of the chest. Views: 1 view. COMPARISON: CR XR chest 1V portable [id number] 11/28/2023 1:41 PM FINDINGS: Lungs: The lungs are hyperinflated with coarse interstitial lung markings of mild bronchitis or viral pneumonitis. There is new right suprahilar parenchymal density compared to the prior exam compatible with probable atelectasis given the interval decrease in volume right upper lobe and rib crowding. No airspace consolidation. Pleural spaces: Unremarkable. No pleural effusion. No pneumothorax. Heart/Mediastinum: Unremarkable. No cardiomegaly. No left hilar parenchymal opacity, mass or adenopathy. Bones/joints: No acute abnormality. XR/XR chest 1V portable [id number] IMPRESSION: 1. The lungs are hyperinflated with diffuse new coarse interstitial lung markings of mild bronchitis or viral pneumonitis. 2. Probable partial atelectasis right upper lobe. There is new parenchymal density superimposed over the right hilum but there is also volume loss. Chest CT may be helpful for further characterization.
--- NOTE | 2024-04-22 12:56 | PC.NURSE ---
BG 224, no change in rate per protocol.
[2024-04-22 12:59] LABS: Glucose Point of Care 224 mg/dL (70-110)
[2024-04-22 13:35] LABS: Anion Gap 21.1 (5-19); Blood Urea Nitrogen 20 mg/dL (6-20); Calcium 7.8 mg/dL (8.5-10.5); Carbon Dioxide 13 mmol/L (22-29); Chloride 107 mmol/L (98-107); Creatinine Clr Calc Pharmacy 124.5346; Glucose 233 mg/dL (65-115); Osmolality Calculated 294 mOsm/kg (285-295); Phosphorus 2.3 mg/dL (2.5-4.5); Potassium 4.1 mmol/L (3.5-5.1); Sodium 137 mmol/L (136-145)
[2024-04-22 13:52] LABS: Glucose Point of Care 230 mg/dL (70-110)
[2024-04-22 15:02] LABS: Glucose Point of Care 254 mg/dL (70-110)
[2024-04-22 15:17] LABS: Adenovirus Not Detected (NOT DETECT); Chlamydia Pneumoniae Not Detected (NOT DETECT); Coronavirus 229E,HKU1,NL63,OC4 Not Detected (NOT DETECT); Human Metapneumovirus Not Detected (NOT DETECT); Human Rhinovirus/Enterovirus Not Detected (NOT DETECT); Influenza A Not Detected (NOT DETECT); Influenza A H1 Not Detected (NOT DETECT); Influenza A H1-2009 Not Detected (NOT DETECT); Influenza A H3 Not Detected (NOT DETECT); Influenza B Not Detected (NOT DETECT); Mycoplasma Pneumoniae Not Detected (NOT DETECT); Parainfluenza Virus Type 1 Not Detected (NOT DETECT); Parainfluenza Virus Type 2 Not Detected (NOT DETECT); Parainfluenza Virus Type 3 Not Detected (NOT DETECT); Parainfluenza Virus Type 4 Not Detected (NOT DETECT); Respiratory Syncytial Virus A Not Detected (NOT DETECT); Respiratory Syncytial Virus B Not Detected (NOT DETECT); SARS-COV-2 Not Detected (NOT DETECT)
[2024-04-22 15:56] LABS: Glucose Point of Care 243 mg/dL (70-110)
[2024-04-22] MEDS: INSULIN REGULAR IN 0.9 % NACL 100 UNIT/100 ML BAG 9.5 UNIT IV (16:26)
[2024-04-22 16:45] LABS: Anion Gap 17.9 (5-19); Blood Urea Nitrogen 15 mg/dL (6-20); Calcium 7.9 mg/dL (8.5-10.5); Carbon Dioxide 16 mmol/L (22-29); Chloride 104 mmol/L (98-107); Creatinine Clr Calc Pharmacy 142.3253; Glomerular Filtration Rate 135.3 mL/min (90-130); Glucose 265 mg/dL (65-115); Magnesium 1.9 mg/dL (1.7-2.3); Osmolality Calculated 288 mOsm/kg (285-295); Phosphorus 1.5 mg/dL (2.5-4.5); Potassium 3.9 mmol/L (3.5-5.1); Sodium 134 mmol/L (136-145)
[2024-04-22 17:07] LABS: Glucose Point of Care 255 mg/dL (70-110)
--- NOTE | 2024-04-22 17:10 | CTR_ITS ---
PROCEDURE INFORMATION: Exam: CT Chest Without Contrast; Diagnostic Exam date and time: 04/22/2024 5:45 PM Age: 29 years old Clinical indication: Dyspnea and shortness of breath; Patient HX: SOB and dyspnea. RT hilar density noted on cxr. ; Additional info: R hilar density and possible pneumonitis TECHNIQUE: Imaging protocol: Diagnostic computed tomography of the chest without contrast. Radiation optimization: All CT scans at this facility use at least one of these dose optimization techniques: automated exposure control; mA and/or kV adjustment per patient size (includes targeted exams where dose is matched to clinical indication); or iterative reconstruction. COMPARISON: CT angio chest PE protcl [id number] 08/11/2023 1:50 PM RADIATION DOSE METRICS: Total DLP (mGy-cm): 320.88 FINDINGS: Lungs: There is a 10 x 6 mm, previously 11 x 6 mm, pulmonary nodule in the right lung base (series 5, image 37). Pleural spaces: Unremarkable. No pneumothorax. No pleural effusion. Heart: No coronary artery calcifications. No cardiomegaly. No pericardial effusion. Lymph nodes: Unremarkable. No enlarged lymph nodes. Vasculature: Unremarkable. No aortic aneurysm. Bones/joints: Unremarkable. No acute fracture. Soft tissues: Unremarkable. CT/CT chest wo con [id number] IMPRESSION: 1. There is a 10 x 6 mm, previously 11 x 6 mm, pulmonary nodule in the right lung base (series 5, image 37). 2. No new pulmonary nodules or masses. 3. No focal consolidation.
[2024-04-22] MEDS: phosphorus 250 mg Tablet PO (17:31)
[2024-04-22 18:19] LABS: Glucose Point of Care 240 mg/dL (70-110)
[2024-04-22 19:13] LABS: Glucose Point of Care 297 mg/dL (70-110)
[2024-04-22 20:25] LABS: Glucose Point of Care 267 mg/dL (70-110)
[2024-04-22 21:09] LABS: Anion Gap 15.9 (5-19); Blood Urea Nitrogen 11 mg/dL (6-20); Calcium 7.8 mg/dL (8.5-10.5); Carbon Dioxide 17 mmol/L (22-29); Chloride 104 mmol/L (98-107); Creatinine Clr Calc Pharmacy 166.0462; Glomerular Filtration Rate 161.6 mL/min (90-130); Glucose 281 mg/dL (65-115); Magnesium 1.9 mg/dL (1.7-2.3); Osmolality Calculated 286 mOsm/kg (285-295); Phosphorus 2.3 mg/dL (2.5-4.5); Potassium 3.9 mmol/L (3.5-5.1); Sodium 133 mmol/L (136-145)
[2024-04-22 21:13] LABS: Glucose Point of Care 213 mg/dL (70-110)
[2024-04-22] MEDS: insulin glargine 100 units/1 mL 30 UNIT SUBCUT (22:16)
[2024-04-22 22:18] LABS: Glucose Point of Care 138 mg/dL (70-110)
[2024-04-22 23:11] LABS: Glucose Point of Care 107 mg/dL (70-110)
[2024-04-23] VITALS (100 sets, daily range): BP systolic 91–136; BP diastolic 48–86; PULSE 74–129; RESP 13; TEMP 36.7–37; O2SAT 94–100
[2024-04-23 00:04] LABS: Glucose Point of Care 149 mg/dL (70-110)
--- NOTE | 2024-04-23 00:18 | PC.NURSE ---
Spoke with Dr. Vernon. Blood sugars below 250, anion gap closed, new orders received for lantus insulin and was administered. New orders received to stop fluids, insulin drip, and hourly glucose checks at 0000.
[2024-04-23 04:26] LABS: Basophils % 0.4 %; Eosinophils % 0.3 %; Hematocrit 39.9 % (37-53); Lymphocytes # 1.2 10^3/uL (0.8-4.8); Lymphocytes % 13.1 %; Mean Corpuscular HGB Conc 33.6 g/dL (30-55); Mean Corpuscular Hemoglobin 30.2 pg (27-33); Mean Corpuscular Volume 89.9 fl (82-101); Mean Platelet Volume 9.6 fL (7.4-10.4); Monocytes # 0.5 10^3/uL (0.2-0.9); Monocytes % 5.5 %; Neutrophils # 7.26 10^3/uL (1.8-7.7); Neutrophils % 80.5 %; Nucleated Red Blood Cells % 0 %; Platelet Count 194 10^3/cmm (157-399); Red Blood Count 4.44 10^6/uL (3.85-5.65); Red Cell Distribution Width 12.2 % (12.1-15.1); White Blood Count 9.03 10^3/uL (3.29-11.43)
[2024-04-23 04:46] LABS: Anion Gap 17.4 (5-19); Blood Urea Nitrogen 9 mg/dL (6-20); Carbon Dioxide 16 mmol/L (22-29); Chloride 106 mmol/L (98-107); Creatinine Clr Calc Pharmacy 166.0462; Glomerular Filtration Rate 161.6 mL/min (90-130); Glucose 190 mg/dL (65-115); Osmolality Calculated 284 mOsm/kg (285-295); Potassium 4.4 mmol/L (3.5-5.1); Sodium 135 mmol/L (136-145)
[2024-04-23] MEDS: enoxaparin 40 mg/0.4 mL Syringe SUBCUT (08:19)
[2024-04-23] MEDS: pantoprazole 40 mg SDV IVP (08:20)
[2024-04-23] MEDS: phosphorus 250 mg Tablet PO (08:20)
[2024-04-23 08:38] LABS: Glucose Point of Care 269 mg/dL (70-110)
[2024-04-23] MEDS: insulin lispro 100 unit/1 mL SUBCUT (08:40)
--- NOTE | 2024-04-23 08:46 | P.DS_ITS ---
Discharge Providers Date of Admission: 04/22/24 08:24 Date of Discharge: April 23, 2024 Attending Provider at Admission: Enmanuel Mariano Attending Provider at Discharge: Jase Luna MD Primary Care Provider: MARGE Castellano Diagnoses at Discharge Discharge Diagnosis (1) DKA (diabetic ketoacidosis): Status: Acute Qualifiers: Diabetes mellitus complication detail: without coma Diabetes mellitus type: type 1 Qualified Code(s): E10.10 - Type 1 diabetes mellitus with ketoacidosis without coma Reason for Visit Reason for Visit: DKA Brief History: History as per HPI: 29-year-old gentleman with diabetes, his tory of recurrent episodes of DKA came in due to nausea vomiting, malaise, found to be in DKA with hyperglycemia, high gap metabolic acidosis, positive ketones. He follows with endocrinology. He uses an insulin pump and states has not ran out of insulin. Hospital Course Hospital Course He was admitted to the ICU for further evaluation management of DKA. Started on IV fluids and insulin drip as per DKA protocol. He reports his blood sugars been controlled since August with last admission for DKA back in August 2023. He feels he went to D[place] at this time [place] able to maintain his hydration while he was away from home. He responded well to the treatment and DKA resolved. His blood sugars have been controlled anion gap has remained closed. Patient denies any further difficulty in breathing. Respiratory viral panel was checked because of subjective feels or difficulty breathing on admission which remain negative. He has been discharged home in hemodynamically stable condition advised to keep his hydration more than 2 L daily. He has been discharged on insulin pump Physical Exam Const: COMMON NORMALS: patient oriented x3 and alert GENERAL APPEARANCE: cooperative ORIENTATION/CONSCIOUSNESS: Yes awake HENMT: OTHER: Dry MM. Neck/C-Spine: COMMON NORMALS: no JVD Resp: COMMON NORMALS: normal respiratory effort and clear to auscultation bilaterally AUSCULTATION: clear to auscultation bilaterally Cardio: COMMON NORMALS: no JVD, regular rhythm, S1 normal heart sound present, S2 normal heart sound present and No murmurs present (Cardio) RHYTHM: regular rhythm HEART SOUNDS: S1 normal heart sound present and S2 normal heart sound present GI: COMMON NORMALS: Normal to inspection, nondistended, normoactive bowel sounds present, Soft to palpation and non-tender PALPATION: Yes Soft to palpation Extremity: COMMON NORMALS: no joint enlargement and no pedal edema Neuro: COMMON NORMALS: patient oriented x3 and moves all extremities SENSORIUM/ORIENTATION: Yes alert Skin: COMMON NORMALS: no rashes or lesions noted GENERAL SKIN EXAM: no rashes or lesions noted Discharge Data Studies Completed and Pending Completed Studies During Hospitalization Category Date Time Status CT chest wo con [id number] Routine Cat Scan 04/22/24 17:10 Completed CXRP [XR chest 1V portable [id number]] Routine Exams 04/22/24 12:22 Completed Pending at discharge Category Date Time Status Basic Metabolic Panel AM LABS Lab 04/24/24 04:00 Ordered Basic Metabolic Panel AM LABS Lab 04/25/24 04:00 Ordered Complete Blood Count w/Auto AM LABS Lab 04/24/24 04:00 Ordered Complete Blood Count w/Auto AM LABS Lab 04/25/24 04:00 Ordered Radiology Impressions Chest X-Ray 04/22/24 12:22 IMPRESSION: 1. The lungs are hyperinflated with diffuse new coarse interstitial lung markings of mild bronchitis or viral pneumonitis. 2. Probable partial atelectasis right upper lobe. There is new parenchymal density superimposed over the right hilum but there is also volume loss. Chest CT may be helpful for further characterization. Chest CT 04/22/24 17:10 IMPRESSION: 1. There is a 10 x 6 mm, previously 11 x 6 mm, pulmonary nodule in the right lung base (series 5, image 37). 2. No new pulmonary nodules or masses. 3. No focal consolidation. Laboratory Results WBC 9.03 10^3/uL (3.29-11.43) 04/23/24 04:10 RBC 4.44 10^6/uL (3.85-5.65) 04/23/24 04:10 Hgb 13.40 g/dL (11.27-16.99) 04/23/24 04:10 Hct 39.9 % (37-53) 04/23/24 04:10 MCV 89.9 fl (82-101) 04/23/24 04:10 MCH 30.2 pg (27-33) 04/23/24 04:10 MCHC 33.6 g/dL (30-55) 04/23/24 04:10 RDW 12.2 % (12.1-15.1) 04/23/24 04:10 Plt Count 194 10^3/cmm (157-399) 04/23/24 04:10 MPV 9.6 fL (7.4-10.4) 04/23/24 04:10 Neut % (Auto) 80.5 % 04/23/24 04:10 Lymph % (Auto) 13.1 % 04/23/24 04:10 [place] % (Auto) 5.5 % 04/23/24 04:10 Eos % (Auto) 0.3 % 04/23/24 04:10 Baso % (Auto) 0.4 % 04/23/24 04:10 Neut # (Auto) 7.26 10^3/uL (1.8-7.7) 04/23/24 04:10 Lymph # (Auto) 1.2 10^3/uL (0.8-4.8) 04/23/24 04:10 [place] # (Auto) 0.5 10^3/uL (0.2-0.9) 04/23/24 04:10 Eos # (Auto) 0.0 10^3/uL (0.0-0.8) 04/23/24 04:10 Baso # (Auto) 0.0 10^3/uL (0.0-0.1) 04/23/24 04:10 Nucleated RBC % (auto) 0 % 04/23/24 04:10 Nucleated RBCs # 0.0 /100WBC 04/23/24 04:10 Specimen Type Arterial 04/22/24 07:16 Sample Site Radial, right 04/22/24 07:16 ABG pH 7.27 (7.35-7.45) L 04/22/24 07:16 ABG pCO2 29.9 mmHg (35-45) L 04/22/24 07:16 ABG pO2 98.3 mmHg (80.0-100.0) 04/22/24 07:16 ABG PO2/FiO2 Ratio 468 04/22/24 07:16 ABG HCO3 13.7 mmol/L (22-26) L 04/22/24 07:16 ABG Base Excess -11.8 mmol/L (-2.0-2.0) L 04/22/24 07:16 Hasmukh Test Pos 04/22/24 07:16 Hematocrit 46.6 % (42-52) 04/22/24 07:16 O2 Delivery Device Room air 04/22/24 07:16 FiO2 21.0 % 04/22/24 07:16 Carton Machine Operator ID Cak 04/22/24 07:16 Sodium 135 mmol/L (136-145) L 04/23/24 04:10 Potassium 4.4 mmol/L (3.5-5.1) 04/23/24 04:10 Chloride 106 mmol/L (98-107) 04/23/24 04:10 Carbon Dioxide 16 mmol/L (22-29) L 04/23/24 04:10 Anion Gap 17.4 (5-19) 04/23/24 04:10 BUN 9 mg/dL (6-20) 04/23/24 04:10 Creatinine 0.6 mg/dL (0.7-1.2) L 04/23/24 04:10 GFR Calculation 161.6 mL/min (90-130) H 04/23/24 04:10 Glucose 190 mg/dL (65-115) H 04/23/24 04:10 POC Glucose 269 mg/dL (70-110) H 04/23/24 08:32 Calculated Osmolality 284 mOsm/kg (285-295) L 04/23/24 04:10 Calcium 8.0 mg/dL (8.5-10.5) L 04/23/24 04:10 Phosphorus 2.3 mg/dL (2.5-4.5) L D 04/22/24 20:16 Magnesium 1.9 mg/dL (1.7-2.3) 04/22/24 20:16 Total Bilirubin 1.1 mg/dL (0.15-1.2) 04/22/24 07:44 AST 27 U/L (0-40) 04/22/24 07:44 ALT 16 U/L (0-41) 04/22/24 07:44 Alkaline Phosphatase 59 U/L (40-130) 04/22/24 07:44 Total Protein 7.4 g/dL (6.6-8.7) 04/22/24 07:44 Albumin 4.4 g/dL (3.5-5.2) 04/22/24 07:44 Globulin 3.0 g/dL (1.3-4.6) 04/22/24 07:44 Urine Color Yellow (Yellow) 04/22/24 07:40 Urine Appearance Clear (CLEAR) 04/22/24 07:40 Urine pH 5.5 (5-7) 04/22/24 07:40 Ur Specific [place] 1.030 (1.005-1.030) 04/22/24 07:40 Urine Protein Negative (Negative) 04/22/24 07:40 Urine Glucose (UA) 3+ (Normal) H 04/22/24 07:40 Urine Ketones 4+ (Negative) 04/22/24 07:40 Urine Blood Negative (Negative) 04/22/24 07:40 Urine Nitrate Negative (Negative) 04/22/24 07:40 Urine Bilirubin Negative (Negative) 04/22/24 07:40 Urine Urobilinogen 0.2 mg/dL (Negative) 04/22/24 07:40 Ur Leukocyte Esterase Negative (Negative) 04/22/24 07:40 Urine RBC 0-2 /hpf (0-2) 04/22/24 07:40 Urine WBC 0-5 /hpf (0-5) 04/22/24 07:40 Ur Squamous Epith Cells 0-5 /hpf (0-5) 04/22/24 07:40 Amorphous Sediment Not Reportable 04/22/24 07:40 Urine Bacteria None seen /hpf (NONE) 04/22/24 07:40 Hyaline Casts 0.40 /lpf 04/22/24 07:40 Urine Opiates Screen Negative ng/mL (Negative) 04/22/24 07:40 Ur Barbiturates Screen Negative ng/mL (Negative) 04/22/24 07:40 Ur Phencyclidine Scrn Negative ng/mL (Negative) 04/22/24 07:40 Ur Amphetamines Screen Negative ng/mL (Negative) 04/22/24 07:40 U Benzodiazepines Scrn Negative ng/mL (Negative) 04/22/24 07:40 Urine Cocaine Screen Negative ng/mL (Negative) 04/22/24 07:40 U Marijuana (THC) Screen Positive ng/mL (Negative) H 04/22/24 07:40 Serum Ketones Positive (Negative) H 04/22/24 07:16 Coronavirus 229E (PCR) Not detected (NOT DETECT) 04/22/24 13:10 SARS-CoV-2 (PCR) Not detected (NOT DETECT) 04/22/24 13:10 Vitals Last Vital Signs Temp 98.6 F 04/23/24 04:00 Pulse 108 H 04/23/24 08:10 Resp 16 04/22/24 08:00 BP 107/58 04/23/24 08:00 Pulse Ox 99 04/23/24 08:10 O2 Del Method Room Air 04/22/24 08:44 Discharge Plan Discharge Patient Disposition: Home Condition: Stable Prescriptions: Continued (DME) Omnipod 5 G6 Intro Kit (Gen 5) Cartridge See Rx Instructions .ROUTE .MEDSUPPLY Qty: 1 0RF Rx Instructions: As directed (DME) Dexcom G6 Gas Or Petroleum Operator Misc See Rx Instructions .ROUTE .MEDSUPPLY Qty: 1 0RF Rx Instructions: takes blood sugar (DME) Dexcom G6 Sensor Device See Rx Instructions .ROUTE .MEDSUPPLY Qty: 9 3RF Rx Instructions: Change every 10 days (DME) Dexcom G6 Transmitter Device See Rx Instructions .ROUTE .MEDSUPPLY Qty: 3 3RF Rx Instructions: change every 90 days (DME) strips See Rx Instructions .Route .MEDSUPPLY Qty: 1 3RF Rx Instructions: Check blood sugars 3 times daily, with meals, #200, 3 refills (DME) lancets Misc See Rx Instructions .Route Qty: 200 3RF Rx Instructions: check BS, TID with meals insulin lispro [Humalog KwikPen Insulin] 100 unit/mL insulin pen See Rx Instructions SUBCUT TID Qty: 27 2RF Rx Instructions: INJECT UNDER SKIN THREE TIMES DAILY BEFORE MEALS, BASED ON SLIDING SCALE PROVIDED- BACKUP IF PUMP NOT WORKING subcutaneously (DME) Omnipod 5 G6 Pods (Gen 5) Cartridge See Rx Instructions .ROUTE .COMPLEX Qty: 15 3RF Dose Instruction: CHANGE POD EVERY 3 DAYS Rx Instructions: CHANGE POD EVERY 3 DAYS insulin lispro 100 unit/mL solution See Rx Instructions .ROUTE .COMPLEX Qty: 10 0RF Dose Instruction: USE 150 UNITS DAILY DIRECTED VIA PUMP Rx Instructions: USE 150 UNITS DAILY DIRECTED VIA PUMP (DME) blood sugar diagnostic Strip See Rx Instructions .Route Qty: 100 0RF Rx Instructions: As directed (DME) Blood Glucose Test Strip See Rx Instructions .Route Qty: 100 0RF Rx Instructions: As directed (DME) blood-glucose meter [Blood Glucose Monitoring] Kit See Rx Instructions .Route Qty: 1 0RF Rx Instructions: As directed (DME) strips See Rx Instructions .Route .MEDSUPPLY Qty: 200 3RF Rx Instructions: Check blood sugars 3 times daily, before meals (DME) lancets See Rx Instructions .Route .MEDSUPPLY Qty: 200 1RF Rx Instructions: Check blood sugars 3 times daily, before meals mupirocin 2 % ointment 1 applic topical TID PRN (Reason: unknown) Levemir FlexPen 100 unit/mL (3 mL) insulin pen See Rx Instructions .ROUTE .COMPLEX Rx Instructions: 30 units at bedtime when not wearing pump multivitamin Tablet 1 tab PO DAILY Discharge Orders: Discharge Order (Routine); Ordered 04/23/24 Ordered By: Jase Luna Referrals: Earlene Titus FNP-C [Primary Care Provider] - Discharge Diet: Diabetic Discharge Activity: Resume usual activity and Increase activity as tolerated Patient Instructions: Opioid Safety Discharge Attestations Time Spent in Discharge Care*: greater than 30 min Specific Discharge Activities: educating patient, discussing with pcp/other providers, discussing with dependency case manager/social workers/dc planners, documenting/other paperwork and evaluating patient/reviewing data Status at Discharge: Cognitive status at discharge: cognitively intact , Behavioral status at discharge: cooperative , Functional status at discharge: independent ambulation , Overall status at discharge: patient is back to baseline Quality Metrics Clinical Quality Measures [ No reported AMI, CVA or VTE this stay] Coding Level of Care Code 52640 Total time (in minutes) for Discharge: 60 Diagnoses DKA (diabetic ketoacidosis) E10.10 Diabetes mellitus complication detail: without coma Diabetes mellitus type: type 1
--- NOTE | 2024-04-23 09:20 | PC.NURSE ---
Discharge Note Patient discharged to home via wheelchair. Discharge instructions reviewed with patient, verbalized understanding of teaching. Belongings returned to patient upon discharge.
== END 2024-04-23 09:20 | disposition home or self-care (01) | DRG 638 ==
LOC: ER 07:29 → ICU 08:32
PROVIDERS: Emergency Medicine; Admitting Provider Internal Medicine; Emergency Provider Emergency Medicine; PCP Nurse Practitioner Family; Visit Provider Student in an Organized Health Care Education/Training Program
DX: E10.10 Type 1 diabetes mellitus with ketoacidosis without coma (principal); J98.11 Atelectasis; Z96.41 Presence of insulin pump (external) (internal); E86.0 Dehydration; J40 Bronchitis, not specified as acute or chronic; F12.90 Cannabis use, unspecified, uncomplicated
CPT/HCPCS: 36415; 36416; 36600; 71045; 71250; 80048; 80053; 80306; 81003; 81015; 82009; 82803; 82962; 83735; 84100; 85025; 87635; 96365; 96367; 96372; 96374; 96375; 96376; 99285; J1650; J1815; J2405; J2470; J3480; J7030

== ENCOUNTER 2024-07-12 08:11 | Emergency (ER) | payer MEDICARE, MEDICAID, SELFPAY ==
[2024-07-12 08:12] VITALS: BP 123/88; PULSE 77; RESP 20; TEMP 36.8; O2SAT 99; BMI 19.9
[2024-07-12 08:19] LABS: Glucose Point of Care 264 mg/dL (70-110)
--- NOTE | 2024-07-12 08:29 | W.ED.ABDPA2 ---
HPI - Abdominal Pain General: Chief Complaint: Abdominal Pain Stated Complaint: n/v abd pain Time Seen by Provider: 07/12/24 08:23 History of Present Illness: 29-year-old male presents emergency room with persistent nausea vomiting complaining of abdominal pain. Patient is well-known patient to us has a history of diabetic ketoacidosis. He is complaining of nausea vomiting some abdominal cramping and pain. He has an insulin pump when she is actually doing better with since he got he said far less episodes of DKA. He denies any fever sweats chills no hematemesis or coffee-ground emesis Associated Symptoms: Reports nausea and vomiting; Denies chills, dysuria and fever(s) Related Data Previous Rx's Medication Instructions Recorded blood sugar diagnostic #100 ea 03/20/21 blood sugar diagnostic (Blood #100 ea 03/20/21 Glucose Test strips) blood-glucose meter (Blood Glucose #1 ea 03/20/21 Monitoring kit) lancets #200 ea 05/17/21 strips #200 ea 05/17/21 lancets #200 ea 06/18/21 strips #1 ea 06/18/21 blood-glucose meter,continuous #1 10/18/22 (Dexcom G6 Pens And Pencils Dipper) blood-glucose sensor (Dexcom G6 #9 ea 10/18/22 Sensor device) blood-glucose transmitter (Dexcom #3 ea 10/18/22 G6 Transmitter device) insulin pump cartridge,automated #1 ea 10/18/22 dose,BT with controller subcutaneous (Omnipod 5 G6 Intro Kit (Gen 5) subcutaneous cartridge with controller) insulin lispro 100 unit/mL See Rx Instructions .Route 04/18/24 subcutaneous solution .COMPLEX #10 mL insulin pump cart,automated,BT #15 ea 05/14/24 (Omnipod 5 G6 Pods (Gen 5) subcutaneous cartridge) Allergies Allergy/AdvReac Type Severity Reaction Status Date / Time ondansetron [From Zofran] Allergy Intermediate jittery/swe Verified 07/12/24 12:27 lling promethazine [From Phenergan] Allergy Unknown Verified 06/08/24 08:09 Review of Systems Const: Denies: fever(s) or chills Card: Denies: chest pain Resp: Denies: dyspnea GI: Reports: abdominal pain, nausea and vomiting : Denies: dysuria, urinary frequency or urinary urgency Musc: Denies: neck pain or back pain Skin/Breast: Denies: rash PFSH ED PFSH: Medical History Abdominal pain High anion gap metabolic acidosis DKA (diabetic ketoacidosis) Diabetic keto-acidosis Hyperglycemia Nausea & vomiting Noncompliance with diabetes treatment Methamphetamine abuse DKA (diabetic ketoacidoses) History of pancreatitis Long-term insulin use Hypoglycemia due to insulin Uncontrolled type 1 diabetes mellitus Pancreatitis Marijuana use GERD (gastroesophageal reflux disease) Type 1 diabetes With recurrent admissions for DKA, severe Surgical History No pertinent past surgical history Family History Other Diabetes Social History Smoking and tobacco/nicotine status: never used tobacco/nicotine Alcohol intake: never Substance/Drug Use: former Date of last use: Marijuana abuse Lives independently: Yes Household members: family Marital status: Single Current occupational status: disabled Physical Exam Const: GENERAL APPEARANCE: cooperative ORIENTATION/CONSCIOUSNESS: Yes awake, Yes oriented to person, Yes oriented to place and Yes oriented to time HENMT: COMMON NORMALS: normocephalic, atraumatic and hearing grossly normal bilaterally HEAD & SCALP: normocephalic and atraumatic Resp: COMMON NORMALS: normal respiratory effort, No retractions, No use of accessory muscles and clear to auscultation bilaterally AUSCULTATION: clear to auscultation bilaterally Cardio: COMMON NORMALS: regular rhythm and No murmurs present (Cardio) RATE: tachycardic RHYTHM: regular rhythm GI: COMMON NORMALS: Soft to palpation and No hepatosplenomegaly present AUSCULTATION: Yes normoactive bowel sounds PALPATION: Yes Soft to palpation, No Tenderness to palpation present (GI), No Guarding due to palpation present (GI) and Yes No hepatosplenomegaly present Extremity: COMMON NORMALS: normal to inspection, capillary refill normal, no clubbing, cyanosis or edema, no calf tenderness and no pedal edema Neuro: SENSORIUM/ORIENTATION: Yes oriented to person, Yes oriented to place and Yes oriented to time Skin: COMMON NORMALS: no rashes or lesions noted GENERAL SKIN EXAM: no rashes or lesions noted Course Vital Signs: Vital signs: Vital Signs Temperature 98.2 F 07/12/24 08:12 Pulse Rate 74 07/12/24 11:24 Respiratory Rate 20 H 07/12/24 08:12 Blood Pressure 157/99 07/12/24 11:24 Pulse Oximetry 100 07/12/24 11:24 Oxygen Delivery Me thod Room Air 07/12/24 08:12 MDM - Abdominal Pain Medical Decision Making Patient wavered [id number] about staying I encouraged him to stay on a couple different conversations. We did do a CT there is a question of intussusception I think it is probably just hyperactivity in his abdomen. He has not had any bloody stools. Is probably transient motility issue time he left he was not having significant pain he said he felt much better. We did not get all of her lab work back because he had some difficulty with hemolysis his white count was not elevated. We never did get a chemistry back. Blood gas did not show metabolic acidosis. I also did not get his ketones back because of difficulty with blood draws. He opted to leave he is aware that he can return if at any point he is getting worse or would like to complete the workup Medical Records I reviewed the patient's medical records. Lab Data I reviewed the patient's lab results. 07/12/24 08:21 07/12/24 09:25 Labs/Radiology: Radiology Impressions Abdomen/Pelvis CT 07/12/24 10:13 IMPRESSION: 1. Fatty infiltration of the liver. 2. Small bowel small bowel intussusception left midabdomen. No proximal bowel dilatation is appreciated. Potentially this could be transient. Recommend clinical correlation. Laboratory Results WBC 5.79 10^3/uL (3.29-11.43) 07/12/24 08:21 RBC 5.15 10^6/uL (3.85-5.65) 07/12/24 08:21 Hgb 15.80 g/dL (11.27-16.99) 07/12/24 08:21 Hct 46.0 % (37-53) 07/12/24 08:21 MCV 89.3 fl (82-101) 07/12/24 08:21 MCH 30.7 pg (27-33) 07/12/24 08:21 MCHC 34.3 g/dL (30-55) 07/12/24 08:21 RDW 12.0 % (12.1-15.1) L 07/12/24 08:21 Plt Count 232 10^3/cmm (157-399) 07/12/24 08:21 MPV 10.1 fL (7.4-10.4) 07/12/24 08:21 Neut % (Auto) 79.1 % 07/12/24 08:21 Lymph % (Auto) 13.1 % 07/12/24 08:21 [place] % (Auto) 6.7 % 07/12/24 08:21 Eos % (Auto) 0.3 % 07/12/24 08:21 Baso % (Auto) 0.5 % 07/12/24 08:21 Neut # (Auto) 4.57 10^3/uL (1.8-7.7) 07/12/24 08:21 Lymph # (Auto) 0.8 10^3/uL (0.8-4.8) 07/12/24 08:21 [place] # (Auto) 0.4 10^3/uL (0.2-0.9) 07/12/24 08:21 Eos # (Auto) 0.0 10^3/uL (0.0-0.8) 07/12/24 08:21 Baso # (Auto) 0.0 10^3/uL (0.0-0.1) 07/12/24 08:21 Nucleated RBC % (auto) 0 % 07/12/24 08:21 Nucleated RBCs # 0.0 /100WBC 07/12/24 08:21 Specimen Type Arterial 07/12/24 08:22 Sample Site Radial, left 07/12/24 08:22 ABG pH 7.46 (7.35-7.45) H 07/12/24 08:22 ABG pCO2 35.6 mmHg (35-45) 07/12/24 08:22 ABG pO2 101.0 mmHg (80.0-100.0) H 07/12/24 08:22 ABG PO2/FiO2 Ratio 480 07/12/24 08:22 ABG HCO3 25.2 mmol/L (22-26) 07/12/24 08:22 ABG O2 Saturation 98.8 07/12/24 08:22 ABG Base Excess 1.7 mmol/L (-2.0-2.0) 07/12/24 08:22 Hasmukh Test Pos 07/12/24 08:22 A-a O2 Gradient 0.6 mmHg (5-10) L 07/12/24 08:22 Hematocrit 47.6 % (42-52) 07/12/24 08:22 Hgb O2 Saturation 96.7 % (95-100) 07/12/24 08:22 Carboxyhemoglobin 1.3 %THgb (0.4-20.1) 07/12/24 08:22 Methemoglobin 1.0 % (0.4-1.5) 07/12/24 08:22 Total Hemoglobin 15.5 g/dL (14-18) 07/12/24 08:22 Sodium 137.0 mmol/L (131-143) 07/12/24 08:22 Potassium 3.6 mmol/L (3.5-5.0) 07/12/24 08:22 Glucose 244.0 mg/dL (70-115) H 07/12/24 08:22 Ionized Calcium 1.1 mmol/L (1.1-1.4) 07/12/24 08:22 O2 Delivery Device Room air 07/12/24 08:22 FiO2 21.0 % 07/12/24 08:22 Silo Painter ID Esther 07/12/24 08:22 Sodium Cancelled 07/12/24 09:25 Potassium Cancelled 07/12/24 09:25 Chloride Cancelled 07/12/24 09:25 Carbon Dioxide Cancelled 07/12/24 09:25 Anion Gap Cancelled 07/12/24 09:25 BUN Cancelled 07/12/24 09:25 Creatinine Cancelled 07/12/24 09:25 GFR Calculation Cancelled 07/12/24 09:25 Glucose Cancelled 07/12/24 09:25 POC Glucose 264 mg/dL (70-110) H 07/12/24 08:15 Calculated Osmolality Cancelled 07/12/24 09:25 Calcium Cancelled 07/12/24 09:25 Magnesium Cancelled 07/12/24 09:25 Total Bilirubin Cancelled 07/12/24 09:25 AST Cancelled 07/12/24 09:25 ALT Cancelled 07/12/24 09:25 Alkaline Phosphatase Cancelled 07/12/24 09:25 Total Protein Cancelled 07/12/24 09:25 Albumin Cancelled 07/12/24 09:25 Globulin Cancelled 07/12/24 09:25 Lipase Cancelled 07/12/24 09:25 Urine Color Yellow (Yellow) 07/12/24 08:36 Urine Appearance Clear (CLEAR) 07/12/24 08:36 Urine pH 5.5 (5-7) 07/12/24 08:36 Ur Specific [place] 1.045 (1.005-1.030) H 07/12/24 08:36 Urine Protein 2+ (Negative) H 07/12/24 08:36 Urine Glucose (UA) 2+ (Normal) H 07/12/24 08:36 Urine Ketones 4+ (Negative) 07/12/24 08:36 Urine Blood Neg (Negative) 07/12/24 08:36 Urine Nitrate Negative (Negative) 07/12/24 08:36 Urine Bilirubin Neg (Negative) 07/12/24 08:36 Urine Urobilinogen Norm mg/dL (Negative) 07/12/24 08:36 Ur Leukocyte Esterase Negative (Negative) 07/12/24 08:36 Urine RBC 0-4 /hpf (0-2) H 07/12/24 08:36 Urine WBC 0-4 /hpf (0-5) H 07/12/24 08:36 Ur Squamous Epith Cells 0-4 /hpf (0-5) H 07/12/24 08:36 Amorphous Sediment Not Reportable 07/12/24 08:36 Urine Bacteria None /hpf (NONE) 07/12/24 08:36 Serum Ketones Cancelled 07/12/24 09:25 All radiology interpretation(s) finalized by discharge Discharge Plan Discharge Patient Disposition: Left Against Medical Advice Clinical Impression: Type 1 diabetes, Intractable nausea and vomiting Condition: Stable Prescriptions: No Action (DME) Omnipod 5 G6 Intro Kit (Gen 5) Cartridge See Rx Instructions .ROUTE .MEDSUPPLY Qty: 1 0RF Rx Instructions: As directed (DME) Dexcom G6 Pens And Pencils Dipper Misc See Rx Instructions .ROUTE .MEDSUPPLY Qty: 1 0RF Rx Instructions: takes blood sugar (DME) Dexcom G6 Sensor Device See Rx Instructions .ROUTE .MEDSUPPLY Qty: 9 3RF Rx Instructions: Change every 10 days (DME) Dexcom G6 Transmitter Device See Rx Instructions .ROUTE .MEDSUPPLY Qty: 3 3RF Rx Instructions: change every 90 days (DME) strips See Rx Instructions .Route .MEDSUPPLY Qty: 1 3RF Rx Instructions: Check blood sugars 3 times daily, with meals, #200, 3 refills (DME) lancets Misc See Rx Instructions .Route Qty: 200 3RF Rx Instructions: check BS, TID with meals insulin lispro 100 unit/mL solution See Rx Instructions .ROUTE .COMPLEX Qty: 10 0RF Dose Instruction: USE 150 UNITS DAILY DIRECTED VIA PUMP Rx Instructions: USE 150 UNITS DAILY DIRECTED VIA PUMP (DME) Omnipod 5 G6 Pods (Gen 5) Cartridge See Rx Instructions .ROUTE .COMPLEX Qty: 15 3RF Dose Instruction: CHANGE POD EVERY 3 DAYS Rx Instructions: CHANGE POD EVERY 3 DAYS (DME) blood sugar diagnostic Strip See Rx Instructions .Route Qty: 100 0RF Rx Instructions: As directed (DME) Blood Glucose Test Strip See Rx Instructions .Route Qty: 100 0RF Rx Instructions: As directed (DME) blood-glucose meter [Blood Glucose Monitoring] Kit See Rx Instructions .Route Qty: 1 0RF Rx Instructions: As directed (DME) strips See Rx Instructions .Route .MEDSUPPLY Qty: 200 3RF Rx Instructions: Check blood sugars 3 times daily, before meals (DME) lancets See Rx Instructions .Route .MEDSUPPLY Qty: 200 1RF Rx Instructions: Check blood sugars 3 times daily, before meals Referrals: Earlene Titus FNP-C [Primary Care Provider] - Coding Level of Care Code 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
[2024-07-12 08:31] LABS: Basophils % 0.5 %; Eosinophils % 0.3 %; Lymphocytes # 0.8 10^3/uL (0.8-4.8); Lymphocytes % 13.1 %; Mean Corpuscular HGB Conc 34.3 g/dL (30-55); Mean Corpuscular Hemoglobin 30.7 pg (27-33); Mean Corpuscular Volume 89.3 fl (82-101); Mean Platelet Volume 10.1 fL (7.4-10.4); Monocytes # 0.4 10^3/uL (0.2-0.9); Monocytes % 6.7 %; Neutrophils # 4.57 10^3/uL (1.8-7.7); Neutrophils % 79.1 %; Nucleated Red Blood Cells % 0 %; Platelet Count 232 10^3/cmm (157-399); Red Blood Count 5.15 10^6/uL (3.85-5.65); White Blood Count 5.79 10^3/uL (3.29-11.43)
[2024-07-12 08:33] LABS: ABG PCO2 35.6 mmHg (35-45); ABG PH Result 7.46 (7.35-7.45); Alveolar-Arterial Oxygen Gradi 0.6 mmHg (5-10); Arterial Blood Gas Hematocrit 47.6 % (42-52); Base Excess ABG 1.7 mmol/L (-2.0-2.0); Blood Gas Allen Test Pos; Blood Gas Operator Identificat WALCI; Blood Gas Sample Site Radial, left; Blood Gas Sample Type Arterial; Carboxyhemoglobin 1.3 %THgb (0.4-20.1); HCO3 ABG 25.2 mmol/L (22-26); HGB O2 Sat 96.7 % (95-100); Ionized Calcium Level - ABG 1.1 mmol/L (1.1-1.4); Oxygen Device ROOM AIR; Oxygen Saturation ABG 98.8; PO2 FiO2 Ratio Arterial Blood 480; Potassium Level - ABG 3.6 mmol/L (3.5-5.0); Total Hemoglobin 15.5 g/dL (14-18)
[2024-07-12] MEDS: sodium chloride 0.9% 1,000 ML 999 ML IV ×2 (08:37→09:26)
[2024-07-12] MEDS: ondansetron 2 mg/ML SDV 2 mL 4 MG IVP (08:37)
[2024-07-12 09:09] LABS: Add Urine Microscopic? YES; Bilirubin Urine Neg (Negative); Blood Urine Neg (Negative); Glucose Urine UA 2+ (Normal); Ketones Urine 4+ (Negative); Leukocyte Esterase Urine Negative (Negative); Nitrate Urine Negative (Negative); Protein Urine 2+ (Negative); RBC Urine 0-4 /hpf (0-2); Specific Gravity, Urine 1.045 (1.005-1.030); Urine Appearance Clear (CLEAR); Urine Color Yellow (Yellow); Urobilinogen Urine Norm (Negative); pH Urine 5.5 (5-7)
[2024-07-12 09:10] LABS: Add Urine Culture? No; Squamous Epithelial Cell Urine 0-4 /hpf (0-5); WBC Urine 0-4 /hpf (0-5)
--- NOTE | 2024-07-12 10:13 | CTR_ITS ---
PROCEDURE INFORMATION: Exam: CT Abdomen And Pelvis With Contrast Exam date and time: 07/12/2024 10:25 AM Age: 29 years old Clinical indication: Abdominal pain; Generalized; Additional info: Abd pain TECHNIQUE: Imaging protocol: Computed tomography of the abdomen and pelvis with contrast. Radiation optimization: All CT scans at this facility use at least one of these dose optimization techniques: automated exposure control; mA and/or kV adjustment per patient size (includes targeted exams where dose is matched to clinical indication); or iterative reconstruction. Contrast material: OMNIPAQUE 350; Contrast volume: 100 ml; Contrast route: INTRAVENOUS (IV); COMPARISON: CT abdomen pelvis w con* [id number] 02/16/2022 4:38 PM RADIATION DOSE METRICS: Total DLP (mGy-cm): 399.15 FINDINGS: Lungs: Lung bases are clear as visualized. Liver: There is diffuse fatty infiltration of the liver. The liver is otherwise normal. Gallbladder and biliary ducts: Normal. No calcified stones. No ductal dilation. Pancreas: Normal. No ductal dilation. Spleen: Normal. No splenomegaly. Adrenal glands: Normal. No mass. Kidneys and ureters: Normal. No hydronephrosis. Stomach and bowel: No dilated loops of large or small bowel is appreciated. There is a small bowel small bowel intussusception within the left midabdomen measuring 7.58 cm in length. No proximal bowel dilatation is appreciated. No bowel wall thickening is noted. Appendix: No evidence of appendicitis. Intraperitoneal space: Unremarkable. No free air. No significant fluid collection. Vasculature: Unremarkable. No abdominal aortic aneurysm. Lymph nodes: Unremarkable. No enlarged lymph nodes. Urinary bladder: Unremarkable as visualized. Reproductive: Unremarkable as visualized. Bones/joints: Unremarkable. No acute fracture. Soft tissues: Unremarkable. CT/CT abdomen pelvis w con* [id number] IMPRESSION: 1. Fatty infiltration of the liver. 2. Small bowel small bowel intussusception left midabdomen. No proximal bowel dilatation is appreciated. Potentially this could be transient. Recommend clinical correlation.
[2024-07-12] MEDS: iohexol 350 mg/mL 500 mL Btl (per mL) IV (10:31)
[2024-07-12] MEDS: LORazepam 2 mg/mL INJ 1 mL IVP (11:21)
[2024-07-12 11:24] VITALS: BP 157/99; PULSE 74; O2SAT 100
--- NOTE | 2024-07-12 12:55 | PC.NURSE ---
PATIENT WISHING TO LEAVE AMA AT 1115 AM. NURSE AT THAT TIME SPOKE WITH PATIENT AND HE DECIDED TO STAY. NURSE SMALLWOOD ENTERED PATIENT ROOM AT 1245, PATIENT HAD PULLED OUT ONE IV AND STATED THAT HE WAS READY TO LEAVE AMA. PATIENT WAS MADE AWARE OF RISKS AND BENEFITS BY PROVIDER AND NURSE. PATIENT CHOSE TO CONTINUE TO LEAVE AMA. PAPERWORK SIGNED.
== END 2024-07-12 12:57 | disposition left against medical advice (07) ==
PROVIDERS: Emergency Provider Family Medicine; PCP Nurse Practitioner Family
DX: E10.10 Type 1 diabetes mellitus with ketoacidosis without coma (principal); R11.2 Nausea with vomiting, unspecified
CPT/HCPCS: 36416; 36600; 74177; 80051; 81001; 82330; 82805; 82962; 85025; 96361; 96374; 96375; 99285; J2060; J2405; J7030

== ENCOUNTER 2024-09-16 13:29 | Inpatient (IN) | payer MEDICARE, MEDICAID, SELFPAY ==
[2024-09-16] VITALS (38 sets, daily range): BP systolic 85–135; BP diastolic 31–76; PULSE 60–142; RESP 16–35; TEMP 36.6–36.7; O2SAT 90–100; BMI 24.1; BMI 25.0
[2024-09-16 14:00] LABS: Glucose Point of Care > 600 mg/dL (70-110)
[2024-09-16 14:09] LABS: Basophils # 0.1 10^3/uL (0.0-0.1); Basophils % 0.4 %; Hematocrit 49.7 % (37-53); Ketone (Acetest) Serum Positive (Negative); Lymphocytes # 0.6 10^3/uL (0.8-4.8); Lymphocytes % 3.1 %; Mean Corpuscular HGB Conc 31.8 g/dL (30-55); Mean Corpuscular Hemoglobin 30.6 pg (27-33); Mean Corpuscular Volume 96.1 fl (82-101); Mean Platelet Volume 10.7 fL (7.4-10.4); Monocytes # 0.7 10^3/uL (0.2-0.9); Monocytes % 3.6 %; Neutrophils # 18.73 10^3/uL (1.8-7.7); Neutrophils % 91.8 %; Nucleated Red Blood Cells % 0 %; Platelet Count 338 10^3/cmm (157-399); Red Blood Count 5.17 10^6/uL (3.85-5.65); Red Cell Distribution Width 12.3 % (12.1-15.1); White Blood Count 20.42 10^3/uL (3.29-11.43)
[2024-09-16 14:18] LABS: Alanine Aminotransferase 17 U/L (0-41); Albumin Level 4.5 g/dL (3.5-5.2); Alkaline Phosphatase 76 U/L (40-130); Anion Gap 47.6 (5-19); Aspartate Amino Transferase 22 U/L (0-40); Blood Urea Nitrogen 36 mg/dL (6-20); Calcium 9.6 mg/dL (8.5-10.5); Chloride 82 mmol/L (98-107); Creatinine Clr Calc Pharmacy 55.1123; Glomerular Filtration Rate 45.5 mL/min (90-130); Magnesium 2.3 mg/dL (1.7-2.3); Sodium 127 mmol/L (136-145); Total Bilirubin 0.5 mg/dL (0.15-1.2); Total Protein 7.5 g/dL (6.6-8.7)
--- NOTE | 2024-09-16 14:18 | ED_ITS ---
HPI - General Adult 2 General: Chief complaint: General Medical Stated complaint: hyperglycemia Time Seen by Provider: 09/16/24 13:34 History of Present Illness: 29-year-old male diabetic presents emerg ency department with EMS who reports blood sugar over 500. The patient has been nauseated, vomiting, breathing hard, and feeling ill. He has recurrent episodes of DKA. He does follow with endocrinology. He does use an insulin pump. The patient has an OmniPod on his right flank. Part of the OmniPod is peeled up. Is unclear whether it was actually delivering any medication. He states he last changed yesterday. Patient does not have his phone on him to determine whether there has been any errors registering on his device. We went ahead and removed the OmniPod. 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 We will begin resuscitation. Related Data Previous Rx's Medication Instructions Recorded blood sugar diagnostic #100 ea 03/20/21 blood sugar diagnostic (Blood #100 ea 03/20/21 Glucose Test strips) blood-glucose meter (Blood Glucose #1 ea 03/20/21 Monitoring kit) lancets #200 ea 05/17/21 strips #200 ea 05/17/21 lancets #200 ea 06/18/21 strips #1 ea 06/18/21 blood-glucose meter,continuous #1 ea 10/18/22 (Dexcom G6 Liability Claims Examiner) blood-glucose sensor (Dexcom G6 #9 ea 10/18/22 Sensor device) blood-glucose transmitter (Dexcom #3 ea 10/18/22 G6 Transmitter device) insulin pump cartridge,automated #1 ea 10/18/22 dose,BT with controller subcutaneous (Omnipod 5 G6 Intro Kit (Gen 5) subcutaneous cartridge with controller) insulin lispro 100 unit/mL See Rx Instructions .Route 04/18/24 subcutaneous solution .COMPLEX #10 mL insulin pump cart,auto,BT,G6/7 #15 ea 08/30/24 (Omnipod 5 G6-G7 Pods (Gen 5) subcutaneous cartridge) Allergies Allergy/AdvReac Type Severity Reaction Status Date / Time ondansetron [From Zofran] Allergy Intermediate jittery/swe Verified 07/12/24 12:27 lling promethazine [From Phenergan] Allergy Unknown Verified 06/08/24 08:09 Review of Systems 2 Narrative: Review of systems is positive for fatigue, weakness, nausea, vomiting, stomach cramping, dry mouth, excessive thirst. PFSH ED 2 PFSH: Medical History Abdominal pain High anion gap metabolic acidosis DKA (diabetic ketoacidosis) Diabetic keto-acidosis Hyperglycemia Nausea & vomiting Noncompliance with diabetes treatment Methamphetamine abuse DKA (diabetic ketoacidoses) History of pancreatitis Long-term insulin use Hypoglycemia due to insulin Uncontrolled type 1 diabetes mellitus Pancreatitis Marijuana use GERD (gastroesophageal reflux disease) Type 1 diabetes With recurrent admissions for DKA, severe Surgical History No pertinent past surgical history Family History Other Diabetes Social History Smoking and tobacco/nicotine status: never used tobacco/nicotine Alcohol intake: never Substance/Drug Use: former Date of last use: Marijuana abuse Lives independently: Yes Household members: family Marital status: Single Current occupational status: disabled Physical Exam 2 Narrative: EXAM NARRATIVE: 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 Patient is nauseated and is uncomfortable with abdominal exam but no focal tenderness. Const: COMMON NORMALS: alert and well nourished HENMT: COMMON NORMALS: normocephalic, atraumatic and external ears normal H EAD & SCALP: normocephalic and atraumatic EXTERNAL EAR: Yes external ears normal Eye: COMMON NORMALS: EOMs intact bilaterally, conjunctivae normal and no scleral icterus CONJUNCTIVA: Yes conjunctivae normal Neck/C-Spine: COMMON NORMALS: no JVD GENERAL: Yes normal visual inspection and Yes trachea midline Resp: COMMON NORMALS: clear to auscultation bilaterally AUSCULTATION: clear to auscultation bilaterally Cardio: COMMON NORMALS: no JVD and regular rhythm RHYTHM: regular rhythm GI: COMMON NORMALS: Soft to palpation and non-tender PALPATION: Yes Soft to palpation and No Guarding due to palpation present (GI) Extremity: COMMON NORMALS: normal to inspection Neuro: COMMON NORMALS: moves all extremities, no focal motor deficits and no sensory deficits noted SENSORIUM/ORIENTATION: Yes alert SPEECH: speech normal Psych: COMMON NORMALS: mental status grossly normal, Normal thought process present, cooperative, normal affect and speech normal SPEECH: Yes normal speech THOUGHT PROCESS: Normal thought process present Skin: COMMON NORMALS: no jaundice Course 2 Vital Signs: Vital signs: Vital Signs Temperature 97.8 F 09/16/24 13:30 Pulse Rate 134 H 09/16/24 13:57 Respiratory Rate 20 H 09/16/24 13:57 Blood Pressure 113/31 09/16/24 13:57 Pulse Oximetry 99 09/16/24 13:57 Oxygen Delivery Me thod Room Air 09/16/24 13:57 MDM - General Adult Medical Decision Making Patient probably in diabetic ketoacidosis. He has tachycardia, hypovolemia, kussmaul breathing. Blood sugar greater than 600 on arrival. Patient will be resuscitated with 3 L of IV fluids, VBG, CBC, CMP, mag, Phos, UA. Update 1440 Patient's VBG confirms metabolic acidosis with a pH of 7.029, pCO2 of 21.5, calculated serum bicarb 5.7. VBG and blood sample both show hyperkalemia with a potassium of 7.6. EKG was added and is pending. I have added calcium gluconate, bicarbonate, Kayexalate to his treatment. Patient is noted to have acute kidney injury and elevated BUN. This is likely hyperglycemic diuresis with hypovolemia. 3 L of NS has been ordered and then the patient will be started on maintenance fluids at 150 an hour. DKA protocol has been started. White blood cell count is 20,000, hemoconcentrated hemoglobin and hematocrit. Pseudohyponatremia with a serum glucose of 944. Bicarb is very low and anion gap is increased. Patient will need to go to the ICU for DKA and hyperkalemia. Dr Luna consulted for admission to the ICU. EKG shows sinus tachycardia, rate 135, peaked T waves and an incomplete right bundle branch block Lab Data 09/16/24 13:39 09/16/24 13:39 Laboratory Results WBC 20.42 10^3/uL (3.29-11.43) H 09/16/24 13:39 RBC 5.17 10^6/uL (3.85-5.65) 09/16/24 13:39 Hgb 15.80 g/dL (11.27-16.99) 09/16/24 13:39 Hct 49.7 % (37-53) 09/16/24 13:39 MCV 96.1 fl (82-101) 09/16/24 13:39 MCH 30.6 pg (27-33) 09/16/24 13:39 MCHC 31.8 g/dL (30-55) 09/16/24 13:39 RDW 12.3 % (12.1-15.1) 09/16/24 13:39 Plt Count 338 10^3/cmm (157-399) 09/16/24 13:39 MPV 10.7 fL (7.4-10.4) H 09/16/24 13:39 Neut % (Auto) 91.8 % 09/16/24 13:39 Lymph % (Auto) 3.1 % 09/16/24 13:39 [place] % (Auto) 3.6 % 09/16/24 13:39 Eos % (Auto) 0.0 % 09/16/24 13:39 Baso % (Auto) 0.4 % 09/16/24 13:39 Neut # (Auto) 18.73 10^3/uL (1.8-7.7) H 09/16/24 13:39 Lymph # (Auto) 0.6 10^3/uL (0.8-4.8) L 09/16/24 13:39 [place] # (Auto) 0.7 10^3/uL (0.2-0.9) 09/16/24 13:39 Eos # (Auto) 0.0 10^3/uL (0.0-0.8) 09/16/24 13:39 Baso # (Auto) 0.1 10^3/uL (0.0-0.1) 09/16/24 13:39 Nucleated RBC % (auto) 0 % 09/16/24 13:39 Nucleated RBCs # 0.0 /100WBC 09/16/24 13:39 Specimen Type Arterial 09/16/24 14:20 Sample Site Not specified 09/16/24 14:20 Hasmukh Test N/a 09/16/24 14:20 VBG pH 7.03 (7.32-7.42) L* 09/16/24 14:20 VBG pCO2 21.5 mmHg (41-51) L 09/16/24 14:20 VBG pO2 71.2 mmHg (25-40) H 09/16/24 14:20 VBG HCO3 5.7 mmol/L (24-28) L 09/16/24 14:20 VBG Base Excess -23.6 mmol/L (-3.0-3.0) L 09/16/24 14:20 VBG Hematocrit 52.0 % (42-52) 09/16/24 14:20 O2 Delivery Device Room air 09/16/24 14:20 Manager State ID Amh 09/16/24 14:20 Sodium 127 mmol/L (136-145) L 09/16/24 13:39 Potassium 7.6 mmol/L (3.5-5.1) H* 09/16/24 13:39 Chloride 82 mmol/L (98-107) L 09/16/24 13:39 Carbon Dioxide 5 mmol/L (22-29) L* 09/16/24 13:39 Anion Gap 47.6 (5-19) H 09/16/24 13:39 BUN 36 mg/dL (6-20) H 09/16/24 13:39 Creatinine 1.8 mg/dL (0.7-1.2) H 09/16/24 13:39 GFR Calculation 45.5 mL/min (90-130) L 09/16/24 13:39 Glucose 944 mg/dL (65-115) H* 09/16/24 13:39 POC Glucose > 600 mg/dL (70-110) H* 09/16/24 13:57 Calculated Osmolality 319 mOsm/kg (285-295) H 09/16/24 13:39 Lactic Acid 7.0 mmol/L (0.5-2.2) H* 09/16/24 13:39 Calcium 9.6 mg/dL (8.5-10.5) 09/16/24 13:39 Phosphorus 8.8 mg/dL (2.5-4.5) H* 09/16/24 13:39 Magnesium 2.3 mg/dL (1.7-2.3) 09/16/24 13:39 Total Bilirubin 0.5 mg/dL (0.15-1.2) 09/16/24 13:39 AST 22 U/L (0-40) 09/16/24 13:39 ALT 17 U/L (0-41) 09/16/24 13:39 Alkaline Phosphatase 76 U/L (40-130) 09/16/24 13:39 Total Protein 7.5 g/dL (6.6-8.7) 09/16/24 13:39 Albumin 4.5 g/dL (3.5-5.2) 09/16/24 13:39 Globulin 3.0 g/dL (1.3-4.6) 09/16/24 13:39 Ethyl Alcohol < 10 mg/dL (0-10) 09/16/24 13:39 Serum Ketones Positive (Negative) H 09/16/24 13:39 No radiology studies performed this visit Critical Care Time 2 Critical Care Time: Attestation: 60 minutes of dedicated critical care ti me. This included evaluation of patient, discussion with nursing staff, review of EMS data, review of previous history and medications, reevaluation of the patient, ordering and interpreting tests, discussion with consultants, treatment of hyperkalemia and severe metabolic acidosis with widened anion gap. 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
[2024-09-16 14:25] LABS: Base Excess VBG -23.6 mmol/L (-3.0-3.0); Blood Gas Operator Identificat AMH; Blood Gas Sample Site Not specified; Blood Gas Sample Type Arterial; HCO3 VBG 5.7 mmol/L (24-28); Oxygen Device ROOM AIR; PCO2 VBG 21.5 mmHg (41-51); PO2 VBG 71.2 mmHg (25-40)
[2024-09-16 14:26] LABS: Osmolality Calculated 319 mOsm/kg (285-295)
[2024-09-16 14:27] LABS: pH VBG 7.03 (7.32-7.42)
[2024-09-16 14:29] LABS: Carbon Dioxide 5 mmol/L (22-29); Glucose 944 mg/dL (65-115); Phosphorus 8.8 mg/dL (2.5-4.5); Potassium 7.6 mmol/L (3.5-5.1)
[2024-09-16 14:40] LABS: Alcohol Level < 10 mg/dL (0-10)
--- NOTE | 2024-09-16 14:48 | ECG_ITS ---
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 Measurements Intervals [place] Rate: 135 P: 87 SC: 144 QRS: 113 QRSD: 113 T: 62 QT: 287 QTc: 431 Interpretive Statements SINUS TACHYCARDIA INCOMPLETE RIGHT BUNDLE BRANCH BLOCK [90+ ms QRS DURATION, TERMINAL R IN V1/V2, 40+ ms S IN I/aVL/V4/V5/V6] LEFT POSTERIOR FASCICULAR BLOCK [QRS AXIS > 109, INFERIOR Q] Compared to ECG 11/28/2023 13:46:34 Incomplete right bundle-branch block now present Left posterior fascicular block now present Sinus rhythm no longer present Electronically Signed On 09-18-2024 23:59:14 INGOT CAR OPERATOR by Zuleyma Llanos M.D. [email or web address]
[2024-09-16] MEDS: sodium chloride 0.9% 1,000 ML 999 ML IV ×3 (14:49→16:18)
[2024-09-16] MEDS: insulin regular-human 100 units/1 mL 10 UNIT IVP (14:50)
[2024-09-16 15:08] LABS: Glucose Point of Care > 600 mg/dL (70-110)
[2024-09-16 15:09] LABS: Reflex Lactate Order REFLEX LACTIC ORDERD
[2024-09-16] MEDS: INSULIN REGULAR IN 0.9 % NACL 100 UNIT/100 ML BAG 6.5 UNIT IV (15:12)
--- NOTE | 2024-09-16 15:23 | P.HP_ITS ---
Providers/Chief Complaint 2 Primary Care Provider: MARGE Castellano Chief Complaint: hyperglycemia History of Present Illness Salvatore Ott is a 29 year old male with past medical history of type 1 diabetes mellitus, recurrent admissions with DKA seen last admission back in August 2023 presented to the ER today because of recurrent episodes of nausea and vomiting. Found to be in DKA. Patient states he uses an insulin pump which has been working pretty well until last night when he got messed up. His insulin pump was found to be hanging on his back and Dexcom was found off on his arm. In the ER he was found to be with lactate of more than 7, hyperkalemia potassium more than 7, BALWINDER with creatinine of 1.8 with blood sugars of more than 900 with concerns for DKA was started on insulin with DKA protocol, 10 units of IV insulin, 3 l of NS fluid bolus, 500 of sodium bicarb bolus has been ordered out of which he has received the bolus insulin, and is getting his fluid boluses for now. Review of Systems 2 General: Reports: ROS unobtainable due to mental status Medications/Allergies Home Medications Medication Instructions Recorded Confirmed Last Taken Type blood sugar diagnostic #100 ea 03/20/21 07/12/24 Unknown Rx blood sugar diagnostic (Blood #100 ea 03/20/21 07/12/24 Unknown Rx Glucose Test strips) blood-glucose meter (Blood Glucose #1 ea 03/20/21 07/12/24 Unknown Rx Monitoring kit) lancets #200 ea 05/17/21 07/12/24 Unknown Rx strips #200 ea 05/17/21 07/12/24 Unknown Rx lancets #200 ea 06/18/21 07/12/24 Unknown Rx strips #1 ea 06/18/21 07/12/24 Unknown Rx blood-glucose meter,continuous #1 ea 10/18/22 07/12/24 Unknown Rx (Dexcom G6 Probation Agent) blood-glucose sensor (Dexcom G6 #9 ea 10/18/22 07/12/24 Unknown Rx Sensor device) blood-glucose transmitter (Dexcom #3 ea 10/18/22 07/12/24 Unknown Rx G6 Transmitter device) insulin pump cartridge,automated #1 ea 10/18/22 07/12/24 Unknown Rx dose,BT with controller subcutaneous (Omnipod 5 G6 Intro Kit (Gen 5) subcutaneous cartridge with controller) insulin lispro 100 unit/mL See Rx Instructions .Route 04/18/24 07/12/24 07/11/24 Rx subcutaneous solution .COMPLEX #10 mL insulin pump cart,auto,BT,G6/7 #15 ea 08/30/24 Unknown Rx (Omnipod 5 G6-G7 Pods (Gen 5) subcutaneous cartridge) Allergies Allergy/AdvReac Type Severity Reaction Status Date / Time ondansetron [From Zofran] Allergy Intermediate jittery/swe Verified 07/12/24 12:27 lling promethazine [From Phenergan] Allergy Unknown Verified 06/08/24 08:09 PFSH Acute 2 PFSH: Medical History (Updated 09/16/24 @ 15:30 by Jase Luna MD) Abdominal pain High anion gap metabolic acidosis DKA (diabetic ketoacidosis) Diabetic keto-acidosis Hyperglycemia Nausea & vomiting Noncompliance with diabetes treatment Methamphetamine abuse DKA (diabetic ketoacidoses) History of pancreatitis Long-term insulin use Hypoglycemia due to insulin Uncontrolled type 1 diabetes mellitus Pancreatitis Marijuana use GERD (gastroesophageal reflux disease) Type 1 diabetes With recurrent admissions for DKA, severe Surgical History No pertinent past surgical history Family History Other Diabetes Social History Smoking and tobacco/nicotine status: never used tobacco/nicotine Alcohol intake: never Substance/Drug Use: former Date of last use: Marijuana abuse Lives independently: Yes Household members: family Marital status: Single Current occupational status: disabled Vitals/I&O/Wt Last Vital Signs Temp 97.8 F 09/16/24 13:30 Pulse 134 H 09/16/24 13:57 Resp 20 H 09/16/24 13:57 BP 113/31 09/16/24 13:57 Pulse Ox 99 09/16/24 13:57 O2 Del Method Room Air 09/16/24 13:57 Weight last 48 hrs Weight 68.039 kg Weight 65.771 kg Physical Exam 2 Narrative: General: No acute distress, AO x 1 to 2, severely dehydrated, severely sick appearing HEENT: PERRLA, pupils bilaterally equal and reactive Chest: Normal vesicular breath sounds, no added sounds, equal good air entry bilaterally CVS: S1-S2 regular, no murmurs, tachycardia, no gallops, no rubs Abdomen: Soft, nontender, no organomegaly, bowel sounds present Neuro: No focal deficits, no facial deformity, Data 09/16/24 13:39 09/16/24 13:39 A&P Assessment and plan (1) DKA (diabetic ketoacidosis): Getting 3 L of IV fluid normal saline bolus. Associated with metabolic acidosis, elevated lactate, acute kidney injury. Start on insulin drip as per DKA protocol. NS at 150 cc/h for after fluid bolus. Switch to D5 NS once blood sugar below 250. Monitor BMP every 4 hours. Replace potassium once below 4. Currently patient is hyperkalemic. Blood sugar check every 1 hour. Qualifiers: Diabetes mellitus complication detail: without coma Diabetes mellitus type: type 1 Qualified Code(s): E10.10 - Type 1 diabetes mellitus with ketoacidosis without coma (2) BALWINDER (acute kidney injury): Most likely in setting of severe dehydration from DKA. IV fluid as above. Strict input output charting. Burger catheterization. (3) Acute hyperkalemia: Associated with DKA and dehydration. Does have EKG changes with peaked T waves. Received 2 g of IV calcium gluconate, sodium bicarb in the ER along with 10 units of insulin. Monitor every 4 hour as above. Monitor for hypokalemia as patient will be on insulin drip. Target over 4. (4) High anion gap metabolic acidosis: (5) Elevated lactic acid level: Most likely in setting of DKA. Less likely in setting of infectious process. Check blood culture. Empirically start on IV Zosyn for now. Fluid as above. Continue to monitor. (6) Hyperphosphatemia: (7) Sepsis: Cannot be ruled out. SIRS: Tachycardic, Leukocytosis Source: Possible UI End organ damage: Acute metabolic encephalopathy, BALWINDER Lactic acid elevated Patient recieveing full 30 mL/kg BW. Fluid as above after bolus Monitor blood pressures. Keep mean artery pressure 65 mmHg. Check Blood culture, Urinalysis, trend procalcitonin, Lipase, MRSA swab. Check CT abdomen pelvis without contrast. Empiric IV Zosyn for now. Will de-escalate if leukocytosis resolves within next 24 hours. Plan Check urine drug screen. Full code N.p.o. Heparin 5000 every 12 for DVT prophylaxis Protonix for PUD prophylaxis. Attestations 2 Medical Necessity Statement*: Admission for than 2 midnights for management of severe high anion gap metabolic acidosis, elevated lactate, BALWINDER, hyperkalemia in setting of diabetic ketoacidosis Critical Care Time: The high probability of a clinically significant, sudden or life threatening deterioration of the patient's [Endocrine, renal] system(s) required my full and direct attention, intervention and personal management. The critical care time is as shown. This time is in addition to time spent performing any reported procedures but includes the following: [x] Data and vital sign review and interpretation [x] Patient assessment, examination and intervention [x] Documentation [x] Medication orders and management Critical Care Time (min): 80 Coding Level of Care Code Critical Care >/= 30 minutes Critical care time (in minutes): 80 The high probability of a clinically significant, sudden or life threatening deterioration, as referenced in this documentation, required my full and direct attention, intervention and personal management. The critical care time shown is in addition to time spent performing any reported separately billable procedures and includes the following: [x] Data and vital sign review and interpretation [x ] Patient assessment, examination and intervention [x] Medication orders and management [x] Patient/Family updates as able [x] Care Coordination and Documentation. Diagnoses DKA (diabetic ketoacidosis) E10.10 Diabetes mellitus complication detail: without coma Diabetes mellitus type: type 1 BALWINDER (acute kidney injury) N17.9 Acute hyperkalemia E87.5 High anion gap metabolic acidosis E87.2 Elevated lactic acid level R79.89 Hyperphosphatemia E83.39 Sepsis A41.9
[2024-09-16 15:29] LABS: Procalcitonin 25.83 ng/mL (0-0.5)
--- NOTE | 2024-09-16 15:34 | CTR_ITS ---
PROCEDURE INFORMATION: Exam: CT Abdomen And Pelvis Without Contrast Exam date and time: 09/16/2024 4:11 PM Age: 29 years old Clinical indication: Other: Possible pancreatitis TECHNIQUE: Imaging protocol: Computed tomography of the abdomen and pelvis without contrast. Radiation optimization: All CT scans at this facility use at least one of these dose optimization techniques: automated exposure control; mA and/or kV adjustment per patient size (includes targeted exams where dose is matched to clinical indication); or iterative reconstruction. COMPARISON: CT abdomen pelvis w con* [id number] 07/12/2024 10:25 AM RADIATION DOSE METRICS: Total DLP (mGy-cm): 516.74 FINDINGS: Lungs: Stable tiny sub 6 mm nodules in the left lung base, of no clinical consequence in this patient. No follow-up is recommended according to current guidelines. Lung bases are otherwise clear. Liver: Liver is enlarged measuring 17 cm. Diffuse decrease in hepatic parenchymal density, consistent with fatty infiltration. Gallbladder and biliary ducts: Normal. No calcified stones. No ductal dilation. Pancreas: Normal. No ductal dilation. Spleen: Normal. No splenomegaly. Adrenal glands: Normal. No mass. Kidneys and ureters: Normal. No hydronephrosis. Stomach and bowel: Mild thickening and intraluminal fluid in several jejunal loops. Appendix: No evidence of appendicitis. Intraperitoneal space: Unremarkable. No free air. No significant fluid collection. Vasculature: Unremarkable. No abdominal aortic aneurysm. Lymph nodes: Unremarkable. No enlarged lymph nodes. Urinary bladder: Unremarkable as visualized. Reproductive: Unremarkable as visualized. Bones/joints: Unremarkable. No acute fracture. Soft tissues: Unremarkable. CT/CT abdomen pelvis wo con [id number]: 1[address] No CT evidence for acute pancreatitis at this time. 2. Mild thickening and intraluminal fluid in several jejunal loops. Questions mild jejunitis.
[2024-09-16] MEDS: calcium gluconate 0.1 gm/mL 10% SDV 10mL 2 GM IVP (15:48)
[2024-09-16 15:49] LABS: Glucose Point of Care > 600 mg/dL (70-110)
[2024-09-16] MEDS: sodium polystyrene sulfonate 15 gm/60 mL Btl 30 GM PR (15:49)
[2024-09-16 16:11] LABS: Lipase 8 U/L (13-60)
[2024-09-16] MEDS: piperacillin-tazobactam 3.375 GM in sodium chloride 0.9% (plus) 50 ML IV (16:17)
[2024-09-16 16:19] LABS: Bilirubin Urine Negative (Negative); Blood Urine Negative (Negative); Glucose Urine UA 3+ (Normal); Ketones Urine 3+ (Negative); Leukocyte Esterase Urine Negative (Negative); Nitrate Urine Negative (Negative); Protein Urine 1+ (Negative); Specific Gravity, Urine 1.028 (1.005-1.030); Urine Appearance Clear (CLEAR); Urine Color Yellow (Yellow); Urobilinogen Urine 0.2 mg/dL (Negative)
[2024-09-16 16:24] LABS: Add Urine Microscopic? YES; Bacteria Urine None Seen /hpf; Hyaline Casts Urine 13.22 /lpf; RBC Urine 0-2 /hpf (0-2); Squamous Epithelial Cell Urine 0-5 /hpf (0-5); WBC Urine 0-5 /hpf (0-5)
[2024-09-16 16:27] LABS: Amphetamines Screen Urine Negative (Negative); Barbiturates Screen Urine Negative (Negative); Benzodiazepines Screen Urine Negative (Negative); Cocaine Screen Urine Negative (Negative); Opiate Screen Urine Negative (Negative); PCP Screen Urine Negative (Negative); THC Screen Urine Positive (Negative)
[2024-09-16 16:35] LABS: UA Slide Review UA Slide Review Perf
[2024-09-16] MEDS: sodium bicarbonate 150 MEQ in dextrose 5% 1,000 ML 500 MEQ IV (16:36)
[2024-09-16 16:44] LABS: Blood Urea Nitrogen 39 mg/dL (6-20); Calcium 8.9 mg/dL (8.5-10.5); Chloride 96 mmol/L (98-107); Glomerular Filtration Rate 42.7 mL/min (90-130); Sodium 134 mmol/L (136-145)
[2024-09-16] MEDS: pantoprazole 40 mg SDV IVP (16:49)
[2024-09-16] MEDS: heparin 5,000 unit/mL INJ 1 mL 5000 UNIT SUBCUT (16:50)
[2024-09-16 16:53] LABS: Osmolality Calculated 328 mOsm/kg (285-295)
[2024-09-16 16:58] LABS: Thyroid Stimulating Hormone 1.73 uIU/mL (0.27-4.20)
[2024-09-16 16:59] LABS: Carbon Dioxide 6 mmol/L (22-29); Glucose 836 mg/dL (65-115)
[2024-09-16 17:00] LABS: Glucose Point of Care > 600 mg/dL (70-110)
[2024-09-16 18:10] LABS: Glucose Point of Care > 600 mg/dL (70-110)
[2024-09-16 18:16] LABS: Glucose Point of Care > 600 mg/dL (70-110)
[2024-09-16 19:00] LABS: Glucose Point of Care 507 mg/dL (70-110)
--- NOTE | 2024-09-16 19:05 | PC.NURSE ---
verified with doctor to maintain insulin and stat bmp
[2024-09-16] MEDS: INSULIN REGULAR IN 0.9 % NACL 100 UNIT/100 ML BAG 24 UNIT IV (19:37)
[2024-09-16 20:31] LABS: Glucose Point of Care 418 mg/dL (70-110)
[2024-09-16 20:47] LABS: Anion Gap 25.5 (5-19); Blood Urea Nitrogen 31 mg/dL (6-20); Carbon Dioxide 14 mmol/L (22-29); Chloride 101 mmol/L (98-107); Creatinine Clr Calc Pharmacy 67.0839; Glomerular Filtration Rate 56.1 mL/min (90-130); Glucose 415 mg/dL (65-115); Osmolality Calculated 308 mOsm/kg (285-295); Potassium 3.5 mmol/L (3.5-5.1); Sodium 137 mmol/L (136-145)
--- NOTE | 2024-09-16 20:57 | PC.NURSE ---
Contacted Dr. Luna in reference to stat BMP results as requested by day shift nurse. Received orders for 80meq IV potassium.
[2024-09-16 21:09] LABS: Glucose Point of Care 340 mg/dL (70-110)
--- NOTE | 2024-09-16 21:28 | PC.NURSE ---
Spoke with Dr. Boyer in reference to insulin drip at 24u/hr, and BG trending down reasonably at 1900:507, 1999:418, and 2100:340. Received orders to hold insulin drip rate at 24 for now as long as BG continues to trend down.
[2024-09-16] MEDS: lidocaine 1% 5 ML in potassium chloride premix 100 ML 26.25 ML IV (21:40)
[2024-09-16 22:07] LABS: Glucose Point of Care 305 mg/dL (70-110)
[2024-09-16 22:35] LABS: Magnesium 1.9 mg/dL (1.7-2.3)
--- NOTE | 2024-09-16 22:57 | PC.NURSE ---
Contacted Dr. Boyer in reference to patient's phosphate of 1.0. Received orders to DC currently running potassium chloride, and add potassium phosphate.
[2024-09-16 23:12] LABS: Glucose Point of Care 211 mg/dL (70-110)
[2024-09-16] MEDS: dextrose 5%-sod chloride 0.45% 1,000 ML 150 ML IV (23:17)
--- NOTE | 2024-09-16 23:57 | PC.NURSE ---
Contacted Dr. Boyer in reference to unavailability of potassium phosphate 15mmol. Received orders to DC potassium phosphate 15mmol and replace with potassium phosphate 40mEq.
[2024-09-17] VITALS (38 sets, daily range): BP systolic 87–151; BP diastolic 52–96; PULSE 92–125; RESP 17–35; TEMP 36.4–36.5; O2SAT 95–99
[2024-09-17] MEDS: INSULIN REGULAR IN 0.9 % NACL 100 UNIT/100 ML BAG 24 UNIT IV (00:06)
[2024-09-17] MEDS: piperacillin-tazobactam 3.375 GM in sodium chloride 0.9% (plus) 50 ML IV ×2 (00:09→09:11)
[2024-09-17 00:25] LABS: Glucose Point of Care 198 mg/dL (70-110)
[2024-09-17] MEDS: potassium phosphate (mEq K) 40 MEQ in sodium chloride 0.9% (100 ml) 100 ML 27.25 MEQ IV (01:02)
[2024-09-17 01:18] LABS: Glucose Point of Care 182 mg/dL (70-110)
[2024-09-17 01:27] LABS: Anion Gap 16.3 (5-19); Blood Urea Nitrogen 25 mg/dL (6-20); Carbon Dioxide 18 mmol/L (22-29); Chloride 107 mmol/L (98-107); Creatinine Clr Calc Pharmacy 111.8065; Glomerular Filtration Rate 101.2 mL/min (90-130); Glucose 191 mg/dL (65-115); Osmolality Calculated 296 mOsm/kg (285-295); Potassium 3.3 mmol/L (3.5-5.1); Sodium 138 mmol/L (136-145)
[2024-09-17 02:02] LABS: Glucose Point of Care 169 mg/dL (70-110)
[2024-09-17 03:10] LABS: Glucose Point of Care 165 mg/dL (70-110)
--- NOTE | 2024-09-17 03:26 | PC.NURSE ---
Contacted Dr. Boyer in reference to patient's complaints N/V. Received orders for Reglan IVP.
[2024-09-17] MEDS: metoclopramide 5 mg/mL SDV 2 mL IVP (03:38)
[2024-09-17 04:12] LABS: Glucose Point of Care 224 mg/dL (70-110)
[2024-09-17] MEDS: heparin 5,000 unit/mL INJ 1 mL 5000 UNIT SUBCUT (05:14)
[2024-09-17 05:22] LABS: Glucose Point of Care 248 mg/dL (70-110)
[2024-09-17] MEDS: dextrose 5%-sod chloride 0.45% 1,000 ML 150 ML IV (06:05)
[2024-09-17 06:06] LABS: Basophils % 0.1 %; Hematocrit 39.1 % (37-53); Lymphocytes # 0.8 10^3/uL (0.8-4.8); Lymphocytes % 4.9 %; Mean Corpuscular Hemoglobin 30.9 pg (27-33); Mean Corpuscular Volume 90.9 fl (82-101); Mean Platelet Volume 9.8 fL (7.4-10.4); Monocytes # 1.1 10^3/uL (0.2-0.9); Monocytes % 7.2 %; Neutrophils # 13.86 10^3/uL (1.8-7.7); Neutrophils % 87.3 %; Nucleated Red Blood Cells % 0 %; Platelet Count 213 10^3/cmm (157-399); Red Cell Distribution Width 12.1 % (12.1-15.1); White Blood Count 15.87 10^3/uL (3.29-11.43)
[2024-09-17 06:24] LABS: Alanine Aminotransferase 16 U/L (0-41); Albumin Level 3.7 g/dL (3.5-5.2); Alkaline Phosphatase 51 U/L (40-130); Anion Gap 21.8 (5-19); Aspartate Amino Transferase 17 U/L (0-40); Blood Urea Nitrogen 21 mg/dL (6-20); Calcium 8.4 mg/dL (8.5-10.5); Carbon Dioxide 15 mmol/L (22-29); Chloride 105 mmol/L (98-107); Creatinine Clr Calc Pharmacy 126.9288; Globulin 2.1 g/dL (1.3-4.6); Glucose 274 mg/dL (65-115); Magnesium 1.8 mg/dL (1.7-2.3); Osmolality Calculated 299 mOsm/kg (285-295); Phosphorus 3.7 mg/dL (2.5-4.5); Potassium 3.8 mmol/L (3.5-5.1); Sodium 138 mmol/L (136-145); Total Bilirubin 0.7 mg/dL (0.15-1.2); Total Protein 5.8 g/dL (6.6-8.7)
[2024-09-17 06:24] LABS: Glucose Point of Care 295 mg/dL (70-110)
[2024-09-17 06:33] LABS: Estmated Average Glucose 266; Hemoglobin A1C 10.9 % (4.0-6.0); Procalcitonin 10.63 ng/mL (0-0.5)
[2024-09-17 06:46] LABS: Cholesterol 90 mg/dL (0-200); HDL Cholesterol 41 mg/dL (60-100); LDL Cholesterol Calculated 43 mg/dL (50-129); LDL HDL Ratio 1.05 RATIO (0.00-3.22); Triglycerides 31 mg/dL (0-150)
[2024-09-17 07:31] LABS: Glucose Point of Care 292 mg/dL (70-110)
[2024-09-17 08:44] LABS: Glucose Point of Care 299 mg/dL (70-110)
[2024-09-17 09:10] LABS: Glucose Point of Care 297 mg/dL (70-110)
--- NOTE | 2024-09-17 10:05 | PC.NURSE ---
This nurse at bedside with SCOLA. Patient requesting to leave AMA. SCOLA explained the risk of leaving and potential complications. Patient was alert and oriented and verbalized understanding of signing out AMA.
[2024-09-17 10:06] LABS: Glucose Point of Care 272 mg/dL (70-110)
--- NOTE | 2024-09-17 10:11 | PC.NURSE ---
Patient turned options advisor light saying his ride is here and hes ready to go AMA. This nurse went into room and educated patient and strongly advised patient not to leave due to his lab work still not being regulated. Patient said he understood the risks including and hes still leaving. Nurse asked patient to please come back to the ER if patient starts feeling worse. Dr. Snell notified. AMA papers signed all IVs removed. Patient ambulated to main exit with staff.
--- NOTE | 2024-09-17 10:17 | PC.NURSE ---
Patient is alert and orientated x4. Able to make own decisions
[2024-09-17 10:19] LABS: Anion Gap 19.6 (5-19); Blood Urea Nitrogen 21 mg/dL (6-20); Calcium 8.3 mg/dL (8.5-10.5); Carbon Dioxide 18 mmol/L (22-29); Chloride 107 mmol/L (98-107); Creatinine Clr Calc Pharmacy 145.0615; Glomerular Filtration Rate 135.3 mL/min (90-130); Glucose 297 mg/dL (65-115); Osmolality Calculated 306 mOsm/kg (285-295); Potassium 3.6 mmol/L (3.5-5.1); Sodium 141 mmol/L (136-145)
--- NOTE | 2024-09-17 15:13 | P.DS_ITS ---
Discharge Providers Date of Admission: 09/16/24 14:39 Date of Discharge: September 17, 2024 Attending Provider at Admission: Jase Luna MD Attending Provider at Discharge: Husam Snell DO Primary Care Provider: MARGE Castellano Diagnoses at Discharge Discharge Diagnosis (1) DKA (diabetic ketoacidosis): Status: Acute Qualifiers: Diabetes mellitus complication detail: without coma Diabetes mellitus type: type 1 Qualified Code(s): E10.10 - Type 1 diabetes mellitus with ketoacidosis without coma (2) BALWINDER (acute kidney injury): Status: Acute (3) Acute hyperkalemia: Status: Acute (4) High anion gap metabolic acidosis: Status: Acute (5) Elevated lactic acid level: Status: Acute (6) Hyperphosphatemia: Status: Acute (7) Sepsis: Status: Acute Reason for Visit Reason for Visit: hyperglycemia Brief History: Patient found in DKA on presentation. Hospital Course Hospital Course Patient with longstanding history of type 1 diabetes mellitus and frequent DKA episodes. I saw the patient earlier today and allowed him to drink. We were starting to adjust fluids and hoping to correct for gap when I was notified that he pulled out his IVs and wanted to leave AGAINST MEDICAL ADVICE. By the time I returned phone call patient had already left the facility. Physical Exam Narrative: Young male with scrape on his right cheek. Patient was alert and oriented to person place time and situation. Heart heart regular rate and rhythm without loud murmur lungs clear to auscultation without wheezes rales or rhonchi abdomen soft nontender nondistended positive bowel sounds no hepatosplenomegaly. Extremities no clubbing cyanosis or edema Discharge Data Studies Completed and Pending Completed Studies During Hospitalization Category Date Time Status CT abdomen pelvis con [id number] Routine Cat Scan 09/16/24 15:34 Completed Pending at discharge Category Date Time Status Magnesium AM LABS Lab 09/18/24 04:00 Ordered Magnesium AM LABS Lab 09/19/24 04:00 Ordered Radiology Impressions Abdomen/Pelvis CT 09/16/24 15:34 IMPRESSION: 1. No CT evidence for acute pancreatitis at this time. 2. Mild thickening and intraluminal fluid in several jejunal loops. Questions mild jejunitis. Laboratory Results WBC 15.87 10^3/uL (3.29-11.43) H 09/17/24 05:38 RBC 4.30 10^6/uL (3.85-5.65) 09/17/24 05:38 Hgb 13.30 g/dL (11.27-16.99) 09/17/24 05:38 Hct 39.1 % (37-53) 09/17/24 05:38 MCV 90.9 fl (82-101) D 09/17/24 05:38 MCH 30.9 pg (27-33) 09/17/24 05:38 MCHC 34.0 g/dL (30-55) D 09/17/24 05:38 RDW 12.1 % (12.1-15.1) 09/17/24 05:38 Plt Count 213 10^3/cmm (157-399) D 09/17/24 05:38 MPV 9.8 fL (7.4-10.4) 09/17/24 05:38 Neut % (Auto) 87.3 % 09/17/24 05:38 Lymph % (Auto) 4.9 % 09/17/24 05:38 [place] % (Auto) 7.2 % 09/17/24 05:38 Eos % (Auto) 0.0 % 09/17/24 05:38 Baso % (Auto) 0.1 % 09/17/24 05:38 Neut # (Auto) 13.86 10^3/uL (1.8-7.7) H 09/17/24 05:38 Lymph # (Auto) 0.8 10^3/uL (0.8-4.8) 09/17/24 05:38 [place] # (Auto) 1.1 10^3/uL (0.2-0.9) H 09/17/24 05:38 Eos # (Auto) 0.0 10^3/uL (0.0-0.8) 09/17/24 05:38 Baso # (Auto) 0.0 10^3/uL (0.0-0.1) 09/17/24 05:38 Nucleated RBC % (auto) 0 % 09/17/24 05:38 Nucleated RBCs # 0.0 /100WBC 09/17/24 05:38 Specimen Type Arterial 09/16/24 14:20 Sample Site Not specified 09/16/24 14:20 Hasmukh Test N/a 09/16/24 14:20 VBG pH 7.03 (7.32-7.42) L* 09/16/24 14:20 VBG pCO2 21.5 mmHg (41-51) L 09/16/24 14:20 VBG pO2 71.2 mmHg (25-40) H 09/16/24 14:20 VBG HCO3 5.7 mmol/L (24-28) L 09/16/24 14:20 VBG Base Excess -23.6 mmol/L (-3.0-3.0) L 09/16/24 14:20 VBG Hematocrit 52.0 % (42-52) 09/16/24 14:20 O2 Delivery Device Room air 09/16/24 14:20 Choir Director ID Amh 09/16/24 14:20 Sodium 141 mmol/L (136-145) 09/17/24 09:27 Potassium 3.6 mmol/L (3.5-5.1) 09/17/24 09:27 Chloride 107 mmol/L (98-107) 09/17/24 09:27 Carbon Dioxide 18 mmol/L (22-29) L 09/17/24 09:27 Anion Gap 19.6 (5-19) H 09/17/24 09:27 BUN 21 mg/dL (6-20) H 09/17/24 09:27 Creatinine 0.7 mg/dL (0.7-1.2) 09/17/24 09:27 GFR Calculation 135.3 mL/min (90-130) H 09/17/24 09:27 Glucose 297 mg/dL (65-115) H 09/17/24 09:27 POC Glucose 272 mg/dL (70-110) H 09/17/24 10:01 Estimat Average Glucose 266 09/17/24 05:38 Hemoglobin A1c 10.9 % (4.0-6.0) H 09/17/24 05:38 Calculated Osmolality 306 mOsm/kg (285-295) H 09/17/24 09:27 Lactic Acid 7.0 mmol/L (0.5-2.2) H* 09/16/24 13:39 Lactic Acid (Sepsis) 4.0 mmol/L (0.5-2.2) H 09/16/24 16:25 Calcium 8.3 mg/dL (8.5-10.5) L 09/17/24 09:27 Phosphorus 3.7 mg/dL (2.5-4.5) D 09/17/24 05:38 Magnesium 1.8 mg/dL (1.7-2.3) 09/17/24 05:38 Total Bilirubin 0.7 mg/dL (0.15-1.2) 09/17/24 05:38 AST 17 U/L (0-40) 09/17/24 05:38 ALT 16 U/L (0-41) 09/17/24 05:38 Alkaline Phosphatase 51 U/L (40-130) 09/17/24 05:38 Total Protein 5.8 g/dL (6.6-8.7) L D 09/17/24 05:38 Albumin 3.7 g/dL (3.5-5.2) 09/17/24 05:38 Globulin 2.1 g/dL (1.3-4.6) 09/17/24 05:38 Triglycerides 31 mg/dL (0-150) 09/17/24 05:38 Cholesterol 90 mg/dL (0-200) 09/17/24 05:38 LDL Cholesterol, Calc 43 mg/dL (50-129) L 09/17/24 05:38 HDL Cholesterol 41 mg/dL (60-100) L 09/17/24 05:38 LDL/HDL Ratio 1.05 RATIO (0.00-3.22) 09/17/24 05:38 Cholesterol/HDL Ratio 2.20 mg/dL (1.0-5.00) 09/17/24 05:38 Lipase 8 U/L (13-60) L 09/16/24 13:39 Procalcitonin 10.63 ng/mL (0-0.5) H 09/17/24 05:38 TSH 1.73 uIU/mL (0.27-4.20) 09/16/24 16:20 Urine Color Yellow (Yellow) 09/16/24 14:37 Urine Appearance Clear (CLEAR) 09/16/24 14:37 Urine pH 5.0 (5-7) 09/16/24 14:37 Ur Specific [place] 1.028 (1.005-1.030) 09/16/24 14:37 Urine Protein 1+ (Negative) A 09/16/24 14:37 Urine Glucose (UA) 3+ (Normal) H 09/16/24 14:37 Urine Ketones 3+ (Negative) H 09/16/24 14:37 Urine Blood Negative (Negative) 09/16/24 14:37 Urine Nitrate Negative (Negative) 09/16/24 14:37 Urine Bilirubin Negative (Negative) 09/16/24 14:37 Urine Urobilinogen 0.2 mg/dL (Negative) 09/16/24 14:37 Ur Leukocyte Esterase Negative (Negative) 09/16/24 14:37 Urine RBC 0-2 /hpf (0-2) 09/16/24 14:37 Urine WBC 0-5 /hpf (0-5) 09/16/24 14:37 Ur Squamous Epith Cells 0-5 /hpf (0-5) 09/16/24 14:37 Amorphous Sediment Not Reportable 09/16/24 14:37 Urine Bacteria None seen /hpf (NONE) 09/16/24 14:37 Hyaline Casts 13.22 /lpf 09/16/24 14:37 Urine Opiates Screen Negative ng/mL (Negative) 09/16/24 14:37 Ur Barbiturates Screen Negative ng/mL (Negative) 09/16/24 14:37 Ur Phencyclidine Scrn Negative ng/mL (Negative) 09/16/24 14:37 Ur Amphetamines Screen Negative ng/mL (Negative) 09/16/24 14:37 U Benzodiazepines Scrn Negative ng/mL (Negative) 09/16/24 14:37 Urine Cocaine Screen Negative ng/mL (Negative) 09/16/24 14:37 U Marijuana (THC) Screen Positive ng/mL (Negative) H 09/16/24 14:37 Ethyl Alcohol < 10 mg/dL (0-10) 09/16/24 13:39 Serum Ketones Positive (Negative) H 09/16/24 13:39 Vitals Last Vital Signs Temp 97.7 F 09/17/24 04:00 Pulse 113 H 09/17/24 09:15 Resp 20 H 09/17/24 09:15 BP 127/83 09/17/24 09:15 Pulse Ox 98 09/17/24 03:45 O2 Del Method Room Air 09/17/24 04:00 Discharge Plan Discharge Patient Disposition: Left Against Medical Advice Condition: Stable Prescriptions: No Action (DME) Omnipod 5 G6 Intro Kit (Gen 5) Cartridge See Rx Instructions .ROUTE .MEDSUPPLY Qty: 1 0RF Rx Instructions: As directed (DME) Dexcom G6 Vice President Of Compliance Misc See Rx Instructions .ROUTE .MEDSUPPLY Qty: 1 0RF Rx Instructions: takes blood sugar (DME) Dexcom G6 Sensor Device See Rx Instructions .ROUTE .MEDSUPPLY Qty: 9 3RF Rx Instructions: Change every 10 days (DME) Dexcom G6 Transmitter Device See Rx Instructions .ROUTE .MEDSUPPLY Qty: 3 3RF Rx Instructions: change every 90 days (DME) strips See Rx Instructions .Route .MEDSUPPLY Qty: 1 3RF Rx Instructions: Check blood sugars 3 times daily, with meals, #200, 3 refills (DME) lancets Misc See Rx Instructions .Route Qty: 200 3RF Rx Instructions: check BS, TID with meals insulin lispro 100 unit/mL solution See Rx Instructions .ROUTE .COMPLEX Qty: 10 0RF Dose Instruction: USE 150 UNITS DAILY DIRECTED VIA PUMP Rx Instructions: USE 150 UNITS DAILY DIRECTED VIA PUMP (DME) Omnipod 5 G6-G7 Pods (Gen 5) Cartridge See Rx Instructions .ROUTE .COMPLEX Qty: 15 3RF Dose Instruction: CHANGE POD EVERY 3 DAYS Rx Instructions: CHANGE POD EVERY 3 DAYS (DME) blood sugar diagnostic Strip See Rx Instructions .Route Qty: 100 0RF Rx Instructions: As directed (DME) Blood Glucose Test Strip See Rx Instructions .Route Qty: 100 0RF Rx Instructions: As directed (DME) blood-glucose meter [Blood Glucose Monitoring] Kit See Rx Instructions .Route Qty: 1 0RF Rx Instructions: As directed (DME) strips See Rx Instructions .Route .MEDSUPPLY Qty: 200 3RF Rx Instructions: Check blood sugars 3 times daily, before meals (DME) lancets See Rx Instructions .Route .MEDSUPPLY Qty: 200 1RF Rx Instructions: Check blood sugars 3 times daily, before meals Referrals: Earlene Titus FNP-C [Primary Care Provider] - Discharge Attestations Time Spent in Discharge Care*: greater than 30 min Status at Discharge: Cognitive status at discharge: cognitively intact , Behavioral status at discharge: cooperative , Quality Metrics Clinical Quality Measures [ No reported AMI, CVA or VTE this stay] Coding Level of Care Code Acute Code for Chg Fwd Diagnoses DKA (diabetic ketoacidosis) E10.10 Diabetes mellitus complication detail: without coma Diabetes mellitus type: type 1 BALWINDER (acute kidney injury) N17.9 Acute hyperkalemia E87.5 High anion gap metabolic acidosis E87.2 Elevated lactic acid level R79.89 Hyperphosphatemia E83.39 Sepsis A41.9
== END 2024-09-17 11:00 | disposition left against medical advice (07) | DRG 871 ==
LOC: ER 14:40 → ICU 15:24
PROVIDERS: Internal Medicine; Admitting Provider Student in an Organized Health Care Education/Training Program; Emergency Provider Emergency Medicine; PCP Nurse Practitioner Family; Visit Provider Internal Medicine
DX: A41.9 Sepsis, unspecified organism (principal); E10.10 Type 1 diabetes mellitus with ketoacidosis without coma; G93.41 Metabolic encephalopathy; N17.9 Acute kidney failure, unspecified; E87.5 Hyperkalemia; E83.39 Other disorders of phosphorus metabolism; Z79.4 Long term (current) use of insulin; F15.10 Other stimulant abuse, uncomplicated; F12.90 Cannabis use, unspecified, uncomplicated; K21.9 Gastro-esophageal reflux disease without esophagitis; Z53.29 Procedure and treatment not carried out because of patient's decision for other reasons
CPT/HCPCS: 36415; 36416; 74176; 80048; 80053; 80061; 80306; 80307; 81001; 82009; 82803; 82962; 83036; 83605; 83690; 83735; 84100; 84145; 84443; 85025; 93005; 94664; 96365; 96366; 96367; 96372; 96374; 96375; 96376; 99291; J0612; J1644; J1815; J2470; J2543; J2765; J3480; J7030; J7070; J7799

== ENCOUNTER → 2024-10-03 08:54 | Outpatient (BNVA) | payer MEDICARE, MEDICAID, SELFPAY | PROVIDERS: PCP Nurse Practitioner Family; Visit Provider Internal Medicine | DX: E78.2 Mixed hyperlipidemia (principal); E10.9 Type 1 diabetes mellitus without complications | CPT/HCPCS: 99214 ==

== ENCOUNTER → 2024-11-05 09:00 | Outpatient (BNVA) | payer OTHER, SELFPAY | PROVIDERS: PCP Nurse Practitioner Family; Visit Provider Internal Medicine | DX: E10.9 Type 1 diabetes mellitus without complications (principal) | CPT/HCPCS: 82947; 84681 ==

== ENCOUNTER 2024-12-22 15:34 | Emergency (ER) | payer OTHER, SELFPAY ==
[2024-12-22 15:35] VITALS: BP 130/81; PULSE 94; RESP 18; TEMP 36.7; O2SAT 98
--- NOTE | 2024-12-22 15:45 | XRR_ITS ---
PROCEDURE INFORMATION: Exam: XR Chest Exam date and time: 12/22/2024 4:00 PM Age: 29 years old Clinical indication: Cough and dyspnea; Dyspnea; Cough; Weakness; Concern for dka TECHNIQUE: Imaging protocol: Radiologic exam of the chest. Views: 1 view. COMPARISON: CT chest [facility] [id number] 04/22/2024 5:45 PM FINDINGS: Lungs: Lungs are clear. Pleural spaces: There is no pleural effusion or pneumothorax. Heart/Mediastinum: Cardiomediastinal contours are unremarkable. Bones/joints: Bones are unremarkable. XR/XR chest 1V portable [id number] IMPRESSION: No acute findings.
[2024-12-22 15:47] LABS: Glucose Point of Care 109 mg/dL (70-110)
--- NOTE | 2024-12-22 15:51 | ED_ITS ---
HPI - Nausea/Vomiting/Diarrhea 2 General: Chief complaint: Nausea/Vomiting/Diarrhea Stated complaint: lethargic, low blood sugar Time Seen by Provider: 12/22/24 15:38 History of Present Illness: 29-year-old [facility]. She initially this patient has had multiple admissions for DKA fortunately since getting an insulin pump he has had much less trouble. On arrival here he is inducing vomiting staff to redirect him to keep him from doing this. When he arrived his blood sugar is still running low EMS reported it was 60s when they first encountered him. We immediately had to have discontinue the insulin pump. He denies any recent fever sweats chills Associated nausea: Yes Associated symtoms: Reports nausea; Denies chest pain or dysuria Related Data Previous Rx's ?Medication ?Instructions ?Recorded blood sugar diagnostic #100 ea 03/20/21 blood sugar diagnostic (Blood #100 ea 03/20/21 Glucose Test strips) blood-glucose meter (Blood Glucose #1 ea 03/20/21 Monitoring kit) lancets #200 ea 05/17/21 strips #200 ea 05/17/21 lancets #200 ea 06/18/21 strips #1 ea 06/18/21 blood-glucose meter,continuous #1 ea 10/18/22 (Dexcom G6 Magento Web Developer) blood-glucose sensor (Dexcom G6 #9 ea 10/18/22 Sensor device) blood-glucose transmitter (Dexcom #3 ea 10/18/22 G6 Transmitter device) insulin pump cartridge,automated #1 ea 10/18/22 dose,BT with controller subcutaneous (Omnipod 5 G6 Intro Kit (Gen 5) subcutaneous cartridge with controller) insulin pump cart,auto,BT,G6/7 #15 ea 08/30/24 (Omnipod 5 G6-G7 Pods (Gen 5) subcutaneous cartridge) insulin lispro 100 unit/mL See Rx Instructions .Route 10/03/24 subcutaneous solution .COMPLEX #130 mL ciprofloxacin HCl 500 mg tablet 500 mg PO BID #14 tabs 12/22/24 (Cipro) Allergies Allergy/AdvReac Type Severity Reaction Status Date / Time ondansetron (From Zofran) Allergy Intermediate jittery/swe Verified 10/02/24 15:03 lling promethazine (From Phenergan) Allergy Unknown Verified 10/02/24 15:03 Review of Systems 2 Const: Denies: fever(s) or chills Card: Denies: chest pain Resp: Denies: dyspnea GI: Reports: nausea and vomiting; Denies: abdominal pain : Denies: dysuria, urinary frequency or urinary urgency Musc: Denies: neck pain or back pain Skin/Breast: Denies: rash PFSH ED 2 PFSH: Medical History Abdominal pain High anion gap metabolic acidosis DKA (diabetic ketoacidosis) Diabetic keto-acidosis Hyperglycemia Nausea & vomiting Noncompliance with diabetes treatment Methamphetamine abuse DKA (diabetic ketoacidoses) History of pancreatitis Long-term insulin use Hypoglycemia due to insulin Uncontrolled type 1 diabetes mellitus Pancreatitis Marijuana use GERD (gastroesophageal reflux disease) Type 1 diabetes With recurrent admissions for DKA, severe Surgical History No pertinent past surgical history Family History Other Diabetes Social History Smoking and tobacco/nicotine status: never used tobacco/nicotine Alcohol intake: never Substance/Drug Use: former Date of last use: Marijuana abuse Lives independently: Yes Household members: family Marital status: Single Current occupational status: disabled Physical Exam 2 Const: GENERAL APPEARANCE: cooperative ORIENTATION/CONSCIOUSNESS: Yes awake HENMT: COMMON NORMALS: normocephalic, atraumatic and hearing grossly normal bilaterally HEAD & SCALP: normocephalic and atraumatic Resp: COMMON NORMALS: normal respiratory effort, No retractions, No use of accessory muscles and clear to auscultation bilaterally AUSCULTATION: clear to auscultation bilaterally Cardio: COMMON NORMALS: regular rate, regular rhythm and No murmurs present (Cardio) RATE: regular rate RHYTHM: regular rhythm GI: COMMON NORMALS: Soft to palpation and No hepatosplenomegaly present A USCULTATION: Yes normoactive bowel sounds PALPATION: Yes Soft to palpation, No Tenderness to palpation present (GI), No Guarding due to palpation present (GI) and Yes No hepatosplenomegaly present Extremity: COMMON NORMALS: normal to inspection, capillary refill normal, no clubbing, cyanosis or edema, no calf tenderness and no pedal edema Skin: COMMON NORMALS: no rashes or lesions noted GENERAL SKIN EXAM: no rashes or lesions noted Course 2 Vital Signs: Vital signs: Vital Signs Temperature 98.1 F 12/22/24 15:35 Pulse Rate 98 12/22/24 18:17 Respiratory Rate 16 12/22/24 18:17 Blood Pressure 105/65 12/22/24 18:17 Pulse Oximetry 98 12/22/24 18:17 Oxygen Delivery Me thod Nasal Cannula 12/22/24 17:05 Oxygen Flow Rate 1 12/22/24 17:05 MDM - Nausea/Vomiting/Diarrhea Medical Decision Making Patient arrived we had him take his insulin pump off given glucose his glucose is stabilized. He has an incidental bladder infection for which we are treating him with Cipro. We are not to review things with the patient he gotten up to get around and his heart rate got up to 120 encourage him to stay and let us evaluate little further or at least give him some more fluids he is insisting on going home. Will discharge home with oral antibiotics encourage fluid intake when he returns home advised to to reaccess his insulin pump and monitor blood sugars closely if he has any worsening or changes symptoms return to the emergency room Medical Records I reviewed the patient's medical records. Lab Data I reviewed the patient's lab results. 12/22/24 16:00 12/22/24 16:00 Radiology Impressions Chest X-Ray 12/22/24 15:45 IMPRESSION: No acute findings. Laboratory Results WBC 8.71 10^3/uL (3.29-11.43) 12/22/24 16:00 RBC 5.47 10^6/uL (3.85-5.65) 12/22/24 16:00 Hgb 16.60 g/dL (11.27-16.99) 12/22/24 16:00 Hct 47.7 % (37-53) 12/22/24 16:00 MCV 87.2 fl (82-101) 12/22/24 16:00 MCH 30.3 pg (27-33) 12/22/24 16:00 MCHC 34.8 g/dL (30-55) 12/22/24 16:00 RDW 11.9 % (12.1-15.1) L 12/22/24 16:00 Plt Count 250 10^3/cmm (157-399) 12/22/24 16:00 MPV 9.9 fL (7.4-10.4) 12/22/24 16:00 Neut % (Auto) 83.3 % 12/22/24 16:00 Lymph % (Auto) 10.4 % 12/22/24 16:00 [place] % (Auto) 5.4 % 12/22/24 16:00 Eos % (Auto) 0.1 % 12/22/24 16:00 Baso % (Auto) 0.6 % 12/22/24 16:00 Neut # (Auto) 7.25 10^3/uL (1.8-7.7) 12/22/24 16:00 Lymph # (Auto) 0.9 10^3/uL (0.8-4.8) 12/22/24 16:00 [place] # (Auto) 0.5 10^3/uL (0.2-0.9) 12/22/24 16:00 Eos # (Auto) 0.0 10^3/uL (0.0-0.8) 12/22/24 16:00 Baso # (Auto) 0.1 10^3/uL (0.0-0.1) 12/22/24 16:00 Nucleated RBC % (auto) 0 % 12/22/24 16:00 Nucleated RBCs # 0.0 /100WBC 12/22/24 16:00 Specimen Type Arterial 12/22/24 15:56 Sample Site Brachial, right 12/22/24 15:56 ABG pH 7.54 (7.35-7.45) H 12/22/24 15:56 ABG pCO2 26.4 mmHg (35-45) L 12/22/24 15:56 ABG pO2 89.0 mmHg (80.0-100.0) 12/22/24 15:56 ABG PO2/FiO2 Ratio 423 12/22/24 15:56 ABG HCO3 22.5 mmol/L (22-26) 12/22/24 15:56 ABG O2 Saturation 98.3 12/22/24 15:56 ABG Base Excess 1.6 mmol/L (-2.0-2.0) 12/22/24 15:56 Hasmukh Test N/a 12/22/24 15:56 A-a O2 Gradient 3.5 mmHg (5-10) L 12/22/24 15:56 Hematocrit 51.2 % (42-52) 12/22/24 15:56 Hgb O2 Saturation 96.3 % (95-100) 12/22/24 15:56 Carboxyhemoglobin 1.3 %THgb (0.4-20.1) 12/22/24 15:56 Methemoglobin 0.8 % (0.4-1.5) 12/22/24 15:56 Total Hemoglobin 16.7 g/dL (14-18) 12/22/24 15:56 Sodium 140.0 mmol/L (131-143) 12/22/24 15:56 Potassium 3.6 mmol/L (3.5-5.0) 12/22/24 15:56 Glucose 230.0 mg/dL (70-115) H 12/22/24 15:56 Ionized Calcium 1.2 mmol/L (1.1-1.4) 12/22/24 15:56 O2 Delivery Device Room air 12/22/24 15:56 FiO2 21.0 % 12/22/24 15:56 Nematology Teacher ID [facility] 12/22/24 15:56 Sodium 139 mmol/L (136-145) 12/22/24 16:00 Potassium 4.0 mmol/L (3.5-5.1) 12/22/24 16:00 Chloride 100 mmol/L (98-107) 12/22/24 16:00 Carbon Dioxide 21 mmol/L (22-29) L 12/22/24 16:00 Anion Gap 22.0 (5-19) H 12/22/24 16:00 BUN 14 mg/dL (6-20) 12/22/24 16:00 Creatinine 0.7 mg/dL (0.7-1.2) 12/22/24 16:00 GFR Calculation 135.3 mL/min (90-130) H 12/22/24 16:00 Glucose 143 mg/dL (65-115) H 12/22/24 16:00 POC Glucose 236 mg/dL (70-110) H 12/22/24 17:36 Calculated Osmolality 291 mOsm/kg (285-295) 12/22/24 16:00 Calcium 10.1 mg/dL (8.5-10.5) 12/22/24 16:00 Total Bilirubin 0.9 mg/dL (0.15-1.2) 12/22/24 16:00 AST 20 U/L (0-40) 12/22/24 16:00 ALT 17 U/L (0-41) 12/22/24 16:00 Alkaline Phosphatase 54 U/L (40-130) 12/22/24 16:00 Total Protein 8.2 g/dL (6.6-8.7) 12/22/24 16:00 Albumin 4.7 g/dL (3.5-5.2) 12/22/24 16:00 Globulin 3.5 g/dL (1.3-4.6) 12/22/24 16:00 Urine Color Dark yellow (Yellow) A 12/22/24 17: Urine Appearance Cloudy (CLEAR) A 12/22/24 17: Urine pH 7.0 (5-7) 12/22/24 17: Ur Specific [place] 1.040 (1.005-1.030) H 12/22/24 17: Urine Protein 3+ (Negative) A 12/22/24 17: Urine Glucose (UA) Trace (Normal) H 12/22/24 17:26 Urine Ketones 4+ (Negative) 12/22/24 17: Urine Blood Negative (Negative) 12/22/24 17: Urine Nitrate Negative (Negative) 12/22/24 17: Urine Bilirubin 1+ (Negative) H 12/22/24 17: Urine Urobilinogen 1.0 mg/dL (Negative) 12/22/24 17: Ur Leukocyte Esterase 1+ (Negative) A 12/22/24 17: Urine RBC 0-2 /hpf (0-2) 12/22/24 17:26 Urine WBC 6-10 /hpf (0-5) 12/22/24 17:26 Ur Squamous Epith Cells 0-5 /hpf (0-5) 12/22/24 17: Amorphous Sediment Not Reportable 12/22/24 17:26 Urine Bacteria None seen /hpf (NONE) 12/22/24 17:26 Hyaline Casts 16.12 /lpf 12/22/24 17: Urine Opiates Screen Negative ng/mL (Negative) 12/22/24 17:26 Ur Barbiturates Screen Negative ng/mL (Negative) 12/22/24 17:26 Ur Phencyclidine Scrn Negative ng/mL (Negative) 12/22/24 17:26 Ur Amphetamines Screen Negative ng/mL (Negative) 12/22/24 17:26 U Benzodiazepines Scrn Positive ng/mL (Negative) H 12/22/24 17:26 Urine Cocaine Screen Negative ng/mL (Negative) 12/22/24 17:26 U Marijuana (THC) Screen Positive ng/mL (Negative) H 12/22/24 17:26 Serum Ketones Negative (Negative) 12/22/24 16:00 All radiology interpretation(s) finalized by discharge Discharge Plan Discharge Patient Disposition: Home Clinical Impression: Hypoglycemia, Cystitis Condition: Stable Prescriptions: New ciprofloxacin HCl [Cipro] 500 mg tablet 500 mg PO BID Qty: 14 0RF No Action (DME) Omnipod 5 G6 Intro Kit (Gen 5) Cartridge See Rx Instructions .ROUTE .MEDSUPPLY Qty: 1 0RF Rx Instructions: As directed (DME) Dexcom G6 Magento Web Developer Misc See Rx Instructions .ROUTE .MEDSUPPLY Qty: 1 0RF Rx Instructions: takes blood sugar (DME) Dexcom G6 Sensor Device See Rx Instructions .ROUTE .MEDSUPPLY Qty: 9 3RF Rx Instructions: Change every 10 days (DME) Dexcom G6 Transmitter Device See Rx Instructions .ROUTE .MEDSUPPLY Qty: 3 3RF Rx Instructions: change every 90 days (DME) strips See Rx Instructions .Route .MEDSUPPLY Qty: 1 3RF Rx Instructions: Check blood sugars 3 times daily, with meals, #200, 3 refills (DME) lancets Misc See Rx Instructions .Route Qty: 200 3RF Rx Instructions: check BS, TID with meals (DME) Omnipod 5 G6-G7 Pods (Gen 5) Cartridge See Rx Instructions .ROUTE .COMPLEX Qty: 15 3RF Dose Instruction: CHANGE POD EVERY 3 DAYS Rx Instructions: CHANGE POD EVERY 3 DAYS insulin lispro 100 unit/mL solution See Rx Instructions .ROUTE .COMPLEX Qty: 130 0RF Dose Instruction: USE 150 UNITS VIA INSULIN PUMP DAILY Rx Instructions: USE 150 UNITS VIA INSULIN PUMP DAILY (DME) blood sugar diagnostic Strip See Rx Instructions .Route Qty: 100 0RF Rx Instructions: As directed (DME) Blood Glucose Test Strip See Rx Instructions .Route Qty: 100 0RF Rx Instructions: As directed (DME) blood-glucose meter [Blood Glucose Monitoring] Kit See Rx Instructions .Route Qty: 1 0RF Rx Instructions: As directed (DME) strips See Rx Instructions .Route .MEDSUPPLY Qty: 200 3RF Rx Instructions: Check blood sugars 3 times daily, before meals (DME) lancets See Rx Instructions .Route .MEDSUPPLY Qty: 200 1RF Rx Instructions: Check blood sugars 3 times daily, before meals Discharge Orders: Discharge ED (Routine); Ordered 12/22/24 Ordered By: Epifanio Thrasher Referrals: Earlene Titus FNP-C [Primary Care Provider] - Discharge Diet: Diabetic Discharge Activity: Resume usual activity Patient Instructions: Opioid Safety, Pain Management Activity Restrictions/Additional Instructions: Thank you for choosing [facility] for your healthcare needs today. It is very important that you follow up as instructed or that you return to the Emergency Department should you have concerns or if your condition changes or worsens in any way. You are seen emergency room your blood sugar was low we had you stop your insulin pump. We gave you supplemental glucose. Your glucose is now above 200 and consistent your other labs were not significantly abnormal. Recommend that you return home restart your insulin pump monitor your blood sugars closely if your blood sugar decreases again return to the emergency room. Print Language: Jordanian Coding Level of Care Code ED Financial Aid Counselor for Maxx Mohr
[2024-12-22 16:08] LABS: ABG PCO2 26.4 mmHg (35-45); ABG PH Result 7.54 (7.35-7.45); Alveolar-Arterial Oxygen Gradi 3.5 mmHg (5-10); Arterial Blood Gas Hematocrit 51.2 % (42-52); Base Excess ABG 1.6 mmol/L (-2.0-2.0); Blood Gas Operator Identificat AMH; Blood Gas Sample Site Brachial, right; Blood Gas Sample Type Arterial; Carboxyhemoglobin 1.3 %THgb (0.4-20.1); HCO3 ABG 22.5 mmol/L (22-26); HGB O2 Sat 96.3 % (95-100); Ionized Calcium Level - ABG 1.2 mmol/L (1.1-1.4); Methemoglobin 0.8 % (0.4-1.5); Oxygen Device ROOM AIR; Oxygen Saturation ABG 98.3; PO2 FiO2 Ratio Arterial Blood 423; Potassium Level - ABG 3.6 mmol/L (3.5-5.0); Total Hemoglobin 16.7 g/dL (14-18)
--- NOTE | 2024-12-22 16:10 | PC.PHAR ---
Pt only has insulin pump and buys insulin, Dexcom sensors, receivers, and the omnipod 5 insulin delivery pods. No oral medications.
[2024-12-22 16:15] LABS: Basophils # 0.1 10^3/uL (0.0-0.1); Basophils % 0.6 %; Eosinophils % 0.1 %; Hematocrit 47.7 % (37-53); Lymphocytes # 0.9 10^3/uL (0.8-4.8); Lymphocytes % 10.4 %; Mean Corpuscular HGB Conc 34.8 g/dL (30-55); Mean Corpuscular Hemoglobin 30.3 pg (27-33); Mean Corpuscular Volume 87.2 fl (82-101); Mean Platelet Volume 9.9 fL (7.4-10.4); Monocytes # 0.5 10^3/uL (0.2-0.9); Monocytes % 5.4 %; Neutrophils # 7.25 10^3/uL (1.8-7.7); Neutrophils % 83.3 %; Nucleated Red Blood Cells % 0 %; Platelet Count 250 10^3/cmm (157-399); Red Blood Count 5.47 10^6/uL (3.85-5.65); Red Cell Distribution Width 11.9 % (12.1-15.1); White Blood Count 8.71 10^3/uL (3.29-11.43)
[2024-12-22 16:23] LABS: Ketone (Acetest) Serum Negative (Negative)
[2024-12-22] MEDS: LORazepam 2 mg/mL INJ 1 mL IVP (16:28)
[2024-12-22] MEDS: dextrose 10% 1,000 ML 100 ML IV (16:31)
[2024-12-22 16:35] LABS: Glucose Point of Care 210 mg/dL (70-110)
[2024-12-22 16:35] LABS: Alanine Aminotransferase 17 U/L (0-41); Albumin Level 4.7 g/dL (3.5-5.2); Alkaline Phosphatase 54 U/L (40-130); Blood Urea Nitrogen 14 mg/dL (6-20); Calcium 10.1 mg/dL (8.5-10.5); Carbon Dioxide 21 mmol/L (22-29); Chloride 100 mmol/L (98-107); Creatinine Clr Calc Pharmacy 131.5472; Globulin 3.5 g/dL (1.3-4.6); Glomerular Filtration Rate 135.3 mL/min (90-130); Glucose 143 mg/dL (65-115); Osmolality Calculated 291 mOsm/kg (285-295); Sodium 139 mmol/L (136-145); Total Bilirubin 0.9 mg/dL (0.15-1.2); Total Protein 8.2 g/dL (6.6-8.7)
[2024-12-22 16:36] LABS: Aspartate Amino Transferase 20 U/L (0-40)
[2024-12-22 16:44] VITALS: BP 126/79; PULSE 81; RESP 14; O2SAT 92
[2024-12-22 17:05] VITALS: PULSE 91; RESP 16; O2SAT 98
[2024-12-22 17:34] LABS: Bilirubin Urine 1+ (Negative); Blood Urine Negative (Negative); Glucose Urine UA Trace (Normal); Ketones Urine 4+ (Negative); Leukocyte Esterase Urine 1+ (Negative); Nitrate Urine Negative (Negative); Protein Urine 3+ (Negative); Urine Appearance Cloudy (CLEAR); Urine Color Dark Yellow (Yellow)
[2024-12-22 17:39] LABS: Add Urine Microscopic? YES; Bacteria Urine None Seen /hpf; Hyaline Casts Urine 16.12 /lpf; RBC Urine 0-2 /hpf (0-2); Squamous Epithelial Cell Urine 0-5 /hpf (0-5)
[2024-12-22 17:40] LABS: Glucose Point of Care 236 mg/dL (70-110)
[2024-12-22 17:43] LABS: Amphetamines Screen Urine Negative (Negative); Barbiturates Screen Urine Negative (Negative); Benzodiazepines Screen Urine Positive (Negative); Cocaine Screen Urine Negative (Negative); Opiate Screen Urine Negative (Negative); PCP Screen Urine Negative (Negative); THC Screen Urine Positive (Negative)
[2024-12-22 17:47] LABS: UA Slide Review UA Slide Review Perf
[2024-12-22 18:17] VITALS: BP 105/65; PULSE 98; RESP 16; O2SAT 98
== END 2024-12-22 18:17 | disposition home or self-care (01) ==
PROVIDERS: Emergency Provider Family Medicine; PCP Nurse Practitioner Family
DX: E10.649 Type 1 diabetes mellitus with hypoglycemia without coma (principal); N30.90 Cystitis, unspecified without hematuria
CPT/HCPCS: 36415; 36416; 36600; 71045; 80051; 80053; 80306; 81001; 82009; 82330; 82805; 82962; 85025; 96374; 99284; J2060

== ENCOUNTER → 2025-03-20 09:25 | Outpatient (BNVA) | payer OTHER, SELFPAY | PROVIDERS: PCP Nurse Practitioner Family; Visit Provider Internal Medicine | DX: E78.2 Mixed hyperlipidemia (principal); E10.9 Type 1 diabetes mellitus without complications | CPT/HCPCS: 36415; 80053; 80061; 82044; 83036 ==

== ENCOUNTER → 2025-04-09 12:01 | Outpatient (BNVA) | payer OTHER, SELFPAY | PROVIDERS: PCP Nurse Practitioner Family; Visit Provider Internal Medicine | DX: E10.9 Type 1 diabetes mellitus without complications (principal); E78.2 Mixed hyperlipidemia | CPT/HCPCS: 99214 ==

== ENCOUNTER 2025-04-19 00:40 | Emergency (ER) | payer OTHER, MEDICAID, SELFPAY ==
--- OUTSIDE RECORDS SUMMARY | 2025-04-19 00:44 | XMS_ITS | Clinical Summary ---
Author Organization [facility] Address [address] [address] Phone Care Team Providers Care Surgical Orderly Name Role Phone Ulisses Bui MD Primary Care Provider [phone] Allergies Active Allergy Reactions Criticality Noted Date Comments Promethazine Rash Low 05/09/2019 Medications insulin aspart (NovoLOG Flexpen) 100 unit/mL pen syringeIndicati ons:per sliding scale. Inject 17 Units by subcutaneous injection 4 times daily with meals . Active insulin aspart (NovoLOG ECHO PENFILL) 100 unit/mL cartridge Inject 12 Units by subcutaneous injection daily at bedtime. Active insulin glargine (TOUJEO SOLOSTAR) 300 unit/mL pen syringe Inject 30 Units by subcutaneous injection daily at bedtime. 1.5 mL 0 6 Active Social History Tobacco Use Types Packs/Day Years Used Date Smoking Tobacco: Never Smokeless Tobacco: Never Alcohol Use Standard Drinks/Week Comments No 0 (1 standard drink = 0.6 oz pur e alcohol) Sex and Gender Information Value Date Recorded Sex Assigned at Not on file Legal Sex Male 4:21 PM CDT Gender Identity Not on file Sexual Orientation Not on file Last Filed Vital Signs Vital Sign Reading Time Taken Comments Blood Pressure 94/56 05/09/2019 12:00 PM CDT Pulse 71 05/09/2019 12:00 PM CDT Temperature 36.3 C (97.4 F) 05/09/2019 9:07 AM CDT Respiratory Rate 12 05/09/2019 12:00 PM CDT Oxygen Saturation 95% 05/09/2019 12:00 PM CDT Inhaled Oxygen Concentration - - Weight 65.8 kg (145 lb) 05/09/2019 9:07 AM CDT Height 165.1 cm (5' 5 ) 05/09/2019 9:07 AM CDT Body Mass Index 24.13 05/09/2019 9:07 AM CDT Plan of Treatment Health Maintenance Due Date Last Done Comments HPV VACCINES (1 - Male 3-dose series) 2012 DTAP/TDAP/TD VACCINES (1 - Tdap) 2016 HEPATITIS B VACCINES (1 of 3 - 19+ 3-dose series) 03/05 INFLUENZA VACCINE (#1) 2025 Insurance MEDICAID [place] MEDICARE PART A AND B Care Teams Surgical Orderly Relationship Specialty Start Date End Date Ulisses Bui MD [address] [phone] PCP - General Endocrinology 06/07/16
--- OUTSIDE RECORDS SUMMARY | 2025-04-19 00:44 | XMS_ITS | Encounter Summary ---
Author Organization [facility] Address [address] [place] [address] Care Team Providers Care Informatics Nurse Specialist Name Role Phone Ulisses Bui MD Primary Care Provider [phone] Encounter Details Date Type Department Care Team (Late st Contact Info) Description 11/22/2018 Ancillary Orders [facility] Pre-Registration [place] CALL TO MAKE APPOINTMENT ONLY [address] [place] [address] Dave Valera MD [address] [place] [address] Demand ischemia (CMS/HCC); Acute kidney injury; DKA (diabetic ketoacidoses) (CMS/HCC) Social History Tobacco Use Types Packs/Day Years Used Date Smoking Tobacco: Never Smokeless Tobacco: Never Alcohol Use Standard Drinks/Week Comments No 0 (1 standard drink = 0.6 oz pur e alcohol) Sex and Gender Information Value Date Recorded Sex Assigned at Not on file Legal Sex Male 4:21 PM CDT Gender Identity Not on file Sexual Orientation Not on file documented as of this encounter Plan of Treatment Not on file documented as of this encounter Visit Diagnoses Diagnosis Demand ischemia (CMS/HCC) Other acute and subacute form of ischemic heart disease Acute kidney injury Acute kidney failure, unspecified DKA (diabetic ketoacidoses) (CMS/HCC) Type II or unspecified type diabetes mellitus with ketoacidosis, not stated as uncontrolled documented in this encounter Care Teams Informatics Nurse Specialist Relationship Specialty Start Date End Date Ulisses Bui MD [address] [phone] PCP - General Endocrinology 06/07/16 documented as of this encounter
--- OUTSIDE RECORDS SUMMARY | 2025-04-19 00:44 | XMS_ITS | Clinical Summary ---
Author Organization [facility] Address [address] [facility] Attn: Epic Prelude ADT LIN[place]OM[place] [address] Care Team Providers Care Stage Driver Name Role Phone Ulisses Bui MD Primary Care Provider [phone] Allergies Active Allergy Reactions Criticality Noted Date Comments Promethazine Rash Low 05/09/2019 Medications insulin glargine U-300 conc (TOUJEO) 300 unit/mL pen syringe Inject 30 Units by subcutaneous injection daily at bedtime. 1.5 mL 0 6 Active insulin aspart U-100 (NovoLOG ECHO PENFILL) 100 unit/mL cartridge Inject 12 Units by subcutaneous injection daily at bedtime. 6 Active insulin aspart U-100 (NovoLOG) 100 unit/mL pen syringe Inject 17 Units by subcutaneous injection 4 times daily with meals . 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
--- OUTSIDE RECORDS SUMMARY | 2025-04-19 00:44 | XMS_ITS | Encounter Summary ---
Author Organization [facility] Address [address] [place] [address] Care Team Providers Care Group Fitness Instructor Name Role Phone Ulisses Bui MD Primary Care Provider [phone] Reason for Referral * CT Scan (Routine) - Closed Specialty Diagnoses / Procedures Referred By Contmery t Referred To Contact Diagnoses Demand ischemia (CMS/HCC) Procedures CT CARDIAC CHEST INTERPRETATION Dave Valera MD [address] [place] [address] Phone: tel: Referral ID Status Reason Start Date Expiration Date Visits Re quested Visits Authorized [id number] Closed 05/09/2019 06/08/2020 1 1 Encounter Details Date Type Department Care Team (Late st Contact Info) Description 05/09/2019 Ancillary Orders [facility] Pre-Registration [place] CALL TO MAKE APPOINTMENT ONLY [address] [place] [phone] Dave Valera MD [address] [place] [address] Demand ischemia (CMS/HCC) Social History Tobacco Use Types Packs/Day [...] on file documented as of this encounter Results * CT CARDIAC CHEST INTERPRETATION (05/09/2019 12:19 PM CDT) Anatomical Region Laterality Modality Chest Computed Tomogra phy 05/09/2019 12:1 9 PM CDT Impressions 05/10/2019 6:46 AM CDT IMPRESSION: Bilateral pulmonary nodules measuring up to 1.3 cm. Follow-up chest CT in three months is recommended to document stability per current published guidelines. If the patient is high risk for malignancy, PET/CT would be recommended for further workup. [id number] Narrative 05/10/2019 6:[address] CARDIAC CHEST INTERPRETATION; Reason For Exam: See Diagnosis. Diagnosis: Demand ischemia. COMPARISON: None. TECHNIQUE: Following uneventful administration of 110 mL of nonionic intravenous contrast helical scanning was obtained of the chest, and reviewed in soft tissue and lung algorithm. The patient tolerated the procedure and there were no immediate complications. FINDINGS: LUNGS: No focal consolidation. A 1.3 cm right lower lobe pulmonary nodule is present on image eight series 303. There is also a 5 mm left lower lobe pulmonary nodule seen on image 26 series 303. . PLEURA: No pneumothorax or pleural effusion. LYMPH NODES: No pathologically enlarged mediastinal, axillary, or hilar lymph nodes. GREAT VESSELS: Reported by cardiology. HEART: Reported by cardiology. OSSEOUS STRUCTURES: The visualized skeletal structures are intact. UPPER ABDOMEN: Included portions of the upper abdomen are unremarkable. Procedure Note Dane Joseph MD - 05/10/2019 CT CARDIAC CHEST INTERPRETATION; Reason For Exam: See Diagnosis. Diagnosis: Demand ischemia. COMPARISON: None. TECHNIQUE: Following uneventful administration of 110 mL of nonionic intravenous contrast helical scanning was obtained of the chest, and reviewed in soft tissue and lung algorithm. The patient tolerated the procedure and there were no immediate complications. FINDINGS: LUNGS: No focal consolidation. A 1.3 cm right lower lobe pulmonary nodule is present on image eight series 303. There is also a 5 mm left lower lobe pulmonary nodule seen on image 26 series 303. . PLEURA: No pneumothorax or pleural effusion. LYMPH NODES: No pathologically enlarged mediastinal, axillary, or hilar lymph nodes. GREAT VESSELS: Reported by cardiology. HEART: Reported by cardiology. OSSEOUS STRUCTURES: The visualized skeletal structures are intact. UPPER ABDOMEN: Included portions of the upper abdomen are unremarkable. IMPRESSION: Bilateral pulmonary nodules measuring up to 1.3 cm. Follow-up chest CT in three months is recommended to document stability per current published guidelines. If the patient is high risk for malignancy, PET/CT would be recommended for further workup. [id number] ORDERABLES Final Resu lt documented in this encounter Visit Diagnoses Diagnosis Demand ischemia (CMS/HCC) Other acute and subacute form of ischemic heart disease Demand ischemia (CMS/HCC) Other acute and subacute form of ischemic heart disease documented in this encounter Care Teams Group Fitness Instructor Relationship Specialty Start Date End Date Ulisses Bui MD [address] [phone] PCP - General Endocrinology 06/07/16 documented as of this encounter
--- OUTSIDE RECORDS SUMMARY | 2025-04-19 00:44 | XMS_ITS | Encounter Summary ---
Author Organization [facility] Address [address] [place] [address] Care Team Providers Care Sole Splitter Name Role Phone Ulisses Bui MD Primary Care Provider [phone] Reason for Referral * CT Scan (Routine) - Closed Specialty Diagnoses / Procedures Referred By Melodie jennings Referred To Contact Radiology Diagnoses Demand ischemia (CMS/HCC) Procedures [facility] Dave Valera MD [address] [place] [address] Phone: tel: [facility] CT Scan [address] [place] [address] Phone: tel: fax: Referral ID Status Reason Start Date Expiration Date V isits Requested Visits Authorized [id number] Closed [facility] TO SCHEDULE (SGF) 05/09/2019 06/08/2019 1 1 Encounter Details Date Type Department Care Team (Late st Contact Info) Description 04/12/2019 Ancillary Orders [facility] Pre-Registration [place] CALL TO MAKE APPOINTMENT ONLY [address] [place] [address] Dave Valera MD [address] [place] [address] Demand ischemia (CMS/HCC) Social History Tobacco Use [...] documented as of this encounter Results * [facility] (05/09/2019 12:17 PM CDT) 05/10/2019 12:0 3 AM CDT Impressions INTERFACE SYSTEM - 05/10/2019 8:08 PM CDT Impression: 1. Normal coronary artery origins. The left anterior descending artery, left circumflex artery, and the right coronary artery are patent in their visualized segments with no focal stenosis. 2. Normal visualized thoracic aorta (only part of the ascending and descending thoracic aorta are visualized). 3. Please refer to separate dictation for non-cardiac findings. Thank you very much for the referral. Narrative INTERFACE SYSTEM - 05/10/2019 8:[address] coronary angiography, 05/09/2019 12:17 PM Comparison: No prior cardiac CT angiograms available for direct visual comparison. . Indication: This is a 24 [id number] Male with chest discomfort. Concerns for obstructive coronary artery disease.. The study is performed in an attempt to avoid an invasive procedure. Technique: Spiral acquisition during intravenous contrast administration using a 64-slice GE CT scan. Multi-planar 3-D volume-rendering reconstruction was performed using a [employer] work station. Consecutive thin slices (< 1mm) were obtained. Findings: The visualized thoracic aorta is normal in course, caliber, and contour (please note that only part of the ascending and descending thoracic aorta are visualized). There is no acute aortic pathology, specifically; there is no dissection, contained rupture, and intramural hematoma in the visualized thoracic aorta. The cardiac chamber size is normal. There is normal atrio-ventricular and ventriculo-arterial concordance, and systemic and pulmonary venous return. The mitral, and aortic valve has normal appearance. The tricuspid and pulmonic valve was not well visualized this examination. The pericardium is normal appearance. There is no evidence of pericardial effusion. 4 pulmonary veins are seen draining into the left atrium. The left atrial appendage is free from thrombus. The coronary arteries have normal origins. The left main coronary artery arises from the left sinus of Valsalva and gives rise to the left anterior descending and the left circumflex arteries in the normal fashion. The right coronary artery arises from the right sinus of Valsalva. The left main coronary artery is patent. The left anterior descending artery is patent and visualized to the apex where it becomes a small caliber vessel. The ostium of the first diagonal artery is patent The left circumflex artery is also patent the proximal mid and distal portions. It gives rise to a first small OM branch the ostium of which is also patent. The right coronary artery is a dominant vessel. It is patent throughout its course. It continues down and bifurcates into a posterior descending and posterolateral ventricular branch. Both of these arteries have minor plaquing but no significant obstructive disease. Procedure Note Abdiel Magaña MD - 05/10/2019 CT coronary angiography, 05/09/2019 12:17 PM Comparison: No prior cardiac CT angiograms available for direct visual comparison. . Indication: This is a 24 [id number] Male with chest discomfort. Concerns for obstructive coronary artery disease.. The study is performed in an attempt to avoid an invasive procedure. Technique: Spiral acquisition during intravenous contrast administration using a 64-slice GE CT scan. Multi-planar 3-D volume-rendering reconstruction was performed using a [employer] work station. Consecutive thin slices (< 1mm) were obtained. Findings: The visualized thoracic aorta is normal in course, caliber, and contour (please note that only part of the ascending and descending thoracic aorta are visualized). There is no acute aortic pathology, specifically; there is no dissection, contained rupture, and intramural hematoma in the visualized thoracic aorta. The cardiac chamber size is normal. There is normal atrio-ventricular and ventriculo-arterial concordance, and systemic and pulmonary venous return. The mitral, and aortic valve has normal appearance. The tricuspid and pulmonic valve was not well visualized this examination. The pericardium is normal appearance. There is no evidence of pericardial effusion. 4 pulmonary veins are seen draining into the left atrium. The left atrial appendage is free from thrombus. The coronary arteries have normal origins. The left main coronary artery arises from the left sinus of Valsalva and gives rise to the left anterior descending and the left circumflex arteries in the normal fashion. The right coronary artery arises from the right sinus of Valsalva. The left main coronary artery is patent. The left anterior descending artery is patent and visualized to the apex where it becomes a small caliber vessel. The ostium of the first diagonal artery is patent The left circumflex artery is also patent the proximal mid and distal portions. It gives rise to a first small OM branch the ostium of which is also patent. The right coronary artery is a dominant vessel. It is patent throughout its course. It continues down and bifurcates into a posterior descending and posterolateral ventricular branch. Both of these arteries have minor plaquing but no significant obstructive disease. Impression: 1. Normal coronary artery origins. The left anterior descending artery, left circumflex artery, and the right coronary artery are patent in their visualized segments with no focal stenosis. 2. Normal visualized thoracic aorta (only part of the ascending and descending thoracic aorta are visualized). 3. Please refer to separate dictation for non-cardiac findings. Thank you very much for the referral. us Dave Valera MD CT ORDERABLES Final Resu lt INTERFACE SYSTEM Refer to clinic/hospital department documented in this encounter Visit Diagnoses Diagnosis Demand ischemia (CMS/HCC) Other acute and subacute form of ischemic heart disease Demand ischemia (CMS/HCC) Other acute and subacute form of ischemic heart disease documented in this encounter Care Teams Sole Splitter Relationship Specialty Start Date End Date Ulisses Bui MD [address] [id number] PCP - General Endocrinology 06/07/16 documented as of this encounter
[2025-04-19 00:49] VITALS: BP 105/65; PULSE 77; RESP 18; TEMP 36.7; O2SAT 94
[2025-04-19 01:57] LABS: Hematocrit 43.5 % (37-53); Hemoglobin 14.90 g/dL (11.27-16.99); Mean Corpuscular HGB Conc 34.3 g/dL (30-55); Mean Corpuscular Hemoglobin 30.7 pg (27-33); Mean Corpuscular Volume 89.7 fl (82-101); Nucleated Red Blood Cells % 0 %; Platelet Count 210 10^3/cmm (157-399); Red Blood Count 4.85 10^6/uL (3.85-5.65); White Blood Count 9.71 10^3/uL (3.29-11.43)
[2025-04-19 02:15] LABS: Alanine Aminotransferase 19 U/L (0-41); Albumin Level 4.4 g/dL (3.5-5.2); Alkaline Phosphatase 47 U/L (40-130); Anion Gap 18.1 (5-19); Aspartate Amino Transferase 17 U/L (0-40); Blood Urea Nitrogen 15 mg/dL (6-20); Calcium 9.2 mg/dL (8.5-10.5); Carbon Dioxide 22 mmol/L (22-29); Chloride 106 mmol/L (98-107); Globulin 2.6 g/dL (1.3-4.6); Glucose 228 mg/dL (65-115); Osmolality Calculated 302 mOsm/kg (285-295); Potassium 4.1 mmol/L (3.5-5.1); Sodium 142 mmol/L (136-145); Total Protein 7.0 g/dL (6.6-8.7)
[2025-04-19 04:59] VITALS: BP 96/54; PULSE 96; O2SAT 94
--- NOTE | 2025-04-19 06:32 | ED_ITS ---
HPI - Nausea/Vomiting/Diarrhea 2 General: Chief complaint: Nausea/Vomiting/Diarrhea Stated complaint: N/V History of Present Illness: Pt with known diabetes presents to the ED for persistent vomiting. Duration is unclear, but symptoms were significant enough to require an earlier dose of Phenergan, after which pt was able to tolerate oral water. Pt denies abdominal pain, generalized pain, and diarrhea. No other Sx reported. Pt requests water during encounter and remains in no acute distress. 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 #1 10/18/22 (Dexcom G6 Promotions Assistant) insulin pump cartridge,automated #1 10/18/22 dose,BT with controller subcutaneous (Omnipod 5 G6 Intro Kit (Gen 5) subcutaneous cartridge with controller) sulfamethoxazole 800 1 tab PO Q12H #14 tabs 03/05 mg-trimethoprim 160 mg tablet (Bactrim DS) insulin pump cart,auto,BT,G6/7 #15 ea 03/14/25 (Omnipod 5 G6-G7 Pods (Gen 5) subcutaneous cartridge) insulin glargine 100 unit/mL (3 35 unit (0.35 mL) SUBC UT DAILY #15 03/20/25 mL) subcutaneous pen (Lantus mL Solostar U-100 Insulin) insulin lispro 100 unit/mL See Rx Instructions .Route 03/20/25 subcutaneous solution .COMPLEX #130 mL pen needle, diabetic 32 gauge x #100 ea 03/20/2511/18 (Comfort EZ Pen Sandy) insulin syringes (disposable) 1 mL #500 ea 04/01/25 Allergies Allergy/AdvReac Type Severity Reaction Status Date / Time ondansetron (From Zofran) Allergy Intermediate jittery/swe Verified 03/19/25 07:45 lling promethazine (From Phenergan) Allergy Unknown Verified 03/19/25 07:45 PFSH ED 2 PFSH: Medical History (Updated 04/19/25 @ 04:15 by Donny Joshi MD) Abdominal pain High anion gap metabolic acidosis DKA (diabetic ketoacidosis) Diabetic keto-acidosis Hyperglycemia Nausea & vomiting Noncompliance with diabetes treatment Methamphetamine abuse DKA (diabetic ketoacidoses) History of pancreatitis Long-term insulin use Hypoglycemia due to insulin Uncontrolled type 1 diabetes mellitus Pancreatitis Marijuana use GERD (gastroesophageal reflux disease) Type 1 diabetes With recurrent admissions for DKA, severe Surgical History No pertinent past surgical history Family History Other Diabetes Social History Smoking and tobacco/nicotine status: never used tobacco/nicotine Alcohol intake: never Substance/Drug Use: former Date of last use: Marijuana abuse Lives independently: Yes Household members: family Marital status: Single Current occupational status: disabled Physical Exam 2 Const: COMMON NORMALS: no acute distress, patient oriented x3 and alert HENMT: COMMON NORMALS: normocephalic and atraumatic HEAD & SCALP: n ormocephalic and atraumatic Eye: COMMON NORMALS: Equal, round and reactive pupils present, EOMs intact bilaterally and no scleral icterus PUPIL: Yes Equal, round and reactive pupils present Resp: COMMON NORMALS: normal respiratory effort and No retractions Cardio: COMMON NORMALS: regular rate, regular rhythm and No murmurs present (Cardio) RATE: regular rate RHYTHM: regular rhythm GI: COMMON NORMALS: Normal to inspection, nondistended, normoactive bowel sounds present, Soft to palpation and non-tender PALPATION: Yes Soft to palpation Neuro: COMMON NORMALS: patient oriented x3 SENSORIUM/ORIENTATION: Yes alert Skin: COMMON NORMALS: no rashes or lesions noted GENERAL SKIN EXAM: no rashes or lesions noted Course 2 Vital Signs: Vital signs: Vital Signs Temperature 98.1 F 04/19/25 00:49 Pulse Rate 96 04/19/25 04:59 Respiratory Rate 18 04/19/25 00:49 Blood Pressure 96/54 04/19/25 04:59 Pulse Oximetry 94 04/19/25 04:59 MDM - Nausea/Vomiting/Diarrhea Medical Decision Making Exam is reassuring after single dose of Phenergan he is able to eat and drink without difficulty. I do not suspect any other intra-abdominal process requiring CT. Labs are unremarkable. He will be discharged in stable and improved condition follow-up with primary care as needed. He is not in DKA as he suspected Lab Data 04/19/25 01:53 04/19/25 01:53 Laboratory Results WBC 9.71 10^3/uL (3.29-11.43) 04/19/25 01:53 RBC 4.85 10^6/uL (3.85-5.65) 04/19/25 01:53 Hgb 14.90 g/dL (11.27-16.99) 04/19/25 01:53 Hct 43.5 % (37-53) 04/19/25 01:53 MCV 89.7 fl (82-101) 04/19/25 01:53 MCH 30.7 pg (27-33) 04/19/25 01:53 MCHC 34.3 g/dL (30-55) 04/19/25 01:53 RDW 12.6 % (12.1-15.1) 04/19/25 01:53 Plt Count 210 10^3/cmm (157-399) 04/19/25 01:53 MPV 10.1 fL (7.4-10.4) 04/19/25 01:53 Neut % (Auto) 91.8 % 04/19/25 01:53 Lymph % (Auto) 4.9 % 04/19/25 01:53 [place] % (Auto) 2.8 % 04/19/25 01:53 Eos % (Auto) 0.0 % 04/19/25 01:53 Baso % (Auto) 0.2 % 04/19/25 01:53 Neut # (Auto) 8.91 10^3/uL (1.8-7.7) H 04/19/25 01:53 Lymph # (Auto) 0.5 10^3/uL (0.8-4.8) L 04/19/25 01:53 [place] # (Auto) 0.3 10^3/uL (0.2-0.9) 04/19/25 01:53 Eos # (Auto) 0.0 10^3/uL (0.0-0.8) 04/19/25 01:53 Baso # (Auto) 0.0 10^3/uL (0.0-0.1) 04/19/25 01:53 Nucleated RBC % (auto) 0 % 04/19/25 01:53 Nucleated RBCs # 0.0 /100WBC 04/19/25 01:53 Sodium 142 mmol/L (136-145) 04/19/25 01:53 Potassium 4.1 mmol/L (3.5-5.1) 04/19/25 01:53 Chloride 106 mmol/L (98-107) 04/19/25 01:53 Carbon Dioxide 22 mmol/L (22-29) 04/19/25 01:53 Anion Gap 18.1 (5-19) 04/19/25 01:53 BUN 15 mg/dL (6-20) 04/19/25 01:53 Creatinine 0.6 mg/dL (0.7-1.2) L 04/19/25 01:53 GFR Calculation 160.4 mL/min (90-130) H 04/19/25 01:53 Glucose 228 mg/dL (65-115) H 04/19/25 01:53 POC Glucose 215 mg/dL (70-110) H 04/19/25 01:39 Calculated Osmolality 302 mOsm/kg (285-295) H 04/19/25 01:53 Calcium 9.2 mg/dL (8.5-10.5) 04/19/25 01:53 Total Bilirubin 0.7 mg/dL (0.15-1.2) 04/19/25 01:53 AST 17 U/L (0-40) 04/19/25 01:53 ALT 19 U/L (0-41) 04/19/25 01:53 Alkaline Phosphatase 47 U/L (40-130) 04/19/25 01:53 Total Protein 7.0 g/dL (6.6-8.7) 04/19/25 01:53 Albumin 4.4 g/dL (3.5-5.2) 04/19/25 01:53 Globulin 2.6 g/dL (1.3-4.6) 04/19/25 01:53 No radiology studies performed this visit Discharge Plan Discharge Patient Disposition: Home Clinical Impression: Nausea & vomiting Condition: Stable Prescriptions: No Action insulin lispro 100 unit/mL solution See Rx Instructions .ROUTE .COMPLEX Qty: 130 0RF Dose Instruction: USE 150 UNITS VIA INSULIN PUMP DAILY Rx Instructions: USE 150 UNITS VIA INSULIN PUMP DAILY insulin glargine [Lantus Solostar U-100 Insulin] 100 unit/mL (3 mL) insulin pen 35 unit SUBCUT DAILY Qty: 15 0RF (DME) pen needle, diabetic [Comfort EZ Pen Sandy] 32 gauge x 3/16 needle See Rx Instructions .Route Qty: 100 0RF Rx Instructions: As directed sulfamethoxazole-trimethoprim [Bactrim DS] 800-160 mg tablet 1 tab PO Q12H Qty: 14 0RF (DME) Omnipod 5 G6 Intro Kit (Gen 5) Cartridge See Rx Instructions .ROUTE .MEDSUPPLY Qty: 1 0RF Rx Instructions: As directed (DME) Dexcom G6 Promotions Assistant Misc See Rx Instructions .ROUTE .MEDSUPPLY Qty: 1 0RF Rx Instructions: takes blood sugar (DME) Dexcom G6 Sensor Device See Rx Instructions .ROUTE .MEDSUPPLY Qty: 9 3RF Rx Instructions: Change every 10 days (DME) Dexcom G6 Transmitter Device See Rx Instructions .ROUTE .MEDSUPPLY Qty: 3 3RF Rx Instructions: change every 90 days (DME) strips See Rx Instructions .Route .MEDSUPPLY Qty: 1 3RF Rx Instructions: Check blood sugars 3 times daily, with meals, #200, 3 refills (DME) lancets Misc See Rx Instructions .Route Qty: 200 3RF Rx Instructions: check BS, TID with meals (DME) Omnipod 5 G6-G7 Pods (Gen 5) Cartridge See Rx Instructions .ROUTE .COMPLEX Qty: 15 0RF Dose Instruction: CHANGE POD EVERY 3 DAYS NEEDS APPOINTMENT FOR FURTHER REFILLS Rx Instructions: CHANGE POD EVERY 3 DAYS NEEDS APPOINTMENT FOR FURTHER REFILLS (DME) insulin syringes (disposable) 1 mL syringe See Rx Instructions .ROUTE .MEDSUPPLY Qty: 500 3RF Rx Instructions: use syringe to inject insulin six times a day (DME) blood sugar diagnostic Strip See Rx Instructions .Route Qty: 100 0RF Rx Instructions: As directed (DME) Blood Glucose Test Strip See Rx Instructions .Route Qty: 100 0RF Rx Instructions: As directed (DME) blood-glucose meter [Blood Glucose Monitoring] Kit See Rx Instructions .Route Qty: 1 0RF Rx Instructions: As directed (DME) strips See Rx Instructions .Route .MEDSUPPLY Qty: 200 3RF Rx Instructions: Check blood sugars 3 times daily, before meals (DME) lancets See Rx Instructions .Route .MEDSUPPLY Qty: 200 1RF Rx Instructions: Check blood sugars 3 times daily, before meals Discharge Orders: Discharge ED (Routine); Ordered 04/19/25 Ordered By: Donny Joshi Referrals: Earlene Titus FNP-C [Primary Care Provider, Family Practice] Discharge Diet: Advance as tolerated Discharge Activity: Increase activity as tolerated Patient Instructions: Acute Nausea and Vomiting (ED), Patient Portal & [facility]rado Instructions Activity Restrictions/Additional Instructions: Fortunately, your blood tests are reassuring with no evidence of diabetic ketoacidosis or other emergency requiring hospitalization or further workup. Print Language: Solomon Islander Coding Level of Care Code ED Date Pitter for Maxx Mohr
== END 2025-04-19 05:00 | disposition home or self-care (01) ==
PROVIDERS: Emergency Provider Student in an Organized Health Care Education/Training Program; PCP Nurse Practitioner Family
DX: R11.2 Nausea with vomiting, unspecified (principal); E10.9 Type 1 diabetes mellitus without complications
CPT/HCPCS: 36415; 36416; 80053; 82962; 85025; 99283; J7030

== ENCOUNTER 2025-05-02 17:20 | Emergency (ER) | payer OTHER, MEDICAID, SELFPAY ==
[2025-05-02 17:22] VITALS: BP 142/83; PULSE 85; RESP 30; TEMP 37.1; O2SAT 100; BMI 23.3
--- NOTE | 2025-05-02 17:25 | XRR_ITS ---
PROCEDURE INFORMATION: Exam: XR Chest Exam date and time: 05/02/2025 5:37 PM Age: 30 years old Clinical indication: Cough and dyspnea; Additional info: Dyspnea/cough TECHNIQUE: Imaging protocol: Radiologic exam of the chest. Views: 1 view. COMPARISON: CR XR chest 1V portable [id number] 12/22/2024 4:00 PM FINDINGS: Lungs: Unremarkable. No consolidation. Pleural spaces: Unremarkable. No pleural effusion. No pneumothorax. Heart/Mediastinum: Unremarkable. No cardiomegaly. Bones/joints: Unremarkable. XR/XR chest 1V portable [id number] IMPRESSION: No acute findings.
--- NOTE | 2025-05-02 17:25 | ECG_ITS ---
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 Measurements Intervals [place] Rate: 98 P: 65 TX: 121 QRS: 67 QRSD: 81 T: 49 QT: 353 QTc: 452 Interpretive Statements SINUS RHYTHM Compared to ECG 09/16/2024 14:48:02 Sinus tachycardia no longer present Incomplete right bundle-branch block no longer present Left posterior fascicular block no longer present Electronically Signed On 05-03-2025 22:40:56 CDT by Real Cerna M.D. [email or web address]
--- NOTE | 2025-05-02 17:30 | ED_ITS ---
HPI - General Adult 2 General: Chief complaint: General Medical Stated complaint: N/V, general malaise Time Seen by Provider: 05/02/25 17:25 History of Present Illness: 30-year-old male presents emergency room with nausea vomiting. Patient is a well-known diabetic. He is on insulin pump but we tried to explain to be something about part of the pump warming up ultimately pump has not been working today. He began to get sick this morning he denies any fever. He is brought in by EMS given him 500 LR before arrival. He is having persistent nausea and vomiting. He has some abdominal cramping discomfort from the persistent vomiting. Associated symptoms: Reports nausea and vomiting; Deny chest pain, dyspnea or rash Related Data Previous Rx's ?Medication ?Instructions ?Recorded blood sugar diagnostic #100 ea 03/20/21 blood sugar diagnostic (Blood #100 ea 03/20/21 Glucose Test strips) blood-glucose meter (Blood Glucose #1 ea 03/20/21 Monitoring kit) lancets #200 ea 05/17/21 strips #200 ea 05/17/21 lancets #200 ea 06/18/21 strips #1 ea 06/18/21 blood-glucose sensor (Dexcom G6 #9 ea 10/18/22 Sensor device) blood-glucose transmitter (Dexcom #3 ea 10/18/22 G6 Transmitter device) blood-glucose,filenet developer,cont #1 10/18/22 (Dexcom G6 Retread Mold Operator) insulin pump cartridge,automated #1 ea 10/18/22 dose,BT with controller subcutaneous (Omnipod 5 G6 Intro Kit (Gen 5) subcutaneous cartridge with controller) sulfamethoxazole 800 1 tab PO Q12H #14 tabs 03/05 mg-trimethoprim 160 mg tablet (Bactrim DS) insulin pump cart,auto,BT,G6/7 #15 ea 03/14/25 (Omnipod 5 G6-G7 Pods (Gen 5) subcutaneous cartridge) insulin lispro 100 unit/mL See Rx Instructions .Route 03/20/25 subcutaneous solution .COMPLEX #130 mL pen needle, diabetic 32 gauge x #100 ea 03/20/2511/18 (Comfort EZ Pen [place]) insulin syringes (disposable) 1 mL #500 ea 04/01/25 insulin glargine 100 unit/mL (3 See Rx Instructions .R oute 04/26/25 mL) subcutaneous pen (Lantus .COMPLEX #45 mL Solostar U-100 Insulin) Allergies Allergy/AdvReac Type Severity Reaction Status Date / Time ondansetron (From Zofran) Allergy Intermediate jittery/swe Verified 05/02/25 17:22 lling promethazine (From Phenergan) Allergy Unknown Verified 03/19/25 07:45 Review of Systems 2 Const: Denies: fever(s) or chills Card: Denies: chest pain Resp: Denies: dyspnea GI: Reports: nausea and vomiting; Denies: abdominal pain, hematemesis, coffee ground emesis, hematochezia or melena : Denies: dysuria, urinary frequency or urinary urgency Musc: Denies: neck pain or back pain Skin/Breast: Denies: rash PFSH ED 2 PFSH: Medical History Abdominal pain High anion gap metabolic acidosis DKA (diabetic ketoacidosis) Diabetic keto-acidosis Hyperglycemia Nausea & vomiting Noncompliance with diabetes treatment Methamphetamine abuse DKA (diabetic ketoacidoses) History of pancreatitis Long-term insulin use Hypoglycemia due to insulin Uncontrolled type 1 diabetes mellitus Pancreatitis Marijuana use GERD (gastroesophageal reflux disease) Type 1 diabetes With recurrent admissions for DKA, severe Surgical History No pertinent past surgical history Family History Other Diabetes Social History Smoking and tobacco/nicotine status: never used tobacco/nicotine Alcohol intake: never Substance/Drug Use: former Date of last use: Marijuana abuse Lives independently: Yes Household members: family Marital status: Single Current occupational status: disabled Physical Exam 2 Const: GENERAL APPEARANCE: cooperative ORIENTATION/CONSCIOUSNESS: Yes awake, Yes oriented to person, Yes oriented to place and Yes oriented to time HENMT: COMMON NORMALS: normocephalic, atraumatic and hearing grossly normal bilaterally HEAD & SCALP: normocephalic and atraumatic Resp: COMMON NORMALS: normal respiratory effort, No retractions, No use of accessory muscles and clear to auscultation bilaterally AUSCULTATION: clear to auscultation bilaterally Cardio: COMMON NORMALS: regular rate, regular rhythm and No murmurs present (Cardio) RATE: regular rate RHYTHM: regular rhythm GI: COMMON NORMALS: Soft to palpation and No hepatosplenomegaly present A USCULTATION: Yes normoactive bowel sounds PALPATION: Yes Soft to palpation, No Tenderness to palpation present (GI), No Guarding due to palpation present (GI) and Yes No hepatosplenomegaly present Extremity: COMMON NORMALS: normal to inspection, capillary refill normal, no clubbing, cyanosis or edema, no calf tenderness and no pedal edema Neuro: SENSORIUM/ORIENTATION: Yes oriented to person, Yes oriented to place and Yes oriented to time Skin: COMMON NORMALS: no rashes or lesions noted GENERAL SKIN EXAM: no rashes or lesions noted Course 2 Vital Signs: Vital signs: Vital Signs Temperature 98.8 F 05/02/25 17:22 Pulse Rate 85 05/02/25 17:22 Respiratory Rate 30 H 05/02/25 17:22 Blood Pressure 142/83 05/02/25 17:22 Pulse Oximetry 100 05/02/25 17:22 [facility] - General Adult Medical Decision Making Suspect DKA. Labs pending. Care signed out to Dr. Joshi at change of shift. See final notes for diagnosis and disposition. Lab Data 05/02/25 17:38 05/02/25 17:38 Radiology Impressions Chest X-Ray 05/02/25 17:25 IMPRESSION: No acute findings. Laboratory Results WBC 10.94 10^3/uL (3.29-11.43) 05/02/25 17:38 RBC 4.95 10^6/uL (3.85-5.65) 05/02/25 17:38 Hgb 15.60 g/dL (11.27-16.99) 05/02/25 17:38 Hct 45.1 % (37-53) 05/02/25 17:38 MCV 91.1 fl (82-101) 05/02/25 17:38 MCH 31.5 pg (27-33) 05/02/25 17:38 MCHC 34.6 g/dL (30-55) 05/02/25 17:38 RDW 12.6 % (12.1-15.1) 05/02/25 17:38 Plt Count 241 10^3/cmm (157-399) 05/02/25 17:38 MPV 9.8 fL (7.4-10.4) 05/02/25 17:38 Neut % (Auto) 83.3 % 05/02/25 17:38 Lymph % (Auto) 12.5 % 05/02/25 17:38 [place] % (Auto) 3.1 % 05/02/25 17:38 Eos % (Auto) 0.2 % 05/02/25 17:38 Baso % (Auto) 0.5 % 05/02/25 17:38 Neut # (Auto) 9.11 10^3/uL (1.8-7.7) H 05/02/25 17:38 Lymph # (Auto) 1.4 10^3/uL (0.8-4.8) 05/02/25 17:38 [place] # (Auto) 0.3 10^3/uL (0.2-0.9) 05/02/25 17:38 Eos # (Auto) 0.0 10^3/uL (0.0-0.8) 05/02/25 17:38 Baso # (Auto) 0.1 10^3/uL (0.0-0.1) 05/02/25 17:38 Nucleated RBC % (auto) 0 % 05/02/25 17:38 Nucleated RBCs # 0.0 /100WBC 05/02/25 17:38 BUN 11 mg/dL (6-20) 05/02/25 17:38 POC Glucose 355 mg/dL (70-110) H 05/02/25 17:23 Calculated Osmolality 294 mOsm/kg (285-295) 05/02/25 17:38 Calcium 9.6 mg/dL (8.5-10.5) 05/02/25 17:38 Magnesium 1.7 mg/dL (1.7-2.3) 05/02/25 17:38 Total Bilirubin 0.9 mg/dL (0.15-1.2) 05/02/25 17:38 AST 17 U/L (0-40) 05/02/25 17:38 ALT 15 U/L (0-41) 05/02/25 17:38 Alkaline Phosphatase 48 U/L (40-130) 05/02/25 17:38 Total Protein 7.5 g/dL (6.6-8.7) 05/02/25 17:38 Albumin 4.7 g/dL (3.5-5.2) 05/02/25 17:38 Globulin 2.8 g/dL (1.3-4.6) 05/02/25 17:38 Serum Ketones Negative (Negative) 05/02/25 17:38 All radiology interpretation(s) finalized by discharge Discharge Plan Discharge Condition: Stable Prescriptions: No Action insulin lispro 100 unit/mL solution See Rx Instructions .ROUTE .COMPLEX Qty: 130 0RF Dose Instruction: USE 150 UNITS VIA INSULIN PUMP DAILY Rx Instructions: USE 150 UNITS VIA INSULIN PUMP DAILY (DME) pen needle, diabetic [Comfort EZ Pen [place]] 32 gauge x 3/16 needle See Rx Instructions .Route Qty: 100 0RF Rx Instructions: As directed sulfamethoxazole-trimethoprim [Bactrim DS] 800-160 mg tablet 1 tab PO Q12H Qty: 14 0RF (DME) Omnipod 5 G6 Intro Kit (Gen 5) Cartridge See Rx Instructions .ROUTE .MEDSUPPLY Qty: 1 0RF Rx Instructions: As directed (DME) Dexcom G6 Retread Mold Operator Misc See Rx Instructions .ROUTE .MEDSUPPLY Qty: 1 0RF Rx Instructions: takes blood sugar (DME) Dexcom G6 Sensor Device See Rx Instructions .ROUTE .MEDSUPPLY Qty: 9 3RF Rx Instructions: Change every 10 days (DME) Dexcom G6 Transmitter Device See Rx Instructions .ROUTE .MEDSUPPLY Qty: 3 3RF Rx Instructions: change every 90 days (DME) strips See Rx Instructions .Route .MEDSUPPLY Qty: 1 3RF Rx Instructions: Check blood sugars 3 times daily, with meals, #200, 3 refills (DME) lancets Misc See Rx Instructions .Route Qty: 200 3RF Rx Instructions: check BS, TID with meals (DME) Omnipod 5 G6-G7 Pods (Gen 5) Cartridge See Rx Instructions .ROUTE .COMPLEX Qty: 15 0RF Dose Instruction: CHANGE POD EVERY 3 DAYS NEEDS APPOINTMENT FOR FURTHER REFILLS Rx Instructions: CHANGE POD EVERY 3 DAYS NEEDS APPOINTMENT FOR FURTHER REFILLS (DME) insulin syringes (disposable) 1 mL syringe See Rx Instructions .ROUTE .MEDSUPPLY Qty: 500 3RF Rx Instructions: use syringe to inject insulin six times a day insulin glargine [Lantus Solostar U-100 Insulin] 100 unit/mL (3 mL) insulin pen See Rx Instructions .ROUTE .COMPLEX Qty: 45 0RF Dose Instruction: INJECT 35 UNITS SUBCUTANEOUSLY ONCE DAILY Rx Instructions: INJECT 35 UNITS SUBCUTANEOUSLY ONCE DAILY (DME) blood sugar diagnostic Strip See Rx Instructions .Route Qty: 100 0RF Rx Instructions: As directed (DME) Blood Glucose Test Strip See Rx Instructions .Route Qty: 100 0RF Rx Instructions: As directed (DME) blood-glucose meter [Blood Glucose Monitoring] Kit See Rx Instructions .Route Qty: 1 0RF Rx Instructions: As directed (DME) strips See Rx Instructions .Route .MEDSUPPLY Qty: 200 3RF Rx Instructions: Check blood sugars 3 times daily, before meals (DME) lancets See Rx Instructions .Route .MEDSUPPLY Qty: 200 1RF Rx Instructions: Check blood sugars 3 times daily, before meals Referrals: Earlene Titus FNP-C [Primary Care Provider, Family Practice] Print Language: Wolof Coding 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
[2025-05-02 17:54] LABS: Hematocrit 45.1 % (37-53); Hemoglobin 15.60 g/dL (11.27-16.99); Mean Corpuscular HGB Conc 34.6 g/dL (30-55); Mean Corpuscular Hemoglobin 31.5 pg (27-33); Mean Corpuscular Volume 91.1 fl (82-101); Nucleated Red Blood Cells % 0 %; Platelet Count 241 10^3/cmm (157-399); Red Blood Count 4.95 10^6/uL (3.85-5.65); White Blood Count 10.94 10^3/uL (3.29-11.43)
--- OUTSIDE RECORDS SUMMARY | 2025-05-02 17:55 | XMS_ITS | Encounter Summary ---
Author Organization [facility] Address [address] [place] [address] Care Team Providers Care Interpreter Name Role Phone Ulisses Bui MD Primary Care Provider [phone] Encounter Details Date Type Department Care Team (Late st Contact Info) Description 11/22/2018 Ancillary Orders [facility] Pre-Registration [place] CALL TO MAKE APPOINTMENT ONLY [address] [place] [address] Dave Valera MD [address] [place] [address] Demand ischemia (CMS/HCC); Acute kidney injury; DKA [...] uncontrolled documented in this encounter Care Teams Interpreter Relationship Specialty Start Date End Date Ulisses Bui MD [address] [phone] PCP - General Endocrinology 06/07/16 documented as of this encounter
--- OUTSIDE RECORDS SUMMARY | 2025-05-02 17:55 | XMS_ITS | Clinical Summary ---
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
--- OUTSIDE RECORDS SUMMARY | 2025-05-02 17:55 | XMS_ITS | Clinical Summary ---
Author Organization [facility] Address [address] [address] Phone Care Team Providers Care Operator Engineer Name Role Phone Ulisses Bui MD Primary Care Provider [phone] Allergies Active Allergy Reactions Criticality Noted Date [...] SCDM series) 2024 INFLUENZA VACCINE (#1) 2025 Insurance [place]ICA[place] PART A AND B Care Teams Operator Engineer Relationship Specialty Start Date End Date Ulisses Bui [facility] [address] [facility] [address] [phone] PCP - General Endocrinology 06/07/16
--- OUTSIDE RECORDS SUMMARY | 2025-05-02 17:55 | XMS_ITS | Encounter Summary ---
Author Organization [facility] Address [address] [place] [address] Care Team Providers Care Gem Technician Name Role Phone Ulisses Bui MD Primary Care Provider [phone] Reason for Referral * CT Scan (Routine) - Closed Specialty Diagnoses / Procedures Referred By Contmery t Referred To Contact Diagnoses Demand ischemia (CMS/HCC) Procedures CT CARDIAC CHEST INTERPRETATION Dave Valera MD [address] [place] [address] Phone: tel: Referral ID Status Reason Start Date Expiration Date Visits Re quested Visits Authorized [id number] Closed 05/09/2019 06/08/2020 1 1 Encounter Details Date Type Department Care Team (Late st Contact Info) Description 05/09/2019 Ancillary Orders [facility] Pre-Registration [place] CALL TO MAKE APPOINTMENT ONLY [address] [place] [phone] Dave Valera MD [address] [place] [address] Demand ischemia (CMS/HCC) Social History Tobacco Use [...] PET/CT would be recommended for further workup. [id number] Narrative 05/10/2019 6:[address] CARDIAC [...] PET/CT would be recommended for further workup. [id number] ORDERABLES Final Resu lt documented in this encounter Visit Diagnoses Diagnosis Demand ischemia (CMS/HCC) Other acute and subacute form of ischemic heart disease Demand ischemia (CMS/HCC) Other acute and subacute form of ischemic heart disease documented in this encounter Care Teams Gem Technician Relationship Specialty Start Date End Date Ulisses Bui MD [address] [phone] PCP - General Endocrinology 06/07/16 documented as of this encounter
--- OUTSIDE RECORDS SUMMARY | 2025-05-02 17:55 | XMS_ITS | Encounter Summary ---
Author Organization [facility] Address [address] [place] [address] Care Team Providers Care Director Of Pupil Personnel Program Name Role Phone Ulisses Bui MD Primary Care Provider [phone] Reason for Referral * CT Scan (Routine) - Closed Specialty Diagnoses / Procedures Referred By Melodie t Referred To Contact Radiology Diagnoses Demand ischemia (CMS/HCC) Procedures [facility] Dave Valera MD [address] [place] [address] Phone: tel: [facility] CT Scan [address] [place] [address] Phone: tel: fax: Referral ID Status Reason Start Date Expiration Date V isits Requested Visits Authorized [id number] Closed [facility] TO SCHEDULE ([facility]) 05/09/2019 06/08/2019 1 1 Encounter Details Date Type Department Care Team (Late st Contact Info) Description 04/12/2019 Ancillary Orders [facility] Pre-Registration [place] CALL TO MAKE APPOINTMENT ONLY [address] [place] [address] Dave Valera MD [address] [place] [address] Demand ischemia (CMS/HCC) Social History Tobacco Use [...] comparison. . Indication: This is a 24 [id number] Male with chest discomfort. Concerns for obstructive coronary artery disease.. The study is performed in an attempt to avoid an invasive procedure. Technique: Spiral acquisition during intravenous contrast administration using a 64-slice GE CT scan. Multi-planar 3-D volume-rendering reconstruction was performed using a Zipwhipa work station. Consecutive thin slices (< 1mm) [...] comparison. . Indication: This is a 24 [id number]-[id number] Male with chest discomfort. Concerns for obstructive coronary artery disease.. The study is performed in an attempt to avoid an invasive procedure. Technique: Spiral acquisition during intravenous contrast administration using a 64-slice GE CT scan. Multi-planar 3-D volume-rendering reconstruction was performed using a Vacunek work station. Consecutive thin slices (< 1mm) [...] disease documented in this encounter Care Teams Director Of Pupil Personnel Program Relationship Specialty Start Date End Date Ulisses Bui MD [address] [phone] PCP - General Endocrinology 06/07/16 documented as of this encounter
[2025-05-02 17:59] LABS: Ketone (Acetest) Serum Negative (Negative)
[2025-05-02 18:08] LABS: Alanine Aminotransferase 15 U/L (0-41); Albumin Level 4.7 g/dL (3.5-5.2); Alkaline Phosphatase 48 U/L (40-130); Aspartate Amino Transferase 17 U/L (0-40); Blood Urea Nitrogen 11 mg/dL (6-20); Calcium 9.6 mg/dL (8.5-10.5); Carbon Dioxide 21 mmol/L (22-29); Chloride 97 mmol/L (98-107); Creatinine Clr Calc Pharmacy 161.5216; Globulin 2.8 g/dL (1.3-4.6); Glucose 396 mg/dL (65-115); Magnesium 1.7 mg/dL (1.7-2.3); Osmolality Calculated 294 mOsm/kg (285-295); Sodium 134 mmol/L (136-145); Total Protein 7.5 g/dL (6.6-8.7)
[2025-05-02 18:10] VITALS: BP 139/89; PULSE 91; RESP 18; O2SAT 99
[2025-05-02 18:12] LABS: Anion Gap 20.5 (5-19); Potassium 4.5 mmol/L (3.5-5.1)
[2025-05-02 18:28] LABS: ABG PCO2 33.2 mmHg (35-45); ABG PH Result 7.37 (7.35-7.45); Alveolar-Arterial Oxygen Gradi 1.4 mmHg (5-10); Arterial Blood Gas Hematocrit 43.6 % (42-52); Blood Gas Allen Test Pos; Blood Gas Operator Identificat BROMA; Blood Gas Sample Site Radial, right; Blood Gas Sample Type Arterial; Carboxyhemoglobin 1.2 %THgb (0.4-20.1); Glucose Level-ABG 448.0 mg/dL (70-115); HCO3 ABG 19.3 mmol/L (22-26); Ionized Calcium Level - ABG 1.1 mmol/L (1.1-1.4); Methemoglobin 1.0 % (0.4-1.5); Oxygen Saturation ABG 98.1; PO2 ABG 96.6 mmHg (80.0-100.0); PO2 FiO2 Ratio Arterial Blood 460; Potassium Level - ABG 5.2 mmol/L (3.5-5.0); Sodium Level - ABG 138.0 mmol/L (131-143)
[2025-05-02] MEDS: insulin regular-human 100 units/1 mL 10 UNIT IVP (18:45)
[2025-05-02 19:01] LABS: Glucose Urine UA 3+ (Normal); Nitrate Urine Negative (Negative)
[2025-05-02 19:04] LABS: Add Urine Microscopic? YES
[2025-05-02 19:08] LABS: Specific Gravity, Urine 1.035 (1.005-1.030)
[2025-05-02] MEDS: ondansetron 2 mg/ML SDV 2 mL 4 MG IVP (19:08)
[2025-05-02 19:58] VITALS: BP 115/96; PULSE 74; RESP 16; O2SAT 96
[2025-05-02 20:43] LABS: Anion Gap 16.1 (5-19); Blood Urea Nitrogen 12 mg/dL (6-20); Calcium 8.1 mg/dL (8.5-10.5); Carbon Dioxide 20 mmol/L (22-29); Chloride 109 mmol/L (98-107); Creatinine Clr Calc Pharmacy 161.5216; Glucose 308 mg/dL (65-115); Osmolality Calculated 303 mOsm/kg (285-295); Potassium 4.1 mmol/L (3.5-5.1); Sodium 141 mmol/L (136-145)
[2025-05-02 21:40] VITALS: BP 102/56; PULSE 107; RESP 21; O2SAT 97
[2025-05-02 22:54] VITALS: BP 103/58; PULSE 105; RESP 19; O2SAT 95
== END 2025-05-02 23:42 | disposition home or self-care (01) ==
PROVIDERS: Family Medicine; Emergency Provider Student in an Organized Health Care Education/Training Program; PCP Nurse Practitioner Family
DX: R11.2 Nausea with vomiting, unspecified (principal); R05.9 Cough, unspecified; R06.00 Dyspnea, unspecified; E10.9 Type 1 diabetes mellitus without complications
CPT/HCPCS: 36415; 36416; 36600; 71045; 80048; 80051; 80053; 81001; 82009; 82330; 82805; 82962; 83735; 85025; 93005; 96361; 96374; 96376; 99285; J1815; J2405; J7030

== ENCOUNTER 2025-05-03 14:05 | Inpatient (IN) | payer OTHER, MEDICAID, SELFPAY ==
[2025-05-03 14:07] VITALS: BP 135/70; PULSE 100; TEMP 36.9; O2SAT 98
--- NOTE | 2025-05-03 14:12 | XR_ITS ---
WS: [id number] Exam: XR chest 1V portable [id number] Date/Time of Exam: 05/03/2025 2:17 PM Reason For Exam: sob Comparison 05/02/2025. Lungs are fully inflated and clear. Normal cardiomediastinal silhouette. Regional bony elements are intact. No pleural effusion. XR/XR chest 1V portable [id number] IMPRESSION: 1. Normal chest.
--- NOTE | 2025-05-03 14:14 | W.ED.RECABL ---
HPI - Recheck/Abnormal Lab/Rx General: Chief Complaint: Recheck/Abnormal Lab/Rx Stated Complaint: hyperglycemia, N/V Time Seen by Provider: 05/03/25 14:07 History of Present Illness: Patient comes in by EMS with vomiting, and high blood sugar. Patient has a history of type 1 diabetes. Was seen here yesterday for nausea and vomiting, and was discharged after his symptoms were controlled. Comes back today with vomiting, dry heaving. States he was unable to get the parts for his insulin pump so he has been trying to give himself insulin manually. States he smokes marijuana with the last episode being 2 days ago. States he smokes weed regularly. I talked with him about weed and gastroparesis. We also discussed the risks of smoking marijuana and developing gastroparesis especially with diabetes. Will check labs, give IV fluids, treat nausea with 10 mg of IV Reglan, and reassess. Related Data Previous Rx's ?Medication ?Instructions ?Recorded blood sugar diagnostic #100 ea 03/20/21 blood sugar diagnostic (Blood #100 03/20/21 Glucose Test strips) blood-glucose meter (Blood Glucose #1 03/20/21 Monitoring kit) lancets #200 ea 05/17/21 strips #200 ea 05/17/21 lancets #200 ea 06/18/21 strips #1 06/18/21 blood-glucose sensor (Dexcom G6 #9 10/18/22 Sensor device) blood-glucose transmitter (Dexcom #3 10/18/22 G6 Transmitter device) blood-glucose,floor clerk,cont #1 10/18/22 (Dexcom G6 Registered Nurse Cardiac) insulin pump cartridge,automated #1 10/18/22 dose,BT with controller subcutaneous (Omnipod 5 G6 Intro Kit (Gen 5) subcutaneous cartridge with controller) sulfamethoxazole 800 1 tab PO Q12H #14 tabs 03/05/25 mg-trimethoprim 160 mg tablet (Bactrim DS) insulin pump cart,auto,BT,G6/7 #15 ea 03/14/25 (Omnipod 5 G6-G7 Pods (Gen 5) subcutaneous cartridge) insulin lispro 100 unit/mL See Rx Instructions .Route 03/20/25 subcutaneous solution .COMPLEX #130 mL pen needle, diabetic 32 gauge x #100 ea 03/20/2511/18 (Comfort EZ Pen [place]) insulin syringes (disposable) 1 mL #500 ea 04/01/25 insulin glargine 100 unit/mL (3 See Rx Instructions .Route 04/26/25 mL) subcutaneous pen (Lantus .COMPLEX #45 mL Solostar U-100 Insulin) ondansetron 4 mg disintegrating 4 mg PO Q8H PRN nausea and 05/02/25 tablet vomiting 4 days #20 tabs Allergies Allergy/AdvReac Type Severity Reaction Status Date / Time promethazine (From Phenergan) Allergy Unknown Verified 05/03/25 14:14 Review of Systems Const: Denies: fever(s) ENMT: Denies: throat pain Card: Denies: chest pain or palpitations PFS ED PFSH: Medical History (Updated 05/03/25 @ 15:41 by Hero Cho MD) Abdominal pain High anion gap metabolic acidosis DKA (diabetic ketoacidosis) Diabetic keto-acidosis Hyperglycemia Nausea & vomiting Noncompliance with diabetes treatment Methamphetamine abuse DKA (diabetic ketoacidoses) History of pancreatitis Long-term insulin use Hypoglycemia due to insulin Uncontrolled type 1 diabetes mellitus Pancreatitis Marijuana use GERD (gastroesophageal reflux disease) Type 1 diabetes With recurrent admissions for DKA, severe Surgical History No pertinent past surgical history Family History Other Diabetes Social History Smoking and tobacco/nicotine status: never used tobacco/nicotine Alcohol intake: never Substance/Drug Use: former Date of last use: Marijuana abuse Lives independently: Yes Household members: family Marital status: Single Current occupational status: disabled Physical Exam Const: COMMON NORMALS: patient oriented x3 and alert HENMT: COMMON NORMALS: normocephalic and atraumatic HEAD & SCALP: normocephalic and atraumatic Neck/C-Spine: COMMON NORMALS: full ROM and supple Resp: COMMON NORMALS: normal respiratory effort, No retractions and No use of accessory muscles Cardio: COMMON NORMALS: regular rhythm RHYTHM: regular rhythm OTHER: Tachycardia GI: OTHER: Abdomen is soft, nontender, nondistended, decreased bowel sounds Extremity: COMMON NORMALS: normal to inspection and full ROM Neuro: COMMON NORMALS: patient oriented x3 SENSORIUM/ORIENTATION: Yes alert Psych: COMMON NORMALS: mental status grossly normal and cooperative Course Vital Signs: Vital signs: Vital Signs Temperature 98.4 F 05/03/25 14:07 Pulse Rate 118 H 05/03/25 14:54 Blood Pressure 123/63 05/03/25 14:54 Pulse Oximetry 98 05/03/25 14:54 Oxygen Delivery Me thod Room Air 05/03/25 14:54 MDM - Recheck/Abnormal Lab/Rx Medical Decision Making On reassessment the patient's white blood cell count is elevated. Will check blood cultures in addition to the lactic acid already ordered. Will continue IV fluid resuscitation. I ordered 2 L which is more than the 30 cc/kg bolus. Will hold antibiotics at this time as he has no infectious symptoms and I suspect this is likely DKA due to his elevated blood sugar. His pH was 7.26 Patient's anion gap is elevated at 31. His bicarb is 11. Will start insulin drip and admit for further workup and treatment of his DKA. Lab Data 05/03/25 14:27 05/03/25 14:27 Radiology Impressions Chest X-Ray 05/03/25 14:12 IMPRESSION: 1. Normal chest. Laboratory Results WBC 13.43 10^3/uL (3.29-11.43) H 05/03/25 14:27 RBC 4.54 10^6/uL (3.85-5.65) 05/03/25 14:27 Hgb 13.90 g/dL (11.27-16.99) 05/03/25 14:27 Hct 41.9 % (37-53) 05/03/25 14:27 MCV 92.3 fl (82-101) 05/03/25 14:27 MCH 30.6 pg (27-33) 05/03/25 14:27 MCHC 33.2 g/dL (30-55) 05/03/25 14:27 RDW 12.6 % (12.1-15.1) 05/03/25 14:27 Plt Count 231 10^3/cmm (157-399) 05/03/25 14:27 MPV 10.1 fL (7.4-10.4) 05/03/25 14:27 Neut % (Auto) 91.3 % 05/03/25 14:27 Lymph % (Auto) 5.2 % 05/03/25 14:27 [place] % (Auto) 2.8 % 05/03/25 14:27 Eos % (Auto) 0.0 % 05/03/25 14:27 Baso % (Auto) 0.2 % 05/03/25 14:27 Neut # (Auto) 12.26 10^3/uL (1.8-7.7) H 05/03/25 14:27 Lymph # (Auto) 0.7 10^3/uL (0.8-4.8) L 05/03/25 14:27 [place] # (Auto) 0.4 10^3/uL (0.2-0.9) 05/03/25 14:27 Eos # (Auto) 0.0 10^3/uL (0.0-0.8) 05/03/25 14:27 Baso # (Auto) 0.0 10^3/uL (0.0-0.1) 05/03/25 14: Nucleated RBC % (auto) 0 % 05/03/25 14: Nucleated RBCs # 0.0 /100WBC 05/03/25 14:27 Specimen Type Venous 05/03/25 14:25 Sample Site Not specified 05/03/25 14:25 Hasmukh Test N/a 05/03/25 14:25 VBG pH 7.27 (7.32-7.42) L 05/03/25 14:25 VBG pCO2 26.2 mmHg (41-51) L 05/03/25 14:25 VBG pO2 65.0 mmHg (25-40) H 05/03/25 14:25 VBG HCO3 11.9 mmol/L (24-28) L 05/03/25 14:25 VBG Base Excess -13.3 mmol/L (-3.0-3.0) L 05/03/25 14: VBG Hematocrit 45.4 % (42-52) 05/03/25 14:25 O2 Delivery Device Room air 05/03/25 14:25 FiO2 21.0 % 05/03/25 14:25 Disc Ruler Operator ID Amh 05/03/25 14:25 Sodium 134 mmol/L (136-145) L 05/03/25 14:27 Potassium 5.1 mmol/L (3.5-5.1) 05/03/25 14:27 Chloride 97 mmol/L (98-107) L 05/03/25 14:27 Carbon Dioxide 11 mmol/L (22-29) L 05/03/25 14:27 Anion Gap 31.1 (5-19) H 05/03/25 14:27 BUN 15 mg/dL (6-20) 05/03/25 14:27 Creatinine 0.7 mg/dL (0.7-1.2) 05/03/25 14:27 GFR Calculation 134.3 mL/min (90-130) H 05/03/25 14:27 Glucose 455 mg/dL (65-115) H 05/03/25 14:27 POC Glucose 356 mg/dL (70-110) H 05/03/25 15:16 Calculated Osmolality 299 mOsm/kg (285-295) H 05/03/25 14:27 Lactic Acid 2.9 mmol/L (0.5-2.2) H 05/03/25 14:27 Calcium 9.0 mg/dL (8.5-10.5) 05/03/25 14:27 Total Bilirubin 1.0 mg/dL (0.15-1.2) 05/03/25 14:27 AST 17 U/L (0-40) 05/03/25 14:27 ALT 19 U/L (0-41) 05/03/25 14:27 Alkaline Phosphatase 49 U/L (40-130) 05/03/25 14:27 Total Protein 6.9 g/dL (6.6-8.7) 05/03/25 14:27 Albumin 4.3 g/dL (3.5-5.2) 05/03/25 14:27 Globulin 2.6 g/dL (1.3-4.6) 05/03/25 14:27 Urine Color Yellow (Yellow) 05/03/25 14:30 Urine Appearance Clear (CLEAR) 05/03/25 14:30 Urine pH 5.5 (5-7) 05/03/25 14:30 Ur Specific [place] 1.031 (1.005-1.030) H 05/03/25 14:30 Urine Protein Negative (Negative) 05/03/25 14:30 Urine Glucose (UA) 3+ (Normal) H 05/03/25 14:30 Urine Ketones 4+ (Negative) 05/03/25 14:30 Urine Blood Negative (Negative) 05/03/25 14:30 Urine Nitrate Negative (Negative) 05/03/25 14:30 Urine Bilirubin Negative (Negative) 05/03/25 14:30 Urine Urobilinogen 0.2 mg/dL (Negative) 05/03/25 14:30 Ur Leukocyte Esterase Negative (Negative) 05/03/25 14:30 Amorphous Sediment Not Reportable 05/03/25 14:30 Urine Opiates Screen Negative ng/mL (Negative) 05/03/25 14:30 Ur Barbiturates Screen Negative ng/mL (Negative) 05/03/25 14:30 Ur Phencyclidine Scrn Negative ng/mL (Negative) 05/03/25 14:30 Ur Amphetamines Screen Negative ng/mL (Negative) 05/03/25 14:30 U Benzodiazepines Scrn Negative ng/mL (Negative) 05/03/25 14:30 Urine Cocaine Screen Negative ng/mL (Negative) 05/03/25 14:30 U Marijuana (THC) Screen Positive ng/mL (Negative) H 05/03/25 14:30 Serum Ketones Positive (Negative) H 05/03/25 14:27 All radiology interpretation(s) finalized by discharge Critical Care Time Critical Care Time: Critical Care Time: Yes Total Critical Care Time: 35 Attestation: This case had a high probability of a clinically significant, sudden, or life threatening deterioration of this patient's condition which required my full and direct attention, intervention and personal management. Discharge Plan Discharge Patient Disposition: Admitted As Inpatient Clinical Impression: DKA (diabetic ketoacidosis) Qualifiers: Diabetes mellitus type: type 1 Diabetes mellitus complication detail: without coma Qualified Code(s): E10.10 - Type 1 diabetes mellitus with ketoacidosis without coma Condition: Stable Coding Level of Care Code ED [place] Head for Maxx Mohr
--- OUTSIDE RECORDS SUMMARY | 2025-05-03 14:16 | XMS_ITS | Clinical Summary ---
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
--- OUTSIDE RECORDS SUMMARY | 2025-05-03 14:16 | XMS_ITS | Encounter Summary ---
Author Organization [facility] Address [address] [place] [address] Care Team Providers Care Jewelry Mechanic Name Role Phone Ulisses Bui MD Primary Care Provider [phone] Reason for Referral * CT Scan (Routine) - Closed Specialty Diagnoses / Procedures Referred By Melodie t Referred To Contact Radiology Diagnoses Demand ischemia (CMS/HCC) Procedures [facility] ART[facility] Dave Valera MD [address] [place] [address] Phone: tel: [facility] CT Scan [address] [place] [address] Phone: tel: fax: Referral ID Status Reason Start Date Expiration Date V isits Requested Visits Authorized [id number] Closed [facility] TO SCHEDULE (SGF) 05/09/2019 06/08/2019 1 1 Encounter Details Date Type Department Care Team (Late st Contact Info) Description 04/12/2019 Ancillary Orders [facility] Pre-Registration [place] CALL TO MAKE APPOINTMENT ONLY [address] [place] [address] Dave Valera MD [address] [place] [address] Demand ischemia (CMS/HCC) Social History Tobacco Use [...] comparison. . Indication: This is a 24 zptzu-khjy-ulz Male with chest discomfort. Concerns for obstructive coronary artery disease.. The study is performed in an attempt to avoid an invasive procedure. Technique: Spiral acquisition during intravenous contrast administration using a 64-slice GE CT scan. Multi-planar 3-D volume-rendering reconstruction was performed using a Page Magea work station. Consecutive thin slices (< 1mm) [...] comparison. . Indication: This is a 24 nnaxl-hzuh-dvw Male with chest discomfort. Concerns for obstructive coronary artery disease.. The study is performed in an attempt to avoid an invasive procedure. Technique: Spiral acquisition during intravenous contrast administration using a 64-slice GE CT scan. Multi-planar 3-D volume-rendering reconstruction was performed using a [employer] work station. Consecutive thin slices (< 1mm) [...] disease documented in this encounter Care Teams Jewelry Mechanic Relationship Specialty Start Date End Date Ulisses Bui MD [address] [phone] PCP - General Endocrinology 06/07/16 documented as of this encounter
--- OUTSIDE RECORDS SUMMARY | 2025-05-03 14:16 | XMS_ITS | Clinical Summary ---
Author Organization [facility] Address [address] [address] Phone Care Team Providers Care Research Software Engineer Name Role Phone Ulisses Bui MD Primary Care Provider Allergies Active Allergy Reactions Criticality Noted Date [...] 2024 INFLUENZA VACCINE (#1) 2025 Insurance MEDICAID [place] MEDICARE PART A AND B Care Teams Research Software Engineer Relationship Specialty Start Date End Date Ulisses Bui MD [address] [facility] [address] [phone] PCP - General Endocrinology 06/07/16
--- OUTSIDE RECORDS SUMMARY | 2025-05-03 14:16 | XMS_ITS | Encounter Summary ---
Author Organization [facility] Address [address] [place] [address] Care Team Providers Care Ross Lift Operator Name Role Phone Ulisses Bui MD Primary Care Provider [phone] Reason for Referral * CT Scan (Routine) - Closed Specialty Diagnoses / Procedures Referred By Contmery t Referred To Contact Diagnoses Demand ischemia (CMS/HCC) Procedures CT CARDIAC CHEST INTERPRETATION Dave Valera MD [address] [place] [address] Phone: tel: Referral ID Status Reason Start Date Expiration Date Visits Re quested Visits Authorized [id number] Closed 05/09/2019 06/08/2020 1 1 Encounter Details Date Type Department Care Team (Late st Contact Info) Description 05/09/2019 Ancillary Orders [facility] Pre-Registration [place] CALL TO MAKE APPOINTMENT ONLY [address] [place] [phone] Dave Valera MD [address] [place] [address] Demand ischemia (CMS/HCC) Social History Tobacco Use [...] PET/CT would be recommended for further workup. [id number] Narrative 05/10/2019 6:[address] CARDIAC [...] PET/CT would be recommended for further workup. [id number] ORDERABLES Final Resu lt documented in this encounter Visit Diagnoses Diagnosis Demand ischemia (CMS/HCC) Other acute and subacute form of ischemic heart disease Demand ischemia (CMS/HCC) Other acute and subacute form of ischemic heart disease documented in this encounter Care Teams Ross Lift Operator Relationship Specialty Start Date End Date Ulisses Bui MD [address] [phone] PCP - General Endocrinology 06/07/16 documented as of this encounter
--- OUTSIDE RECORDS SUMMARY | 2025-05-03 14:16 | XMS_ITS | Encounter Summary ---
Author Organization [facility] Address [address] [place] [address] Care Team Providers Care Clinical Dietetic Technician Name Role Phone Ulisses Bui MD Primary Care Provider [phone] Encounter Details Date Type Department Care Team (Late st Contact Info) Description 11/22/2018 Ancillary Orders [facility] Pre-Registration [place] CALL TO MAKE APPOINTMENT ONLY [address] [place] [address] Dave Valera MD [address] [place] [address] Demand ischemia (CMS/HCC); Acute kidney injury; DKA [...] uncontrolled documented in this encounter Care Teams Clinical Dietetic Technician Relationship Specialty Start Date End Date Ulisses Bui MD [address] [phone] PCP - General Endocrinology 06/07/16 documented as of this encounter
[2025-05-03] MEDS: metoclopramide 5 mg/mL SDV 2 mL 10 MG IVP (14:24)
[2025-05-03 14:32] LABS: Base Excess VBG -13.3 mmol/L (-3.0-3.0); Blood Gas Operator Identificat AMH; Blood Gas Sample Site Not specified; Blood Gas Sample Type Venous; HCO3 VBG 11.9 mmol/L (24-28); PCO2 VBG 26.2 mmHg (41-51); PO2 VBG 65.0 mmHg (25-40); Venous Blood Gas Hematocrit 45.4 % (42-52); pH VBG 7.27 (7.32-7.42)
[2025-05-03 14:33] VITALS: BP 123/73; PULSE 105; O2SAT 99
[2025-05-03 14:36] LABS: Hematocrit 41.9 % (37-53); Hemoglobin 13.90 g/dL (11.27-16.99); Mean Corpuscular HGB Conc 33.2 g/dL (30-55); Mean Corpuscular Hemoglobin 30.6 pg (27-33); Mean Corpuscular Volume 92.3 fl (82-101); Nucleated Red Blood Cells % 0 %; Platelet Count 231 10^3/cmm (157-399); Red Blood Count 4.54 10^6/uL (3.85-5.65); White Blood Count 13.43 10^3/uL (3.29-11.43)
[2025-05-03 14:45] LABS: Ketone (Acetest) Serum Positive (Negative)
[2025-05-03 14:54] VITALS: BP 123/63; PULSE 118; O2SAT 98
[2025-05-03 14:56] LABS: Alanine Aminotransferase 19 U/L (0-41); Albumin Level 4.3 g/dL (3.5-5.2); Alkaline Phosphatase 49 U/L (40-130); Anion Gap 31.1 (5-19); Aspartate Amino Transferase 17 U/L (0-40); Blood Urea Nitrogen 15 mg/dL (6-20); Calcium 9.0 mg/dL (8.5-10.5); Carbon Dioxide 11 mmol/L (22-29); Chloride 97 mmol/L (98-107); Creatinine Clr Calc Pharmacy 138.4471; Globulin 2.6 g/dL (1.3-4.6); Glucose 455 mg/dL (65-115); Osmolality Calculated 299 mOsm/kg (285-295); Potassium 5.1 mmol/L (3.5-5.1); Sodium 134 mmol/L (136-145); Total Protein 6.9 g/dL (6.6-8.7)
[2025-05-03 15:08] LABS: Add Urine Microscopic? NO
[2025-05-03 15:11] LABS: Lactic Sepsis W/Reflex 2.9 mmol/L (0.5-2.2)
[2025-05-03 15:12] LABS: Glucose Urine UA 3+ (Normal); Nitrate Urine Negative (Negative)
[2025-05-03 15:14] LABS: Reflex Lactate Order REFLEX LACTIC ORDERD
[2025-05-03 15:19] LABS: PCP Screen Urine Negative (Negative)
[2025-05-03 15:21] LABS: Specific Gravity, Urine 1.031 (1.005-1.030)
[2025-05-03 15:22] LABS: Charge for UA Resulting for Rev
[2025-05-03] MEDS: INSULIN REGULAR IN 0.9 % NACL 100 UNIT/100 ML BAG 6 UNIT IV (15:41)
[2025-05-03 15:45] VITALS: BP 113/59; PULSE 109; O2SAT 97
[2025-05-03 16:00] VITALS: BP 111/47; PULSE 106; RESP 16; O2SAT 96
--- NOTE | 2025-05-03 16:01 | PC.NURSE ---
PT mother called for update, update given.
[2025-05-03] MEDS: ondansetron 2 mg/ML SDV 2 mL 4 MG IVP (16:06)
[2025-05-03 16:56] VITALS: BP 111/57; PULSE 104; O2SAT 98
--- NOTE | 2025-05-03 17:01 | PM.HP ---
Providers/Chief Complaint Admitting Physician: Misty Gallardo MD Primary Care Provider: MARGE Castellano Chief Complaint: hyperglycemia, N/V History of Present Illness Salvatore Ott is a 30 year old male type 1 diabetes mellitus presented to the hospital with DKA today. He states his insulin pump is working okay however his glucose sensors are not available at this time since he ran out. He follows with Dr. Metz and says he saw her few months ago. Does not know his insulin to carb ratio. Unable to provide much history at this time. He is in distress as he is having nausea. Currently on an insulin drip by the ER. Denies any chest pain or shortness of breath. Denies recent illness. No sick contacts. He states he was in the ER last night as well however was sent home. Medications/Allergies Home Medications ?Medication ?Instructions ?Recorded ?Confirmed ?Last Taken ?Type blood sugar diagnostic #100 ea 03/20/21 05/04/25 Unknown Rx blood sugar diagnostic (Blood #100 ea 03/20/21 05/04/25 Unknown Rx Glucose Test strips) blood-glucose meter (Blood Glucose #1 ea 03/20/21 05/04/25 Unknown Rx Monitoring kit) lancets #200 ea 05/17/21 05/04/25 Unknown Rx strips #200 ea 05/17/21 05/04/25 Unknown Rx lancets #200 ea 06/18/21 05/04/25 Unknown Rx strips #1 ea 06/18/21 05/04/25 Unknown Rx blood-glucose sensor (Dexcom G6 #9 ea 10/18/22 05/04/25 Unknown Rx Sensor device) blood-glucose transmitter (Dexcom #3 ea 10/18/22 05/04/25 Unknown Rx G6 Transmitter device) blood-glucose,land appraiser,cont #1 ea 10/18/22 05/04/25 Unknown Rx (Dexcom G6 Word Processor Technician) insulin pump cartridge,automated #1 10/18/22 05/04/25 Unknown Rx dose,BT with controller subcutaneous (Omnipod 5 G6 Intro Kit (Gen 5) subcutaneous cartridge with controller) insulin pump cart,auto,BT,G6/7 #15 ea 03/14/25 05/04/25 Unknown Rx (Omnipod 5 G6-G7 Pods (Gen 5) subcutaneous cartridge) insulin lispro 100 unit/mL See Rx Instructions .Route 03/20/25 05/04/25 05/03/25 Rx subcutaneous solution .COMPLEX #130 mL pen needle, diabetic 32 gauge x #100 ea 03/20/25 05/04/25 Unknown Rx / (Comfort EZ Pen [place]) insulin syringes (disposable) 1 mL #500 ea 04/01/25 05/04/25 Unknown Rx insulin glargine 100 unit/mL (3 See Rx Instructions .Route 04/26/25 05/04/25 05/03/25 Rx mL) subcutaneous pen (Lantus .COMPLEX #45 mL Solostar U-100 Insulin) ondansetron 4 mg disintegrating 4 mg PO Q8H PRN nausea and 05/02/25 05/04/25 05/03/25 Rx tablet vomiting 4 days #20 tabs Allergies Allergy/AdvReac Type Severity Reaction Status Date / Time promethazine (From Phenergan) Allergy Unknown Verified 05/03/25 14:14 PFSH Acute PFSH: Medical History Abdominal pain High anion gap metabolic acidosis DKA (diabetic ketoacidosis) Diabetic keto-acidosis Hyperglycemia Nausea & vomiting Noncompliance with diabetes treatment Methamphetamine abuse DKA (diabetic ketoacidoses) History of pancreatitis Long-term insulin use Hypoglycemia due to insulin Uncontrolled type 1 diabetes mellitus Pancreatitis Marijuana use GERD (gastroesophageal reflux disease) Type 1 diabetes With recurrent admissions for DKA, severe Surgical History No pertinent past surgical history Family History Other Diabetes Social History Smoking and tobacco/nicotine status: never used tobacco/nicotine Alcohol intake: never Substance/Drug Use: former Date of last use: Marijuana abuse Lives independently: Yes Household members: family Marital status: Single Current occupational status: disabled Vitals/I&O/Wt Last Vital Signs Temp 98.4 F 05/03/25 14:07 Pulse 104 H 05/03/25 16:56 Resp 16 05/03/25 16:00 BP 111/57 05/03/25 16:56 Pulse Ox 98 05/03/25 16:56 O2 Del Method Room Air 05/03/25 16:00 05/03/25 05/03/25 05/03/25 06:59 14:59 22:59 Intake Total 466.2 / 466.2 1007.8 / 1474.0 Balance 466.2 / 466.2 1007.8 / 1474.0 Weight last 48 hrs Weight 63.503 kg Physical Exam Narrative: General: Alert oriented x3, patient seen laying in bed appears to be in distress as he is nauseous. Appears dehydrated HEENT: Normocephalic, atraumatic, EOMI, room air. Cardio: Regular rate rhythm, normal S1-S2, Respiratory: Good bilateral air entry, no wheezes no rhonchi appreciated GI: Abdomen soft, mild epigastric tenderness present, bowel sounds + Extremities: No edema bilateral lower extremity Data 05/03/25 14:27 05/03/25 17:10 Micro: Microbiology 05/03/25 15:48 Blood Culture - Preliminary Blood SPECIMEN COLLECTED 05/03/25 15:46 Blood Culture - Preliminary Blood SPECIMEN COLLECTED A&P Assessment and plan 1. Tachycardia: 2. Hyperlipemia, mixed: 3. DKA (diabetic ketoacidosis): 4. Nausea & vomitin. Type 1 diabetes: Plan: #DKA #Type 1 diabetes mellitus #Missing glucose sensor/insulin pump malfunction ? Patient in DKA most likely secondary to not getting adequate insulin to the pump since his glucose sensor is not present. He states he will be getting a refill. He presents a very nonspecific history. Does not know his insulin to carb ratio or how much insulin he takes at home. Cannot tell me his glargine dosing if he takes that. Provides very limited history. Patient does have positive serum ketones and has a history of meth use. ? We will admit him for DKA protocol. ? Continue insulin drip and add dextrose to fluids once glucose less than 250 ? BMP every 4 hours ? When anion gap less than 14 we will bridge to Lantus. ? I would recommend to discharge patient home with Lantus as he does not have glucose sensors and we would need his residential service technician to review his insulin pump settings prior to discharge. ? Will refer to Dr. Metz at discharge. ? N.p.o. at this time. ? Continue on IV fluids normal saline 150 cc/h. ? Replete electrolytes per protocol. ? Admit to ICU ? Patient's pH is 7.27. No indication of bicarbonate drip at this time. Continue IV fluids and insulin drip. Full code DVT prophylaxis: Heparin SQ twice daily. PDMP PDMP Reviewed: Not Reviewed Attestations Medical Necessity Statement*: DKA Greater than 2 midnight stay for management of DKA. Diagnoses Tachycardia R00.0 Hyperlipemia, mixed E78.2 DKA (diabetic ketoacidosis) E11.10 Nausea & vomiting R11.2 Type 1 diabetes E10.9
[2025-05-03 17:35] LABS: Anion Gap 24.4 (5-19); Blood Urea Nitrogen 17 mg/dL (6-20); Calcium 7.9 mg/dL (8.5-10.5); Carbon Dioxide 11 mmol/L (22-29); Chloride 103 mmol/L (98-107); Creatinine Clr Calc Pharmacy 121.1412; Glucose 355 mg/dL (65-115); Osmolality Calculated 294 mOsm/kg (285-295); Potassium 4.4 mmol/L (3.5-5.1); Sodium 134 mmol/L (136-145)
[2025-05-03 17:46] LABS: Procalcitonin 0.69 ng/mL (0-0.5); Thyroid Stimulating Hormone 0.90 uIU/mL (0.27-4.20)
[2025-05-03 18:31] LABS: Lactic Acid level (Lactate) 3.6 mmol/L (0.5-2.2)
--- NOTE | 2025-05-03 20:10 | PC.NURSE ---
Patient stated he would like to leave AMA, Dr. Ramos in to see patient, risk of AMA discussed with patient and current medical condition discussed. Patient alert and oriented and verbalized understanding and both IVs removed at this time. Patient left unit at 1948 via wheelchair to ER to wait for ride.
--- NOTE | 2025-05-04 08:00 | PM.DCS ---
Discharge Providers Date of Admission: 05/03/25 16:19 Date of Discharge: May 03, 2025 Attending Provider at Admission: Misty Gallardo MD Attending Provider at Discharge: Misty Gallardo MD Primary Care Provider: MARGE Castellano Diagnoses at Discharge Discharge Diagnosis 1. Tachycardia: 2. Hyperlipemia, mixed: 3. DKA (diabetic ketoacidosis): 4. Nausea & vomitin. Type 1 diabetes mellitus without complication: Reason for Visit Reason for Visit: hyperglycemia, N/V Hospital Course Hospital Course Patient was admitted 05/03 and left AMA on the night of 05/03. I was not present at the time of discharge. Discharge Data Studies Completed and Pending Completed Studies During Hospitalization Category Date Time Status XR chest 1V portable [id number] Stat Exams 05/03/25 14:12 Completed Pending at discharge Category Date Time Status Blood Culture Stat Lab 05/03/25 15:48 Results Radiology Impressions Chest X-Ray 05/03/25 14:12 IMPRESSION: 1. Normal chest. Laboratory Results WBC 13.43 10^3/uL (3.29-11.43) H 05/03/25 14:27 RBC 4.54 10^6/uL (3.85-5.65) 05/03/25 14:27 Hgb 13.90 g/dL (11.27-16.99) 05/03/25 14:27 Hct 41.9 % (37-53) 05/03/25 14:27 MCV 92.3 fl (82-101) 05/03/25 14:27 MCH 30.6 pg (27-33) 05/03/25 14:27 MCHC 33.2 g/dL (30-55) 05/03/25 14:27 RDW 12.6 % (12.1-15.1) 05/03/25 14:27 Plt Count 231 10^3/cmm (157-399) 05/03/25 14:27 MPV 10.1 fL (7.4-10.4) 05/03/25 14:27 Neut % (Auto) 91.3 % 05/03/25 14:27 Lymph % (Auto) 5.2 % 05/03/25 14:27 [place] % (Auto) 2.8 % 05/03/25 14:27 Eos % (Auto) 0.0 % 05/03/25 14: Baso % (Auto) 0.2 % 05/03/25 14: Neut # (Auto) 12.26 10^3/uL (1.8-7.7) H 05/03/25 14: Lymph # (Auto) 0.7 10^3/uL (0.8-4.8) L 05/03/25 14: [place] # (Auto) 0.4 10^3/uL (0.2-0.9) 05/03/25 14: Eos # (Auto) 0.0 10^3/uL (0.0-0.8) 05/03/25 14: Baso # (Auto) 0.0 10^3/uL (0.0-0.1) 05/03/25 14: Nucleated RBC % (auto) 0 % 05/03/25 14: Nucleated RBCs # 0.0 /100WBC 05/03/25 14: Specimen Type Venous 05/03/25 14:25 Sample Site Not specified 05/03/25 14:25 Hasmukh Test N/a 05/03/25 14:25 VBG pH 7.27 (7.32-7.42) L 05/03/25 14:25 VBG pCO2 26.2 mmHg (41-51) L 05/03/25 14: VBG pO2 65.0 mmHg (25-40) H 05/03/25 14:25 VBG HCO3 11.9 mmol/L (24-28) L 05/03/25 14:25 VBG Base Excess -13.3 mmol/L (-3.0-3.0) L 05/03/25 14:25 VBG Hematocrit 45.4 % (42-52) 05/03/25 14:25 O2 Delivery Device Room air 05/03/25 14:25 FiO2 21.0 % 05/03/25 14:25 Manuscript Reader ID Amh 05/03/25 14:25 Sodium 134 mmol/L (136-145) L 05/03/25 17:10 Potassium 4.4 mmol/L (3.5-5.1) 05/03/25 17:10 Chloride 103 mmol/L (98-107) 05/03/25 17:10 Carbon Dioxide 11 mmol/L (22-29) L 05/03/25 17:10 Anion Gap 24.4 (5-19) H 05/03/25 17:10 BUN 17 mg/dL (6-20) 05/03/25 17:10 Creatinine 0.8 mg/dL (0.7-1.2) 05/03/25 17:10 GFR Calculation 115.1 mL/min (90-130) 05/03/25 17:10 Glucose 355 mg/dL (65-115) H 05/03/25 17:10 POC Glucose 228 mg/dL (70-110) H 05/03/25 19:11 Calculated Osmolality 294 mOsm/kg (285-295) 05/03/25 17:10 Lactic Acid 2.9 mmol/L (0.5-2.2) H 05/03/25 14:27 Lactic Acid (Sepsis) 3.6 mmol/L (0.5-2.2) H 05/03/25 17:40 Calcium 7.9 mg/dL (8.5-10.5) L 05/03/25 17:10 Total Bilirubin 1.0 mg/dL (0.15-1.2) 05/03/25 14:27 AST 17 U/L (0-40) 05/03/25 14:27 ALT 19 U/L (0-41) 05/03/25 14:27 Alkaline Phosphatase 49 U/L (40-130) 05/03/25 14:27 Total Protein 6.9 g/dL (6.6-8.7) 05/03/25 14:27 Albumin 4.3 g/dL (3.5-5.2) 05/03/25 14:27 Globulin 2.6 g/dL (1.3-4.6) 05/03/25 14:27 Procalcitonin 0.69 ng/mL (0-0.5) H 05/03/25 17:10 TSH 0.90 uIU/mL (0.27-4.20) 05/03/25 17:10 Urine Color Yellow (Yellow) 05/03/25 14:30 Urine Appearance Clear (CLEAR) 05/03/25 14:30 Urine pH 5.5 (5-7) 05/03/25 14:30 Ur Specific [place] 1.031 (1.005-1.030) H 05/03/25 14:30 Urine Protein Negative (Negative) 05/03/25 14:30 Urine Glucose (UA) 3+ (Normal) H 05/03/25 14:30 Urine Ketones 4+ (Negative) 05/03/25 14:30 Urine Blood Negative (Negative) 05/03/25 14:30 Urine Nitrate Negative (Negative) 05/03/25 14:30 Urine Bilirubin Negative (Negative) 05/03/25 14:30 Urine Urobilinogen 0.2 mg/dL (Negative) 05/03/25 14:30 Ur Leukocyte Esterase Negative (Negative) 05/03/25 14:30 Amorphous Sediment Not Reportable 05/03/25 14:30 Urine Opiates Screen Negative ng/mL (Negative) 05/03/25 14:30 Ur Barbiturates Screen Negative ng/mL (Negative) 05/03/25 14:30 Ur Phencyclidine Scrn Negative ng/mL (Negative) 05/03/25 14:30 Ur Amphetamines Screen Negative ng/mL (Negative) 05/03/25 14:30 U Benzodiazepines Scrn Negative ng/mL (Negative) 05/03/25 14:30 Urine Cocaine Screen Negative ng/mL (Negative) 05/03/25 14:30 U Marijuana (THC) Screen Positive ng/mL (Negative) H 05/03/25 14:30 Serum Ketones Positive (Negative) H 05/03/25 14:27 Vitals Last Vital Signs Temp 98.4 F 05/03/25 14:07 Pulse 104 H 05/03/25 16:56 Resp 16 05/03/25 16:00 BP 111/57 05/03/25 16:56 Pulse Ox 98 05/03/25 16:56 O2 Del Method Room Air 05/03/25 17:09 Discharge Plan Discharge Patient Disposition: Left Against Medical Advice Condition: Stable Prescriptions: No Action insulin lispro 100 unit/mL solution See Rx Instructions .ROUTE .COMPLEX Qty: 130 0RF Dose Instruction: USE 150 UNITS VIA INSULIN PUMP DAILY Rx Instructions: USE 150 UNITS VIA INSULIN PUMP DAILY (DME) pen needle, diabetic [Comfort EZ Pen [place]] 32 gauge x 3/16 needle See Rx Instructions .Route Qty: 100 0RF Rx Instructions: As directed (DME) Omnipod 5 G6 Intro Kit (Gen 5) Cartridge See Rx Instructions .ROUTE .MEDSUPPLY Qty: 1 0RF Rx Instructions: As directed (DME) Dexcom G6 Water Quality Technician Misc See Rx Instructions .ROUTE .MEDSUPPLY Qty: 1 0RF Rx Instructions: takes blood sugar (DME) Dexcom G6 Sensor Device See Rx Instructions .ROUTE .MEDSUPPLY Qty: 9 3RF Rx Instructions: Change every 10 days (DME) Dexcom G6 Transmitter Device See Rx Instructions .ROUTE .MEDSUPPLY Qty: 3 3RF Rx Instructions: change every 90 days (DME) strips See Rx Instructions .Route .MEDSUPPLY Qty: 1 3RF Rx Instructions: Check blood sugars 3 times daily, with meals, #200, 3 refills (DME) lancets Misc See Rx Instructions .Route Qty: 200 3RF Rx Instructions: check BS, TID with meals (DME) Omnipod 5 G6-G7 Pods (Gen 5) Cartridge See Rx Instructions .ROUTE .COMPLEX Qty: 15 0RF Dose Instruction: CHANGE POD EVERY 3 DAYS NEEDS APPOINTMENT FOR FURTHER REFILLS Rx Instructions: CHANGE POD EVERY 3 DAYS NEEDS APPOINTMENT FOR FURTHER REFILLS (DME) insulin syringes (disposable) 1 mL syringe See Rx Instructions .ROUTE .MEDSUPPLY Qty: 500 3RF Rx Instructions: use syringe to inject insulin six times a day insulin glargine [Lantus Solostar U-100 Insulin] 100 unit/mL (3 mL) insulin pen See Rx Instructions .ROUTE .COMPLEX Qty: 45 0RF Dose Instruction: INJECT 35 UNITS SUBCUTANEOUSLY ONCE DAILY Rx Instructions: INJECT 35 UNITS SUBCUTANEOUSLY ONCE DAILY (DME) blood sugar diagnostic Strip See Rx Instructions .Route Qty: 100 0RF Rx Instructions: As directed (DME) Blood Glucose Test Strip See Rx Instructions .Route Qty: 100 0RF Rx Instructions: As directed (DME) blood-glucose meter [Blood Glucose Monitoring] Kit See Rx Instructions .Route Qty: 1 0RF Rx Instructions: As directed (DME) strips See Rx Instructions .Route .MEDSUPPLY Qty: 200 3RF Rx Instructions: Check blood sugars 3 times daily, before meals (DME) lancets See Rx Instructions .Route .MEDSUPPLY Qty: 200 1RF Rx Instructions: Check blood sugars 3 times daily, before meals ondansetron 4 mg tablet,disintegrating 4 mg PO Q8H PRN (Reason: nausea and vomiting) 4 Days Qty: 20 0RF Referrals: Tacho,Earlene, GRAB HOOKER-C [Primary Care Provider, Family Practice] Discharge Attestations Time Spent in Discharge Care*: other Status at Discharge: Cognitive status at discharge: cognitively intact, Behavioral status at discharge: cooperative, Quality Metrics Clinical Quality Measures [ No reported AMI, CVA or VTE this stay] Coding Level of Care Code Acute Code for Chg Fwd Diagnoses Tachycardia R00.0 Hyperlipemia, mixed E78.2 DKA (diabetic ketoacidosis) E10.10 Diabetes mellitus complication detail: without coma Diabetes mellitus type: type 1 Nausea & vomiting R11.2 Type 1 diabetes mellitus without complication E10.9 Diabetes mellitus complication status: without complication
== END 2025-05-03 19:48 | disposition left against medical advice (07) | DRG 639 ==
LOC: ER 15:41 → ICU 16:21
PROVIDERS: Admitting Provider Internal Medicine; Emergency Provider Emergency Medicine; PCP Nurse Practitioner Family; Visit Provider Internal Medicine
DX: E10.10 Type 1 diabetes mellitus with ketoacidosis without coma (principal); R00.0 Tachycardia, unspecified; E78.2 Mixed hyperlipidemia; Z53.29 Procedure and treatment not carried out because of patient's decision for other reasons; F12.90 Cannabis use, unspecified, uncomplicated; K21.9 Gastro-esophageal reflux disease without esophagitis; Z79.4 Long term (current) use of insulin
CPT/HCPCS: 36415; 36416; 71045; 80048; 80053; 80306; 81003; 82009; 82803; 82962; 83605; 84145; 84443; 85025; 87040; 96365; 96366; 96367; 96375; 99285; J2405; J2765; J7030; J9999

== ENCOUNTER 2025-05-03 22:14 | Inpatient (IN) | payer OTHER, MEDICAID, SELFPAY ==
[2025-05-03 22:24] VITALS: BP 105/65; PULSE 115; RESP 18; TEMP 36.7; O2SAT 100; BMI 24.6
--- OUTSIDE RECORDS SUMMARY | 2025-05-03 22:24 | XMS_ITS | Encounter Summary ---
Author Organization [facility] Address [address] [place] [address] Care Team Providers Care Other Sports Official Name Role Phone Ulisses Bui MD Primary Care Provider [phone] Encounter Details Date Type Department Care Team (Late st Contact Info) Description 11/22/2018 Ancillary Orders [facility] Pre-Registration [place] CALL TO MAKE APPOINTMENT ONLY [address] [place] [address] Dave Valera MD [address] [place] [address] Demand ischemia (CMS/HCC); Acute kidney injury; DKA [...] uncontrolled documented in this encounter Care Teams Other Sports Official Relationship Specialty Start Date End Date Ulisses Bui MD [address] [phone] PCP - General Endocrinology 06/07/16 documented as of this encounter
--- OUTSIDE RECORDS SUMMARY | 2025-05-03 22:24 | XMS_ITS | Encounter Summary ---
Author Organization [facility] Address [address] [place] [address] Care Team Providers Care Product Marketing Programs Manager Name Role Phone Ulisses Bui MD Primary Care Provider [phone] Reason for Referral * CT Scan (Routine) - Closed Specialty Diagnoses / Procedures Referred By Contmery t Referred To Contact Diagnoses Demand ischemia (CMS/HCC) Procedures CT CARDIAC CHEST INTERPRETATION Dave Valera MD [address] [place] [address] Phone: tel: Referral ID Status Reason Start Date Expiration Date Visits Re quested Visits Authorized [id number] Closed 05/09/2019 06/08/2020 1 1 Encounter Details Date Type Department Care Team (Late st Contact Info) Description 05/09/2019 Ancillary Orders [facility] Pre-Registration [place] CALL TO MAKE APPOINTMENT ONLY [address] [place] [phone] Dave Valera MD [address] [place] [address] Demand ischemia (CMS/HCC) Social History Tobacco Use [...] PET/CT would be recommended for further workup. [id number] Narrative 05/10/2019 6:[address] CARDIAC [...] PET/CT would be recommended for further workup. [id number] ORDERABLES Final Resu lt documented in this encounter Visit Diagnoses Diagnosis Demand ischemia (CMS/HCC) Other acute and subacute form of ischemic heart disease Demand ischemia (CMS/HCC) Other acute and subacute form of ischemic heart disease documented in this encounter Care Teams Product Marketing Programs Manager Relationship Specialty Start Date End Date Ulisses Bui MD [address] [phone] PCP - General Endocrinology 06/07/16 documented as of this encounter
--- OUTSIDE RECORDS SUMMARY | 2025-05-03 22:24 | XMS_ITS | Encounter Summary ---
Author Organization [facility] Address [address] [place] [address] Care Team Providers Care Retail General Manager Name Role Phone Ulisses Bui MD Primary Care Provider [phone] Reason for Referral * CT Scan (Routine) - Closed Specialty Diagnoses / Procedures Referred By Melodie t Referred To Contact Radiology Diagnoses Demand ischemia (CMS/HCC) Procedures [facility] Dave Valera MD [address] [place] [address] Phone: tel: [facility] CT Scan [address] [place] [address] Phone: tel: fax: Referral ID Status Reason Start Date Expiration Date V isits Requested Visits Authorized [id number] Closed [facility] TO SCHEDULE ([facility]) 05/09/2019 06/08/2019 1 1 Encounter Details Date Type Department Care Team (Late st Contact Info) Description 04/12/2019 Ancillary Orders [facility] Pre-Registration [place] CALL TO MAKE APPOINTMENT ONLY [address] [place] [address] Dave Valera MD [address] [place] [address] Demand ischemia (CMS/HCC) Social History Tobacco Use [...] comparison. . Indication: This is a 24 [id number] Male with chest discomfort. Concerns for obstructive coronary artery disease.. The study is performed in an attempt to avoid an invasive procedure. Technique: Spiral acquisition during intravenous contrast administration using a 64-slice GE CT scan. Multi-planar 3-D volume-rendering reconstruction was performed using a [employer] work station. Consecutive thin slices (< 1mm) [...] comparison. . Indication: This is a 24 fqiot-rebj-xbs Male with chest discomfort. Concerns for obstructive coronary artery disease.. The study is performed in an attempt to avoid an invasive procedure. Technique: Spiral acquisition during intravenous contrast administration using a 64-slice GE CT scan. Multi-planar 3-D volume-rendering reconstruction was performed using a [employer] work station. Consecutive thin slices (< 1mm) [...] disease documented in this encounter Care Teams Retail General Manager Relationship Specialty Start Date End Date Ulisses Bui MD [address] [phone] PCP - General Endocrinology 06/07/16 documented as of this encounter
--- OUTSIDE RECORDS SUMMARY | 2025-05-03 22:24 | XMS_ITS | Clinical Summary ---
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
--- OUTSIDE RECORDS SUMMARY | 2025-05-03 22:24 | XMS_ITS | Clinical Summary ---
Author Organization [facility] Address [address] [address] Phone Care Team Providers Care It Quality Analyst Name Role Phone Ulisses Bui MD Primary [...] 2024 INFLUENZA VACCINE (#1) 2025 Insurance MEDICAID [place] MEDICARE PART A AND B Care Teams It Quality Analyst Relationship Specialty Start Date End Date Ulisses Bui MD [address] [facility] [address] [phone] PCP - General Endocrinology 06/07/16
[2025-05-04] VITALS (7 sets, daily range): BP systolic 116–134; BP diastolic 67–80; PULSE 94–121; RESP 20–24; O2SAT 99–100
[2025-05-04 00:36] LABS: Alanine Aminotransferase 25 U/L (0-41); Albumin Level 4.4 g/dL (3.5-5.2); Alkaline Phosphatase 49 U/L (40-130); Anion Gap 31.0 (5-19); Aspartate Amino Transferase 22 U/L (0-40); Blood Urea Nitrogen 14 mg/dL (6-20); Calcium 8.6 mg/dL (8.5-10.5); Chloride 97 mmol/L (98-107); Creatinine Clr Calc Pharmacy 141.6729; Globulin 2.5 g/dL (1.3-4.6); Glucose 415 mg/dL (65-115); Osmolality Calculated 292 mOsm/kg (285-295); Potassium 5.0 mmol/L (3.5-5.1); Sodium 132 mmol/L (136-145); Total Protein 6.9 g/dL (6.6-8.7)
[2025-05-04 01:14] LABS: Hematocrit 41.2 % (37-53); Hemoglobin 13.50 g/dL (11.27-16.99); Mean Corpuscular HGB Conc 32.8 g/dL (30-55); Mean Corpuscular Hemoglobin 31.0 pg (27-33); Mean Corpuscular Volume 94.5 fl (82-101); Nucleated Red Blood Cells % 0 %; Platelet Count 222 10^3/cmm (157-399); Red Blood Count 4.36 10^6/uL (3.85-5.65); White Blood Count 14.70 10^3/uL (3.29-11.43)
[2025-05-04 01:22] LABS: Carbon Dioxide 9 mmol/L (22-29)
--- NOTE | 2025-05-04 01:58 | XRR_ITS ---
PROCEDURE INFORMATION: Exam: XR Chest Exam date and time: 05/04/2025 2:13 AM Age: 30 years old Clinical indication: Persistent vomiting. In dka. ; Additional info: Dka, vomiting TECHNIQUE: Imaging protocol: Radiologic exam of the chest. Views: 1 view. COMPARISON: CR XR chest 1V portable [id number] 05/03/2025 2:48 PM FINDINGS: Lungs: Unremarkable. No consolidation. Pleural spaces: Unremarkable. No pleural effusion. No pneumothorax. Heart/Mediastinum: Unremarkable. No cardiomegaly. Bones/joints: Unremarkable. XR/XR chest 1V portable [id number] IMPRESSION: No acute findings.
--- NOTE | 2025-05-04 01:59 | ECG_ITS ---
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 Measurements Intervals [place] Rate: 102 P: 74 NH: 122 QRS: 73 QRSD: 85 T: 50 QT: 331 QTc: 432 Interpretive Statements SINUS TACHYCARDIA POSSIBLE RIGHT VENTRICULAR CONDUCTION DELAY [RSR (QR) IN V1/V2] ABNORMAL RHYTHM ECG Compared to ECG 05/02/2025 18:20:10 NO CHANGE Electronically Signed On 05-05-2025 23:08:10 CDT by Nash Hayden M.D. [email or web address]
--- NOTE | 2025-05-04 02:01 | ED_ITS ---
HPI - Recheck/Abnormal Lab/Rx 2 General: Chief Complaint: Recheck/Abnormal Lab/Rx Stated Complaint: High Blood Sugar Time Seen by Provider: 05/04/25 01:48 History of Present Illness: Patient is a 30-year-old male with type 1 diabetes who presents with multiple episodes of vomiting today. He reports leaving the hospital against medical advice earlier and states that his condition worsened after discharge, acknowledging this was a 'dumb mistake.' He has not administered any insulin since leaving the hospital, resulting in hyperglycemia with a glucose reading of 348 mg/dL. Patient reports experiencing not fever & denies diarrhea. He appears to have returned for care due to worsening symptoms. Related Data Previous Rx's ?Medication ?Instructions ?Recorded blood sugar diagnostic #100 ea 03/20/21 blood sugar diagnostic (Blood #100 ea 03/20/21 Glucose Test strips) blood-glucose meter (Blood Glucose #1 ea 03/20/21 Monitoring kit) lancets #200 ea 05/17/21 strips #200 ea 05/17/21 lancets #200 ea 06/18/21 strips #1 ea 06/18/21 blood-glucose sensor (Dexcom G6 #9 ea 10/18/22 Sensor device) blood-glucose transmitter (Dexcom #3 ea 10/18/22 G6 Transmitter device) blood-glucose,loin trimmer,cont #1 ea 10/18/22 (Dexcom G6 Applied Researcher) insulin pump cartridge,automated #1 ea 10/18/22 dose,BT with controller subcutaneous (Omnipod 5 G6 Intro Kit (Gen 5) subcutaneous cartridge with controller) insulin pump cart,auto,BT,G6/7 #15 ea 03/14/25 (Omnipod 5 G6-G7 Pods (Gen 5) subcutaneous cartridge) insulin lispro 100 unit/mL See Rx Instructions .Route 03/20/25 subcutaneous solution .COMPLEX #130 mL pen needle, diabetic 32 gauge x #100 ea 03/20/2511/18 (Comfort EZ Pen [place]) insulin syringes (disposable) 1 mL #500 ea 04/01/25 insulin glargine 100 unit/mL (3 See Rx Instructions .R oute 04/26/25 mL) subcutaneous pen (Lantus .COMPLEX #45 mL Solostar U-100 Insulin) ondansetron 4 mg disintegrating 4 mg PO Q8H PRN nausea and 05/02/25 tablet vomiting 4 days #20 tabs Allergies Allergy/AdvReac Type Severity Reaction Status Date / Time promethazine (From Phenergan) Allergy Unknown Verified 05/03/25 14:14 PFSH ED 2 PFSH: Medical History Abdominal pain High anion gap metabolic acidosis DKA (diabetic ketoacidosis) Diabetic keto-acidosis Hyperglycemia Nausea & vomiting Noncompliance with diabetes treatment Methamphetamine abuse DKA (diabetic ketoacidoses) History of pancreatitis Long-term insulin use Hypoglycemia due to insulin Uncontrolled type 1 diabetes mellitus Pancreatitis Marijuana use GERD (gastroesophageal reflux disease) Type 1 diabetes With recurrent admissions for DKA, severe Surgical History No pertinent past surgical history Family History Other Diabetes Social History Smoking and tobacco/nicotine status: never used tobacco/nicotine Alcohol intake: never Substance/Drug Use: former Date of last use: Marijuana abuse Lives independently: Yes Household members: family Marital status: Single Current occupational status: disabled Physical Exam 2 Const: GENERAL APPEARANCE: cooperative and ill appearing NUTRITIONAL APPEARANCE: thin ORIENTATION/CONSCIOUSNESS: Yes awake, Yes oriented to person, Yes oriented to place and Yes oriented to time HENMT: COMMON NORMALS: normocephalic, atraumatic and Normal external nose present HEAD & SCALP: normocephalic and atraumatic FACE & SINUS: normal facial exam and face symmetric NOSE: Normal external nose present Eye: COMMON NORMALS: Equal, round and reactive pupils present and EOMs intact bilaterally PUPIL: Yes Equal, round and reactive pupils present Neck/C-Spine: GENERAL: Yes trachea midline Chest: CHEST: Yes Symmetrical chest wall rise Resp: COMMON NORMALS: normal respiratory effort, No retractions, No use of accessory muscles and clear to auscultation bilaterally AUSCULTATION: clear to auscultation bilaterally Cardio: COMMON NORMALS: regular rhythm RATE: tachycardic RHYTHM: regular rhythm GI: COMMON NORMALS: Normal to inspection, nondistended, normoactive bowel sounds present Extremity: COMMON NORMALS: no pedal edema Neuro: LISA COMA SCALE: document GCS findings [place] coma scale eye opening: Spontaneous [place] coma scale verbal response: Orientated Lisa coma scale motor response: Obey commands [place] coma scale total score: 15 S ENSORIUM/ORIENTATION: Yes oriented to person, Yes oriented to place and Yes oriented to time SENSORY EXAM: Yes extremities (intact) Psych: COMMON NORMALS: speech normal SPEECH: Yes normal speech Course 2 Vital Signs: Vital signs: Vital Signs Temperature 98.0 F 05/03/25 22:24 Pulse Rate 113 H 05/04/25 09:00 Respiratory Rate 22 H 05/04/25 09:00 Blood Pressure 131/69 05/04/25 09:00 Pulse Oximetry 100 05/04/25 09:00 Oxygen Delivery Me thod Room Air 05/04/25 04:55 MDM - Recheck/Abnormal Lab/Rx Medical Decision Making Patient presents with multiple episodes of vomiting after leaving AMA several hours ago from the ICU where he was admitted for DKA. His glucose was 415. Initial pH 7.20. pCO2 of 21. His serum bicarbonate is 9. Chest x-ray is negative. He is given 2 L normal saline in the ER, started on insulin drip. He is encouraged not to leave AMA at this point. Hospitalist has been notified. She we will see the patient in the ICU. Lab Data 05/04/25 03:23 05/04/25 07:00 Radiology Impressions Chest X-Ray 05/04/25 01:58 IMPRESSION: No acute findings. Laboratory Results WBC 14.70 10^3/uL (3.29-11.43) H 05/03/25 00:00 RBC 4.36 10^6/uL (3.85-5.65) 05/03/25 00:00 Hgb 13.50 g/dL (11.27-16.99) 05/03/25 00:00 Hct 41.2 % (37-53) 05/03/25 00:00 MCV 94.5 fl (82-101) 05/03/25 00:00 MCH 31.0 pg (27-33) 05/03/25 00:00 MCHC 32.8 g/dL (30-55) D 05/03/25 00:00 RDW 12.8 % (12.1-15.1) 05/03/25 00:00 Plt Count 222 10^3/cmm (157-399) 05/03/25 00:00 MPV 10.3 fL (7.4-10.4) 05/03/25 00:00 Neut % (Auto) 92.4 % 05/03/25 00:00 Lymph % (Auto) 3.5 % 05/03/25 00:00 [place] % (Auto) 3.5 % 05/03/25 00:00 Eos % (Auto) 0.0 % 05/03/25 00:00 Baso % (Auto) 0.1 % 05/03/25 00:00 Neut # (Auto) 13.56 10^3/uL (1.8-7.7) H 05/03/25 00:00 Lymph # (Auto) 0.5 10^3/uL (0.8-4.8) L 05/03/25 00:00 [place] # (Auto) 0.5 10^3/uL (0.2-0.9) 05/03/25 00:00 Eos # (Auto) 0.0 10^3/uL (0.0-0.8) 05/03/25 00:00 Baso # (Auto) 0.0 10^3/uL (0.0-0.1) 05/03/25 00:00 Nucleated RBC % (auto) 0 % 05/03/25 00:00 Nucleated RBCs # 0.0 /100WBC 05/03/25 00:00 Specimen Type Arterial 05/04/25 02:12 Sample Site Radial, right 05/04/25 02:12 ABG pH 7.20 (7.35-7.45) L 05/04/25 02:12 ABG pCO2 20.7 mmHg (35-45) L 05/04/25 02:12 ABG pO2 115.0 mmHg (80.0-100.0) H 05/04/25 02:12 ABG PO2/FiO2 Ratio 547 05/04/25 02:12 ABG HCO3 8.2 mmol/L (22-26) L 05/04/25 02:12 ABG Base Excess -17.8 mmol/L (-2.0-2.0) L 05/04/25 02:12 Hasmukh Test Pos 05/04/25 02:12 Hematocrit 42.8 % (42-52) 05/04/25 02:12 O2 Delivery Device Room air 05/04/25 02:12 FiO2 21.0 % 05/04/25 02:12 Apple Thinner ID enrrique 05/04/25 02:12 Sodium 132 mmol/L (136-145) L 05/03/25 00:00 Potassium 5.0 mmol/L (3.5-5.1) 05/03/25 00:00 Chloride 97 mmol/L (98-107) L 05/03/25 00:00 Carbon Dioxide 9 mmol/L (22-29) L 05/03/25 00:00 Anion Gap 31.0 (5-19) H 05/03/25 00:00 BUN 14 mg/dL (6-20) 05/03/25 00:00 Creatinine 0.7 mg/dL (0.7-1.2) 05/03/25 00:00 GFR Calculation 134.3 mL/min (90-130) H 05/03/25 00:00 Glucose 415 mg/dL (65-115) H 05/03/25 00:00 POC Glucose 345 mg/dL (70-110) H 05/03/25 22:29 Calculated Osmolality 292 mOsm/kg (285-295) 05/03/25 00:00 Calcium 8.6 mg/dL (8.5-10.5) 05/03/25 00:00 Total Bilirubin 0.8 mg/dL (0.15-1.2) 05/03/25 00:00 AST 22 U/L (0-40) 05/03/25 00:00 ALT 25 U/L (0-41) 05/03/25 00:00 Alkaline Phosphatase 49 U/L (40-130) 05/03/25 00:00 Total Protein 6.9 g/dL (6.6-8.7) 05/03/25 00:00 Albumin 4.4 g/dL (3.5-5.2) 05/03/25 00:00 Globulin 2.5 g/dL (1.3-4.6) 05/03/25 00:00 All radiology interpretation(s) finalized by discharge Discharge Plan Discharge Patient Disposition: Admitted As Inpatient Admit Provider: Miri Ramos Clinical Impression: DKA (diabetic ketoacidosis), Hypovolemia, Nausea & vomiting, Elevated lactic acid level, Metabolic acidosis with respiratory alkalosis Condition: Serious Coding Level of Care Code ED Seo Associate for Maxx Mohr
[2025-05-04 02:24] LABS: ABG PCO2 20.7 mmHg (35-45); ABG PH Result 7.20 (7.35-7.45); Arterial Blood Gas Hematocrit 42.8 % (42-52); Blood Gas Allen Test Pos; Blood Gas Operator Identificat gerca; Blood Gas Sample Site Radial, right; Blood Gas Sample Type Arterial; HCO3 ABG 8.2 mmol/L (22-26); PO2 ABG 115.0 mmHg (80.0-100.0); PO2 FiO2 Ratio Arterial Blood 547
[2025-05-04] MEDS: ondansetron 2 mg/ML SDV 2 mL 4 MG IVP ×2 (03:15→04:59)
[2025-05-04] MEDS: INSULIN REGULAR IN 0.9 % NACL 100 UNIT/100 ML BAG 6.5 UNIT IV (03:15)
[2025-05-04 03:43] LABS: Hematocrit 40.7 % (37-53); Hemoglobin 13.30 g/dL (11.27-16.99); Mean Corpuscular HGB Conc 32.7 g/dL (30-55); Mean Corpuscular Hemoglobin 30.6 pg (27-33); Mean Corpuscular Volume 93.8 fl (82-101); Nucleated Red Blood Cells % 0 %; Platelet Count 227 10^3/cmm (157-399); Red Blood Count 4.34 10^6/uL (3.85-5.65); White Blood Count 14.34 10^3/uL (3.29-11.43)
[2025-05-04 03:51] LABS: Glucose Urine UA 3+ (Normal); Nitrate Urine Negative (Negative); Specific Gravity, Urine 1.026 (1.005-1.030)
[2025-05-04 03:56] LABS: Add Urine Microscopic? YES
--- NOTE | 2025-05-04 04:06 | PM.HP ---
Providers/Chief Complaint Admitting Physician: MIRI PAREKH DO== patient was inpatient and then left AGAINST MEDICAL ADVICE from ICU before midnight and then returned back to the ED to be readmitted after 12 midnight because of rising blood sugar . Primary Care Provider: MARGE Castellano Chief Complaint: High Blood Sugar History of Present Illness Salvatore Ott is a 30 year old male with medical history significant for uncontrolled blood sugar on insulin pump. Patient went into DKA when the insulin pump was reportedly malfunctioning. Patient was admitted and then left AGAINST MEDICAL ADVICE before midnight today on need to come back again to the emergency room to be readmitted after 12 midnight because of an apparent rising blood sugar according to him. Patient was worse than he was when he left AGAINST MEDICAL ADVICE. pH for blood gas was 7.2 bicarb was 9, anion gap 24.4, serum blood sugar 450 Prior to him leaving AGAINST MEDICAL ADVICE I was called to the unit spoke to the patient and he was adamant that he is leaving and that he has made up his mind. Patient was in DKA because of insulin that hopefully he will recover quickly and be formally discharged to follow-up with his provider outpatient. Patient was started on insulin drip for DKA protocol and was admitted to the unit into the same room he left AGAINST MEDICAL ADVICE Review of Systems Narrative: System review (10 organ review was essentially unremarkable patient is looking okay hemodynamically stable. Medications/Allergies Home Medications ?Medication ?Instructions ?Recorded ?Confirmed ?Last Taken ?Type blood sugar diagnostic #100 ea 03/20/21 05/03/25 Unknown Rx blood sugar diagnostic (Blood #100 ea 03/20/21 05/03/25 Unknown Rx Glucose Test strips) blood-glucose meter (Blood Glucose #1 ea 03/20/21 05/03/25 Unknown Rx Monitoring kit) lancets #200 ea 05/17/21 05/03/25 Unknown Rx strips #200 ea 05/17/21 05/03/25 Unknown Rx lancets #200 ea 06/18/21 05/03/25 Unknown Rx strips #1 ea 06/18/21 05/03/25 Unknown Rx blood-glucose sensor (Dexcom G6 #9 ea 10/18/22 05/03/25 Unknown Rx Sensor device) blood-glucose transmitter (Dexcom #3 ea 10/18/22 05/03/25 Unknown Rx G6 Transmitter device) blood-glucose,civil manager,cont #1 ea 10/18/22 05/03/25 Unknown Rx (Dexcom G6 Draw String Knotter) insulin pump cartridge,automated #1 10/18/22 05/03/25 Unknown Rx dose,BT with controller subcutaneous (Omnipod 5 G6 Intro Kit (Gen 5) subcutaneous cartridge with controller) insulin pump cart,auto,BT,G6/7 #15 ea 03/14/25 05/03/25 Unknown Rx (Omnipod 5 G6-G7 Pods (Gen 5) subcutaneous cartridge) insulin lispro 100 unit/mL See Rx Instructions .Route 03/20/25 05/03/25 05/03/25 Rx subcutaneous solution .COMPLEX #130 mL pen needle, diabetic 32 gauge x #100 03/20/25 05/03/25 Unknown Rx / (Comfort EZ Pen [place]) insulin syringes (disposable) 1 mL #500 ea 04/01/25 05/03/25 Unknown Rx insulin glargine 100 unit/mL (3 See Rx Instructions .Route 04/26/25 05/03/25 05/03/25 Rx mL) subcutaneous pen (Lantus .COMPLEX #45 mL Solostar U-100 Insulin) ondansetron 4 mg disintegrating 4 mg PO Q8H PRN nausea and 05/02/25 05/03/25 05/03/25 Rx tablet vomiting 4 days #20 tabs Allergies Allergy/AdvReac Type Severity Reaction Status Date / Time promethazine (From Phenergan) Allergy Unknown Verified 05/03/25 14:14 PFSH Acute PFSH: Medical History Abdominal pain High anion gap metabolic acidosis DKA (diabetic ketoacidosis) Diabetic keto-acidosis Hyperglycemia Nausea & vomiting Noncompliance with diabetes treatment Methamphetamine abuse DKA (diabetic ketoacidoses) History of pancreatitis Long-term insulin use Hypoglycemia due to insulin Uncontrolled type 1 diabetes mellitus Pancreatitis Marijuana use GERD (gastroesophageal reflux disease) Type 1 diabetes With recurrent admissions for DKA, severe Surgical History No pertinent past surgical history Family History Other Diabetes Social History Smoking and tobacco/nicotine status: never used tobacco/nicotine Alcohol intake: never Substance/Drug Use: former Date of last use: Marijuana abuse Lives independently: Yes Household members: family Marital status: Single Current occupational status: disabled Vitals/I&O/Wt Last Vital Signs Temp 98.0 F 05/03/25 22:24 Pulse 115 H 05/03/25 22:24 Resp 18 05/03/25 22:24 BP 105/65 05/03/25 22:24 Pulse Ox 100 05/03/25 22:24 O2 Del Method Room Air 05/03/25 22:24 05/03/25 05/03/25 05/04/25 14:59 22:59 06:59 Intake Total 0 / 0 Balance 0 / 0 Weight last 48 hrs Weight 67.132 kg Data 05/04/25 03:23 05/03/25 00:00 A&P Assessment and plan 1. DKA (diabetic ketoacidosis): 2. Metabolic acidosis with respiratory alkalosis: 3. Nausea & vomitin. Elevated lactic acid level: 5. High anion gap metabolic acidosis: 6. BALWINDER (acute kidney injury): 7. Hypovolemia: 8. Hyperphosphatemia: 9. Type 1 diabetes: 10. Acute hyperkalemia: Plan: #1 DKA - Admit to ICU for regular insulin drip for DKA protocol - Continue to optimize and care - Patient had no infection but is in insulin DEBT - Continue with insulin drip to clear acidosis, follow anion gap #2 Metabolic acidosis with respiratory alkalosis - Insulin drip with hydration will correct this - Follow-up with protocol - I expect the patient to close gap within 24 hours #3 Hypovolemia - Continue to rehydrate and follow protocol for type of fluid #4 Hypokalemia - Will resolve with insulin #5 Diabetes type 1 on insulin pump at home - Patient with insulin pump malfunction - Of an appointment to have this fixed at discharge #6 GI and DVT prophylaxis in place PDMP PDMP Reviewed: Last Reviewed 05/04/25 04:16 by Miri Parekh MD Attestations Medical Necessity Statement*: Patient is with DKA and will need at least 2 midnight stay for further optimization of care. Patient meets inpatient criteria Coding Level of Care Code 12279 Diagnoses DKA (diabetic ketoacidosis) E11.10 Metabolic acidosis with respiratory alkalosis E87.20; E87.3 Nausea & vomiting R11.2 Elevated lactic acid level R79.89 High anion gap metabolic acidosis E87.29 BALWINDER (acute kidney injury) N17.9 Hypovolemia E86.1 Hyperphosphatemia E83.39 Type 1 diabetes E10.9 Acute hyperkalemia E87.5 Time Spent (min) 70
[2025-05-04 04:07] LABS: Alanine Aminotransferase 26 U/L (0-41); Albumin Level 4.3 g/dL (3.5-5.2); Alkaline Phosphatase 50 U/L (40-130); Anion Gap 34.1 (5-19); Aspartate Amino Transferase 22 U/L (0-40); Blood Urea Nitrogen 17 mg/dL (6-20); Calcium 8.6 mg/dL (8.5-10.5); Chloride 99 mmol/L (98-107); Creatinine Clr Calc Pharmacy 110.1900; Globulin 2.5 g/dL (1.3-4.6); Glucose 458 mg/dL (65-115); Magnesium 2.0 mg/dL (1.7-2.3); Osmolality Calculated 302 mOsm/kg (285-295); Potassium 5.1 mmol/L (3.5-5.1); Sodium 135 mmol/L (136-145); Total Protein 6.8 g/dL (6.6-8.7)
[2025-05-04 04:09] LABS: Lactic Sepsis W/Reflex 3.7 mmol/L (0.5-2.2)
[2025-05-04 04:24] LABS: Carbon Dioxide 7 mmol/L (22-29)
[2025-05-04 04:44] LABS: Ketone (Acetest) Serum Negative (Negative)
[2025-05-04 04:51] LABS: PCP Screen Urine Negative (Negative)
[2025-05-04 05:02] LABS: Reflex Lactate Order REFLEX LACTIC ORDERD
[2025-05-04 06:01] LABS: ABG PCO2 23.6 mmHg (35-45); ABG PH Result 7.21 (7.35-7.45); Arterial Blood Gas Hematocrit 40.5 % (42-52); Blood Gas Operator Identificat SAM; Blood Gas Sample Site Brachial, right; Blood Gas Sample Type Arterial; HCO3 ABG 9.4 mmol/L (22-26); PO2 ABG 96.9 mmHg (80.0-100.0); PO2 FiO2 Ratio Arterial Blood 461
[2025-05-04] MEDS: heparin 5,000 unit/mL INJ 1 mL 5000 UNIT SUBCUT (06:11)
[2025-05-04 07:28] LABS: Lactic Acid level (Lactate) 1.8 mmol/L (0.5-2.2)
[2025-05-04 07:29] LABS: Anion Gap 23.3 (5-19); Blood Urea Nitrogen 16 mg/dL (6-20); Calcium 7.8 mg/dL (8.5-10.5); Chloride 106 mmol/L (98-107); Creatinine Clr Calc Pharmacy 129.2558; Glucose 256 mg/dL (65-115); Osmolality Calculated 288 mOsm/kg (285-295); Potassium 4.3 mmol/L (3.5-5.1); Sodium 134 mmol/L (136-145)
[2025-05-04 07:30] LABS: Carbon Dioxide 9 mmol/L (22-29)
--- NOTE | 2025-05-04 08:18 | PC.NURSE ---
Dr Snell came to bedside gave order for bicarb drip, plan to continue insulin per protocol
--- NOTE | 2025-05-04 08:49 | PM.MISC ---
Miscellaneous Note Purpose of Documentation: Admitted after MN- f.u note Note: Patient was admitted yesterday. He left AMA and came back after midnight and was readmitted. Patient is admitted for DKA often. Patient has significant metabolic acidosis with a bicarb of 9. At this time his electrolytes are adequate. Continue IV fluids insulin. Will add bicarb drip. Follow closely
--- NOTE | 2025-05-04 09:22 | PC.NURSE ---
glucose 170, Dr Snell putting in dextrose fluid order
--- NOTE | 2025-05-04 09:25 | PC.NURSE ---
per protocol insulin should decrease to 1.5 units/hr Dr. Snell gave order to decrease to 4 per hour
[2025-05-04] MEDS: dextrose 5%-sod chloride 0.45% 1,000 ML 75 ML IV (09:34)
--- NOTE | 2025-05-04 11:32 | PC.NURSE ---
patient determined to leave AMA, when asked why patient stated I just don't want to stay in the hospital anymore patient educated on severe risk of harm to health and if DKA is not resolved prior to leaving patient stated I know and i'll come back if I need to . Dr. Pride updated and advised if patient is leaving it is AMA not a Discharge. IVs dc patient left unit stated my ride will be here i'll wait in the [place].
== END 2025-05-04 11:41 | disposition left against medical advice (07) | DRG 639 ==
LOC: ER 05-04 03:06 → ICU 05-04 04:12
PROVIDERS: Admitting Provider Internal Medicine; Emergency Provider Emergency Medicine; PCP Nurse Practitioner Family; Visit Provider Internal Medicine
DX: E10.10 Type 1 diabetes mellitus with ketoacidosis without coma (principal); K21.9 Gastro-esophageal reflux disease without esophagitis; Z53.29 Procedure and treatment not carried out because of patient's decision for other reasons; Z79.4 Long term (current) use of insulin
CPT/HCPCS: 36415; 36416; 36600; 71045; 80048; 80053; 80306; 81001; 82009; 82803; 82962; 83605; 83735; 84100; 85025; 93005; 96365; 96367; 96372; 96375; 96376; 99285; J1644; J2405; J7030; J7799; J9999

== ENCOUNTER 2025-06-23 09:31 | Observation (INO) | payer OTHER, MEDICAID, SELFPAY ==
[2025-06-23] VITALS (14 sets, daily range): BP systolic 111–149; BP diastolic 64–86; PULSE 81–123; RESP 14–24; TEMP 36.6; O2SAT 95–100; BMI 23.3; BMI 22.5
--- NOTE | 2025-06-23 09:35 | ECG_ITS ---
[facility] Date: 2025-[facility]23 Pat Name: Salvatore Ott Department: Room: Gender: Male Kennel Aide: : 1995 Requested By: Connie Pozo Order Number: [id number] Alvarez MD: Zuleyma Llanos M.D. Measurements Intervals [place] Rate: 81 P: 61 [place]: 128 QRS: 85 QRSD: 82 T: 66 QT: 351 QTc: 409 Interpretive Statements SINUS RHYTHM Compared to ECG 05/04/2025 02:05:01 Sinus tachycardia no longer present Electronically Signed On 06-25-2025 19:29:45 CDT by Zuleyma Llanos M.D. [email or web address]
--- OUTSIDE RECORDS SUMMARY | 2025-06-23 09:39 | XMS_ITS | Clinical Summary ---
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
--- OUTSIDE RECORDS SUMMARY | 2025-06-23 09:39 | XMS_ITS | Clinical Summary ---
Author Organization [facility] Address [address] [address] Phone Care Team Providers Care Protective Signal Installer Helper Name Role Phone Ulisses Bui MD Primary Care Provider [phone] Allergies Active Allergy Reactions Criticality Noted Date [...] 2024 INFLUENZA VACCINE (#1) 2025 Insurance [place] PART A AND B Care Teams Protective Signal Installer Helper Relationship Specialty Start Date End Date Ulisses Bui MD [address] [facility] [address] [phone] PCP - General Endocrinology 06/07/16
--- OUTSIDE RECORDS SUMMARY | 2025-06-23 09:39 | XMS_ITS | Encounter Summary ---
Author Organization [facility] Address [address] [place] [address] Care Team Providers Care Linux Devops Engineer Name Role Phone Ulisses Bui MD Primary Care Provider [phone] Encounter Details Date Type Department Care Team (Late st Contact Info) Description 11/22/[address] [facility] Pre-Registration [place] CALL TO MAKE APPOINTMENT ONLY [address] [place] [address] Dave Valera MD [address] [place] [address] Demand ischemia (CMS/HCC); Acute kidney injury; DKA [...] Acute kidney failure, unspecified DKA (diabetic ketoacidoses) Type II or unspecified type diabetes mellitus with ketoacidosis, not stated as uncontrolled documented in this encounter Care Teams Linux Devops Engineer Relationship Specialty Start Date End Date Ulisses Bui MD [address] [phone] PCP - General Endocrinology 06/07/16 documented as of this encounter
--- OUTSIDE RECORDS SUMMARY | 2025-06-23 09:39 | XMS_ITS | Encounter Summary ---
Author Organization [facility] Address [address] [place] [address] Care Team Providers Care Biology Tutor Name Role Phone Ulisses Bui MD Primary Care Provider [phone] Reason for Referral * CT Scan (Routine) - Closed Specialty Diagnoses / Procedures Referred By Melodie jennings Referred To Contact Radiology Diagnoses Demand ischemia (CMS/HCC) Procedures [facility] Dave Valera MD [address] [place] [address] Phone: tel: [facility] CT Scan [address] [place] [address] Phone: tel: fax: Referral ID Status Reason Start Date Expiration Date V isits Requested Visits Authorized [id number] Closed [facility] TO SCHEDULE (SGF) 05/09/2019 06/08/2019 1 1 Encounter Details Date Type Department Care Team (Late st Contact Info) Description 04/12/2019 Ancillary Orders [facility] Pre-Registration [place] CALL TO MAKE APPOINTMENT ONLY [address] [place] [address] Dave Valera MD [address] [place] [address] Demand ischemia (CMS/HCC) Social History Tobacco Use [...] comparison. . Indication: This is a 24 bbjhv-luyd-not Male with chest discomfort. Concerns for obstructive coronary artery disease.. The study is performed in an attempt to avoid an invasive procedure. Technique: Spiral acquisition during intravenous contrast administration using a 64-slice GE CT scan. Multi-planar 3-D volume-rendering reconstruction was performed using a [employer] work station. Consecutive thin slices (< 1mm) [...] comparison. . Indication: This is a 24 etndt-wjob-dnv Male with chest discomfort. Concerns for obstructive coronary artery disease.. The study is performed in an attempt to avoid an invasive procedure. Technique: Spiral acquisition during intravenous contrast administration using a 64-slice GE CT scan. Multi-planar 3-D volume-rendering reconstruction was performed using a [employer] work station. Consecutive thin slices (< 1mm) [...] disease documented in this encounter Care Teams Biology Tutor Relationship Specialty Start Date End Date Ulisses Bui MD [address] [phone] PCP - General Endocrinology 06/07/16 documented as of this encounter
--- OUTSIDE RECORDS SUMMARY | 2025-06-23 09:39 | XMS_ITS | Encounter Summary ---
Author Organization [facility] Address [address] [place] [address] Care Team Providers Care Tire And Lube Technician Name Role Phone Ulisses Bui MD Primary Care Provider [phone] Reason for Referral * CT Scan (Routine) - Closed Specialty Diagnoses / Procedures Referred By Contmery t Referred To Contact Diagnoses Demand ischemia (CMS/HCC) Procedures CT CARDIAC CHEST INTERPRETATION Dave Valera MD [address] [place] [address] Phone: tel: Referral ID Status Reason Start Date Expiration Date Visits Re quested Visits Authorized [id number] Closed 05/09/2019 06/08/2020 1 1 Encounter Details Date Type Department Care Team (Late st Contact Info) Description 05/09/2019 Ancillary Orders [facility] Pre-Registration [place] CALL TO MAKE APPOINTMENT ONLY [address] [place] [phone] Dave Valera MD [address] [place] [address] Demand ischemia (CMS/HCC) Social History Tobacco Use [...] PET/CT would be recommended for further workup. [id number] Narrative 05/10/2019 6:[address] CARDIAC [...] PET/CT would be recommended for further workup. 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
--- NOTE | 2025-06-23 09:47 | ED_ITS ---
HPI - Nausea/Vomiting/Diarrhea 2 General: Chief complaint: Nausea/Vomiting/Diarrhea Stated complaint: hyperglycemia Time Seen by Provider: 06/23/25 09:32 History of Present Illness: 30-year-old male with a history of type 1 diabetes, history of pancreatitis, medical noncompliance, methamphetamine abuse and recurrent DKA who presents to the emergency room with nausea vomiting and hyperglycemia. He says he thinks his pump is not working appropriately. Says his sugar was over 400 at home. No altered mental status. No focal motor deficits. He reports no chest pain. No focal abdominal pain. Related Data Previous Rx's ?Medication ?Instructions ?Recorded blood sugar diagnostic #100 ea 03/20/21 blood sugar diagnostic (Blood #100 ea 03/20/21 Glucose Test strips) blood-glucose meter (Blood Glucose #1 03/20/21 Monitoring kit) lancets #200 ea 05/17/21 strips #200 ea 05/17/21 lancets #200 ea 06/18/21 strips #1 ea 06/18/21 blood-glucose sensor (Dexcom G6 #9 10/18/22 Sensor device) blood-glucose transmitter (Dexcom #3 ea 10/18/22 G6 Transmitter device) blood-glucose,camera maker,cont #1 ea 10/18/22 (Dexcom G6 Director Loan) insulin pump cartridge,automated #1 10/18/22 dose,BT with controller subcutaneous (Omnipod 5 G6 Intro Kit (Gen 5) subcutaneous cartridge with controller) insulin pump cart,auto,BT,G6/7 #15 ea 03/14/25 (Omnipod 5 G6-G7 Pods (Gen 5) subcutaneous cartridge) insulin lispro 100 unit/mL See Rx Instructions .Route 03/20/25 subcutaneous solution .COMPLEX #130 mL pen needle, diabetic 32 gauge x #100 ea 03/20/2511/18 (Comfort EZ Pen [place]) insulin syringes (disposable) 1 mL #500 ea 04/01/25 insulin glargine 100 unit/mL (3 See Rx Instructions .R oute 04/26/25 mL) subcutaneous pen (Lantus .COMPLEX #45 mL Solostar U-100 Insulin) Allergies Allergy/AdvReac Type Severity Reaction Status Date / Time promethazine (From Phenergan) Allergy Unknown Verified 05/03/25 14:14 Review of Systems 2 Narrative: Constitutional symptoms: Negative except as documented in HPI. Skin symptoms: Negative except as documented in HPI. Eye symptoms: Negative except as documented in HPI. ENMT symptoms: Negative except as documented in HPI. Respiratory symptoms: Negative except as documented in HPI. Cardiovascular symptoms: Negative except as documented in HPI. Gastrointestinal symptoms: Negative except as documented in HPI. Genitourinary symptoms: Negative except as documented in HPI. Musculoskeletal symptoms: Negative except as documented in HPI. Neurologic symptoms: Negative except as documented in HPI. Psychiatric symptoms: Negative except as documented in HPI. Endocrine symptoms: Negative except as documented in HPI. PFSH ED 2 PFSH: Medical History (Updated 06/23/25 @ 11:45 by Connie Mac MD) Abdominal pain High anion gap metabolic acidosis DKA (diabetic ketoacidosis) Diabetic keto-acidosis Hyperglycemia Nausea & vomiting Noncompliance with diabetes treatment Methamphetamine abuse DKA (diabetic ketoacidoses) History of pancreatitis Long-term insulin use Hypoglycemia due to insulin Uncontrolled type 1 diabetes mellitus Pancreatitis Marijuana use GERD (gastroesophageal reflux disease) Type 1 diabetes With recurrent admissions for DKA, severe Surgical History No pertinent past surgical history Family History Other Diabetes Social History Smoking and tobacco/nicotine status: never used tobacco/nicotine Alcohol intake: never Substance/Drug Use: former Date of last use: Marijuana abuse Lives independently: Yes Household members: family Marital status: Single Current occupational status: disabled Physical Exam 2 Narrative: EXAM NARRATIVE: General: Alert, patient appears ill Skin: Warm, dry. Head: Normocephalic, atraumatic. Neck: Supple, trachea midline. Eye: Extraocular movements are intact. Ears, nose, mouth and throat: Tacky oral mucosa Cardiovascular: Regular, Normal peripheral perfusion. Respiratory: Lungs are clear to auscultation, respirations are non-labored, breath sounds are equal, Symmetrical chest wall expansion. Gastrointestinal: Soft, Nontender, Non distended Musculoskeletal: Normal ROM, no deformity. Neurological: Alert and oriented, No focal neurological deficit observed. Psychiatric: Cooperative, appropriate mood & affect. Course 2 Vital Signs: Vital signs: Vital Signs Temperature 97.8 F 06/23/25 09:33 Pulse Rate 123 H 06/23/25 11:30 Respiratory Rate 21 H 06/23/25 11:30 Blood Pressure 139/79 06/23/25 11:30 Pulse Oximetry 98 06/23/25 11:30 Oxygen Delivery Me thod Room Air 06/23/25 09:54 MDM - Nausea/Vomiting/Diarrhea Medical Decision Making Medical decision making: Differential diagnosis for the patient with hyperglycemia would include but not be limited to and would be based on the above HPI review of systems and physical exam: DKA. Dehydration. Renal failure. Concern for electrolyte abnormalities. Concern for underlying infection that might result in hyperglycemia. Medical non-compliance. Orders placed to evaluate differential diagnosis of the patient with hyperglycemia are based on the above differential, HPI and physical exam. AB.30/20/118 with a bicarb of 10. Metabolic acidosis. Given the patient's history most likely DKA EKG: Time 9:46 AM. Rate 81. Normal sinus rhythm, No ST-T changes, no ectopy, normal KS & QRS intervals, This was reviewed and interpreted by myself the ER physician at 9:50 AM Lab Review: Laboratory results were reviewed and interpreted by myself the emergency room physician. No leukocytosis. No anemia. No renal failure. Glucose is 290 on BMP. Bicarb is 12. He has 4+ glucose in his urine yet somehow the ketones are negative on his serum. I think this may be an error and I am repeating and adding a lactic acid. Flu COVID and RSV are negative I reviewed the patient's medical record. 30-year-old male with a history of type 1 diabetes, history of pancreatitis, medical noncompliance, methamphetamine abuse and recurrent DKA Reexamination: Patient remained stable. No increased work of breathing. No altered mental status. No focal motor deficits. He does have a little bit of tachycardia now Consultation: I spoke with Dr. Snell who is on-call for the hospitalist service who agrees to admission to the ICU. Assessment and plan: DKA ?2 L normal saline bolus ? Insulin drip initiated ? IV Zofran -I discussed the patient with the hospitalist on-call who is admitting the patient. - Discussed findings and plan with patient. Answered any questions. - All laboratory values were reviewed and interpreted personally by myself, the ER physician - All imaging was reviewed and interpreted personally by myself, the ER physician. - Evaluation and treatment of this problem were appropriate in the emergency setting Critical Care: -I spent a total of 36 minutes of critical care time managing the patient, independent of any other practitioner. -The time involved in the performance of separately reportable procedures was not counted towards critical care time. Lab Data 06/23/25 09:55 06/23/25 09:55 Laboratory Results WBC 10.68 10^3/uL (3.29-11.43) 06/23/25 09:55 RBC 4.93 10^6/uL (3.85-5.65) 06/23/25 09:55 Hgb 15.10 g/dL (11.27-16.99) 06/23/25 09:55 Hct 45.7 % (37-53) 06/23/25 09:55 MCV 92.7 fl (82-101) 06/23/25 09:55 MCH 30.6 pg (27-33) 06/23/25 09:55 MCHC 33.0 g/dL (30-55) 06/23/25 09:55 RDW 13.2 % (12.1-15.1) 06/23/25 09:55 Plt Count 278 10^3/cmm (157-399) 06/23/25 09:55 MPV 9.7 fL (7.4-10.4) 06/23/25 09:55 Neut % (Auto) 91.5 % 06/23/25 09:55 Lymph % (Auto) 5.1 % 06/23/25 09:55 [place] % (Auto) 2.3 % 06/23/25 09:55 Eos % (Auto) 0.0 % 06/23/25 09:55 Baso % (Auto) 0.4 % 06/23/25 09:55 Neut # (Auto) 9.78 10^3/uL (1.8-7.7) H 06/23/25 09:55 Lymph # (Auto) 0.5 10^3/uL (0.8-4.8) L 06/23/25 09:55 [place] # (Auto) 0.3 10^3/uL (0.2-0.9) 06/23/25 09:55 Eos # (Auto) 0.0 10^3/uL (0.0-0.8) 06/23/25 09:55 Baso # (Auto) 0.0 10^3/uL (0.0-0.1) 06/23/25 09:55 Nucleated RBC % (auto) 0 % 06/23/25 09:55 Nucleated RBCs # 0.0 /100WBC 06/23/25 09:55 Specimen Type Arterial 06/23/25 09:41 Sample Site Brachial, right 06/23/25 09:41 ABG pH 7.30 (7.35-7.45) L 06/23/25 09:41 ABG pCO2 20.6 mmHg (35-45) L 06/23/25 09:41 ABG pO2 118.0 mmHg (80.0-100.0) H 06/23/25 09:41 ABG PO2/FiO2 Ratio 561 06/23/25 09:41 ABG HCO3 10.2 mmol/L (22-26) L 06/23/25 09:41 ABG O2 Saturation 98.9 06/23/25 09:41 ABG Base Excess -13.8 mmol/L (-2.0-2.0) L 06/23/25 09:41 Hasmukh Test Pos 06/23/25 09:41 A-a O2 Gradient 0.4 mmHg (5-10) L 06/23/25 09:41 Hematocrit 47.8 % (42-52) 06/23/25 09:41 Hgb O2 Saturation 96.6 % (95-100) 06/23/25 09:41 Carboxyhemoglobin 1.2 %THgb (0.4-20.1) 06/23/25 09:41 Methemoglobin 1.1 % (0.4-1.5) 06/23/25 09:41 Total Hemoglobin 15.6 g/dL (14-18) 06/23/25 09:41 Sodium 145.0 mmol/L (131-143) H 06/23/25 09:41 Potassium 4.4 mmol/L (3.5-5.0) 06/23/25 09:41 Glucose 289.0 mg/dL (70-115) H 06/23/25 09:41 Ionized Calcium 1.3 mmol/L (1.1-1.4) 06/23/25 09:41 O2 Delivery Device Room air 06/23/25 09:41 FiO2 21.0 % 06/23/25 09:41 Driller Helper ID Walc 06/23/25 09:41 Sodium 143 mmol/L (136-145) 06/23/25 09:55 Potassium 4.8 mmol/L (3.5-5.1) 06/23/25 09:55 Chloride 104 mmol/L (98-107) 06/23/25 09:55 Carbon Dioxide 12 mmol/L (22-29) L 06/23/25 09:55 Anion Gap 31.8 (5-19) H 06/23/25 09:55 BUN 15 mg/dL (6-20) 06/23/25 09:55 Creatinine 0.9 mg/dL (0.7-1.2) 06/23/25 09:55 GFR Calculation 100.5 mL/min (90-130) 06/23/25 09:55 Glucose 290 mg/dL (65-115) H 06/23/25 09:55 POC Glucose 236 mg/dL (70-110) H 06/23/25 10:32 Calculated Osmolality 307 mOsm/kg (285-295) H 06/23/25 09:55 Lactic Acid 2.0 mmol/L (0.5-2.2) 06/23/25 09:55 Calcium 9.5 mg/dL (8.5-10.5) 06/23/25 09:55 Phosphorus 3.6 mg/dL (2.5-4.5) 06/23/25 09:55 Magnesium 1.9 mg/dL (1.7-2.3) 06/23/25 09:55 Total Bilirubin 0.5 mg/dL (0.15-1.2) 06/23/25 09:55 AST 16 U/L (0-40) 06/23/25 09:55 ALT 19 U/L (0-41) 06/23/25 09:55 Alkaline Phosphatase 55 U/L (40-130) 06/23/25 09:55 Total Protein 7.6 g/dL (6.6-8.7) 06/23/25 09:55 Albumin 4.9 g/dL (3.5-5.2) 06/23/25 09:55 Globulin 2.7 g/dL (1.3-4.6) 06/23/25 09:55 Urine Color Yellow (Yellow) 06/23/25 09:42 Urine Appearance Clear (CLEAR) 06/23/25 09:42 Urine pH 5.5 (5-7) 06/23/25 09:42 Ur Specific [place] 1.036 (1.005-1.030) H 06/23/25 09:42 Urine Protein 1+ (Negative) A 06/23/25 09:42 Urine Glucose (UA) 1+ (Normal) H 06/23/25 09:42 Urine Ketones 4+ (Negative) 06/23/25 09:42 Urine Blood Negative (Negative) 06/23/25 09:42 Urine Nitrate Negative (Negative) 06/23/25 09:42 Urine Bilirubin Negative (Negative) 06/23/25 09:42 Urine Urobilinogen 0.2 mg/dL (Negative) 06/23/25 09:42 Ur Leukocyte Esterase Negative (Negative) 06/23/25 09:42 Urine RBC 0-4 /hpf (0-2) H 06/23/25 09:42 Urine WBC 0-4 /hpf (0-5) H 06/23/25 09:42 Ur Squamous Epith Cells 0-4 /hpf (0-5) H 06/23/25 09:42 Amorphous Sediment Not Reportable 06/23/25 09:42 Urine Bacteria Trace /hpf (NONE) 06/23/25 09:42 Serum Ketones Negative (Negative) 06/23/25 09:55 Influenza A (PCR) Negative (Negative) 06/23/25 09:43 Influenza Type B (PCR) Negative (Negative) 06/23/25 09:43 RSV (PCR) Negative (Negative) 06/23/25 09:43 SARS-CoV-2 (PCR) Negative (Negative) 06/23/25 09:43 No radiology studies performed this visit Discharge Plan Discharge Patient Disposition: Admitted As Inpatient Admit Provider: Husam Snell Clinical Impression: DKA (diabetic ketoacidosis) Qualifiers: Diabetes mellitus type: type 1 Diabetes mellitus complication detail: without coma Qualified Code(s): E10.10 - Type 1 diabetes mellitus with ketoacidosis without coma Type 1 diabetes Qualifiers: Diabetes mellitus complication status: without complication Qualified Code(s): E10.9 - Type 1 diabetes mellitus without complications Condition: Stable Coding Level of Care Code ED Battery Test Engineer for [facility] Fani
[2025-06-23 09:52] LABS: ABG PCO2 20.6 mmHg (35-45); ABG PH Result 7.30 (7.35-7.45); Alveolar-Arterial Oxygen Gradi 0.4 mmHg (5-10); Arterial Blood Gas Hematocrit 47.8 % (42-52); Blood Gas Allen Test Pos; Blood Gas Operator Identificat WALC; Blood Gas Sample Site Brachial, right; Blood Gas Sample Type Arterial; Carboxyhemoglobin 1.2 %THgb (0.4-20.1); Glucose Level-ABG 289.0 mg/dL (70-115); HCO3 ABG 10.2 mmol/L (22-26); Ionized Calcium Level - ABG 1.3 mmol/L (1.1-1.4); Methemoglobin 1.1 % (0.4-1.5); Oxygen Saturation ABG 98.9; PO2 ABG 118.0 mmHg (80.0-100.0); PO2 FiO2 Ratio Arterial Blood 561; Potassium Level - ABG 4.4 mmol/L (3.5-5.0); Sodium Level - ABG 145.0 mmol/L (131-143)
[2025-06-23] MEDS: ondansetron 2 mg/ML SDV 2 mL 4 MG IVP ×2 (09:54→13:42)
[2025-06-23 09:55] LABS: Glucose Urine UA 1+ (Normal); Nitrate Urine Negative (Negative)
[2025-06-23 10:04] LABS: Hematocrit 45.7 % (37-53); Hemoglobin 15.10 g/dL (11.27-16.99); Mean Corpuscular HGB Conc 33.0 g/dL (30-55); Mean Corpuscular Hemoglobin 30.6 pg (27-33); Mean Corpuscular Volume 92.7 fl (82-101); Nucleated Red Blood Cells % 0 %; Platelet Count 278 10^3/cmm (157-399); Red Blood Count 4.93 10^6/uL (3.85-5.65); White Blood Count 10.68 10^3/uL (3.29-11.43)
[2025-06-23 10:05] LABS: Specific Gravity, Urine 1.036 (1.005-1.030)
[2025-06-23 10:14] LABS: Ketone (Acetest) Serum Negative (Negative)
[2025-06-23 10:22] LABS: Alanine Aminotransferase 19 U/L (0-41); Albumin Level 4.9 g/dL (3.5-5.2); Alkaline Phosphatase 55 U/L (40-130); Anion Gap 31.8 (5-19); Aspartate Amino Transferase 16 U/L (0-40); Blood Urea Nitrogen 15 mg/dL (6-20); Calcium 9.5 mg/dL (8.5-10.5); Carbon Dioxide 12 mmol/L (22-29); Chloride 104 mmol/L (98-107); Creatinine Clr Calc Pharmacy 107.6811; Globulin 2.7 g/dL (1.3-4.6); Glucose 290 mg/dL (65-115); Magnesium 1.9 mg/dL (1.7-2.3); Osmolality Calculated 307 mOsm/kg (285-295); Potassium 4.8 mmol/L (3.5-5.1); Sodium 143 mmol/L (136-145); Total Protein 7.6 g/dL (6.6-8.7)
[2025-06-23 10:29] LABS: Respiratory Syncytial Virus Ce NEGATIVE (Negative); SARS-CoV-2 PCR NEGATIVE (Negative)
[2025-06-23] MEDS: INSULIN REGULAR IN 0.9 % NACL 100 UNIT/100 ML BAG 6 UNIT IV (10:48)
[2025-06-23 10:52] LABS: Lactic Sepsis W/Reflex 2.0 mmol/L (0.5-2.2)
--- NOTE | 2025-06-23 11:11 | PC.NURSE ---
Patient removed insulin pump prior to start of insulin drip.
[2025-06-23 11:55] LABS: Ketone (Acetest) Serum Positive (Negative)
[2025-06-23] MEDS: D5-NS 0.45% + KCL 20 mEq 20 MEQ/1,000 ML BAG 100 MEQ IV (13:01)
[2025-06-23 14:45] LABS: Anion Gap 29.2 (5-19); Blood Urea Nitrogen 12 mg/dL (6-20); Calcium 8.6 mg/dL (8.5-10.5); Carbon Dioxide 11 mmol/L (22-29); Chloride 105 mmol/L (98-107); Creatinine Clr Calc Pharmacy 136.6667; Glucose 231 mg/dL (65-115); Osmolality Calculated 299 mOsm/kg (285-295); Potassium 4.2 mmol/L (3.5-5.1); Sodium 141 mmol/L (136-145)
--- NOTE | 2025-06-23 15:55 | P.HP_ITS ---
Providers/Chief Complaint 2 Admitting Physician: Husam Snell DO Primary Care Provider: MARGE Castellano Chief Complaint: hyperglycemia History of Present Illness Salvatore Ott is a 30 year old male with type 1 diabetes mellitus. He presents today after sudden onset nausea last night. Reports were that he had a malfunctioning pump as per the ER. However patient says that his pump was working fine. He has no inciting event. It appears the nausea represents the onset of DKA. In the emergency room again he showed signs of DKA and was admitted to the ICU for usual treatment. Patient was last here in April of this year. Review of Systems 2 Const: Denies: fever(s) or chills Eyes: Denies: change in vision ENMT: Denies: throat pain or nasal congestion Card: Denies: chest pain or palpitations Resp: Denies: dyspnea or productive cough GI: Denies: abdominal pain, vomiting or change in stool character : Denies: difficulty urinating or dysuria Musc: Denies: back pain or extremity pain Skin/Breast: Denies: rash or lesions Neuro: Denies: headache(s) or dizziness Psych: Denies: anxiety or depression Garett/Lymph: Denies: easy bruising or easy bleeding Medications/Allergies Home Medications ?Medication ?Instructions ?Recorded ?Confirmed ?Last Taken ?Type blood sugar diagnostic #100 ea 03/20/21 06/23/25 Un known Rx blood sugar diagnostic (Blood #100 ea 03/20/21 5 Unknown Rx Glucose Test strips) blood-glucose meter (Blood Glucose #1 ea 03/20/2106/05 Unknown Rx Monitoring kit) lancets #200 ea 05/17/21 06/23/25 Un known Rx strips #200 ea 05/17/21 06/23/25 Un known Rx lancets #200 ea 06/18/21 06/23/25 Un known Rx strips #1 ea 06/18/21 06/23/25 Unkn own Rx blood-glucose sensor (Dexcom G6 #9 10/18/22 5 Unknown Rx Sensor device) blood-glucose transmitter (Dexcom #3 ea 10/18/2206/23 Unknown Rx G6 Transmitter device) blood-glucose,administrative services specialist,cont #1 10/18/22 06/23/25 Un known Rx (Dexcom G6 Senior Dot Net Developer) insulin pump cartridge,automated #1 ea 10/18/22 Unknown Rx dose,BT with controller subcutaneous (Omnipod 5 G6 Intro Kit (Gen 5) subcutaneous cartridge with controller) insulin pump cart,auto,BT,G6/7 #15 ea 03/14/25 5 Unknown Rx (Omnipod 5 G6-G7 Pods (Gen 5) subcutaneous cartridge) insulin lispro 100 unit/mL See Rx Instructions .Route 03/20/25 06/23/25 05/03/25 Rx subcutaneous solution .COMPLEX #130 mL pen needle, diabetic 32 gauge x #100 ea 03/20/2506/23 Unknown Rx /16 (Comfort EZ Pen [place]) insulin syringes (disposable) 1 mL #500 ea 04/01/25 Unknown Rx insulin glargine 100 unit/mL (3 See Rx Instructions .R oute 04/26/25 06/23/25 05/03/25 Rx mL) subcutaneous pen (Lantus .COMPLEX #45 mL Solostar U-100 Insulin) Allergies Allergy/AdvReac Type Severity Reaction Status Date / Time promethazine (From Phenergan) Allergy Unknown Verified 05/03/25 14:14 PFSH Acute 2 PFSH: Medical History Abdominal pain High anion gap metabolic acidosis DKA (diabetic ketoacidosis) Diabetic keto-acidosis Hyperglycemia Nausea & vomiting Noncompliance with diabetes treatment Methamphetamine abuse DKA (diabetic ketoacidoses) History of pancreatitis Long-term insulin use Hypoglycemia due to insulin Uncontrolled type 1 diabetes mellitus Pancreatitis Marijuana use GERD (gastroesophageal reflux disease) Type 1 diabetes With recurrent admissions for DKA, severe Surgical History No pertinent past surgical history Family History Other Diabetes Social History Smoking and tobacco/nicotine status: never used tobacco/nicotine Alcohol intake: never Substance/Drug Use: former Date of last use: Marijuana abuse Lives independently: Yes Household members: family Marital status: Single Current occupational status: disabled Vitals/I&O/Wt Last Vital Signs Temp 97.8 F 06/23/25 14:00 Pulse 108 H 06/23/25 15:00 Resp 15 06/23/25 15:00 BP 127/78 06/23/25 15:00 Pulse Ox 97 06/23/25 15:00 O2 Del Method Room Air 06/23/25 15:00 06/23/25 06/23/25 06/23/25 06:59 14:59 22:59 Intake Total Balance Weight last 48 hrs Weight 61.5 kg Weight 63.503 kg Physical Exam 2 Narrative: Acutely ill-appearing Young male. No acute distress. HEENT head is normocephalic atraumatic pupils are equal round reactive to light and accommodation extraocular's muscles are intact no scleral icterus mucous membranes are moist and pink without lesions or exudate neck is supple no JVD carotid bruits lymphadenopathy Heart is regular normal S1-S2 without murmurs clicks gallops or rubs Lungs clear to auscultation without wheezes rales or rhonchi Abdomen soft flat nontender nondistended positive bowel sounds no hepatosplenomegaly Extremities no clubbing cyanosis edema Back no scoliosis or CVA tenderness Psych mood and affect appear appropriate to current illness Skin no rashes or lesions noted Data 06/23/25 09:55 06/23/25 14:01 EKG 1: My Interpretation: Normal sinus rhythm A&P Assessment and plan 1. DKA (diabetic ketoacidosis): Admitted to the ICU for usual treatment of DKA with n.p.o. status insulin drip follow BMP and electrolytes every 4 hours with orders for abnormalities. PDMP PDMP Reviewed: Not Reviewed Attestations 2 Medical Necessity Statement*: Patient is admitted for treatment of DKA. Coding Level of Care Code Acute Code for [facility] Fwd Diagnoses DKA (diabetic ketoacidosis) E11.10
--- NOTE | 2025-06-23 16:03 | PM.DCS ---
Discharge Providers Date of Admission: 06/23/25 10:39 Date of Discharge: June 23, 2025 Attending Provider at Admission: Husam Snell DO Attending Provider at Discharge: Husam Snell DO Primary Care Provider: MARGE Castellano Diagnoses at Discharge Discharge Diagnosis 1. DKA (diabetic ketoacidosis): Reason for Visit Reason for Visit: hyperglycemia Brief History: Patient came in due to sudden onset of nausea last night his blood sugars were reading high. And he was not feeling well. He was found to be in DKA Hospital Course Hospital Course Patient spent a few hours in the ICU he awoke when I went in to examine him. I did not have time to complete the H&P before the nurse called me to let me know he wanted to leave AMA. Patient has a long history of leaving AMA and just left 05/04/2025 under send similar circumstances. Physical Exam Narrative: Acutely ill-appearing Young male. No acute distress. HEENT head is normocephalic atraumatic pupils are equal round reactive to light and accommodation extraocular's muscles are intact no scleral icterus mucous membranes are moist and pink without lesions or exudate neck is supple no JVD carotid bruits lymphadenopathy Heart is regular normal S1-S2 without murmurs clicks gallops or rubs Lungs clear to auscultation without wheezes rales or rhonchi Abdomen soft flat nontender nondistended positive bowel sounds no hepatosplenomegaly Extremities no clubbing cyanosis edema Back no scoliosis or CVA tenderness Psych mood and affect appear appropriate to current illness Skin no rashes or lesions noted Discharge Data Studies Completed and Pending Laboratory Results WBC 10.68 10^3/uL (3.29-11.43) 06/23/25 09:55 RBC 4.93 10^6/uL (3.85-5.65) 06/23/25 09:55 Hgb 15.10 g/dL (11.27-16.99) 06/23/25 09:55 Hct 45.7 % (37-53) 06/23/25 09:55 MCV 92.7 fl (82-101) 06/23/25 09:55 MCH 30.6 pg (27-33) 06/23/25 09:55 MCHC 33.0 g/dL (30-55) 06/23/25 09:55 RDW 13.2 % (12.1-15.1) 06/23/25 09:55 Plt Count 278 10^3/cmm (157-399) 06/23/25 09:55 MPV 9.7 fL (7.4-10.4) 06/23/25 09:55 Neut % (Auto) 91.5 % 06/23/25 09:55 Lymph % (Auto) 5.1 % 06/23/25 09:55 Logan % (Auto) 2.3 % 06/23/25 09:55 Eos % (Auto) 0.0 % 06/23/25 09:55 Baso % (Auto) 0.4 % 06/23/25 09:55 Neut # (Auto) 9.78 10^3/uL (1.8-7.7) H 06/23/25 09:55 Lymph # (Auto) 0.5 10^3/uL (0.8-4.8) L 06/23/25 09:55 Logan # (Auto) 0.3 10^3/uL (0.2-0.9) 06/23/25 09:55 Eos # (Auto) 0.0 10^3/uL (0.0-0.8) 06/23/25 09:55 Baso # (Auto) 0.0 10^3/uL (0.0-0.1) 06/23/25 09:55 Nucleated RBC % (auto) 0 % 06/23/25 09:55 Nucleated RBCs # 0.0 /100WBC 06/23/25 09:55 Specimen Type Arterial 06/23/25 09:41 Sample Site Brachial, right 06/23/25 09:41 ABG pH 7.30 (7.35-7.45) L 06/23/25 09:41 ABG pCO2 20.6 mmHg (35-45) L 06/23/25 09:41 ABG pO2 118.0 mmHg (80.0-100.0) H 06/23/25 09:41 ABG PO2/FiO2 Ratio 561 06/23/25 09:41 ABG HCO3 10.2 mmol/L (22-26) L 06/23/25 09:41 ABG O2 Saturation 98.9 06/23/25 09:41 ABG Base Excess -13.8 mmol/L (-2.0-2.0) L 06/23/25 09:41 Hasmukh Test Pos 06/23/25 09:41 A-a O2 Gradient 0.4 mmHg (5-10) L 06/23/25 09:41 Hematocrit 47.8 % (42-52) 06/23/25 09:41 Hgb O2 Saturation 96.6 % (95-100) 06/23/25 09:41 Carboxyhemoglobin 1.2 %THgb (0.4-20.1) 06/23/25 09:41 Methemoglobin 1.1 % (0.4-1.5) 06/23/25 09:41 Total Hemoglobin 15.6 g/dL (14-18) 06/23/25 09:41 Sodium 145.0 mmol/L (131-143) H 06/23/25 09:41 Potassium 4.4 mmol/L (3.5-5.0) 06/23/25 09:41 Glucose 289.0 mg/dL (70-115) H 06/23/25 09:41 Ionized Calcium 1.3 mmol/L (1.1-1.4) 06/23/25 09:41 O2 Delivery Device Room air 06/23/25 09:41 FiO2 21.0 % 06/23/25 09:41 Certified Nursing Assistant ID Walc 06/23/25 09:41 Sodium 141 mmol/L (136-145) 06/23/25 14:01 Sodium Cancelled 06/23/25 14:01 Potassium 4.2 mmol/L (3.5-5.1) 06/23/25 14:01 Potassium Cancelled 06/23/25 14:01 Chloride 105 mmol/L (98-107) 06/23/25 14:01 Chloride Cancelled 06/23/25 14:01 Carbon Dioxide 11 mmol/L (22-29) L 06/23/25 14:01 Carbon Dioxide Cancelled 06/23/25 14:01 Anion Gap 29.2 (5-19) H 06/23/25 14:01 Anion Gap Cancelled 06/23/25 14:01 BUN 12 mg/dL (6-20) 06/23/25 14:01 BUN Cancelled 06/23/25 14:01 Creatinine 0.7 mg/dL (0.7-1.2) 06/23/25 14:01 Creatinine Cancelled 06/23/25 14:01 GFR Calculation 134.3 mL/min (90-130) H 06/23/25 14:01 GFR Calculation Cancelled 06/23/25 14:01 Glucose 231 mg/dL (65-115) H 06/23/25 14:01 Glucose Cancelled 06/23/25 14:01 POC Glucose 190 mg/dL (70-110) H 06/23/25 13:04 Calculated Osmolality 299 mOsm/kg (285-295) H 06/23/25 14:01 Calculated Osmolality Cancelled 06/23/25 14:01 Lactic Acid 2.0 mmol/L (0.5-2.2) 06/23/25 09:55 Calcium 8.6 mg/dL (8.5-10.5) 06/23/25 14:01 Calcium Cancelled 06/23/25 14:01 Phosphorus 3.6 mg/dL (2.5-4.5) 06/23/25 09:55 Magnesium 1.9 mg/dL (1.7-2.3) 06/23/25 09:55 Total Bilirubin 0.5 mg/dL (0.15-1.2) 06/23/25 09:55 AST 16 U/L (0-40) 06/23/25 09:55 ALT 19 U/L (0-41) 06/23/25 09:55 Alkaline Phosphatase 55 U/L (40-130) 06/23/25 09:55 Total Protein 7.6 g/dL (6.6-8.7) 06/23/25 09:55 Albumin 4.9 g/dL (3.5-5.2) 06/23/25 09:55 Globulin 2.7 g/dL (1.3-4.6) 06/23/25 09:55 Urine Color Yellow (Yellow) 06/23/25 09:42 Urine Appearance Clear (CLEAR) 06/23/25 09:42 Urine pH 5.5 (5-7) 06/23/25 09:42 Ur Specific [place] 1.036 (1.005-1.030) H 06/23/25 09:42 Urine Protein 1+ (Negative) A 06/23/25 09:42 Urine Glucose (UA) 1+ (Normal) H 06/23/25 09:42 Urine Ketones 4+ (Negative) 06/23/25 09:42 Urine Blood Negative (Negative) 06/23/25 09:42 Urine Nitrate Negative (Negative) 06/23/25 09:42 Urine Bilirubin Negative (Negative) 06/23/25 09:42 Urine Urobilinogen 0.2 mg/dL (Negative) 06/23/25 09:42 Ur Leukocyte Esterase Negative (Negative) 06/23/25 09:42 Urine RBC 0-4 /hpf (0-2) H 06/23/25 09:42 Urine WBC 0-4 /hpf (0-5) H 06/23/25 09:42 Ur Squamous Epith Cells 0-4 /hpf (0-5) H 06/23/25 09:42 Amorphous Sediment Not Reportable 06/23/25 09:42 Urine Bacteria Trace /hpf (NONE) 06/23/25 09:42 Serum Ketones Positive (Negative) H 06/23/25 11:30 Influenza A (PCR) Negative (Negative) 06/23/25 09:43 Influenza Type B (PCR) Negative (Negative) 06/23/25 09:43 RSV (PCR) Negative (Negative) 06/23/25 09:43 SARS-CoV-2 (PCR) Negative (Negative) 06/23/25 09:43 Vitals Last Vital Signs Temp 97.8 F 06/23/25 14:00 Pulse 108 H 06/23/25 15:00 Resp 15 06/23/25 15:00 BP 127/78 06/23/25 15:00 Pulse Ox 97 06/23/25 15:00 O2 Del Method Room Air 06/23/25 15:00 Discharge Plan Discharge Patient Disposition: Left Against Medical Advice Condition: Stable Prescriptions: No Action insulin lispro 100 unit/mL solution See Rx Instructions .ROUTE .COMPLEX Qty: 130 0RF Dose Instruction: USE 150 UNITS VIA INSULIN PUMP DAILY Rx Instructions: USE 150 UNITS VIA INSULIN PUMP DAILY (DME) pen needle, diabetic [Comfort EZ Pen [place]] 32 gauge x 3/16 needle See Rx Instructions .Route Qty: 100 0RF Rx Instructions: As directed (DME) Omnipod 5 G6 Intro Kit (Gen 5) Cartridge See Rx Instructions .ROUTE .MEDSUPPLY Qty: 1 0RF Rx Instructions: As directed (DME) Dexcom G6 Social Media Campaign Manager Misc See Rx Instructions .ROUTE .MEDSUPPLY Qty: 1 0RF Rx Instructions: takes blood sugar (DME) Dexcom G6 Sensor Device See Rx Instructions .ROUTE .MEDSUPPLY Qty: 9 3RF Rx Instructions: Change every 10 days (DME) Dexcom G6 Transmitter Device See Rx Instructions .ROUTE .MEDSUPPLY Qty: 3 3RF Rx Instructions: change every 90 days (DME) strips See Rx Instructions .Route .MEDSUPPLY Qty: 1 3RF Rx Instructions: Check blood sugars 3 times daily, with meals, #200, 3 refills (DME) lancets Misc See Rx Instructions .Route Qty: 200 3RF Rx Instructions: check BS, TID with meals (DME) Omnipod 5 G6-G7 Pods (Gen 5) Cartridge See Rx Instructions .ROUTE .COMPLEX Qty: 15 0RF Dose Instruction: CHANGE POD EVERY 3 DAYS NEEDS APPOINTMENT FOR FURTHER REFILLS Rx Instructions: CHANGE POD EVERY 3 DAYS NEEDS APPOINTMENT FOR FURTHER REFILLS (DME) insulin syringes (disposable) 1 mL syringe See Rx Instructions .ROUTE .MEDSUPPLY Qty: 500 3RF Rx Instructions: use syringe to inject insulin six times a day insulin glargine [Lantus Solostar U-100 Insulin] 100 unit/mL (3 mL) insulin pen See Rx Instructions .ROUTE .COMPLEX Qty: 45 0RF Dose Instruction: INJECT 35 UNITS SUBCUTANEOUSLY ONCE DAILY Rx Instructions: INJECT 35 UNITS SUBCUTANEOUSLY ONCE DAILY (DME) blood sugar diagnostic Strip See Rx Instructions .Route Qty: 100 0RF Rx Instructions: As directed (DME) Blood Glucose Test Strip See Rx Instructions .Route Qty: 100 0RF Rx Instructions: As directed (DME) blood-glucose meter [Blood Glucose Monitoring] Kit See Rx Instructions .Route Qty: 1 0RF Rx Instructions: As directed (DME) strips See Rx Instructions .Route .MEDSUPPLY Qty: 200 3RF Rx Instructions: Check blood sugars 3 times daily, before meals (DME) lancets See Rx Instructions .Route .MEDSUPPLY Qty: 200 1RF Rx Instructions: Check blood sugars 3 times daily, before meals Referrals: Earlene Titus FNP-C [Primary Care Provider, Family Practice] Patient Instructions: Opioid Safety, Patient Portal & Conrado Instructions Discharge Attestations Time Spent in Discharge Care*: less than 30 min Status at Discharge: Cognitive status at discharge: cognitively intact, Behavioral status at discharge: cooperative, Quality Metrics Clinical Quality Measures [ No reported AMI, CVA or VTE this stay] Coding Level of Care Code Acute Code for Chg Fwd Diagnoses DKA (diabetic ketoacidosis) E10.10 Diabetes mellitus complication detail: without coma Diabetes mellitus type: type 1
== END 2025-06-23 15:16 | disposition left against medical advice (07) ==
LOC: ER 10:42 → ICU 11:44
PROVIDERS: Admitting Provider Internal Medicine; Emergency Provider Emergency Medicine; PCP Nurse Practitioner Family; Visit Provider Internal Medicine
DX: E10.10 Type 1 diabetes mellitus with ketoacidosis without coma (principal); Z79.4 Long term (current) use of insulin; K21.9 Gastro-esophageal reflux disease without esophagitis; F15.11 Other stimulant abuse, in remission
CPT/HCPCS: 36415; 36416; 36600; 80048; 80051; 80053; 81001; 82009; 82330; 82805; 82962; 83605; 83735; 84100; 85025; 87637; 93005; G0378; J2405; J7030; J9999

== ENCOUNTER 2025-06-25 04:51 | Emergency (ER) | payer OTHER, MEDICAID, SELFPAY ==
[2025-06-25] VITALS (7 sets, daily range): BP systolic 116–148; BP diastolic 63–92; PULSE 75–102; RESP 15–18; TEMP 37.1; O2SAT 97–100; BMI 22.4
--- OUTSIDE RECORDS SUMMARY | 2025-06-25 04:57 | XMS_ITS | Encounter Summary ---
Author Organization [facility] Address [address] [place] [address] Care Team Providers Care Ssn/Ssbn Weapons Equipment Operator Name Role Phone Ulisses Bui MD Primary Care Provider [phone] Encounter Details Date Type Department Care Team (Late st Contact Info) Description 11/22/2018 Ancillary Orders [facility] Pre-Registration [place] CALL TO MAKE APPOINTMENT ONLY [address] [place] [address] Dave Valera MD [address] [place] [address] Demand ischemia (CMS/HCC); Acute kidney injury; DKA [...] uncontrolled documented in this encounter Care Teams Ssn/Ssbn Weapons Equipment Operator Relationship Specialty Start Date End Date Ulisses Bui MD [address] [phone] PCP - General Endocrinology 06/07/16 documented as of this encounter
--- OUTSIDE RECORDS SUMMARY | 2025-06-25 04:57 | XMS_ITS | Encounter Summary ---
Author Organization [facility] Address [address] [place] [address] Care Team Providers Care Tube Worker Name Role Phone Ulisses Bui MD Primary Care Provider [phone] Reason for Referral * CT Scan (Routine) - Closed Specialty Diagnoses / Procedures Referred By Contmery t Referred To Contact Diagnoses Demand ischemia (CMS/HCC) Procedures CT CARDIAC CHEST INTERPRETATION Dave Valera MD [address] [place] [address] Phone: tel: Referral ID Status Reason Start Date Expiration Date Visits Re quested Visits Authorized [id number] Closed 05/09/2019 06/08/2020 1 1 Encounter Details Date Type Department Care Team (Late st Contact Info) Description 05/09/2019 Ancillary Orders [facility] Pre-Registration [place] CALL TO MAKE APPOINTMENT ONLY [address] [place] [id number] Dave Valera MD [address] [place] [address] Demand ischemia (CMS/HCC) Social History Tobacco Use [...] PET/CT would be recommended for further workup. [id number] Narrative 05/10/2019 6:[address] CARDIAC [...] PET/CT would be recommended for further workup. 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
--- OUTSIDE RECORDS SUMMARY | 2025-06-25 04:57 | XMS_ITS | Clinical Summary ---
Author Organization [facility] Address [address] [address] Phone Care Team Providers Care Cloth Neutralizer Name Role Phone Ulisses Bui MD Primary Care Provider [phone] Allergies Active Allergy Reactions Criticality Noted Date [...] 2024 INFLUENZA VACCINE (#1) 2025 Insurance [place]ICAID [place] MEDICARE PART A AND B Care Teams Cloth Neutralizer Relationship Specialty Start Date End Date Ulisses Bui MD [address] [phone] PCP - General Endocrinology 06/07/16
--- OUTSIDE RECORDS SUMMARY | 2025-06-25 04:57 | XMS_ITS | Clinical Summary ---
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
--- OUTSIDE RECORDS SUMMARY | 2025-06-25 04:57 | XMS_ITS | Encounter Summary ---
Author Organization [facility] Address [address] [place] [address] Care Team Providers Care Offset Duplicating Machine Operator Name Role Phone Ulisses Bui MD Primary Care Provider [phone] Reason for Referral * CT Scan (Routine) - Closed Specialty Diagnoses / Procedures Referred By Melodie jennings Referred To Contact Radiology Diagnoses Demand ischemia (CMS/HCC) Procedures [facility] Dave Valera MD [address] [place] [address] Phone: tel: [facility] CT Scan [address] [place] [address] Phone: tel: fax: Referral ID Status Reason Start Date Expiration Date V isits Requested Visits Authorized [id number] Closed [facility] TO SCHEDULE (SGF) 05/09/2019 06/08/2019 1 1 Encounter Details Date Type Department Care Team (Late st Contact Info) Description 04/12/2019 Ancillary Orders [facility] Pre-Registration [place] CALL TO MAKE APPOINTMENT ONLY [address] [place] [address] Dave Valera MD [address] [place] [address] Demand ischemia (CMS/HCC) Social History Tobacco Use [...] comparison. . Indication: This is a 24 [id number] Male with chest discomfort. Concerns for obstructive coronary artery disease.. The study is performed in an attempt to avoid an invasive procedure. Technique: Spiral acquisition during intravenous contrast administration using a 64-slice GE CT scan. Multi-planar 3-D volume-rendering reconstruction was performed using a [employer] work station. Consecutive thin slices (< 1mm) [...] comparison. . Indication: This is a 24 [id number] Male with chest discomfort. Concerns for obstructive coronary artery disease.. The study is performed in an attempt to avoid an invasive procedure. Technique: Spiral acquisition during intravenous contrast administration using a 64-slice GE CT scan. Multi-planar 3-D volume-rendering reconstruction was performed using a [employer] work station. Consecutive thin slices (< 1mm) [...] disease documented in this encounter Care Teams Offset Duplicating Machine Operator Relationship Specialty Start Date End Date Ulisses Bui MD [address] [phone] PCP - General Endocrinology 06/07/16 documented as of this encounter
[2025-06-25 05:06] LABS: Hematocrit 43.2 % (37-53); Hemoglobin 15.10 g/dL (11.27-16.99); Mean Corpuscular HGB Conc 35.0 g/dL (30-55); Mean Corpuscular Hemoglobin 31.1 pg (27-33); Mean Corpuscular Volume 89.1 fl (82-101); Nucleated Red Blood Cells % 0 %; Platelet Count 247 10^3/cmm (157-399); Red Blood Count 4.85 10^6/uL (3.85-5.65); White Blood Count 15.33 10^3/uL (3.29-11.43)
[2025-06-25 05:10] LABS: Glucose Urine UA Trace (Normal); Nitrate Urine Negative (Negative)
[2025-06-25 05:11] LABS: Base Excess VBG -7.9 mmol/L (-3.0-3.0); Blood Gas Allen Test Pos; Blood Gas Operator Identificat BD; Blood Gas Sample Site VEIN; Blood Gas Sample Type Venous; HCO3 VBG 16.5 mmol/L (24-28); PCO2 VBG 30.8 mmHg (41-51); PO2 VBG 42.5 mmHg (25-40); Venous Blood Gas Hematocrit 47.4 % (42-52); pH VBG 7.34 (7.32-7.42)
--- NOTE | 2025-06-25 05:14 | ED_ITS ---
HPI - General Adult 2 General: Chief complaint: Nausea/Vomiting/Diarrhea Stated complaint: n/v Time Seen by Provider: 06/25/25 04:52 History of Present Illness: Patient is a 30-year-old male with a past medical history of insulin-dependent diabetes with a chief complaint of periumbilical abdominal pain, nausea and vomiting since yesterday. He states his sugar at home has been running in the 200s and per EMS, glucose was 139. He has not had a fever, denies runny nose, sore throat, cough, chest pain, shortness of breath, syncope. He has not had any diarrhea, blood in stool or constipation. Patient denies dysuria or hematuria. He denies any previous history abdominal surgeries. He does not drink alcohol though he occasionally smokes marijuana, states he smoked last a couple days ago. He denies any illicit drug use. Related Data Previous Rx's ?Medication ?Instructions ?Recorded blood sugar diagnostic #100 ea 03/20/21 blood sugar diagnostic (Blood #100 ea 03/20/21 Glucose Test strips) blood-glucose meter (Blood Glucose #1 03/20/21 Monitoring kit) lancets #200 ea 05/17/21 strips #200 ea 05/17/21 lancets #200 ea 06/18/21 strips #1 ea 06/18/21 blood-glucose sensor (Dexcom G6 #9 10/18/22 Sensor device) blood-glucose transmitter (Dexcom #3 ea 10/18/22 G6 Transmitter device) blood-glucose,prison guard supervisor,cont #1 ea 10/18/22 (Dexcom G6 Audio/Visual Operator) insulin pump cartridge,automated #1 ea 10/18/22 dose,BT with controller subcutaneous (Omnipod 5 G6 Intro Kit (Gen 5) subcutaneous cartridge with controller) insulin pump cart,auto,BT,G6/7 #15 ea 03/14/25 (Omnipod 5 G6-G7 Pods (Gen 5) subcutaneous cartridge) insulin lispro 100 unit/mL See Rx Instructions .Route 03/20/25 subcutaneous solution .COMPLEX #130 mL pen needle, diabetic 32 gauge x #100 ea 03/20/2511/18 (Comfort EZ Pen Campo) insulin syringes (disposable) 1 mL #500 ea 04/01/25 insulin glargine 100 unit/mL (3 See Rx Instructions .R oute 08/22/25 mL) subcutaneous pen (Lantus .COMPLEX #45 mL Solostar U-100 Insulin) metoclopramide HCl 10 mg tablet 10 mg PO Q6H nausea an d vomiting 3 06/25/25 (Reglan) days #12 tabs Allergies Allergy/AdvReac Type Severity Reaction Status Date / Time promethazine (From Phenergan) Allergy Unknown Verified 06/25/25 04:57 PFSH ED 2 PFSH: Medical History (Updated 06/25/25 @ 06:11 by Jeanne Jackson MD) Abdominal pain High anion gap metabolic acidosis DKA (diabetic ketoacidosis) Diabetic keto-acidosis Hyperglycemia Nausea & vomiting Noncompliance with diabetes treatment Methamphetamine abuse DKA (diabetic ketoacidoses) History of pancreatitis Long-term insulin use Hypoglycemia due to insulin Uncontrolled type 1 diabetes mellitus Pancreatitis Marijuana use GERD (gastroesophageal reflux disease) Type 1 diabetes With recurrent admissions for DKA, severe Surgical History No pertinent past surgical history Family History Other Diabetes Social History Smoking and tobacco/nicotine status: never used tobacco/nicotine Alcohol intake: never Substance/Drug Use: former Date of last use: Marijuana abuse Lives independently: Yes Household members: family Marital status: Single Current occupational status: disabled Physical Exam 2 Narrative: EXAM NARRATIVE: Vital signs were reviewed. Patient is alert and oriented. Patient is breathing comfortably, no increased WOB or accessory muscle use. SpO2 is above 95% on RA. Patient has clear lungs b/l, no rhonchi, wheezing or crackles. No hypotension or tachycardia. Abdomen is soft, nondistended and nontender. Specifically, negative Funes sign, no pain over the McBurney's point. No CVA tenderness with percussion of the flanks. Patient is moving all extremities, no deformity or gross injury. No lower extremity edema or asymmetry. Course 2 Vital Signs: Vital signs: Vital Signs Temperature 98.7 F 06/25/25 04:51 Pulse Rate 89 06/25/25 06:00 Respiratory Rate 16 06/25/25 05:30 Blood Pressure 141/89 06/25/25 06:00 Pulse Oximetry 100 06/25/25 06:00 Oxygen Delivery Me thod Room Air 06/25/25 06:00 MDM - General Adult Medical Decision Making 22-year-old male with insulin-dependent type 2 diabetes with a chief complaint of periumbilical abdominal pain, nausea and vomiting since yesterday. Differential diagnosis includes, but is not limited to, pancreatitis, cholecystitis, gastroenteritis, gastroparesis, appendicitis, urinary tract infection, pyelonephritis, nephrolithiasis, diverticulitis, dehydration, cannabis hyperemesis, other. On initial exam, patient is hemodynamically stable and nontoxic appearing. Patient was evaluated with CBC, CMP, lipase, UA. Patient was treated w/IV reglan and IV fluids. On reassessment, patient is feeling significantly improved and is no longer feeling nauseated, is asking for something to eat. His lab work reveals an elevated white blood cell count. Patient does not have acidemia, has a normal pH. Patient has only mildly elevated glucose. Patient has normal kidney function, no electrolyte abnormalities. Patient does have elevated anion gap and decreased bicarb which is suspected due to dehydration and vomiting. I suspect that marijuana may exacerbate patient's symptoms though given his diabetes, he also may have gastroparesis. At this time, patient is feeling well enough to go home. Patient was counseled on supportive care at home, given return precautions and was discharged in stable condition with recommendation for close follow-up with PCP and recheck of lab work in 48 to 72 hours. Lab Data 06/25/25 04:59 06/25/25 04:59 Laboratory Results WBC 15.33 10^3/uL (3.29-11.43) H 06/25/25 04:59 RBC 4.85 10^6/uL (3.85-5.65) 06/25/25 04:59 Hgb 15.10 g/dL (11.27-16.99) 06/25/25 04:59 Hct 43.2 % (37-53) 06/25/25 04:59 MCV 89.1 fl (82-101) 06/25/25 04:59 MCH 31.1 pg (27-33) 06/25/25 04:59 MCHC 35.0 g/dL (30-55) 06/25/25 04:59 RDW 13.2 % (12.1-15.1) 06/25/25 04:59 Plt Count 247 10^3/cmm (157-399) 06/25/25 04:59 MPV 9.2 fL (7.4-10.4) 06/25/25 04:59 Neut % (Auto) 87.1 % 06/25/25 04:59 Lymph % (Auto) 3.8 % 06/25/25 04:59 [place] % (Auto) 8.3 % 06/25/25 04:59 Eos % (Auto) 0.0 % 06/25/25 04:59 Baso % (Auto) 0.2 % 06/25/25 04:59 Neut # (Auto) 13.35 10^3/uL (1.8-7.7) H 06/25/25 04:59 Lymph # (Auto) 0.6 10^3/uL (0.8-4.8) L 06/25/25 04:59 [place] # (Auto) 1.3 10^3/uL (0.2-0.9) H 06/25/25 04:59 Eos # (Auto) 0.0 10^3/uL (0.0-0.8) 06/25/25 04:59 Baso # (Auto) 0.0 10^3/uL (0.0-0.1) 06/25/25 04:59 Nucleated RBC % (auto) 0 % 06/25/25 04:59 Nucleated RBCs # 0.0 /100WBC 06/25/25 04:59 Specimen Type Venous 06/25/25 05:00 Sample Site Vein 06/25/25 05:00 Hasmukh Test Pos 06/25/25 05:00 VBG pH 7.34 (7.32-7.42) 06/25/25 05:00 VBG pCO2 30.8 mmHg (41-51) L 06/25/25 05:00 VBG pO2 42.5 mmHg (25-40) H 06/25/25 05:00 VBG HCO3 16.5 mmol/L (24-28) L 06/25/25 05:00 VBG Base Excess -7.9 mmol/L (-3.0-3.0) L 06/25/25 05:00 VBG Hematocrit 47.4 % (42-52) 06/25/25 05:00 Instructor Apparel Manufacture ID Bd 06/25/25 05:00 Sodium 137 mmol/L (136-145) 06/25/25 04:59 Potassium 3.6 mmol/L (3.5-5.1) 06/25/25 04:59 Chloride 100 mmol/L (98-107) 06/25/25 04:59 Carbon Dioxide 13 mmol/L (22-29) L 06/25/25 04:59 Anion Gap 27.6 (5-19) H 06/25/25 04:59 BUN 9 mg/dL (6-20) 06/25/25 04:59 Creatinine 0.6 mg/dL (0.7-1.2) L 06/25/25 04:59 GFR Calculation 160.4 mL/min (90-130) H 06/25/25 04:59 Glucose 144 mg/dL (65-115) H 06/25/25 04:59 Calculated Osmolality 285 mOsm/kg (285-295) 06/25/25 04:59 Calcium 9.0 mg/dL (8.5-10.5) 06/25/25 04:59 Total Bilirubin 0.8 mg/dL (0.15-1.2) 06/25/25 04:59 AST 14 U/L (0-40) 06/25/25 04:59 ALT 15 U/L (0-41) 06/25/25 04:59 Alkaline Phosphatase 46 U/L (40-130) 06/25/25 04:59 Total Protein 6.9 g/dL (6.6-8.7) 06/25/25 04:59 Albumin 4.4 g/dL (3.5-5.2) 06/25/25 04:59 Globulin 2.5 g/dL (1.3-4.6) 06/25/25 04:59 Lipase 15 U/L (13-60) 06/25/25 04:59 Urine Color Yellow (Yellow) 06/25/25 05:00 Urine Appearance Clear (CLEAR) 06/25/25 05:00 Urine pH 6.5 (5-7) 06/25/25 05:00 Ur Specific Grady 1.034 (1.005-1.030) H 06/25/25 05:00 Urine Protein 2+ (Negative) A 06/25/25 05:00 Urine Glucose (UA) Trace (Normal) H 06/25/25 05:00 Urine Ketones 4+ (Negative) 06/25/25 05:00 Urine Blood Negative (Negative) 06/25/25 05:00 Urine Nitrate Negative (Negative) 06/25/25 05:00 Urine Bilirubin Negative (Negative) 06/25/25 05:00 Urine Urobilinogen 1.0 mg/dL (Negative) 06/25/25 05:00 Ur Leukocyte Esterase Negative (Negative) 06/25/25 05:00 Urine RBC None /hpf (0-2) 06/25/25 05:00 Urine WBC None /hpf (0-5) 06/25/25 05:00 Ur Squamous Epith Cells None /hpf (0-5) 06/25/25 05:00 Other Crystals Amm biurate /hpf 06/25/25 05:00 Amorphous Sediment Not Reportable 06/25/25 05:00 Urine Bacteria None /hpf (NONE) 06/25/25 05:00 Urine Mucus 2+ /hpf 06/25/25 05:00 No radiology studies performed this visit Discharge Plan Discharge Patient Disposition: Home Clinical Impression: Acute dehydration, Cannabis abuse Nausea & vomiting Qualifiers: Vomiting type: unspecified Qualified Code(s): R11.2 - Nausea with vomiting, unspecified Condition: Stable Prescriptions: New metoclopramide HCl [Reglan] 10 mg tablet 10 mg PO Q6H 3 Days Qty: 12 0RF No Action insulin lispro 100 unit/mL solution See Rx Instructions .ROUTE .COMPLEX Qty: 130 0RF Dose Instruction: USE 150 UNITS VIA INSULIN PUMP DAILY Rx Instructions: USE 150 UNITS VIA INSULIN PUMP DAILY (DME) pen needle, diabetic [Comfort EZ Pen Campo] 32 gauge x 3/16 needle See Rx Instructions .Route Qty: 100 0RF Rx Instructions: As directed (DME) Omnipod 5 G6 Intro Kit (Gen 5) Cartridge See Rx Instructions .ROUTE .MEDSUPPLY Qty: 1 0RF Rx Instructions: As directed (DME) Dexcom G6 Audio/Visual Operator Misc See Rx Instructions .ROUTE .MEDSUPPLY Qty: 1 0RF Rx Instructions: takes blood sugar (DME) Dexcom G6 Sensor Device See Rx Instructions .ROUTE .MEDSUPPLY Qty: 9 3RF Rx Instructions: Change every 10 days (DME) Dexcom G6 Transmitter Device See Rx Instructions .ROUTE .MEDSUPPLY Qty: 3 3RF Rx Instructions: change every 90 days (DME) strips See Rx Instructions .Route .MEDSUPPLY Qty: 1 3RF Rx Instructions: Check blood sugars 3 times daily, with meals, #200, 3 refills (DME) lancets Misc See Rx Instructions .Route Qty: 200 3RF Rx Instructions: check BS, TID with meals (DME) Omnipod 5 G6-G7 Pods (Gen 5) Cartridge See Rx Instructions .ROUTE .COMPLEX Qty: 15 0RF Dose Instruction: CHANGE POD EVERY 3 DAYS NEEDS APPOINTMENT FOR FURTHER REFILLS Rx Instructions: CHANGE POD EVERY 3 DAYS NEEDS APPOINTMENT FOR FURTHER REFILLS (DME) insulin syringes (disposable) 1 mL syringe See Rx Instructions .ROUTE .MEDSUPPLY Qty: 500 3RF Rx Instructions: use syringe to inject insulin six times a day insulin glargine [Lantus Solostar U-100 Insulin] 100 unit/mL (3 mL) insulin pen See Rx Instructions .ROUTE .COMPLEX Qty: 45 0RF Dose Instruction: INJECT 35 UNITS SUBCUTANEOUSLY ONCE DAILY Rx Instructions: INJECT 35 UNITS SUBCUTANEOUSLY ONCE DAILY (DME) blood sugar diagnostic Strip See Rx Instructions .Route Qty: 100 0RF Rx Instructions: As directed (DME) Blood Glucose Test Strip See Rx Instructions .Route Qty: 100 0RF Rx Instructions: As directed (DME) blood-glucose meter [Blood Glucose Monitoring] Kit See Rx Instructions .Route Qty: 1 0RF Rx Instructions: As directed (DME) strips See Rx Instructions .Route .MEDSUPPLY Qty: 200 3RF Rx Instructions: Check blood sugars 3 times daily, before meals (DME) lancets See Rx Instructions .Route .MEDSUPPLY Qty: 200 1RF Rx Instructions: Check blood sugars 3 times daily, before meals Discharge Orders: Discharge ED (Routine); Ordered 06/25/25 Ordered By: Jeanne Jackson Referrals: Earlene Titus FNP-C [Primary Care Provider, Family Practice] Patient Instructions: Opioid Safety, Pain Management, Patient Portal & [place]ado Instructions, Acute Nausea and Vomiting (DC), Cannabis Use Disorder (ED) Activity Restrictions/Additional Instructions: You may take Zofran for nausea and vomiting. If this does not relieve your symptoms, you may take Reglan. Please continue to hydrate at home with Pedialyte, low sugar Gatorade or broth. Continue to monitor your condition closely at home. If your condition worsens or additional concerns arise, please return to the emergency department for reassessment. Otherwise, please follow- up with your primary care physician within 72 hours. Please understand that marijuana may exacerbate your symptoms. Avoid any marijuana use if possible. Print Language: Malagasy Coding Level of Care Code ED Installation And Repair Technician for Maxx Mohr
[2025-06-25 05:26] LABS: Alanine Aminotransferase 15 U/L (0-41); Albumin Level 4.4 g/dL (3.5-5.2); Alkaline Phosphatase 46 U/L (40-130); Anion Gap 27.6 (5-19); Aspartate Amino Transferase 14 U/L (0-40); Blood Urea Nitrogen 9 mg/dL (6-20); Calcium 9.0 mg/dL (8.5-10.5); Carbon Dioxide 13 mmol/L (22-29); Chloride 100 mmol/L (98-107); Creatinine Clr Calc Pharmacy 159.1696; Globulin 2.5 g/dL (1.3-4.6); Glucose 144 mg/dL (65-115); Lipase 15 U/L (13-60); Osmolality Calculated 285 mOsm/kg (285-295); Potassium 3.6 mmol/L (3.5-5.1); Sodium 137 mmol/L (136-145); Total Protein 6.9 g/dL (6.6-8.7)
[2025-06-25] MEDS: metoclopramide 5 mg/mL SDV 2 mL 10 MG IVP (05:26)
[2025-06-25 05:43] LABS: Add Urine Microscopic? YES; Other Crystals Urine AMM BIURATE /hpf; Specific Gravity, Urine 1.034 (1.005-1.030); UA Slide Review UA Slide Review Perf
== END 2025-06-25 07:17 | disposition home or self-care (01) ==
PROVIDERS: Emergency Provider Emergency Medicine; PCP Nurse Practitioner Family
DX: E86.0 Dehydration (principal); F12.10 Cannabis abuse, uncomplicated; R11.2 Nausea with vomiting, unspecified; Z79.4 Long term (current) use of insulin; E10.9 Type 1 diabetes mellitus without complications
CPT/HCPCS: 80053; 81001; 82010; 82803; 83690; 85025; 96374; 99284; J2765; J7120

== ENCOUNTER 2025-08-31 05:42 | Inpatient (IN) | payer MEDICARE, MEDICAID, SELFPAY ==
[2025-08-31] VITALS (47 sets, daily range): BP systolic 101–146; BP diastolic 56–91; PULSE 89–134; RESP 16–33; TEMP 36.7–37.1; O2SAT 96–100; BMI 26.6
--- OUTSIDE RECORDS SUMMARY | 2025-08-31 05:54 | XMS_ITS | Clinical Summary ---
Author Organization [facility] Address [address] [address] Phone Care Team Providers Care Grease Rack Worker Name Role Phone Ulisses Bui MD [...] 3-dose series) 03/05 INFLUENZA VACCINE (#1) 2025 HPV VACCINES (No Doses Required) Completed Insurance MEDICAID [place] MEDICARE PART A AND B Care Teams Grease Rack Worker Relationship Specialty Start Date End Date Ulisses Bui MD [address] [phone] PCP - General Endocrinology 06/07/16
--- OUTSIDE RECORDS SUMMARY | 2025-08-31 05:54 | XMS_ITS | Encounter Summary ---
Author Organization [facility] Address [address] [place] [address] Care Team Providers Care Insurance Loss Adjuster Name Role Phone Ulisses Bui MD Primary Care Provider [phone] Reason for Referral * CT Scan (Routine) - Closed Specialty Diagnoses / Procedures Referred By Melodie t Referred To Contact Radiology Diagnoses Demand ischemia (CMS/HCC) Procedures [facility] Dave Valera MD [address] [place] [address] Phone: tel: [facility] CT Scan [address] [place] [address] Phone: tel: fax: Referral ID Status Reason Start Date Expiration Date V isits Requested Visits Authorized [id number] Closed [facility] TO SCHEDULE (SGF) 05/09/2019 06/08/2019 1 1 Encounter Details Date Type Department Care Team (Late st Contact Info) Description 04/12/[address] [facility] Pre-Registration [place] CALL TO MAKE APPOINTMENT ONLY [address] [place] [address] Dave Valera MD [address] [place] [address] Demand ischemia (CMS/HCC) Social History Tobacco Use [...] comparison. . Indication: This is a 24 [id number] Male with chest discomfort. Concerns for obstructive coronary artery disease.. The study is performed in an attempt to avoid an invasive procedure. Technique: Spiral acquisition during intravenous contrast administration using a 64-slice GE CT scan. Multi-planar 3-D volume-rendering reconstruction was performed using a [employer] work station. Consecutive thin slices (< 1mm) [...] comparison. . Indication: This is a 24 [id number] Male with chest discomfort. Concerns for obstructive coronary artery disease.. The study is performed in an attempt to avoid an invasive procedure. Technique: Spiral acquisition during intravenous contrast administration using a 64-slice GE CT scan. Multi-planar 3-D volume-rendering reconstruction was performed using a [employer] work station. Consecutive thin slices (< 1mm) [...] disease documented in this encounter Care Teams Insurance Loss Adjuster Relationship Specialty Start Date End Date Ulisses Bui MD [address] [phone] PCP - General Endocrinology 06/07/16 documented as of this encounter
--- OUTSIDE RECORDS SUMMARY | 2025-08-31 05:54 | XMS_ITS | Encounter Summary ---
Author Organization [facility] Address [address] [facility] [place] [address] Care Team Providers Care Government Professor Name Role Phone Ulisses Bui MD Primary Care Provider [phone] Reason for Referral * CT Scan (Routine) - Closed Specialty Diagnoses / Procedures Referred By Melodie t Referred To Contact Diagnoses Demand ischemia (CMS/HCC) Procedures CT CARDIAC CHEST INTERPRETATION Dave Valera MD [address] [place] [address] Phone: tel: Referral ID Status Reason Start Date Expiration Date Visits Re quested Visits Authorized [id number] Closed 05/09/2019 06/08/2020 1 1 Encounter Details Date Type Department Care Team (Late st Contact Info) Description 05/09/2019 Ancillary Orders [facility] Pre-Registration [place] CALL TO MAKE APPOINTMENT ONLY [address] [place] [phone] Dave Valera MD [address] [place] [address] Demand ischemia (CMS/HCC) Social History Tobacco Use [...] PET/CT would be recommended for further workup. [id number] Narrative 05/10/2019 6:[address] CARDIAC [...] PET/CT would be recommended for further workup. [id number] ORDERABLES Final Resu lt documented in this encounter Visit Diagnoses Diagnosis Demand ischemia (CMS/HCC) Other acute and subacute form of ischemic heart disease Demand ischemia (CMS/HCC) Other acute and subacute form of ischemic heart disease documented in this encounter Care Teams Government Professor Relationship Specialty Start Date End Date Ulisses Bui MD [address] [phone] PCP - General Endocrinology 06/07/16 documented as of this encounter
--- OUTSIDE RECORDS SUMMARY | 2025-08-31 05:54 | XMS_ITS | Encounter Summary ---
Author Organization [facility] Address [address] [place] [address] Care Team Providers Care Preservationist Name Role Phone Ulisses Bui MD Primary Care Provider [phone] Encounter Details Date Type Department Care Team (Late st Contact Info) Description 11/22/2018 Ancillary Orders [facility] Pre-Registration [place] CALL TO MAKE APPOINTMENT ONLY [address] [place] [address] Dave Valera MD [address] [place] [address] Demand ischemia (CMS/HCC); Acute kidney injury; DKA [...] uncontrolled documented in this encounter Care Teams Preservationist Relationship Specialty Start Date End Date Ulisses Bui MD [address] [facility] [address] [phone] PCP - General Endocrinology 06/07/16 documented as of this encounter
--- OUTSIDE RECORDS SUMMARY | 2025-08-31 05:54 | XMS_ITS | Clinical Summary ---
Author Organization [facility] Address [address] 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
[2025-08-31 06:03] LABS: Hematocrit 51.3 % (37-53); Hemoglobin 17.20 g/dL (11.27-16.99); Mean Corpuscular HGB Conc 33.5 g/dL (30-55); Mean Corpuscular Hemoglobin 30.9 pg (27-33); Mean Corpuscular Volume 92.3 fl (82-101); Nucleated Red Blood Cells % 0 %; Platelet Count 351 10^3/cmm (157-399); Red Blood Count 5.56 10^6/uL (3.85-5.65); White Blood Count 12.11 10^3/uL (3.29-11.43)
--- NOTE | 2025-08-31 06:04 | ED_ITS ---
HPI - Recheck/Abnormal Lab/Rx 2 General: Chief Complaint: Recheck/Abnormal Lab/Rx Stated Complaint: vomiting Time Seen by Provider: 08/31/25 05:56 Source: patient and EMS Mode of arrival: EMS Limitations: no limitations History of Present Illness: 30-year-old male with right well-known t o the ER has a history of type 1 diabetes has been seen here multiple times for DKA in the past states has had vomiting throughout the night along with elevated blood glucose levels. He denies any pain denies any fevers denies any worsening or improving factors. Glucose here is 249 Related Data Previous Rx's ?Medication ?Instructions ?Recorded blood sugar diagnostic #100 ea 03/20/21 blood sugar diagnostic (Blood #100 ea 03/20/21 Glucose Test strips) blood-glucose meter (Blood Glucose #1 03/20/21 Monitoring kit) lancets #200 ea 05/17/21 strips #200 ea 05/17/21 lancets #200 ea 06/18/21 strips #1 ea 06/18/21 blood-glucose sensor (Dexcom G6 #9 10/18/22 Sensor device) blood-glucose transmitter (Dexcom #3 ea 10/18/22 G6 Transmitter device) blood-glucose,pt sitter,cont #1 10/18/22 (Dexcom G6 Tank House Operator Helper) insulin pump cartridge,automated #1 10/18/22 dose,BT with controller subcutaneous (Omnipod 5 G6 Intro Kit (Gen 5) subcutaneous cartridge with controller) insulin pump cart,auto,BT,G6/7 #15 ea 03/14/25 (Omnipod 5 G6-G7 Pods (Gen 5) subcutaneous cartridge) pen needle, diabetic 32 gauge x #100 ea 03/20/2511/18 (Comfort EZ Pen [place]) insulin syringes (disposable) 1 mL #500 ea 04/01/25 insulin glargine 100 unit/mL (3 See Rx Instructions .R oute 04/26/25 mL) subcutaneous pen (Lantus .COMPLEX #45 mL Solostar U-100 Insulin) insulin lispro 100 unit/mL See Rx Instructions .Route 07/29/25 subcutaneous solution .COMPLEX #130 mL Allergies Allergy/AdvReac Type Severity Reaction Status Date / Time promethazine (From Phenergan) Allergy Unknown Verified 08/31/25 05:51 Review of Systems 2 GI: Reports: vomiting PFSH ED 2 PFSH: Medical History Abdominal pain High anion gap metabolic acidosis DKA (diabetic ketoacidosis) Diabetic keto-acidosis Hyperglycemia Nausea & vomiting Noncompliance with diabetes treatment Methamphetamine abuse DKA (diabetic ketoacidoses) History of pancreatitis Long-term insulin use Hypoglycemia due to insulin Uncontrolled type 1 diabetes mellitus Pancreatitis Marijuana use GERD (gastroesophageal reflux disease) Type 1 diabetes With recurrent admissions for DKA, severe Surgical History No pertinent past surgical history Family History Other Diabetes Social History Smoking and tobacco/nicotine status: never used tobacco/nicotine Alcohol intake: never Substance/Drug Use: former Date of last use: Marijuana abuse Lives independently: Yes Household members: family Marital status: Single Current occupational status: disabled Physical Exam 2 Const: COMMON NORMALS: patient oriented x3 HENMT: COMMON NORMALS: normocephalic and atraumatic HEAD & SCALP: n ormocephalic and atraumatic Eye: COMMON NORMALS: Equal, round and reactive pupils present and EOMs intact bilaterally PUPIL: Yes Equal, round and reactive pupils present Neck/C-Spine: COMMON NORMALS: full ROM and supple Chest: COMMONS NORMALS: normal inspection of the chest and normal palpation of entire chest wall Resp: COMMON NORMALS: normal respiratory effort, No retractions, No use of accessory muscles and clear to auscultation bilaterally AUSCULTATION: clear to auscultation bilaterally Cardio: COMMON NORMALS: regular rate, regular rhythm and No murmurs present (Cardio) RATE: regular rate RHYTHM: regular rhythm GI: COMMON NORMALS: Normal to inspection, nondistended, normoactive bowel sounds present, Soft to palpation, non-tender and no masses PALPATION: Yes Soft to palpation Extremity: COMMON NORMALS: normal to inspection and full ROM Neuro: COMMON NORMALS: patient oriented x3, moves all extremities and no focal motor deficits Psych: COMMON NORMALS: mental status grossly normal, Normal thought process present and cooperative THOUGHT PROCESS: Normal thought process present Skin: COMMON NORMALS: no rashes or lesions noted and no wounds GENERAL SKIN EXAM: no rashes or lesions noted Course 2 Vital Signs: Vital signs: Vital Signs Temperature 98.1 F 08/31/25 05:45 Pulse Rate 111 H 08/31/25 06:06 Respiratory Rate 20 H 08/31/25 05:45 Blood Pressure 144/88 08/31/25 06:06 Pulse Oximetry 98 08/31/25 06:06 MDM - Recheck/Abnormal Lab/Rx Medical Decision Making Patient presents here with vomiting along with an elevated anion gap consistent with DKA. Did start patient on IV fluids along with an insulin drip spoke to hospitalist and will admit to the ICU. critical care time 35 minutes The high probability of a clinically significant, sudden or life threatening deterioration of the patient's endocrine system(s) required my full and direct attention, intervention and personal management. The critical care time is as shown. This time is in addition to time spent performing any reported procedures but includes the following: [x] Data and vital sign review and interpretation [x] Patient assessment, examination and intervention [x] Documentation [x] Medication orders and management Medical Records I reviewed the patient's medical records. Lab Data I reviewed the patient's lab results. 08/31/25 05:50 08/31/25 05:50 Laboratory Results WBC 12.11 10^3/uL (3.29-11.43) H 08/31/25 05:50 RBC 5.56 10^6/uL (3.85-5.65) 08/31/25 05:50 Hgb 17.20 g/dL (11.27-16.99) H 08/31/25 05:50 Hct 51.3 % (37-53) 08/31/25 05:50 MCV 92.3 fl (82-101) 08/31/25 05:50 MCH 30.9 pg (27-33) 08/31/25 05:50 MCHC 33.5 g/dL (30-55) 08/31/25 05:50 RDW 12.4 % (12.1-15.1) 08/31/25 05:50 Plt Count 351 10^3/cmm (157-399) 08/31/25 05:50 MPV 9.6 fL (7.4-10.4) 08/31/25 05:50 Neut % (Auto) 90.2 % 08/31/25 05:50 Lymph % (Auto) 5.9 % 08/31/25 05:50 Stevens % (Auto) 2.2 % 08/31/25 05:50 Eos % (Auto) 0.0 % 08/31/25 05:50 Baso % (Auto) 0.4 % 08/31/25 05:50 Neut # (Auto) 10.92 10^3/uL (1.8-7.7) H 08/31/25 05:50 Lymph # (Auto) 0.7 10^3/uL (0.8-4.8) L 08/31/25 05:50 Stevens # (Auto) 0.3 10^3/uL (0.2-0.9) 08/31/25 05:50 Eos # (Auto) 0.0 10^3/uL (0.0-0.8) 08/31/25 05:50 Baso # (Auto) 0.1 10^3/uL (0.0-0.1) 08/31/25 05:50 Nucleated RBC % (auto) 0 % 08/31/25 05:50 Nucleated RBCs # 0.0 /100WBC 08/31/25 05:50 Specimen Type Arterial 08/31/25 06:34 Sample Site Radial, left 08/31/25 06:34 ABG pH 7.15 (7.35-7.45) L* 08/31/25 06:34 ABG pCO2 16.7 mmHg (35-45) L* 08/31/25 06:34 ABG pO2 120.0 mmHg (80.0-100.0) H 08/31/25 06:34 ABG PO2/FiO2 Ratio 571 08/31/25 06:34 ABG HCO3 5.8 mmol/L (22-26) L 08/31/25 06:34 ABG Base Excess -20.7 mmol/L (-2.0-2.0) L 08/31/25 06:34 Hasmukh Test Pos 08/31/25 06:34 Hematocrit 49.5 % (42-52) 08/31/25 06:34 Hgb O2 Saturation 97.5 % (95-100) 08/31/25 06:34 Carboxyhemoglobin 1.0 %THgb (0.4-20.1) 08/31/25 06:34 Methemoglobin 0.2 % (0.4-1.5) L 08/31/25 06:34 Total Hemoglobin 16.1 g/dL (14-18) 08/31/25 06:34 O2 Delivery Device Room air 08/31/25 06:34 FiO2 21.0 % 08/31/25 06:34 Ac/Dc Rewinder ID enrrique 08/31/25 06:34 Sodium 131 mmol/L (136-145) L 08/31/25 05:50 Potassium 4.9 mmol/L (3.5-5.1) 08/31/25 05:50 Chloride 92 mmol/L (98-107) L 08/31/25 05:50 Carbon Dioxide 6 mmol/L (22-29) L* 08/31/25 05:50 Anion Gap 37.9 (5-19) H 08/31/25 05:50 BUN 18 mg/dL (6-20) 08/31/25 05:50 Creatinine 1.0 mg/dL (0.7-1.2) 08/31/25 05:50 GFR Calculation 89.0 mL/min (90-130) L 08/31/25 05:50 Glucose 288 mg/dL (65-115) H 08/31/25 05:50 POC Glucose 249 mg/dL (70-110) H 08/31/25 06:02 Calculated Osmolality 284 mOsm/kg (285-295) L 08/31/25 05:50 Calcium 9.4 mg/dL (8.5-10.5) 08/31/25 05:50 Phosphorus 3.8 mg/dL (2.5-4.5) 08/31/25 05:50 Magnesium 2.1 mg/dL (1.7-2.3) 08/31/25 05:50 Total Bilirubin 0.3 mg/dL (0.15-1.2) 08/31/25 05:50 AST 18 U/L (0-40) 08/31/25 05:50 ALT 19 U/L (0-41) 08/31/25 05:50 Alkaline Phosphatase 73 U/L (40-130) 08/31/25 05:50 Total Protein 8.9 g/dL (6.6-8.7) H 08/31/25 05:50 Albumin 5.3 g/dL (3.5-5.2) H 08/31/25 05:50 Globulin 3.6 g/dL (1.3-4.6) 08/31/25 05:50 No radiology studies performed this visit Critical Care Time 2 Critical Care Time: Critical Care Time: Yes Total Critical Care Time: 35 Attestation: The high probability of a clinically significant, sudden or life threatening deterioration of the patient's endocrine system(s) required my full and direct attention, intervention and personal management. The critical care time is as shown. This time is in addition to time spent performing any reported procedures but includes the following: [x] Data and vital sign review and interpretation [x] Patient assessment, examination and intervention [x] Documentation [x] Medication orders and management Discharge Plan Discharge Patient Disposition: Admitted As Inpatient Clinical Impression: DKA (diabetic ketoacidosis) Qualifiers: Diabetes mellitus type: type 1 Diabetes mellitus complication detail: without coma Qualified Code(s): E10.10 - Type 1 diabetes mellitus with ketoacidosis without coma Condition: Stable Coding Level of Care Code ED Manager Ethics for Maxx Mohr
[2025-08-31] MEDS: ondansetron 2 mg/ML SDV 2 mL 4 MG IVP ×2 (06:12→07:22)
[2025-08-31 06:19] LABS: Alanine Aminotransferase 19 U/L (0-41); Albumin Level 5.3 g/dL (3.5-5.2); Alkaline Phosphatase 73 U/L (40-130); Anion Gap 37.9 (5-19); Aspartate Amino Transferase 18 U/L (0-40); Blood Urea Nitrogen 18 mg/dL (6-20); Calcium 9.4 mg/dL (8.5-10.5); Chloride 92 mmol/L (98-107); Globulin 3.6 g/dL (1.3-4.6); Glucose 288 mg/dL (65-115); Magnesium 2.1 mg/dL (1.7-2.3); Osmolality Calculated 284 mOsm/kg (285-295); Potassium 4.9 mmol/L (3.5-5.1); Sodium 131 mmol/L (136-145); Total Protein 8.9 g/dL (6.6-8.7)
[2025-08-31 06:22] LABS: Carbon Dioxide 6 mmol/L (22-29)
[2025-08-31 06:44] LABS: Arterial Blood Gas Hematocrit 49.5 % (42-52); Blood Gas Allen Test Pos; Blood Gas Operator Identificat gerca; Blood Gas Sample Site Radial, left; Blood Gas Sample Type Arterial; Carboxyhemoglobin 1.0 %THgb (0.4-20.1); HCO3 ABG 5.8 mmol/L (22-26); Methemoglobin 0.2 % (0.4-1.5); PO2 ABG 120.0 mmHg (80.0-100.0); PO2 FiO2 Ratio Arterial Blood 571
[2025-08-31 06:45] LABS: ABG PCO2 16.7 mmHg (35-45); ABG PH Result 7.15 (7.35-7.45)
[2025-08-31] MEDS: INSULIN REGULAR IN 0.9 % NACL 100 UNIT/100 ML BAG 7 UNIT IV (07:22)
--- NOTE | 2025-08-31 07:23 | PC.NURSE ---
glucose via FS 276 @[id number]
--- NOTE | 2025-08-31 07:50 | P.HP_ITS ---
Providers/Chief Complaint 2 Admitting Physician: Dru Vivar MD Primary Care Provider: MARGE Castellano Chief Complaint: Vomiting History of Present Illness Salvatore Ott is a 30 year old male with PMHx of DM 1T, prior pancreatitis, GERD, marijuana use Patient presented to [facility] ED on 08/31/25 out of concern for DKA in the setting of persistent vomiting. Reports to have developed multiple episodes of emesis yesterday morning. Reports associated symptoms of generalized malaise, diffuse abdominal pain and constipation (last BM on day of presentation). Denies fever, chills, chest pain, shortness of breath, dizziness/lightheadedness, dysuria, and back pain. Known to have underlying DM 1T. Reports frequent DKA admissions. Uses insulin pump. States he has been compliant with insulin use. Does not know his A1c. Admits to daily tobacco use, half a pack per day and marijuana use 4 times per week. ED COURSE & WORK-UP (reviewed) Presenting VS, 08/31/25 0545 Temp 98.1F BP 144/88 HR 118 RR 20 SpO2 96% on room air Labs, 08/31/25 0550 Hemogram WBC 12.11 RBC 5.56 PLT 351 HGB 17.20 HCT 51.3 Chemistry Na 131 K 4.9 Mg 2.1 Cl 92 Ca 9.4 PO4 3.4 Glu 288 CO2 6 AG 37.9 BUN 18 Cr 1.0 eGFR 89 AST 18 ALT 19 ALP 73 T.Bili 0.3 Alb 5.3 T.Protein 8.9 VBG, 08/31/25 0634 pH 7.15 pCO2 16.7 pO2 120 HCO3 5.8 In ED received... 0556 NS 1L bolus 0604 Ondansetron 4 mg IV 0645 Insulin gtt initiated 0703 Ondansetron 4 mg IV 0703 NS 1L bous Review of Systems 2 Narrative: Constitutional: Denies fever, chills, and change in weight Denies recent illness Neurologic: Denies headache, dizziness, head injury Eyes: Denies change in vision / blurry vision ENMT: Cardiac: Denies chest pain, exertinal dyspnea, syncope Respiratory: Denies URI symptoms, cough, and wheezing Not oxygen dependent at baseline Gastrointestinal: + generalized abdominal pain, + nausea, + vomiting / dry heaving Denies melena and hematochezia. + contstipation Genitouriary: Denies change in micturition, dysuria, urinary frequency, and hematuria Denies flank pain Endocrine: + DM 1T, reports using Dexcom and insulin pump Reports adherence with insulin. Does note frequent hospitalizations for DKA. Follows with outpatient endocrinology, last seen in the past 3 months. Unable to describe overall status of his diabetic control Hematologic / Lymphatic: Denies easy bruising, bleeding Other: Admits to active tobacco use 1/2 ppd x2 years and active marijuana use (smokes) four times per week. Denies alcohol and other recreational drug use. Medications/Allergies Home Medications ?Medication ?Instructions ?Recorded ?Confirmed ?Last Taken ?Type blood sugar diagnostic #100 ea 03/20/21 08/31/25 Un known Rx blood sugar diagnostic (Blood #100 ea 03/20/21 5 Unknown Rx Glucose Test strips) blood-glucose meter (Blood Glucose #1 ea 03/20/2108/06 Unknown Rx Monitoring kit) lancets #200 ea 05/17/21 08/31/25 Un known Rx strips #200 ea 05/17/21 08/31/25 Un known Rx lancets #200 ea 06/18/21 08/31/25 Un known Rx strips #1 ea 06/18/21 08/31/25 Unkn own Rx blood-glucose sensor (Dexcom G6 #9 ea 10/18/22 5 Unknown Rx Sensor device) blood-glucose transmitter (Dexcom #3 ea 10/18/2208/31 Unknown Rx G6 Transmitter device) blood-glucose,carousel attendant,cont #1 ea 10/18/22 08/31/25 Un known Rx (Dexcom G6 Document Reviewer) insulin pump cartridge,automated #1 10/18/22 Unknown Rx dose,BT with controller subcutaneous (Omnipod 5 G6 Intro Kit (Gen 5) subcutaneous cartridge with controller) insulin pump cart,auto,BT,G6/7 #15 ea 03/14/25 5 Unknown Rx (Omnipod 5 G6-G7 Pods (Gen 5) subcutaneous cartridge) pen needle, diabetic 32 gauge x #100 ea 03/20/2508/31 Unknown Rx / (Comfort EZ Pen [place]) insulin syringes (disposable) 1 mL #500 ea 04/01/25 Unknown Rx insulin glargine 100 unit/mL (3 See Rx Instructions .R oute 04/26/25 08/31/25 05/03/25 Rx mL) subcutaneous pen (Lantus .COMPLEX #45 mL Solostar U-100 Insulin) insulin lispro 100 unit/mL See Rx Instructions .Route 07/29/25 08/31/25 Unknown Rx subcutaneous solution .COMPLEX #130 mL Allergies Allergy/AdvReac Type Severity Reaction Status Date / Time promethazine (From Phenergan) Allergy Unknown Verified 08/31/25 05:51 PFSH Acute 2 PFSH: Medical History Abdominal pain High anion gap metabolic acidosis DKA (diabetic ketoacidosis) Diabetic keto-acidosis Hyperglycemia Nausea & vomiting Noncompliance with diabetes treatment Methamphetamine abuse DKA (diabetic ketoacidoses) History of pancreatitis Long-term insulin use Hypoglycemia due to insulin Uncontrolled type 1 diabetes mellitus Pancreatitis Marijuana use GERD (gastroesophageal reflux disease) Type 1 diabetes With recurrent admissions for DKA, severe Surgical History No pertinent past surgical history Family History Other Diabetes Social History Smoking and tobacco/nicotine status: never used tobacco/nicotine Alcohol intake: never Substance/Drug Use: former Date of last use: Marijuana abuse Lives independently: Yes Household members: family Marital status: Single Current occupational status: disabled Vitals/I&O/Wt Last Vital Signs Temp 98.1 F 08/31/25 05:45 Pulse 120 H 08/31/25 07:27 Resp 24 H 08/31/25 07:27 BP 146/82 08/31/25 07:27 Pulse Ox 98 08/31/25 07:27 08/30/25 08/31/25 08/31/25 22:59 06:59 14:59 Intake Total 0 / 0 Balance 0 / 0 Weight last 48 hrs Weight 72.575 kg Physical Exam 2 Narrative: Constitutional * NAD Neurologic * Awake and alert. Oriented x3. No focal neurological deficits. Head * Normocephalic. Atraumatic. Eyes * PERRLA. EOMI. Sclera anicteric. Ears, Nose, Throat * Normal external ears. Hearing intact to normal voice. * Normal external nose. No epistaxis. * Dry MM Respiratory * Diminished breath sounds * No dyspnea at rest or with conversation. No accessory muscle use. * On room air. Heart / Cardiovascular * Tachycardic * No murmur Extremities * No edema bilaterally * Distal pulses 2+ and symmetric. No cyanosis. * Sensation intact to light touch. Abdomen / Gastrointestinal * Soft. Mild TTP around umbilicus only. Not distended. + BS. Genitourinary * No suprapubic or CVA tenderness * No lawson catheter Musculoskeletal * No gross deformities, asymmetry, swelling or muscle atrophy on observation * Full ROM in all major joints without pain * Strength 5/5 throughout in bilateral upper and lower extremities Skin / Integumentary * No rashes, lesions, petechiae / ecchymosis, ulcerations or open wounds. Other * Vascular access: pIV * Other: had insulin pump (was taken off on arrival to ED) Data 08/31/25 05:50 08/31/25 19:24 Other Labs: I have personally reviewed below listed labs that were done in ED on presentation. Labs, 08/31/25 0550 Hemogram WBC 12.11 RBC 5.56 PLT 351 HGB 17.20 HCT 51.3 Chemistry Na 131 K 4.9 Mg 2.1 Cl 92 Ca 9.4 PO4 3.4 Glu 288 CO2 6 AG 37.9 BUN 18 Cr 1.0 eGFR 89 AST 18 ALT 19 ALP 73 T.Bili 0.3 Alb 5.3 T.Protein 8.9 ABG, 08/31/25 0634 pH 7.15 pCO2 16.7 pO2 120 HCO3 5.8 A&P Assessment and plan 1. Diabetic ketoacidosis without coma associated with type 1 diabetes mellitus: 2. Nausea & vomiting: Plan: # DKA w/o coma associated with DM 1T # HAGMA Hx of DM 1T Known to have frequent hospitalizations for DKA, last 06/2025 Complicated by electrolite and metabolic abnormalities Precipitating factors Glu 288 CO2 6 AG 37.9 VBG: pH 7.15 HCO3 5.8 - Insulin gtt started in ED, continue - Glucose checks Q1H - Keep NPO. ok for ice chips and sips of water with oral meds - IVF NS at 200 ml/hr until BG >/ 250 D5 1/2 NS + 20 KCl at 125 for BG < 250 - Labs: Blood cultures x2, UA BMP, Mg, PO4 Q4H until AG closes x2, then daily CBC in am - Monitor and correct electrolyte abnormalities Electrolyte replacement orders for K, Mg, PO4 (per hospital's DKA protocol) - No need for bicarb infusion at this time, will monitor closely - Consult mask design engineer # Nausea and Vomiting - Optimize hydration. Treat underlying DKA. - Zofran 4 mg Q6H prn PDMP PDMP Reviewed: Not Reviewed Attestations 2 Medical Necessity Statement*: Admitted under status. Given complexity of patient's presentation, co-morbid conditions, and required intensity of treatment, a hospitalization exceeding two midnights is anticipated. Coding Level of Care Code 57752 Diagnoses Diabetic ketoacidosis without coma associated with type 1 diabetes mellitus E10.10 Nausea & vomiting R11.2
--- NOTE | 2025-08-31 07:58 | PC.PHAR ---
Pt has 2 insulins, 1 for his pump and 1 long acting. Last fill date and day supply entered in pharmacy notes.
--- NOTE | 2025-08-31 08:30 | PC.NURSE ---
glucose via FS 243
--- NOTE | 2025-08-31 08:35 | PC.NURSE ---
this nurse contacted Dr. Jefferson regarding orders for dextrose containing fluids per protocol; states putting in orders currently. Also requested to have pt attempt to eat and assess if vomiting. pt given water and applesauce.
[2025-08-31 09:01] LABS: Glucose Urine UA 2+ (Normal); Nitrate Urine Negative (Negative); Specific Gravity, Urine 1.023 (1.005-1.030)
--- NOTE | 2025-08-31 09:09 | PC.NURSE ---
Per Pramod Stevens, STENCIL MAKER to infuse the Dextrose 5% - sod chloride 0.45% + 20 mEq KCl instead of the sodium chlor 0.9% + KCl 20 mEq infusion d/t being double potassium order. d/t pt glucose being <250 to infuse the dextrose containing fluid
[2025-08-31 09:24] LABS: Alanine Aminotransferase 16 U/L (0-41); Albumin Level 4.7 g/dL (3.5-5.2); Alkaline Phosphatase 58 U/L (40-130); Anion Gap 31.6 (5-19); Blood Urea Nitrogen 14 mg/dL (6-20); Calcium 7.8 mg/dL (8.5-10.5); Chloride 99 mmol/L (98-107); Globulin 1.9 g/dL (1.3-4.6); Glucose 255 mg/dL (65-115); Magnesium 1.8 mg/dL (1.7-2.3); Osmolality Calculated 285 mOsm/kg (285-295); Potassium 4.6 mmol/L (3.5-5.1); Sodium 133 mmol/L (136-145); Total Protein 6.6 g/dL (6.6-8.7)
[2025-08-31 09:24] LABS: ABG PH Result 7.21 (7.35-7.45); Arterial Blood Gas Hematocrit 48.7 % (42-52); Blood Gas Operator Identificat GD; Blood Gas Sample Site Brachial, right; Blood Gas Sample Type Arterial; HCO3 ABG 7.5 mmol/L (22-26); PO2 ABG 122.0 mmHg (80.0-100.0); PO2 FiO2 Ratio Arterial Blood 580
[2025-08-31 09:25] LABS: Aspartate Amino Transferase 18 U/L (0-40)
[2025-08-31 09:26] LABS: ABG PCO2 18.6 mmHg (35-45)
[2025-08-31 09:27] LABS: Carbon Dioxide 7 mmol/L (22-29)
[2025-08-31] MEDS: heparin 5,000 unit/mL INJ 1 mL 5000 UNIT SUBCUT ×2 (09:35→20:03)
--- NOTE | 2025-08-31 09:37 | PC.NURSE ---
Unable to infuse D5-NS PRN order at this time d/t not being verified, this nurse contacted pharmacy
--- NOTE | 2025-08-31 09:38 | PC.NURSE ---
pt refusing lawson catheter at this time, states can use urinal for measurement
[2025-08-31] MEDS: D5-NS 0.45% + KCL 20 mEq 20 MEQ/1,000 ML BAG 125 MEQ IV (09:53)
--- NOTE | 2025-08-31 10:31 | PC.NURSE ---
glucose via FS 195, decreased insulin 6units per protocol
[2025-08-31] MEDS: HYDROcodone-acetaminophen 5-325 mg Tablet 1 TAB PO (11:38)
[2025-08-31 12:35] LABS: ABG PCO2 22.1 mmHg (35-45); ABG PH Result 7.23 (7.35-7.45); Arterial Blood Gas Hematocrit 46.2 % (42-52); Blood Gas Allen Test Pos; Blood Gas Operator Identificat GD; Blood Gas Sample Site Radial, right; Blood Gas Sample Type Arterial; HCO3 ABG 9.4 mmol/L (22-26); PO2 ABG 106.0 mmHg (80.0-100.0); PO2 FiO2 Ratio Arterial Blood 504
--- OUTSIDE RECORDS SUMMARY | 2025-08-31 12:50 | XMS_ITS | Clinical Summary ---
Author Organization [facility] Address [address] 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
--- OUTSIDE RECORDS SUMMARY | 2025-08-31 12:50 | XMS_ITS | Encounter Summary ---
Author Organization [facility] Address [address] [place] [address] Care Team Providers Care Edge Gluer Name Role Phone Ulisses Bui MD Primary Care Provider [phone] Encounter Details Date Type Department Care Team (Late st Contact Info) Description 11/22/2018 Ancillary Orders [facility] Pre-Registration [place] CALL TO MAKE APPOINTMENT ONLY [address] [place] [address] Dave Valera MD [address] [place] [address] Demand ischemia (CMS/HCC); Acute kidney injury; DKA [...] uncontrolled documented in this encounter Care Teams Edge Gluer Relationship Specialty Start Date End Date Ulisses Bui MD [address] [facility] [address] [phone] PCP - General Endocrinology 06/07/16 documented as of this encounter
--- OUTSIDE RECORDS SUMMARY | 2025-08-31 12:50 | XMS_ITS | Clinical Summary ---
Author Organization [facility] Address [address] [address] Phone Care Team Providers Care Union Steward Name Role Phone Ulisses Bui MD Primary [...] VACCINES (No Doses Required) Completed Insurance MEDICAID [place] MEDICARE PART A AND B Care Teams Union Steward Relationship Specialty Start Date End Date Ulisses Bui MD [address] [phone] PCP - General Endocrinology 06/07/16
--- OUTSIDE RECORDS SUMMARY | 2025-08-31 12:50 | XMS_ITS | Encounter Summary ---
Author Organization [facility] Address [address] [place] [address] Care Team Providers Care Suction Operator Name Role Phone Ulisses Bui MD Primary Care Provider [phone] Reason for Referral * CT Scan (Routine) - Closed Specialty Diagnoses / Procedures Referred By Melodie t Referred To Contact Radiology Diagnoses Demand ischemia (CMS/HCC) Procedures [facility] Dave Valera MD [address] [place] [address] Phone: tel: [facility] CT Scan [address] [place] [address] Phone: tel: fax: Referral ID Status Reason Start Date Expiration Date V isits Requested Visits Authorized [id number] Closed [facility] TO SCHEDULE ([facility]) 05/09/2019 06/08/2019 1 1 Encounter Details Date Type Department Care Team (Late st Contact Info) Description 04/12/2019 Ancillary Orders [facility] Pre-Registration [place] CALL TO MAKE APPOINTMENT ONLY [address] [place] [address] Dave Valera MD [address] [place] [address] Demand ischemia (CMS/HCC) Social History Tobacco Use [...] comparison. . Indication: This is a 24 [id number] Male with chest discomfort. Concerns for obstructive coronary artery disease.. The study is performed in an attempt to avoid an invasive procedure. Technique: Spiral acquisition during intravenous contrast administration using a 64-slice GE CT scan. Multi-planar 3-D volume-rendering reconstruction was performed using a [employer] work station. Consecutive thin slices (< 1mm) [...] comparison. . Indication: This is a 24 [id number] Male with chest discomfort. Concerns for obstructive coronary artery disease.. The study is performed in an attempt to avoid an invasive procedure. Technique: Spiral acquisition during intravenous contrast administration using a 64-slice GE CT scan. Multi-planar 3-D volume-rendering reconstruction was performed using a [employer] work station. Consecutive thin slices (< 1mm) [...] disease documented in this encounter Care Teams Suction Operator Relationship Specialty Start Date End Date Ulisses Bui MD [address] [phone] PCP - General Endocrinology 06/07/16 documented as of this encounter
--- OUTSIDE RECORDS SUMMARY | 2025-08-31 12:50 | XMS_ITS | Encounter Summary ---
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 Name Role Phone Ulisses Bui MD Primary Care Provider [phone] Reason for Referral * CT Scan (Routine) - Closed Specialty Diagnoses / Procedures Referred By Melodie t Referred To Contact Diagnoses Demand ischemia (CMS/HCC) Procedures CT CARDIAC CHEST INTERPRETATION Dave Valera MD [address] [place] [address] Phone: tel: Referral ID Status Reason Start Date Expiration Date Visits Re quested Visits Authorized [id number] Closed 05/09/2019 06/08/2020 1 1 Encounter Details Date Type Department Care Team (Late st Contact Info) Description 05/09/2019 Ancillary Orders [facility] Pre-Registration [place] CALL TO MAKE APPOINTMENT ONLY [address] [place] [id number] Dave Valera MD [address] [place] [address] Demand ischemia (CMS/HCC) Social History Tobacco Use [...] PET/CT would be recommended for further workup. [id number] Narrative 05/10/2019 6:[address] CARDIAC [...] PET/CT would be recommended for further workup. 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
[2025-08-31 13:06] LABS: Alanine Aminotransferase 14 U/L (0-41); Albumin Level 4.1 g/dL (3.5-5.2); Alkaline Phosphatase 53 U/L (40-130); Anion Gap 29.9 (5-19); Aspartate Amino Transferase 14 U/L (0-40); Blood Urea Nitrogen 12 mg/dL (6-20); Calcium 7.9 mg/dL (8.5-10.5); Chloride 97 mmol/L (98-107); Globulin 2.5 g/dL (1.3-4.6); Glucose 263 mg/dL (65-115); Magnesium 1.9 mg/dL (1.7-2.3); Osmolality Calculated 281 mOsm/kg (285-295); Potassium 3.9 mmol/L (3.5-5.1); Sodium 131 mmol/L (136-145); Total Protein 6.6 g/dL (6.6-8.7)
[2025-08-31 13:33] LABS: Carbon Dioxide 8 mmol/L (22-29)
[2025-08-31 15:48] LABS: ABG PCO2 20.8 mmHg (35-45); ABG PH Result 7.23 (7.35-7.45); Arterial Blood Gas Hematocrit 46.4 % (42-52); Blood Gas Allen Test Pos; Blood Gas Operator Identificat CAK; Blood Gas Sample Site Brachial, left; Blood Gas Sample Type Arterial; HCO3 ABG 8.7 mmol/L (22-26); PO2 ABG 84.6 mmHg (80.0-100.0); PO2 FiO2 Ratio Arterial Blood 402
[2025-08-31] MEDS: dextrose 5%-ns + KCl 20 20 MEQ/1,000 ML BAG 125 MEQ IV (15:52)
[2025-08-31 16:30] LABS: PCP Screen Urine Negative (Negative)
[2025-08-31 17:04] LABS: Base Excess VBG -14.8 mmol/L (-3.0-3.0); Blood Gas Operator Identificat GD; Blood Gas Sample Site Not specified; Blood Gas Sample Type Venous; HCO3 VBG 10.1 mmol/L (24-28); PCO2 VBG 22.4 mmHg (41-51); PO2 VBG 119.0 mmHg (25-40); Venous Blood Gas Hematocrit 48.4 % (42-52); pH VBG 7.26 (7.32-7.42)
[2025-08-31 17:44] LABS: Alanine Aminotransferase 13 U/L (0-41); Albumin Level 4.2 g/dL (3.5-5.2); Alkaline Phosphatase 56 U/L (40-130); Anion Gap 28.2 (5-19); Aspartate Amino Transferase 14 U/L (0-40); Blood Urea Nitrogen 9 mg/dL (6-20); Calcium 7.8 mg/dL (8.5-10.5); Chloride 99 mmol/L (98-107); Globulin 2.4 g/dL (1.3-4.6); Glucose 272 mg/dL (65-115); Osmolality Calculated 280 mOsm/kg (285-295); Potassium 4.2 mmol/L (3.5-5.1); Sodium 131 mmol/L (136-145); Total Protein 6.6 g/dL (6.6-8.7)
[2025-08-31 17:48] LABS: Carbon Dioxide 8 mmol/L (22-29)
--- NOTE | 2025-08-31 18:16 | PC.NURSE ---
Dr. Miller gave verbal order to turn insulin gtt to 7
[2025-08-31 19:33] LABS: ABG PCO2 27.4 mmHg (35-45); ABG PH Result 7.29 (7.35-7.45); Arterial Blood Gas Hematocrit 46.8 % (42-52); Base Excess VBG -11.7 mmol/L (-3.0-3.0); Blood Gas Operator Identificat SAM; Blood Gas Sample Type Venous; HCO3 ABG 13.2 mmol/L (22-26); HCO3 VBG 13.2 mmol/L (24-28); PCO2 VBG 27.4 mmHg (41-51); PO2 ABG 58.9 mmHg (80.0-100.0); PO2 VBG 58.9 mmHg (25-40); Venous Blood Gas Hematocrit 46.8 % (42-52); pH VBG 7.29 (7.32-7.42)
[2025-08-31 19:54] LABS: Alanine Aminotransferase 13 U/L (0-41); Albumin Level 4.0 g/dL (3.5-5.2); Anion Gap 22.8 (5-19); Aspartate Amino Transferase 12 U/L (0-40); Blood Urea Nitrogen 8 mg/dL (6-20); Calcium 7.9 mg/dL (8.5-10.5); Carbon Dioxide 12 mmol/L (22-29); Chloride 102 mmol/L (98-107); Globulin 2.2 g/dL (1.3-4.6); Glucose 225 mg/dL (65-115); Osmolality Calculated 281 mOsm/kg (285-295); Potassium 3.8 mmol/L (3.5-5.1); Sodium 133 mmol/L (136-145); Total Protein 6.2 g/dL (6.6-8.7)
[2025-08-31 20:36] LABS: Alkaline Phosphatase 52 U/L (40-130)
--- NOTE | 2025-08-31 20:53 | PC.NURSE ---
Dr. Miller called regarding insulin drip. Informed that insulin drip was decreased to [address] Miller ordered to turn insulin drip back up to 7 unit/hour and increase dextrose fluids to 150ml/hr. Orders for next check if 150 or below turn insulin drip down to 5 and if below 200 turn dextrose fluids up to 200ml/hr.
[2025-08-31] MEDS: dextrose 5%-ns + KCl 20 20 MEQ/1,000 ML BAG 150 MEQ IV (22:48)
--- NOTE | 2025-08-31 23:03 | P.MISC_ITS ---
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 Therefore patient had his hyperglycemia and presented to ER with nausea and vomiting and found to have DKA Note: General: Alert and oriented, lying comfortably without any distress, having dry oral mucosa HEENT: Normocephalic, atraumatic, grossly unremarkable exam Cardio: normal rate rhythm, normal S1-S2 without any murmurs, rubs, or gallops and JVD normal Respiratory: normal vascular breathing on auscultation without any wheezes, stridor, rhonchi GI: Abdomen soft, nontender, nondistended, normoactive bowel sounds present all 4 quadrants, Neuro: intact cranial nerves motor and sensory and cerebellar/coordination function without any focal neurological deficit Behavior: Appropriate and cooperative Extremities: Adequate palpable pulses, no edema or cyanosis observed Skin: Dry oral mucosa Plan: Insulin infusion to be titrated with 0.1 units/kg/h as per recommendation and then to follow-up with blood glucose, sodium levels, potassium levels, and Q4 anion gap and pH in order to titrate the fluids including dextrose water, potassium supplementation, insulin titration and normal saline infusion Continue monitoring under ICU with frequent labs and hourly blood glucose Telemetry monitoring
--- NOTE | 2025-08-31 23:10 | PC.NURSE ---
Dr. Cruz called regarding insulin drip, informed that protocol says to drop insulin drip from 7unit/hr to 1 unit/hr and that dextrose fluids is running at 200ml/hr. Dr. Cruz stated to reduce insulin drip down to 3.5unit/hr.
[2025-09-01] VITALS (20 sets, daily range): BP systolic 106–127; BP diastolic 69–89; PULSE 78–101; RESP 14–30; TEMP 36.8; O2SAT 96–100
--- NOTE | 2025-09-01 00:04 | PC.NURSE ---
Blood sugar [address] Cruz to keep insulin drip at 3.5.
[2025-09-01 00:30] LABS: Base Excess VBG -6.4 mmol/L (-3.0-3.0); Blood Gas Operator Identificat SAM; HCO3 VBG 17.1 mmol/L (24-28); PCO2 VBG 28.1 mmHg (41-51); PO2 VBG 170.0 mmHg (25-40); Venous Blood Gas Hematocrit 43.5 % (42-52); pH VBG 7.39 (7.32-7.42)
[2025-09-01 00:32] LABS: Blood Gas Sample Type Venous
--- NOTE | 2025-09-01 01:01 | PC.NURSE ---
Blood sugar 178, verbal order from Dr. Cruz to keep insulin drip at 178 while labs are still pending.
[2025-09-01 01:48] LABS: Alanine Aminotransferase 12 U/L (0-41); Albumin Level 3.9 g/dL (3.5-5.2); Alkaline Phosphatase 49 U/L (40-130); Anion Gap 20.1 (5-19); Aspartate Amino Transferase 12 U/L (0-40); Blood Urea Nitrogen 6 mg/dL (6-20); Calcium 8.3 mg/dL (8.5-10.5); Carbon Dioxide 15 mmol/L (22-29); Chloride 105 mmol/L (98-107); Globulin 2.1 g/dL (1.3-4.6); Glucose 189 mg/dL (65-115); Osmolality Calculated 285 mOsm/kg (285-295); Potassium 4.1 mmol/L (3.5-5.1); Sodium 136 mmol/L (136-145); Total Protein 6.0 g/dL (6.6-8.7)
--- NOTE | 2025-09-01 02:16 | PC.NURSE ---
Blood sugar 216, protocol says to keep insulin drip the same. Dr. Cruz gave orders to increase insulin drip to 7unit/hour.
--- NOTE | 2025-09-01 03:21 | PC.NURSE ---
Blood sugar 166; downward change. Dr. Cruz stated to go by the protocol which says to turn down to 1unit/hr.
[2025-09-01 03:58] LABS: Base Excess VBG -4.8 mmol/L (-3.0-3.0); Blood Gas Operator Identificat SAM; Blood Gas Sample Type Venous; HCO3 VBG 19.1 mmol/L (24-28); PCO2 VBG 31.8 mmHg (41-51); PO2 VBG 79.6 mmHg (25-40); Venous Blood Gas Hematocrit 45.9 % (42-52); pH VBG 7.39 (7.32-7.42)
[2025-09-01] MEDS: pantoprazole 40 mg SDV IVP (04:13)
[2025-09-01] MEDS: dextrose 5%-ns + KCl 20 20 MEQ/1,000 ML BAG 200 MEQ IV (04:13)
[2025-09-01 04:30] LABS: Alanine Aminotransferase 9 U/L (0-41); Albumin Level 3.8 g/dL (3.5-5.2); Alkaline Phosphatase 47 U/L (40-130); Anion Gap 16.7 (5-19); Aspartate Amino Transferase 12 U/L (0-40); Blood Urea Nitrogen 5 mg/dL (6-20); Calcium 8.1 mg/dL (8.5-10.5); Carbon Dioxide 18 mmol/L (22-29); Chloride 106 mmol/L (98-107); Globulin 2.1 g/dL (1.3-4.6); Glucose 173 mg/dL (65-115); Osmolality Calculated 285 mOsm/kg (285-295); Potassium 3.7 mmol/L (3.5-5.1); Sodium 137 mmol/L (136-145); Total Protein 5.9 g/dL (6.6-8.7)
[2025-09-01 04:53] LABS: Magnesium 2.0 mg/dL (1.7-2.3)
--- NOTE | 2025-09-01 04:53 | PC.NURSE ---
Dr. Cruz placed orders for lantus to transition patient off insulin drip 2 hr after admin.
--- NOTE | 2025-09-01 05:15 | PC.NURSE ---
Order received from Dr. Cruz to decrease dextrose fluids to 100ml/hr
[2025-09-01] MEDS: insulin glargine 100 units/1 mL 35 UNIT SUBCUT (05:21)
[2025-09-01 07:47] LABS: Base Excess VBG -9.0 mmol/L (-3.0-3.0); HCO3 VBG 17.0 mmol/L (24-28); PCO2 VBG 36.4 mmHg (41-51); PO2 VBG 52.8 mmHg (25-40); Venous Blood Gas Hematocrit 46.8 % (42-52); pH VBG 7.28 (7.32-7.42)
[2025-09-01 07:48] LABS: Blood Gas Operator Identificat CAK
[2025-09-01 07:49] LABS: Blood Gas Allen Test Pos; Blood Gas Sample Type Arterial
[2025-09-01 07:50] LABS: Alanine Aminotransferase 12 U/L (0-41); Albumin Level 3.8 g/dL (3.5-5.2); Alkaline Phosphatase 47 U/L (40-130); Anion Gap 23.7 (5-19); Aspartate Amino Transferase 13 U/L (0-40); Blood Urea Nitrogen 4 mg/dL (6-20); Calcium 8.3 mg/dL (8.5-10.5); Carbon Dioxide 15 mmol/L (22-29); Chloride 100 mmol/L (98-107); Globulin 2.0 g/dL (1.3-4.6); Glucose 229 mg/dL (65-115); Osmolality Calculated 284 mOsm/kg (285-295); Potassium 3.7 mmol/L (3.5-5.1); Sodium 135 mmol/L (136-145); Total Protein 5.8 g/dL (6.6-8.7)
--- NOTE | 2025-09-01 09:09 | PC.NURSE ---
Patient put cotton stripper light and stated that his ride was here and he was leaving AMA. This nurse educated patient on DKA and the importance of the insulin gtt and compliance but the patient decided he still wanted to leave ama. AMA form was signed and patient stated that he was not going to wait for the doctor to come and speak with him. He left at 0905.
--- NOTE | 2025-09-01 15:40 | P.DS_ITS ---
Discharge Providers Date of Admission: 08/31/25 06:37 Date of Discharge: September 01, 2025 Attending Provider at Admission: Dru Vivar MD Attending Provider at Discharge: Rajeev Miller MD Primary Care Provider: MARGE Castellano Diagnoses at Discharge Discharge Diagnosis 1. Diabetic ketoacidosis without coma associated with type 1 diabetes mellitus: 2. Nausea & vomiting: Reason for Visit Reason for Visit: Vomiting Brief History: As per the admitting physician had retrospective notes review: Salvatore Ott is a 30 year old male with PMHx of DM 1T, prior pancreatitis, GERD, marijuana use Patient presented to [facility] ED on 08/31/25 out of concern for DKA in the setting of persistent vomiting. Reports to have developed multiple episodes of emesis yesterday morning. Reports associated symptoms of generalized malaise, diffuse abdominal pain and constipation (last BM on day of presentation). Denies fever, chills, chest pain, shortness of breath, dizziness/lightheadedness, dysuria, and back pain. Known to have underlying DM 1T. Reports frequent DKA admissions. Uses insulin pump. States he has been compliant with insulin use. Does not know his A1c. Admits to daily tobacco use, half a pack per day and marijuana use 4 times per week. ED COURSE & WORK-UP (reviewed) Presenting VS, 08/31/25 0545 Temp 98.1F BP 144/88 HR 118 RR 20 SpO2 96% on room air Labs, 08/31/25 0550 HemogramWBC 12.11 RBC 5.56 PLT 351 HGB 17.20 HCT 51.3 ChemistryNa 131 K 4.9 Mg 2.1 Cl 92 Ca 9.4 PO4 3.4 Glu 288 CO2 6 AG 37.9 BUN 18 Cr 1.0 eGFR 89 AST 18 ALT 19 ALP 73 T.Bili 0.3 Alb 5.3 T.Protein 8.9 VBG, 08/31/25 0634 pH 7.15 pCO2 16.7 pO2 120 HCO3 5.8 In ED received... 0556 NS 1L bolus 0604 Ondansetron 4 mg IV 0645 Insulin gtt initiated 0703 Ondansetron 4 mg IV 0703 NS 1L bous Hospital Course Hospital Course Patient was admitted under ICU due to high anion gap and low bicarb. The patient received bicarb boluses. I reviewed patient's history and also further took the history from the patient who explained that he is compliant to his medicines since he is on insulin pump and lately his insulin pump was not working properly and he could not get his endocrinology appointment since the senior corporate strategy manager was on vacation. There was no element of infectious causes in the history and clinical examination was also unremarkable. He was admitted as a case of severe DKA and received bicarb boluses with management of DKA as per protocol weight based insulin regimen. The patient over 24 hours of admission improved significantly with closing of anion gap in the morning. And he was switched to insulin regimen accordingly to the protocol. In the morning the patient was feeling better however he left AMA and I was called to see the patient as he was trying to leave. But before I could go to the patient he was already left and did not prefer to stay in the hospital. As per the nurse who further elaborated that he has been informed about leaving AGAINST MEDICAL ADVICE and all the risk and benefits: It was explained to the patient that the recommended standard medical care inclusive of [e.g., hospitalization, medications, further diagnostic evaluation] carries potential benefits and risks. Also emphasized the potential consequences of premature self-discharge, including clinical deterioration, incomplete treatment, and risk of serious or life-threatening complications.? ?available alternatives with the patient were reviewed, including [e.g., continued observation, admission, outpatient follow-up, medication adherence], and underscored the reasons these would better support health outcomes.? ?The patient acknowledges understanding this discussion and nonetheless declines to continue with medical management at this time.? ?The patient acknowledges comprehension that leaving against medical advice may result in harm, including worsening of the condition and/or other adverse outcomes, and agrees to assume responsibility for that decision.? ?A safe discharge plan was offered with leaving the against AMA, with instructions to seek urgent care if symptoms worsen or new symptoms arise.? ?The patient was encouraged to reconsider and expressed willingness to provide care if they change their mind.? Physical Exam Narrative: Patient left AMA and did not wait to be seen by the doctor. The nurse tried to make the patient understand to be examined before leaving however the patient preferred to leave without being examined or seen. Discharge Data Studies Completed and Pending Pending at discharge Category Date Time Status Arterial Blood Gas W/O Coox Q4H Lab 08/31/25 19:24 Results Blood Culture Stat Lab 08/31/25 12:34 Results VBG [Venous Blood Gas] Q4H Lab 08/31/25 19:24 Results VBG [Venous Blood Gas] Q4H Lab 09/01/25 03:44 Results Laboratory Results WBC 12.11 10^3/uL (3.29-11.43) H 08/31/25 05:50 RBC 5.56 10^6/uL (3.85-5.65) 08/31/25 05:50 Hgb 17.20 g/dL (11.27-16.99) H 08/31/25 05:50 Hct 51.3 % (37-53) 08/31/25 05:50 MCV 92.3 fl (82-101) 08/31/25 05:50 MCH 30.9 pg (27-33) 08/31/25 05:50 MCHC 33.5 g/dL (30-55) 08/31/25 05:50 RDW 12.4 % (12.1-15.1) 08/31/25 05:50 Plt Count 351 10^3/cmm (157-399) 08/31/25 05:50 MPV 9.6 fL (7.4-10.4) 08/31/25 05:50 Neut % (Auto) 90.2 % 08/31/25 05:50 Lymph % (Auto) 5.9 % 08/31/25 05:50 [place] % (Auto) 2.2 % 08/31/25 05:50 Eos % (Auto) 0.0 % 08/31/25 05:50 Baso % (Auto) 0.4 % 08/31/25 05:50 Neut # (Auto) 10.92 10^3/uL (1.8-7.7) H 08/31/25 05:50 Lymph # (Auto) 0.7 10^3/uL (0.8-4.8) L 08/31/25 05:50 [place] # (Auto) 0.3 10^3/uL (0.2-0.9) 08/31/25 05:50 Eos # (Auto) 0.0 10^3/uL (0.0-0.8) 08/31/25 05:50 Baso # (Auto) 0.1 10^3/uL (0.0-0.1) 08/31/25 05:50 Nucleated RBC % (auto) 0 % 08/31/25 05:50 Nucleated RBCs # 0.0 /100WBC 08/31/25 05:50 Specimen Type Arterial 09/01/25 07:35 Sample Site Not Reportable 09/01/25 07:35 ABG pH 7.29 (7.35-7.45) L 08/31/25 19:24 ABG pCO2 27.4 mmHg (35-45) L 08/31/25 19:24 ABG pO2 58.9 mmHg (80.0-100.0) L 08/31/25 19:24 ABG PO2/FiO2 Ratio 402 08/31/25 15:36 ABG HCO3 13.2 mmol/L (22-26) L 08/31/25 19:24 ABG Base Excess -11.7 mmol/L (-2.0-2.0) L 08/31/25 19:24 Hasmukh Test Pos 09/01/25 07:35 VBG pH 7.28 (7.32-7.42) L 09/01/25 07:35 VBG pCO2 36.4 mmHg (41-51) L 09/01/25 07:35 VBG pO2 52.8 mmHg (25-40) H 09/01/25 07:35 VBG HCO3 17.0 mmol/L (24-28) L 09/01/25 07:35 VBG Base Excess -9.0 mmol/L (-3.0-3.0) L 09/01/25 07:35 VBG Hematocrit 46.8 % (42-52) 09/01/25 07:35 Hematocrit 46.8 % (42-52) 08/31/25 19:24 Hgb O2 Saturation 97.5 % (95-100) 08/31/25 06:34 Carboxyhemoglobin 1.0 %THgb (0.4-20.1) 08/31/25 06:34 Methemoglobin 0.2 % (0.4-1.5) L 08/31/25 06:34 Total Hemoglobin 16.1 g/dL (14-18) 08/31/25 06:34 O2 Delivery Device None 09/01/25 07:35 FiO2 21.0 % 08/31/25 16:55 Turkey Cleaner ID Cak 09/01/25 07:35 Sodium 135 mmol/L (136-145) L 09/01/25 07:07 Potassium 3.7 mmol/L (3.5-5.1) 09/01/25 07:07 Chloride 100 mmol/L (98-107) 09/01/25 07:07 Carbon Dioxide 15 mmol/L (22-29) L 09/01/25 07:07 Anion Gap 23.7 (5-19) H 09/01/25 07:07 BUN 4 mg/dL (6-20) L 09/01/25 07:07 Creatinine 0.6 mg/dL (0.7-1.2) L 09/01/25 07:07 GFR Calculation 160.4 mL/min (90-130) H 09/01/25 07:07 Glucose 229 mg/dL (65-115) H 09/01/25 07:07 POC Glucose 198 mg/dL (70-110) H 09/01/25 07:15 Calculated Osmolality 284 mOsm/kg (285-295) L 09/01/25 07:07 Calcium 8.3 mg/dL (8.5-10.5) L 09/01/25 07:07 Phosphorus 1.2 mg/dL (2.5-4.5) L D 09/01/25 03:44 Magnesium 2.0 mg/dL (1.7-2.3) 09/01/25 03:44 Total Bilirubin 0.5 mg/dL (0.15-1.2) 09/01/25 07:07 AST 13 U/L (0-40) 09/01/25 07:07 ALT 12 U/L (0-41) 09/01/25 07:07 Alkaline Phosphatase 47 U/L (40-130) 09/01/25 07:07 Total Protein 5.8 g/dL (6.6-8.7) L 09/01/25 07:07 Albumin 3.8 g/dL (3.5-5.2) 09/01/25 07:07 Globulin 2.0 g/dL (1.3-4.6) 09/01/25 07:07 Urine Color Yellow (Yellow) 08/31/25 08:48 Urine Appearance Clear (CLEAR) 08/31/25 08:48 Urine pH 5.0 (5-7) 08/31/25 08:48 Ur Specific [place] 1.023 (1.005-1.030) 08/31/25 08:48 Urine Protein 2+ (Negative) A 08/31/25 08:48 Urine Glucose (UA) 2+ (Normal) H 08/31/25 08:48 Urine Ketones 4+ (Negative) 08/31/25 08:48 Urine Blood Trace (Negative) A 08/31/25 08:48 Urine Nitrate Negative (Negative) 08/31/25 08:48 Urine Bilirubin Negative (Negative) 08/31/25 08:48 Urine Urobilinogen 0.2 mg/dL (Negative) 08/31/25 08:48 Ur Leukocyte Esterase Negative (Negative) 08/31/25 08:48 Urine RBC 0-2 /hpf (0-2) 08/31/25 08:48 Urine WBC 0-5 /hpf (0-5) 08/31/25 08:48 Ur Squamous Epith Cells 0-5 /hpf (0-5) 08/31/25 08:48 Amorphous Sediment Not Reportable 08/31/25 08:48 Urine Bacteria None seen /hpf (NONE) 08/31/25 08:48 Hyaline Casts 5.36 /lpf 08/31/25 08:48 Urine Opiates Screen Negative ng/mL (Negative) 08/31/25 08:48 Ur Barbiturates Screen Negative ng/mL (Negative) 08/31/25 08:48 Ur Phencyclidine Scrn Negative ng/mL (Negative) 08/31/25 08:48 Ur Amphetamines Screen Negative ng/mL (Negative) 08/31/25 08:48 U Benzodiazepines Scrn Negative ng/mL (Negative) 08/31/25 08:48 Urine Cocaine Screen Negative ng/mL (Negative) 08/31/25 08:48 U Marijuana (THC) Screen Positive ng/mL (Negative) H 08/31/25 08:48 Vitals Last Vital Signs Temp 98.2 F 09/01/25 04:55 Pulse 87 09/01/25 08:30 Resp 16 09/01/25 08:30 BP 127/76 09/01/25 08:30 Pulse Ox 99 09/01/25 08:30 Discharge Plan Discharge Patient Disposition: Left Against Medical Advice Condition: Stable Prescriptions: No Action (DME) pen needle, diabetic [Comfort EZ Pen [place]] 32 gauge x 3/16 needle See Rx Instructions .Route Qty: 100 0RF Rx Instructions: As directed (DME) Omnipod 5 G6 Intro Kit (Gen 5) Cartridge See Rx Instructions .ROUTE .MEDSUPPLY Qty: 1 0RF Rx Instructions: As directed (DME) Dexcom G6 Degreasing Wheel Operator Misc See Rx Instructions .ROUTE .MEDSUPPLY Qty: 1 0RF Rx Instructions: takes blood sugar (DME) Dexcom G6 Sensor Device See Rx Instructions .ROUTE .MEDSUPPLY Qty: 9 3RF Rx Instructions: Change every 10 days (DME) Dexcom G6 Transmitter Device See Rx Instructions .ROUTE .MEDSUPPLY Qty: 3 3RF Rx Instructions: change every 90 days (DME) strips See Rx Instructions .Route .MEDSUPPLY Qty: 1 3RF Rx Instructions: Check blood sugars 3 times daily, with meals, #200, 3 refills (DME) lancets Misc See Rx Instructions .Route Qty: 200 3RF Rx Instructions: check BS, TID with meals (DME) Omnipod 5 G6-G7 Pods (Gen 5) Cartridge See Rx Instructions .ROUTE .COMPLEX Qty: 15 0RF Dose Instruction: CHANGE POD EVERY 3 DAYS NEEDS APPOINTMENT FOR FURTHER REFILLS Rx Instructions: CHANGE POD EVERY 3 DAYS NEEDS APPOINTMENT FOR FURTHER REFILLS (DME) insulin syringes (disposable) 1 mL syringe See Rx Instructions .ROUTE .MEDSUPPLY Qty: 500 3RF Rx Instructions: use syringe to inject insulin six times a day insulin glargine [Lantus Solostar U-100 Insulin] 100 unit/mL (3 mL) insulin pen See Rx Instructions .ROUTE .COMPLEX Qty: 45 0RF Dose Instruction: INJECT 35 UNITS SUBCUTANEOUSLY ONCE DAILY Rx Instructions: INJECT 35 UNITS SUBCUTANEOUSLY ONCE DAILY insulin lispro 100 unit/mL solution See Rx Instructions .ROUTE .COMPLEX Qty: 130 0RF Dose Instruction: USE 150 UNITS VIA INSULIN PUMP DAILY Rx Instructions: USE 150 UNITS VIA INSULIN PUMP DAILY (DME) blood sugar diagnostic Strip See Rx Instructions .Route Qty: 100 0RF Rx Instructions: As directed (DME) Blood Glucose Test Strip See Rx Instructions .Route Qty: 100 0RF Rx Instructions: As directed (DME) blood-glucose meter [Blood Glucose Monitoring] Kit See Rx Instructions .Route Qty: 1 0RF Rx Instructions: As directed (DME) strips See Rx Instructions .Route .MEDSUPPLY Qty: 200 3RF Rx Instructions: Check blood sugars 3 times daily, before meals (DME) lancets See Rx Instructions .Route .MEDSUPPLY Qty: 200 1RF Rx Instructions: Check blood sugars 3 times daily, before meals Referrals: Earlene Titus FNP-C [Primary Care Provider, Family Practice] Discharge Attestations Time Spent in Discharge Care*: greater than 30 min Specific Discharge Activities: educating patient, educating and/or supporting family/caregiver, discussing with pcp/other providers, discussing with pillowcase cleaner/social workers/dc planners, documenting/other paperwork and evaluating patient/reviewing data Status at Discharge: Cognitive status at discharge: cognitively intact , Behavioral status at discharge: cooperative , Functional status at discharge: independent ambulation , Overall status at discharge: patient is progressing back to baseline Quality Metrics Clinical Quality Measures [ No reported AMI, CVA or VTE this stay] Coding Level of Care Code Critical Care >/= 30 minutes Diagnoses Diabetic ketoacidosis without coma associated with type 1 diabetes mellitus E10.10 Nausea & vomiting R11.2
== END 2025-09-01 09:05 | disposition left against medical advice (07) | DRG 639 ==
LOC: ER 07:14 → ER IP 07:52 → ICU 12:49
PROVIDERS: Family Medicine; Nurse Practitioner Gerontology; Admitting Provider Family Medicine; Emergency Provider Emergency Medicine; PCP Nurse Practitioner Family; Visit Provider Student in an Organized Health Care Education/Training Program
DX: E10.10 Type 1 diabetes mellitus with ketoacidosis without coma (principal); F17.210 Nicotine dependence, cigarettes, uncomplicated; R11.2 Nausea with vomiting, unspecified; K21.9 Gastro-esophageal reflux disease without esophagitis; K59.00 Constipation, unspecified; F12.90 Cannabis use, unspecified, uncomplicated; Z79.4 Long term (current) use of insulin; Z96.41 Presence of insulin pump (external) (internal)
CPT/HCPCS: 36415; 36416; 36600; 80053; 80306; 81001; 82803; 82805; 82962; 83735; 84100; 85025; 87040; 96365; 96366; 96367; 96372; 96375; 99285; J1644; J1815; J2405; J2470; J3480; J7030; J9999